=== PATIENT | male | born 1950 | race Caucasian/White ===

== ENCOUNTER 2017-01-27 11:15 | Inpatient (IN) | payer OTHER ==
[~2017-01-27] VITALS: Ht 172.7 cm; Wt 95.0 kg
[2017-01-27 11:05] VITALS: BP_SYST 64; BP_SYST 78; BP_SYST 92; BP_DIAS 46; BP_DIAS 58; O2SAT 94
[~2017-01-27 11:15] MED LIST: ASCO1CAP3 PO; ASPI81TA28 PO; CHOL1TAB4 PO; COEN1CAP7 PO; CYAN100048 PO; FLAX100019 PO; FLVHFA110; HYT/2 PO; INDO75CA2 PO; LISI-461 PO; MAGN250T8 PO; METO25TA56 PO; NRV/10 PO; NTRGSL/4 UT; NXM/40 PO; OMEG10007 PO; ROSU40TA PO; SERT-234 PO; TERA5CAP PO; Tumeric PO; VITACAP37 PO
[2017-01-27] MEDS ORDERED: SODIUM CHLORIDE 0.9% 1000ML 1,000 ML IV STA ×2 (11:42→12:17)
[2017-01-27] MEDS ORDERED: CYAN10005 PO (11:50)
[2017-01-27] MEDS ORDERED: ISOS30TA35 PO (11:50)
[2017-01-27] MEDS ORDERED: PLV75 PO (11:50)
[2017-01-27] MEDS ORDERED: CHOL1TAB42 PO (11:50)
[2017-01-27] MEDS ORDERED: INDO-24 PO (11:52)
--- NOTE | 2017-01-27 12:07 | DIAGNOSTIC IMAGING REPORT ---
CHEST ONE VIEW PORTABLE CLINICAL HISTORY: EVALUATE WEAKNESS dyspnea COMPARISON STUDY: 11/17/2014 FINDINGS: Prior median sternotomy. Diaphragms are smooth. Lungs are clear. Several old right-sided rib fractures. IMPRESSION: No acute process. Electronically signed by: Scott Beverly M.D. 01/27/2017 12:06 PM Dictated Date/Time: 01/27/2017 12:06 PM
[2017-01-27] MEDS ORDERED: SODIUM CHLORIDE 0.9% 250ML 250 ML IV STA (12:17)
[2017-01-27 12:29] LABS: BASO % 0.6 %; BASO ABS # 0.03 K/uL (0-0.2); COMPLETE YES; EOS % 1.6 %; HEMATOCRIT 39.1 % (42-52); IG% 0.2 %; LYMPH ABS # 0.59 K/uL (1.2-3.4); MEAN CELL VOLUME 90.9 fL (80-100); MEAN CORPUSCULAR HEMOGLOBIN 31.2 pg (25-34); MEAN CORPUSCULAR HGB CONC 34.3 g/dl (32-36); MEAN PLATELET VOLUME 9.8 fL (7.4-10.4); MONO % 6.5 %; NEUT % 79.1 %; PLATELET COUNT 102 K/uL (130-400)
[2017-01-27 12:40] LABS: URINE APPEARANCE CLEAR (CLEAR); URINE COLOR DK YELLOW; URINE EPITHELIAL CELL AUTO >30 /lpf (0-5); URINE NITRITE NEG (NEG); URINE SPECIFIC GRAVITY 1.022 (1.000-1.030); UROBILINOGEN NEG (NEG)
[2017-01-27 12:47] LABS: ALT/SGPT 34 U/L (12-78); AST/SGOT 24 U/L (15-37); BLOOD UREA NITROGEN 24 mg/dl (7-18); BUN/CREATININE RATIO 14.8 (10-20); CALCIUM 8.7 mg/dl (8.5-10.1); CARBON DIOXIDE 27 mmol/L (21-32); CHLORIDE 108 mmol/L (98-107); GLUCOSE 83 mg/dl (70-99); MAGNESIUM 2.7 mg/dl (1.8-2.4); POTASSIUM 4.9 mmol/L (3.5-5.1); SODIUM 142 mmol/L (136-145)
[2017-01-27 12:57] LABS: ALKALINE PHOSPHATASE 44 U/L (45-117); CKMB/CK RATIO 1.5 (0-3.0); THYROID STIMULATING HORMONE 0.997 uIu/ml (0.300-4.500)
[2017-01-27 12:58] LABS: URINE BILIRUBIN 1+ (NEG)
[2017-01-27 12:59] LABS: MANUAL MICROSCOPIC REQUIRED? NO; REVIEW REQ? YES
[2017-01-27 13:05] LABS: URINE PATH CASTS 1-5 GRANULAR CASTS /lpf (0)
[2017-01-27 13:15] LABS: INR 0.9 (0.9-1.1); PARTIAL THROMBOPLASTIN RATIO 0.9
[2017-01-27] MEDS ORDERED: SODIUM CHLORIDE 0.9% 1000ML 1,000 ML IV SCH (15:15)
[2017-01-27] MEDS ORDERED: ONDANSETRON INJ 2 MG/ML 2 ML VIAL IV PRN (15:15)
[2017-01-27] MEDS ORDERED: NITROGLYCERIN 0.4 MG SL PER TAB CHARGE SL PRN (15:15)
[2017-01-27] MEDS ORDERED: ACETAMINOPHEN 325 MG TAB PO PRN (15:15)
[2017-01-27 17:20] VITALS: BP 137/81; PULSE 57; TEMP 36.4; O2SAT 95; Ht 172.7 cm; Wt 95.0 kg
--- NOTE | 2017-01-27 17:32 | History and Physical ---
History & Physical Date & Time of Service: Jan 27, 2017 ~ 14:45 Chief Complaint: Almost Passed Out, Chest Pain Primary Care Physician: Miguel Suarez M.D. History of Present Illness 66 year old male who presents to the ER with a near syncopal event and chest pain that occurred at cardiac rehab. Patient has history of CAD with CABG x 5 in 1992, more recently patient underwent PRESTON to SVG 09/2016. He unfortunately has continued to have angina. He underwent a repeat cath 10/2016 and no lesions were amenable to intervention and medical management was advised. Patient has been attending cardiac rehab. He reports episodes of exertional chest pain daily and at cardiac rehab. He reports angina with minimal exertion. It usually improves with rest however he does report to using nitro on an almost daily basis. He reports the pain is located on the right side of his chest. Intensity is usually #5/10. He describes it as an ache. He denies any radiation of the pain. He denies any associated shortness of breath, nausea, or diaphposis. But he does note worsening exertional shortness of breath over the past several months. He denies orthopnea or lower extremity edema. Patient also has frequent near syncopal events after standing. Today while at cardiac rehab, patient does reports to getting angina while walking on the treadmill however once he rested the pain resolved. He then started using the stationary bike and when he stood up and reports he felt very lightheaded like he was going to pass out. BP was taken and was reported to be low. He was then referred to the ER for further evaluation. Aside from the aforementioned complaints, patient reports he otherwise has been feeling well. He denies fever and chills. No abdominal pain, vomiting, or diarrhea. No urinary symptoms. In the ER, patient's initial BP was 92/58 and 78/ 46 with standing. BPs improved with IVF. Patient is also noted to be bradycardic in the high 40s-50s. Creat is 1.6 (normal baseline). Initial troponin is negative, EKG does not show any acute ST changes. Past Medical/Surgical History Medical Problems: (1) Alcohol abuse Status: Chronic (2) BPH (benign prostatic hyperplasia) Status: Chronic (3) CAD (coronary artery disease) Permanent Comment: 1992 - CABG x 5 09/2016 - PRESTON to SVG of 10/2016 - repeat cath, no lesions amenable to intervention, medical management recommended Status: Chronic (4) Dyslipidemia Status: Chronic (5) GERD (gastroesophageal reflux disease) Status: Chronic (6) Gout Status: Chronic (7) HTN (hypertension) Status: Chronic (8) TIA (transient ischemic attack) Status: Chronic Surgical Problems: (1) H/O arthroscopic knee surgery Status: Chronic (2) H/O toe surgery Status: Chronic (3) History of carpal tunnel surgery Status: Chronic (4) History of partial colectomy Status: Chronic (5) History of tonsillectomy and adenoidectomy Status: Chronic Social History Smoking Status: Former Smoker Alcohol Use: 3-4 drinks/day Immunizations History of Influenza Vaccine: Yes Influenza Vaccine Date: Jun 19, 2015 History of Tetanus Vaccine?: Yes Tetanus Immunization Date: Aug 03, 2013 History of Pneumococcal: Yes Pneumococcal Date: Oct 29, 2015 Multi-Drug Resistant Organisms History of MDRO: No Allergies Coded Allergies: Iodinated Diagnostic Agents (Verified Allergy, Severe, ANAPHYLAXIS, ) noted from 09/25/13 Allopurinol (Unverified Adverse Reaction, Severe, SORE JOINTS, 01/27/17) Home Medications Scheduled Amlodipine Besylate (Amlodipine Besylate), 5 MG PO DAILY Ascorbic Acid (Vitamin C), 500 MG PO DAILY Aspirin (Aspirin Ec), 81 MG PO DAILY Cholecalciferol (Vitamin D), 5,000 UNITS PO DAILY Clopidogrel Bisulfate (Clopidogrel), 75 MG PO DAILY Coenzyme Q10 (Ubidecarenone) (Coq10), 1 TABLET PO DAILY Cyanocobalamin (Vitamin B-12), 1,000 MCG PO DAILY Esomeprazole Magnesium (Nexium), 40 MG PO Q2D Fish Oil ([place]-3), 1 CAP PO DAILY Flaxseed (Linseed) (Flaxseed Oil 1000 mg), 1 TAB PO DAILY Indomethacin (Indocin), 50 MG PO DAILY Isosorbide Mononitrate Ext Rel (Imdur Ext Rel), 30 MG PO DAILY Lisinopril (Zestril), 5 MG PO DAILY Magnesium Oxide (Mg Supplement (Magnesium), 250 MG PO DAILY Metoprolol Tartrate (Lopressor) (Lopressor), 25 MG PO BID Nitroglycerin (Nitrostat), 0.4 MG UT PRN Rosuvastatin Calcium (Crestor), 40 MG PO Sertraline (Zoloft), 150 MG PO DAILY Terazosin Hcl (Hytrin), 5 MG PO DAILY Vitamin E (E-400), 1 TAB PO DAILY [Tumeric], 500 MG PO DAILY Review of Systems Constitutional- no fever; no weight loss Eyes- no acute visual changes ENT- no sinus drainage; no pharyngitis Pulmonary- no cough, no wheezing, no shortness of breath Cardiac- (+) as noted above GI- no nausea, no vomiting, no diarrhea, no melena, no hematochezia - no dysuria, no hematuria Musculoskeletal- no arthralgias, no myalgias Derm- no rashes, no new skin lesions, no changing skin lesions Hematologic- no unusual bruising, no unusual bleeding Lymphatics- no adenopathy Endocrine- no polyuria or polydipsia; no heat or cold intolerance Neuro- no headaches, no focal neurologic symptoms Psych- no anxiety, no depression Physical Exam Vital Signs Date Time Temp Pulse Resp B/P (MAP) Pulse Ox O2 Delivery O2 Flow Rate FiO2 01/27/17 15:53 36.6 50 17 147/91 90 01/27/17 15:31 147/91 01/27/17 15:30 17 90 01/27/17 15:22 50 18 144/91 95 Room Air 01/27/17 15:21 144/91 01/27/17 15:00 51 16 98 01/27/17 14:55 47 14 95 01/27/17 14:50 50 17 95 01/27/17 14:45 51 14 95 01/27/17 14:40 49 12 96 01/27/17 14:35 48 16 95 01/27/17 14:30 51 19 123/85 95 01/27/17 14:25 52 19 94 01/27/17 14:20 49 20 95 01/27/17 14:15 49 24 92 01/27/17 14:10 49 20 97 01/27/17 14:05 48 16 96 01/27/17 14:00 51 16 95 01/27/17 13:55 53 17 96 01/27/17 13:50 48 13 92 01/27/17 13:45 49 14 93 01/27/17 13:40 49 16 95 01/27/17 13:35 50 13 91 01/27/17 13:30 50 18 95 01/27/17 13:25 50 13 96 01/27/17 13:20 52 15 94 01/27/17 13:15 51 17 123/85 94 01/27/17 13:10 52 15 95 01/27/17 13:05 53 16 96 01/27/17 13:00 52 15 92 01/27/17 12:55 53 13 95 01/27/17 12:50 56 21 94 01/27/17 12:45 53 15 94 01/27/17 12:42 112/81 01/27/17 12:41 56 116/78 54 123/80 59 112/81 01/27/17 12:41 16 01/27/17 12:41 123/80 01/27/17 12:40 55 17 95 01/27/17 12:40 94 Room Air 01/27/17 12:39 116/78 01/27/17 12:35 53 12 01/27/17 12:30 54 16 01/27/17 12:25 55 16 01/27/17 12:20 55 17 01/27/17 12:15 57 13 01/27/17 12:10 56 14 01/27/17 12:08 57 01/27/17 11:45 56 95 01/27/17 11:40 57 91 01/27/17 11:35 57 93 01/27/17 11:30 60 93 01/27/17 11:25 60 93 01/27/17 11:21 36.6 64 16 109/75 94 Room Air 01/27/17 11:18 109/75 01/27/17 11:05 64/ (21) 94 78/46 (57) 92/58 (69) General Appearance: no apparent distress Head: normocephalic Eyes: normal inspection ENT: hearing grossly normal Neck: supple, no JVD Respiratory/Chest: lungs clear, normal breath sounds, no respiratory distress Cardiovascular: regular rate, rhythm, no edema, normal peripheral pulses Abdomen/GI: normal bowel sounds, non tender, soft Extremities/Musculoskelatal: normal inspection, no calf tenderness Neurologic/Psych: no motor/sensory deficits, alert, normal mood/affect, oriented x 3 Skin: normal color, warm/dry Diagnostics Laboratory Results Results Past 24 Hours Test 01/27/17 00:00 01/27/17 12:05 01/27/17 12:55 Range/Units Urine Color DK YELLOW Urine Appearance CLEAR CLEAR Urine pH 5.0 4.5-7.5 Urine Specific [place] 1.022 1.000-1.030 Urine Protein TRACE NEG Urine Glucose (UA) NEG NEG Urine Ketones TRACE NEG Urine Occult Blood NEG NEG Urine Nitrite NEG NEG Urine Bilirubin 1+ NEG Urine Urobilinogen NEG NEG Urine Leukocyte Esterase SMALL NEG Urine WBC (Auto) 1-5 0-5 /hpf Urine RBC (Auto) 0-4 0-4 /hpf Urine Hyaline Casts (Auto) >30 0-5 /lpf Urine Epithelial Cells (Auto) >30 0-5 /lpf Urine Bacteria (Auto) NEG NEG Urine Crystals CALCIUM OXALATE NONE PRSENT Urine Pathogenic Casts 1-5 GRANULAR CASTS 0 /lpf White Blood Count 4.90 4.8-10.8 K/uL Red Blood Count 4.30 4.7-6.1 M/uL Hemoglobin 13.4 14.0-18.0 g/dL Hematocrit 39.1 42-52 % Mean Corpuscular Volume 90.9 80-100 fL Mean Corpuscular Hemoglobin 31.2 25-34 pg Mean Corpuscular Hemoglobin Concent 34.3 32-36 g/dl Platelet Count 102 130-400 K/uL Mean Platelet Volume 9.8 7.4-10.4 fL Neutrophils (%) (Auto) 79.1 % Lymphocytes (%) (Auto) 12.0 % Monocytes (%) (Auto) 6.5 % Eosinophils (%) (Auto) 1.6 % Basophils (%) (Auto) 0.6 % Neutrophils # (Auto) 3.87 1.4-6.5 K/uL Lymphocytes # (Auto) 0.59 1.2-3.4 K/uL Monocytes # (Auto) 0.32 0.11-0.59 K/uL Eosinophils # (Auto) 0.08 0-0.5 K/uL Basophils # (Auto) 0.03 0-0.2 K/uL RDW Standard Deviation 43.5 36.4-46.3 fL RDW Coefficient of Variation 13.2 11.5-14.5 % Immature Granulocyte % (Auto) 0.2 % Immature Granulocyte # (Auto) 0.01 0.00-0.02 K/uL Sodium Level 142 136-145 mmol/L Potassium Level 4.9 3.5-5.1 mmol/L Chloride Level 108 98-107 mmol/L Carbon Dioxide Level 27 21-32 mmol/L Anion Gap 7.0 3-11 mmol/L Blood Urea Nitrogen 24 7-18 mg/dl Creatinine 1.60 0.60-1.40 mg/dl Est Creatinine Clear Calc Drug Dose 51.0 ml/min Estimated GFR () 51.3 Estimated GFR (Non- 44.2 BUN/Creatinine Ratio 14.8 10-20 Random Glucose 83 70-99 mg/dl Calcium Level 8.7 8.5-10.1 mg/dl Magnesium Level 2.7 1.8-2.4 mg/dl Total Bilirubin 0.6 0.2-1 mg/dl Direct Bilirubin 0.1 0-0.2 mg/dl Aspartate Amino Transf (AST/SGOT) 24 15-37 U/L Alanine Aminotransferase (ALT/SGPT) 34 12-78 U/L Alkaline Phosphatase 44 45-117 U/L Total Creatine Kinase 106 39-308 U/L Creatine Kinase MB 1.6 0.5-3.6 ng/ml Creatine Kinase MB Ratio 1.5 0-3.0 Troponin I < 0.015 0-0.045 ng/ml Total Protein 6.7 6.4-8.2 gm/dl Albumin 3.9 3.4-5.0 gm/dl Thyroid Stimulating Hormone (TSH) 0.997 0.300-4.500 uIu/ml Prothrombin Time 10.0 9.0-12.0 SECONDS Prothromb Time International Ratio 0.9 0.9-1.1 Activated Partial Thromboplast Time 24.6 21.0-31.0 SECONDS Partial Thromboplastin Ratio 0.9 Diagnostic Radiology CXR IMPRESSION: No acute process. Impression Assessment and Plan NEAR SYNCOPE, CHEST PAIN, HYPOTENSION, ROD, HX CAD - admit to tele - patient presenting with a near syncopal event after completing cardiac rehab today; patient has a long standing history of angina, near syncope, and orthostasis; follows closely with Dr. Kaiser who has been hesitant to reduce cardiac meds as it may make his angina worse - hx CAD, CABG x 5 1992, PRESTON to SVG of 09/2016, repeat cath for continued chest pain 10/2016 - no lesions amendable to intervention, medical management recommended - in the ER, hypotension and positive orthostatic BPs - initial troponin negative, EKG without acute ST changes; continue to cycle cardiac enzymes - check resting echo - symptoms likely due to volume depletion with ROD (creat 1.6, normal baseline) in combination with use of multiple antihypertensives (amlodipine, metoprolol, isosorbide, lisinopril, and Terazosin), bradycardia possibly contributing as well - s/p 250ml bolus in ED, IVF currently running at 125ml/hr, will continue to complete liter - initial troponin negative, EKG does not show any acute ST changes - case discussed with Dr. Lopez - will hold all antihypertensives for now and defer re-dosing to cardio - continue ASA, Plavix, and statin HYPERMAGNESEMIA - IVF, hold Mg+ supplement HX TIA - continue ASA and Plavix GERD - continue PPI BPH - continue Terazosin ALCOHOL ABUSE - patient counseled regarding tobacco cessation - denies history of withdrawal in the past DVT PROPHYLAXIS - SQ Heparin DISPO - In my clinical judgment this beneficiary meets acute admission criteria, established by [facility], that includes being hospitalized through two midnights. ATTENDING ADDENDUM care coordinated with TIMBO Hill please refer to her notes for full details, I agree with her notes patient seen and examined, records reviewed by myself as well on exam, patient seen sitting up in bed, pleasant, alert states he is starting to feel better no active chest pain, dyspnea, dizziness no other symptoms VS noted and reviewed oriented x 3 , not in distress, speaks in sentences with no effort nor accessory muscle use normal rate, regular rhythm, no murmurs clear breath sounds bilaterally non distended, soft, nontender no bipedal edema, erythema, warmth no neuro deficits Hg 13.4 Crea 1.6 ekg: sinus bradycardia, 1st degree av block ASSESSMENT/PLAN> HYPOTENSION, AND BRADYCARDIA, NEAR SYNCOPE -- component of dehydration with elevated crea IV fluids -- hold BP meds except Metoprolol -- Cardiology also consulted HISTORY OF CAD -- continue ASA, Plavix other diagnoses and plan of care as per TIMBO Myers MD VTE Prophylaxis VTE Risk Assessment Done? Y/N: Yes Risk Level: Moderate
--- NOTE | 2017-01-27 18:14 | EMERGENCY ROOM VISIT NOTE ---
History Report prepared by Jose: Amarilys Wright Under the Supervision of: Dr. Chris Titus M.D. First contact with patient: 11:42 Chief Complaint: SYNCOPE (NEAR SYNCOPE) Stated Complaint: SYNCOPE Nursing Triage Summary: Pt. was at Cardiac rehab at [facility] today and experience syncope with a BP systolic of 64. Cardiac rehab staff brought him to the ED. History of Present Illness The patient is a 66 year old male who presents to the Emergency Room with complaints of a sudden near syncopal episode that occurred prior to arrival. The patient states that he has gone to Cardiac Rehabilitation since September. He reports that he had a stent placed in September and states that since then he has experienced angina with exertion. The patient states that he follows with [facility] team. He states that he was at Cardiac Rehabilitation this morning doing his normal routine. The patient states that he did the hand pedals and felt fine. He states while on the bike he developed some slight chest pain. The patient additionally notes that he developed chest pain placed while on the treadmill and became lightheaded. He reports that when he woke up this morning he felt slightly dizzy. The patient states that after being on the treadmill he had a near syncopal episode. According to nursing notes, the patient became hypotensive there. The patient additionally notes diarrhea today. The patient reports a surgical history of bypass in 1992. Pt denies LOC, headache, fevers, chills, diaphoresis, visual changes, neck pain, breathing difficulties, nausea, vomiting, abdominal pain, back pain, melena, hematochezia, urinary symptoms, numbness, weakness, lymphadenopathy, rash, or other complaints. Source of History: patient, nursing staff (notes) Onset: prior to arrival Position: other (global) Quality: other (near syncopal episode) Timing: other (sudden) Associated Symptoms: + chest pain Note: Associated Symptoms: lightheaded, dizzy Review of Systems See HPI for pertinent positives and negatives. A total of ten systems were reviewed and were otherwise negative. Past Medical & Surgical Medical Problems: (1) Alcohol abuse (2) BPH (benign prostatic hyperplasia) (3) CAD (coronary artery disease) (4) Calculus Of Ureter (5) Coronary Atherosclerosis Of [place] Coronary Vessel (6) Depressive Disorder Nec (7) Dyslipidemia (8) Esophageal Reflux (9) GERD (gastroesophageal reflux disease) (10) Gout (11) Gout Nos (12) History Of Tobacco Use (13) HTN (hypertension) (14) Hyperlipidemia Nec/Nos (15) Hypertension Nos (16) Malignant [place] Colon Nos (17) TIA (transient ischemic attack) Surgical Problems: (1) Aortocoronary Bypass (2) H/O arthroscopic knee surgery (3) H/O toe surgery (4) History of carpal tunnel surgery (5) History of partial colectomy (6) History of tonsillectomy and adenoidectomy Family History Cancer Stroke Social History Smoking Status: Former Smoker Alcohol Use: none Marital Status: Housing Status: lives with family Occupation Status: retired Current/Historical Medications Scheduled Amlodipine Besylate (Amlodipine Besylate), 5 MG PO DAILY Ascorbic Acid (Vitamin C), 500 MG PO DAILY Aspirin (Aspirin Ec), 81 MG PO DAILY Cholecalciferol (Vitamin D), 5,000 UNITS PO DAILY Clopidogrel Bisulfate (Clopidogrel), 75 MG PO DAILY Coenzyme Q10 (Ubidecarenone) (Coq10), 1 TABLET PO DAILY Cyanocobalamin (Vitamin B-12), 1,000 MCG PO DAILY Esomeprazole Magnesium (Nexium), 40 MG PO Q2D Fish Oil ([place]-3), 1 CAP PO DAILY Flaxseed (Linseed) (Flaxseed Oil 1000 mg), 1 TAB PO DAILY Indomethacin (Indocin), 50 MG PO DAILY Isosorbide Mononitrate Ext Rel (Imdur Ext Rel), 30 MG PO DAILY Lisinopril (Zestril), 5 MG PO DAILY Magnesium Oxide (Mg Supplement (Magnesium), 250 MG PO DAILY Metoprolol Tartrate (Lopressor) (Lopressor), 25 MG PO BID Nitroglycerin (Nitrostat), 0.4 MG UT PRN Rosuvastatin Calcium (Crestor), 40 MG PO Sertraline (Zoloft), 150 MG PO DAILY Terazosin Hcl (Hytrin), 5 MG PO DAILY Vitamin E (E-400), 1 TAB PO DAILY [Tumeric], 500 MG PO DAILY Allergies Coded Allergies: Iodinated Diagnostic Agents (Verified Allergy, Severe, ANAPHYLAXIS, ) noted from 09/25/13 Allopurinol (Unverified Adverse Reaction, Severe, SORE JOINTS, 01/27/17) Physical Exam Vital Signs Date Time Temp Pulse Resp B/P (MAP) Pulse Ox O2 Delivery O2 Flow Rate FiO2 01/27/17 15:00 51 16 98 01/27/17 14:55 47 14 95 01/27/17 14:50 50 17 95 01/27/17 14:45 51 14 95 01/27/17 14:40 49 12 96 01/27/17 14:35 48 16 95 01/27/17 14:30 51 19 123/85 95 01/27/17 14:25 52 19 94 01/27/17 14:20 49 20 95 01/27/17 14:15 49 24 92 01/27/17 14:10 49 20 97 01/27/17 14:05 48 16 96 01/27/17 14:00 51 16 95 01/27/17 13:55 53 17 96 01/27/17 13:50 48 13 92 01/27/17 13:45 49 14 93 01/27/17 13:40 49 16 95 01/27/17 13:35 50 13 91 01/27/17 13:30 50 18 95 01/27/17 13:25 50 13 96 01/27/17 13:20 52 15 94 01/27/17 13:15 51 17 123/85 94 01/27/17 13:10 52 15 95 01/27/17 13:05 53 16 96 01/27/17 13:00 52 15 92 01/27/17 12:55 53 13 95 01/27/17 12:50 56 21 94 01/27/17 12:45 53 15 94 01/27/17 12:42 112/81 01/27/17 12:41 56 116/78 54 123/80 59 112/81 01/27/17 12:41 16 01/27/17 12:41 123/80 01/27/17 12:40 55 17 95 01/27/17 12:40 94 Room Air 01/27/17 12:39 116/78 01/27/17 12:35 53 12 01/27/17 12:30 54 16 01/27/17 12:25 55 16 01/27/17 12:20 55 17 01/27/17 12:15 57 13 01/27/17 12:10 56 14 01/27/17 12:08 57 01/27/17 11:45 56 95 01/27/17 11:40 57 91 01/27/17 11:35 57 93 01/27/17 11:30 60 93 01/27/17 11:25 60 93 01/27/17 11:21 36.6 64 16 109/75 94 Room Air 01/27/17 11:18 109/75 01/27/17 11:05 64/ (21) 94 78/46 (57) 92/58 (69) Physical Exam GENERAL: Awake, alert, well-appearing, in no distress HENT: Normocephalic, atraumatic. Oropharynx unremarkable. EYES: Normal conjunctiva. Sclera non-icteric. NECK: Supple. No nuchal rigidity. FROM. No JVD. RESPIRATORY: Clear to auscultation. CARDIAC: Regular rate, normal rhythm. Extremities warm and well perfused. Pulses equal. ABDOMEN: Soft, non-distended. No tenderness to palpation. No rebound or guarding. No masses. RECTAL: Deferred. MUSCULOSKELETAL: Chest examination reveals no tenderness. The back is symmetrical on inspection without obvious abnormality. There is no CVA tenderness to palpation. No joint edema. LOWER EXTREMITIES: Calves are equal size bilaterally and non-tender. No edema. No discoloration. NEURO: Normal sensorium. No sensory or motor deficits noted. SKIN: No rash or jaundice noted. Medical Decision & Procedures ER Provider Diagnostic Interpretation: X-ray: Per my interpretation, radiologist review. CHEST ONE VIEW PORTABLE CLINICAL HISTORY: EVALUATE WEAKNESS dyspnea COMPARISON STUDY: 11/17/2014 FINDINGS: Prior median sternotomy. Diaphragms are smooth. Lungs are clear. Several old right-sided rib fractures. IMPRESSION: No acute process. Electronically signed by: Scott Beverly M.D. 01/27/2017 12:06 PM Dictated Date/Time: 01/27/2017 12:06 PM Laboratory Results 01/27/17 12:05 Red Blood Count 4.30, Mean Corpuscular Volume 90.9, Mean Corpuscular Hemoglobin 31.2, Mean Corpuscular Hemoglobin Concent 34.3, Mean Platelet Volume 9.8, Neutrophils (%) (Auto) 79.1, Lymphocytes (%) (Auto) 12.0, Monocytes (%) (Auto) 6.5, Eosinophils (%) (Auto) 1.6, Basophils (%) (Auto) 0.6, Neutrophils # (Auto) 3.87, Lymphocytes # (Auto) 0.59, Monocytes # (Auto) 0.32, Eosinophils # (Auto) 0.08, Basophils # (Auto) 0.03 01/27/17 12:05 Test 01/27/17 00:00 01/27/17 12:05 01/27/17 12:55 Urine Color DK YELLOW Urine Appearance CLEAR (CLEAR) Urine pH 5.0 (4.5-7.5) Urine Specific Shannon 1.022 (1.000-1.030) Urine Protein TRACE (NEG) Urine Glucose (UA) NEG (NEG) Urine Ketones TRACE (NEG) Urine Occult Blood NEG (NEG) Urine Nitrite NEG (NEG) Urine Bilirubin 1+ (NEG) Urine Urobilinogen NEG (NEG) Urine Leukocyte Esterase SMALL (NEG) Urine WBC (Auto) 1-5 /hpf (0-5) Urine RBC (Auto) 0-4 /hpf (0-4) Urine Hyaline Casts (Auto) >30 /lpf (0-5) Urine Epithelial Cells (Auto) >30 /lpf (0-5) Urine Bacteria (Auto) NEG (NEG) Urine Crystals CALCIUM OXALATE (NONE Urine Pathogenic Casts 1-5 GRANULAR CASTS /lpf (0) White Blood Count 4.90 K/uL (4.8-10.8) Red Blood Count 4.30 M/uL (4.7-6.1) Hemoglobin 13.4 g/dL (14.0-18.0) Hematocrit 39.1 % (42-52) Mean Corpuscular Volume 90.9 fL (80-100) Mean Corpuscular Hemoglobin 31.2 pg (25-34) Mean Corpuscular Hemoglobin Concent 34.3 g/dl (32-36) Platelet Count 102 K/uL (130-400) Mean Platelet Volume 9.8 fL (7.4-10.4) Neutrophils (%) (Auto) 79.1 % Lymphocytes (%) (Auto) 12.0 % Monocytes (%) (Auto) 6.5 % Eosinophils (%) (Auto) 1.6 % Basophils (%) (Auto) 0.6 % Neutrophils # (Auto) 3.87 K/uL (1.4-6.5) Lymphocytes # (Auto) 0.59 K/uL (1.2-3.4) Monocytes # (Auto) 0.32 K/uL (0.11-0.59) Eosinophils # (Auto) 0.08 K/uL (0-0.5) Basophils # (Auto) 0.03 K/uL (0-0.2) RDW Standard Deviation 43.5 fL (36.4-46.3) RDW Coefficient of Variation 13.2 % (11.5-14.5) Immature Granulocyte % (Auto) 0.2 % Immature Granulocyte # (Auto) 0.01 K/uL (0.00-0.02) Anion Gap 7.0 mmol/L (3-11) Est Creatinine Clear Calc Drug Dose 51.0 ml/min Estimated GFR () 51.3 Estimated GFR (Non- 44.2 BUN/Creatinine Ratio 14.8 (10-20) Calcium Level 8.7 mg/dl (8.5-10.1) Magnesium Level 2.7 mg/dl (1.8-2.4) Total Bilirubin 0.6 mg/dl (0.2-1) Direct Bilirubin 0.1 mg/dl (0-0.2) Aspartate Amino Transf (AST/SGOT) 24 U/L (15-37) Alanine Aminotransferase (ALT/SGPT) 34 U/L (12-78) Alkaline Phosphatase 44 U/L (45-117) Total Creatine Kinase 106 U/L (39-308) Total Protein 6.7 gm/dl (6.4-8.2) Albumin 3.9 gm/dl (3.4-5.0) Thyroid Stimulating Hormone (TSH) 0.997 uIu/ml (0.300-4.500) Prothrombin Time 10.0 SECONDS (9.0-12.0) Prothromb Time International Ratio 0.9 (0.9-1.1) Activated Partial Thromboplast Time 24.6 SECONDS (21.0-31.0) Partial Thromboplastin Ratio 0.9 Laboratory results reviewed by me Medications Administered Medications (Trade) Dose Ordered Sig/Donnie Route Start Time Stop Time Status Last Admin Dose Admin Sodium Chloride 1,000 ml @ 125 mls/hr Q8H STAT IV 01/27/17 11:42 01/27/17 16:35 DC 01/27/17 13:14 125 MLS/HR Sodium Chloride 250 ml @ 999 mls/hr Q16M STAT IV 01/27/17 12:17 01/27/17 12:32 DC 01/27/17 12:39 999 MLS/HR Sodium Chloride 1,000 ml @ 125 mls/hr Q8H STAT IV 01/27/17 12:17 01/27/17 16:35 DC 01/27/17 12:17 125 MLS/HR ECG Indication: chest pain, syncope Rate (beats per minute): 55 Rhythm: normal sinus Findings: 1st degree AV block, nonspecific-ST abn, no acute ischemic change, no ectopy Comparison ECG Date: 11/20/14 Change: When compared to EKG done on 11/20/14, T wave inversions have resolved. ED Course 1142: Ordered Sodium Chloride 1000 ml @ 125 mls/hr IV. 1213: The patient was evaluated in room A4B. A complete history and physical exam was performed. 1217: Ordered Sodium Chloride 1000 ml @ 125 mls/hr IV, Sodium Chloride 250 ml @ 999 mls/hr IV. 1339: I was notified that Dr. Lopez is in a cath procedure and will call back later. 1343: I reevaluated the patient and he is doing well. I updated him at this time. 1413: I discussed the patients case with Dr. Lopez, [facility]. He recommends that the patient is evaluated for further treatment. 1422: I discussed the patients case with Marquis Blanchard. She is going to evaluate the patient for further treatment. 1425: I reevaluated the patient and he was doing well. I discussed the exam findings with him and I discussed the treatment plan. He verbalized complete understanding and agreement. He is going to be evaluated for further treatment. Medical Decision Medication Reconciliation: I attest that I have personally reviewed the patient' s current medication list Blood pressure screening: Patient was found to have a low blood pressure. Prior records/ancillary studies reviewed. Triage Nursing notes reviewed and agree them. The patient's history was concerning for near syncope. Differential diagnosis: Etiologies such as vasovagal event, infection, hypoglycemia, electrolyte abnormalities, cardiac sources, intracerebral event, toxicologic, neurologic, as well as others were entertained. Physical examination: As above. Orthostatic positive. ER treatment provided: IV hydration with normal saline On reassessment the patient felt better. Diagnostics interpretation by me: ECG: Sinus bradycardia. The labs revealed an unremarkable CBC and chemistry panel. Normal cardiac markers. Imaging studies: Chest x-ray as above Consultation: A consultation was placed with the [facility] recordings librarian, Dr. Lopez. The case was discussed and diagnostics were reviewed. He recommended admission given the situation. Consultation was made with the [facility] hospitalist and the patient was evaluated for further management. Patient was reassessed. He was comfortable with the plan. Consults Time Called: [phone] Consulting Physician: Dr. Lopez, [facility] Returned Call: [phone] I discussed the patients case with Dr. Lopez, [facility]. He recommends that the patient is evaluated for further treatment. Additional Consults: Time Called: [phone] Consulted Physician: Marquis Blanchard Returned Call: [phone] Additional Comments: I discussed the patients case with Marquis Blanchard. She is going to evaluate the patient for further treatment. Impression Primary Impression: Near syncope Additional Impression: Orthostatic hypotension Scribe Attestation The scribe's documentation has been prepared under my direction and personally reviewed by me in its entirety. I confirm that the note above accurately reflects all work, treatment, procedures, and medical decision making performed by me. Departure Information Dispostion Being Evaluated By Hospitalist Referrals Miguel Suarez M.D. (PCP) Problem Qualifiers
[2017-01-27 19:02] VITALS: BP 143/83; PULSE 52; TEMP 36.5; O2SAT 96
--- NOTE | 2017-01-27 20:09 | CARDIOLOGY CONSULTATION ---
DATE OF CONSULTATION: 01/27/2017 The patient seen and examined. Chart, medications, telemetry reviewed. REFERRING: Sheree Hill. PRIMARY CARE PHYSICIAN: Dr. Glez. PRIMARY PEAR PICKER: Dr. Kaiser. INDICATIONS: Near syncope. HISTORY OF PRESENT ILLNESS: The patient is a 66-year-old male with complex cardiac history which includes atherosclerotic coronary disease with prior coronary artery bypass grafting x5 in 1992 with chronic angina pectoris. He has undergone prior cardiac catheterizations with patient receiving a drug-eluting stent to the obtuse marginal. Repeat cardiac catheterization demonstrated no progression of disease or high grade obstruction to account for symptoms in October with diffuse disease present. He has been managed medically as well as through cardiac rehabilitation, presents today noting typical symptoms of chest pain usually brought on by exercise and while on treadmill he persisted with symptoms while at rehab today and then on attempting to be discharged was found to be hypotensive and lightheaded. He was transferred to the Emergency Room, his symptoms have resolved with IV fluids. He denies chest pains currently. Notes blood pressures have been trending low after exertion. Notes no distinct description of his heart rates. He has had similar episodes of orthostatic hypotension after exercise at rehabilitation in December. He denies fevers, chills or sweats. Notes no cough, hoarseness, wheeze or hemoptysis. Weight has been stable and trending upward. Notes no headache or visual changes. Notes no bleeding difficulties. Has been taking medications rather faithfully but did admit missing Plavix 3 days last week. ALLERGIES: IODINATED CONTRAST AND ALLOPURINOL. MEDICATIONS: Clopidogrel 75 mg p.o. daily, esomeprazole 40 mg p.o. day, Rosuvastatin 40 mg p.o. daily, lisinopril 5 mg p.o. daily, amlodipine 5 mg per day, isosorbide mononitrate 30 mg p.o. daily, aspirin 81 mg per day, metoprolol 25 mg twice per day, terazosin 5 mg at bedtime, vitamin B, vitamin E, Coenzyme Q10, magnesium, flaxseed oil, omega-3 fish oils, turmeric and sertraline 100 mg 1/2 tablet daily. PAST SURGICAL HISTORY: As described notable for coronary artery bypass grafting x5 in 1992, carpal tunnel surgery, partial colectomy in 2013, remote tonsillectomy and as described cardiac catheterizations in September and October 2016. FAMILY HISTORY: Positive for heart disease. 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 He is a nonsmoker, uses occasional alcoholic beverages with moderate alcohol intake. PHYSICAL EXAMINATION: VITAL SIGNS: Heart rate is 50, blood pressure is 147/91, after initial ER presentation blood pressures in the low teens. HEENT: Normocephalic, atraumatic. Nares without discharge. Throat was clear. NECK: Supple without thyromegaly, lymphadenopathy, JVD or bruit. LUNGS: Clear to auscultation. CARDIOVASCULAR: Regular with normal S1, S2. There is no murmur, gallop or rub. ABDOMEN: Obese, soft, nontender. There is no palpable hepatosplenomegaly. There is no hepatojugular reflux. EXTREMITIES: Without cyanosis or clubbing. There is no peripheral edema. There are intact distal pulses. DATA: Echocardiogram done 07/29/2016 demonstrates normal left ventricular size and function, mild aortic sclerosis without stenosis. Cardiac catheterizations report of 11/04/2016 demonstrated patent VICTORIA graft to the LAD with mid and distal narrowing of the left anterior descending up to 50%, patent TERRY graft to the right coronary artery, saphenous vein graft to an OM1, with patent stent to the OM1, saphenous vein graft to the obtuse marginal 2 with serial 50% stenosis x2 with FFR, both lesions not hemodynamically significant. LABORATORY STUDIES: Today, white cell count is 4.9, hemoglobin is 13.4, hematocrit is 39.1. Sodium is 142, potassium is 4.9, chloride is 108, bicarbonate is 27, BUN is 24, creatinine is 1.6, magnesium is 2.7, troponin is negative. TSH is 0.997. Chest x-ray reveals no infiltrate or edema. IMPRESSION: The patient is a 66-year-old male with known coronary disease with chronic chest pain, angina class 2-3 with recent difficulties with orthostatic hypotension post-exercise, participating in cardiac rehab and experienced similar episode today. He notes symptoms are usually precipitated by low level activity, chest pressure and pain. Symptoms have been slightly more pronounced this past 1-2 weeks. Notes no fevers, chills or productive cough to account for complaints. PLAN: Will be to observe on telemetry overnight. Continue aspirin and clopidogrel. I will hold terazosin this evening and hold lisinopril in a.m. and may also need to reduce beta-jeffery, though will assess heart rate response overnight. Echocardiogram will be repeated this admission.
[2017-01-27] MEDS: METOPROLOL TARTRATE 25 MG TAB PO SCH (20:44)
[2017-01-27] MEDS: HEPARIN SOD 5000 UNIT/0.5 ML CARP SQ SCH (20:45)
[2017-01-27] MEDS ORDERED: ROSUVASTATIN CALCIUM 20 MG TAB PO SCH (21:00)
[2017-01-27] MEDS ORDERED: ENOXAPARIN 40 MG/0.4 ML SYR SC SCH (21:00)
[2017-01-27] MEDS ORDERED: NURSING VERBAL MED ORDER ONE (21:30)
[2017-01-27] MEDS ORDERED: GUAIFENESIN 200 MG TAB PO PRN (22:00)
[2017-01-27 23:52] VITALS: BP 175/105; PULSE 54; TEMP 36.7; O2SAT 96
[2017-01-28] VITALS (8 sets, daily range): BP systolic 126–161; BP diastolic 76–97; PULSE 52–64; TEMP 36.5–36.8; O2SAT 94–96
[2017-01-28 07:35] LABS: HEMATOCRIT 39.3 % (42-52); MEAN CORPUSCULAR HEMOGLOBIN 30.8 pg (25-34); MEAN CORPUSCULAR HGB CONC 33.8 g/dl (32-36); MEAN PLATELET VOLUME 10.2 fL (7.4-10.4); PLATELET COUNT 100 K/uL (130-400); RED BLOOD COUNT 4.32 M/uL (4.7-6.1)
[2017-01-28] MEDS: HEPARIN SOD 5000 UNIT/0.5 ML CARP SQ SCH (07:55)
[2017-01-28 08:07] LABS: BUN/CREATININE RATIO 14.8 (10-20); CREATININE 1.3 mg/dl (0.60-1.40); MAGNESIUM 2.6 mg/dl (1.8-2.4); POTASSIUM 4.6 mmol/L (3.5-5.1)
[2017-01-28 08:30] LABS: CALCIUM 8.2 mg/dl (8.5-10.1)
[2017-01-28] MEDS: METOPROLOL TARTRATE 25 MG TAB PO SCH (08:48)
[2017-01-28] MEDS ORDERED: TOCOPHERYL, DL-ALPHA 400 INTER.UNIT CAP PO SCH (09:00)
[2017-01-28] MEDS ORDERED: SERTRALINE HCL 50 MG TAB PO SCH (09:00)
[2017-01-28] MEDS ORDERED: PANTOprazole SOD 40 MG TAB PO SCH (09:00)
[2017-01-28] MEDS ORDERED: CYANOCOBALAMIN 500 MCG TAB (VIT B-12) PO SCH (09:00)
[2017-01-28] MEDS ORDERED: CHOLECALCIFEROL 1000 INTER.UNIT TAB PO SCH (09:00)
[2017-01-28] MEDS ORDERED: OMEGA-3 (PURIFIED FISH OIL) 1 GM CAP PO SCH (09:00)
[2017-01-28] MEDS ORDERED: ASPIRIN 81 MG ECTAB PO SCH (09:00)
[2017-01-28] MEDS ORDERED: FLAXSEED PO SCH (09:00)
[2017-01-28] MEDS ORDERED: CLOPIDOGREL BISULFATE 75 MG TAB PO SCH (09:00)
[2017-01-28] MEDS ORDERED: ASCORBIC ACID 500 MG TAB PO SCH (09:00)
--- NOTE | 2017-01-28 12:46 | ECHOCARDIOGRAM REPORT ---
*NOTICE TO RECEIVING [employer] This information is strictly Confidential and protected under [place] law. [place] law prohibits you from making any further disclosure of this information unless further disclosure is expressly permitted by the written consent of the person to whom it pertains or is authorized by law. A general authorization for the release of medical or other information is not sufficient for this purpose. Hospital accepts no responsibility if the information is made available to any other person, INCLUDING THE PATIENT. Interpretation Summary * Name: DOROTA WINTER Study Date: 01/28/2017 06:51 AM BP: 138/77 mmHg * Patient Location: [facility] HR: 58 * : 1950 (M/d/yyyy) Gender: Male Height: 68 in * Age: 66 yrs Ethnicity: [place] Weight: 211 lb * Ordering Physician: Sheree Hill * Performed By: Gisselle Cavanaugh RDCS * * Reason For Study: Syncope * BSA: 2.1 m2 * -- Conclusions -- * The left ventricle is normal in size. * There is mild concentric left ventricular hypertrophy. * The left ventricular wall motion is normal. * Ejection Fraction = 55-60%. * Aortic valve sclerosis mild, without significant aortic valvular stenosis. * There is no pericardial effusion. * The aortic root is normal size. Procedure Details * A complete two-dimensional transthoracic echocardiogram was performed (2D, M-mode, Doppler and color flow Doppler). Left Ventricle * The left ventricle is normal in size. * There is mild concentric left ventricular hypertrophy. * Ejection Fraction = 55-60%. * Left ventricular systolic function is normal. * The left ventricular wall motion is normal. Right Ventricle * The right ventricle is normal in size and function. Atria * The left atrial size is normal. * Right atrial size is normal. * No ASD detected; PFO is not assessed. Mitral Valve * The mitral valve is normal. * There is no mitral valve stenosis. * There is trace mitral regurgitation. Tricuspid Valve * The tricuspid valve is normal. * There is no tricuspid stenosis. * There is trace tricuspid regurgitation. Aortic Valve * The aortic valve is trileaflet. * Aortic valve sclerosis mild, without significant aortic valvular stenosis. * No hemodynamically significant valvular aortic stenosis. * No aortic regurgitation is present. Pulmonic Valve * The pulmonic valve is not well visualized. Great Vessels * The aortic root is normal size. Pericardium/Pleural * There is no pericardial effusion. Great Vessels * Normal inferior vena cava diameter and respiratory variation suggests normal central venous pressure. MMode 2D Measurements and Calculations IVSd 1.2 cm LVIDd 5.2 cm LVIDs 3.6 cm LVPWd 1.2 cm IVS/LVPW 1.0 FS 30.7 % EDV(Teich) 129.7 ml ESV(Teich) 54.7 ml EF(Teich) 57.9 % EDV(cubed) 140.9 ml ESV(cubed) 46.9 ml EF(cubed) 66.7 % LV mass(C)d 237.6 grams LV mass(C)dI 113.7 grams/m\S\2 SV(Teich) 75.1 ml SI(Teich) 35.9 ml/m\S\2 SV(cubed) 94.0 ml SI(cubed) 45.0 ml/m\S\2 Ao root diam 3.5 cm Ao root area 9.6 cm\S\2 ACS 2.2 cm LA dimension 4.3 cm asc Aorta Diam 3.2 cm LA/Ao 1.2 LVOT diam 2.0 cm LVOT area 3.3 cm\S\2 LVAd ap4 28.1 cm\S\2 LVLd ap4 8.4 cm EDV(MOD-sp4) 78.5 ml EDV(sp4-el) 80.3 ml LVAs ap4 16.6 cm\S\2 LVLs ap4 7.2 cm ESV(MOD-sp4) 33.2 ml ESV(sp4-el) 32.6 ml EF(MOD-sp4) 57.7 % EF(sp4-el) 59.4 % LVAd ap2 26.6 cm\S\2 LVLd ap2 7.6 cm EDV(MOD-sp2) 77.4 ml EDV(sp2-el) 79.6 ml LVAs ap2 16.3 cm\S\2 LVLs ap2 6.6 cm ESV(MOD-sp2) 32.4 ml ESV(sp2-el) 34.1 ml EF(MOD-sp2) 58.1 % EF(sp2-el) 57.2 % LVLd %diff -10.32 % EDV(MOD-bp) 81.7 ml LVLs %diff -7.91 % ESV(MOD-bp) 33.3 ml EF(MOD-bp) 59.2 % SV(MOD-sp4) 45.2 ml SI(MOD-sp4) 21.6 ml/m\S\2 SV(MOD-sp2) 45.0 ml SI(MOD-sp2) 21.5 ml/m\S\2 SV(MOD-bp) 48.4 ml SI(MOD-bp) 23.1 ml/m\S\2 SV(sp4-el) 47.7 ml SI(sp4-el) 22.8 ml/m\S\2 SV(sp2-el) 45.5 ml SI(sp2-el) 21.8 ml/m\S\2 Doppler Measurements and Calculations MV E max jared 84.9 cm/sec MV A max jared 65.0 cm/sec MV E/A 1.3 MV dec time 0.19 sec Ao V2 max 125.5 cm/sec Ao max PG 6.3 mmHg Ao max PG (full) 2.6 mmHg MUNIR(V,A) 2.5 cm\S\2 MUNIR(V,D) 2.5 cm\S\2 LV V1 max PG 3.7 mmHg LV V1 max 96.0 cm/sec PA V2 max 143.9 cm/sec PA max PG 8.3 mmHg PA acc slope 493.6 cm/sec\S\2 PA acc time 0.13 sec PI max jared 164.2 cm/sec PI max PG 10.8 mmHg PI dec slope 119.6 cm/sec\S\2 PI P1/2t 402.4 msec PA pr(Accel) 22.0 mmHg
--- NOTE | 2017-01-28 15:10 | CARDIOLOGY PROGRESS NOTE ---
DATE: 01/28/2017 DATE: 01/28/2017. The patient seen and examined. Chart, medications, telemetry reviewed. SUBJECTIVE: No arrhythmias overnight. Notes no complaints. Chest pain is not specifically present. He has been ambulatory in room and outside the hallway without complaints. Blood pressures have been somewhat labile. No associated orthostatic changes or syncope. OBJECTIVE: VITAL SIGNS: Heart rate is 55. Telemetry reveals heart rates between 45 and 55 at night, blood pressure this morning was 138/77. Current exam 126/85, O2 saturations 94% on room air. NECK: Thick. There is no jugular venous distention. LUNGS: Clear. CARDIOVASCULAR EXAMINATION: Regular, bradycardic. There is no S3 gallop. ABDOMEN: Soft, nontender. EXTREMITIES: Without cyanosis or clubbing. There is no peripheral edema. LABORATORY STUDIES: Sodium is 144, potassium is 4.6, chloride is 110, bicarbonate 28, BUN 19, creatinine is 1.3, calcium is 8.2. Troponins are negative x2. EKG reveals no acute changes. Echocardiogram demonstrates preserved LV systolic function with mild left ventricular hypertrophy. IMPRESSION: A 66-year-old male with exercise-induced orthostasis 2 episodes, 1 in December and yesterday, mildly symptomatic postexercise. He has had chronic chest pain which is being managed medically. RECOMMENDATIONS: We will make adjustments in medical therapy to aid in symptoms. Hold cardiac rehab and still see him back by cardiology. Specific medications change being made, metoprolol tartrate will be discontinued and changed to metoprolol succinate at 25 mg once per day given bradycardiac at night. Will reduce amlodipine at 2.5 mg per day with this medication as well as terazosin to be taken at the evening hours. Lisinopril will be continued in early a.m. with a.m. meds. Nocturnal changes to be initiated on date after discharge having received medications this morning. No strenuous activities until patient seen in return. Follow up with cardiology 2-3 weeks' time.
--- NOTE | 2017-01-28 16:40 | Progress Note ---
Medicine Progress Note Date & Time of Visit: Jan 28, 2017 at 16:40. Subjective patient seen walking around in his room in good spirits states he feels better overall no dizziness, near syncope, chest pain, dyspnea, palpitations no problems ambulating today states he is ready and would like to be discharged today Objective Last 8 Hrs Date Time Temp Pulse Resp B/P (MAP) Pulse Ox O2 Delivery O2 Flow Rate FiO2 01/28/17 16:00 Room Air 01/28/17 14:42 36.5 57 18 139/81 (100) 96 Room Air 01/28/17 12:00 Room Air 01/28/17 11:14 36.5 55 20 126/85 (99) 94 Room Air 01/28/17 08:50 64 Physical Exam: General- oriented x 3, not in distress, speaks in sentences with no effort Eyes- EOMI, anicteric ENT- oropharynx clear Neck- supple, no JVD, no adenopathy Lungs- clear breath sounds bilaterally Heart- regular rhythm; no murmur, normal rate Abdomen- normal bowel sounds, soft, nontender Extremities- no pretibial edema, no calf tenderness Neuro- alert, oriented x 3;no gross focal deficits Skin- warm & dry Laboratory Results: Last 24 Hours Test 01/27/17 18:00 01/27/17 18:15 01/28/17 00:00 01/28/17 00:30 Creatine Kinase MB Ratio Creatine Kinase MB 1.7 ng/ml 2.1 ng/ml Troponin I < 0.015 ng/ml < 0.015 ng/ml Test 01/28/17 06:48 White Blood Count 3.60 K/uL Red Blood Count 4.32 M/uL Hemoglobin 13.3 g/dL Hematocrit 39.3 % Mean Corpuscular Volume 91.0 fL Mean Corpuscular Hemoglobin 30.8 pg Mean Corpuscular Hemoglobin Concent 33.8 g/dl RDW Standard Deviation 42.9 fL RDW Coefficient of Variation 12.9 % Platelet Count 100 K/uL Mean Platelet Volume 10.2 fL Sodium Level 144 mmol/L Potassium Level 4.6 mmol/L Chloride Level 110 mmol/L Carbon Dioxide Level 28 mmol/L Anion Gap 6.0 mmol/L Blood Urea Nitrogen 19 mg/dl Creatinine 1.30 mg/dl Est Creatinine Clear Calc Drug Dose 62.5 ml/min Estimated GFR () 65.9 Estimated GFR (Non- 56.9 BUN/Creatinine Ratio 14.8 Random Glucose 92 mg/dl Calcium Level 8.2 mg/dl Magnesium Level 2.6 mg/dl Assessment & Plan NEAR SYNCOPE, CHEST PAIN, HYPOTENSION, ROD, HX CAD - patient presenting with a near syncopal event after completing cardiac rehab; patient has a long standing history of angina, near syncope, and orthostasis; - in the ER, hypotension and positive orthostatic BPs - cardiac markers :negative ekg: no signs of acute ischemia or infarct echo: -- Conclusions -- * The left ventricle is normal in size. * There is mild concentric left ventricular hypertrophy. * The left ventricular wall motion is normal. * Ejection Fraction = 55-60%. * Aortic valve sclerosis mild, without significant aortic valvular stenosis. * There is no pericardial effusion. * The aortic root is normal size. - symptoms likely due to volume depletion with ROD (creat 1.6, normal baseline) in combination with use of multiple antihypertensives (amlodipine, metoprolol, isosorbide, lisinopril, and Terazosin), bradycardia possibly contributing as well - BP meds held, given IV fluids Honing Job Setter Dr. Lopez consulted discharge plan: change Metoprolol tartrate 25mg bid to Metoprolol succinate 25mg in AM decrease Amlodipine to 2.5mg po in AM take Terazosin at HS take Lisinopril in AM continue Imdur - patient significantly improved cleared for discharge ff up with Honing Job Setter in 2-3 weeks HYPERMAGNESEMIA - hold Mg supplement - repeat Mg as outpatient HX TIA - continue ASA and Plavix GERD - continue PPI BPH - continue Terazosin but take at HS ALCOHOL ABUSE - patient counseled regarding tobacco cessation - denies history of withdrawal in the past DVT PROPHYLAXIS - SQ Heparin given DISPO d/c home ff up with PCP next week ff up with Honing Job Setter in 2-3 weeks Current Inpatient Medications: Current Inpatient Medications Medications (Trade) Dose Ordered Sig/Donnie Route Start Time Stop Time Status Last Admin Dose Admin Acetaminophen (Tylenol Tab) 650 mg Q4H PRN PO 01/27/17 15:15 02/26/17 15:14 Ondansetron HCl (Zofran Inj) 4 mg Q6H PRN IV 01/27/17 15:15 02/26/17 15:14 Nitroglycerin (Nitrostat Tab) 0.4 mg UD PRN SL 01/27/17 15:15 02/26/17 15:14 Aspirin (Ecotrin Tab) 81 mg DAILY PO 01/28/17 09:00 02/27/17 08:59 01/28/17 07:54 81 MG Clopidogrel Bisulfate (plAVix TAB) 75 mg DAILY PO 01/28/17 09:00 02/27/17 08:59 01/28/17 07:52 75 MG Cyanocobalamin (Vitamin B-12 Tab) 1,000 mcg DAILY PO 01/28/17 09:00 02/27/17 08:59 01/28/17 07:53 1,000 MCG Fish Oil ([place]-3 (Purified Fish Oil) Cap) 1 gm DAILY PO 01/28/17 09:00 02/27/17 08:59 01/28/17 07:52 1 GM Rosuvastatin Calcium (Crestor Tab) 40 mg MoWeFr@2100 PO 01/27/17 21:00 02/26/17 20:59 01/27/17 20:44 40 MG Sertraline HCl (Zoloft Tab) 150 mg DAILY PO 01/28/17 09:00 02/27/17 08:59 01/28/17 07:53 150 MG [id number] Acetate (Vitamin E Cap) 400 interunit DAILY PO 01/28/17 09:00 02/27/17 08:59 01/28/17 07:53 400 INTERUNIT Ascorbic Acid (Vitamin C Tab) 500 mg DAILY PO 01/28/17 09:00 02/27/17 08:59 01/28/17 08:48 500 MG Cholecalciferol (Vitamin D Tab) 5,000 inter.unit DAILY PO 01/28/17 09:00 02/27/17 08:59 01/28/17 07:52 5,000 INTER.UNIT Pantoprazole Sodium (Protonix Tab) 40 mg Q2D@0900 PO 01/28/17 09:00 02/27/17 08:59 01/28/17 07:53 40 MG Heparin Sodium (Porcine) (Heparin Sq 5000 Unit/0.5ml) 5,000 unit Q12 SQ 01/27/17 21:00 02/26/17 20:59 01/28/17 07:55 5,000 UNIT Guaifenesin (Organidin Nr Tab) 200 mg Q8H PRN PO 01/27/17 22:00 02/26/17 21:59 01/27/17 23:21 200 MG Terazosin HCl (Hytrin Cap) 5 mg HS PO 01/29/17 21:00 02/27/17 08:59 Metoprolol Succinate (Toprol Xl Tab) 25 mg QAM PO 01/29/17 09:00 02/28/17 08:59 Amlodipine Besylate (Norvasc Tab) 2.5 mg PM PO 01/28/17 21:00 02/27/17 20:59
[2017-01-28] MEDS ORDERED: LISI-461 PO (16:57)
[2017-01-28] MEDS ORDERED: NRV5 PO (16:57)
[2017-01-28] MEDS ORDERED: TERA5CAP PO (16:57)
[2017-01-28] MEDS ORDERED: TPRSR25 PO (16:57)
--- NOTE | 2017-01-28 17:01 | Discharge Instructions ---
Discharge Instructions Date of Service Jan 28, 2017. Admission Reason for Admission: Near Syncope Discharge Discharge Diagnosis / Problem: LOW BLOOD PRESSURE, NEAR SYNCOPE Discharge Goals Goal(s): Diagnostic testing, Therapeutic intervention Activity Recommendations Activity Limitations: as noted below (NO HEAVY EXERTION OR EXERCISE UNTIL RE- EVALUATED BY PRIMARY CARE PHYSICIAN) Lifting Limitations: until after follow-up appointment Exercise/Sports Limitations: until after follow-up appointment Driving or Machine Use: NO DRIVING UNTIL RE-EVALUATED BY PRIMARY CARE PHYSICIAN . Instructions / Follow-Up Instructions / Follow-Up PLEASE REVIEW YOUR NEW MEDICATION LIST AND FOLLOW INSTRUCTIONS CAREFULLY. ENSURE ADEQUATE DAILY FLUID INTAKE. CALL PRIMARY CARE PHYSICIAN OR RETURN TO ER IMMEDIATELY IF WITH DIZZINESS, WEAKNESS, NAUSEA/VOMITING, DIARRHEA. IF YOU HAVE SEVERE DIZZINESS OR LIGHTHEADEDNESS, WEAKNESS, CALL 911. FOLLOW UP WITH DR. ZAVALA [address] OF [address] MAKI) ON WEDNESDAY FEBRUARY 01, 2017 AT 12:45 PM. FOLLOW UP WITH BRAIN WAVE TECHNICIAN IN 2-3 WEEKS. Current Hospital Diet Patient's current hospital diet: AHA Diet (Heart Healthy) Discharge Diet Recommended Diet: AHA Diet (Heart Healthy) Procedures Procedures Performed: Echocardiogram Pending Studies Studies pending at discharge: no Medical Emergencies . Who to Call and When: Medical Emergencies: If at any time you feel your situation is an emergency, please call 911 immediately. . Non-Emergent Contact Non-Emergency issues call your: Primary Care Provider, Aquaculturist Call Non-Emergent contact if: you have a fever, you have any medication questions . Past History Medical & Surgical History: (1) Orthostatic hypotension (2) Near syncope (3) CAD (coronary artery disease) (4) TIA (transient ischemic attack) (5) HTN (hypertension) (6) GERD (gastroesophageal reflux disease) (7) Dyslipidemia (8) Gout (9) BPH (benign prostatic hyperplasia) (10) Alcohol abuse (11) History of carpal tunnel surgery (12) H/O arthroscopic knee surgery (13) H/O toe surgery (14) History of partial colectomy (15) History of tonsillectomy and adenoidectomy . "Provider Documentation" section prepared by Abdoul Myers. . VTE Core Measure Inpt VTE Proph given/why not?: Unfractionated heparin SQ
--- NOTE | 2017-01-28 17:15 | Discharge Summary ---
Discharge Summary Date of Service Jan 28, 2017. Discharge Summary Admission Date: Jan 27, 2017 at 15:07 Discharge Date: Jan 28, 2017 Discharge Disposition: Home Principal Diagnosis: NEAR SYNCOPE, HYPOTENSION Secondary Diagnoses/Problems: Please refer to hospital course below. Procedures: Echocardiogram Consultations: Environmental Maintenance Worker Dr. Lopez Pending Studies/Follow-Up: Please refer to hospital course below. Medication Reconciliation New Medications: Amlodipine Besylate (Amlodipine Besylate) 5 Mg Tab 2.5 MG PO PM for 30 Days, #15 TAB 2 Refills Metoprolol Succinate (Metoprolol Succinate ER) 25 Mg Tabcr 25 MG PO QAM for 30 Days, #30 TAB 2 Refills Changed Medications: Lisinopril (Zestril) 10 Mg Tab 5 MG PO DAILY for 30 Days, #15 TAB (Changed from: UES 10MG TABS FOR 5MG DOSE) take in the morning Terazosin Hcl (Hytrin) 5 Mg Cap 5 MG PO DAILY for 30 Days (Medication details modified) take at bedtime Continued Medications: Ascorbic Acid (Vitamin C) 500 Mg Cap 500 MG PO DAILY Aspirin (Aspirin Ec) 81 Mg Tab 81 MG PO DAILY Cholecalciferol (Vitamin D) 5,000 Unit Tab 5000 UNITS PO DAILY Clopidogrel Bisulfate (Clopidogrel) 75 Mg Tab 75 MG PO DAILY Coenzyme Q10 (Ubidecarenone) (Coq10) 200 Mg Cap 1 TABLET PO DAILY Cyanocobalamin (Vitamin B-12) 1,000 Mcg Tab 1000 MCG PO DAILY Esomeprazole Magnesium (Nexium) 40 Mg Capcr 40 MG PO Q2D, 0 Refills Fish Oil ([place]-3) 1 Ea Cap 1 CAP PO DAILY, CAP Flaxseed (Linseed) (Flaxseed Oil 1000 mg) 1 Cap Cap 1 TAB PO DAILY Indomethacin (Indocin) 50 Mg Cap 50 MG PO DAILY NEEDED FOR GOUT SYMPTOMS Isosorbide Mononitrate Ext Rel (Imdur Ext Rel) 30 Mg Tabcr 30 MG PO DAILY Nitroglycerin (Nitrostat) 0.4 Mg Tab 0.4 MG UT PRN, BTL Rosuvastatin Calcium (Crestor) 40 Mg Tab 40 MG PO - - for 30 Days, #30 TAB 5 Refills Sertraline (Zoloft) 100 Mg Tab 150 MG PO DAILY, 0 Refills Vitamin E (E-400) 400 Unit Cap 1 TAB PO DAILY [Tumeric] () 500 MG PO DAILY Discontinued Medications: Amlodipine Besylate (Amlodipine Besylate) 10 Mg Tab 5 MG PO DAILY USES 10MG TABS FOR 5MG DOSE Magnesium Oxide (Mg Supplement (Magnesium) 250 Mg Tab 250 MG PO DAILY Metoprolol Tartrate (Lopressor) (Lopressor) 25 Mg Tab 25 MG PO BID, TAB Admission Information HPI (per Admitting provider): 66 year old male who presents to the ER with a near syncopal event and chest pain that occurred at cardiac rehab. Patient has history of CAD with CABG x 5 in 1992, more recently patient underwent PRESTON to SVG OM 09/2016. He unfortunately has continued to have angina. He underwent a repeat cath 10/2016 and no lesions were amenable to intervention and medical management was advised. Patient has been attending cardiac rehab. He reports episodes of exertional chest pain daily and at cardiac rehab. He reports angina with minimal exertion. It usually improves with rest however he does report to using nitro on an almost daily basis. He reports the pain is located on the right side of his chest. Intensity is usually #5/10. He describes it as an ache. He denies any radiation of the pain. He denies any associated shortness of breath, nausea, or diaphposis. But he does note worsening exertional shortness of breath over the past several months. He denies orthopnea or lower extremity edema. Patient also has frequent near syncopal events after standing. Today while at cardiac rehab, patient does reports to getting angina while walking on the treadmill however once he rested the pain resolved. He then started using the stationary bike and when he stood up and reports he felt very lightheaded like he was going to pass out. BP was taken and was reported to be low. He was then referred to the ER for further evaluation. Aside from the aforementioned complaints, patient reports he otherwise has been feeling well. He denies fever and chills. No abdominal pain, vomiting, or diarrhea. No urinary symptoms. In the ER, patient's initial BP was 92/58 and 78/ 46 with standing. BPs improved with IVF. Patient is also noted to be bradycardic in the high 40s-50s. Creat is 1.6 (normal baseline). Initial troponin is negative, EKG does not show any acute ST changes. Physical Exam (per Admitting): General Appearance: no apparent distress Head: normocephalic Eyes: normal inspection ENT: hearing grossly normal Neck: supple, no JVD Respiratory/Chest: lungs clear, normal breath sounds, no respiratory distress Cardiovascular: regular rate, rhythm, no edema, normal peripheral pulses Abdomen/GI: normal bowel sounds, non tender, soft Extremities/Musculoskelatal: normal inspection, no calf tenderness Neurologic/Psych: no motor/sensory deficits, alert, normal mood/affect, oriented x 3 Skin: normal color, warm/dry Hospital Course NEAR SYNCOPE, HYPOTENSION - patient presenting with a near syncopal event after completing cardiac rehab; patient has a long standing history of angina, near syncope, and orthostasis follows closely with Dr. Kaiser who has been hesitant to reduce cardiac meds as it may make his angina worse - hx CAD, CABG x 5 1992, PRESTON to SVG of OM 09/2016, repeat cath for continued chest pain 10/2016 - no lesions amendable to intervention, medical management recommended - in the ER, hypotension and positive orthostatic BPs - cardiac markers :negative ekg: no signs of acute ischemia or infarct echo: -- Conclusions -- * The left ventricle is normal in size. * There is mild concentric left ventricular hypertrophy. * The left ventricular wall motion is normal. * Ejection Fraction = 55-60%. * Aortic valve sclerosis mild, without significant aortic valvular stenosis. * There is no pericardial effusion. * The aortic root is normal size. - symptoms likely due to volume depletion with ROD (creat 1.6, normal baseline) in combination with use of multiple antihypertensives (amlodipine, metoprolol, isosorbide, lisinopril, and Terazosin), bradycardia possibly contributing as well - BP meds held, given IV fluids Environmental Maintenance Worker Dr. Lopez consulted discharge plan: change Metoprolol tartrate 25mg bid to Metoprolol succinate 25mg in AM decrease Amlodipine to 2.5mg po in AM take Terazosin at HS take Lisinopril in AM continue Imdur - patient significantly improved cleared for discharge ff up with Environmental Maintenance Worker in 2-3 weeks ACUTE RENAL FAILURE crea 1.6 on admission given IV fluids crea improved to 1.3 HYPERMAGNESEMIA - hold Mg supplement - repeat Mg as outpatient HISTORY OF TIA - continue ASA and Plavix GERD - continue PPI BPH - continue Terazosin but take at HS ALCOHOL ABUSE - patient counseled regarding cessation DISPO d/c home ff up with PCP next week ff up with Environmental Maintenance Worker in 2-3 weeks Total time spent on discharge = 40 MINUTES This includes examination of the patient, discharge planning, medication reconciliation, and communication with other providers. Discharge Instructions Discharge Instructions Date of Service Jan 28, 2017. Admission Reason for Admission: Near Syncope Discharge Discharge Diagnosis / Problem: LOW BLOOD PRESSURE, NEAR SYNCOPE Discharge Goals Goal(s): Diagnostic testing, Therapeutic intervention Activity Recommendations Activity Limitations: as noted below (NO HEAVY EXERTION OR EXERCISE UNTIL RE- EVALUATED BY PRIMARY CARE PHYSICIAN) Lifting Limitations: until after follow-up appointment Exercise/Sports Limitations: until after follow-up appointment Driving or Machine Use: NO DRIVING UNTIL RE-EVALUATED BY PRIMARY CARE PHYSICIAN . Instructions / Follow-Up Instructions / Follow-Up PLEASE REVIEW YOUR NEW MEDICATION LIST AND FOLLOW INSTRUCTIONS CAREFULLY. ENSURE ADEQUATE DAILY FLUID INTAKE. CALL PRIMARY CARE PHYSICIAN OR RETURN TO ER IMMEDIATELY IF WITH DIZZINESS, WEAKNESS, NAUSEA/VOMITING, DIARRHEA. IF YOU HAVE SEVERE DIZZINESS OR LIGHTHEADEDNESS, WEAKNESS, CALL 911. FOLLOW UP WITH DR. ZAVALA [address] OF [address] MAKI) ON WEDNESDAY FEBRUARY 01, 2017 AT 12:45 PM. FOLLOW UP WITH PAINT DIPPER IN 2-3 WEEKS. Current Hospital Diet Patient's current hospital diet: AHA Diet (Heart Healthy) Discharge Diet Recommended Diet: AHA Diet (Heart Healthy) Procedures Procedures Performed: Echocardiogram Pending Studies Studies pending at discharge: no Medical Emergencies . Who to Call and When: Medical Emergencies: If at any time you feel your situation is an emergency, please call 911 immediately. . Non-Emergent Contact Non-Emergency issues call your: Primary Care Provider, Environmental Maintenance Worker Call Non-Emergent contact if: you have a fever, you have any medication questions . Past History Medical & Surgical History: (1) Orthostatic hypotension (2) Near syncope (3) CAD (coronary artery disease) (4) TIA (transient ischemic attack) (5) HTN (hypertension) (6) GERD (gastroesophageal reflux disease) (7) Dyslipidemia (8) Gout (9) BPH (benign prostatic hyperplasia) (10) Alcohol abuse (11) History of carpal tunnel surgery (12) H/O arthroscopic knee surgery (13) H/O toe surgery (14) History of partial colectomy (15) History of tonsillectomy and adenoidectomy . "Provider Documentation" section prepared by Abdoul Myers. . VTE Core Measure Inpt VTE Proph given/why not?: Unfractionated heparin SQ
[2017-01-28] MEDS ORDERED: AMLODIPINE BESYLATE 5 MG TAB PO SCH (21:00)
[2017-01-29] MEDS ORDERED: METOPROLOL SUCC 25MG EXT REL TAB PO SCH (09:00)
== END 2017-01-28 17:52 | disposition home or self-care (01) | DRG 312 ==
LOC: EDBD 11:15 → C.EDA 11:16 → C.MED 15:07 → ENRESERV 15:33
PROVIDERS: ADMIT Internal Medicine; ATTEND Internal Medicine
DX: I95.1 Orthostatic hypotension (principal); N17.9 Acute kidney failure, unspecified; I25.10 Atherosclerotic heart disease of native coronary artery without angina pectoris; R07.9 Chest pain, unspecified; E66.9 Obesity, unspecified; K21.9 Gastro-esophageal reflux disease without esophagitis; N40.0 Benign prostatic hyperplasia without lower urinary tract symptoms; F10.10 Alcohol abuse, uncomplicated; E78.5 Hyperlipidemia, unspecified; E86.9 Volume depletion, unspecified; E83.41 Hypermagnesemia; Z86.73 Personal history of transient ischemic attack (TIA), and cerebral infarction without residual deficits; Z79.82 Long term (current) use of aspirin; Z87.891 Personal history of nicotine dependence; Z68.31 Body mass index [BMI] 31.0-31.9, adult; Z95.1 Presence of aortocoronary bypass graft; Z95.5 Presence of coronary angioplasty implant and graft; Z79.02 Long term (current) use of antithrombotics/antiplatelets; Z79.899 Other long term (current) drug therapy

== ENCOUNTER → 2017-04-20 | Outpatient (CLI) | payer OTHER ==
[~2017-04-20] MED LIST changes: -CHOL1TAB4 PO; +CHOL1TAB42 PO; -CYAN100048 PO; +CYAN10005 PO; -FLVHFA110; -HYT/2 PO; +INDO-24 PO; -INDO75CA2 PO; +ISOS30TA35 PO; -MAGN250T8 PO; -METO25TA56 PO; -NRV/10 PO; +NRV5 PO; +PLV75 PO; +TPRSR25 PO
--- NOTE | 2017-04-21 05:43 | PAP/PSG TECHNICIAN REPORT ---
[facility] Financial Advisor Polysomnogram Report Study name: None Report date: 04/21/2017 Study date: 04/20/2017 Referring Physician: Storm ELIZABETH M.D. Name: DOROTA WINTER Interpreting Physician: Grace Elizabeth M.D. Date of : 1950 Financial Advisor: Yoli Landry RPSGT. Sex: Male Age: 66 StudyType: PSG Weight: 210 lbs Height: 66 years, Height 5' 8" Neck Circum: 16 inches BMI: 31.93 Medications: Sertraline 100 mg, Indomethacin 50 mg, Metoprolol 25 mg, Terazosin 2 mg, Nexium 40 mg, Atorvastatin Calicum 40 mg, Amlodipine Besylate 10 mg, Vitamin C 500 mg, Vitamin E 400 unit, Vitamin B 12 1000 MCG, CoQ 10 200 mg, Flaxseed 1000 mg, Magnesium 250 mg, Aspirin 325 mg Patient History 66 yr. old male here for a possible split night sleep study in room 5. Patient complains of loud snoring, EDS and naps daily. Patient had a study 2012 and had an AHI of 3.2. Patients Williams sleepiness Scale score is 17/24. Parameters Monitored NPSG: E1-M2, E2-M1, Fp1-M2, Fp2-M1, F3-M2, F4-M2, F4-M1, C3-M2, C4-M2, C4-M1, O1-M2, O2-M2, O2-M1, T3-M2, T4-M1, P3-M2, P4-M1, CHIN1, CHIN2, HR, EKG, Legs, PFLOW, SNOR, FLOW, CFLOW, Tidal Volume, THOR, ABDO, SpO2, PLTH, CPRESS, ETCO2 Wave, ETCO2, pH Sleep Architecture Sleep Stages Time at Lights Off 9:37:42 PM STAGES Time (min.) TST (%) Time at Lights On 5:22:12 AM Wake 39.5 -- Total Recording Time (TRT) 465.00 min. N1 42.5 10 Total Sleep Period (TSP) 455.0 min. N2 242.0 57 Total Sleep Time (TST) 425.0min. N3 28.5 7 Awake Time 39.5 min. REM 112.0 26 Wake after Sleep Onset 30.0 min. Sleep Efficiency (SE) 91 % Sleep Onset Latency (ROBBIN) 9.5 min. Number of Stage 1 Shifts None Awakenings 27 Stage Changes 125 Number of REM periods 15 REM 112.0 26 REM Latency 62.0 min. NREM 313.0 74 Body Position Analysis Supine Right Left Side Prone Vertical Total Sleep Time (min.) 6.4 126.0 299.0 425.00 0.0 1.5 Total Sleep Time (%) 0% 30% 70% 100 0% N/A% Total Sleep Time REM (min.) 0.0 42.5 69.5 None 0.0 0.0 Total Sleep Time NREM (min.) 0.0 83.5 229.5 None 0.0 0.0 Intermittent Wake (min.) 6.4 13.6 18.0 None 0.0 1.5 Total Sleep Period (%) 0% None None None None None Arousals Myoclonus (PLM) * Events Count Index Events Count Index Spontaneous 18 3 Events Awake (PLMW) 25 38.0 Respiratory 0 0.0 Events Asleep w/ Arousal (PLMA) 14 2.0 PLM 14 2 Events Asleep w/o Arousal (PLMS) 95 13.4 Snoring 19 3 Total Asleep 109 15.4 Total 50 7 Total 134 17 Respiratory Analysis * CA OA MA CH H RERA Total Count 0 1 0 0 5 0 6 Index 0.0 0.1 0.0 0 0.7 0 0.8 Mean Duration 0.0 18.8 0.0 0.00 24.6 0.0 23.6 Longest Duration 0.0 18.8 0.0 0.00 0.0 0.0 48.4 Respiratory Event Summary Total Supine ~Supine Right Left Prone REM NREM Apneas Count 1 N/A 1 0 1 N/A 0 1 Index 0.1 N/A 0 0.0 0.2 N/A 0 0 Hypopneas (4% Desat) Count 5 N/A 5 0 5 N/A 2 3 Index 0.7 N/A 1 0.0 1.0 N/A 1.1 0.6 Apneas & All Hypopneas Count 6 N/A 6 0 6 N/A 2 4 Index 0.8 N/A 1 0 1 N/A 1.1 0.8 Respiratory Events (Welding Operator+All Hyp+RERA) Count 6 N/A 6 0 6 N/A 2 4 Index 0.8 N/A 1 0.0 1.2 N/A 1.1 0.8 Respiratory Related Arousal Count 0 N/A 0 0 0 N/A 0 0 Index 0.0 N/A 0 0 0 N/A 0 0 Snoring Analysis Supine Right Left Prone REM NREM Total Snore duration 11.9 min Snores count N/A 567 69 N/A 100 536 636 Snore mean duration 1.1 Sec Snores index N/A 270 14 N/A 53.6 102.7 89.8 TST with snoring (%) 2.8% Desaturation Event Summary: Minimum %SpO2 Event Count Mean/Min/Max Duration(sec.) Desaturation Index % Time In Bed > 90 10 21.0 / 11.3 / 34.0 1.8 71.7 86 - 90 7 16.9 / 0.3 / 34.0 3.4 27.5 81 - 85 1 32.0 / 32.0 / 32.0 15.7 0.8 76 - 80 0 N/A 0.0 0.0 71 - 75 0 N/A 0.0 0.0 66 - 70 0 N/A 0.0 0.0 61 - 65 0 N/A 0.0 0.0 56 - 60 0 N/A 0.0 0.0 51 - 55 0 N/A 0.0 0.0 < 50 0 N/A 0.0 0.0 Total REM NREM Awake <50% 0.0 min. 0.0 min. 0.0 min. 0.0 min. 51 - 60% 0.0 min. 0.0 min. 0.0 min. 0.0 min. 61 - 70% 0.0 min. 0.0 min. 0.0 min. 0.0 min. 71 - 80% 0.0 min. 0.0 min. 0.0 min. 0.0 min. 81 - 90% 128.3 min. 37.7 min. 80.4 min. 10.2 min. 91 - 100% 324.7 min. 72.3 min. 226.7 min. 25.7 min. Average 92 92 92 91 Minimum SpO2 83 84 86 83 Desaturation Event Index 1.8 2.1 1.3 6.1 # Desat. Events below 89% 7 3 2 2 Time(%) with Saturation below 89% 2.9 1.9 0.2 0.7 Time(min.) with Saturation below 89% 13.1 8.7 1.1 3.3 Time (mins) REM (mins) NREM (mins) % of TST SpO2 Below 90% 9 4 N5 10.1 SpO2 Below 88% 2 0 0 1 Heart Rate Analysis Min (bpm) Max (bpm) Average (bpm) Awake 45 225 54 NREM 46 127 52 REM 48 127 54 Overall 46 127 52 Supplemental O2 Values Minimum O2 level: None Value Start Time End Time Financial Advisor Comments Mr. Winter slept in the right and left positions. Cardiac arrhythmia noted. No PLMs noted. No bruxism noted. Snoring was noted and scored as a 2 on a scale of 0 through 5. (0=no snoring, 5=snoring loud enough to be heard through a closed door or down the rahman way) Mr. Winter did not wake to use the restroom during the night. At 3:06 am, 1 lpm 02 was added. His AHI was 1.2, he was under 89% for 8.4 minutes. Mr. Winter stated,I had a good nights sleep, I was exhauseted . The final report will be interpreted and signed by a sleep physician. The completed physician report will then be placed in the patient medical record. Therapy (cm H2O) 0 TIB (min.) 464.5 TST (min.) 425.0 Sleep Onset (min.) 9.5 REM Onset From Sleep (min.) 62.0 Sleep Efficiency % 91 Wakefulness (%) 9 Wakefulness (min.) 39.5 NREM 1 (%) 10 NREM 1 (min.) 42.5 NREM 2 (%) 57 NREM 2 (min.) 242.0 NREM 3 (%) 7 NREM 3 (min.) 28.5 REM (%) 26 REM (min.) 112.0 # Arousals 50 Arousal Index 7 # Snore 636 Snore Index 89.8 AHI 0.8 AHI Supine N/A AHI Non-Supine 1 NREM AHI 0.8 REM AHI 1.1 RDI 0.8 # Obstructive Apnea 1 # Central Apnea 0 # Mixed Apnea 0 # Hypopneas 5 RERAs 0 Total Respiratory Events 8 Time Below SpO2 89% (min.) 9.8 Mean NREM SpO2 (%) 92 Mean REM SpO2 (%) 92 Mean Sleep SpO2 (%) 92 Min NREM SpO2 (%) 86 Min REM SpO2 (%) 84 Position Supine (min.) 6.4 Position Non-supine (min.) 425.0 LM Index Sleep 15.4 LM Index NREM 12.8 LM Index REM 22.5 Mean Heart Rate (bpm) 52 Min Heart Rate (bpm) 46
--- NOTE | 2017-04-26 11:32 | POLYSOMNOGRAPH REPORT ---
REFERRING PERSON: Dr. Kye Elizabeth. ADVANCED MANUFACTURING CONSULTANT: Yoli Landry. Mr. Jamil is a 66-year-old male sent for a possible split night sleep study. He had a sleep study in 2012, which was unremarkable. He does snore loudly, takes daily naps, and has excessive daytime sleepiness. His Geneva sleepiness scale score on the evening of this study is 17. BMI is 31.93. Following the technical and digital specifications of the [place] [employer] (AASM) a standard diagnostic polysomnogram was performed monitoring EEG, EOG, EMG (chin and leg deviations), oxygen saturation, body position, digital video, respiratory effort and airflow. The sleep Stage and event scoring was based on the AASM Manual for the Scoring of Sleep and Associated Events 2007 edition. Apneas are defined as a drop in the peak thermal sensor excursion by >90% of baseline for at least 10 seconds. Hypopneas were scored using the 4% oxygen desaturation rule (4A-Medicare) and a decrease in the nasal pressure excursions by >30% of baseline for at least 10 seconds. Respiratory effort-related arousal (RERA's) is defined as a sequence of breaths lasting at least 10 seconds characterized by increasing respiratory effort or flattening of the nasal pressure waveform leading to an arousal from sleep when the sequence of breaths does not meet criteria for an apnea or hypopnea. Apnea Hypopnea index (AHI) is defined as the number of apneas and hypopneas occurring in an hour of sleep. Respiratory disturbance index (RDI) is defined as the number of apneas, hypopneas, and RERA's occurring in an hour of sleep. Mr. Jamil's total sleep period time was 455 minutes. Total sleep time was 425 minutes. Sleep efficiency was 91%. Latency to sleep onset was 9.5 minutes with wake after sleep onset was 30 minutes. Total non-REM sleep time was 313 minutes. He spent 10% of that time in N1 sleep, 57% in N2 sleep and 7% in N3 sleep. REM latency was 62 minutes. Total REM sleep time was 112 minutes or 26% of total sleep time. There were 50 cortical arousals from sleep. Eighteen of these arousals were spontaneous, 14 were due to periodic limb movements of sleep and 19 were due to snoring. There were 109 periodic limb movements noted on this test. Limb movement index was 15.4. Limb movement with arousal index was 2. There were no central, 1 obstructive and no mixed apnea on this test. There were 5 hypopneas and no RERA. Apnea-hypopnea index was again normal at 0.8. 636 snoring events were recorded. Total sleep time with snoring was only 2.8%. Mean saturation during sleep was 92%, but there were desaturations on this study to 83%. These desaturations were limited to a period of REM sleep on this study. Saturations were less than 89 for 13.1 minutes of recording time. This is significant nocturnal hypoxemia. There were premature atrial complexes noted on EKG monitoring. Heart rates ranged from a low of 46 beats per minute to a high of 127 beats per minute during sleep. Per the technologist's note, at 03:06 a.m., this patient's AHI was 1.2 and his saturations had been less than 89% for 8.4 minutes and he was started on 1 liter of oxygen. IMPRESSION AND PLAN: A 66-year-old male without evidence of sleep apnea on this test, but evidence of mild nocturnal hypoxemia, which appears to resolve with 1 liter of supplemental oxygen. 1. This patient may benefit from oxygen therapy at bedtime. He should be started on 1 liter of oxygen and then a nocturnal oximetry performed on 1 liter to ensure his hypoxemia resolves with this treatment. This should be continued should it make a difference in his excessive daytime sleepiness, napping and overall energy.
== END | disposition home or self-care (01) ==
LOC: C.NEUR 21:00
PROVIDERS: ATTEND Family Medicine
DX: G47.33 Obstructive sleep apnea (adult) (pediatric) (principal); G47.10 Hypersomnia, unspecified; G47.34 Idiopathic sleep related nonobstructive alveolar hypoventilation

== ENCOUNTER 2018-03-14 22:11 | Inpatient (IN) | payer OTHER ==
[~2018-03-14] VITALS: Ht 167.6 cm; Wt 93.3 kg
--- NOTE | 2018-03-14 22:50 | DIAGNOSTIC IMAGING REPORT ---
CHEST ONE VIEW PORTABLE CLINICAL HISTORY: 67 years-old Male presenting with Chest Pain. TECHNIQUE: Portable upright AP view of the chest was obtained. COMPARISON: 01/27/2017. FINDINGS: Median sternotomy wires and mediastinal surgical clips noted. Cardiac silhouette top normal in size. No focal opacity. No large effusion or pneumothorax. Multiple old right rib fractures again noted. IMPRESSION: 1. No acute cardiopulmonary disease. Electronically signed by: Miguel Grigsby M.D. 03/14/2018 10:48 PM Dictated Date/Time: 03/14/2018 10:47 PM
[2018-03-14 23:10] LABS: BASO % 0.6 %; BASO ABS # 0.03 K/uL (0-0.2); HEMATOCRIT 39.9 % (42-52); HEMOGLOBIN 13.8 g/dL (14.0-18.0); IG# 0.01 K/uL (0.00-0.02); LYMPH % 15.8 %; LYMPH ABS # 0.79 K/uL (1.2-3.4); MEAN CELL VOLUME 91.3 fL (80-100); MEAN CORPUSCULAR HEMOGLOBIN 31.6 pg (25-34); MEAN CORPUSCULAR HGB CONC 34.6 g/dl (32-36); MONO ABS # 0.45 K/uL (0.11-0.59); NEUT % 72.4 %; NEUT ABS # 3.62 K/uL (1.4-6.5); PLATELET COUNT 103 K/uL (130-400); RED CELL DISTRIBUTION WIDTH CV 13.7 % (11.5-14.5); RED CELL DISTRIBUTION WIDTH SD 44.8 fL (36.4-46.3)
[2018-03-14] MEDS ORDERED: AMLOPOW3 PO (23:26)
[2018-03-14] MEDS ORDERED: LISI-729 PO (23:30)
[2018-03-14] MEDS ORDERED: METO25TA3 PO (23:31)
[2018-03-14] MEDS ORDERED: TERA5CAP PO (23:33)
[2018-03-14 23:34] LABS: BLOOD UREA NITROGEN 29 mg/dl (7-18); CALCIUM 8.2 mg/dl (8.5-10.1); CARBON DIOXIDE 22 mmol/L (21-32); CKMB 2.6 ng/ml (0.5-3.6); CREATININE 2.37 mg/dl (0.60-1.40); GLUCOSE 118 mg/dl (70-99); POTASSIUM 3.8 mmol/L (3.5-5.1); SODIUM 142 mmol/L (136-145)
[2018-03-14] MEDS ORDERED: SODIUM CHLORIDE 0.9% 1000ML 1,000 ML IV STA (23:38)
[2018-03-15] MEDS ORDERED: ACETAMINOPHEN 500 MG TAB PO STA (00:07)
[2018-03-15 00:16] LABS: PTT PATIENT 25.7 SECONDS (21.0-31.0)
[2018-03-15 00:24] LABS: ALBUMIN 3.8 gm/dl (3.4-5.0); ALKALINE PHOSPHATASE 55 U/L (45-117); ALT/SGPT 33 U/L (12-78); AST/SGOT 23 U/L (15-37); TOTAL PROTEIN 7.2 gm/dl (6.4-8.2)
[2018-03-15] MEDS ORDERED: CALCIUM GLUCONATE 10% 1,000 MG in SODIUM CHLORIDE 0.9% 50ML 50 ML IV STA (01:04)
[2018-03-15] MEDS ORDERED: PROCHLORPERAZINE INJ 5 MG in SYRINGE 4 ML IV PRN ×2 (01:15→02:00)
[2018-03-15] MEDS ORDERED: HYDROmorphone INJ 0.5 MG/0.5 ML SYR IV PRN (01:15)
[2018-03-15] MEDS ORDERED: DOXYCYCLINE IV 100 MG in DEXTROSE 5% 100ML 100 ML IV STA (01:16)
[2018-03-15] MEDS ORDERED: OXYCODONE/ACETAMINOPHEN 5-325 TAB PO STA (01:16)
--- NOTE | 2018-03-15 01:21 | EMERGENCY ROOM VISIT NOTE ---
History Report prepared by Jose: Tasha Yates Under the Supervision of: Dr. Balaji Steen D.O. First contact with patient: 22:21 Chief Complaint: CHEST PAIN Stated Complaint: CRAMP IN L SHOULDER AND CHEST, PASSED OUT History of Present Illness The patient is a 67 year old male who presents to the Emergency Room with complaints of an episode of syncope beginning 1-1.5 hours ago. He reports he was sitting and talking when he passed out. The patient states he does not recall what happened, and he was told he was unconscious for 30-40 seconds. He notes he was told he did not seize during the episode. The patient reports some L shoulder pain that began today after he woke up from the fall, that he describes as a constant spasm. He notes this pain is not similar to any of his prior heart issues. His friends noted that they caught him on his following. He did not hit his head. He states he has been coughing up phlegm and wheezing the past few days. The patient denies SOB, arm pain, or jaw pain. He notes he monitors his BP daily, and states it has been low recently. The patient states he takes aspirin daily. Source of History: patient Onset: 1-1.5 hours ago Position: head Quality: other (syncope) Timing: other (episode) Associated Symptoms: + cough (coughing up phlegm), No SOB Note: Associated symptom: L shoulder pain, wheezing. Denies: arm pain, jaw pain. Review of Systems See HPI for pertinent positives & negatives. A total of 10 systems reviewed and were otherwise negative. Past Medical & Surgical Medical Problems: (1) Alcohol abuse (2) BPH (benign prostatic hyperplasia) (3) CAD (coronary artery disease) (4) Calculus Of Ureter (5) Coronary Atherosclerosis Of [place] Coronary Vessel (6) Depressive Disorder Nec (7) Dyslipidemia (8) Esophageal Reflux (9) GERD (gastroesophageal reflux disease) (10) Gout (11) Gout Nos (12) History Of Tobacco Use (13) HTN (hypertension) (14) Hyperlipidemia Nec/Nos (15) Hypertension Nos (16) Malignant [place] Colon Nos (17) Syncope (18) TIA (transient ischemic attack) Surgical Problems: (1) Aortocoronary Bypass (2) H/O arthroscopic knee surgery (3) H/O toe surgery (4) History of carpal tunnel surgery (5) History of partial colectomy (6) History of tonsillectomy and adenoidectomy Family History FH: esophageal cancer FATHER Social History Smoking Status: Never Smoker Alcohol Use: none Marital Status: Housing Status: lives with family Occupation Status: retired Current/Historical Medications Scheduled Amlodipine Besylate (Bulk) (Amlodipine Besylate), 2.5 MG PO DAILY Ascorbic Acid (Vitamin C), 500 MG PO DAILY Aspirin (Aspirin Ec), 81 MG PO DAILY Cholecalciferol (Vitamin D), 5,000 UNITS PO DAILY Clopidogrel Bisulfate (Clopidogrel), 75 MG PO DAILY Coenzyme Q10 (Ubidecarenone) (Coq10), 1 TABLET PO DAILY Cyanocobalamin (Vitamin B-12), 1,000 MCG PO DAILY Esomeprazole Magnesium (Nexium), 40 MG PO Q2D Fish Oil ([place]-3), 1 CAP PO DAILY Flaxseed (Linseed) (Flaxseed Oil 1000 mg), 1 TAB PO DAILY Indomethacin (Indocin), 50 MG PO DAILY Isosorbide Mononitrate Ext Rel (Imdur Ext Rel), 30 MG PO DAILY Lisinopril (Zestril), 5 MG PO DAILY Metoprolol Succ (Toprol Xl) (Toprol-Xl), 25 MG PO DAILY Nitroglycerin (Nitrostat), 0.4 MG UT PRN Rosuvastatin Calcium (Crestor), 40 MG PO - - Sertraline (Zoloft), 150 MG PO DAILY Terazosin (Hytrin), 5 MG PO DAILY Vitamin E (E-400), 1 TAB PO DAILY Allergies Coded Allergies: Iodinated Diagnostic Agents (Verified Allergy, Severe, ANAPHYLAXIS, 03/14/18 ) noted from 09/25/13 Allopurinol (Unverified Adverse Reaction, Severe, SORE JOINTS, 03/14/18) Physical Exam Vital Signs Date Time Temp Pulse Resp B/P (MAP) Pulse Ox O2 Delivery O2 Flow Rate FiO2 03/15/18 00:02 59 132/81 77 134/86 65 114/75 03/14/18 23:46 64 13 110/70 95 Room Air 03/14/18 22:54 66 18 115/69 95 Room Air 03/14/18 22:37 65 03/14/18 22:17 36.6 70 18 112/55 94 Room Air Physical Exam GENERAL: Sitting up in bed, alert, well appearing for stated age, well nourished , no distress, non-toxic EYE EXAM: normal conjunctiva. PERRL and EOM's intact. OROPHARYNX: no exudate, no erythema, lips, buccal mucosa, and tongue normal and mucous membranes are moist NECK: supple, no nuchal rigidity, no adenopathy, non-tender LUNGS: Clear to auscultation. Normal chest wall mechanics HEART: no murmurs, S1 normal and S2 normal CHEST: Old midline incision. ABDOMEN: abdomen soft, non-tender, normo-active bowel sounds, no masses, no rebound or guarding. BACK: Back is symmetrical on inspection and there is no deformity, no midline tenderness, no CVA tenderness. SKIN: no rashes and no bruising UPPER EXTREMITIES: upper extremities are grossly normal. LOWER EXTREMITIES: No pitting edema. NEURO EXAM: Normal sensorium, cranial nerves II-XII intact, normal speech, no weakness of arms, no weakness of legs. No drift. Finger to nose intact. Gross sensation intact. Medical Decision & Procedures ER Provider Diagnostic Interpretation: Radiology results as stated below per my review and the radiologist's interpretation: 3 VIEWS L SHOULDER: No acute fracture Laboratory Results 03/14/18 22:54 Red Blood Count 4.37, Mean Corpuscular Volume 91.3, Mean Corpuscular Hemoglobin 31.6, Mean Corpuscular Hemoglobin Concent 34.6, Mean Platelet Volume 10.0, Neutrophils (%) (Auto) 72.4, Lymphocytes (%) (Auto) 15.8, Monocytes (%) (Auto) 9.0, Eosinophils (%) (Auto) 2.0, Basophils (%) (Auto) 0.6, Neutrophils # (Auto) 3.62, Lymphocytes # (Auto) 0.79, Monocytes # (Auto) 0.45, Eosinophils # (Auto) 0.10, Basophils # (Auto) 0.03 03/14/18 22:54 Test 03/14/18 22:54 White Blood Count 5.00 K/uL (4.8-10.8) Red Blood Count 4.37 M/uL (4.7-6.1) Hemoglobin 13.8 g/dL (14.0-18.0) Hematocrit 39.9 % (42-52) Mean Corpuscular Volume 91.3 fL (80-100) Mean Corpuscular Hemoglobin 31.6 pg (25-34) Mean Corpuscular Hemoglobin Concent 34.6 g/dl (32-36) Platelet Count 103 K/uL (130-400) Mean Platelet Volume 10.0 fL (7.4-10.4) Neutrophils (%) (Auto) 72.4 % Lymphocytes (%) (Auto) 15.8 % Monocytes (%) (Auto) 9.0 % Eosinophils (%) (Auto) 2.0 % Basophils (%) (Auto) 0.6 % Neutrophils # (Auto) 3.62 K/uL (1.4-6.5) Lymphocytes # (Auto) 0.79 K/uL (1.2-3.4) Monocytes # (Auto) 0.45 K/uL (0.11-0.59) Eosinophils # (Auto) 0.10 K/uL (0-0.5) Basophils # (Auto) 0.03 K/uL (0-0.2) RDW Standard Deviation 44.8 fL (36.4-46.3) RDW Coefficient of Variation 13.7 % (11.5-14.5) Immature Granulocyte % (Auto) 0.2 % Immature Granulocyte # (Auto) 0.01 K/uL (0.00-0.02) Activated Partial Thromboplast Time 25.7 SECONDS (21.0-31.0) Partial Thromboplastin Ratio 1.0 Anion Gap 14.0 mmol/L (3-11) Est Creatinine Clear Calc Drug Dose 32.3 ml/min Estimated GFR () 31.7 Estimated GFR (Non- 27.3 BUN/Creatinine Ratio 12.1 (10-20) Calcium Level 8.2 mg/dl (8.5-10.1) Magnesium Level 2.4 mg/dl (1.8-2.4) Total Bilirubin 0.4 mg/dl (0.2-1) Direct Bilirubin 0.1 mg/dl (0-0.2) Aspartate Amino Transf (AST/SGOT) 23 U/L (15-37) Alanine Aminotransferase (ALT/SGPT) 33 U/L (12-78) Alkaline Phosphatase 55 U/L (45-117) Total Creatine Kinase 197 U/L (39-308) Creatine Kinase MB 2.6 ng/ml (0.5-3.6) Creatine Kinase MB Ratio 1.3 (0-3.0) Troponin I < 0.015 ng/ml (0-0.045) Total Protein 7.2 gm/dl (6.4-8.2) Albumin 3.8 gm/dl (3.4-5.0) Thyroid Stimulating Hormone (TSH) 2.380 uIu/ml (0.300-4.500) Laboratory results per my review. Medications Administered Medications (Trade) Dose Ordered Sig/Donnie Route Start Time Stop Time Status Last Admin Dose Admin Sodium Chloride 1,000 ml @ 999 mls/hr Q1H1M STAT IV 03/14/18 23:38 03/15/18 00:38 DC 03/14/18 23:45 999 MLS/HR Acetaminophen (Tylenol Tab) 1,000 mg NOW STAT PO 03/15/18 00:07 03/15/18 00:08 DC 03/15/18 00:15 1,000 MG ECG Per My Interpretation Indication: syncope Rate (beats per minute): 67 Rhythm: normal sinus Findings: Q waves (Inferior), other (T wave flattening in high lateral leads) Comparison ECG Date: 01/28/17 Change: When compared to 01/28/17: Q waves are not new. T wave flattening in high lateral lead has improved. ED Course ED COURSE: Vital signs were reviewed and showed no abnormalities. The patients medical record was reviewed The above diagnostic studies were performed and reviewed. ED treatments and interventions as stated above. 2222: The patient was evaluated in room A3. A complete history and physical examination was performed. 2331: I reevaluated and updated the patient. 2338: Ordered Sodium Chloride 1000 ml @ 999 mls/hr IV. 2351: I reviewed the patient's case with Dr. Silva, [facility] hospitalist. He will evaluate the patient for further management. 0001: Upon reevaluation, the patient is resting. I discussed my findings with the patient and he understands and agrees with the treatment plan. 0007: Ordered Tylenol Tab 1000 mg PO. Based on the patients age, coexisting illnesses, exam and lab findings the decision to treat as an inpatient was made. The patient remained stable while under my care. The patient will be evaluated for further management. Medical Decision Differential diagnosis includes etiologies such as vasovagal event, infection, hypoglycemia, electrolyte abnormalities, cardiac sources, intracerebral event, toxicologic, neurologic, as well as others were entertained. Patient is a 67-year-old male with extensive cardiac history the presents the ER after syncope. He has no chest pain or shortness breath. He does have left upper shoulder discomfort. EKG is unchanged from his previous. Troponin was negative. He was given Tylenol. CBC was unremarkable. BMP with a creatinine of 2.4 up from a baseline of 1.3. LFTs, bilirubin and TSH was normal. He is completely neurologically intact. Patient was given IV fluids and discussed with internal medicine for observation due to the syncope although I favor this is vasovagal in combination with the ROD/doubling of his creatinine. Chest x- ray showed no obvious fractures or pneumothorax. X-ray of the left shoulder shows no obvious fractures. Patient was updated bedside and discussed with the hospitalist for observation as stated above. Medication Reconcilliation Current Medication List: was personally reviewed by me Blood Pressure Screening Patient's blood pressure: Normal blood pressure Blood pressure disposition: Did not require urgent referral Consults Time Called: [phone] Consulting Physician: Marquis Díaz hospitalist Returned Call: [phone] I reviewed the patient's case with Marquis Díaz hospitalist. He will evaluate the patient for further management. Impression Primary Impression: Acute kidney injury Additional Impressions: Syncope Left shoulder pain Bronchitis Scribe Attestation The scribe's documentation has been prepared under my direction and personally reviewed by me in its entirety. I confirm that the note above accurately reflects all work, treatment, procedures, and medical decision making performed by me. Departure Information Dispostion Being Evaluated By Hospitalist Referrals Miguel Suarez M.D. (PCP) Patient Instructions [facility] Problem Qualifiers Additional Impressions: Syncope Syncope type: unspecified Qualified Codes: R55 - Syncope and collapse Left shoulder pain Chronicity: acute Qualified Codes: M25.512 - Pain in left shoulder
[2018-03-15] MEDS ORDERED: SODIUM CHLOR 0.45% + 20MEQ KCL 1,000 ML IV ONE (01:45)
[2018-03-15] MEDS ORDERED: THIAMINE HCL 100 MG/ML 2 ML VIAL IV STA (01:50)
[2018-03-15] MEDS ORDERED: LORAZEPAM 2 MG/ML 1 ML VIAL IV PRN (02:00)
[2018-03-15] MEDS ORDERED: ACETAMINOPHEN 325 MG TAB PO PRN (02:00)
[2018-03-15] MEDS ORDERED: NITROGLYCERIN 0.4 MG SL PER TAB CHARGE SL PRN (02:00)
[2018-03-15] MEDS ORDERED: GUAIFENESIN 600 MG TABCR PO ONE (02:16)
[2018-03-15] MEDS ORDERED: THIAMINE HCL INJ 100 MG in SYRINGE 9 ML IV STA (02:20)
[2018-03-15] MEDS ORDERED: ALBUT/IPRATROP 3MG/0.5MG NEB 3 ML VIAL INH PRN (02:30)
[2018-03-15 02:40] VITALS: BP 145/84; PULSE 57; TEMP 36.6; O2SAT 94; Ht 167.6 cm; Wt 93.3 kg
[2018-03-15] MEDS ORDERED: IV FLUIDS COMPLETED PRN (02:45)
--- NOTE | 2018-03-15 03:32 | HISTORY & PHYSICAL EXAMINATION ---
DATE OF ADMISSION: 03/15/2018 PRIMARY CARE DOCTOR: Dr. Suarez. CHIEF COMPLAINT: Syncope. HISTORY OF PRESENT ILLNESS: History obtained from patient and records. Medical history significant for CAD status post CABG, hx CVA as per records, hypertension, past tobacco abuse, alcohol abuse per records, colon cancer post- surgery, chemotherapy, history of TIA, chronic thrombocytopenia, mood disorder. Chronic anemia (baseline hemoglobin 13) Recent confinement last 2016 for near syncope, hypotension. As per recent outpatient [facility] Cardiology notes from 01/2018 patient complaining of myalgias, transient chest discomfort symptoms. The last 2 days patient's blood pressure noted to be in low systolic 80s-90s - unusual as per patient. Appetite is not too good. Cough productive of junky greenish yellow sputum. No chest pain, no SOB. Denies aspiration. No known sick contacts. No fever, no chills. Patient was talking to some friends today when he subsequently blacked out for about 40 seconds. No witnessed seizures, incontinence. Transient headache behind the eye about a few days ago. He fell on the left side today and woke up with achy left-sided chest/shoulder pain worse with motion and laughing. MEDICAL HISTORY: As above. SURGERIES: He has had bowel surgery, carpal tunnel surgery, tonsillectomy, adenectomy, CABG, knee surgery, sinus surgery. HOME MEDICATIONS: Include lisinopril, metoprolol, Nitrostat, Crestor, Zoloft, Hytrin, vitamin E, vitamin B12, Nexium, fish oil, flaxseed indomethacin p.r.n., Imdur ER, amlodipine, vitamin C, aspirin, vitamin D, Coenzyme Q, clopidogrel. ALLERGIES: DYE, ALLOPURINOL. FAMILY HISTORY: Esophageal cancer, heart disease, glaucoma. PERSONAL AND SOCIAL HISTORY: Past tobacco abuse, alcohol abuse records, (alcoholic drinks like 5 times a week, denies history of ETOH withdrawal), retired [employer] employee. REVIEW OF SYSTEMS: As per HPI, all 10 systems reviewed. All other ROS negative. PHYSICAL EXAMINATION: VITAL SIGNS: Blood pressure was noted to be 115/69, pulse rate 66, RR 18, temperature 36.6, sats 94 on room air. Orthostatic vitals SBP supine 132/81, standing 114/75; pulse rate supine 59, standing 65. GENERAL: Pleasant, slightly uncomfortable, no distress, obese. SKIN: loera, warm. HEENT: bespectacled, pink palpebral conjuctivae. No ptosis. Dry mucosa. NECK: Short neck, supple. CHEST: Decreased effort. no exp wheezes. L sided chest wall tenderness HEART: Regular rate and rhythm, no murmur. ABDOMEN: Distended, nontender. EXTREMITIES: No LE edema noticed. No gross deformities. tender Left shoulder w/ some limitation in motion. NEUROLOGIC: Coherent. No gross focality. LABORATORY DATA: Hemoglobin was noted to be 13.8, platelets will be 103. Sodium noted to be 140, potassium 3.8, chloride 106 anion gap is 14, serum Crea 2.7, glucose was noted to be 118. Troponin negative CT head initial read, no acute pathology. CT chest initial read, no pneumothorax. Lungs are clear. No pleural effusion, postsurgical changes. CT left upper extremity initial read, no traumatic injury of the left shoulder. EKG as per my interpretation. Rate 65, NSR, incomplete RBBB, T-wave flattening in the lateral leads. ASSESSMENT AND PLAN: 1. Syncope likely secondary to orthostasis Cough symptoms from complicated bronchitis may be contributory (no sepsis) 2. Acute renal failure, clinical dehydration 3. left-sided chest/shoulder pain likely musculoskeletal. 4. Hypertension Blood pressure on the lower side in the last 2 days secondary to respiratory tract infection. 5. CAD sp CABG 6. hx CVA as per records Status post coronary artery bypass grafting.Past tobacco abuse 7. Colon cancer status post surgery. 8. alcohol abuse per records. 9. Past tobacco abuse 10. Chronic anemia. Hemoglobin stable 11. Chronic thrombocytopenia PLAN: Observation PCU monitor creatinine response to IVF Decrease home beta jeffery dose given episodic bradycardia and continue nitro. Hold home ACEI, Norvasc, alpha agent for now until BP improved TTE RE low BP, syncope, Cardiology consult. RE BP med regimen review, given hypotension Doxycycline, mucolytic for complicated bronchitis PT and OT eval. DT precautions. DVT prophylaxis, SCDs RE thrombocytopenia. Full code. MTDD
[2018-03-15 04:23] LABS: HEMOGLOBIN 12.5 g/dL (14.0-18.0); MEAN CELL VOLUME 90.9 fL (80-100); MEAN CORPUSCULAR HEMOGLOBIN 30.7 pg (25-34); MEAN CORPUSCULAR HGB CONC 33.8 g/dl (32-36); RED CELL DISTRIBUTION WIDTH CV 13.8 % (11.5-14.5); RED CELL DISTRIBUTION WIDTH SD 45.5 fL (36.4-46.3); WHITE BLOOD COUNT 4.42 K/uL (4.8-10.8)
[2018-03-15 04:51] LABS: BASO % 0.2 %; BASO ABS # 0.01 K/uL (0-0.2); EOS % 2.7 %; EOS ABS # 0.12 K/uL (0-0.5); IG# 0.01 K/uL (0.00-0.02); LYMPH % 15.8 %; MEAN PLATELET VOLUME 9.9 fL (7.4-10.4); MONO % 7.7 %; MONO ABS # 0.34 K/uL (0.11-0.59); NEUT % 73.4 %; NEUT ABS # 3.24 K/uL (1.4-6.5); PLATELET COUNT 85 K/uL (130-400)
[2018-03-15 04:52] LABS: BLOOD UREA NITROGEN 27 mg/dl (7-18); CALCIUM 8.1 mg/dl (8.5-10.1); CARBON DIOXIDE 24 mmol/L (21-32); CREATININE 1.67 mg/dl (0.60-1.40); GLUCOSE 113 mg/dl (70-99); LIPASE 191 U/L (73-393); POTASSIUM 3.7 mmol/L (3.5-5.1); SODIUM 140 mmol/L (136-145)
--- NOTE | 2018-03-15 07:02 | DIAGNOSTIC IMAGING REPORT ---
CT OF THE HEAD WITHOUT CONTRAST CLINICAL HISTORY: Transient headache. Syncope. COMPARISON STUDY: No previous studies for comparison. TECHNIQUE: Helical axial images of the head were obtained without IV contrast. Automated exposure control was utilized for the study. A dose lowering technique was utilized adhering to the principles of ALARA. FINDINGS: No acute intracranial hemorrhage, midline shift or mass effect is present. Ventricular system is normal. Basilar cisterns are patent. There are no extra-axial collections. White matter hypodensities favor small vessel disease or old lacunar infarct. There are no findings to suggest acute dural sinus thrombosis or acute territorial infarct. There are no significant calvarial abnormalities. Visualized portions of the sinuses and mastoid air cells are clear. IMPRESSION: No acute intracranial findings. Electronically signed by: Marcel Chacon M.D. 03/15/2018 7:01 AM Dictated Date/Time: 03/15/2018 6:59 AM
--- NOTE | 2018-03-15 07:11 | DIAGNOSTIC IMAGING REPORT ---
ADDENDUM Incidental note is made of cortical fractures of the left fifth and sixth ribs. Electronically signed by: Scott Beverly M.D. 03/15/2018 7:17 AM Dictated Date/Time: 03/15/2018 7:17 AM ORIGINAL REPORT L UPPER EXTREMITY WITHOUT CT DOSE: 2127.79 mGy.cm HISTORY: Pain L shoulder pain TECHNIQUE: Multiaxial CT images of the left shoulder were performed and reformatted in the sagittal and coronal plane without the use of contrast. A dose lowering technique was utilized adhering to the principles of ALARA. COMPARISON: None. FINDINGS: No fracture or dislocation. Soft tissues are unremarkable. IMPRESSION: No fractures. Negative study. The above report was generated using voice recognition software. It may contain grammatical, syntax or spelling errors. Electronically signed by: Scott Beverly M.D. 03/15/2018 7:09 AM Dictated Date/Time: 03/15/2018 7:06 AM
--- NOTE | 2018-03-15 07:13 | DIAGNOSTIC IMAGING REPORT ---
LEFT SHOULDER 3 VIEWS CLINICAL HISTORY: Left shoulder pain. Syncope. FINDINGS: 3 views of the left shoulder are obtained. No prior studies are available for comparison at the time of dictation. The skeletal structures are osteopenic. There is no radiographic evidence of fracture or dislocation. Mild productive degenerative change is seen at the acromioclavicular joint. The glenohumeral articulation appears preserved. Mild degenerative change and sclerosis is seen in the greater tuberosity of the humeral head. The overlying soft tissues are normal as imaged. The visualized left upper lobe lung parenchyma appears clear. Midline sternotomy wires are noted. IMPRESSION: There is no radiographic evidence of left shoulder fracture or dislocation. Electronically signed by: Tyler Conteh M.D. 03/15/2018 7:12 AM Dictated Date/Time: 03/15/2018 7:09 AM
[2018-03-15 07:16] VITALS: BP 130/84; PULSE 53; TEMP 36.8; O2SAT 95
--- NOTE | 2018-03-15 08:28 | DIAGNOSTIC IMAGING REPORT ---
CT SCAN OF THE CHEST WITHOUT IV CONTRAST CLINICAL HISTORY: Left chest wall pain. COMPARISON STUDY: Chest x-ray dated 03/14/2018. TECHNIQUE: CT scan of the thorax was performed from the thoracic inlet to the upper abdomen. Images are reviewed in the axial, sagittal, and coronal planes. IV contrast was not administered for this examination as per the referring clinician. A dose lowering technique was utilized adhering to the principles of ALARA. The examination is degraded by streak artifact from the arms which could not be elevated above the chest. FINDINGS: Thyroid: Imaged portions of the thyroid gland are normal in size and attenuation. Thoracic aorta: There is mild atherosclerotic calcification of the thoracic aorta, which is normal in caliber and demonstrates standard 3-vessel arch anatomy. Heart: The patient is status post midline sternotomy. The heart is enlarged and without pericardial effusion. The coronary arteries are densely calcified. Lungs and pleural spaces: Evaluation of lung parenchyma is modestly degraded by motion artifact. There is no airspace consolidation typical for pneumonia, pleural effusion, or pneumothorax. Dependent atelectasis is observed. There is a 6 mm pleural-based nodule in the left lower lobe seen on image #196. A 4 mm pleural-based nodule is seen on the left lower lobe in image #189. Additional foci of pleural-based nodularity measuring up to 4 mm are seen along the minor fissure on image #142. The trachea and central airways are clear. Mediastinum: There is no mediastinal lymphadenopathy. Candy: Not well assessed without IV contrast. Axillae: There is no axillary lymphadenopathy. Upper abdomen: Spleen is enlarged, measuring 15 cm in length. There is evidence of hepatic steatosis. A small hiatal hernia is identified. Skeletal structures: The skeletal structures are osteopenic. No lytic or blastic bony lesions are seen. There are acute nondistracted left anterolateral 4th through 6th rib fractures. There are healed right-sided rib fractures. Arthritic change is noted in the shoulders. IMPRESSION: 1. There are acute nondistracted left anterolateral 4th through 6th rib fractures. 2. There is no airspace consolidation, pleural effusion, or pneumothorax. 3. Cardiomegaly. 4. There are scattered pleural-based nodules measure up to 6 mm. These should be followed as per the Fleischner criteria. See below. 5. Splenomegaly and hepatic steatosis. 6. Additional findings as above. Please refer to below summary of Fleischner criteria recommendations for follow-up of incidental CT nodules (Heather Headley, Guidelines for management of small pulmonary nodules detected on CT scans: A statement from the Fleischner Society, Radiology 237: [phone].) SOLID NODULES Solitary nodule size: <6 mm * low risk patients: no follow-up needed * high risk patients: optional CT at 12 months Solitary nodule size: 6-8 mm * low risk patients: follow-up at 6-12 months, then consider further follow-up at 18-24 months * high risk patients: initial follow-up CT at 6-12 months and then at 18-24 months if no change Solitary nodule size: >8 mm * either low or high risk patients - consider follow-up CT at 3 months, and/or CT-PET, and/or biopsy Multiple nodules size: <6 mm * low risk patients: no routine follow-up * high risk patients: optional CT at 12 months Multiple nodules size: 6-8 mm * low risk patients: follow-up at 3-6 months, then consider further follow-up at 18-24 months * high risk patients: follow-up at 3-6 months, then at 18-24 months if no change Multiple nodules size: >8 mm * low risk patients: follow-up at 3-6 months, then consider further follow-up at 18-24 months * high risk patients: follow-up at 3-6 months, then at 18-24 months if no change Note: newly detected indeterminate nodule in persons 35 years of age or older. * low risk patients: minimal or absent history of smoking and/or other known risk factors * high risk patients: history of smoking or of other known risk factors (e.g. first degree relative with lung cancer, or exposure to asbestos, radon, uranium) * if a nodule up to 8 mm is partly solid or is ground glass further follow-up is required after 24 months to exclude possible slow growing adenocarcinoma (ZAID) SUBSOLID NODULES Solitary pure ground-glass nodule * nodule size <6 mm - no CT follow-up required * nodule size >=6 mm - follow-up CT at 6-12 months, then every 2 years until 5 years Solitary part-solid nodule * nodule size <6 mm - no CT follow-up required * nodule size >=6 mm - follow-up CT at 3-6 months. If unchanged, and solid component remains <6 mm, then annual follow-up for 5 years Multiple subsolid nodules * nodule size <6 mm - follow-up CT at 3-6 months, consider further follow-up at 2 and 4 years if stable * nodule size >=6 mm - follow-up CT at 3-6 months, subsequent management based on the most suspicious nodule(s) Electronically signed by: Tyler Conteh M.D. 03/15/2018 8:26 AM Dictated Date/Time: 03/15/2018 7:23 AM [facility]
[2018-03-15] MEDS: PANTOprazole SOD 40 MG TAB PO SCH (08:30)
[2018-03-15] MEDS: ASPIRIN 81 MG ECTAB PO SCH (08:30)
[2018-03-15] MEDS: FLINTSTONES COMPLETE CHEWABLE TAB PO SCH (08:30)
[2018-03-15] MEDS: CLOPIDOGREL BISULFATE 75 MG TAB PO SCH (08:30)
[2018-03-15] MEDS: METOPROLOL SUCC 25MG EXT REL TAB PO SCH (08:30)
[2018-03-15] MEDS: SERTRALINE HCL 50 MG TAB PO SCH (08:31)
[2018-03-15] MEDS: ISOSORBIDE MONONITRATE 30 MG TABCR PO SCH (08:31)
[2018-03-15] MEDS: OXYCODONE/ACETAMINOPHEN 5-325 TAB PO PRN ×2 (08:39→18:01)
[2018-03-15] MEDS: NSS + 20MEQ KCL 1000ML 1,000 ML IV SCH (08:39)
--- NOTE | 2018-03-15 09:04 | ECHOCARDIOGRAM REPORT ---
*NOTICE TO RECEIVING LIBERTARIAN AGENCY This information is strictly Confidential and protected under [place] law. [place] law prohibits you from making any further disclosure of this information unless further disclosure is expressly permitted by the written consent of the person to whom it pertains or is authorized by law. A general authorization for the release of medical or other information is not sufficient for this purpose. Hospital accepts no responsibility if the information is made available to any other person, INCLUDING THE PATIENT. Interpretation Summary * Name: DOROTA WINTER Study Date: 03/15/2018 06:23 AM BP: 130/84 mmHg * Patient Location: [facility] HR: 55 * : 1950 (M/d/yy) Gender: Male Height: 66 in * Age: 67 yrs Ethnicity: [place] Weight: 205 lb * Ordering Physician: Michael Silva * Referring Physician: Self, Referred * Performed By: Amarilys Gant RDCS * * Reason For Study: SYNCOPE * BSA: 2.0 m2 * The study was technically adequate. * Compared to prior study, there is no significant change. * -- Conclusions -- * Ejection Fraction = 55-60%. * There is mild concentric left ventricular hypertrophy. * Diastolic dysfunction, Grade II (pseudonormalization pattern). * There is mild tricuspid regurgitation. * The estimated systolic pulmonary arterial pressure is 33 mmHg. Procedure Details * A complete two-dimensional transthoracic echocardiogram was performed (2D, M-mode, Doppler and color flow Doppler). Left Ventricle * The left ventricle is normal in size. * There is mild concentric left ventricular hypertrophy. * Left ventricular systolic function is normal. * Ejection Fraction = 55-60%. * Septal motion is consistent with post-operative state. * Otherwise normal wall motion. Right Ventricle * The right ventricle is borderline dilated. * The right ventricular systolic function is normal as assessed by tricuspid annular plane systolic excursion (TAPSE) (normal >1.5 cm). Atria * The left atrium is mildly dilated. * Right atrial size is normal. * There is no evidence of atrial septal defect, but resolution does not allow assessment for a patent foramen ovale. Mitral Valve * The mitral valve is normal. * There is no mitral valve stenosis. * Significant mitral regurgitation is absent. Tricuspid Valve * The tricuspid valve is normal. * There is no tricuspid stenosis. * There is mild tricuspid regurgitation. * The estimated systolic pulmonary arterial pressure is 33 mmHg. Aortic Valve * The aortic valve is trileaflet. * Aortic stenosis is absent. * Trace aortic regurgitation. Pulmonic Valve * The pulmonary valve is inadequately visualized, but the Doppler data is adequate for interpretation. * There is no pulmonic valvular stenosis. * Trace pulmonic valvular regurgitation. Great Vessels * The aortic root is normal size. Pericardium/Pleural * There is no pericardial effusion. Great Vessels * Normal inferior vena cava diameter and respiratory variation suggests normal central venous pressure. Left Ventricular Diastolic Function * Diastolic dysfunction, Grade II (pseudonormalization pattern). MMode 2D Measurements and Calculations IVSd 1.2 cm IVSs 1.6 cm LVIDd 5.2 cm LVIDs 3.7 cm LVPWd 1.4 cm LVPWs 1.6 cm IVS/LVPW 0.85 FS 27.7 % EDV(Teich) 127.5 ml ESV(Teich) 59.5 ml EF(Teich) 53.4 % EDV(cubed) 137.8 ml ESV(cubed) 52.1 ml EF(cubed) 62.2 % % IVS thick 34.0 % % LVPW thick 13.4 % LV mass(C)d 278.0 grams LV mass(C)dI 137.5 grams/m\S\2 LV mass(C)s 236.5 grams LV mass(C)sI 117.0 grams/m\S\2 SV(Teich) 68.0 ml SI(Teich) 33.7 ml/m\S\2 SV(cubed) 85.7 ml SI(cubed) 42.4 ml/m\S\2 LA dimension 4.3 cm LVAd ap4 33.5 cm\S\2 LVLd ap4 9.0 cm EDV(MOD-sp4) 105.0 ml EDV(sp4-el) 105.6 ml LVAs ap4 20.1 cm\S\2 LVLs ap4 7.9 cm ESV(MOD-sp4) 49.4 ml ESV(sp4-el) 43.7 ml EF(MOD-sp4) 52.9 % EF(sp4-el) 58.6 % LVAd ap2 27.9 cm\S\2 LVLd ap2 8.6 cm EDV(MOD-sp2) 75.2 ml EDV(sp2-el) 76.8 ml LVAs ap2 18.4 cm\S\2 LVLs ap2 8.2 cm ESV(MOD-sp2) 36.0 ml ESV(sp2-el) 35.1 ml EF(MOD-sp2) 52.1 % EF(sp2-el) 54.3 % LVLd %diff -4.47 % EDV(MOD-bp) 90.4 ml LVLs %diff 4.1 % ESV(MOD-bp) 40.7 ml EF(MOD-bp) 54.9 % SV(MOD-sp4) 55.6 ml SI(MOD-sp4) 27.5 ml/m\S\2 SV(MOD-sp2) 39.1 ml SI(MOD-sp2) 19.4 ml/m\S\2 SV(MOD-bp) 49.6 ml SI(MOD-bp) 24.6 ml/m\S\2 SV(sp4-el) 61.9 ml SI(sp4-el) 30.6 ml/m\S\2 SV(sp2-el) 41.7 ml SI(sp2-el) 20.6 ml/m\S\2 Doppler Measurements and Calculations MV E max jared 94.1 cm/sec MV A max jared 49.5 cm/sec MV E/A 1.9 MV dec time 0.22 sec Ao V2 max 142.5 cm/sec Ao max PG 8.1 mmHg Ao max PG (full) 3.1 mmHg LV V1 max PG 5.0 mmHg LV V1 max 111.6 cm/sec TR max jared 266.2 cm/sec
--- NOTE | 2018-03-15 10:48 | DIAGNOSTIC IMAGING REPORT ---
BRAIN WITHOUT CONTRAST HISTORY: Mental status change r/o cva TECHNIQUE: Multiplanar multisequence MRI of the brain was performed without the use of contrast. COMPARISON STUDY: None. FINDINGS: There are no areas of restricted diffusion to suggest acute infarction. The midline structures are intact. The paranasal sinuses are clear. The mastoid air cells are clear. The ventricles and sulci are within normal limits for age. There is no mass, hematoma, midline shift. The major vascular flow-voids at the skull base are well maintained. Age-related chronic small vessel change and atrophy IMPRESSION: No acute intracranial abnormality. Age-related chronic small vessel change and atrophy. The above report was generated using voice recognition software. It may contain grammatical, syntax or spelling errors. Electronically signed by: Scott Beverly M.D. 03/15/2018 10:46 AM Dictated Date/Time: 03/15/2018 10:43 AM
--- NOTE | 2018-03-15 11:20 | Cardiology Consultation ---
Cardiology Consultation Date of Consultation: Mar 15, 2018 Requesting Physician: Shira Attending Personnel Director: Dennis (Scott Perdomo PA-C) History of Present Illness Mr. Jamil is a complex 67-year-old male followed by Dr. Kaiser and Maria Del Carmen Sam PA-C He is being seen at the request of Dr. Silva following an episode of syncope. Reason for consultation is low blood pressure, blood pressure medication review. The patient describes working harder than his norm over the last few days, feeling stone bins. He observed, via a blood pressure monitor supplied by the [employer], low blood pressure over the last few days. He reports blood pressure readings as low as 85/53 with associated lightheadedness/ dizziness. He notes at that time resting and drinking more fluids with transient improvement. He also notes having a sore throat over last couple days as well as considerable mucus production without fevers or chills. On the day of admission he notes doing stuff outside throughout the day then going to [place] [employer] later in the evening around 6 PM. He notes talking to a marcia about [place] and laughing out loud which then lead to a significant cough spell. The next thing he remembers is waking up on the ground. He was apparently out for around 30 seconds. He did not experience any bowel or bladder incontinence. The episode was witnessed by multiple bystanders with no seizure activity noted. No tongue biting. Laboratory work on presentation revealed acute on chronic renal dysfunction. Chest x-ray showed no acute cardiopulmonary disease. Chest CT showed acute non- distracted left anterior lateral fourth through sixth rib fractures. EKG in the emergency room revealed normal his rhythm at 67 bpm with a first-degree AV block , incomplete right bundle branch block, nonspecific T-wave abnormality. Repeat EKG this morning reveals sinus rhythm at 60 bpm with a first-degree AV block, incomplete right bundle branch block pattern. The patient was admitted by Dr. Silva and given IV fluids. His renal dysfunction has improved. He is feeling better overall. (Scott Perdomo PA-C) Past Medical/Surgical History Problem List: ASCVD Status post CABG 5 in 1992 Status post PCI of the SVG to the first obtuse marginal in September 2016 Last cardiac catheterization transpired at [facility] on 11/04/2016. At that time the VICTORIA to LAD graft was patent. The mid and distal LAD was noted to have diffuse mild disease with stenosis up to 50%. This appeared to be slightly better compared to the prior cardiac catheterization. The TERRY to RCA graft was patent. The SVG to om 1 graft had diffuse moderate disease. The previously placed stent in this graft was patent. The SVG to OM to was noted to have diffuse disease into serial 50% stenoses. Fractional flow reserve evaluation revealed that these lesions were not hemodynamically significant and ongoing medication management was recommended. Long-standing labile hypertension with history of hypotension limiting antianginal medicines Chronic dizziness Dyslipidemia. Statin intolerance. History of transient ischemic attack Gout GERD Chart history of alcohol abuse History of colon cancer status post partial sigmoid colectomy Carpal tunnel syndrome status post surgical intervention Kidney stones BPH Major depressive disorder Osteoarthritis Arthroscopic knee surgery Tonsillectomy as a child Status post toe surgery (Scott Perdomo PA-C) Family History FH: esophageal cancer FATHER Positive for CAD in both parents. Father with esophageal cancer. Sister with glaucoma. (Scott Perdomo PA-C) FH: esophageal cancer FATHER (Herbie Collins DO) Social History Former smoker, quit 25+ years ago. Alcohol: Patient notes drinking whiskey, typically 3 drinks 4 days per week. No illegal drug use. . 2 children. Retired. [place] , [employer]. Smoking Status: Former Smoker Marital Status: Occupation: retired (Scott Perdomo PA-C) Review Of Systems General: No fevers, chills, or night sweats. HEENT: Glasses. No headaches. No head trauma. Cardiovascular: Stable angina. No new or worsening chest pain/exertional dyspnea. Pulmonary: See above. Gastrointestinal: No nausea, vomiting, diarrhea. : BPH, on Hytrin for many many years. Skin: No rash. Musculoskeletal: Left shoulder pain. Left rib pain. Knee pain. Neurological: History of TIA. No history of seizure disorder. Complete review of system is otherwise as stated above, negative, or noncontributory. (Scott Perdomo PA-C) Allergies Coded Allergies: Iodinated Diagnostic Agents (Verified Allergy, Severe, ANAPHYLAXIS, 03/14/18 ) noted from 09/25/13 Allopurinol (Unverified Adverse Reaction, Severe, SORE JOINTS, 03/14/18) Medications Reported Home Medications Medications Dose Route/Sig Max Daily Dose Days Date Category Dose Instructions Hytrin (Terazosin HCl) 5 Mg Cap 5 Mg PO DAILY 03/14/18 Reported Toprol-Xl (Metoprolol Succinate) 25 Mg Tabcr 25 Mg PO DAILY 03/14/18 Reported Zestril (Lisinopril) 5 Mg Tab 5 Mg PO DAILY 03/14/18 Reported Amlodipine Besylate (Amlodipine Besylate (Bulk)) 1 Pow Pow 2.5 Mg PO DAILY 03/14/18 Reported Indocin (Indomethacin) 50 Mg Cap 50 Mg PO DAILY 01/27/17 Reported NEEDED FOR GOUT SYMPTOMS Clopidogrel (Clopidogrel Bisulfate) 75 Mg Tab 75 Mg PO DAILY 01/27/17 Reported Imdur Ext Rel (Isosorbide Mononitrate) 30 Mg Tabcr 30 Mg PO DAILY 01/27/17 Reported Vitamin B-12 (Cyanocobalamin) 1,000 Mcg Tab 1,000 Mcg PO DAILY 01/27/17 Reported Vitamin D (Cholecalciferol) 5,000 Unit Tab 5,000 Units PO DAILY 01/27/17 Reported [place]-3 (Fish Oil) 1 Ea Cap 1 Cap PO DAILY 10/05/16 Reported Nitrostat (Nitroglycerin) 0.4 Mg Tab 0.4 Mg UT PRN 10/05/16 Reported Aspirin Ec (Aspirin) 81 Mg Tab 81 Mg PO DAILY 10/05/16 Reported Crestor (Rosuvastatin Calcium) 40 Mg Tab 40 Mg PO - 30 04/19/15 Reported Flaxseed Oil 1000 mg (Flaxseed (Linseed)) 1 Cap Cap 1 Tab PO DAILY 09/25/13 Reported Coq10 (Coenzyme Q10 (Ubidecarenone)) 200 Mg Cap 1 Tablet PO DAILY 09/25/13 Reported E-400 (Vitamin E) 400 Unit Cap 1 Tab PO DAILY 09/25/13 Reported Vitamin C (Ascorbic Acid) 500 Mg Cap 500 Mg PO DAILY 09/25/13 Reported Zoloft (Sertraline HCl) 100 Mg Tab 150 Mg PO DAILY 08/13/10 Reported Nexium (Esomeprazole Magnesium) 40 Mg Capcr 40 Mg PO Q2D 08/13/10 Reported (Scott Perdomo PA-C) Physical Exam Vital Signs (Last 8hrs): Last 8 Hrs Date Time Temp Pulse Resp B/P (MAP) Pulse Ox O2 Delivery O2 Flow Rate FiO2 03/15/18 07:16 36.8 53 17 130/84 (99) 95 Room Air General: Alert and Oriented x3. NAD. HEENT: Normocephalic Atraumatic. PER, EOMI, conjunctiva and sclera clear Neck: Neck veins are flat. Right carotid bruit. No hepatojugular reflux. Respiratory: Diminished. Decreased. No abnormal breath sounds auscultated. Cardiovascular: Regular rate and rhythm, 60 bpm. No murmurs. No rub. No gallop. PMI is nondisplaced. Abdomen: + BS. Abdomen is soft, nontender, without overt organomegaly. Extremities: No clubbing, cyanosis, or edema. Distal pulses are 2/4 bilaterally. Neuro: No focal deficits. Psychiatric: Normal affect. (Scott Perdomo, TERRY) Data Last 24 Hours Test 03/14/18 22:54 03/15/18 04:11 White Blood Count 5.00 K/uL 4.42 K/uL Red Blood Count 4.37 M/uL 4.07 M/uL Hemoglobin 13.8 g/dL 12.5 g/dL Hematocrit 39.9 % 37.0 % Mean Corpuscular Volume 91.3 fL 90.9 fL Mean Corpuscular Hemoglobin 31.6 pg 30.7 pg Mean Corpuscular Hemoglobin Concent 34.6 g/dl 33.8 g/dl Platelet Count 103 K/uL 85 K/uL Mean Platelet Volume 10.0 fL 9.9 fL Neutrophils (%) (Auto) 72.4 % 73.4 % Lymphocytes (%) (Auto) 15.8 % 15.8 % Monocytes (%) (Auto) 9.0 % 7.7 % Eosinophils (%) (Auto) 2.0 % 2.7 % Basophils (%) (Auto) 0.6 % 0.2 % Neutrophils # (Auto) 3.62 K/uL 3.24 K/uL Lymphocytes # (Auto) 0.79 K/uL 0.70 K/uL Monocytes # (Auto) 0.45 K/uL 0.34 K/uL Eosinophils # (Auto) 0.10 K/uL 0.12 K/uL Basophils # (Auto) 0.03 K/uL 0.01 K/uL RDW Standard Deviation 44.8 fL 45.5 fL RDW Coefficient of Variation 13.7 % 13.8 % Immature Granulocyte % (Auto) 0.2 % 0.2 % Immature Granulocyte # (Auto) 0.01 K/uL 0.01 K/uL Activated Partial Thromboplast Time 25.7 SECONDS Partial Thromboplastin Ratio 1.0 Sodium Level 142 mmol/L 140 mmol/L Potassium Level 3.8 mmol/L 3.7 mmol/L Chloride Level 106 mmol/L 107 mmol/L Carbon Dioxide Level 22 mmol/L 24 mmol/L Anion Gap 14.0 mmol/L 9.0 mmol/L Blood Urea Nitrogen 29 mg/dl 27 mg/dl Creatinine 2.37 mg/dl 1.67 mg/dl Est Creatinine Clear Calc Drug Dose 32.3 ml/min 45.9 ml/min Estimated GFR () 31.7 48.3 Estimated GFR (Non- 27.3 41.7 BUN/Creatinine Ratio 12.1 16.2 Random Glucose 118 mg/dl 113 mg/dl Calcium Level 8.2 mg/dl 8.1 mg/dl Magnesium Level 2.4 mg/dl Total Bilirubin 0.4 mg/dl Direct Bilirubin 0.1 mg/dl Aspartate Amino Transf (AST/SGOT) 23 U/L Alanine Aminotransferase (ALT/SGPT) 33 U/L Alkaline Phosphatase 55 U/L Total Creatine Kinase 197 U/L Creatine Kinase MB 2.6 ng/ml Creatine Kinase MB Ratio 1.3 Troponin I < 0.015 ng/ml < 0.015 ng/ml Total Protein 7.2 gm/dl Albumin 3.8 gm/dl Thyroid Stimulating Hormone (TSH) 2.380 uIu/ml Platelet Estimate DECREASED Lipase 191 U/L Ethyl Alcohol mg/dL < 3.0 mg/dl Admission chest x-ray, shoulder x-ray, upper extremity CT, head CT, chest CT, and brain MRI reviewed. Continuous telemetry monitoring reveals sinus. There are brief runs of bradycardia to the mid 40s during anticipated hours of sleep. Current heart rate is 60 bpm. No arrhythmias observed. March 15, 2018 Resting Echo Interpretation Summary ([facility], Dr. Collins): The study was technically adequate. Compared to prior study, there is no significant change. Ejection Fraction = 55-60%. There is mild concentric left ventricular hypertrophy. Diastolic dysfunction, Grade II (pseudonormalization pattern). There is mild tricuspid regurgitation. The estimated systolic pulmonary arterial pressure is 33 mmHg. (Scott Perdomo, TERRY) Assessment & Plan Reflex syncope (Situation syncope, cough syncope) Intravascular volume depletion Symptomatic hypotension History of long-standing labile blood pressure issues; hypotension limiting anti -angina medicines No evidence of significant bradycardia via telemetry thus far. Stable complex coronary artery disease with preserved LV systolic function Dyslipidemia with statin intolerance, tolerating Repatha (Evolocumab) Recommendations: Fluid resuscitation Hold amlodipine (5 mg/day), Terazosin ((5 mg/day), and lisinopril (10 mg/day). He will likely require resumption of these medications at lower dosing down the road. Continue metoprolol, Imdur, and aspirin as prescribed. Note: Toprol XL decreased from 25 mg/day to 12.5 mg/day on admission. Outpatient Zio monitor 14 days Reduce alcohol intake. Further recommendations pending the above, evaluation by Dr. Collins, and his ongoing hospitalization. (Scott Perdomo PA-C) Cardiology Attending Physician: Patient seen and examined at the bedside. Reports syncopal episode after consuming alcoholic beverages at the [employer]. Notes working extended hours in the high heat prior to episode. Noted to be dehydrated with acute renal insufficiency on admission. No dysrhythmias on telemetry. Denies chest discomfort. ECG stable. No new regional wall motion on normalities on echocardiogram. PE: VSS. Gen: NAD, AAO x3. Heart: Regular, normal S1, S2, 1/6 systolic ejection murmur heard best at the right second intercostal space. Lungs are clear without rales, rhonchi, wheeze. The tremor is warm and dry without clubbing, cyanosis, or edema. A/P: Agree with PA-C history, physical exam, assessment and plan. Patient admitted with dehydration and cough syncope. Recommend reducing daily alcohol intake. Encourage oral hydration. Continue IV hydration with normal saline. Antihypertensive medications on hold as noted above. Plan to reinitiate therapy as tolerated likely at reduced dose. Outpatient 14 days ZIO monitor. Continue telemetry monitoring during hospitalization. Trent Collins DO, [facility] (Herbie Collins DO)
[2018-03-15 12:14] VITALS: BP 134/72; PULSE 63; TEMP 36.7; O2SAT 96
[2018-03-15 15:16] VITALS: BP 144/80; PULSE 61; TEMP 36.5; O2SAT 96
[2018-03-15] MEDS ORDERED: MoRPHine SULFATE 4 MG/ML 1 ML CARP\\VIAL IV PRN (17:00)
[2018-03-15] MEDS ORDERED: THIAMINE HCL 100 MG TAB PO STA (17:05)
[2018-03-15] MEDS ORDERED: GABAPENTIN 600 MG TAB PO SCH (17:15)
[2018-03-15] MEDS ORDERED: LORAZEPAM 1 MG TAB PO PRN (17:15)
[2018-03-15] MEDS ORDERED: LORAZEPAM 0.5 MG TAB PO PRN (17:15)
[2018-03-15] MEDS: GABAPENTIN 1200MG LOADING DOSE PO SCH (17:56)
[2018-03-15 19:09] VITALS: BP 129/73; PULSE 59; TEMP 36.6; O2SAT 94
--- NOTE | 2018-03-15 20:46 | Progress Note ---
Progress Note Date of Service Mar 15, 2018. Progress Note Patient seen and examined at the bedside Having dinner, allow me to evaluate him States he feels improved compared to admission Denies dizziness, presyncope, shortness of breath, chest pain, palpitations Reports left shoulder pain worse with movement Also has left sided rib pain No tremors, hallucinations, headache, abdominal pain, nausea Denies other symptoms Vital signs noted and reviewed clear breasts bilaterally no rales wheezes Positive tenderness on the right shoulder Normal rate regular rhythm no murmurs Syncope likely secondary to orthostasis and vasovagal reflex Continue IV fluids Beta-jeffery reduced Other antihypertensives on hold Appreciate cardiology recommendations Status post fall secondary to syncope Left shoulder pain without fracture Left lateral ribs fractures fourth to sixth Check MRI of the shoulder Continue analgesics Encourage incentive spirometry Acute renal failure Likely prerenal etiology Creatinine improving Continue IV and assess Acute bronchitis Chest x-ray no signs of pneumonia Continue doxycycline Alcoholism No signs of overt withdrawal We will start alcohol withdrawal protocol including gabapentin taper Other diagnoses and plan of care per Dr. Centeno's notes Ana Myers MD
[2018-03-15] MEDS: GUAIFENESIN 600 MG TABCR PO SCH (21:29)
[2018-03-15] MEDS: DOXYCYCLINE HYCLATE 100 MG CAP PO SCH (21:29)
[2018-03-15 23:46] VITALS: BP 132/81; PULSE 71; TEMP 37; O2SAT 97
[2018-03-15] MEDS: GABAPENTIN 600MG Q6H DOSE PO SCH (23:52)
[2018-03-16] VITALS (8 sets, daily range): BP systolic 123–156; BP diastolic 64–89; PULSE 51–73; TEMP 36.4–36.8; O2SAT 93–98
[2018-03-16] MEDS: NSS + 20MEQ KCL 1000ML 1,000 ML IV SCH ×2 (01:36→16:53)
[2018-03-16 04:33] LABS: CALCIUM 8.1 mg/dl (8.5-10.1); CREATININE 1.24 mg/dl (0.60-1.40); POTASSIUM 4.6 mmol/L (3.5-5.1)
[2018-03-16] MEDS: GABAPENTIN 600MG Q6H DOSE PO SCH (06:15)
[2018-03-16] MEDS: ASPIRIN 81 MG ECTAB PO SCH (07:42)
[2018-03-16] MEDS: GUAIFENESIN 600 MG TABCR PO SCH ×2 (07:42→21:07)
[2018-03-16] MEDS: FLINTSTONES COMPLETE CHEWABLE TAB PO SCH (07:42)
[2018-03-16] MEDS: CLOPIDOGREL BISULFATE 75 MG TAB PO SCH (07:42)
[2018-03-16] MEDS: METOPROLOL SUCC 25MG EXT REL TAB PO SCH (07:43)
[2018-03-16] MEDS: ISOSORBIDE MONONITRATE 30 MG TABCR PO SCH (07:43)
[2018-03-16] MEDS: SERTRALINE HCL 50 MG TAB PO SCH (07:43)
[2018-03-16] MEDS: PANTOprazole SOD 40 MG TAB PO SCH (07:43)
[2018-03-16] MEDS: THIAMINE HCL 100 MG TAB PO SCH (07:44)
[2018-03-16] MEDS: DOXYCYCLINE HYCLATE 100 MG CAP PO SCH ×2 (07:44→21:06)
[2018-03-16 08:19] LABS: HEMATOCRIT 38.7 % (42-52); HEMOGLOBIN 13.1 g/dL (14.0-18.0); MEAN CELL VOLUME 92.6 fL (80-100); MEAN CORPUSCULAR HEMOGLOBIN 31.3 pg (25-34); MEAN CORPUSCULAR HGB CONC 33.9 g/dl (32-36); RED CELL DISTRIBUTION WIDTH SD 47.3 fL (36.4-46.3); WHITE BLOOD COUNT 3.95 K/uL (4.8-10.8)
[2018-03-16 08:21] LABS: MEAN PLATELET VOLUME 10.9 fL (7.4-10.4); PLATELET COUNT 94 K/uL (130-400)
[2018-03-16 08:58] LABS: BASO % 0.3 %; BASO ABS # 0.01 K/uL (0-0.2); EOS % 3.3 %; EOS ABS # 0.13 K/uL (0-0.5); LYMPH % 22.8 %; MONO % 11.9 %; MONO ABS # 0.47 K/uL (0.11-0.59); NEUT % 61.7 %; NEUT ABS # 2.44 K/uL (1.4-6.5)
[2018-03-16] MEDS ORDERED: ROSUVASTATIN CALCIUM 20 MG TAB PO SCH (09:00)
--- NOTE | 2018-03-16 09:25 | Progress Note ---
Medicine Progress Note Date & Time of Visit: Mar 16, 2018 at 09:22. Subjective Seen resting in bed, comfortable States he feels improved today compared to yesterday Denies weakness, dizziness when ambulating in the room Left shoulder pain and left rib pain improving No other pain in his body Does report poor urinary flow and some straining Denies other symptoms Objective Last 8 Hrs Date Time Temp Pulse Resp B/P (MAP) Pulse Ox O2 Delivery O2 Flow Rate FiO2 03/16/18 08:15 36.6 64 18 124/64 (84) 93 Room Air 03/16/18 08:00 69 20 03/16/18 08:00 95 Room Air 03/16/18 03:31 36.8 51 17 123/80 (94) 95 Room Air Physical Exam: General-oriented 3, not in distress, speaking in sentences Head- atraumatic Eyes- anicteric ENT- oropharynx clear Neck- supple, no JVD, no adenopathy, no thyromegaly Lungs- clear to auscultation bilaterally, no rales wheezes No tenderness on the left lateral ribs Heart-normal rate, regular rhythm; no murmur Abdomen- normal bowel sounds, soft, nontender Extremities- Left shoulder with mild edema and warmth, limited range of motion due to pain, good muscle strength no pretibial edema, no calf tenderness; peripheral pulses intact Neuro- alert, oriented x 3; no gross focal motor or sensory deficits Skin- warm & dry Laboratory Results: Last 24 Hours Test 03/16/18 03:57 03/16/18 04:02 Sodium Level 141 mmol/L Potassium Level 4.6 mmol/L Chloride Level 109 mmol/L Carbon Dioxide Level 28 mmol/L Anion Gap 4.0 mmol/L Blood Urea Nitrogen 21 mg/dl Creatinine 1.24 mg/dl Est Creatinine Clear Calc Drug Dose 61.8 ml/min Estimated GFR () 69.3 Estimated GFR (Non- 59.8 BUN/Creatinine Ratio 16.8 Random Glucose 91 mg/dl Calcium Level 8.1 mg/dl Vitamin B12 Level 1335 pg/mL Folate 22.88 ng/mL White Blood Count 3.95 K/uL Red Blood Count 4.18 M/uL Hemoglobin 13.1 g/dL Hematocrit 38.7 % Mean Corpuscular Volume 92.6 fL Mean Corpuscular Hemoglobin 31.3 pg Mean Corpuscular Hemoglobin Concent 33.9 g/dl Platelet Count 94 K/uL Mean Platelet Volume 10.9 fL Neutrophils (%) (Auto) 61.7 % Lymphocytes (%) (Auto) 22.8 % Monocytes (%) (Auto) 11.9 % Eosinophils (%) (Auto) 3.3 % Basophils (%) (Auto) 0.3 % Neutrophils # (Auto) 2.44 K/uL Lymphocytes # (Auto) 0.90 K/uL Monocytes # (Auto) 0.47 K/uL Eosinophils # (Auto) 0.13 K/uL Basophils # (Auto) 0.01 K/uL RDW Standard Deviation 47.3 fL RDW Coefficient of Variation 14.0 % Immature Granulocyte % (Auto) 0.0 % Immature Granulocyte # (Auto) 0.00 K/uL Assessment & Plan Syncope likely secondary to orthostasis and vasovagal reflex Metoprolol has been reduced from 50-25 mg daily Imdur 30 mg daily continued Amlodipine and lisinopril discontinued Resume terazosin but reduce to 2 mg daily today as patient having poor urinary flow, straining Monitor orthostasis Appreciate cardiology recommendations Status post fall secondary to syncope Left lateral ribs fractures fourth to sixth Rule out left shoulder fracture, muscle tear MRI of the shoulder pending Pain improving Continue analgesics Encourage incentive spirometry Continue PT OT Acute renal failure Likely prerenal etiology Creatinine back to normal Continue normal saline Acute bronchitis Chest x-ray no signs of pneumonia Continue doxycycline Alcoholism No signs of overt withdrawal Continue alcohol withdrawal protocol including gabapentin taper CAD sp CABG Troponins negative EKG no signs of ischemia History of CVA as per records Status post coronary artery bypass grafting Continue aspirin, Plavix, metoprolol, statin Colon cancer status post surgery. Chronic anemia and thrombocytopenia Levels at baseline DVT prophylaxis SCDs CODE STATUS Full code Disposition Anticipate discharge to home with home of service is medically stable Current Inpatient Medications: Current Inpatient Medications Medications (Trade) Dose Ordered Sig/Donnie Route Start Time Stop Time Status Last Admin Dose Admin Oxycodone/ Acetaminophen (Percocet 5-325mg Tab) 1 tab Q4H PRN PO 03/15/18 01:15 03/29/18 01:14 03/15/18 18:01 1 TAB Prochlorperazine Edisylate 5 mg/ Syringe 5 ml @ 5 mls/min Q6H PRN IV 03/15/18 01:15 04/14/18 01:14 Acetaminophen (Tylenol Tab) 325 mg Q6H PRN PO 03/15/18 02:00 04/14/18 01:59 Nitroglycerin (Nitrostat Tab) 0.4 mg UD PRN SL 03/15/18 02:00 04/14/18 01:59 Aspirin (Ecotrin Tab) 81 mg DAILY PO 03/15/18 09:00 04/14/18 08:59 03/16/18 07:42 81 MG Clopidogrel Bisulfate (plAVix TAB) 75 mg DAILY PO 03/15/18 09:00 04/14/18 08:59 03/16/18 07:42 75 MG Isosorbide Mononitrate (Imdur Ext Rel Tab) 30 mg DAILY PO 03/15/18 09:00 04/14/18 08:59 03/16/18 07:43 30 MG Metoprolol Succinate (Toprol Xl Tab) 12.5 mg DAILY PO 03/15/18 09:00 04/14/18 08:59 03/16/18 07:43 12.5 MG Rosuvastatin Calcium (Crestor Tab) 40 mg MoWeFr@0900 PO 03/16/18 09:00 04/15/18 08:59 03/16/18 07:42 40 MG Sertraline HCl (Zoloft Tab) 150 mg DAILY PO 03/15/18 09:00 04/14/18 08:59 03/16/18 07:43 150 MG Pantoprazole Sodium (Protonix Tab) 40 mg QAM PO 03/15/18 09:00 04/14/18 08:59 03/16/18 07:43 40 MG Doxycycline Hyclate (Vibramycin Cap) 100 mg BID PO 03/15/18 21:00 03/22/18 20:59 03/16/18 07:44 100 MG Lorazepam (Ativan Inj) 0.5 mg Q4H PRN IV 03/15/18 02:00 04/14/18 01:59 Thiamine HCl (Vitamin B-1 Tab) 100 mg QAM PO 03/16/18 09:00 04/15/18 08:59 03/16/18 07:44 100 MG Multivitamins (Flintstones Complete Tab) 1 tab QAM PO 03/15/18 09:00 04/14/18 08:59 03/16/18 07:42 1 TAB Folic Acid (Folvite Tab) 1 mg QAM PO 03/15/18 09:00 04/14/18 08:59 03/16/18 07:44 1 MG Guaifenesin (Mucinex Contr Rel Tab) 600 mg Q12 PO 03/15/18 21:00 04/14/18 20:59 03/16/18 07:42 600 MG Albuterol/ Ipratropium (Duoneb) 3 ml Q2H PRN INH 03/15/18 02:30 04/14/18 02:29 Miscellaneous (Iv Fluids Completed) 1 ea PRN PRN N/A 03/15/18 02:45 03/15/19 02:44 Potassium Chloride/Sodium Chloride 1,000 ml @ 60 mls/hr [id number] IV 03/15/18 08:45 04/14/18 08:44 03/16/18 01:36 60 MLS/HR Morphine Sulfate (MoRPHine SULFATE INJ) 4 mg Q6H PRN IV 03/15/18 17:00 03/29/18 16:59 03/15/18 21:30 4 MG Lorazepam (Ativan Tab) 1 mg ONE PRN PO 03/15/18 17:15 Lorazepam (Ativan Tab) 0.5 mg Q6H PRN PO 03/15/18 17:15 04/14/18 17:14 Gabapentin (Neurontin Tab) 1,200 mg TODAY@1800 PO 03/15/18 18:00 04/14/18 17:59 03/15/18 17:56 1,200 MG Gabapentin (Neurontin Tab) 600 mg Q8H PO 03/16/18 14:00 03/17/18 06:01 Gabapentin (Neurontin Tab) 600 mg Q12H PO 03/17/18 18:00 03/18/18 06:01 Gabapentin (Neurontin Tab) 600 mg Q24H PO 03/19/18 06:00 03/19/18 06:01
--- NOTE | 2018-03-16 10:26 | Cardiology Follow-Up ---
Subjective General Date of Service: Mar 16, 2018. Chief Complaint: Syncope Pt evaluation today including: conversation w/ patient, physical exam, chart review, lab review, review of studies, review of inpatient medication list History of Present Illness Patient seen and examined. He notes feeling quite a bit better though still with mild dizziness with positional changes. He also notes left shoulder discomfort and left rib discomfort when coughing or laughing. He absolutely denies angina. No difficulty taking a deep breath in. No orthopnea or PND. No peripheral edema. No palpitations. Continuous telemetry monitoring reveals sinus with first-degree AV block. Heart rates are typically in the 50-60 bpm range. No significant bradycardia or pauses. No atrial fibrillation/flutter. No significant ventricular arrhythmias. Allergies Coded Allergies: Iodinated Diagnostic Agents (Verified Allergy, Severe, ANAPHYLAXIS, 03/14/18 ) noted from 09/25/13 Allopurinol (Unverified Adverse Reaction, Severe, SORE JOINTS, 03/14/18) Social History Smoking Status: Former Smoker Hx Tobacco Use In Past Year?: No (Quit 30 yrs ago) Hx Alcohol Use - Type And Amou: Yes (2 whiskey drinks per day ) Hx Substance Use - Type And Am: No Problem List Medical Problems: (1) Acute kidney injury Status: Acute (2) Bronchitis Status: Acute (3) Left shoulder pain Status: Acute (4) Orthostatic hypotension Status: Acute Review of Systems Respiratory: No cough, No sputum, No wheezing, No shortness of breath, No dyspnea on exertion, No hemoptysis Cardiac: No chest pain, No orthopnea, No PND, No edema, No claudication Physical Exam Vital Signs Last Vital Signs Documentation Date Time Temp Pulse Resp B/P (MAP) Pulse Ox O2 Delivery O2 Flow Rate FiO2 03/16/18 08:15 36.6 64 18 124/64 (84) 93 Room Air Physical Exam Constitutional: Level of Distress: NAD Ambulation: ambulating normally Psychiatric: Mental Status: active & alert Orientation: to time, to place, to person Memory: recent memory normal, remote memory normal Head: normocephalic, atraumatic Eyes: Pupils: PERRLA Neck: pertinent finding (Normal JVP) Lungs: Respiratory effort: no dyspnea Auscultation: breath sounds normal, no wheezing, no rales/crackles, no rhonchi Cardiovascular: Heart Auscultation: RRR, normal S1, normal S2, no murmurs, no rubs Peripheral Pulses: Radial Pulse: normal on the left, normal on the right Dorsalis Pedis Pulse: decreased on the left, decreased on the right Abdomen: Bowel Sounds: normal Inspection & Palpation: soft, non-distended, no masses Extremities: no cyanosis, no edema, no clubbing Neurologic: Cranial Nerves: grossly intact Assessment and Plan Assessment and Plan Reflex syncope (Situation syncope, cough syncope) Improving evidence of intravascular volume depletion/ Symptomatic hypotension, resolved. History of long-standing labile blood pressure issues; hypotension limiting anti -angina medicines No evidence of significant arrhythmias on telemetry Stable complex coronary artery disease Preserved LV systolic function Dyslipidemia with statin intolerance, tolerating Repatha (Evolocumab) Recommendations: Continue metoprolol, Imdur, and aspirin as prescribed. Note: Toprol XL decreased from 25 mg/day to 12.5 mg/day this admission. Terazosin resumed at 2 mg due to BPH issues. Continue to hold amlodipine (5 mg/day) and lisinopril (10 mg/day) for now. He may require resumption of these medications at lower dosing down the road. Reduce alcohol intake advised. Outpatient Zio monitor 14 days (office aware, will call patient) Outpatient cardiology follow-up in 1-2 weeks (office aware, will call patient) Please call if any questions or concerns Cardiology Attending Physician: Patient seen and examined at the bedside. Reports a few episodes of lightheadedness earlier today. Denies chest pain or palpitations. No sustained dysrhythmias on telemetry. PE: VSS. Gen: NAD, AAO x3. Heart: Regular, normal S1, S2, 1/6 systolic ejection murmur heard best at the right second intercostal space. Lungs are clear without rales, rhonchi, wheeze. The tremor is warm and dry without clubbing, cyanosis, or edema. A/P: Agree with PA-C history, physical exam, assessment and plan. Continue to restart anti-hypertensive therapies gradually as noted above. 14 days ZIO monitor as outpatient. Repeat basic metabolic panel in the a.m. [facility] Results Last 24 Hours Test 03/16/18 03:57 03/16/18 04:02 Sodium Level 141 mmol/L Potassium Level 4.6 mmol/L Chloride Level 109 mmol/L Carbon Dioxide Level 28 mmol/L Anion Gap 4.0 mmol/L Blood Urea Nitrogen 21 mg/dl Creatinine 1.24 mg/dl Est Creatinine Clear Calc Drug Dose 61.8 ml/min Estimated GFR () 69.3 Estimated GFR (Non- 59.8 BUN/Creatinine Ratio 16.8 Random Glucose 91 mg/dl Calcium Level 8.1 mg/dl Vitamin B12 Level 1335 pg/mL Folate 22.88 ng/mL White Blood Count 3.95 K/uL Red Blood Count 4.18 M/uL Hemoglobin 13.1 g/dL Hematocrit 38.7 % Mean Corpuscular Volume 92.6 fL Mean Corpuscular Hemoglobin 31.3 pg Mean Corpuscular Hemoglobin Concent 33.9 g/dl Platelet Count 94 K/uL Mean Platelet Volume 10.9 fL Neutrophils (%) (Auto) 61.7 % Lymphocytes (%) (Auto) 22.8 % Monocytes (%) (Auto) 11.9 % Eosinophils (%) (Auto) 3.3 % Basophils (%) (Auto) 0.3 % Neutrophils # (Auto) 2.44 K/uL Lymphocytes # (Auto) 0.90 K/uL Monocytes # (Auto) 0.47 K/uL Eosinophils # (Auto) 0.13 K/uL Basophils # (Auto) 0.01 K/uL RDW Standard Deviation 47.3 fL RDW Coefficient of Variation 14.0 % Immature Granulocyte % (Auto) 0.0 % Immature Granulocyte # (Auto) 0.00 K/uL
[2018-03-16] MEDS: OXYCODONE/ACETAMINOPHEN 5-325 TAB PO PRN (12:25)
--- NOTE | 2018-03-16 14:09 | DIAGNOSTIC IMAGING REPORT ---
LEFT SHOULDER MRI HISTORY: Fall. Left shoulder pain. r/o fracture, muscle tear TECHNIQUE: Multiplanar multisequence MRI of the left shoulder was performed without contrast. COMPARISON STUDY: Left shoulder CT and radiograph 03/15/2018. FINDINGS: AC joint: There is edema both within and surrounding the AC joint. However, the acromioclavicular joint remains aligned. This likely represents coracoclavicular ligament disruption consistent with a grade I acromioclavicular separation. Rotator cuff: Moderate edema within the supraspinatus tendon consistent with tendinopathy. There is also small focal partial tear within the distal supraspinatus tendon. No evidence for full-thickness tear. The subscapularis, infraspinatus, and teres minor tendons are intact. Fluid within the subacromial/subdeltoid bursa. However, this is likely due to the adjacent muscular injury. Labrum: Diffuse abnormal labrum consistent with circumferential degeneration/tear. Biceps tendon: Intact Bones: No fracture or dislocation. Cartilage: Mild cartilage thinning at the glenohumeral joint consistent with degenerative change. Miscellaneous: There is edema at the both within and surrounding the distal trapezius muscle and proximal attachment of the deltoid muscle. This consistent with a muscular strains. IMPRESSION: 1. Grade I acromioclavicular separation. 2. Muscular strains of the distal trapezius muscle and proximal attachment of the deltoid muscle. 3. Supraspinatus tendinopathy with an associated small distal partial tear. No evidence for full-thickness rotator cuff tear. 4. Diffusely abnormal labrum consistent with circumferential degeneration/tear. 5. No fracture or dislocation within the shoulder. Electronically signed by: Tunde Montalvo M.D. 03/16/2018 2:08 PM Dictated Date/Time: 03/15/2018 11:35 PM
[2018-03-16] MEDS: GABAPENTIN 600MG Q8H DOSE PO SCH ×2 (14:33→21:06)
[2018-03-16] MEDS: GABAPENTIN 1200MG LOADING DOSE PO SCH (16:53)
--- NOTE | 2018-03-16 17:49 | Orthopedic Consultation ---
Orthopedic Consultation Date of Consultation: Mar 16, 2018. Attending Physician: Abdoul Myers MD Reason for Consultation: Left shoulder pain History of Present Illness Patient had acute injury in a fall due to syncopal episode has some pain in his left shoulder Past Medical/Surgical History Medical Problems: (1) Acute kidney injury Status: Acute (2) Bronchitis Status: Acute (3) Left shoulder pain Status: Acute (4) Orthostatic hypotension Status: Acute Family History FH: esophageal cancer FATHER Social History Smoking Status: Former Smoker Marital Status: Housing Status: lives with family Occupation Status: retired Allergies Coded Allergies: Iodinated Diagnostic Agents (Verified Allergy, Severe, ANAPHYLAXIS, 03/14/18 ) noted from 09/25/13 Allopurinol (Unverified Adverse Reaction, Severe, SORE JOINTS, 03/14/18) Home Medications Scheduled Amlodipine Besylate (Bulk) (Amlodipine Besylate), 2.5 MG PO DAILY Ascorbic Acid (Vitamin C), 500 MG PO DAILY Aspirin (Aspirin Ec), 81 MG PO DAILY Cholecalciferol (Vitamin D), 5,000 UNITS PO DAILY Clopidogrel Bisulfate (Clopidogrel), 75 MG PO DAILY Coenzyme Q10 (Ubidecarenone) (Coq10), 1 TABLET PO DAILY Cyanocobalamin (Vitamin B-12), 1,000 MCG PO DAILY Esomeprazole Magnesium (Nexium), 40 MG PO Q2D Fish Oil (Selby-3), 1 CAP PO DAILY Flaxseed (Linseed) (Flaxseed Oil 1000 mg), 1 TAB PO DAILY Indomethacin (Indocin), 50 MG PO DAILY Isosorbide Mononitrate Ext Rel (Imdur Ext Rel), 30 MG PO DAILY Lisinopril (Zestril), 5 MG PO DAILY Metoprolol Succ (Toprol Xl) (Toprol-Xl), 25 MG PO DAILY Nitroglycerin (Nitrostat), 0.4 MG UT PRN Rosuvastatin Calcium (Crestor), 40 MG PO Sertraline (Zoloft), 150 MG PO DAILY Terazosin (Hytrin), 5 MG PO DAILY Vitamin E (E-400), 1 TAB PO DAILY Current Inpatient Medications Current Inpatient Medications Medications (Trade) Dose Ordered Sig/Donnie Route Start Time Stop Time Status Last Admin Dose Admin Oxycodone/ Acetaminophen (Percocet 5-325mg Tab) 1 tab Q4H PRN PO 03/15/18 01:15 03/29/18 01:14 03/16/18 12:25 1 TAB Prochlorperazine Edisylate 5 mg/ Syringe 5 ml @ 5 mls/min Q6H PRN IV 03/15/18 01:15 04/14/18 01:14 Acetaminophen (Tylenol Tab) 325 mg Q6H PRN PO 03/15/18 02:00 04/14/18 01:59 Nitroglycerin (Nitrostat Tab) 0.4 mg UD PRN SL 03/15/18 02:00 04/14/18 01:59 Aspirin (Ecotrin Tab) 81 mg DAILY PO 03/15/18 09:00 04/14/18 08:59 03/16/18 07:42 81 MG Clopidogrel Bisulfate (plAVix TAB) 75 mg DAILY PO 03/15/18 09:00 04/14/18 08:59 03/16/18 07:42 75 MG Isosorbide Mononitrate (Imdur Ext Rel Tab) 30 mg DAILY PO 03/15/18 09:00 04/14/18 08:59 03/16/18 07:43 30 MG Metoprolol Succinate (Toprol Xl Tab) 12.5 mg DAILY PO 03/15/18 09:00 04/14/18 08:59 03/16/18 07:43 12.5 MG Rosuvastatin Calcium (Crestor Tab) 40 mg MoWeFr@0900 PO 03/16/18 09:00 04/15/18 08:59 03/16/18 07:42 40 MG Sertraline HCl (Zoloft Tab) 150 mg DAILY PO 03/15/18 09:00 04/14/18 08:59 03/16/18 07:43 150 MG Pantoprazole Sodium (Protonix Tab) 40 mg QAM PO 03/15/18 09:00 04/14/18 08:59 03/16/18 07:43 40 MG Doxycycline Hyclate (Vibramycin Cap) 100 mg BID PO 03/15/18 21:00 03/22/18 20:59 03/16/18 07:44 100 MG Lorazepam (Ativan Inj) 0.5 mg Q4H PRN IV 03/15/18 02:00 04/14/18 01:59 Thiamine HCl (Vitamin B-1 Tab) 100 mg QAM PO 03/16/18 09:00 04/15/18 08:59 03/16/18 07:44 100 MG Multivitamins (Flintstones Complete Tab) 1 tab QAM PO 03/15/18 09:00 04/14/18 08:59 03/16/18 07:42 1 TAB Folic Acid (Folvite Tab) 1 mg QAM PO 03/15/18 09:00 04/14/18 08:59 03/16/18 07:44 1 MG Guaifenesin (Mucinex Contr Rel Tab) 600 mg Q12 PO 03/15/18 21:00 04/14/18 20:59 03/16/18 07:42 600 MG Albuterol/ Ipratropium (Duoneb) 3 ml Q2H PRN INH 03/15/18 02:30 04/14/18 02:29 Miscellaneous (Iv Fluids Completed) 1 ea PRN PRN N/A 03/15/18 02:45 03/15/19 02:44 Potassium Chloride/Sodium Chloride 1,000 ml @ 60 mls/hr [id number] IV 03/15/18 08:45 04/14/18 08:44 03/16/18 16:53 60 MLS/HR Morphine Sulfate (MoRPHine SULFATE INJ) 4 mg Q6H PRN IV 03/15/18 17:00 03/29/18 16:59 03/15/18 21:30 4 MG Lorazepam (Ativan Tab) 1 mg ONE PRN PO 03/15/18 17:15 Lorazepam (Ativan Tab) 0.5 mg Q6H PRN PO 03/15/18 17:15 04/14/18 17:14 Gabapentin (Neurontin Tab) 1,200 mg TODAY@1800 PO 03/15/18 18:00 04/14/18 17:59 03/16/18 16:53 1,200 MG Gabapentin (Neurontin Tab) 600 mg Q8H PO 03/16/18 14:00 03/17/18 06:01 03/16/18 14:33 600 MG Gabapentin (Neurontin Tab) 600 mg Q12H PO 03/17/18 18:00 03/18/18 06:01 Gabapentin (Neurontin Tab) 600 mg Q24H PO 03/19/18 06:00 03/19/18 06:01 Terazosin HCl (Hytrin Cap) 2 mg HS PO 03/17/18 21:00 04/16/18 20:59 Physical Exam Date Time Temp Pulse Resp B/P (MAP) Pulse Ox O2 Delivery O2 Flow Rate FiO2 03/16/18 17:12 36.5 73 20 156/84 (108) 94 Room Air 03/16/18 16:00 66 03/16/18 11:56 36.8 70 18 143/89 (107) 97 Room Air 03/16/18 08:15 36.6 64 18 124/64 (84) 93 Room Air 03/16/18 08:00 69 20 03/16/18 08:00 95 Room Air 03/16/18 03:31 36.8 51 17 123/80 (94) 95 Room Air 03/15/18 23:46 37.0 71 17 132/81 (98) 97 Room Air 03/15/18 21:35 Room Air 03/15/18 19:09 36.6 59 20 129/73 (91) 94 Room Air Extremities/Musculoskelatal: + pertinent finding (Left shoulder tender over AC joint and trapezius muscle neurological exam intact right shoulder exam normal normal strength sensation. Left shoulder mild pain with resisted strength testing with no substantial weakness. Patient can raise his arm fully overhead. ) Laboratory Results Last 24 Hours Test 03/16/18 03:57 03/16/18 04:02 Sodium Level 141 mmol/L Potassium Level 4.6 mmol/L Chloride Level 109 mmol/L Carbon Dioxide Level 28 mmol/L Anion Gap 4.0 mmol/L Blood Urea Nitrogen 21 mg/dl Creatinine 1.24 mg/dl Est Creatinine Clear Calc Drug Dose 61.8 ml/min Estimated GFR () 69.3 Estimated GFR (Non- 59.8 BUN/Creatinine Ratio 16.8 Random Glucose 91 mg/dl Calcium Level 8.1 mg/dl Vitamin B12 Level 1335 pg/mL Folate 22.88 ng/mL White Blood Count 3.95 K/uL Red Blood Count 4.18 M/uL Hemoglobin 13.1 g/dL Hematocrit 38.7 % Mean Corpuscular Volume 92.6 fL Mean Corpuscular Hemoglobin 31.3 pg Mean Corpuscular Hemoglobin Concent 33.9 g/dl Platelet Count 94 K/uL Mean Platelet Volume 10.9 fL Neutrophils (%) (Auto) 61.7 % Lymphocytes (%) (Auto) 22.8 % Monocytes (%) (Auto) 11.9 % Eosinophils (%) (Auto) 3.3 % Basophils (%) (Auto) 0.3 % Neutrophils # (Auto) 2.44 K/uL Lymphocytes # (Auto) 0.90 K/uL Monocytes # (Auto) 0.47 K/uL Eosinophils # (Auto) 0.13 K/uL Basophils # (Auto) 0.01 K/uL RDW Standard Deviation 47.3 fL RDW Coefficient of Variation 14.0 % Immature Granulocyte % (Auto) 0.0 % Immature Granulocyte # (Auto) 0.00 K/uL Assessment & Plan Studies fully reviewed. Patient had a shoulder contusion has mild bursitis had likely pre-existing small nonsurgical partial tear rotator cuff now with acute grade 2 AC separation. Treatment is nonsurgical. I symptomatic care avoid lifting avoid repetitive overhead activity avoid crossarm adduction type maneuvers that would aggravate pain. Most likely will need therapy. The patient has outpatient if he continues to be symptomatic.
[2018-03-17 03:52] VITALS: BP 139/71; PULSE 76; TEMP 36.7; O2SAT 95
[2018-03-17 05:07] LABS: CALCIUM 8.4 mg/dl (8.5-10.1); CREATININE 1.29 mg/dl (0.60-1.40); POTASSIUM 4.9 mmol/L (3.5-5.1)
[2018-03-17] MEDS: GABAPENTIN 600MG Q8H DOSE PO SCH (05:49)
[2018-03-17] MEDS: GUAIFENESIN 600 MG TABCR PO SCH (07:34)
[2018-03-17] MEDS: ISOSORBIDE MONONITRATE 30 MG TABCR PO SCH (07:34)
[2018-03-17] MEDS: METOPROLOL SUCC 25MG EXT REL TAB PO SCH (07:35)
[2018-03-17] MEDS: CLOPIDOGREL BISULFATE 75 MG TAB PO SCH (07:35)
[2018-03-17] MEDS: THIAMINE HCL 100 MG TAB PO SCH (07:35)
[2018-03-17] MEDS: SERTRALINE HCL 50 MG TAB PO SCH (07:35)
[2018-03-17] MEDS: PANTOprazole SOD 40 MG TAB PO SCH (07:35)
[2018-03-17] MEDS: ASPIRIN 81 MG ECTAB PO SCH (07:36)
[2018-03-17] MEDS: DOXYCYCLINE HYCLATE 100 MG CAP PO SCH (07:36)
[2018-03-17] MEDS: FLINTSTONES COMPLETE CHEWABLE TAB PO SCH (07:36)
[2018-03-17 07:52] VITALS: BP 157/87; PULSE 71; TEMP 36.3; O2SAT 96
[2018-03-17 08:00] VITALS: O2SAT 95
--- NOTE | 2018-03-17 09:49 | Cardiology Follow-Up ---
Subjective General Date of Service: Mar 17, 2018. Chief Complaint: Syncope Pt evaluation today including: conversation w/ patient, physical exam, chart review, lab review, review of studies, review of inpatient medication list History of Present Illness Patient seen and examined. Mild dizziness with positional changes. Left shoulder discomfort. Left rib discomfort. No angina. No palpitations. No orthopnea or PND. No peripheral edema. Telemetry: sinus/sinus bradycardia primarily in the upper 50's to low 60's. First-degree AV block. No significant bradycardia or pauses. Allergies Coded Allergies: Iodinated Diagnostic Agents (Verified Allergy, Severe, ANAPHYLAXIS, 03/14/18 ) noted from 09/25/13 Allopurinol (Unverified Adverse Reaction, Severe, SORE JOINTS, 03/14/18) Social History Smoking Status: Former Smoker Hx Tobacco Use In Past Year?: No (Quit 30 yrs ago) Hx Alcohol Use - Type And Amou: Yes (2 whiskey drinks per day ) Hx Substance Use - Type And Am: No Problem List Medical Problems: (1) Acute kidney injury Status: Acute (2) Bronchitis Status: Acute (3) Left shoulder pain Status: Acute (4) Orthostatic hypotension Status: Acute Review of Systems Respiratory: No cough, No sputum, No wheezing, No shortness of breath, No dyspnea at rest, No hemoptysis Cardiac: No chest pain, No orthopnea, No PND, No edema, No palpitations Physical Exam Vital Signs Last Vital Signs Documentation Date Time Temp Pulse Resp B/P (MAP) Pulse Ox O2 Delivery O2 Flow Rate FiO2 03/17/18 08:00 95 Room Air 03/17/18 07:52 36.3 71 17 157/87 (110) Physical Exam Constitutional: Level of Distress: NAD Ambulation: ambulating normally Psychiatric: Mental Status: active & alert Orientation: to time, to place, to person Memory: recent memory normal, remote memory normal Head: normocephalic, atraumatic Eyes: Pupils: PERRLA Neck: pertinent finding (Normal JVP) Lungs: Respiratory effort: no dyspnea Auscultation: breath sounds normal, no wheezing, no rales/crackles, no rhonchi Cardiovascular: Heart Auscultation: RRR, normal S1, normal S2, no murmurs, no rubs Peripheral Pulses: Radial Pulse: normal on the left, normal on the right Dorsalis Pedis Pulse: decreased on the left, decreased on the right Abdomen: Bowel Sounds: normal Inspection & Palpation: soft, non-distended, no masses Extremities: no cyanosis, no edema, no clubbing Neurologic: Cranial Nerves: grossly intact Assessment and Plan Assessment and Plan Admission with reflex syncope (situation syncope, cough syncope), intravascular volume depletion, symptomatic hypotension History of long-standing labile blood pressure issues; hypotension limiting anti -angina medicines No evidence of significant arrhythmias on telemetry Stable complex coronary artery disease Preserved LV systolic function Dyslipidemia with statin intolerance, tolerating Repatha (Evolocumab) Recommendations: Resume amlodipine at 2.5 mg/day for additional blood pressure control. Continue metoprolol, Imdur, and aspirin as presently prescribed. Note: Toprol XL decreased from 25 mg/day to 12.5 mg/day this admission. Terazosin decreased to 2 mg this admission. Continue to hold lisinopril (previously 10 mg/day) Reduce alcohol intake advised. Outpatient Zio monitor 14 days arranged Outpatient cardiology follow-up in 1-2 weeks (office aware, will call patient) Please call if any questions or concerns Cardiology Attending Physician: Patient seen and examined at the bedside. Episodes of lightheadedness have become less frequent and less severe. Denies near syncope. Denies chest pain or palpitations. Sinus rhythm on telemetry. No sustained dysrhythmias on telemetry. PE: VSS. Gen: NAD, AAO x3. Heart: Regular, normal S1, S2, 1/6 systolic ejection murmur heard best at the right second intercostal space. Lungs are clear without rales, rhonchi, wheeze. The tremor is warm and dry without clubbing, cyanosis, or edema. A/P: Agree with PA-C history, physical exam, assessment and plan. Gradually resume antihypertensive therapies as noted above. 14 days ZIO monitor as outpatient. Encouraged oral hydration and abstinence from alcohol. Trent Collins DO, [facility] Laboratory Results Last 24 Hours Test 03/17/18 04:34 Sodium Level 140 mmol/L Potassium Level 4.9 mmol/L Chloride Level 108 mmol/L Carbon Dioxide Level 30 mmol/L Anion Gap 2.0 mmol/L Blood Urea Nitrogen 20 mg/dl Creatinine 1.29 mg/dl Est Creatinine Clear Calc Drug Dose 59.4 ml/min Estimated GFR () 66.1 Estimated GFR (Non- 57.0 BUN/Creatinine Ratio 15.6 Random Glucose 99 mg/dl Calcium Level 8.4 mg/dl
[2018-03-17] MEDS ORDERED: AMLODIPINE BESYLATE 5 MG TAB PO SCH (10:00)
[2018-03-17] MEDS: NSS + 20MEQ KCL 1000ML 1,000 ML IV SCH (10:32)
[2018-03-17 11:06] VITALS: BP 147/99; PULSE 64; TEMP 36.4; O2SAT 96
--- NOTE | 2018-03-17 15:20 | Progress Note ---
Medicine Progress Note Date & Time of Visit: Mar 17, 2018 at 15:03. Subjective seen resting in bedside chair, comfortable states he feels much better overall Ambulating fine, no dizziness/weakness No chest pain, shortness of breath, palpitations Left shoulder pain improving, left rib pain also improving No other symptoms States he is ready and would like to be discharged today Objective Last 8 Hrs Date Time Temp Pulse Resp B/P (MAP) Pulse Ox O2 Delivery O2 Flow Rate FiO2 03/17/18 11:06 36.4 64 18 147/99 (115) 96 Room Air 03/17/18 08:00 95 Room Air 03/17/18 07:52 36.3 71 17 157/87 (110) 96 Room Air Physical Exam: General-oriented 3, not in distress, speaking in sentences Head- atraumatic Eyes- anicteric ENT- oropharynx clear Neck- supple, no JVD Lungs- clear breath sounds bilaterally No tenderness on the left lateral ribs Heart-normal rate, regular rhythm; no murmur Abdomen- normal bowel sounds, soft, nontender Extremities- Left shoulder with no edema and warmth,mildly limited range of motion due to pain, good muscle strength no pretibial edema, no calf tenderness; peripheral pulses intact Neuro- alert, oriented x 3; no gross focal motor or sensory deficits Skin- warm & dry Laboratory Results: Last 24 Hours Test 03/17/18 04:34 Sodium Level 140 mmol/L Potassium Level 4.9 mmol/L Chloride Level 108 mmol/L Carbon Dioxide Level 30 mmol/L Anion Gap 2.0 mmol/L Blood Urea Nitrogen 20 mg/dl Creatinine 1.29 mg/dl Est Creatinine Clear Calc Drug Dose 59.4 ml/min Estimated GFR () 66.1 Estimated GFR (Non- 57.0 BUN/Creatinine Ratio 15.6 Random Glucose 99 mg/dl Calcium Level 8.4 mg/dl Assessment & Plan Syncope likely secondary to orthostasis and vasovagal reflex likely reflex syncope (situation syncope, cough syncope), intravascular volume depletion, 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 Status post fall secondary to syncope Left lateral ribs fractures fourth to sixth Rule out left shoulder fracture, muscle tear MRI of the shoulder: 1. Grade I acromioclavicular separation. 2. Muscular strains of the distal trapezius muscle and proximal attachment of the deltoid muscle. 3. Supraspinatus tendinopathy with an associated small distal partial tear. No evidence for full-thickness rotator cuff tear. 4. Diffusely abnormal labrum consistent with circumferential degeneration/ tear. 5. No fracture or dislocation within the shoulder. Ortho consulted- non surgical, avoid lifting, overhead arm movement Pain improving Continue analgesics- Tramadol 50mg q6h PRN for pain Encouraged to use incentive spirometry Acute renal failure Likely prerenal etiology Creatinine back to normal after IV fluids given Acute bronchitis Chest x-ray no signs of pneumonia cough improving Continue doxycycline Alcoholism No signs of overt withdrawal Placed on alcohol withdrawal protocol including gabapentin taper advised to reduce alcohol intake CAD sp CABG Troponins negative EKG no signs of ischemia History of CVA as per records Status post coronary artery bypass grafting Continue aspirin, Plavix, metoprolol, statin Colon cancer status post surgery. Chronic anemia and thrombocytopenia Levels at baseline Disposition d/c to home ff up with PCP in 3-5 days, date/time at d/c instructions Current Inpatient Medications: Current Inpatient Medications Medications (Trade) Dose Ordered Sig/Donnie Route Start Time Stop Time Status Last Admin Dose Admin Oxycodone/ Acetaminophen (Percocet 5-325mg Tab) 1 tab Q4H PRN PO 03/15/18 01:15 03/29/18 01:14 03/16/18 12:25 1 TAB Prochlorperazine Edisylate 5 mg/ Syringe 5 ml @ 5 mls/min Q6H PRN IV 03/15/18 01:15 04/14/18 01:14 Acetaminophen (Tylenol Tab) 325 mg Q6H PRN PO 03/15/18 02:00 04/14/18 01:59 Nitroglycerin (Nitrostat Tab) 0.4 mg UD PRN SL 03/15/18 02:00 04/14/18 01:59 Aspirin (Ecotrin Tab) 81 mg DAILY PO 03/15/18 09:00 04/14/18 08:59 03/17/18 07:36 81 MG Clopidogrel Bisulfate (plAVix TAB) 75 mg DAILY PO 03/15/18 09:00 04/14/18 08:59 03/17/18 07:35 75 MG Isosorbide Mononitrate (Imdur Ext Rel Tab) 30 mg DAILY PO 03/15/18 09:00 04/14/18 08:59 03/17/18 07:34 30 MG Metoprolol Succinate (Toprol Xl Tab) 12.5 mg DAILY PO 03/15/18 09:00 04/14/18 08:59 03/17/18 07:35 12.5 MG Rosuvastatin Calcium (Crestor Tab) 40 mg MoWeFr@0900 PO 03/16/18 09:00 04/15/18 08:59 03/16/18 07:42 40 MG Sertraline HCl (Zoloft Tab) 150 mg DAILY PO 03/15/18 09:00 04/14/18 08:59 03/17/18 07:35 150 MG Pantoprazole Sodium (Protonix Tab) 40 mg QAM PO 03/15/18 09:00 04/14/18 08:59 03/17/18 07:35 40 MG Doxycycline Hyclate (Vibramycin Cap) 100 mg BID PO 03/15/18 21:00 03/22/18 20:59 03/17/18 07:36 100 MG Lorazepam (Ativan Inj) 0.5 mg Q4H PRN IV 03/15/18 02:00 04/14/18 01:59 Thiamine HCl (Vitamin B-1 Tab) 100 mg QAM PO 03/16/18 09:00 04/15/18 08:59 03/17/18 07:35 100 MG Multivitamins (Flintstones Complete Tab) 1 tab QAM PO 03/15/18 09:00 04/14/18 08:59 03/17/18 07:36 1 TAB Folic Acid (Folvite Tab) 1 mg QAM PO 03/15/18 09:00 04/14/18 08:59 03/17/18 10:31 1 MG Guaifenesin (Mucinex Contr Rel Tab) 600 mg Q12 PO 03/15/18 21:00 04/14/18 20:59 03/17/18 07:34 600 MG Albuterol/ Ipratropium (Duoneb) 3 ml Q2H PRN INH 03/15/18 02:30 04/14/18 02:29 Miscellaneous (Iv Fluids Completed) 1 ea PRN PRN N/A 03/15/18 02:45 03/15/19 02:44 Potassium Chloride/Sodium Chloride 1,000 ml @ 60 mls/hr [id number] IV 03/15/18 08:45 04/14/18 08:44 03/17/18 10:32 60 MLS/HR Morphine Sulfate (MoRPHine SULFATE INJ) 4 mg Q6H PRN IV 03/15/18 17:00 03/29/18 16:59 03/15/18 21:30 4 MG Lorazepam (Ativan Tab) 1 mg ONE PRN PO 03/15/18 17:15 Lorazepam (Ativan Tab) 0.5 mg Q6H PRN PO 03/15/18 17:15 04/14/18 17:14 Gabapentin (Neurontin Tab) 1,200 mg TODAY@1800 PO 03/15/18 18:00 04/14/18 17:59 03/16/18 16:53 1,200 MG Gabapentin (Neurontin Tab) 600 mg Q12H PO 03/17/18 18:00 03/18/18 06:01 Gabapentin (Neurontin Tab) 600 mg Q24H PO 03/19/18 06:00 03/19/18 06:01 Terazosin HCl (Hytrin Cap) 2 mg HS PO 03/17/18 21:00 04/16/18 20:59 Amlodipine Besylate (Norvasc Tab) 2.5 mg QAM PO 03/17/18 10:00 04/16/18 09:59 03/17/18 10:31 2.5 MG
[2018-03-17] MEDS ORDERED: THIA100T10 PO (15:25)
[2018-03-17] MEDS ORDERED: TPRSR25 PO (15:25)
[2018-03-17] MEDS ORDERED: DXY100 PO (15:25)
[2018-03-17] MEDS ORDERED: HYT/2 PO (15:25)
[2018-03-17] MEDS ORDERED: NRN600 PO (15:25)
[2018-03-17] MEDS ORDERED: TRAM-10 PO (15:36)
--- NOTE | 2018-03-17 15:37 | Discharge Summary ---
Discharge Summary Date of Service Mar 17, 2018. Discharge Summary Admission Date: Mar 16, 2018 at 17:05 Discharge Date: Mar 17, 2018 Principal Diagnosis: Syncope likely secondary to orthostasis and vasovagal reflex Secondary Diagnoses/Problems: Please refer to hospital course below. Procedures: CT SCAN OF THE CHEST WITHOUT IV CONTRAST CLINICAL HISTORY: Left chest wall pain. COMPARISON STUDY: Chest x-ray dated 03/14/2018. TECHNIQUE: CT scan of the thorax was performed from the thoracic inlet to the upper abdomen. Images are reviewed in the axial, sagittal, and coronal planes. IV contrast was not administered for this examination as per the referring clinician. A dose lowering technique was utilized adhering to the principles of ALARA. The examination is degraded by streak artifact from the arms which could not be elevated above the chest. FINDINGS: Thyroid: Imaged portions of the thyroid gland are normal in size and attenuation. Thoracic aorta: There is mild atherosclerotic calcification of the thoracic aorta, which is normal in caliber and demonstrates standard 3-vessel arch anatomy. Heart: The patient is status post midline sternotomy. The heart is enlarged and without pericardial effusion. The coronary arteries are densely calcified. Lungs and pleural spaces: Evaluation of lung parenchyma is modestly degraded by motion artifact. There is no airspace consolidation typical for pneumonia, pleural effusion, or pneumothorax. Dependent atelectasis is observed. There is a 6 cm pleural-based nodule in the left lower lobe seen on image #196. A 4 mm pleural-based nodule is seen on the left lower lobe in image #189. Additional foci of pleural-based nodularity measuring up to 4 mm are seen along the minor fissure on image #142. The trachea and central airways are clear. Mediastinum: There is no mediastinal lymphadenopathy. Candy: Not well assessed without IV contrast. Axillae: There is no axillary lymphadenopathy. Upper abdomen: Spleen is enlarged, measuring 15 cm in length. There is evidence of hepatic steatosis. A small hiatal hernia is identified. Skeletal structures: The skeletal structures are osteopenic. No lytic or blastic bony lesions are seen. There are acute nondistracted left anterolateral 4th through 6th rib fractures. There are healed right-sided rib fractures. Arthritic change is noted in the shoulders. IMPRESSION: 1. There are acute nondistracted left anterolateral 4th through 6th rib fractures. 2. There is no airspace consolidation, pleural effusion, or pneumothorax. 3. Cardiomegaly. 4. There are scattered pleural-based nodules measure up to 6 mm. These should be followed as per the Fleischner criteria. See below. 5. Splenomegaly and hepatic steatosis. 6. Additional findings as above. Please refer to below summary of Fleischner criteria recommendations for follow-up of incidental CT nodules (Heather Headley, Guidelines for management of small pulmonary nodules detected on CT scans: A statement from the Fleischner Society, Radiology 237: [phone].) SOLID NODULES Solitary nodule size: <6 mm * low risk patients: no follow-up needed * high risk patients: optional CT at 12 months Solitary nodule size: 6-8 mm * low risk patients: follow-up at 6-12 months, then consider further follow-up at 18-24 months * high risk patients: initial follow-up CT at 6-12 months and then at 18-24 months if no change Solitary nodule size: >8 mm * either low or high risk patients - consider follow-up CT at 3 months, and/or CT-PET, and/or biopsy Multiple nodules size: <6 mm * low risk patients: no routine follow-up * high risk patients: optional CT at 12 months Multiple nodules size: 6-8 mm * low risk patients: follow-up at 3-6 months, then consider further follow-up at 18-24 months * high risk patients: follow-up at 3-6 months, then at 18-24 months if no change Multiple nodules size: >8 mm * low risk patients: follow-up at 3-6 months, then consider further follow-up at 18-24 months * high risk patients: follow-up at 3-6 months, then at 18-24 months if no change Note: newly detected indeterminate nodule in persons 35 years of age or older. * low risk patients: minimal or absent history of smoking and/or other known risk factors * high risk patients: history of smoking or of other known risk factors (e.g. first degree relative with lung cancer, or exposure to asbestos, radon, uranium) * if a nodule up to 8 mm is partly solid or is ground glass further follow-up is required after 24 months to exclude possible slow growing adenocarcinoma (ZAID) SUBSOLID NODULES Solitary pure ground-glass nodule * nodule size <6 mm - no CT follow-up required * nodule size >=6 mm - follow-up CT at 6-12 months, then every 2 years until 5 years Solitary part-solid nodule * nodule size <6 mm - no CT follow-up required * nodule size >=6 mm - follow-up CT at 3-6 months. If unchanged, and solid component remains <6 mm, then annual follow-up for 5 years Multiple subsolid nodules * nodule size <6 mm - follow-up CT at 3-6 months, consider further follow-up at 2 and 4 years if stable * nodule size >=6 mm - follow-up CT at 3-6 months, subsequent management based on the most suspicious nodule(s) Electronically signed by: Tyler Conteh M.D. 03/15/2018 8:26 AM BRAIN WITHOUT CONTRAST No acute intracranial abnormality. Age-related chronic small vessel change and atrophy. LEFT SHOULDER MRI 1. Grade I acromioclavicular separation. 2. Muscular strains of the distal trapezius muscle and proximal attachment of the deltoid muscle. 3. Supraspinatus tendinopathy with an associated small distal partial tear. No evidence for full-thickness rotator cuff tear. 4. Diffusely abnormal labrum consistent with circumferential degeneration/tear. 5. No fracture or dislocation within the shoulder. Consultations: Cardiology Dr. Collins Pending Studies/Follow-Up: Please refer to hospital course below. Medication Reconciliation New Medications: Terazosin Hcl (Hytrin) 2 Mg Cap 2 MG PO HS for 30 Days, #30 CAP 2 Refills Tramadol (Ultram) 50 Mg Tab 50 MG PO Q6H PRN for Pain, #10 TAB 0 Refills Doxycycline Hyclate (Doxycycline Hyclate) 100 Mg Cap 100 MG PO BID for 4 Days, #8 CAP 0 Refills Gabapentin (Gabapentin) 600 Mg Tab 600 MG PO Q24H for 1 Day, #1 TAB 0 Refills take on March 18, 2018 Metoprolol Succinate (Metoprolol Succinate ER) 25 Mg Tabcr 12.5 MG PO DAILY for 30 Days, #15 TABS 2 Refills Thiamine Hcl (Vitamin B-1) 100 Mg Tab 100 MG PO QAM for 7 Days, #7 TAB 0 Refills Continued Medications: Amlodipine Besylate (Bulk) (Amlodipine Besylate) 1 Pow Pow 2.5 MG PO DAILY Ascorbic Acid (Vitamin C) 500 Mg Cap 500 MG PO DAILY Aspirin (Aspirin Ec) 81 Mg Tab 81 MG PO DAILY Cholecalciferol (Vitamin D) 5,000 Unit Tab 5000 UNITS PO DAILY Clopidogrel Bisulfate (Clopidogrel) 75 Mg Tab 75 MG PO DAILY Coenzyme Q10 (Ubidecarenone) (Coq10) 200 Mg Cap 1 TABLET PO DAILY Cyanocobalamin (Vitamin B-12) 1,000 Mcg Tab 1000 MCG PO DAILY Esomeprazole Magnesium (Nexium) 40 Mg Capcr 40 MG PO Q2D, 0 Refills Fish Oil ([place]-3) 1 Ea Cap 1 CAP PO DAILY, CAP Flaxseed (Linseed) (Flaxseed Oil 1000 mg) 1 Cap Cap 1 TAB PO DAILY Indomethacin (Indocin) 50 Mg Cap 50 MG PO DAILY NEEDED FOR GOUT SYMPTOMS Isosorbide Mononitrate Ext Rel (Imdur Ext Rel) 30 Mg Tabcr 30 MG PO DAILY Nitroglycerin (Nitrostat) 0.4 Mg Tab 0.4 MG UT PRN, BTL Rosuvastatin Calcium (Crestor) 40 Mg Tab 40 MG PO for 30 Days, #30 TAB 5 Refills Sertraline (Zoloft) 100 Mg Tab 150 MG PO DAILY, 0 Refills Vitamin E (E-400) 400 Unit Cap 1 TAB PO DAILY Discontinued Medications: Lisinopril (Zestril) 5 Mg Tab 5 MG PO DAILY, TAB Metoprolol Succ (Toprol Xl) (Toprol-Xl) 25 Mg Tabcr 25 MG PO DAILY, #30 TAB Terazosin (Hytrin) 5 Mg Cap 5 MG PO DAILY, CAP Admission Information HPI (per Admitting provider): DATE OF ADMISSION: 03/15/2018 PRIMARY CARE DOCTOR: Dr. Maki. CHIEF COMPLAINT: Syncope. HISTORY OF PRESENT ILLNESS: History obtained from patient and records. Medical history significant for CAD status post CABG, hx CVA as per records, hypertension, past tobacco abuse, alcohol abuse per records, colon cancer post- surgery, chemotherapy, history of TIA, chronic thrombocytopenia, mood disorder. Chronic anemia (baseline hemoglobin 13) Recent confinement last 2016 for near syncope, hypotension. As per recent outpatient [facility] [place] Cardiology notes from 01/2018 patient complaining of myalgias, transient chest discomfort symptoms. The last 2 days patient's blood pressure noted to be in low systolic 80s-90s - unusual as per patient. Appetite is not too good. Cough productive of junky greenish yellow sputum. No chest pain, no SOB. Denies aspiration. No known sick contacts. No fever, no chills. Patient was talking to some friends today when he subsequently blacked out for about 40 seconds. No witnessed seizures, incontinence. Transient headache behind the eye about a few days ago. He fell on the left side today and woke up with achy left-sided chest/shoulder pain worse with motion and laughing. Physical Exam (per Admitting): VITAL SIGNS: Blood pressure was noted to be 115/69, pulse rate 66, RR 18, temperature 36.6, sats 94 on room air. Orthostatic vitals SBP supine 132/81, standing 114/75; pulse rate supine 59, standing 65. GENERAL: Pleasant, slightly uncomfortable, no distress, obese. SKIN: loera, warm. HEENT: bespectacled, pink palpebral conjuctivae. No ptosis. Dry mucosa. NECK: Short neck, supple. CHEST: Decreased effort. no exp wheezes. L sided chest wall tenderness HEART: Regular rate and rhythm, no murmur. ABDOMEN: Distended, nontender. EXTREMITIES: No LE edema noticed. No gross deformities. tender Left shoulder w/ some limitation in motion. NEUROLOGIC: Coherent. No gross focality. 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 Status post fall secondary to syncope Left lateral ribs fractures fourth to sixth Rule out left shoulder fracture, muscle tear MRI of the shoulder: 1. Grade I acromioclavicular separation. 2. Muscular strains of the distal trapezius muscle and proximal attachment of the deltoid muscle. 3. Supraspinatus tendinopathy with an associated small distal partial tear. No evidence for full-thickness rotator cuff tear. 4. Diffusely abnormal labrum consistent with circumferential degeneration/ tear. 5. No fracture or dislocation within the shoulder. Ortho consulted- non surgical, avoid lifting, overhead arm movement Pain improving Continue analgesics- Tramadol 50mg q6h PRN for pain Encouraged to use incentive spirometry Acute renal failure Likely prerenal etiology Creatinine back to normal after IV fluids given Acute bronchitis Chest x-ray no signs of pneumonia cough improving Continue doxycycline Lung Nodules seen on CT Chest "There is a 6 cm pleural-based nodule in the left lower lobe seen on image # 196. A 4 mm pleural-based nodule is seen on the left lower lobe in image #189. Additional foci of pleural-based nodularity measuring up to 4 mm are seen along the minor fissure on image #142. The trachea and central airways are clear." 4. There are scattered pleural-based nodules measure up to 6 mm. These should be followed as per the Fleischner criteria. -- full report in the procedure section above -- needs to be followed up based oon criteria Alcoholism No signs of overt withdrawal Placed on alcohol withdrawal protocol including gabapentin taper advised to reduce alcohol intake CAD sp CABG Troponins negative EKG no signs of ischemia History of CVA as per records Status post coronary artery bypass grafting Continue aspirin, Plavix, metoprolol, statin Colon cancer status post surgery. Chronic anemia and thrombocytopenia Levels at baseline Disposition d/c to home ff up with PCP in 3-5 days, date/time at d/c instructions Total time spent on discharge = 40 minutes This includes examination of the patient, discharge planning, medication reconciliation, and communication with other providers. Discharge Instructions Discharge Instructions Date of Service Mar 17, 2018. Admission Reason for Admission: Syncope Discharge Discharge Diagnosis / Problem: Syncope, Low Blood Pressure, Dehydration Discharge Goals Goal(s): Diagnostic testing, Therapeutic intervention Activity Recommendations Activity Limitations: as noted below (NO HEAVY EXERTION UNTIL RE-EVALUATED BY PRIMARY CARE PHYSICIAN) Lifting Limitations: until after follow-up appointment Exercise/Sports Limitations: until after follow-up appointment Driving or Machine Use: NO DRIVING UNTIL RE-EVALUATED BY PRIMARY CARE PHYSICIAN . Instructions / Follow-Up Instructions / Follow-Up PLEASE REVIEW YOUR NEW MEDICATION LIST AND FOLLOW INSTRUCTIONS CAREFULLY. CALL PRIMARY CARE PHYSICIAN OR RETURN TO ER IMMEDIATELY IF WITH WORSENING OF SYMPTOMS. KEEP ON USING THE INCENTIVE SPIROMETER MUCH YOU CAN. ALWAYS ENSURE ADEQUATE DAILY FLUID INTAKE. REDUCE ALCOHOL CONSUMPTION. REST YOUR LEFT ARM- NO LIFTING, OVERHEAD EXTENSION. FOLLOW UP WITH YOUR PRIMARY CARE PHYSICIAN DR. MAKI WEDNESDAY MARCH 21, 2018 AT 8:45 AM. FOLLOW UP WITH CARDIOLOGY CLINIC IN 1 WEEK FOR FOLLOW UP AND ZIO PATCH PLACEMENT. THEIR CLINIC WILL BE CALLING YOU FOR THE APPOINTMENT. TEL. [phone] Current Hospital Diet Patient's current hospital diet: AHA Diet (Heart Healthy) Discharge Diet Recommended Diet: AHA Diet (Heart Healthy) Procedures Procedures Performed: BRAIN AND SHOULDER MRI, CHEST CT SCAN Pending Studies Studies pending at discharge: no Medical Emergencies . Who to Call and When: Medical Emergencies: If at any time you feel your situation is an emergency, please call 911 immediately. . Non-Emergent Contact Non-Emergency issues call your: Primary Care Provider, Bindery Assistant Call Non-Emergent contact if: you have a fever, your pain is not controlled, your pain is worsening, your pain is unusual for you, your pain is concerning you, wound has increased drainage, wound has increased redness, wound has increased pain, you have any medication questions . . "Provider Documentation" section prepared by Abdoul Myers. .
[2018-03-17 16:24] VITALS: BP 144/82; PULSE 68; TEMP 36.8; O2SAT 97
[2018-03-17] MEDS ORDERED: GABAPENTIN 600MG Q12H DOSE PO SCH (18:00)
[2018-03-19] MEDS ORDERED: GABAPENTIN 600MG X1 DOSE PO SCH (06:00)
== END 2018-03-17 16:46 | disposition home or self-care (01) | DRG 312 ==
LOC: C.EDB 22:13 → C.2E 03-15 01:33 → ENRESERV 03-15 01:55 → OBSVTOIN 03-16 17:05
PROVIDERS: ADMIT Internal Medicine; ATTEND Internal Medicine
DX: I95.1 Orthostatic hypotension (principal); N17.9 Acute kidney failure, unspecified; S22.42XA Multiple fractures of ribs, left side, initial encounter for closed fracture; E86.0 Dehydration; S46.012A Strain of muscle(s) and tendon(s) of the rotator cuff of left shoulder, initial encounter; S40.012A Contusion of left shoulder, initial encounter; W19.XXXA Unspecified fall, initial encounter; J20.9 Acute bronchitis, unspecified; I45.10 Unspecified right bundle-branch block; I44.0 Atrioventricular block, first degree; R91.8 Other nonspecific abnormal finding of lung field; I10 Essential (primary) hypertension; I25.10 Atherosclerotic heart disease of native coronary artery without angina pectoris; F10.20 Alcohol dependence, uncomplicated; D64.9 Anemia, unspecified; D69.6 Thrombocytopenia, unspecified; F32.9 Major depressive disorder, single episode, unspecified; E78.5 Hyperlipidemia, unspecified; K21.9 Gastro-esophageal reflux disease without esophagitis; N40.0 Benign prostatic hyperplasia without lower urinary tract symptoms; Z95.1 Presence of aortocoronary bypass graft; Z86.73 Personal history of transient ischemic attack (TIA), and cerebral infarction without residual deficits; Z85.038 Personal history of other malignant neoplasm of large intestine; Z92.21 Personal history of antineoplastic chemotherapy; Z98.890 Other specified postprocedural states; Z87.891 Personal history of nicotine dependence; Z79.02 Long term (current) use of antithrombotics/antiplatelets; Z79.82 Long term (current) use of aspirin; Z79.899 Other long term (current) drug therapy; Z91.041 Radiographic dye allergy status; Z88.8 Allergy status to other drugs, medicaments and biological substances; Z82.49 Family history of ischemic heart disease and other diseases of the circulatory system

== ENCOUNTER 2022-12-16 08:26 | Inpatient (IN) ==
[2022-12-16] MEDS ORDERED: ALBUT/IPRATROP 3MG/0.5MG NEB 3 ML VIAL NEB STA (08:56)
[2022-12-16] MEDS ORDERED: FUROSEMIDE 40 MG/4 ML VIAL IV ONE (09:04)
--- NOTE | 2022-12-16 09:14 | Emergency Department Note ---
Impression & Plan SOB (shortness of breath), Elevated troponin, CHF (congestive heart failure), Recent myocardial infarction ED Provider Note NAME: DOROTA WINTER AGE: 72 SEX: M : 1950 ARRIVES VIA: Walk-In INFORMANT: [Patient][family] ED PROVIDER(S): [Tyler Daniels MD] CHIEF COMPLAINT: Short of breath HISTORY OF PRESENT ILLNESS: The patient is a 72-year-old male who has felt shortness of breath for the last 3 to 4 days. Things have worsened every day. He feels at nighttime that he has a hard time sleeping and has to wake up to catch his breath. He does notice his shortness of breath with exertion during the day. There has been no cough, no fever, no real chest pain although he feels a fullness in the lungs. He has been nauseated without vomiting. The patient states that he did have a cardiac stent placed just under a month ago. This was done at [place]. He states a lot of medication changes have been made since the stent placement and he wonders if this is why he is feeling short of breath. Of note, he has been using his family's albuterol the last few days to help with his breathing. He does not have any history of COPD and states he does not have albuterol prescribed personally. PMHx/PSHx: See Below SOCIAL HISTORY: See Below. PHYSICAL EXAM: GENERAL: Patient is in no acute distress. HEENT: No acute trauma, normocephalic atraumatic, mucous membranes moist, no nasal congestion. NECK: No stridor, no adenopathy, no meningismus, trachea is midline. LUNGS: Diminished breath sounds bilaterally with some scattered wheezes, no crackles heard. No respiratory distress. HEART: Subtle systolic murmur, regular rate and rhythm, heart tones are distant. ABDOMEN: Soft, nontender, bowel sounds positive, no peritonitis. EXTREMITIES: No cyanosis or edema, full range of motion of all the joints without pain or difficulty, no signs for acute trauma. NEUROLOGIC: Oriented x 3, no acute motor or sensory deficits, no focal weakness. SKIN: No rash, no jaundice, no diaphoresis. DIFFERENTIAL DIAGNOSIS: CHF, pneumonia, bronchitis, anemia, electrolyte imbalance, renal or liver failure, MT, among others. EMERGENCY DEPARTMENT COURSE/PROCEDURES: Prior/Outside records reviewed: Recent cardiology note. ECG per my interpretation: Indication was shortness of breath. The ECG shows a sinus rhythm with a first-degree AV block. The rate is 66. There is a left bundle branch block. There are no PVCs. No concerning ST elevation. The QTc is 469. Compared to an ECG from 20 November 2022, the T wave changes have improved. A left bundle branch block is now present. Continuous Cardiac Monitoring per my interpretation: An order was placed for continuous cardiac monitoring. The monitor shows a rate of 72 with normal sinus rhythm. MEDICAL DECISION MAKING: There is no leukocytosis. The patient does have a mild anemia, a mild anemia has been documented recently. Platelet count was slightly low at 120. No coagulopathy. No renal failure or significant electrolyte abnormality. No concerning liver enzyme elevation. ECG shows a sinus rhythm with a first-degree AV block, no obvious acute ST elevation. Cardiac enzyme testing x1 was slightly elevated. This elevation could be secondary to his recent MT versus, potential new cardiac injury. Chest x-ray shows CHF per my review, no pneumonia. BNP was elevated consistent with fluid overload. Urinalysis did not show infection. COVID test returned negative. The patient was given a DuoNeb. This was given because of his wheezing. He was given IV Lasix, 40 mg. The Lasix was given to help with his fluid overload. Given his dyspnea, given the recent MT, given the CHF and troponin elevation, I do think a hospital stay is warranted. I spoke with the patient and case management, the on-call hospitalist was consulted. DISPOSITION: Patient's presentation and findings warrant a hospital stay. Past Med/Surg History Medical History Anxiety BPH (benign prostatic hyperplasia) BPH with obstruction/lower urinary tract symptoms CAD (coronary artery disease) "1992 - CABG x 5 09/2016 - [facility] to [facility] of [facility] 10/2016 - repeat cath, no lesions amenable to intervention, medical management recommended" Follows with Dr. Kaiser Chronic idiopathic thrombocytopenia F/U PCP Depression Dyslipidemia On injectable medications - cannot tolerate statins GERD (gastroesophageal reflux disease) Well controlled and stable with med Gout No current issues Hearing deficit BL [place] Has hearing aids - not wearing hearing aids History of colon cancer dx 2016; treated surgically + oral chemo History of COVID-19 08/2020; asymptomatic -TESTED BY [facility] AT [facility] History of intestinal obstruction No recent issues History of TIA (transient ischemic attack) -"SHOWS 7 ON SCANS" PER PT-F/U DR History of TMJ disorder Occ jaw clicking - no jaw locking HTN (hypertension) On home oxygen therapy 2 LPM qHS- does not always use secondary to nasal dryness Prediabetes Diet controlled Temporomandibular joint disorder CLICKS NO LOCKING Surgical History H/O arthroscopic knee surgery mult BL H/O heart artery stent x 1 H/O toe surgery History of cardiac catheterization 2016 [facility] - 1 stent History of carpal tunnel surgery History of colonoscopy History of partial colectomy History of tonsillectomy and adenoidectomy S/P CABG x 5 1992 [facility] Family History Father Diabetes Esophagus cancer Stomach cancer Heart disease Other No family history of adverse response to anesthesia Social History Smoking Status: Former smoker Tobacco Type: Cigarettes Second Hand Exposure: Yes (FAMILY SMOKED); Do You Dip or Chew Tobacco: No (QUIT 30 YRS AGO); Hx Alcohol Use: Yes Alcohol type: hard liquor Hx Substance Use: Yes Substance Use Type Other:: MEDICAL MARIJUANA DROPS 1 X A WEEK Preferred Language: Citizen Of [place] Communication Ability: Effective Smasher Required: No Beliefs That Will Affect Care: None marital status: Current Living Situation: Alone current occupational status: retired Feels Safe at Home: Yes Assistive Devices: Brace/Splint/Immobilizer, Glasses and Oxygen - at Night Allergies Allergies Allergy/AdvReac Type Severity Reaction Status Date / Time Iodinated Contrast Media Allergy Severe Anaphylaxis Verified 01/17/21 05:54 Vmhkjpu-SJF-NbJ Reductase Allergy Unknown MUSCLE Verified 01/17/21 05:54 Inhibitor ACHES [Fziiodn-Bdi-Gkr Reductase Inhibitor] Home Meds Home Medications Medication Instructions Recorded Confirmed cholecalciferol (vitamin D3) 125 5,000 unit PO QAM 05/22/18 12/16/22 mcg (5,000 unit) tablet (Vitamin D3) clopidogrel 75 mg tablet (Plavix) 75 mg PO QAM 05/22/18 12/16/22 nitroglycerin 0.4 mg sublingual 0.4 mg sublingual UD PRN Chest Pain 05/22/18 12/16/22 tablet (Nitrostat) terazosin 2 mg capsule 2 mg PO HS 05/22/18 12/16/22 vitamin E 268 mg (400 unit) capsule 400 unit PO QAM 05/22/18 12/16/22 pyridoxine (vitamin B6) 100 mg 100 mg PO QAM 12/06/20 12/16/22 tablet (Vitamin B-6) fluocinonide 0.05 % topical cream 1 applic topical BID PRN Rash 12/31/20 12/16/22 hydrocortisone valerate 0.2 % 1 applic topical BID PRN Rash 12/31/20 12/16/22 topical ointment sertraline 100 mg tablet 150 mg PO DAILY 01/07/21 12/16/22 aspirin 81 mg tablet,delayed 81 mg PO AMPM 01/10/21 12/16/22 release fluticasone propionate 50 2 spray intranasal DAILY PRN Nasal 01/10/21 12/16/22 mcg/actuation nasal Congestion spray,suspension Formulas Testosterone Cap 1 tab PO DAILY 12/16/22 12/16/22 acetaminophen 300 mg-codeine 30 mg 1 - 2 tab PO Q4H PRN Pain 12/16/22 12/16/22 tablet alirocumab 150 mg/mL subcutaneous 150 mg subcut .[id number] 12/16/22 12/16/22 pen injector (Praluent Pen) allopurinol 300 mg tablet 150 mg PO QAM 12/16/22 12/16/22 allopurinol 300 mg tablet 300 mg PO QPM 12/16/22 12/16/22 amlodipine 10 mg tablet 10 mg PO QAM 12/16/22 12/16/22 cyanocobalamin (vitamin B-12) 1,000 mcg PO DAILY 12/16/22 12/16/22 1,000 mcg tablet (Vitamin B-12) famotidine 20 mg tablet 20 mg PO BID PRN Acid Reflux 12/16/22 12/16/22 metoprolol succinate 50 mg 50 mg PO QAM 12/16/22 12/16/22 tablet,extended release 24 hr nitroglycerin 0.6 mg/hr 1 patch topical DAILY 12/16/22 12/16/22 transdermal 24 hour patch pantoprazole 40 mg tablet,delayed 40 mg PO BID 12/16/22 12/16/22 release ranolazine 500 mg tablet,extended 500 mg PO BID 12/16/22 12/16/22 release,12 hr Results & Data (ED) Vital Signs Vital Signs - 24 hr 12/16/22 08:38 12/16/22 09:19 12/16/22 10:07 Temperature 36.5 C Temperature Source Temporal Artery Scan Pulse Rate 72 72 Pulse Rate from SpO2 Sensor Pulse Rhythm Regular Respiratory Rate 22 22 Respiratory Effort / Characteristics Non-Labored Spontaneous Non-Labored Spontaneous Respiratory Depth Normal Normal Blood Pressure 115/81 Blood Pressure Mean 92 Pulse Oximetry 94 94 Oxygen Delivery Method Room Air Room Air Room Air Oxygen Flow Rate Sepsis New/Unexplained Change in Mental Status N/A Sepsis Action Taken by Nursing No Action Required Oxygen Flow Rate - Titration Pulse Oximetry Post Tiitration 12/16/22 10:07 12/16/22 10:21 12/16/22 10:08 Temperature Temperature Source Pulse Rate 65 Pulse Rate from SpO2 Sensor 66 Pulse Rhythm Respiratory Rate 21 Respiratory Effort / Characteristics Respiratory Depth Blood Pressure 117/76 Blood Pressure Mean 89 Pulse Oximetry 94 88 L 92 Oxygen Delivery Method Room Air Nasal Cannula Nasal Cannula Oxygen Flow Rate 0 2 Sepsis New/Unexplained Change in Mental Status Sepsis Action Taken by Nursing Oxygen Flow Rate - Titration 2 Pulse Oximetry Post Tiitration 95 12/16/22 10:15 12/16/22 10:30 12/16/22 10:30 Temperature Temperature Source Pulse Rate 68 64 Pulse Rate from SpO2 Sensor 68 65 Pulse Rhythm Respiratory Rate 18 19 Respiratory Effort / Characteristics Respiratory Depth Blood Pressure 117/71 Blood Pressure Mean 86 Pulse Oximetry 93 95 Oxygen Delivery Method Oxygen Flow Rate Sepsis New/Unexplained Change in Mental Status Sepsis Action Taken by Nursing Oxygen Flow Rate - Titration Pulse Oximetry Post Tiitration 12/16/22 10:45 12/16/22 11:00 12/16/22 11:00 Temperature Temperature Source Pulse Rate 69 66 Pulse Rate from SpO2 Sensor 70 66 Pulse Rhythm Respiratory Rate 14 18 Respiratory Effort / Characteristics Respiratory Depth Blood Pressure 130/90 Blood Pressure Mean 103 Pulse Oximetry 91 91 Oxygen Delivery Method Oxygen Flow Rate Sepsis New/Unexplained Change in Mental Status Sepsis Action Taken by Nursing Oxygen Flow Rate - Titration Pulse Oximetry Post Tiitration 12/16/22 11:15 12/16/22 11:30 12/16/22 11:30 Temperature Temperature Source Pulse Rate 66 74 Pulse Rate from SpO2 Sensor 70 Pulse Rhythm Respiratory Rate 14 17 Respiratory Effort / Characteristics Respiratory Depth Blood Pressure 117/76 Blood Pressure Mean 89 Pulse Oximetry 96 Oxygen Delivery Method Oxygen Flow Rate Sepsis New/Unexplained Change in Mental Status Sepsis Action Taken by Nursing Oxygen Flow Rate - Titration Pulse Oximetry Post Tiitration 12/16/22 11:45 12/16/22 11:57 12/16/22 12:00 Temperature Temperature Source Pulse Rate 68 63 Pulse Rate from SpO2 Sensor 68 Pulse Rhythm Respiratory Rate 17 Respiratory Effort / Characteristics Respiratory Depth Blood Pressure 132/79 Blood Pressure Mean 96 Pulse Oximetry 91 Oxygen Delivery Method Oxygen Flow Rate Sepsis New/Unexplained Change in Mental Status Sepsis Action Taken by Nursing Oxygen Flow Rate - Titration Pulse Oximetry Post Tiitration 12/16/22 12:00 12/16/22 12:15 12/16/22 12:30 Temperature Temperature Source Pulse Rate 64 64 Pulse Rate from SpO2 Sensor 64 65 Pulse Rhythm Respiratory Rate 22 14 Respiratory Effort / Characteristics Respiratory Depth Blood Pressure 119/82 Blood Pressure Mean 94 Pulse Oximetry 91 96 Oxygen Delivery Method Oxygen Flow Rate Sepsis New/Unexplained Change in Mental Status Sepsis Action Taken by Nursing Oxygen Flow Rate - Titration Pulse Oximetry Post Tiitration 12/16/22 12:30 12/16/22 12:45 Temperature Temperature Source Pulse Rate 65 67 Pulse Rate from SpO2 Sensor 66 67 Pulse Rhythm Respiratory Rate 19 18 Respiratory Effort / Characteristics Respiratory Depth Blood Pressure Blood Pressure Mean Pulse Oximetry 92 92 Oxygen Delivery Method Oxygen Flow Rate Sepsis New/Unexplained Change in Mental Status Sepsis Action Taken by Nursing Oxygen Flow Rate - Titration Pulse Oximetry Post Tiitration Home Medications Current Medication List: was personally reviewed by me Laboratory Data Attestation: I reviewed the patient's lab results. 12/16/22 09:48 12/16/22 09:48 Lab Results 12/16/22 12/16/22 12/16/22 Range/Units 09:48 09:48 09:48 WBC 6.18 (4.8-10.8) K/ul RBC 3.83 L (4.70-6.10) M/uL Hgb 12.0 L (14.0-18.0) g/dl Hct 35.6 L (42.0-52.0) % MCV 93.0 (80.0-100.0) fL MCH 31.3 (25.0-34.0) pg MCHC 33.7 (32.0-36.0) g/dL RDW Std Deviation 50.3 H (36.4-46.3) fL RDW Coeff of Long 14.6 H (11.5-14.5) % Plt Count 120 L (130-400) K/uL MPV 10.8 (9.4-12.4) fL Immature Gran % (Auto) 0.3 % Neut % (Auto) 82.4 % Lymph % (Auto) 6.8 % [place] % (Auto) 7.6 % Eos % (Auto) 2.4 % Baso % (Auto) 0.5 % Neut # (Auto) 5.09 (1.40-6.50) K/uL Lymph # (Auto) 0.42 L (1.2-3.4) K/uL [place] # (Auto) 0.47 (0.11-0.59) K/uL Eos # (Auto) 0.15 (0-0.50) K/uL Baso # (Auto) 0.03 (0-0.2) K/uL Immature Gran # (Auto) 0.02 (0.01-0.20) K/uL PT 10.9 (9.0-12.0) Seconds INR 1.0 (0.9-1.1) APTT 28.5 (21.0-31.0) Seconds PTT Ratio 1.0 Sodium 139 (136-145) mmol/L Potassium 4.6 (3.5-5.1) mmol/L Chloride 105 (98-107) mmol/L Carbon Dioxide 27 (21-32) mmol/L Anion Gap 7 (3-11) BUN 18 (6-23) mg/dl Creatinine 1.12 (0.6-1.4) mg/dl Est Cr Clr Drug Dosing 65.8 ml/min Est GFR ( Amer) 75.7 ml/min Est GFR (Non-Af Amer) 65.3 ml/min BUN/Creatinine Ratio 16.1 (10-20) Glucose 142 H (70-99(Fasting)) mg/dl Calcium 8.5 L (8.6-10.3) mg/dl Magnesium 2.3 (1.7-2.4) mg/dl Total Bilirubin 1.0 (0.2-1.0) mg/dl AST 20 (13-39) U/L ALT 30 (7-52) U/L Alkaline Phosphatase 44 (34-104) U/L Troponin I High Sens 48.2 H (0-20) pg/ml B-Natriuretic Peptide (0-100) pg/ml Total Protein 6.4 (6.0-8.3) gm/dl Albumin 3.9 (3.4-5.0) gm/dl Globulin 2.5 (2.5-4.0) gm/dl Albumin/Globulin Ratio 1.6 (0.9-2) Urine Color Urine Appearance (Clear) Urine pH (4.5-7.5) Ur Specific [place] (1.000-1.030) Urine Protein (Negative) Urine Glucose (UA) (Negative) Urine Ketones (Negative) Urine Blood (Negative) Urine Nitrite (Negative) Urine Bilirubin (Negative) Urine Urobilinogen (Negative) Ur Leukocyte Esterase (Negative) SARS-CoV-2, RNA, NAAT (NEGATIVE) 12/16/22 12/16/22 12/16/22 Range/Units 09:48 09:48 10:50 WBC (4.8-10.8) K/ul RBC (4.70-6.10) M/uL Hgb (14.0-18.0) g/dl Hct (42.0-52.0) % MCV (80.0-100.0) fL MCH (25.0-34.0) pg MCHC (32.0-36.0) g/dL RDW Std Deviation (36.4-46.3) fL RDW Coeff of Long (11.5-14.5) % Plt Count (130-400) K/uL MPV (9.4-12.4) fL Immature Gran % (Auto) % Neut % (Auto) % Lymph % (Auto) % [place] % (Auto) % Eos % (Auto) % Baso % (Auto) % Neut # (Auto) (1.40-6.50) K/uL Lymph # (Auto) (1.2-3.4) K/uL [place] # (Auto) (0.11-0.59) K/uL Eos # (Auto) (0-0.50) K/uL Baso # (Auto) (0-0.2) K/uL Immature Gran # (Auto) (0.01-0.20) K/uL PT (9.0-12.0) Seconds INR (0.9-1.1) APTT (21.0-31.0) Seconds PTT Ratio Sodium (136-145) mmol/L Potassium (3.5-5.1) mmol/L Chloride (98-107) mmol/L Carbon Dioxide (21-32) mmol/L Anion Gap (3-11) BUN (6-23) mg/dl Creatinine (0.6-1.4) mg/dl Est Cr Clr Drug Dosing ml/min Est GFR ( Amer) ml/min Est GFR (Non-Af Amer) ml/min BUN/Creatinine Ratio (10-20) Glucose (70-99(Fasting)) mg/dl Calcium (8.6-10.3) mg/dl Magnesium (1.7-2.4) mg/dl Total Bilirubin (0.2-1.0) mg/dl AST (13-39) U/L ALT (7-52) U/L Alkaline Phosphatase (34-104) U/L Troponin I High Sens (0-20) pg/ml B-Natriuretic Peptide 1054 H (0-100) pg/ml Total Protein (6.0-8.3) gm/dl Albumin (3.4-5.0) gm/dl Globulin (2.5-4.0) gm/dl Albumin/Globulin Ratio (0.9-2) Urine Color Yellow Urine Appearance Clear (Clear) Urine pH 6.5 (4.5-7.5) Ur Specific [place] 1.008 (1.000-1.030) Urine Protein Negative (Negative) Urine Glucose (UA) Negative (Negative) Urine Ketones Negative (Negative) Urine Blood Negative (Negative) Urine Nitrite Negative (Negative) Urine Bilirubin Negative (Negative) Urine Urobilinogen Negative (Negative) Ur Leukocyte Esterase Negative (Negative) SARS-CoV-2, RNA, NAAT NEGATIVE (NEGATIVE) Administered Medications Discontinued Medications Albuterol (Albut/Ipratrop 3mg/0.5mg Neb 3 Ml Vial) 3 ml NEB NOW STA; Protocol Stop: 12/16/22 08:57 Last Admin: 12/16/22 09:52 Dose: 3 ml Documented By: AMBREEN Furosemide (Furosemide 40 Mg/4 Ml Vial) 40 mg IV ONE ONE Stop: 12/16/22 09:05 Last Admin: 12/16/22 09:52 Dose: 40 mg Documented By: AMBREEN Imaging Data Radiologist's Impression: Chest X-Ray 12/16/22 08:45 XR chest 1V portable CLINICAL HISTORY: Dyspnea TECHNIQUE: Single frontal radiograph of the chest was obtained. Comparison: Comparison is made to chest radiograph 11/20/2022 FINDINGS: Median sternotomy wires are unchanged. Cardiomegaly is noted. There is prominence and cephalization of the vasculature with Merry B lines seen. Multifocal airspace opacities are seen most prominent in the right lower lung. No evidence of pleural effusion or pneumothorax. IMPRESSION: Cardiomegaly and moderate pulmonary edema. Multifocal airspace opacities may represent alveolar edema or superimposed aspiration/atelectasis/pneumonia. ACT 112: Negative or not required by law. Electronically signed by: Terry Shine M.D. 12/16/2022 9:11 AM Discharge Plan Visit Data Chief Complaint: Shortness of Breath/Dyspnea Stated Complaint: SOB, ED Provider: Tyler Daniels Discharge Problem: SOB (shortness of breath), Elevated troponin, CHF (congestive heart failure), Recent myocardial infarction Patient Disposition: Admitted As Inpatient Condition: Fair Discharge Instructions Interventions: ED Discharge Assessment Last Done: 12/16/22 13:43
[2022-12-16 10:10] LABS: Basophils # (auto) 0.03 K/uL (0-0.2); Basophils % (auto) 0.5 %; Eosinophils # (auto) 0.15 K/uL (0-0.50); Eosinophils % (auto) 2.4 %; Hematocrit (blood only) 35.6 % (42.0-52.0); Immature Granulocytes # (auto) 0.02 K/uL (0.01-0.20); Immature Granulocytes % (auto) 0.3 %; Lymphocytes # (auto) 0.42 K/uL (1.2-3.4); Lymphocytes % (auto) 6.8 %; Mean Corpuscular Hemoglobin 31.3 pg (25.0-34.0); Mean Corpuscular Hgb Conc 33.7 g/dL (32.0-36.0); Mean Platelet Volume 10.8 fL (9.4-12.4); Monocytes # (auto) 0.47 K/uL (0.11-0.59); Monocytes % (auto) 7.6 %; Neutrophils # (auto) 5.09 K/uL (1.40-6.50); Neutrophils % (auto) 82.4 %; Platelet Count 120 K/uL (130-400); RDW Coefficient of Variation 14.6 % (11.5-14.5); RDW Standard Deviation 50.3 fL (36.4-46.3); Red Blood Count 3.83 M/uL (4.70-6.10); White Blood Count 6.18 K/ul (4.8-10.8)
[2022-12-16 10:30] LABS: Partial Thromboplastin Time 28.5 Seconds (21.0-31.0); Prothrombin Time 10.9 Seconds (9.0-12.0)
[2022-12-16 10:32] LABS: Albumin Level 3.9 gm/dl (3.4-5.0); Calcium 8.5 mg/dl (8.6-10.3); Magnesium 2.3 mg/dl (1.7-2.4); Potassium 4.6 mmol/L (3.5-5.1)
[2022-12-16 10:38] LABS: Albumin Globulin Ratio 1.6 (0.9-2); BUN Creatinine Ratio 16.1 (10-20); Creatinine Clr Calc Pharmacy 65.8 ml/min; Est GFR (African American) 75.7 ml/min; Est GFR (Non-African American) 65.3 ml/min; Globulin 2.5 gm/dl (2.5-4.0); Total Protein 6.4 gm/dl (6.0-8.3)
[2022-12-16 10:39] LABS: Troponin I High Sensitivity 48.2 pg/ml (0-20)
[2022-12-16 11:24] LABS: Appearance Urine Clear (Clear); Bilirubin Urine Negative (Negative); Blood Urine Negative (Negative); Color Urine Yellow; Glucose Urine UA Negative (Negative); Ketones Urine Negative (Negative); Leukocyte Esterase Urine Negative (Negative); Nitrite Urine Negative (Negative); Protein Urine Negative (Negative); Specific Gravity Urine 1.008 (1.000-1.030); Urobilinogen Urine Negative (Negative); pH Urine 6.5 (4.5-7.5)
--- NOTE | 2022-12-16 12:16 | History & Physical Report ---
Date of Service December 16, 2022 History of Present Illness Chief Complaint: SOB Primary Care Provider: Miguel Suarez MD Allergies Allergy/AdvReac Type Severity Reaction Status Date / Time Iodinated Contrast Media Allergy Severe Anaphylaxis Verified 01/17/21 05:54 Zhplaam-HHX-XdA Reductase Allergy Unknown MUSCLE Verified 01/17/21 05:54 Inhibitor ACHES [Wjkoyjn-Lcb-Rxe Reductase Inhibitor] Home Medications Medication Instructions Recorded Confirmed Type cholecalciferol (vitamin D3) 125 5,000 unit PO QAM 05/22/18 12/16/22 History mcg (5,000 unit) tablet (Vitamin D3) clopidogrel 75 mg tablet (Plavix) 75 mg PO QAM 05/22/18 12/16/22 History nitroglycerin 0.4 mg sublingual 0.4 mg sublingual UD PRN Chest Pain 05/22/18 12/16/22 History tablet (Nitrostat) terazosin 2 mg capsule 2 mg PO HS 05/22/18 12/16/22 History vitamin E 268 mg (400 unit) capsule 400 unit PO QAM 05/22/18 12/16/22 History pyridoxine (vitamin B6) 100 mg 100 mg PO QAM 12/06/20 12/16/22 History tablet (Vitamin B-6) fluocinonide 0.05 % topical cream 1 applic topical BID PRN Rash 12/31/20 12/16/22 History hydrocortisone valerate 0.2 % 1 applic topical BID PRN Rash 12/31/20 12/16/22 History topical ointment sertraline 100 mg tablet 150 mg PO DAILY 01/07/21 12/16/22 History aspirin 81 mg tablet,delayed 81 mg PO AMPM 01/10/21 12/16/22 History release fluticasone propionate 50 2 spray intranasal DAILY PRN Nasal 01/10/21 12/16/22 History mcg/actuation nasal Congestion spray,suspension Formulas Testosterone Cap 1 tab PO DAILY 12/16/22 12/16/22 History acetaminophen 300 mg-codeine 30 mg 1 - 2 tab PO Q4H PRN Pain 12/16/22 12/16/22 History tablet albuterol sulfate 2.5 mg/3 mL 2.5 mg inhalation Q4H PRN 12/16/22 12/16/22 History (0.083 %) solution for nebulization Shortness Of Breath Or Wheezing alirocumab 150 mg/mL subcutaneous 150 mg subcut .[id number] 12/16/22 12/16/22 History pen injector (Praluent Pen) allopurinol 300 mg tablet 150 mg PO QAM 12/16/22 12/16/22 History allopurinol 300 mg tablet 300 mg PO QPM 12/16/22 12/16/22 History amlodipine 10 mg tablet 10 mg PO QAM 12/16/22 12/16/22 History cyanocobalamin (vitamin B-12) 1,000 mcg PO DAILY 12/16/22 12/16/22 History 1,000 mcg tablet (Vitamin B-12) famotidine 20 mg tablet 20 mg PO BID PRN Acid Reflux 12/16/22 12/16/22 History metoprolol succinate 50 mg 50 mg PO QAM 12/16/22 12/16/22 History tablet,extended release 24 hr nitroglycerin 0.6 mg/hr 1 patch topical DAILY 12/16/22 12/16/22 History transdermal 24 hour patch pantoprazole 40 mg tablet,delayed 40 mg PO BID 12/16/22 12/16/22 History release ranolazine 500 mg tablet,extended 500 mg PO BID 12/16/22 12/16/22 History release,12 hr Past Med/Surg History Medical History Anxiety BPH (benign prostatic hyperplasia) BPH with obstruction/lower urinary tract symptoms CAD (coronary artery disease) "1992 - CABG x 5 09/2016 - [facility] to [facility] 10/2016 - repeat cath, no lesions amenable to intervention, medical management recommended" Follows with Dr. Kaiser Chronic idiopathic thrombocytopenia F/U PCP Depression Dyslipidemia On injectable medications - cannot tolerate statins GERD (gastroesophageal reflux disease) Well controlled and stable with med Gout No current issues Hearing deficit BL DICK[place] Has hearing aids - not wearing hearing aids History of colon cancer dx 2017; treated surgically + oral chemo History of COVID-19 08/2020; asymptomatic -TESTED BY [facility] AT [facility] History of intestinal obstruction No recent issues History of TIA (transient ischemic attack) -"SHOWS 7 ON SCANS" PER PT-F/U DR History of TMJ disorder Occ jaw clicking - no jaw locking HTN (hypertension) On home oxygen therapy 2 LPM qHS- does not always use secondary to nasal dryness Prediabetes Diet controlled Temporomandibular joint disorder CLICKS NO LOCKING Surgical History H/O arthroscopic knee surgery mult BL H/O heart artery stent x 1 H/O toe surgery History of cardiac catheterization 2017 [facility] - 1 stent History of carpal tunnel surgery History of colonoscopy History of partial colectomy History of tonsillectomy and adenoidectomy S/P CABG x 5 1992 [facility] [place] Family History Father Diabetes Esophagus cancer Stomach cancer Heart disease Other No family history of adverse response to anesthesia Social History Smoking Status: Former smoker Tobacco Type: Cigarettes Second Hand Exposure: Yes (FAMILY SMOKED); Do You Dip or Chew Tobacco: No (QUIT 30 YRS AGO); Hx Alcohol Use: Yes Alcohol type: hard liquor Hx Substance Use: Yes Substance Use Type Other:: MEDICAL MARIJUANA DROPS 1 X A WEEK Preferred Language: Citizen Of [place] Communication Ability: Effective Pump Stitcher Required: No Beliefs That Will Affect Care: None marital status: Current Living Situation: Alone current occupational status: retired Feels Safe at Home: Yes Assistive Devices: Brace/Splint/Immobilizer, Glasses and Oxygen - at Night Results & Data Results & Data Vital Signs (Past 12 Hours) Vital Signs Temp Pulse Resp BP Pulse Ox O2 Del Method O2 Flow Rate 12/16/22 12:00 64 22 91 12/16/22 12:00 132/79 12/16/22 11:57 63 12/16/22 11:45 68 17 91 12/16/22 11:30 74 17 96 12/16/22 11:30 117/76 12/16/22 11:15 66 14 12/16/22 11:00 66 18 91 12/16/22 11:00 130/90 12/16/22 10:45 69 14 91 12/16/22 10:30 64 19 95 12/16/22 10:30 117/71 12/16/22 10:15 68 18 93 12/16/22 10:08 65 21 117/76 92 Nasal Cannula 2 12/16/22 10:21 88 L Nasal Cannula 0 12/16/22 10:07 94 Room Air 12/16/22 10:07 Room Air 12/16/22 09:19 72 22 94 Room Air 12/16/22 08:38 36.5 C 72 22 115/81 94 Room Air
[2022-12-16] MEDS ORDERED: POLYETHYLENE (MIRALAX) 17 GM PACK PO PRN (12:30)
--- NOTE | 2022-12-16 12:30 | History & Physical Report ---
Date of Service December 16, 2022 Assessment & Plan (1) CHF exacerbation: Plan: acute CHF-no h/o systolic dysfunction. Progressive symptoms of volume overload over last few days including +PND, +orthopnea, exercise intolerance, and chest discomfort. Objective data include pulmonary edema on CXR and an elevated BNP. Trop madly elevated and EKG reveals no acute ischemic changes. Physical exam supports this diagnosis wtih crackles in lungs on auscultation and abdominal distension. Trend trop to ensure no developing ACS given profound h/o CAD and recent PCI to LAD a few months ago. Trend EKG daily. Monitor on telemetry. Update echo. Consult cardiology. Cont with Lasix 40mg IV daily and monitor I/Os. PT/OT consultation. (2) CAD (coronary artery disease): Plan: s/p CABG in 1992 and most recently he came to [facility] and underwent cardiac catheterization where there was concern for two venous grafts from his bypass that had become occluded as well as an LAD stenosis where the graft was implanted. He was transferred to [facility] for further management and underwent left heart cath with a drug-eluting stent to LAD on 11/24/2022. This was a left femoral artery access. He did have mild ROD with creatinine up to 1.6 which has resolved and was felt to be associated with contrast-induced nephropathy. Creatinine is back to baseline today. F/u repeat echo, trend trop, monitor on telemetry and cont current medical therapy including nitro, Toprol, ASA, Plavix, Ranexa and noted allergy to statins. (3) Alcohol abuse: Plan: Heavily drinks bourbon approximately 4 drinks TIW. Monitor closely for any withdrawal symptoms. This may be contributing to his severe heartburn issues, and will need to application counselor him to cut down on his drinking or stop altogether. (4) GERD (gastroesophageal reflux disease): Plan: chronic, stable. Cont PPI BID with Pepcid for breakthrough. (5) Gout: Plan: chronic, stable. Cont allopurinol. (6) Depression: Plan: chronic, stable. Cont sertraline per home regimen. Lovenox Full Dispo-to PCU DO [facility] Hospitalist History of Present Illness Primary Care Provider: Miguel Suarez MD 72 yo M with h/o CAD presents with 3 days of shortness of breath. Some dry coughing present. Some chest discomfort present, unsure if triggered by anything but possibly from exertion. Better with rest. +orthopnea, +PND, +exertional dyspnea. 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 Currently he cannot walk more than a couple of steps and he becomes winded. Not on diuretics at home and was given Lasix 40mg IV in the ER. ROS reveals weight loss since recent hospital stay and some constipation. Recent medication changes include daily nitro patch (0.6mg/24hr) in place of isosorbide mononitrate, increase in amlodipine to 10mg daily, NEW Ranexa 500mg BID, NEW toprol XL 50mg PO daily. Allergies Allergy/AdvReac Type Severity Reaction Status Date / Time Iodinated Contrast Media Allergy Severe Anaphylaxis Verified 01/17/21 05:54 Uzdnnhi-MTX-OkS Reductase Allergy Unknown MUSCLE Verified 01/17/21 05:54 Inhibitor ACHES [Wjjvots-Zpu-Mrl Reductase Inhibitor] Home Medications Medication Instructions Recorded Confirmed Type cholecalciferol (vitamin D3) 125 5,000 unit PO QAM 05/22/18 12/16/22 History mcg (5,000 unit) tablet (Vitamin D3) clopidogrel 75 mg tablet (Plavix) 75 mg PO QAM 05/22/18 12/16/22 History nitroglycerin 0.4 mg sublingual 0.4 mg sublingual UD PRN Chest Pain 05/22/18 12/16/22 History tablet (Nitrostat) terazosin 2 mg capsule 2 mg PO HS 05/22/18 12/16/22 History vitamin E 268 mg (400 unit) capsule 400 unit PO QAM 05/22/18 12/16/22 History pyridoxine (vitamin B6) 100 mg 100 mg PO QAM 12/06/20 12/16/22 History tablet (Vitamin B-6) fluocinonide 0.05 % topical cream 1 applic topical BID PRN Rash 12/31/20 12/16/22 History hydrocortisone valerate 0.2 % 1 applic topical BID PRN Rash 12/31/20 12/16/22 History topical ointment sertraline 100 mg tablet 150 mg PO DAILY 01/07/21 12/16/22 History aspirin 81 mg tablet,delayed 81 mg PO AMPM 01/10/21 12/16/22 History release fluticasone propionate 50 2 spray intranasal DAILY PRN Nasal 01/10/21 12/16/22 History mcg/actuation nasal Congestion spray,suspension Formulas Testosterone Cap 1 tab PO DAILY 12/16/22 12/16/22 History acetaminophen 300 mg-codeine 30 mg 1 - 2 tab PO Q4H PRN Pain 12/16/22 12/16/22 History tablet alirocumab 150 mg/mL subcutaneous 150 mg subcut .[id number] 12/16/22 12/16/22 History pen injector (Praluent Pen) allopurinol 300 mg tablet 150 mg PO QAM 12/16/22 12/16/22 History allopurinol 300 mg tablet 300 mg PO QPM 12/16/22 12/16/22 History amlodipine 10 mg tablet 10 mg PO QAM 12/16/22 12/16/22 History cyanocobalamin (vitamin B-12) 1,000 mcg PO DAILY 12/16/22 12/16/22 History 1,000 mcg tablet (Vitamin B-12) famotidine 20 mg tablet 20 mg PO BID PRN Acid Reflux 12/16/22 12/16/22 History metoprolol succinate 50 mg 50 mg PO QAM 12/16/22 12/16/22 History tablet,extended release 24 hr nitroglycerin 0.6 mg/hr 1 patch topical DAILY 12/16/22 12/16/22 History transdermal 24 hour patch pantoprazole 40 mg tablet,delayed 40 mg PO BID 12/16/22 12/16/22 History release ranolazine 500 mg tablet,extended 500 mg PO BID 12/16/22 12/16/22 History release,12 hr Past Med/Surg History Medical History (Updated 12/16/22 @ 13:15 by Jo Anderson, DO) Anxiety BPH (benign prostatic hyperplasia) BPH with obstruction/lower urinary tract symptoms CAD (coronary artery disease) "1992 - CABG x 5 09/2016 - [facility] to SVG of OM 10/2016 - repeat cath, no lesions amenable to intervention, medical management recommended" Follows with Dr. Kaiser Chronic idiopathic thrombocytopenia F/U PCP Depression Dyslipidemia On injectable medications - cannot tolerate statins GERD (gastroesophageal reflux disease) Well controlled and stable with med Gout No current issues Hearing deficit BL DICKSON Has hearing aids - not wearing hearing aids History of colon cancer dx 2016; treated surgically + oral chemo History of COVID-19 08/2020; asymptomatic -TESTED BY [facility] AT [facility] History of intestinal obstruction No recent issues History of TIA (transient ischemic attack) -"SHOWS 7 ON SCANS" PER PT-F/U DR History of TMJ disorder Occ jaw clicking - no jaw locking HTN (hypertension) On home oxygen therapy 2 LPM qHS- does not always use secondary to nasal dryness Prediabetes Diet controlled Temporomandibular joint disorder CLICKS NO LOCKING Surgical History H/O arthroscopic knee surgery mult BL H/O heart artery stent x 1 H/O toe surgery History of cardiac catheterization [address] [facility] - 1 stent History of carpal tunnel surgery History of colonoscopy History of partial colectomy History of tonsillectomy and adenoidectomy S/P CABG x 5 1992 [facility] Ne[facility] Family History Father Diabetes Esophagus cancer Stomach cancer Heart disease Other No family history of adverse response to anesthesia Social History Smoking Status: Former smoker Tobacco Type: Cigarettes Second Hand Exposure: Yes (FAMILY SMOKED); Do You Dip or Chew Tobacco: No (QUIT 30 YRS AGO); Hx Alcohol Use: Yes Alcohol type: hard liquor Hx Substance Use: Yes Substance Use Type Other:: MEDICAL MARIJUANA DROPS 1 X A WEEK Preferred Language: Armenian Communication Ability: Effective Citrus Peeler Required: No Beliefs That Will Affect Care: None marital status: Current Living Situation: Alone current occupational status: retired Feels Safe at Home: Yes Assistive Devices: Brace/Splint/Immobilizer, Glasses and Oxygen - at Night Review of Systems Review of Systems: All systems were reviewed and negative except as indicated in HPi above. Physical Exam Physical Exam: CONSTITUTIONAL: WNWD, vitals as above, generally well-appearing, NAD EYES: normal conjunctivae, no scleral icterus ENT: external ear and nose normal, MMM, 2LPM nasal canula in place. NECK: trachea midline, no JVD RESPIRATORY: scant crackles heard throughout all lung munoz, some diminished airflow at the bases bilaterally, no rales or wheezes, normal respiratory effort CARDIOVASCULAR: regular rate and rhythm, S1 and 2 heard without murmurs, gallops or rubs, no JVD, no peripheral edema CHEST: inspection of chest was normal GASTROINTESTINAL: soft, nontender, ND, no guarding MUSCULOSKELETAL: strength 5/5 throughout, head is normocephalic and atraumatic SKIN: warm and dry NEUROLOGIC: CN 2-12 grossly intact, no sensory deficit, normal cognition, normal speech, no tremor PSYCHIATRIC: alert cooperative and oriented to person, place and time. Euthymic mood, makes good eye contact, language grossly intact, recent and remote memory grossly intact. Results & Data Results & Data Vital Signs (Past 12 Hours) Vital Signs Temp Pulse Resp BP Pulse Ox O2 Del Method O2 Flow Rate 12/16/22 12:00 64 22 91 12/16/22 12:00 132/79 12/16/22 11:57 63 12/16/22 11:45 68 17 91 12/16/22 11:30 74 17 96 12/16/22 11:30 117/76 12/16/22 11:15 66 14 12/16/22 11:00 66 18 91 12/16/22 11:00 130/90 12/16/22 10:45 69 14 91 12/16/22 10:30 64 19 95 12/16/22 10:30 117/71 12/16/22 10:15 68 18 93 12/16/22 10:08 65 21 117/76 92 Nasal Cannula 2 12/16/22 10:21 88 L Nasal Cannula 0 12/16/22 10:07 94 Room Air 12/16/22 10:07 Room Air 12/16/22 09:19 72 22 94 Room Air 12/16/22 08:38 36.5 C 72 22 115/81 94 Room Air Laboratory Results Short CBC 12/16/22 Range/Units 09:48 WBC 6.18 (4.8-10.8) K/ul Hgb 12.0 L (14.0-18.0) g/dl Hct 35.6 L (42.0-52.0) % Plt Count 120 L (130-400) K/uL BMP 12/16/22 09:48 Sodium 139 Potassium 4.6 Chloride 105 Carbon Dioxide 27 BUN 18 Creatinine 1.12 Glucose 142 H Calcium 8.5 L Liver Function 12/16/22 Range/Units 09:48 Total Bilirubin 1.0 (0.2-1.0) mg/dl AST 20 (13-39) U/L ALT 30 (7-52) U/L Alkaline Phosphatase 44 (34-104) U/L Albumin 3.9 (3.4-5.0) gm/dl Urine 12/16/22 Range/Units 10:50 Urine Color Yellow Urine Appearance Clear (Clear) Urine pH 6.5 (4.5-7.5) Ur Specific Cecil 1.008 (1.000-1.030) Urine Protein Negative (Negative) Urine Glucose (UA) Negative (Negative) Diagnostic Findings Chest X-Ray 12/16/22 08:45 XR chest 1V portable CLINICAL HISTORY: Dyspnea TECHNIQUE: Single frontal radiograph of the chest was obtained. Comparison: Comparison is made to chest radiograph 11/20/2022 FINDINGS: Median sternotomy wires are unchanged. Cardiomegaly is noted. There is prominence and cephalization of the vasculature with Merry B lines seen. Multifocal airspace opacities are seen most prominent in the right lower lung. No evidence of pleural effusion or pneumothorax. IMPRESSION: Cardiomegaly and moderate pulmonary edema. Multifocal airspace opacities may represent alveolar edema or superimposed aspiration/atelectasis/pneumonia. ACT 112: Negative or not required by law. Electronically signed by: Terry Shine M.D. 12/16/2022 9:11 AM
[2022-12-16] MEDS ORDERED: ACETAMINOPHEN 325 MG TAB PO PRN (15:00)
[2022-12-16] MEDS ORDERED: FAMOTIDINE 20 MG TAB PO PRN (15:00)
[2022-12-16] MEDS ORDERED: NITROGLYCERIN 0.6 MG/HR PATCH TD SCH (15:30)
--- NOTE | 2022-12-16 15:48 | Cardiology Consultation ---
Date of Consultation December 16, 2022 Assessment & Plan (1) Acute heart failure with reduced ejection fraction and diastolic dysfunction: (2) CAD (coronary artery disease), kotlik coronary artery: (3) LBBB (left bundle branch block): Plan 72-year-old patient presents with acute decompensated heart failure. Echocardiogram revealing mild LV systolic dysfunction with moderate mitral regurgitation and mild pulmonary hypertension. Patient received 1 dose of IV furosemide in the ER with moderate diuresis. Scheduled to receive additional dose of Lasix in a.m. Follow daily weight, GFR, fluid balance, and electrolytes. Reduce amlodipine to 5 mg daily. Will add Entresto and or sp ironolactone during hospitalization pending review of follow-up lab studies and clinical course. Optimize evidence-based heart failure therapy as tolerated. Continue dual antiplatelet therapy uninterrupted in light of recent percutaneous intervention as described above. All questions answered to satisfaction of both patient and his daughter. Thank you for allow me to participate in the care of your patient. History of Present Illness Reason for Consultation: CHF Requesting Physician: Dr. Anderson Attending Physician: Jo Anderson, History of Present Illness 72-year-old patient presented to the emergency department with 3 days of shortness of breath, dry cough, and chest discomfort. Reports orthopnea, paroxysmal nocturnal dyspnea, and weight gain. Weight is up more than 10 pounds over the past 2 weeks. Amlodipine recently titrated to 10 mg daily. Hospitalized in mid November due to unstable angina. Diagnostic cardiac catheterization was performed on 11/20/[address] Tello demonstrating severe kotlik vessel coronary artery disease with 100% LAD, circumflex, and RCA occlusion. VICTORIA Y graft to LAD and diagonal branch vessel noted. The diagonal limb widely patent, however, there was a 90% stenosis at the anastomosis of the LAD. Patent TERRY to PDA, occluded SVG to OM1, and occluded SVG to OM 2 noted. Patient transferred to [facility] in [place] where a drug-eluting stent was implanted to the LAD-VICTORIA anastomosis with a 2.5x20mm Synergy drug- eluting stent. Currently, patient resting comfortably. Received 1 dose of IV Lasix in the ER. No significant diuresis. No chest discomfort or heaviness. Denies palpitations, lightheadedness, dizziness, syncope, or near syncope. No recent excessive sodium or fluid intake. Has not used any sublingual nitroglycerin. Notes occasional episodes of chest discomfort at rest described as an "pinching sensation". Allergies Allergy/AdvReac Type Severity Reaction Status Date / Time Iodinated Contrast Media Allergy Severe Anaphylaxis Verified 01/17/21 05:54 Croerla-CZQ-TcF Reductase Allergy Unknown MUSCLE Verified 01/17/21 05:54 Inhibitor ACHES [Lamkinj-Tts-Gwv Reductase Inhibitor] Home Medications Medication Instructions Recorded Confirmed Type cholecalciferol (vitamin D3) 125 5,000 unit PO QAM 05/22/18 12/16/22 History mcg (5,000 unit) tablet (Vitamin D3) clopidogrel 75 mg tablet (Plavix) 75 mg PO QAM 05/22/18 12/16/22 History nitroglycerin 0.4 mg sublingual 0.4 mg sublingual UD PRN Chest Pain 05/22/18 12/16/22 History tablet (Nitrostat) terazosin 2 mg capsule 2 mg PO HS 05/22/18 12/16/22 History vitamin E 268 mg (400 unit) capsule 400 unit PO QAM 05/22/18 12/16/22 History pyridoxine (vitamin B6) 100 mg 100 mg PO QAM 12/06/20 12/16/22 History tablet (Vitamin B-6) fluocinonide 0.05 % topical cream 1 applic topical BID PRN Rash 12/31/20 12/16/22 History hydrocortisone valerate 0.2 % 1 applic topical BID PRN Rash 12/31/20 12/16/22 History topical ointment sertraline 100 mg tablet 150 mg PO DAILY 01/07/21 12/16/22 History aspirin 81 mg tablet,delayed 81 mg PO AMPM 01/10/21 12/16/22 History release fluticasone propionate 50 2 spray intranasal DAILY PRN Nasal 01/10/21 12/16/22 History mcg/actuation nasal Congestion spray,suspension Formulas Testosterone Cap 1 tab PO DAILY 12/16/22 12/16/22 History acetaminophen 300 mg-codeine 30 mg 1 - 2 tab PO Q4H PRN Pain 12/16/22 12/16/22 History tablet alirocumab 150 mg/mL subcutaneous 150 mg subcut .[id number] 12/16/22 12/16/22 History pen injector (Praluent Pen) allopurinol 300 mg tablet 150 mg PO QAM 12/16/22 12/16/22 History allopurinol 300 mg tablet 300 mg PO QPM 12/16/22 12/16/22 History amlodipine 10 mg tablet 10 mg PO QAM 12/16/22 12/16/22 History cyanocobalamin (vitamin B-12) 1,000 mcg PO DAILY 12/16/22 12/16/22 History 1,000 mcg tablet (Vitamin B-12) famotidine 20 mg tablet 20 mg PO BID PRN Acid Reflux 12/16/22 12/16/22 History metoprolol succinate 50 mg 50 mg PO QAM 12/16/22 12/16/22 History tablet,extended release 24 hr nitroglycerin 0.6 mg/hr 1 patch topical DAILY 12/16/22 12/16/22 History transdermal 24 hour patch pantoprazole 40 mg tablet,delayed 40 mg PO BID 12/16/22 12/16/22 History release ranolazine 500 mg tablet,extended 500 mg PO BID 12/16/22 12/16/22 History release,12 hr Patient History Medical History Anxiety BPH (benign prostatic hyperplasia) BPH with obstruction/lower urinary tract symptoms CAD (coronary artery disease) "1992 - CABG x 5 09/2016 - [facility] to SVG of OM 10/2016 - repeat cath, no lesions amenable to intervention, medical management recommended" Follows with Dr. Kaiser Chronic idiopathic thrombocytopenia F/U PCP Depression Dyslipidemia On injectable medications - cannot tolerate statins GERD (gastroesophageal reflux disease) Well controlled and stable with med Gout No current issues Hearing deficit BL DICKSON Has hearing aids - not wearing hearing aids History of colon cancer dx 2016; treated surgically + oral chemo History of COVID-19 08/2020; asymptomatic -TESTED BY [facility] AT [facility] History of intestinal obstruction No recent issues History of TIA (transient ischemic attack) -"SHOWS 7 ON SCANS" PER PT-F/U History of TMJ disorder Occ jaw clicking - no jaw locking HTN (hypertension) On home oxygen therapy 2 LPM qHS- does not always use secondary to nasal dryness Prediabetes Diet controlled Temporomandibular joint disorder CLICKS NO LOCKING Surgical History H/O arthroscopic knee surgery mult BL H/O heart artery stent x 1 H/O toe surgery History of cardiac catheterization 2016 [facility] Neisha - 1 stent History of carpal tunnel surgery History of colonoscopy History of partial colectomy History of tonsillectomy and adenoidectomy 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 Family History Father Diabetes Esophagus cancer Stomach cancer Heart disease Other No family history of adverse response to anesthesia Social History Smoking Status: Former smoker Tobacco Type: Cigarettes Second Hand Exposure: Yes (FAMILY SMOKED); Do You Dip or Chew Tobacco: No (QUIT 30 YRS AGO); Hx Alcohol Use: Yes Alcohol type: hard liquor Hx Substance Use: No Preferred Language: French Communication Ability: Effective Food Product Inspector Required: No Beliefs That Will Affect Care: None marital status: Current Living Situation: Family current occupational status: retired Feels Safe at Home: Yes Assistive Devices: Glasses Review of Systems Review of Systems: All systems reviewed & are unremarkable except as noted in Subjective Physical Exam Constitutional: well nourished; no acute distress Respiratory: normal respiratory effort; no respiratory distress, no labored breathing and no retractions Auscultation: + rales (Bases bilateral); no rhonchi and no wheezes Cardiovascular: Rate/Rhythm: regular rate and regular rhythm Heart Sounds: normal S1 and normal S2; no murmur and no cardiac rub Vessels: + JVD and radial pulses present; no carotid bruit Extremities: no edema Gastrointestinal (Abdomen): Inspection/Auscultation: abdomen normal to inspection, + abdomen distended and normal bowel sounds Percussion/Palpation: abdomen soft; abdomen nontender, no guarding and abdomen not rigid Neurologic: CN's II-XI intact bilaterally and moves all extremities; no focal motor deficits Psychiatric: A+Ox3, euthymic affect Results & Data Vital Signs (Past 12 Hours) Vital Signs Temp Pulse Pulse Resp BP BP Pulse Ox 12/16/22 15:15 12/16/22 15:15 36.6 C 66 108/71 94 12/16/22 14:15 62 15 92 12/16/22 14:00 62 14 93 12/16/22 14:00 106/77 12/16/22 13:45 63 14 94 12/16/22 13:30 63 15 91 12/16/22 13:30 124/76 12/16/22 13:15 64 21 90 12/16/22 13:00 61 17 92 12/16/22 13:00 124/78 12/16/22 12:45 67 18 92 12/16/22 12:30 65 19 92 12/16/22 12:30 119/82 12/16/22 12:15 64 14 96 12/16/22 12:00 64 22 91 12/16/22 12:00 132/79 12/16/22 11:57 63 12/16/22 11:45 68 17 91 12/16/22 11:30 74 17 96 12/16/22 11:30 117/76 12/16/22 11:15 66 14 12/16/22 11:00 66 18 91 12/16/22 11:00 130/90 12/16/22 10:45 69 14 91 12/16/22 10:30 64 19 95 12/16/22 10:30 117/71 12/16/22 10:15 68 18 93 12/16/22 10:08 65 21 117/76 92 12/16/22 10:21 88 L 12/16/22 10:07 94 12/16/22 10:07 12/16/22 09:19 72 22 94 12/16/22 08:38 36.5 C 72 22 115/81 94 O2 Del Method O2 Flow Rate 12/16/22 15:15 Nasal Cannula 2 12/16/22 15:15 Nasal Cannula 2 12/16/22 14:15 12/16/22 14:00 12/16/22 14:00 12/16/22 13:45 12/16/22 13:30 12/16/22 13:30 12/16/22 13:15 12/16/22 13:00 12/16/22 13:00 12/16/22 12:45 12/16/22 12:30 12/16/22 12:30 12/16/22 12:15 12/16/22 12:00 12/16/22 12:00 12/16/22 11:57 12/16/22 11:45 12/16/22 11:30 12/16/22 11:30 12/16/22 11:15 12/16/22 11:00 12/16/22 11:00 12/16/22 10:45 12/16/22 10:30 12/16/22 10:30 12/16/22 10:15 12/16/22 10:08 Nasal Cannula 2 12/16/22 10:21 Nasal Cannula 0 12/16/22 10:07 Room Air 12/16/22 10:07 Room Air 12/16/22 09:19 Room Air 12/16/22 08:38 Room Air Laboratory Results Cardiac Enzymes 12/16/22 12/16/22 Range/Units 09:48 09:48 AST 20 (13-39) U/L Troponin I High Sens 48.2 H (0-20) pg/ml B-Natriuretic Peptide 1054 H (0-100) pg/ml Coagulation 12/16/22 12/16/22 Range/Units 09:48 09:48 PT 10.9 (9.0-12.0) Seconds APTT 28.5 (21.0-31.0) Seconds B-Natriuretic Peptide 1054 H (0-100) pg/ml CBC 12/16/22 Range/Units 09:48 WBC 6.18 (4.8-10.8) K/ul RBC 3.83 L (4.70-6.10) M/uL Hgb 12.0 L (14.0-18.0) g/dl Hct 35.6 L (42.0-52.0) % Plt Count 120 L (130-400) K/uL Neut # (Auto) 5.09 (1.40-6.50) K/uL Lymph # (Auto) 0.42 L (1.2-3.4) K/uL [place] # (Auto) 0.47 (0.11-0.59) K/uL Eos # (Auto) 0.15 (0-0.50) K/uL Baso # (Auto) 0.03 (0-0.2) K/uL Comprehensive Metabolic Panel 12/16/22 Range/Units 09:48 Sodium 139 (136-145) mmol/L Potassium 4.6 (3.5-5.1) mmol/L Chloride 105 (98-107) mmol/L Carbon Dioxide 27 (21-32) mmol/L BUN 18 (6-23) mg/dl Creatinine 1.12 (0.6-1.4) mg/dl Glucose 142 H (70-99(Fasting)) mg/dl Calcium 8.5 L (8.6-10.3) mg/dl AST 20 (13-39) U/L ALT 30 (7-52) U/L Alkaline Phosphatase 44 (34-104) U/L Total Protein 6.4 (6.0-8.3) gm/dl Albumin 3.9 (3.4-5.0) gm/dl Intake and Output 12/16/22 12/16/22 12/16/22 06:59 14:59 22:59 Output Total 375 / 375 Balance -375 / -375 Output: Urine 375 / 375 Other: Weight 92.5 kg 92.5 kg Weight Measurement Method Chair Scale Standing Scale Patient Weight 12/17/22 06:59 Weight 92.5 kg
[2022-12-16] MEDS: allopurinoL 300 MG TAB PO SCH (22:08)
[2022-12-16] MEDS: TERAZOSIN HCL 1 MG CAP PO SCH (22:08)
[2022-12-16] MEDS: ASPIRIN 81 MG ECTAB PO SCH (22:09)
[2022-12-16] MEDS: RANOLAZINE 500 MG ER TAB PO SCH (22:09)
[2022-12-16] MEDS: DOCUSATE SODIUM 100 MG CAP PO SCH (22:09)
[2022-12-16] MEDS: PANTOprazole 40 MG TAB PO SCH (22:10)
--- NOTE | 2022-12-17 05:36 | Electrocardiogram Report ---
Test Reason : Blood Pressure : / mmHG Vent. Rate : 066 BPM Atrial Rate : 066 BPM P-R Int : 214 ms QRS Dur : 178 ms QT Int : 448 ms P-R-T Axes : 062 097 -78 degrees QTc Int : 469 ms Sinus rhythm with 1st degree A-V block Rightward axis Left bundle branch block Abnormal ECG When compared with ECG of 20-NOV-2022 16:18, Left bundle branch block is now Present Confirmed by Oswaldo Badillo ([id number]) on 12/17/2022 5:36:26 AM Referred By: Confirmed By:Oswaldo Badillo
[2022-12-17 07:45] LABS: Hematocrit (blood only) 34.4 % (42.0-52.0); Hemoglobin 11.4 g/dl (14.0-18.0); Mean Corpuscular Hemoglobin 30.9 pg (25.0-34.0); Mean Corpuscular Hgb Conc 33.1 g/dL (32.0-36.0); Mean Corpuscular Volume 93.2 fL (80.0-100.0); Mean Platelet Volume 11.2 fL (9.4-12.4); Platelet Count 123 K/uL (130-400); RDW Coefficient of Variation 14.4 % (11.5-14.5); RDW Standard Deviation 49.1 fL (36.4-46.3); Red Blood Count 3.69 M/uL (4.70-6.10); White Blood Count 4.38 K/ul (4.8-10.8)
[2022-12-17 08:13] LABS: Calcium 8.3 mg/dl (8.6-10.3); Magnesium 2.3 mg/dl (1.7-2.4); Potassium 4.2 mmol/L (3.5-5.1)
[2022-12-17 08:19] LABS: BUN Creatinine Ratio 13.5 (10-20); Creatinine Clr Calc Pharmacy 51.3 ml/min; Est GFR (African American) 65.6 ml/min; Est GFR (Non-African American) 56.6 ml/min; Phosphorus 3.5 mg/dl (2.5-4.9)
[2022-12-17] MEDS: ASPIRIN 81 MG ECTAB PO SCH ×2 (08:47→22:11)
[2022-12-17] MEDS: RANOLAZINE 500 MG ER TAB PO SCH ×2 (08:48→22:13)
[2022-12-17] MEDS: SERTRALINE HCL 50 MG TABLET PO SCH (08:48)
[2022-12-17] MEDS: METOPROLOL SUCC 50MG EXT REL TAB PO SCH (08:48)
[2022-12-17] MEDS: PANTOprazole 40 MG TAB PO SCH ×2 (08:48→22:13)
[2022-12-17] MEDS: allopurinoL 300 MG TAB PO SCH ×2 (08:49→22:12)
[2022-12-17] MEDS: PYRIDOXINE HCL 50 MG TAB PO SCH (08:49)
[2022-12-17] MEDS: CYANOCOBALAMIN (B-12) 500 MCG TABLET PO SCH (08:50)
[2022-12-17] MEDS: amLODIPine BESYLATE 5 MG TAB PO SCH (08:50)
[2022-12-17] MEDS: CLOPIDOGREL BISULFATE 75 MG TAB PO SCH (08:51)
[2022-12-17] MEDS: CHOLECALCIFEROL 5,000 UNITS 125 MCG TAB PO SCH (08:51)
[2022-12-17] MEDS: NITROGLYCERIN 0.6 MG/HR PATCH TD SCH (08:51)
[2022-12-17] MEDS: DOCUSATE SODIUM 100 MG CAP PO SCH ×2 (08:52→22:11)
--- NOTE | 2022-12-17 08:53 | Hospitalist Progress Note ---
Date of Service December 17, 2022 Assessment & Plan (1) CHF exacerbation: Plan: Acute CHF Acute heart failure with reduced ejection fraction and diastolic dysfunction Progressive symptoms of volume overload over last few days including +PND, + orthopnea, exercise intolerance, and chest discomfort. + Pulmonary edema on CXR and an elevated BNP. Trop mildly elevated and EKG reveals no acute ischemic changes. Physical exam w/ +crackles on auscultation and abdominal distension. Trend trop to ensure no developing ACS given profound h/o CAD and recent PCI to LAD a month ago. Trend EKG daily. Monitor on telemetry. Echo obtained. LV systolic function is mildly reduced. EF 45 to 50%. Septal motion is consistent with conduction abnormality. There is a moderate sized septal, inferior, and posterior wall motion abnormality with hypokinesis to akinesis of the segments. Left atrium is moderately dilated. Aortic valve sclerosis mild, without significant aortic valvular stenosis. Mild aortic regurg. There is moderate mitral regurg. There is mild tricuspid regurg. The estimated systolic pulmonary pressure is 46 mmHg. Cardiology consulted - Cont with Lasix 40mg IV daily , give another dose of IV lasix this PM. Repeat CXR tmrw AM monitor I/Os Replete electrolytes PT/OT consultation. (2) CAD (coronary artery disease): Plan: s/p CABG in 1992 and most recently pt came to [facility] and underwent cardiac catheterization where there was concern for two venous grafts from his bypass that had become occluded as well as an LAD stenosis where the graft was implanted. He was transferred to [facility] [place] further management and underwent left heart cath with a drug-eluting stent to LAD on 11/24/2022. This was a left femoral artery access. He did have mild ROD with creatinine up to 1.6 which has resolved and was felt to be associated with contrast-induced nephropathy. Creatinine is back to baseline. Repeated echo (as above), trended trop, monitor on telemetry and cont current medical therapy including nitro, Toprol, ASA, Plavix, Ranexa and noted allergy to statins. Cardiology consulted and following. (3) Alcohol abuse: Plan: Drinks bourbon approximately 4 drinks TIW. Monitor closely for any withdrawal symptoms. This may be contributing to his heartburn issues, and will need to executive assistant to general counsel him to cut down on his drinking or stop altogether. (4) GERD (gastroesophageal reflux disease): Plan: chronic, stable. Cont PPI BID with Pepcid for breakthrough. (5) Gout: Plan: chronic, stable. Cont allopurinol. (6) Depression: Plan: chronic, stable. Cont sertraline per home regimen. Carlx Full Dispo- PCU Admission and Anticipated Discharge Date Admission Date: December 16, 2022 Subjective Pt seen in follow up of acute CHF, hx of CAD, s/p cabg Currently sitting up in bed, in NAD, on suppl. O2, 2L Pt's son present at the bedside. Patient reports feeling much better since admission, breathing easier However he also reports having an episode of left upper chest discomfort earlier today Currently no chest pain. No fevers chills, no abdominal pain, no nausea vomiting. Review of Systems Review of Systems: All systems reviewed & are unremarkable except as noted in Subjective Physical Exam Physical Exam: CONSTITUTIONAL: WNWD, in NAD, on suppl. O2, 2L via NC EYES: normal conjunctivae, no scleral icterus ENT: external ear and nose normal, MMM NECK: trachea midline RESPIRATORY: scant crackles heard throughout all lung munoz, some diminished airflow at the bases bilaterally, no rales or wheezes, normal respiratory effort CARDIOVASCULAR: regular rate and rhythm, S1 and 2 heard without murmurs, gallops or rubs, no JVD, no peripheral edema CHEST: normal inspection of chest GASTROINTESTINAL: soft, obese, nontender, no guarding MUSCULOSKELETAL: head is normocephalic and atraumatic, moves extremities SKIN: warm and dry NEUROLOGIC: awake, alert, answers appropriately, normal speech, no tremor, moves extremities Results & Data Results & Data Vital Signs (Past 12 Hours) Vital Signs Temp Pulse Pulse Resp BP BP Pulse Ox 12/17/22 07: 36.9 C 60 20 108/72 96 12/17/22 07:13 64 12/17/22 03:53 36.7 C 61 18 122/80 95 12/16/22 22:00 12/16/22 22:00 65 12/16/22 22:50 37.2 C 63 18 131/80 93 O2 Del Method O2 Flow Rate 12/17/22 07:23 Nasal Cannula 2 12/17/22 07:13 12/17/22 03:53 Nasal Cannula 2 12/16/22 22:00 Nasal Cannula 2 12/16/22 22:00 12/16/22 22:50 Nasal Cannula 2 Laboratory Results 12/17/22 12/17/22 12/17/22 Range/Units 06:54 06:54 06:54 WBC 4.38 L (4.8-10.8) K/ul RBC 3.69 L (4.70-6.10) M/uL Hgb 11.4 L (14.0-18.0) g/dl Hct 34.4 L (42.0-52.0) % MCV 93.2 (80.0-100.0) fL MCH 30.9 (25.0-34.0) pg MCHC 33.1 (32.0-36.0) g/dL RDW Std Deviation 49.1 H (36.4-46.3) fL RDW Coeff of Long 14.4 (11.5-14.5) % Plt Count 123 L (130-400) K/uL MPV 11.2 (9.4-12.4) fL Immature Gran % (Auto) % Neut % (Auto) % Lymph % (Auto) % Elbert % (Auto) % Eos % (Auto) % Baso % (Auto) % Neut # (Auto) (1.40-6.50) K/uL Lymph # (Auto) (1.2-3.4) K/uL Elbert # (Auto) (0.11-0.59) K/uL Eos # (Auto) (0-0.50) K/uL Baso # (Auto) (0-0.2) K/uL Immature Gran # (Auto) (0.01-0.20) K/uL PT (9.0-12.0) Seconds INR (0.9-1.1) APTT (21.0-31.0) Seconds PTT Ratio Sodium 140 (136-145) mmol/L Potassium 4.2 (3.5-5.1) mmol/L Chloride 103 (98-107) mmol/L Carbon Dioxide 32 (21-32) mmol/L Anion Gap 5 (3-11) BUN 17 (6-23) mg/dl Creatinine 1.26 (0.6-1.4) mg/dl Est Cr Clr Drug Dosing 51.3 ml/min Est GFR ( Amer) 65.6 ml/min Est GFR (Non-Af Amer) 56.6 ml/min BUN/Creatinine Ratio 13.5 (10-20) Glucose 121 H (70-99(Fasting)) mg/dl Calcium 8.3 L (8.6-10.3) mg/dl Phosphorus 3.5 (2.5-4.9) mg/dl Magnesium 2.3 (1.7-2.4) mg/dl Total Bilirubin (0.2-1.0) mg/dl AST (13-39) U/L ALT (7-52) U/L Alkaline Phosphatase (34-104) U/L Troponin I High Sens (0-20) pg/ml B-Natriuretic Peptide (0-100) pg/ml Total Protein (6.0-8.3) gm/dl Albumin (3.4-5.0) gm/dl Globulin (2.5-4.0) gm/dl Albumin/Globulin Ratio (0.9-2) Urine Color Urine Appearance (Clear) Urine pH (4.5-7.5) Ur Specific [place] (1.000-1.030) Urine Protein (Negative) Urine Glucose (UA) (Negative) Urine Ketones (Negative) Urine Blood (Negative) Urine Nitrite (Negative) Urine Bilirubin (Negative) Urine Urobilinogen (Negative) Ur Leukocyte Esterase (Negative) Hepatitis C Ab (EIA) Pending Hep C Ab Signal/Cutoff Pending SARS-CoV-2, RNA, NAAT (NEGATIVE) 12/16/22 12/16/22 12/16/22 Range/Units 22:49 16:20 10:50 WBC (4.8-10.8) K/ul RBC (4.70-6.10) M/uL Hgb (14.0-18.0) g/dl Hct (42.0-52.0) % MCV (80.0-100.0) fL MCH (25.0-34.0) pg MCHC (32.0-36.0) g/dL RDW Std Deviation (36.4-46.3) fL RDW Coeff of Long (11.5-14.5) % Plt Count (130-400) K/uL MPV (9.4-12.4) fL Immature Gran % (Auto) % Neut % (Auto) % Lymph % (Auto) % Elbert % (Auto) % Eos % (Auto) % Baso % (Auto) % Neut # (Auto) (1.40-6.50) K/uL Lymph # (Auto) (1.2-3.4) K/uL Elbert # (Auto) (0.11-0.59) K/uL Eos # (Auto) (0-0.50) K/uL Baso # (Auto) (0-0.2) K/uL Immature Gran # (Auto) (0.01-0.20) K/uL PT (9.0-12.0) Seconds INR (0.9-1.1) APTT (21.0-31.0) Seconds PTT Ratio Sodium (136-145) mmol/L Potassium (3.5-5.1) mmol/L Chloride (98-107) mmol/L Carbon Dioxide (21-32) mmol/L Anion Gap (3-11) BUN (6-23) mg/dl Creatinine (0.6-1.4) mg/dl Est Cr Clr Drug Dosing ml/min Est GFR ( Amer) ml/min Est GFR (Non-Af Amer) ml/min BUN/Creatinine Ratio (10-20) Glucose (70-99(Fasting)) mg/dl Calcium (8.6-10.3) mg/dl Phosphorus (2.5-4.9) mg/dl Magnesium (1.7-2.4) mg/dl Total Bilirubin (0.2-1.0) mg/dl AST (13-39) U/L ALT (7-52) U/L Alkaline Phosphatase (34-104) U/L Troponin I High Sens 45.3 H 52.8 H* (0-20) pg/ml B-Natriuretic Peptide (0-100) pg/ml Total Protein (6.0-8.3) gm/dl Albumin (3.4-5.0) gm/dl Globulin (2.5-4.0) gm/dl Albumin/Globulin Ratio (0.9-2) Urine Color Yellow Urine Appearance Clear (Clear) Urine pH 6.5 (4.5-7.5) Ur Specific [place] 1.008 (1.000-1.030) Urine Protein Negative (Negative) Urine Glucose (UA) Negative (Negative) Urine Ketones Negative (Negative) Urine Blood Negative (Negative) Urine Nitrite Negative (Negative) Urine Bilirubin Negative (Negative) Urine Urobilinogen Negative (Negative) Ur Leukocyte Esterase Negative (Negative) Hepatitis C Ab (EIA) Hep C Ab Signal/Cutoff SARS-CoV-2, RNA, NAAT (NEGATIVE) 12/16/22 12/16/22 12/16/22 Range/Units 09:48 09:48 09:48 WBC (4.8-10.8) K/ul RBC (4.70-6.10) M/uL Hgb (14.0-18.0) g/dl Hct (42.0-52.0) % MCV (80.0-100.0) fL MCH (25.0-34.0) pg MCHC (32.0-36.0) g/dL RDW Std Deviation (36.4-46.3) fL RDW Coeff of Long (11.5-14.5) % Plt Count (130-400) K/uL MPV (9.4-12.4) fL Immature Gran % (Auto) % Neut % (Auto) % Lymph % (Auto) % Elbert % (Auto) % Eos % (Auto) % Baso % (Auto) % Neut # (Auto) (1.40-6.50) K/uL Lymph # (Auto) (1.2-3.4) K/uL Elbert # (Auto) (0.11-0.59) K/uL Eos # (Auto) (0-0.50) K/uL Baso # (Auto) (0-0.2) K/uL Immature Gran # (Auto) (0.01-0.20) K/uL PT (9.0-12.0) Seconds INR (0.9-1.1) APTT (21.0-31.0) Seconds PTT Ratio Sodium 139 (136-145) mmol/L Potassium 4.6 (3.5-5.1) mmol/L Chloride 105 (98-107) mmol/L Carbon Dioxide 27 (21-32) mmol/L Anion Gap 7 (3-11) BUN 18 (6-23) mg/dl Creatinine 1.12 (0.6-1.4) mg/dl Est Cr Clr Drug Dosing 65.8 ml/min Est GFR ( Amer) 75.7 ml/min Est GFR (Non-Af Amer) 65.3 ml/min BUN/Creatinine Ratio 16.1 (10-20) Glucose 142 H (70-99(Fasting)) mg/dl Calcium 8.5 L (8.6-10.3) mg/dl Phosphorus (2.5-4.9) mg/dl Magnesium 2.3 (1.7-2.4) mg/dl Total Bilirubin 1.0 (0.2-1.0) mg/dl AST 20 (13-39) U/L ALT 30 (7-52) U/L Alkaline Phosphatase 44 (34-104) U/L Troponin I High Sens 48.2 H (0-20) pg/ml B-Natriuretic Peptide 1054 H (0-100) pg/ml Total Protein 6.4 (6.0-8.3) gm/dl Albumin 3.9 (3.4-5.0) gm/dl Globulin 2.5 (2.5-4.0) gm/dl Albumin/Globulin Ratio 1.6 (0.9-2) Urine Color Urine Appearance (Clear) Urine pH (4.5-7.5) Ur Specific [place] (1.000-1.030) Urine Protein (Negative) Urine Glucose (UA) (Negative) Urine Ketones (Negative) Urine Blood (Negative) Urine Nitrite (Negative) Urine Bilirubin (Negative) Urine Urobilinogen (Negative) Ur Leukocyte Esterase (Negative) Hepatitis C Ab (EIA) Hep C Ab Signal/Cutoff SARS-CoV-2, RNA, NAAT NEGATIVE (NEGATIVE) 12/16/22 12/16/22 Range/Units 09:48 09:48 WBC 6.18 (4.8-10.8) K/ul RBC 3.83 L (4.70-6.10) M/uL Hgb 12.0 L (14.0-18.0) g/dl Hct 35.6 L (42.0-52.0) % MCV 93.0 (80.0-100.0) fL MCH 31.3 (25.0-34.0) pg MCHC 33.7 (32.0-36.0) g/dL RDW Std Deviation 50.3 H (36.4-46.3) fL RDW Coeff of Long 14.6 H (11.5-14.5) % Plt Count 120 L (130-400) K/uL MPV 10.8 (9.4-12.4) fL Immature Gran % (Auto) 0.3 % Neut % (Auto) 82.4 % Lymph % (Auto) 6.8 % Elbert % (Auto) 7.6 % Eos % (Auto) 2.4 % Baso % (Auto) 0.5 % Neut # (Auto) 5.09 (1.40-6.50) K/uL Lymph # (Auto) 0.42 L (1.2-3.4) K/uL Elbert # (Auto) 0.47 (0.11-0.59) K/uL Eos # (Auto) 0.15 (0-0.50) K/uL Baso # (Auto) 0.03 (0-0.2) K/uL Immature Gran # (Auto) 0.02 (0.01-0.20) K/uL PT 10.9 (9.0-12.0) Seconds INR 1.0 (0.9-1.1) APTT 28.5 (21.0-31.0) Seconds PTT Ratio 1.0 Sodium (136-145) mmol/L Potassium (3.5-5.1) mmol/L Chloride (98-107) mmol/L Carbon Dioxide (21-32) mmol/L Anion Gap (3-11) BUN (6-23) mg/dl Creatinine (0.6-1.4) mg/dl Est Cr Clr Drug Dosing ml/min Est GFR ( Amer) ml/min Est GFR (Non-Af Amer) ml/min BUN/Creatinine Ratio (10-20) Glucose (70-99(Fasting)) mg/dl Calcium (8.6-10.3) mg/dl Phosphorus (2.5-4.9) mg/dl Magnesium (1.7-2.4) mg/dl Total Bilirubin (0.2-1.0) mg/dl AST (13-39) U/L ALT (7-52) U/L Alkaline Phosphatase (34-104) U/L Troponin I High Sens (0-20) pg/ml B-Natriuretic Peptide (0-100) pg/ml Total Protein (6.0-8.3) gm/dl Albumin (3.4-5.0) gm/dl Globulin (2.5-4.0) gm/dl Albumin/Globulin Ratio (0.9-2) Urine Color Urine Appearance (Clear) Urine pH (4.5-7.5) Ur Specific [place] (1.000-1.030) Urine Protein (Negative) Urine Glucose (UA) (Negative) Urine Ketones (Negative) Urine Blood (Negative) Urine Nitrite (Negative) Urine Bilirubin (Negative) Urine Urobilinogen (Negative) Ur Leukocyte Esterase (Negative) Hepatitis C Ab (EIA) Hep C Ab Signal/Cutoff SARS-CoV-2, RNA, NAAT (NEGATIVE) Medications Administered Current Inpatient Medications Acetaminophen (Acetaminophen 325 Mg Tab) 650 mg PO Q4H PRN PRN Reason: Pain or Fever Stop: 01/15/23 14:59 Allopurinol (Allopurinol 300 Mg Tab) 150 mg PO QAM [facility] Stop: 01/16/23 08:59 Allopurinol (Allopurinol 300 Mg Tab) 300 mg PO QPM [facility] Stop: 01/15/23 20:59 Last Admin: 12/16/22 22:08 Dose: 300 mg Amlodipine Besylate ([facility] 5 Mg Tab) [facility]: 01/16/23 08:59 Aspirin (Aspirin 81 Mg Ectab) 81 mg PO BID [facility] Stop: 01/15/23 20:59 Last Admin: 12/16/22 22:09 Dose: 81 mg Clopidogrel Bisulfate (Clopidogrel Bisulfate 75 Mg Tab) [facility]: 01/16/23 08:59 Cyanocobalamin (Cyanocobalamin (B-12) 500 Mcg Tablet) 1,000 mcg PO DAILY [facility] Stop: 01/16/23 08:59 Docusate Sodium (Docusate Sodium 100 Mg Cap) 100 mg PO BID [facility] Stop: 01/15/23 20:59 Last Admin: 12/16/22 22:09 Dose: 100 mg Famotidine (Famotidine 20 Mg Tab) 20 mg PO BID PRN PRN Reason: Acid Reflux Stop: 01/15/23 14:59 Furosemide (Furosemide 40 Mg/4 Ml Vial) 40 mg IV DAILY [facility] Stop: 01/16/23 08:59 Metoprolol Succinate (Metoprolol Succ 50mg Ext Rel Tab) 50 mg PO QAM [facility] Stop: 01/16/23 08:59 Miscellaneous (Alirocumab~Order Awaiting Action) 1 each N/A QS [facility] Stop: 01/15/23 15:59 Last Admin: 12/17/22 08:46 Dose: Not Given Miscellaneous (Remove Nitro-Dur Patch) 1 each N/A DAILY@2100 [facility] Stop: 01/15/23 20:59 Last Admin: 12/16/22 22:13 Dose: 1 each Nitroglycerin (Nitroglycerin 0.6 Mg/Hr Patch) 1 patch TD DAILY [facility] Stop: 01/16/23 08:59 Pantoprazole Sodium (Pantoprazole 40 Mg Tab) 40 mg PO BID [facility] Stop: 01/15/23 20:59 Last Admin: 12/16/22 22:10 Dose: 40 mg Polyethylene Glycol (Polyethylene (Miralax) 17 Gm Pack) 17 gm PO DAILY PRN PRN Reason: Constipation Stop: 01/15/23 12:29 Pyridoxine HCl (Pyridoxine Hcl 50 Mg Tab) 100 mg PO QAM [facility] Stop: 01/16/23 08:59 Ranolazine (Ranolazine 500 Mg Er Tab) 500 mg PO BID [facility] Stop: 01/15/23 20:59 Last Admin: 12/16/22 22:09 Dose: 500 mg Sertraline HCl (Sertraline Hcl 50 Mg Tablet) 150 mg PO DAILY [facility] Stop: 01/16/23 08:59 Terazosin HCl (Terazosin Hcl 1 Mg Cap) 2 mg PO HS [facility] Stop: 01/15/23 20:59 Last Admin: 12/16/22 22:08 Dose: 2 mg Vitamin D (Cholecalciferol 5,000 Units 125 Mcg Tab) 5,000 units PO QAM [facility] Stop: 01/16/23 08:59
[2022-12-17] MEDS: FUROSEMIDE 40 MG/4 ML VIAL IV SCH (08:57)
[2022-12-17] MEDS ORDERED: amLODIPine BESYLATE 5 MG TAB PO SCH (09:00)
--- NOTE | 2022-12-17 12:15 | Cardiology Progress Note ---
Date of Service December 17, 2022 Assessment & Plan (1) Acute heart failure with reduced ejection fraction and diastolic dysfu nction: (2) CAD (coronary artery disease), [place] coronary artery: (3) LBBB (left bundle branch block): Plan 72-year-old patient presents with acute decompensated heart failure. Improving with 2 doses of intravenous furosemide. Recommend additional dose of IV Lasix this afternoon. Follow daily weight, GFR, fluid balance, and electrolytes. Repeat chest x-ray in a.m. Hold amlodipine. Add Entresto in a.m. pending review of lab studies. Optimize evidence-based heart failure therapy as tolerated. Continue dual antiplatelet therapy uninterrupted in light of recent percutaneous intervention as described above. Admission and Anticipated Discharge Date Admission Date: December 16, 2022 Subjective Patient seen and examined at the bedside. Fluid balance negative 1.1 Liters overnight. Respiratory status improved. Less abdominal bloating. Slept well last night. Notes mild, intermittent chest discomfort described as a pinching sensation. Telemetry reveals sinus rhythm with a left bundle branch block. Heart rate 60-70 bpm. Patient offers no other concerns/complaints. Review of Systems Review of Systems: All systems reviewed & are unremarkable except as noted in Subjective Physical Exam Constitutional: well nourished; no acute distress Respiratory: normal respiratory effort; no respiratory distress, no labored breathing and no retractions Auscultation: no rales, no rhonchi and no wheezes Cardiovascular: Rate/Rhythm: regular rate and regular rhythm Heart Sounds: normal S1 and normal S2; no murmur and no cardiac rub Vessels: radial pulses present; no JVD and no carotid bruit Extremities: no edema Gastrointestinal (Abdomen): Inspection/Auscultation: abdomen normal to inspection, + abdomen distended and normal bowel sounds Percussion/Palpation: abdomen soft; abdomen nontender, no guarding and abdomen not rigid Neurologic: CN's II-XI intact bilaterally and moves all extremities; no focal motor deficits Psychiatric: A+Ox3, euthymic affect Results & Data Vital Signs (Past 12 Hours) Vital Signs Temp Pulse Pulse Resp BP BP Pulse Ox 12/17/22 11:13 37.0 C 66 18 111/69 94 12/17/22 10:05 12/17/22 07:23 36.9 C 60 20 108/72 96 05/11/23 07:13 64 12/17/22 03:53 36.7 C 61 18 122/80 95 O2 Del Method O2 Flow Rate 12/17/22 11:13 Nasal Cannula 2 12/17/22 10:05 Nasal Cannula 2 12/17/22 07:23 Nasal Cannula 2 12/17/22 07:13 12/17/22 03:53 Nasal Cannula 2
[2022-12-17] MEDS ORDERED: ALIROCUMAB 150 MG SQ SCH (15:00)
[2022-12-17] MEDS ORDERED: FUROSEMIDE 40 MG/4 ML VIAL IV ONE (17:00)
[2022-12-17] MEDS: TERAZOSIN HCL 1 MG CAP PO SCH (22:14)
--- NOTE | 2022-12-18 05:38 | Electrocardiogram Report ---
Test Reason : Blood Pressure : / mmHG Vent. Rate : 063 BPM Atrial Rate : 063 BPM P-R Int : 218 ms QRS Dur : 182 ms QT Int : 474 ms P-R-T Axes : 067 093 -80 degrees QTc Int : 485 ms Sinus rhythm with 1st degree A-V block Rightward axis Left bundle branch block Abnormal ECG When compared with ECG of 16-DEC-2022 09:19, No significant change was found Confirmed by Oswaldo Badillo ([id number]) on 12/18/2022 5:37:36 AM Referred By: REFERRED SELF Confirmed By:Oswaldo Badillo
[2022-12-18 06:21] LABS: Hematocrit (blood only) 35.2 % (42.0-52.0); Hemoglobin 11.9 g/dl (14.0-18.0); Mean Corpuscular Hemoglobin 30.4 pg (25.0-34.0); Mean Corpuscular Hgb Conc 33.8 g/dL (32.0-36.0); Mean Platelet Volume 10.4 fL (9.4-12.4); Platelet Count 125 K/uL (130-400); RDW Coefficient of Variation 14.1 % (11.5-14.5); RDW Standard Deviation 46.8 fL (36.4-46.3); Red Blood Count 3.91 M/uL (4.70-6.10); White Blood Count 4.56 K/ul (4.8-10.8)
[2022-12-18 06:35] LABS: BUN Creatinine Ratio 17.4 (10-20); Calcium 8.6 mg/dl (8.6-10.3); Creatinine Clr Calc Pharmacy 44.9 ml/min; Est GFR (African American) 55.8 ml/min; Est GFR (Non-African American) 48.2 ml/min; Magnesium 2.3 mg/dl (1.7-2.4); Phosphorus 3.9 mg/dl (2.5-4.9); Potassium 4.3 mmol/L (3.5-5.1)
--- NOTE | 2022-12-18 07:19 | XRay Report ---
XR chest 1V portable HISTORY: 72 years-old Male CHF acute shortness of breath with congestive heart failure COMPARISON: 12/16/2022 TECHNIQUE: AP view of the chest FINDINGS: Cardiac silhouette is enlarged. Pulmonary vascular congestion with slightly improved interstitial coa rsening. No pneumothorax. Small pleural effusions with bibasilar opacities, more conspicuous on the r ight compared to prior. Healed chronic right-sided rib fractures. Degenerative changes of the shoulde rs and spine. IMPRESSION: 1. Cardiomegaly with stable to slightly improved pulmonary edema. 2. Small pleural effusions again noted. 3. Asymmetric right lung base opacities may represent atelectasis versus developing pneumonia. ACT 112: Negative or not required by law. The above report was generated using voice recognition software. It may contain grammatical, syntax o r spelling errors. Electronically signed by: Venkatesh Mera M.D. 12/18/2022 7:17 AM
[2022-12-18] MEDS: amLODIPine BESYLATE 5 MG TAB PO SCH (09:18)
[2022-12-18] MEDS: PANTOprazole 40 MG TAB PO SCH ×2 (09:19→20:21)
[2022-12-18] MEDS: allopurinoL 300 MG TAB PO SCH ×2 (09:19→20:23)
[2022-12-18] MEDS: ASPIRIN 81 MG ECTAB PO SCH ×2 (09:19→20:23)
[2022-12-18] MEDS: RANOLAZINE 500 MG ER TAB PO SCH ×2 (09:19→20:24)
[2022-12-18] MEDS: CLOPIDOGREL BISULFATE 75 MG TAB PO SCH (09:20)
[2022-12-18] MEDS: CYANOCOBALAMIN (B-12) 500 MCG TABLET PO SCH (09:20)
[2022-12-18] MEDS: CHOLECALCIFEROL 5,000 UNITS 125 MCG TAB PO SCH (09:20)
[2022-12-18] MEDS: METOPROLOL SUCC 50MG EXT REL TAB PO SCH (09:20)
[2022-12-18] MEDS: SERTRALINE HCL 50 MG TABLET PO SCH (09:21)
[2022-12-18] MEDS: NITROGLYCERIN 0.6 MG/HR PATCH TD SCH (09:21)
[2022-12-18] MEDS: PYRIDOXINE HCL 50 MG TAB PO SCH (09:21)
[2022-12-18] MEDS: FUROSEMIDE 40 MG/4 ML VIAL IV SCH (09:23)
[2022-12-18] MEDS: DOCUSATE SODIUM 100 MG CAP PO SCH ×2 (09:26→20:25)
--- NOTE | 2022-12-18 09:39 | Hospitalist Progress Note ---
Date of Service December 18, 2022 Assessment & Plan (1) CHF exacerbation: Plan: Acute CHF Acute heart failure with reduced ejection fraction and diastolic dysfunction Progressive symptoms of volume overload over last few days including +PND, + orthopnea, exercise intolerance, and chest discomfort. + Pulmonary edema on CXR and an elevated BNP. Trop mildly elevated and EKG reveals no acute ischemic changes. Physical exam on admission - w/ +crackles on auscultation and abdominal distension. Monitor on telemetry. Echo obtained. LV systolic function is mildly reduced. EF 45 to 50%. Septal motion is consistent with conduction abnormality. There is a moderate sized septal, inferior, and posterior wall motion abnormality with hypokinesis to akinesis of the segments. Left atrium is moderately dilated. Aortic valve sclerosis mild, without significant aortic valvular stenosis. Mild aortic regurg. There is moderate mitral regurg. There is mild tricuspid regurg. The estimated systolic pulmonary pressure is 46 mmHg. Cardiology consulted - Continued w/ diuresis with IV Lasix. Repeated CXR today - pulm. edema improved, R lung base infiltrate. Procal negative. Augmentin started. Pt still on 2 L of suppl. O2, cont. to closely monitor. monitor I/Os Replete electrolytes PT/OT consultation. (2) CAD (coronary artery disease): Plan: s/p CABG in 1992 and most recently pt came to [facility] and underwent cardiac catheterization where there was concern for two venous grafts from his bypass that had become occluded as well as an LAD stenosis where the graft was implanted. [place] [facility] [place] and underwent left heart cath with a drug-eluting stent to LAD on 11/24/2022. This was a left femoral artery access. He did have mild ROD with creatinine up to 1.6 which has resolved and was felt to be associated with contrast-induced nephropathy. Creatinine is back to baseline. Repeated echo (as above), trended trop, monitor on telemetry and cont current medical therapy including nitro, Toprol, ASA, Plavix, Ranexa and noted allergy to statins. Cardiology consulted and following. (3) Alcohol abuse: Plan: Drinks bourbon approximately 4 drinks TIW. Monitor closely for any withdrawal symptoms. This may be contributing to his heartburn issues, and will need to extension course counselor him to cut down on his drinking or stop altogether. (4) GERD (gastroesophageal reflux disease): Plan: chronic, stable. Cont PPI BID with Pepcid for breakthrough. (5) Gout: Plan: chronic, stable. Cont allopurinol. (6) Depression: Plan: chronic, stable. Cont sertraline per home regimen. Lovenox Full Dispo- PCU Admission and Anticipated Discharge Date Admission Date: December 16, 2022 Subjective Pt seen in follow up of acute CHF, hx of CAD, s/p cabg Currently sitting up in chair in NAD, on suppl. O2, 2L Patient reports feeling much better since admission, breathing easier Currently no chest pain. No fevers chills, no abdominal pain, no nausea vomiting. Says he has some cough, dry. Review of Systems Review of Systems: All systems reviewed & are unremarkable except as noted in Subjective Physical Exam Physical Exam: CONSTITUTIONAL: WNWD, in NAD, on suppl. O2, 2L via NC EYES: normal conjunctivae, no scleral icterus ENT: external ear and nose normal, MMM NECK: trachea midline RESPIRATORY: + mild basilar crackles, no wheezes, normal respiratory effort CARDIOVASCULAR: regular rate and rhythm, S1 and 2 heard without murmurs, gallops or rubs, no JVD, no peripheral edema CHEST: normal inspection of chest GASTROINTESTINAL: soft, obese, nontender, no guarding MUSCULOSKELETAL: head is normocephalic and atraumatic, moves extremities SKIN: warm and dry NEUROLOGIC: awake, alert, answers appropriately, normal speech, no tremor, moves extremities Results & Data Results & Data Vital Signs (Past 12 Hours) Vital Signs Temp Pulse Pulse Resp BP BP Pulse Ox 12/18/22 09:17 94/61 L 94 12/18/22 07:57 36.3 C L 58 L 18 120/77 94 12/18/22 03:28 36.6 C 59 L 18 117/70 91 12/17/22 23:08 61 12/18/22 01:04 12/17/22 23:00 36.8 C 59 L 18 121/74 95 O2 Del Method O2 Flow Rate 12/18/22 09:17 Room Air 12/18/22 07:57 Nasal Cannula 2 12/18/22 03:28 Nasal Cannula 2 12/17/22 23:08 12/18/22 01:04 Nasal Cannula 2 12/17/22 23:00 Nasal Cannula 2 Laboratory Results 12/18/22 12/18/22 Range/Units 05:27 05:27 WBC 4.56 L (4.8-10.8) K/ul RBC 3.91 L (4.70-6.10) M/uL Hgb 11.9 L (14.0-18.0) g/dl Hct 35.2 L (42.0-52.0) % MCV 90.0 (80.0-100.0) fL MCH 30.4 (25.0-34.0) pg MCHC 33.8 (32.0-36.0) g/dL RDW Std Deviation 46.8 H (36.4-46.3) fL RDW Coeff of Long 14.1 (11.5-14.5) % Plt Count 125 L (130-400) K/uL MPV 10.4 (9.4-12.4) fL Sodium 141 (136-145) mmol/L Potassium 4.3 (3.5-5.1) mmol/L Chloride 103 (98-107) mmol/L Carbon Dioxide 32 (21-32) mmol/L Anion Gap 6 (3-11) BUN 25 H (6-23) mg/dl Creatinine 1.44 H (0.6-1.4) mg/dl Est Cr Clr Drug Dosing 44.9 ml/min Est GFR ( Amer) 55.8 ml/min Est GFR (Non-Af Amer) 48.2 ml/min BUN/Creatinine Ratio 17.4 (10-20) Glucose 126 H (70-99(Fasting)) mg/dl Calcium 8.6 (8.6-10.3) mg/dl Phosphorus 3.9 (2.5-4.9) mg/dl Magnesium 2.3 (1.7-2.4) mg/dl Medications Administered Current Inpatient Medications Acetaminophen (Acetaminophen 325 Mg Tab) 650 mg PO Q4H PRN PRN Reason: Pain or Fever Stop: 01/15/23 14:59 Allopurinol (Allopurinol 300 Mg Tab) 150 mg PO QAM [facility] Stop: 01/16/23 08:59 Last Admin: 12/18/22 09:19 Dose: 150 mg Allopurinol (Allopurinol 300 Mg Tab) 300 mg PO QPM [facility] Stop: 01/15/23 20:59 Last Admin: 12/17/22 22:12 Dose: 300 mg Amlodipine Besylate (Amlodipine Besylate 5 Mg Tab) 5 mg PO QAM [facility] Stop: 01/16/23 08:59 Last Admin: 12/18/22 09:18 Dose: 5 mg Aspirin (Aspirin 81 Mg Ectab) 81 mg PO BID [facility] Stop: 01/15/23 20:59 Last Admin: 12/18/22 09:19 Dose: 81 mg Clopidogrel Bisulfate (Clopidogrel Bisulfate 75 Mg Tab) 75 mg PO QAM [facility] Stop: 01/16/23 08:59 Last Admin: 12/18/22 09:20 Dose: 75 mg Cyanocobalamin (Cyanocobalamin (B-12) 500 Mcg Tablet) 1,000 mcg PO DAILY [facility] Stop: 01/16/23 08:59 Last Admin: 12/18/22 09:20 Dose: 1,000 mcg Docusate Sodium (Docusate Sodium 100 Mg Cap) 100 mg PO BID [facility] Stop: 01/15/23 20:59 Last Admin: 12/18/22 09:26 Dose: Not Given Famotidine (Famotidine 20 Mg Tab) 20 mg PO BID PRN PRN Reason: Acid Reflux Stop: 01/15/23 14:59 Furosemide (Furosemide 40 Mg/4 Ml Vial) 40 mg IV DAILY [facility] Stop: 01/16/23 08:59 Last Admin: 12/18/22 09:23 Dose: 40 mg Metoprolol Succinate (Metoprolol Succ 50mg Ext Rel Tab) [facility] [place]: 01/16/23 08:59 Last Admin: 12/18/22 09:20 Dose: 50 mg Miscellaneous (Remove Nitro-Dur Patch) 1 each N/A DAILY@2100 [facility] Stop: 01/15/23 20:59 Last Admin: 12/17/22 22:16 Dose: 1 each Nitroglycerin (Nitroglycerin 0.6 Mg/Hr Patch) 1 patch TD DAILY [facility] Stop: 01/16/23 08:59 Last Admin: 12/18/22 09:21 Dose: 1 patch Alirocumab (Praluent ) 150 Mg~Non- Formulary Patient's Own Med 1 each SQ Q14D [facility] Stop: 01/16/23 14:59 Last Admin: 12/17/22 15:48 Dose: 150 mg Pantoprazole Sodium (Pantoprazole 40 Mg Tab) 40 mg PO BID [facility] Stop: 01/15/23 20:59 Last Admin: 12/18/22 09:19 Dose: 40 mg Polyethylene Glycol (Polyethylene (Miralax) 17 Gm Pack) 17 gm PO DAILY PRN PRN Reason: Constipation Stop: 01/15/23 12:29 Pyridoxine HCl (Pyridoxine Hcl 50 Mg Tab) 100 mg PO QAM [facility] Stop: 01/16/23 08:59 Last Admin: 12/18/22 09:21 Dose: 100 mg Ranolazine (Ranolazine 500 Mg Er Tab) 500 mg PO BID [facility] Stop: 01/15/23 20:59 Last Admin: 12/18/22 09:19 Dose: 500 mg Sertraline HCl (Sertraline Hcl 50 Mg Tablet) 150 mg PO DAILY [facility] Stop: 01/16/23 08:59 Last Admin: 12/18/22 09:21 Dose: 150 mg Terazosin HCl (Terazosin Hcl 1 Mg Cap) 2 mg PO HS [facility] Stop: 01/15/23 20:59 Last Admin: 12/17/22 22:14 Dose: 2 mg Vitamin D (Cholecalciferol 5,000 Units 125 Mcg Tab) 5,000 units PO QAM [facility] Stop: 01/16/23 08:59 Last Admin: 12/18/22 09:20 Dose: 5,000 units
--- NOTE | 2022-12-18 11:33 | Cardiology Progress Note ---
Date of Service December 18, 2022 Assessment & Plan (1) Acute heart failure with reduced ejection fraction and diastolic dysfu nction: (2) CAD (coronary artery disease), [place] coronary artery: (3) LBBB (left bundle branch block): (4) Acute on chronic renal insufficiency: Plan 72-year-old patient presents with acute decompensated heart failure. Volume status improved with IV furosemide. Lab studies this a.m. demonstrating mild azotemia. Recommend hold further IV diuretic therapy today. Monitor daily weight, GFR, fluid balance, and electrolytes. Repeat chest x-ray in a.m. X-ray demonstrating right lower lobe infiltrate. Antibiotic therapy initiated. Continue to hold amlodipine at this time. Consider addition of Entresto during pending review of lab studies. Optimize evidence-based heart failure therapy as tolerated. Continue dual antiplatelet therapy uninterrupted in light of recent percutaneous [place] [facility] Admission and Anticipated Discharge Date Admission Date: December 16, 2022 Subjective Patient seen and examined at the bedside. Respiratory status improved. Repeat x-ray demonstrating right lower lobe infiltrate concerning for infectious or inflammatory process. Patient denies cough, fever, or chills. No orthopnea or PND. No longer wearing supplemental oxygen. Creatinine trending upward this morning. Received dose of a.m. furosemide. Review of Systems Review of Systems: All systems reviewed & are unremarkable except as noted in Subjective Physical Exam Constitutional: well nourished; no acute distress Respiratory: normal respiratory effort; no respiratory distress, no labored breathing and no retractions Auscultation: no rales, no rhonchi and no wheezes Cardiovascular: Rate/Rhythm: regular rate and regular rhythm Heart Sounds: normal S1 and normal S2; no murmur and no cardiac rub Vessels: radial pulses present; no JVD and no carotid bruit Extremities: no edema Gastrointestinal (Abdomen): Inspection/Auscultation: abdomen normal to inspection and normal bowel sounds; abdomen not distended Percussion/Palpation: abdomen soft; abdomen nontender, no guarding and abdomen not rigid Neurologic: CN's II-XI intact bilaterally and moves all extremities; no focal motor deficits Psychiatric: A+Ox3, euthymic affect Results & Data Vital Signs (Past 12 Hours) Vital Signs Temp Pulse Pulse Resp BP BP Pulse Ox 12/18/22 06:02 61 12/18/22 11:05 12/18/22 09:17 94/61 L 94 12/18/22 07:57 36.3 C L 58 L 18 120/77 94 12/18/22 03:28 36.6 C 59 L 18 117/70 91 12/18/22 01:04 O2 Del Method O2 Flow Rate 12/18/22 06:02 12/18/22 11:05 Room Air 12/18/22 09:17 Room Air 12/18/22 07:57 Nasal Cannula 2 12/18/22 03:28 Nasal Cannula 2 12/18/22 01:04 Nasal Cannula 2 Laboratory Results CBC 12/18/22 Range/Units 05:27 WBC 4.56 L (4.8-10.8) K/ul RBC 3.91 L (4.70-6.10) M/uL Hgb 11.9 L (14.0-18.0) g/dl Hct 35.2 L (42.0-52.0) % Plt Count 125 L (130-400) K/uL Comprehensive Metabolic Panel 12/18/22 Range/Units 05:27 Sodium 141 (136-145) mmol/L Potassium 4.3 (3.5-5.1) mmol/L Chloride 103 (98-107) mmol/L Carbon Dioxide 32 (21-32) mmol/L BUN 25 H (6-23) mg/dl Creatinine 1.44 H (0.6-1.4) mg/dl Glucose 126 H (70-99(Fasting)) mg/dl Calcium 8.6 (8.6-10.3) mg/dl Intake and Output 12/17/22 12/18/22 12/18/22 22:59 06:59 14:59 Intake Total 640 / 1360 Output Total 1300 / 1301 Balance -660 / 59 Intake: Oral 640 / 1360 Output: Urine 1300 / 1300
[2022-12-18] MEDS: ADVANCED PROBIOTIC 1250 MG CAPSULE PO SCH (11:57)
[2022-12-18] MEDS: AMOXICILLIN/CLAVULANATE 875 MG TAB PO SCH (16:56)
[2022-12-18] MEDS: guaiFENesin 600 MG TABCR PO SCH (20:22)
[2022-12-18] MEDS: TERAZOSIN HCL 1 MG CAP PO SCH (20:24)
--- NOTE | 2022-12-19 06:35 | Electrocardiogram Report ---
Test Reason : Blood Pressure : / mmHG Vent. Rate : 062 BPM Atrial Rate : 062 BPM P-R Int : 222 ms QRS Dur : 184 ms QT Int : 486 ms P-R-T Axes : 066 084 -81 degrees QTc Int : 493 ms Sinus rhythm with 1st degree A-V block Left bundle branch block Abnormal ECG When compared with ECG of 17-DEC-2022 06:16, No significant change was found Confirmed by Oswaldo Badillo ([id number]) on 12/19/2022 6:35:37 AM Referred By: REFERRED SELF Confirmed By:Oswaldo Badillo
[2022-12-19] MEDS: SERTRALINE HCL 50 MG TABLET PO SCH (07:24)
[2022-12-19] MEDS: ASPIRIN 81 MG ECTAB PO SCH ×2 (07:24→21:42)
[2022-12-19] MEDS: allopurinoL 300 MG TAB PO SCH ×2 (07:25→21:41)
[2022-12-19] MEDS: amLODIPine BESYLATE 5 MG TAB PO SCH (07:26)
[2022-12-19] MEDS: PANTOprazole 40 MG TAB PO SCH ×2 (07:26→21:39)
[2022-12-19] MEDS: CLOPIDOGREL BISULFATE 75 MG TAB PO SCH (07:27)
[2022-12-19] MEDS: PYRIDOXINE HCL 50 MG TAB PO SCH (07:27)
[2022-12-19] MEDS: AMOXICILLIN/CLAVULANATE 875 MG TAB PO SCH ×2 (07:27→17:14)
[2022-12-19] MEDS: NITROGLYCERIN 0.6 MG/HR PATCH TD SCH (07:27)
[2022-12-19] MEDS: CYANOCOBALAMIN (B-12) 500 MCG TABLET PO SCH (07:28)
[2022-12-19] MEDS: ADVANCED PROBIOTIC 1250 MG CAPSULE PO SCH (07:28)
[2022-12-19] MEDS: CHOLECALCIFEROL 5,000 UNITS 125 MCG TAB PO SCH (07:28)
[2022-12-19] MEDS: METOPROLOL SUCC 50MG EXT REL TAB PO SCH (07:28)
[2022-12-19] MEDS: guaiFENesin 600 MG TABCR PO SCH ×2 (07:29→21:40)
[2022-12-19] MEDS: RANOLAZINE 500 MG ER TAB PO SCH ×2 (07:29→21:40)
[2022-12-19] MEDS: DOCUSATE SODIUM 100 MG CAP PO SCH ×2 (07:30→22:00)
[2022-12-19 08:02] LABS: BUN Creatinine Ratio 19.1 (10-20); Calcium 9.2 mg/dl (8.6-10.3); Creatinine Clr Calc Pharmacy 45.8 ml/min; Est GFR (African American) 57.3 ml/min; Est GFR (Non-African American) 49.4 ml/min; Magnesium 2.4 mg/dl (1.7-2.4); Phosphorus 3.9 mg/dl (2.5-4.9); Potassium 4.3 mmol/L (3.5-5.1)
--- NOTE | 2022-12-19 12:42 | Cardiology Progress Note ---
Date of Service December 19, 2022 Assessment & Plan (1) Acute heart failure with reduced ejection fraction and diastolic dysfu nction: (2) CAD (coronary artery disease), [place] coronary artery: (3) LBBB (left bundle branch block): (4) Acute on chronic renal insufficiency: Plan Continue to hold diuretics. We will add Entresto today and recheck labs in the morning. Admission and Anticipated Discharge Date Admission Date: December 16, 2022 Subjective The patient had an uneventful evening and his sister is visiting today. Review of Systems Review of Systems: Review of Systems: See HPI for pertinent positives. All other 10 point review of systems are negative. Physical Exam Physical Exam: General: no acute distress and stated age Head: normocephalic, no masses, lesions, tenderness or abnormalities Eyes: conjunctiva are pink and non-injected, sclera clear Neck: supple, no adenopathy, no bruits, normal jugular venous pulse, no hepatojugular reflux Chest: normal shape and normal respiratory effort Lungs: clear to auscultation and percussion Cardiac Exam: - regular rate & rhythm, no murmurs gallops or rubs - normal S1, normal S2 Pulses: 2(+) throughout Abdomen: abdomen soft, non-tender, no abnormal masses and no hepatosplenomegaly Musculoskeletal: no gait disturbance, no joint inflammation, no deforming arthritis Extremities: no edema and no cyanosis Neuro: grossly normal exam Results & Data Vital Signs (Past 12 Hours) Vital Signs Temp Pulse Resp BP Pulse Ox O2 Del Method 12/19/22 11:37 36.3 C L 64 20 144/67 H 94 Room Air 12/19/22 10:00 Room Air 12/19/22 07:58 36.4 C L 60 19 116/65 93 Room Air 12/19/22 03:41 36.8 C 70 18 121/72 95 Room Air Laboratory Results Laboratory Results - last 24 hr 12/19/22 07:08 Sodium 141 Potassium 4.3 Chloride 103 Carbon Dioxide 33 H Anion Gap 5 BUN 27 H Creatinine 1.41 H Est Cr Clr Drug Dosing 45.8 Est GFR ( Amer) 57.3 Est GFR (Non-Af Amer) 49.4 BUN/Creatinine Ratio 19.1 Glucose 119 H Calcium 9.2 Phosphorus 3.9 Magnesium 2.4 Medications Administered Current Inpatient Medications Acetaminophen (Acetaminophen 325 Mg Tab) 650 mg PO Q4H PRN PRN Reason: Pain or Fever Stop: 01/15/23 14:59 Allopurinol (Allopurinol 300 Mg Tab) 150 mg PO QAM [facility] Stop: 01/16/23 08:59 Last Admin: 12/19/22 07:25 Dose: 150 mg Allopurinol (Allopurinol 300 Mg Tab) 300 mg PO QPM [facility] Stop: 01/15/23 20:59 Last Admin: 12/18/22 20:23 Dose: 300 mg Amlodipine Besylate (Amlodipine Besylate 5 Mg Tab) 5 mg PO QAM [facility] Stop: 01/16/23 08:59 Last Admin: 12/19/22 07:26 Dose: 5 mg Amoxicillin/Clavulanate Potassium (Amoxicillin/Clavulanate 875 Mg Tab) 1 tab PO BIDM [facility] Stop: 12/25/22 16:59 Last Admin: 12/19/22 07:27 Dose: 1 tab Aspirin (Aspirin 81 Mg Ectab) 81 mg PO BID [facility] Stop: 01/15/23 20:59 Last Admin: 12/19/22 07:24 Dose: 81 mg Clopidogrel Bisulfate (Clopidogrel Bisulfate 75 Mg Tab) 75 mg PO QAM [facility] Stop: 01/16/23 08:59 Last Admin: 12/19/22 07:27 Dose: 75 mg Cyanocobalamin (Cyanocobalamin (B-12) 500 Mcg Tablet) 1,000 mcg PO DAILY [facility] Stop: 01/16/23 08:59 Last Admin: 12/19/22 07:28 Dose: 1,000 mcg Docusate Sodium (Docusate Sodium 100 Mg Cap) 100 mg PO BID [facility] Stop: 01/15/23 20:59 Last Admin: 12/19/22 07:30 Dose: 100 mg Famotidine (Famotidine 20 Mg Tab) 20 mg PO BID PRN PRN Reason: Acid Reflux Stop: 01/15/23 14:59 Furosemide (Furosemide 40 Mg/4 Ml Vial) 40 mg IV DAILY [facility] Stop: 01/16/23 08:59 Last Admin: 12/18/22 09:23 Dose: 40 mg Guaifenesin (Guaifenesin 600 Mg Tabcr) 600 mg PO Q12 [facility] Stop: 01/17/23 20:59 Last Admin: 12/19/22 07:29 Dose: 600 mg Lactobacillus Acidophilus (Advanced Probiotic 1250 Mg Capsule) 2 cap PO DAILY [facility] Stop: 01/17/23 10:14 Last Admin: 12/19/22 07:28 Dose: 2 cap Metoprolol Succinate (Metoprolol Succ 50mg Ext Rel Tab) 50 mg PO QAM [facility] Stop: 01/16/23 08:59 Last Admin: 12/19/22 07:28 Dose: 50 mg Miscellaneous (Remove Nitro-Dur Patch) 1 each N/A DAILY@2100 [facility] Stop: 01/15/23 20:59 Last Admin: 12/18/22 20:25 Dose: 1 each Nitroglycerin (Nitroglycerin 0.6 Mg/Hr Patch) 1 patch TD DAILY [facility] Stop: 01/16/23 08:59 Last Admin: 12/19/22 07:27 Dose: 1 patch Alirocumab (Praluent ) 150 Mg~Non- Formulary Patient's Own Med 1 each SQ Q14D [facility] Stop: 01/16/23 14:59 Last Admin: 12/17/22 15:48 Dose: 150 mg Pantoprazole Sodium (Pantoprazole 40 Mg Tab) 40 mg PO BID [facility] Stop: 01/15/23 20:59 Last Admin: 12/19/22 07:26 Dose: 40 mg Polyethylene Glycol (Polyethylene (Miralax) 17 Gm Pack) 17 gm PO DAILY PRN PRN Reason: Constipation Stop: 01/15/23 12:29 Pyridoxine HCl (Pyridoxine Hcl 50 Mg Tab) 100 mg PO QAM [facility] Stop: 01/16/23 08:59 Last Admin: 12/19/22 07:27 Dose: 100 mg Ranolazine (Ranolazine 500 Mg Er Tab) 500 mg PO BID [facility] Stop: 01/15/23 20:59 Last Admin: 12/19/22 07:29 Dose: 500 mg Sertraline HCl (Sertraline Hcl 50 Mg Tablet) 150 mg PO DAILY [facility] Stop: 01/16/23 08:59 Last Admin: 12/19/22 07:24 Dose: 150 mg Terazosin HCl (Terazosin Hcl 1 Mg Cap) 2 mg PO HS [facility] Stop: 01/15/23 20:59 Last Admin: 12/18/22 20:24 Dose: 2 mg Vitamin D (Cholecalciferol 5,000 Units 125 Mcg Tab) 5,000 units PO QAM [facility] Stop: 01/16/23 08:59 Last Admin: 12/19/22 07:28 Dose: 5,000 units
--- NOTE | 2022-12-19 12:48 | Hospitalist Progress Note ---
Date of Service December 19, 2022 Assessment & Plan (1) CHF exacerbation: Plan: Acute CHF Acute heart failure with reduced ejection fraction and diastolic dysfunction Progressive symptoms of volume overload over last few days including +PND, + orthopnea, exercise intolerance, and chest discomfort. + Pulmonary edema on CXR and an elevated BNP. Trop mildly elevated and EKG reveals no acute ischemic changes. Physical exam on admission - w/ +crackles on auscultation and abdominal distension. Monitor on telemetry. Echo obtained. LV systolic function is mildly reduced. EF 45 to 50%. Septal motion is consistent with conduction abnormality. There is a moderate sized septal, inferior, and posterior wall motion abnormality with hypokinesis to akinesis of the segments. Left atrium is moderately dilated. Aortic valve sclerosis mild, without significant aortic valvular stenosis. Mild aortic regurg. There is moderate mitral regurg. There is mild tricuspid regurg. The estimated systolic pulmonary pressure is 46 mmHg. Cardiology consulted - Continued w/ diuresis with IV Lasix. Repeated CXR - pulm. edema improved, R lung base infiltrate. Procal negative. Augmentin started. Pt still on 2 L of suppl. O2 at that time, cont. to closely monitor. 12/19 - Pt is on RA, feeling well overall. Some cough. Seen by cardiology, plan to start for Entresto. Cr 1.4 monitor I/Os Replete electrolytes PT/OT consultation. (2) CAD (coronary artery disease): Plan: s/p CABG in 1992 and most recently pt came to [facility] and underwent cardiac catheterization where there was concern for two venous grafts from his bypass that had become occluded as well as an LAD stenosis where the graft was implanted. He was transferred to [facility] for further management and underwent left heart cath with a drug-eluting stent to LAD on 11/24/2022. This was a left femoral artery access. He did have mild ROD with creatinine up to 1.6 which has resolved and was felt to be associated with contrast-induced nephropathy. Creatinine is back to baseline. Repeated echo (as above), trended trop, monitor on telemetry and cont current medical therapy including nitro, Toprol, ASA, Plavix, Ranexa and noted allergy to statins. Cardiology consulted and following. (3) Alcohol abuse: Plan: Drinks bourbon approximately 4 drinks TIW. Monitor closely for any withdrawal symptoms. This may be contributing to his heartburn issues, and will need to clinical mental health counselor him to cut down on his drinking or stop altogether. (4) GERD (gastroesophageal reflux disease): Plan: chronic, stable. Cont PPI BID with Pepcid for breakthrough. (5) Gout: Plan: chronic, stable. Cont allopurinol. (6) Depression: Plan: chronic, stable. Cont sertraline per home regimen. Lovenox Full Dispo- plan to return home likely tmrw Admission and Anticipated Discharge Date Admission Date: December 16, 2022 Subjective Pt seen in follow up of acute CHF, hx of CAD, s/p cabg Currently sitting up in chair in NAD, on RA Patient reports feeling much better since admission, breathing easier Currently no chest pain. No fevers chills, no abdominal pain, no nausea vomiting. Says he has some cough, mostly dry. Pt seen ambulating in the hallway. Review of Systems Review of Systems: All systems reviewed & are unremarkable except as noted in Subjective Physical Exam Physical Exam: CONSTITUTIONAL: WNWD, in NAD, on RA EYES: normal conjunctivae, no scleral icterus ENT: external ear and nose normal, MMM NECK:supple RESPIRATORY: + mild basilar crackles, no wheezes, normal respiratory effort CARDIOVASCULAR: regular rate and rhythm, S1 and 2 heard without murmurs,no peripheral edema CHEST: normal inspection of chest GASTROINTESTINAL: soft, obese, nontender, no guarding MUSCULOSKELETAL: head is normocephalic and atraumatic, moves extremities SKIN: warm and dry NEUROLOGIC: awake, alert, answers appropriately, normal speech, no tremor, moves extremities Results & Data Results & Data Vital Signs (Past 12 Hours) Vital Signs Temp Pulse Resp BP Pulse Ox O2 Del Method 12/19/22 11:37 36.3 C L 64 20 144/67 H 94 Room Air 12/19/22 10:00 Room Air 12/19/22 07:58 36.4 C L 60 19 116/65 93 Room Air 12/19/22 03:41 36.8 C 70 18 121/72 95 Room Air Laboratory Results 12/19/22 Range/Units 07:08 Sodium 141 (136-145) mmol/L Potassium 4.3 (3.5-5.1) mmol/L Chloride 103 (98-107) mmol/L Carbon Dioxide 33 H (21-32) mmol/L Anion Gap 5 (3-11) BUN 27 H (6-23) mg/dl Creatinine 1.41 H (0.6-1.4) mg/dl Est Cr Clr Drug Dosing 45.8 ml/min Est GFR ( Amer) 57.3 ml/min Est GFR (Non-Af Amer) 49.4 ml/min BUN/Creatinine Ratio 19.1 (10-20) Glucose 119 H (70-99(Fasting)) mg/dl Calcium 9.2 (8.6-10.3) mg/dl Phosphorus 3.9 (2.5-4.9) mg/dl Magnesium 2.4 (1.7-2.4) mg/dl Medications Administered Current Inpatient Medications Acetaminophen (Acetaminophen 325 Mg Tab) 650 mg PO Q4H PRN PRN Reason: Pain or Fever Stop: 01/15/23 14:59 Allopurinol (Allopurinol 300 Mg Tab) 150 mg PO QAM [facility] Stop: 01/16/23 08:59 Last Admin: 12/19/22 07:25 Dose: 150 mg Allopurinol (Allopurinol 300 Mg Tab) 300 mg PO QPM [facility] Stop: 01/15/23 20:59 Last Admin: 12/18/22 20:23 Dose: 300 mg Amlodipine Besylate (Amlodipine Besylate 5 Mg Tab) 5 mg PO QAM [facility] Stop: 01/16/23 08:59 Last Admin: 12/19/22 07:26 Dose: 5 mg Amoxicillin/Clavulanate Potassium (Amoxicillin/Clavulanate 875 Mg Tab) 1 tab PO BIDM [facility] Stop: 12/25/22 16:59 Last Admin: 12/19/22 07:27 Dose: 1 tab Aspirin (Aspirin 81 Mg Ectab) 81 mg PO BID [facility] Stop: 01/15/23 20:59 Last Admin: 12/19/22 07:24 Dose: 81 mg Clopidogrel Bisulfate (Clopidogrel Bisulfate 75 Mg Tab) 75 mg PO QAM [facility] Stop: 01/16/23 08:59 Last Admin: 12/19/22 07:27 Dose: 75 mg Cyanocobalamin (Cyanocobalamin (B-12) 500 Mcg Tablet) 1,000 mcg PO DAILY [facility] Stop: 01/16/23 08:59 Last Admin: 12/19/22 07:28 Dose: 1,000 mcg Docusate Sodium (Docusate Sodium 100 Mg Cap) 100 mg PO BID [facility] Stop: 01/15/23 20:59 Last Admin: 12/19/22 07:30 Dose: 100 mg Famotidine (Famotidine 20 Mg Tab) 20 mg PO BID PRN PRN Reason: Acid Reflux Stop: 01/15/23 14:59 Furosemide (Furosemide 40 Mg/4 Ml Vial) 40 mg IV DAILY [facility] Stop: 01/16/23 08:59 Last Admin: 12/18/22 09:23 Dose: 40 mg Guaifenesin (Guaifenesin 600 Mg Tabcr) 600 mg PO Q12 [facility] Stop: 01/17/23 20:59 Last Admin: 12/19/22 07:29 Dose: 600 mg Lactobacillus Acidophilus (Advanced Probiotic 1250 Mg Capsule) 2 cap PO DAILY [facility] Stop: 01/17/23 10:14 Last Admin: 12/19/22 07:28 Dose: 2 cap Metoprolol Succinate (Metoprolol Succ 50mg Ext Rel Tab) 50 mg PO QAM [facility] Stop: 01/16/23 08:59 Last Admin: 12/19/22 07:28 Dose: 50 mg Miscellaneous (Remove Nitro-Dur Patch) 1 each N/A DAILY@2100 [facility] Stop: 01/15/23 20:59 Last Admin: 12/18/22 20:25 Dose: 1 each Nitroglycerin (Nitroglycerin 0.6 Mg/Hr Patch) 1 patch TD DAILY [facility] Stop: 01/16/23 08:59 Last Admin: 12/19/22 07:27 Dose: 1 patch Alirocumab (Praluent ) 150 Mg~Non- Formulary Patient's Own Med 1 each SQ Q14D [facility] Stop: 01/16/23 14:59 Last Admin: 12/17/22 15:48 Dose: 150 mg Pantoprazole Sodium (Pantoprazole 40 Mg Tab) 40 mg PO BID [facility] Stop: 01/15/23 20:59 Last Admin: 12/19/22 07:26 Dose: 40 mg Polyethylene Glycol (Polyethylene (Miralax) 17 Gm Pack) 17 gm PO DAILY PRN PRN Reason: Constipation Stop: 01/15/23 12:29 Pyridoxine HCl (Pyridoxine Hcl 50 Mg Tab) 100 mg PO QAM [facility] Stop: 01/16/23 08:59 Last Admin: 12/19/22 07:27 Dose: 100 mg Ranolazine (Ranolazine 500 Mg Er Tab) 500 mg PO BID [facility] Stop: 01/15/23 20:59 Last Admin: 12/19/22 07:29 Dose: 500 mg Sacubitril/Valsartan (Valsartan/Sacubitril 26/24mg Tab) 1 tab PO BID [facility] Stop: 01/18/23 20:59 Sertraline HCl (Sertraline Hcl 50 Mg Tablet) 150 mg PO DAILY [facility] Stop: 01/16/23 08:59 Last Admin: 12/19/22 07:24 Dose: 150 mg Terazosin HCl (Terazosin Hcl 1 Mg Cap) 2 mg PO HS [facility] Stop: 01/15/23 20:59 Last Admin: 12/18/22 20:24 Dose: 2 mg Vitamin D (Cholecalciferol 5,000 Units 125 Mcg Tab) 5,000 units PO QAM [facility] Stop: 01/16/23 08:59 Last Admin: 12/19/22 07:28 Dose: 5,000 units
[2022-12-19] MEDS: TERAZOSIN HCL 1 MG CAP PO SCH (21:41)
[2022-12-19] MEDS: VALSARTAN/SACUBITRIL 26/24MG TAB PO SCH (21:44)
[2022-12-20] MEDS: guaiFENesin 600 MG TABCR PO SCH ×2 (08:06→20:03)
[2022-12-20] MEDS: RANOLAZINE 500 MG ER TAB PO SCH ×2 (08:06→20:03)
[2022-12-20] MEDS: AMOXICILLIN/CLAVULANATE 875 MG TAB PO SCH ×2 (08:06→16:55)
[2022-12-20] MEDS: ASPIRIN 81 MG ECTAB PO SCH ×2 (08:06→20:02)
[2022-12-20] MEDS: CYANOCOBALAMIN (B-12) 500 MCG TABLET PO SCH (08:06)
[2022-12-20] MEDS: CLOPIDOGREL BISULFATE 75 MG TAB PO SCH (08:06)
[2022-12-20] MEDS: ADVANCED PROBIOTIC 1250 MG CAPSULE PO SCH (08:06)
[2022-12-20] MEDS: NITROGLYCERIN 0.6 MG/HR PATCH TD SCH (08:07)
[2022-12-20] MEDS: PYRIDOXINE HCL 50 MG TAB PO SCH (08:07)
[2022-12-20] MEDS: CHOLECALCIFEROL 5,000 UNITS 125 MCG TAB PO SCH (08:07)
[2022-12-20] MEDS: METOPROLOL SUCC 50MG EXT REL TAB PO SCH (08:07)
[2022-12-20] MEDS: amLODIPine BESYLATE 5 MG TAB PO SCH (08:08)
[2022-12-20] MEDS: PANTOprazole 40 MG TAB PO SCH ×2 (08:08→20:03)
[2022-12-20] MEDS: VALSARTAN/SACUBITRIL 26/24MG TAB PO SCH ×2 (08:08→20:04)
[2022-12-20] MEDS: allopurinoL 300 MG TAB PO SCH ×2 (08:08→20:02)
[2022-12-20] MEDS: SERTRALINE HCL 50 MG TABLET PO SCH (08:08)
[2022-12-20] MEDS: DOCUSATE SODIUM 100 MG CAP PO SCH ×2 (08:09→20:09)
--- NOTE | 2022-12-20 08:11 | Hospitalist Progress Note ---
Date of Service December 20, 2022 Assessment & Plan (1) CHF exacerbation: Plan: Acute CHF Acute heart failure with reduced ejection fraction and diastolic dysfunction Progressive symptoms of volume overload over last few days including +PND, + orthopnea, exercise intolerance, and chest discomfort. + Pulmonary edema on CXR and an elevated BNP. Trop mildly elevated and EKG reveals no acute ischemic changes. Physical exam on admission - w/ +crackles on auscultation and abdominal distension. Monitor on telemetry. Echo obtained. LV systolic function is mildly reduced. EF 45 to 50%. Septal motion is consistent with conduction abnormality. There is a moderate sized septal, inferior, and posterior wall motion abnormality with hypokinesis to akinesis of the segments. Left atrium is moderately dilated. Aortic valve sclerosis mild, without significant aortic valvular stenosis. Mild aortic regurg. There is moderate mitral regurg. There is mild tricuspid regurg. The estimated systolic pulmonary pressure is 46 mmHg. Cardiology consulted - Continued w/ diuresis with IV Lasix. Repeated CXR - pulm. edema improved, R lung base infiltrate. Procal negative. Augmentin started. Pt still on 2 L of suppl. O2 at that time, cont. to closely monitor. 12/19 - Pt is on RA, feeling well overall. Some cough. Seen by cardiology, plan to start for Entresto. Cr 1.4 12/20 Pt is on RA. Started Entresto. Cr 1.3- reports some episodes of dizziness when standing up, seems to resolve quickly though monitor I/Os Replete electrolytes PT/OT consultation. (2) CAD (coronary artery disease): Plan: s/p CABG in 1992 and most recently pt came to [facility] and underwent cardiac catheterization where there was concern for two venous grafts from his bypass that had become occluded as well as an LAD stenosis where the graft was implanted. He was transferred to [facility] for further management and underwent left heart cath with a drug-eluting stent to LAD on 11/24/2022. This was a left femoral artery access. He did have mild ROD with creatinine up to 1.6 which has resolved and was felt to be associated with contrast-induced nephropathy. Creatinine is back to baseline. Repeated echo (as above), trended trop, monitor on telemetry and cont current medical therapy including nitro, Toprol, ASA, Plavix, Ranexa and noted allergy to statins. Cardiology consulted and following. (3) Alcohol abuse: Plan: Drinks bourbon approximately 4 drinks TIW. Monitor closely for any withdrawal symptoms. This may be contributing to his heartburn issues, and will need to assistant [employer] counsel him to cut down on his drinking or stop altogether. (4) GERD (gastroesophageal reflux disease): Plan: chronic, stable. Cont PPI BID with Pepcid for breakthrough. (5) Gout: Plan: chronic, stable. Cont allopurinol. (6) Depression: Plan: chronic, stable. Cont sertraline per home regimen. Lovenox Full Dispo- plan to return home likely tmrw Admission and Anticipated Discharge Date Admission Date: December 16, 2022 Subjective Pt seen in follow up of acute CHF, hx of CAD, s/p cabg Currently sitting up in chair in NAD, on RA Pt was started on Entresto yesterday. Says he feels little dizzy and lightheaded every time he stands up. Seems to resolve fairly quickly though. Overall reports feeling much better since admission, breathing easier Currently no chest pain. No fevers chills, no abdominal pain, no nausea vomiting. Review of Systems Review of Systems: All systems reviewed & are unremarkable except as noted in Subjective Physical Exam Physical Exam: CONSTITUTIONAL: WNWD, in NAD, on RA EYES: normal conjunctivae, no scleral icterus ENT: external ear and nose normal, MMM NECK:supple RESPIRATORY: + mild basilar crackles, no wheezes, normal respiratory effort CARDIOVASCULAR: regular rate and rhythm, S1 and 2 heard without murmurs,no peripheral edema CHEST: normal inspection of chest GASTROINTESTINAL: soft, obese, nontender, no guarding MUSCULOSKELETAL: head is normocephalic and atraumatic, moves extremities SKIN: warm and dry NEUROLOGIC: awake, alert, answers appropriately, normal speech, no tremor, moves extremities Results & Data Results & Data Vital Signs (Past 12 Hours) Vital Signs Temp Pulse Pulse Resp BP Pulse Ox O2 Del Method 12/19/22 22:09 64 12/20/22 04:45 36.5 C 61 18 124/87 97 Room Air 12/19/22 23:00 Room Air 12/19/22 22:01 36.4 C L 64 18 136/79 95 Room Air Laboratory Results 12/20/22 Range/Units 07:27 Sodium 141 (136-145) mmol/L Potassium 4.4 (3.5-5.1) mmol/L Chloride 106 (98-107) mmol/L Carbon Dioxide 30 (21-32) mmol/L Anion Gap 5 (3-11) BUN 25 H (6-23) mg/dl Creatinine 1.30 (0.6-1.4) mg/dl Est Cr Clr Drug Dosing 55.0 ml/min Est GFR ( Amer) 63.2 ml/min Est GFR (Non-Af Amer) 54.5 ml/min BUN/Creatinine Ratio 19.2 (10-20) Glucose 131 H (70-99(Fasting)) mg/dl Calcium 9.2 (8.6-10.3) mg/dl Phosphorus 3.7 (2.5-4.9) mg/dl Magnesium 2.4 (1.7-2.4) mg/dl Medications Administered Current Inpatient Medications Acetaminophen (Acetaminophen 325 Mg Tab) 650 mg PO Q4H PRN PRN Reason: Pain or Fever Stop: 01/15/23 14:59 Allopurinol ([facility]op[facility]ol 300 Mg Tab) [facility] [place] [facility] Stop: 01/16/23 08:59 Last Admin: 12/20/22 08:08 Dose: 150 mg Allopurinol (Allopurinol 300 Mg Tab) 300 mg PO QPM [facility] Stop: 01/15/23 20:59 Last Admin: 12/19/22 21:41 Dose: 300 mg Amlodipine Besylate (Amlodipine Besylate 5 Mg Tab) 5 mg PO QAM [facility] Stop: 01/16/23 08:59 Last Admin: 12/20/22 08:08 Dose: 5 mg Amoxicillin/Clavulanate Potassium (Amoxicillin/Clavulanate 875 Mg Tab) 1 tab PO BIDM [facility] Stop: 12/25/22 16:59 Last Admin: 12/20/22 08:06 Dose: 1 tab Aspirin (Aspirin 81 Mg Ectab) 81 mg PO BID [facility] Stop: 01/15/23 20:59 Last Admin: 12/20/22 08:06 Dose: 81 mg Clopidogrel Bisulfate (Clopidogrel Bisulfate 75 Mg Tab) 75 mg PO QAM [facility] Stop: 01/16/23 08:59 Last Admin: 12/20/22 08:06 Dose: 75 mg Cyanocobalamin (Cyanocobalamin (B-12) 500 Mcg Tablet) 1,000 mcg PO DAILY [facility] Stop: 01/16/23 08:59 Last Admin: 12/20/22 08:06 Dose: 1,000 mcg Docusate Sodium (Docusate Sodium 100 Mg Cap) 100 mg PO BID [facility] Stop: 01/15/23 20:59 Last Admin: 12/20/22 08:09 Dose: 100 mg Famotidine (Famotidine 20 Mg Tab) 20 mg PO BID PRN PRN Reason: Acid Reflux Stop: 01/15/23 14:59 Furosemide (Furosemide 40 Mg/4 Ml Vial) 40 mg IV DAILY [facility] Stop: 01/16/23 08:59 Last Admin: 12/18/22 09:23 Dose: 40 mg Guaifenesin (Guaifenesin 600 Mg Tabcr) 600 mg PO Q12 [facility] Stop: 01/17/23 20:59 Last Admin: 12/20/22 08:06 Dose: 600 mg Lactobacillus Acidophilus (Advanced Probiotic 1250 Mg Capsule) 2 cap PO DAILY [facility] Stop: 01/17/23 10:14 Last Admin: 12/20/22 08:06 Dose: 2 cap Metoprolol Succinate (Metoprolol Succ 50mg Ext Rel Tab) 50 mg PO QAM [facility] Stop: 01/16/23 08:59 Last Admin: 12/20/22 08:07 Dose: 50 mg Miscellaneous (Remove Nitro-Dur Patch) 1 each N/A DAILY@2100 [facility] Stop: 01/15/23 20:59 Last Admin: 12/19/22 21:42 Dose: 1 each Nitroglycerin (Nitroglycerin 0.6 Mg/Hr Patch) 1 patch TD DAILY [facility] Stop: 01/16/23 08:59 Last Admin: 12/20/22 08:07 Dose: 1 patch Alirocumab (Praluent ) 150 Mg~Non- Formulary Patient's Own Med 1 each SQ Q14D [facility] Stop: 01/16/23 14:59 Last Admin: 12/17/22 15:48 Dose: 150 mg Pantoprazole Sodium (Pantoprazole 40 Mg Tab) 40 mg PO BID [facility] Stop: 01/15/23 20:59 Last Admin: 12/20/22 08:08 Dose: 40 mg Polyethylene Glycol (Polyethylene (Miralax) 17 Gm Pack) 17 gm PO DAILY PRN PRN Reason: Constipation Stop: 01/15/23 12:29 Pyridoxine HCl (Pyridoxine Hcl 50 Mg Tab) 100 mg PO QAM [facility] Stop: 01/16/23 08:59 Last Admin: 12/20/22 08:07 Dose: 100 mg Ranolazine (Ranolazine 500 Mg Er Tab) 500 mg PO BID [facility] Stop: 01/15/23 20:59 Last Admin: 12/20/22 08:06 Dose: 500 mg Sacubitril/Valsartan (Valsartan/Sacubitril 26/24mg Tab) 1 tab PO BID [facility] Stop: 01/18/23 20:59 Last Admin: 12/20/22 08:08 Dose: 1 tab Sertraline HCl (Sertraline Hcl 50 Mg Tablet) 150 mg PO DAILY [facility] Stop: 01/16/23 08:59 Last Admin: 12/20/22 08:08 Dose: 150 mg Terazosin HCl (Terazosin Hcl 1 Mg Cap) 2 mg PO HS [facility] Stop: 01/15/23 20:59 Last Admin: 12/19/22 21:41 Dose: 2 mg Vitamin D (Cholecalciferol 5,000 Units 125 Mcg Tab) 5,000 units PO QAM [facility] Stop: 01/16/23 08:59 Last Admin: 12/20/22 08:07 Dose: 5,000 units
[2022-12-20 08:34] LABS: BUN Creatinine Ratio 19.2 (10-20); Calcium 9.2 mg/dl (8.6-10.3); Est GFR (African American) 63.2 ml/min; Est GFR (Non-African American) 54.5 ml/min; Magnesium 2.4 mg/dl (1.7-2.4); Phosphorus 3.7 mg/dl (2.5-4.9); Potassium 4.4 mmol/L (3.5-5.1)
--- NOTE | 2022-12-20 12:21 | Cardiology Progress Note ---
Date of Service December 20, 2022 Assessment & Plan (1) Acute heart failure with reduced ejection fraction and diastolic dysfu nction: (2) CAD (coronary artery disease), [place] coronary artery: (3) LBBB (left bundle branch block): (4) Acute on chronic renal insufficiency: Plan The patient is currently not in heart failure. I started Entresto yesterday. I am uncertain as to whether that has contributed to the patient's dizziness but is mention his blood pressure is adequate. I think we should keep him on telemetry for another day and reassess tomorrow. Admission and Anticipated Discharge Date Admission Date: December 16, 2022 Subjective The patient states that he is little dizzy today. No syncope or presyncope. Blood pressure is adequate. He states he is usually a little dizzy when he first stands but today may be a little worse. Review of Systems Review of Systems: Review of Systems: See HPI for pertinent positives. All other 10 point review of systems are negative. Physical Exam Physical Exam: General: no acute distress and stated age Head: normocephalic, no masses, lesions, tenderness or abnormalities Eyes: conjunctiva are pink and non-injected, sclera clear Neck: supple, no adenopathy, no bruits, normal jugular venous pulse, no hepatojugular reflux Chest: normal shape and normal respiratory effort Lungs: clear to auscultation and percussion Cardiac Exam: - regular rate & rhythm, no murmurs gallops or rubs - normal S1, normal S2 Pulses: 2(+) throughout Abdomen: abdomen soft, non-tender, no abnormal masses and no hepatosplenomegaly Musculoskeletal: no gait disturbance, no joint inflammation, no deforming arthritis Extremities: no edema and no cyanosis Neuro: grossly normal exam Results & Data Vital Signs (Past 12 Hours) Vital Signs Temp Pulse Pulse Resp BP Pulse Ox O2 Del Method 12/20/22 08:00 61 12/20/22 07:50 36.6 C 61 18 126/79 95 Room Air 12/20/22 04:45 36.5 C 61 18 124/87 97 Room Air Laboratory Results Laboratory Results - last 24 hr 12/20/22 07:27 Sodium 141 Potassium 4.4 Chloride 106 Carbon Dioxide 30 Anion Gap 5 BUN 25 H Creatinine 1.30 Est Cr Clr Drug Dosing 55.0 Est GFR ( Amer) 63.2 Est GFR (Non-Af Amer) 54.5 BUN/Creatinine Ratio 19.2 Glucose 131 H Calcium 9.2 Phosphorus 3.7 Magnesium 2.4 Medications Administered Current Inpatient Medications Acetaminophen (Acetaminophen 325 Mg Tab) 650 mg PO Q4H PRN PRN Reason: Pain or Fever Stop: 01/15/23 14:59 Allopurinol (Allopurinol 300 Mg Tab) 150 mg PO QAM [facility] Stop: 01/16/23 08:59 Last Admin: 12/20/22 08:08 Dose: 150 mg Allopurinol (Allopurinol 300 Mg Tab) 300 mg PO QPM [facility] Stop: 01/15/23 20:59 Last Admin: 12/19/22 21:41 Dose: 300 mg Amlodipine Besylate (Amlodipine Besylate 5 Mg Tab) 5 mg PO QAM [facility] Stop: 01/16/23 08:59 Last Admin: 12/20/22 08:08 Dose: 5 mg Amoxicillin/Clavulanate Potassium (Amoxicillin/Clavulanate 875 Mg Tab) 1 tab PO BIDM [facility] Stop: 12/25/22 16:59 Last Admin: 12/20/22 08:06 Dose: 1 tab Aspirin (Aspirin 81 Mg Ectab) 81 mg PO BID [facility] Stop: 01/15/23 20:59 Last Admin: 12/20/22 08:06 Dose: 81 mg Clopidogrel Bisulfate (Clopidogrel Bisulfate 75 Mg Tab) 75 mg PO QAM [facility] Stop: 01/16/23 08:59 Last Admin: 12/20/22 08:06 Dose: 75 mg Cyanocobalamin (Cyanocobalamin (B-12) 500 Mcg Tablet) 1,000 mcg PO DAILY [facility] Stop: 01/16/23 08:59 Last Admin: 12/20/22 08:06 Dose: 1,000 mcg Docusate Sodium (Docusate Sodium 100 Mg Cap) 100 mg PO BID [facility] Stop: 01/15/23 20:59 Last Admin: 12/20/22 08:09 Dose: 100 mg Famotidine (Famotidine 20 Mg Tab) 20 mg PO BID PRN PRN Reason: Acid Reflux Stop: 01/15/23 14:59 Guaifenesin (Guaifenesin 600 Mg Tabcr) 600 mg PO Q12 [facility] Stop: 01/17/23 20:59 Last Admin: 12/20/22 08:06 Dose: 600 mg Lactobacillus Acidophilus (Advanced Probiotic 1250 Mg Capsule) 2 cap PO DAILY [facility] Stop: 01/17/23 10:14 Last Admin: 12/20/22 08:06 Dose: 2 cap Metoprolol Succinate (Metoprolol Succ 50mg Ext Rel Tab) 50 mg PO QAM [facility] Stop: 01/16/23 08:59 Last Admin: 12/20/22 08:07 Dose: 50 mg Miscellaneous (Remove Nitro-Dur Patch) 1 each N/A DAILY@2100 [facility] Stop: 01/15/23 20:59 Last Admin: 12/19/22 21:42 Dose: 1 each Nitroglycerin (Nitroglycerin 0.6 Mg/Hr Patch) 1 patch TD DAILY [facility] Stop: 01/16/23 08:59 Last Admin: 12/20/22 08:07 Dose: 1 patch Alirocumab (Praluent ) 150 Mg~Non- Formulary Patient's Own Med 1 each SQ Q14D [facility] Stop: 01/16/23 14:59 Last Admin: 12/17/22 15:48 Dose: 150 mg Pantoprazole Sodium (Pantoprazole 40 Mg Tab) 40 mg PO BID [facility] Stop: 01/15/23 20:59 Last Admin: 12/20/22 08:08 Dose: 40 mg Polyethylene Glycol (Polyethylene (Miralax) 17 Gm Pack) 17 gm PO DAILY PRN PRN Reason: Constipation Stop: 01/15/23 12:29 Pyridoxine HCl (Pyridoxine Hcl 50 Mg Tab) 100 mg PO QAM [facility] Stop: 01/16/23 08:59 Last Admin: 12/20/22 08:07 Dose: 100 mg Ranolazine (Ranolazine 500 Mg Er Tab) 500 mg PO BID [facility] Stop: 01/15/23 20:59 Last Admin: 12/20/22 08:06 Dose: 500 mg Sacubitril/Valsartan (Valsartan/Sacubitril 26/24mg Tab) 1 tab PO BID [facility] Stop: 01/18/23 20:59 Last Admin: 12/20/22 08:08 Dose: 1 tab Sertraline HCl (Sertraline Hcl 50 Mg Tablet) 150 mg PO DAILY [facility] Stop: 01/16/23 08:59 Last Admin: 12/20/22 08:08 Dose: 150 mg Terazosin HCl (Terazosin Hcl 1 Mg Cap) 2 mg PO HS [facility] Stop: 01/15/23 20:59 Last Admin: 12/19/22 21:41 Dose: 2 mg Vitamin D (Cholecalciferol 5,000 Units 125 Mcg Tab) 5,000 units PO [facility] Stop: 01/16/23 08:59 Last Admin: 12/20/22 08:07 Dose: 5,000 units
[2022-12-20] MEDS: TERAZOSIN HCL 1 MG CAP PO SCH (20:04)
[2022-12-21] MEDS ORDERED: LR 15ML/HR IV SCH (06:00)
[2022-12-21] MEDS: PANTOprazole 40 MG TAB PO SCH (07:46)
[2022-12-21] MEDS: RANOLAZINE 500 MG ER TAB PO SCH (07:46)
[2022-12-21] MEDS: ASPIRIN 81 MG ECTAB PO SCH (07:46)
[2022-12-21] MEDS: guaiFENesin 600 MG TABCR PO SCH (07:46)
[2022-12-21] MEDS: SERTRALINE HCL 50 MG TABLET PO SCH (07:47)
[2022-12-21] MEDS: CLOPIDOGREL BISULFATE 75 MG TAB PO SCH (07:47)
[2022-12-21] MEDS: VALSARTAN/SACUBITRIL 26/24MG TAB PO SCH (07:47)
[2022-12-21] MEDS: ADVANCED PROBIOTIC 1250 MG CAPSULE PO SCH (07:47)
[2022-12-21] MEDS: allopurinoL 300 MG TAB PO SCH (07:48)
[2022-12-21] MEDS: PYRIDOXINE HCL 50 MG TAB PO SCH (07:49)
[2022-12-21] MEDS: CYANOCOBALAMIN (B-12) 500 MCG TABLET PO SCH (07:49)
[2022-12-21] MEDS: AMOXICILLIN/CLAVULANATE 875 MG TAB PO SCH (07:49)
[2022-12-21] MEDS: CHOLECALCIFEROL 5,000 UNITS 125 MCG TAB PO SCH (07:50)
[2022-12-21] MEDS: amLODIPine BESYLATE 5 MG TAB PO SCH (07:50)
[2022-12-21] MEDS: METOPROLOL SUCC 50MG EXT REL TAB PO SCH (07:50)
[2022-12-21] MEDS: NITROGLYCERIN 0.6 MG/HR PATCH TD SCH (07:51)
[2022-12-21] MEDS: DOCUSATE SODIUM 100 MG CAP PO SCH (07:52)
[2022-12-21 08:02] LABS: BUN Creatinine Ratio 17.4 (10-20); Calcium 9.4 mg/dl (8.6-10.3); Creatinine Clr Calc Pharmacy 49.8 ml/min; Est GFR (African American) 55.8 ml/min; Est GFR (Non-African American) 48.2 ml/min; Magnesium 2.5 mg/dl (1.7-2.4); Potassium 4.3 mmol/L (3.5-5.1)
--- NOTE | 2022-12-21 08:37 | Hospitalist Progress Note ---
Date of Service December 21, 2022 Assessment & Plan (1) CHF exacerbation: Plan: Acute CHF Acute heart failure with reduced ejection fraction and diastolic dysfunction Progressive symptoms of volume overload over last few days including +PND, + orthopnea, exercise intolerance, and chest discomfort. + Pulmonary edema on CXR and an elevated BNP. Trop mildly elevated and EKG reveals no acute ischemic changes. Physical exam on admission - w/ +crackles on auscultation and abdominal distension. Monitor on telemetry. Echo obtained. LV systolic function is mildly reduced. EF 45 to 50%. Septal motion is consistent with conduction abnormality. There is a moderate sized septal, inferior, and posterior wall motion abnormality with hypokinesis to akinesis of the segments. Left atrium is moderately dilated. Aortic valve sclerosis mild, without significant aortic valvular stenosis. Mild aortic regurg. There is moderate mitral regurg. There is mild tricuspid regurg. The estimated systolic pulmonary pressure is 46 mmHg. Cardiology consulted - Continued w/ diuresis with IV Lasix. Repeated CXR - pulm. edema improved, R lung base infiltrate. Procal negative. Augmentin started. Pt still on 2 L of suppl. O2 at that time, cont. to closely monitor. 12/19 - Pt is on RA, feeling well overall. Some cough. Seen by cardiology, plan to start for Entresto. Cr 1.4 12/20 Pt is on RA. Started Entresto. Cr 1.3- reports some episodes of dizziness when standing up, seems to resolve quickly though 11/21 Seen by cardiology, plan to DC on Entresto. Overall pt is doing well, con. to have some mild dizziness when standing up. Consider to stop terazosin. monitor I/Os Replete electrolytes PT/OT consultation. (2) CAD (coronary artery disease): Plan: s/p CABG in 1992 and most recently pt came to [facility] and underwent cardiac catheterization where there was concern for two venous grafts from his bypass that had become occluded as well as an LAD stenosis where the graft was implanted. He was transferred to [facility] [place] for further management and underwent left heart cath with a drug-eluting stent to LAD on 11/24/2022. This was a left femoral artery access. He did have mild ROD with creatinine up to 1.6 which has resolved and was felt to be associated with contrast-induced nephropathy. Creatinine is back to baseline. Repeated echo (as above), trended trop, monitor on telemetry and cont current medical therapy including nitro, Toprol, ASA, Plavix, Ranexa and noted allergy to statins. Cardiology consulted and following. (3) Alcohol abuse: Plan: Drinks bourbon approximately 4 drinks TIW. Monitor closely for any withdrawal symptoms. This may be contributing to his heartburn issues, and will need to pet counselor him to cut down on his drinking or stop altogether. (4) GERD (gastroesophageal reflux disease): Plan: chronic, stable. Cont PPI BID with Pepcid for breakthrough. (5) Gout: Plan: chronic, stable. Cont allopurinol. (6) Depression: Plan: chronic, stable. Cont sertraline per home regimen. Lovenox Full Dispo- plan to return home Admission and Anticipated Discharge Date Admission Date: December 16, 2022 Subjective Pt seen in follow up of acute CHF, hx of CAD, s/p cabg Currently sitting up in chair in NAD, on RA Pt was started on Entresto. Overall reports feeling much better since admission . Reports little dizzy when stands up but resolves fairly quickly though. Currently no chest pain. No fevers chills, no abdominal pain, no nausea vomiting. Review of Systems Review of Systems: All systems reviewed & are unremarkable except as noted in Subjective Physical Exam Physical Exam: CONSTITUTIONAL: WNWD, in NAD, on RA EYES: normal conjunctivae, no scleral icterus ENT: external ear and nose normal, MMM NECK:supple RESPIRATORY:CTAB, no wheezes, normal respiratory effort CARDIOVASCULAR: regular rate and rhythm, S1 and 2 heard without murmurs,no peripheral edema CHEST: normal inspection of chest GASTROINTESTINAL: soft, obese, nontender, no guarding MUSCULOSKELETAL: head is normocephalic and atraumatic, moves extremities SKIN: warm and dry NEUROLOGIC: awake, alert, answers appropriately, normal speech, no tremor, moves extremities Results & Data Results & Data Vital Signs (Past 12 Hours) Vital Signs Temp Pulse Pulse Resp BP Pulse Ox O2 Del Method 12/21/22 07:02 61 12/21/22 06:45 36.7 C 59 L 18 123/79 93 Room Air 12/21/22 02:48 36.6 C 56 L 18 104/75 93 Room Air 12/21/22 00:30 57 L 12/20/22 22:00 36.4 C L 56 L 18 119/72 93 Room Air Laboratory Results 12/21/22 Range/Units 07:29 Sodium 140 (136-145) mmol/L Potassium 4.3 (3.5-5.1) mmol/L Chloride 105 (98-107) mmol/L Carbon Dioxide 30 (21-32) mmol/L Anion Gap 5 (3-11) BUN 25 H (6-23) mg/dl Creatinine 1.44 H (0.6-1.4) mg/dl Est Cr Clr Drug Dosing 49.8 ml/min Est GFR ( Amer) 55.8 ml/min Est GFR (Non-Af Amer) 48.2 ml/min BUN/Creatinine Ratio 17.4 (10-20) Glucose 117 H (70-99(Fasting)) mg/dl Calcium 9.4 (8.6-10.3) mg/dl Magnesium 2.5 H (1.7-2.4) mg/dl Medications Administered Current Inpatient Medications Acetaminophen (Acetaminophen 325 Mg Tab) 650 mg PO Q4H PRN PRN Reason: Pain or Fever Stop: 01/15/23 14:59 Allopurinol (Allopurinol 300 Mg Tab) [facility] [place] Stop: 01/16/23 08:59 Last Admin: 12/21/22 07:48 Dose: 150 mg Allopurinol (Allopurinol 300 Mg Tab) 300 mg PO QPM [facility] Stop: 01/15/23 20:59 Last Admin: 12/20/22 20:02 Dose: 300 mg Amlodipine Besylate (Amlodipine Besylate 5 Mg Tab) [facility] [place] Stop: 01/16/23 08:59 Last Admin: 12/21/22 07:50 Dose: 5 mg Amoxicillin/Clavulanate Potassium (Amoxicillin/Clavulanate 875 Mg Tab) 1 tab PO BIDM [facility] Stop: 12/25/22 16:59 Last Admin: 12/21/22 07:49 Dose: 1 tab Aspirin (Aspirin 81 Mg Ectab) 81 mg PO BID [facility] Stop: 01/15/23 20:59 Last Admin: 12/21/22 07:46 Dose: 81 mg Clopidogrel Bisulfate (Clopidogrel Bisulfate 75 Mg Tab) 75 [facility] [place] Stop: 01/16/23 08:59 Last Admin: 12/21/22 07:47 Dose: 75 mg Cyanocobalamin (Cyanocobalamin (B-12) 500 Mcg Tablet) 1,000 mcg PO DAILY [facility] Stop: 01/16/23 08:59 Last Admin: 12/21/22 07:49 Dose: 1,000 mcg Docusate Sodium (Docusate Sodium 100 Mg Cap) 100 mg PO BID [facility] Stop: 01/15/23 20:59 Last Admin: 12/21/22 07:52 Dose: 100 mg Famotidine (Famotidine 20 Mg Tab) 20 mg PO BID PRN PRN Reason: Acid Reflux Stop: 01/15/23 14:59 Guaifenesin (Guaifenesin 600 Mg Tabcr) 600 mg PO Q12 [facility] Stop: 01/17/23 20:59 Last Admin: 12/21/22 07:46 Dose: 600 mg Lactobacillus Acidophilus (Advanced Probiotic 1250 Mg Capsule) 2 cap PO DAILY [facility] Stop: 01/17/23 10:14 Last Admin: 12/21/22 07:47 Dose: 2 cap Metoprolol Succinate (Metoprolol Succ 50mg Ext Rel Tab) 50 mg PO QAM [facility] Stop: 01/16/23 08:59 Last Admin: 12/21/22 07:50 Dose: 50 mg Miscellaneous (Remove Nitro-Dur Patch) 1 each N/A DAILY@2100 [facility] Stop: 01/15/23 20:59 Last Admin: 12/20/22 20:03 Dose: 1 each Nitroglycerin (Nitroglycerin 0.6 Mg/Hr Patch) 1 patch TD DAILY [facility] Stop: 01/16/23 08:59 Last Admin: 12/21/22 07:51 Dose: 1 patch Alirocumab (Praluent ) 150 Mg~Non- Formulary Patient's Own Med 1 each SQ Q14D [facility] Stop: 01/16/23 14:59 Last Admin: 12/17/22 15:48 Dose: 150 mg Pantoprazole Sodium (Pantoprazole 40 Mg Tab) 40 mg PO BID [facility] Stop: 01/15/23 20:59 Last Admin: 12/21/22 07:46 Dose: 40 mg Polyethylene Glycol (Polyethylene (Miralax) 17 Gm Pack) 17 gm PO DAILY PRN PRN Reason: Constipation Stop: 01/15/23 12:29 Pyridoxine HCl (Pyridoxine Hcl 50 Mg Tab) 100 mg PO QAM [facility] Stop: 01/16/23 08:59 Last Admin: 12/21/22 07:49 Dose: 100 mg Ranolazine (Ranolazine 500 Mg Er Tab) 500 mg PO BID [facility] Stop: 01/15/23 20:59 Last Admin: 12/21/22 07:46 Dose: 500 mg Sacubitril/Valsartan (Valsartan/Sacubitril 26/24mg Tab) 1 tab PO BID [facility] Stop: 01/18/23 20:59 Last Admin: 12/21/22 07:47 Dose: 1 tab Sertraline HCl (Sertraline Hcl 50 Mg Tablet) 150 mg PO DAILY [facility] Stop: 01/16/23 08:59 Last Admin: 12/21/22 07:47 Dose: 150 mg Terazosin HCl (Terazosin Hcl 1 Mg Cap) 2 mg PO HS [facility] Stop: 01/15/23 20:59 Last Admin: 12/20/22 20:04 Dose: 2 mg Vitamin D (Cholecalciferol 5,000 Units 125 Mcg Tab) 5,000 units PO QAM [facility] Stop: 01/16/23 08:59 Last Admin: 12/21/22 07:50 Dose: 5,000 units
--- NOTE | 2022-12-21 11:06 | Cardiology Progress Note ---
Date of Service December 21, 2022 Assessment & Plan (1) Acute heart failure with reduced ejection fraction and diastolic dysfu nction: (2) CAD (coronary artery disease), [place] coronary artery: (3) LBBB (left bundle branch block): (4) Acute on chronic renal insufficiency: Plan Patient demonstrating persistent improvement congestive heart failure improved symptomatically. Denies any complaints other than mild orthostasis. Suspect combination of Entresto and terazosin. May consider discontinuing terazosin but being used for BPH Patient adapting to the medications orthostasis precautions discussed in detail. Renal function stable. Patient to be discharged today has outpatient follow-up with cardiology tomorrow Admission and Anticipated Discharge Date Admission Date: December 16, 2022 Subjective Patient seen and examined, chart, medications, telemetry reviewed. Patient feels substantially better than prehospital state. Occasional dizziness on s udden standing. No arrhythmias on telemetry no syncope. Blood pressure generally controlled. No fevers chills unexplained infections. Review of Systems Review of Systems: All systems reviewed & are unremarkable except as noted in Subjective Physical Exam Constitutional: well nourished; no acute distress ENMT: external ear and nose normal, oropharynx normal Respiratory: normal respiratory effort; no respiratory distress, no labored breathing and no retractions Auscultation: no rales, no rhonchi and no wheezes Cardiovascular: Rate/Rhythm: regular rate and regular rhythm Heart Sounds: normal S1 and normal S2; no murmur and no cardiac rub Vessels: radial pulses present; no JVD and no carotid bruit Extremities: no edema Gastrointestinal (Abdomen): Inspection/Auscultation: abdomen normal to inspection and normal bowel sounds; abdomen not distended Percussion/Palpation: abdomen soft; abdomen nontender, no guarding and abdomen not rigid Neurologic: CN's II-XI intact bilaterally and moves all extremities; no focal motor deficits Psychiatric: A+Ox3, euthymic affect Results & Data Vital Signs (Past 12 Hours) Vital Signs Temp Pulse Pulse Resp BP Pulse Ox O2 Del Method 12/21/22 07:02 61 12/21/22 06:45 36.7 C 59 L 18 123/79 93 Room Air 12/21/22 02:48 36.6 C 56 L 18 104/75 93 Room Air 12/21/22 00:30 57 L Laboratory Results Laboratory Results - last 24 hr 12/21/22 07:29 Sodium 140 Potassium 4.3 Chloride 105 Carbon Dioxide 30 Anion Gap 5 BUN 25 H Creatinine 1.44 H Est Cr Clr Drug Dosing 49.8 Est GFR ( Amer) 55.8 Est GFR (Non-Af Amer) 48.2 BUN/Creatinine Ratio 17.4 Glucose 117 H Calcium 9.4 Magnesium 2.5 H
--- NOTE | 2022-12-21 12:53 | Discharge Summary ---
Date of Service December 21, 2022 Admission HPI Per Admitting Provider 72 yo M with h/o CAD presents with 3 days of shortness of breath. Some dry coughing present. Some chest discomfort present, unsure if triggered by anything but possibly from exertion. Better with rest. +orthopnea, +PND, +exertional dyspnea. 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 Currently he cannot walk more than a couple of steps and he becomes winded. Not on diuretics at home and was given Lasix 40mg IV in the ER. ROS reveals weight loss since recent hospital stay and some constipation. Recent medication changes include daily nitro patch (0.6mg/24hr) in place of isosorbide mononitrate, increase in amlodipine to 10mg daily, NEW Ranexa 500mg BID, NEW toprol XL 50mg PO daily. Admission Exam Per Admitting Provider CONSTITUTIONAL: WNWD, vitals as above, generally well-appearing, NAD EYES: normal conjunctivae, no scleral icterus ENT: external ear and nose normal, MMM, 2LPM nasal canula in place. NECK: trachea midline, no JVD RESPIRATORY: scant crackles heard throughout all lung munoz, some diminished airflow at the bases bilaterally, no rales or wheezes, normal respiratory effort CARDIOVASCULAR: regular rate and rhythm, S1 and 2 heard without murmurs, gallops or rubs, no JVD, no peripheral edema CHEST: inspection of chest was normal GASTROINTESTINAL: soft, nontender, ND, no guarding MUSCULOSKELETAL: strength 5/5 throughout, head is normocephalic and atraumatic SKIN: warm and dry NEUROLOGIC: CN 2-12 grossly intact, no sensory deficit, normal cognition, normal speech, no tremor PSYCHIATRIC: alert cooperative and oriented to person, place and time. Euthymic mood, makes good eye contact, language grossly intact, recent and remote memory grossly intact. Principal Diagnosis Acute CHF Discharge Exam CONSTITUTIONAL: WNWD, in NAD, on RA EYES: normal conjunctivae, no scleral icterus ENT: external ear and nose normal, MMM NECK:supple RESPIRATORY:CTAB, no wheezes, normal respiratory effort CARDIOVASCULAR: regular rate and rhythm, S1 and 2 heard without murmurs,no peripheral edema CHEST: normal inspection of chest GASTROINTESTINAL: soft, obese, nontender, no guarding MUSCULOSKELETAL: head is normocephalic and atraumatic, moves extremities SKIN: warm and dry NEUROLOGIC: awake, alert, answers appropriately, normal speech, no tremor, moves extremities Discharge Data Allergies Allergy/AdvReac Type Severity Reaction Status Date / Time Iodinated Contrast Media Allergy Severe Anaphylaxis Verified 01/17/21 05:54 Noxnnud-HWY-QaY Reductase Allergy Unknown MUSCLE Verified 01/17/21 05:54 Inhibitor ACHES [Cstwcag-Vhg-Riv Reductase Inhibitor] Consultations 12/16/22 11:36 ED Decision to Admit Stat 12/16/22 15:00 Consult Cardiology Routine Hospital Course (1) CHF exacerbation: Acute CHF Acute heart failure with reduced ejection fraction and diastolic dysfunction Progressive symptoms of volume overload over last few days including +PND, +orthopnea, exercise intolerance, and chest discomfort. + Pulmonary edema on CXR and an elevated BNP. Trop mildly elevated and EKG reveals no acute ischemic changes. Physical exam on admission - w/ +crackles on auscultation and abdominal distension. Monitor on telemetry. Echo obtained. LV systolic function is mildly reduced. EF 45 to 50%. Septal motion is consistent with conduction abnormality. There is a moderate sized septal, inferior, and posterior wall motion abnormality with hypokinesis to akinesis of the segments. Left atrium is moderately dilated. Aortic valve sclerosis mild, without significant aortic valvular stenosis. Mild aortic regurg. There is moderate mitral regurg. There is mild tricuspid regurg. The estimated systolic pulmonary pressure is 46 mmHg. Cardiology consulted - Continued w/ diuresis with IV Lasix. Repeated CXR - pulm. edema improved, R lung base infiltrate. Procal negative. Augmentin started. Pt still on 2 L of suppl. O2 at that time, cont. to closely monitor. 12/19 - Pt is on RA, feeling well overall. Some cough. Seen by cardiology, plan to start Entresto. Cr 1.4 12/20 Pt is on RA. Started Entresto. Cr 1.3- reports some episodes of dizziness when standing up, seems to resolve quickly though 11/21 Seen by cardiology, plan to DC on Entresto. Overall pt is doing well, con. to have some mild dizziness when standing up. Consider to stop terazosin. (2) CAD (coronary artery disease): s/p CABG in 1992 and most recently pt came to [facility] and underwent cardiac catheterization where there was concern for two venous grafts from his bypass that had become occluded as well as an LAD stenosis where the graft was im planted. He was transferred to [facility] for further management and underwent left heart cath with a drug-eluting stent to LAD on 11/24/2022. This was a left femoral artery access. He did have mild ROD with creatinine up to 1.6 which has resolved and was felt to be associated with contrast-induced nephropathy. Creatinine is back to baseline. Repeated echo (as above), trended trop, monitor on telemetry and cont current medical therapy including nitro, Toprol, ASA, Plavix, Ranexa and noted allergy to statins. Cardiology consulted and following. (3) Alcohol abuse: Drinks bourbon approximately 4 drinks TIW. No withdrawal symptoms. (4) GERD (gastroesophageal reflux disease): chronic, stable. Cont PPI BID with Pepcid for breakthrough. (5) Gout: chronic, stable. Cont allopurinol. (6) Depression: chronic, stable. Cont sertraline per home regimen. Total Time Total Time Spent Total Time Spent (In Minutes): 40 Discharge Plan Discharge Items Patient Disposition: Home - Self-Care Reason For Visit: ACUTE CHF Discharge Diagnosis: Acute CHF Condition on Discharge: Fair Activity: Per Instructions section Non-emergency contact: Primary Care Provider and Newspaper Reporter Call non-emergency contact if: you have any medication questions and your symptoms worsen Follow-up/Referrals: Miguel Suarez MD [Primary Care Provider] - (Date & Time 12/28/2022 10:00 AM Provider Miguel Suarez MD Department Family Practice [facility] ) Maria Del Carmen Sam PA-C [Physician Lead Project Engineer] - (Date & Time 12/22/2022 11:30 AM Provider Maria Del Carmen Sam PA-C Department Cardiology, [facility] ) Diet: Heart Healthy and Low Sodium (2gm) Addtl Attending Provider Instructions: Follow-up with primary care doctor, and manager call. The appointment with primary care doctor was scheduled for you for 12/28/2022. You have an appointment with your manager call scheduled for tomorrow, December 22. You were started on a new medication, called Entresto, by your manager call. Finish antibiotic treatment, as prescribed. Addtl Forest Law And Policy Professor Provider Instructions: Call your Primary Care doctor if any of the following symptoms or problems start or get worse: * Shortness of breath or difficulty breathing * Wake up at night short of breath * Chest pain * Cough * Swelling of your hands, feet, or legs * More fatigued or tired with your normal activity * Palpitations - sudden fast heart beats WEIGHT * Weigh yourself every morning after using the bathroom. * Use the same scale. * Wear the same amount of clothing. * Write your weight down on a chart. * Call your Primary Care doctor if you gain more than 2-3 pounds in 1-2 days. MEDICATIONS * Use this discharge instruction sheet for medication instructions. * Take your medications at the time your doctor ordered. * Do not skip a dose of your medicines. * If you miss a dose of medicine, take it as soon as possible, but DO NOT DOUBLE A DOSE. * Read your medicine information when you get home. * Know all of the side effects of your medicine. If in doubt, ask your pharmacist * Call your Primary Care doctor's office if you have any side effects. * Be sure all of your doctors know what medicine and herbs you take (including cold, flu, and herbal medicine). Take the following with you to your follow-up doctor appointments: * Weight Chart * Medication List * List of questions Do not drink excessive alcohol, beer or wine. Pending Studies at Discharge: No Stand-Alone Forms: My [facility] [employer], Smoking Cessation Medications and DC Order Prescriptions: New amoxicillin-pot clavulanate 875-125 mg Tablet 1 tab PO BIDM Qty: 2 0RF Entresto 24-26 mg Tablet 1 tab PO BID Qty: 60 0RF guaifenesin [Mucinex] 600 mg Tablet Extended Release 12hr 600 mg PO Q12 Qty: 7 0RF Continued fluocinonide 0.05 % cream 1 applic topical BID PRN (Reason: Rash) hydrocortisone valerate 0.2 % ointment 1 applic topical BID PRN (Reason: Rash) sertraline 100 mg tablet 150 mg PO DAILY Patient Comments: took 50 mg this morning terazosin 2 mg Capsule 2 mg PO HS cholecalciferol (vitamin D3) [Vitamin D3] 5,000 unit Tablet 5,000 unit PO QAM clopidogrel [Plavix] 75 mg Tablet 75 mg PO QAM nitroglycerin [Nitrostat] 0.4 mg Tablet, Sublingual 0.4 mg Sublingual UD PRN (Reason: Chest Pain) Rx Instructions: ONE TABLET UNDER THE TONGUE EVERY 5 MINUTES UP TO 3 DOSES FOR CHEST PAIN. vitamin E 400 unit Capsule 400 unit PO QAM fluticasone propionate 50 mcg/actuation [place],Suspension 2 spray INTRANASAL DAILY PRN (Reason: Nasal Congestion) aspirin 81 mg Tablet,Delayed Release (Dr/Ec) 81 mg PO AMPM pyridoxine (vitamin B6) [Vitamin B-6] 100 mg Tablet 100 mg PO QAM nitroglycerin 0.6 mg/hr patch 24 hour 1 patch topical DAILY metoprolol succinate 50 mg tablet extended release 24 hr 50 mg PO QAM cyanocobalamin (vitamin B-12) [Vitamin B-12] 1,000 mcg Tablet 1,000 mcg PO DAILY famotidine 20 mg tablet 20 mg PO BID PRN (Reason: Acid Reflux) pantoprazole 40 mg tablet,delayed release (DR/EC) 40 mg PO BID Praluent Pen 150 mg/mL Pen Injector 150 mg SUBCUT .[id number] Patient Comments: Due 12/17 acetaminophen-codeine [Tylenol-Codeine #3] 300-30 mg Tablet 1 - 2 tab PO Q4H PRN (Reason: Pain) amlodipine 10 mg tablet 10 mg PO QAM allopurinol 300 mg tablet 150 mg PO QAM allopurinol 300 mg tablet 300 mg PO QPM ranolazine 500 mg tablet extended release 12 hr 500 mg PO BID [employer] Testosterone Cap 1 tab PO DAILY Discharge Orders: Discharge Order- CHF (Routine); Ordered 12/21/22 Ordered By: Payam Caputo Admission Data Admit Date/Time: 12/16/22 12:49 Attending Provider: Payam Caputo Admit Provider: Jo Anderson Primary Care Provider: Miguel Suarez Other Providers: Jo Anderson ; Herbie Collins ; [facility]
== END 2022-12-21 13:53 | disposition home or self-care (01) | DRG 291 ==
LOC: ED 08:26 → SUATTDRO 12:49 → 2N 12:49

== ENCOUNTER 2023-01-16 07:37 | Observation (INO) ==
[2023-01-16] MEDS ORDERED: ONDANSETRON INJ 2 MG/ML 2 ML VIAL IV STA (07:52)
[2023-01-16] MEDS ORDERED: MoRPHine SULFATE 4 MG/ML 1 ML CARP\\VIAL IV PRN ×2 (07:52→11:46)
[2023-01-16] MEDS ORDERED: SODIUM CHLORIDE 0.9% 1000ML 1,000 ML IV STA (07:52)
--- NOTE | 2023-01-16 07:56 | Emergency Department Note ---
Impression & Plan SBO (small bowel obstruction), Infarction of spleen ED Provider Note INFORMANT: Patient ED PROVIDER(S): Raad Campos DO CHIEF COMPLAINT: Abdominal pain PLAN: Disposition: Admission Outpatient prescription management: [none] Discussion with: I spoke with the hospitalist, who will see the patient for admission/observation and further evaluation and consultation. I spoke with the general surgery service, they will see the patient in consultation. MEDICAL DECISION MAKING: This is a 72-year-old male who presents to the ED with a chief complaint of abdominal pain. The patient has history of colon cancer and partial colectomy in the past. He states that that was in 2013. He has had small bowel obstruction since. The patient reports abdominal pain that started slowly yesterday and progressively worsened to this morning. He has had some associated nausea and vomiting with his last episode of vomiting just prior to arrival. The patient states that the pain waxes and wanes and comes in waves. He states that he has had very little flatus today. His abdominal exam reveals fairly normal bowel sounds. He does appear to have intermittent discomfort during my exam. Vital signs reveal hypertension. The rest of exam was unremarkable. No breathing issues. Heart is regular rate and rhythm. Abdomen is generally soft mildly tender diffusely. CT scan of the abdomen and pelvis shows a small bowel obstruction. There are also findings of a acute to subacute splenic infarct. Clinically the symptoms are consistent with his bowel obstruction. The patient's CBC did not show leukocytosis or anemia. Chemistry panel did not show any concerning electrolyte abnormality or kidney dysfunction. The BUN is 25 suggesting some dehydration which correlates to a urinalysis with 1+ ketones. His EKG shows a sinus rhythm at a rate of 64. The patient was told the results of the test. He was treated with IV fluids, IV Zofran for nausea, IV morphine for pain as well as an NG tube for his bowel obstruction. Over the hospitalist, who will see the patient for further evaluation and care. I also spoke with the surgical service about the patient. The previous episodes of this have resolved without surgery and they will follow during the hospitalization Triage Nursing notes reviewed. Vital Signs: reviewed Prior /Outside records reviewed: [none] Differential diagnosis: Small bowel obstruction, bowel perforation, diverticulitis, pancreatitis, cholecystitis, bowel cancer, other. Diagnostics, as interpreted by me: 12 lead ECG: Sinus rhythm rate of 64. First-degree AV block. No ST elevation. No PVCs. Normal QTc Cardiac Monitoring ordered: Sinus rhythm in the 60s Medical decision rules: [none] Imaging studies: CT scan of the abdomen pelvis: Small bowel obstruction, splenic infarct Procedures: none. Critical care: none. HPI: See MDM above. PAST MEDICAL HISTORY: See Below PAST SURGICAL HISTORY: See Below SOCIAL HISTORY: See Below HOME MEDICATIONS:See Below ALLERGIES: See Below VITALS: See Below PHYSICAL EXAMINATION: See MDM for positive findings otherwise unremarkable. CONSTITUTIONAL/VITAL SIGNS: Reviewed GENERAL:done as appropriate INTEGUMENTARY: done as appropriate HEAD: done as appropriate EYES: done as appropriate RESPIRATORY: done as appropriate CARDIOVASCULAR:done as appropriate GI/ABDOMEN:done as appropriate EXTREMITIES: done as appropriate NEUROLOGICAL: done as appropriate PSYCHIATRIC:done as appropriate MUSCULOSKELETAL:done as appropriate TRIAGE NURSING DOCUMENTATION REVIEWED. Past Med/Surg History Medical History Anxiety BPH (benign prostatic hyperplasia) BPH with obstruction/lower urinary tract symptoms CAD (coronary artery disease) "1992 - CABG x 5 09/2016 - [facility] to SVG of OM 10/2016 - repeat cath, no lesions amenable to intervention, medical management recommended" Follows with Dr. Kaiser Chronic idiopathic thrombocytopenia F/U PCP Depression Dyslipidemia On injectable medications - cannot tolerate statins GERD (gastroesophageal reflux disease) Well controlled and stable with med Gout No current issues Hearing deficit BL [place] Has hearing aids - not wearing hearing aids History of colon cancer dx 2016; treated surgically + oral chemo History of COVID-19 08/2020; asymptomatic -TESTED BY [facility] History of intestinal obstruction No recent issues History of TIA (transient ischemic attack) -"SHOWS 7 ON SCANS" PER PT-F/U History of TMJ disorder Occ jaw clicking - no jaw locking HTN (hypertension) On home oxygen therapy 2 LPM qHS- does not always use secondary to nasal dryness Prediabetes Diet controlled Temporomandibular joint disorder CLICKS NO LOCKING Surgical History H/O arthroscopic knee surgery mult BL H/O heart artery stent x 1 H/O toe surgery History of cardiac catheterization 2016 [facility] - 1 stent History of carpal tunnel surgery History of colonoscopy History of partial colectomy History of tonsillectomy and adenoidectomy S/P CABG x 5 1992 [facility] Ne[place] Family History Father Diabetes Esophagus cancer Stomach cancer Heart disease Other No family history of adverse response to anesthesia Social History Smoking Status: Never smoker Tobacco Type: Cigarettes Second Hand Exposure: Yes (FAMILY SMOKED); Do You Dip or Chew Tobacco: No (QUIT 30 YRS AGO); Hx Alcohol Use: Yes Alcohol type: hard liquor Hx Substance Use: No Preferred Language: Spanish Communication Ability: Effective District Recruiter Required: No Beliefs That Will Affect Care: None marital status: Current Living Situation: Family current occupational status: retired Feels Safe at Home: Yes Assistive Devices: Cane and Oxygen - at Night Allergies Allergies Allergy/AdvReac Type Severity Reaction Status Date / Time Iodinated Contrast Media Allergy Severe Anaphylaxis Verified 01/17/21 05:54 [id number] Reductase Allergy Unknown MUSCLE Verified 01/17/21 05:54 Inhibitor ACHES [Scblllz-Lao-Csj Reductase Inhibitor] Home Meds Home Medications Medication Instructions Recorded Confirmed cholecalciferol (vitamin D3) 125 5,000 unit PO QAM 05/22/18 12/16/22 mcg (5,000 unit) tablet (Vitamin D3) clopidogrel 75 mg tablet (Plavix) 75 mg PO QAM 05/22/18 12/16/22 nitroglycerin 0.4 mg sublingual 0.4 mg sublingual UD PRN Chest Pain 05/22/18 12/16/22 tablet (Nitrostat) terazosin 2 mg capsule 2 mg PO HS 05/22/18 12/16/22 vitamin E 268 mg (400 unit) capsule 400 unit PO QAM 05/22/18 12/16/22 pyridoxine (vitamin B6) 100 mg 100 mg PO QAM 12/06/20 12/16/22 tablet (Vitamin B-6) fluocinonide 0.05 % topical cream 1 applic topical BID PRN Rash 12/31/20 12/16/22 hydrocortisone valerate 0.2 % 1 applic topical BID PRN Rash 12/31/20 12/16/22 topical ointment sertraline 100 mg tablet 150 mg PO DAILY 01/07/21 12/16/22 aspirin 81 mg tablet,delayed 81 mg PO AMPM 01/10/21 12/16/22 release fluticasone propionate 50 2 spray intranasal DAILY PRN Nasal 01/10/21 12/16/22 mcg/actuation nasal Congestion spray,suspension Formulas Testosterone Cap 1 tab PO DAILY 12/16/22 12/16/22 acetaminophen 300 mg-codeine 30 mg 1 - 2 tab PO Q4H PRN Pain 12/16/22 12/16/22 tablet alirocumab 150 mg/mL subcutaneous 150 mg subcut .[id number] 12/16/22 12/16/22 pen injector (Praluent Pen) allopurinol 300 mg tablet 150 mg PO QAM 12/16/22 12/16/22 allopurinol 300 mg tablet 300 mg PO QPM 12/16/22 12/16/22 amlodipine 10 mg tablet 10 mg PO QAM 12/16/22 12/16/22 cyanocobalamin (vitamin B-12) 1,000 mcg PO DAILY 12/16/22 12/16/22 1,000 mcg tablet (Vitamin B-12) famotidine 20 mg tablet 20 mg PO BID PRN Acid Reflux 12/16/22 12/16/22 metoprolol succinate 50 mg 50 mg PO QAM 12/16/22 12/16/22 tablet,extended release 24 hr nitroglycerin 0.6 mg/hr 1 patch topical DAILY 12/16/22 12/16/22 transdermal 24 hour patch pantoprazole 40 mg tablet,delayed 40 mg PO BID 12/16/22 12/16/22 release ranolazine 500 mg tablet,extended 500 mg PO BID 12/16/22 12/16/22 release,12 hr Previous Rx's Medication Instructions Recorded amoxicillin 875 mg-potassium 1 tab PO BIDM #2 tabs 12/21/22 clavulanate 125 mg tablet guaifenesin 600 mg tablet, 600 mg PO Q12 #7 tabs 12/21/22 extended release 12 hr (Mucinex) sacubitril 24 mg-valsartan 26 mg 1 tab PO BID #60 tabs 12/21/22 tablet (Entresto) Results & Data (ED) Vital Signs Vital Signs - 24 hr 01/16/23 07:41 01/16/23 08:16 01/16/23 08:19 Temperature 36.4 C L Temperature Source Temporal Artery Scan Pulse Rate 81 63 Pulse Rate [Apical] 63 Respiratory Rate 16 18 Respiratory Effort / Characteristics Non-Labored Non-Labored Spontaneous Respiratory Depth Normal Normal Respiratory Pattern Regular Blood Pressure 164/102 H Blood Pressure [Right Arm] 147/94 H Blood Pressure Mean 122 Blood Pressure Mean [Right Arm] 111 Blood Pressure Position [Right Arm] Sitting Pulse Oximetry 93 96 Oxygen Delivery Method Room Air Room Air Sepsis Recent Fever Within 48 Hours No Sepsis New/Unexplained Change in Mental Status No Sepsis Action Taken by Nursing No Action Required 01/16/23 08:19 Temperature Temperature Source Pulse Rate 63 Pulse Rate [Apical] Respiratory Rate 18 Respiratory Effort / Characteristics Respiratory Depth Respiratory Pattern Blood Pressure Blood Pressure [Right Arm] Blood Pressure Mean Blood Pressure Mean [Right Arm] Blood Pressure Position [Right Arm] Pulse Oximetry 96 Oxygen Delivery Method Room Air Sepsis Recent Fever Within 48 Hours Sepsis New/Unexplained Change in Mental Status Sepsis Action Taken by Nursing Laboratory Data 01/16/23 08:14 01/16/23 08:14 Lab Results 01/16/23 01/16/23 01/16/23 Range/Units 08:14 08:14 08:14 WBC 6.09 (4.8-10.8) K/ul RBC 4.71 (4.70-6.10) M/uL Hgb 14.6 (14.0-18.0) g/dl Hct 43.4 (42.0-52.0) % MCV 92.1 (80.0-100.0) fL MCH 31.0 (25.0-34.0) pg MCHC 33.6 (32.0-36.0) g/dL RDW Std Deviation 53.9 H (36.4-46.3) fL RDW Coeff of Long 15.9 H (11.5-14.5) % Plt Count 130 (130-400) K/uL MPV 10.6 (9.4-12.4) fL Immature Gran % (Auto) 0.2 % Neut % (Auto) 82.1 % Lymph % (Auto) 9.7 % [place] % (Auto) 5.7 % Eos % (Auto) 1.6 % Baso % (Auto) 0.7 % Neut # (Auto) 5.00 (1.40-6.50) K/uL Lymph # (Auto) 0.59 L (1.2-3.4) K/uL [place] # (Auto) 0.35 (0.11-0.59) K/uL Eos # (Auto) 0.10 (0-0.50) K/uL Baso # (Auto) 0.04 (0-0.2) K/uL Immature Gran # (Auto) 0.01 (0.01-0.20) K/uL Sodium 141 (136-145) mmol/L Potassium 4.2 (3.5-5.1) mmol/L Chloride 104 (98-107) mmol/L Carbon Dioxide 30 (21-32) mmol/L Anion Gap 7 (3-11) BUN 25 H (6-23) mg/dl Creatinine 1.07 (0.6-1.4) mg/dl Est Cr Clr Drug Dosing Not Reportable Est GFR ( Amer) 80.0 ml/min Est GFR (Non-Af Amer) 69.0 ml/min BUN/Creatinine Ratio 23.4 H (10-20) Glucose 140 H (70-99(Fasting)) mg/dl Calcium 9.8 (8.6-10.3) mg/dl Total Bilirubin 0.7 (0.2-1.0) mg/dl AST 25 (13-39) U/L ALT 21 (7-52) U/L Alkaline Phosphatase 43 (34-104) U/L Total Protein 7.2 (6.0-8.3) gm/dl Albumin 4.8 (3.4-5.0) gm/dl Globulin 2.4 L (2.5-4.0) gm/dl Albumin/Globulin Ratio 2.0 (0.9-2) Lipase 28 (11-82) U/L Urine Color Dark Yellow Urine Appearance Clear (Clear) Urine pH 6.0 (4.5-7.5) Ur Specific [place] 1.020 (1.000-1.030) Urine Protein Trace H (Negative) Urine Glucose (UA) Negative (Negative) Urine Ketones 1+ H (Negative) Urine Blood Negative (Negative) Urine Nitrite Negative (Negative) Urine Bilirubin Negative (Negative) Urine Urobilinogen Negative (Negative) Ur Leukocyte Esterase Negative (Negative) Urine WBC (Auto) 1-5 (0-5) /hpf Urine RBC (Auto) 0-4 (0-4) /hpf U Hyaline Cast (Auto) 0 (0-5) /lpf U Epithel Cells (Auto) 0-5 (0-5) /lpf Urine Bacteria (Auto) Negative (Negative) SARS-CoV-2, RNA, NAAT (NEGATIVE) 01/16/23 Range/Units 08:14 WBC (4.8-10.8) K/ul RBC (4.70-6.10) M/uL Hgb (14.0-18.0) g/dl Hct (42.0-52.0) % MCV (80.0-100.0) fL MCH (25.0-34.0) pg MCHC (32.0-36.0) g/dL RDW Std Deviation (36.4-46.3) fL RDW Coeff of Long (11.5-14.5) % Plt Count (130-400) K/uL MPV (9.4-12.4) fL Immature Gran % (Auto) % Neut % (Auto) % Lymph % (Auto) % [place] % (Auto) % Eos % (Auto) % Baso % (Auto) % Neut # (Auto) (1.40-6.50) K/uL Lymph # (Auto) (1.2-3.4) K/uL [place] # (Auto) (0.11-0.59) K/uL Eos # (Auto) (0-0.50) K/uL Baso # (Auto) (0-0.2) K/uL Immature Gran # (Auto) (0.01-0.20) K/uL Sodium (136-145) mmol/L Potassium (3.5-5.1) mmol/L Chloride (98-107) mmol/L Carbon Dioxide (21-32) mmol/L Anion Gap (3-11) BUN (6-23) mg/dl Creatinine (0.6-1.4) mg/dl Est Cr Clr Drug Dosing Est GFR ( Amer) ml/min Est GFR (Non-Af Amer) ml/min BUN/Creatinine Ratio (10-20) Glucose (70-99(Fasting)) mg/dl Calcium (8.6-10.3) mg/dl Total Bilirubin (0.2-1.0) mg/dl AST (13-39) U/L ALT (7-52) U/L Alkaline Phosphatase (34-104) U/L Total Protein (6.0-8.3) gm/dl Albumin (3.4-5.0) gm/dl Globulin (2.5-4.0) gm/dl Albumin/Globulin Ratio (0.9-2) Lipase (11-82) U/L Urine Color Urine Appearance (Clear) Urine pH (4.5-7.5) Ur Specific [place] (1.000-1.030) Urine Protein (Negative) Urine Glucose (UA) (Negative) Urine Ketones (Negative) Urine Blood (Negative) Urine Nitrite (Negative) Urine Bilirubin (Negative) Urine Urobilinogen (Negative) Ur Leukocyte Esterase (Negative) Urine WBC (Auto) (0-5) /hpf Urine RBC (Auto) (0-4) /hpf U Hyaline Cast (Auto) (0-5) /lpf U Epithel Cells (Auto) (0-5) /lpf Urine Bacteria (Auto) (Negative) SARS-CoV-2, RNA, NAAT NEGATIVE (NEGATIVE) Administered Medications Morphine Sulfate (Morphine Sulfate 4 Mg/Ml 1 Ml Carp\\Vial) 4 mg IV Q15M PRN PRN Reason: Pain Stop: 01/30/23 07:51 Last Admin: 01/16/23 08:02 Dose: 4 mg Documented By: KELECHI Discontinued Medications Sodium Chloride (Nss 1000ml) 1,000 mls @ 999 mls/hr IV .Q1H1M STA Stop: 01/16/23 08:52 Last Infusion: 01/16/23 09:18 Dose: 0 mls/hr Documented By: Admin: 01/16/23 08:02 Dose: 999 mls/hr Documented By: KELECHI Ondansetron HCl (Ondansetron Inj 2 Mg/Ml 2 Ml Vial) 4 mg IV NOW STA Stop: 01/16/23 07:53 Last Admin: 01/16/23 08:02 Dose: 4 mg Documented By: KELECHI Imaging Data Radiologist's Impression: Abdomen/Pelvis CT 01/16/23 07:52 CT OF THE ABDOMEN AND PELVIS WITHOUT CONTRAST CLINICAL HISTORY: abd pain hx sbo colectomy in past,?sbo COMPARISON STUDY: CT of the abdomen and pelvis December 04, 2020. KUB March 03, 2022. TECHNIQUE: Axial images of the abdomen and pelvis were obtained without IV contrast. Images were reviewed in the axial, sagittal, and coronal planes. Automated exposure control was utilized for the study. A dose lowering technique was utilized adhering to the principles of ALARA. FINDINGS: Lung bases are unremarkable. No pneumatosis, free air or portal venous gas is present. Multiple small bilateral renal calculi measure up to 3 mm. There are no ureteral calculi. There is no hydronephrosis. Evaluation of the remainder of the abdomen and pelvis is suboptimal on this unenhanced exam. There is hepatic steatosis. Mild splenomegaly is unchanged since CT of December 04, 2020. 5.2 x 4 cm wedge-shaped hypodensity within the spleen is new since prior exam. There is associated minimal perisplenic stranding and fluid. A small amount of fluid extends into the left paracolic gutter. Unenhanced images of the adrenal glands and pancreas are unremarkable. 3.1 cm infrarenal abdominal aortic aneurysm is noted. Caliber has minimally increased since prior CT. No evidence for rupture. Sigmoid resection is noted. There is colonic diverticulosis without evidence for acute diverticulitis. The appendix is normal. The proximal to mid small bowel is moderately dilated and fluid-filled. Transition point within the mid ileum within the anterior abdomen on axial image 201 of 341 is noted. Small bowel feces sign is noted. Distal small bowel is decompressed. Minimal associated mesenteric stranding is present. No lymphadenopathy is present. There is no fluid collection. No acute fractures. IMPRESSION: 1. Findings consistent with a small bowel obstruction, as described above. 2. 5.2 x 4 cm wedge-shaped hypodensity within the spleen with a small amount of associated perisplenic fluid and stranding. Although nonspecific, this hypodensity likely reflects an acute to subacute splenic infarct. 3. Stable splenomegaly. 4. Bilateral nephrolithiasis. No ureteral calculi or hydronephrosis. 5. 3.1 cm infrarenal abdominal aortic aneurysm. ACT 112: Negative or not required by law. Electronically signed by: Marcel Chacon M.D. 01/16/2023 9:21 AM Discharge Plan Visit Data Chief Complaint: Abdominal Pain Stated Complaint: ABDOMINAL PAIN, NAUSEA - POSS BOWEL OBSTRUCTION ED Provider: Raad Campos Discharge Problem: SBO (small bowel obstruction), Infarction of spleen Patient Disposition: Home - Self-Care Forms Stand Alone Forms: [facility], [facility] Emergency Department, Important Visit Information Prescriptions Prescriptions: No Action fluocinonide 0.05 % cream 1 applic topical BID PRN (Reason: Rash) hydrocortisone valerate 0.2 % ointment 1 applic topical BID PRN (Reason: Rash) sertraline 100 mg tablet 150 mg PO DAILY Patient Comments: took 50 mg this morning terazosin 2 mg Capsule 2 mg PO HS cholecalciferol (vitamin D3) [Vitamin D3] 5,000 unit Tablet 5,000 unit PO QAM clopidogrel [Plavix] 75 mg Tablet 75 mg PO QAM nitroglycerin [Nitrostat] 0.4 mg Tablet, Sublingual 0.4 mg Sublingual UD PRN (Reason: Chest Pain) Rx Instructions: ONE TABLET UNDER THE TONGUE EVERY 5 MINUTES UP TO 3 DOSES FOR CHEST PAIN. vitamin E 400 unit Capsule 400 unit PO QAM fluticasone propionate 50 mcg/actuation [place],Suspension 2 spray INTRANASAL DAILY PRN (Reason: Nasal Congestion) aspirin 81 mg Tablet,Delayed Release (Dr/Ec) 81 mg PO AMPM pyridoxine (vitamin B6) [Vitamin B-6] 100 mg Tablet 100 mg PO QAM nitroglycerin 0.6 mg/hr patch 24 hour 1 patch topical DAILY metoprolol succinate 50 mg tablet extended release 24 hr 50 mg PO QAM cyanocobalamin (vitamin B-12) [Vitamin B-12] 1,000 mcg Tablet 1,000 mcg PO DAILY famotidine 20 mg tablet 20 mg PO BID PRN (Reason: Acid Reflux) pantoprazole 40 mg tablet,delayed release (DR/EC) 40 mg PO BID Praluent Pen 150 mg/mL Pen Injector 150 mg SUBCUT .[id number] Patient Comments: Due 12/17 acetaminophen-codeine 300-30 mg Tablet 1 - 2 tab PO Q4H PRN (Reason: Pain) amlodipine 10 mg tablet 10 mg PO QAM allopurinol 300 mg tablet 150 mg PO QAM allopurinol 300 mg tablet 300 mg PO QPM ranolazine 500 mg tablet extended release 12 hr 500 mg PO BID Formulas Testosterone Cap 1 tab PO DAILY amoxicillin-pot clavulanate 875-125 mg Tablet 1 tab PO BIDM Qty: 2 0RF Entresto 24-26 mg Tablet 1 tab PO BID Qty: 60 0RF guaifenesin [Mucinex] 600 mg Tablet Extended Release 12hr 600 mg PO Q12 Qty: 7 0RF Referrals Referrals: Miguel Suarez MD [Primary Care Provider] -
[2023-01-16 08:35] LABS: Basophils # (auto) 0.04 K/uL (0-0.2); Basophils % (auto) 0.7 %; Eosinophils % (auto) 1.6 %; Hematocrit (blood only) 43.4 % (42.0-52.0); Hemoglobin 14.6 g/dl (14.0-18.0); Immature Granulocytes # (auto) 0.01 K/uL (0.01-0.20); Immature Granulocytes % (auto) 0.2 %; Lymphocytes # (auto) 0.59 K/uL (1.2-3.4); Lymphocytes % (auto) 9.7 %; Mean Corpuscular Hgb Conc 33.6 g/dL (32.0-36.0); Mean Corpuscular Volume 92.1 fL (80.0-100.0); Mean Platelet Volume 10.6 fL (9.4-12.4); Monocytes # (auto) 0.35 K/uL (0.11-0.59); Monocytes % (auto) 5.7 %; Neutrophils % (auto) 82.1 %; Platelet Count 130 K/uL (130-400); RDW Coefficient of Variation 15.9 % (11.5-14.5); RDW Standard Deviation 53.9 fL (36.4-46.3); Red Blood Count 4.71 M/uL (4.70-6.10); White Blood Count 6.09 K/ul (4.8-10.8)
[2023-01-16 08:48] LABS: Alanine Aminotransferase 21 U/L (7-52); Albumin Level 4.8 gm/dl (3.4-5.0); Alkaline Phosphatase 43 U/L (34-104); Anion Gap 7 (3-11); Aspartate Aminotransferase 25 U/L (13-39); BUN Creatinine Ratio 23.4 (10-20); Bilirubin,Total 0.7 mg/dl (0.2-1.0); Blood Urea Nitrogen 25 mg/dl (6-23); Calcium 9.8 mg/dl (8.6-10.3); Carbon Dioxide 30 mmol/L (21-32); Chloride 104 mmol/L (98-107); Globulin 2.4 gm/dl (2.5-4.0); Glucose 140 mg/dl (70-99(Fasting)); Lipase 28 U/L (11-82); Potassium 4.2 mmol/L (3.5-5.1); Sodium 141 mmol/L (136-145); Total Protein 7.2 gm/dl (6.0-8.3)
[2023-01-16 09:20] LABS: Appearance Urine Clear (Clear); Bacteria Urine Automated Negative (Negative); Bilirubin Urine Negative (Negative); Blood Urine Negative (Negative); Cast Urine Automated 0 /lpf (0-5); Color Urine Dark Yellow; Epithelial Cell Urine Auto 0-5 /lpf (0-5); Glucose Urine UA Negative (Negative); Ketones Urine 1+ (Negative); Leukocyte Esterase Urine Negative (Negative); Nitrite Urine Negative (Negative); Protein Urine Trace (Negative); RBC Urine Automated 0-4 /hpf (0-4); Urobilinogen Urine Negative (Negative)
--- NOTE | 2023-01-16 09:24 | CT Scan Report ---
CT OF THE ABDOMEN AND PELVIS WITHOUT CONTRAST CLINICAL HISTORY: abd pain hx sbo colectomy in past,?sbo COMPARISON STUDY: CT of the abdomen and pelvis December 04, 2020. KUB March 03, 2022. TECHNIQUE: Axial images of the abdomen and pelvis were obtained without IV contrast. Images were revi ewed in the axial, sagittal, and coronal planes. Automated exposure control was utilized for the donte dy. A dose lowering technique was utilized adhering to the principles of ALARA. FINDINGS: Lung bases are unremarkable. No pneumatosis, free air or portal venous gas is present. Mult iple small bilateral renal calculi measure up to 3 mm. There are no ureteral calculi. There is no hyd ronephrosis. Evaluation of the remainder of the abdomen and pelvis is suboptimal on this unenhanced e xam. There is hepatic steatosis. Mild splenomegaly is unchanged since CT of December 04, 2020. 5.2 x 4 c m wedge-shaped hypodensity within the spleen is new since prior exam. There is associated minimal per isplenic stranding and fluid. A small amount of fluid extends into the left paracolic gutter. Unenhan connie images of the adrenal glands and pancreas are unremarkable. 3.1 cm infrarenal abdominal aortic an eurysm is noted. Caliber has minimally increased since prior CT. No evidence for rupture. Sigmoid res ection is noted. There is colonic diverticulosis without evidence for acute diverticulitis. The appen royal is normal. The proximal to mid small bowel is moderately dilated and fluid-filled. Transition poi nt within the mid ileum within the anterior abdomen on axial image 201 of 341 is noted. Small bowel f eces sign is noted. Distal small bowel is decompressed. Minimal associated mesenteric stranding is pr esent. No lymphadenopathy is present. There is no fluid collection. No acute fractures. IMPRESSION: 1. Findings consistent with a small bowel obstruction, as described above. 2. 5.2 x 4 cm wedge-shaped hypodensity within the spleen with a small amount of associated perispleni c fluid and stranding. Although nonspecific, this hypodensity likely reflects an acute to subacute sp lenic infarct. 3. Stable splenomegaly. 4. Bilateral nephrolithiasis. No ureteral calculi or hydronephrosis. 5. 3.1 cm infrarenal abdominal aortic aneurysm. ACT 112: Negative or not required by law. Electronically signed by: Marcel Chacno M.D. 01/16/2023 9:21 AM
--- NOTE | 2023-01-16 10:02 | History & Physical Report ---
Date of Service January 16, 2023 Assessment & Plan (1) SBO (small bowel obstruction): Plan: Patient is 72-year-old male with PMH HTN, CAD s/p stents, CABG, systolic diastolic CHF, history of colon cancer s/p sigmoidectomy in 2013, alcohol use, LBBB, GERD, BPH, depression, gout, history of splenomegaly, history of recurrent SBO's presented to ER with complaint of abdominal pain x [address] abdomen pelvis: Findings consistent with a small bowel obstruction In ER given 1 L NSS, morphine 4 mg 1 episode of vomiting initially in ER with no recurrent vomiting Plan to place NG tube if recurrent vomiting N.p.o. IVF, closely monitor I's and O's secondary to recent CHF exacerbation General surgery consult. Conservative management currently KUB in a.m. CBC, CMP in a.m. (2) Infarction of spleen: Plan: Chronic splenomegaly thought secondary to liver disease from alcohol use CT abdomen pelvis: 5.2 x 4 cm wedge-shaped hypodensity within the spleen with a small amount of associated perisplenic fluid and stranding. Although nonspecific, this hypodensity likely reflects an acute to subacute splenic infarct. Stable splenomegaly. 3.1 cm infrarenal abdominal aortic aneurysm. Patient denies recent/recurrent abdominal pain other than abdominal pain x1 day as above. No fever no chills. No leukocytosis, normal lipase. Monitor Conservative management currently with patient's recent cardiac history (3) Abnormal EKG: Plan: EK, sinus rhythm first AV block, Q waves inferior leads, ST depression lateral leads. Comparison with EKG 12/18/[address]-T changes of lateral leads. EKG 11/20/[address]-T wave changes of lateral leads with T wave inversion Patient without chest pain, shortness of breath High-sensitivity troponin: 9.8, 9.2 EKG in a.m. (4) CAD (coronary artery disease), [place] coronary artery: Plan: S/p stents, CABG Most recent stent placement November 2022 with stent to LAD Continue aspirin, Plavix, metoprolol succinate, Ranexa, Nitropatch Is on Praluent secondary to intolerance to statins Cardiology consult to assist in recommendations of dual platelet therapy if patient would require abdominal surgery for SBO (5) CHF (congestive heart failure): Plan: History of combined heart failure. Recent exacerbation 2 weeks ago 12/16/2022 echo: EF: 45-50%, moderate size septal, inferior, posterior wall motion abnormality with hypokinesis to akinesis of the segments. Currently appears slightly dry In ER given 1 L NSS Gentle IVF while NPO. Monitor I's and O's closely Hold Lasix (6) Alcohol use: Plan: Reports for drinks whiskey daily. Denies alcohol withdrawal in past Monitor for alcohol withdrawal Ativan as needed (7) History of colon cancer: Plan: S/p sigmoidectomy (8) HTN (hypertension): Plan: Continue amlodipine, metoprolol succinate (9) GERD (gastroesophageal reflux disease): Plan: Hold oral PPI and changed IV for now while n.p.o. Hold oral as needed Pepcid. If develop symptoms consider adding IV Pepcid (10) Gout: Plan: Continue allopurinol (11) BPH (benign prostatic hyperplasia): Plan: Continue terazosin (12) Nocturnal hypoxia: Plan: Continue 2 L O2 at bedtime DVT Prophylaxis SCDs for now Full Code as per discussion with pt Follows with Dr Suarez for routine care Pt was seen and care coordinated with Dr Villarreal. See addendum I spent a total of 80 minutes reviewing notes, outpatient records, labs, medication, coordinating, documenting and providing care for this patient excluding time spent in the performance of separately billed services. History of Present Illness Chief Complaint: Abdominal pain Primary Care Provider: Miguel Suarez MD Patient is 72-year-old male with PMH HTN, CAD s/p stents, CABG, systolic diastolic CHF, history of colon cancer s/p sigmoidectomy in 2013, alcohol use, LBBB, GERD, BPH, depression, gout, history of splenomegaly, history of recurrent SBO's presented to ER with complaint of abdominal pain x 1 day. Patient with history recent hospitalization 12/16/2022-12/21/2022 for CHF was diuresed with Lasix and discharged on Entresto. Patient states since being home has not noticed any increased edema and has not had any shortness of breath. Also recent history on 11/20/2022 had STEMI and was [place] [facility] placement to [facility]. Patient states ate lunch hamburger and [place] sprouts at 10:30 AM yesterday. Later in the day developed mid abdominal pain that worsened. Patient describes pain as sharp and nonradiating. Rates pain 8 out of 10 on pain scale. Was having some nausea. Patient states this morning try to drink a cup of coffee and had episode of vomiting. Had an additional episode of vomiting once in ER. Patient reports passed small amount of flatus this morning and was able to have scant BM yesterday. He reports this feels similar to prior SBO's however is not as severe. Drinks 4 shots of whiskey daily. Patient denies any history of alcohol withdrawal, seizure or DTs. Patient states since starting Entresto he has had intermittent orthostatic dizziness however is not as severe or often since being discharged home. Denies fever/chills, diaphoresis, hematemesis, melena, hematochezia, DICKSON, syncope, vision changes, neck pain, CP, SOB, orthopnea, palpitations, cough, sore throat, choking, otalgia, rhinorrhea, extremity weakness, extremity edema, rashes, dysuria, hematuria, urinary frequency. Today in ER CT scan abdomen pelvis consistent with SBO. Allergies Allergy/AdvReac Type Severity Reaction Status Date / Time Iodinated Contrast Media Allergy Severe Anaphylaxis Verified 01/17/21 05:54 Yfmdbop-UAB-IiZ Reductase Allergy Unknown MUSCLE Verified 01/17/21 05:54 Inhibitor ACHES [Iofford-Niw-Rai Reductase Inhibitor] Home Medications Medication Instructions Recorded Confirmed Type cholecalciferol (vitamin D3) 125 5,000 unit PO QAM 05/22/18 01/16/23 History mcg (5,000 unit) tablet (Vitamin D3) clopidogrel 75 mg tablet (Plavix) 75 mg PO QAM 05/22/18 01/16/23 History nitroglycerin 0.4 mg sublingual 0.4 mg sublingual UD PRN Chest Pain 05/22/18 01/16/23 History tablet (Nitrostat) terazosin 2 mg capsule 2 mg PO HS 05/22/18 01/16/23 History vitamin E 268 mg (400 unit) capsule 400 unit PO QAM 05/22/18 01/16/23 History pyridoxine (vitamin B6) 100 mg 100 mg PO QAM 12/06/20 01/16/23 History tablet (Vitamin B-6) fluocinonide 0.05 % topical cream 1 applic topical BID PRN Rash 12/31/20 01/16/23 History sertraline 100 mg tablet 150 mg PO DAILY 01/07/21 01/16/23 History aspirin 81 mg tablet,delayed 81 mg PO AMPM 01/10/21 01/16/23 History release fluticasone propionate 50 2 spray intranasal DAILY PRN Nasal 01/10/21 01/16/23 History mcg/actuation nasal Congestion spray,suspension Formulas Testosterone Cap 1 tab PO DAILY 12/16/22 01/16/23 History alirocumab 150 mg/mL subcutaneous 150 mg subcut .[id number] 12/16/22 01/16/23 History pen injector (Praluent Pen) allopurinol 300 mg tablet 150 mg PO QAM 12/16/22 01/16/23 History allopurinol 300 mg tablet 300 mg PO QPM 12/16/22 01/16/23 History amlodipine 10 mg tablet 10 mg PO QAM 12/16/22 01/16/23 History cyanocobalamin (vitamin B-12) 1,000 mcg PO DAILY 12/16/22 01/16/23 History 1,000 mcg tablet (Vitamin B-12) famotidine 20 mg tablet 20 mg PO BID PRN Acid Reflux 12/16/22 01/16/23 History metoprolol succinate 50 mg 50 mg PO QAM 12/16/22 01/16/23 History tablet,extended release 24 hr nitroglycerin 0.6 mg/hr 1 patch topical DAILY 12/16/22 01/16/23 History transdermal 24 hour patch pantoprazole 40 mg tablet,delayed 40 mg PO BID 12/16/22 01/16/23 History release ranolazine 500 mg tablet,extended 500 mg PO BID 12/16/22 01/16/23 History release,12 hr sacubitril 24 mg-valsartan 26 mg 1 tab PO BID #60 tabs 12/21/22 01/16/23 Rx tablet (Entresto) furosemide 20 mg tablet 20 mg PO DAILY PRN Edema 01/16/23 01/16/23 History Past Med/Surg History Medical History (Updated 01/16/23 @ 13:25 by Trudi Mancera PA-C) Anxiety BPH (benign prostatic hyperplasia) BPH with obstruction/lower urinary tract symptoms CAD (coronary artery disease) "1992 - CABG x 5 09/2016 - PRESTON to SVG of 1st OM 10/2016 - repeat cath, no lesions amenable to intervention, medical management recommended" Follows with Dr. Kaiser Chronic idiopathic thrombocytopenia F/U PCP Depression Dyslipidemia On injectable medications - cannot tolerate statins GERD (gastroesophageal reflux disease) Well controlled and stable with med Gout No current issues Hearing deficit BL DICKSON Has hearing aids - not wearing hearing aids History of colon cancer dx 2017; treated surgically + oral chemo History of COVID-19 08/2020; asymptomatic -TESTED BY [facility] AT [facility] History of intestinal obstruction No recent issues History of TIA (transient ischemic attack) -"SHOWS 7 ON SCANS" PER PT-F/U History of TMJ disorder Occ jaw clicking - no jaw locking HTN (hypertension) Nocturnal hypoxia On home oxygen therapy 2 LPM qHS- does not always use secondary to nasal dryness Prediabetes Diet controlled Temporomandibular joint disorder CLICKS NO LOCKING Surgical History H/O arthroscopic knee surgery mult H/O heart artery stent x 1 H/O toe surgery History of cardiac catheterization 2016 [facility] [place] Neisha - 1 stent History of carpal tunnel surgery History of colonoscopy History of partial colectomy History of tonsillectomy and adenoidectomy S/P CABG x 5 1992 [employer] Family History Father Diabetes Esophagus cancer Stomach cancer Heart disease Other No family history of adverse response to anesthesia Social History Smoking Status: Former smoker Tobacco Type: Cigarettes Second Hand Exposure: Yes (FAMILY SMOKED); Do You Dip or Chew Tobacco: No (QUIT 30 YRS AGO); Hx Alcohol Use: Yes Alcohol type: hard liquor Hx Substance Use: No Preferred Language: Central African Communication Ability: Effective Medical Officer Required: No Beliefs That Will Affect Care: None marital status: Current Living Situation: Alone Current Living Situation Comment: family has apartment underneath patients home current occupational status: retired Other Information That Helps Us Care for You: No Feels Safe at Home: Yes Safety Concerns: Feels Safe At This Time Assistive Devices: Glasses and Hearing Aid - Bilateral Assistive Devices Comment: Nasal Cannula 2L at night Review of Systems Review of Systems: All systems reviewed & are unremarkable except as noted in HPI & below Physical Exam Physical Exam: General: no distress, overweight Head: normocephalic, atraumatic Eyes: conjunctiva non-injected, anicteric ENT: normal inspection external ears, nose, mucous membranes dry Neck: supple, trachea midline Lungs: clear, no respiratory distress, no wheezing/rhonchi/rales CV: RRR, no murmur, no pretibial edema Abd: +distended, hypoactive BS, soft,mild tenderness RUQ, epigastric without rebound or guarding Ext: no cyanosis, no calf tenderness Neuro: A&O x 3, no focal deficits noted, normal affect Skin: warm, dry Results & Data Results & Data Vital Signs (Past 12 Hours) Vital Signs Temp Pulse Pulse Resp BP BP Pulse Ox 01/16/23 08:19 63 18 96 01/16/23 08:19 63 18 147/94 H 96 01/16/23 08:16 63 01/16/23 07:41 36.4 C L 81 16 164/102 H 93 O2 Del Method 01/16/23 08:19 Room Air 01/16/23 08:19 Room Air 01/16/23 08:16 01/16/23 07:41 Room Air Laboratory Results Short CBC 01/16/23 Range/Units 08:14 WBC 6.09 (4.8-10.8) K/ul Hgb 14.6 (14.0-18.0) g/dl Hct 43.4 (42.0-52.0) % Plt Count 130 (130-400) K/uL BMP 01/16/23 08:14 Sodium 141 Potassium 4.2 Chloride 104 Carbon Dioxide 30 BUN 25 H Creatinine 1.07 Glucose 140 H Calcium 9.8 Liver Function 01/16/23 Range/Units 08:14 Total Bilirubin 0.7 (0.2-1.0) mg/dl AST 25 (13-39) U/L ALT 21 (7-52) U/L Alkaline Phosphatase 43 (34-104) U/L Albumin 4.8 (3.4-5.0) gm/dl Urine 01/16/23 Range/Units 08:14 Urine Color Dark Yellow Urine Appearance Clear (Clear) Urine pH 6.0 (4.5-7.5) Ur Specific [place] 1.020 (1.000-1.030) Urine Protein Trace H (Negative) Urine Glucose (UA) Negative (Negative) Diagnostic Findings Abdomen/Pelvis CT 01/16/23 07:52 CT OF THE ABDOMEN AND PELVIS WITHOUT CONTRAST CLINICAL HISTORY: abd pain hx sbo colectomy in past,?sbo COMPARISON STUDY: CT of the abdomen and pelvis December 04, 2020. KUB March 03, 2022. TECHNIQUE: Axial images of the abdomen and pelvis were obtained without IV contrast. Images were reviewed in the axial, sagittal, and coronal planes. Automated exposure control was utilized for the study. A dose lowering technique was utilized adhering to the principles of ALARA. FINDINGS: Lung bases are unremarkable. No pneumatosis, free air or portal venous gas is present. Multiple small bilateral renal calculi measure up to 3 mm. There are no ureteral calculi. There is no hydronephrosis. Evaluation of the remainder of the abdomen and pelvis is suboptimal on this unenhanced exam. There is hepatic steatosis. Mild splenomegaly is unchanged since CT of December 04, 2020. 5.2 x 4 cm wedge-shaped hypodensity within the spleen is new since prior exam. There is associated minimal perisplenic stranding and fluid. A small amount of fluid extends into the left paracolic gutter. Unenhanced images of the adrenal glands and pancreas are unremarkable. 3.1 cm infrarenal abdominal aortic aneurysm is noted. Caliber has minimally increased since prior CT. No evidence for rupture. Sigmoid resection is noted. There is colonic diverticulosis without evidence for acute diverticulitis. The appendix is normal. The proximal to mid small bowel is moderately dilated and fluid-filled. Transition point within the mid ileum within the anterior abdomen on axial image 201 of 341 is noted. Small bowel feces sign is noted. Distal small bowel is decompressed. Minimal associated mesenteric stranding is present. No lymphadenopathy is present. There is no fluid collection. No acute fractures. IMPRESSION: 1. Findings consistent with a small bowel obstruction, as described above. 2. 5.2 x 4 cm wedge-shaped hypodensity within the spleen with a small amount of associated perisplenic fluid and stranding. Although nonspecific, this hypodensity likely reflects an acute to subacute splenic infarct. 3. Stable splenomegaly. 4. Bilateral nephrolithiasis. No ureteral calculi or hydronephrosis. 5. 3.1 cm infrarenal abdominal aortic aneurysm. ACT 112: Negative or not required by law. Electronically signed by: Marcel Chacon M.D. 01/16/2023 9:21 AM Supervising Physician Co-Signing Physician Notes Patient was seen and examined independently at bedside in presence of his sis ter. Chart reviewed including vitals, labs and imaging. Case discussed with Trudi STEWART and agree with the documentation above. In summary, this is a 72 year old male with h/o colon cancer s/p open sigmoid colectomy 2013 and h/o multiple SBOs all managed conservatively, h/o CAD s/p CABG and recent ACS in November 2021 requiring transfer to [facility] for PCI with PRESTON, presented to the ED with abd pain for 1 day along with vomiting and found to have SBO. Seen by surgery. Recommended conservative management for now and stated he would be a poor surgical candidate in the event he needed surgery given his recent cardiac event. During my encounter, patient was feeling better. Still had some abdominal discomfort. He passed very little gas. Hasn't taken any of his morning pills yet. He states that he had 4 SBOs so far and only one of them required NG tube and none of them required surgery. On exam, vitals stable. AAO, chest clear, heart sounds normal, abd distended, mild tenderness, hypoactive bowel sounds, no LE edema, non focal neuro exam. Continue npo, bowel rest, gentle ivf. NGT if does not improve. Avoid aggressive ivf given HFrEF (EF 45-50%) and recent admission for same. Given his cardiac history with recent ACS and being on DAPT, consult cardio regarding management of DAPT in case he needs surgery. If he does not improve and needs surgery, will need to be transferred to tertiary center if unable to do here. Conservative management of his splenic infarction incidentally seen in CT- no symptoms attributable to this at present. Also continue AWSS with ativan prn considering his alcohol intake. Rest as per the note above. (5) CHF (congestive heart failure) Heart failure chronicity: acute Heart failure type: unspecified Qualified Code(s): I50.9 - Heart failure, unspecified
--- NOTE | 2023-01-16 10:22 | Surgery Consultation ---
Date of Consultation January 16, 2023 Assessment & Plan (1) SBO (small bowel obstruction): CT images and results were personally viewed by myself He does have since dilated small bowel and decompressed ileum consistent with an obstruction This most likely due to his previous surgery and he has had these in the past that have resolved without surgery With his recent cardiac event, he would be a poor surgical candidate in the event he needed surgery He is being admitted to the medical team, keep n.p.o. and give IV fluids No NG tube is needed at this time We will continue to follow History of Present Illness Reason for Consultation: Small bowel obstruction History of Present Illness Is a 72-year-old male who presented to the ER with complaints of generalized abdominal pain that started yesterday afternoon. This was accompanied with some nausea and emesis. He states he had a small bowel movement yesterday and is passing a little bit of flatus now. The pain is sharp in nature, worse with palpation and relieved by nothing. He has a prior abdominal surgical history of an open sigmoid colectomy [place] [address] Steiner for colon cancer. He has had multiple bowel obstructions in the past that were all treated conservatively. In November of this year he had an GA requiring stent placement and is on aspirin and Plavix. He currently denies any chest pain or dyspnea. He states his pain in his abdomen is slightly better than when he arrived. Denies any fevers or chills. Allergies Allergy/AdvReac Type Severity Reaction Status Date / Time Iodinated Contrast Media Allergy Severe Anaphylaxis Verified 01/17/21 05:54 Ugvybii-OTH-FsW Reductase Allergy Unknown MUSCLE Verified 01/17/21 05:54 Inhibitor ACHES [Pdzcdmd-Rku-Opx Reductase Inhibitor] Home Medications Medication Instructions Recorded Confirmed Type cholecalciferol (vitamin D3) 125 5,000 unit PO QAM 05/22/18 12/16/22 History mcg (5,000 unit) tablet (Vitamin D3) clopidogrel 75 mg tablet (Plavix) 75 mg PO QAM 05/22/18 12/16/22 History nitroglycerin 0.4 mg sublingual 0.4 mg sublingual UD PRN Chest Pain 05/22/18 12/16/22 History tablet (Nitrostat) terazosin 2 mg capsule 2 mg PO HS 05/22/18 12/16/22 History vitamin E 268 mg (400 unit) capsule 400 unit PO QAM 05/22/18 12/16/22 History pyridoxine (vitamin B6) 100 mg 100 mg PO QAM 12/06/20 12/16/22 History tablet (Vitamin B-6) fluocinonide 0.05 % topical cream 1 applic topical BID PRN Rash 12/31/20 12/16/22 History hydrocortisone valerate 0.2 % 1 applic topical BID PRN Rash 12/31/20 12/16/22 History topical ointment sertraline 100 mg tablet 150 mg PO DAILY 01/07/21 12/16/22 History aspirin 81 mg tablet,delayed 81 mg PO AMPM 01/10/21 12/16/22 History release fluticasone propionate 50 2 spray intranasal DAILY PRN Nasal 01/10/21 12/16/22 History mcg/actuation nasal Congestion spray,suspension Formulas Testosterone Cap 1 tab PO DAILY 12/16/22 12/16/22 History acetaminophen 300 mg-codeine 30 mg 1 - 2 tab PO Q4H PRN Pain 12/16/22 12/16/22 History tablet alirocumab 150 mg/mL subcutaneous 150 mg subcut .[id number] 12/16/22 12/16/22 History pen injector (Praluent Pen) allopurinol 300 mg tablet 150 mg PO QAM 12/16/22 12/16/22 History allopurinol 300 mg tablet 300 mg PO QPM 12/16/22 12/16/22 History amlodipine 10 mg tablet 10 mg PO QAM 12/16/22 12/16/22 History cyanocobalamin (vitamin B-12) 1,000 mcg PO DAILY 12/16/22 12/16/22 History 1,000 mcg tablet (Vitamin B-12) famotidine 20 mg tablet 20 mg PO BID PRN Acid Reflux 12/16/22 12/16/22 History metoprolol succinate 50 mg 50 mg PO QAM 12/16/22 12/16/22 History tablet,extended release 24 hr nitroglycerin 0.6 mg/hr 1 patch topical DAILY 12/16/22 12/16/22 History transdermal 24 hour patch pantoprazole 40 mg tablet,delayed 40 mg PO BID 12/16/22 12/16/22 History release ranolazine 500 mg tablet,extended 500 mg PO BID 12/16/22 12/16/22 History release,12 hr amoxicillin 875 mg-potassium 1 tab PO BIDM #2 tabs 12/21/22 Rx clavulanate 125 mg tablet guaifenesin 600 mg tablet, 600 mg PO Q12 #7 tabs 12/21/22 Rx extended release 12 hr (Mucinex) sacubitril 24 mg-valsartan 26 mg 1 tab PO BID #60 tabs 12/21/22 Rx tablet (Entresto) Patient History Medical History Anxiety BPH (benign prostatic hyperplasia) BPH with obstruction/lower urinary tract symptoms CAD (coronary artery disease) "1992 - CABG x 5 09/2016 - PRESTON to SVG of OM 10/2016 - repeat cath, no lesions amenable to intervention, medical management recommended" Follows with Dr. Kaiser Chronic idiopathic thrombocytopenia F/U PCP Depression Dyslipidemia On injectable medications - cannot tolerate statins GERD (gastroesophageal reflux disease) Well controlled and stable with med Gout No current issues Hearing deficit BL DICKSON Has hearing aids - not wearing hearing aids History of colon cancer dx 2016; treated surgically + oral chemo History of COVID-19 08/2020; asymptomatic -TESTED BY [facility] AT [facility] History of intestinal obstruction No recent issues History of TIA (transient ischemic attack) -"SHOWS 7 ON SCANS" PER PT-F/U History of TMJ disorder Occ jaw clicking - no jaw locking HTN (hypertension) On home oxygen therapy 2 LPM qHS- does not always use secondary to nasal dryness Prediabetes Diet controlled Temporomandibular joint disorder CLICKS NO LOCKING Surgical History H/O arthroscopic knee surgery mult BL H/O heart artery stent x 1 H/O toe surgery History of cardiac catheterization 2016 [facility] - 1 stent History of carpal tunnel surgery History of colonoscopy History of partial colectomy History of tonsillectomy and adenoidectomy S/P CABG x 5 1992 [facility] Neisha Family History Father Diabetes Esophagus cancer Stomach cancer Heart disease Other No family history of adverse response to anesthesia Social History Smoking Status: Never smoker Tobacco Type: Cigarettes Second Hand Exposure: Yes (FAMILY SMOKED); Do You Dip or Chew Tobacco: No (QUIT 30 YRS AGO); Hx Alcohol Use: Yes Alcohol type: hard liquor Hx Substance Use: No Preferred Language: Nepali Communication Ability: Effective Computer Operations Supervisor Required: No Beliefs That Will Affect Care: None marital status: Current Living Situation: Family current occupational status: retired Feels Safe at Home: Yes Assistive Devices: Cane and Oxygen - at Night Review of Systems Constitutional: no fever and no chills Eyes: no discharge and no worsening vision Ear, Nose, Mouth, Throat: no ear pain and no hearing loss Respiratory: no cough and no dyspnea Cardiovascular: no chest pain and no dyspnea on exertion Gastrointestinal: + abdominal pain, + nausea and + vomiting; no constipation, no diarrhea/loose stools, no blood in stools and no melena Genitourinary: no dysuria Musculoskeletal: no back pain and no neck pain Integumentary: no acne, no skin ulcer and no erythema Neurologic: no headache(s) Psychiatric: no behavioral changes and no depression Hematologic / Lymphatic: no easy bleeding and no easy bruising Physical Exam Constitutional: WD/WN, vitals as above Eyes: PERRL, conjunctivae normal, anicteric sclerae ENMT: external ear and nose normal, oropharynx normal Neck: trachea midline, no thyromegaly Respiratory: normal respiratory effort, lungs clear to auscultation Cardiovascular: RRR, no murmur, no edema Gastrointestinal (Abdomen): Inspection/Auscultation: abdomen normal to inspection and + abdomen distended Percussion/Palpation: + abdomen tender (Mild generalized) and abdomen soft; no guarding, abdomen not rigid and no hernia Musculoskeletal: no cyanosis or clubbing, extremities motor strength 5/5 Skin: no rashes, warm and dry Neurologic: PERRL, EOMI, accommodation nl, no face palsy, no dysarthria Psychiatric: A+Ox3, euthymic affect Results & Data Vital Signs (Past 12 Hours) Vital Signs Temp Pulse Pulse Resp BP BP Pulse Ox 01/16/23 08:19 63 18 96 01/16/23 08:19 63 18 147/94 H 96 01/16/23 08:16 63 01/16/23 07:41 36.4 C L 81 16 164/102 H 93 O2 Del Method 06/10/23 08:19 Room Air 01/16/23 08:19 Room Air 01/16/23 08:16 01/16/23 07:41 Room Air PG Care Time/CCT Total # of Minutes Spent Total Time Spent with Patient: Total time spent is greater than 50% in coordination of care (as documented) at patient's floor/unit and/or counseling patient: Coding Level of Care Code 78500 OFFICE CONSULT LVL Diagnoses SBO (small bowel obstruction) K56.609
[2023-01-16] MEDS ORDERED: ACETAMINOPHEN 1,000 MG/100 ML VIAL IV PRN (11:46)
[2023-01-16] MEDS ORDERED: ONDANSETRON INJ 2 MG/ML 2 ML VIAL IV PRN (11:46)
[2023-01-16] MEDS ORDERED: LORazepam 2 MG/1 ML VIAL IV PRN (12:02)
[2023-01-16] MEDS: ASPIRIN 81 MG ECTAB PO SCH ×2 (12:35→21:41)
[2023-01-16] MEDS: PANTOprazole 40 MG in SYRINGE 0 ML IV SCH (12:35)
[2023-01-16] MEDS: METOPROLOL SUCC 50MG EXT REL TAB PO SCH (12:36)
[2023-01-16] MEDS: NITROGLYCERIN 0.6 MG/HR PATCH TD SCH (12:36)
[2023-01-16] MEDS: SODIUM CHLORIDE 0.9% 1000ML 1,000 ML IV SCH (12:49)
[2023-01-16] MEDS: RANOLAZINE 500 MG ER TAB PO SCH ×2 (13:38→21:42)
[2023-01-16] MEDS: VALSARTAN/SACUBITRIL 26/24MG TAB PO SCH ×2 (13:38→21:42)
[2023-01-16] MEDS: CLOPIDOGREL BISULFATE 75 MG TAB PO SCH (13:38)
--- NOTE | 2023-01-16 14:08 | Cardiology Consultation ---
Date of Consultation January 16, 2023 Assessment & Plan (1) SBO (small bowel obstruction): (2) CAD (coronary artery disease), wiyot coronary artery: Plan Patient is a 72-year-old male admitted with recurrent small bowel obstruction. Underlying history of severe coronary disease with remote coronary bypass grafting, angina pectoris and compensated systolic and diastolic heart failure. Patient hospitalized in November 2022 with increasing anginal symptoms and underwent complex coronary intervention [facility] within the distal left internal mammary artery graft at its anastomosis point to the LAD with drug-eluting stent Recommendations: Continue prehospital medications if able to take p.o. Continue aspirin, administer per rectum if unable to take p.o. Goal continue clopidogrel but will hold in a.m. as surgical assessment continues. Patient in the past has responded to conservative therapy for small bowel obstruction. Surgery and discontinuation of antiplatelet therapy both at significant risk Currently hemodynamically stable Cardiology will follow History of Present Illness Reason for Consultation: Recurrent small bowel obstruction, ischemic heart disease Requesting Physician: Dr. Corbin Attending Physician: Gary Villarreal MD History of Present Illness Patient is a 72-year-old male with complex cardiac history with cardiac problem list as per outpatient record 12/22/2022 1. CAD (S/PCABG x5 VICTORIA-D1-LAD, TERRY-distal RCA, SVG-OM1, SVG-OMII [place] 06/1993) 1. History ofcomplex coronary anatomy, PCI and stenting of an SVG to OM1 graft in September 2016, at time of repeat cardiac catheterization performed October,, stent was patent with diffuse nonobstructive disease elsewhere for which ongoing medical management was recommended 2. Dyslipidemia with statin intolerance to agents including simvastatin, atorvastatin, and rosuvastatin, now on Praluent.Compliance encouraged. LDL improving 3. Hypertension - controlled 4. Acute STEMI 11/20/22 with cath revealing 90% stenosis of the VICTORIA to LAD anastomosis flown to [facility] for further intervention. Other severe wiyot vessel disease and 2 occluded vein grafts. On 11/24/22 patient received PRESTON to the VICTORIA- LAD anastomosis into the mid LAD with excellent results. 5. HFrEF with recent acute CHF exacerbation requiring hospitalization at [facility] December 2022. LVEF 45% 6. Intermittent LBBB Patient presents this admission with evidence of recurrent small bowel obstruction. Notes symptoms of abdominal bloating and distention nausea beginning yesterday consistent with past events. No cardiac complaints and overall cardiac status has been stable since stent implantation November, treatment of congestive heart failure December 2022. Anginal symptoms well controlled. No signs or symptoms of decompensated heart failure.Rare orthostasis. No fevers chills no bleeding difficulty Allergies Allergy/AdvReac Type Severity Reaction Status Date / Time Iodinated Contrast Media Allergy Severe Anaphylaxis Verified 01/17/21 05:54 Wjzsgcd-CAA-XuJ Reductase Allergy Unknown MUSCLE Verified 01/17/21 05:54 Inhibitor ACHES [Lhzarhv-Urz-Psf Reductase Inhibitor] Home Medications Medication Instructions Recorded Confirmed Type cholecalciferol (vitamin D3) 125 5,000 unit PO QAM 05/22/18 01/16/23 History mcg (5,000 unit) tablet (Vitamin D3) clopidogrel 75 mg tablet (Plavix) 75 mg PO QAM 05/22/18 01/16/23 History nitroglycerin 0.4 mg sublingual 0.4 mg sublingual UD PRN Chest Pain 05/22/18 01/16/23 History tablet (Nitrostat) terazosin 2 mg capsule 2 mg PO HS 05/22/18 01/16/23 History vitamin E 268 mg (400 unit) capsule 400 unit PO QAM 05/22/18 01/16/23 History pyridoxine (vitamin B6) 100 mg 100 mg PO QAM 12/06/20 01/16/23 History tablet (Vitamin B-6) fluocinonide 0.05 % topical cream 1 applic topical BID PRN Rash 12/31/20 01/16/23 History sertraline 100 mg tablet 150 mg PO DAILY 01/07/21 01/16/23 History aspirin 81 mg tablet,delayed 81 mg PO AMPM 01/10/21 01/16/23 History release fluticasone propionate 50 2 spray intranasal DAILY PRN Nasal 01/10/21 01/16/23 History mcg/actuation nasal Congestion spray,suspension Formulas Testosterone Cap 1 tab PO DAILY 12/16/22 01/16/23 History alirocumab 150 mg/mL subcutaneous 150 mg subcut .[id number] 12/16/22 01/16/23 History pen injector (Praluent Pen) allopurinol 300 mg tablet 150 mg PO QAM 12/16/22 01/16/23 History allopurinol 300 mg tablet 300 mg PO QPM 12/16/22 01/16/23 History amlodipine 10 mg tablet 10 mg PO QAM 12/16/22 01/16/23 History cyanocobalamin (vitamin B-12) 1,000 mcg PO DAILY 12/16/22 01/16/23 History 1,000 mcg tablet (Vitamin B-12) famotidine 20 mg tablet 20 mg PO BID PRN Acid Reflux 12/16/22 01/16/23 History metoprolol succinate 50 mg 50 mg PO QAM 12/16/22 01/16/23 History tablet,extended release 24 hr nitroglycerin 0.6 mg/hr 1 patch topical DAILY 12/16/22 01/16/23 History transdermal 24 hour patch pantoprazole 40 mg tablet,delayed 40 mg PO BID 12/16/22 01/16/23 History release ranolazine 500 mg tablet,extended 500 mg PO BID 12/16/22 01/16/23 History release,12 hr sacubitril 24 mg-valsartan 26 mg 1 tab PO BID #60 tabs 12/21/22 01/16/23 Rx tablet (Entresto) furosemide 20 mg tablet 20 mg PO DAILY PRN Edema 01/16/23 01/16/23 History Patient History Medical History Anxiety BPH (benign prostatic hyperplasia) BPH with obstruction/lower urinary tract symptoms CAD (coronary artery disease) "1992 - CABG x 5 09/2016 - PRESTON to SVG of 10/2016 - repeat cath, no lesions amenable to intervention, medical management recommended" Follows with Dr. Kaiser Chronic idiopathic thrombocytopenia F/U PCP Depression Dyslipidemia On injectable medications - cannot tolerate statins GERD (gastroesophageal reflux disease) Well controlled and stable with med Gout No current issues Hearing deficit BL DICKSON Has hearing aids - not wearing hearing aids History of colon cancer dx 2016; treated surgically + oral chemo History of COVID-19 08/2020; asymptomatic -TESTED BY [facility] AT [facility] History of intestinal obstruction No recent issues History of TIA (transient ischemic attack) -"SHOWS 7 ON SCANS" PER PT-F/U History of TMJ disorder Occ jaw clicking - no jaw locking HTN (hypertension) Nocturnal hypoxia On home oxygen therapy 2 LPM qHS- does not always use secondary to nasal dryness Prediabetes Diet controlled Temporomandibular joint disorder CLICKS NO LOCKING Surgical History H/O arthroscopic knee surgery mult BL H/O heart artery stent x 1 H/O toe surgery History of cardiac catheterization 2017 [facility] Neisha - 1 stent History of carpal tunnel surgery History of colonoscopy History of partial colectomy History of tonsillectomy and adenoidectomy S/P CABG x 5 1992 [facility] Neisha Family History Father Diabetes Esophagus cancer Stomach cancer Heart disease Other No family history of adverse response to anesthesia Social History Smoking Status: Former smoker Tobacco Type: Cigarettes Second Hand Exposure: Yes (FAMILY SMOKED); Do You Dip or Chew Tobacco: No (QUIT 30 YRS AGO); Hx Alcohol Use: Yes Alcohol type: hard liquor Hx Substance Use: No Preferred Language: Irish Communication Ability: Effective Athletic Coach Required: No Beliefs That Will Affect Care: None marital status: Current Living Situation: Alone Current Living Situation Comment: family has apartment underneath patients home current occupational status: retired Other Information That Helps Us Care for You: No Feels Safe at Home: Yes Safety Concerns: Feels Safe At This Time Assistive Devices: Glasses and Hearing Aid - Bilateral Assistive Devices Comment: Nasal Cannula 2L at night Physical Exam Constitutional: no acute distress Eyes: PERRL, conjunctivae normal, anicteric sclerae ENMT: external ear and nose normal, oropharynx normal Neck: trachea midline, no thyromegaly Respiratory: normal respiratory effort, lungs clear to auscultation Cardiovascular: Rate/Rhythm: regular rate and regular rhythm Vessels: ulnar pulses present; no JVD Extremities: no edema Gastrointestinal (Abdomen): Abdomen soft but mildly distended mild tenderness to palpation Results & Data Vital Signs (Past 12 Hours) Vital Signs Temp Pulse Pulse Resp BP BP Pulse Ox 01/16/23 11:27 36.5 C 61 16 148/81 H 96 01/16/23 10:00 57 L 18 131/81 90 01/16/23 09:30 60 12 130/82 93 01/16/23 09:00 66 20 136/85 98 01/16/23 08:30 63 15 146/87 H 97 01/16/23 08:19 63 18 96 06/10/23 08:19 63 18 147/94 H 96 01/16/23 08:16 63 01/16/23 07:41 36.4 C L 81 16 164/102 H 93 O2 Del Method 01/16/23 11:27 Room Air 01/16/23 10:00 Room Air 01/16/23 09:30 Room Air 01/16/23 09:00 Room Air 01/16/23 08:30 Room Air 01/16/23 08:19 Room Air 01/16/23 08:19 Room Air 01/16/23 08:16 01/16/23 07:41 Room Air Laboratory Results Laboratory Results - last 24 hr 01/16/23 01/16/23 01/16/23 08:14 08:14 08:14 WBC 6.09 RBC 4.71 Hgb 14.6 Hct 43.4 MCV 92.1 MCH 31.0 MCHC 33.6 RDW Std Deviation 53.9 H RDW Coeff of Long 15.9 H Plt Count 130 MPV 10.6 Immature Gran % (Auto) 0.2 Neut % (Auto) 82.1 Lymph % (Auto) 9.7 Gregg % (Auto) 5.7 Eos % (Auto) 1.6 Baso % (Auto) 0.7 Neut # (Auto) 5.00 Lymph # (Auto) 0.59 L Gregg # (Auto) 0.35 Eos # (Auto) 0.10 Baso # (Auto) 0.04 Immature Gran # (Auto) 0.01 Sodium 141 Potassium 4.2 Chloride 104 Carbon Dioxide 30 Anion Gap 7 BUN 25 H Creatinine 1.07 Est Cr Clr Drug Dosing Not Reportable Est GFR ( Amer) 80.0 Est GFR (Non-Af Amer) 69.0 BUN/Creatinine Ratio 23.4 H Glucose 140 H Calcium 9.8 Total Bilirubin 0.7 AST 25 ALT 21 Alkaline Phosphatase 43 Troponin I High Sens Total Protein 7.2 Albumin 4.8 Globulin 2.4 L Albumin/Globulin Ratio 2.0 Lipase 28 Urine Color Dark Yellow Urine Appearance Clear Urine pH 6.0 Ur Specific [place] 1.020 Urine Protein Trace H Urine Glucose (UA) Negative Urine Ketones 1+ H Urine Blood Negative Urine Nitrite Negative Urine Bilirubin Negative Urine Urobilinogen Negative Ur Leukocyte Esterase Negative Urine WBC (Auto) 1-5 Urine RBC (Auto) 0-4 U Hyaline Cast (Auto) 0 U Epithel Cells (Auto) 0-5 Urine Bacteria (Auto) Negative Hepatitis C Ab (EIA) Hep C Ab Signal/Cutoff SARS-CoV-2, RNA, NAAT 01/16/23 01/16/23 01/16/23 08:14 08:14 08:14 WBC RBC Hgb Hct MCV MCH MCHC RDW Std Deviation RDW Coeff of Long Plt Count MPV Immature Gran % (Auto) Neut % (Auto) Lymph % (Auto) Gregg % (Auto) Eos % (Auto) Baso % (Auto) Neut # (Auto) Lymph # (Auto) Gregg # (Auto) Eos # (Auto) Baso # (Auto) Immature Gran # (Auto) Sodium Potassium Chloride Carbon Dioxide Anion Gap BUN Creatinine Est Cr Clr Drug Dosing Est GFR ( Amer) Est GFR (Non-Af Amer) BUN/Creatinine Ratio Glucose Calcium Total Bilirubin AST ALT Alkaline Phosphatase Troponin I High Sens 9.8 Total Protein Albumin Globulin Albumin/Globulin Ratio Lipase Urine Color Urine Appearance Urine pH Ur Specific [place] Urine Protein Urine Glucose (UA) Urine Ketones Urine Blood Urine Nitrite Urine Bilirubin Urine Urobilinogen Ur Leukocyte Esterase Urine WBC (Auto) Urine RBC (Auto) U Hyaline Cast (Auto) U Epithel Cells (Auto) Urine Bacteria (Auto) Hepatitis C Ab (EIA) Pending Hep C Ab Signal/Cutoff Pending SARS-CoV-2, RNA, NAAT NEGATIVE 01/16/23 12:13 WBC RBC Hgb Hct MCV MCH MCHC RDW Std Deviation RDW Coeff of Long Plt Count MPV Immature Gran % (Auto) Neut % (Auto) Lymph % (Auto) Gregg % (Auto) Eos % (Auto) Baso % (Auto) Neut # (Auto) Lymph # (Auto) Gregg # (Auto) Eos # (Auto) Baso # (Auto) Immature Gran # (Auto) Sodium Potassium Chloride Carbon Dioxide Anion Gap BUN Creatinine Est Cr Clr Drug Dosing Est GFR ( Amer) Est GFR (Non-Af Amer) BUN/Creatinine Ratio Glucose Calcium Total Bilirubin AST ALT Alkaline Phosphatase Troponin I High Sens 9.2 Total Protein Albumin Globulin Albumin/Globulin Ratio Lipase Urine Color Urine Appearance Urine pH Ur Specific [place] Urine Protein Urine Glucose (UA) Urine Ketones Urine Blood Urine Nitrite Urine Bilirubin Urine Urobilinogen Ur Leukocyte Esterase Urine WBC (Auto) Urine RBC (Auto) U Hyaline Cast (Auto) U Epithel Cells (Auto) Urine Bacteria (Auto) Hepatitis C Ab (EIA) Hep C Ab Signal/Cutoff SARS-CoV-2, RNA, NAAT
[2023-01-16] MEDS ORDERED: VALSARTAN/SACUBITRIL 26/24MG TAB PO SCH (21:00)
[2023-01-16] MEDS ORDERED: RANOLAZINE 500 MG ER TAB PO SCH (21:00)
[2023-01-16] MEDS: TERAZOSIN HCL 1 MG CAP PO SCH (21:42)
[2023-01-16] MEDS: allopurinoL 300 MG TAB PO SCH (21:42)
[2023-01-17] MEDS: SODIUM CHLORIDE 0.9% 1000ML 1,000 ML IV SCH (02:26)
[2023-01-17 05:20] LABS: Hematocrit (blood only) 36.5 % (42.0-52.0); Mean Corpuscular Hemoglobin 31.2 pg (25.0-34.0); Mean Corpuscular Hgb Conc 32.9 g/dL (32.0-36.0); Mean Corpuscular Volume 94.8 fL (80.0-100.0); Mean Platelet Volume 10.5 fL (9.4-12.4); Platelet Count 103 K/uL (130-400); RDW Coefficient of Variation 16.5 % (11.5-14.5); RDW Standard Deviation 57.7 fL (36.4-46.3); Red Blood Count 3.85 M/uL (4.70-6.10); White Blood Count 4.16 K/ul (4.8-10.8)
[2023-01-17 05:42] LABS: Albumin Globulin Ratio 2.1 (0.9-2); Albumin Level 3.7 gm/dl (3.4-5.0); BUN Creatinine Ratio 18.3 (10-20); Bilirubin,Total 0.7 mg/dl (0.2-1.0); Calcium 8.3 mg/dl (8.6-10.3); Creatinine Clr Calc Pharmacy 67.1 ml/min; Est GFR (African American) 78.2 ml/min; Est GFR (Non-African American) 67.5 ml/min; Globulin 1.8 gm/dl (2.5-4.0); Potassium 4.1 mmol/L (3.5-5.1); Total Protein 5.5 gm/dl (6.0-8.3)
--- NOTE | 2023-01-17 07:29 | Electrocardiogram Report ---
Test Reason : Blood Pressure : / mmHG Vent. Rate : 064 BPM Atrial Rate : 064 BPM P-R Int : 232 ms QRS Dur : 112 ms QT Int : 440 ms P-R-T Axes : 067 026 147 degrees QTc Int : 453 ms Sinus rhythm with 1st degree A-V block Inferior infarct , age undetermined Abnormal ECG When compared with ECG of 18-DEC-2022 06:37, Left bundle branch block is no longer Present Inferior infarct is now Present Confirmed by Abdiaziz Cifuentes ([id number]) on 01/17/2023 7:29:00 AM Referred By: REFERRED SELF Confirmed By:Reinaldo Cifuentes
--- NOTE | 2023-01-17 07:40 | Electrocardiogram Report ---
Test Reason : Blood Pressure : / mmHG Vent. Rate : 057 BPM Atrial Rate : 057 BPM P-R Int : 226 ms QRS Dur : 110 ms QT Int : 454 ms P-R-T Axes : 065 016 262 degrees QTc Int : 441 ms Sinus bradycardia with 1st degree A-V block Inferior infarct (cited on or before 16-JAN-2023) Abnormal ECG When compared with ECG of 16-JAN-2023 08:11, No significant change was found Confirmed by Abdiaziz Cifuentes ([id number]) on 01/17/2023 7:40:11 AM Referred By: REFERRED SELF Confirmed By:Reinaldo Cifuentes
[2023-01-17] MEDS ORDERED: CLOPIDOGREL BISULFATE 75 MG TAB PO SCH (09:00)
[2023-01-17] MEDS ORDERED: amLODIPine BESYLATE 5 MG TAB PO SCH (09:00)
--- NOTE | 2023-01-17 09:28 | Surgery Progress Note ---
Date of Service January 17, 2023 Assessment & Plan (1) SBO (small bowel obstruction): Plan: Small bowel obstruction- doing better this AM. He denies abdominal pain, denies nausea or vomiting. He continues to pass flatus and is moving his bowels. Cardiology consult yesterday states that patient is a very poor surgical candidate due to cardiac history. Will continue conservative measures as he does appear to be improving. Will advance diet to clear liquids. General Surgery will continue to follow. Patient seen and examined with Dr. David. Admission and Anticipated Discharge Date Admission Date: January 16, 2023 Supervising Physician Co-Signing Physician Notes I personally saw and evaluated the patient with Samuel Wharton PA-C and agree with the assessment and plan. 72-year-old male status post open sigmoid colectomy in 2013 for colon cancer, here with small bowel obstruction He did have 4 bowel movements yesterday and has resolution of his abdominal pain He denies any nausea, will trial clear liquids today Cardiology did see him and stated he was a very high risk for any surgical intervention due to his recent ND and stent placement We will continue to follow Subjective Patient resting in bed, denies abdominal pain. Reports that he had 4 bowel movements yesterday. He is passing gas. He feels somewhat hungry. He denies nausea or vomiting. Review of Systems Constitutional: no fever and no chills Gastrointestinal: no abdominal pain, no nausea and no vomiting Physical Exam Constitutional: WD/WN, vitals as above Eyes: PERRL, conjunctivae normal, anicteric sclerae ENMT: external ear and nose normal, oropharynx normal Neck: trachea midline, no thyromegaly Respiratory: normal respiratory effort, lungs clear to auscultation Cardiovascular: RRR, no murmur, no edema Gastrointestinal (Abdomen): Inspection/Auscultation: abdomen normal to inspection and + abdomen distended Percussion/Palpation: + abdomen tender (Mild generalized) and abdomen soft; no guarding, abdomen not rigid and no hernia Musculoskeletal: no cyanosis or clubbing, extremities motor strength 5/5 Skin: no rashes, warm and dry Neurologic: PERRL, EOMI, accommodation nl, no face palsy, no dysarthria Psychiatric: A+Ox3, euthymic affect Results & Data Vital Signs (Past 12 Hours) Vital Signs Temp Pulse Pulse Resp BP Pulse Ox O2 Del Method 01/17/23 08:18 36.5 C 56 L 19 129/80 95 Room Air 01/17/23 07:25 50 L 01/17/23 03:00 36.8 C 60 17 97/61 L 93 Room Air 01/17/23 00:00 60 01/16/23 23:00 36.5 C 57 L 19 100/64 93 Room Air PG Care Time/CCT Total # of Minutes Spent Total Time Spent with Patient: Total time spent is greater than 50% in coordination of care (as documented) at patient's floor/unit and/or counseling patient: Coding Level of Care Code 44047 SUB INP/OBS CARE 09/02MIN Diagnoses SBO (small bowel obstruction) K56.609
[2023-01-17] MEDS: ASPIRIN 81 MG ECTAB PO SCH ×2 (09:35→21:22)
[2023-01-17] MEDS: SERTRALINE HCL 50 MG TABLET PO SCH (09:35)
[2023-01-17] MEDS: RANOLAZINE 500 MG ER TAB PO SCH ×2 (09:35→21:22)
[2023-01-17] MEDS: allopurinoL 300 MG TAB PO SCH ×2 (09:36→21:22)
[2023-01-17] MEDS: CLOPIDOGREL BISULFATE 75 MG TAB PO SCH (09:36)
[2023-01-17] MEDS: VALSARTAN/SACUBITRIL 26/24MG TAB PO SCH ×2 (09:36→21:22)
[2023-01-17] MEDS: METOPROLOL SUCC 50MG EXT REL TAB PO SCH (09:40)
[2023-01-17] MEDS: NITROGLYCERIN 0.6 MG/HR PATCH TD SCH (09:42)
[2023-01-17] MEDS: PANTOprazole 40 MG in SYRINGE 0 ML IV SCH (11:33)
--- NOTE | 2023-01-17 12:54 | Hospitalist Progress Note ---
Date of Service January 17, 2023 Assessment & Plan (1) SBO (small bowel obstruction): Plan: Patient is 72-year-old male with PMH HTN, CAD s/p stents, CABG, systolic diastolic CHF, history of colon cancer s/p sigmoidectomy in 2013, alcohol use, LBBB, GERD, BPH, depression, gout, history of splenomegaly, history of recurrent SBO's presented to ER with complaint of abdominal pain x [address] 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 Although nonspecific, this hypodensity likely reflects an acute to subacute splenic infarct. Stable splenomegaly. 3.1 cm infrarenal abdominal aortic aneurysm. Patient denies recent/recurrent abdominal pain other than abdominal pain x1 day as above. No fever no chills. No leukocytosis, normal lipase. Monitor Conservative management currently with patient's recent cardiac history Monitor for any cardiac arrhythmias (3) Abnormal EKG: Plan: EK, sinus rhythm first AV block, Q waves inferior leads, ST depression lateral leads. Comparison with EKG 12/18/[address]-T changes of lateral leads. EKG 11/20/[address]-T wave changes of lateral leads with T wave inversion Patient without chest pain, shortness of breath High-sensitivity troponin: 9.8, 9.2 Discussed with cardiology; continue current meds. (4) CAD (coronary artery disease), redding coronary artery: Plan: S/p stents, CABG Most recent stent placement November 2022 with stent to LAD Continue aspirin, Plavix, metoprolol succinate, Ranexa, Nitropatch Is on Praluent secondary to intolerance to statins (5) CHF (congestive heart failure): Plan: History of combined heart failure. Recent exacerbation 2 weeks ago 12/16/2022 echo: EF: 45-50%, moderate size septal, inferior, posterior wall motion abnormality with hypokinesis to akinesis of the segments. lasix currently on hold (6) Alcohol use: Plan: Reports for drinks whiskey daily. Denies alcohol withdrawal in past Monitor for alcohol withdrawal Ativan as needed (7) History of colon cancer: Plan: S/p sigmoidectomy (8) HTN (hypertension): Plan: Continue amlodipine, metoprolol succinate (9) GERD (gastroesophageal reflux disease): Plan: Currently on IV Protonix (10) Gout: Plan: Continue allopurinol (11) BPH (benign prostatic hyperplasia): Plan: Continue terazosin (12) Nocturnal hypoxia: Plan: Continue 2 L O2 at bedtime DVT Prophylaxis SCDs for now Full Code as per discussion with pt Follows with Dr Suarez for routine care Time spent evaluating patient, direct bedside care, chart review, placing orders, interpretation of diagnostic studies, discussion with consultants, patient, and family members, as well as other required patient management activities is 60 minutes Please note the above document was generated using voice recognition software. It may contain grammatical, syntax or spelling errors. Any formal questions or concerns about the content, text or information contained within the body of this dictation should be directly addressed to the provider for clarification Admission and Anticipated Discharge Date Admission Date: January 16, 2023 Subjective Patient seen and examined at bedside. He is comfortably sitting up on the bed; not in distress. Reports multiple bowel movement yesterday. Review of Systems Review of Systems: All systems reviewed & are unremarkable except as noted in Subjective Physical Exam Physical Exam: General: no distress, overweight Head: normocephalic, atraumatic Eyes: conjunctiva non-injected, anicteric ENT: normal inspection external ears, nose, mucous membranes dry Neck: supple, trachea midline Lungs: clear, no respiratory distress, no wheezing/rhonchi/rales CV: RRR, no murmur, no pretibial edema Abd: Soft, nontender Ext: no cyanosis, no calf tenderness Neuro: A&O x 3, no focal deficits noted, normal affect Skin: warm, dry Results & Data Results & Data Vital Signs (Past 12 Hours) Vital Signs Temp Pulse Pulse Resp BP Pulse Ox O2 Del Method 01/17/23 11:47 36.7 C 59 L 20 129/79 93 Room Air 01/17/23 08:18 36.5 C 56 L 19 129/80 95 Room Air 01/17/23 07:25 50 L 01/17/23 03:00 36.8 C 60 17 97/61 L 93 Room Air Laboratory Results Laboratory Results WBC 4.16 K/ul (4.8-10.8) L 01/17/23 04:56 RBC 3.85 M/uL (4.70-6.10) L 01/17/23 04:56 Hgb 12.0 g/dl (14.0-18.0) L 01/17/23 04:56 Hct 36.5 % (42.0-52.0) L 01/17/23 04:56 MCV 94.8 fL (80.0-100.0) 01/17/23 04:56 MCH 31.2 pg (25.0-34.0) 01/17/23 04:56 MCHC 32.9 g/dL (32.0-36.0) 01/17/23 04:56 RDW Std Deviation 57.7 fL (36.4-46.3) H 01/17/23 04:56 RDW Coeff of Long 16.5 % (11.5-14.5) H 01/17/23 04:56 Plt Count 103 K/uL (130-400) L 01/17/23 04:56 MPV 10.5 fL (9.4-12.4) 01/17/23 04:56 Immature Gran % (Auto) 0.2 % 01/16/23 08:14 Neut % (Auto) 82.1 % 01/16/23 08:14 Lymph % (Auto) 9.7 % 01/16/23 08:14 [place] % (Auto) 5.7 % 01/16/23 08:14 Eos % (Auto) 1.6 % 01/16/23 08:14 Baso % (Auto) 0.7 % 01/16/23 08:14 Neut # (Auto) 5.00 K/uL (1.40-6.50) 01/16/23 08:14 Lymph # (Auto) 0.59 K/uL (1.2-3.4) L 01/16/23 08:14 [place] # (Auto) 0.35 K/uL (0.11-0.59) 01/16/23 08:14 Eos # (Auto) 0.10 K/uL (0-0.50) 01/16/23 08:14 Baso # (Auto) 0.04 K/uL (0-0.2) 01/16/23 08:14 Immature Gran # (Auto) 0.01 K/uL (0.01-0.20) 01/16/23 08:14 Sodium 142 mmol/L (136-145) 01/17/23 04:56 Potassium 4.1 mmol/L (3.5-5.1) 01/17/23 04:56 Chloride 110 mmol/L (98-107) H 01/17/23 04:56 Carbon Dioxide 26 mmol/L (21-32) 01/17/23 04:56 Anion Gap 6 (3-11) 01/17/23 04:56 BUN 20 mg/dl (6-23) 01/17/23 04:56 Creatinine 1.09 mg/dl (0.6-1.4) 01/17/23 04:56 Est Cr Clr Drug Dosing 67.1 ml/min 01/17/23 04:56 Est GFR ( Amer) 78.2 ml/min 01/17/23 04:56 Est GFR (Non-Af Amer) 67.5 ml/min 01/17/23 04:56 BUN/Creatinine Ratio 18.3 (10-20) 01/17/23 04:56 Glucose 91 mg/dl (70-99(Fasting)) 01/17/23 04:56 Calcium 8.3 mg/dl (8.6-10.3) L 01/17/23 04:56 Total Bilirubin 0.7 mg/dl (0.2-1.0) 01/17/23 04:56 AST 17 U/L (13-39) 01/17/23 04:56 ALT 15 U/L (7-52) 01/17/23 04:56 Alkaline Phosphatase 35 U/L (34-104) 01/17/23 04:56 Troponin I High Sens 9.2 pg/ml (0-20) 01/16/23 12:13 Total Protein 5.5 gm/dl (6.0-8.3) L D 01/17/23 04:56 Albumin 3.7 gm/dl (3.4-5.0) 01/17/23 04:56 Globulin 1.8 gm/dl (2.5-4.0) L 01/17/23 04:56 Albumin/Globulin Ratio 2.1 (0.9-2) H 01/17/23 04:56 Lipase 28 U/L (11-82) 01/16/23 08:14 Urine Color Dark Yellow 01/16/23 08:14 Urine Appearance Clear (Clear) 01/16/23 08:14 Urine pH 6.0 (4.5-7.5) 01/16/23 08:14 Ur Specific [place] 1.020 (1.000-1.030) 01/16/23 08:14 Urine Protein Trace (Negative) H 01/16/23 08:14 Urine Glucose (UA) Negative (Negative) 01/16/23 08:14 Urine Ketones 1+ (Negative) H 01/16/23 08:14 Urine Blood Negative (Negative) 01/16/23 08:14 Urine Nitrite Negative (Negative) 01/16/23 08:14 Urine Bilirubin Negative (Negative) 01/16/23 08:14 Urine Urobilinogen Negative (Negative) 01/16/23 08:14 Ur Leukocyte Esterase Negative (Negative) 01/16/23 08:14 Urine WBC (Auto) 1-5 /hpf (0-5) 01/16/23 08:14 Urine RBC (Auto) 0-4 /hpf (0-4) 01/16/23 08:14 U Hyaline Cast (Auto) 0 /lpf (0-5) 01/16/23 08:14 U Epithel Cells (Auto) 0-5 /lpf (0-5) 01/16/23 08:14 Urine Bacteria (Auto) Negative (Negative) 01/16/23 08:14 SARS-CoV-2, RNA, NAAT NEGATIVE (NEGATIVE) 01/16/23 08:14 Impressions Abdomen/Pelvis CT 01/16/23 07:52 CT OF THE ABDOMEN AND PELVIS WITHOUT CONTRAST CLINICAL HISTORY: abd pain hx sbo colectomy in past,?sbo COMPARISON STUDY: CT of the abdomen and pelvis December 04, 2020. KUB March 03, 2022. TECHNIQUE: Axial images of the abdomen and pelvis were obtained without IV contrast. Images were reviewed in the axial, sagittal, and coronal planes. Automated exposure control was utilized for the study. A dose lowering technique was utilized adhering to the principles of ALARA. FINDINGS: Lung bases are unremarkable. No pneumatosis, free air or portal venous gas is present. Multiple small bilateral renal calculi measure up to 3 mm. There are no ureteral calculi. There is no hydronephrosis. Evaluation of the remainder of the abdomen and pelvis is suboptimal on this unenhanced exam. There is hepatic steatosis. Mild splenomegaly is unchanged since CT of December 04, 2020. 5.2 x 4 cm wedge-shaped hypodensity within the spleen is new since prior exam. There is associated minimal perisplenic stranding and fluid. A small amount of fluid extends into the left paracolic gutter. Unenhanced images of the adrenal glands and pancreas are unremarkable. 3.1 cm infrarenal abdominal aortic aneurysm is noted. Caliber has minimally increased since prior CT. No evidence for rupture. Sigmoid resection is noted. There is colonic diverticulosis without evidence for acute diverticulitis. The appendix is normal. The proximal to mid small bowel is moderately dilated and fluid-filled. Transition point within the mid ileum within the anterior abdomen on axial image 201 of 341 is noted. Small bowel feces sign is noted. Distal small bowel is decompressed. Minimal associated mesenteric stranding is present. No lymphadenopathy is present. There is no fluid collection. No acute fractures. IMPRESSION: 1. Findings consistent with a small bowel obstruction, as described above. 2. 5.2 x 4 cm wedge-shaped hypodensity within the spleen with a small amount of associated perisplenic fluid and stranding. Although nonspecific, this hypodensity likely reflects an acute to subacute splenic infarct. 3. Stable splenomegaly. 4. Bilateral nephrolithiasis. No ureteral calculi or hydronephrosis. 5. 3.1 cm infrarenal abdominal aortic aneurysm. ACT 112: Negative or not required by law. Electronically signed by: Marcel Chacon M.D. 01/16/2023 9:21 AM (5) CHF (congestive heart failure) Heart failure chronicity: acute Heart failure type: unspecified Qualified Code(s): I50.9 - Heart failure, unspecified
--- NOTE | 2023-01-17 13:02 | XRay Report ---
XR KUB/Abdomen 1 view CLINICAL HISTORY: SBO TECHNIQUE: 1 view of the abdomen was obtained. Comparison: None available at the time of this dictation. FINDINGS: Calcific densities compatible with nephrolithiasis are unchanged from prior exam. No ureteral or pelv ic stones are seen. Degenerative changes are seen in the visualized skeleton. The bowel gas pattern i s nonobstructive. A moderate amount of stool is noted within the large bowel. IMPRESSION: Stable nephrolithiasis as above. ACT 112: Negative or not required by law. Electronically signed by: Terry Shine M.D. 01/17/2023 1:01 PM
--- NOTE | 2023-01-17 14:52 | Cardiology Progress Note ---
Date of Service January 17, 2023 Assessment & Plan (1) SBO (small bowel obstruction): (2) CAD (coronary artery disease), robinson coronary artery: Plan Patient is a 72-year-old male admitted with recurrent small bowel obstruction. Underlying history of severe coronary disease with remote coronary bypass grafting, angina pectoris and compensated systolic and diastolic heart failure. Patient hospitalized in November 2022 with increasing anginal symptoms and underwent complex coronary intervention [facility] within the distal left internal mammary artery graft at its anastomosis point to the LAD with drug-eluting stent Recommendations: Continue prehospital medications . Currently hemodynamically stable Cardiology will follow Admission and Anticipated Discharge Date Admission Date: January 16, 2023 Subjective Patient seen and examined. Feels improved this morning. Bowel movement yesterday no longer abdominal distention or pain. No chest pains or shortness of breath. No dizziness or lightheadedness. Review of Systems Review of Systems: All systems reviewed & are unremarkable except as noted in Subjective Physical Exam Constitutional: no acute distress Eyes: PERRL, conjunctivae normal, anicteric sclerae ENMT: external ear and nose normal, oropharynx normal Neck: trachea midline, no thyromegaly Respiratory: normal respiratory effort, lungs clear to auscultation Cardiovascular: Rate/Rhythm: regular rate, regular rhythm and + irregularly irregular Vessels: ulnar pulses present; no JVD Extremities: no edema Gastrointestinal (Abdomen): Percussion/Palpation: abdomen soft; abdomen nontender Results & Data Vital Signs (Past 12 Hours) Vital Signs Temp Pulse Pulse Resp BP Pulse Ox O2 Del Method 01/17/23 11:47 36.7 C 59 L 20 129/79 93 Room Air 01/17/23 08:18 36.5 C 56 L 19 129/80 95 Room Air 01/17/23 07:25 50 L 01/17/23 03:00 36.8 C 60 17 97/61 L 93 Room Air Laboratory Results Laboratory Results - last 24 hr 01/17/23 01/17/23 04:56 04:56 WBC 4.16 L RBC 3.85 L Hgb 12.0 L Hct 36.5 L MCV 94.8 MCH 31.2 MCHC 32.9 RDW Std Deviation 57.7 H RDW Coeff of Long 16.5 H Plt Count 103 L MPV 10.5 Sodium 142 Potassium 4.1 Chloride 110 H Carbon Dioxide 26 Anion Gap 6 BUN 20 Creatinine 1.09 Est Cr Clr Drug Dosing 67.1 Est GFR ( Amer) 78.2 Est GFR (Non-Af Amer) 67.5 BUN/Creatinine Ratio 18.3 Glucose 91 Calcium 8.3 L Total Bilirubin 0.7 AST 17 ALT 15 Alkaline Phosphatase 35 Total Protein 5.5 L D Albumin 3.7 Globulin 1.8 L Albumin/Globulin Ratio 2.1 H
[2023-01-17] MEDS ORDERED: diphenhydrAMINE Capsule 25 MG CAP PO ONE (21:00)
[2023-01-17] MEDS: TERAZOSIN HCL 1 MG CAP PO SCH (21:22)
[2023-01-18 06:12] LABS: Basophils # (auto) 0.02 K/uL (0-0.2); Basophils % (auto) 0.6 %; Eosinophils # (auto) 0.13 K/uL (0-0.50); Hematocrit (blood only) 38.3 % (42.0-52.0); Hemoglobin 12.7 g/dl (14.0-18.0); Immature Granulocytes # (auto) 0.01 K/uL (0.01-0.20); Immature Granulocytes % (auto) 0.3 %; Lymphocytes # (auto) 0.66 K/uL (1.2-3.4); Lymphocytes % (auto) 20.6 %; Mean Corpuscular Hemoglobin 30.8 pg (25.0-34.0); Mean Corpuscular Hgb Conc 33.2 g/dL (32.0-36.0); Mean Platelet Volume 10.6 fL (9.4-12.4); Monocytes # (auto) 0.26 K/uL (0.11-0.59); Monocytes % (auto) 8.1 %; Neutrophils # (auto) 2.13 K/uL (1.40-6.50); Neutrophils % (auto) 66.4 %; Platelet Count 107 K/uL (130-400); RDW Coefficient of Variation 16.2 % (11.5-14.5); RDW Standard Deviation 55.3 fL (36.4-46.3); Red Blood Count 4.12 M/uL (4.70-6.10); White Blood Count 3.21 K/ul (4.8-10.8)
[2023-01-18 06:31] LABS: BUN Creatinine Ratio 10.5 (10-20); Calcium 8.8 mg/dl (8.6-10.3); Creatinine Clr Calc Pharmacy 63.7 ml/min; Est GFR (African American) 74.1 ml/min; Est GFR (Non-African American) 63.9 ml/min
[2023-01-18] MEDS: NITROGLYCERIN 0.6 MG/HR PATCH TD SCH (08:34)
[2023-01-18] MEDS: CLOPIDOGREL BISULFATE 75 MG TAB PO SCH (08:34)
[2023-01-18] MEDS: ASPIRIN 81 MG ECTAB PO SCH (08:34)
[2023-01-18] MEDS: RANOLAZINE 500 MG ER TAB PO SCH (08:34)
[2023-01-18] MEDS: VALSARTAN/SACUBITRIL 26/24MG TAB PO SCH (08:34)
[2023-01-18] MEDS: allopurinoL 300 MG TAB PO SCH (08:35)
[2023-01-18] MEDS: SERTRALINE HCL 50 MG TABLET PO SCH (08:35)
[2023-01-18] MEDS: METOPROLOL SUCC 50MG EXT REL TAB PO SCH (08:35)
[2023-01-18] MEDS ORDERED: MAGNESIUM HYDROXIDE SUSP 30 ML UDC PO ONE (09:39)
[2023-01-18] MEDS ORDERED: bisacodyL 10 MG SUPP PR ONE (10:19)
--- NOTE | 2023-01-18 10:21 | Surgery Progress Note ---
Date of Service January 18, 2023 Assessment & Plan (1) SBO (small bowel obstruction): Plan: His KUB images and results were personally viewed by myself He has no dilated small bowel and some stool throughout his colon He tolerated his clear liquids, can advance as tolerated We will give a one-time dose of Dulcolax suppository to see if this stimulates his bowels from below If he tolerates his diet he could likely be discharged from a surgical standpoint We will follow Admission and Anticipated Discharge Date Admission Date: January 16, 2023 Subjective Patient seen and examined. Still passing flatus but no bowel movement recently. He denies any nausea or vomiting. Review of Systems 2 Constitutional: no fever and no chills Physical Exam Constitutional: WD/WN, vitals as above Gastrointestinal (Abdomen): Inspection/Auscultation: abdomen normal to inspection; abdomen not distended Percussion/Palpation: abdomen soft; abdomen nontender and no guarding Results & Data Vital Signs (Past 12 Hours) Vital Signs Temp Pulse Pulse Resp BP Pulse Ox O2 Del Method 01/18/23 08:22 36.6 C 58 L 19 153/87 H 94 Room Air 01/18/23 03:02 36.7 C 57 L 18 130/72 93 Room Air 01/17/23 23:20 36.7 C 55 L 18 148/78 H 94 Room Air 01/17/23 23:12 57 L PG Care Time/CCT Total # of Minutes Spent Total Time Spent with Patient: Total time spent is greater than 50% in coordination of care (as documented) at patient's floor/unit and/or counseling patient: Coding Level of Care Code 62978 SUB INP/OBS CARE 09/02MIN Diagnoses SBO (small bowel obstruction) K56.609
[2023-01-18] MEDS: PANTOprazole 40 MG in SYRINGE 0 ML IV SCH (10:49)
--- NOTE | 2023-01-18 12:45 | Cardiology Progress Note ---
Date of Service January 18, 2023 Assessment & Plan (1) SBO (small bowel obstruction): (2) CAD (coronary artery disease), [place] coronary artery: Plan Patient is a 72-year-old male admitted with recurrent small bowel obstruction. Underlying history of severe coronary disease with remote coronary bypass grafting, angina pectoris and compensated systolic and diastolic heart failure. Patient hospitalized in November 2022 with increasing anginal symptoms and underwent complex coronary intervention [facility] within the distal left internal mammary artery graft at its anastomosis point to the LAD with drug-eluting stent Recommendations: Continue prehospital medications . Currently hemodynamically stable Cardiology will follow SBO resolving without surgical intervention. Advance diet as tolera deja per surgery. Case discussed with Dr. Kaiser I spent a total of 25 minutes on the date of service in preparation, delivery, and documentation of the care provided to this patient, excluding any time spent in the performance of separately billed services. Maria Del Carmen Sam PA-C Department of Cardiology, [facility] This chart was completed in part utilizing Speech Voice Recognition Software. Grammatical errors, random word insertions, pronoun errors, and incomplete sentences are an occasional consequence of this system due to software limitations, ambient noise, and hardware issues. Any formal questions or concerns about the content, text, or information contained within the body of this dictation should be directly addressed to the provider for clarification. Admission and Anticipated Discharge Date Admission Date: January 16, 2023 Supervising Physician Co-Signing Physician Notes Supervising Physician Attestation: I have personally performed a history and physical examination on the patient. I agree with the physician housing assistant's findings and plan as documented with the following additions. Subjective: Patient without complaint at present. Abdominal pain improved and is tolerating a liquid diet. Telemetry reveals sinus rhythm and bradycardia in the 50s to 60s. Exam: Cardiovascular regular rhythm, no murmurs, no edema Data: EKG performed 01/17/2023 and interpreted independently: Sinus bradycardia 57 bpm with first-degree AV block, chronic lateral repolarization changes. Assessment and Plan: Small bowel obstruction Chronic coronary heart disease with recent complex coronary intervention via the left internal mammary artery Chronic heart failure with mildly reduced ejection fraction -Plan status well compensated. No angina. Continue chronic aspirin and clopidogrel. DVT prophylaxis: Recommend SCDs, ambulate as tolerated Genaro Kaiser, Subjective Patient resting in bed this morning. Notes mild lower abdominal pressure this morning. No BM yet today. Per Surgery, advancing diet today. He denies cardiac complaints. no chest pain or dyspnea. no palpitations. Review of Systems Review of Systems: All systems reviewed & are unremarkable except as noted in HPI & below Physical Exam Constitutional: no acute distress Eyes: PERRL, conjunctivae normal, anicteric sclerae ENMT: external ear and nose normal, oropharynx normal Neck: trachea midline, no thyromegaly Respiratory: normal respiratory effort, lungs clear to auscultation Cardiovascular: Rate/Rhythm: regular rate, regular rhythm and + irregularly irregular Vessels: ulnar pulses present; no JVD Extremities: no edema Gastrointestinal (Abdomen): Percussion/Palpation: abdomen soft; abdomen nontender Results & Data Vital Signs (Past 12 Hours) Vital Signs Temp Pulse Pulse Resp BP Pulse Ox O2 Del Method 01/18/23 12:26 36.7 C 56 L 19 131/82 94 Room Air 01/18/23 11:13 58 L 01/18/23 08:22 36.6 C 58 L 19 153/87 H 94 Room Air 01/18/23 03:02 36.7 C 57 L 18 130/72 93 Room Air Laboratory Results CBC 01/18/23 Range/Units 05:45 WBC 3.21 L (4.8-10.8) K/ul RBC 4.12 L (4.70-6.10) M/uL Hgb 12.7 L (14.0-18.0) g/dl Hct 38.3 L (42.0-52.0) % Plt Count 107 L (130-400) K/uL Neut # (Auto) 2.13 (1.40-6.50) K/uL Lymph # (Auto) 0.66 L (1.2-3.4) K/uL [place] # (Auto) 0.26 (0.11-0.59) K/uL Eos # (Auto) 0.13 (0-0.50) K/uL Baso # (Auto) 0.02 (0-0.2) K/uL Comprehensive Metabolic Panel 01/18/23 Range/Units 05:45 Sodium 142 (136-145) mmol/L Potassium 4.0 (3.5-5.1) mmol/L Chloride 107 (98-107) mmol/L Carbon Dioxide 31 (21-32) mmol/L BUN 12 (6-23) mg/dl Creatinine 1.14 (0.6-1.4) mg/dl Glucose 96 (70-99(Fasting)) mg/dl Calcium 8.8 (8.6-10.3) mg/dl Intake and Output 01/17/23 01/18/23 01/18/23 22:59 06:59 14:59 Intake Total 200 / 960 100 / 960 Balance 200 / 960 100 / 960 Intake: Oral 200 / 300 100 / 300 Other: Weight 89.6 kg Diagnostic Findings Telemetry reviewed: NSR in the 60's. No concerning arrhythmias Medications Administered Current Inpatient Medications Allopurinol (Allopurinol 300 Mg Tab) 150 mg PO [facility] Stop: 02/16/23 08:59 Last Admin: 01/18/23 08:35 Dose: 150 mg Allopurinol (Allopurinol 300 Mg Tab) 300 mg PO QPM [facility] Stop: 02/15/23 20:59 Last Admin: 01/17/23 21:22 Dose: 300 mg Amlodipine Besylate (Amlodipine Besylate 5 Mg Tab) 10 mg PO [facility] Stop: 02/16/23 08:59 Aspirin (Aspirin 81 Mg Ectab) 81 mg PO BID [facility] Stop: 02/15/23 11:45 Last Admin: 01/18/23 08:34 Dose: 81 mg Clopidogrel Bisulfate (Clopidogrel Bisulfate 75 Mg Tab) 75 mg PO [facility] Stop: 02/15/23 12:49 Last Admin: 01/18/23 08:34 Dose: 75 mg Acetaminophen (Ofirmev) 1,000 mg in 100 mls @ 400 mls/hr IV Q8H PRN PRN Reason: Mild-Mod Pain (Scale 1-6) Stop: 01/19/23 11:45 Pantoprazole Sodium 40 mg/ (Syringe) 10 mls @ 5 mls/min IV DAILY@1100 [facility] Stop: 02/15/23 11:45 Last Admin: 01/18/23 10:49 Dose: 5 mls/min Lorazepam (Lorazepam 2 Mg/1 Ml Vial) 1 mg IV ONE PRN; Protocol PRN Reason: EtoH Withdrawal AWSS 6,7,8,9,10 Metoprolol Succinate (Metoprolol Succ 50mg Ext Rel Tab) 50 mg PO [facility] Stop: 02/15/23 11:45 Last Admin: 01/18/23 08:35 Dose: 50 mg Miscellaneous (Remove Nitro-Dur Patch) 1 each N/A DAILY@2100 [facility] Stop: 02/15/23 12:05 Last Admin: 01/17/23 21:22 Dose: 1 each Morphine Sulfate (Morphine Sulfate 4 Mg/Ml 1 Ml Carp\Vial) 3 mg IV Q4H PRN PRN Reason: Severe Pain (Scale 7, 8, 9,10) Stop: 01/30/23 11:45 Nitroglycerin (Nitroglycerin 0.6 Mg/Hr Patch) 1 patch TD DAILY [facility] Stop: 02/15/23 11:45 Last Admin: 01/18/23 08:34 Dose: 1 patch Ondansetron HCl (Ondansetron Inj 2 Mg/Ml 2 Ml Vial) 4 mg IV Q6H PRN PRN Reason: Nausea Stop: 02/15/23 11:45 Ranolazine (Ranolazine 500 Mg Er Tab) 500 mg PO BID [facility] Stop: 02/15/23 12:49 Last Admin: 01/18/23 08:34 Dose: 500 mg Sacubitril/Valsartan (Valsartan/Sacubitril 26/24mg Tab) 1 tab PO BID [facility] Stop: 02/15/23 12:49 Last Admin: 01/18/23 08:34 Dose: 1 tab Sertraline HCl (Sertraline Hcl 50 Mg Tablet) 150 mg PO DAILY [facility] Stop: 02/16/23 08:59 Last Admin: 01/18/23 08:35 Dose: 150 mg Terazosin HCl (Terazosin Hcl 1 Mg Cap) 2 mg PO HS [facility] Stop: 02/15/23 20:59 Last Admin: 01/17/23 21:22 Dose: 2 mg
--- NOTE | 2023-01-18 14:01 | Discharge Summary ---
Date of Service January 18, 2023 Admission HPI Per Admitting Provider Patient is 72-year-old male with PMH HTN, CAD s/p stents, CABG, systolic diastolic CHF, history of colon cancer s/p sigmoidectomy in 2013, alcohol use, LBBB, GERD, BPH, depression, gout, history of splenomegaly, history of recurrent SBO's presented to ER with complaint of abdominal pain x 1 day. Patient with history recent hospitalization 12/16/2022-12/21/2022 for CHF was diuresed with Lasix and discharged on Entresto. Patient states since being home has not noticed any increased edema and has not had any shortness of breath. Also recent history on 11/20/2022 had STEMI and [place] [facility] [place] placement [facility]. Patient states ate lunch hamburger and [place] sprouts at 10:30 AM yesterday. Later in the day developed mid abdominal pain that worsened. Patient describes pain as sharp and nonradiating. Rates pain 8 out of 10 on pain scale. Was having some nausea. Patient states this morning try to drink a cup of coffee and had episode of vomiting. Had an additional episode of vomiting once in ER. Patient reports passed small amount of flatus this morning and was able to have scant BM yesterday. He reports this feels similar to prior SBO's however is not as severe. Drinks 4 shots of whiskey daily. Patient denies any history of alcohol withdrawal, seizure or DTs. Patient states since starting Entresto he has had intermittent orthostatic dizziness however is not as severe or often since being discharged home. Denies fever/chills, diaphoresis, hematemesis, melena, hematochezia, [place], syncope, vision changes, neck pain, CP, SOB, orthopnea, palpitations, cough, sore throat, choking, otalgia, rhinorrhea, extremity weakness, extremity edema, rashes, dysuria, hematuria, urinary frequency. Today in ER CT scan abdomen pelvis consistent with SBO. Admission Exam Per Admitting Provider General: no distress, overweight Head: normocephalic, atraumatic Eyes: conjunctiva non-injected, anicteric ENT: normal inspection external ears, nose, mucous membranes dry Neck: supple, trachea midline Lungs: clear, no respiratory distress, no wheezing/rhonchi/rales CV: RRR, no murmur, no pretibial edema Abd: +distended, hypoactive BS, soft,mild tenderness RUQ, epigastric without rebound or guarding Ext: no cyanosis, no calf tenderness Neuro: A&O x 3, no focal deficits noted, normal affect Skin: warm, dry Principal Diagnosis Small bowel obstruction Discharge Exam General: no distress, overweight Head: normocephalic, atraumatic Eyes: conjunctiva non-injected, anicteric ENT: normal inspection external ears, nose, mucous membranes dry Neck: supple, trachea midline Lungs: clear, no respiratory distress, no wheezing/rhonchi/rales CV: RRR, no murmur, no pretibial edema Abd: Soft, nontender Ext: no cyanosis, no calf tenderness Neuro: A&O x 3, no focal deficits noted, normal affect Skin: warm, dry Discharge Data Allergies Allergy/AdvReac Type Severity Reaction Status Date / Time Iodinated Contrast Media Allergy Severe Anaphylaxis Verified 01/17/21 05:54 [id number] Reductase Allergy Unknown MUSCLE Verified 01/17/21 05:54 Inhibitor ACHES [Ppkgvql-Omo-Tvd Reductase Inhibitor] Consultations 01/16/23 09:49 ED Decision to Admit Stat 01/16/23 11:46 Consult General Surgery Routine 01/16/23 11:58 Consult Cardiology Routine Ordered Studies 01/16/23 07:52 CT abd pelvis wo con Stat Hospital Course (1) SBO (small bowel obstruction): (2) Abnormal EKG: (3) CAD (coronary artery disease), [place] coronary artery: (4) CHF (congestive heart failure): (5) Alcohol use: (6) History of colon cancer: (7) HTN (hypertension): (8) GERD (gastroesophageal reflux disease): (9) Gout: (10) BPH (benign prostatic hyperplasia): (11) Nocturnal hypoxia: Patient is 72-year-old male with PMH HTN, CAD s/p stents, CABG, systolic diastolic CHF, history of colon cancer s/p sigmoidectomy in 2013, alcohol use, LBBB, GERD, BPH, depression, gout, history of splenomegaly, history of recurrent SBO's presented to ER with complaint of abdominal pain x [address] abdomen pelvis personally reviewed: Findings consistent with a small bowel obstruction Overnight, patient had bowel movement with improvement in abdominal pain KUB was done which showed improvement in small bowel obstruction Patient had regular bowel movement and was able to tolerate diet. He was discharged home with instruction to follow-up with PCP. Please note the above document was generated using voice recognition software. It may contain grammatical, syntax or spelling errors. Any formal questions or concerns about the content, text or information contained within the body of this dictation should be directly addressed to the provider for clarification Total Time Total Time Spent Total Time Spent (In Minutes): 45 Total Time Includes: Examination of the Patient, Discharge Planning, Medication Reconciliation, Communication With Other Providers and Other Discharge Plan Discharge Items Patient Disposition: Home - Self-Care Reason For Visit: SBO Discharge Diagnosis: Small bowel obstruction Activity: Resume your previous activity Non-emergency contact: Primary Care Provider Call non-emergency contact if: you have any medication questions and your symptoms worsen Follow-up/Referrals: Miguel Suarez MD [Primary Care Provider] - (Date & Time 01/21/2023 1:00 PM Provider Tyler Shea DO [facility] ) Diet: Low Fiber Addtl Attending Provider Instructions: You were admitted to the hospital with small bowel obstruction. Please follow low fiber diet. Please refer to the pamphlet provided to you. Please follow-up with your primary care doctor. An appointment will set up for you. Pending Studies at Discharge: No Stand-Alone Forms: My [facility] Behalf, Smoking Cessation Medications and DC Order Prescriptions: Continued fluocinonide 0.05 % cream 1 applic topical BID PRN (Reason: Rash) sertraline 100 mg tablet 150 mg PO DAILY Patient Comments: took 50 mg this morning terazosin 2 mg Capsule 2 mg PO HS cholecalciferol (vitamin D3) [Vitamin D3] 5,000 unit Tablet 5,000 unit PO QAM clopidogrel [Plavix] 75 mg Tablet 75 mg PO QAM nitroglycerin [Nitrostat] 0.4 mg Tablet, Sublingual 0.4 mg Sublingual UD PRN (Reason: Chest Pain) Rx Instructions: ONE TABLET UNDER THE TONGUE EVERY 5 MINUTES UP TO 3 DOSES FOR CHEST PAIN. vitamin E 400 unit Capsule 400 unit PO QAM fluticasone propionate 50 mcg/actuation [place],Suspension 2 spray INTRANASAL DAILY PRN (Reason: Nasal Congestion) aspirin 81 mg Tablet,Delayed Release (Dr/Ec) 81 mg PO AMPM pyridoxine (vitamin B6) [Vitamin B-6] 100 mg Tablet 100 mg PO QAM nitroglycerin 0.6 mg/hr patch 24 hour 1 patch topical DAILY metoprolol succinate 50 mg tablet extended release 24 hr 50 mg PO QAM cyanocobalamin (vitamin B-12) [Vitamin B-12] 1,000 mcg Tablet 1,000 mcg PO DAILY famotidine 20 mg tablet 20 mg PO BID PRN (Reason: Acid Reflux) pantoprazole 40 mg tablet,delayed release (DR/EC) 40 mg PO BID Praluent Pen 150 mg/mL Pen Injector 150 mg SUBCUT .[id number] Patient Comments: Due 12/17 amlodipine 10 mg tablet 10 mg PO QAM allopurinol 300 mg tablet 150 mg PO QAM allopurinol 300 mg tablet 300 mg PO QPM ranolazine 500 mg tablet extended release 12 hr 500 mg PO BID Formulas Testosterone Cap 1 tab PO DAILY Entresto 24-26 mg Tablet 1 tab PO BID Qty: 60 0RF furosemide 20 mg tablet 20 mg PO DAILY PRN (Reason: Edema) Discharge Orders: Discharge Order (Routine); Ordered 01/18/23 Ordered By: Nikolas Fan Admission Data Admit Date/Time: 01/16/23 10:19 Attending Provider: Nikolas Fan Admit Provider: Gary Villarreal Primary Care Provider: Miguel Suarez Other Providers: Gary Villarreal ; Wes David ; Tha Lopez Other Interventions: Discharge Summary Assessment (RN) Last Done: 01/18/23 12:45
== END 2023-01-18 18:13 | disposition home or self-care (01) | DRG 389 ==
LOC: ED 07:37 → SUATTDRO 10:19 → INTOOBSV 10:19 → 4W 10:19

== ENCOUNTER 2023-04-02 09:45 | Observation (INO) ==
[2023-04-02] MEDS ORDERED: ASPIRIN CHEW 324 MG PO STA (09:47)
--- NOTE | 2023-04-02 09:54 | Emergency Department Note ---
History of Present Illness General Chief Complaint: Heart Alert Time Seen by Provider: 04/02/23 09:47 History of Present Illness Provider Complaint: shortness of breath Onset (ago): day(s) (1) Severity: mild Consistency/Duration: + improved Relieved By: + rest Exacerbated By: + exertion Associated symptoms: no chest pain, no cough, no sputum production, no syncope or no abdominal pain HPI Narrative: Patient was at cardiac rehab and then began having shortness of breath. EKG was conducted which was concerning for STEMI. Home Medications Medication Instructions Recorded Confirmed Type cholecalciferol (vitamin D3) 125 5,000 unit PO QAM 05/22/18 04/02/23 History mcg (5,000 unit) tablet (Vitamin D3) clopidogrel 75 mg tablet (Plavix) 75 mg PO QAM 05/22/18 04/02/23 History nitroglycerin 0.4 mg sublingual 0.4 mg sublingual UD PRN Chest Pain 05/22/18 04/02/23 History tablet (Nitrostat) terazosin 2 mg capsule 2 mg PO HS 05/22/18 04/02/23 History vitamin E 268 mg (400 unit) capsule 400 unit PO QAM 05/22/18 04/02/23 History pyridoxine (vitamin B6) 100 mg 100 mg PO QAM 12/06/20 04/02/23 History tablet (Vitamin B-6) fluocinonide 0.05 % topical cream 1 applic topical BID PRN Rash 12/31/20 04/02/23 History sertraline 100 mg tablet 150 mg PO DAILY 01/07/21 04/02/23 History aspirin 81 mg tablet,delayed 81 mg PO AMPM 01/10/21 04/02/23 History release fluticasone propionate 50 2 spray intranasal DAILY PRN Nasal 01/10/21 04/02/23 History mcg/actuation nasal Congestion spray,suspension Formulas Testosterone Cap 1 tab PO DAILY 12/16/22 04/02/23 History alirocumab 150 mg/mL subcutaneous 150 mg subcut .[id number] 12/16/22 04/02/23 History pen injector (Praluent Pen) allopurinol 300 mg tablet 150 mg PO QAM 12/16/22 04/02/23 History allopurinol 300 mg tablet 300 mg PO QPM 12/16/22 04/02/23 History amlodipine 10 mg tablet 10 mg PO QAM 12/16/22 04/02/23 History cyanocobalamin (vitamin B-12) 1,000 mcg PO DAILY 12/16/22 04/02/23 History 1,000 mcg tablet (Vitamin B-12) famotidine 20 mg tablet 20 mg PO BID 12/16/22 04/02/23 History metoprolol succinate 50 mg 50 mg PO QAM 12/16/22 04/02/23 History tablet,extended release 24 hr nitroglycerin 0.6 mg/hr 1 patch topical DAILY 12/16/22 04/02/23 History transdermal 24 hour patch pantoprazole 40 mg tablet,delayed 40 mg PO BID 12/16/22 04/02/23 History release ranolazine 500 mg tablet,extended 500 mg PO BID 12/16/22 04/02/23 History release,12 hr sacubitril 24 mg-valsartan 26 mg 1 tab PO BID #60 tabs 12/21/22 04/02/23 Rx tablet (Entresto) furosemide 20 mg tablet 20 mg PO DAILY PRN Edema 01/16/23 04/02/23 History sacubitril 24 mg-valsartan 26 mg 1 tab PO BID 04/02/23 04/02/23 History tablet (Entresto) Allergies Allergy/AdvReac Type Severity Reaction Status Date / Time Iodinated Contrast Media Allergy Severe Anaphylaxis Verified 03/18/23 11:43 Ornnzdu-PEX-CpP Reductase Allergy Unknown MUSCLE Verified 03/18/23 11:43 Inhibitor ACHES [Vaboquh-Qgo-Weo Reductase Inhibitor] Past Med/Surg History Medical History Anxiety BPH (benign prostatic hyperplasia) BPH with obstruction/lower urinary tract symptoms CAD (coronary artery disease) "1992 - CABG x 5 09/2016 - [facility] to SVG of OM 10/2016 - repeat cath, no lesions amenable to intervention, medical management recommended" Follows with Dr. Kaiser Chronic idiopathic thrombocytopenia F/U PCP Depression Dyslipidemia On injectable medications - cannot tolerate statins GERD (gastroesophageal reflux disease) Well controlled and stable with med Gout No current issues Hearing deficit BL [place] Has hearing aids - not wearing hearing aids History of colon cancer dx 2016; treated surgically + oral chemo History of COVID-19 08/2020; asymptomatic -TESTED BY [facility] AT [facility] [place] History of intestinal obstruction No recent issues History of TIA (transient ischemic attack) -"SHOWS 7 ON SCANS" PER PT-F/U History of TMJ disorder Occ jaw clicking - no jaw locking HTN (hypertension) Myocardial Infarction 11/20/2022 Nocturnal hypoxia On home oxygen therapy 2 LPM qHS- does not always use secondary to nasal dryness Prediabetes Diet controlled Temporomandibular joint disorder CLICKS NO LOCKING Surgical History H/O arthroscopic knee surgery mult BL H/O heart artery stent x 1 H/O toe surgery History of cardiac catheterization 2016 [facility] - 1 stent History of carpal tunnel surgery History of colonoscopy History of partial colectomy History of tonsillectomy and adenoidectomy S/P CABG x 5 1992 [employer] Family History Father Diabetes Esophagus cancer Stomach cancer Heart disease Other No family history of adverse response to anesthesia Social History Smoking Status: Former smoker Tobacco Type: Cigarettes Second Hand Exposure: No; Do You Dip or Chew Tobacco: No (QUIT 30 YRS AGO); Hx Alcohol Use: Yes Alcohol type: hard liquor Hx Substance Use: No Preferred Language: [place] Communication Ability: Effective Computer Forensics Examiner Required: No Beliefs That Will Affect Care: None marital status: Current Living Situation: Alone Current Living Situation Comment: family has apartment underneath patients home current occupational status: retired current occupation: Retired Feels Safe at Home: Yes Assistive Devices: Oxygen - at Night Physical Exam Vital Signs: Vital Signs - 24 hr 04/02/23 09:54 04/02/23 09:54 04/02/23 09:54 Temperature 36.7 C Temperature Source Oral Pulse Rate 72 Respiratory Rate 18 Blood Pressure 96/60 L Blood Pressure Briana n 72 Pulse Oximetry 97 Oxygen Delivery Me thod Room Air Room Air Room Air Sepsis Recent Feve r Within 48 Hours No Sepsis New/Unexpla ined Change in Men randolph Status No Sepsis Action Take n by Nursing No Action Required 04/02/23 09:50 04/02/23 10:00 04/02/23 10:00 Temperature Temperature Source Pulse Rate 74 77 Respiratory Rate 21 Blood Pressure 97/66 L Blood Pressure Briana n 76 Pulse Oximetry 96 Oxygen Delivery Me thod Room Air Sepsis Recent Feve r Within 48 Hours Sepsis New/Unexpla ined Change in Men randolph Status Sepsis Action Take n by Nursing Physical Exam: Physical Exam GENERAL: oriented to person, place, and time. appears well-developed and well- nourished. HENT: Exam performed. - Head: Normocephalic and atraumatic. EYES: Conjunctivae and EOM are normal. Right eye exhibits no discharge. Left eye exhibits no discharge. No scleral icterus. NECK: Normal range of motion. Neck supple. No JVD present. CV: Normal rate, regular rhythm, normal heart sounds and intact distal pulses. There is no peripheral edema. Palpable radial pulses bue. PULM/CHEST: Effort normal and breath sounds normal. No respiratory distress. No stridor. no wheezes. no rales. ABD: The abdomen is soft. There is no tenderness. NEURO: Motor and sensation grossly intact. SKIN: Skin is warm and dry. He is not diaphoretic. PSYCH: normal mood and affect. Behavior is normal. Judgment and thought content normal. Course Course 943: The patient was evaluated in room B1. A complete history and physical exam was performed Cardiac monitoring: An order was placed for continuous cardiac monitoring. The monitor shows a rate of 50 with sinus rhythm interpreted by me Heart alert called. Administered Medications Discontinued Medications Aspirin (Aspirin Chew 324 Mg) 324 mg PO NOW STA Stop: 04/02/23 09:48 Last Admin: 04/02/23 09:50 Dose: 324 mg Documented By: VICTOR MANUEL Fentanyl Citrate (Fentanyl Citrate Pf 100 Mcg/2 Ml Vial) Confirm Administered Dose 100 mcg .ROUTE .STK-MED ONE Stop: 04/02/23 11:01 Last Increment: 04/02/23 11:02 Dose: 50 mcg Documented By: WILDA Medical Decision Making Laboratory Data 04/02/23 09:55 04/02/23 Unknown Lab Results 04/02/23 04/02/23 04/02/23 Range/Units 09:55 09:55 09:55 WBC 3.53 L (4.8-10.8) K/ul RBC 4.44 L (4.70-6.10) M/uL Hgb 14.2 (14.0-18.0) g/dl POC Hgb (14.0-18.0) g/dl Hct 42.0 (42.0-52.0) % POC Hct (42-52) % MCV 94.6 (80.0-100.0) fL MCH 32.0 (25.0-34.0) pg MCHC 33.8 (32.0-36.0) g/dL RDW Std Deviation 50.1 H (36.4-46.3) fL RDW Coeff of Long 14.4 (11.5-14.5) % Plt Count 110 L (130-400) K/uL MPV 10.7 (9.4-12.4) fL Immature Gran % (Auto) 0.3 % Neut % (Auto) 63.3 % Lymph % (Auto) 24.9 % [place] % (Auto) 7.6 % Eos % (Auto) 3.1 % Baso % (Auto) 0.8 % Neut # (Auto) 2.23 (1.40-6.50) K/uL Lymph # (Auto) 0.88 L (1.20-3.40) K/uL [place] # (Auto) 0.27 (0.11-0.59) K/uL Eos # (Auto) 0.11 (0.00-0.50) K/uL Baso # (Auto) 0.03 (0.00-0.20) K/uL Immature Gran # (Auto) 0.01 (0.01-0.20) K/uL PT 9.8 (9.0-12.0) Seconds INR 0.9 (0.9-1.1) APTT 26.1 (21.0-31.0) Seconds PTT Ratio 0.9 Activ Coag Time Kaolin (94-140) SECONDS POC Sodium (135-144) mmol/L POC Potassium (3.3-5.0) mmol/L POC Chloride (101-112) mmol/L POC Total CO2 (24-31) mmol/L POC Anion Gap (16-25) mmol/L POC BUN (7-18) mg/dl POC Creatinine (0.6-1.3) mg/dl POC Glucose (other) (70-99) mg/dl POC Ioniz Calcium Nicola (1.12-1.32) mmol/l B-Natriuretic Peptide 385 H (0-100) pg/ml TSH (0.300-4.500) uIu/ml 04/02/23 04/02/23 04/02/23 Range/Units 09:55 09:59 10:38 WBC (4.8-10.8) K/ul RBC (4.70-6.10) M/uL Hgb (14.0-18.0) g/dl POC Hgb 14.3 (14.0-18.0) g/dl Hct (42.0-52.0) % POC Hct 42 (42-52) % MCV (80.0-100.0) fL MCH (25.0-34.0) pg MCHC (32.0-36.0) g/dL RDW Std Deviation (36.4-46.3) fL RDW Coeff of Long (11.5-14.5) % Plt Count (130-400) K/uL MPV (9.4-12.4) fL Immature Gran % (Auto) % Neut % (Auto) % Lymph % (Auto) % [place] % (Auto) % Eos % (Auto) % Baso % (Auto) % Neut # (Auto) (1.40-6.50) K/uL Lymph # (Auto) (1.20-3.40) K/uL [place] # (Auto) (0.11-0.59) K/uL Eos # (Auto) (0.00-0.50) K/uL Baso # (Auto) (0.00-0.20) K/uL Immature Gran # (Auto) (0.01-0.20) K/uL PT (9.0-12.0) Seconds INR (0.9-1.1) APTT (21.0-31.0) Seconds PTT Ratio Activ Coag Time Kaolin 161 H (94-140) SECONDS POC Sodium 142 (135-144) mmol/L POC Potassium 4.3 (3.3-5.0) mmol/L POC Chloride 103 (101-112) mmol/L POC Total CO2 25 (24-31) mmol/L POC Anion Gap 20.0 (16-25) mmol/L POC BUN 23 H (7-18) mg/dl POC Creatinine 2.1 H (0.6-1.3) mg/dl POC Glucose (other) 112 H (70-99) mg/dl POC Ioniz Calcium Nicola 1.10 L (1.12-1.32) mmol/l B-Natriuretic Peptide (0-100) pg/ml TSH 4.320 (0.300-4.500) uIu/ml 04/02/23 Range/Units 10:46 WBC (4.8-10.8) K/ul RBC (4.70-6.10) M/uL Hgb (14.0-18.0) g/dl POC Hgb (14.0-18.0) g/dl Hct (42.0-52.0) % POC Hct (42-52) % MCV (80.0-100.0) fL MCH (25.0-34.0) pg MCHC (32.0-36.0) g/dL RDW Std Deviation (36.4-46.3) fL RDW Coeff of Long (11.5-14.5) % Plt Count (130-400) K/uL MPV (9.4-12.4) fL Immature Gran % (Auto) % Neut % (Auto) % Lymph % (Auto) % [place] % (Auto) % Eos % (Auto) % Baso % (Auto) % Neut # (Auto) (1.40-6.50) K/uL Lymph # (Auto) (1.20-3.40) K/uL [place] # (Auto) (0.11-0.59) K/uL Eos # (Auto) (0.00-0.50) K/uL Baso # (Auto) (0.00-0.20) K/uL Immature Gran # (Auto) (0.01-0.20) K/uL PT (9.0-12.0) Seconds INR (0.9-1.1) APTT (21.0-31.0) Seconds PTT Ratio Activ Coag Time Kaolin 209 H (94-140) SECONDS POC Sodium (135-144) mmol/L POC Potassium (3.3-5.0) mmol/L POC Chloride (101-112) mmol/L POC Total CO2 (24-31) mmol/L POC Anion Gap (16-25) mmol/L POC BUN (7-18) mg/dl POC Creatinine (0.6-1.3) mg/dl POC Glucose (other) (70-99) mg/dl POC Ioniz Calcium Nicola (1.12-1.32) mmol/l B-Natriuretic Peptide (0-100) pg/ml TSH (0.300-4.500) uIu/ml Imaging Data Attestation: I personally reviewed and interpreted this imaging study as foll ows: My Impression: Chest x-ray negative. Airway clear. No pneumothorax. No consolidation. No cardiomegaly or cephalization.. No free air under the diaphragm. No fractures of the skeletal structures. Radiologist's Impression: Chest X-Ray 04/02/23 09:47 XR chest 1V portable CLINICAL HISTORY: Chest pain, nonspecific TECHNIQUE: Single frontal radiograph of the chest was obtained. Comparison: Comparison is made to chest radiograph 12/19/2019 FINDINGS: Median sternotomy wires are unchanged. The cardiomediastinal silhouette is normal. The lungs are clear. No evidence of pleural effusion or pneumothorax. IMPRESSION: No acute chest disease. ACT 112: Negative or not required by law. Electronically signed by: Terry Shine M.D. 04/02/2023 10:32 AM ECG Data Attestation: I personally reviewed and interpreted this ECG as follows: Interpretation: EKG from cardiac rehab conducted at 0934: Sinus rhythm with rate 78 GA 226 QRS and Qtc wnl. ST elevation leads III and aVF with ST depressions leads I, avL, V2-V6. MDM Narrative The patient was evaluated in room B1. A complete history and physical exam was performed Cardiac monitoring: An order was placed for continuous cardiac monitoring. The monitor shows a rate of 50 with sinus rhythm interpreted by me Heart alert called. Impression & Plan ST elevation (STEMI) myocardial infarction Discharge Plan Visit Data Chief Complaint: Heart Alert ED Provider: Immanuel Trotter Discharge Problem: ST elevation (STEMI) myocardial infarction Patient Disposition: Still a Patient Discharge Instructions Interventions: ED Discharge Assessment Last Done: 04/02/23 10:06
[2023-04-02] MEDS ORDERED: HEPARIN SOD (PORCINE) 1000 UNIT/ML ONE (09:55)
[2023-04-02 10:09] LABS: Basophils # (auto) 0.03 K/uL (0.00-0.20); Basophils % (auto) 0.8 %; Eosinophils # (auto) 0.11 K/uL (0.00-0.50); Eosinophils % (auto) 3.1 %; Hemoglobin 14.2 g/dl (14.0-18.0); Immature Granulocytes # (auto) 0.01 K/uL (0.01-0.20); Immature Granulocytes % (auto) 0.3 %; Lymphocytes # (auto) 0.88 K/uL (1.20-3.40); Lymphocytes % (auto) 24.9 %; Mean Corpuscular Hgb Conc 33.8 g/dL (32.0-36.0); Mean Corpuscular Volume 94.6 fL (80.0-100.0); Mean Platelet Volume 10.7 fL (9.4-12.4); Monocytes # (auto) 0.27 K/uL (0.11-0.59); Monocytes % (auto) 7.6 %; Neutrophils # (auto) 2.23 K/uL (1.40-6.50); Neutrophils % (auto) 63.3 %; Platelet Count 110 K/uL (130-400); RDW Coefficient of Variation 14.4 % (11.5-14.5); RDW Standard Deviation 50.1 fL (36.4-46.3); Red Blood Count 4.44 M/uL (4.70-6.10); White Blood Count 3.53 K/ul (4.8-10.8)
[2023-04-02 10:12] LABS: iSTAT Creatinine 2.1 mg/dl (0.6-1.3); iSTAT Hemoglobin 14.3 g/dl (14.0-18.0); iSTAT Ionized Calcium 1.1 mmol/l (1.12-1.32); iSTAT Potassium 4.3 mmol/L (3.3-5.0)
[2023-04-02 10:16] LABS: INR 0.9 (0.9-1.1); Partial Thromboplastin Ratio 0.9; Partial Thromboplastin Time 26.1 Seconds (21.0-31.0); Prothrombin Time 9.8 Seconds (9.0-12.0)
--- NOTE | 2023-04-02 10:34 | XRay Report ---
XR chest 1V portable CLINICAL HISTORY: Chest pain, nonspecific TECHNIQUE: Single frontal radiograph of the chest was obtained. Comparison: Comparison is made to chest radiograph 12/19/2019 FINDINGS: Median sternotomy wires are unchanged. The cardiomediastinal silhouette is normal. The lungs are tal r. No evidence of pleural effusion or pneumothorax. IMPRESSION: No acute chest disease. ACT 112: Negative or not required by law. Electronically signed by: Terry Shine M.D. 04/02/2023 10:32 AM
[2023-04-02 10:40] LABS: Albumin Globulin Ratio 2.1 (0.9-2); Albumin Level 4.4 gm/dl (3.4-5.0); BUN Creatinine Ratio 12.6 (10-20); Bilirubin,Total 0.5 mg/dl (0.2-1.0); Calcium 9.4 mg/dl (8.6-10.3); Creatinine Clr Calc Pharmacy 39.1 ml/min; Est GFR (African American) 39.9 ml/min; Est GFR (Non-African American) 34.5 ml/min; Globulin 2.1 gm/dl (2.5-4.0); Potassium 4.4 mmol/L (3.5-5.1); Total Protein 6.5 gm/dl (6.0-8.3)
[2023-04-02 10:46] LABS: Troponin I High Sensitivity 11.8 pg/ml (0-20)
[2023-04-02] MEDS ORDERED: fentaNYL citrate PF 100 MCG/2 ML VIAL ONE (11:00)
[2023-04-02] MEDS ORDERED: MIDAZOLAM HCL 1 MG/ML 2ML VIAL ONE (11:00)
--- NOTE | 2023-04-02 11:15 | Pre Anesthesia Assessment ---
Date of Service April 02, 2023 Pre Sedation Assessment Vital Signs Temp Pulse Resp BP Pulse Ox O2 Del Method 04/02/23 10:00 77 21 96 Room Air 04/02/23 10:00 97/66 L 04/02/23 09:50 74 04/02/23 09:54 Room Air 04/02/23 09:54 Room Air 04/02/23 09:54 36.7 C 72 18 96/60 L 97 Room Air Cardiovascular RRR, no murmur, no edema Respiratory normal respiratory effort, lungs clear to auscultation (mild tachypnea) Pre-Sedation Airway Assessment Smoking Status: Former smoker Mallampati III ASA IV Notes The planned sedation has been discussed with the patient. Informed Consent was obtained. I have identified the patient, determined the appropriateness of sedation and have assessed the patient immediately prior to the procedure. All medicine(s) and interventions are by my order.
--- NOTE | 2023-04-02 11:17 | Post Anesthesia Assessment ---
Date of Service April 02, 2023 Post Sedation Assessment Vital Signs Temp Pulse Resp BP Pulse Ox O2 Del Method 04/02/23 10:00 77 21 96 Room Air 04/02/23 10:00 97/66 L 04/02/23 09:50 74 04/02/23 09:54 Room Air 04/02/23 09:54 Room Air 04/02/23 09:54 36.7 C 72 18 96/60 L 97 Room Air Recovery Score Activity: Moves 4 extremities Respiration: Deep Breath/Cough Circulation: +/-20% PreAnes Value Consciousness: Fully Awake Oxygen Saturation: > 92% On Room Air Discharge Sedation Level of Care: Fast Track Phase II Post Sedation Plan On clinical assessment, the patient appears to have tolerated the sedation without complications. Patient is recovering as anticipated. Patient will continue to be monitored by nursing and may be discharged when sedation discharge criteria are met per below protocol. Upon Completions of procedure up to 15 minutes continue every 5 minute vital signs and the P.A.R. score; then discharge to a Phase I or Fast Track to Phase II per the following guidelines: * Discharge Patient to appropriate Phase II area if PAR is 8 or greater or return to pre- procedure baseline. The post - procedure orders will be as directed. * If PAR score is less than 8 or not return to pre-procedure baseline then patient will follow Phase I monitoring till PAR is reached for Phase II. The Phase I may be done in procedure room or may call to secure a Phase I area. * If naloxone or flumazenil are used for reversal, hold in Phase I for continued monitoring from when last reversal dose was given for a minimum of 60 minutes or longer pending the nurse and/or physician discretion of patient condition before discharge to Phase II. Please call the Sedation Physician to re-evaluate and complete post-note for discharge to Phase II area. Do NOT discharge from procedure sedation or Phase 1 until post- sedation evaluation note is complete by procedure /sedation MD Sedation Discharge Instructions to be given to the patient at discharge to home. [facility] [place] Procedure Codes (Charges) Indication for Procedure Indication for procedure: SOB, EKG changes Sedation/Anesthesia Procedure 1: Sedation/Anesthesia: 51449 Mod Sedation by the same physician;Init15 Min Child Age 5 & Up (initial 15 min, start 1017) Procedure 2: Sedation/Anesthesia: 70981 Mod Sedation by the same physician; Ea [id number] Minutes (additional 42 min, end 1114)
--- NOTE | 2023-04-02 11:54 | History & Physical Report ---
Date of Service April 02, 2023 Assessment & Plan (1) CAD (coronary artery disease), [place] coronary artery: (2) LBBB (left bundle branch block): (3) CHF (congestive heart failure): (4) Dyslipidemia: (5) Recent myocardial infarction: (6) HTN (hypertension): Plan: 72-year-old male with PMH HTN, CAD s/p stents, CABG, chronic systolic diastolic CHF, history of colon cancer s/p sigmoidectomy in 2013, alcohol use, LBBB, GERD, BPH, depression, gout, history of splenomegaly, history of recurrent SBO's . Patient with history recent hospitalization 12/16/2022-12/21/2022 for CHF exacerbation was diuresed with Lasix and discharged on Entresto. Also recent history on 11/20/2022 had STEMI and was transferred to [facility] and had stent placement to LAD.He has known artery occlusion of 100% in the LAD, circumflex, RVA and 2 SVGs. 04/02/23 patient underwent cardiac cath after increased shortness of breath x1 day where cardiac cath was focused on to known patent bypass grafts. TERRY to PDA angiography showed mild disease without acute lesion, posterior lateral branch may have mild thrombus as it transitions from distal RCA. The VICTORIA to LAD angiography were completed, showing large caliber and widely patent, distal anastomosis in the distal LAD without stenosis. Previously placed stent distal to this anastomosis is widely patent, distal and apical LAD after the stent have diffuse mild disease. Retrograde flow up to the LAD to a diagonal branch, that diagonal branch is relatively large and has ostial to proximal disease of 95 to 99% which is similar to prior catheterization, not amendable to PCI. Status post cardiac cath Chronic systolic and diastolic CHF without acute exacerbation Essential hypertension, chronic Dyslipidemia, chronic, stable History of STEMI, known LAD, left circumflex, RCA, left ramus known to have occlusions on previous cardiac cath -Admit to ICU overnight for observation s/p CC -Discussed with Dr. Lundy, cardiac cath interventionalist - 04/02/23 patient underwent cardiac cath after increased shortness of breath x1 day where cardiac cath was focused on to known patent bypass grafts. ----TERRY to PDA angiography showed mild disease without acute lesion, posterior lateral branch may have mild thrombus as it transitions from distal RCA. ----VICTORIA to LAD angiography were completed, showing large caliber and widely patent, distal anastomosis in the distal LAD without stenosis. Previously placed stent distal to this anastomosis is widely patent, distal and apical LAD after the stent have diffuse mild disease. Retrograde flow up to the LAD to a diagonal branch, that diagonal branch is relatively large and has ostial to proximal disease of 95 to 99% which is similar to prior catheterization, not amendable to PCI. - Lovenox 1mg/kg subq BID recommended for DVT ppx -if this represents a clot which recanalized with heparin or spasm -per Dr. Lundy - Consult cardiology - Dr. Dorman -Continue medical management with home medications as per med rec - Strict I/Os, VSS, allow heart healthy diet Essential hypertension - chronic, stable, cont antihypertensives as above, BP well controlled Dyslipidemia - chronic, stable, cont statin therapy Hx gout - chronic, stable, continue allopurinol FEN/: HH diet IV/Lines: 2 peripheral IVs CODE: FULL code Dispo: From home, lives with daughter, likely to remain in hospital overnight and discharge home tomorrow History of Present Illness Primary Care Provider: Miguel Suarez MD This is a 72-year-old male with PMH HTN, CAD s/p stents, CABG, chronic systolic diastolic CHF, history of colon cancer s/p sigmoidectomy in 2013, alcohol use, LBBB, GERD, BPH, depression, gout, history of splenomegaly, history of recurrent SBO's presented to ER with complaint of abdominal pain x 1 day. Patient with history recent hospitalization 12/16/2022-12/21/2022 for CHF was diuresed with Lasix and discharged on Entresto. Also recent history on 11/20/2022 had STEMI and was transferred to [facility] and had stent placement to LAD. Pt presents to the hospital today after referral from cardiac rehab outpatient office this morning and pt went for emergent laboratory mechanical technician evaluation. Patient participates with cardiac rehab on , and on Wednesday did fine. Patient admits that yesterday he had some increased shortness of breath which was present even with rest yesterday morning, worse with minimal ADLs. He took a Lasix tablet in the morning and in the evening as he thought maybe there was some fluid accumulation and this would help him feel better. Denies any obvious fluid retention in his legs. He did not use any additional nitro although has b een wearing his nitro patch as routinely prescribed. Prior to being transitioned onto Entresto about 2 weeks ago and being seen in cardiac rehab, he had been wearing oxygen 2 L at bedtime, but since then has not been using it. He did have an outpatient EKG done which showed some changes earlier this week, and then with the office learning about his symptoms this morning had his case discussed with Dr. Kaiser who referred him here. After having cardiac cath patient feels well, just fatigued and a bit drowsy, no chest pain, no shortness of breath. Allergies Allergy/AdvReac Type Severity Reaction Status Date / Time Iodinated Contrast Media Allergy Severe Anaphylaxis Verified 03/18/23 11:43 Ssgfxib-IVW-PxV Reductase Allergy Unknown MUSCLE Verified 03/18/23 11:43 Inhibitor ACHES [Nerokly-Etp-Nxs Reductase Inhibitor] Home Medications Medication Instructions Recorded Confirmed Type cholecalciferol (vitamin D3) 125 5,000 unit PO QAM 05/22/18 04/02/23 History mcg (5,000 unit) tablet (Vitamin D3) clopidogrel 75 mg tablet (Plavix) 75 mg PO QAM 05/22/18 04/02/23 History nitroglycerin 0.4 mg sublingual 0.4 mg sublingual UD PRN Chest Pain 05/22/18 04/02/23 History tablet (Nitrostat) terazosin 2 mg capsule 2 mg PO HS 05/22/18 04/02/23 History vitamin E 268 mg (400 unit) capsule 400 unit PO QAM 05/22/18 04/02/23 History pyridoxine (vitamin B6) 100 mg 100 mg PO QAM 12/06/20 04/02/23 History tablet (Vitamin B-6) fluocinonide 0.05 % topical cream 1 applic topical BID PRN Rash 12/31/20 04/02/23 History sertraline 100 mg tablet 150 mg PO DAILY 01/07/21 04/02/23 History aspirin 81 mg tablet,delayed 81 mg PO AMPM 01/10/21 04/02/23 History release fluticasone propionate 50 2 spray intranasal DAILY PRN Nasal 01/10/21 04/02/23 History mcg/actuation nasal Congestion spray,suspension Formulas Testosterone Cap 1 tab PO DAILY 12/16/22 04/02/23 History alirocumab 150 mg/mL subcutaneous 150 mg subcut .[id number] 12/16/22 04/02/23 History pen injector (Praluent Pen) allopurinol 300 mg tablet 150 mg PO QAM 12/16/22 04/02/23 History allopurinol 300 mg tablet 300 mg PO QPM 12/16/22 04/02/23 History amlodipine 10 mg tablet 10 mg PO QAM 12/16/22 04/02/23 History cyanocobalamin (vitamin B-12) 1,000 mcg PO DAILY 12/16/22 04/02/23 History 1,000 mcg tablet (Vitamin B-12) famotidine 20 mg tablet 20 mg PO BID 12/16/22 04/02/23 History metoprolol succinate 50 mg 50 mg PO QAM 12/16/22 04/02/23 History tablet,extended release 24 hr nitroglycerin 0.6 mg/hr 1 patch topical DAILY 12/16/22 04/02/23 History transdermal 24 hour patch pantoprazole 40 mg tablet,delayed 40 mg PO BID 12/16/22 04/02/23 History release ranolazine 500 mg tablet,extended 500 mg PO BID 12/16/22 04/02/23 History release,12 hr sacubitril 24 mg-valsartan 26 mg 1 tab PO BID #60 tabs 12/21/22 04/02/23 Rx tablet (Entresto) furosemide 20 mg tablet 20 mg PO DAILY PRN Edema 01/16/23 04/02/23 History sacubitril 24 mg-valsartan 26 mg 1 tab PO BID 04/02/23 04/02/23 History tablet (Entresto) Past Med/Surg History Medical History Anxiety BPH (benign prostatic hyperplasia) BPH with obstruction/lower urinary tract symptoms CAD (coronary artery disease) "1992 - CABG x 5 09/2016 - [place] to SVG of OM 10/2016 - repeat cath, no lesions amenable to intervention, medical management recommended" Follows with Dr. Kaiser Chronic idiopathic thrombocytopenia F/U PCP Depression Dyslipidemia On injectable medications - cannot tolerate statins GERD (gastroesophageal reflux disease) Well controlled and stable with med Gout No current issues Hearing deficit [place] Has hearing aids - not wearing hearing aids History of colon cancer dx 2016; treated surgically + oral chemo History of COVID-19 08/2020; asymptomatic -TESTED BY [facility] AT [facility] History of intestinal obstruction No recent issues History of TIA (transient ischemic attack) 1980s-"SHOWS 7 ON SCANS" PER PT-F/U DR History of TMJ disorder Occ jaw clicking - no jaw locking HTN (hypertension) Myocardial Infarction 11/20/2022 Nocturnal hypoxia On home oxygen therapy 2 LPM qHS- does not always use secondary to nasal dryness Prediabetes Diet controlled Temporomandibular joint disorder CLICKS NO LOCKING Surgical History H/O arthroscopic knee surgery mult BL H/O heart artery stent x 1 H/O toe surgery History of cardiac catheterization 2016 [facility] [place] - 1 stent History of carpal tunnel surgery History of colonoscopy History of partial colectomy History of tonsillectomy and adenoidectomy 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 Family History Father Diabetes Esophagus cancer Stomach cancer Heart disease Other No family history of adverse response to anesthesia Social History Smoking Status: Former smoker Tobacco Type: Cigarettes Second Hand Exposure: No; Do You Dip or Chew Tobacco: No (QUIT 30 YRS AGO); Hx Alcohol Use: Yes Alcohol type: hard liquor Hx Substance Use: No Preferred Language: Upper Sorbian Communication Ability: Effective Padded Box Sewer Required: No Beliefs That Will Affect Care: None marital status: Current Living Situation: Alone Current Living Situation Comment: family has apartment underneath patients home current occupational status: retired current occupation: Retired Feels Safe at Home: Yes Assistive Devices: Oxygen - at Night Review of Systems Review of Systems: Constitutional: No fever, sweats or chills Eyes: No diplopia, no worsening or blurred vision ENT: normal hearing, no trouble swallowing Respiratory: No cough, sputum, dyspnea at rest or on exertion Cardiovascular: No chest pain, tightness or palpitations Abdomen: No pain, nausea, vomiting, diarrhea or constipation Musculoskeletal: No joint pain, calf pain, swelling Neurologic: No weakness, numbness/tingling, or balance problems Psychiatric: No anxiety or depression Skin: No rash or itch Physical Exam Physical Exam: General: awake, alert, no apparent distress, obese white male BMI 31.6 Head: Normocephalic, atraumatic ENT: PERRL, EOMI, no pharyngeal exudate, mucous membranes moist Chest: Clear to auscultation, on 2 LPM NC, no adventitious breath sounds Cardiac: Regular rate and rhythm, heart rate in the 50s, no murmur, no JVD, normal peripheral pulses, good capillary refill Abdominal: NABS x 4 quadrants, soft, nondistended, nontender to palpation, no rebound or guarding Extremities: Normal inspection, no peripheral edema or erythema, calfs nontender to palpation Psych: Normal mood and affect Neuro: AAO x 3, strength intact bilaterally and rated 5/5, no motor deficits, speech is clear, no peripheral sensory deficits Results & Data Results & Data Vital Signs (Past 12 Hours) Vital Signs Temp Pulse Pulse Resp BP BP Pulse Ox 04/02/23 11:45 55 L 16 122/75 96 04/02/23 11:30 55 L 16 97/58 L 96 04/02/23 10:00 77 21 96 04/02/23 10:00 97/66 L 04/02/23 09:50 74 04/02/23 09:54 04/02/23 09:54 04/02/23 09:54 36.7 C 72 18 96/60 L 97 O2 Del Method 04/02/23 11:45 Room Air 04/02/23 11:30 Room Air 04/02/23 10:00 Room Air 04/02/23 10:00 04/02/23 09:50 04/02/23 09:54 Room Air 04/02/23 09:54 Room Air 04/02/23 09:54 Room Air Laboratory Results 04/02/23 04/02/23 04/02/23 Unknown 10:46 10:38 WBC RBC Hgb POC Hgb Hct POC Hct MCV MCH MCHC RDW Std Deviation RDW Coeff of Long Plt Count MPV Immature Gran % (Auto) Neut % (Auto) Lymph % (Auto) [place] % (Auto) Eos % (Auto) Baso % (Auto) Neut # (Auto) Lymph # (Auto) [place] # (Auto) Eos # (Auto) Baso # (Auto) Immature Gran # (Auto) PT INR APTT PTT Ratio Activ Coag Time Kaolin 209 H 161 H POC Sodium Sodium 143 POC Potassium Potassium 4.4 POC Chloride Chloride 106 Carbon Dioxide 29 POC Total CO2 Anion Gap 8 POC Anion Gap POC BUN BUN 24 H Creatinine 1.90 H POC Creatinine Est Cr Clr Drug Dosing 39.1 Est GFR ( Amer) 39.9 Est GFR (Non-Af Amer) 34.5 BUN/Creatinine Ratio 12.6 Glucose 117 H POC Glucose (other) Calcium 9.4 POC Ioniz Calcium Nicola Magnesium 2.0 Total Bilirubin 0.5 AST 28 ALT 26 Alkaline Phosphatase 36 Total Creatine Kinase 133 Troponin I High Sens 11.8 B-Natriuretic Peptide Total Protein 6.5 Albumin 4.4 Globulin 2.1 L Albumin/Globulin Ratio 2.1 H Lipase 31 TSH 04/02/23 04/02/23 04/02/23 09:59 09:55 09:55 WBC RBC Hgb POC Hgb 14.3 Hct POC Hct 42 MCV MCH MCHC RDW Std Deviation RDW Coeff of Long Plt Count MPV Immature Gran % (Auto) Neut % (Auto) Lymph % (Auto) [place] % (Auto) Eos % (Auto) Baso % (Auto) Neut # (Auto) Lymph # (Auto) [place] # (Auto) Eos # (Auto) Baso # (Auto) Immature Gran # (Auto) PT INR APTT PTT Ratio Activ Coag Time Kaolin POC Sodium 142 Sodium POC Potassium 4.3 Potassium POC Chloride 103 Chloride Carbon Dioxide POC Total CO2 25 Anion Gap POC Anion Gap 20.0 POC BUN 23 H BUN Creatinine POC Creatinine 2.1 H Est Cr Clr Drug Dosing Est GFR ( Amer) Est GFR (Non-Af Amer) BUN/Creatinine Ratio Glucose POC Glucose (other) 112 H Calcium POC Ioniz Calcium Nicola 1.10 L Magnesium Total Bilirubin AST ALT Alkaline Phosphatase Total Creatine Kinase Troponin I High Sens B-Natriuretic Peptide 385 H Total Protein Albumin Globulin Albumin/Globulin Ratio Lipase TSH 4.320 04/02/23 04/02/23 09:55 09:55 WBC 3.53 L RBC 4.44 L Hgb 14.2 POC Hgb Hct 42.0 POC Hct MCV 94.6 MCH 32.0 MCHC 33.8 RDW Std Deviation 50.1 H RDW Coeff of Long 14.4 Plt Count 110 L MPV 10.7 Immature Gran % (Auto) 0.3 Neut % (Auto) 63.3 Lymph % (Auto) 24.9 [place] % (Auto) 7.6 Eos % (Auto) 3.1 Baso % (Auto) 0.8 Neut # (Auto) 2.23 Lymph # (Auto) 0.88 L [place] # (Auto) 0.27 Eos # (Auto) 0.11 Baso # (Auto) 0.03 Immature Gran # (Auto) 0.01 PT 9.8 INR 0.9 APTT 26.1 PTT Ratio 0.9 Activ Coag Time Kaolin POC Sodium Sodium POC Potassium Potassium POC Chloride Chloride Carbon Dioxide POC Total CO2 Anion Gap POC Anion Gap POC BUN BUN Creatinine POC Creatinine Est Cr Clr Drug Dosing Est GFR ( Amer) Est GFR (Non-Af Amer) BUN/Creatinine Ratio Glucose POC Glucose (other) Calcium POC Ioniz Calcium Nicola Magnesium Total Bilirubin AST ALT Alkaline Phosphatase Total Creatine Kinase Troponin I High Sens B-Natriuretic Peptide Total Protein Albumin Globulin Albumin/Globulin Ratio Lipase TSH Diagnostic Findings Chest X-Ray 04/02/23 09:47 XR chest 1V portable CLINICAL HISTORY: Chest pain, nonspecific TECHNIQUE: Single frontal radiograph of the chest was obtained. Comparison: Comparison is made to chest radiograph 12/19/2019 FINDINGS: Median sternotomy wires are unchanged. The cardiomediastinal silhouette is normal. The lungs are clear. No evidence of pleural effusion or pneumothorax. IMPRESSION: No acute chest disease. ACT 112: Negative or not required by law. Electronically signed by: Terry Shine M.D. 04/02/2023 10:32 AM ECG Additional Comments: 02-APR-2023 11:31:27 [facility] ROUTINE RETRIEVAL Sinus bradycardia with 1st degree A-V block Inferior infarct (cited on or before 16-JAN-2023) ST & T wave abnormality, consider lateral ischemia Abnormal ECG When compared with ECG of 02-APR-2023 09:34, (unconfirmed) Vent. rate has decreased BY [address] no longer elevated in Inferior leads ST less depressed in Anterolateral leads T wave inversion less evident in Anterolateral leads 25mm/s10mm/[id number] 243CID: 1Referred by: REFERRED SELF Unconfirmed Vent. rate 52 BPM IL interval 248 ms QRS duration 110 ms QT/QTc 442/411 ms Code Status & VTE Plan VTE Prophylaxis Plan VTE Prophylaxis will be ordered: Yes (3) CHF (congestive heart failure) Heart failure chronicity: acute Heart failure type: unspecified Qualified Code(s): I50.9 - Heart failure, unspecified
[2023-04-02] MEDS ORDERED: ONDANSETRON INJ 2 MG/ML 2 ML VIAL IV PRN (12:04)
[2023-04-02] MEDS ORDERED: ACETAMINOPHEN 325 MG TAB PO PRN (12:04)
--- NOTE | 2023-04-02 13:01 | Cardiac Catheterization ---
[facility] Data: Cyber Legal Advisor Cardiac Status Clinical evaluation leading to the procedure CAD Presenation: STEMI Anginal Classification: CCS III (Dyspnea on exertion) Heart Failure: No Cardiogenic Shock within 24 Hours: No Cardiac Arrest within 24 Hours: No Imaging Studies Past 6 Months: Yes Stress Studies Past 6 Months: No STEMI OR Non-STEMI Symptom Onset Date: 04/02/23 Symptom Onset Time: 09:30 Thrombolytics: No Coronary Anatomy Dominant: Right Left Main (% Stenosis): Normal (Diffuse mild disease) LAD (% Stenosis): Ostial (Known to be 100% occluded) Circumflex (% Stenosis): Ostial (Known to be 100% occluded) RCA (% Stenosis): Ostial (Known to be 100% occluded) Ramus (% Stenosis): Normal (Small) Grafts - LAD (%): Normal ([place] vessel diffuse mild disease, stent patent. Retrograde flow to diagonal which has 95% ostial stenosis unchanged) Grafts - Circumflex (%): Ostial (Known to be occluded) and Normal Grafts - RCA (%): Normal (Widely patent. Mild [place] PDA and PLB disease. Retrograde flow up to the distal and mid RCA) Grafts - Ramus (%): Normal ([place] or diagonal. Known to be occluded) Diagnostic Physicians Name: Genaro Phillips MD, PhD Closure Device Percutaneous Entry Location: Both radial and femoral Closure Device: None-Manual Hold and Radial Band Recommendations: Medical Therapy and/or Counseling Cardiac Cath Procedure Full Procedure Date April 02, 2023 Pre-Procedure Diagnosis Pre-Procedure Diagnosis: STEMI AUC Score AUC Score: 9 Post-Procedure Diagnosis Post-Procedure Diagnosis: Severe CAD Procedure(s) Performed Procedure(s) Performed: Coronary Angiography, Ultrasound Guided Vascular Access and Bypass Graft Angiography Oil And Gas Lease Pumper Genaro Phillips MD, PhD Estimated Blood Loss Estimated Blood Loss: 5 mL Medication(s) Medication(s): Fentanyl, Heparin, Lidocaine 1%, Nicardipine, Nitroglycerin and Versed Summary of Findings Brief description: Patient was brought to the cardiac catheterization suite where he was shaved and prepped in a sterile fashion. Sedated using IV Versed and fentanyl. Soft tissues of the right groin were anesthetized using 2 mL of 1% Xylocaine. The right radial artery is accessed with a modified Seldinger technique and a 6 [place] radial artery glide sheath was placed. Patient was provided antispasmodics including nicardipine and nitroglycerin. We next obtained right femoral artery access. Soft tissues of the right groin were anesthetized using 10 mL of 1% Xylocaine. Using the ultrasound for guidance (image saved), the right femoral artery was accessed and a 6 [place] femoral artery sheath was placed. All catheters were advanced and exchanged over a 0.035 J-tip wire. Note: Patient's prior cardiac catheterization images were reviewed. Also, patient received IV heparin bolus in the emergency department and had already taken his aspirin and Plavix for the day. The LAD, circumflex, RCA, and 2 SVGs were previously known to be occluded. Therefore, we did not repeat angiography in these areas. Instead, we focused on the 2 known patent bypass grafts. TERRY to PDA angiography was performed using initially a 6 [place] JR4 guide catheter with repeat selective angiography using a 5 [place] IVAN diagnostic catheter. VICTORIA to LAD angiography was performed using a 6 [place] JR4 guide catheter. All catheters were removed. Limited right femoral artery angiography was performed to evaluate for closure. However, patient has a high bifurcation and we were not in the common femoral artery. Therefore, the sheath was removed and hemostasis was obtained using manual compression when the ACT was less than 160 seconds. The radial artery sheath was removed and hemostasis was obtained using the TR band. Patient remained hemodynamically stable and asymptomatic. He was returned to the recovery area. This ended the case. Coronary and bypass graft angiography findings: Left main trifurcates into LAD, circumflex, and ramus. The ostial LAD and circumflex are previously known to be occluded. The ramus was small at that time. Left main angiography was not repeated today. LAD: Known to be occluded Left: circumflex: Known to be occluded Ramus: Known to be small and not amenable to PCI RCA: Known to be occluded SVG #1: Known to be occluded SVG#2: known to be occluded TERRY to PDA: This is widely patent. It provides antegrade flow down the PDA and retrograde flow to the RCA (at least to the mid segment) and then provides posterolateral branch flow. Difficult to fully visualize but the PDA appears to have diffuse mild disease without acute lesion. The posterolateral branch may have mild thrombus as it transitions from the distal RCA but this is not well visualized. There is BRIAN-3 flow in both branches. VICTORIA to LAD: Large caliber and widely patent. Distal anastomosis on the distal LAD without stenosis. There is a previously placed stent distal to this anastomosis and that is widely patent. The distal and apical LAD after the stent have diffuse mild disease. There is also retrograde flow up the LAD to a diagonal branch. That diagonal branch is relatively large and has ostial to proximal disease of 95 to 99%. This is similar to prior catheterization. Not amenable to PCI. Summary: 1. Patient initially with shortness of breath and EKG concerning for inferior myocardial infarction. Patient without symptoms at the time of catheterization and coronary angiography without definitive acute lesion in the TERRY graft or the [place] PDA, posterolateral branch, or RCA. Also without lesion in the VICTORIA graft or distal [place] LAD/wraparound to explain EKG changes. Therefore, no target for PCI at this time. 2. Recommend patient be on heparin or Lovenox overnight and be placed under observation status in case there was either coronary vasospasm or thrombosis which resolved with heparin in the ER. Additional adjustments to his medical regimen may be considered by primary limousine and hearse upholsterer. Hemodynamics Rest Ao:: 103/65 mmHg Final Ao: 91/60 mmHg LV: Not performed Recommendations Recommendations: Medical Therapy and/or Counseling Radiation Exposure (mGy) 683 mGy, fluoroscopy time 5.2 minutes Contrast (mls) 133 mL Anesthesia 2 mg IV Versed, 50 mcg IV fentanyl. Start time 1017, end time 1114 Procedural Complication(s) None Disposition Recovery Room\PACU I attest to the content of the Intraoperative Record and any orders documented therein. Any exceptions are noted below. [facility] Card Cath Procedure Codes Cardiac Catheterization Procedure 1: Cardiovascular Cath Procedures: 26552 Coronaries and Grafts/IM (venous & atrial) (Grafts only) Therapeutic Services & Ancillary Procedure 2: Cardiovascular Tx and Anc Procedures: 68662 Ultrasonic Guidance Vascular Access Moderate Sedation Procedure 1: Sedation/Anesthesia: 72092 Mod Sedation by the same physician;Init15 Min Child Age 5 & Up (Initial 15 minutes, start 1017) Procedure 2: Sedation/Anesthesia: 02007 Mod Sedation by the same physician; Ea [id number] Minutes (Additional 42 min end time 1114) PG Care Time/CCT Total # of Minutes Spent Total Time Spent with Patient: Total time spent is greater than 50% in coordination of care (as documented) at patient's floor/unit and/or counseling patient:
[2023-04-02] MEDS: ENOXAPARIN 100 MG/1ML SYR SQ SCH (15:56)
[2023-04-02] MEDS: ASPIRIN 81 MG ECTAB PO SCH ×2 (15:57→20:34)
--- NOTE | 2023-04-02 16:43 | Electrocardiogram Report ---
Test Reason : Blood Pressure : / mmHG Vent. Rate : 052 BPM Atrial Rate : 052 BPM P-R Int : 248 ms QRS Dur : 110 ms QT Int : 442 ms P-R-T Axes : 076 045 109 degrees QTc Int : 411 ms Sinus bradycardia with 1st degree A-V block Serial changes of evolving Inferior infarct (cited on or before 16-JAN-2023) Abnormal ECG When compared with ECG of 02-APR-2023 09:34, (unconfirmed) Vent. rate has decreased BY [address] no longer elevated in Inferior leads ST less depressed in Anterolateral leads T wave inversion less evident in Anterolateral leads Confirmed by Manuel Armenta ([id number]) on 04/02/2023 4:42:46 PM Referred By: REFERRED SELF Confirmed By:Manuel Armenta
--- NOTE | 2023-04-02 16:54 | Cardiology Consultation ---
Date of Consultation April 02, 2023 Assessment & Plan (1) ST elevation (STEMI) myocardial infarction: (2) Ischemic cardiomyopathy: Plan Cardiac catheterization images reviewed. TERRY and VICTORIA grafts are patent. No targets for intervention identified. Severe [place] vessel disease documented with occluded vein graft to obtuse marginal branch vessels. Continue conservative medical management with clopidogrel, aspirin, Entresto, Ranexa, metoprolol succinate, transdermal nitro, and PCSK9 inhibitor. Observe patient overnight. Possible discharge in a.m. Postprocedural activity restrictions listed below. ACTIVITY RECOMMENDATIONS: It is common to feel weak and fatigue for a few days. * Do not drive or operate any motorized equipment for the next three days. * Limit stair usage (2 or 3 trips a day only) for the next three days. * Do not lift anything heavier than 10 pounds for the next three days. * Do not engage in vigorous exercise or any sports for the next five days. * You may shower the day after your procedure, but do not immerse the area for three days. Cleanse the site gently with soap and water. SPECIAL CARE INSTRUCTIONS: * You may replace the pressure dressing or band-aid the morning after the procedure. * After your procedure, it is normal to have a small bruise or small lump at the site. Examine your site daily for any change in the bruise or lump, redness, swelling, drainage or numbness. Notify your doctor if any change. BLEEDING: * If there is a small amount of bleeding at the site, lie down and apply firm pressure with a clean cloth for ten minutes. When the bleeding stops, lie quietly keeping the procedure limb straight for six hours. Notify your doctor as soon as possible. * If the bleeding does not stop after ten minutes or if there is a large amount of bleeding or spurting, call 911 immediately. Continue to lie down and hold firm pressure until help arrives. SKIN IRRITATION: * You may experience some redness and/or swelling in the area where radiation was administered. If any skin irritation occurs, please contact your family physician. History of Present Illness Reason for Consultation: STEMI Requesting Physician: Hetal Balderas PA-C Attending Physician: Genaro Phillips MD, PhD History of Present Illness 72-year-old male referred from cardiac rehab to the ER today due to shortness of breath and ECG evidence of inferior ST elevation with reciprocal changes. Patient was taken emergently to the cardiac catheterization lab. Coronary and bypass angiography reviewed. Patent VICTORIA to the LAD, and patent TERRY to RCA noted. No targets for intervention. Conservative medical management recommended. Repeat ECG performed at 11:31 AM demonstrates resolution of inferior ST elevation. Mild lateral ST depressions persist. High-sensitivity troponin minimally elevated. Patient seen examined the bedside. Resting comfortably. Denies any recent chest discomfort. Notes dyspnea on exertion which has been somewhat chronic over the past few weeks. No orthopnea, PND, or lower extremity edema. Cardiac history copied from the [facility] medical record: 1. CAD (S/P CABG x5 VICTORIA-D1-LAD, TERRY-distal RCA, SVG-OM1, SVG-OMII Gurjit 06/1993) 2. History of complex coronary anatomy, PCI and stenting of an SVG to OM1 graft in September 2016, at time of repeat cardiac catheterization performed October,, stent was patent with diffuse nonobstructive disease elsewhere for which ongoing medical management was recommended 3. Dyslipidemia with statin intolerance to agents including simvastatin, atorvastatin, and rosuvastatin, now on Praluent. Compliance encouraged. LDL improving 4. Hypertension - controlled 5. Acute STEMI 11/20/22 with cath revealing 90% stenosis of the VICTORIA to LAD anastomosis flown to [facility] for further intervention. Other severe [place] vessel disease and 2 occluded vein grafts. On 11/24/22 patient received PRESTON to the VITCORIA- LAD anastomosis into the mid LAD with excellent results. 6. HFrEF with recent acute CHF exacerbation requiring hospitalization at [facility] December 2022. LVEF 45% 7. Intermittent LBBB Allergies Allergy/AdvReac Type Severity Reaction Status Date / Time Iodinated Contrast Media Allergy Severe Anaphylaxis Verified 03/18/23 11:43 Ejpckjp-SEN-UeL Reductase Allergy Unknown MUSCLE Verified 03/18/23 11:43 Inhibitor ACHES [Vsvdixm-Yhq-Zmu Reductase Inhibitor] Home Medications Medication Instructions Recorded Confirmed Type cholecalciferol (vitamin D3) 125 5,000 unit PO QAM 05/22/18 04/02/23 History mcg (5,000 unit) tablet (Vitamin D3) clopidogrel 75 mg tablet (Plavix) 75 mg PO QAM 05/22/18 04/02/23 History nitroglycerin 0.4 mg sublingual 0.4 mg sublingual UD PRN Chest Pain 05/22/18 04/02/23 History tablet (Nitrostat) terazosin 2 mg capsule 2 mg PO HS 05/22/18 04/02/23 History vitamin E 268 mg (400 unit) capsule 400 unit PO QAM 05/22/18 04/02/23 History pyridoxine (vitamin B6) 100 mg 100 mg PO QAM 12/06/20 04/02/23 History tablet (Vitamin B-6) fluocinonide 0.05 % topical cream 1 applic topical BID PRN Rash 12/31/2004/02 History sertraline 100 mg tablet 150 mg PO DAILY 01/07/21 04/02/23 History aspirin 81 mg tablet,delayed 81 mg PO AMPM 01/10/21 04/02/23 History release fluticasone propionate 50 2 spray intranasal DAILY PRN Nasal 01/10/21 04/02/23 History mcg/actuation nasal Congestion spray,suspension Formulas Testosterone Cap 1 tab PO DAILY 12/16/22 04/02/23 History alirocumab 150 mg/mL subcutaneous 150 mg subcut .[id number] 12/16/22 04/02/23 History pen injector (Praluent Pen) allopurinol 300 mg tablet 150 mg PO QAM 12/16/22 04/02/23 History allopurinol 300 mg tablet 300 mg PO QPM 12/16/22 04/02/23 History amlodipine 10 mg tablet 10 mg PO QAM 12/16/22 04/02/23 History cyanocobalamin (vitamin B-12) 1,000 mcg PO DAILY 12/16/22 04/02/23 History 1,000 mcg tablet (Vitamin B-12) famotidine 20 mg tablet 20 mg PO BID 12/16/22 04/02/23 History metoprolol succinate 50 mg 50 mg PO QAM 12/16/22 04/02/23 History tablet,extended release 24 hr nitroglycerin 0.6 mg/hr 1 patch topical DAILY 12/16/22 04/02/23 History transdermal 24 hour patch pantoprazole 40 mg tablet,delayed 40 mg PO BID 12/16/22 04/02/23 History release ranolazine 500 mg tablet,extended 500 mg PO BID 12/16/22 04/02/23 History release,12 hr furosemide 20 mg tablet 20 mg PO DAILY PRN Edema 01/16/23 04/02/23 History sacubitril 24 mg-valsartan 26 mg 1 tab PO BID 04/02/23 04/02/23 History tablet (Entresto) Patient History Medical History Anxiety BPH (benign prostatic hyperplasia) BPH with obstruction/lower urinary tract symptoms CAD (coronary artery disease) "1992 - CABG x 5 09/2016 - PRESTON to SVG of 1st OM 10/2016 - repeat cath, no lesions amenable to intervention, medical management recommended" Follows with Dr. aKiser Chronic idiopathic thrombocytopenia F/U PCP Depression Dyslipidemia On injectable medications - cannot tolerate statins GERD (gastroesophageal reflux disease) Well controlled and stable with med Gout No current issues Hearing deficit BL [place] Has hearing aids - not wearing hearing aids History of colon cancer dx 2016; treated surgically + oral chemo History of COVID-19 08/2020; asymptomatic -TESTED BY [facility] AT [facility] History of intestinal obstruction No recent issues History of TIA (transient ischemic attack) -"SHOWS 7 ON SCANS" PER PT-F/U History of TMJ disorder Occ jaw clicking - no jaw locking HTN (hypertension) Myocardial Infarction 11/20/2022 Nocturnal hypoxia On home oxygen therapy 2 LPM qHS- does not always use secondary to nasal dryness Prediabetes Diet controlled Temporomandibular joint disorder CLICKS NO LOCKING Surgical History H/O arthroscopic knee surgery mult BL H/O heart artery stent x 1 H/O toe surgery History of cardiac catheterization 2016 [facility] [place] - 1 stent History of carpal tunnel surgery History of colonoscopy History of partial colectomy History of tonsillectomy and adenoidectomy S/P CABG x 5 1992 [employer] Family History Father Diabetes Esophagus cancer Stomach cancer Heart disease Other No family history of adverse response to anesthesia Social History Smoking Status: Former smoker Tobacco Type: Cigarettes Second Hand Exposure: No; Do You Dip or Chew Tobacco: No; Tobacco Cessation Education Requested by Patient: No Hx Alcohol Use: No Hx Substance Use: No Preferred Language: Turkmen Communication Ability: Effective Polisher Numeral Required: No Beliefs That Will Affect Care: None marital status: Current Living Situation: Family Current Living Situation Comment: family has apartment underneath patients home current occupational status: retired current occupation: Retired Other Information That Helps Us Care for You: No Feels Safe at Home: Yes Safety Concerns: Feels Safe At This Time Assistive Devices: Cane, Glasses, Hearing Aid - Bilateral, Nebulizer and Other Assistive Devices Comment: 02 At [facility] Review of Systems Review of Systems: All systems reviewed & are unremarkable except as noted in Subjective Physical Exam Constitutional: well developed and well nourished; no acute distress Respiratory: normal respiratory effort; no respiratory distress, no labored breathing and no retractions Cardiovascular: Rate/Rhythm: regular rate and regular rhythm Heart Sounds: normal S1 and normal S2; no murmur Vessels: femoral pulses present and radial pulses present; no JVD and no carotid bruit Gastrointestinal (Abdomen): Inspection/Auscultation: abdomen normal to inspection and normal bowel sounds; abdomen not distended Percussion/Palpation: abdomen soft; abdomen nontender, no guarding and abdomen not rigid Neurologic: CN's II-XI intact bilaterally and moves all extremities; no focal motor deficits Results & Data Vital Signs (Past 12 Hours) Vital Signs Temp Pulse Pulse Resp BP BP Pulse Ox 04/02/23 12:44 36.7 C 54 L 18 121/74 93 04/02/23 13:15 54 L 16 127/72 96 04/02/23 13:00 53 L 16 119/75 96 04/02/23 12:30 49 L 16 134/78 96 04/02/23 12:15 53 L 16 127/74 96 04/02/23 12:45 50 L 16 135/78 96 04/02/23 12:00 53 L 16 120/70 96 04/02/23 11:45 55 L 16 122/75 96 04/02/23 11:30 55 L 16 97/58 L 96 04/02/23 10:00 77 21 96 04/02/23 10:00 97/66 L 04/02/23 09:50 74 04/02/23 09:54 04/02/23 09:54 04/02/23 09:54 36.7 C 72 18 96/60 L 97 O2 Del Method 04/02/23 12:44 Room Air 04/02/23 13:15 Room Air 04/02/23 13:00 Room Air 04/02/23 12:30 Room Air 04/02/23 12:15 Room Air 04/02/23 12:45 Room Air 04/02/23 12:00 Room Air 04/02/23 11:45 Room Air 04/02/23 11:30 Room Air 04/02/23 10:00 Room Air 04/02/23 10:00 04/02/23 09:50 04/02/23 09:54 Room Air 04/02/23 09:54 Room Air 04/02/23 09:54 Room Air Laboratory Results Cardiac Enzymes 04/02/23 04/02/23 04/02/23 Range/Units 09:55 14:30 Unknown AST 28 (13-39) U/L Troponin I High Sens 20.7 H 11.8 (0-20) pg/ml B-Natriuretic Peptide 385 H (0-100) pg/ml Coagulation 04/02/23 04/02/23 Range/Units 09:55 09:55 PT 9.8 (9.0-12.0) Seconds APTT 26.1 (21.0-31.0) Seconds B-Natriuretic Peptide 385 H (0-100) pg/ml CBC 04/02/23 Range/Units 09:55 WBC 3.53 L (4.8-10.8) K/ul RBC 4.44 L (4.70-6.10) M/uL Hgb 14.2 (14.0-18.0) g/dl Hct 42.0 (42.0-52.0) % Plt Count 110 L (130-400) K/uL Neut # (Auto) 2.23 (1.40-6.50) K/uL Lymph # (Auto) 0.88 L (1.20-3.40) K/uL [place] # (Auto) 0.27 (0.11-0.59) K/uL Eos # (Auto) 0.11 (0.00-0.50) K/uL Baso # (Auto) 0.03 (0.00-0.20) K/uL Comprehensive Metabolic Panel 04/02/23 Range/Units Unknown Sodium 143 (136-145) mmol/L Potassium 4.4 (3.5-5.1) mmol/L Chloride 106 (98-107) mmol/L Carbon Dioxide 29 (21-32) mmol/L BUN 24 H (6-23) mg/dl Creatinine 1.90 H (0.6-1.4) mg/dl Glucose 117 H (70-99(Fasting)) mg/dl Calcium 9.4 (8.6-10.3) mg/dl AST 28 (13-39) U/L ALT 26 (7-52) U/L Alkaline Phosphatase 36 (34-104) U/L Total Protein 6.5 (6.0-8.3) gm/dl Albumin 4.4 (3.4-5.0) gm/dl Intake and Output 04/02/23 04/02/23 04/02/23 06:59 14:59 22:59 Other: Weight 93 kg Weight Measurement Method Chair Scale Patient Weight 04/03/23 06:59 Weight 93 kg (1) ST elevation (STEMI) myocardial infarction Involved coronary artery: unspecified coronary artery Qualified Code(s): I21.3 - ST elevation (STEMI) myocardial infarction of unspecified site
[2023-04-02] MEDS: RANOLAZINE 500 MG ER TAB PO SCH (20:34)
[2023-04-02] MEDS: PANTOprazole 40 MG TAB PO SCH (20:35)
[2023-04-02] MEDS: FAMOTIDINE 20 MG TAB PO SCH (20:35)
[2023-04-02] MEDS ORDERED: TERAZOSIN HCL 1 MG CAP PO SCH (21:00)
[2023-04-02] MEDS ORDERED: allopurinoL 300 MG TAB PO SCH (21:00)
[2023-04-02] MEDS ORDERED: VALSARTAN/SACUBITRIL 26/24MG TAB PO SCH ×2 (21:00)
[2023-04-03] MEDS: ENOXAPARIN 100 MG/1ML SYR SQ SCH (06:14)
[2023-04-03 07:14] LABS: Hematocrit (blood only) 39.9 % (42.0-52.0); Hemoglobin 14.1 g/dl (14.0-18.0); Mean Corpuscular Hemoglobin 32.6 pg (25.0-34.0); Mean Corpuscular Hgb Conc 35.3 g/dL (32.0-36.0); Mean Corpuscular Volume 92.1 fL (80.0-100.0); Mean Platelet Volume 9.8 fL (9.4-12.4); Platelet Count 113 K/uL (130-400); RDW Coefficient of Variation 13.6 % (11.5-14.5); RDW Standard Deviation 46.6 fL (36.4-46.3); Red Blood Count 4.33 M/uL (4.70-6.10); White Blood Count 5.55 K/ul (4.8-10.8)
[2023-04-03 07:59] LABS: Calcium 8.9 mg/dl (8.6-10.3); Creatinine Clr Calc Pharmacy 57.7 ml/min; Est GFR (African American) 64.4 ml/min; Est GFR (Non-African American) 55.5 ml/min; Potassium 4.1 mmol/L (3.5-5.1)
[2023-04-03] MEDS: PANTOprazole 40 MG TAB PO SCH (08:40)
[2023-04-03] MEDS: ASPIRIN 81 MG ECTAB PO SCH (08:41)
[2023-04-03] MEDS: FAMOTIDINE 20 MG TAB PO SCH (08:41)
[2023-04-03] MEDS: RANOLAZINE 500 MG ER TAB PO SCH (08:42)
[2023-04-03] MEDS ORDERED: allopurinoL 300 MG TAB PO SCH (09:00)
[2023-04-03] MEDS ORDERED: METOPROLOL SUCC 50MG EXT REL TAB PO SCH (09:00)
[2023-04-03] MEDS ORDERED: CHOLECALCIFEROL 5,000 UNITS 125 MCG TAB PO SCH (09:00)
[2023-04-03] MEDS ORDERED: amLODIPine BESYLATE 5 MG TAB PO SCH (09:00)
[2023-04-03] MEDS ORDERED: NITROGLYCERIN 0.6 MG/HR PATCH TD SCH (09:00)
[2023-04-03] MEDS ORDERED: CLOPIDOGREL BISULFATE 75 MG TAB PO SCH (09:00)
[2023-04-03] MEDS ORDERED: SERTRALINE HCL 50 MG TABLET PO SCH (09:00)
[2023-04-03] MEDS ORDERED: VALSARTAN/SACUBITRIL 26/24MG TAB PO SCH (09:35)
--- NOTE | 2023-04-03 12:38 | Cardiology Progress Note ---
Date of Service April 03, 2023 Assessment & Plan (1) ST elevation (STEMI) myocardial infarction: (2) Ischemic cardiomyopathy: Plan Cardiac catheterization images reviewed. TERRY and VICTORIA grafts are patent. No targets for intervention identified. Severe [place] vessel disease documented with occluded vein graft to obtuse marginal branch vessels. Continue conservative medical management with clopidogrel, aspirin, Entresto, Ranexa, metoprolol succinate, transdermal nitro, and PCSK9 inhibitor. Observe patient overnight. Possible discharge in a.m. Postprocedural activity restrictions listed below. ACTIVITY RECOMMENDATIONS: It is common to feel weak and fatigue for a few days. * Do not drive or operate any motorized equipment for the next three days. * Limit stair usage (2 or 3 trips a day only) for the next three days. * Do not lift anything heavier than 10 pounds for the next three days. * Do not engage in vigorous exercise or any sports for the next five days. * You may shower the day after your procedure, but do not immerse the area for three days. Cleanse the site gently with soap and water. SPECIAL CARE INSTRUCTIONS: * You may replace the pressure dressing or band-aid the morning after the procedure. * After your procedure, it is normal to have a small bruise or small lump at the site. Examine your site daily for any change in the bruise or lump, redness, swelling, drainage or numbness. Notify your doctor if any change. BLEEDING: * If there is a small amount of bleeding at the site, lie down and apply firm pressure with a clean cloth for ten minutes. When the bleeding stops, lie quietly keeping the procedure limb straight for six hours. Notify your doctor as soon as possible. * If the bleeding does not stop after ten minutes or if there is a large amount of bleeding or spurting, call 911 immediately. Continue to lie down and hold firm pressure until help arrives. SKIN IRRITATION: * You may experience some redness and/or swelling in the area where radiation was administered. If any skin irritation occurs, please contact your family physician. 04/03/2023 Patient clinically stable with improvement in baseline EKG abnormalities that resulted in repeat cardiac catheterization. Question dynamic flow issues. Would continue current medical therapies including dual antiplatelet therapy, topical nitrates and amlodipine No strenuous activity for 3 days Resume cardiac rehab at that point Admission and Anticipated Discharge Date Admission Date: April 02, 2023 Subjective Patient seen and examined, chart, medications, telemetry reviewed. Patient feels well this morning no chest pain or discomfort no dizziness or lightheadedness. Access sites right groin and right wrist healing well. No bleeding issues. EKG has normalized with resolve of ST elevation inferiorly. No acute troponin elevation. Review of Systems Review of Systems: All systems reviewed & are unremarkable except as noted in Subjective Physical Exam Constitutional: well developed and well nourished; no acute distress Neck: trachea midline, no thyromegaly Respiratory: normal respiratory effort; no respiratory distress, no labored breathing and no retractions Cardiovascular: Rate/Rhythm: regular rate and regular rhythm Heart Sounds: normal S1 and normal S2; no murmur Vessels: femoral pulses present and radial pulses present; no JVD and no carotid bruit Gastrointestinal (Abdomen): Inspection/Auscultation: abdomen normal to inspection and normal bowel sounds; abdomen not distended Percussion/Palpatio n: abdomen soft; abdomen nontender, no guarding and abdomen not rigid Neurologic: CN's II-XI intact bilaterally and moves all extremities; no focal motor deficits Results & Data Vital Signs (Past 12 Hours) Vital Signs Temp Pulse Pulse Resp BP Pulse Ox O2 Del Method 04/03/23 12:11 36.5 C 63 19 143/73 H 92 Room Air 04/03/23 07:58 36.3 C L 50 L 19 144/87 H 94 Room Air 04/03/23 07:42 58 L 04/03/23 03:00 57 L 04/03/23 02:45 36.6 C 55 L 18 130/76 93 Room Air Laboratory Results Laboratory Results - last 24 hr 04/02/23 04/02/23 04/03/23 14:30 17:56 06:38 WBC 5.55 RBC 4.33 L Hgb 14.1 Hct 39.9 L MCV 92.1 MCH 32.6 MCHC 35.3 RDW Std Deviation 46.6 H RDW Coeff of Long 13.6 Plt Count 113 L MPV 9.8 Sodium Potassium Chloride Carbon Dioxide Anion Gap BUN Creatinine Est Cr Clr Drug Dosing Est GFR ( Amer) Est GFR (Non-Af Amer) BUN/Creatinine Ratio Glucose Calcium Troponin I High Sens 20.7 H 18.2 04/03/23 06:38 WBC RBC Hgb Hct MCV MCH MCHC RDW Std Deviation RDW Coeff of Long Plt Count MPV Sodium 139 Potassium 4.1 Chloride 106 Carbon Dioxide 25 Anion Gap 8 BUN 23 Creatinine 1.28 D Est Cr Clr Drug Dosing 57.7 Est GFR ( Amer) 64.4 Est GFR (Non-Af Amer) 55.5 BUN/Creatinine Ratio 18.0 Glucose 142 H Calcium 8.9 Troponin I High Sens (1) ST elevation (STEMI) myocardial infarction Involved coronary artery: unspecified coronary artery Qualified Code(s): I21.3 - ST elevation (STEMI) myocardial infarction of unspecified site
--- NOTE | 2023-04-03 13:16 | Hospitalist Progress Note ---
Date of Service April 03, 2023 Assessment & Plan (1) CAD (coronary artery disease), kashia coronary artery: (2) LBBB (left bundle branch block): (3) CHF (congestive heart failure): (4) Dyslipidemia: (5) Recent myocardial infarction: (6) HTN (hypertension): Plan: Patient is a 72 yr male with H/O HTN, CAD s/p stents, CABG, chronic systolic diastolic CHF, history of colon cancer s/p sigmoidectomy in 2013, alcohol use, LBBB, GERD, BPH, depression, gout, history of splenomegaly, history of recurrent SBO's . Patient with history recent hospitalization 12/16/2022-12/21/2022 for CHF exacerbation was diuresed with Lasix and discharged on Entresto. Also recent history on 11/20/2022 had STEMI and was transferred to [facility] and had stent placement to LAD.He has known artery occlusion of 100% in the LAD, circumflex, RVA and 2 SVGs. 04/02/23 patient underwent cardiac cath after increased shortness of breath x1 day where cardiac cath was focused on to known patent bypass grafts. TERRY to PDA angiography showed mild disease without acute lesion, posterior lateral branch may have mild thrombus as it transitions from distal RCA. The VICTORIA to LAD angiography were completed, showing large caliber and widely patent, distal anastomosis in the distal LAD without stenosis. Previously placed stent distal to this anastomosis is widely patent, distal and apical LAD after the stent have diffuse mild disease. Retrograde flow up to the LAD to a diagonal branch, that diagonal branch is relatively large and has ostial to proximal disease of 95 to 99% which is similar to prior catheterization, not amendable to PCI. Severe multivessel CAD Ischemic cardiomyopathy S/P post cardiac cath:TERRY and VICTORIA grafts are patent. No targets for intervention identified. Severe multivessel disease with occluded vein graft to obtuse marginal branch results. Chronic systolic and diastolic CHF without acute exacerbation Essential hypertension, chronic Dyslipidemia, chronic, stable H/O STEMI, known LAD, left circumflex, RCA, left ramus known to have occlusions on previous cardiac cath S/P Cardiac Cath: 04/02/23 patient underwent cardiac cath after increased shortness of breath x1 day where cardiac cath was focused on to known patent bypass grafts. ----TERRY to PDA angiography showed mild disease without acute lesion, posterior lateral branch may have mild thrombus as it transitions from distal RCA. ----VICTORIA to LAD angiography were completed, showing large caliber and widely patent, distal anastomosis in the distal LAD without stenosis. Previously placed stent distal to this anastomosis is widely patent, distal and apical LAD after the stent have diffuse mild disease. Retrograde flow up to the LAD to a diagonal branch, that diagonal branch is relatively large and has ostial to proximal disease of 95 to 99% which is similar to prior catheterization, not amendable to PCI. --Negative Troponin -- Appreciate cardiology input Continue conservative management with aspirin, Plavix, Entresto, Ranexa, metoprolol succinate, transdermal nitro,PCSK9 inhibitor. Plan to discharge home Advised to follow-up with cardiology as outpatient Hypertension Chronic, stable Continue current medications Dyslipidemia continue statin H/O Gout -continue allopurinol DVT Px: Lovenox SQ CODE STATUS: FULL code Disposition Home Admission and Anticipated Discharge Date Admission Date: April 02, 2023 Subjective Patient is seen and examined at bedside States feeling well today Denies any chest pain, dyspnea, dizziness, nausea, vomiting, abdominal pain Discussed with cardiology Plan to discharge home today Review of Systems Review of Systems: All systems reviewed & are unremarkable except as noted in Subjective Physical Exam Physical Exam: Physical Exam: Vitals signs as noted above General Appearance:Moderately built and nourished, no apparent distress Head: normocephalic, Atraumatic Eyes: normal inspection, EOMI Neck: supple, Trachea midline Respiratory/Chest: Normal breath sounds, CTA, No accessory muscle use Cardiovascular: S1, S2, No murmur Abdomen/GI:Soft, Non tender, Bowel sounds present Extremities/Musculoskeletal:normal inspection, no edema Neurologic/Psych:AAOX3, grossly no focal neurological deficits Skin: normal color, warm Results & Data Results & Data Vital Signs (Past 12 Hours) Vital Signs Temp Pulse Pulse Resp BP Pulse Ox O2 Del Method 04/03/23 12:11 36.5 C 63 19 143/73 H 92 Room Air 04/03/23 07:58 36.3 C L 50 L 19 144/87 H 94 Room Air 04/03/23 07:42 58 L 04/03/23 03:00 57 L 04/03/23 02:45 36.6 C 55 L 18 130/76 93 Room Air Laboratory Results Short CBC 04/03/23 Range/Units 06:38 WBC 5.55 (4.8-10.8) K/ul Hgb 14.1 (14.0-18.0) g/dl Hct 39.9 L (42.0-52.0) % Plt Count 113 L (130-400) K/uL BMP 04/03/23 06:38 Sodium 139 Potassium 4.1 Chloride 106 Carbon Dioxide 25 BUN 23 Creatinine 1.28 D Glucose 142 H Calcium 8.9 (3) CHF (congestive heart failure) Heart failure chronicity: acute Heart failure type: unspecified Qualified Code(s): I50.9 - Heart failure, unspecified
--- NOTE | 2023-04-03 13:25 | Discharge Summary ---
Date of Service April 03, 2023 Admission HPI Per Admitting Provider This is a 72-year-old male with PMH HTN, CAD s/p stents, CABG, chronic systolic diastolic CHF, history of colon cancer s/p sigmoidectomy in 2013, alcohol use, LBBB, GERD, BPH, depression, gout, history of splenomegaly, history of recurrent SBO's presented to ER with complaint of abdominal pain x 1 day. Patient with history recent hospitalization 12/16/2022-12/21/2022 for CHF was diuresed with Lasix and discharged on Entresto. Also recent history on 11/20/2022 had STEMI and was transferred to [facility] and had stent placement to LAD. 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 Patient participates with cardiac rehab on , and on Wednesday did fine. Patient admits that yesterday he had some increased shortness of breath which was present even with rest yesterday morning, worse with minimal ADLs. He took a Lasix tablet in the morning and in the evening as he thought maybe there was some fluid accumulation and this would help him feel better. Denies any obvious fluid retention in his legs. He did not use any additional nitro although has been wearing his nitro patch as routinely prescribed. Prior to being transitioned onto Entresto about 2 weeks ago and being seen in cardiac rehab, he had been wearing oxygen 2 L at bedtime, but since then has not been using it. He did have an outpatient EKG done which showed some changes earlier this week, and then with the office learning about his symptoms this morning had his case discussed with Dr. Kaiser who referred him here. After having cardiac cath patient feels well, just fatigued and a bit drowsy, no chest pain, no shortness of breath. Admission Exam Per Admitting Provider General: awake, alert, no apparent distress, obese white male BMI 31.6 Head: Normocephalic, atraumatic ENT: PERRL, EOMI, no pharyngeal exudate, mucous membranes moist Chest: Clear to auscultation, on 2 LPM NC, no adventitious breath sounds Cardiac: Regular rate and rhythm, heart rate in the 50s, no murmur, no JVD, normal peripheral pulses, good capillary refill Abdominal: NABS x 4 quadrants, soft, nondistended, nontender to palpation, no rebound or guarding Extremities: Normal inspection, no peripheral edema or erythema, calfs nontender to palpation Psych: Normal mood and affect Neuro: AAO x 3, strength intact bilaterally and rated 5/5, no motor deficits, speech is clear, no peripheral sensory deficits Principal Diagnosis Severe multivessel coronary artery disease Ischemic cardiomyopathy Acute Kidney Injury Discharge Data Allergies Allergy/AdvReac Type Severity Reaction Status Date / Time Iodinated Contrast Media Allergy Severe Anaphylaxis Verified 03/18/23 11:43 Oqdyiqv-KDF-ZoD Reductase Allergy Unknown MUSCLE Verified 03/18/23 11:43 Inhibitor ACHES [Xyyykcz-Xxg-Riy Reductase Inhibitor] Consultations 04/02/23 12:04 Consult Cardiology Routine Procedures Performed Operation Date: 04/02/23 10:15 Actual Procedures p Cineradiography w/Routine Exam - Genaro Phillips MD, PhD p Aspiration/PCI w/PRESTON for Stemi - Genaro Phillips MD, PhD Laboratory Results WBC 5.55 K/ul (4.8-10.8) 04/03/23 06:38 RBC 4.33 M/uL (4.70-6.10) L 04/03/23 06:38 Hgb 14.1 g/dl (14.0-18.0) 04/03/23 06:38 POC Hgb 14.3 g/dl (14.0-18.0) 04/02/23 09:59 Hct 39.9 % (42.0-52.0) L 04/03/23 06:38 POC Hct 42 % (42-52) 04/02/23 09:59 MCV 92.1 fL (80.0-100.0) 04/03/23 06:38 MCH 32.6 pg (25.0-34.0) 04/03/23 06:38 MCHC 35.3 g/dL (32.0-36.0) 04/03/23 06:38 RDW Std Deviation 46.6 fL (36.4-46.3) H 04/03/23 06:38 RDW Coeff of Long 13.6 % (11.5-14.5) 04/03/23 06:38 Plt Count 113 K/uL (130-400) L 04/03/23 06:38 MPV 9.8 fL (9.4-12.4) 04/03/23 06:38 Immature Gran % (Auto) 0.3 % 04/02/23 09:55 Neut % (Auto) 63.3 % 04/02/23 09:55 Lymph % (Auto) 24.9 % 04/02/23 09:55 [place] % (Auto) 7.6 % 04/02/23 09:55 Eos % (Auto) 3.1 % 04/02/23 09:55 Baso % (Auto) 0.8 % 04/02/23 09:55 Neut # (Auto) 2.23 K/uL (1.40-6.50) 04/02/23 09:55 Lymph # (Auto) 0.88 K/uL (1.20-3.40) L 04/02/23 09:55 [place] # (Auto) 0.27 K/uL (0.11-0.59) 04/02/23 09:55 Eos # (Auto) 0.11 K/uL (0.00-0.50) 04/02/23 09:55 Baso # (Auto) 0.03 K/uL (0.00-0.20) 04/02/23 09:55 Immature Gran # (Auto) 0.01 K/uL (0.01-0.20) 04/02/23 09:55 PT 9.8 Seconds (9.0-12.0) 04/02/23 09:55 INR 0.9 (0.9-1.1) 04/02/23 09:55 APTT 26.1 Seconds (21.0-31.0) 04/02/23 09:55 PTT Ratio 0.9 04/02/23 09:55 Activ Coag Time Kaolin 209 SECONDS (94-140) H 04/02/23 10:46 POC Sodium 142 mmol/L (135-144) 04/02/23 09:59 Sodium 139 mmol/L (136-145) 04/03/23 06:38 POC Potassium 4.3 mmol/L (3.3-5.0) 04/02/23 09:59 Potassium 4.1 mmol/L (3.5-5.1) 04/03/23 06:38 POC Chloride 103 mmol/L (101-112) 04/02/23 09:59 Chloride 106 mmol/L (98-107) 04/03/23 06:38 Carbon Dioxide 25 mmol/L (21-32) 04/03/23 06:38 POC Total CO2 25 mmol/L (24-31) 04/02/23 09:59 Anion Gap 8 (3-11) 04/03/23 06:38 POC Anion Gap 20.0 mmol/L (16-25) 04/02/23 09:59 POC BUN 23 mg/dl (7-18) H 04/02/23 09:59 BUN 23 mg/dl (6-23) 04/03/23 06:38 Creatinine 1.28 mg/dl (0.6-1.4) D 04/03/23 06:38 POC Creatinine 2.1 mg/dl (0.6-1.3) H 04/02/23 09:59 Est Cr Clr Drug Dosing 57.7 ml/min 04/03/23 06:38 Est GFR ( Amer) 64.4 ml/min 04/03/23 06:38 Est GFR (Non-Af Amer) 55.5 ml/min 04/03/23 06:38 BUN/Creatinine Ratio 18.0 (10-20) 04/03/23 06:38 Glucose 142 mg/dl (70-99(Fasting)) H 04/03/23 06:38 POC Glucose (other) 112 mg/dl (70-99) H 04/02/23 09:59 Calcium 8.9 mg/dl (8.6-10.3) 04/03/23 06:38 POC Ioniz Calcium Nicola 1.10 mmol/l (1.12-1.32) L 04/02/23 09:59 Magnesium 2.0 mg/dl (1.7-2.4) 04/02/23 Unknown Total Bilirubin 0.5 mg/dl (0.2-1.0) 04/02/23 Unknown AST 28 U/L (13-39) 04/02/23 Unknown ALT 26 U/L (7-52) 04/02/23 Unknown Alkaline Phosphatase 36 U/L (34-104) 04/02/23 Unknown Total Creatine Kinase 133 U/L (30-223) 04/02/23 Unknown Troponin I High Sens 11.8 pg/ml (0-20) 04/02/23 Unknown B-Natriuretic Peptide 385 pg/ml (0-100) H 04/02/23 09:55 Total Protein 6.5 gm/dl (6.0-8.3) 04/02/23 Unknown Albumin 4.4 gm/dl (3.4-5.0) 04/02/23 Unknown Globulin 2.1 gm/dl (2.5-4.0) L 04/02/23 Unknown Albumin/Globulin Ratio 2.1 (0.9-2) H 04/02/23 Unknown Lipase 31 U/L (11-82) 04/02/23 Unknown TSH 4.320 uIu/ml (0.300-4.500) 04/02/23 09:55 Impressions Chest X-Ray 04/02/23 09:47 XR chest 1V portable CLINICAL HISTORY: Chest pain, nonspecific TECHNIQUE: Single frontal radiograph of the chest was obtained. Comparison: Comparison is made to chest radiograph 12/19/2019 FINDINGS: Median sternotomy wires are unchanged. The cardiomediastinal silhouette is normal. The lungs are clear. No evidence of pleural effusion or pneumothorax. IMPRESSION: No acute chest disease. ACT 112: Negative or not required by law. Electronically signed by: Terry Shine M.D. 04/02/2023 10:32 AM Ordered Studies 04/02/23 10:00 CL Cath Imgs for PACS use only Stat Hospital Course (1) CAD (coronary artery disease), [place] coronary artery: (2) LBBB (left bundle branch block): (3) CHF (congestive heart failure): (4) Dyslipidemia: (5) Recent myocardial infarction: (6) HTN (hypertension): Patient is a 72 yr male with H/O HTN, CAD s/p stents, CABG, chronic systolic diastolic CHF, history of colon cancer s/p sigmoidectomy in 2013, alcohol use, LBBB, GERD, BPH, depression, gout, history of splenomegaly, history of recurrent SBO's . Patient with history recent hospitalization 12/16/2022-12/21/2022 for CHF exacerbation was diuresed with Lasix and discharged on Entresto. Also recent history on 11/20/2022 had STEMI and was transferred to [facility] and had stent placement to LAD.He has known artery occlusion of 100% in the LAD, circumflex, RVA and 2 SVGs. 04/02/23 patient underwent cardiac cath after increased shortness of breath x1 day where cardiac cath was focused on to known patent bypass grafts. TERRY to PDA angiography showed mild disease without acute lesion, posterior lateral branch may have mild thrombus as it transitions from distal RCA. The VICTORIA to LAD angiography were completed, showing large caliber and widely patent, distal anastomosis in the distal LAD without stenosis. Previously placed stent distal to this anastomosis is widely patent, distal and apical LAD after the stent have diffuse mild disease. Retrograde flow up to the LAD to a diagonal branch, that diagonal branch is relatively large and has ostial to proximal disease of 95 to 99% which is similar to prior catheterization, not amendable to PCI. Severe multivessel CAD Ischemic cardiomyopathy S/P post cardiac cath:TERRY and VICTORIA grafts are patent. No targets for intervention identified. Severe multivessel disease with occluded vein graft to obtuse marginal branch results. Chronic systolic and diastolic CHF without acute exacerbation Essential hypertension, chronic Dyslipidemia, chronic, stable H/O STEMI, known LAD, left circumflex, RCA, left ramus known to have occlusions on previous cardiac cath S/P Cardiac Cath: 04/02/23 patient underwent cardiac cath after increased shortness of breath x1 day where cardiac cath was focused on to known patent bypass grafts. ----TERRY to PDA angiography showed mild disease without acute lesion, posterior lateral branch may have mild thrombus as it transitions from distal RCA. ----VICTORIA to LAD angiography were completed, showing large caliber and widely patent, distal anastomosis in the distal LAD without stenosis. Previously placed stent distal to this anastomosis is widely patent, distal and apical LAD after the stent have diffuse mild disease. Retrograde flow up to the LAD to a diagonal branch, that diagonal branch is relatively large and has ostial to proximal disease of 95 to 99% which is similar to prior catheterization, not amendable to PCI. --Negative Troponin -- Appreciate cardiology input Continue conservative management with aspirin, Plavix, Entresto, Ranexa, metoprolol succinate, transdermal nitro,PCSK9 inhibitor. Plan to discharge home Advised to follow-up with cardiology as outpatient -- Acute kidney injury-POA Admits to poor oral intake intermittently (unintentional--forgets while involved in work as per patient) Resumed Entresto Advised to get repeat blood test in 1 week and follow-up with PCP Hypertension Chronic, stable Continue current medications Dyslipidemia continue statin H/O Gout -continue allopurinol DVT Px: Lovenox SQ CODE STATUS: FULL code Disposition Home Total Time Total Time Spent Total Time Spent (In Minutes): 65 minutes Discharge Plan Discharge Items Patient Disposition: Home - Self-Care Reason For Visit: STEMI Discharge Diagnosis: Severe multivessel coronary artery disease Ischemic cardiomyopathy Acute Kidney Injury Activity: Per Instructions section Exercise/Sports: Gradually increase as tolerated Non-emergency contact: Primary Care Provider and Communications Representative Call non-emergency contact if: you have any medication questions, your symptoms worsen, your pain is concerning for you and you have a fever Follow-up/Referrals: Miguel Suarez MD [Primary Care Provider] - Diet: Heart Healthy Add Attending Provider Instructions: Follow-up with your primary care physician Dr. 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 Kaiser in 3-4 weeks -- Obtain blood test (basic metabolic panel) in 1 week and follow-up with your primary physician for monitoring of renal function. Seek immediate medical attention if your symptoms reoccur or worsen Please take all medications as instructed on discharge list below. Please call if you have any questions or problems. 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 * Do not drive or operate any motorized equipment for the next three days. * Limit stair usage (2 or 3 trips a day only) for the next three days. * Do not lift anything heavier than 10 pounds for the next three days. * Do not engage in vigorous exercise or any sports for the next five days. * You may shower the day after your procedure, butdo not immerse the area for three days. Cleanse the site gently with soap and water. SPECIAL CARE INSTRUCTIONS: * You may replace the pressure dressing or band-aid the morning after the procedure. * After your procedure, it is normal to have a small bruise or small lump at the site.Examine your site dailyfor any change in the bruise or lump, redness, swelling, drainage or numbness. Notify your doctor if any change. BLEEDING: * If there is a small amount of bleeding at the site, lie down and apply firm pressure with a clean cloth for ten minutes. When the bleeding stops, lie quietly keeping the procedure limb straight for six hours. Notify your doctor as soon as possible. *If the bleeding does not stop after ten minutes or if there is a large amount of bleeding or spurting, call 911 immediately.Continue to lie down and hold firm pressure until help arrives. SKIN IRRITATION: * You may experience some redness and/or swelling in the area where radiation was administered. If any skin irritation occurs, please contact your family physician. Pending Studies at Discharge: No Stand-Alone Forms: My [facility], Smoking Cessation Medications and DC Order Prescriptions: Continued fluocinonide 0.05 % cream 1 applic topical BID PRN (Reason: Rash) sertraline 100 mg tablet 150 mg PO DAILY Patient Comments: took 50 mg this morning terazosin 2 mg Capsule 2 mg PO HS cholecalciferol (vitamin D3) [Vitamin D3] 5,000 unit Tablet 5,000 unit PO QAM clopidogrel [Plavix] 75 mg Tablet 75 mg PO QAM nitroglycerin [Nitrostat] 0.4 mg Tablet, Sublingual 0.4 mg Sublingual UD PRN (Reason: Chest Pain) Rx Instructions: ONE TABLET UNDER THE TONGUE EVERY 5 MINUTES UP TO 3 DOSES FOR CHEST PAIN. vitamin E 400 unit Capsule 400 unit PO QAM fluticasone propionate 50 mcg/actuation [place],Suspension 2 spray INTRANASAL DAILY PRN (Reason: Nasal Congestion) aspirin 81 mg Tablet,Delayed Release (Dr/Ec) 81 mg PO AMPM Entresto 24-26 mg Tablet 1 tab PO BID pyridoxine (vitamin B6) [Vitamin B-6] 100 mg Tablet 100 mg PO QAM nitroglycerin 0.6 mg/hr patch 24 hour 1 patch topical DAILY metoprolol succinate 50 mg tablet extended release 24 hr 50 mg PO QAM cyanocobalamin (vitamin B-12) [Vitamin B-12] 1,000 mcg Tablet 1,000 mcg PO DAILY famotidine 20 mg tablet 20 mg PO BID pantoprazole 40 mg tablet,delayed release (DR/EC) 40 mg PO BID Praluent Pen 150 mg/mL Pen Injector 150 mg SUBCUT .[id number] Patient Comments: Due 12/17 amlodipine 10 mg tablet 10 mg PO QAM allopurinol 300 mg tablet 150 mg PO QAM allopurinol 300 mg tablet 300 mg PO QPM ranolazine 500 mg tablet extended release 12 hr 500 mg PO BID Formulas Testosterone Cap 1 tab PO DAILY furosemide 20 mg tablet 20 mg PO DAILY PRN (Reason: Edema) Discharge Orders: Discharge Order (Routine); Ordered 04/03/23 Ordered By: Coleman Veliz Admission Data Admit Date/Time: 04/02/23 11:07 Attending Provider: Coleman Veliz Admit Provider: Genaro Phillips Primary Care Provider: Miguel Suarez Other Providers: Herbie Collins
== END 2023-04-03 13:56 | disposition home or self-care (01) ==
LOC: ED 09:45 → 2S 10:07 → CC 10:07 → SUATTDRO 11:07

== ENCOUNTER 2023-08-09 07:43 | Inpatient (IN) ==
--- OUTSIDE RECORDS SUMMARY | 2023-08-09 07:48 | External Medical Summary | Summary of Care ---
Author Name Unknown Organization [facility] Address [address] [facility] [place] [address] Phone [phone] Care Team Providers Care Switcher Name Role Phone Miguel Suarez MD Primary Care Provider + Reason for Visit * Reason Onset Date Comments Adult Annual Wellness Visit, Initial Visit 07/20 Encounter Details Date Type Department Care Team (Late st Contact Info) Description 07/20/2023 10:00 AM EST Nurse Only Ancillary [facility] [address] [place] [facility] [place] [address] Formerly [facility] [address] [place] [address] Adult Annual Wellness Visit, Initial Visit Allergies Active Allergy Reactions Criticality Noted Date Comments Atorvastatin 03/04/2018 Myalgia Fluticasone Furoate-Vilanterol 12/24/2021 Tightness in chest Rosuvastatin Calcium 03/04/2018 myalgia Iodinated Contrast Media Anaphylaxis,Itching High 04/26/2008 Contrast dye Other Allergy (See Comments) 04/24/2022 Product Containing 8-rctwhlm-5-methylgl utaryl-coenzyme A Reductase Inhibitor (product) Simvastatin 03/04/2018 myalgia documented as of this encounter (statuses as of 07/20/2023) Medications Medication Sig Dispensed Refills Start Date End Date Status Cholecalciferol 5000 UNITS TABS Take 5,000 Units by mouth in the morning. 0 Active pyridOXINE (VITAMIN B-6) 100 MG Tablet Take 1 Tablet by mouth in the morning. 0 Active oxygen GAS 2 LPM bled through NC during hours of sleep 1 Each 0 08/30/2019 Active NF Formulas Testosterone Oral Capsule Take 1 Capsule by mouth every morning. 0 Active Allopurinol 300 MG Oral Tablet (Zyloprim)Indicatio ns:Chronic gout without tophus, unspecified cause, unspecified site TAKE ONE-HALF TABLET BY MOUTH EVERY MORNING AND 1 TABLET IN THE EVENING 135 Tablet 3 09/15/2022 Active Nitroglycerin 0.4 MG Sublingual Tablet Sublingual (Nitrostat)Indicati ons:Atherosclerosis of [place] post[place] coronary artery of [place] post[place] heart with other form of angina pectoris (HCC),Exertional angina,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 (HCC) PLACE 1 TAB UNDER THE TONGUE EVERY 5 MINUTES NEEDED FOR PAIN, CHEST. UP TO 3 DOSES IN 15 MINUTES 25 Tablet 1 09/30/2022 Active Sertraline HCl 100 MG Oral Tablet (Zoloft) TAKE 1 & 1/2 TABLETS BY MOUTH DAILY 135 Tablet 3 10/19/2022 Active Terazosin HCl 2 MG Oral Capsule TAKE 1 CAPSULE BY MOUTH EVERYDAY AT BEDTIME 90 Capsule 3 10/19/2022 Active Aspirin 81 MG Oral Tablet Chewable Chew & swallow 1 Tablet by mouth in the morning. 34 Tablet 11 11/26/2022 Active Nitroglycerin 0.6 MG/HR Transdermal Patch 24 Hour (Nitro-Dur) Place 1 Patch over 12 hours topically on the skin in the morning. 90 Patch 3 12/22/2022 Active amLODIPine Besylate 10 MG Oral Tablet (Norvasc) Take 1 Tablet by mouth in the morning. 90 Tablet 3 12/22/2022 Active Metoprolol Succinate ER 50 MG Oral Tablet Extended Release 24 Hour (toPROL XL) Take 1 Tablet by mouth in the morning. 90 Tablet 3 12/22/2022 Active Ranolazine ER 500 MG Oral Tablet Extended Release 12 Hour (Ranexa) Take 1 Tablet by mouth in the morning and 1 Tablet before bedtime. 180 Tablet 3 12/22/2022 Active Sacubitril-Valsarta n 24-26 MG Oral Tablet (Entresto) Take 1 Tablet by mouth in the morning and 1 Tablet in the evening. PATIENT REQUESTING 90 DAY SUPPLY - THIS REPLACES PREVIOUS PRESCRIPTION ON FILE. 180 Tablet 30 12/22/2022 Active Furosemide 20 MG Oral Tablet (Lasix) Take 1 Tablet by mouth as needed (swelling, weight gain and shortness of breath). 90 Tablet 3 01/18/2023 Active Vitamin E 400 UNIT Oral Capsule (Aquasol E) Take 1 Capsule by mouth in the morning. 0 Active Vitamin B-12 1000 MCG Oral Tablet (Cyanocobalamin) Take 1 Tablet by mouth in the morning. 0 Active Fluticasone Propionate 50 MCG/ACT Nasal Suspension (Flonase) Administer 1 [place] into nostril daily as needed. 0 Active Famotidine 20 MG Oral Tablet (Pepcid)Indications :Chronic nausea TAKE 1 TABLET BY MOUTH EVERY DAY IN THE MORNING AND BEFORE BEDTIME 180 Tablet 3 06/01/2023 Active Pantoprazole Sodium 40 MG Oral Tablet Delayed Release (Protonix) TAKE 1 TABLET BY MOUTH EVERY DAY IN THE MORNING AND BEFORE BEDTIME 180 Tablet 0 06/04/2023 Active Alirocumab 150 MG/ML Subcutaneous Solution Auto-injector Inject 150 mg under the skin every 14 days. 6 mL 3 06/18/2023 Active Clopidogrel Bisulfate 75 MG Oral Tablet (pLAVix)Indications :Atherosclerosis of coronary artery of [place] post[place] heart with stable angina pectoris, unspecified vessel or lesion type (HCC),Cerebrovascul ar disease, arteriosclerotic, post-stroke TAKE 1 TABLET BY MOUTH EVERY DAY 90 Tablet 3 06/22/2023 Active documented as of this encounter (statuses as of 07/20/2023) Active Problems Problem Noted Date Diagnosed Date Chronic combined systolic an d diastolic congestive heart failure 01/21/2023 Alcohol use 01/21/2023 HFrEF (heart failure with reduced ejection fract ion) 12/22/[address] elevation myocardial infarction (S CHARLES) 12/22/2022 Systolic congestive heart failure 12/03/2022 ROD (acute kidney injury) 11/26/2022 Primary osteoarthritis of both first carpometaca rpal joints 06/30/2022 Swelling of right hand 04/14/2022 Puncture wound 04/14/2022 Dysphagia 03/03/2022 Chronic nausea 03/03/2022 Primary osteoarthritis of fi rst carpometacarpal joint of right hand 12/27/2020 Well adult exam 04/12/2019 Overview: Daughter-Sherly. 03/31 inferior VT? Cath- no new lesions of CABG. 12/29 TTE [facility] similar. 11/28 new stent. TTE 45-49%. Mod wall motion abn. Mild AR. Mild dilated A root/ascend 10/28 6MWT ok. 10/27 UE EMG ok. 2017 colon 2mm polyp. Mak 5y 2014 colon CA Chronic major depressive disorder, recurrent epi sode 04/12/2019 Atherosclerosis of [place] post[place] co ronary artery of [place] post[place] heart with stable angina pectoris 07/06/2018 Lung nodules 05/28/2018 Splenomegaly 04/09/2018 History of colon cancer 04/08/2018 Statin intolerance 01/29/2018 Stable angina 02/01/2017 Coronary artery disease invo lving coronary bypass graft of [place] post[place] heart with angina pectoris 09/14/2016 S/P angioplasty with stent 09/11/2016 Allergy to radiographic contrast media 7 Hx of CABG 09/01/2016 Stasis dermatitis 11/13/2014 Other seborrheic keratosis 11/13/2014 BPH (benign prostatic hyperplasia) 10/20/2013 Osteoarthritis, knee 07/03/2013 Prediabetes 12/22/2012 Alcohol consumption binge drinking 12/22/2012 Gout 11/21/2012 Cerebrovascular disease, arteriosclerotic, post- stroke 01/19/2011 Dyslipidemia, goal LDL below 70 07/24/2009 Overview: Per Lipid Taxonomy. ADVANCE DIRECTIVE INFORMATION 07/09/2005 Overview: booklet given to pt today. Carpal tunnel syndrome, bilateral 07/08/2005 Esophageal reflux 01/30/2005 History of colonic polyps 09/04/2004 Overview: ICD-10 update of inactive term Actinic keratosis 11/17/2002 HTN, goal below 140/90 10/27/2002 Major depressive disorder 08/18/2001 Overview: ICD-10 update of inactive term SBO (small bowel obstruction) Overview: 04/23 admit. 11/21 [facility] improved w/NPO. Cont ETOH abuse documented as of this encounter (statuses as of 07/20/2023) Resolved Problems Problem Noted Date Diagnosed Date Resolved Date Acute ST elevation myocardia l infarction (STEMI) 11/21/2022 11/26/2022 COPD, group A, by GOLD 2017 classification 11/20/2019 11/14/2021 Overview: Per COPD GOLD Classification COPD, mild 07/09/2018 11/23/2019 Overview: 2018 PFTs mild obstruction. Breo started--feels breathing is better. Thrombocytopenia 07/06/2018 10/25/2019 Exertional angina 10/22/2016 01/01/2017 Coronary atherosclerosis of [place] posta coronary artery 12/26/2013 03/22/2019 Colon cancer 10/06/2013 08/18/2017 Cancer Staging:Clinical:Stage IIIA(T1, N1, M0) - Signed by Aiden Beauchamp MD on 11/24/2013 Pathologic: Unsigned Overview: 09/29/13 S/p partial sigmoid colectomy-Dr Steiner. Pathologic stage pT1N1a. (metastatic adenocarcinoma 08/25 nodes, invading submucosa) Pre-op testing 09/13/2013 02/25/2017 Routine general medical exam ination at a health care facility 01/25/2013 05/30/2018 Overview: 03/26 CT chest [facility] 6mm nodule. Mak 6mo ordered. 11/24 stopped crestor-myalgias. 08/25 CONSIDER EGD? 10/24 colon-2mm polyp PATH tubular adenoma. Mak 5y Preconetmplative to cut back ETOH. Stable low plat/wbc. 05/24 periph smear done ok. Colonoscopy 09/[address] Sebastian-for Synvisc Needs HARRIET fall 08/22 25mm colon polyp--Path---cancer--resected. 01/19 prostate discussed-declined 11/29/12 RUQ US @ [facility]--possible fatty infiltrate 11/11/12 DEXA @[facility]-- T -1.0 hip 07/20 Rib Xray-Right 7-9th rib frx 04/01/10CT neck @[facility]-mild osteophytes 2008 colonoscopy-WNL. 08/14/03. Colonoscopy-The polyp at 45 cm showed moderate atypia. long term care pharmacist current use of ant icoagulant therapy 12/24/2003 11/21/2012 Overview: ICD-10 update of inactive term BENIGN NEOPLASM LG BOWEL 08/31/2003 Calculus of kidney 08/18/2001 8 Coronary atherosclerosis Overview: S/p CABG x5 06/24/1993 VICTORIA-D1-LAD TERRY-RCA SVG-OM1 SVG-OM2 PURE HYPERCHOLESTEROLEM 07/09 Overview: Per Lipid Taxonomy. TIA (transient ischemic attack) 02/25/2017 documented as of this encounter (statuses as of 07/20/2023) Immunizations Name Administration Dates Next Due COVID-19 mRNA, LNP-s, No Pre serve, 2-Dose Series (Moderna) 10/16/2020,09/18/2020 COVID-19 mRNA, LNP-s, No Pre serve, 2-Dose Series (Pfizer) 07/21/2021,10/16/2020,09/18/2020 COVID-19, mRNA, LNP-s, PF, B ooster, 100mcg/0.5mg (Moderna) 07/21/2021 Pneumococcal Conjugate Vacc, 13 Valent (Prevnar) 10/29/2015 Pneumococcal Polysaccharide PPV23 (Pneumovax) 02/25/2017,08/07/2014 Pneumococcal Vaccine, Unspec ified Formulation 08/07/2014 Seasonal Influenza Virus Vac cine, Unspecified Formulation 06/09/2021,05/11/2020,06/15/2019,04/09,04/09/2018,05/09/2015,05/16/2009 Seasonal Influenza, PF, 6 M & above, IM , (FluLaval or Fluzone) 05/11/2020,07/07/2017,06/22/2014,04/19,04/20/2012,04/20/2011 Seasonal Influenza, Quadriva lent Hd (Fluzone Hd) 05/28/2023,06/29/2022,05/16/2021 Seasonal Influenza, Quadriva lent, No Preserve, IM 06/19/2015 Seasonal Influenza, Split, I IV3, With Preserve, Inj 06/02/2016,04/09/2013,04/23/2012,04/20,05/16/2009,05/01/2009(Deferred: Patient Refused - insurance),06/23/2007,11/30/2006(Defer red: Patient Refused) Seasonal Influenza, Trivalen t, Adjuvanted, 65+ yrs 06/15/2019 TDAP (age 10 and older)(Boostrix) 2021,08/03/2013,08/09/2010,03/12 Varicella Zoster Vaccine (Adult) 02/15/2015 Zoster Vaccine Recombinant (Shingrix) ,06/15/2019,04/12/2019,04/12 documented as of this encounter Social History Tobacco Use Types Packs/Day Years Used Date Smoking Tobacco: Former Cigarettes 1 10 Q uit: 05/29/1989 Smokeless Tobacco: Former Alcohol Use Standard Drinks/Week Comments Yes 16 (1 standard drink = 0.6 oz pure alcohol) whiskey:up to 3-4 drinks, 3-4 days/week PHQ-2 Answer Date Recorded PHQ Adult Total Score 0 04/08/2023 Hunger Vital Sign Answer Date Recorded Within the past 12 months, y ou worried that your food would run out before you got the money to buy more. Never true 04/08/20 23 Within the past 12 months, t he food you bought just didn't last and you didn't have money to get more. Never true 04/08/2023 Sex and Gender Information Value Date Recorded Sex Assigned at Male 04/08/2023 10:30 AM EDT Gender Identity Male 04/08/2023 10:28 AM EDT Sexual Orientation Straight 04/08/2023 10 :28 AM EDT Job Start Date Occupation Industry Not on file Not on file Not on file documented as of this encounter Last Filed Vital Signs Vital Sign Reading Time Taken Comments Blood Pressure 124/80 07/20/2023 9:57 AM EST Pulse 60 07/20/2023 9:57 AM EST Temperature 36.7 C (98 F) 07/20/2023 9:57 AM EST Respiratory Rate - - Oxygen Saturation - - Inhaled Oxygen Concentration - - Weight 95.7 kg (211 lb) 07/20/2023 9:57 AM EST Height 172.1 cm (5' 7.75") 07/20/2023 9:57 AM ES T Body Mass Index 32.32 07/20/2023 9:57 AM EST documented in this encounter Functional Status Functional Status Response Date of Assess ment Are you deaf or do you have serious difficulty h earing? No 11/20/2022 Are you blind or do you have serious difficulty seeing, even when wearing glasses? Yes-L eye 11/20/2022 Do you have serious difficul ty walking or climbing stairs? (5 years old or older) No 11/20/2022 Do you have difficulty dress ing or bathing? (5 years old or older) No 11/20/2022 Because of a physical, menta l, or emotional condition, do you have difficulty doing errands alone such as visiting a doctor s office or shopping? (15 years old or older) No 11/21/19 Cognitive Status Response Date of Assessm ent Because of a physical, menta l, or emotional condition, do you have serious difficulty concentrating, remembering, or making decisions? (5 years old or older) Yes-"short term memory is bad" 11/20/2022 documented as of this encounter Patient Instructions * Patient Instructions* Rhoda Zambrano RN - 07/20/2023 9:54 AM EST Hi Mr. Jamil, As your primary care physician, I know that regular visits with my patients who have several chronic conditions can go a long way in helping you stay healthy. Many times, the clinic team and I are in touch with you and/or other care team members between office visits to adjust medications, discuss any changes in your health, and review our care plan to make sure it is still meeting your needs. I am dedicated to helping you take a more active role in your overall care. It is important that there are resources available to you, so I created a personalized plan of care with a Health Calendar for you, which is included on the next page of this letter. Below is a list that summarizes your electronic health record: Health Maintenance Due: Health Maintenance Due Topic Date Due COLONOSCOPY-EVERY 5 YRS AGES 18-100 10/20/2022 COVID-19 Vaccine (2022-24 season) 2023 Current Medication List: (as of Visit date not found (in office), Visit date not found (telemedicine) ) Current Outpatient Medications Medication Sig Dispense Refill Cholecalciferol 5000 UNITS TABS Take 5,000 Units by mouth in the morning. pyridOXINE (VITAMIN B-6) 100 MG Tablet Take 1 Tablet by mouth in the morning. oxygen GAS 2 LPM bled through NC during hours of sleep 1 Each 0 NF Formulas Testosterone Oral Capsule Take 1 Capsule by mouth every morning. Allopurinol 300 MG Oral Tablet (Zyloprim) TAKE ONE-HALF TABLET BY MOUTH EVERY MORNING AND 1 TABLET IN THE EVENING 135 Tablet 3 Nitroglycerin 0.4 MG Sublingual Tablet Sublingual (Nitrostat) PLACE 1 TAB UNDER THE TONGUE EVERY 5 MINUTES NEEDED FOR PAIN, CHEST. UP TO 3 DOSES IN 15 MINUTES 25 Tablet 1 Sertraline HCl 100 MG Oral Tablet (Zoloft) TAKE 1 & 1/2 TABLETS BY MOUTH DAILY 135 Tablet 3 Terazosin HCl 2 MG Oral Capsule TAKE 1 CAPSULE BY MOUTH EVERYDAY AT BEDTIME 90 Capsule 3 Aspirin 81 MG Oral Tablet Chewable Chew & swallow 1 Tablet by mouth in the morning. 34 Tablet 11 Nitroglycerin 0.6 MG/HR Transdermal Patch 24 Hour (Nitro-Dur) Place 1 Patch over 12 hours topically on the skin in the morning. 90 Patch 3 amLODIPine Besylate 10 MG Oral Tablet (Norvasc) Take 1 Tablet by mouth in the morning. 90 Tablet 3 Metoprolol Succinate ER 50 MG Oral Tablet Extended Release 24 Hour (toPROL XL) Take 1 Tablet bymouth in the morning. 90 Tablet 3 Ranolazine ER 500 MG Oral Tablet Extended Release 12 Hour (Ranexa) Take 1 Tablet by mouth in the morning and 1 Tablet before bedtime. 180 Tablet 3 Sacubitril-Valsartan 24-26 MG Oral Tablet (Entresto) Take 1 Tablet by mouth in the morning and 1 Tablet in the evening. PATIENT REQUESTING 90 DAY SUPPLY - THIS REPLACES PREVIOUS PRESCRIPTION ON FILE. 180 Tablet 30 Furosemide 20 MG Oral Tablet (Lasix) Take 1 Tablet by mouth as needed (swelling, weight gain and shortness of breath). 90 Tablet 3 Vitamin E 400 UNIT Oral Capsule (Aquasol E) Take 1 Capsule by mouth in the morning. Vitamin B-12 1000 MCG Oral Tablet (Cyanocobalamin) Take 1 Tablet by mouth in the morning. Fluticasone Propionate 50 MCG/ACT Nasal Suspension (Flonase) Administer 1 [place] into nostril daily as needed. Famotidine 20 MG Oral Tablet (Pepcid) TAKE 1 TABLET BY MOUTH EVERY DAY IN THE MORNING AND BEFORE BEDTIME 180 Tablet 3 Pantoprazole Sodium 40 MG Oral Tablet Delayed Release (Protonix) TAKE 1 TABLET BY MOUTH EVERY DAY IN THE MORNING AND BEFORE BEDTIME 180 Tablet 0 Alirocumab 150 MG/ML Subcutaneous Solution Auto-injector Inject 150 mg under the skin every 14 days. 6 mL 3 Clopidogrel Bisulfate 75 MG Oral Tablet (pLAVix) TAKE 1 TABLET BY MOUTH EVERY DAY 90 Tablet 3 No current facility-administered medications for this visit. Current List of Allergies: (as of Visit date not found (in office), Visit date not found (telemedicine) ) Review of patient's allergies indicates: Allergen Reactions Iodinated Contrast Media Anaphylaxis and Itching Contrast dye Atorvastatin Myalgia Breo Ellipta [Fluticasone Furoate-Vilanterol] Tightness in chest Crestor [Rosuvastatin Calcium] myalgia Other Allergy (See Comments) Product Containing 4-snejrqp-4-methylglutaryl-coenzyme A Reductase Inhibitor (product) Simvastatin myalgia Most Recent Lab Results: Results for orders placed or performed in visit on 05/28/23 BASIC METABOLIC PANEL Result Value Ref Range BUN 29 (H) 6 - 20 mg/dL Creatinine 1.4 (H) 0.6 - 1.2 mg/dL Estimated Glomerular Filtration Rate 55 (L) >=60 mL/min Sodium 143 135 - 146 mmol/L Potassium 4.7 3.5 - 5.1 mmol/L Chloride 104 98 - 107 mmol/L CO2 28 22 - 32 mmol/L Anion Gap 11 7 - 15 mmol/L Glucose 101 70 - 120 mg/dL Calcium 9.4 8.4 - 10.2 mg/dL IRON SCREEN, INCLUDING TIBC Result Value Ref Range Iron 130 45 - 176 ug/dL Iron Binding Capacity 331 250 - 425 ug/dL Transferrin Saturation Percent 39 15 - 55 % FERRITIN Result Value Ref Range Ferritin 184 30 - 400 ng/mL TSH WITH FREE T4 IF INDICATED Result Value Ref Range TSH 1.74 0.27 - 4.20 uIU/mL CBC Result Value Ref Range WBC 3.80 (L) 4.00 - 10.80 K/uL RBC 4.11 4.50 - 5.25 M/uL HGB 13.6 (L) 14.0 - 16.8 g/dL HCT 40.3 40.0 - 48.4 % MCV 98.1 82.0 - 99.5 fL MCH 33.1 27.0 - 34.0 pg MCHC 33.7 32.0 - 36.0 g/dL RDW 13.6 11.5 - 15.5 % PLT 113 (L) 140 - 400 K/uL MPV 9.8 6.6 - 11.1 fL DIFFERENTIAL, AUTOMATED Result Value Ref Range WBC 3.80 (L) 4.00 - 10.80 K/uL Neutrophils % 69.2 40.0 - 75.0 % Lymphocytes % 18.7 18.0 - 42.0 % Monocytes % 7.6 1.0 - 11.0 % Eosinophils % 3.7 0.0 - 6.0 % Basophils % 0.8 0.0 - 2.0 % Absolute Neutrophils 2.63 1.80 - 7.70 K/uL Absolute Lymphocytes 0.71 (L) 1.00 - 4.80 K/ul Absolute Monocytes 0.29 0.00 - 1.10 K/uL Absolute Eosinophils 0.14 0.00 - 0.70 K/uL Absolute Basophils 0.03 0.00 - 0.20 K/uL *Note: Due to a large number of results and/or encounters for the requested time period, some results have not been displayed. A complete set of results can be found in Results Review. Sincerely, Miguel Suarez MD 07/20/2023 [facility] Calendar (as of Visit date not found (in office), Visit date not found (telemedicine) ) Care needs Care needs Last completed Due next Colonoscopy - every 5 years 10/20/2017 10/20/2022 COVID-19 Vaccine ( season) 2021 04/09/2023 A1C blood sugar test 11/21/2022 11/22/2023 Kidney Function Test 05/28/2023 05/28/2024 Urine albumin/creatinine test 01/21/2023 01/21/2026 Diphtheria, tetanus & pertussis vaccines (5 - Td or Tdap) 04/14/2022 04/14/2032 As you look over the recommended services, be sure to check with your insurance company to determine what's covered. [employer] is a great tool that helps you review your medical record online, including test results, doctor notes and your health summary. You can also schedule appointments with me and other members of your care team, request prescription refills and ask for advice related to your medical conditions at [email or web address] documented in this encounter Progress Notes * Rhoda Zambrano RN - 07/20/2023 9:54 AM EST Adult Annual Wellness Visit: Curtis Jamil is a 72 year old male who presents for an Adult Annual Wellness Visit. Depression Screening: Did the patient complete the screening questionnaire for Depression? Yes Is the patient's total score for Depression 15 or greater? No, no further intervention needed, unless requested by patient. Did the patient answer positively to the suicide question? No, no further intervention needed, unless requested by patient. In general, compared to other people your age, what would you say that your health is? Good Ht Readings from Last 1 Encounters: 07/20/23 1.721 m (5' 7.75") Wt Readings from Last 1 Encounters: 07/20/23 95.7 kg (211 lb) Body Mass Index: BMI Greater than 30 Body mass index is 32.32 kg/m. BP Readings from Last 1 Encounters: 07/20/23 124/80 Medical/Surgical/Family History Reviewed: Yes Past Medical History: Diagnosis Date Alcohol consumption binge drinking 12/22/2012 BENIGN NEOPLASM LG BOWEL 08/31/2003 BPH (benign prostatic hyperplasia) 10/20/2013 Calculus of kidney 08/18/2001 Carpal tunnel syndrome Colon cancer (HCC) 10/06/2013 09/29/13 S/p partial sigmoid colectomy-Dr Steiner. Pathologic stage pT1N1a. (metastatic adenocarcinoma 08/25 nodes, invading submucosa) Coronary atherosclerosis CAD Dyslipidemia, goal LDL below 160 Hypercholesterolemia Esophageal reflux 01/30/2005 Fracture, rib s/p fall from scaffolding Gout 11/21/2012 HTN, goal below 140/90 Hypertension Benign Lung nodule < 6cm on CT 05/28/2018 Prediabetes 12/22/2012 S/P angioplasty with stent 09/11/2016 SBO (small bowel obstruction) (HCC) 11/21 [facility] improved w/NPO SBO (small bowel obstruction) (HCC) 04/23 admit. 11/21 [facility] improved w/NPO. Cont ETOH abuse TIA (transient ischemic attack) 1979 [id number] on coumadin x30y Past Surgical History: Procedure Laterality Date CABG, ARTERY-VEIN, F[place] [facility] [place] CARDIAC ANGIOPLASTY, PERCUTANEOUS, 1 ARTERY Bilateral 11/24/2022 PTCA, CARDIAC ANGIOPLASTY, PERCUTANEOUS, 1 ARTERY performed by Johnny Schofield MD at [place] [facility] [place] CATH SCANNED RESULT 09/11/2016 cardiac stent-PRESTON the the SVG to 1st OM due to 95% stenosis. CARDIAC CATH-CARDIOLOGY ONLY 04/02/2023 Dr Paredes @[facility]. focus on CABG sites-no lesions. stent open. diagonal disease. CARPAL TUNNEL SURGERY 2004 right CARPAL TUNNEL SURGERY Left 01/03/2021 NEUROPLASTY MEDIAN NERVE AT CARPAL TUNNEL performed by Higinio Lindsay MD at OR [facility] COLONOSCOPY, DIAGNOSTIC (RECTUM) 09/05/2013 COLONOSCOPY FLEXIBLE PROXIMAL DIAGNOSTIC performed by Milvia Arnold MD at ENDOSCOPY [facility] COLONOSCOPY, DIAGNOSTIC (RECTUM) 10/01/2014 diverticulosis, repeat 3 yrs/COLONOSCOPY FLEXIBLE PROXIMAL DIAGNOSTIC performed by Milvia Arnold MD at ENDOSCOPY [facility] COLONOSCOPY, DIAGNOSTIC (RECTUM) 10/20/2017 adenomatous polyp, repeat 5 yrs/COLONOSCOPY FLEXIBLE PROXIMAL DIAGNOSTIC performed by Milvia Arnold MD at ENDOSCOPY [facility] CORONARY ANGIOGRAPHY W/LEFT HEART CATH 11/04/2016 CORONARY ANGIOGRAPHY W/LEFT HEART CATH performed by Liz Zhang MD at [place] [facility] EGD, FLEXIBLE, DIAGNOSTIC 04/28/2022 normal bx / ESOPHAGOGASTRODUODENOSCOPY (EGD), FLEXIBLE, TRANSORAL, DIAGNOSTIC performed by Syed Ferrara MD at ENDOSCOPY [facility] KNEE ARTHROSCOPY, DIAGNOSTIC Knee Arthroscopy, several MISCELLANEOUS ORDER ([facility] ONLY) sinus trubinate reduction MISCELLANEOUS ORDER ([facility] ONLY) left great toe surgery PARTIAL REMOVAL OF COLON 09/29/2013 Sigmoid colon resection with stapled end-to-end anastomosis, [facility], Dr. Steiner REMOVE TONSILS & ADENOIDS, UNDER 12 T & A, age<12 SYNVISC 1MG INJ, INTRA-ARTICULAR 04/2011 right knee done Family History Problem Relation Age of Onset Cancer Father esophageal Heart disease Father Heart Disorder Mother CHF, 92 . Other (diverticulitis) Mother Other (denies fh skin disorder) Mother no family hx Prostate Glaucoma Sister local. No Known Problems Daughter No Known Problems Son Has patient ever had cancer? History of cancer, type: adenocarcinoma and location: sigmoid colon Social History Tobacco Use Smoking status: Former Packs/day: 1.00 Years: 10.00 Additional pack years: 0.00 Total pack years: 10.00 Types: Cigarettes Quit date: 05/29/1989 Years since quittin.1 Smokeless tobacco: Former Substance Use Topics Alcohol use: Yes Alcohol/week: 16.0 standard drinks of alcohol Types: 16 1.5 oz of liquor per week Comment: whiskey:up to 3-4 drinks, 3-4 days/week Vaping/E-Cigarette Use Vaping/E-Cigarette Use Never User Vaping/E-Cigarette Substances Vaping/E-Cigarette Devices Tobacco/Alcohol screening completed today? Yes Hospital Care: Admissions (within the last year): [place] [facility] [place] [facility] Date of Admission: , , and ER within 30 days: No Does the patient have an Advance Directives/Living Will? No. Does the patient want information? No.Patient declined information Last Physical Exam: Last physical exam: 05/2023 Does patient see primary provider regularly? Yes Does patient see other providers? Yes, Specialist Patient Care Team updated? Yes Review of patient's allergies indicates: Allergen Reactions Iodinated Contrast Media Anaphylaxis and Itching Contrast dye Atorvastatin Myalgia Breo Ellipta [Fluticasone Furoate-Vilanterol] Tightness in chest Crestor [Rosuvastatin Calcium] myalgia Other Allergy (See Comments) Product Containing 0-gcpydaa-5-methylglutaryl-coenzyme A Reductase Inhibitor (product) Simvastatin myalgia Immunization History Administered Date(s) Administered COVID-19 mRNA, LNP-s, No Preserve, 2-Dose Series (Moderna) 09/18/2020, 10/16/2020 COVID-19 mRNA, LNP-s, No Preserve, 2-Dose Series (Pfizer) 09/18/2020, 10/16/2020, 07/21/2021 COVID-19, mRNA, LNP-s, PF, Booster, 100mcg/0.5mg (Moderna) 07/21/2021 Pneumococcal Conjugate Vacc, 13 Valent (Prevnar) 10/29/2015 Pneumococcal Polysaccharide PPV23 (Pneumovax) 06/27/1999, 08/07/2014, 02/25/2017 Pneumococcal Vaccine, Unspecified Formulation 08/07/2014 Seasonal Influenza Virus Vaccine, Unspecified Formulation 05/16/2009, 05/09/2015, 04/09/2018, 04/09/2019, 06/15/2019, 05/11/2020, 06/09/2021 Seasonal Influenza, PF, 6 M & above, IM , (FluLaval or Fluzone) 04/20/2011, 04/20/2012, 04/19/2013, 06/22/2014, 07/07/2017, 05/11/2020 Seasonal Influenza, Quadrivalent Hd (Fluzone Hd) 05/16/2021, 06/29/2022, 05/28/2023 Seasonal Influenza, Quadrivalent, No Preserve, IM 06/19/2015 Seasonal Influenza, Split, IIV3, With Preserve, Inj 06/23/2007, 05/16/2009, 04/20/2011, 04/23/2012,04/09/2013, 06/02/2016 Seasonal Influenza, Trivalent, Adjuvanted, 65+ yrs 06/15/2019 TD - Tetanus/Diptheria (ADULT) 03/12/2004 TDAP (age 10 and older)(Boostrix) 03/12/2004, 08/09/2010, 08/03/2013, 04/14/2022 Varicella Zoster Vaccine (Adult) 02/15/2015 Zoster Vaccine Recombinant (Shingrix) 04/12/2019, 04/12/2019, 06/15/2019, 06/15/2019 Current Outpatient Medications Medication Sig Dispense Refill Cholecalciferol 5000 UNITS TABS Take 5,000 Units by mouth in the morning. pyridOXINE (VITAMIN B-6) 100 MG Tablet Take 1 Tablet by mouth in the morning. NF Formulas Testosterone Oral Capsule Take 1 Capsule by mouth every morning. Allopurinol 300 MG Oral Tablet (Zyloprim) TAKE ONE-HALF TABLET BY MOUTH EVERY MORNING AND 1 TABLET IN THE EVENING 135 Tablet 3 Nitroglycerin 0.4 MG Sublingual Tablet Sublingual (Nitrostat) PLACE 1 TAB UNDER THE TONGUE EVERY 5 MINUTES NEEDED FOR PAIN, CHEST. UP TO 3 DOSES IN 15 MINUTES 25 Tablet 1 Sertraline HCl 100 MG Oral Tablet (Zoloft) TAKE 1 & 1/2 TABLETS BY MOUTH DAILY 135 Tablet 3 Terazosin HCl 2 MG Oral Capsule TAKE 1 CAPSULE BY MOUTH EVERYDAY AT BEDTIME 90 Capsule 3 Aspirin 81 MG Oral Tablet Chewable Chew & swallow 1 Tablet by mouth in the morning. 34 Tablet 11 Nitroglycerin 0.6 MG/HR Transdermal Patch 24 Hour (Nitro-Dur) Place 1 Patch over 12 hours topicallyon the skin in the morning. 90 Patch 3 amLODIPine Besylate 10 MG Oral Tablet (Norvasc) Take 1 Tablet by mouth in the morning. 90 Tablet 3 Metoprolol Succinate ER 50 MG Oral Tablet Extended Release 24 Hour (toPROL XL) Take 1 Tablet by mouth in the morning. 90 Tablet 3 Ranolazine ER 500 MG Oral Tablet Extended Release 12 Hour (Ranexa) Take 1 Tablet by mouth in the morning and 1 Tablet before bedtime. 180 Tablet 3 Sacubitril-Valsartan 24-26 MG Oral Tablet (Entresto) Take 1 Tablet by mouth in the morning and 1 Tablet in the evening. PATIENT REQUESTING 90 DAY SUPPLY - THIS REPLACES PREVIOUS PRESCRIPTION ON FILE.180 Tablet 30 Furosemide 20 MG Oral Tablet (Lasix) Take 1 Tablet by mouth as needed (swelling, weight gain and shortness of breath). 90 Tablet 3 Vitamin E 400 UNIT Oral Capsule (Aquasol E) Take 1 Capsule by mouth in the morning. Vitamin B-12 1000 MCG Oral Tablet (Cyanocobalamin) Take 1 Tablet by mouth in the morning. Fluticasone Propionate 50 MCG/ACT Nasal Suspension (Flonase) Administer 1 [place] into nostril daily as needed. Famotidine 20 MG Oral Tablet (Pepcid) TAKE 1 TABLET BY MOUTH EVERY DAY IN THE MORNING AND BEFORE BEDTIME 180 Tablet 3 Pantoprazole Sodium 40 MG Oral Tablet Delayed Release (Protonix) TAKE 1 TABLET BY MOUTH EVERY DAY IN THE MORNING AND BEFORE BEDTIME 180 Tablet 0 Alirocumab 150 MG/ML Subcutaneous Solution Auto-injector Inject 150 mg under the skin every 14 days. 6 mL 3 Clopidogrel Bisulfate 75 MG Oral Tablet (pLAVix) TAKE 1 TABLET BY MOUTH EVERY DAY 90 Tablet 3 oxygen GAS 2 LPM bled through NC during hours of sleep 1 Each 0 No current facility-administered medications for this visit. Patient Active Problem List Diagnosis Code Major depressive disorder F32.9 HTN, goal below 140/90 I10 Actinic keratosis L57.0 History of colonic polyps Z86.010 Esophageal reflux K21.9 Carpal tunnel syndrome, bilateral G56.03 ADVANCE DIRECTIVE INFORMATION Dyslipidemia, goal LDL below 70 E78.5 Cerebrovascular disease, arteriosclerotic, post-stroke I67.2, Z86.73 Gout M10.9 Prediabetes R73.03 Alcohol consumption binge drinking F10.10 Osteoarthritis, knee M17.9 BPH (benign prostatic hyperplasia) N40.0 Stasis dermatitis I87.2 Other seborrheic keratosis L82.1 SBO (small bowel obstruction) ([facility]) K56.609 Hx of CABG Z95.1 Allergy to radiographic contrast media Z91.041 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 ([facility]) I25.709 S/P angioplasty with stent Z95.820 Stable angina I20.89 Statin intolerance Z78.9 History of colon cancer Z85.038 Splenomegaly R16.1 Lung nodules R91.8 Atherosclerosis of [place] coronary artery of [place] heart with stable angina pectoris ([facility]) I25.118 Well adult exam Z00.00 Chronic major depressive disorder, recurrent episode ([facility]) F33.9 Primary osteoarthritis of first carpometacarpal joint of right hand M18.11 Dysphagia R13.10 Chronic nausea R11.0 Swelling of right hand M79.89 Puncture wound T14.8XXA Primary osteoarthritis of both first carpometacarpal joints M18.0 ROD (acute kidney injury) ([facility]) N17.9 Systolic congestive heart failure ([facility]) I50.20 HFrEF (heart failure with reduced ejection fraction) ([facility]) I50.[address] elevation myocardial infarction (STEMI) I25.2 Chronic combined systolic and diastolic congestive heart failure ([facility]) I50.42 Alcohol use Z78.9 Medication Compliance: Patient is able to obtain all of his medications? Yes Patient takes medications as prescribed? Yes Patient manages own medications: Yes Patient uses a pill box? Yes, refill(s) completed by self Dental Exam: Yes: Every 6 Months Eye Screening: Yes: Every year Are you having trouble with hearing? Yes Do you use an assistive device to help your hearing? Yes Exercise Screening: exercises 3-4 times per week Nutrition Assessment: Eats a balanced diet Pain Screening: Are you having any pain? No Sleep Screening Tool 'STOP': Do you snore? No Do you feel fatigued during the day? No Do you wake up feeling like you haven't slept? No Have you been told you stop breathing at night? No Do you gasp for air or choke while sleeping? No Have you been told you have Sleep Apnea? No Do you have high blood pressure or are on medication(s) to control high blood pressure? Yes SCORE: If you check YES to two or more questions, make a referral for Obstructive Sleep Apnea Patient and Caregiver Support System: Patient lives alone and but daughter and her fiance live in his basement apartment. They have theirown entrance. Means of Transportation: Drives. Not a concern. Patient lives in [address]. There is a basement but it is only accessible from the outside Community Resources: Not Applicable Functional Status and ADL Skills: Has patient ever had an amputation? No Functional Assessment: 100- Normal, no complaints, no evidence of disease Ambulation: Patient ambulates without assistive device. Independent Dressing: Gets clothes and dresses without any assistance: Independent Able to move freely in chair or bed including turning over: Independent Repositioning (bed or chair): Not applicable Transfers: Independent Toileting: Goes to bathroom, uses toilet, arranges clothes and returns without any assistance: Independent Toileting: continent of bladder and continent of bowel Feeding: Self Bathing: Self; tub/shower Requires none assistance with ADLs. Instrumental ADL's: Shopping: Independent Housekeeping: Independent Handling Finances: Independent DME Vendor Name: Not Applicable Fall Risk Assessment: Can the patient demonstrate that he can stand from a sitting position? Yes Has the patient had a fall within the last 6 months? No Does the patient have a problem with his gait or balance? No Does the patient take 4 or more prescription medicines? Yes Does the patient use sedatives or narcotics? No Fall Risk Factors Present: Older than age 70 Bpf-Mg-gkv-Go Test: Time began at 1000. Patient stood from sitting position and walked approximately 10 feet, returned and sat down. Total time for ibi-lz-fni-go test was 10 seconds. Lwo-Cp-vpr-Go Test completed? Yes Gender Specific Preventative Plan: Health Maintenance Topic Date Due COLONOSCOPY-EVERY 5 YRS AGES 18-100 10/20/2022 COVID-19 Vaccine (7 - 2022-24 season) 2023 HbA1c 11/22/2023 GFR 05/28/2024 Depression Screening 07/20/2024 Albumin/Creatinine Ratio 01/21/2026 DTaP,Tdap,and Td Vaccines (5 - Td or Tdap) 04/14/2032 Influenza Vaccine (FLU shot) Completed AAA Screening Completed Zoster Vaccines Completed Pneumococcal Vaccine: 65+ Years Completed Hepatitis B Aged Out MENINGOCOCCAL (MENACTRA/MENVEO) Aged Out GARDASIL-HPV IMMUNIZATION SERIES Aged Out Follow Up/ Referrals/Handouts: No further action needed Routine general medical examination at a health care facility (Primary) AWV completed today Systolic congestive heart failure (HCC) - Med reconciliation completed and compliance discussed. - pt to continue present medications. Stable angina - Med reconciliation completed and compliance discussed. - pt to continue present medications. Prediabetes -continue following with pcp Hemoglobin AIC Results: Lab Results Component Value Date/Time HEMOGLOBIN A1C - [facility] 5.9 (H) 11/21/2022 04:37 AM HEMOGLOBIN A1C - [facility] 5.7 (H) 05/20/2021 09:47 AM HEMOGLOBIN A1C - [facility] 6.0 (H) 10/31/2020 09:23 AM HEMOGLOBIN A1C - [facility] 6.0 (H) 06/21/2019 11:22 AM HEMOGLOBIN A1C - [facility] 5.8 (H) 07/06/2018 10:37 AM HEMOGLOBIN A1C - [facility] 5.1 11/04/2016 10:15 AM Episode of recurrent major depressive disorder, unspecified depression episode severity (HCC) - Med reconciliation completed and compliance discussed. - pt to continue present medications. HTN, goal below 140/90 - Med reconciliation completed and compliance discussed. - pt to continue present medications. BP Readings from Last 3 Encounters: 07/20/23 124/80 05/28/23 108/66 05/25/23 104/[address] elevation myocardial infarction (STEMI) - Med reconciliation completed and compliance discussed. - pt to continue present medications. Hx of CABG - Med reconciliation completed and compliance discussed. - pt to continue present medications. HFrEF (heart failure with reduced ejection fraction) (HCC) - Med reconciliation completed and compliance discussed. - pt to continue present medications. Gout - Med reconciliation completed and compliance discussed. - pt to continue present medications. Dyslipidemia, goal LDL below 70 - Med reconciliation completed and compliance discussed. - pt to continue present medications. Lipid Panel Results: Results for orders placed or performed during the hospital encounter of 11/20/22 LIPID PANEL WITHOUT DIRECT LDL Result Value Ref Range Triglycerides 64 <=174 mg/dL Cholesterol 109 <200 mg/dL HDL Cholesterol 49 >39 mg/dL Non-HDL Cholesterol 60 <=159 mg/dL LDL Cholesterol 47 <=129 mg/dL Results for orders placed or performed in visit on 08/31/22 LIPID PANEL WITH DIRECT LDL IF TG IS HIGH Result Value Ref Range Triglycerides 159 <=174 mg/dL Cholesterol 168 <200 mg/dL HDL Cholesterol 56 >39 mg/dL Non-HDL Cholesterol 112 <=159 mg/dL LDL Cholesterol 80 <=129 mg/dL 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 (HCC) - Med reconciliation completed and compliance discussed. - pt to continue present medications. Chronic combined systolic and diastolic congestive heart failure (HCC) - Med reconciliation completed and compliance discussed. - pt to continue present medications. Alcohol use -pt reports [place] to [place] a [place]. He drinks approx 4 beers while there Follow Up: Return in 1 year (on 07/20/2024) for 12 month Subsequent Adult Wellness Visit. | For: 12month Subsequent Adult Wellness Visit | Check-out note: 12 month Subsequent Adult Wellness Visit Would patient like to schedule next AWV visit? Yes Rhoda Zambrano RN AD8 Dementia Screening Interview Person answering questions: patient Remember, "Yes, a change" indicates that there has been a change in the last several years caused by cognitive (thinking and memory) problems 1. Problems with judgement (eg: problems making decisions, bad financial decisions, problems with thinking). No (0) 2. Less interest in hobbies/activities. No (0) 3. Repeats the same things over and over (questions, stories, or statements). No (0) 4. Trouble learning how to use a tool, appliance, or gadget (eg: VCR, computer, microwave, remote control). No (0) 5. Forgets correct month or year. No (0) 6. Trouble handling complicated financial affairs (eg: balancing checkbook, income taxes, paying bills). No (0) 7. Trouble remembering appointments. No (0) 8. Daily problems with thinking and/or memory. No (0) TOTAL AD8: 0 - AD8 Dementia Screening Score The final score is a sum of the number items marked "Yes, A Change". 0 - 1: Normal cognition; 2 or greater: Cognitive impairments is likely to be present - further testing required documented in this encounter Miscellaneous Notes * Pt Handout (on AVS) - Rhoda Zambrano RN - 07/20/2023 10:31 AM EST 40084 Preventing Falls: How to Prepare and What to Do Falling is not something you want to think about. But it can make a big difference to plan ahead. If you're prepared, you'll know how to get help. And you'll be less likely to panic if you fall. Thismeans you'll be able to do what's needed to get help right away. How to prepare Have someone check on you daily, either in person or by phone. Keep a list of emergency numbers near the phone. Always have a way to call for help. Keep a cell phone with you at all times. Or talk with your healthcare provider about how to set up a home monitoring service. This involves wearing a small device around your neck or wrist. If you fall, you can press the button on the device. This alerts emergency responders. Talk with your healthcare provider about an exercise program that's right for you. Regular exercise may reduce the risk of falling and the risk for injury related to a fall. Have good lighting in your home. Don't use throw rugs, because they can raise your risk of tripping and falling. Add grab bars in the bathroom to help reduce the risk of falling. Small changes canmake your home safer. Talk with your healthcare provider about making your home safer. What to do if you fall Above all, try to stay calm: If you start to fall, try to relax your body. This will reduce the impact of the fall. After you fall, press your monitor button, or use your phone to call for help. Don't monge to get up. First, make sure you're not hurt. Roll onto your side, then crawl to a chair. Pull yourself up onto the chair slowly. Get checked if you struck your head, lost consciousness, were confused afterward, or have any other concerns for injury. Tell your healthcare provider that you fell. They can check you for injuries as needed, try to determine what made you fall, and help prevent you from falling again. A note to family and friends If you're with a loved one when they start to fall, don't try to stop the fall. Ease the person to the floor carefully, so neither of you gets hurt. Don't leave the person alone. And don't try to move them, especially if they may have hurt their head or neck. Check for injuries. If help is needed right away, call 911. Last Reviewed Date: 07/09/202219998928-5397 [employer]. All rights reserved. This information is not intended as a substitute for professional medical care. Always follow your healthcare professional's instructions. * Pt Handout (on AVS) - Rhoda Zambrano RN - 07/20/2023 10:30 AM EST Images from the original note were not included. 70418 Eating Heart-Healthy Food: Using the DASH Plan Eating for your heart doesn?t have to be hard or boring. You just need to know how to make healthier choices. The DASH eating plan was created to help you do just that. DASH stands for Dietary Approaches to Stop Hypertension. This plan is proven to be healthier for your heart and to lower your riskfor high blood pressure. It can also help lower your risk for cancer, stroke, heart disease, osteoporosis, and diabetes. Choosing from each food group Choose foods from each of the food groups below each day. Try to get the recommended number of servings for each food group. The serving numbers are based on a diet of 2,000 calories a day. Talk withyour healthcare provider if you?re not sure about your calorie needs. Along with getting the correct servings, the DASH plan also advises less than 2,300 mg of salt (sodium) per day. Lowering sodium intake to 1,500 mg per day lowers blood pressure even more. (There's about 2,300 mg of sodium in 1 teaspoon of salt.) Grains Servings: 6 to 8 a day A serving is: 1 slice bread 1 ounce dry cereal Half a cup cooked rice, pasta, or cereal Best choices: Whole grains and any high-fiber grains Vegetables Servings: 4 to 5 a day A serving is: 1 cup raw leafy vegetable Half a cup cut-up raw or cooked vegetable Half a cup vegetable juice Best choices: Fresh or frozen vegetables prepared without added salt or fat Fruits Servings: 4 to 5 a day A serving is: 1 medium fruit One-quarter cup dried fruit Half a cup fresh, frozen, or canned fruit Half a cup of 100% fruit juices Best choices: A variety of fresh fruits of different colors. Whole fruits are a better choice than fruit juices. Low-fat or fat-free dairy Servings: 2 to 3 a day A serving is: 1 cup milk 1 cup yogurt One and a half ounces cheese Best choices: Skim or 1% milk, low-fat or fat-free yogurt or buttermilk, and low-fat cheeses Lean meats, poultry, fish Servings: 6 or fewer a day A serving is: 1 ounce cooked meats, poultry, or fish 1 egg Best choices: Lean poultry and fish. Trim away visible fat. Broil, grill, roast, or boil instead offrying. Remove skin from poultry before eating. Limit how much red meat you eat. Nuts, seeds, beans Servings: 4 to 5 a week A serving is: One-third cup nuts (1.5 ounces) 2 tablespoons nut butter or seeds Half a cup cooked dry beans or legumes Best choices: Dry roasted nuts with no salt added, lentils, kidney beans, garbanzo beans, and wholepinto beans Fats and oils Servings: 2 to 3 a day A serving is: 1 teaspoon vegetable oil 1 teaspoon soft margarine 1 tablespoon mayonnaise 2 tablespoons salad dressing Best choices: Nut and vegetable oils (nontropical vegetable oils), such as olive and canola oil Sweets Servings: 5 a week or fewer A serving is: 1 tablespoon sugar, maple syrup, or honey 1 tablespoon jam or jelly 1 half-ounce jelly beans (about 15) 1 cup lemonade Best choices: Dried fruit can be a satisfying sweet. Choose low-fat sweets. And watch your serving sizes! For more on the DASH eating plan, visit: National Heart, [employer], [employer] [place] at www.nhlbi.nih.gov/health-topics/afpa-scegsn-luxy Last Reviewed Date: 05/09/202119994937-1558 [employer]. All rights reserved. This information is not intended as a substitute for professional medical care. Always follow your healthcare professional's instructions. * Pt Handout (on AVS) - Rhoda Zambrano RN - 07/20/2023 10:30 AM EST Images from the original note were not included. 15243 Exercises to Prevent Falls Certain types of exercises may help make you less likely to fall. Try the ones below or do other exercises that your healthcare provider suggests. Depending on your health, you may need to start slowly. Don't let that stop you. Even small amountsof exercise can help you. Talk with your healthcare provider before starting any exercise program. Improve balance Many types of exercise can help improve balance. Lashell chi and yoga are good examples. Here's anotherone to try. You can do it anytime and almost anywhere. Stand next to a counter or solid support. Push yourself up onto your tiptoes. Hold for 5 seconds. If you start to lose your balance, hold on to the counter. Rest and repeat 5 times. Work up to holding for 20 to 30 seconds, if you can. Increase flexibility Being more flexible makes it easier for you to move around safely. Try exercises like the seatedhamstring stretch. o Sit in a chair and put one foot on a stool. o Straighten your leg and reach with both hands down either side of your leg. Reach as far down your leg as you can. o Hold for about 20 seconds. o Go back to the starting position. Then repeat 5 times. Switch legs. o o Build strength o Resistance exercises help build strength. You can do them without equipment. Or you can use weights, elastic bands, or special machines. One such exercise is called the biceps curl. You can hold a 1-pound weight or even a can of soup. Do this exercise at least 3 times a week. Strive for every day. Sit up straight in a chair. Keep your elbow close to your body and your wrist straight. Bend your arm, moving your hand up to your shoulder. Then slowly lower your arm. Repeat 5 times. Switch to the other arm. Build your staying power Aerobic exercises make your heart and lungs stronger so you can keep moving longer. Walking and swimming are 2 of the best types of exercises you can do. Using a stationary bike is great, too. Find an aerobic exercise that you enjoy. Start slowly and build up. Even 5 minutes is helpful. Aim for a goal of 30 minutes, at least 3 times a week. You don't have to do 30 minutes in 1 session. Break it up and walk a little throughout the day. Starting out safely and slowly Start easy. Slowly work up to doing more. Talk with your healthcare provider about the best exercises for you. Call senior centers or health clubs about exercise programs. If needed, have a family member watch you walk every so often to check your stability. Exercise with a friend. Choose an activity you both enjoy. Be sure to gently warm up and cool down. Drink fluids, such as water, to stay hydrated. If your provider recommended that you limit fluids, ask them how much is OK to drink while exercising. Consider lashell chi or yoga to strengthen your balance. Try exercises that you can do anytime, anywhere. Here are 2 examples. Have someone with you whenyou first try these: o Practice walking by placing one foot right in front of the other. o Stand up and sit down 10 times. Repeat this throughout the day. Last Reviewed Date: 06/09/202219994230-4658 [employer]. All rights reserved. This information is not intended as a substitute for professional medical care. Always follow your healthcare professional's instructions. documented in this encounter Plan of Treatment Upcoming Encounters Date Type Department Care Team (Latest Contact Info) Description 07/27/2023 10:30 AM EST Office Visit Sleep Disorders Ctr [facility] [address] [phone] Mica Hernandez CRNP [address] [place] [address] 09/13/2023 9:00 AM EST Hospital Encounter ENDO [facility], Endoscopy Room [facility] [address] [place] [phone] Milvia Arnold MD [address] [place] [address] 09/13/2023 9:00 AM EST - 09/13/2023 9:30 AM EST Surgery ENDO [facility], Endoscopy Room [facility] [address] [phone] Milvia Arnold MD [address] [place] [address] COLONOSCOPY FLEXIBLE PROXIMAL DIAGNOSTIC 11/10/2023 11:00 AM EDT Office Visit Cardiology, [facility] [address] [address] Vivienne Sunshine CRNP [address] [place] [address] 01/12/2024 12:00 PM EDT Office Visit Family Practice [facility] [address] [address] Miguel Suarez MD [address] [place] [address] 07/21/2024 10:00 AM EST Nurse Only Ancillary [facility] [address] [place] [address] [facility], Nurse Annual Wellness [facility] [address] [place] [address] Scheduled Procedures Name Priority Associated Diagnoses Date/Ti me COLONOSCOPY FLEXIBLE PROXIMAL DIAGNOSTIC Recall History of colon polyps History of colon cancer 09/13/2023 9:00 AM EST Health Maintenance Due Date Last Done Comments COLONOSCOPY-EVERY 5 YRS AGES 18-100 10/20/2022 10/20/2017, 10/20/2017, 10/01/2014, Additional history exists COVID-19 Vaccine ( season) 2023 07/21/2021, 07/21/2021, 10/16/2020, Additional history exists HbA1c 11/22/2023 11/21/2022, 10/07, 05/20/2021, Additional history exists GFR 05/28/2024 05/28/2023, 03/11, 12/28/2022, Additional history exists Depression Screening 07/20/2024 07/20/2023, 03/23/2018 (Declined) Albumin/Creatinine Ratio 01/21/2026 023, 10/20/2013, 04/13/2012, Additional history exists DTaP,Tdap,and Td Vaccines (5 - Td or Tdap) 04/14/2032 04/14/2022, 08/03/2013, 08/09/2010, Additional history exists Pneumococcal Vaccine: 65+ Years Completed 02/25/2017, 10/29/2015, 08/07/2014, Additional history exists Zoster Vaccines Completed 06/15/2019, 02/2019, 04/12/2019, Additional history exists Influenza Vaccine (FLU shot) Completed , 06/29/2022, 06/09/2021, Additional history exists AAA Screening Completed 06/07/2023 GARDASIL-HPV IMMUNIZATION SERIES Aged Out No longer eligible based on patient's age to complete this topic Hepatitis B Aged Out No longer eligi ble based on patient's age to complete this topic MENINGOCOCCAL (MENACTRA/MENVEO) Aged Out No longer eligible based on patient's age to complete this topic documented as of this encounter Medical Devices Implanted Type Area Service Car Operator Device Identifier Shelf Expiration Date Model / Serial / Lot Stent Bushra Xd Mr [id number] - [id number] Implanted:Qty: 1 on 11/24/2022 by Johnny Schofield [place] [facility] [employer] [id number] 07/24/2023 [id number] 220 / / [id number] documented as of this encounter Visit Diagnoses Diagnosis Routine general medical examination at a health care facility- Primary Systolic congestive heart failure (HCC) Unspecified systolic heart failure Stable angina Other and unspecified angina pectoris Prediabetes Other abnormal glucose Episode of recurrent major depressive disorder, unspecified depression episode severity (HCC) HTN, goal below 140/90 Unspecified essential hypertension History of ST elevation myocardial infarction (STEMI) Old myocardial infarction Hx of CABG Postsurgical aortocoronary bypass status HFrEF (heart failure with reduced ejection fraction) (HCC) Gout Gout, unspecified Dyslipidemia, goal LDL below 70 Other and unspecified hyperlipidemia 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 (HCC) Chronic combined systolic and diastolic congestive heart failure (HCC) Chronic combined systolic and diastolic heart failure ROD (acute kidney injury) (HCC) Acute kidney failure, unspecified Alcohol use History of colon polyps Personal history of colonic polyps History of colon cancer Personal history of malignant neoplasm of large intestine documented in this encounter Advance Directives Latest Code Status on File Code Status Date Activated Date Inactivated Comments Full Code 11/20/2022 8:50 PM 11/26/2022 4:57 PM This order reflects the patients wishes and were consensually agreed upon. Question Answer Comments Discussion of Advance Directives occurred with: Patient Code Status History Code Status Date Activated Date Inactivated Comments Full Code 09/11/2016 3:06 PM 09/12/2016 1:58 PM This or pete reflects the patients wishes and were consensually agreed upon. Question Answer Comments Discussion of Advance Directives occurred with: Not Discussed Does the patient have a Living Will? No Does the patient have Health Care Power of Ice Cream Freezer Assistant? No Care Teams Switcher Relationship Specialty Start Date End Date Miguel Suarez MD [address] [place] [address] PCP - General Family Medicine 07/25/14 documented as of this encounter
--- OUTSIDE RECORDS SUMMARY | 2023-08-09 07:48 | External Medical Summary | Summary of Care ---
Author Name Unknown Organization [facility] Address [address] [place] [address] Phone [phone] Care Team Providers Care Broth Mixer Name Role Phone Miguel Suarez MD Primary Care Provider + Reason for Visit * Reason Comments Follow Up Asthma Lung Nodule Encounter Details Date Type Department Care Team (Late st Contact Info) Description 07/27/2023 10:30 AM EST Office Visit Sleep Disorders Ctr [facility] [address] [place] [phone] Mica Hernandez CRNP [address] [address] Nocturnal hypoxemia*; Coronary artery disease involving coronary bypass graft of hoopa heart with angina pectoris ([facility]); HFrEF (heart failure with reduced ejection fraction) ([facility]) Allergies Active Allergy Reactions Criticality Noted Date Comments Atorvastatin 03/04/2018 Myalgia Fluticasone Furoate-Vilanterol 12/24/2021 Tightness in chest Rosuvastatin Calcium 03/04/2018 myalgia Iodinated Contrast Media Anaphylaxis,Itching High 04/26/2008 Contrast dye Other Allergy (See Comments) 04/24/2022 Product Containing 5-pofqthn-1-methylgl utaryl-coenzyme A Reductase Inhibitor (product) Simvastatin 03/04/2018 myalgia documented as of this encounter (statuses as of 07/27/2023) Medications Medication Sig Dispensed Refills Start Date End Date Status Cholecalciferol 5000 UNITS TABS Take 5,000 Units by mouth in the morning. 0 Active pyridOXINE (VITAMIN B-6) 100 MG Tablet Take 1 Tablet by mouth in the morning. 0 Active oxygen GAS 2 LPM bled through NC during hours of sleep 1 Each 0 08/30/2019 Active Additional Information Patient not taking.Reported on 07/27/2023 NF Formulas Testosterone Oral Capsule Take 1 Capsule by mouth every morning. 0 Active Allopurinol 300 MG Oral Tablet (Zyloprim)Indicatio ns:Chronic gout without tophus, unspecified cause, unspecified site TAKE ONE-HALF TABLET BY MOUTH EVERY MORNING AND 1 TABLET IN THE EVENING 135 Tablet 3 09/15/2022 Active Nitroglycerin 0.4 MG Sublingual Tablet Sublingual (Nitrostat)Indicati ons:Atherosclerosis of hoopa coronary artery of hoopa heart with other form of angina pectoris (HCC),Exertional angina,Coronary artery disease involving coronary bypass graft of hoopa heart with angina pectoris (HCC) PLACE 1 [...] 50 MCG/ACT Nasal Suspension (Flonase) Administer 1 [place] into nostril daily as needed. 0 Active [...] Tablet (pLAVix)Indications :Atherosclerosis of coronary artery of hoopa heart with stable angina pectoris, unspecified vessel or lesion type (HCC),Cerebrovascul ar disease, arteriosclerotic, post-stroke TAKE 1 TABLET BY MOUTH EVERY DAY 90 Tablet 3 06/22/2023 Active documented as of this encounter (statuses as of 07/27/2023) Active Problems Problem Noted Date Diagnosed Date [...] adult exam 04/12/2019 Overview: Daughter-Sherly. 03/31 inferior TN? Cath- no new lesions of CABG. 12/29 TTE [facility] similar. 11/28 new stent. TTE 45-49%. Mod wall motion abn. Mild AR. Mild dilated A root/ascend 10/28 6MWT ok. 10/27 UE EMG ok. 2017 colon 2mm polyp. Mak 5y 2014 colon CA Chronic major depressive disorder, recurrent epi sode 04/12/2019 Atherosclerosis of hoopa co ronary artery of hoopa heart with stable angina pectoris 07/06/2018 Lung nodules 05/28/2018 Splenomegaly 04/09/2018 History of colon cancer 04/08/2018 Statin intolerance 01/29/2018 Stable angina 02/01/2017 Coronary artery disease invo lving coronary bypass graft of hoopa heart with angina pectoris 09/14/2016 S/P angioplasty [...] (small bowel obstruction) Overview: 04/23 admit. 11/21 [facility] improved w/NPO. Cont ETOH abuse documented as of this encounter (statuses as of 07/27/2023) Resolved Problems Problem Noted Date Diagnosed Date Resolved Date Acute ST elevation myocardia l infarction (STEMI) 11/21/2022 11/26/2022 COPD, group A, by GOLD 2017 classification 11/20/2019 11/14/2021 Overview: Per COPD GOLD Classification COPD, mild 07/09/2018 11/23/2019 Overview: 2018 PFTs mild obstruction. Breo started--feels breathing is better. Thrombocytopenia 07/06/2018 10/25/2019 Exertional angina 10/22/2016 01/01/2017 Coronary atherosclerosis of hoopa coronary artery 12/26/2013 03/22/2019 Colon cancer 10/06/2013 08/18/2017 Cancer Staging:Clinical:Stage IIIA(T1, N1, M0) - Signed by Aiden Beauchamp MD on 11/24/2013 Pathologic: Unsigned Overview: 09/29/13 S/p partial sigmoid colectomy-Dr Steiner. Pathologic stage pT1N1a. (metastatic adenocarcinoma 08/25 nodes, invading submucosa) Pre-op testing 09/13/2013 02/25/2017 Routine general medical exam ination at a health care facility 01/25/2013 05/30/2018 Overview: 03/26 CT chest [facility] 6mm nodule. Mak 6mo ordered. 11/24 stopped crestor-myalgias. 08/25 CONSIDER EGD? 10/24 colon-2mm polyp PATH tubular adenoma. Mak 5y Preconetmplative to cut back ETOH. Stable low plat/wbc. 05/24 periph smear done ok. Colonoscopy 09/[address] Sebastian-for Synvisc Needs HARRIET fall 08/22 25mm colon polyp--Path---cancer--resected. 01/19 prostate discussed-declined 11/29/12 RUQ US @ [facility]--possible fatty infiltrate 11/11/12 DEXA @[facility]-- T -1.0 hip 07/20 Rib Xray-Right 7-9th rib frx 04/01/10CT neck @[facility]-mild osteophytes 2007 colonoscopy-WNL. 08/14/03. Colonoscopy-The polyp at 45 cm showed moderate atypia. intermediate current use of ant icoagulant therapy 12/24/2003 11/21/2012 Overview: ICD-10 update of inactive term BENIGN NEOPLASM LG BOWEL 08/31/2003 Calculus of kidney 08/18/2001 8 Coronary atherosclerosis Overview: S/p CABG x5 06/24/1993 VICTORIA-D1-LAD TERRY-RCA SVG-OM1 SVG-OM2 PURE HYPERCHOLESTEROLEM 07/09 Overview: Per Lipid Taxonomy. TIA (transient ischemic attack) 02/25/2017 documented as of this encounter (statuses as of 07/27/2023) Immunizations Name Administration Dates Next Due COVID-19 [...] Sign Reading Time Taken Comments Blood Pressure 120/72 07/27/2023 10:15 AM EST Pulse 56 07/27/2023 10:15 AM EST Temperature 35.6 C (96 F) 07/27/2023 10:15 AM EST Respiratory Rate 16 07/27/2023 10:15 AM EST Oxygen Saturation 96% 07/27/2023 10:15 AM EST Inhaled Oxygen Concentration - - Weight 95.7 kg (211 lb) 07/27/2023 10:15 AM EST Height 172.1 cm (5' 7.75") 07/27/2023 10:[address] Body Mass Index 32.32 07/27/2023 10:15 AM EST documented in this encounter Functional [...] bad" 11/20/2022 documented as of this encounter Progress Notes * Mica Hernandez CRNP - 07/27/2023 10:25 AM EST [facility] Curtis Jamil is a 72 year old male with PMH significant for CAD, HFrEF, CVD, hypertension, BPH, asthma, and nocturnal hypoxemia who presents to Pulmonary Medicine Clinic today for follow-up. Last clinic visit . Pulmonary History: History of childhood asthma Nocturnal hypoxemia without sleep disordered breathing Normal ABGs Former smoker, 10 pk yr history Occupational exposures Interim History: Multiple hospitalizations with [place], CHF. Had another stent placed. Medication management ongoing. Was told while in patient that oxygen during sleep has been adequate and supplementation no longer indicated (he recalls spot checks being completed, no continuous pulse oximetry). Continues with periods of angina on nitro patch, using nitro pill about twice a month. Minimal periods of shortness of breath noted intermittently. Denies cough. No fluid in abd or lower extremities. Pulmonary Medications: None Social History Tobacco Use Smoking Status Former Packs/day: 1.00 Years: 10.00 Additional pack years: 0.00 Total pack years: 10.00 Types: Cigarettes Quit date: 05/29/1989 Years since quittin.1 Smokeless Tobacco Former Patient Active Problem List Diagnosis Code Major [...] seborrheic keratosis L82.1 SBO (small bowel obstruction) ([facility]) K56.609 Hx of CABG Z95.1 Allergy to radiographic contrast media Z91.041 Coronary artery disease involving coronary bypass graft of hoopa heart with angina pectoris ([facility]) I25.709 S/P angioplasty with stent Z95.820 Stable angina I20.89 Statin intolerance Z78.9 History of colon cancer Z85.038 Splenomegaly R16.1 Lung nodules R91.8 Atherosclerosis of hoopa coronary artery of hoopa heart with stable angina pectoris ([facility]) I25.118 Well adult exam Z00.00 Chronic major depressive disorder, recurrent episode ([facility]) F33.9 Primary osteoarthritis of first carpometacarpal joint of right hand M18.11 Dysphagia R13.10 Chronic nausea R11.0 Swelling of right hand M79.89 Puncture wound T14.8XXA Primary osteoarthritis of both first carpometacarpal joints M18.0 ROD (acute kidney injury) ([facility]) N17.9 Systolic congestive heart failure (HCC) I50.20 HFrEF (heart failure with reduced ejection fraction) ([facility]) I50.[address] elevation myocardial infarction (STEMI) I25.2 Chronic combined systolic and diastolic congestive heart failure ([facility]) I50.42 Alcohol use Z78.9 Outpatient Medications Marked as Taking for the 07/27/23 encounter (Office Visit) with Mica Hernandez CRNP Medication Sig Clopidogrel Bisulfate 75 MG Oral Tablet (pLAVix) TAKE 1 TABLET BY MOUTH EVERY DAY Alirocumab 150 MG/ML Subcutaneous Solution Auto-injector Inject 150 mg under the skin every 14 days. Pantoprazole Sodium 40 MG Oral Tablet Delayed Release (Protonix) TAKE 1 TABLET BY MOUTH EVERY DAY IN THE MORNING AND BEFORE BEDTIME Famotidine 20 MG Oral Tablet (Pepcid) TAKE 1 TABLET BY MOUTH EVERY DAY IN THE MORNING AND BEFORE BEDTIME Fluticasone Propionate 50 MCG/ACT Nasal Suspension (Flonase) Administer 1 [place] into nostril daily as needed. Vitamin B-12 1000 MCG Oral Tablet (Cyanocobalamin) Take 1 Tablet by mouth in the morning. Vitamin E 400 UNIT Oral Capsule (Aquasol E) Take 1 Capsule by mouth in the morning. Furosemide 20 MG Oral Tablet (Lasix) Take 1 Tablet by mouth as needed (swelling, weight gain and shortness of breath). amLODIPine Besylate 10 MG Oral Tablet (Norvasc) Take 1 Tablet by mouth in the morning. Metoprolol Succinate ER 50 MG Oral Tablet Extended Release 24 Hour (toPROL XL) Take 1 Tablet by mouth in the morning. Nitroglycerin 0.6 MG/HR Transdermal Patch 24 Hour (Nitro-Dur) Place 1 Patch over 12 hours topicallyon the skin in the morning. Ranolazine ER 500 MG Oral Tablet Extended Release 12 Hour (Ranexa) Take 1 Tablet by mouth in the morning and 1 Tablet before bedtime. Sacubitril-Valsartan 24-26 MG Oral Tablet (Entresto) Take 1 Tablet by mouth in the morning and 1 Tablet in the evening. PATIENT REQUESTING 90 DAY SUPPLY - THIS REPLACES PREVIOUS PRESCRIPTION ON FILE. Aspirin 81 MG Oral Tablet Chewable Chew & swallow 1 Tablet by mouth in the morning. Sertraline HCl 100 MG Oral Tablet (Zoloft) TAKE 1 & 1/2 TABLETS BY MOUTH DAILY Terazosin HCl 2 MG Oral Capsule TAKE 1 CAPSULE BY MOUTH EVERYDAY AT BEDTIME Nitroglycerin 0.4 MG Sublingual Tablet Sublingual (Nitrostat) PLACE 1 TAB UNDER THE TONGUE EVERY 5 MINUTES NEEDED FOR PAIN, CHEST. UP TO 3 DOSES IN 15 MINUTES Allopurinol 300 MG Oral Tablet (Zyloprim) TAKE ONE-HALF TABLET BY MOUTH EVERY MORNING AND 1 TABLET IN THE EVENING NF Formulas Testosterone Oral Capsule Take 1 Capsule by mouth every morning. pyridOXINE (VITAMIN B-6) 100 MG Tablet Take 1 Tablet by mouth in the morning. Cholecalciferol 5000 UNITS TABS Take 5,000 Units by mouth in the morning. Social/occupational/living/family history: Has wood stove, home built late 70's/early 80's, 1 cat, dry basement, mold has been removed Daughter now living with him Smoked about 10 years on/off, up to 1 ppd, quit . 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 Exercise: rehab Alcohol: 5 days a week, 4 drinks Illicit Drugs: denies Diagnostics: - Sleep testing completed at [facility] prior to 2012, not available for review - PSG 11/22/2012 (BMI 31): AHI 3, SpO2 <89% for 7 minutes, SE 83%, REM 100 mins, PLMI 15 - PSG 04/2017 (wt 212): AHI 0.8, SpO2 <89% for 13 mins - Chest CT 09/23/2018: no emphysema, stable <6mm nodules - Noct ox RA 06/18/19 (wt 206): SpO2 <89% for 79 minutes, DAVIS 57 - Noct ox 2LPM 07/17/19: SpO2 patrick 88%, DAVIS 3 - ABG 09/23/21, RA: 7.42 / 42 / 82 / 27 - PFT 10/15/21: FVC 86%, FEV1 74% 2.27L (post BD 2.61L or 14%), FEV/FVC 65% (LLN 62%), TLC 107%, RV 165%, DlCO 96% - 6 MWT 05/25/2023: ambulated 466 meters on RA, no rest periods, SpO2 patrick 92% Asthma Control Test Question 07/27/2023 10:20 AM EST - Filed by Chayo Santizo LPN Please select the best response to the five questions below, by clicking the appropriate option button. In the past 4 weeks, how much of the time did your asthma keep you from getting as much done at work, school or at home? (4) A little of the time During the past 4 weeks, how often have you had shortness of breath? (3) 3 to 6 times a week During the past 4 weeks, how often did your asthma symptoms (wheezing, coughing, shortness of breath, chest tightness or pain) wake you up at night or earlier than usual in the morning? (4) Once or twice During the past 4 weeks, how often have you used your rescue inhaler or nebulizer medication (such as albuterol)? (5) Not at all How would you rate your asthma control during the past 4 weeks? (4) Well controlled Total ACT Adult Score (range: 5 - 25) 20 (Well Controlled) Total ACT Child Score (range: 0 - 27) Incomplete BP 120/72 | Pulse 56 | Temp 35.6 C (96 F) (Tympanic) | Resp 16 | Ht 1.721 m (5' 7.75") | Wt 95.7 kg (211 lb) | SpO2 96% | BMI 32.32 kg/m | BSA 2.14 m Physical Exam Vitals and nursing note reviewed. Motion And Time Study Teacher present: none. Constitutional: General: He is not in acute distress. Appearance: He is not ill-appearing or diaphoretic. Cardiovascular: Rate and Rhythm: Normal rate and regular rhythm. Heart sounds: No murmur heard. Pulmonary: Effort: Pulmonary effort is normal. No respiratory distress. Breath sounds: Normal breath sounds. Musculoskeletal: Right lower leg: No edema. Left lower leg: No edema. Skin: General: Skin is warm and dry. Neurological: Mental Status: He is alert and oriented to person, place, and time. Psychiatric: Mood and Affect: Mood normal. Thought Content: Thought content normal. Assessment and Plan: Nocturnal hypoxemia (Primary) Coronary artery disease involving coronary bypass graft of hoopa heart with angina pectoris (HCC) HFrEF (heart failure with reduced ejection fraction) ([facility]) Check overnight oximetry on RA. Discontinue if not indicated. Follow Up: Return if symptoms worsen or fail to improve. [facility] I spent a total of 30-39 minutes (exact time 30 mins) on the date of service in preparation, delivery, and documentation of the care provided to Curtis Jamil excluding any time spent in the performance of separately billed services. documented in this encounter Nursing Notes * Chayo Santizo LPN - 07/27/2023 10:20 AM EST Chief Complaint Patient presents with Follow Up Asthma Lung Nodule Interm History/Respiratory Symptoms Cough: dry Hemoptysis: no Sinus Symptoms: no Hospitalizations: November ED Trips: November Triggers: pollen Nocturnal: no CPAP/BiPAP/O2: no Flu Vaccine: 05/28/23 Pneumovax: 02/25/17 Prevnar: 10/29/15 COVID 19: 09/18/20,10/16/20, 07/21/21 Asthma Control Test Question 07/27/2023 10:20 AM EST - Filed by Chayo Santizo LPN Please select the best response to the five questions below, by clicking the appropriate option button. In the past 4 weeks, how much of the time did your asthma keep you from getting as much done at work, school or at home? (4) A little of the time During the past 4 weeks, how often have you had shortness of breath? (3) 3 to 6 times a week During the past 4 weeks, how often did your asthma symptoms (wheezing, coughing, shortness of breath, chest tightness or pain) wake you up at night or earlier than usual in the morning? (4) Once or twice During the past 4 weeks, how often have you used your rescue inhaler or nebulizer medication (such as albuterol)? (5) Not at all How would you rate your asthma control during the past 4 weeks? (4) Well controlled Total ACT Adult Score (range: 5 - 25) 20 (Well Controlled) Total ACT Child Score (range: 0 - 27) Incomplete MMRC Dyspnea Scale = 0 (I only get breathless with strenuous exercise) documented in this encounter Plan of Treatment Upcoming Encounters Date Type Department Care Team (Latest Contact Info) Description 09/13/2023 9:00 AM EST Hospital Encounter ENDO [facility], Endoscopy Room [facility] [address] [phone] Milvia Arnold MD [address] [place] [address] 09/13/2023 9:00 AM EST - 09/13/2023 9:30 AM EST Surgery ENDO [facility], Endoscopy Room [facility] [address] [place] [phone] Milvia Arnold MD [address] [place] [address] COLONOSCOPY FLEXIBLE PROXIMAL DIAGNOSTIC 11/10/2023 11:00 AM EDT Office Visit Cardiology, [facility] [address] [place] [address] Vivienne Sunshine CRNP [address] [place] [address] 01/12/2024 12:00 PM EDT Office Visit Family Practice [facility] [address] [place] [address] Miguel Suarez MD [address] [place] [place] [address] 07/21/2024 10:00 AM EST Nurse Only Ancillary [facility] [address] [place] [address] [facility], Nurse Annual Wellness [facility] [address] [place] [address] Scheduled Orders Name Type Priority Associated Diagnoses Orde r Schedule NOCTURNAL HOME OXIMETRY (OP) Procedures Routine Nocturnal hypoxemia Coronary artery disease involving coronary bypass graft of hoopa heart with angina pectoris (HCC) Ordered: 07/27/2023 Scheduled Procedures Name Priority Associated Diagnoses Date/Ti [...] this encounter Medical Devices Implanted Type Area Laboratory Helper Device Identifier Shelf Expiration Date Model / Serial / Lot Stent Synergy Xd Mr [id number] - [id number] Implanted:Qty: 1 on 11/24/2022 [place]of[place] [facility] [place] [employer] [id number] 07/24/2023 [id number] / / [id number] documented as of this encounter Visit Diagnoses Diagnosis Nocturnal hypoxemia- Primary Hypoxemia Coronary artery disease involving coronary bypass graft of hoopa heart with angina pectoris (HCC) HFrEF (heart failure with reduced ejection fraction) (HCC) History of colon polyps Personal history of [...] the patient have Health Care Power of Role Player? No Care Teams Broth Mixer Relationship Specialty Start Date End Date Miguel Suarez MD [address] [address] PCP - General Family Medicine 07/25/14 documented as of this encounter
--- OUTSIDE RECORDS SUMMARY | 2023-08-09 07:48 | External Medical Summary | Summary of Care ---
Author Name Unknown Organization [facility] Address [address] [address] Phone [phone] Care Team Providers Care Case Packer Name Role Phone Miguel Suarez MD Primary Care Provider + Reason for Visit * Reason Comments eRx-Medication Refill Encounter Details Date Type Department Care Team (Late st Contact Info) Description 06/03/2023 Refill Gastroenterology, [facility] [address] [place] [address] Staci Phillips MD [address] [place] [address] Allergies Active Allergy Reactions Criticality Noted Date Comments Atorvastatin 03/04/2018 Myalgia Fluticasone Furoate-Vilanterol 12/24/2021 Tightness in chest Rosuvastatin Calcium 03/04/2018 myalgia Iodinated Contrast Media Anaphylaxis,Itching High 04/26/2008 Contrast dye Other Allergy (See Comments) 04/24/2022 Product Containing 6-ettcaul-9-methylgl utaryl-coenzyme A Reductase Inhibitor (product) Simvastatin 03/04/2018 myalgia documented as of this encounter (statuses as of 07/28/2023) Medications Medication Sig Dispensed Refills Start Date End Date Status Cholecalciferol 5000 UNITS TABS Take 5,000 Units by mouth in the morning. 0 Active pyridOXINE (VITAMIN B-6) 100 MG Tablet Take 1 Tablet by mouth in the morning. 0 Active oxygen GAS 2 LPM bled through NC during hours of sleep 1 Each 0 0 Active Additional Information Patient not taking.Reported on 07/27/2023 NF Formulas Testosterone Oral Capsule Take 1 Capsule by mouth every morning. 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 UP TO 3 DOSES IN 15 MINUTES 25 Tablet 1 3 Active Sertraline HCl 100 MG Oral Tablet (Zoloft) TAKE 1 & 1/2 TABLETS BY MOUTH DAILY 135 Tablet 3 3 Active Terazosin HCl 2 MG Oral Capsule TAKE 1 CAPSULE BY MOUTH EVERYDAY AT BEDTIME 90 Capsule 3 3 Active Aspirin 81 MG Oral Tablet Chewable Chew & swallow 1 Tablet by mouth in the morning. 34 Tablet 11 3 Active Nitroglycerin 0.6 MG/HR Transdermal Patch 24 Hour (Nitro-Dur) Place 1 Patch over 12 hours topically on the skin in the morning. 90 Patch 3 3 Active amLODIPine Besylate 10 MG Oral Tablet (Norvasc) Take 1 Tablet by mouth in the morning. 90 Tablet 3 3 Active Metoprolol Succinate ER 50 MG Oral Tablet Extended Release 24 Hour (toPROL XL) Take 1 Tablet by mouth in the morning. 90 Tablet 3 3 Active Ranolazine ER 500 MG Oral Tablet Extended Release 12 Hour (Ranexa) Take 1 Tablet by mouth in the morning and 1 Tablet before bedtime. 180 Tablet 3 3 Active Sacubitril-Valsa rtan 24-26 MG Oral Tablet (Entresto) Take 1 Tablet by mouth in the morning and 1 Tablet in the evening. PATIENT REQUESTING 90 DAY SUPPLY - THIS REPLACES PREVIOUS PRESCRIPTION ON FILE. 180 Tablet 30 3 Active Furosemide 20 MG Oral Tablet (Lasix) Take 1 Tablet by mouth as needed (swelling, weight gain and shortness of breath). 90 Tablet 3 3 Active Vitamin E 400 UNIT Oral Capsule (Aquasol E) Take 1 Capsule by mouth in the morning. 0 Active Vitamin B-12 1000 MCG Oral Tablet (Cyanocobalamin) Take 1 Tablet by mouth in the morning. 0 Active Fluticasone Propionate 50 MCG/ACT Nasal Suspension (Flonase) Administer 1 [place] into nostril daily as needed. 0 Active Famotidine 20 MG Oral Tablet (Pepcid)Indicati ons:Chronic nausea TAKE 1 TABLET BY MOUTH EVERY DAY IN THE MORNING AND BEFORE BEDTIME 180 Tablet 3 3 Active Pantoprazole Sodium 40 MG Oral Tablet Delayed Release (Protonix) TAKE 1 TABLET BY MOUTH EVERY DAY IN THE MORNING AND BEFORE BEDTIME 180 Tablet 0 3 Active Pantoprazole Sodium 40 MG Oral Tablet Delayed Release (Protonix) Take by mouth 1 Tablet in the morning AND 1 Tablet before bedtime. 180 Tablet 3 2 06/04/20 23 Discontinued Clopidogrel Bisulfate 75 MG Oral Tablet (pLAVix)Indicati ons:Atherosclero sis of coronary artery of jackson heart with stable angina pectoris, unspecified vessel or lesion type (HCC),Cerebrovas cular disease, arteriosclerotic , post-stroke TAKE 1 TABLET BY MOUTH EVERY DAY 90 Tablet 3 2 06/22/20 23 Discontinued Alirocumab 150 MG/ML Subcutaneous Solution Auto-injector INJECT 150 MG (1 PEN) UNDER THE SKIN EVERY 14 DAYS 6 mL 3 2 06/18/20 23 Discontinued(Re fill) documented as of this encounter (statuses as of 07/28/2023) Active Problems Problem Noted Date Diagnosed Date [...] adult exam 04/12/2019 Overview: Daughter-Sherly. 03/31 inferior [place]? Cath- no new lesions of CABG. 12/29 TTE [facility] similar. 11/28 new stent. TTE 45-49%. Mod wall motion abn. Mild AR. Mild dilated A root/ascend 10/28 6MWT ok. 10/27 UE EMG ok. 2017 colon 2mm polyp. Mak 5y 2013 colon CA Chronic major depressive disorder, recurrent epi sode 04/12/2019 Atherosclerosis of jackson co ronary artery of jackson heart with stable angina pectoris 07/06/2018 Lung nodules 05/28/2018 Splenomegaly 04/09/2018 History of colon cancer 04/08/2018 Statin intolerance 01/29/2018 Stable angina 02/01/2017 Coronary artery disease invo lving coronary bypass graft of jackson heart with angina pectoris 09/14/2016 S/P angioplasty [...] bowel obstruction) Overview: 04/23 admit. 11/21 [facility] improved w/NPO. Cont ETOH abuse documented as of this encounter (statuses as of 07/28/2023) Resolved Problems Problem Noted Date Diagnosed Date Resolved Date Acute ST elevation myocardia l infarction (STEMI) 11/21/2022 11/26/2022 COPD, group A, by GOLD 2017 classification 11/20/2019 11/14/2021 Overview: Per COPD GOLD Classification COPD, mild 07/09/2018 11/23/2019 Overview: 2018 PFTs mild obstruction. Breo started--feels breathing is better. Thrombocytopenia 07/06/2018 10/25/2019 Exertional angina 10/22/2016 01/01/2017 Coronary atherosclerosis of jackson coronary artery 12/26/2013 03/22/2019 Colon cancer 10/06/2013 08/18/2017 Cancer Staging:Clinical:Stage IIIA(T1, N1, M0) - Signed by Aiden Beauhcamp MD on 11/24/2013 Pathologic: Unsigned Overview: 09/29/13 S/p partial sigmoid colectomy-Dr Steiner. Pathologic stage pT1N1a. (metastatic adenocarcinoma 08/25 nodes, invading submucosa) Pre-op testing 09/13/2013 02/25/2017 Routine general medical exam ination at a health care facility 01/25/2013 05/30/2018 Overview: 03/26 CT chest [facility] 6mm nodule. Mak 6mo ordered. 11/24 stopped crestor-myalgias. 08/25 CONSIDER EGD? 10/24 colon-2mm polyp PATH tubular adenoma. Mak 5y Preconetmplative to cut back ETOH. Stable low plat/wbc. 05/24 periph smear done ok. Colonoscopy 09/[address] Sebastian-for Synvisc Needs HARRIET fall 08/22 25mm colon polyp--Path---cancer--resected. 01/19 prostate discussed-declined 11/29/12 RUQ US @ [facility]--possible fatty infiltrate 11/11/12 DEXA @[facility]-- T -1.0 hip 07/20 Rib Xray-Right 7-9th rib frx 04/[facility]-mild [place]ophytes 2007 colonoscopy-WNL. 08/14/03. Colonoscopy-The polyp at 45 cm showed moderate atypia. custodial current use of ant icoagulant therapy 12/24/2003 11/21/2012 Overview: ICD-10 update of inactive term BENIGN NEOPLASM LG BOWEL 08/31/2003 Calculus of kidney 08/18/2001 8 Coronary atherosclerosis Overview: S/p CABG x5 06/24/1993 VICTORIA-D1-LAD TERRY-RCA SVG-OM1 SVG-OM2 PURE HYPERCHOLESTEROLEM 07/09 Overview: Per Lipid Taxonomy. TIA (transient ischemic attack) 02/25/2017 documented as of this encounter (statuses as of 07/28/2023) Immunizations Name Administration Dates Next Due COVID-19 [...] on file documented as of this encounter Functional Status Functional Status Response [...] bad" 11/20/2022 documented as of this encounter Miscellaneous Notes * Telephone Encounter - Gabriel Calderon - 07/28/2023 12:46 AM EST Received message from [facility] regarding patient needing appointment. Patient was notified. Successfully contacted patient and provided [facility] message. * Telephone Encounter - Dianne Villeda RP - 06/04/2023 9:39 AM EDTSigned Prescriptions: Disp Refills Pantoprazole Sodium 40 MG Oral Tablet Ana*180 Ta*0 Sig: TAKE 1 TABLET BY MOUTH EVERY DAY IN THE MORNING AND BEFORE BEDTIME Authorizing Provider: CARLOS JASON Ordering User: DIANNE VILLEDA * Telephone Encounter - Dianne Villeda RPh - 06/04/2023 9:38 AM EDT Please contact patient so that an appointment can be scheduled with his GASTROENTEROLOGY provider. Refill authorized to hold patient over in the mean time. Last Visit: 04/24/2022 (in office), Visit date not found (telemedicine) Next Visit: Visit date not found Dianne Oliver [facility] Clinical Pharmacist [facility] ([facility]) (Formerly Telepharmacy) [phone] documented in this encounter Plan of Treatment Upcoming Encounters Date Type Department Care Team (Latest Contact Info) Description 09/13/2023 9:00 AM [facility] Hospital Encounter [facility], Endoscopy Room [facility] [address] [place] [phone] Milvia Arnold MD [address] [place] [address] 09/13/2023 9:00 AM EST - 09/13/2023 9:30 AM EST Surgery ENDO [facility], Endoscopy Room [facility] [address] [place] [phone] Milvia Arnold MD [address] [place] [address] COLONOSCOPY FLEXIBLE PROXIMAL DIAGNOSTIC 11/10/2023 11:00 AM EDT Office Visit Cardiology, [facility] [address] [place] [address] Vivienne Sunshine CRNP [address] [place] [address] 01/12/2024 12:00 PM EDT Office Visit Family Practice [facility] [address] [place] [address] Miguel Suarez MD [address] [place] [address] 07/21/2024 10:00 AM EST Nurse Only Ancillary [facility] [address] [place] [address] [facility], Nurse Annual Wellness [facility] [address] [place] [address] Scheduled Procedures Name Priority Associated Diagnoses Date/Ti [...] Screening 07/20/2024 07/20/2023, 03/23/2018 (Declined) Albumin/Creatinine Ratio 01/21/20262 023, 10/20/2013, 04/13/2012, Additional history exists DTaP,Tdap,and [...] this encounter Medical Devices Implanted Type Area Camera Tuning Engineer Device Identifier Shelf Expiration Date Model / Serial / Lot Stent Synergy Xd Mr [id number] - [id number] Implanted:Qty: 1 on 11/24/2022 by Johnny Schofield MD at [facility] [employer] [id number] 07/24/2023 [id number] / / [id number] documented as of this encounter Advance Directives Latest Code Status [...] the patient have Health Care Power of [place] Gold Attendant? No Care Teams Case Packer Relationship Specialty Start Date End Date Miguel Suarez MD [address] [place] [phone] PCP - General Family Medicine 07/25/14 documented as of this encounter
--- OUTSIDE RECORDS SUMMARY | 2023-08-09 07:49 | External Medical Summary | Summary of Care ---
Author Name Unknown Organization [facility] Address [address] [facility] [place] [address] Phone [phone] Care Team Providers Care Brush Filler Hand Name Role Phone Miguel Suarez MD Primary Care Provider + Reason for Visit * Reason Comments Medication Refill Encounter Details Date Type Department Care Team (Late st Contact Info) Description 07/14/2023 Refill Cardiology, [facility] [address] [place] [address] Genaro Kaiser, DO [address] [place] [address] Allergies Active Allergy Reactions Criticality Noted Date Comments Atorvastatin 03/04/2018 Myalgia Fluticasone Furoate-Vilanterol 12/24/2021 Tightness in chest Rosuvastatin Calcium 03/04/2018 myalgia Iodinated Contrast Media Anaphylaxis,Itching High 04/26/2008 Contrast dye Other Allergy (See Comments) 04/24/2022 Product Containing 7-ybkrlry-1-methylgl utaryl-coenzyme A Reductase Inhibitor (product) Simvastatin 03/04/2018 myalgia documented as of this encounter (statuses as of 07/14/2023) Medications Medication Sig Dispensed Refills Start Date [...] MG Sublingual Tablet Sublingual (Nitrostat)Indicati ons:Atherosclerosis of ute coronary artery of ute heart with other form of angina pectoris (HCC),Exertional angina,Coronary artery disease involving coronary bypass graft of ute heart with angina pectoris (HCC) PLACE 1 [...] 50 MCG/ACT Nasal Suspension (Flonase) Administer 1 [place] into nostril daily as needed. 0 Active [...] Tablet (pLAVix)Indications :Atherosclerosis of coronary artery of ute heart with stable angina pectoris, unspecified vessel or lesion type (HCC),Cerebrovascul ar disease, arteriosclerotic, post-stroke TAKE 1 TABLET BY MOUTH EVERY DAY 90 Tablet 3 06/22/2023 Active documented as of this encounter (statuses as of 07/14/2023) Active Problems Problem Noted Date Diagnosed Date [...] hand 12/27/2020 Well adult exam 04/12/2019 Overview: Jad. 03/31 inferior [place]? Cath- no new lesions of CABG. 12/29 TTE [place] similar. 11/28 new stent. TTE 45-49%. Mod wall motion abn. Mild AR. Mild dilated A root/ascend 10/28 6MWT ok. 10/27 UE EMG ok. 2017 colon 2mm polyp. Mak 5y 2013 colon CA Chronic major depressive disorder, recurrent epi sode 04/12/2019 Atherosclerosis of ute co ronary artery of ute heart with stable angina pectoris 07/06/2018 Lung nodules 05/28/2018 Splenomegaly 04/09/2018 History of colon cancer 04/08/2018 Statin intolerance 01/29/2018 Stable angina 02/01/2017 Coronary artery disease invo lving coronary bypass graft of ute heart with angina pectoris 09/14/2016 S/P angioplasty [...] (small bowel obstruction) Overview: 04/23 admit. 11/21 [facility] improved w/NPO. Cont ETOH abuse documented as of this encounter (statuses as of 07/14/2023) Resolved Problems Problem Noted Date Diagnosed Date Resolved Date Acute ST elevation myocardia l infarction (STEMI) 11/21/2022 11/26/2022 COPD, group A, by GOLD 2017 classification 11/20/2019 11/14/2021 Overview: Per COPD GOLD Classification COPD, mild 07/09/2018 11/23/2019 Overview: 2018 PFTs mild obstruction. Breo started--feels breathing is better. Thrombocytopenia 07/06/2018 10/25/2019 Exertional angina 10/22/2016 01/01/2017 Coronary atherosclerosis of ute coronary artery 12/26/2013 03/22/2019 Colon cancer 10/06/2013 08/18/2017 Cancer Staging:Clinical:Stage IIIA(T1, N1, M0) - Signed by Aiden Beauchamp MD on 11/24/2013 Pathologic: Unsigned Overview: 09/29/13 S/p partial sigmoid colectomy-Dr Steiner. Pathologic stage pT1N1a. (metastatic adenocarcinoma 08/25 nodes, invading submucosa) Pre-op testing 09/13/2013 02/25/2017 Routine general medical exam ination at a health care facility 01/25/2013 05/30/2018 Overview: 03/[address] [facility] 6mm nodule. Mak 6mo ordered. 11/24 stopped crestor-myalgias. 08/25 CONSIDER EGD? 10/24 colon-2mm polyp PATH tubular adenoma. Mka 5y Preconetmplative to cut back ETOH. Stable low plat/wbc. 05/24 periph smear done ok. Colonoscopy 09/[address]NL[address] Mak [address]. Dr Sebastian-for Synvisc Needs HARRIET fall 08/22 25mm colon polyp--Path---cancer--resected. 01/19 prostate discussed-declined 11/29/12 RUQ US @ [facility]--possible fatty infiltrate 11/11/12 DEXA @[facility]-- T -1.0 hip 07/20 Rib Xray-Right 7-9th rib frx 04/01/10CT [facility]-mild osteophytes 2007 colonoscopy-WNL. 08/14/03. Colonoscopy-The polyp at 45 cm showed moderate atypia. prison current use of ant icoagulant therapy 12/24/2003 11/21/2012 Overview: ICD-10 update of inactive term BENIGN NEOPLASM LG BOWEL 08/31/2003 Calculus of kidney 08/18/2001 8 Coronary atherosclerosis Overview: S/p CABG x5 06/24/1993 VICTORIA-D1-LAD TERRY-RCA SVG-OM1 SVG-OM2 PURE HYPERCHOLESTEROLEM 07/09 Overview: Per Lipid Taxonomy. TIA (transient ischemic attack) 02/25/2017 documented as of this encounter (statuses as of 07/14/2023) Immunizations Name Administration Dates Next Due COVID-19 mRNA, LNP-s, No Pre serve, 2-Dose Series (Moderna) 10/16/2020,09/18/2020 COVID-19 mRNA, LNP-s, No Pre serve, 2-Dose Series (Pfizer) 07/21/2021,10/16/2020,09/18/2020 COVID-19, mRNA, LNP-s, PF, B ooster, 100mcg/0.5mg (Moderna) 07/21/2021 Pneumococcal Conjugate Vacc, 13 Valent (Prevnar) 10/29/2015 Pneumococcal Polysaccharide PPV23 (Pneumovax) 02/25/2017,08/07/2014 Pneumococcal Vaccine, Unspec ified Formulation 08/07/2014 SEASONAL INFLUENZA, PF, 6 M & Above, IM , (FLULAVAL or FLUZONE) 05/11/2020,07/07/2017,06/22/2014,04/19,04/20/2012,04/20/2011 Seasonal Influenza Virus Vac cine, Unspecified Formulation 06/09/2021,05/11/2020,06/15/2019,04/09,04/09/2018,05/09/2015,05/16/2009 Seasonal Influenza, Quadriva lent Hd (Fluzone Hd) [...] (15 years old or older) No 11/21/19 23 Cognitive Status Response Date of Assessm ent Because of a physical, menta l, or emotional condition, do you have serious difficulty concentrating, remembering, or making decisions? (5 years old or older) Yes-"short term memory is bad" 11/20/2022 documented as of this encounter Miscellaneous Notes * Telephone Encounter - Shaun Emmanuel RN - 07/14/2023 11:52 AM ESTRefused Prescriptions: Disp Refills Praluent 150 MG/ML Subcutaneous Solution A*6 mL 3 Sig: INJECT 150 MG (1 PEN) UNDER THE SKIN EVERY 14 DAYSRefused By: SHAUN EMMANUEL for Refusal: Duplicate Request documented in this encounter Plan of Treatment Upcoming Encounters Date Type Department Care Team (Latest Contact Info) Description 07/27/2023 10:30 AM EST Office Visit Sleep Disorders Ctr [facility] [address] [phone] Mica Hernandez CRNP [address] [address] 09/13/2023 9:00 AM EST Hospital Encounter [facility], Endoscopy Room [facility] [address] [phone] Milvia Arnold MD [address] [address] 09/13/2023 9:00 AM EST - 09/13/2023 9:30 AM EST Surgery [facility], Endoscopy Room [facility] [address] [place] [phone] Milvia Arnold MD [address] [place] [address] COLONOSCOPY FLEXIBLE PROXIMAL DIAGNOSTIC 11/10/2023 11:00 AM EDT Office Visit Cardiology, [facility] [address] [place] [address] Vivienne Sunshine CRNP [address] [place] [address] 01/12/2024 12:00 PM EDT Office Visit Family Practice [facility] [address] [place] [address] Miguel Suarez MD [address] [place] [place] [address] Scheduled Procedures Name Priority Associated Diagnoses Date/Ti me COLONOSCOPY FLEXIBLE PROXIMAL DIAGNOSTIC Recall History of colon polyps History of colon cancer 09/13/2023 9:00 AM EST Health Maintenance Due Date Last Done Comments COLONOSCOPY-EVERY 5 YRS AGES 18-100 10/20/2022 10/20/2017, 10/20/2017, 10/01/2014, Additional history exists COVID-19 Vaccine ( season) 2023 07/21/2021, 07/21/2021, 10/16/2020, Additional history exists HbA1c 11/22/2023 11/21/2022, 10/07, 05/20/2021, Additional history exists Depression Screening 04/08/2024 04/08/2023, 03/23/2018 (Declined) GFR 05/28/2024 05/28/2023, 0808/2022, 12/28/2022, Additional history exists Albumin/Creatinine Ratio 01/21/2026 023, 10/20/2013, 04/13/2012, Additional [...] this encounter Medical Devices Implanted Type Area Tube Balancer Device Identifier Shelf Expiration Date Model / Serial / Lot Stent Synergy Xd Mr [id number] - [id number] Implanted:Qty: 1 on 11/24/2022 by Johnny Schofield MD at [facility] [employer] [id number] 07/24/2023 [id number] / / [id number] documented as of this encounter Advance Directives [...] the patient have Health Care Power of Executive Assistant To General Counsel? No Care Teams Brush Filler Hand Relationship Specialty Start Date End Date Miguel Suarez MD [address] [facility] [place] [address] PCP - General Family Medicine 07/25/14 documented as of this encounter
--- OUTSIDE RECORDS SUMMARY | 2023-08-09 07:49 | External Medical Summary ---
Author Name Unknown Address Unknown Organization [id number] [address] [place] [address] Laboratory Report Ordering Provider Test Date Status CEFERINO QUINTANA 05/28/2023 11:48:25 Final Observation Date Value Abnormality Reference (Units ) Status BUN 05/28/2023 11:48:25 29 Above high normal 6-20 (mg/dL) Final Creatinine 05/28/2023 11:48:25 1.4 Above high normal 0.6-1.2 (mg/dL) Final Glomerular filtration rate/1.73 sq M.predicted [Volume Rate/Area] in Serum, Plasma or Blood by Creatinine-based formula (CKD-EPI) 05/28/2023 11:48:25 55 Below low normal >=60 (mL/min) Final eGFR is calculated based on the CKD-EPI 2020 equation SODIUM 05/28/2023 11:48:25 143 135-146 (m mol/L) Final Potassium 05/28/2023 11:48:25 4.7 3.5-5.1 (m mol/L) Final Cl 05/28/2023 11:48:25 104 98-107 (mm ol/L) Final CO2 05/28/2023 11:48:25 28 22-32 (mmo l/L) Final Anion gap 05/28/2023 11:48:25 11 7-15 (mmol /L) Final Glucose 05/28/2023 11:48:25 101 70-120 (mg /dL) Final Calcium 05/28/2023 11:48:25 9.4 8.4-10.2 ( mg/dL) Final Performing Location [facility] [place] [address]
--- OUTSIDE RECORDS SUMMARY | 2023-08-09 07:49 | External Medical Summary ---
Author Name Unknown Address Unknown Organization [id number] [place] [address] Laboratory Report Ordering Provider Test Date Status GLYNN KINNEY 05/28/2023 11:48:25 Final Observation Date Value Abnormality Reference (Units ) Status WBC, Total 05/28/2023 11:48:25 3.80 Below low normal 4. 00-10.80 (K/uL) Final RBC 05/28/2023 11:48:25 4.11 4.50-5.25 (M/uL) Final Hemoglobin 05/28/2023 11:48:25 13.6 Below low normal 14 .0-16.8 (g/dL) Final HCT 05/28/2023 11:48:25 40.3 40.0-48.4 (%) Final MCV 05/28/2023 11:48:25 98.1 82.0-99.5 (fL) Final MCH 05/28/2023 11:48:25 33.1 27.0-34.0 (pg) Final MCHC 05/28/2023 11:48:25 33.7 32.0-36.0 (g/dL) Final RDW 05/28/2023 11:48:25 13.6 11.5-15.5 (%) Final Platelets 05/28/2023 11:48:25 113 Below low normal 140 -400 (K/uL) Final MPV 05/28/2023 11:48:25 9.8 6.6-11.1 ( fL) Final Performing Location [facility] [address] [place] [address]
--- OUTSIDE RECORDS SUMMARY | 2023-08-09 07:49 | External Medical Summary | Summary of Care ---
Author Name Unknown Organization [facility] Address [address] [address] Phone [phone] Care Team Providers Care Butcher Head Name Role Phone Miguel Suarez MD Primary Care Provider + Reason for Referral * Evaluate & Treat - Unlimited Visits (Within 30 days (routine)) - Pending Review Specialty Diagnoses / Procedures Referred By Contsofía t Referred To Contact CARDIAC REHAB / Cardiology Diagnoses HFrEF (heart failure with reduced ejection fraction) ([facility]) History of ST elevation myocardial infarction (STEMI) Genaro Kaiser DO [address] [place] [address] Referral ID Status Reason Start Date Expiration Date Visits Requested Visits Authorized [id number] Pending Review Specialty Services Required 04/14/[phone] Question Answer Referral Priority Within 30 days (routine) Cardiac Rehabilitation Modality Center Based Cardiac Rehab Only Cardiac Rehab Location: Identify Cardiac Risk High Risk High Risk Other - complex CAD Reason for Visit * Reason Onset Date Comments Cardiac Rehab 04/09/2023 Encounter Details Date Type Department Care Team (Late st Contact Info) Description 04/09/2023 Telephone Cardiology, [facility] [address] [address] Genaro Kaiser DO [address] [id number] Cardiac Rehab Allergies Active Allergy Reactions Criticality Noted Date Comments Atorvastatin 03/04/2018 Myalgia Fluticasone Furoate-Vilanterol 12/24/2021 Tightness in chest Rosuvastatin Calcium 03/04/2018 myalgia Iodinated Contrast Media Anaphylaxis,Itching High 04/26/2008 Contrast dye Other Allergy (See Comments) 04/24/2022 Product Containing 0-mpoinfq-8-methylgl utaryl-coenzyme A Reductase Inhibitor (product) Simvastatin 03/04/2018 myalgia documented as of this encounter (statuses as of 07/05/2023) Medications Medication Sig Dispensed Refills Start Date End Date Status Cholecalciferol 5000 UNITS TABS Take 5,000 Units by mouth in the morning. 0 Active pyridOXINE (VITAMIN B-6) 100 MG Tablet Take 1 Tablet by mouth in the morning. 0 Active oxygen GAS 2 LPM bled through NC during hours of sleep 1 Each 0 0 Active NF Formulas Testosterone Oral Capsule Take 1 Capsule by mouth every morning. 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 0 Active Famotidine 20 MG Oral Tablet (Pepcid)Indicati ons:Chronic nausea Take by mouth 1 Tablet in the morning AND 1 Tablet before bedtime. 180 Tablet 3 2 06/01/20 23 Discontinued Pantoprazole Sodium 40 MG Oral Tablet Delayed Release (Protonix) Take by mouth 1 Tablet in the morning AND 1 Tablet before bedtime. 180 Tablet 3 2 06/04/20 23 Discontinued Clopidogrel Bisulfate 75 MG Oral Tablet (pLAVix)Indicati ons:Atherosclero sis of coronary artery of [place] heart with stable angina pectoris, unspecified vessel or lesion type (HCC),Cerebrovas cular disease, arteriosclerotic , post-stroke TAKE 1 TABLET BY MOUTH EVERY DAY 90 Tablet 3 2 06/22/20 23 Discontinued Alirocumab 150 MG/ML Subcutaneous Solution Auto-injector INJECT 150 MG (1 PEN) UNDER THE SKIN EVERY 14 DAYS 6 mL 3 2 06/18/20 23 Discontinued(Re fill) documented as of this encounter (statuses as of 07/05/2023) Active Problems Problem Noted Date Diagnosed Date [...] adult exam 04/12/2019 Overview: Daughter-Sherly. 03/31 inferior CA? Cath- no new lesions of CABG. 12/29 TTE [facility] similar. 11/28 new stent. TTE 45-49%. Mod wall motion abn. Mild AR. Mild dilated A root/ascend 10/28 6MWT ok. 10/27 UE EMG ok. 2017 colon 2mm polyp. Mak 5y 2013 colon CA Chronic major depressive disorder, recurrent epi sode 04/12/2019 Atherosclerosis of [place] co ronary artery of [place] heart with stable angina pectoris 07/06/2018 Lung nodules 05/28/2018 Splenomegaly 04/09/2018 History of colon cancer 04/08/2018 Statin intolerance 01/29/2018 Stable angina 02/01/2017 Coronary artery disease invo lving coronary bypass graft of [place] heart with angina pectoris 09/14/2016 S/P angioplasty [...] (small bowel obstruction) Overview: 04/23 admit. 11/21 [facility] improved w/NPO. Cont ETOH abuse documented as of this encounter (statuses as of 07/05/2023) Resolved Problems Problem Noted Date Diagnosed Date Resolved Date Acute ST elevation myocardia l infarction (STEMI) 11/21/2022 11/26/2022 COPD, group A, by GOLD 2017 classification 11/20/2019 11/14/2021 Overview: Per COPD GOLD Classification COPD, mild 07/09/2018 11/23/2019 Overview: 2018 PFTs mild obstruction. Breo started--feels breathing is better. Thrombocytopenia 07/06/2018 10/25/2019 Exertional angina 10/22/2016 01/01/2017 Coronary atherosclerosis of [place] coronary artery 12/26/2013 03/22/2019 Colon cancer 10/06/2013 08/18/2017 Cancer Staging:Clinical:Stage IIIA(T1, N1, M0) - Signed by Aiden Beauchamp MD on 11/24/2013 Pathologic: Unsigned Overview: 09/29/13 S/p partial sigmoid colectomy-Dr Steiner. Pathologic stage pT1N1a. (metastatic adenocarcinoma 1/17 nodes, invading submucosa) Pre-op testing 09/13/2013 02/25/2017 Routine general medical exam ination at a health care facility 01/25/2013 05/30/2018 Overview: 03/26 CT chest [facility] 6mm nodule. Mak 6mo ordered. 11/24 stopped crestor-myalgias. 08/25 CONSIDER EGD? 10/24 colon-2mm polyp PATH tubular adenoma. Mak 5y Preconetmplative to cut back ETOH. Stable low plat/wbc. 05/24 periph smear done ok. Colonoscopy 09/[address] Sebastian-for Synvisc Needs [facility] fall 08/22 25mm colon polyp--Path---cancer--resected. 01/19 prostate discussed-declined 11/29/12 RUQ US @ [facility]--possible fatty infiltrate 11/11/12 DEXA @[facility]-- T -1.0 hip 07/20 Rib Xray-Right 7-9th rib frx 04/01/10CT neck @[facility]-mild osteophytes 2007 colonoscopy-WNL. 08/14/03. Colonoscopy-The polyp at 45 cm showed moderate atypia. 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 TIA (transient ischemic attack) 02/25/2017 documented as of this encounter (statuses as of 07/05/2023) Immunizations Name Administration Dates Next Due COVID-19 [...] Seasonal Influenza, Quadriva lent Hd (Fluzone Hd) 06/29/2022,05/16/2021 Seasonal Influenza, Quadriva lent, No Preserve, IM [...] money to buy more. Never true 04/08/20 Within the past 12 months, t he [...] encounter Miscellaneous Notes * Telephone Encounter - Clari Isaacs CMA - 04/19/2023 11:15 AM EDT LOMN and records faxed to [facility] Cardiac Rehab. * Telephone Encounter - Genaro Kaiser DO - 04/14/2023 8:00 PM EDT OK to return to rehab. Activity should be limited by symptoms and common sense, to make sure pt does not over exert himself at rehab or otherwise. New referral placed. Genaro Kaiser DO * Telephone Encounter - Shaun Meredith RN - 04/09/2023 12:45 PM EDT Received a call from [facility] cardiac rehab requesting an order for the patient to return to rehab at the patient's request. Please see OV notes visit with the patient PCP yesterday with Dr. Suarez for recent events with the patient. documented in this encounter Plan of Treatment Upcoming Encounters Date Type Department Care Team (Latest Contact Info) Description 07/27/2023 10:30 AM EST Office Visit Sleep Disorders Ctr [facility] [address] [place] [phone] Mica Hernandez CRNP [address] [place] [address] 09/13/2023 9:00 AM EST Hospital Encounter ENDO [facility], Endoscopy Room [facility] [address] [place] [phone] Milvia Arnold MD [address] [place] [address] 09/13/2023 9:00 AM EST - 09/13/2023 9:30 AM EST Surgery ENDO [facility], Endoscopy Room [facility] [address] [place] [phone] Milvia Arnold MD [address] [address] COLONOSCOPY FLEXIBLE PROXIMAL DIAGNOSTIC 11/10/2023 11:00 AM EDT Office Visit Cardiology, [facility] [address] [place] [address] Vivienne Sunshine CRNP [address] [place] [address] 01/12/2024 12:00 PM EDT Office Visit Family Practice [facility] [address] [place] [address] Miguel Suarez MD [address] [place] [address] Scheduled Procedures Name Priority Associated Diagnoses Date/Ti me COLONOSCOPY FLEXIBLE PROXIMAL DIAGNOSTIC Recall History of colon polyps History of colon cancer 09/13/2023 9:00 AM EST Scheduled Referrals Name Type Priority Associated Diagnoses Orde r Schedule CARDIAC REHAB REFERRAL OP Referral Within 30 days (routine) HFrEF (heart failure with reduced ejection fraction) (HCC) History of ST elevation myocardial infarction (STEMI) Ordered: 04/14/2023 Health Maintenance Due Date Last Done Comments COLONOSCOPY-EVERY 5 YRS AGES 18-100 10/20/2022 10/20/2017, 10/20/2017, 10/01/2014, Additional history exists COVID-19 Vaccine (2022- season) 2023 07/21/2021, 07/21/2021, 10/16/2020, Additional history exists HbA1c 11/22/2023 11/21/2022, 10/07, 05/20/2021, Additional history exists Depression Screening 04/08/2024 04/08/2023, 03/23/2018 (Declined) GFR 05/28/2024 05/28/2023, 03/11, 12/28/2022, Additional history exists Albumin/Creatinine Ratio 01/21/2026 [...] this encounter Medical Devices Implanted Type Area Wellness Instructor Device Identifier Shelf Expiration Date Model / Serial / Lot Stent Synergy Xd Mr [id number] - [id number] Implanted:Qty: 1 on 11/24/2022 by Johnny Schofield MD at [facility] [employer] [id number] 07/24/2023 [id number] / / [id number] documented as of this encounter Visit Diagnoses Diagnosis History of ST elevation myocardial infarction (STEMI)- Primary Old myocardial infarction HFrEF (heart failure with reduced ejection fraction) [...] the patient have Health Care Power of Sales Trader? No Care Teams Butcher Head Relationship Specialty Start Date End Date Miguel Suarez MD [address] [phone] PCP - General Family Medicine 07/25/14 documented as of this encounter
--- OUTSIDE RECORDS SUMMARY | 2023-08-09 07:49 | External Medical Summary | Summary of Care ---
Author Name Unknown Organization [facility] Address [address] [place] [address] Phone [phone] Care Team Providers Care Education Research Analyst Name Role Phone Miguel Suarez MD Primary Care Provider + Reason for Visit * Reason Comments Dosage Adjustment Via Phone (anticoag Cl inic) Hyperlipidemia Encounter Details Date Type Department Care Team (Late st Contact Info) Description 06/18/2023 11:50 AM EST Telemedicine Cardiology [facility] [place] [address] [place] [address] [place] [address], Pharmacist Cardiology [facility] [address] [place] [address] Dyslipidemia, goal LDL below 70* Allergies Active Allergy Reactions Criticality Noted Date Comments Atorvastatin 03/04/2018 Myalgia Fluticasone Furoate-Vilanterol 12/24/2021 Tightness in chest Rosuvastatin Calcium 03/04/2018 myalgia Iodinated Contrast Media Anaphylaxis,Itching High 04/26/2008 Contrast dye Other Allergy (See Comments) 04/24/2022 Product Containing 6-rbnjqyb-5-methylgl utaryl-coenzyme A Reductase Inhibitor (product) Simvastatin 03/04/2018 myalgia documented as of this encounter (statuses as of 06/18/2023) Medications Medication Sig Dispensed Refills Start Date End Date Status Cholecalciferol 5000 UNITS TABS Take 5,000 Units by mouth in the morning. 0 Active pyridOXINE (VITAMIN B-6) 100 MG Tablet Take 1 Tablet by mouth in the morning. 0 Active oxygen GAS 2 LPM bled through NC during hours of sleep 1 Each 0 08/30/2019 Active Clopidogrel Bisulfate 75 MG Oral Tablet (pLAVix)Indicatio ns:Atherosclerosi s of coronary artery of [place] heart with stable angina pectoris, unspecified vessel or lesion type (HCC),Cerebrovasc ular disease, arteriosclerotic, post-stroke TAKE 1 TABLET BY MOUTH EVERY DAY 90 Tablet 3 06/26/2022 Active NF Formulas Testosterone Oral Capsule Take 1 Capsule by mouth every morning. 0 Active Allopurinol 300 MG Oral Tablet (Zyloprim)Indicat ions:Chronic gout without tophus, unspecified cause, unspecified site TAKE ONE-HALF TABLET BY MOUTH EVERY MORNING AND 1 TABLET IN THE EVENING 135 Tablet 3 09/15/2022 Active Nitroglycerin 0.4 MG Sublingual Tablet Sublingual (Nitrostat)Indica tions:Atheroscler osis of [place] coronary artery of [place] heart with other form of angina pectoris (HCC),Exertional angina,Coronary artery disease involving coronary bypass graft of [place] heart with angina pectoris (HCC) PLACE 1 [...] before bedtime. 180 Tablet 3 12/22/2022 Active Sacubitril-Valsar loera 24-26 MG Oral Tablet (Entresto) Take 1 [...] 50 MCG/ACT Nasal Suspension (Flonase) Administer 1 [place] into nostril daily as needed. 0 Active Famotidine 20 MG Oral Tablet (Pepcid)Indicatio ns:Chronic nausea TAKE 1 TABLET BY MOUTH EVERY [...] 14 days. 6 mL 3 06/18/2023 Active Alirocumab 150 MG/ML Subcutaneous Solution Auto-injector INJECT 150 MG (1 PEN) UNDER THE SKIN EVERY 14 DAYS 6 mL 3 06/16/2022 Discontinue d(Refill) documented as of this encounter (statuses as of 06/18/2023) Active Problems Problem Noted Date Diagnosed Date [...] disorder, recurrent epi sode 04/12/2019 Atherosclerosis of [place] co ronary artery of [place] heart with stable angina pectoris 07/06/2018 Lung nodules 05/28/2018 Splenomegaly 04/09/2018 History of colon cancer 04/08/2018 Statin intolerance 01/29/2018 Stable angina 02/01/2017 Coronary artery disease invo lving coronary bypass graft of [place] heart with angina pectoris 09/14/2016 S/P angioplasty [...] (small bowel obstruction) Overview: 04/23 admit. 11/21 [facility] improved w/NPO. Cont ETOH abuse documented as of this encounter (statuses as of 06/18/2023) Resolved Problems Problem Noted Date Diagnosed Date Resolved Date Acute ST elevation myocardia l infarction (STEMI) 11/21/2022 11/26/2022 COPD, group A, by GOLD 2017 classification 11/20/2019 11/14/2021 Overview: Per COPD GOLD Classification COPD, mild 07/09/2018 11/23/2019 Overview: 2018 PFTs mild obstruction. Breo started--feels breathing is better. Thrombocytopenia 07/06/2018 10/25/2019 Exertional angina 10/22/2016 01/01/2017 Coronary atherosclerosis of [place] coronary artery 12/26/2013 03/22/2019 Colon cancer 10/06/2013 08/18/2017 Cancer Staging:Clinical:Stage IIIA(T1, N1, M0) - Signed by Aiden Beauchamp MD on 11/24/2013 Pathologic: Unsigned Overview: 09/29/13 S/p partial sigmoid colectomy-Dr Steiner. Pathologic stage pT1N1a. (metastatic adenocarcinoma 08/25 nodes, invading submucosa) Pre-op testing 09/13/2013 02/25/2017 Routine general medical exam ination at a health care facility 01/25/2013 05/30/2018 Overview: 03/26 CT chest [facility] 6mm nodule. Mak 6mo ordered. 11/24 stopped crestor-myalgias. 08/25 CONSIDER EGD? 10/24 colon-2mm polyp PATH tubular adenoma. Mak 5y Preconetmplative to cut back ETOH. Stable low plat/wbc. 05/24 periph smear done ok. Colonoscopy 09/[address] WNL[address] Mak [address]. Dr Sebastian-for Synvisc Needs HARRI[facility] fall 08/22 25mm colon polyp--Path---cancer--resected. 01/19 prostate discussed-declined 11/29/12 RUQ US @ [facility]--possible fatty infiltrate 11/11/12 DEXA @[facility]-- T -1.0 hip 07/20 Rib Xray-Right 7-9th rib frx 04/01/10CT neck @[facility]-mild osteophytes 2008 colonoscopy-WNL. 08/14/03. Colonoscopy-The polyp at 45 cm showed moderate atypia. intermediate frame tender current use of ant icoagulant therapy 12/24/2003 11/21/2012 Overview: ICD-10 update of inactive term BENIGN NEOPLASM LG BOWEL 08/31/2003 Calculus of kidney 08/18/2001 8 Coronary atherosclerosis Overview: S/p CABG x5 06/24/1993 VICTORIA-D1-LAD TERRY-RCA SVG-OM1 SVG-OM2 PURE HYPERCHOLESTEROLEM 07/09 Overview: Per Lipid Taxonomy. TIA (transient ischemic attack) 02/25/2017 documented as of this encounter (statuses as of 06/18/2023) Immunizations Name Administration Dates Next Due COVID-19 [...] or making decisions? (5 years old or older Yes-"short term memory is bad" 11/20/2022 documented as of this encounter Progress Notes * Alka Avilez, [facility] - 06/18/2023 4:02 PM EST PCSK-9 Inhibitor Follow Up After connecting to the patient via telephone, the patient was identified by name and date of . Patient was then informed that this was a telephone call only visit. The patient agreed to participate Visit Disposition: Status check/routine follow up Duration: 5 minutes Primary Sack Cleaner/Ordering Provider: Dr. Kaiser HPI: Curtis Jamil is a 72 year old year old male. History: Patient reports tolerating Praluent at current dose with no noted side effects. Reports heoccasionally misses a dose and is unsure of how to adjust his dosing schedule. Discussed proper missed dose management and reminder tools with the patient. Target LDL: < 70 mg/dL Clinical ASCVD/Risk Score: The ASCVD Risk score (Mary Carmen DK, et al., 2019) failed to calculate for the following reasons: The patient has a prior [place] or stroke diagnosis Patient Active Problem List Diagnosis Code Major [...] bowel obstruction) ([facility]) K56.609 Hx of CABG Z95.1 Allergy to radiographic contrast media Z91.041 Coronary artery disease involving coronary bypass graft of [place] heart with angina pectoris ([facility]) I25.709 S/P angioplasty with stent Z95.820 Stable angina I20.89 Statin intolerance Z78.9 History of colon cancer Z85.038 Splenomegaly R16.1 Lung nodules R91.8 Atherosclerosis of [place] coronary artery of [place] heart with stable angina pectoris ([facility]) I25.118 Well adult exam Z00.00 Chronic major depressive disorder, recurrent episode ([facility]) F33.9 Primary osteoarthritis of first carpometacarpal joint of right hand M18.11 Dysphagia R13.10 Chronic nausea R11.0 Swelling of right hand M79.89 Puncture wound T14.8XXA Primary osteoarthritis of both first carpometacarpal joints M18.0 ROD (acute kidney injury) ([facility]) N17.9 Systolic congestive heart failure ([facility]) I50.20 HFrEF (heart failure with reduced ejection fraction) ([facility]) I50.[address] elevation myocardial infarction (STEMI) I25.2 Chronic combined systolic and diastolic congestive heart failure ([facility]) I50.42 Alcohol use Z78.9 Review of patient's allergies indicates: Allergen Reactions Iodinated Contrast Media Anaphylaxis and Itching Contrast dye Atorvastatin Myalgia Breo Ellipta [Fluticasone Furoate-Vilanterol] Tightness in chest Crestor [Rosuvastatin Calcium] myalgia Other Allergy (See Comments) Product Containing 7-cpiydsw-6-methylglutaryl-coenzyme A Reductase Inhibitor (product) Simvastatin myalgia LABS: Lab Results Component Value Date/Time LDL (CALCULATED) 152. (H) 11/24/1996 08:00 AM LDL (CALCULATED) 179. (HH) 10/17/1996 08:00 AM LDL (CALCULATED) 185. (HH) 05/25/1996 08:45 AM LDL (CALCULATED)-OUTSIDE LAB 93 10/24/2021 12:00 AM LDL (CALCULATED)-OUTSIDE LAB 201 (A) 11/25/2017 12:00 AM LDL CHOLESTEROL (CALCULATED) - [facility] 47 11/21/2022 04:37 AM LDL CHOLESTEROL (CALCULATED) - [facility] 80 08/31/2022 08:53 AM LDL CHOLESTEROL (CALCULATED) - [facility] 88 05/20/2021 09:45 AM LDL CHOLESTEROL (CALCULATED) - [facility] 98 12/29/2019 10:07 AM LDL CHOLESTEROL (CALCULATED) - [facility] 119 09/11/2019 08:50 AM LDL CHOLESTEROL (CALCULATED) - [facility] 92 09/02/2018 11:05 AM LDL CHOLESTEROL (DIRECT MEASURE) - [facility] NOT APPLICABLE 12/29/2019 10:07 AM LDL CHOLESTEROL (DIRECT MEASURE) - [facility] NOT APPLICABLE 09/11/2019 08:50 AM LDL CHOLESTEROL (DIRECT MEASURE) - [facility] NOT APPLICABLE 09/02/2018 11:05 AM LDL CHOLESTEROL-OUTSIDE LAB 125 (A) 04/13/2012 12:00 AM LDL CHOLESTEROL-OUTSIDE LAB 105 (A) 04/14/2011 12:00 AM ASSESSMENT There are no diagnoses linked to this encounter. Patient is on the following medication(s): Praluent 150 mg every 14 days PLAN OF ACTION Medication Regimen: CONTINUE Labs Needed: no Follow-Up Appointment(s): Pharmacist: Alka Avilez Physician: Dr. Job Avliez, [facility] Clinical Pharmacist Cardiology Department 06/18/2023,4:03 PM documented in this encounter Plan of Treatment Upcoming Encounters Date Type Department Care Team (Latest Contact Info) Description 07/27/2023 10:30 AM EST Office Visit Sleep Disorders Ctr [facility] [address] [phone] Mica Hernandez CRNP [address] [address] 09/13/2023 9:00 AM EST Hospital Encounter ENDO [facility], Endoscopy Room [facility] [address] [phone] Milvia Arnold MD [address] [place] [address] 09/13/2023 9:00 AM EST - 09/13/2023 9:30 AM EST Surgery ENDO [facility], Endoscopy Room [facility] [address] [place] [phone] Milvia Arnold MD [address] [place] [address] COLONOSCOPY FLEXIBLE PROXIMAL DIAGNOSTIC 11/10/2023 11:00 AM EDT Office Visit Cardiology, [facility] [address] [address] Vivienne Sunshine CRNP [address] [place] [address] 01/12/2024 12:00 PM EDT Office Visit Family Practice [facility] [address] [place] [address] Miguel Suarez MD [address] [place] [address] Scheduled Procedures Name Priority Associated Diagnoses Date/Ti [...] this encounter Medical Devices Implanted Type Area Manager Of Learning Device Identifier Shelf Expiration Date Model / Serial / Lot Stent Synergy Xd Mr [id number] - [id number] Implanted:Qty: 1 on 11/24/2022 by Johnny Schofield MD at [facility] [id number] 07/24/2023 [id number] / / [id number] documented as of this encounter Visit Diagnoses Diagnosis Dyslipidemia, goal LDL below 70- Primary Other and unspecified hyperlipidemia History of colon polyps Personal history of [...] the patient have Health Care Power of Tankerman? No Care Teams Education Research Analyst Relationship Specialty Start Date End Date Miguel Suarez MD [address] [place] [address] PCP - General Family Medicine 07/25/14 documented as of this encounter
--- OUTSIDE RECORDS SUMMARY | 2023-08-09 07:49 | External Medical Summary ---
Author Name Unknown Address Unknown Organization [id number]:[facility] [address] [place] [address] Laboratory Report Ordering Provider Test Date Status GLYNN KINNEY 05/28/2023 11:48:25 Final Observation Date Value Abnormality Reference (Units ) Status SYNC LEUKOCYTES IN BLOOD BY AUTOMATED COUNT 05/28/2023 11:48:25 3.80 Below low normal 4.00-10.80 (K/uL) Final Segs 05/28/2023 11:48:25 69.2 40.0-75.0 (%) Final Lymphs % 05/28/2023 11:48:25 18.7 18.0-42.0 (%) Final Monos 05/28/2023 11:48:25 7.6 1.0-11.0 (%) Final Eosinophils 05/28/2023 11:48:25 3.7 0.0-6.0 (%) Final Basos 05/28/2023 11:48:25 0.8 0.0-2.0 (%) Final Absolute Segs 05/28/2023 11:48:25 2.63 1.80-7.70 (K/uL) Final Lymphs, absolute 05/28/2023 11:48:25 0.71 Below low normal 1.00-4.80 (K/ul) Final Monos, Abs 05/28/2023 11:48:25 0.29 0.00-1.10 (K/uL) Final Eos, Abs 05/28/2023 11:48:25 0.14 0.00-0.70 (K/uL) Final Basos, Abs 05/28/2023 11:48:25 0.03 0.00-0.20 (K/uL) Final Performing Location [facility] [place] [address]
--- OUTSIDE RECORDS SUMMARY | 2023-08-09 07:49 | External Medical Summary | Summary of Care ---
Author Name Unknown Organization [facility] Address [address] [facility] [place] [address] Phone [phone] Care Team Providers Care Life Coach Name Role Phone Miguel Suarez MD Primary Care Provider + Encounter Details Date Type Department Care Team (Late st Contact Info) Description 06/04/2023 Telephone Cardiology, [facility] [address] [place] [address] Maria Del Carmen Sam PA-C [address] [place] [address] Allergies Active Allergy Reactions Criticality Noted Date Comments Atorvastatin 03/04/2018 Myalgia Fluticasone Furoate-Vilanterol 12/24/2021 Tightness in chest Rosuvastatin Calcium 03/04/2018 myalgia Iodinated Contrast Media Anaphylaxis,Itching High 04/26/2008 Contrast dye Other Allergy (See Comments) 04/24/2022 Product Containing 3-tehrmpb-3-methylgl utaryl-coenzyme A Reductase Inhibitor (product) Simvastatin 03/04/2018 myalgia documented as of this encounter (statuses as of 06/04/2023) Medications Medication Sig Dispensed Refills Start Date End Date Status Cholecalciferol 5000 UNITS TABS Take 5,000 Units by mouth in the morning. 0 Active pyridOXINE (VITAMIN B-6) 100 MG Tablet Take 1 Tablet by mouth in the morning. 0 Active oxygen GAS 2 LPM bled through NC during hours of sleep 1 Each 0 08/30/2019 Active Pantoprazole Sodium 40 MG Oral Tablet Delayed Release (Protonix) Take by mouth 1 Tablet in the morning AND 1 Tablet before bedtime. 180 Tablet 3 06/09/2022 Active Clopidogrel Bisulfate 75 MG Oral Tablet (pLAVix)Indication s:Atherosclerosis of coronary artery of [place] heart with stable angina pectoris, unspecified vessel or lesion type (HCC),Cerebrovascu lar disease, arteriosclerotic, post-stroke TAKE 1 TABLET BY MOUTH EVERY DAY 90 Tablet 3 06/26/2022 Active NF Formulas Testosterone Oral Capsule Take 1 Capsule by mouth every morning. 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 UP TO 3 DOSES IN 15 MINUTES 25 Tablet 1 09/30/2022 Active Alirocumab 150 MG/ML Subcutaneous Solution Auto-injector INJECT 150 MG (1 PEN) UNDER THE SKIN EVERY 14 DAYS 6 mL 3 06/16/2022 08/23/2023 Active Sertraline HCl 100 MG Oral Tablet [...] before bedtime. 180 Tablet 3 12/22/2022 Active Sacubitril-Valsart an 24-26 MG Oral Tablet (Entresto) Take 1 [...] 50 MCG/ACT Nasal Suspension (Flonase) Administer 1 [place] into nostril daily as needed. 0 Active Famotidine 20 MG Oral Tablet (Pepcid)Indication s:Chronic nausea TAKE 1 TABLET BY MOUTH EVERY DAY IN THE MORNING AND BEFORE BEDTIME 180 Tablet 3 06/01/2023 Active documented as of this encounter (statuses as of 06/04/2023) Active Problems Problem Noted Date Diagnosed Date [...] adult exam 04/12/2019 Overview: Daughter-Sherly. 03/31 inferior [place]? Cath- no new lesions of CABG. 12/29 TTE [place] similar. 11/28 new stent. TTE 45-49%. Mod wall motion abn. Mild AR. Mild dilated A root/ascend 10/28 6MWT ok. 10/27 UE EMG ok. 2017 colon 2mm polyp. Mak 5y 2013 colon CA Chronic major depressive disorder, recurrent epi sode 04/12/2019 Atherosclerosis of [place] co ronary artery of [place] heart with stable angina pectoris 07/06/2018 Lung nodules 05/28/2018 Splenomegaly 04/09/2018 History of colon cancer 04/08/2018 Statin intolerance 01/29/2018 Stable angina 02/01/2017 Coronary artery disease invo lving coronary bypass graft of [place] heart with angina pectoris 09/14/2016 S/P angioplasty [...] as of this encounter (statuses as of 06/04/2023) Resolved Problems Problem Noted Date Diagnosed Date Resolved Date Acute ST elevation myocardia l infarction (STEMI) 11/21/2022 11/26/2022 COPD, group A, by GOLD 2017 classification 11/20/2019 11/14/2021 Overview: Per COPD GOLD Classification COPD, mild 07/09/2018 11/23/2019 Overview: 2018 PFTs mild obstruction. Breo started--feels breathing is better. Thrombocytopenia 07/06/2018 10/25/2019 Exertional angina 10/22/2016 01/01/2017 Coronary atherosclerosis of [place] coronary artery 12/26/2013 03/22/2019 Colon cancer 10/06/2013 08/18/2017 Cancer Staging:Clinical:Stage IIIA(T1, N1, M0) - Signed by Aiden Beauchamp MD on 11/24/2013 Pathologic: Unsigned Overview: 09/29/13 S/p partial sigmoid colectomy-Dr Steiner. Pathologic stage pT1N1a. (metastatic adenocarcinoma 08/25 nodes, invading submucosa) Pre-op testing 09/13/2013 02/25/2017 Routine general medical exam ination at a health care facility 01/25/2013 05/30/2018 Overview: 03/26 CT chest [facility] 6mm nodule. Mak 6mo ordered. 11/24 stopped crestor-myalgias. 08/25 CONSIDER EGD? 10/24 colon-2mm polyp PATH tubular adenoma. Mak 5y Preconetmplative to cut back ETOH. Stable low plat/wbc. 05/24 periph smear done ok. Colonoscopy 09/[address] Sebastian-for Synvisc Needs HARRIET fall 08/22 25mm colon polyp--Path---cancer--resected. 01/19 prostate discussed-declined 11/29/12 RUQ US @ [place]--possible fatty infiltrate 11/11/12 DEXA @[facility]-- T -1.0 hip 07/20 Rib Xray-Right 7-9th rib frx 04/01/10CT neck @[facility]-mild osteophytes 2007 colonoscopy-WNL. 1/6/04. Colonoscopy-The polyp at 45 cm showed moderate atypia. [facility] current use of ant icoagulant therapy 12/24/2003 11/21/2012 Overview: ICD-10 update of inactive term BENIGN NEOPLASM LG BOWEL 08/31/2003 Calculus of kidney 08/18/2001 8 Coronary atherosclerosis Overview: S/p CABG x5 06/24/1993 VICTORIA-D1-LAD TERRY-RCA SVG-OM1 SVG-OM2 PURE HYPERCHOLESTEROLEM 07/09 Overview: Per Lipid Taxonomy. TIA (transient ischemic attack) 02/25/2017 documented as of this encounter (statuses as of 06/04/2023) Immunizations Name Administration Dates Next Due COVID-19 [...] encounter Miscellaneous Notes * Telephone Encounter - Velvet Roach LPN - 06/04/2023 9:22 AM EDT Mychart sent, orders placed * Telephone Encounter - Velvet Roach LPN - 06/04/2023 9:21 AM EDT ----- Message from Maria Del Carmen Sam PA-C sent at 05/31/2023 4:26 PM EDT ----- Mild renal insufficiency. Would continue current meds for now. Increase water intake. Repeat BMP in 1-2 weeks FYI to PCP documented in this encounter Plan of Treatment Upcoming Encounters Date Type Department Care Team (Latest Contact Info) Description 06/07/2023 9:00 AM EDT Imaging Vascular Lab, [facility] 2nd Floor, [place] [address] [facility] [place] [address] 07/27/2023 10:30 AM EST Office Visit Sleep Disorders Ctr [facility] [address] [place] [phone] Mica Hernandez CRNP [address] [facility] [place] [address] 09/13/2023 9:00 AM EST Hospital Encounter ENDO [facility], Endoscopy Room [facility] [address] [place] [phone] Milvia Arnold MD [address] [place] [address] 09/13/2023 9:00 AM EST - 09/13/2023 9:30 AM EST Surgery ENDO [facility], Endoscopy Room [facility] [address] [place] [phone] Milvia Arnold MD [address] [place] [address] COLONOSCOPY FLEXIBLE PROXIMAL DIAGNOSTIC 11/10/2023 11:00 AM EDT Office Visit Cardiology, [facility] [address] [place] [address] Vivienne Sunshine CRNP [address] [place] [address] 01/12/2024 12:00 PM EDT Office Visit Family Practice [facility] [address] [place] [address] Miguel Suarez MD [address] [place] [address] Scheduled Orders Name Type Priority Associated Diagnoses Orde r Schedule BASIC METABOLIC PANEL Lab Routine ROD (acute kidney injury) (HCC) Expected: 06/11/2023 (Approximate), Expires: 06/04/2024 Scheduled Procedures Name Priority Associated Diagnoses Date/Ti me COLONOSCOPY FLEXIBLE PROXIMAL DIAGNOSTIC Recall History of colon polyps History of colon cancer 09/13/2023 9:00 AM EST Health Maintenance Due Date Last Done Comments AAA Screening 2015 COLONOSCOPY-EVERY 5 YRS AGES 18-100 10/20/2022 10/20/2017, [...] Completed , 06/29/2022, 06/09/2021, Additional history exists GARDASIL-HPV IMMUNIZATION SERIES Aged Out No longer eligible based on patient's age to complete this topic Hepatitis B Aged Out No longer eligi ble based on patient's age to complete this topic MENINGOCOCCAL (MENACTRA/MENVEO) Aged Out No longer eligible based on patient's age to complete this topic documented as of this encounter Medical Devices Implanted Type Area Receiving Specialist Device Identifier Shelf Expiration Date Model / Serial / Lot Stent Synergy Xd Mr [id number] - [id number] Implanted:Qty: 1 on 11/24/2022 by Johnny Schofield MD at [facility] Abloomy [id number] 07/24/2023 [id number] / / [id number] documented as of this encounter Visit Diagnoses Diagnosis ROD (acute kidney injury) (HCC)- Primary Acute kidney failure, unspecified History of colon polyps Personal history of [...] the patient have Health Care Power of Life Cycle Assessment Analyst? No Care Teams Life Coach Relationship Specialty Start Date End Date Miguel Suarez MD [address] [place] [address] PCP - General Family Medicine 07/25/14 documented as of this encounter
--- OUTSIDE RECORDS SUMMARY | 2023-08-09 07:49 | External Medical Summary ---
Author Name Unknown Address Unknown Organization [id number]:[facility] [place] - [address] [place] [address] Laboratory Report Ordering Provider Test Date Status GLYNN KINNEY 05/28/2023 11:48:25 Final Observation Date Value Abnormality Reference (Units ) Status Ferritin 05/28/2023 11:48:25 184 30-400 (ng /mL) Final Performing Location LABORATORY [facility] - [address] [place] [address]
--- OUTSIDE RECORDS SUMMARY | 2023-08-09 07:49 | External Medical Summary | Summary of Care ---
Author Name Unknown Organization [facility] Address [address] [address] Phone [phone] Care Team Providers Care Stabber Name Role Phone Miguel Suarez MD Primary Care Provider + Reason for Visit * Reason Onset Date Comments Return Visit 6 month return Medication Administration 05/28/2023 Flu an d/or Pneumo Inj Encounter Details Date Type Department Care Team Description 05/28/2023 Office Visit Family Practice [facility] [address] [place] [address] Miguel Suarez MD [address] [place] [address] Malaise and fatigue*; History of cigarette smoking; HFrEF (heart failure with reduced ejection fraction) ([facility]); HTN, goal below 140/90; Dyslipidemia, goal LDL below 70; Need for prophylactic vaccination and inoculation against influenza Allergies Active Allergy Reactions Severity Noted Date Comments Atorvastatin 03/04/2018 Myalgia Fluticasone Furoate-Vilanterol 12/24/2021 Tightness in chest Rosuvastatin Calcium 03/04/2018 myalgia Iodinated Contrast Media Anaphylaxis,Itching High Contrast dye Other Allergy (See Comments) 04/24/2022 Product Containing 6-rjtnqqs-8-methylglu taryl-coenzyme A Reductase Inhibitor (product) Simvastatin 03/04/2018 myalgia documented as of this encounter (statuses as of 05/28/2023) Medications Medication Sig Dispensed Refills Start Date End Date Status Cholecalciferol 5000 UNITS TABS Take 5,000 Units by mouth in the morning. 0 Active pyridOXINE (VITAMIN B-6) 100 MG Tablet Take 1 Tablet by mouth in the morning. 0 Active oxygen GAS 2 LPM bled through NC during hours of sleep 1 Each 0 08/30/2019 Active Famotidine 20 MG Oral Tablet (Pepcid)Indication s:Chronic nausea Take by mouth 1 Tablet in the morning AND 1 Tablet before bedtime. 180 Tablet 3 05/10/2022 Active Pantoprazole Sodium 40 MG Oral Tablet Delayed Release (Protonix) Take by mouth 1 Tablet in the morning AND 1 Tablet before bedtime. 180 Tablet 3 06/09/2022 Active Clopidogrel Bisulfate 75 MG Oral Tablet (pLAVix)Indication s:Atherosclerosis of coronary artery of [place] heart with stable angina pectoris, unspecified vessel [...] Sublingual Tablet Sublingual (Nitrostat)Indicat ions:Atheroscleros is of [place] coronary artery of [place] heart with other form of angina pectoris (HCC),Exertional angina,Coronary artery disease involving coronary bypass graft of [place] heart with angina pectoris (HCC) PLACE 1 TAB UNDER THE TONGUE EVERY 5 MINUTES NEEDED FOR PAIN, CHEST. UP TO 3 DOSES IN 15 MINUTES 25 Tablet 1 09/30/2022 Active Alirocumab 150 MG/ML Subcutaneous Solution Auto-injector INJECT 150 MG (1 PEN) UNDER THE SKIN EVERY 14 DAYS 6 mL 3 06/16/2022 08/18/2023 Active Sertraline HCl 100 MG Oral Tablet [...] 50 MCG/ACT Nasal Suspension (Flonase) Administer 1 [place] into nostril daily as needed. 0 Active documented as of this encounter (statuses as of 05/28/2023) Active Problems Problem Noted Date Chronic combined systolic and diastolic congestive heart failure 01/21/2023 Alcohol use 01/21/2023 HFrEF (heart failure with reduced ejecti on fraction) 12/22/[address] elevation myocardial infar ction (STEMI) 12/22/2022 Systolic congestive heart failure 2022 ROD (acute kidney injury) 11/26/2022 Primary osteoarthritis of both first car pometacarpal joints 06/30/2022 Swelling of right hand 04/14/2022 Puncture wound 04/14/2022 Dysphagia 03/03/2022 Chronic nausea 03/03/2022 Primary osteoarthritis of first carpomet acarpal joint of right hand 12/27/2020 Well adult exam 04/12/2019 Overview: Daughter-Sherly. 03/31 inferior MO? Cath- no new lesions of CABG. 12/29 TTE [facility] similar. 11/28 new stent. TTE 45-49%. Mod wall motion abn. Mild AR. Mild dilated A root/ascend 10/28 6MWT ok. 10/27 UE EMG ok. 2017 colon 2mm polyp. Mak 5y 2014 colon CA Chronic major depressive disorder, recur rent episode 04/12/2019 Atherosclerosis of [place] ronary artery of [place] heart with stable angina pectoris 07/06/2018 Lung nodules 05/28/2018 Splenomegaly 04/09/2018 History of colon cancer 04/08/2018 Statin intolerance 01/29/2018 Stable angina 02/01/2017 Coronary artery disease invo lving coronary bypass graft of [place] heart with angina pectoris 09/14/2016 S/P angioplasty with stent 09/11/2016 Allergy to radiographic contrast media 0 09/07/2016 Hx of CABG 09/01/2016 Stasis dermatitis 11/13/2014 Other seborrheic keratosis 11/13/2014 BPH (benign prostatic hyperplasia) 10/20 Osteoarthritis, knee 07/03/2013 Prediabetes 12/22/2012 Alcohol consumption binge drinking 12/22 Gout 11/21/2012 Cerebrovascular disease, arterioscleroti c, post-stroke 01/19/2011 Dyslipidemia, goal LDL below 70 07/24/20 09 Overview: Per Lipid Taxonomy. ADVANCE DIRECTIVE INFORMATION 07/09/2005 Overview: booklet given to pt today. Carpal tunnel syndrome, bilateral 2004 Esophageal reflux 01/30/2005 History of colonic polyps 09/04/2004 Overview: ICD-10 update of inactive term Actinic keratosis 11/17/2002 HTN, goal below 140/90 10/27/2002 Major depressive disorder 08/18/2001 Overview: ICD-10 update of inactive term SBO (small bowel obstruction) Overview: 04/23 admit. 11/21 [facility] improved w/NPO. Cont ETOH abuse documented as of this encounter (statuses as of 05/28/2023) Resolved Problems Problem Noted Date Resolved Date Acute ST elevation myocardial infarction (STEMI) 11/21/2022 11/26/2022 COPD, group A, by GOLD 2017 classification 11/1911/14/2021 Overview: Per COPD GOLD Classification COPD, mild 07/09/2018 11/23/2019 Overview: 2018 PFTs mild obstruction. Breo started--feels breathing is better. Thrombocytopenia 07/06/2018 10/25/2019 Exertional angina 10/22/2016 01/01/2017 Coronary atherosclerosis of [place] coronary moody ry 12/26/2013 03/22/2019 Colon cancer 10/06/2013 08/18/2017 Cancer Staging:Clinical:Stage IIIA(T1, N1, M0) - Signed by Aiden Beauchamp MD on 11/24/2013 Pathologic: Unsigned Overview: 09/29/13 S/p partial sigmoid colectomy-Dr Steiner. Pathologic stage pT1N1a. (metastatic adenocarcinoma 08/25 nodes, invading submucosa) Pre-op testing 09/13/2013 02/25/2017 Routine general medical exam ination at a health care facility 01/25/2013 05/30/2018 Overview: 03/26 CT chest [facility] 6mm nodule. Mak 6mo ordered. 11/24 stopped [...] 7-9th rib frx 04/01/10CT neck @[facility]-mild osteophytes 2008 colonoscopy-WNL. 08/14/03. Colonoscopy-The polyp at 45 cm showed moderate atypia. 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 TIA (transient ischemic attack) 02/25/2017 documented as of this encounter (statuses as of 05/28/2023) Immunizations Name Administration Dates Next Due COVID-19 [...] alcohol) whiskey:up to 3-4 drinks, 3-4 days/week Food Insecurity Answer Date Recorded Within the past 12 months, y ou worried that your food would run out before you got money to buy more. Never true 04/08/2023 Within the past 12 months, t he food you bought just didn't last and you didn't have money to get more. Never true 04/08/2023 Sex Assigned at Date Recorded Male 04/08/2023 10:30 AM EDT Job Start Date Occupation Industry Not on file Not on file Not on file documented as of this encounter Last Filed Vital Signs Vital Sign Reading Time Taken Comments Blood Pressure 108/66 05/28/2023 10:46 AM EDT Pulse 59 05/28/2023 10:46 AM EDT Temperature - - Respiratory Rate 18 05/28/2023 10:46 AM EDT Oxygen Saturation 95% 05/28/2023 10:46 AM EDT Inhaled Oxygen Concentration - - Weight - - Height - - Body Mass Index - - documented in this encounter Functional Status Functional [...] as of this encounter Progress Notes * Elvira Winkler LPN - 05/28/2023 11:27 AM EDT PRE - ADMINISTRATION DOCUMENTATION Are you experiencing any cold symptoms or fever? No Have you had Guillain-[place] Syndrome (an illness that causes paralysis) within the last 6 weeks? No Have you had the flu shot in the past? YES Have you ever had a reaction to the flu shot? No Elvira Winkler LPN, 05/28/2023 11:27 AM Immunization Administration Documentation Time Out Procedure Performed: Yes Patient Identified (Ask Name/Date of ): Yes Does the patient have a fever greater than 101 degrees today? No Patient allergic to latex? No VFC Stock: No Immunization(s) verified: Yes, Immunization Name: Flu, VIS Sheet(s) given: Yes Verified Side and Site: Yes Verified Shot(s) with Parent(s)/Patient: Yes * Miguel Suarez MD - 05/28/2023 11:26 AM EDT SUBJECTIVE: Curtis Jamil is a 72 year old male here for Return Visit (6 month return) . Here for f/u Feeling pretty tired over the last year. Takes naps. He is doing cardiac rehab Wednesday. He does feel good about doing this. Had his colonoscopy rescheduled for September. Is interested in getting a flu shot today but not the COVID he does not want that any further. ROS: Negative except above. Past Medical History: Diagnosis Date Alcohol consumption [...] with stent 09/11/2016 SBO (small bowel obstruction) ([facility]) 11/21 [facility] improved w/NPO SBO (small bowel obstruction) ([facility]) 04/23 admit. 11/21 [facility] improved w/NPO. Cont ETOH abuse TIA (transient ischemic attack) 1979 TSV-bvznxum-dyh on coumadin x30y Past Surgical History: Procedure Laterality Date CABG, ARTERY-VEIN, FIVE 1992 [facility] CARDIAC ANGIOPLASTY, PERCUTANEOUS, 1 ARTERY Bilateral 11/24/2022 PTCA, CARDIAC ANGIOPLASTY, PERCUTANEOUS, 1 ARTERY performed by Johnny Schofield MD at [facility] CARDIAC CATH SCANNED RESULT 09/11/2016 cardiac stent-PRESTON the the SVG to 1st OM due to 95% stenosis. CARDIAC CATH-CARDIOLOGY ONLY 04/02/2023 Dr Paredes @[facility]. focus on CABG sites-no lesions. stent open. diagonal disease. CARPAL TUNNEL SURGERY 2004 right CARPAL TUNNEL SURGERY Left 01/03/2021 NEUROPLASTY MEDIAN NERVE AT CARPAL TUNNEL performed by Higinio Lindsay MD at [facility] COLONOSCOPY, DIAGNOSTIC (RECTUM) 09/05/2013 COLONOSCOPY FLEXIBLE PROXIMAL DIAGNOSTIC performed by Milvia Arnold MD at ENDOSCOPY [facility] COLONOSCOPY, DIAGNOSTIC (RECTUM) 10/01/2014 diverticulosis, repeat 3 yrs/COLONOSCOPY FLEXIBLE PROXIMAL DIAGNOSTIC performed by Milvia Arnold MD at ENDOSCOPY [facility] COLONOSCOPY, DIAGNOSTIC (RECTUM) 10/20/2017 adenomatous polyp, repeat 5 yrs/COLONOSCOPY FLEXIBLE PROXIMAL DIAGNOSTIC performed by Milvia Arnold MD at ENDOSCOPY [facility] CORONARY ANGIOGRAPHY W/LEFT HEART CATH 11/04/2016 CORONARY ANGIOGRAPHY W/LEFT HEART CATH performed by Liz Zhang MD at [facility] EGD, FLEXIBLE, DIAGNOSTIC 04/28/2022 normal bx / ESOPHAGOGASTRODUODENOSCOPY (EGD), FLEXIBLE, TRANSORAL, DIAGNOSTIC performed by Syed Ferrara MD at ENDOSCOPY [facility] KNEE ARTHROSCOPY, DIAGNOSTIC Knee Arthroscopy, several MISCELLANEOUS ORDER ([facility] ONLY) sinus trubinate reduction MISCELLANEOUS ORDER ([facility] ONLY) left great toe surgery PARTIAL REMOVAL OF COLON 09/29/2013 Sigmoid colon resection with stapled end-to-end anastomosis, [facility], Dr. 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 2grandkid daughter -Sharon, son-Jamey sharif 2 grandsons . has friend. 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 Other (diverticulitis) Mother Other (denies fh skin disorder) Mother no family hx Prostate Glaucoma Sister local. No Known Problems Daughter No Known Problems Son Current Outpatient Medications Medication Sig Dispense Refill Cholecalciferol 5000 UNITS TABS Take 5,000 Units by mouth in the morning. pyridOXINE (VITAMIN B-6) 100 MG Tablet Take 1 Tablet by mouth in the morning. oxygen GAS 2 LPM bled through NC during hours of sleep 1 Each 0 Famotidine 20 MG Oral Tablet (Pepcid) Take by mouth 1 Tablet in the morning AND 1 Tablet before bedtime. 180 Tablet 3 Pantoprazole Sodium 40 MG Oral Tablet Delayed Release (Protonix) Take by mouth 1 Tablet in the morning AND 1 Tablet before bedtime. 180 Tablet 3 Clopidogrel Bisulfate 75 MG Oral Tablet (pLAVix) TAKE 1 TABLET BY MOUTH EVERY DAY 90 Tablet 3 NF Formulas Testosterone Oral Capsule Take 1 [...] DOSES IN 15 MINUTES 25 Tablet 1 Alirocumab 150 MG/ML Subcutaneous Solution Auto-injector INJECT 150 MG (1 PEN) UNDER THE SKIN EVERY14 DAYS 6 mL 3 Sertraline HCl 100 MG Oral Tablet (Zoloft) [...] 50 MCG/ACT Nasal Suspension (Flonase) Administer 1 [place] into nostril daily as needed. No current facility-administered medications for this visit. Physical: BP 108/66 | Pulse 59 | Resp 18 | SpO2 95% General-No apparent Distress Head, Eyes, Ears, Nose, Throat--Normocephalic, atraumatic Neck-Supple Lymph-no lymphadenopathy Lungs-Clear to Auscultation bilaterally Cardiovascular--Regular rate & Rhythm, +s1, s2, no murmur Abdomen-soft, nontender, nondistended + bowel sounds Extremities--no edema Neuro-alert & oriented x3 (R53.81, R53.83) Malaise and fatigue (primary encounter diagnosis) Plan: CBC WITH WBC DIFFERENTIAL, IRON SCREEN, INCLUDING TIBC, FERRITIN, TSH WITH FREE T4 IF INDICATED Suspect cardiac related but will f/u anemia Has colonoscopy Meds may contribute (Z87.891) History of cigarette smoking Plan: VASC AORTIC DUPLEX EVAL-COMPLETE (I50.20) HFrEF (heart failure with reduced ejection fraction) (HCC) Plan: cont mgmt cards BP, lipids at goal (I10) HTN, goal below 140/90 Plan: contmgmt (E78.5) Dyslipidemia, goal LDL below 70 Plan: contmgt (This note was completed using the dictation program Fluency Direct. As such, there may be misspellings, word substitutions, or other variations that should not change the essence of the clinical content of this encounter note.If there is need for further clarification, please direct questions to the provider listed above.) Miguel Suarez MD documented in this encounter Nursing Notes * Elvira Winkler LPN - 05/28/2023 10:46 AM EDT The patient has been properly identified by confirmation of name and date of . Chief Complaint Patient presents with Return Visit 6 month return documented in this encounter Plan of Treatment Upcoming Encounters Date Type Specialty Care Team Description 05/28/2023 Laboratory Laboratory [facility] [address] [place] [address] Arrived 06/07/2023 Imaging Radiology 07/27/2023 Office Visit Sleep Disorders Mica Hernandez CRNP [address] [place] [place] [address] 09/13/2023 Hospital Encounter Endoscopy Milvia Arnold MD [address] [place] [place] [address] 09/13/2023 Surgery Endoscopy Milvia Arnold MD [address] [place] [place] [address] COLONOSCOPY FLEXIBLE PROXIMAL DIAGNOSTIC 11/10/2023 Office Visit Cardiology Vivienne Sunshine CRNP [address] [place] [address] 01/12/2024 Office Visit Family Medicine Miguel Suarez MD [address] [place] [address] Scheduled Orders Name Type Priority Associated Diagnoses Orde r Schedule CBC WITH WBC DIFFERENTIAL Lab Routine Malaise and fatigue Expected: 05/28/2023 (Approximate), Expires: 05/28/2024 IRON SCREEN, INCLUDING TIBC Lab Routine Malaise and fatigue Expected: 05/28/2023 (Approximate), Expires: 05/27/2024 FERRITIN Lab Routine Malaise and fatigue Expected: 05/28/2023 (Approximate), Expires: 05/27/2024 TSH WITH FREE T4 IF INDICATED Lab Routine Malaise and fatigue Expected: 05/28/2023 (Approximate), Expires: 05/27/2024 VASC AORTIC DUPLEX EVAL-COMPLETE Medical Imaging Routine History of cigarette smoking Ordered: 05/28/2023 Scheduled Procedures Name Priority Associated Diagnoses Date/Ti [...] Depression Screening 04/08/2024 04/08/2023, 03/23/2018 (Declined) GFR 04/08/2024 04/08/2023, 12/08, 12/03/2022, Additional history exists Albumin/Creatinine Ratio 01/21/2026 023, [...] this encounter Medical Devices Implanted Type Area Booth Cashier Device Identifier Shelf Expiration Date Model / Serial / Lot Stent Synergy Xd Mr [id number] - [id number] Implanted:Qty: 1 on 11/24/2022 by Johnny Schofield MD at [facility] [email or web address] [id number] 07/24/2023 [id number] / / [id number] documented as of this encounter Visit Diagnoses Diagnosis Malaise and fatigue- Primary Other malaise and fatigue History of cigarette smoking HFrEF (heart failure with reduced ejection fraction) (HCC) HTN, goal below 140/90 Unspecified essential hypertension Dyslipidemia, goal LDL below 70 Other and unspecified hyperlipidemia Need for prophylactic vaccination and inoculation against influenza History of colon polyps Personal history of [...] the patient have Health Care Power of Attendant Campground? No Care Teams Stabber Relationship Specialty Start Date End Date Miguel Suarez MD [address] [place] [address] PCP - General Family Medicine 07/25/14 documented as of this encounter
--- OUTSIDE RECORDS SUMMARY | 2023-08-09 07:49 | External Medical Summary | Summary of Care ---
Author Name Unknown Organization [facility] Address [address] [facility] [facility] [place] [address] Phone [phone] Care Team Providers Care In Flight Crew Member Name Role Phone Miguel Maki MD Primary Care Provider + Reason for Visit * Reason Comments eRx-Medication Refill Encounter Details Date Type Department Care Team (Late st Contact Info) Description 06/21/[address] [facility] [address] [place] [id number] Miguel Maki MD [address] [place] [address] Atherosclerosis of coronary artery of [place] heart with stable angina pectoris, unspecified vessel or lesion type (HCC); Cerebrovascular disease, arteriosclerotic, post-stroke Allergies Active Allergy Reactions Criticality Noted Date Comments Atorvastatin 03/04/2018 Myalgia Fluticasone Furoate-Vilanterol 12/24/2021 Tightness in chest Rosuvastatin Calcium 03/04/2018 myalgia Iodinated Contrast Media Anaphylaxis,Itching High 04/26/2008 Contrast dye Other Allergy (See Comments) 04/24/2022 Product Containing 6-nqflitv-5-methylgl utaryl-coenzyme A Reductase Inhibitor (product) Simvastatin 03/04/2018 myalgia documented as of this encounter (statuses as of 06/22/2023) Medications Medication Sig Dispensed Refills Start Date [...] Sublingual Tablet Sublingual (Nitrostat)Indica tions:Atheroscler osis of [place] coronary artery of [place] heart with other form of angina pectoris (HCC),Exertional angina,Coronary artery disease involving coronary bypass graft of [place] heart with angina pectoris (HCC) PLACE 1 [...] before bedtime. 180 Tablet 3 3 Active Sacubitril-Valsar loera 24-26 MG Oral Tablet [...] 50 MCG/ACT Nasal Suspension (Flonase) Administer 1 Barnum into nostril daily as needed. 0 Active Famotidine 20 MG Oral Tablet (Pepcid)Indicatio ns:Chronic nausea TAKE 1 TABLET BY MOUTH EVERY DAY IN THE MORNING AND BEFORE BEDTIME 180 Tablet 3 3 Active Pantoprazole Sodium 40 MG Oral Tablet Delayed Release (Protonix) TAKE 1 TABLET BY MOUTH EVERY DAY IN THE MORNING AND BEFORE BEDTIME 180 Tablet 0 3 Active Alirocumab 150 MG/ML Subcutaneous Solution Auto-injector Inject 150 mg under the skin every 14 days. 6 mL 3 3 Active Clopidogrel Bisulfate 75 MG Oral Tablet (pLAVix)Indicatio ns:Atherosclerosi s of coronary artery of [place] heart with stable angina pectoris, unspecified vessel or lesion type (HCC),Cerebrovasc ular disease, arteriosclerotic, post-stroke TAKE 1 TABLET BY MOUTH EVERY DAY 90 Tablet 3 3 Active Clopidogrel Bisulfate 75 MG Oral Tablet (pLAVix)Indicatio ns:Atherosclerosi s of coronary artery of [place] heart with stable angina pectoris, unspecified vessel or lesion type (HCC),Cerebrovasc ular disease, arteriosclerotic, post-stroke TAKE 1 TABLET BY MOUTH EVERY DAY 90 Tablet 3 2 06/22/20 23 Discontinued documented as of this encounter (statuses as of 06/22/2023) Active Problems Problem Noted Date Diagnosed Date [...] adult exam 04/12/2019 Overview: Daughter-Sherly. 03/31 inferior [place]? Cath- no new lesions of CABG. 12/29 TTE [facility] similar. 11/28 new stent. TTE 45-49%. Mod wall motion abn. Mild AR. Mild dilated A root/ascend 10/28 6MWT ok. 10/27 UE EMG ok. 2017 colon 2mm polyp. Mak 5y 2013 colon CA Chronic major depressive disorder, recurrent epi sode 04/12/2019 Atherosclerosis of [place] co ronary artery of [place] heart with stable angina pectoris 07/06/2018 Lung nodules 05/28/2018 Splenomegaly 04/09/2018 History of colon cancer 04/08/2018 Statin intolerance 01/29/2018 Stable angina 02/01/2017 Coronary artery disease invo lving coronary bypass graft of [place] heart with angina pectoris 09/14/2016 S/P angioplasty [...] (small bowel obstruction) Overview: 04/23 admit. 11/21 [facility] improved w/NPO. Cont ETOH abuse documented as of this encounter (statuses as of 06/22/2023) Resolved Problems Problem Noted Date Diagnosed Date Resolved Date Acute ST elevation myocardia l infarction (STEMI) 11/21/2022 11/26/2022 COPD, group A, by GOLD 2017 classification 11/20/2019 11/14/2021 Overview: Per COPD GOLD Classification COPD, mild 07/09/2018 11/23/2019 Overview: 2018 PFTs mild obstruction. Breo started--feels breathing is better. Thrombocytopenia 07/06/2018 10/25/2019 Exertional angina 10/22/2016 01/01/2017 Coronary atherosclerosis of [place] coronary artery 12/26/2013 03/22/2019 Colon cancer 10/06/2013 08/18/2017 Cancer Staging:Clinical:Stage IIIA(T1, N1, M0) - Signed by Aiden Beauchapm MD on 11/24/2013 Pathologic: Unsigned Overview: 09/29/13 S/p partial sigmoid colectomy-Dr Steiner. Pathologic stage pT1N1a. (metastatic adenocarcinoma 1/17 nodes, invading submucosa) Pre-op testing 09/13/2013 02/25/2017 Routine general medical exam ination at a health care facility 01/25/2013 05/30/2018 Overview: 03/26 CT chest [facility] 6mm nodule. Mak 6mo ordered. 11/24 stopped crestor-myalgias. 08/25 CONSIDER EGD? 10/24 colon-2mm polyp PATH tubular adenoma. Mak 5y Preconetmplative to cut back ETOH. Stable low plat/wbc. 05/24 periph smear done ok. Colonoscopy 09/[address] Sebastian-for Synvisc Needs HARRIET fall 08/22 25mm colon polyp--Path---cancer--resected. 01/19 prostate discussed-declined 11/29/12 RUQ US @ [place]--possible fatty infiltrate 11/11/12 [place]-- T -1.0 hip 07/20 Rib Xray-Right 7-9th rib frx 04/01/10CT neck @[place]-mild osteophytes 2007 colonoscopy-WNL. 08/14/03. Colonoscopy-The polyp at 45 cm showed moderate atypia. long term current use of ant icoagulant therapy 12/24/2003 11/21/2012 Overview: ICD-10 update of inactive term BENIGN NEOPLASM LG BOWEL 08/31/2003 Calculus of kidney 08/18/2001 8 Coronary atherosclerosis Overview: S/p CABG x5 06/24/1993 VICTORIA-D1-LAD TERRY-RCA SVG-OM1 SVG-OM2 PURE HYPERCHOLESTEROLEM 07/09 Overview: Per Lipid Taxonomy. TIA (transient ischemic attack) 02/25/2017 documented as of this encounter (statuses as of 06/22/2023) Immunizations Name Administration Dates Next Due COVID-19 [...] encounter Miscellaneous Notes * Telephone Encounter - Miguel Maki MD - 06/22/2023 5:45 PM ESTSigned Prescriptions: Disp Refills Clopidogrel Bisulfate 75 MG Oral Tablet (p*90 Tab*3 Sig: TAKE 1 TABLET BY MOUTH EVERY DAY Authorizing Provider: MIGUEL MAKI * Telephone Encounter - Nidhi Shook [facility] - 06/22/2023 5:57 AM ESTPending Prescriptions: Disp Refills Clopidogrel Bisulfate 75 MG Oral Tablet [P*90 Tab*3 Sig: TAKE 1 TABLET BY MOUTH EVERY DAY Electronically signed by Nidhi Shook [facility] at 06/22/2023 5:57 AM EST * Telephone Encounter - Nidhi Shook [facility] - 06/22/2023 5:56 AM EST Unable to authorize medication refills for pended medication(s) at this time. Part of the protocol criteria used for refill authorization was not satisfied. Patient had low platelets on last labs. Please approve if appropriate. PLT Date Value Ref Range Status 05/28/2023 113 (L) 140 - 400 K/uL Final 11/26/2022 174 140 - 400 K/uL Final Thank You, Nidhi Shook [facility] Clinical Pharmacist [facility] ([facility]) (formerly Telepharmacy) [phone] 06/22/2023, 5:56 AM Electronically signed by Nidhi Shook [facility] at 06/22/2023 5:57 AM EST documented in this encounter Plan of Treatment Upcoming Encounters Date Type Department Care Team (Latest Contact Info) Description 07/27/2023 10:30 AM EST Office Visit Sleep Disorders [facility]tr [facility] [address] [place] [phone] Mica Hernandez CRNP [address] [place] [address] 09/13/2023 9:00 AM EST Hospital Encounter [facility], Endoscopy Room [facility] [address] [place] [phone] Milvia Arnold MD [address] [place] [address] 09/13/2023 9:00 AM EST - 09/13/2023 9:30 AM EST Surgery ENDO [facility], Endoscopy Room [facility] [address] [place] [phone] Milvia Arnold MD [address] [place] [address] COLONOSCOPY FLEXIBLE PROXIMAL DIAGNOSTIC 11/10/2023 11:00 AM EDT Office Visit Cardiology, [facility] [address] [place] [address] Vivienne Sunshine CRNP [address] [place] [address] 01/12/2024 12:00 PM EDT Office Visit Family Practice [facility] [address] [place] [phone] Miguel Maki MD [address] [place] [address] Scheduled Procedures Name Priority Associated Diagnoses Date/Ti [...] this encounter Medical Devices Implanted Type Area Painter Decorator Device Identifier Shelf Expiration Date Model / Serial / Lot Stent Synergy Xd Mr [id number] - [id number] Implanted:Qty: 1 on 11/24/2022 by Johnny Schofield MD at [facility] [place] [employer] [id number] 07/24/2023 [id number] / / [id number] documented as of this encounter Visit Diagnoses Diagnosis Atherosclerosis of coronary artery of [place] heart with stable angina pectoris, unspecified vessel or lesion type (HCC) Cerebrovascular disease, arteriosclerotic, post-stroke Cerebral atherosclerosis History of colon polyps Personal history of [...] the patient have Health Care Power of Food Tester? No Care Teams In Flight Crew Member Relationship Specialty Start Date End Date Miguel Maki MD [address] [place] [phone] PCP - General Family Medicine 07/25/14 documented as of this encounter
--- OUTSIDE RECORDS SUMMARY | 2023-08-09 07:49 | External Medical Summary | Summary of Care ---
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 (HCC); HTN, goal below 140/90; Dyslipidemia, goal LDL below 70; HFrEF (heart failure with reduced ejection fraction) ([facility]) Allergies Active Allergy Reactions Severity Noted Date Comments Atorvastatin 03/04/2018 Myalgia Fluticasone Furoate-Vilanterol 12/24/2021 Tightness in chest Rosuvastatin Calcium 03/04/2018 myalgia Iodinated Contrast Media Anaphylaxis,Itching High Contrast dye Other Allergy (See Comments) 04/24/2022 Product Containing 9-ulenuyl-3-methylglu taryl-coenzyme A Reductase Inhibitor (product) Simvastatin 03/04/2018 myalgia documented as of this encounter (statuses as of 05/06/2023) Medications Medication Sig Dispensed Refills Start Date [...] Tablet (pLAVix)Indication s:Atherosclerosis of coronary artery of knik heart with stable angina pectoris, unspecified vessel [...] Sublingual Tablet Sublingual (Nitrostat)Indicat ions:Atheroscleros is of knik coronary artery of knik heart with other form of angina pectoris (HCC),Exertional angina,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 UP TO 3 DOSES IN 15 MINUTES 25 Tablet 1 09/30/2022 Active Additional Information Patient not taking.Reported on 05/06/2023 Alirocumab 150 MG/ML Subcutaneous Solution Auto-injector INJECT 150 MG (1 PEN) UNDER THE SKIN EVERY 14 DAYS 6 mL 3 06/16/2022 06/16/2023 Active Sertraline HCl 100 MG Oral Tablet [...] 50 MCG/ACT Nasal Suspension (Flonase) Administer 1 [place] into nostril daily as needed. 0 Active documented as of this encounter (statuses as of 05/06/2023) Active Problems Problem Noted Date Chronic combined [...] adult exam 04/12/2019 Overview: Daughter-Sherly. 03/31 inferior OH? Cath- no new lesions of CABG. 12/29 TTE [facility] similar. 11/28 new stent. TTE 45-49%. Mod wall motion abn. Mild AR. Mild dilated A root/ascend 10/28 6MWT ok. 10/27 UE EMG ok. 2017 colon 2mm polyp. Mak 5y 2014 colon CA Chronic major depressive disorder, recur rent episode 04/12/2019 Atherosclerosis of knik co ronary artery of knik heart with stable angina pectoris 07/06/2018 Lung nodules 05/28/2018 Splenomegaly 04/09/2018 History of colon cancer 04/08/2018 Statin intolerance 01/29/2018 Stable angina 02/01/2017 Coronary artery disease invo lving coronary bypass graft of knik heart with angina pectoris 09/14/2016 S/P angioplasty [...] (small bowel obstruction) Overview: 04/23 admit. 11/21 [facility] improved w/NPO. Cont ETOH abuse documented as of this encounter (statuses as of 05/06/2023) Resolved Problems Problem Noted Date Resolved Date Acute ST elevation myocardial infarction (STEMI) 11/21/2022 11/26/2022 COPD, group A, by GOLD 2017 classification 11/1911/14/2021 Overview: Per COPD GOLD Classification COPD, mild 07/09/2018 11/23/2019 Overview: 2018 PFTs mild obstruction. Breo started--feels breathing is better. Thrombocytopenia 07/06/2018 10/25/2019 Exertional angina 10/22/2016 01/01/2017 Coronary atherosclerosis of knik coronary moody ry 12/26/2013 03/22/2019 Colon cancer 10/06/2013 08/18/2017 Cancer Staging:Clinical:Stage IIIA(T1, N1, M0) - Signed by Aiden Beauchamp MD on 11/24/2013 Pathologic: Unsigned Overview: 09/29/13 S/p partial sigmoid colectomy-Dr Steiner. Pathologic stage pT1N1a. (metastatic adenocarcinoma 08/25 nodes, invading submucosa) Pre-op testing 09/13/2013 02/25/2017 Routine general medical exam ination at a health care facility 01/25/2013 05/30/2018 Overview: 03/26 CT chest [facility] 6mm nodule. Mak 6mo ordered. 11/24 stopped crestor-myalgias. 08/25 CONSIDER EGD? 10/24 colon-2mm polyp PATH tubular adenoma. Mak 5y Preconetmplative to cut back ETOH. Stable low plat/wbc. 05/24 periph smear done ok. Colonoscopy 09/[address] Sebastian-for Synvisc Needs HARRIET fall 08/22 25mm colon polyp--Path---cancer--resected. 01/19 prostate discussed-declined 11/29/12 RUQ US @ [facility]--possible fatty infiltrate 11/11/12 DEXA @[facility]-- T -1.0 hip 07/20 Rib Xray-Right 7-9th rib frx 04/01/10CT neck @[facility]-mild osteophytes 2008 colonoscopy-WNL. 08/14/03. Colonoscopy-The polyp at 45 cm showed moderate atypia. manager terminal current use of anticoagulant therapy 0 12/24/2003 11/21/2012 Overview: ICD-10 update of inactive term BENIGN NEOPLASM LG BOWEL 08/31/2003 019 Calculus of kidney 08/18/2001 05/30/2018 Coronary atherosclerosis 019 Overview: S/p CABG x5 06/24/1993 VICTORIA-D1-LAD TERRY-RCA SVG-OM1 SVG-OM2 PURE HYPERCHOLESTEROLEM 07/24/20 09 Overview: Per Lipid Taxonomy. TIA (transient ischemic attack) 02/25/2017 documented as of this encounter (statuses as of 05/06/2023) Immunizations Name Administration Dates Next Due COVID-19 [...] Unspecified Formulation 06/09/2021,05/11/2020,06/15/2019,04/09,04/09/2018,05/09/2015,05/16/2009 Seasonal Influenza, PF, 6 mo ns & Above, IM , (Flulaval) 05/11/2020,07/07/2017,06/22/2014,04/19,04/20/2012,04/20/2011 Seasonal Influenza, Quadriva lent Hd (Fluzone [...] Sign Reading Time Taken Comments Blood Pressure 100/60 05/06/2023 8:37 AM EDT Pulse 64 05/06/2023 8:37 AM EDT Temperature - - Respiratory Rate 18 05/06/2023 8:37 AM EDT Oxygen Saturation - - Inhaled Oxygen Concentration - - Weight 94.8 kg (209 lb) 05/06/2023 8:37 AM EDT Height - - Body Mass Index 31.78 01/27/2023 11:02 AM EDT documented in this encounter Functional Status Functional [...] as of this encounter Progress Notes * TIMBO Jo - 05/06/2023 8:30 AM EDT Images from the original note were not included. 05/05/2023 Cardiology Follow Up Primary Pipe Smoker Machine Operator: Dr. Kaiser Cardiac Problems: CAD (S/P CABG x5 VICTORIA-D1-LAD, TERRY-distal RCA, SVG-OM1, SVG-OMII Gurjit 06/1993) History of complex coronary anatomy, PCI and stenting of an SVG to OM1 graft in September 2016, at time of repeat cardiac catheterization performed October,, stent was patent with diffuse nonobstructive disease elsewhere for which ongoing medical management was recommended Dyslipidemia with statin intolerance to agents including simvastatin, atorvastatin, and rosuvastatin, now on Praluent. Compliance encouraged. LDL improving Hypertension - controlled 4. Acute STEMI 11/20/22 with cath revealing 90% stenosis of the [facility]. Other severe knik vessel disease and 2 occluded vein grafts. On 11/24/22patient received PRESTON to the VICTORIA- LAD anastomosis into the mid LAD with excellent results. 5. HFrEF with recent acute CHF exacerbation requiring hospitalization at [facility] December 2022. LVEF 45% 6. Intermittent LBBB HPI: Curtis Jamil is a 72 year old male presents for routine cardiology follow up. Last seen in our office by Maria Del Carmen Sam PA-C 12/22/3022 doing significantly better after a recent STEMI, CHF exacerbation. Patient presents today feeling well. He is still participating in cardiac rehab. He noted that he gets some occasional twinges of pain, left sided and stretches across his chest, denies any aggrevating or alleviating factors. Typically last a few minutes. He states they can happen at rest and at exertion, but are never consistent, meaning he can do the same exercise 3 days in a row and only experi ence it one of the 3 days. He has also experienced them at cardiac rehab which he resulted in EKG and concern for a STEMI on 04/02/23. He was taken to the ER at [facility] and rushed to the Catheterization lab by Dr.James Phillips who preformed and Left heart cath for shortness of breath and EKG concerns for an inferior wall OH. Patient was asymptomatic by the time of catheterization and coronary angiography without definitive acute lesion in the TERRY graft or knik PDA, posteriorlateral branch or RCA. No lesion found in the VICTORIA graft or distal knik LAD/wrap around. No target for PCI. He was kepton a heparin gtt overnight with question of thrombus which had resolved with heparin vs coronary vasospasm. Patient has returned to cardiac rehab since and is doing well. BP low normal. He does endorse some orthostatic hypotension symptoms. He is very happy with his medication therapies and does not want to change them. Denies any new or worsening shortness of breath and feels that his legs are "normal" today, denies any swelling. Reports medication compliance. REVIEW OF SYSTEMS: See HPI for pertinent positives. All others negative other than those noted in the HPI. CONSTITUTIONAL: No change in weight, No weakness, No fatigue and No fevers, No sweats or chills. PULMONARY: No cough, sputum, or hemoptysis, No wheezing, No shortness or breath and No recent change in breathing. CARDIOVASCULAR: No chest pain, No dyspnea on exertion, No edema, No palpitations and No syncope. GASTROINTESTINAL: No abdominal pain, No change in bowel habits, No significant heartburn, No nausea, No vomiting, No diarrhea, No constipation, No blood in stools or black tarry stools. No dysphagia. HEMATOLOGIC: No abnormal bleeding and No bruising. NEUROLOGICAL: Normal balance, No headaches and No weakness. Review of patient's allergies indicates: Allergen Reactions Iodinated Contrast Media Anaphylaxis and Itching Contrast dye Atorvastatin Myalgia Breo Ellipta [Fluticasone Furoate-Vilanterol] Tightness in chest Crestor [Rosuvastatin Calcium] myalgia Other Allergy (See Comments) Product Containing 0-fymbzcf-5-methylglutaryl-coenzyme A Reductase Inhibitor (product) Simvastatin myalgia Current Outpatient Medications Medication Sig Dispense Refill [...] TABLET IN THE EVENING 135 Tablet 3 Alirocumab 150 MG/ML Subcutaneous Solution Auto-injector INJECT [...] 50 MCG/ACT Nasal Suspension (Flonase) Administer 1 [place] into nostril daily as needed. Nitroglycerin 0.4 MG Sublingual Tablet Sublingual (Nitrostat) PLACE 1 TAB UNDER THE TONGUE EVERY 5 MINUTES NEEDED FOR PAIN, CHEST. UP TO 3 DOSES IN 15 MINUTES (Patient not taking: Reported on 05/06/2023) 25 Tablet 1 No current facility-administered medications for this visit. Past Medical History: Diagnosis Date Alcohol consumption [...] 09/11/2016 SBO (small bowel obstruction) (HCC) 11/21 [facility] improved w/NPO SBO (small bowel obstruction) (HCC) 04/23 admit. 11/21 [facility] improved w/NPO. Cont ETOH abuse TIA (transient ischemic attack) 1979 IFP-ueheecy-pdl on coumadin x30y Family History Problem Relation Age of Onset Cancer Father esophageal Heart disease Father Heart Disorder Mother CHF, 92 . Other (diverticulitis) Mother Other (denies fh skin disorder) Mother no family hx Prostate Glaucoma Sister local. 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 2grandkid daughter -Sharon, son-Jamey sharif 2 grandsons . has friend. 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 A+Ox3. HEENT: Normocephalic. Atraumatic. PERRL. EOMI. Conjunctiva and sclera clear. NECK: No carotid bruits. No JVD. Carotid upstrokes are brisk. Heart: RRR. S1 and S2 noted. No murmur. No rubs or gallops. PMI non displaced. Lungs: Clear to auscultation. No wheezes.No rhonchi. No rales. Abdomen: Normal bowel sounds. Soft. Nontender. No masses or organomegaly. No abdominal bruits. Extremities: No edema. No clubbing or cyanosis. Pulses: radial=2/4, posterior tibial=2/4, dorsalis pedis = 2/4. NEURO: No focal deficits. PSYCH: Appropriate affect and insight. DATA Labs & Imaging Reviewed Below: EKG at [facility] dated December 18, 2022: NSR with 1st degree AV block LBBB Echocardiogram report reviewed dated December 16, 2022 at [facility]: Cardiac catheterization report reviewed dated November 24, 2022: * Distal VICTORIA-LAD anastomosis has 90% stenosis into the mid LAD S/P successful PCI with 2.5 x 20 mmSynergy PRESTON which was post dilated with 2.75 NC balloon. Final angiogram showed excellent result with 0% residual stenosis, a good step- up and step-down, BRIAN III flow and no evidence of dissection or perforation Echocardiogram report reviewed dated November 21, 2022: Interpretation Summary This is a limited study performed by the on-call fellow overnight. The examination is limited quality but adequate for evaluation of the referral indication. The left ventricular systolic function is qualitatively normal. There is a moderate sized apical, inferior, and posterior wall motion abnormality with akinesis of the segments. The right ventricular size is qualitatively normal. Image resolution does not allow for accurate measurement. The right ventricular systolic function is qualitatively normal. Echo report reviewed dated November 2022: Interpretation Summary The examination is adequate to evaluate the referral indication. The qualitative LV ejection fraction is 45-49% (mildly reduced). The LV wall thickness is mildly increased (concentric). There is a moderate sized apical, inferior, and posterior wall motion abnormality with akinesis of the segments. The right ventricular cavity size is normal (basal dimension < 4.2 cm RV apical 4 chamber view). The right ventricular systolic function is qualitatively normal. Mild aortic valve regurgitation is present. The aortic root and proximal ascending aorta are mildly enlarged. Cath report reviewed from [facility] dated November 20, 2022: Summary: 1. Severe chronic knik coronary artery disease -100% ostial LAD occlusion - 100% ostial circumflex occlusion - 100% proximal RCA occlusion 2. Occluded SVG to OM1, SVG to OM 2 (SVG to OM 2 likely subacute). 3. VICTORIA Y graft to LAD, diagonal widely patent. 90% stenosis at anastomosis of LAD, 95% at anastomosis of diagonal. 4. TERRY to PDA widely patent 5. Elevated intracardiac filling pressure. Recommendations: Recommend transfer to [facility] for consideration of complex PCI of VICTORIA to LAD/diagonal anastomotic lesions. EKG performed NSR with 1st degree AV block. Possible ST elevation in III, AVF T wave inversions in I/AVL and V3-V6. ASSESSMENT/PLAN: 72 year old year old male 1. Hospital discharge follow-up -Doing well from a cardiovascular standpoint. Remains compliant on all medication therapies and hasreturned to cardiac rehab without recurrence of events. 2. 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 -continue GDMT with toprol xl 50mg Qd, ASA 81mg QD, Plavix 75mg QD, entresto 24/46mg BID. Also continue amlodipine 10mg QD and Ranexa 500mg BID for vasospasm/angina. 3. HTN, goal below 140/90 -Well controled. Patient does endorse some signs of orthostatic hypotension. Discussed his current medication regimen and purpose for each med. Discussed consideration for relaxing his Terazosin if his orthostatic symptoms are too much. This has been mentioned before, and patient is resistant to want to change or decrease medications. -Discussed hydration status and use of compression stockings. -Continue Toprol xl, Amlodipine, entresto, furosemide and Terazosin. 4. Dyslipidemia, goal LDL below 70 -Most recent labs stable. Continue with heart healthy diet, dicussed how to accommodate a heart healthy diet as well as a low residue diet recommended by GI due to diverticulitis. -Patient is not currently on statin therapy due to intolerance. 5. HFrEF (heart failure with reduced ejection fraction) ([facility]) -Euvolemic today. Most recent echo is stable. Repeat next year -Continue Furosemide -Also continue Toprol xl, and Entresto as part of HF regimen. DISPOSITION: Follow up 6 months or if symptoms worsen/fail to improve. All questions were answered to the patients satisfaction. Patient advised to report to ED with any and all emergencies. The patient agrees to the above plan and will call with additional questions or concerns. TIMBO Sarmiento Cardiology, [facility] [address] [facility] [place] [id number] I spent a total of 50 minutes on the date of service in preparation, delivery, and documentation ofthe care provided to Curtis Jamil excluding any time spent in the performance of separately billed services. This chart was completed in part utilizing [employer] Speech Voice Recognition Software. Grammatical errors, random word insertions, pronoun errors, and incomplete sentences are an occasional consequence of this system due to software limitations, ambient noise, and hardware issues. Any formal questions or concerns about the content, text, or information contained within the body of this dictation should be directly addressed to the provider for clarification. documented in this encounter Nursing Notes * Velvet Roach LPN - 05/06/2023 8:30 AM EDT Examination Room: 1 Name: Curtis aJmil Date of : (1950) Reason for Visit: Follow up Interim Hospitalization(s): [facility] Problems/Concerns: Lightheadedness occasionally Chest Pain/SOB: Denies My [facility] is a way you can talk to your provider online through e-mail. Would you like to sign up? I can activate it for you? ALREADY ACTIVE Patient was instructed to not get up on the exam table until directed and assisted by their provider; patient is to remain seated in the chair/ wheelchair/ exam table for fall prevention and safety reasons. Patient is aware to have assistance to step down off exam table with personnel. Patient voiced full comprehension of instructions. documented in this encounter Plan of Treatment Upcoming Encounters Date Type Specialty Care Team Description 05/25/2023 PulmDiagnostic Pulmonary Function [place], [facility] [address] [address] 05/28/2023 Office Visit Family Medicine Miguel Suarez MD [address] [address] 07/27/2023 Office Visit Sleep Disorders Mica Hernandez CRNP [address] [address] 09/13/2023 Hospital Encounter Endoscopy Milvia Arnold MD [address] [place] [address] 09/13/2023 Surgery Endoscopy Milvia Arnold MD [address] [place] [address] COLONOSCOPY FLEXIBLE PROXIMAL DIAGNOSTIC 11/10/2023 Office Visit Cardiology Vivienne Sunshine CRNP [address] [place] [address] Scheduled Procedures Name Priority Associated Diagnoses Date/Ti me COLONOSCOPY FLEXIBLE PROXIMAL DIAGNOSTIC Recall History of colon polyps History of colon cancer 09/13/2023 9:00 AM EST Health Maintenance Due Date Last Done Comments AAA Screening 2015 COVID-19 Vaccine (6 - Moderna series) 09/15/2021 07/21/2021, 07/21/2021, 10/16/2020, Additional history exists COLONOSCOPY-EVERY 5 YRS AGES 18-100 10/20/2022 10/20/2017, 10/20/2017, 10/01/2014, Additional history exists Influenza Vaccine (FLU shot) (#1) 2023 06/29/2022, 06/09/2021, 05/16/2021, Additional history exists HbA1c 11/22/2023 11/21/2022, 10/07, [...] Completed 06/15/2019, 02/2019, 04/12/2019, Additional history exists GARDASIL-HPV IMMUNIZATION SERIES Aged Out No longer eligible based on patient's age to complete this topic Hepatitis B Aged Out No longer eligi ble based on patient's age to complete this topic MENINGOCOCCAL (MENACTRA/MENVEO) Aged Out No longer eligible based on patient's age to complete this topic documented as of this encounter Medical Devices Implanted Type Area Poultry Picker Device Identifier Shelf Expiration Date Model / Serial / Lot Stent Synergy Xd Mr [id number] - [id number] Implanted:Qty: 1 on 11/24/2022 by Johnny Schofield MD at [facility] Sprig [id number] 07/24/2023 [id number] / / [id number] documented as of this encounter Visit Diagnoses Diagnosis Hospital discharge follow-up- Primary Other follow-up examination 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 No Care Teams Pcb Design Engineer Relationship Specialty Start Date End Date Miguel Suarez MD [address] [place] [address] PCP - General Family Medicine 07/25/14 documented as of this encounter
--- OUTSIDE RECORDS SUMMARY | 2023-08-09 07:49 | External Medical Summary | Summary of Care ---
Author Name Unknown Organization [facility] Address [address] [address] Phone [phone] Care Team Providers Care Channel Layer Name Role Phone Miguel Suarez MD Primary Care Provider + Reason for Visit * Reason Comments Oxygen Assessment 6 minute walk Encounter Details Date Type Department Care Team Description 05/25/2023 PulmDiagnostic Pulmonary Function Lab, [facility] [address] [facility] [place] [address] [address], [address] [facility] [place] [address] Nocturnal hypoxemia*; Asthma with severity to be determined Allergies Active Allergy Reactions Severity Noted Date Comments Atorvastatin 03/04/2018 Myalgia Fluticasone Furoate-Vilanterol 12/24/2021 Tightness in chest Rosuvastatin Calcium 03/04/2018 myalgia Iodinated Contrast Media Anaphylaxis,Itching High Contrast dye Other Allergy (See Comments) 04/24/2022 Product Containing 8-dqobfqp-4-methylglu taryl-coenzyme A Reductase Inhibitor (product) Simvastatin 03/04/2018 myalgia documented as of this encounter (statuses as of 05/25/2023) Medications Medication Sig Dispensed Refills Start Date [...] Tablet (pLAVix)Indication s:Atherosclerosis of coronary artery of [place] heart with stable angina pectoris, unspecified vessel [...] Sublingual Tablet Sublingual (Nitrostat)Indicat ions:Atheroscleros is of [place] coronary artery of [place] heart with other form of angina pectoris (HCC),Exertional angina,Coronary artery disease involving coronary bypass graft of [place] heart with angina pectoris (HCC) PLACE 1 [...] 50 MCG/ACT Nasal Suspension (Flonase) Administer 1 [place] into nostril daily as needed. 0 Active documented as of this encounter (statuses as of 05/25/2023) Active Problems Problem Noted Date Chronic combined [...] adult exam 04/12/2019 Overview: Daughter-Sherly. 03/31 inferior [place]? Cath- no new lesions of CABG. 12/29 TTE [facility] similar. 11/28 new stent. TTE 45-49%. Mod wall motion abn. Mild AR. Mild dilated A root/ascend 10/28 6MWT ok. 10/27 UE EMG ok. 2017 colon 2mm polyp. Mak 5y 2014 colon CA Chronic major depressive disorder, recur rent episode 04/12/2019 Atherosclerosis of [place] co ronary artery of [place] heart with stable angina pectoris 07/06/2018 Lung nodules 05/28/2018 Splenomegaly 04/09/2018 History of colon cancer 04/08/2018 Statin intolerance 01/29/2018 Stable angina 02/01/2017 Coronary artery disease invo lving coronary bypass graft of [place] heart with angina pectoris 09/14/2016 S/P angioplasty [...] (small bowel obstruction) Overview: 04/23 admit. 11/21 [facility] improved w/NPO. Cont ETOH abuse documented as of this encounter (statuses as of 05/25/2023) Resolved Problems Problem Noted Date Resolved Date Acute ST elevation myocardial infarction (STEMI) 11/21/2022 11/26/2022 COPD, group A, by GOLD 2017 classification 11/1911/14/2021 Overview: Per COPD GOLD Classification COPD, mild 07/09/2018 11/23/2019 Overview: 2018 PFTs mild obstruction. Breo started--feels breathing is better. Thrombocytopenia 07/06/2018 10/25/2019 Exertional angina 10/22/2016 01/01/2017 Coronary atherosclerosis of [place] coronary moody ry 12/26/2013 03/22/2019 Colon cancer 10/06/2013 08/18/2017 Cancer Staging:Clinical:Stage IIIA(T1, N1, M0) - Signed by Aiden Beauchamp MD on 11/24/2013 Pathologic: Unsigned Overview: 09/29/13 S/p partial sigmoid colectomy-Dr Steiner. Pathologic stage pT1N1a. (metastatic adenocarcinoma 08/25 nodes, invading submucosa) Pre-op testing 09/13/2013 02/25/2017 Routine general medical exam ination at a health care facility 01/25/2013 05/30/2018 Overview: 03/26 CT chest [facility] 6mm nodule. Mak 6mo ordered. 11/24 [...] hip 07/20 Rib Xray-Right 7-9th rib frx 8/24/[facility]-mild osteophytes 2008 colonoscopy-WNL. 08/14/03. Colonoscopy-The polyp at 45 cm showed moderate atypia. 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 TIA (transient ischemic attack) 02/25/2017 documented as of this encounter (statuses as of 05/25/2023) Immunizations Name Administration Dates Next Due COVID-19 [...] 10 Q uit: 05/29/1989 Smokeless Tobacco: Former Tobacco Cessation:Counseling Given: Not Answered Alcohol Use Standard Drinks/Week Comments Yes 16 [...] Sign Reading Time Taken Comments Blood Pressure 104/62 05/25/2023 10:47 AM EDT Pulse 60 05/25/2023 10:47 AM EDT Temperature 35.6 C (96.1 F) 05/25/2023 1 0:47 AM EDT Respiratory Rate 16 05/25/2023 10:4 7 AM EDT Oxygen Saturation 95% 05/25/2023 10: 47 AM EDT Inhaled Oxygen Concentration - - Weight 94.8 kg (208 lb 15.9 oz) 023 10:47 AM EDT Height 172 cm (5' 7.72") 05/25/2023 10: 47 AM EDT Body Mass Index 32.04 05/25/2023 10:47 AM EDT documented in this encounter Functional [...] bad" 11/20/2022 documented as of this encounter Nursing Notes * Argentina Zabala RRT - 05/25/2023 10:49 AM EDT Curtis Jamil was identified by name, Date of : (1950), and . Vitals were obtained for testing. Body mass index is 32.04 kg/m. Exercise oximetry performed on room air x 6 minutes. Pt ambulated 1530 feet/ 466 meters. No rest periods were required. Lowest SPO2 on room air was 92%. documented in this encounter Plan of Treatment Upcoming Encounters Date Type Specialty Care Team Description 05/28/2023 Office Visit Family Medicine Miguel Suarez MD [address] [place] [address] 07/27/2023 Office Visit Sleep Disorders Mica Hernandez CRNP [address] [place] [address] 09/13/2023 Hospital Encounter Endoscopy Milvia Arnold MD [address] [place] [address] 09/13/2023 Surgery Endoscopy Milvia Arnold MD [address] [place] [address] COLONOSCOPY FLEXIBLE PROXIMAL DIAGNOSTIC 11/10/2023 Office Visit Cardiology Vivienne Sunshine CRNP [address] [place] [address] Scheduled Procedures Name Priority Associated Diagnoses Date/Ti me COLONOSCOPY FLEXIBLE PROXIMAL DIAGNOSTIC Recall History of colon polyps History of colon cancer 09/13/2023 9:00 AM EST Health Maintenance Due Date Last Done Comments AAA Screening 2015 COLONOSCOPY-EVERY 5 YRS AGES 18-100 10/20/2022 10/20/2017, 10/20/2017, 10/01/2014, Additional history exists COVID-19 Vaccine (2022- season) 2023 07/21/2021, 07/21/2021, 10/16/2020, Additional history exists Influenza Vaccine (FLU shot) [...] this encounter Medical Devices Implanted Type Area Haul Cane Brakeman Device Identifier Shelf Expiration Date Model / Serial / Lot Stent Synergy Xd Mr [id number] - [id number] Implanted:Qty: 1 on 11/24/2022 by Johnny Schofield MD at [facility] [employer] [id number] 07/24/2023 [id number] / / [id number] documented as of this encounter Visit Diagnoses Diagnosis Nocturnal hypoxemia- Primary Hypoxemia Asthma with severity to be determined History of colon polyps Personal history of [...] the patient have Health Care Power of Coke Loader? No Care Teams Channel Layer Relationship Specialty Start Date End Date Miguel Suarez MD [address] [place] [address] PCP - General Family Medicine 07/25/14 documented as of this encounter
--- OUTSIDE RECORDS SUMMARY | 2023-08-09 07:49 | External Medical Summary | Summary of Care ---
Author Name Unknown Organization [facility] Address [address] [address] Phone [phone] Care Team Providers Care Mimeographer Name Role Phone Miguel Suarez MD Primary Care Provider + Reason for Visit * Reason Comments Outpatient Testing Encounter Details Date Type Department Care Team Description 05/28/2023 Laboratory Laboratory, [facility] [address] [place] [id number] [facility] [address] [place] [address] Renal insufficiency; Malaise and fatigue Allergies Active Allergy Reactions Severity Noted Date Comments Atorvastatin 03/04/2018 Myalgia Fluticasone Furoate-Vilanterol 12/24/2021 Tightness in chest Rosuvastatin Calcium 03/04/2018 myalgia Iodinated Contrast Media Anaphylaxis,Itching High Contrast dye Other Allergy (See Comments) 04/24/2022 Product Containing 4-kjhelet-9-methylglu taryl-coenzyme A Reductase Inhibitor (product) Simvastatin 03/04/2018 [...] Tablet (pLAVix)Indication s:Atherosclerosis of coronary artery of [place] heart with stable angina pectoris, unspecified vessel [...] Sublingual Tablet Sublingual (Nitrostat)Indicat ions:Atheroscleros is of [place] coronary artery of [place] heart with other form of angina pectoris (HCC),Exertional angina,Coronary artery disease involving coronary bypass graft of [place] heart with angina pectoris (HCC) PLACE 1 [...] MCG/ACT Nasal Suspension (Flonase) Administer 1 [place] into nostril daily as needed. 0 Active [...] adult exam 04/12/2019 Overview: Daughter-Sherly. 03/31 inferior [place]? Cath- no new lesions of CABG. 12/29 TTE [facility] similar. 11/28 new stent. TTE 45-49%. Mod wall motion abn. Mild AR. Mild dilated A root/ascend 10/28 6MWT ok. 10/27 UE EMG ok. 2017 colon 2mm polyp. Mak 5y 2014 colon CA Chronic major depressive disorder, recur rent episode 04/12/2019 Atherosclerosis of [place] co ronary artery of [place] heart with stable angina pectoris 07/06/2018 Lung nodules 05/28/2018 Splenomegaly 04/09/2018 History of colon cancer 04/08/2018 Statin intolerance 01/29/2018 Stable angina 02/01/2017 Coronary artery disease invo lving coronary bypass graft of [place] heart with angina pectoris 09/14/2016 S/P angioplasty [...] (small bowel obstruction) Overview: 04/23 admit. 11/21 [facility] improved w/NPO. Cont ETOH abuse documented as [...] Exertional angina 10/22/2016 01/01/2017 Coronary atherosclerosis of [place] coronary moody ry 12/26/2013 03/22/2019 Colon cancer 10/06/2013 08/18/2017 Cancer Staging:Clinical:Stage IIIA(T1, N1, M0) - Signed by Aiden Beauchamp MD on 11/24/2013 Pathologic: Unsigned Overview: 09/29/13 S/p partial sigmoid colectomy-Dr Steiner. Pathologic stage pT1N1a. (metastatic adenocarcinoma 08/25 nodes, invading submucosa) Pre-op testing 09/13/2013 02/25/2017 Routine general medical exam ination at a health care facility 01/25/2013 05/30/2018 Overview: 03/26 CT chest [facility] 6mm nodule. Mak 6mo ordered. 11/24 stopped crestor-myalgias. 08/25 CONSIDER EGD? 10/24 colon-2mm polyp PATH tubular adenoma. Mak 5y Preconetmplative to cut back ETOH. Stable low plat/wbc. 05/24 periph smear done ok. Colonoscopy 09/[address] Sebastian-for Synvisc Needs HARRIET fall 08/22 25mm colon polyp--Path---cancer--resected. 01/19 prostate discussed-declined 11/29/12 RUQ US @ [facility]--possible fatty infiltrate 11/11/12 DEXA @[facility]-- T -1.0 hip 07/20 Rib Xray-Right 7-9th rib frx 04/01/10CT neck @[facility]-mild osteophytes 2007 colonoscopy-WNL. 08/14/03. Colonoscopy-The polyp at 45 cm showed moderate atypia. [facility] current use of anticoagulant therapy 0 12/24/2003 [...] bad" 11/20/2022 documented as of this encounter Plan of Treatment Upcoming Encounters Date Type Specialty Care Team Description 06/07/2023 Imaging Radiology 07/27/2023 Office Visit Sleep Disorders Mica Hernandez CRNP [address] [place] [address] 09/13/2023 Hospital Encounter Endoscopy Milvia Arnold MD [address] [place] [address] 09/13/2023 Surgery Endoscopy Milvia Arnold MD [address] [place] [address] COLONOSCOPY FLEXIBLE PROXIMAL DIAGNOSTIC 11/10/2023 Office Visit Cardiology Vivienne Sunshine CRNP [address] [place] [address] 01/12/2024 Office Visit Family Medicine Miguel Suarez MD [address] [place] [address] Pending Results Name Type Priority Associated Diagnoses Date /Time BASIC METABOLIC PANEL Lab Routine Renal insufficiency 05/28/2023 11:48 AM EDT IRON SCREEN, INCLUDING TIBC Lab Routine Malaise and fatigue 05/28/2023 11:48 AM EDT FERRITIN Lab Routine Malaise and fatigue 05/28/2023 11:48 AM EDT TSH WITH FREE T4 IF INDICATED Lab Routine Malaise and fatigue 05/28/2023 11:48 AM EDT Scheduled Procedures Name Priority Associated Diagnoses Date/Ti [...] this encounter Medical Devices Implanted Type Area Furniture Assembler And Installer Device Identifier Shelf Expiration Date Model / Serial / Lot Stent Synergy Xd Mr [id number] - [id number] Implanted:Qty: 1 on 11/24/2022 by Johnny Schofield MD at [facility] [employer] [id number] 07/24/2023 [id number] / / [id number] documented as of this encounter Procedures Procedure Name Priority Date/Time Associated Diagnosis Comments DIFFERENTIAL, AUTOMATED Routine 05/28/2023 11:48 AM EDT Malaise and fatigue CBC Routine 05/28/2023 11:48 AM EDT Malaise and fatigue CBC Routine 05/28/2023 11:48 AM EDT Malaise and fatigue documented in this encounter Results * (ABNORMAL) DIFFERENTIAL, AUTOMATED (05/28/2023 11:48 AM EDT) WBC 3.80(L) 4.00 - 10.80 K/uL 05/28/2023 12:03 PM EDT [facility] [place] 57-10 Neutrophils % 69.2 40.0 - 75.0 % 05/28/2023 12:03 PM EDT [facility] [place] 57-10 Lymphocytes % 18.7 18.0 - 42.0 % 05/28/2023 12:03 PM EDT [facility] [place] 57-10 Monocytes % 7.6 1.0 - 11.0 % 05/28/2023 12:03 PM EDT [facility] [place] 57-10 Eosinophils % 3.7 0.0 - 6.0 % 05/28/2023 12:03 PM EDT [facility] [place] 57-10 Basophils % 0.8 0.0 - 2.0 % 05/28/2023 12:03 PM EDT [facility] [place] 57-10 Absolute Neutrophils 2.63 1.80 - 7.70 K/uL 05/28/2023 12:03 PM EDT [facility] [place] 57-10 Absolute Lymphocytes 0.71(L) 1.00 - 4.80 K/ul 05/28/2023 12:03 PM EDT [facility] [place] 57-10 Absolute Monocytes 0.29 0.00 - 1.10 K/uL 05/28/2023 12:03 PM EDT [facility] [place] 57-10 Absolute Eosinophils 0.14 0.00 - 0.70 K/uL 05/28/2023 12:03 PM EDT [facility] [place] 57-10 Absolute Basophils 0.03 0.00 - 0.20 K/uL 05/28/2023 12:03 PM EDT [facility] [place] 57-10 Blood Venous blood specimen / Unknown Venipuncture / Unknown 05/28/2023 11:48 AM EDT 05/28/2023 11:48 AM EDT Miguel Suarez MD LAB BLOOD ORDERA BLES [facility] [place] [address] [facility] [place] [address] * (ABNORMAL) CBC (05/28/2023 11:48 AM EDT) WBC 3.80(L) 4.00 - 10.80 K/uL 05/28/2023 12:03 PM EDT [facility] [place] 57-10 RBC 4.11 4.50 - 5.25 M/uL 05/28/2023 12:03 PM EDT [facility] [place] 5710 HGB 13.6(L) 14.0 - 16.8 g/dL 05/28/2023 12:03 PM EDT [facility] HCT 40.3 40.0 - 48.4 % 05/28/2023 12:03 PM EDT [facility] [place] 57-10 MCV 98.1 82.0 - 99.5 fL 05/28/2023 12:03 PM EDT [facility] MCH 33.1 27.0 - 34.0 pg 05/28/2023 12:03 PM EDT [facility] MCHC 33.7 32.0 - 36.0 g/dL 05/28/2023 12:03 PM EDT [facility] RDW 13.6 11.5 - 15.5 % 05/28/2023 12:03 PM EDT [facility] [place] 57-10 PLT 113(L) 140 - 400 K/uL 05/28/2023 12:03 PM EDT [facility] MPV 9.8 6.6 - 11.1 fL 05/28/2023 12:03 PM EDT [facility]10 Blood Venous blood specimen / Unknown Venipuncture / Unknown 05/28/2023 11:48 AM EDT 05/28/2023 11:48 AM EDT Miguel Suarez MD LAB BLOOD ORDERA BLES [facility] [place] 57-10 [address] [place] [address] documented in this encounter Visit Diagnoses Diagnosis Renal insufficiency Unspecified disorder of kidney and ureter Malaise and fatigue Other malaise and fatigue History of colon polyps Personal history of [...] the patient have Health Care Power of Dispatcher Maintenance? No Care Teams Mimeographer Relationship Specialty Start Date End Date Miguel Suarez MD [address] [place] [address] PCP - General Family Medicine 07/25/14 documented as of this encounter
--- OUTSIDE RECORDS SUMMARY | 2023-08-09 07:49 | External Medical Summary | Summary of Care ---
Author Name Unknown Organization [facility] Address [address] [address] Phone [phone] Care Team Providers Care Corporate Concierge Name Role Phone Miguel Maki MD Primary Care Provider + Reason for Visit * Reason Comments eRx-Medication Refill Encounter Details Date Type Department Care Team (Late st Contact Info) Description 06/01/2023 Refill Family Practice [facility] [address] [place] [address] Miguel Maki MD [address] [place] [address] Chronic nausea Allergies Active Allergy Reactions Criticality Noted Date Comments Atorvastatin 03/04/2018 Myalgia Fluticasone Furoate-Vilanterol 12/24/2021 Tightness in chest Rosuvastatin Calcium 03/04/2018 myalgia Iodinated Contrast Media Anaphylaxis,Itching High 04/26/2008 Contrast dye Other Allergy (See Comments) 04/24/2022 Product Containing 4-kjhysab-9-methylgl utaryl-coenzyme A Reductase Inhibitor (product) Simvastatin 03/04/2018 myalgia documented as of this encounter (statuses as of 06/01/2023) Medications Medication Sig Dispensed Refills Start Date End Date Status Cholecalciferol 5000 UNITS TABS Take 5,000 Units by mouth in the morning. 0 Active pyridOXINE (VITAMIN B-6) 100 MG Tablet Take 1 Tablet by mouth in the morning. 0 Active oxygen GAS 2 LPM bled through NC during hours of sleep 1 Each 0 0 Active Pantoprazole Sodium 40 MG Oral Tablet Delayed Release (Protonix) Take by mouth 1 Tablet in the morning AND 1 Tablet before bedtime. 180 Tablet 3 2 Active Clopidogrel Bisulfate 75 MG Oral Tablet (pLAVix)Indicatio ns:Atherosclerosi s of coronary artery of [place] heart with stable angina pectoris, unspecified vessel or lesion type (HCC),Cerebrovasc ular disease, arteriosclerotic, post-stroke TAKE 1 TABLET BY MOUTH EVERY DAY 90 Tablet 3 2 Active NF Formulas Testosterone Oral Capsule Take 1 Capsule by mouth every morning. 0 Active Allopurinol 300 MG Oral Tablet (Zyloprim)Indicat ions:Chronic gout without tophus, unspecified cause, unspecified site TAKE ONE-HALF TABLET BY MOUTH EVERY MORNING AND 1 TABLET IN THE EVENING 135 Tablet 3 3 Active Nitroglycerin 0.4 MG Sublingual Tablet Sublingual (Nitrostat)Indica tions:Atheroscler osis of [place] coronary artery of [place] heart with other form of angina pectoris (HCC),Exertional angina,Coronary artery disease involving coronary bypass graft of [place] heart with angina pectoris (HCC) PLACE 1 TAB UNDER THE TONGUE EVERY 5 MINUTES NEEDED FOR PAIN, CHEST. UP TO 3 DOSES IN 15 MINUTES 25 Tablet 1 3 Active Alirocumab 150 MG/ML Subcutaneous Solution Auto-injector INJECT 150 MG (1 PEN) UNDER THE SKIN EVERY 14 DAYS 6 mL 3 2 08/23/19 24 Active Sertraline HCl 100 MG Oral Tablet [...] 50 MCG/ACT Nasal Suspension (Flonase) Administer 1 [place] into nostril daily as needed. 0 Active Famotidine 20 MG Oral Tablet (Pepcid)Indicatio ns:Chronic nausea TAKE 1 TABLET BY MOUTH EVERY DAY IN THE MORNING AND BEFORE BEDTIME 180 Tablet 3 3 Active Famotidine 20 MG Oral Tablet (Pepcid)Indicatio ns:Chronic nausea Take by mouth 1 Tablet in the morning AND 1 Tablet before bedtime. 180 Tablet 3 2 06/01/20 23 Discontinued documented as of this encounter (statuses as of 06/01/2023) Active Problems Problem Noted Date Diagnosed Date [...] adult exam 04/12/2019 Overview: Daughter-Sherly. 03/31 inferior AL? Cath- no new lesions of CABG. 12/29 TTE [facility] similar. 11/28 new stent. TTE 45-49%. Mod wall motion abn. Mild AR. Mild dilated A root/ascend 10/28 6MWT ok. 10/27 UE EMG ok. 2017 colon 2mm polyp. Mak 5y 2013 colon CA Chronic major depressive disorder, recurrent epi sode 04/12/2019 Atherosclerosis of [place] co ronary artery of [place] heart with stable angina pectoris 07/06/2018 Lung nodules 05/28/2018 Splenomegaly 04/09/2018 History of colon cancer 04/08/2018 Statin intolerance 01/29/2018 Stable angina 02/01/2017 Coronary artery disease invo lving coronary bypass graft of [place] heart with angina pectoris 09/14/2016 S/P angioplasty [...] (small bowel obstruction) Overview: 04/23 admit. 11/21 [facility] improved w/NPO. Cont ETOH abuse documented as of this encounter (statuses as of 06/01/2023) Resolved Problems Problem Noted Date Diagnosed Date Resolved Date Acute ST elevation myocardia l infarction (STEMI) 11/21/2022 11/26/2022 COPD, group A, by GOLD 2017 classification 11/20/2019 11/14/2021 Overview: Per COPD GOLD Classification COPD, mild 07/09/2018 11/23/2019 Overview: 2018 PFTs mild obstruction. Breo started--feels breathing is better. Thrombocytopenia 07/06/2018 10/25/2019 Exertional angina 10/22/2016 01/01/2017 Coronary atherosclerosis of [place] coronary artery 12/26/2013 03/22/2019 Colon cancer 10/06/2013 08/18/2017 Cancer Staging:Clinical:Stage IIIA(T1, N1, M0) - Signed by Aiden Beauchamp MD on 11/24/2013 Pathologic: Unsigned Overview: 09/29/13 S/p partial sigmoid colectomy-Dr Steiner. Pathologic stage pT1N1a. (metastatic adenocarcinoma 17 nodes, invading submucosa) Pre-op testing 09/13/2013 02/25/2017 Routine general medical exam ination at a health care facility 01/25/2013 05/30/2018 Overview: 03/26 CT chest [facility] 6mm nodule. Mak 6mo ordered. 11/24 stopped crestor-myalgias. 08/25 CONSIDER EGD? 10/24 colon-2mm polyp PATH tubular adenoma. Mak 5y Preconetmplative to cut back ETOH. Stable low plat/wbc. 05/24 periph smear done ok. Colonoscopy 09/[address] Sebastian-for Synvisc Needs HARRIET fall 08/22 25mm colon polyp--Path---cancer--resected. 01/19 prostate discussed-declined 4/23/13 RUQ US @ [facility]--possible fatty infiltrate 11/11/12 DEXA @[facility]-- T -1.0 hip 07/20 Rib Xray-Right 7-9th rib frx 04/01/10CT neck @[facility]-mild osteophytes 2008 colonoscopy-WNL. 08/14/03. Colonoscopy-The polyp at 45 cm showed moderate atypia. [facility] current use of ant icoagulant therapy 12/24/2003 11/21/2012 Overview: ICD-10 update of inactive term BENIGN NEOPLASM LG BOWEL 08/31/2003 Calculus of kidney 08/18/2001 8 Coronary atherosclerosis Overview: S/p CABG x5 06/24/1993 VICTORIA-D1-LAD TERRY-RCA SVG-OM1 SVG-OM2 PURE HYPERCHOLESTEROLEM 07/09 Overview: Per Lipid Taxonomy. TIA (transient ischemic attack) 02/25/2017 documented as of this encounter (statuses as of 06/01/2023) Immunizations Name Administration Dates Next Due COVID-19 [...] encounter Miscellaneous Notes * Telephone Encounter - Moises Mccabe RPh - 06/01/2023 1:38 PM EDTSigned Prescriptions: Disp Refills Famotidine 20 MG Oral Tablet (Pepcid) 180 Ta*3 Sig: TAKE 1 TABLET BY MOUTH EVERY DAY IN THE MORNING AND BEFORE BEDTIMEAuthorizing Provider: MIGUEL MAKI User: MOISES MCCABE documented in this encounter Plan of Treatment Upcoming Encounters Date Type Department Care Team (Latest Contact Info) Description 06/07/2023 9:00 AM EDT Imaging Vascular Lab, [facility] 2nd Floor, [address] [place] [address] 07/27/2023 10:30 AM EST Office Visit [facility] [address] [place] [phone] Mica Hernandez CRNP [address] [place] [address] 09/13/2023 9:00 AM EST Hospital Encounter ENDO [facility], Endoscopy Room [facility] [address] [place] [phone] Milvia Arnold MD [address] [place] [address] 09/13/2023 9:00 AM EST - 09/13/2023 9:30 AM EST Surgery ENDO [facility], Endoscopy Room [facility] [address] [place] [phone] Milvia Arnold MD [address] [place] [address] COLONOSCOPY FLEXIBLE PROXIMAL DIAGNOSTIC 11/10/2023 11:00 AM EDT Office Visit Cardiology, [facility] [address] [place] [address] Vivienne Sunshine CRNP [address] [place] [address] 01/12/2024 12:00 PM EDT Office Visit Family Practice [facility] [address] [place] [address] Miguel Maki MD [address] [place] [address] Scheduled Procedures Name Priority Associated Diagnoses Date/Ti [...] this encounter Medical Devices Implanted Type Area Paper Sorter Device Identifier Shelf Expiration Date Model / Serial / Lot Stent Synergy Xd Mr [id number] - [id number] Implanted:Qty: 1 on 11/24/2022 by Johnny Schofield MD at [facility] [employer] [id number] 07/24/2023 [id number] 220 / / [id number] documented as of this encounter Visit Diagnoses Diagnosis Chronic nausea Nausea alone History of colon polyps Personal history of [...] the patient have Health Care Power of Casino Cashier? No Care Teams Corporate Concierge Relationship Specialty Start Date End Date Miguel Maki MD [address] [facility] [place] [address] PCP - General Family Medicine 07/25/14 documented as of this encounter
--- OUTSIDE RECORDS SUMMARY | 2023-08-09 07:49 | External Medical Summary ---
Author Name Unknown Address Unknown Organization K01:[facility] [place] [address] [facility] [address] Laboratory Report Ordering Provider Test Date Status GLYNN KINNEY 05/28/2023 11:48:25 Final Observation Date Value Abnormality Reference (Units ) Status TSH 05/28/2023 11:48:25 1.74 0.27-4.20 (uIU/mL) Final Performing Location [facility] [place] [address] [facility] [address]
[2023-08-09] MEDS ORDERED: ONDANSETRON INJ 2 MG/ML 2 ML VIAL ONE (07:50)
--- OUTSIDE RECORDS SUMMARY | 2023-08-09 07:50 | External Medical Summary | Summary of Care ---
Author Name Unknown Organization [facility] Address [address] [place] [address] Phone [phone] Care Team Providers Care Planer Mill Grader Name Role Phone Miguel Suarez MD Primary Care Provider + Reason for Referral * Evaluate & Treat - Unlimited Visits (Within 10 days (routine)) - Authorized Specialty Diagnoses / Procedures Referred By Kristin t Referred To Contact Cardiovascular Medicine / Cardiology Diagnoses Heart failure, unspecified (HCC) Ghazala Alfonso PA-C [address] [place] [address] Referral ID Status Reason Start Date Expiration Date Visits Requested Visits Authorized [id number] Authorized Specialty Services Required 04/27/2023 10/24/[phone] Question Answer Referral Priority Within 10 days (routine) To which of the following clinics are you referring your patient? General Cardiology Clinic Comments Heart Failure Encounter Details Date Type Department Care Team Description 04/27/2023 Orders Only Access Center, [address] *DO NOT REMOVE THIS DEPARTMENT* [place] [address] Requisition, External Cardiology [address] [place] [address] Heart failure, unspecified (HCC)* Allergies Active Allergy Reactions Severity Noted Date Comments Atorvastatin 03/04/2018 Myalgia Fluticasone Furoate-Vilanterol 12/24/2021 Tightness in chest Rosuvastatin Calcium 03/04/2018 myalgia Iodinated Contrast Media Anaphylaxis,Itching High Contrast dye Other Allergy (See Comments) 04/24/2022 Product Containing 3-pkrulnm-1-methylglu taryl-coenzyme A Reductase Inhibitor (product) Simvastatin 03/04/2018 myalgia documented as of this encounter (statuses as of 04/27/2023) Medications Medication Sig Dispensed Refills Start Date [...] Tablet (pLAVix)Indication s:Atherosclerosis of coronary artery of [place] heart with stable angina pectoris, unspecified vessel [...] Sublingual Tablet Sublingual (Nitrostat)Indicat ions:Atheroscleros is of [place] coronary artery of [place] heart with other form of angina pectoris (HCC),Exertional angina (HCC),Coronary artery disease involving coronary bypass graft of [place] heart with angina pectoris (HCC) PLACE 1 [...] 50 MCG/ACT Nasal Suspension (Flonase) Administer 1 [place] into nostril daily as needed. 0 Active documented as of this encounter (statuses as of 04/27/2023) Active Problems Problem Noted Date Chronic combined [...] 10/28 6MWT ok. 10/27 UE EMG ok. 2018 colon 2mm polyp. 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 11/21 [facility] improved w/NPO. Cont ETOH abuse documented as of this encounter (statuses as of 04/27/2023) Resolved Problems Problem Noted Date Resolved Date Acute ST elevation myocardial infarction (STEMI) 11/21/2022 11/26/2022 COPD, group A, by GOLD 2017 classification 11/1911/14/2021 Overview: Per COPD GOLD Classification COPD, mild 07/09/2018 11/23/2019 Overview: 2018 PFTs mild obstruction. Breo started--feels breathing is better. Thrombocytopenia 07/06/2018 10/25/2019 Exertional angina 10/22/2016 01/01/2017 Coronary atherosclerosis of [place] coronary moody ry 12/26/2013 03/22/2019 Colon cancer 10/06/2013 08/18/2017 Cancer Staging:Clinical:Stage IIIA(T1, N1, M0) - Signed by Aiden Beauchamp MD on 11/24/2013 Pathologic: Unsigned Overview: 09/29/13 S/p partial sigmoid colectomy-Dr Steiner. Pathologic stage pT1N1a. (metastatic adenocarcinoma 117 nodes, invading submucosa) Pre-op testing 09/13/2013 02/25/2017 Routine general medical exam ination at a health care facility 01/25/2013 05/30/2018 Overview: 03/26 CT chest [facility] 6mm nodule. Mak 6mo ordered. 11/24 stopped crestor-myalgias. 08/25 CONSIDER EGD? 10/24 colon-2mm polyp PATH tubular adenoma. Mak 5y Preconetmplative to cut back ETOH. Stable low plat/wbc. 05/24 periph smear done ok. Colonoscopy 09/[address]NL[address] Mak [address] Dr Sebastian-for Synvisc Needs HARRIET fall 08/22 25mm colon polyp--Path---cancer--resected. 01/19 prostate discussed-declined 11/29/12 RUQ US @ [facility]--possible fatty infiltrate 11/11/12 DEXA @[facility]-- T -1.0 hip 07/20 Rib Xray-Right 7-9th rib frx 04/01/10CT neck @[facility]-mild osteophytes 2007 colonoscopy-WNL. 08/14/03. Colonoscopy-The polyp at 45 cm showed moderate atypia. [facility] current use of anticoagulant therapy 0 12/24/2003 11/21/2012 Overview: ICD-10 update of inactive term BENIGN NEOPLASM LG BOWEL 08/31/2003 019 Calculus of kidney 08/18/2001 05/30/2018 Coronary atherosclerosis 019 Overview: S/p CABG x5 06/24/1993 VICTORIA-D1-LAD TERRY-RCA SVG-OM1 SVG-OM2 PURE HYPERCHOLESTEROLEM 07/24/20 09 Overview: Per Lipid Taxonomy. TIA (transient ischemic attack) 02/25/2017 documented as of this encounter (statuses as of 04/27/2023) Immunizations Name Administration Dates Next Due COVID-19 [...] Encounters Date Type Specialty Care Team Description 05/06/2023 Office Visit Cardiology Vivienne Sunshine CRNP [address] [place] [phone] 05/25/2023 PulmDiagnostic Pulmonary Function [place] [address] [place] [address] 05/28/2023 Office Visit Family Medicine Miguel Suarez MD [address] [place] [address] 07/27/2023 Office Visit Sleep Disorders Mica Hernandez CRNP [address] [place] [address] 09/13/2023 Hospital Encounter Endoscopy Mivlia Arnold MD [address] [place] [address] 09/13/2023 Surgery Endoscopy Milvia Arnold MD [address] [place] [address] COLONOSCOPY FLEXIBLE PROXIMAL DIAGNOSTIC Scheduled Procedures Name Priority Associated Diagnoses Date/Ti me COLONOSCOPY FLEXIBLE PROXIMAL DIAGNOSTIC Recall History of colon polyps History of colon cancer 09/13/2023 9:00 AM EST Scheduled Referrals Name Type Priority Associated Diagnoses Orde r Schedule CARDIOLOGY REFERRAL OP Referral Within 10 days (routine) Heart failure, unspecified (HCC) Ordered: 04/27/2023 Health Maintenance Due Date Last Done Comments [...] this encounter Medical Devices Implanted Type Area Dairy Nutrition Specialist Device Identifier Shelf Expiration Date Model / Serial / Lot Stent Synergy Xd Mr [id number] - [id number] Implanted:Qty: 1 on 11/24/2022 by Johnny Schofield MD at [facility] Super [id number] 07/24/2023 [id number] 220 / / [id number] documented as of this encounter Visit Diagnoses Diagnosis Heart failure, unspecified (HCC)- Primary Heart failure, unspecified History of colon polyps Personal [...] the patient have Health Care Power of Air Conditioning Mechanic? No Care Teams Planer Mill Grader Relationship Specialty Start Date End Date Miguel Suarez MD [address] [place] [address] PCP - General Family Medicine 07/25/14 documented as of this encounter
--- OUTSIDE RECORDS SUMMARY | 2023-08-09 07:50 | External Medical Summary | Summary of Care ---
Author Name Unknown Organization [facility] Address [address] [place] [address] Phone [phone] Care Team Providers Care Cuprous Chloride Operator Name Role Phone Miguel Suarez MD Primary Care Provider + Encounter Details Date Type Department Care Team Description 03/30/2023 Orders Only Outcomes Research Department [address], [place] [id number] Jadyn Lott CHRA MyCode Research Other*[id number] Allergies Active Allergy Reactions Severity Noted Date Comments Atorvastatin 03/04/2018 Myalgia Fluticasone Furoate-Vilanterol 12/24/2021 Tightness in chest Rosuvastatin Calcium 03/04/2018 myalgia Iodinated Contrast Media Anaphylaxis,Itching High Contrast dye Other Allergy (See Comments) 04/24/2022 Product Containing 3-zfckevy-5-methylglu taryl-coenzyme A Reductase Inhibitor (product) Simvastatin 03/04/2018 myalgia documented as of this encounter (statuses as of 03/30/2023) Medications Medication Sig Dispensed Refills Start Date [...] Tablet (pLAVix)Indication s:Atherosclerosis of coronary artery of [place] heart with stable angina pectoris, unspecified vessel [...] Sublingual Tablet Sublingual (Nitrostat)Indicat ions:Atheroscleros is of [place] coronary artery of [place] heart with other form of angina pectoris (HCC),Exertional angina (HCC),Coronary artery disease involving coronary bypass graft of [place] heart with angina pectoris (HCC) PLACE 1 [...] 50 MCG/ACT Nasal Suspension (Flonase) Administer 1 [place] into nostril daily as needed. 0 Active Hospital, Clinic, or Other Facility Administered Medication Ordered Dose Route Frequency Start Date End Date Status Albuterol Sulfate (Proventil) (2.5 MG/3ML) 0.083% inhalation solution 2.5 mgIndications:Chronic hypoxemic respiratory failure (HCC) 2.5 mg NEBULIZER Q4H PRN 06/18/2021 Active documented as of this encounter (statuses as of 03/30/2023) Active Problems Problem Noted Date Chronic combined [...] 12/27/2020 Well adult exam 04/12/2019 Overview: Daughter-Sherly. 12/29 TTE [facility] similar. 11/28 new stent. TTE 45-49%. Mod wall motion abn. Mild AR. Mild dilated A root/ascend 10/28 6MWT ok. 10/27 UE EMG ok. 2017 colon 2mm polyp. Mak 5y 2014 colon CA Chronic major depressive disorder, recur rent episode 04/12/2019 Atherosclerosis of [place] co ronary artery of [place] heart with stable angina pectoris 07/06/2018 Lung nodules 05/28/2018 Splenomegaly 04/09/2018 History of colon cancer 04/08/2018 Statin intolerance 01/29/2018 Stable angina 02/01/2017 Coronary artery disease invo lving coronary bypass graft of [place] heart with angina pectoris 09/14/2016 S/P angioplasty [...] (small bowel obstruction) Overview: 04/23 admit. 11/21 [facility] improved w/NPO. Cont ETOH abuse documented as of this encounter (statuses as of 03/30/2023) Resolved Problems Problem Noted Date Resolved Date Acute ST elevation myocardial infarction (STEMI) 11/21/2022 11/26/2022 COPD, group A, by GOLD 2017 classification 11/1911/14/2021 Overview: Per COPD GOLD Classification COPD, mild 07/09/2018 11/23/2019 Overview: 2018 PFTs mild obstruction. Breo started--feels breathing is better. Thrombocytopenia 07/06/2018 10/25/2019 Exertional angina 10/22/2016 01/01/2017 Coronary atherosclerosis of [place] coronary moody ry 12/26/2013 03/22/2019 Colon cancer 10/06/2013 08/18/2017 Cancer Staging:Clinical:Stage IIIA(T1, N1, M0) - Signed by Aiden Beauchamp MD on 11/24/2013 Pathologic: Unsigned Overview: 09/29/13 S/p partial sigmoid colectomy-Dr Steiner. Pathologic stage pT1N1a. (metastatic adenocarcinoma 08/25 nodes, invading submucosa) Pre-op testing 09/13/2013 02/25/2017 Routine general medical exam ination at a health care facility 01/25/2013 05/30/2018 Overview: 03/26 CT chest [facility] 6mm nodule. Mak 6mo ordered. 11/24 stopped crestor-myalgias. 08/25 CONSIDER EGD? 10/24 colon-2mm polyp PATH tubular adenoma. Mak 5y Preconetmplative to cut back ETOH. Stable low plat/wbc. 05/24 periph smear done ok. Colonoscopy 09/[address] Sebastian-for Synvisc Needs HARRIET fall 08/22 25mm colon polyp--Path---cancer--resected. 01/19 prostate discussed-declined 11/29/12 RUQ US @ [place]--possible fatty infiltrate 11/11/12 [place] [place]-- T -1.0 hip 07/20 Rib Xray-Right 7-9th rib frx 04/01/10CT [place] [facility]-mild osteophytes 2008 colonoscopy-WNL. 08/14/03. Colonoscopy-The polyp at 45 cm showed moderate atypia. intermediate accountant current use of anticoagulant therapy 0 12/24/2003 11/21/2012 Overview: ICD-10 update of inactive term BENIGN NEOPLASM LG BOWEL 08/31/2003 019 Calculus of kidney 08/18/2001 05/30/2018 Coronary atherosclerosis 019 Overview: S/p CABG x5 06/24/1993 VICTORIA-D1-LAD TERRY-RCA SVG-OM1 SVG-OM2 PURE HYPERCHOLESTEROLEM 07/24/20 09 Overview: Per Lipid Taxonomy. TIA (transient ischemic attack) 02/25/2017 documented as of this encounter (statuses as of 03/30/2023) Immunizations Name Administration Dates Next Due COVID-19 mRNA, LNP-s, No Pre serve, 2-Dose Series (Moderna) 10/16/2020,09/18/2020 COVID-19 mRNA, LNP-s, No Pre serve, 2-Dose Series (Pfizer) 07/21/2021,10/16/2020,09/18/2020 Covid-19 Mrna, Lnp-s, No Pre serve, Booster (Moderna) 07/21/2021 Pneumococcal Conjugate Vacc, 13 Valent [...] got money to buy more. Never true 10/25/2019 Within the past 12 months, t he food you bought just didn't last and you didn't have money to get more. Never true 10/25/2019 Sex Assigned at Date Recorded Not on file Job Start Date Occupation Industry Not on [...] Encounters Date Type Specialty Care Team Description 04/23/2023 Office Visit Family Medicine Tyler Shea DO [address] [place] [address] 04/27/2023 Hospital Encounter Endoscopy Milvia Arnold MD [address] [place] [address] 04/27/2023 Surgery Endoscopy Milvia Arnold MD [address] [place] [address] COLONOSCOPY FLEXIBLE PROXIMAL DIAGNOSTIC 05/19/2023 Office Visit Cardiology Vivienne Sunshine CRNP [address] [place] [address] 05/25/2023 PulmDiagnostic Pulmonary Function [facility], Pft [address] [place] [address] 05/28/2023 Office Visit Family Medicine Miguel Suarez MD [address] [place] [address] 07/27/2023 Office Visit Sleep Disorders Mica Hernandez CRNP [address] [place] [address] Scheduled Orders Name Type Priority Associated Diagnoses Orde r Schedule MYCODE SUBSEQUENT ADULT Lab Routine MyCode Research Other*[id number] Every 6 Months for 2 Occurrences starting 03/30/2023 until 04/18/2024 Scheduled Procedures Name Priority Associated Diagnoses Date/Ti me COLONOSCOPY FLEXIBLE PROXIMAL DIAGNOSTIC Recall History of colon polyps History of colon cancer 04/27/2023 10:15 AM EDT Health Maintenance Due Date Last Done Comments AAA Screening 2015 Depression Screening, Annual for Pts 12 and Over 10/24/2020 10/25/2019, 03/23/2018 (Declined) COVID-19 Vaccine (6 - Moderna series) 09/15/2021 07/21/2021, 07/21/2021, 10/16/2020, Additional history exists COLONOSCOPY-EVERY 5 YRS AGES 18-100 10/20/2022 10/20/2017, 10/20/2017, 10/01/2014, Additional history exists Influenza Vaccine (FLU shot) (#1) 2023 06/29/2022, 06/09/2021, 05/16/2021, Additional history exists HbA1c 11/22/2023 11/21/2022, 10/07, 05/20/2021, Additional history exists GFR 12/29/2023 12/28/2022, 11/08, 11/26/2022, Additional history exists Albumin/Creatinine Ratio 01/21/2026 023, [...] this encounter Medical Devices Implanted Type Area Lighting Engineering Technician Device Identifier Shelf Expiration Date Model / Serial / Lot Stent Synergy Xd Mr [id number] - [id number] Implanted:Qty: 1 on 11/24/2022 by Johnny Schofield MD at [facility] [place] [employer] [id number] 07/24/2023 [id number] 220 / / [id number] documented as of this encounter Visit Diagnoses Diagnosis MyCode Research Other*[id number] History of colon polyps Personal history of [...] the patient have Health Care Power of Shampoo Assistant? No Care Teams Cuprous Chloride Operator Relationship Specialty Start Date End Date Miguel Suarez MD [address] [place] [address] PCP - General Family Medicine 07/25/14 documented as of this encounter
--- OUTSIDE RECORDS SUMMARY | 2023-08-09 07:50 | External Medical Summary | Summary of Care ---
Author Name Unknown Organization [facility] Address [address] [facility] [place] [address] Phone [phone] Care Team Providers Care Reserve Operator Name Role Phone Miguel Suarez MD Primary Care Provider + Encounter Details Date Type Department Care Team Description 04/02/2023 Result Scan Unspecified Department <No scans attached> Allergies Active Allergy Reactions Severity Noted Date Comments Atorvastatin 03/04/2018 Myalgia Fluticasone Furoate-Vilanterol 12/24/2021 Tightness in chest Rosuvastatin Calcium 03/04/2018 myalgia Iodinated Contrast Media Anaphylaxis,Itching High Contrast dye Other Allergy (See Comments) 04/24/2022 Product Containing 2-bqcusjo-8-methylglu taryl-coenzyme A Reductase Inhibitor (product) Simvastatin 03/04/2018 myalgia documented as of this encounter (statuses as of 04/05/2023) Medications Medication Sig Dispensed Refills Start Date [...] Tablet (pLAVix)Indication s:Atherosclerosis of coronary artery of [place] heart with stable angina pectoris, unspecified vessel [...] Sublingual Tablet Sublingual (Nitrostat)Indicat ions:Atheroscleros is of [place] coronary artery of [place] heart with other form of angina pectoris (HCC),Exertional angina (HCC),Coronary artery disease involving coronary bypass graft of [place] heart with angina pectoris (HCC) PLACE 1 [...] 50 MCG/ACT Nasal Suspension (Flonase) Administer 1 [place] into nostril daily as needed. 0 Active Hospital, Clinic, or Other Facility Administered Medication Ordered Dose Route Frequency Start Date End Date Status Albuterol Sulfate (Proventil) (2.5 MG/3ML) 0.083% inhalation solution 2.5 mgIndications:Chronic hypoxemic respiratory failure (HCC) 2.5 mg NEBULIZER Q4H PRN 06/18/2021 Active documented as of this encounter (statuses as of 04/05/2023) Active Problems Problem Noted Date Chronic combined [...] adult exam 04/12/2019 Overview: Daughter-Sherly. 12/29 TTE [facility] similar. 11/28 new stent. TTE 45-49%. Mod wall motion abn. Mild AR. Mild dilated A root/ascend 10/28 6MWT ok. 10/27 UE EMG ok. 2017 colon 2mm polyp. Mak 5y 2013 colon CA Chronic major depressive disorder, recur rent episode 04/12/2019 Atherosclerosis of [place] co ronary artery of [place] heart with stable angina pectoris 07/06/2018 Lung nodules 05/28/2018 Splenomegaly 04/09/2018 History of colon cancer 04/08/2018 Statin intolerance 01/29/2018 Stable angina 02/01/2017 Coronary artery disease invo lving coronary bypass graft of [place] heart with angina pectoris 09/14/2016 S/P angioplasty [...] (small bowel obstruction) Overview: 04/23 admit. 11/21 [facility] improved w/NPO. Cont ETOH abuse documented as of this encounter (statuses as of 04/05/2023) Resolved Problems Problem Noted Date Resolved Date Acute ST elevation myocardial infarction (STEMI) 11/21/2022 11/26/2022 COPD, group A, by GOLD 2017 classification 11/1911/14/2021 Overview: Per COPD GOLD Classification COPD, mild 07/09/2018 11/23/2019 Overview: 2018 PFTs mild obstruction. Breo started--feels breathing is better. Thrombocytopenia 07/06/2018 10/25/2019 Exertional angina 10/22/2016 01/01/2017 Coronary atherosclerosis of [place] coronary moody ry 12/26/2013 03/22/2019 Colon cancer 10/06/2013 08/18/2017 Cancer Staging:Clinical:Stage IIIA(T1, N1, M0) - Signed by Aiden Beauchamp MD on 11/24/2013 Pathologic: Unsigned Overview: 09/29/13 S/p partial sigmoid colectomy-Dr Steiner. Pathologic stage pT1N1a. (metastatic adenocarcinoma 08/25 nodes, invading submucosa) Pre-op testing 09/13/2013 02/25/2017 Routine general medical exam ination at a health care facility 01/25/2013 05/30/2018 Overview: 03/26 CT chest [facility] 6mm nodule. Mak 6mo ordered. 11/24 stopped crestor-myalgias. 08/25 CONSIDER EGD? 10/24 colon-2mm polyp PATH tubular adenoma. Mak 5y Preconetmplative to cut back ETOH. Stable low plat/wbc. 05/24 periph smear done ok. Colonoscopy 09/[address]NL[address] Mak [address] Dr Sebastian-for Synvisc Needs HARRIET fall 08/22 25mm colon polyp--Path---cancer--resected. 01/19 prostate discussed-declined 11/29/12 RUQ US @ [place]--possible fatty infiltrate 11/11/12 [facility]-- T -1.0 hip 07/20 Rib Xray-Right 7-9th rib frx 04/01/10CT [facility] @[facility]-mild osteophytes 2007 colonoscopy-WNL. 08/14/03. Colonoscopy-The polyp at 45 cm showed moderate atypia. termination clerk current use of anticoagulant therapy 0 12/24/2003 11/21/2012 Overview: ICD-10 update of inactive term BENIGN NEOPLASM LG BOWEL 08/31/2003 019 Calculus of kidney 08/18/2001 05/30/2018 Coronary atherosclerosis 019 Overview: S/p CABG x5 06/24/1993 VICTORIA-D1-LAD TERRY-RCA SVG-OM1 SVG-OM2 PURE HYPERCHOLESTEROLEM 07/24/20 09 Overview: Per Lipid Taxonomy. TIA (transient ischemic attack) 02/25/2017 documented as of this encounter (statuses as of 04/05/2023) Immunizations Name Administration Dates Next Due COVID-19 [...] DO [address] [place] [address] 04/27/2023 Hospital Encounter Endoscopy Milvia Arnold MD [address] [place] [address] 04/27/2023 Surgery Endoscopy Milvia Arnold MD [address] [place] [address] COLONOSCOPY FLEXIBLE PROXIMAL DIAGNOSTIC 05/19/2023 Office Visit Cardiology Vivienne Sunshine CRNP [address] [place] [address] 05/25/2023 PulmDiagnostic Pulmonary Function [facility], Pft [address] [place] [address] 05/28/2023 Office Visit Family Medicine Miguel Suarez MD [address] [place] [address] 07/27/2023 Office Visit Sleep Disorders Mica Hernandez CRNP [address] [place] [address] Scheduled Procedures Name Priority Associated Diagnoses Date/Ti [...] this encounter Medical Devices Implanted Type Area Watch Mechanic Device Identifier Shelf Expiration Date Model / Serial / Lot Stent Synergy Xd Mr [id number] - [id number] Implanted:Qty: 1 on 11/24/2022 by Johnny Schofield MD [place] [facility] [employer] [id number] 07/24/2023 [id number] 220 / / [id number] documented as of this encounter Procedures Procedure Name Priority Date/Time Associated Diagnosis Comments CARDIAC CATH SCANNED RESULT 04/02/2023 documented in this encounter Results * CARDIAC CATH SCANNED RESULT (04/02/2023) 04/02/2023 No Physician Data Unknown CARD CATH documented in this encounter Advance Directives Latest [...] the patient have Health Care Power of Construction Carpenters Helper? No Care Teams Reserve Operator Relationship Specialty Start Date End Date Miguel Suarez MD [address] [place] [address] PCP - General Family Medicine 07/25/14 documented as of this encounter
--- OUTSIDE RECORDS SUMMARY | 2023-08-09 07:50 | External Medical Summary | Summary of Care ---
Author Name Unknown Organization [facility] Address [address] [place] [address] Phone [phone] Care Team Providers Care Spectrographic Analyst Name Role Phone Miguel Suarez MD Primary Care Provider + Encounter Details Date Type Department Care Team Description 02/19/2023 Specialty Pharmacy [facility], [address] [address] Medication, Mtm Specialty, [address] [address] Allergies Active Allergy Reactions Severity Noted Date Comments Atorvastatin 03/04/2018 Myalgia Fluticasone Furoate-Vilanterol 12/24/2021 Tightness in chest Rosuvastatin Calcium 03/04/2018 myalgia Iodinated Contrast Media Anaphylaxis,Itching High Contrast dye Other Allergy (See Comments) 04/24/2022 Product Containing 2-brergug-6-methylglu taryl-coenzyme A Reductase Inhibitor (product) Simvastatin 03/04/2018 myalgia documented as of this encounter (statuses as of 02/19/2023) Medications Medication Sig Dispensed Refills Start Date [...] Tablet (pLAVix)Indication s:Atherosclerosis of coronary artery of [place] heart with stable angina pectoris, unspecified vessel [...] Sublingual Tablet Sublingual (Nitrostat)Indicat ions:Atheroscleros is of [place] coronary artery of [place] heart with other form of angina pectoris (HCC),Exertional angina (HCC),Coronary artery disease involving 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 0 Active Hospital, Clinic, or Other Facility Administered Medication Ordered Dose Route Frequency Start Date End Date Status Albuterol Sulfate (Proventil) (2.5 MG/3ML) 0.083% inhalation solution 2.5 mgIndications:Chronic hypoxemic respiratory failure (HCC) 2.5 mg NEBULIZER Q4H PRN 06/18/2021 Active documented as of this encounter (statuses as of 02/19/2023) Active Problems Problem Noted Date Chronic combined [...] adult exam 04/12/2019 Overview: Daughter-Sherly. 12/29 TTE [facility] similar. 11/28 new stent. TTE 45-49%. Mod wall motion abn. Mild AR. Mild dilated A root/ascend 10/28 6MWT ok. 10/27 UE EMG ok. 2017 colon 2mm polyp. Mak 5y 2014 colon CA Chronic major depressive disorder, recur rent episode 04/12/2019 Atherosclerosis of [place] co ronary artery of [place] heart with stable angina pectoris 07/06/2018 Lung nodules 05/28/2018 Splenomegaly 04/09/2018 History of colon cancer 04/08/2018 Statin intolerance 01/29/2018 Stable angina 02/01/2017 Coronary artery disease invo lving coronary bypass graft of [place] heart with angina pectoris 09/14/2016 S/P angioplasty [...] (small bowel obstruction) Overview: 04/23 admit. 11/21 [facility] improved w/NPO. Cont ETOH abuse documented as of this encounter (statuses as of 02/19/2023) Resolved Problems Problem Noted Date Resolved Date Acute ST elevation myocardial infarction (STEMI) 11/21/2022 11/26/2022 COPD, group A, by GOLD 2017 classification 11/1911/14/2021 Overview: Per COPD GOLD Classification COPD, mild 07/09/2018 11/23/2019 Overview: 2018 PFTs mild obstruction. Breo started--feels breathing is better. Thrombocytopenia 07/06/2018 10/25/2019 Exertional angina 10/22/2016 01/01/2017 Coronary atherosclerosis of [place] coronary moody ry 12/26/2013 03/22/2019 Colon cancer 10/06/2013 08/18/2017 Cancer Staging:Clinical:Stage IIIA(T1, N1, M0) - Signed by Aiden Beauchamp MD on 11/24/2013 Pathologic: Unsigned Overview: 09/29/13 S/p partial sigmoid colectomy-Dr Steiner. Pathologic stage pT1N1a. (metastatic adenocarcinoma 08/25 nodes, invading submucosa) Pre-op testing 09/13/2013 02/25/2017 Routine general medical exam ination at a health care facility 01/25/2013 05/30/2018 Overview: 03/26 CT chest [facility] 6mm nodule. Mak 6mo ordered. 11/24 stopped crestor-myalgias. 08/25 CONSIDER EGD? 10/24 colon-2mm polyp PATH tubular adenoma. Mak 5y Preconetmplative to cut back ETOH. Stable low plat/wbc. 05/24 periph smear done ok. Colonoscopy 09/[address]NL[address] Mak [address] Dr Sebastian-for Synvisc Needs HARRIET fall 08/22 25mm colon polyp--Path---cancer--resected. 01/19 prostate discussed-declined 11/29/12 RUQ US @ [place]--possible fatty infiltrate 11/11/12 [place]-- T -1.0 hip 07/20 Rib Xray-Right 7-9th rib frx 04/[facility]/10[facility] [place] [facility]-m[facility] [place]oph[facility] 2007 colonoscopy-WNL. 08/14/03. Colonoscopy-The polyp at 45 cm showed moderate atypia. 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 TIA (transient ischemic attack) 02/25/2017 documented as of this encounter (statuses as of 02/19/2023) Immunizations Name Administration Dates Next Due COVID-19 [...] 06/29/2022,05/16/2021 Seasonal Influenza, Quadriva lent, No Preserve, 6 Mons & Above, IM 05/11/2020,07/07/2017,06/22/2014,04/19,04/20/2012,04/20/2011 Seasonal Influenza, Quadriva lent, No Preserve, IM [...] as of this encounter Progress Notes * MARIUM Braun - 02/19/2023 4:51 PM EDT Prescribed medication: Medication: praluent Shipment date: 02/23 Delivery method: Specialty Mail Location Medication Delivered too? Prescription Address: [address] [place] [address] Dr [place] [address] MARIUM Braun [facility] 02/19/2023,4:51 PM documented in this encounter Plan of Treatment Upcoming Encounters Date Type Specialty Care Team Description 03/16/2023 Pharmacy Cardiology [place] [address] [facility] [place] [address] 03/22/2023 Office Visit Cardiology Genaro Kaiser DO [address] [place] [address] 04/23/2023 Office Visit Family Medicine Tyler Shea DO [address] [place] [address] 04/27/2023 Hospital Encounter Endoscopy Milvia Arnold MD [address] [place] [address] 04/27/2023 Surgery Endoscopy Milvia Arnold MD [address] [place] [address] COLONOSCOPY FLEXIBLE PROXIMAL DIAGNOSTIC 05/25/2023 PulmDiagnostic Pulmonary Function [facility], Pft [address] [place] [address] 05/28/2023 Office Visit Family Medicine Miguel Suarez MD [address] [place] [address] 07/27/2023 Office Visit Sleep Disorders Mica Hernandez CRNP [address] [place] [address] Scheduled Procedures Name Priority Associated Diagnoses Date/Ti me COLONOSCOPY FLEXIBLE PROXIMAL DIAGNOSTIC Recall History of colon polyps History of colon cancer 04/27/2023 10:15 AM EDT Health Maintenance Due Date Last Done Comments Depression Screening, Annual for Pts 12 and [...] this encounter Medical Devices Implanted Type Area Environmental Science Professor Device Identifier Shelf Expiration Date Model / Serial / Lot Stent Synergy Xd Mr [id number] - [id number] Implanted:Qty: 1 on 11/24/2022 by [place] Schofield [place] [facility] [place] [employer] [id number] 07/24/2023 [id number] / / [id number] documented as of this encounter Advance Directives [...] the patient have Health Care Power of Asian Art Curator? No Care Teams Spectrographic Analyst Relationship Specialty Start Date End Date Miguel Suarez MD [address] [place] [address] PCP - General Family Medicine 07/25/14 documented as of this encounter
--- OUTSIDE RECORDS SUMMARY | 2023-08-09 07:50 | External Medical Summary | Summary of Care ---
Author Name Unknown Organization [facility] Address [address] [address] Phone [phone] Care Team Providers Care Structural Layout Worker Name Role Phone Miguel Suarez MD Primary Care Provider + Reason for Visit * Reason Comments Dosage Adjustment Via Phone (anticoag Cl inic) Hyperlipidemia Encounter Details Date Type Department Care Team Description 03/16/2023 [facility] [address] [facility] [place] [id number] [facility] [address] [facility] [place] [id number] Dyslipidemia, goal LDL below 70* Allergies Active Allergy Reactions Severity Noted Date Comments Atorvastatin 03/04/2018 Myalgia Fluticasone Furoate-Vilanterol 12/24/2021 Tightness in chest Rosuvastatin Calcium 03/04/2018 myalgia Iodinated Contrast Media Anaphylaxis,Itching High Contrast dye Other Allergy (See Comments) 04/24/2022 Product Containing 1-vzwyxks-5-methylglu taryl-coenzyme A Reductase Inhibitor (product) Simvastatin 03/04/2018 myalgia documented as of this encounter (statuses as of 03/16/2023) Medications Medication Sig Dispensed Refills Start Date [...] Tablet (pLAVix)Indication s:Atherosclerosis of coronary artery of [place] heart with stable angina pectoris, unspecified vessel [...] Sublingual Tablet Sublingual (Nitrostat)Indicat ions:Atheroscleros is of [place] coronary artery of [place] heart with other form of angina pectoris (HCC),Exertional angina (HCC),Coronary 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 0 Active Hospital, Clinic, or Other Facility Administered Medication Ordered Dose Route Frequency Start Date End Date Status Albuterol Sulfate (Proventil) (2.5 MG/3ML) 0.083% inhalation solution 2.5 mgIndications:Chronic hypoxemic respiratory failure (HCC) 2.5 mg NEBULIZER Q4H PRN 06/18/2021 Active documented as of this encounter (statuses as of 03/16/2023) Active Problems Problem Noted Date Chronic combined [...] adult exam 04/12/2019 Overview: Daughter-Sherly. 12/29 TTE [facility] similar. 11/28 new stent. TTE 45-49%. Mod wall motion abn. Mild AR. Mild dilated A root/ascend 10/28 6MWT ok. 10/27 UE EMG ok. 2017 colon 2mm polyp. Mak 5y 2014 colon CA Chronic major depressive disorder, recur rent episode 04/12/2019 Atherosclerosis of [place] co ronary artery of [place] heart with stable angina pectoris 07/06/2018 Lung nodules 05/28/2018 Splenomegaly 04/09/2018 History of colon cancer 04/08/2018 Statin intolerance 01/29/2018 Stable angina 02/01/2017 Coronary artery disease invo lving coronary bypass graft of [place] heart with angina pectoris 09/14/2016 S/P angioplasty [...] (small bowel obstruction) Overview: 04/23 admit. 11/21 [facility] improved w/NPO. Cont ETOH abuse documented as of this encounter (statuses as of 03/16/2023) Resolved Problems Problem Noted Date Resolved Date Acute ST elevation myocardial infarction (STEMI) 11/21/2022 11/26/2022 COPD, group A, by GOLD 2017 classification 11/1911/14/2021 Overview: Per COPD GOLD Classification COPD, mild 07/09/2018 11/23/2019 Overview: 2018 PFTs mild obstruction. Breo started--feels breathing is better. Thrombocytopenia 07/06/2018 10/25/2019 Exertional angina 10/22/2016 01/01/2017 Coronary atherosclerosis of [place] coronary moody ry 12/26/2013 03/22/2019 Colon cancer 10/06/2013 08/18/2017 Cancer Staging:Clinical:Stage IIIA(T1, N1, M0) - Signed by Aiden Beauchamp MD on 11/24/2013 Pathologic: Unsigned Overview: 09/29/13 S/p partial sigmoid colectomy-Dr Steiner. Pathologic stage pT1N1a. (metastatic adenocarcinoma 08/25 nodes, invading submucosa) Pre-op testing 09/13/2013 02/25/2017 Routine general medical exam ination at a health care facility 01/25/2013 05/30/2018 Overview: 03/26 CT chest [facility] 6mm nodule. Mak 6mo ordered. 11/24 stopped crestor-myalgias. 08/25 CONSIDER EGD? 10/24 colon-2mm polyp PATH tubular adenoma. Mak 5y Preconetmplative to cut back ETOH. Stable low plat/wbc. 05/24 periph smear done ok. Colonoscopy 09/[address] Sebastian-for Synvisc Needs HARRIET fall 08/22 25mm colon polyp--Path---cancer--resected. 01/19 prostate discussed-declined 11/29/12 RUQ US @ [facility]--possible fatty infiltrate 11/11/12 DEXA @[facility]-- T -1.0 hip 07/20 Rib Xray-Right 7-9th rib frx 04/01/10CT neck @[facility]-mild osteophytes 2007 colonoscopy-WNL. 08/14/03. Colonoscopy-The polyp at 45 cm showed moderate atypia. halfway current use of anticoagulant therapy 0 12/24/2003 11/21/2012 Overview: ICD-10 update of inactive term BENIGN NEOPLASM LG BOWEL 08/31/2003 019 Calculus of kidney 08/18/2001 05/30/2018 Coronary atherosclerosis 019 Overview: S/p CABG x5 06/24/1993 VICTORIA-D1-LAD TERRY-RCA SVG-OM1 SVG-OM2 PURE HYPERCHOLESTEROLEM 07/24/20 09 Overview: Per Lipid Taxonomy. TIA (transient ischemic attack) 02/25/2017 documented as of this encounter (statuses as of 03/16/2023) Immunizations Name Administration Dates Next Due COVID-19 [...] of this encounter Progress Notes * Alka Avilez RPh - 03/16/2023 2:15 PM EDT MTM HLD update Latest Reference Range & Units 11/21/22 04:37 Triglycerides <=174 mg/dL 64 Cholesterol <200 mg/dL 109 Non-HDL Cholesterol <=159 mg/dL 60 HDL Cholesterol >39 mg/dL 49 LDL Cholesterol <=129 mg/dL 47 Patient LDL improved from 93 to 47 and is at goal. Will continue current medications. Labs: Lipid panel 11/22/23--remind me sent Follow up: none; MTM will sign off as LDL at goal Alka Avilez Pharm D Clinical Pharmacist Cardiology 03/16/2023,2:17 PM documented in this encounter Plan of Treatment Upcoming Encounters Date Type Specialty Care Team Description 04/23/2023 Office Visit Family Medicine Tyler Shea DO [address] [place] [address] 04/27/2023 Hospital Encounter Endoscopy Milvia Arnold MD [address] [place] [address] 04/27/2023 Surgery Endoscopy Milvia Arnold MD [address] [place] [address] COLONOSCOPY FLEXIBLE PROXIMAL DIAGNOSTIC 05/19/2023 Office Visit Cardiology Vivienne Sunshine CRNP [address] [place] [address] 05/25/2023 PulmDiagnostic Pulmonary Function [place], Pft [address] [place] [address] 05/28/2023 Office Visit Family Medicine Miguel Suarez MD [address] [place] [address] 07/27/2023 Office Visit Sleep Disorders Mica Hernandez CRNP [address] [place] [address] Scheduled Procedures Name Priority Associated Diagnoses Date/Ti [...] this encounter Medical Devices Implanted Type Area Fruit Thinner Device Identifier Shelf Expiration Date Model / Serial / Lot Stent Synergy Xd Mr [id number] - [id number] Implanted:Qty: 1 on 11/24/2022 by Johnny Schofield MD at [facility] [employer] [id number] 07/24/2023 [id number] 220 / / [id number] documented as of this encounter Visit Diagnoses [...] the patient have Health Care Power of School Bus Operator? No Care Teams Structural Layout Worker Relationship Specialty Start Date End Date Miguel Suarez MD [address] [place] [address] PCP - General Family Medicine 07/25/14 documented as of this encounter
--- OUTSIDE RECORDS SUMMARY | 2023-08-09 07:50 | External Medical Summary | Summary of Care ---
Author Name Unknown Organization [facility] Address [address] [facility] [facility] [address] Phone [phone] Care Team Providers Care Lithoplate Maker Name Role Phone Miguel Suarez MD Primary Care Provider + Reason for Visit * Reason Comments Outpatient Testing Encounter Details Date Type Department Care Team Description 04/08/2023 Laboratory Laboratory, [facility] [address] [place] [address] [facility] [address] [place] [address] ROD (acute kidney injury) ([facility]) Allergies Active Allergy Reactions Severity Noted Date Comments Atorvastatin 03/04/2018 Myalgia Fluticasone Furoate-Vilanterol 12/24/2021 Tightness in chest Rosuvastatin Calcium 03/04/2018 myalgia Iodinated Contrast Media Anaphylaxis,Itching High Contrast dye Other Allergy (See Comments) 04/24/2022 Product Containing 3-axjiptd-0-methylglu taryl-coenzyme A Reductase Inhibitor (product) Simvastatin 03/04/2018 myalgia documented as of this encounter (statuses as of 04/08/2023) Medications Medication Sig Dispensed Refills Start Date [...] Tablet (pLAVix)Indication s:Atherosclerosis of coronary artery of [place] heart with stable angina pectoris, unspecified vessel [...] Sublingual Tablet Sublingual (Nitrostat)Indicat ions:Atheroscleros is of [place] coronary artery of [place] heart with other form of angina pectoris (HCC),Exertional angina (HCC),Coronary 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 0 Active documented as of this encounter (statuses as of 04/08/2023) Active Problems Problem Noted Date Chronic combined [...] adult exam 04/12/2019 Overview: Daughter-Sherly. 03/31 inferior [place]? Cath- no new lesions of CABG. 12/29 TTE [facility] similar. 11/28 new stent. TTE 45-49%. Mod wall motion abn. Mild AR. Mild dilated A root/ascend 10/28 6MWT ok. 10/27 UE EMG ok. 2017 colon 2mm polyp. Mak 5y 2014 colon CA Chronic major depressive disorder, recur rent episode 04/12/2019 Atherosclerosis of [place] co ronary artery of [place] heart with stable angina pectoris 07/06/2018 Lung nodules 05/28/2018 Splenomegaly 04/09/2018 History of colon cancer 04/08/2018 Statin intolerance 01/29/2018 Stable angina 02/01/2017 Coronary artery disease invo lving coronary bypass graft of [place] heart with angina pectoris 09/14/2016 S/P angioplasty [...] (small bowel obstruction) Overview: 04/23 admit. 11/21 [facility] improved w/NPO. Cont ETOH abuse documented as of this encounter (statuses as of 04/08/2023) Resolved Problems Problem Noted Date Resolved Date Acute ST elevation myocardial infarction (STEMI) 11/21/2022 11/26/2022 COPD, group A, by GOLD 2017 classification 11/1911/14/2021 Overview: Per COPD GOLD Classification COPD, mild 07/09/2018 11/23/2019 Overview: 2018 PFTs mild obstruction. Breo started--feels breathing is better. Thrombocytopenia 07/06/2018 10/25/2019 Exertional angina 10/22/2016 01/01/2017 Coronary atherosclerosis of [place] coronary moody ry 12/26/2013 03/22/2019 Colon cancer 10/06/2013 08/18/2017 Cancer Staging:Clinical:Stage IIIA(T1, N1, M0) - Signed by Aiden Beauchamp MD on 11/24/2013 Pathologic: Unsigned Overview: 09/29/13 S/p partial sigmoid colectomy-Dr Steiner. Pathologic stage pT1N1a. (metastatic adenocarcinoma 08/25 nodes, invading submucosa) Pre-op testing 09/13/2013 02/25/2017 Routine general medical exam ination at a health care facility 01/25/2013 05/30/2018 Overview: 03/26 CT chest [facility] 6mm nodule. Mak 6mo ordered. [...] at 45 cm showed moderate atypia. intermediate manager current use of anticoagulant therapy 0 12/24/2003 11/21/2012 Overview: ICD-10 update of inactive term BENIGN NEOPLASM LG BOWEL 08/31/2003 019 Calculus of kidney 08/18/2001 05/30/2018 Coronary atherosclerosis 019 Overview: S/p CABG x5 06/24/1993 VICTORIA-D1-LAD TERRY-RCA SVG-OM1 SVG-OM2 PURE HYPERCHOLESTEROLEM 07/24/20 09 Overview: Per Lipid Taxonomy. TIA (transient ischemic attack) 02/25/2017 documented as of this encounter (statuses as of 04/08/2023) Immunizations Name Administration Dates Next Due COVID-19 [...] DO [address] [place] [address] 04/27/2023 Hospital Encounter Endoscopy Milvia Arnold MD [address] [place] [address] 04/27/2023 Surgery Endoscopy Milvia Arnold MD [address] [place] [address] COLONOSCOPY FLEXIBLE PROXIMAL DIAGNOSTIC 05/06/2023 Office Visit Cardiology Vivienne Sunshine CRNP [address] [place] [address] 05/25/2023 PulmDiagnostic Pulmonary Function [place], Pft [address] [place] [address] 05/28/2023 Office Visit Family Medicine Miguel Suarez MD [address] [place] [address] 07/27/2023 Office Visit Sleep Disorders Mica Hernandez CRNP [address] [place] [address] Pending Results Name Type Priority Associated Diagnoses Date /Time BASIC METABOLIC PANEL Lab Routine ROD (acute kidney injury) (HCC) 04/08/2023 10:59 AM EDT Scheduled Procedures Name Priority Associated Diagnoses Date/Ti me COLONOSCOPY FLEXIBLE PROXIMAL DIAGNOSTIC Recall History of colon polyps History of colon cancer 04/27/2023 10:15 AM EDT Health Maintenance Due Date Last Done Comments AAA Screening 2015 DXA Scan 2015 COVID-19 Vaccine (6 - Moderna series) 09/15/2021 07/21/2021, 07/21/2021, 10/16/2020, Additional history exists COLONOSCOPY-EVERY 5 YRS AGES 18-100 10/20/2022 10/20/2017, 10/20/2017, 10/01/2014, Additional history exists Influenza Vaccine (FLU shot) (#1) 2023 06/29/2022, 06/09/2021, 05/16/2021, Additional history exists HbA1c 11/22/2023 11/21/2022, 10/07, 05/20/2021, Additional history exists GFR 12/29/2023 12/28/2022, 11/08, 11/26/2022, Additional history exists Depression Screening, Annual for Pts 12 and Over 04/08/2024 04/08/2023, 03/23/2018 (Declined) Albumin/Creatinine Ratio 01/21/2026 023, 10/20/2013, [...] on patient's age to complete this topic Mammogram Discontinued documented as of this encounter Medical Devices Implanted Type Area Patient Admitting Clerk Device Identifier Shelf Expiration Date Model / Serial / Lot Stent Synergy Xd Mr [id number] - [id number] Implanted:Qty: 1 on 11/24/2022 by Johnny Schofield MD at [facility] [employer] [id number] 07/24/2023 [id number] 220 / / [id number] documented as of this encounter Visit Diagnoses Diagnosis ROD (acute kidney injury) (HCC) Acute kidney failure, unspecified History of colon [...] the patient have Health Care Power of Tax Auditor? No Care Teams Lithoplate Maker Relationship Specialty Start Date End Date Miguel Suarez MD [address] [place] [address] PCP - General Family Medicine 07/25/14 documented as of this encounter
--- OUTSIDE RECORDS SUMMARY | 2023-08-09 07:50 | External Medical Summary ---
Author Name Unknown Address Unknown Organization [id number] [address] [place] [address] Laboratory Report Ordering Provider Test Date Status GLYNN KINNEY 04/08/2023 10:59:13 Final Observation Date Value Abnormality Reference (Units ) Status BUN 04/08/2023 10:59:13 21 Above high normal 6-20 (mg/dL) Final Creatinine 04/08/2023 10:59:13 1.2 0.6-1.2 (mg/dL) Final Glomerular filtration rate/1.73 sq M.predicted [Volume Rate/Area] in Serum, Plasma or Blood by Creatinine-based formula (CKD-EPI) 04/08/2023 10:59:13 62 >=60 (mL/min) Final eGFR is calculated based on the CKD-EPI 2020 equation SODIUM 04/08/2023 10:59:13 140 135-146 (m mol/L) Final Potassium 04/08/2023 10:59:13 4.4 3.5-5.1 (m mol/L) Final Cl 04/08/2023 10:59:13 102 98-107 (mm ol/L) Final CO2 04/08/2023 10:59:13 27 22-32 (mmo l/L) Final Anion gap 04/08/2023 10:59:13 11 7-15 (mmol /L) Final Glucose 04/08/2023 10:59:13 79 70-120 (mg /dL) Final Calcium 04/08/2023 10:59:13 9.0 8.4-10.2 ( mg/dL) Final [facility] [address] [place] [address]
--- OUTSIDE RECORDS SUMMARY | 2023-08-09 07:50 | External Medical Summary | Summary of Care ---
Author Name Unknown Organization [facility] Address [address] [facility] [place] [address] Phone [phone] Care Team Providers Care Location Manager Name Role Phone Miguel Suarez MD Primary Care Provider + Reason for Visit * Reason Onset Date Comments Hospital Follow-Up 04/05/2023 [facility] 04/03 Encounter Details Date Type Department Care Team Description 04/05/2023 Telephone Ancillary [facility] [address] [facility] [place] [address] Rhoda Zambrano RN Hospital Follow-Up ([facility] 04/03) Allergies Active Allergy Reactions Severity Noted Date Comments Atorvastatin 03/04/2018 Myalgia Fluticasone Furoate-Vilanterol 12/24/2021 Tightness in chest Rosuvastatin Calcium 03/04/2018 myalgia Iodinated Contrast Media Anaphylaxis,Itching High Contrast dye Other Allergy (See Comments) 04/24/2022 Product Containing 8-toukxmk-9-methylglu taryl-coenzyme A Reductase Inhibitor (product) Simvastatin 03/04/2018 [...] Tablet (pLAVix)Indication s:Atherosclerosis of coronary artery of [place] heart with stable angina pectoris, unspecified vessel [...] Sublingual Tablet Sublingual (Nitrostat)Indicat ions:Atheroscleros is of [place] coronary artery of [place] heart with other form of angina pectoris (HCC),Exertional angina (HCC),Coronary artery disease involving coronary bypass graft of [place] heart with angina pectoris (HCC) PLACE 1 [...] 50 MCG/ACT Nasal Suspension (Flonase) Administer 1 [place] into nostril daily as needed. 0 Active [...] disorder, recur rent episode 04/12/2019 Atherosclerosis of [place] co ronary artery of [place] heart with stable angina pectoris 07/06/2018 Lung nodules 05/28/2018 Splenomegaly 04/09/2018 History of colon cancer 04/08/2018 Statin intolerance 01/29/2018 Stable angina 02/01/2017 Coronary artery disease invo lving coronary bypass graft of [place] heart with angina pectoris 09/14/2016 S/P angioplasty [...] (small bowel obstruction) Overview: 04/23 admit. 11/21 [facility] improved w/NPO. Cont ETOH abuse documented [...] Exertional angina 10/22/2016 01/01/2017 Coronary atherosclerosis of [place] coronary moody ry 12/26/2013 03/22/2019 Colon cancer 10/06/2013 08/18/2017 Cancer Staging:Clinical:Stage IIIA(T1, N1, M0) - Signed by Aiden Beauchamp MD on 11/24/2013 Pathologic: Unsigned Overview: 09/29/13 S/p partial sigmoid colectomy-Dr Steiner. Pathologic stage pT1N1a. (metastatic adenocarcinoma 08/25 nodes, invading submucosa) Pre-op testing 09/13/2013 02/25/2017 Routine general medical exam ination at a health care facility 01/25/2013 05/30/2018 Overview: 03/26 CT chest [facility] 6mm nodule. Mak 6mo ordered. 11/24 stopped crestor-myalgias. 08/25 CONSIDER EGD? 10/24 colon-2mm polyp PATH tubular adenoma. Mak 5y Preconetmplative to cut back ETOH. Stable low plat/wbc. 05/24 periph smear done ok. Colonoscopy 09/[address] WNL[address] Mak [address] Dr Sebastian-for Synvisc Needs HARRIET fall 08/22 25mm colon polyp--Path---cancer--resected. 01/19 prostate discussed-declined 11/29/12 RUQ US @ [facility]--possible fatty infiltrate 11/11/12 DEXA @[facility]-- T -1.0 hip 07/20 Rib Xray-Right 7-9th rib frx 04/01/10CT neck @[facility]-mild osteophytes 2008 colonoscopy-WNL. 08/14/03. Colonoscopy-The polyp at [...] encounter Miscellaneous Notes * Telephone Encounter - Rhoda Zmabrano RN - 04/05/2023 12:47 PM EDT Transitions of Care Note Reason for Referral:Recent Admission Phone visit for follow up: NICOLA Admitted to: [facility], Date: 04/02 Discharged to: home, Date: 04/03 Diagnosis driving hospitalization: Severe multivessel coronary artery disease Ischemic cardiomyopathy Source/Contact: Patient SUBJECTIVE Consent: Verbal consent for review of hospital discharge: Yes REVIEW OF SYSTEMS Patient/Other Reports: Current patient/caregiver problems or concerns: none at this time CV: Denies problems Pulmonary: Denies problems Chills/Sweats/Fever:Denies chills/sweats Denies fever Appetite:Denies problems such as nausea, vomiting, burning, decreased appetite Current diet: heart healthy Bowel: denies problems Bladder: denies problems Wound (If applicable): N/A Pain:Denies Sleep:Denies problems FUNCTIONAL STATUS: ADL'S: Needs Assistance With:N/A as pt is independent IADL'S: Needs Assistance With:N/A as pt is independent Cognitive and Mental Health: denies problems, alert and oriented x 3, and able to communicate, understand instructions, process information. MEDICATION RECONCILIATION Medications: No new medications or medication changes OBJECTIVE ASSESSMENT Medication Risk Assessment: No risks identified Did patient fail outpatient treatment? No Discharge instructions available for review? Yes PLAN Symptom Monitoring Interventions:Member/caregiver education - signs and symptoms to contact PrimaryCare (DO NOT DELETE-Three mcgill symptoms patient is to report to PCP) 1. Worsening SOB 2. Edema in [place] 3. 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 Educated patient/caregiver on patient right to have input on NICOLA plan of care. Verification of Home Health/DME if indicated: NO Identified Care Gaps: Yes Care Gaps closed this call: Appointment made or confirmed, Post discharge appointment, and Transition of Care follow-up communication Re-evaluation of Plan of Care and progress towards goals achievement: Patient education this visit: Verbal, as abve Plan to follow-up as previously scheduled, instructed to call Primary Care Provider with change in symptoms or as needed before next follow-up, discharge needs met, verbalizes understanding and agrees with plan. Rhoda Zambrano, RN documented in this encounter Plan of Treatment Upcoming Encounters Date Type Specialty Care Team Description 04/08/2023 Office Visit Family Medicine Miguel Suarez MD [address] [place] [address] 04/23/2023 Office Visit Family Medicine Tyler Shea DO [address] [place] [address] 04/27/2023 Hospital Encounter Endoscopy Milvia Arnold MD [address] [place] [address] 04/27/2023 Surgery Endoscopy Milvia Arnold MD [address] [place] [address] COLONOSCOPY FLEXIBLE PROXIMAL DIAGNOSTIC 05/06/2023 Office Visit Cardiology Vivienne Sunshine CRNP [address] [place] [address] 05/25/2023 PulmDiagnostic Pulmonary Function [place], Pft [address] [place] [address] 05/28/2023 Office Visit Family Medicine Miguel Suarez MD [address] [place] [address] 07/27/2023 Office Visit Sleep Disorders Mica Hernandez CRNP [address] [place] [address] Scheduled Procedures Name Priority Associated Diagnoses Date/Ti [...] Additional history exists Zoster Vaccines Completed 06/15/2019, 110 02/2019, 04/12/2019, Additional history exists GARDASIL-HPV IMMUNIZATION SERIES Aged Out No longer eligible based on patient's age to complete this topic Hepatitis B Aged Out No longer eligi ble based on patient's age to complete this topic MENINGOCOCCAL (MENACTRA/MENVEO) Aged Out No longer eligible based on patient's age to complete this topic documented as of this encounter Medical Devices Implanted Type Area Orchid Superintendent Device Identifier Shelf Expiration Date Model / Serial / Lot Stent Synergy Xd Mr [id number] - [id number] Implanted:Qty: 1 on 11/24/2022 by Johnny Schofield MD at [facility] [place] [id number] 07/24/2023 [id number] 220 / / [id number] documented as of this encounter Advance Directives [...] the patient have Health Care Power of Director Hardware? No Care Teams Location Manager Relationship Specialty Start Date End Date Miguel Suarez MD [address] [place] [address] PCP - General Family Medicine 07/25/14 documented as of this encounter
--- OUTSIDE RECORDS SUMMARY | 2023-08-09 07:50 | External Medical Summary | Summary of Care ---
Author Name Unknown Organization [facility] Address [address] [address] Phone [phone] Care Team Providers Care Biochemical Development Engineer Name Role Phone Miguel Suarez MD Primary Care Provider + Reason for Visit * Reason Comments Hospital Follow-Up [facility] 04/02/23-04/03/23 : Emergency cath Encounter Details Date Type Department Care Team Description 04/08/2023 Office Visit Family Practice [facility] [address] [place] [address] Miguel Suarez MD [address] [place] [address] Coronary artery disease involving coronary bypass graft of [place] heart with angina pectoris ([facility])*; ROD (acute kidney injury) ([facility]); HFrEF (heart failure with reduced ejection fraction) ([facility]) Allergies Active Allergy Reactions Severity Noted Date Comments Atorvastatin 03/04/2018 Myalgia Fluticasone Furoate-Vilanterol 12/24/2021 Tightness in chest Rosuvastatin Calcium 03/04/2018 myalgia Iodinated Contrast Media Anaphylaxis,Itching High Contrast dye Other Allergy (See Comments) 04/24/2022 Product Containing 9-wdfjmda-9-methylglu taryl-coenzyme A Reductase Inhibitor (product) Simvastatin 03/04/2018 [...] Tablet (pLAVix)Indication s:Atherosclerosis of coronary artery of [place] heart with stable angina pectoris, unspecified vessel [...] Sublingual Tablet Sublingual (Nitrostat)Indicat ions:Atheroscleros is of [place] coronary artery of [place] heart with other form of angina pectoris (HCC),Exertional angina (HCC),Coronary artery disease involving coronary bypass graft of [place] heart with angina pectoris (HCC) PLACE 1 [...] 50 MCG/ACT Nasal Suspension (Flonase) Administer 1 [place] into nostril daily as needed. 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 03/31 inferior SC? Cath- no new lesions of CABG. 12/29 TTE [facility] similar. 11/28 new stent. TTE 45-49%. Mod wall motion abn. Mild AR. Mild dilated A root/ascend 10/28 6MWT ok. 10/27 UE EMG ok. 2017 colon 2mm polyp. Mak 5y 2014 colon CA Chronic major depressive disorder, recur rent episode 04/12/2019 Atherosclerosis of [place] co ronary artery of [place] heart with stable angina pectoris 07/06/2018 Lung nodules 05/28/2018 Splenomegaly 04/09/2018 History of colon cancer 04/08/2018 Statin intolerance 01/29/2018 Stable angina 02/01/2017 Coronary artery disease invo lving coronary bypass graft of [place] heart with angina pectoris 09/14/2016 S/P angioplasty [...] (small bowel obstruction) Overview: 04/23 admit. 11/21 [facility] improved w/NPO. Cont ETOH [...] Exertional angina 10/22/2016 01/01/2017 Coronary atherosclerosis of [place] coronary moody ry 12/26/2013 03/22/2019 Colon cancer 10/06/2013 08/18/2017 Cancer Staging:Clinical:Stage IIIA(T1, N1, M0) - Signed by Aiden Beauchamp MD on 11/24/2013 Pathologic: Unsigned Overview: 09/29/13 S/p partial sigmoid colectomy-Dr Steiner. Pathologic stage pT1N1a. (metastatic adenocarcinoma 08/25 nodes, invading submucosa) Pre-op testing 09/13/2013 02/25/2017 Routine general medical exam ination at a health care facility 01/25/2013 05/30/2018 Overview: 03/26 CT chest [facility] 6mm nodule. Mak 6mo ordered. 11/24 stopped crestor-myalgias. 08/25 CONSIDER EGD? 10/24 colon-2mm polyp PATH tubular adenoma. Mak 5y Preconetmplative to cut back ETOH. Stable low plat/wbc. 05/24 periph smear done ok. Colonoscopy 09/[address] Sebastian-for Synvisc Needs HARRIET fall 08/22 25mm colon polyp--Path---cancer--resected. 01/19 prostate discussed-declined 11/29/12 RUQ US @ [facility]--possible fatty infiltrate 11/11/12 DEXA @[facility]-- T -1.0 hip 07/20 Rib Xray-Right 7-9th rib frx 04/01/10CT neck @[facility]-mild osteophytes 2007 colonoscopy-WNL. 08/14/03. Colonoscopy-The polyp at 45 cm showed moderate atypia. 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 0 12/24/2003 [...] Sign Reading Time Taken Comments Blood Pressure 102/58 04/08/2023 10:25 AM EDT Pulse 83 04/08/2023 10:25 AM EDT Temperature - - Respiratory Rate 20 04/08/2023 10:25 AM EDT Oxygen Saturation 97% 04/08/2023 10:25 AM EDT Inhaled Oxygen Concentration - - Weight 93 kg (205 lb 1 oz) 04/08/2023 10:25 AM E DT Height - - Body Mass Index 31.18 01/27/2023 11:02 AM EDT documented in this [...] as of this encounter Progress Notes * Miguel Suarez MD - 04/08/2023 10:57 AM EDT SUBJECTIVE: Curtis Jamil is a 72 year old male here for Hospital Follow-Up ([facility] 04/02/23- 04/03/23: Emergency cath) . Here for hosp f/u [facility] 04/02/23-04/03/23. Patient had some increased shortness a breath the day before admission patient had some increased shortness of breath day before admission. Also had some shortness of breath while at cardiac rehab. EKG was done which was concerning for STEMI. He was referred directly to the ER. Patient with complicated cardiac history. CABG in past. Recent hospitalization May for CHF isabelle started on Entresto. In November had STEMI and had stent placed in LAD. He has been doing cardiac rehab a Wednesday. Typically feels fine sometimes feels like he needs an extra breath which lasts for a couple seconds. Typically walking around the house and walking 100 yd without difficulty. No increased swelling in his legs. Has been wearing his nitro patch. He had a cardiac catheterization done 04/02/[address] Paredes--previously placed stent is widely patent, diffuse mild disease. He may have had mild thrombus in the posterior lateral branch has a transitioned from distal RCA. LAD anastomosis is without stenosis. Diagonal branch has ostial to proximaldisease of 95-90% similar to prior catheterization not amenable PCI. Negative troponin. He is continued on his regular medication management and discharged home. Since he is discharged home no acute shortness of breath walking without any difficulty. No chest pain. He was noted to have higher creatinine than normal at 1.9 on admission. His baseline is 1.3-1.6. ROS: Negative except above. Past Medical History: [...] with stent 09/11/2016 SBO (small bowel obstruction) ([facility]) 11/21 [facility] improved w/NPO SBO (small bowel obstruction) ([facility]) 04/23 admit. 11/21 [facility] improved w/NPO. Cont ETOH abuse TIA (transient ischemic attack) 1979 KQB-temguby-zun on coumadin x30y Past Surgical History: Procedure Laterality Date CABG, ARTERY-VEIN, FIVE 1992 [facility]-Dr Cagle CARDIAC ANGIOPLASTY, PERCUTANEOUS, 1 ARTERY Bilateral 11/24/2022 PTCA, CARDIAC ANGIOPLASTY, PERCUTANEOUS, 1 ARTERY performed by Johnny Schofield MD at CARDIAC LABS [facility] CARDIAC CATH SCANNED RESULT 09/11/2016 cardiac stent-PRESTON the the SVG to 1st OM due to 95% stenosis. CARDIAC CATH-CARDIOLOGY ONLY 04/02/2023 Dr Paredes @[facility]. focus on CABG sites-no lesions. CARPAL TUNNEL SURGERY 2004 right CARPAL TUNNEL SURGERY Left 01/03/2021 NEUROPLASTY MEDIAN NERVE AT CARPAL TUNNEL performed by Higinio Lindsay MD at OR [facility] COLONOSCOPY, DIAGNOSTIC (RECTUM) 09/05/2013 COLONOSCOPY FLEXIBLE PROXIMAL DIAGNOSTIC performed by Milvia Arnold MD at ENDOSCOPY [facility] COLONOSCOPY, DIAGNOSTIC (RECTUM) 10/01/2014 diverticulosis, repeat 3 yrs/COLONOSCOPY FLEXIBLE PROXIMAL DIAGNOSTIC performed by Milvia Arnold MD at ENDOSCOPY [facility] COLONOSCOPY, DIAGNOSTIC (RECTUM) 10/20/2017 adenomatous polyp, repeat 5 yrs/COLONOSCOPY FLEXIBLE PROXIMAL DIAGNOSTIC performed by Milvia Arnold MD at ENDOSCOPY [facility] CORONARY ANGIOGRAPHY W/LEFT HEART CATH 11/04/2016 CORONARY ANGIOGRAPHY W/LEFT HEART CATH performed by Liz Zhang MD at CARDIAC LABS [facility] EGD, FLEXIBLE, DIAGNOSTIC 04/28/2022 normal bx / ESOPHAGOGASTRODUODENOSCOPY (EGD), FLEXIBLE, TRANSORAL, DIAGNOSTIC performed by Syed Ferrara MD at ENDOSCOPY [facility] KNEE ARTHROSCOPY, DIAGNOSTIC Knee Arthroscopy, several MISCELLANEOUS ORDER ([facility] ONLY) sinus trubinate reduction MISCELLANEOUS ORDER ([facility] ONLY) left great toe surgery PARTIAL REMOVAL OF COLON 09/29/2013 Sigmoid colon resection with stapled end-to-end anastomosis, [facility], Dr. 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 2grandkid daughter -Sharon, son-Jamey sharif 2 grandsons . has friend. 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 No current facility-administered medications for this visit. Physical: BP 102/58 | Pulse 83 | Resp 20 | Wt 93 kg (205 lb 1 oz) | SpO2 97% | BMI 31.18 kg/m | BSA 2.11 m General-No apparent Distress Head, Eyes, Ears, Nose, Throat--Normocephalic, atraumatic Neck-Supple Lymph-no lymphadenopathy Lungs-Clear to Auscultation bilaterally Cardiovascular--Regular rate & Rhythm, +s1, s2, no murmur Abdomen-soft, nontender, nondistended + bowel sounds Extremities--no edema Neuro-alert & oriented x3 (I25.709) Coronary artery disease involving coronary bypass graft of [place] heart with angina pectoris (HCC) (primary encounter diagnosis) Plan: cont med mgmt. F/u cards as sched Daily wts Follow up with cardiac rehab-has appt tomorrow. (N17.9) ROD (acute kidney injury) ([facility]) Plan: BASIC METABOLIC PANEL Mak today (I50.20) HFrEF (heart failure with reduced ejection fraction) ([facility]) Plan: as above Cont mgmt Cc: Dr Kaiser (This note was completed using the dictation program Fluency Direct. As such, there may be misspellings, word substitutions, or other variations that should not change the essence of the clinical content of this encounter note.If there is need for further clarification, please direct questions to the provider listed above.) Miguel Suarez MD documented in this encounter Nursing Notes * Elvira Winkler LPN - 04/08/2023 10:24 AM EDT The patient has been properly identified by confirmation of name and date of .. Chief Complaint Patient presents with Hospital Follow-Up [facility] 04/02/23-04/03/23: Emergency cath documented in this encounter Plan of Treatment Upcoming Encounters Date Type Specialty Care Team Description 04/08/2023 Laboratory Laboratory Gilson Morin [address] [place] [address] ROD (acute kidney injury) ([facility]) 04/23/2023 Office Visit Family Medicine Tyler Shea DO [address] [place] [address] 04/27/2023 Hospital Encounter Endoscopy Milvia Arnold MD [address] [place] [address] 04/27/2023 Surgery Endoscopy Milvia Arnold MD [address] [place] [address] COLONOSCOPY FLEXIBLE PROXIMAL DIAGNOSTIC 05/06/2023 Office Visit Cardiology Vivienne Sunshine CRNP [address] [place] [address] 05/25/2023 PulmDiagnostic Pulmonary Function [facility], [facility] [address] [place] [address] 05/28/2023 Office Visit Family Medicine Miguel Suarez MD [address] [place] [place] [address] 07/27/2023 Office Visit Sleep Disorders Mica Hernandez CRNP [address] [place] [address] Pending Results Name Type Priority Associated Diagnoses Date /Time BASIC METABOLIC PANEL Lab Routine ROD (acute kidney injury) (HCC) 04/08/2023 10:59 AM EDT Scheduled Orders Name Type Priority Associated Diagnoses Orde r Schedule BASIC METABOLIC PANEL Lab Routine ROD (acute kidney injury) (HCC) Expected: 04/08/2023 (Approximate), Expires: 04/07/2024 Scheduled Procedures Name Priority Associated Diagnoses Date/Ti [...] this encounter Medical Devices Implanted Type Area Poly Packer And Heat Sealer Device Identifier Shelf Expiration Date Model / Serial / Lot Stent Synergy Xd Mr [id number] - [id number] Implanted:Qty: 1 on 11/24/2022 by Johnny Schofield MD at CARDIAC LABS [facility] [employer] [id number] 07/24/2023 [id number] / / [id number] documented as of this encounter Visit Diagnoses Diagnosis Coronary artery disease involving coronary bypass graft of [place] heart with angina pectoris (HCC)- Primary ROD (acute kidney injury) (HCC) Acute kidney failure, unspecified HFrEF (heart failure with reduced ejection fraction) (HCC) ROD (acute kidney injury) (HCC) Acute kidney [...] the patient have Health Care Power of Foot Cutter? No Care Teams Biochemical Development Engineer Relationship Specialty Start Date End Date Miguel Suarez MD [address] [place] [address] PCP - General Family Medicine 07/25/14 documented as of this encounter
--- OUTSIDE RECORDS SUMMARY | 2023-08-09 07:50 | External Medical Summary | Summary of Care ---
Author Name Unknown Organization [facility] Address [address] [facility] [place] [address] Phone [phone] Care Team Providers Care Senior Business Consultant Name Role Phone Miguel Suarez MD Primary Care Provider + Reason for Visit * Reason Onset Date Comments Cardiac Rehab 03/29/2023 Encounter Details Date Type Department Care Team Description 03/29/2023 Telephone Cardiology, [facility] [address] [place] [address] Genaro Kaiser, DO [address] [place] [address] Cardiac Rehab Allergies Active Allergy Reactions Severity Noted Date Comments Atorvastatin 03/04/2018 Myalgia Fluticasone Furoate-Vilanterol 12/24/2021 Tightness in chest Rosuvastatin Calcium 03/04/2018 myalgia Iodinated Contrast Media Anaphylaxis,Itching High Contrast dye Other Allergy (See Comments) 04/24/2022 Product Containing 1-fxftosx-8-methylglu taryl-coenzyme A Reductase Inhibitor (product) Simvastatin 03/04/2018 myalgia documented as of this encounter (statuses as of 04/01/2023) Medications Medication Sig Dispensed Refills Start Date [...] Tablet (pLAVix)Indication s:Atherosclerosis of coronary artery of [place] heart with stable angina pectoris, unspecified vessel [...] Sublingual Tablet Sublingual (Nitrostat)Indicat ions:Atheroscleros is of [place] coronary artery of [place] heart with other form of angina pectoris (HCC),Exertional angina (HCC),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, recur rent episode 04/12/2019 Atherosclerosis of [place] co ronary artery of [place] heart with stable angina pectoris 07/06/2018 Lung nodules 05/28/2018 Splenomegaly 04/09/2018 History of colon cancer 04/08/2018 Statin intolerance 01/29/2018 Stable angina 02/01/2017 Coronary artery disease invo lving coronary bypass graft of [place] heart with angina pectoris 09/14/2016 S/P angioplasty [...] as of this encounter (statuses as of 04/01/2023) Resolved Problems Problem Noted Date Resolved Date Acute ST elevation myocardial infarction (STEMI) 11/21/2022 11/26/2022 COPD, group A, by GOLD 2017 classification 11/1911/14/2021 Overview: Per COPD GOLD Classification COPD, mild 07/09/2018 11/23/2019 Overview: 2018 PFTs mild obstruction. Breo started--feels breathing is better. Thrombocytopenia 07/06/2018 10/25/2019 Exertional angina 10/22/2016 01/01/2017 Coronary atherosclerosis of [place] coronary moody ry 12/26/2013 03/22/2019 Colon cancer [...] Rib Xray-Right 7-9th rib frx 04/01/10CT neck @[facility]-mild osteophytes 2008 colonoscopy-WNL. 08/14/03. Colonoscopy-The polyp at 45 cm showed moderate atypia. assisted current use of anticoagulant therapy 0 12/24/2003 11/21/2012 Overview: ICD-10 update of inactive term BENIGN NEOPLASM LG BOWEL 08/31/2003 019 Calculus of kidney 08/18/2001 05/30/2018 Coronary atherosclerosis 019 Overview: S/p CABG x5 06/24/1993 VICTORIA-D1-LAD TERRY-RCA SVG-OM1 SVG-OM2 PURE HYPERCHOLESTEROLEM 07/24/20 09 Overview: Per Lipid Taxonomy. TIA (transient ischemic attack) 02/25/2017 documented as of this encounter (statuses as of 04/01/2023) Immunizations Name Administration Dates Next Due COVID-19 [...] encounter Miscellaneous Notes * Telephone Encounter - CHANDAN Paredes - 03/30/2023 8:28 AM EDT It appears pt has already been rescheduled with Vivienne for 05/19/23 for 6 mo f/u. Ok to keep as scheduled? * Telephone Encounter - Genaro Kaiser DO - 03/29/2023 5:47 PM EDT Rhythm strips reviewed, and appear consistent with patient's known history of left bundle branch block with first-degree AV block, which is been present on tracings dating back to November,. Patient most recently seen in clinic follow-up by Maria Del Carmen EASON, he was due for follow-up with me this month, but was canceled due to scheduling issues. Please look for follow-up visit with me Joyce. No need for acute intervention with regards to the telemetry tracings noted at cardiac rehab. Continue cardiac rehab. Genaro Kaiser DO * Telephone Encounter - Shaun Meredith RN - 03/29/2023 11:20 AM EDT Received a call from Cardiac rehab at [facility]. The patient had developed some EKG changes the observed. They wanted to let Dr. Kaiser know. Copy of EKG strips placed on Dr. Kaiser's desk for review. documented in this encounter Plan of Treatment Upcoming Encounters Date Type Specialty Care Team Description 04/23/2023 Office Visit Family Medicine Tyler Shea DO [address] [place] [address] 04/27/2023 Hospital Encounter Endoscopy Milvia Arnold MD [address] [place] [address] 04/27/2023 Surgery Endoscopy Milvia Arnold MD [address] [place] [address] COLONOSCOPY FLEXIBLE PROXIMAL DIAGNOSTIC 05/19/2023 Office Visit Cardiology Vivienne Sunshine CRNP [address] [place] [address] 05/25/2023 PulmDiagnostic Pulmonary Function [facility] [address] [place] [address] 05/28/2023 Office Visit Family Medicine Miguel Suarez MD [address] [place] [address] 07/27/2023 Office Visit Sleep Disorders Mica Hernandez CRNP [address] [place] [address] Scheduled Procedures Name Priority Associated Diagnoses Date/Ti [...] this encounter Medical Devices Implanted Type Area Breaker Tender Device Identifier Shelf Expiration Date Model / Serial / Lot Stent Synergy Xd Mr [id number] - [id number] Implanted:Qty: 1 on 11/24/2022 by Johnny Schofield MD at [facility] [employer] [id number] 07/24/2023 [id number] / / [id number] documented as of this encounter Advance Directives [...] the patient have Health Care Power of Senior Clinical Data Coordinator? No Care Teams Senior Business Consultant Relationship Specialty Start Date End Date Miguel Suarez MD [address] [place] [address] PCP - General Family Medicine 07/25/14 documented as of this encounter
[2023-08-09] MEDS ORDERED: MoRPHine SULFATE 2 MG/ML CARP IV STA (07:54)
[2023-08-09] MEDS ORDERED: KETOROLAC TROMETHAMINE 15 MG/ML VIAL IV ONE (07:54)
[2023-08-09] MEDS ORDERED: ALBUTEROL HFA 8 GM INHALER INH ONE (07:54)
--- NOTE | 2023-08-09 08:02 | Emergency Department Note ---
Impression & Plan SOB (shortness of breath), Headache, Cough, Nausea ED Provider Note NAME: DOROTA WINTER AGE: 73 SEX: M : 1950 ARRIVES VIA: Ambulance INFORMANT: [Patient][EMS, nursing] ED PROVIDER(S): [Tyler Daniels MD] CHIEF COMPLAINT: Chest pain, cough, headache HISTORY OF PRESENT ILLNESS: The patient is a 73-year-old male whose had 6 days of a cough, headache and nausea. His cough is nonproductive. He does occasionally feel short of breath. He has heard himself wheeze. He has oxygen at home that he uses as needed, he has used the oxygen at times and it does make his breathing easier. There has been no documented fever, no sick contacts. The patient does have some tightness across his chest, he thinks it is from his lung issue. He feels he may have an infection. Of note, he does have a long and complicated history of heart disease, he has had MIs in the past. He is a daily alcohol user. Patient received Zofran IV prior to arrival. He has been using Tylenol for his headache, he took some this morning in fact. It does not help that much, coughing makes the headache quite a bit worse. The patient states that his headache is not positional. He states that even touching his scalp seems to increase his headache. He oftentimes feels worse lying flat because his head is touching a pillow. PMHx/PSHx/Social Hx: See Below PHYSICAL EXAM: GENERAL: Patient is in no acute distress. HEENT: No acute trauma, normocephalic atraumatic, mucous membranes dry, no nasal congestion. NECK: No stridor, no adenopathy, no meningismus, trachea is midline. Flexes chin to chest without pain or difficulty. LUNGS: Scattered wheezes on the right, no respiratory distress. HEART: Without murmurs gallops or rubs, regular rate and rhythm. ABDOMEN: Soft, nontender, no peritonitis. EXTREMITIES: No cyanosis, full range of motion of all the joints without pain or difficulty. NEUROLOGIC: Oriented x 3, no acute motor or sensory deficits, no focal weakness. SKIN: No jaundice, no diaphoresis. DIFFERENTIAL DIAGNOSIS: Bronchitis or pneumonia, COVID-19, RSV or rhinovirus, CHF, intracranial bleeding, dehydration, cardiac ischemia, among others. EMERGENCY DEPARTMENT PROCEDURES: MEDICAL DECISION MAKING: There was no leukocytosis or concerning anemia. Platelet count slightly low at 127. Patient has a history of a lower platelet count. There was no coagulopathy. No renal failure or significant electrolyte abnormality. Lactic acid level was not elevated making severe sepsis less likely. No concerning liver enzyme elevation. ECG shows a sinus rhythm, no obvious acute ischemia. Cardiac enzyme testing x 1 is not consistent with acute cardiac injury. Respiratory bio fire was completely negative. Chest x-ray does not show pneumonia or CHF. Brain CT shows no acute bleed or mass effect however, some potential edema versus artifact was noted not seen on previous CT imaging. MRI and MRV of the brain was recommended. There was no sinus thrombosis seen on MRI, no mass by MRI, potential decreased amount of CSF was considered. Tick testing was performed, anaplasmosis and Babesia smears were negative. The send out reference testing is pending. Lyme disease testing was negative. On exam, the patient complained of a headache especially with coughing. He did not have meningismus. He was not toxic or febrile. The patient received IV Toradol, IV Zofran, IV morphine. A second dose of IV morphine was given. He was given albuterol via MDI. He received IV ceftriaxone as empiric antibiotic therapy. He received IV Decadron. I did speak with neurology, Dr. Gorman. He felt the MRI was normal and there was no need for further neurologic workup. Symptomatic care was advised. At this point, the cause for his complaints is unclear. He does have a cough and certainly, viral illness with generalized inflammation from the viral illness is a possibility for his complaints. He does not have meningismus, there is no fever, no white count. He has had the same symptoms for almost a week. Lumbar puncture emergently does not appear indicated. I did speak with the patient and his daughter. Given his ongoing complaints, given the lack of a good explanation for his symptoms, admission/further care was felt warranted. I spoke with case management, the on-call hospitalist was consulted. Prior/Outside records/notes reviewed: Discharge summary from 04/03/23 discussing his multivessel coronary artery disease and his presentation for chest pain. ECG per my interpretation: Indication was chest pain and shortness of breath. The ECG shows a sinus rhythm with a first-degree AV block. The rate is 71. There is an old inferior infarct. There are some ST depressions with some subtle T wave inversions noted laterally. No PVCs. The QTc is 415. Compared to an ECG from 02 April 2023, the rate has increased. Continuous Cardiac Monitoring per my interpretation: An order was placed for continuous cardiac monitoring. The monitor shows a rate of 67 with sinus rhythm with a first-degree block. Imaging/x-ray results per my interpretation: Chest x-ray does not show mediastinal widening, pneumonia or pneumothorax. Chronic Medical/Social conditions affecting care: Coronary artery disease. Advanced age. Care/Management discussed with: Radiology-Dr. Chacon. Neurology-Dr. Gorman. Case management and the on-call hospitalist. 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 CLICKS NO LOCKING Prediabetes Diet controlled History of intestinal obstruction No recent issues History of colon cancer dx 2017; treated surgically + oral chemo History of TMJ disorder Occ jaw clicking - no jaw locking Hearing deficit BL [place] Has hearing aids - not wearing hearing aids Depression Anxiety History of TIA (transient ischemic attack) -"SHOWS 7 ON SCANS" PER PT-F/U DR On home oxygen therapy 2 LPM qHS- does not always use secondary to nasal dryness History of COVID-19 08/2020; asymptomatic -TESTED BY [facility] AT [facility] Chronic idiopathic thrombocytopenia F/U PCP BPH (benign prostatic hyperplasia) Gout No current issues Dyslipidemia On injectable medications - cannot tolerate statins GERD (gastroesophageal reflux disease) Well controlled and stable with med HTN (hypertension) CAD (coronary artery disease) "1992 - CABG x 5 09/2016 - [facility] to SVG of 10/2016 - repeat cath, no lesions amenable to intervention, medical management recommended" Follows with Dr. Kaiser Surgical History H/O arthroscopic knee surgery mult BL H/O heart artery stent x 1 H/O toe surgery History of cardiac catheterization 2016 [facility] - 1 stent History of carpal tunnel surgery History of colonoscopy History of partial colectomy History of tonsillectomy and adenoidectomy S/P CABG x 5 1992 [facility] Family History Father Diabetes Esophagus cancer Stomach cancer Heart disease Other No family history of adverse response to anesthesia Social History Smoking Status: Never smoker Tobacco Type: Cigarettes Second Hand Exposure: No; Do You Dip or Chew Tobacco: No; Hx Alcohol Use: No Hx Substance Use: No Preferred Language: Bhutanese Communication Ability: Effective Germ Drier Required: No Beliefs That Will Affect Care: None marital status: Current Living Situation: Family Current Living Situation Comment: family has apartment underneath patients home current occupational status: retired current occupation: Retired Feels Safe at Home: Yes Assistive Devices: Cane, Glasses, Hearing Aid - Bilateral, Nebulizer and Other Allergies Allergies Allergy/AdvReac Type Severity Reaction Status Date / Time Iodinated Contrast Media Allergy Severe Anaphylaxis Verified 08/09/23 10:12 Zetdykx-YCC-XdP Reductase Allergy Unknown MUSCLE Verified 08/09/23 10:12 Inhibitor ACHES [Hgdudnq-Ede-Spa Reductase Inhibitor] Home Meds Home Medications Medication Instructions Recorded Confirmed cholecalciferol (vitamin D3) 125 5,000 unit PO QAM 05/22/18 08/09/23 mcg (5,000 unit) tablet (Vitamin D3) clopidogrel 75 mg tablet (Plavix) 75 mg PO QAM 05/22/18 08/09/23 nitroglycerin 0.4 mg sublingual 0.4 mg sublingual UD PRN Chest Pain 05/22/18 08/09/23 tablet (Nitrostat) terazosin 2 mg capsule 2 mg PO HS 05/22/18 08/09/23 vitamin E 268 mg (400 unit) capsule 400 unit PO QAM 05/22/18 08/09/23 pyridoxine (vitamin B6) 100 mg 100 mg PO QAM 12/06/20 08/09/23 tablet (Vitamin B-6) fluocinonide 0.05 % topical cream 1 applic topical BID PRN Rash 12/31/20 08/09/23 sertraline 100 mg tablet 0 mg PO BID 01/07/21 08/09/23 aspirin 81 mg tablet,delayed 81 mg PO AMPM 01/10/21 08/09/23 release fluticasone propionate 50 2 spray intranasal DAILY PRN Nasal 01/10/21 08/09/23 mcg/actuation nasal Congestion spray,suspension Formulas Testosterone Cap 1 tab PO DAILY 12/16/22 08/09/23 alirocumab 150 mg/mL subcutaneous 150 mg subcut .[id number] 12/16/22 08/09/23 pen injector (Praluent Pen) allopurinol 300 mg tablet 150 mg PO QAM 12/16/22 08/09/23 amlodipine 10 mg tablet 10 mg PO QAM 12/16/22 08/09/23 cyanocobalamin (vitamin B-12) 1,000 mcg PO DAILY 12/16/22 08/09/23 1,000 mcg tablet (Vitamin B-12) famotidine 20 mg tablet 20 mg PO BID 12/16/22 08/09/23 metoprolol succinate 50 mg 50 mg PO QAM 12/16/22 08/09/23 tablet,extended release 24 hr nitroglycerin 0.6 mg/hr 0 patch topical DAILY 12/16/22 08/09/23 transdermal 24 hour patch pantoprazole 40 mg tablet,delayed 40 mg PO BID 12/16/22 08/09/23 release ranolazine 500 mg tablet,extended 500 mg PO BID 12/16/22 08/09/23 release,12 hr furosemide 20 mg tablet 20 mg PO DAILY PRN Edema 01/16/23 08/09/23 sacubitril 24 mg-valsartan 26 mg 1 tab PO BID 04/02/23 08/09/23 tablet (Entresto) Results & Data (ED) Vital Signs Vital Signs - 24 hr 08/09/23 07:54 08/09/23 08:00 08/09/23 08:01 Temperature 36.8 C Temperature Source Oral Pulse Rate 67 Pulse Rate [Apical] Pulse Rhythm Regular Pulse Strength Normal Respiratory Rate 15 Respiratory Effort / Characteristics Non-Labored Respiratory Depth Normal Respiratory Pattern Regular Blood Pressure 155/113 H Blood Pressure [Left Arm] Blood Pressure Mean 127 Blood Pressure Mean [Left Arm] Blood Pressure Position [Left Arm] Pulse Oximetry 93 94 94 Oxygen Delivery Method Room Air Room Air Room Air Sepsis Recent Fever Within 48 Hours No Sepsis New/Unexplained Change in Mental Status N/A Sepsis Action Taken by Nursing No Action Required Oxygen Flow Rate - Titration Pulse Oximetry Post Tiitration 08/09/23 08:05 08/09/23 08:17 08/09/23 10:00 Temperature Temperature Source Pulse Rate 60 Pulse Rate [Apical] Pulse Rhythm Pulse Strength Respiratory Rate Respiratory Effort / Characteristics Respiratory Depth Respiratory Pattern Blood Pressure Blood Pressure [Left Arm] 116/70 Blood Pressure Mean Blood Pressure Mean [Left Arm] 85 Blood Pressure Position [Left Arm] Pulse Oximetry 94 Oxygen Delivery Method Room Air Sepsis Recent Fever Within 48 Hours Sepsis New/Unexplained Change in Mental Status Sepsis Action Taken by Nursing Oxygen Flow Rate - Titration Pulse Oximetry Post Tiitration 08/09/23 11:30 08/09/23 12:19 08/09/23 13:00 Temperature Temperature Source Pulse Rate 62 Pulse Rate [Apical] 63 57 L Pulse Rhythm Pulse Strength Respiratory Rate 18 18 Respiratory Effort / Characteristics Respiratory Depth Normal Respiratory Pattern Blood Pressure Blood Pressure [Left Arm] 118/75 122/66 Blood Pressure Mean Blood Pressure Mean [Left Arm] 89 84 Blood Pressure Position [Left Arm] Lying Pulse Oximetry 93 92 Oxygen Delivery Method Room Air Room Air Sepsis Recent Fever Within 48 Hours Sepsis New/Unexplained Change in Mental Status Sepsis Action Taken by Nursing Oxygen Flow Rate - Titration Pulse Oximetry Post Tiitration 08/09/23 15:39 08/09/23 15:53 Temperature Temperature Source Pulse Rate Pulse Rate [Apical] 75 Pulse Rhythm Pulse Strength Respiratory Rate 18 Respiratory Effort / Characteristics Respiratory Depth Respiratory Pattern Blood Pressure Blood Pressure [Left Arm] 136/91 Blood Pressure Mean Blood Pressure Mean [Left Arm] 106 Blood Pressure Position [Left Arm] Pulse Oximetry 92 86 L Oxygen Delivery Method Room Air Room Air Sepsis Recent Fever Within 48 Hours Sepsis New/Unexplained Change in Mental Status Sepsis Action Taken by Nursing Oxygen Flow Rate - Titration 2 Pulse Oximetry Post Tiitration 95 Home Medications Current Medication List: was personally reviewed by me Laboratory Data Attestation: I reviewed the patient's lab results. 08/09/23 07:50 08/09/23 07:50 Lab Results 08/09/23 08/09/23 08/09/23 Range/Units 07:50 08:06 10:04 WBC 6.85 (4.8-10.8) K/ul RBC 4.68 L (4.70-6.10) M/uL Hgb 15.2 (14.0-18.0) g/dl Hct 43.7 (42.0-52.0) % MCV 93.4 (80.0-100.0) fL MCH 32.5 (25.0-34.0) pg MCHC 34.8 (32.0-36.0) g/dL RDW Std Deviation 42.8 (36.4-46.3) fL RDW Coeff of Long 12.4 (11.5-14.5) % Plt Count 127 L (130-400) K/uL MPV 10.7 (9.4-12.4) fL Immature Gran % (Auto) 0.1 % Neut % (Auto) 83.1 % Lymph % (Auto) 8.8 % Scott % (Auto) 7.3 % Eos % (Auto) 0.1 % Baso % (Auto) 0.6 % Neut # (Auto) 5.69 (1.40-6.50) K/uL Lymph # (Auto) 0.60 L (1.20-3.40) K/uL Scott # (Auto) 0.50 (0.11-0.59) K/uL Eos # (Auto) 0.01 (0.00-0.50) K/uL Baso # (Auto) 0.04 (0.00-0.20) K/uL Immature Gran # (Auto) 0.01 (0.01-0.20) K/uL PT 10.5 (9.0-12.0) Seconds INR 1.0 (0.9-1.1) APTT 28 (21-31) Seconds PTT Ratio 1.0 Sodium 135 L (136-145) mmol/L Potassium 4.5 (3.5-5.1) mmol/L Chloride 100 (98-107) mmol/L Carbon Dioxide 27 (21-32) mmol/L Anion Gap 8 (3-11) BUN 19 (6-23) mg/dl Creatinine 1.20 (0.6-1.4) mg/dl Est Cr Clr Drug Dosing 60.5 ml/min Est GFR ( Amer) 69.1 ml/min Est GFR (Non-Af Amer) 59.6 ml/min BUN/Creatinine Ratio 15.8 (10-20) Glucose 150 H (70-99(Fasting)) mg/dl Lactate 1.1 (0.4-2.0) mmol/L Calcium 9.1 (8.6-10.3) mg/dl Magnesium 2.3 (1.7-2.4) mg/dl Total Bilirubin 0.8 (0.2-1.0) mg/dl AST 14 (13-39) U/L ALT 11 (7-52) U/L Alkaline Phosphatase 42 (34-104) U/L Troponin I High Sens 10.0 (0-20) pg/ml Total Protein 7.2 (6.0-8.3) gm/dl Albumin 4.4 (3.4-5.0) gm/dl Globulin 2.8 (2.5-4.0) gm/dl Albumin/Globulin Ratio 1.6 (0.9-2) Adenovirus (PCR) Not Detected (NotDetected) Anaplasma Smear See Comment Babesia Smear See Comment B. pertussis DNA (PCR) Not Detected (NotDetected) B.parapertussis DNA PCR Not Detected (NotDetected) Lyme Disease IgG Ab Negative (Negative) Lyme Disease IgM Ab Negative (Negative) C. pneumoniae DNA (PCR) Not Detected (NotDetected) Coronavirus OC43 (PCR) Not Detected (NotDetected) Coronavirus HKU1 (PCR) Not Detected (NotDetected) Coronavirus 229E (PCR) Not Detected (NotDetected) SARS-CoV-2 (PCR) Not Detected (NotDetected) Coronavirus NL63 (PCR) Not Detected (NotDetected) Human Metapneumovir PCR Not Detected (NotDetected) Influenza Type A (PCR) Not Detected (NotDetected) Influenza Type B (PCR) Not Detected (NotDetected) M. pneumoniae (PCR) Not Detected (NotDetected) Parainfluenza 1 (PCR) Not Detected (NotDetected) Parainfluenza 2 (PCR) Not Detected (NotDetected) Parainfluenza 3 (PCR) Not Detected (NotDetected) Parainfluenza 4 (PCR) Not Detected (NotDetected) RSV (PCR) Not Detected (NotDetected) Entero/Rhino (PCR) Not Detected (NotDetected) Administered Medications Discontinued Medications Albuterol (Albuterol Hfa 8 Gm Inhaler) 2 puffs INH NOW ONE Stop: 08/09/23 07:55 Last Admin: 08/09/23 08:11 Dose: 2 puffs Documented By: ALISHA Dexamethasone Sodium Phosphate (DexamethasonePf 10 Mg/Ml Vial) 10 mg IV NOW ONE Stop: 08/09/23 15:15 Last Admin: 08/09/23 15:27 Dose: 10 mg Documented By: GETACHEW Gadobutrol (Gadobutrol 30ml Vial) 9 ml IV ONCE ONE Stop: 08/09/23 14:51 Last Admin: 08/09/23 14:48 Dose: 9 ml Documented By: KERI Ceftriaxone Sodium (Rocephin) 2,000 mg in 50 mls @ 100 mls/hr IV NOW STA Stop: 08/09/23 09:45 Last Infusion: 08/09/23 11:00 Dose: Infused Documented By: Admin: 08/09/23 10:08 Dose: 100 mls/hr Documented By: ALISHA Ketorolac Tromethamine (Ketorolac Tromethamine 15 Mg/Ml Vial) 10 mg IV NOW ONE Stop: 08/09/23 07:55 Last Admin: 08/09/23 08:11 Dose: 10 mg Documented By: ALISHA Morphine Sulfate (Morphine Sulfate 2 Mg/Ml Carp) 2 mg IV NOW STA Stop: 08/09/23 07:55 Last Admin: 08/09/23 08:11 Dose: 2 mg Documented By: ALISHA Morphine Sulfate (Morphine Sulfate 4 Mg/Ml 1 Ml Carp\\Vial) 4 mg IV NOW STA Stop: 08/09/23 14:10 Last Admin: 08/09/23 15:13 Dose: 4 mg Documented By: CAROLYNN Ondansetron HCl (Ondansetron Inj 2 Mg/Ml 2 Ml Vial) Confirm Administered Dose 4 mg .ROUTE .STK-MED ONE Stop: 08/09/23 07:51 Last Admin: 08/09/23 08:10 Dose: Not Given Documented By: ALISHA Imaging Data Radiologist's Impression: Chest X-Ray 08/09/23 07:54 XR chest 1V portable CLINICAL HISTORY: Dyspnea. COMPARISON STUDY: Chest radiograph April 02, 2023. FINDINGS: There are median sternotomy wires and mediastinal surgical clips. No pneumothorax or pleural effusion is present. There is no consolidation or evidence for pulmonary edema. Opacity along the left heart border favors atelectasis or epicardial fat pad. There are old right rib fractures. No pneumothorax or pleural effusion. IMPRESSION: No acute cardiopulmonary findings. ACT 112: Negative or not required by law. Electronically signed by: Marcel Chacon M.D. 08/09/2023 9:[address] 08/09/23 07:54 CT OF THE HEAD WITHOUT CONTRAST CLINICAL HISTORY: headache, on thinners COMPARISON STUDY: Head CT and MRI of the brain March 15, 2018. CT DOSE: 547.75 mGy.cm TECHNIQUE: Helical axial images of the head were obtained without IV contrast. Automated exposure control was utilized for the study. A dose lowering technique was utilized adhering to the principles of ALARA. FINDINGS: No acute intracranial hemorrhage is identified. The ventricular system is stable. Basal cisterns are patent. There are no extra-axial collections. Hypodensities within the left basal ganglia/anterior limb of the left internal capsule are chronic. Suspected chronic prevascular space within the left temporal lobe is unchanged. There are no findings to suggest acute territorial infarct. Apparent sulcal effacement within the bilateral superior parietal and frontal lobes is noted. The superior sagittal sinus is prominent but likely patent. IMPRESSION: 1. No acute intracranial hemorrhage. 2. Apparent sulcal effacement within the bilateral superior parietal and frontal lobes when compared to head CT of March 15, 2018. This is of questionable significance and may be artifactual. However, edema cannot be excluded. An MRI of the brain with and without contrast is recommended for further evaluation. 3. Prominence of the superior sagittal sinus. This is similar to prior CT and is likely within normal limits. However, thrombosis cannot be completely excluded. MRV at time of MRI is recommended. ACT 112: Negative or not required by law. Electronically signed by: Marcel Chacon M.D. 08/09/2023 9:02 AM Brain MRI 08/09/23 09:02 MRI OF THE BRAIN WITHOUT AND WITH IV CONTRAST CLINICAL HISTORY: Headaches. Dizziness. Abnormal CT. COMPARISON STUDY: MRI brain March 15, 2018. Head CT performed earlier today. TECHNIQUE: Utilizing a 1.5 Haritha magnet and dedicated coil, multiplanar, multiecho imaging of the brain was performed pre and postcontrast administration. IV administration of 9 mL of Gadavist contrast was uneventful. FINDINGS: There are no foci of restricted diffusion to suggest acute infarct. No acute intracranial hemorrhage, midline shift or mass effect is present. Ventricular system is unremarkable. Basal cisterns are patent. Flow-voids for the major intracranial vessels are present. There is no intracranial mass. No definite extra-axial collections. Scattered white matter T2 hyperintense foci favor small vessel disease. T2 hyperintense foci within left basal ganglia are unchanged and favor prominent perivascular spaces. Note is made of apparent reduced CSF volume overlying the convexities. The sulci are less prominent than on MRI of March 15, 2018. This finding is of uncertain significance. There is apparent mild pachymeningeal dural enhancement on the thin cut postcontrast sequence. IMPRESSION: 1. No evidence for acute infarct. No acute intracranial hemorrhage. 2. Apparent reduced CSF volume overlying the convexities with decreased size of the sulci since MRI of March 15, 2018. Possible mild pachymeningeal enhancement. These findings are nonspecific although could be seen in the setting of intracranial hypotension. Although less likely, an infectious process cannot be completely excluded. ACT 112: Negative or not required by law. Electronically signed by: Marcel Chacon M.D. 08/09/2023 3:15 PM Head/Brain Mag Res Venography 08/09/23 09:02 MR venography head wo con CLINICAL HISTORY: Possible thrombosis. Headache. COMPARISON STUDY: Head CT August 09, 2023. MRI of the brain March 15, 2018. TECHNIQUE: Utilizing a 1.5 Haritha magnet and [id number] technique, MRV of the head was obtained. FINDINGS: Please note that the MRI of the brain will be reported separately. The superior sagittal sinus is patent. The anterior aspect of the superior sagittal sinus is diminutive however this is unchanged since MRI of March 15, 2018. The left transverse sinus is also a diminutive, unchanged since prior MRI. The right transverse sinus and right sigmoid sinus are patent. There is no evidence for dural sinus thrombosis. IMPRESSION: No evidence for dural sinus thrombosis. ACT 112: Negative or not required by law. Electronically signed by: Marcel Chacon M.D. 08/09/2023 2:58 PM Discharge Plan Visit Data Chief Complaint: Chest Pain Stated Complaint: HEADACHE, NAUSEA, COUGH ED Provider: Tyler Daniels Discharge Problem: SOB (shortness of breath), Headache, Cough, Nausea Patient Disposition: Admitted As Inpatient Condition: Fair Forms Stand Alone Forms: [facility] [employer] Prescriptions Prescriptions: No Action fluocinonide 0.05 % cream 1 applic topical BID PRN (Reason: Rash) sertraline 100 mg tablet 0 mg PO BID Patient Comments: took 50 mg this morning Rx Instructions: 100mg by mouth in the morning and 50mg by mouth at bedtime terazosin 2 mg Capsule 2 mg PO HS cholecalciferol (vitamin D3) [Vitamin D3] 5,000 unit Tablet 5,000 unit PO QAM clopidogrel [Plavix] 75 mg Tablet 75 mg PO QAM nitroglycerin [Nitrostat] 0.4 mg Tablet, Sublingual 0.4 mg Sublingual UD PRN (Reason: Chest Pain) Rx Instructions: ONE TABLET UNDER THE TONGUE EVERY 5 MINUTES UP TO 3 DOSES FOR CHEST PAIN. vitamin E 400 unit Capsule 400 unit PO QAM fluticasone propionate 50 mcg/actuation [place],Suspension 2 spray INTRANASAL DAILY PRN (Reason: Nasal Congestion) aspirin 81 mg Tablet,Delayed Release (Dr/Ec) 81 mg PO AMPM Entresto 24-26 mg Tablet 1 tab PO BID pyridoxine (vitamin B6) [Vitamin B-6] 100 mg Tablet 100 mg PO QAM nitroglycerin 0.6 mg/hr patch 24 hour 0 patch topical DAILY Rx Instructions: Patient wears patch for 12 hours on 12 hours off. Original directions: 1 patch topically daily metoprolol succinate 50 mg tablet extended release 24 hr 50 mg PO QAM cyanocobalamin (vitamin B-12) [Vitamin B-12] 1,000 mcg Tablet 1,000 mcg PO DAILY famotidine 20 mg tablet 20 mg PO BID pantoprazole 40 mg tablet,delayed release (DR/EC) 40 mg PO BID Praluent Pen 150 mg/mL Pen Injector 150 mg SUBCUT .[id number] Patient Comments: Due 12/17 amlodipine 10 mg tablet 10 mg PO QAM allopurinol 300 mg tablet 150 mg PO QAM Rx Instructions: Take 150mg by mouth in the morning and 300mg by mouth in the evening ranolazine 500 mg tablet extended release 12 hr 500 mg PO BID Formulas Testosterone Cap 1 tab PO DAILY furosemide 20 mg tablet 20 mg PO DAILY PRN (Reason: Edema) Referrals Referrals: Miguel Suarez MD [Primary Care Provider] - Discharge Problem: Headache Qualifiers: Headache type: unspecified Headache chronicity pattern: acute headache I ntractability: intractable Qualified Code(s): R51.9 - Headache, unspecified Cough Qualifiers: Cough type: acute Qualified Code(s): R05.1 - Acute cough
[2023-08-09 08:14] LABS: Basophils # (auto) 0.04 K/uL (0.00-0.20); Basophils % (auto) 0.6 %; Eosinophils # (auto) 0.01 K/uL (0.00-0.50); Eosinophils % (auto) 0.1 %; Hematocrit (blood only) 43.7 % (42.0-52.0); Hemoglobin 15.2 g/dl (14.0-18.0); Immature Granulocytes # (auto) 0.01 K/uL (0.01-0.20); Immature Granulocytes % (auto) 0.1 %; Lymphocytes % (auto) 8.8 %; Mean Corpuscular Hemoglobin 32.5 pg (25.0-34.0); Mean Corpuscular Hgb Conc 34.8 g/dL (32.0-36.0); Mean Corpuscular Volume 93.4 fL (80.0-100.0); Mean Platelet Volume 10.7 fL (9.4-12.4); Monocytes % (auto) 7.3 %; Neutrophils # (auto) 5.69 K/uL (1.40-6.50); Neutrophils % (auto) 83.1 %; Platelet Count 127 K/uL (130-400); RDW Coefficient of Variation 12.4 % (11.5-14.5); RDW Standard Deviation 42.8 fL (36.4-46.3); Red Blood Count 4.68 M/uL (4.70-6.10); White Blood Count 6.85 K/ul (4.8-10.8)
[2023-08-09 08:27] LABS: Albumin Globulin Ratio 1.6 (0.9-2); Albumin Level 4.4 gm/dl (3.4-5.0); BUN Creatinine Ratio 15.8 (10-20); Bilirubin,Total 0.8 mg/dl (0.2-1.0); Calcium 9.1 mg/dl (8.6-10.3); Creatinine Clr Calc Pharmacy 60.5 ml/min; Est GFR (African American) 69.1 ml/min; Est GFR (Non-African American) 59.6 ml/min; Globulin 2.8 gm/dl (2.5-4.0); Magnesium 2.3 mg/dl (1.7-2.4); Potassium 4.5 mmol/L (3.5-5.1); Total Protein 7.2 gm/dl (6.0-8.3)
[2023-08-09 08:39] LABS: Partial Thromboplastin Time 28 Seconds (21-31); Prothrombin Time 10.5 Seconds (9.0-12.0)
[2023-08-09 09:02] LABS: Adenovirus PCR Not Detected (NotDetected); Bordetella parapertussis PCR Not Detected (NotDetected); Bordetella pertussis PCR Not Detected (NotDetected); Chlamydia pneumoniae PCR Not Detected (NotDetected); Coronavirus 229E PCR Not Detected (NotDetected); Coronavirus CoV-2 (COVID19)PCR Not Detected (NotDetected); Coronavirus HKU1 PCR Not Detected (NotDetected); Coronavirus NL63 PCR Not Detected (NotDetected); Coronavirus OC43PCR Not Detected (NotDetected); Human Metapneumovirus PCR Not Detected (NotDetected); Influenza A PCR Not Detected (NotDetected); Influenza B PCR Not Detected (NotDetected); Mycoplasma pneumoniae PCR Not Detected (NotDetected); Parainfluenza Virus 1 PCR Not Detected (NotDetected); Parainfluenza Virus 2 PCR Not Detected (NotDetected); Parainfluenza Virus 3 PCR Not Detected (NotDetected); Parainfluenza Virus 4 PCR Not Detected (NotDetected); Respiratory Syncytial VirusPCR Not Detected (NotDetected); Rhinovirus/Enterovirus PCR Not Detected (NotDetected)
--- NOTE | 2023-08-09 09:04 | CT Scan Report ---
CT OF THE HEAD WITHOUT CONTRAST CLINICAL HISTORY: headache, on thinners COMPARISON STUDY: Head CT and MRI of the brain March 15, 2018. CT DOSE: 547.75 mGy.cm TECHNIQUE: Helical axial images of the head were obtained without IV contrast. Automated exposure con trol was utilized for the study. A dose lowering technique was utilized adhering to the principles o f ALARA. FINDINGS: No acute intracranial hemorrhage is identified. The ventricular system is stable. Basal cis terns are patent. There are no extra-axial collections. Hypodensities within the left basal ganglia/a nterior limb of the left internal capsule are chronic. Suspected chronic prevascular space within the left temporal lobe is unchanged. There are no findings to suggest acute territorial infarct. Apparen t sulcal effacement within the bilateral superior parietal and frontal lobes is noted. The superior s agittal sinus is prominent but likely patent. IMPRESSION: 1. No acute intracranial hemorrhage. 2. Apparent sulcal effacement within the bilateral superior parietal and frontal lobes when compared to head CT of March 15, 2018. This is of questionable significance and may be artifactual. However, e zoltan cannot be excluded. An MRI of the brain with and without contrast is recommended for further sue luation. 3. Prominence of the superior sagittal sinus. This is similar to prior CT and is likely within normal limits. However, thrombosis cannot be completely excluded. MRV at time of MRI is recommended. ACT 112: Negative or not required by law. Electronically signed by: Marcel Chacon M.D. 08/09/2023 9:02 AM
--- NOTE | 2023-08-09 09:14 | XRay Report ---
XR chest 1V portable CLINICAL HISTORY: Dyspnea. COMPARISON STUDY: Chest radiograph April 02, 2023. FINDINGS: There are median sternotomy wires and mediastinal surgical clips. No pneumothorax or pleura l effusion is present. There is no consolidation or evidence for pulmonary edema. Opacity along the l eft heart border favors atelectasis or epicardial fat pad. There are old right rib fractures. No pneu mothorax or pleural effusion. IMPRESSION: No acute cardiopulmonary findings. ACT 112: Negative or not required by law. Electronically signed by: Marcel Chacon M.D. 08/09/2023 9:13 AM
[2023-08-09] MEDS ORDERED: cefTRIAXone SODIUM 2,000 MG/50 ML BAG IV STA (09:16)
[2023-08-09] MEDS ORDERED: MoRPHine SULFATE 4 MG/ML 1 ML CARP\\VIAL IV STA (14:09)
--- NOTE | 2023-08-09 14:43 | Electrocardiogram Report ---
Test Reason : Blood Pressure : / mmHG Vent. Rate : 071 BPM Atrial Rate : 071 BPM P-R Int : 218 ms QRS Dur : 104 ms QT Int : 382 ms P-R-T Axes : 069 008 103 degrees QTc Int : 415 ms Sinus rhythm with 1st degree A-V block Old Inferior infarct (cited on or before 16-JAN-2023) ST depression in Lateral leads Abnormal ECG When compared with ECG of 02-APR-2023 11:31, No significant change was found Confirmed by Yoel Leonarod ([id number]) on 08/09/2023 2:42:26 PM Referred By: REFERRED SELF Confirmed By:Yoel Leonardo
[2023-08-09] MEDS ORDERED: GADOBUTROL 30ML VIAL IV ONE (14:50)
--- NOTE | 2023-08-09 15:00 | Magnetic Resonance Report ---
MR venography head wo con CLINICAL HISTORY: Possible thrombosis. Headache. COMPARISON STUDY: Head CT August 09, 2023. MRI of the brain March 15, 2018. TECHNIQUE: Utilizing a 1.5 Haritha magnet and [id number]-[id number]-[id number] technique, MRV of the head was obtained. FINDINGS: Please note that the MRI of the brain will be reported separately. The superior sagittal si nus is patent. The anterior aspect of the superior sagittal sinus is diminutive however this is uncha nged since MRI of March 15, 2018. The left transverse sinus is also a diminutive, unchanged since emely or MRI. The right transverse sinus and right sigmoid sinus are patent. There is no evidence for dural sinus thrombosis. IMPRESSION: No evidence for dural sinus thrombosis. ACT 112: Negative or not required by law. Electronically signed by: Marcel Chacon M.D. 08/09/2023 2:58 PM
[2023-08-09] MEDS ORDERED: dexAMETHasone**PF** 10 MG/ML VIAL IV ONE (15:14)
--- NOTE | 2023-08-09 15:16 | Magnetic Resonance Report ---
MRI OF THE BRAIN WITHOUT AND WITH IV CONTRAST CLINICAL HISTORY: Headaches. Dizziness. Abnormal CT. COMPARISON STUDY: MRI brain March 15, 2018. Head CT performed earlier today. TECHNIQUE: Utilizing a 1.5 Haritha magnet and dedicated coil, multiplanar, multiecho imaging of the br ain was performed pre and postcontrast administration. IV administration of 9 mL of Gadavist contras t was uneventful. FINDINGS: There are no foci of restricted diffusion to suggest acute infarct. No acute intracranial h emorrhage, midline shift or mass effect is present. Ventricular system is unremarkable. Basal cistern s are patent. Flow-voids for the major intracranial vessels are present. There is no intracranial mas s. No definite extra-axial collections. Scattered white matter T2 hyperintense foci favor small vesse l disease. T2 hyperintense foci within left basal ganglia are unchanged and favor prominent perivascu lar spaces. Note is made of apparent reduced CSF volume overlying the convexities. The sulci are less prominent than on MRI of March 15, 2018. This finding is of uncertain significance. There is apparen t mild pachymeningeal dural enhancement on the thin cut postcontrast sequence. IMPRESSION: 1. No evidence for acute infarct. No acute intracranial hemorrhage. 2. Apparent reduced CSF volume overlying the convexities with decreased size of the sulci since MRI o f March 15, 2018. Possible mild pachymeningeal enhancement. These findings are nonspecific although c ould be seen in the setting of intracranial hypotension. Although less likely, an infectious process cannot be completely excluded. ACT 112: Negative or not required by law. Electronically signed by: Marcel Chacon M.D. 08/09/2023 3:15 PM
[2023-08-09 15:39] LABS: Lyme Ab IgG w/WB Rflx Negative (Negative); Lyme Ab IgM w/WB Rflx Negative (Negative)
[2023-08-09] MEDS ORDERED: FUROSEMIDE 20 MG TAB PO PRN (17:28)
[2023-08-09 18:07] LABS: Basophils # (auto) 0.03 K/uL (0.00-0.20); Basophils % (auto) 0.5 %; Eosinophils # (auto) 0.01 K/uL (0.00-0.50); Eosinophils % (auto) 0.2 %; Hemoglobin 14.7 g/dl (14.0-18.0); Immature Granulocytes # (auto) 0.02 K/uL (0.01-0.20); Immature Granulocytes % (auto) 0.3 %; Lymphocytes # (auto) 0.45 K/uL (1.20-3.40); Lymphocytes % (auto) 7.3 %; Mean Corpuscular Hemoglobin 32.4 pg (25.0-34.0); Mean Corpuscular Hgb Conc 34.2 g/dL (32.0-36.0); Mean Corpuscular Volume 94.7 fL (80.0-100.0); Mean Platelet Volume 10.2 fL (9.4-12.4); Monocytes # (auto) 0.17 K/uL (0.11-0.59); Monocytes % (auto) 2.7 %; Neutrophils # (auto) 5.52 K/uL (1.40-6.50); Platelet Count 124 K/uL (130-400); RDW Coefficient of Variation 12.3 % (11.5-14.5); RDW Standard Deviation 42.5 fL (36.4-46.3); Red Blood Count 4.54 M/uL (4.70-6.10)
[2023-08-09 18:19] LABS: BUN Creatinine Ratio 19.2 (10-20); Calcium 9.2 mg/dl (8.6-10.3); Creatinine Clr Calc Pharmacy 55.9 ml/min; Est GFR (African American) 62.7 ml/min; Est GFR (Non-African American) 54.1 ml/min; Potassium 4.6 mmol/L (3.5-5.1)
[2023-08-09] MEDS ORDERED: LEVALBUTEROL 1.25MG/0.5ML NEB NEB SCH ×2 (19:00)
[2023-08-09] MEDS ORDERED: LEVALBUTEROL 1.25 MG/3 ML NEB ONE (19:20)
--- NOTE | 2023-08-09 19:43 | History & Physical Report ---
Date of Service August 09, 2023 Assessment & Plan (1) Acute bronchitis: Plan: 73-year-old male with history of CAD, status post stent placement, CABG, CHF systolic type, colon cancer status post surgery Alcoholism, recurrent small bowel obstructions, presenting with cough and headaches x 1 week. Acute bronchitis Chest x-ray FINDINGS: There are median sternotomy wires and mediastinal surgical clips. No pneumothorax or pleural effusion is present. There is no consolidation or evidence for pulmonary edema. Opacity along the left heart border favors atelectasis or epicardial fat pad. There are old right rib fractures. No pneumothorax or pleural effusion. IMPRESSION: No acute cardiopulmonary findings. Ceftriaxone plus doxycycline Nebs every 6 hours Mucinex Flonase 0 spirometry, flutter valve Monitor closely Frontal headaches Brain MRI: Within normal limits per neurologist Likely secondary to upper respiratory tract infection Management per above As needed Tylenol, tramadol History of CAD, status post stent, CABG Troponins negative No active chest pain Continue usual regimen of aspirin, Plavix, ranolazine, metoprolol History of chronic systolic CHF Euvolemic Continue Entresto, Colon cancer status post surgery Alcoholism Recurrent small bowel obstruction No GI symptoms Continue usual other medications include sertraline, etc. Admission and Anticipated Discharge Date Admission Date: August 09, 2023 History of Present Illness Primary Care Provider: Miguel Suarez MD 73-year-old male with history of CAD, status post stent placement, CABG, CHF systolic type, colon cancer status post surgery Alcoholism, recurrent small bowel obstructions, presenting with cough and headaches x 1 week. Patient reports that since a week ago, he has been having progressive frontal headaches associated with cough, nasal drainage. No fevers or chills, nausea or vomiting but has noticed that appetite has been decreasing due to above symptoms. Initial CT head showing possibly reduced CSF volume, MRI performed. [facility] neurologist Dr. Gorman reviewed brain MRI, felt to be within normal limits. Patient noted to be wheezing on admission, given nebulizer treatments as well as IV antibiotics. On exam, patient is seen on room air, comfortable. States he somewhat feels improved compared to admission after the initial treatments provided. No active shortness of breath, still having some intermittent frontal headaches with cough. No other new symptom. Allergies Allergy/AdvReac Type Severity Reaction Status Date / Time Iodinated Contrast Media Allergy Severe Anaphylaxis Verified 08/09/23 10:12 Miwhibp-JHR-IuW Reductase Allergy Unknown MUSCLE Verified 08/09/23 10:12 Inhibitor ACHES [Nyqxoeg-Qmt-Dls Reductase Inhibitor] Home Medications Medication Instructions Recorded Confirmed Type cholecalciferol (vitamin D3) 125 5,000 unit PO QAM 05/22/18 08/09/23 History mcg (5,000 unit) tablet (Vitamin D3) clopidogrel 75 mg tablet (Plavix) 75 mg PO QAM 05/22/18 08/09/23 History nitroglycerin 0.4 mg sublingual 0.4 mg sublingual UD PRN Chest Pain 05/22/18 08/09/23 History tablet (Nitrostat) terazosin 2 mg capsule 2 mg PO HS 05/22/18 08/09/23 History vitamin E 268 mg (400 unit) capsule 400 unit PO QAM 05/22/18 08/09/23 History pyridoxine (vitamin B6) 100 mg 100 mg PO QAM 12/06/20 08/09/23 History tablet (Vitamin B-6) fluocinonide 0.05 % topical cream 1 applic topical BID PRN Rash 12/31/20 08/09/23 History sertraline 100 mg tablet 0 mg PO BID 01/07/21 08/09/23 History aspirin 81 mg tablet,delayed 81 mg PO AMPM 01/10/21 08/09/23 History release fluticasone propionate 50 2 spray intranasal DAILY PRN Nasal 01/10/21 08/09/23 History mcg/actuation nasal Congestion spray,suspension Formulas Testosterone Cap 1 tab PO DAILY 12/16/22 08/09/23 History alirocumab 150 mg/mL subcutaneous 150 mg subcut .[id number] 12/16/22 08/09/23 History pen injector (Praluent Pen) allopurinol 300 mg tablet 150 mg PO QAM 12/16/22 08/09/23 History amlodipine 10 mg tablet 10 mg PO QAM 12/16/22 08/09/23 History cyanocobalamin (vitamin B-12) 1,000 mcg PO DAILY 12/16/22 08/09/23 History 1,000 mcg tablet (Vitamin B-12) famotidine 20 mg tablet 20 mg PO BID 12/16/22 08/09/23 History metoprolol succinate 50 mg 50 mg PO QAM 12/16/22 08/09/23 History tablet,extended release 24 hr nitroglycerin 0.6 mg/hr 0 patch topical DAILY 12/16/22 08/09/23 History transdermal 24 hour patch pantoprazole 40 mg tablet,delayed 40 mg PO BID 12/16/22 08/09/23 History release ranolazine 500 mg tablet,extended 500 mg PO BID 12/16/22 08/09/23 History release,12 hr furosemide 20 mg tablet 20 mg PO DAILY PRN Edema 01/16/23 08/09/23 History sacubitril 24 mg-valsartan 26 mg 1 tab PO BID 04/02/23 08/09/23 History tablet (Entresto) Past Med/Surg History Medical History Myocardial Infarction 11/20/2022 Nocturnal hypoxia BPH with obstruction/lower urinary tract symptoms Temporomandibular joint disorder CLICKS NO LOCKING Prediabetes Diet controlled History of intestinal obstruction No recent issues History of colon cancer dx 2016; treated surgically + oral chemo History of TMJ disorder Occ jaw clicking - no jaw locking Hearing deficit [place] Has hearing aids - not wearing hearing aids Depression Anxiety History of TIA (transient ischemic attack) -"SHOWS 7 ON SCANS" PER PT-F/U DR On home oxygen therapy 2 LPM qHS- does not always use secondary to nasal dryness History of COVID-19 08/2020; asymptomatic -TESTED BY [facility] Chronic idiopathic thrombocytopenia F/U PCP BPH (benign prostatic hyperplasia) Gout No current issues Dyslipidemia On injectable medications - cannot tolerate statins GERD (gastroesophageal reflux disease) Well controlled and stable with med HTN (hypertension) CAD (coronary artery disease) "1992 - CABG x 5 09/2016 - [facility] to SVG of 10/2016 - repeat cath, no lesions amenable to intervention, medical management recommended" Follows with Dr. Kaiser Surgical History H/O arthroscopic knee surgery mult BL H/O heart artery stent x 1 H/O toe surgery History of cardiac catheterization 2016 [facility] - 1 stent History of carpal tunnel surgery History of colonoscopy History of partial colectomy History of tonsillectomy and adenoidectomy S/P CABG x 5 1992 [facility] [place] Family History Father Diabetes Esophagus cancer Stomach cancer Heart disease Other No family history of adverse response to anesthesia Social History Smoking Status: Former smoker Tobacco Type: Cigarettes Second Hand Exposure: No; Do You Dip or Chew Tobacco: No; Hx Alcohol Use: Yes Alcohol type: hard liquor Hx Substance Use: No Preferred Language: Croatian Communication Ability: Effective [employer] Required: No Beliefs That Will Affect Care: None marital status: Current Living Situation: Family Current Living Situation Comment: family has apartment underneath patients home current occupational status: retired current occupation: Retired Other Information That Helps Us Care for You: No Feels Safe at Home: Yes Safety Concerns: Feels Safe At This Time Assistive Devices: Oxygen - at Night Review of Systems Review of Systems: all noted and negative except for above Physical Exam Physical Exam: General- oriented x 3, not in distress, speaks in sentences with no effort or accessory muscle use Eyes- anicteric Neck- no JVD Lungs-very faint, very intermittent wheeze scattered bilaterally Heart- normal rate, regular rhythm; no murmurs Abdomen- normal bowel sounds, nondistended, soft, nontender Extremities- no pretibial edema, no calf tenderness Neuro- alert, oriented x 3; no gross focal neurologic deficits Skin- warm & dry Results & Data Results & Data Vital Signs (Past 12 Hours) Vital Signs Temp Pulse Pulse Resp BP BP Pulse Ox 08/09/23 18:53 15 08/09/23 18:50 73 20 93 08/09/23 18:40 69 17 93 08/09/23 18:37 70 15 129/75 94 08/09/23 18:37 08/09/23 18:30 76 13 93 08/09/23 18:28 36.8 C 76 14 129/75 93 08/09/23 18:20 71 17 08/09/23 18:15 72 21 94 08/09/23 18:15 129/75 08/09/23 18:10 71 12 90 08/09/23 18:00 73 90 08/09/23 18:00 76 22 126/79 93 08/09/23 17:50 74 90 08/09/23 17:46 79 13 92 08/09/23 17:30 109/69 08/09/23 17:30 73 17 92 08/09/23 17:20 77 16 95 08/09/23 17:10 72 17 93 08/09/23 17:05 77 08/09/23 17:01 117/66 08/09/23 17:01 75 17 94 08/09/23 17:00 76 93 08/09/23 16:50 73 20 93 08/09/23 16:40 73 20 93 08/09/23 16:30 74 18 93 08/09/23 16:30 112/84 08/09/23 16:20 73 17 94 08/09/23 16:10 77 16 94 08/09/23 16:00 74 21 95 08/09/23 16:00 129/78 08/09/23 15:53 86 L 08/09/23 15:50 77 21 08/09/23 15:40 72 12 08/09/23 15:39 75 18 136/91 92 08/09/23 15:31 87 21 08/09/23 15:31 136/91 08/09/23 15:30 75 15 92 08/09/23 15:20 78 14 08/09/23 15:10 90 24 08/09/23 15:09 72 17 08/09/23 15:09 163/97 H 08/09/23 15:08 71 08/09/23 13:50 61 21 08/09/23 13:40 56 L 16 08/09/23 13:30 56 L 18 08/09/23 13:30 132/66 08/09/23 13:20 56 L 18 08/09/23 13:10 58 L 20 08/09/23 13:00 124/70 08/09/23 13:00 56 L 14 08/09/23 13:00 57 L 18 122/66 92 08/09/23 12:50 54 L 19 08/09/23 12:40 56 L 19 08/09/23 12:30 64 16 08/09/23 12:30 121/79 08/09/23 12:20 65 12 08/09/23 12:19 62 08/09/23 12:10 69 18 08/09/23 12:00 125/83 08/09/23 11:30 63 18 118/75 93 08/09/23 10:00 116/70 08/09/23 08:17 60 08/09/23 08:05 94 08/09/23 08:01 94 08/09/23 08:00 94 08/09/23 07:54 36.8 C 67 15 155/113 H 93 Pulse Ox O2 Del Method O2 Del Method O2 Flow Rate O2 Flow Rate 08/09/23 18:53 08/09/23 18:50 08/09/23 18:40 08/09/23 18:37 Nasal Cannula 2 08/09/23 18:37 94 Nasal Cannula 2 08/09/23 18:30 08/09/23 18:28 Nasal Cannula 2 08/09/23 18:20 08/09/23 18:15 08/09/23 18:15 08/09/23 18:10 08/09/23 18:00 08/09/23 18:00 Room Air 08/09/23 17:50 08/09/23 17:46 08/09/23 17:30 08/09/23 17:30 08/09/23 17:20 08/09/23 17:10 08/09/23 17:05 08/09/23 17:01 08/09/23 17:01 08/09/23 17:00 08/09/23 16:50 08/09/23 16:40 08/09/23 16:30 08/09/23 16:30 08/09/23 16:20 08/09/23 16:10 08/09/23 16:00 08/09/23 16:00 08/09/23 15:53 Room Air 08/09/23 15:50 08/09/23 15:40 08/09/23 15:39 Room Air 08/09/23 15:31 08/09/23 15:31 08/09/23 15:30 08/09/23 15:20 08/09/23 15:10 08/09/23 15:09 08/09/23 15:09 08/09/23 15:08 08/09/23 13:50 08/09/23 13:40 08/09/23 13:30 08/09/23 13:30 08/09/23 13:20 08/09/23 13:10 08/09/23 13:00 08/09/23 13:00 08/09/23 13:00 Room Air 08/09/23 12:50 08/09/23 12:40 08/09/23 12:30 08/09/23 12:30 08/09/23 12:20 08/09/23 12:19 08/09/23 12:10 08/09/23 12:00 08/09/23 11:30 Room Air 08/09/23 10:00 08/09/23 08:17 08/09/23 08:05 Room Air 08/09/23 08:01 Room Air 08/09/23 08:00 Room Air 08/09/23 07:54 Room Air
[2023-08-09] MEDS: LEVALBUTEROL 1.25 MG/3 ML NEB NEB SCH (19:59)
[2023-08-09] MEDS: TERAZOSIN HCL 1 MG CAP PO SCH (20:37)
[2023-08-09] MEDS: guaiFENesin 600 MG TABCR PO SCH (20:38)
[2023-08-09] MEDS: RANOLAZINE 500 MG ER TAB PO SCH (20:38)
[2023-08-09] MEDS: FAMOTIDINE 20 MG TAB PO SCH (20:38)
[2023-08-09] MEDS: DOXYCYCLINE HYCLATE 100 MG CAP PO SCH (20:38)
[2023-08-09] MEDS: ASPIRIN 81 MG ECTAB PO SCH (20:38)
[2023-08-09] MEDS: PANTOprazole 40 MG TAB PO SCH (20:38)
[2023-08-09] MEDS: SERTRALINE HCL 50 MG TABLET PO SCH (20:38)
[2023-08-09] MEDS: VALSARTAN/SACUBITRIL 26/24MG TAB PO SCH (20:38)
[2023-08-10] MEDS: ACETAMINOPHEN 500 MG TAB PO PRN ×3 (00:33→20:45)
[2023-08-10] MEDS: LEVALBUTEROL 1.25 MG/3 ML NEB NEB SCH ×4 (00:41→19:26)
[2023-08-10 06:39] LABS: Basophils # (auto) 0.01 K/uL (0.00-0.20); Basophils % (auto) 0.2 %; Hematocrit (blood only) 40.4 % (42.0-52.0); Immature Granulocytes # (auto) 0.01 K/uL (0.01-0.20); Immature Granulocytes % (auto) 0.2 %; Lymphocytes # (auto) 0.46 K/uL (1.20-3.40); Lymphocytes % (auto) 9.6 %; Mean Corpuscular Hemoglobin 32.3 pg (25.0-34.0); Mean Corpuscular Hgb Conc 34.7 g/dL (32.0-36.0); Mean Corpuscular Volume 93.3 fL (80.0-100.0); Mean Platelet Volume 10.6 fL (9.4-12.4); Monocytes # (auto) 0.42 K/uL (0.11-0.59); Monocytes % (auto) 8.7 %; Neutrophils # (auto) 3.91 K/uL (1.40-6.50); Neutrophils % (auto) 81.3 %; Platelet Count 120 K/uL (130-400); RDW Coefficient of Variation 12.2 % (11.5-14.5); Red Blood Count 4.33 M/uL (4.70-6.10); White Blood Count 4.81 K/ul (4.8-10.8)
[2023-08-10 06:54] LABS: A calco-baum cmplx NotReported Not Detected (NotDetected); Bact fragilis Not Reported Not Detected (NotDetected); Blood Culture Id Panel See PCR Comment (NotDetected); C auris Not Reported Not Detected (NotDetected); Calbicans Not Reported Not Detected (NotDetected); Candida glabrata Not Reported Not Detected (NotDetected); Candida krusei Not Reported Not Detected (NotDetected); Cneoformans/gatti Not Reported Not Detected (NotDetected); Cparapsilosis Not Reported Not Detected (NotDetected); E cloacae compx Not Reported Not Detected (NotDetected); Efaecalis Not Reported Not Detected (NotDetected); Efaecium Not Reported Not Detected (NotDetected); Enterobacterales Not Reported Not Detected (NotDetected); Escherichia coli Not Reported Not Detected (NotDetected); H influenzae Not Reported Not Detected (NotDetected); K aerogenes Not Reported Not Detected (NotDetected); Koxytoca Not Reported Not Detected (NotDetected); Kpneumoniae grp Not Reported Not Detected (NotDetected); Lmonocyt Not Reported Not Detected (NotDetected); N meningitidis Not Reported Not Detected (NotDetected); P aeruginosa Not Reported Not Detected (NotDetected); Proteus spp Not Reported Not Detected (NotDetected); Salmonella spp Not Reported Not Detected (NotDetected); Smarcescens Not Reported Not Detected (NotDetected); Staph lugdunensis Not Reported Not Detected (NotDetected); Staph spp. Not Reported DETECTED (NotDetected); Staphaureus Not Reported Not Detected (NotDetected); Staphepi Not Reported DETECTED (NotDetected); Staphylococcus spp. DETECTED (NotDetected); Stenmaltophilia Not Reported Not Detected (NotDetected); Strep agal(GrpB) Not Reported Not Detected (NotDetected); Strep pneum Not Reported Not Detected (NotDetected); Strep pyog (GrpA) Not Reported Not Detected (NotDetected); Strep spp Not Reported Not Detected (NotDetected); mecAC Resistant Gene Not Detected (NotDetected)
[2023-08-10 06:57] LABS: BUN Creatinine Ratio 20.3 (10-20); Calcium 9.1 mg/dl (8.6-10.3); Creatinine Clr Calc Pharmacy 48.7 ml/min; Est GFR (African American) 53.6 ml/min; Est GFR (Non-African American) 46.3 ml/min; Potassium 4.5 mmol/L (3.5-5.1)
[2023-08-10 07:17] LABS: Staphylococcus epidermidis DETECTED (NotDetected)
[2023-08-10] MEDS: cefTRIAXone SODIUM 2,000 MG in DEXTROSE 5 % MINI-B 50 ML IV SCH (09:21)
[2023-08-10] MEDS: FAMOTIDINE 20 MG TAB PO SCH ×2 (09:24→20:46)
[2023-08-10] MEDS: ASPIRIN 81 MG ECTAB PO SCH ×2 (09:24→20:47)
[2023-08-10] MEDS: RANOLAZINE 500 MG ER TAB PO SCH ×2 (09:24→20:47)
[2023-08-10] MEDS: METOPROLOL SUCC 50MG EXT REL TAB PO SCH (09:24)
[2023-08-10] MEDS: PANTOprazole 40 MG TAB PO SCH ×2 (09:25→20:47)
[2023-08-10] MEDS: CLOPIDOGREL BISULFATE 75 MG TAB PO SCH (09:25)
[2023-08-10] MEDS: VALSARTAN/SACUBITRIL 26/24MG TAB PO SCH ×2 (09:25→20:47)
[2023-08-10] MEDS: amLODIPine BESYLATE 5 MG TAB PO SCH (09:25)
[2023-08-10] MEDS: guaiFENesin 600 MG TABCR PO SCH ×2 (09:25→20:46)
[2023-08-10] MEDS: DOXYCYCLINE HYCLATE 100 MG CAP PO SCH ×2 (09:25→20:46)
[2023-08-10] MEDS: FLUTICASONE PROPIONATE NA SPR 16 GM BTL SCH ×2 (09:49→20:45)
[2023-08-10] MEDS: SERTRALINE HCL 100 MG TABLET PO SCH (09:49)
--- NOTE | 2023-08-10 14:19 | Neurology Consultation ---
Date of Consultation August 10, 2023 Assessment & Plan (1) Headache: Bifrontal headache in the setting of presumed viral illness. No abnormality noted on MRI/MRV including contrast is reassuring that there is no central process. Headache characteristics are benign. Suggest it is multifactorial including vision related, dehydration and post-viral. Continue supportive care, avoid long-term OTC pain medications to avoid rebound headaches. Patient can follow-up with PCP. Telehealth Consultation Telehealth Information Telehealth Information: I performed this visit using a real-time telehealth connection between my location and the patients location ([facility]). After connecting through interactive tele-video, patient was identified by name and date of and/or wristband check.Patient (or authorized healthcare passenger relations representative) was informed that this was a telemedicine visit and it was being conducted confidentially over secure lines. My office door was closed and no one else was present in the room with me.Patient (or authorized healthcare passenger relations representative) provided consent to proceed with the visit, expressed an understanding of privacy and security of the telemedicine visit, and gave permission to have a hospital passenger relations representative in the room in order to assist with the visit and to conduct portions of the visit, as needed. I informed the patient (or authorized healthcare passenger relations representative) that I reviewed their record and presented the opportunity for them to ask any questions regarding the visit today. The patient agreed to participate. History of Present Illness Reason for Consultation: Headache Requesting Physician: Dr. Myers Attending Physician: Abdoul Myers MD History of Present Illness Curtis Jamil is a 73 yo M presenting with cough and intermittent headache over the past week. The patient describes a frontal headache including behind both eyes with only 1-2 hours of headache freedom per day. He describes associated scalp tenderness that was worse last week and no improvement from tylenol. There is no specific position change that makes the headache worse though he notes that laying his head on the pillow is uncomfortable. He also feels that his vision has changed recently and commented that it is sometimes easier to see without his glasses. He does not otherwise have a history of headaches and reports that the cause of his cough has not yet been determined. He admits to not drinking enough fluids and taking lasix last week which he uses PRN when he feels congested. He reports no significant improvement from the medications he has received since admission. Allergies Allergy/AdvReac Type Severity Reaction Status Date / Time Iodinated Contrast Media Allergy Severe Anaphylaxis Verified 08/09/23 10:12 Egvhpzt-YTU-HiA Reductase Allergy Unknown MUSCLE Verified 08/09/23 10:12 Inhibitor ACHES [Yfhgyzm-Url-Oak Reductase Inhibitor] Home Medications Medication Instructions Recorded Confirmed Type cholecalciferol (vitamin D3) 125 5,000 unit PO QAM 05/22/18 08/09/23 History mcg (5,000 unit) tablet (Vitamin D3) clopidogrel 75 mg tablet (Plavix) 75 mg PO QAM 05/22/18 08/09/23 History nitroglycerin 0.4 mg sublingual 0.4 mg sublingual UD PRN Chest Pain 05/22/18 08/09/23 History tablet (Nitrostat) terazosin 2 mg capsule 2 mg PO HS 05/22/18 08/09/23 History vitamin E 268 mg (400 unit) capsule 400 unit PO QAM 05/22/18 08/09/23 History pyridoxine (vitamin B6) 100 mg 100 mg PO QAM 12/06/20 08/09/23 History tablet (Vitamin B-6) fluocinonide 0.05 % topical cream 1 applic topical BID PRN Rash 12/31/20 08/09/23 History sertraline 100 mg tablet 0 mg PO BID 01/07/21 08/09/23 History aspirin 81 mg tablet,delayed 81 mg PO AMPM 01/10/21 08/09/23 History release fluticasone propionate 50 2 spray intranasal DAILY PRN Nasal 01/10/21 08/09/23 History mcg/actuation nasal Congestion spray,suspension Formulas Testosterone Cap 1 tab PO DAILY 12/16/22 08/09/23 History alirocumab 150 mg/mL subcutaneous 150 mg subcut .[id number] 12/16/22 08/09/23 History pen injector (Praluent Pen) allopurinol 300 mg tablet 150 mg PO QAM 12/16/22 08/09/23 History amlodipine 10 mg tablet 10 mg PO QAM 12/16/22 08/09/23 History cyanocobalamin (vitamin B-12) 1,000 mcg PO DAILY 12/16/22 08/09/23 History 1,000 mcg tablet (Vitamin B-12) famotidine 20 mg tablet 20 mg PO BID 12/16/22 08/09/23 History metoprolol succinate 50 mg 50 mg PO QAM 12/16/22 08/09/23 History tablet,extended release 24 hr nitroglycerin 0.6 mg/hr 0 patch topical DAILY 12/16/22 08/09/23 History transdermal 24 hour patch pantoprazole 40 mg tablet,delayed 40 mg PO BID 12/16/22 08/09/23 History release ranolazine 500 mg tablet,extended 500 mg PO BID 12/16/22 08/09/23 History release,12 hr furosemide 20 mg tablet 20 mg PO DAILY PRN Edema 01/16/23 08/09/23 History sacubitril 24 mg-valsartan 26 mg 1 tab PO BID 04/02/23 08/09/23 History tablet (Entresto) Patient History Medical History Myocardial Infarction 11/20/2022 Nocturnal hypoxia BPH with obstruction/lower urinary tract symptoms Temporomandibular joint disorder CLICKS NO LOCKING Prediabetes Diet controlled History of intestinal obstruction No recent issues History of colon cancer dx 2016; treated surgically + oral chemo History of TMJ disorder Occ jaw clicking - no jaw locking Hearing deficit [place] Has hearing aids - not wearing hearing aids Depression Anxiety History of TIA (transient ischemic attack) -"SHOWS 7 ON SCANS" PER PT-F/U DR On home oxygen therapy 2 LPM qHS- does not always use secondary to nasal dryness History of COVID-19 08/2020; asymptomatic -TESTED BY [facility] AT [facility] Chronic idiopathic thrombocytopenia F/U PCP BPH (benign prostatic hyperplasia) Gout No current issues Dyslipidemia On injectable medications - cannot tolerate statins GERD (gastroesophageal reflux disease) Well controlled and stable with med HTN (hypertension) CAD (coronary artery disease) "1992 - CABG x 5 09/2016 - [place] to SVG of 10/2016 - repeat cath, no lesions amenable to intervention, medical management recommended" Follows with Dr. Kaiser Surgical History H/O arthroscopic knee surgery mult BL H/O heart artery stent x 1 H/O toe surgery History of cardiac catheterization 2016 [facility] Saline - 1 stent History of carpal tunnel surgery History of colonoscopy History of partial colectomy History of tonsillectomy and adenoidectomy S/P CABG x 5 1992 [facility] Family History Father Diabetes Esophagus cancer Stomach cancer Heart disease Other No family history of adverse response to anesthesia Social History Smoking Status: Former smoker Tobacco Type: Cigarettes Second Hand Exposure: No; Do You Dip or Chew Tobacco: No; Hx Alcohol Use: Yes Alcohol type: hard liquor Hx Substance Use: No Preferred Language: Urdu Communication Ability: Effective Jig Hand Required: No Beliefs That Will Affect Care: None marital status: Current Living Situation: Family Current Living Situation Comment: family has apartment underneath patients home current occupational status: retired current occupation: Retired Other Information That Helps Us Care for You: No Feels Safe at Home: Yes Safety Concerns: Feels Safe At This Time Assistive Devices: None Review of Systems +frontal headache Physical Exam Awake and alert, speech clear, language normal, oriented x3. Face is symmetric, ocular versions were full, no nystagmus. Antigravity strength throughout. No dysmetria. Results & Data Vital Signs (Past 12 Hours) Vital Signs Temp Pulse Pulse Resp BP Pulse Ox O2 Del Method 08/10/23 13:04 81 16 93 Room Air 08/10/23 11:13 37.2 C 76 18 161/82 H 96 Room Air 08/10/23 07:33 64 16 93 Room Air 08/10/23 07:15 37.1 C 79 18 150/88 H 92 Room Air 08/10/23 07:00 71 08/10/23 02:50 37.1 C 90 18 97/58 L 93 Room Air Laboratory Results Abnormal lab results 08/09/23 08/09/23 08/10/23 Range/Units 09:31 17:52 05:26 RBC 4.54 L 4.33 L (4.70-6.10) M/uL Hct 40.4 L (42.0-52.0) % Plt Count 124 L 120 L (130-400) K/uL Lymph # (Auto) 0.45 L 0.46 L (1.20-3.40) K/uL Sodium 134 L 135 L (136-145) mmol/L BUN 25 H 30 H (6-23) mg/dl Creatinine 1.48 H (0.6-1.4) mg/dl BUN/Creatinine Ratio 20.3 H (10-20) Glucose 140 H 130 H (70-99(Fasting)) mg/dl Staphylococcus sp PCR DETECTED A (NotDetected) Staph epidermidis (PCR) DETECTED A (NotDetected) Diagnostic Findings MRI brain and MRV - Unremarkable (1) Headache Headache chronicity pattern: acute headache Headache type: unspecified Intractability: intractable Qualified Code(s): R51.9 - Headache, unspecified
--- NOTE | 2023-08-10 18:13 | Hospitalist Progress Note ---
Date of Service August 10, 2023 Assessment & Plan (1) Acute bronchitis: Plan: 73-year-old male with history of CAD, status post stent placement, CABG, CHF systolic type, colon cancer status post surgery Alcoholism, recurrent small bowel obstructions, presenting with cough and headaches x 1 week. Acute bronchitis Chest x-ray FINDINGS: There are median sternotomy wires and mediastinal surgical clips. No pneumothorax or pleural effusion is present. There is no consolidation or evidence for pulmonary edema. Opacity along the left heart border favors atelectasis or epicardial fat pad. There are old right rib fractures. No pneumothorax or pleural effusion. IMPRESSION: No acute cardiopulmonary findings. 1/2 Improving Continue ceftriaxone plus doxycycline day #2 Nebs every 6 hours Mucinex Flonase NSAID spirometry, flutter valve Monitor closely Frontal headaches Brain MRI: Within normal limits per neurologist Likely secondary to upper respiratory tract infection Headache persistent today Neurologist consulted-no other further recommendations at this point As needed Tylenol Cannot use NSAIDs in light of CKD, cannot use tramadol in light of psych meds Patient declining narcotics at this point May have to use low-dose oxycodone for severe headache Continue supportive care History of CAD, status post stent, CABG Troponins negative No active chest pain Continue usual regimen of aspirin, Plavix, ranolazine, metoprolol History of chronic systolic CHF On the dry side Will order gentle IV fluids x 1 L Continue Entresto Colon cancer status post surgery Alcoholism Recurrent small bowel obstruction No GI symptoms Continue other medications include sertraline, etc. Disposition Lives at home PT and OT evaluation Admission and Anticipated Discharge Date Admission Date: August 09, 2023 Subjective Follow-up for acute bronchitis, etc. Seen resting in bed, not in distress Having headaches today, mostly frontal, radiating to bilateral temporal region No nausea vomiting, visual changes, focal neurologic symptoms States breathing is improving Less cough No other new symptoms Review of Systems Review of Systems: all noted and negative except for above Physical Exam Physical Exam: General- oriented x 3, not in distress, speaks in sentences with no effort or accessory muscle use Eyes- anicteric Neck- no JVD Lungs- clear breath sounds bilaterally, no rales/wheezes Heart- normal rate, regular rhythm; no murmurs Abdomen- normal bowel sounds, nondistended, soft, nontender Extremities- no pretibial edema, no calf tenderness Neuro- alert, oriented x 3; no gross focal neurologic deficits Skin- warm & dry Results & Data Results & Data Vital Signs (Past 12 Hours) Vital Signs Temp Pulse Pulse Resp BP Pulse Ox O2 Del Method 08/10/23 15:12 36.8 C 68 18 119/77 94 Room Air 08/10/23 13:04 81 16 93 Room Air 08/10/23 11:13 37.2 C 76 18 161/82 H 96 Room Air 08/10/23 07:33 64 16 93 Room Air 08/10/23 07:15 37.1 C 79 18 150/88 H 92 Room Air 08/10/23 07:00 71 all noted and reviewed including below
[2023-08-10] MEDS ORDERED: SODIUM CHLORIDE 0.9% 1,000 ML IV SCH (18:15)
[2023-08-10] MEDS: SERTRALINE HCL 50 MG TABLET PO SCH (20:46)
[2023-08-10] MEDS: TERAZOSIN HCL 1 MG CAP PO SCH (20:46)
[2023-08-10] MEDS ORDERED: oxyCODONE HCL IR 5 MG TAB (IMMEDIATE RELEASE) PO STA (22:38)
[2023-08-11 00:35] LABS: Appearance Urine Clear (Clear); Bilirubin Urine Negative (Negative); Blood Urine Negative (Negative); Color Urine Yellow; Glucose Urine UA Negative (Negative); Ketones Urine Negative (Negative); Leukocyte Esterase Urine Negative (Negative); Nitrite Urine Negative (Negative); Protein Urine Negative (Negative); Urobilinogen Urine Negative (Negative); pH Urine 5.5 (4.5-7.5)
[2023-08-11] MEDS: LEVALBUTEROL 1.25 MG/3 ML NEB NEB SCH ×4 (00:50→18:09)
[2023-08-11] MEDS ORDERED: SUMAtriptan succinate 25 MG TAB PO ONE (04:01)
[2023-08-11] MEDS: ACETAMINOPHEN 500 MG TAB PO PRN ×2 (08:22→17:52)
[2023-08-11] MEDS: FLUTICASONE PROPIONATE NA SPR 16 GM BTL SCH ×2 (08:23→20:42)
[2023-08-11] MEDS: FAMOTIDINE 20 MG TAB PO SCH ×2 (08:24→20:42)
[2023-08-11] MEDS: RANOLAZINE 500 MG ER TAB PO SCH ×2 (08:24→20:41)
[2023-08-11] MEDS: DOXYCYCLINE HYCLATE 100 MG CAP PO SCH ×2 (08:24→20:43)
[2023-08-11] MEDS: VALSARTAN/SACUBITRIL 26/24MG TAB PO SCH ×2 (08:24→20:41)
[2023-08-11] MEDS: PANTOprazole 40 MG TAB PO SCH ×2 (08:24→20:45)
[2023-08-11] MEDS: ASPIRIN 81 MG ECTAB PO SCH ×2 (08:24→20:45)
[2023-08-11] MEDS: amLODIPine BESYLATE 5 MG TAB PO SCH (08:24)
[2023-08-11] MEDS: SERTRALINE HCL 100 MG TABLET PO SCH (08:24)
[2023-08-11] MEDS: CLOPIDOGREL BISULFATE 75 MG TAB PO SCH (08:24)
[2023-08-11] MEDS: guaiFENesin 600 MG TABCR PO SCH ×2 (08:24→20:45)
[2023-08-11] MEDS: METOPROLOL SUCC 50MG EXT REL TAB PO SCH (08:25)
[2023-08-11] MEDS: ADVANCED PROBIOTIC 1250 MG CAPSULE PO SCH (08:28)
[2023-08-11] MEDS: cefTRIAXone SODIUM 2,000 MG in DEXTROSE 5 % MINI-B 50 ML IV SCH (08:28)
[2023-08-11] MEDS ORDERED: LORazepam 0.5 MG in SYRINGE 0.25 ML IV STA (08:35)
[2023-08-11] MEDS: SODIUM CHLORIDE 0.9% 1,000 ML IV SCH (13:53)
--- NOTE | 2023-08-11 17:22 | Hospitalist Progress Note ---
Date of Service August 11, 2023 Assessment & Plan (1) Acute bronchitis: Plan: 73-year-old male with history of CAD, status post stent placement, CABG, CHF systolic type, colon cancer status post surgery Alcoholism, recurrent small bowel obstructions, presenting with cough and headaches x 1 week. Acute bronchitis Chest x-ray FINDINGS: There are median sternotomy wires and mediastinal surgical clips. No pneumothorax or pleural effusion is present. There is no consolidation or evidence for pulmonary edema. Opacity along the left heart border favors atelectasis or epicardial fat pad. There are old right rib fractures. No pneumothorax or pleural effusion. IMPRESSION: No acute cardiopulmonary findings. Continue ceftriaxone plus doxycycline day #3 and symptomatic treatment Clinically better without any respiratory symptoms We will finish the course of antibiotic Frontal headaches-severe headache without any acute distress Brain MRI: Within normal limits per neurologist Likely secondary to upper respiratory tract infection Headache persistent for the last few days Neurologist consulted-no other further recommendations at this point May have to use low-dose oxycodone for severe headache Question about withdrawal symptoms from alcohol He does not have any tremors with outstretched hands 0.5 of Ativan intravenously helped the headache Will give 0.5 mg oral Ativan 3 times daily as needed for headache/anxiety No evidence of Lyme disease and/or anaplasmosis Reassured about benign headache at this time History of CAD, status post stent, CABG Troponins negative No active chest pain Continue usual regimen of aspirin, Plavix, ranolazine, metoprolol No acute cardiac symptoms History of chronic systolic CHF On the dry side Will order gentle IV fluids x 1 L Continue Entresto Colon cancer status post surgery Alcoholism Recurrent small bowel obstruction No GI symptoms Continue other medications include sertraline, etc. Disposition Lives at home PT and OT evaluation Likely discharge tomorrow if headache is controlled Admission and Anticipated Discharge Date Admission Date: August 09, 2023 Subjective 08/11/2023 The patient was seen and examined in telemetry unit in presence of the family members He has headache seems to be better with 1 dose of intravenous Ativan No definitive causes for the headache has been established but was thought to be viral History of alcoholism and last drink about 72 hours ago without any signs and or symptoms of withdrawal He is reassured and was advised to drink more fluid to improve dehydrate Review of Systems Review of Systems: All systems reviewed and are unremarkable except as noted below Physical Exam Physical Exam: Lying in bed without any acute Constitutional: well developed and well nourished; not ill appearing Eyes: PERRL, conjunctivae normal, anicteric sclerae ENMT: external ear and nose normal, oropharynx normal Neck: trachea midline, no thyromegaly Respiratory: no respiratory distress Auscultation: lungs clear to auscultation bilaterally Cardiovascular: Rate/Rhythm: regular rate and regular rhythm; not tachycardic Heart Sounds: normal S1 and normal S2; no murmur Extremities: no edema Gastrointestinal (Abdomen): Inspection/Auscultation: normal bowel sounds; abdomen not distended Percussion/Palpation: abdomen soft; abdomen nontender Musculoskeletal: No acute arthritis involving any joint Neurologic: normal touch/pain/proprioception and moves all extremities; no focal motor deficits Lymphatic: no cervical or axillary lymphadenopathy Results & Data Results & Data Vital Signs (Past 12 Hours) Vital Signs Temp Pulse Pulse Resp BP Pulse Ox O2 Del Method 08/11/23 14:55 36.6 C 65 19 120/73 96 Room Air 08/11/23 13:09 64 18 93 Room Air 08/11/23 11:15 36.6 C 62 20 130/88 92 Room Air 08/11/23 09:00 Room Air 08/11/23 08:00 86 08/11/23 06:57 36.6 C 84 19 155/88 H 95 Room Air 08/11/23 05:29 66 18 95 Room Air Laboratory Results Urine 08/11/23 Range/Units 00:20 Urine Color Yellow Urine Appearance Clear (Clear) Urine pH 5.5 (4.5-7.5) Ur Specific [place] 1.020 (1.000-1.030) Urine Protein Negative (Negative) Urine Glucose (UA) Negative (Negative) Medications Administered Current Inpatient Medications Acetaminophen (Acetaminophen 500 Mg Tab) 1,000 mg PO Q8H PRN PRN Reason: Fever or headache Stop: 09/09/23 00:16 Last Admin: 08/11/23 08:22 Dose: 1,000 mg Amlodipine Besylate (Amlodipine Besylate 5 Mg Tab) 10 mg PO QAM [facility] Stop: 09/09/23 08:59 Last Admin: 08/11/23 08:24 Dose: 10 mg Aspirin (Aspirin 81 Mg Ectab) 81 mg PO BID [facility] Stop: 09/08/23 18:29 Last Admin: 08/11/23 08:24 Dose: 81 mg Clopidogrel Bisulfate (Clopidogrel Bisulfate 75 Mg Tab) 75 mg PO QAM [facility] Stop: 09/09/23 08:59 Last Admin: 08/11/23 08:24 Dose: 75 mg Doxycycline Hyclate (Doxycycline Hyclate 100 Mg Cap) 100 mg PO BID [facility] Stop: 08/16/23 20:59 Last Admin: 08/11/23 08:24 Dose: 100 mg Famotidine (Famotidine 20 Mg Tab) 20 mg PO BID [facility] Stop: 09/08/23 20:59 Last Admin: 08/11/23 08:24 Dose: 20 mg Fluticasone Propionate (Fluticasone Propionate Na Spr 16 Gm Btl) 1 sprays NA BID [facility] Stop: 09/09/23 08:59 Last Admin: 08/11/23 08:23 Dose: 1 sprays Furosemide (Furosemide 20 Mg Tab) 20 mg PO DAILY PRN PRN Reason: Edema Stop: 09/08/23 17:27 Guaifenesin (Guaifenesin 600 Mg Tabcr) 600 mg PO Q12 [facility] Stop: 09/08/23 20:59 Last Admin: 08/11/23 08:24 Dose: 600 mg Ceftriaxone Sodium 2,000 mg/ (Dextrose) 50 mls @ 100 mls/hr IV Q24H [facility]; Protocol Stop: 08/17/23 08:59 Last Infusion: 08/11/23 08:58 Dose: Infused Sodium Chloride (Nss) 1,000 mls @ 80 mls/hr IV .[id number] [facility] Stop: 08/12/23 13:44 Last Admin: 08/11/23 13:53 Dose: 80 mls/hr Lactobacillus Acidophilus (Advanced Probiotic 1250 Mg Capsule) 2 cap PO DAILY [facility] Stop: 09/10/23 08:59 Last Admin: 08/11/23 08:28 Dose: 2 cap Levalbuterol HCl (Levalbuterol 1.25 Mg/3 Ml Neb) 1.25 mg NEB Q6R [facility]; Protocol Stop: 09/08/23 19:44 Last Admin: 08/11/23 13:09 Dose: 1.25 mg Lorazepam (Lorazepam 0.5 Mg Tab) 0.5 mg PO Q4H PRN PRN Reason: Headache or Pain Stop: 09/10/23 12:32 Metoprolol Succinate (Metoprolol Succ 50mg Ext Rel Tab) [facility] Stop: 09/09/23 08:59 Last Admin: 08/11/23 08:25 Dose: 50 mg Pantoprazole Sodium (Pantoprazole 40 Mg Tab) 40 mg PO BID [facility] Stop: 09/08/23 20:59 Last Admin: 08/11/23 08:24 Dose: 40 mg Ranolazine (Ranolazine 500 Mg Er Tab) 500 mg PO BID [facility] Stop: 09/08/23 20:59 Last Admin: 08/11/23 08:24 Dose: 500 mg Sacubitril/Valsartan (Valsartan/Sacubitril 26/24mg Tab) 1 tab PO BID [facility] Stop: 09/08/23 20:59 Last Admin: 08/11/23 08:24 Dose: 1 tab Sertraline HCl (Sertraline Hcl 100 Mg Tablet) 100 mg PO [facility] Stop: 09/09/23 08:59 Last Admin: 08/11/23 08:24 Dose: 100 mg Sertraline HCl (Sertraline Hcl 50 Mg Tablet) [address] [facility] Stop: 09/08/23 20:59 Last Admin: 08/10/23 20:46 Dose: 50 mg Terazosin HCl (Terazosin Hcl 1 Mg Cap) [address] [facility] Stop: 09/08/23 20:59 Last Admin: 08/10/23 20:46 Dose: 2 mg
[2023-08-11] MEDS: SERTRALINE HCL 50 MG TABLET PO SCH (20:43)
[2023-08-11] MEDS: TERAZOSIN HCL 1 MG CAP PO SCH (20:44)
[2023-08-11] MEDS: LORazepam 0.5 MG TAB PO PRN (20:50)
[2023-08-12] MEDS: SODIUM CHLORIDE 0.9% 1,000 ML IV SCH (01:34)
[2023-08-12] MEDS: LEVALBUTEROL 1.25 MG/3 ML NEB NEB SCH ×4 (01:34→19:33)
[2023-08-12] MEDS: LORazepam 0.5 MG TAB PO PRN ×2 (01:51→13:25)
[2023-08-12] MEDS: ACETAMINOPHEN 500 MG TAB PO PRN ×2 (05:36→20:28)
[2023-08-12] MEDS ORDERED: oxyCODONE HCL IR 5 MG TAB (IMMEDIATE RELEASE) PO STA (06:50)
[2023-08-12] MEDS: guaiFENesin 600 MG TABCR PO SCH ×2 (08:24→20:23)
[2023-08-12] MEDS: DOXYCYCLINE HYCLATE 100 MG CAP PO SCH ×2 (08:24→20:22)
[2023-08-12] MEDS: CLOPIDOGREL BISULFATE 75 MG TAB PO SCH (08:24)
[2023-08-12] MEDS: VALSARTAN/SACUBITRIL 26/24MG TAB PO SCH ×2 (08:24→20:21)
[2023-08-12] MEDS: amLODIPine BESYLATE 5 MG TAB PO SCH (08:24)
[2023-08-12] MEDS: ASPIRIN 81 MG ECTAB PO SCH ×2 (08:25→20:22)
[2023-08-12] MEDS: FAMOTIDINE 20 MG TAB PO SCH ×2 (08:25→20:23)
[2023-08-12] MEDS: FLUTICASONE PROPIONATE NA SPR 16 GM BTL SCH ×2 (08:25→20:22)
[2023-08-12] MEDS: PANTOprazole 40 MG TAB PO SCH ×2 (08:25→20:22)
[2023-08-12] MEDS: METOPROLOL SUCC 50MG EXT REL TAB PO SCH (08:25)
[2023-08-12] MEDS: ADVANCED PROBIOTIC 1250 MG CAPSULE PO SCH (08:25)
[2023-08-12] MEDS: SERTRALINE HCL 100 MG TABLET PO SCH (08:25)
[2023-08-12] MEDS: RANOLAZINE 500 MG ER TAB PO SCH ×2 (08:25→20:21)
[2023-08-12] MEDS: cefTRIAXone SODIUM 2,000 MG in DEXTROSE 5 % MINI-B 50 ML IV SCH (08:26)
[2023-08-12 10:09] LABS: BUN Creatinine Ratio 16.7 (10-20); Creatinine Clr Calc Pharmacy 63.4 ml/min; Est GFR (African American) 73.5 ml/min; Est GFR (Non-African American) 63.4 ml/min; Magnesium 2.1 mg/dl (1.7-2.4); Potassium 4.3 mmol/L (3.5-5.1)
--- NOTE | 2023-08-12 15:34 | Hospitalist Progress Note ---
Date of Service August 12, 2023 Assessment & Plan (1) Acute bronchitis: Plan: 73-year-old male with history of CAD, status post stent placement, CABG, CHF systolic type, colon cancer status post surgery Alcoholism, recurrent small bowel obstructions, presenting with cough and headaches x 1 week. Acute bronchitis Chest x-ray FINDINGS: There are median sternotomy wires and mediastinal surgical clips. No pneumothorax or pleural effusion is present. There is no consolidation or evidence for pulmonary edema. Opacity along the left heart border favors atelectasis or epicardial fat pad. There are old right rib fractures. No pneumothorax or pleural effusion. IMPRESSION: No acute cardiopulmonary findings. Continue ceftriaxone plus doxycycline day #3 and symptomatic treatment Clinically better without any respiratory symptoms We will finish the course of antibiotic No respiratory symptoms Frontal headaches-severe headache without any acute distress Brain MRI: Within normal limits per neurologist Likely secondary to upper respiratory tract infection Headache persistent for the last few days Neurologist consulted-no other further recommendations at this point May have to use low-dose oxycodone for severe headache Question about withdrawal symptoms from alcohol He does not have any tremors with outstretched hands 0.5 of Ativan intravenously helped the headache Will give 0.5 mg oral Ativan 3 times daily as needed for headache/anxiety No evidence of Lyme disease and/or anaplasmosis Reassured about benign headache at this time Headache is persisting and is episodic in nature Will get ESR and if elevated will start high-dose prednisone History of CAD, status post stent, CABG Troponins negative No active chest pain Continue usual regimen of aspirin, Plavix, ranolazine, metoprolol No acute cardiac symptoms History of chronic systolic CHF On the dry side Will order gentle IV fluids x 1 L Continue Entresto Colon cancer status post surgery Alcoholism Recurrent small bowel obstruction No GI symptoms Continue other medications include sertraline, etc. Disposition Lives at home PT and OT evaluation Likely discharge tomorrow if headache is controlled Not yet ready to be discharged Admission and Anticipated Discharge Date Admission Date: August 09, 2023 Subjective 08/11/2023 The patient was seen and examined in telemetry unit in presence of the family members He has headache seems to be better with 1 dose of intravenous Ativan No definitive causes for the headache has been established but was thought to be viral History of alcoholism and last drink about 72 hours ago without any signs and or symptoms of withdrawal He is reassured and was advised to drink more fluid to improve dehydrate 08/12/2023 The patient was seen and examined in telemetry unit He has had severe attack of headache this morning and required oral narcotic pain medication His headache seems to be episodic, bifrontal and without any other associated symptoms Not yet ready to be discharged with ongoing symptoms Review of Systems Review of Systems: All systems reviewed and are unremarkable except as noted below Physical Exam Physical Exam: Lying in bed without any acute Constitutional: well developed and well nourished; not ill appearing Eyes: PERRL, conjunctivae normal, anicteric sclerae ENMT: external ear and nose normal, oropharynx normal Neck: trachea midline, no thyromegaly Respiratory: no respiratory distress Auscultation: lungs clear to auscultation bilaterally Cardiovascular: Rate/Rhythm: regular rate and regular rhythm; not tachycardic Heart Sounds: normal S1 and normal S2; no murmur Extremities: no edema Gastrointestinal (Abdomen): Inspection/Auscultation: normal bowel sounds; abdomen not distended Percussion/Palpation: abdomen soft; abdomen nontender Neurologic: normal touch/pain/proprioception and moves all extremities; no focal motor deficits Lymphatic: no cervical or axillary lymphadenopathy Results & Data Results & Data Vital Signs (Past 12 Hours) Vital Signs Temp Pulse Resp BP Pulse Ox O2 Del Method 08/12/23 15:06 37.0 C 85 16 125/75 94 Room Air 08/12/23 13:31 78 18 97 Room Air 08/12/23 11:05 37.2 C 72 18 109/62 95 Room Air 08/12/23 07:09 37.0 C 73 16 126/71 93 Room Air 08/12/23 06:30 36.6 C 85 18 127/73 97 Room Air 08/12/23 06:06 76 16 98 Room Air 08/12/23 04:00 36.5 C 66 18 169/97 H 96 Room Air Laboratory Results BMP 08/12/23 09:23 Sodium 135 L Potassium 4.3 Chloride 102 Carbon Dioxide 25 BUN 19 Creatinine 1.14 Glucose 170 H Calcium 9.0 Medications Administered Current Inpatient Medications Acetaminophen (Acetaminophen 500 Mg Tab) 1,000 mg PO Q8H PRN PRN Reason: Fever or headache Stop: 09/09/23 00:16 Last Admin: 08/12/23 05:36 Dose: 1,000 mg Amlodipine Besylate (Amlodipine Besylate 5 Mg Tab) 10 mg PO QAM [facility] Stop: 09/09/23 08:59 Last Admin: 08/12/23 08:24 Dose: 10 mg Aspirin (Aspirin 81 Mg Ectab) 81 mg PO BID [facility] Stop: 09/08/23 18:29 Last Admin: 08/12/23 08:25 Dose: 81 mg Clopidogrel Bisulfate (Clopidogrel Bisulfate 75 Mg Tab) 75 mg PO QAM [facility] Stop: 09/09/23 08:59 Last Admin: 08/12/23 08:24 Dose: 75 mg Doxycycline Hyclate (Doxycycline Hyclate 100 Mg Cap) 100 mg PO BID [facility] Stop: 08/16/23 20:59 Last Admin: 08/12/23 08:24 Dose: 100 mg Famotidine (Famotidine 20 Mg Tab) 20 mg PO BID [facility] Stop: 09/08/23 20:59 Last Admin: 08/12/23 08:25 Dose: 20 mg Fluticasone Propionate (Fluticasone Propionate Na Spr 16 Gm Btl) 1 sprays NA BID [facility] Stop: 09/09/23 08:59 Last Admin: 08/12/23 08:25 Dose: 1 sprays Furosemide (Furosemide 20 Mg Tab) 20 mg PO DAILY PRN PRN Reason: Edema Stop: 09/08/23 17:27 Guaifenesin (Guaifenesin 600 Mg Tabcr) 600 mg PO Q12 [facility] Stop: 09/08/23 20:59 Last Admin: 08/12/23 08:24 Dose: 600 mg Ceftriaxone Sodium 2,000 mg/ (Dextrose) 50 mls @ 100 mls/hr IV Q24H [facility]; Protocol Stop: 08/17/23 08:59 Last Infusion: 08/12/23 08:55 Dose: Infused Lactobacillus Acidophilus (Advanced Probiotic 1250 Mg Capsule) 2 cap PO DAILY [facility] Stop: 09/10/23 08:59 Last Admin: 08/12/23 08:25 Dose: 2 cap Levalbuterol HCl (Levalbuterol 1.25 Mg/3 Ml Neb) 1.25 mg NEB Q6R [facility]; Protocol Stop: 09/08/23 19:44 Last Admin: 08/12/23 13:31 Dose: 1.25 mg Lorazepam (Lorazepam 0.5 Mg Tab) 0.5 mg PO Q4H PRN PRN Reason: Headache or Pain Stop: 09/10/23 12:32 Last Admin: 08/12/23 13:25 Dose: 0.5 mg Metoprolol Succinate (Metoprolol Succ 50mg Ext Rel Tab) [facility] Stop: 09/09/23 08:59 Last Admin: 08/12/23 08:25 Dose: 50 mg Pantoprazole Sodium (Pantoprazole 40 Mg Tab) 40 mg PO BID [facility] Stop: 09/08/23 20:59 Last Admin: 08/12/23 08:25 Dose: 40 mg Ranolazine (Ranolazine 500 Mg Er Tab) 500 mg PO BID [facility] Stop: 09/08/23 20:59 Last Admin: 08/12/23 08:25 Dose: 500 mg Sacubitril/Valsartan (Valsartan/Sacubitril 26/24mg Tab) 1 tab PO BID [facility] Stop: 09/08/23 20:59 Last Admin: 08/12/23 08:24 Dose: 1 tab Sertraline HCl (Sertraline Hcl 100 Mg Tablet) 100 mg PO [facility] Stop: 09/09/23 08:59 Last Admin: 08/12/23 08:25 Dose: 100 mg Sertraline HCl (Sertraline Hcl 50 Mg Tablet) 50 mg PO [facility] Stop: 09/08/23 20:59 Last Admin: 08/11/23 20:43 Dose: 50 mg Terazosin HCl (Terazosin Hcl 1 Mg Cap) 2 mg PO [facility] Stop: 09/08/23 20:59 Last Admin: 08/11/23 20:44 Dose: 2 mg
[2023-08-12] MEDS: SERTRALINE HCL 50 MG TABLET PO SCH (20:20)
[2023-08-12] MEDS: TERAZOSIN HCL 1 MG CAP PO SCH (20:21)
[2023-08-12] MEDS ORDERED: LEVALBUTEROL 1.25 MG/3 ML NEB NEB PRN (20:26)
[2023-08-12 22:49] LABS: Appearance Urine Clear (Clear); Bilirubin Urine Negative (Negative); Blood Urine Negative (Negative); Color Urine Yellow; Glucose Urine UA Negative (Negative); Ketones Urine Negative (Negative); Leukocyte Esterase Urine Negative (Negative); Nitrite Urine Negative (Negative); Protein Urine Negative (Negative); Urobilinogen Urine Negative (Negative)
[2023-08-12] MEDS: CIPRO 0.2%/HYDROCORTISONE 1% OTIC SUSP 10 ML BTL OTL SCH (22:50)
[2023-08-13] MEDS: FLUTICASONE PROPIONATE NA SPR 16 GM BTL SCH ×2 (08:05→20:00)
[2023-08-13] MEDS: CIPRO 0.2%/HYDROCORTISONE 1% OTIC SUSP 10 ML BTL OTL SCH ×2 (08:05→19:58)
[2023-08-13] MEDS: cefTRIAXone SODIUM 2,000 MG in DEXTROSE 5 % MINI-B 50 ML IV SCH (08:05)
[2023-08-13] MEDS: guaiFENesin 600 MG TABCR PO SCH ×2 (08:06→20:02)
[2023-08-13] MEDS: RANOLAZINE 500 MG ER TAB PO SCH ×2 (08:06→20:03)
[2023-08-13] MEDS: VALSARTAN/SACUBITRIL 26/24MG TAB PO SCH ×2 (08:06→20:06)
[2023-08-13] MEDS: DOXYCYCLINE HYCLATE 100 MG CAP PO SCH ×2 (08:06→19:59)
[2023-08-13] MEDS: ASPIRIN 81 MG ECTAB PO SCH ×2 (08:06→19:57)
[2023-08-13] MEDS: ADVANCED PROBIOTIC 1250 MG CAPSULE PO SCH (08:06)
[2023-08-13] MEDS: CLOPIDOGREL BISULFATE 75 MG TAB PO SCH (08:06)
[2023-08-13] MEDS: PANTOprazole 40 MG TAB PO SCH ×2 (08:06→20:02)
[2023-08-13] MEDS: METOPROLOL SUCC 50MG EXT REL TAB PO SCH (08:07)
[2023-08-13] MEDS: amLODIPine BESYLATE 5 MG TAB PO SCH (08:07)
[2023-08-13] MEDS: FAMOTIDINE 20 MG TAB PO SCH ×2 (08:07→20:00)
[2023-08-13] MEDS: SERTRALINE HCL 100 MG TABLET PO SCH (08:07)
[2023-08-13] MEDS: ACETAMINOPHEN 500 MG TAB PO PRN ×2 (09:12→23:12)
[2023-08-13] MEDS ORDERED: methylPREDNISolone 40 MG in SYRINGE 0 ML IV STA (12:38)
--- NOTE | 2023-08-13 14:06 | Hospitalist Progress Note ---
Date of Service August 13, 2023 Assessment & Plan (1) Acute bronchitis: Plan: 73-year-old male with history of CAD, status post stent placement, CABG, CHF systolic type, colon cancer status post surgery Alcoholism, recurrent small bowel obstructions, presenting with cough and headaches x 1 week. Frontal headaches-severe headache without any acute distress Brain MRI: Within normal limits per neurologist Likely secondary to upper respiratory tract infection Headache persistent for the last few days Neurologist consulted-no other further recommendations at this point May have to use low-dose oxycodone for severe headache Question about withdrawal symptoms from alcohol He does not have any tremors with outstretched hands 0.5 of Ativan intravenously helped the headache Will give 0.5 mg oral Ativan 3 times daily as needed for headache/anxiety No evidence of Lyme disease and/or anaplasmosis Reassured about benign headache at this time Headache is persisting and is episodic in nature ESR is not elevated Headache remains episodic and very disabling Will try a dose of intravenous Solu-Medrol today and continue with the current pain management for the headache Likely discharge tomorrow if the headache is reasonably controlled Acute bronchitis Chest x-ray FINDINGS: There are median sternotomy wires and mediastinal surgical clips. No pneumothorax or pleural effusion is present. There is no consolidation or evidence for pulmonary edema. Opacity along the left heart border favors atelectasis or epicardial fat pad. There are old right rib fractures. No pneumothorax or pleural effusion. IMPRESSION: No acute cardiopulmonary findings. Continue ceftriaxone plus doxycycline day #3 and symptomatic treatment Clinically better without any respiratory symptoms We will finish the course of antibiotic No respiratory symptoms History of CAD, status post stent, CABG Troponins negative No active chest pain Continue usual regimen of aspirin, Plavix, ranolazine, metoprolol No acute cardiac symptoms History of chronic systolic CHF On the dry side Will order gentle IV fluids x 1 L Continue Entresto Colon cancer status post surgery Alcoholism Recurrent small bowel obstruction No GI symptoms Continue other medications include sertraline, etc. Disposition Lives at home PT and OT evaluation Likely discharge tomorrow if headache is controlled Not yet ready to be discharged Admission and Anticipated Discharge Date Admission Date: August 09, 2023 Subjective 08/11/2023 The patient was seen and examined in telemetry unit in presence of the family members He has headache seems to be better with 1 dose of intravenous Ativan No definitive causes for the headache has been established but was thought to be viral History of alcoholism and last drink about 72 hours ago without any signs and or symptoms of withdrawal He is reassured and was advised to drink more fluid to improve dehydrate 08/12/2023 The patient was seen and examined in telemetry unit He has had severe attack of headache this morning and required oral narcotic pain medication His headache seems to be episodic, bifrontal and without any other associated symptoms Not yet ready to be discharged with ongoing symptoms 08/13/2023 The patient was seen and examined in telemetry unit He continues to have episodic headache bitemporal and frontal with occasional dizziness Still does not have any other associated symptoms Complains of left earache and has been given ciprofloxacin eardrop He is not yet ready to be discharged Review of Systems Review of Systems: All systems reviewed and are unremarkable except as noted below Physical Exam Physical Exam: Lying in bed without any acute Constitutional: well developed and well nourished; not ill appearing Eyes: PERRL, conjunctivae normal, anicteric sclerae ENMT: external ear and nose normal, oropharynx normal Neck: trachea midline, no thyromegaly Respiratory: no respiratory distress Auscultation: lungs clear to auscultation bilaterally Cardiovascular: Rate/Rhythm: regular rate and regular rhythm; not tachycardic Heart Sounds: normal S1 and normal S2; no murmur Extremities: no edema Gastrointestinal (Abdomen): Inspection/Auscultation: normal bowel sounds; abdomen not distended Percussion/Palpation: abdomen soft; abdomen nontender Musculoskeletal: No acute arthritis involving any of the joint Neurologic: normal touch/pain/proprioception and moves all extremities; no focal motor deficits Lymphatic: no cervical or axillary lymphadenopathy Results & Data Results & Data Vital Signs (Past 12 Hours) Vital Signs Temp Pulse Resp BP Pulse Ox O2 Del Method 08/13/23 10:56 36.5 C 65 19 115/77 95 Room Air 08/13/23 07:06 37.0 C 68 19 130/84 97 Room Air 08/13/23 03:17 36.8 C 59 L 18 104/70 93 Room Air Laboratory Results Urine 08/12/23 Range/Units 22:30 Urine Color Yellow Urine Appearance Clear (Clear) Urine pH 6.0 (4.5-7.5) Ur Specific [place] 1.020 (1.000-1.030) Urine Protein Negative (Negative) Urine Glucose (UA) Negative (Negative) Medications Administered Current Inpatient Medications Acetaminophen (Acetaminophen 500 Mg Tab) 1,000 mg PO Q8H PRN PRN Reason: Fever or headache Stop: 09/09/23 00:16 Last Admin: 08/13/23 09:12 Dose: 1,000 mg Amlodipine Besylate (Amlodipine Besylate 5 Mg Tab) 10 mg PO QAM [facility] Stop: 09/09/23 08:59 Last Admin: 08/13/23 08:07 Dose: 10 mg Aspirin (Aspirin 81 Mg Ectab) 81 mg PO BID [facility] Stop: 09/08/23 18:29 Last Admin: 08/13/23 08:06 Dose: 81 mg Ciprofloxacin/Hydrocortisone (Cipro 0.2%/Hydrocortisone 1% Otic Susp 10 Ml Btl) 4 drops OTL BID [facility] Stop: 09/11/23 22:14 Last Admin: 08/13/23 08:05 Dose: 4 drops Clopidogrel Bisulfate (Clopidogrel Bisulfate 75 Mg Tab) 75 mg PO QAM [facility] Stop: 09/09/23 08:59 Last Admin: 08/13/23 08:06 Dose: 75 mg Doxycycline Hyclate (Doxycycline Hyclate 100 Mg Cap) 100 mg PO BID [facility] Stop: 08/16/23 20:59 Last Admin: 08/13/23 08:06 Dose: 100 mg Famotidine (Famotidine 20 Mg Tab) 20 mg PO BID [facility] Stop: 09/08/23 20:59 Last Admin: 08/13/23 08:07 Dose: 20 mg Fluticasone Propionate (Fluticasone Propionate Na Spr 16 Gm Btl) 1 sprays NA BID [facility] Stop: 09/09/23 08:59 Last Admin: 08/13/23 08:05 Dose: 1 sprays Furosemide (Furosemide 20 Mg Tab) 20 mg PO DAILY PRN PRN Reason: Edema Stop: 09/08/23 17:27 Guaifenesin (Guaifenesin 600 Mg Tabcr) 600 mg PO Q12 [facility] Stop: 09/08/23 20:59 Last Admin: 08/13/23 08:06 Dose: 600 mg Ceftriaxone Sodium 2,000 mg/ (Dextrose) 50 mls @ 100 mls/hr IV Q24H [facility]; Protocol Stop: 08/17/23 08:59 Last Infusion: 08/13/23 08:51 Dose: Infused Lactobacillus Acidophilus (Advanced Probiotic 1250 Mg Capsule) 2 cap PO DAILY [facility] Stop: 09/10/23 08:59 Last Admin: 08/13/23 08:06 Dose: 2 cap Levalbuterol HCl (Levalbuterol 1.25 Mg/3 Ml Neb) 1.25 mg NEB Q6R [facility]; Protocol PRN Reason: Wheezing Stop: 09/08/23 19:44 Lorazepam (Lorazepam 0.5 Mg Tab) 0.5 mg PO Q4H PRN PRN Reason: Headache or Pain Stop: 09/10/23 12:32 Last Admin: 08/12/23 13:25 Dose: 0.5 mg Metoprolol Succinate (Metoprolol Succ 50mg Ext Rel Tab) 50 mg PO QAM [facility] Stop: 09/09/23 08:59 Last Admin: 08/13/23 08:07 Dose: 50 mg Pantoprazole Sodium (Pantoprazole 40 Mg Tab) 40 mg PO BID [facility] Stop: 09/08/23 20:59 Last Admin: 08/13/23 08:06 Dose: 40 mg Ranolazine (Ranolazine 500 Mg Er Tab) 500 mg PO BID [facility] Stop: 09/08/23 20:59 Last Admin: 08/13/23 08:06 Dose: 500 mg Sacubitril/Valsartan (Valsartan/Sacubitril 26/24mg Tab) 1 tab PO BID [facility] Stop: 09/08/23 20:59 Last Admin: 08/13/23 08:06 Dose: 1 tab Sertraline HCl (Sertraline Hcl 100 Mg Tablet) 100 mg PO QAM [facility] Stop: 09/09/23 08:59 Last Admin: 08/13/23 08:07 Dose: 100 mg Sertraline HCl (Sertraline Hcl 50 Mg Tablet) 50 mg PO HS [facility] Stop: 09/08/23 20:59 Last Admin: 08/12/23 20:20 Dose: 50 mg Terazosin HCl (Terazosin Hcl 1 Mg Cap) 2 mg PO HS [facility] Stop: 09/08/23 20:59 Last Admin: 08/12/23 20:21 Dose: 2 mg
[2023-08-13] MEDS: SERTRALINE HCL 50 MG TABLET PO SCH (20:04)
[2023-08-13] MEDS: TERAZOSIN HCL 1 MG CAP PO SCH (20:05)
[2023-08-13] MEDS: LORazepam 0.5 MG TAB PO PRN (23:12)
[2023-08-14 07:18] LABS: Basophils # (auto) 0.03 K/uL (0.00-0.20); Basophils % (auto) 0.6 %; Eosinophils # (auto) 0.02 K/uL (0.00-0.50); Eosinophils % (auto) 0.4 %; Hematocrit (blood only) 40.3 % (42.0-52.0); Hemoglobin 14.2 g/dl (14.0-18.0); Immature Granulocytes # (auto) 0.01 K/uL (0.01-0.20); Immature Granulocytes % (auto) 0.2 %; Lymphocytes # (auto) 1.02 K/uL (1.20-3.40); Lymphocytes % (auto) 19.3 %; Mean Corpuscular Hemoglobin 32.1 pg (25.0-34.0); Mean Corpuscular Hgb Conc 35.2 g/dL (32.0-36.0); Mean Corpuscular Volume 91.2 fL (80.0-100.0); Mean Platelet Volume 10.2 fL (9.4-12.4); Monocytes # (auto) 0.39 K/uL (0.11-0.59); Monocytes % (auto) 7.4 %; Neutrophils # (auto) 3.82 K/uL (1.40-6.50); Neutrophils % (auto) 72.1 %; Platelet Count 160 K/uL (130-400); RDW Coefficient of Variation 11.8 % (11.5-14.5); RDW Standard Deviation 39.8 fL (36.4-46.3); Red Blood Count 4.42 M/uL (4.70-6.10); White Blood Count 5.29 K/ul (4.8-10.8)
[2023-08-14 07:34] LABS: Anion Gap 8 (3-11); BUN Creatinine Ratio 24.4 (10-20); Blood Urea Nitrogen 31 mg/dl (6-23); Calcium 9.1 mg/dl (8.6-10.3); Carbon Dioxide 24 mmol/L (21-32); Chloride 103 mmol/L (98-107); Creatinine Clr Calc Pharmacy 56.1 ml/min; Est GFR (African American) 64.5 ml/min; Est GFR (Non-African American) 55.7 ml/min; Glucose 108 mg/dl (70-99(Fasting)); Sodium 135 mmol/L (136-145)
[2023-08-14] MEDS: LORazepam 0.5 MG TAB PO PRN (08:09)
[2023-08-14] MEDS: ACETAMINOPHEN 500 MG TAB PO PRN (08:09)
[2023-08-14] MEDS: CLOPIDOGREL BISULFATE 75 MG TAB PO SCH (08:11)
[2023-08-14] MEDS: VALSARTAN/SACUBITRIL 26/24MG TAB PO SCH ×2 (08:11→19:55)
[2023-08-14] MEDS: FAMOTIDINE 20 MG TAB PO SCH ×2 (08:11→19:54)
[2023-08-14] MEDS: METOPROLOL SUCC 50MG EXT REL TAB PO SCH (08:11)
[2023-08-14] MEDS: ADVANCED PROBIOTIC 1250 MG CAPSULE PO SCH (08:11)
[2023-08-14] MEDS: amLODIPine BESYLATE 5 MG TAB PO SCH (08:11)
[2023-08-14] MEDS: DOXYCYCLINE HYCLATE 100 MG CAP PO SCH ×2 (08:12→19:55)
[2023-08-14] MEDS: PANTOprazole 40 MG TAB PO SCH ×2 (08:12→19:55)
[2023-08-14] MEDS: CIPRO 0.2%/HYDROCORTISONE 1% OTIC SUSP 10 ML BTL OTL SCH ×2 (08:12→19:53)
[2023-08-14] MEDS: guaiFENesin 600 MG TABCR PO SCH ×2 (08:12→19:54)
[2023-08-14] MEDS: RANOLAZINE 500 MG ER TAB PO SCH ×2 (08:12→19:54)
[2023-08-14] MEDS: ASPIRIN 81 MG ECTAB PO SCH ×2 (08:12→19:56)
[2023-08-14] MEDS: FLUTICASONE PROPIONATE NA SPR 16 GM BTL SCH ×2 (08:13→19:56)
[2023-08-14] MEDS: cefTRIAXone SODIUM 2,000 MG in DEXTROSE 5 % MINI-B 50 ML IV SCH (08:17)
[2023-08-14] MEDS: SERTRALINE HCL 100 MG TABLET PO SCH (09:45)
[2023-08-14] MEDS ORDERED: methylPREDNISolone 40 MG in SYRINGE 0 ML IV ONE (10:00)
--- NOTE | 2023-08-14 14:58 | Hospitalist Progress Note ---
Date of Service August 14, 2023 Assessment & Plan (1) Acute bronchitis: Plan: 73-year-old male with history of CAD, status post stent placement, CABG, CHF systolic type, colon cancer status post surgery Alcoholism, recurrent small bowel obstructions, presenting with cough and headaches x 1 week. Frontal headaches-severe headache without any acute distress Brain MRI: Within normal limits per neurologist Likely secondary to upper respiratory tract infection Headache persistent for the last few days Neurologist consulted-no other further recommendations at this point May have to use low-dose oxycodone for severe headache Question about withdrawal symptoms from alcohol He does not have any tremors with outstretched hands 0.5 of Ativan intravenously helped the headache Will give 0.5 mg oral Ativan 3 times daily as needed for headache/anxiety No evidence of Lyme disease and/or anaplasmosis Reassured about benign headache at this time Headache is persisting and is episodic in nature ESR is not elevated Headache remains episodic and very disabling Will try a dose of intravenous Solu-Medrol today and continue with the current pain management for the headache Steroid is helping a bit but not yet totally and the patient still has headache as of this morning Will repeat another dose of Solu-Medrol and if the headache is not any better will get MRI with and without contrast Acute bronchitis Chest x-ray FINDINGS: There are median sternotomy wires and mediastinal surgical clips. No pneumothorax or pleural effusion is present. There is no consolidation or evidence for pulmonary edema. Opacity along the left heart border favors atelectasis or epicardial fat pad. There are old right rib fractures. No pneumothorax or pleural effusion. IMPRESSION: No acute cardiopulmonary findings. Continue ceftriaxone plus doxycycline day #3 and symptomatic treatment Clinically better without any respiratory symptoms We will finish the course of antibiotic No respiratory symptoms Remains stable History of CAD, status post stent, CABG Troponins negative No active chest pain Continue usual regimen of aspirin, Plavix, ranolazine, metoprolol No acute cardiac symptoms History of chronic systolic CHF On the dry side Will order gentle IV fluids x 1 L Continue Entresto-no more cardiac symptoms Colon cancer status post surgery Alcoholism Recurrent small bowel obstruction No GI symptoms Continue other medications include sertraline, etc. Disposition Lives at home PT and OT evaluation Likely discharge tomorrow if headache is controlled Not yet ready to be discharged Admission and Anticipated Discharge Date Admission Date: August 09, 2023 Subjective 08/11/2023 The patient was seen and examined in telemetry unit in presence of the family members He has headache seems to be better with 1 dose of intravenous Ativan No definitive causes for the headache has been established but was thought to be viral History of alcoholism and last drink about 72 hours ago without any signs and or symptoms of withdrawal He is reassured and was advised to drink more fluid to improve dehydrate 08/12/2023 The patient was seen and examined in telemetry unit He has had severe attack of headache this morning and required oral narcotic pain medication His headache seems to be episodic, bifrontal and without any other associated symptoms Not yet ready to be discharged with ongoing symptoms 08/13/2023 The patient was seen and examined in telemetry unit He continues to have episodic headache bitemporal and frontal with occasional dizziness Still does not have any other associated symptoms Complains of left earache and has been given ciprofloxacin eardrop He is not yet ready to be discharged 08/14/2023 The patient was seen and examined in medical telemetry unit He continues to have headache bitemporal but more on the left No other associated symptoms with the headache Intravenous Solu-Medrol seems to be helping If the headache is not any better will get a repeat MRI with and without contrast Review of Systems Review of Systems: All systems reviewed and are unremarkable except as noted below Physical Exam Physical Exam: Lying in bed without any acute Constitutional: well developed and well nourished; not ill appearing Eyes: PERRL, conjunctivae normal, anicteric sclerae ENMT: external ear and nose normal, oropharynx normal Neck: trachea midline, no thyromegaly Respiratory: no respiratory distress Auscultation: lungs clear to auscultation bilaterally Cardiovascular: Rate/Rhythm: regular rate and regular rhythm; not tachycardic Heart Sounds: normal S1 and normal S2; no murmur Extremities: no edema Gastrointestinal (Abdomen): Inspection/Auscultation: normal bowel sounds; abdomen not distended Percussion/Palpation: abdomen soft; abdomen nontender Neurologic: normal touch/pain/proprioception and moves all extremities; no focal motor deficits Lymphatic: no cervical or axillary lymphadenopathy Results & Data Results & Data Vital Signs (Past 12 Hours) Vital Signs Temp Pulse Pulse Resp BP Pulse Ox O2 Del Method 08/14/23 12:01 36.7 C 61 16 109/68 93 Room Air 08/14/23 07:27 61 08/14/23 06:28 37.0 C 70 18 124/88 94 Room Air 08/14/23 03:40 37.0 C 67 16 110/68 95 Room Air Laboratory Results Short CBC 08/14/23 Range/Units 06:38 WBC 5.29 (4.8-10.8) K/ul Hgb 14.2 (14.0-18.0) g/dl Hct 40.3 L (42.0-52.0) % Plt Count 160 (130-400) K/uL BMP 08/14/23 08/14/23 06:38 07:47 Sodium 135 L Potassium TNP 3.9 Chloride 103 Carbon Dioxide 24 BUN 31 H Creatinine 1.27 Glucose 108 H Calcium 9.1 Medications Administered Current Inpatient Medications Acetaminophen (Acetaminophen 500 Mg Tab) 1,000 mg PO Q8H PRN PRN Reason: Fever or headache Stop: 09/09/23 00:16 Last Admin: 08/14/23 08:09 Dose: 1,000 mg Amlodipine Besylate (Amlodipine Besylate 5 Mg Tab) 10 mg PO QAM [facility] Stop: 09/09/23 08:59 Last Admin: 08/14/23 08:11 Dose: 10 mg Aspirin (Aspirin 81 Mg Ectab) 81 mg PO BID [facility] Stop: 09/08/23 18:29 Last Admin: 08/14/23 08:12 Dose: 81 mg Ciprofloxacin/Hydrocortisone (Cipro 0.2%/Hydrocortisone 1% Otic Susp 10 Ml Btl) 4 drops OTL BID [facility] Stop: 09/11/23 22:14 Last Admin: 08/14/23 08:12 Dose: 4 drops Clopidogrel Bisulfate (Clopidogrel Bisulfate 75 Mg Tab) 75 mg PO QAM [facility] Stop: 09/09/23 08:59 Last Admin: 08/14/23 08:11 Dose: 75 mg Doxycycline Hyclate (Doxycycline Hyclate 100 Mg Cap) 100 mg PO BID [facility] Stop: 08/16/23 20:59 Last Admin: 08/14/23 08:12 Dose: 100 mg Famotidine (Famotidine 20 Mg Tab) 20 mg PO BID [facility] Stop: 09/08/23 20:59 Last Admin: 08/14/23 08:11 Dose: 20 mg Fluticasone Propionate (Fluticasone Propionate Na Spr 16 Gm Btl) 1 sprays NA BID [facility] Stop: 09/09/23 08:59 Last Admin: 08/14/23 08:13 Dose: 1 sprays Furosemide (Furosemide 20 Mg Tab) 20 mg PO DAILY PRN PRN Reason: Edema Stop: 09/08/23 17:27 Guaifenesin (Guaifenesin 600 Mg Tabcr) 600 mg PO Q12 [facility] Stop: 09/08/23 20:59 Last Admin: 08/14/23 08:12 Dose: 600 mg Ceftriaxone Sodium 2,000 mg/ (Dextrose) 50 mls @ 100 mls/hr IV Q24H [facility]; Protocol Stop: 08/17/23 08:59 Last Infusion: 08/14/23 09:00 Dose: Infused Lactobacillus Acidophilus (Advanced Probiotic 1250 Mg Capsule) 2 cap PO DAILY [facility] Stop: 09/10/23 08:59 Last Admin: 08/14/23 08:11 Dose: 2 cap Levalbuterol HCl (Levalbuterol 1.25 Mg/3 Ml Neb) 1.25 mg NEB Q6R PRN; Protocol PRN Reason: Wheezing Stop: 09/08/23 19:44 Lorazepam (Lorazepam 0.5 Mg Tab) 0.5 mg PO Q4H PRN PRN Reason: Headache or Pain Stop: 09/10/23 12:32 Last Admin: 08/14/23 08:09 Dose: 0.5 mg Metoprolol Succinate (Metoprolol Succ 50mg Ext Rel Tab) 50 mg PO [facility] Stop: 09/09/23 08:59 Last Admin: 08/14/23 08:11 Dose: 50 mg Pantoprazole Sodium (Pantoprazole 40 Mg Tab) 40 mg PO BID [facility] Stop: 09/08/23 20:59 Last Admin: 08/14/23 08:12 Dose: 40 mg Ranolazine (Ranolazine 500 Mg Er Tab) 500 mg PO BID [facility] Stop: 09/08/23 20:59 Last Admin: 08/14/23 08:12 Dose: 500 mg Sacubitril/Valsartan (Valsartan/Sacubitril 26/24mg Tab) 1 tab PO BID [facility] Stop: 09/08/23 20:59 Last Admin: 08/14/23 08:11 Dose: 1 tab Sertraline HCl (Sertraline Hcl 100 Mg Tablet) 100 mg PO QAM [facility] Stop: 09/09/23 08:59 Last Admin: 08/14/23 09:45 Dose: 100 mg Sertraline HCl (Sertraline Hcl 50 Mg Tablet) 50 mg PO [facility] Stop: 09/08/23 20:59 Last Admin: 08/13/23 20:04 Dose: 50 mg Terazosin HCl (Terazosin Hcl 1 Mg Cap) 2 mg PO HS [facility] Stop: 09/08/23 20:59 Last Admin: 08/13/23 20:05 Dose: 2 mg
[2023-08-14 15:52] LABS: Babesia microti DNA Not Detected (Not Detected)
[2023-08-14] MEDS: TERAZOSIN HCL 1 MG CAP PO SCH (19:53)
[2023-08-14] MEDS: SERTRALINE HCL 50 MG TABLET PO SCH (19:55)
[2023-08-15] MEDS: ACETAMINOPHEN 500 MG TAB PO PRN ×2 (02:18→20:40)
[2023-08-15] MEDS: METOPROLOL SUCC 50MG EXT REL TAB PO SCH (07:50)
[2023-08-15] MEDS: amLODIPine BESYLATE 5 MG TAB PO SCH (07:52)
[2023-08-15] MEDS: SERTRALINE HCL 100 MG TABLET PO SCH (07:52)
[2023-08-15] MEDS: ADVANCED PROBIOTIC 1250 MG CAPSULE PO SCH (07:52)
[2023-08-15] MEDS: FAMOTIDINE 20 MG TAB PO SCH ×2 (07:53→20:26)
[2023-08-15] MEDS: CLOPIDOGREL BISULFATE 75 MG TAB PO SCH (07:53)
[2023-08-15] MEDS: DOXYCYCLINE HYCLATE 100 MG CAP PO SCH ×2 (07:55→20:26)
[2023-08-15] MEDS: PANTOprazole 40 MG TAB PO SCH ×2 (07:55→20:26)
[2023-08-15] MEDS: guaiFENesin 600 MG TABCR PO SCH ×2 (07:56→20:25)
[2023-08-15] MEDS: FLUTICASONE PROPIONATE NA SPR 16 GM BTL SCH ×2 (07:56→20:26)
[2023-08-15] MEDS: VALSARTAN/SACUBITRIL 26/24MG TAB PO SCH ×2 (07:56→20:25)
[2023-08-15] MEDS: ASPIRIN 81 MG ECTAB PO SCH ×2 (07:57→20:25)
[2023-08-15] MEDS: cefTRIAXone SODIUM 2,000 MG in DEXTROSE 5 % MINI-B 50 ML IV SCH (07:58)
[2023-08-15] MEDS: CIPRO 0.2%/HYDROCORTISONE 1% OTIC SUSP 10 ML BTL OTL SCH ×2 (07:58→20:24)
[2023-08-15] MEDS: RANOLAZINE 500 MG ER TAB PO SCH ×2 (08:02→20:26)
[2023-08-15] MEDS ORDERED: methylPREDNISolone 40 MG in SYRINGE 0 ML IV STA (09:44)
--- NOTE | 2023-08-15 13:02 | Hospitalist Progress Note ---
Date of Service August 15, 2023 Assessment & Plan (1) Acute bronchitis: Plan: 73-year-old male with history of CAD, status post stent placement, CABG, CHF systolic type, colon cancer status post surgery Alcoholism, recurrent small bowel obstructions, presenting with cough and headaches x 1 week. Frontal headaches-severe headache without any acute distress Brain MRI: Within normal limits per neurologist Likely secondary to upper respiratory tract infection Headache persistent for the last few days Neurologist consulted-no other further recommendations at this point May have to use low-dose oxycodone for severe headache Question about withdrawal symptoms from alcohol He does not have any tremors with outstretched hands 0.5 of Ativan intravenously helped the headache Will give 0.5 mg oral Ativan 3 times daily as needed for headache/anxiety No evidence of Lyme disease and/or anaplasmosis Reassured about benign headache at this time Headache is persisting and is episodic in nature ESR is not elevated Headache remains episodic and very disabling Will try a dose of intravenous Solu-Medrol today and continue with the current pain management for the headache Steroid is helping a bit but not yet totally and the patient still has headache as of this morning Will repeat another dose of Solu-Medrol and if the headache is not any better will get MRI with and without contrast A little better but not yet ready to be discharged Will get another dose of intravenous Solu-Medrol and possible prednisone On discharge tomorrow Acute bronchitis Chest x-ray FINDINGS: There are median sternotomy wires and mediastinal surgical clips. No pneumothorax or pleural effusion is present. There is no consolidation or evidence for pulmonary edema. Opacity along the left heart border favors atelectasis or epicardial fat pad. There are old right rib fractures. No pneumothorax or pleural effusion. IMPRESSION: No acute cardiopulmonary findings. Continue ceftriaxone plus doxycycline day #3 and symptomatic treatment Clinically better without any respiratory symptoms We will finish the course of antibiotic No respiratory symptoms Remains stable History of CAD, status post stent, CABG Troponins negative No active chest pain Continue usual regimen of aspirin, Plavix, ranolazine, metoprolol No acute cardiac symptoms History of chronic systolic CHF On the dry side Will order gentle IV fluids x 1 L Continue Entresto-no more cardiac symptoms Colon cancer status post surgery Alcoholism Recurrent small bowel obstruction No GI symptoms Continue other medications include sertraline, etc. Disposition Lives at home PT and OT evaluation Likely discharge tomorrow if headache is controlled Not yet ready to be discharged Admission and Anticipated Discharge Date Admission Date: August 09, 2023 Subjective 08/11/2023 The patient was seen and examined in telemetry unit in presence of the family members He has headache seems to be better with 1 dose of intravenous Ativan No definitive causes for the headache has been established but was thought to be viral History of alcoholism and last drink about 72 hours ago without any signs and or symptoms of withdrawal He is reassured and was advised to drink more fluid to improve dehydrate 08/12/2023 The patient was seen and examined in telemetry unit He has had severe attack of headache this morning and required oral narcotic pain medication His headache seems to be episodic, bifrontal and without any other associated symptoms Not yet ready to be discharged with ongoing symptoms 08/13/2023 The patient was seen and examined in telemetry unit He continues to have episodic headache bitemporal and frontal with occasional dizziness Still does not have any other associated symptoms Complains of left earache and has been given ciprofloxacin eardrop He is not yet ready to be discharged 08/14/2023 The patient was seen and examined in medical telemetry unit He continues to have headache bitemporal but more on the left No other associated symptoms with the headache Intravenous Solu-Medrol seems to be helping If the headache is not any better will get a repeat MRI with and without contrast 08/15/2023 The patient was seen and examined in medical telemetry unit He continues to have headache but seems to be reduced with the use of intravenous Solu-Medrol He will be given another dose of IV Solu-Medrol today and if feels a lot better will be sent home tomorrow If the condition gets worse will have an MRI with and without contrast Review of Systems Review of Systems: All systems reviewed and are unremarkable except as noted below Physical Exam Physical Exam: Lying in bed without any acute Constitutional: well developed and well nourished; not ill appearing Eyes: PERRL, conjunctivae normal, anicteric sclerae ENMT: external ear and nose normal, oropharynx normal Neck: trachea midline, no thyromegaly Respiratory: no respiratory distress Auscultation: lungs clear to auscultation bilaterally Cardiovascular: Rate/Rhythm: regular rate and regular rhythm; not tachycardic Heart Sounds: normal S1 and normal S2; no murmur Extremities: no edema Gastrointestinal (Abdomen): Inspection/Auscultation: normal bowel sounds; abdomen not distended Percussion/Palpation: abdomen soft; abdomen nontender Neurologic: normal touch/pain/proprioception and moves all extremities; no focal motor deficits Lymphatic: no cervical or axillary lymphadenopathy Results & Data Results & Data Vital Signs (Past 12 Hours) Vital Signs Temp Pulse Pulse Resp BP Pulse Ox O2 Del Method 08/15/23 11:20 36.7 C 70 18 131/82 96 Room Air 08/15/23 08:24 61 08/15/23 08:00 Room Air 08/15/23 07:33 36.7 C 69 18 114/72 95 Room Air 08/15/23 02:16 36.6 C 81 18 131/78 97 Room Air Medications Administered Current Inpatient Medications Acetaminophen (Acetaminophen 500 Mg Tab) 1,000 mg PO Q8H PRN PRN Reason: Fever or headache Stop: 09/09/23 00:16 Last Admin: 08/15/23 02:18 Dose: 1,000 mg Amlodipine Besylate (Amlodipine Besylate 5 Mg Tab) 10 mg PO QAM [facility] Stop: 09/09/23 08:59 Last Admin: 08/15/23 07:52 Dose: 10 mg Aspirin (Aspirin 81 Mg Ectab) 81 mg PO BID [facility] Stop: 09/08/23 18:29 Last Admin: 08/15/23 07:57 Dose: 81 mg Ciprofloxacin/Hydrocortisone (Cipro 0.2%/Hydrocortisone 1% Otic Susp 10 Ml Btl) 4 drops OTL BID [facility] Stop: 09/11/23 22:14 Last Admin: 08/15/23 07:58 Dose: 4 drops Clopidogrel Bisulfate (Clopidogrel Bisulfate 75 Mg Tab) 75 mg PO QAM [facility] Stop: 09/09/23 08:59 Last Admin: 08/15/23 07:53 Dose: 75 mg Doxycycline Hyclate (Doxycycline Hyclate 100 Mg Cap) 100 mg PO BID [facility] Stop: 08/16/23 20:59 Last Admin: 08/15/23 07:55 Dose: 100 mg Famotidine (Famotidine 20 Mg Tab) 20 mg PO BID [facility] Stop: 09/08/23 20:59 Last Admin: 08/15/23 07:53 Dose: 20 mg Fluticasone Propionate (Fluticasone Propionate Na Spr 16 Gm Btl) 1 sprays NA BID [facility] Stop: 09/09/23 08:59 Last Admin: 08/15/23 07:56 Dose: 1 sprays Furosemide (Furosemide 20 Mg Tab) 20 mg PO DAILY PRN PRN Reason: Edema Stop: 09/08/23 17:27 Guaifenesin (Guaifenesin 600 Mg Tabcr) 600 mg PO Q12 [facility] Stop: 09/08/23 20:59 Last Admin: 08/15/23 07:56 Dose: 600 mg Ceftriaxone Sodium 2,000 mg/ (Dextrose) 50 mls @ 100 mls/hr IV Q24H [facility]; Protocol Stop: 08/17/23 08:59 Last Infusion: 08/15/23 11:07 Dose: Infused Lactobacillus Acidophilus (Advanced Probiotic 1250 Mg Capsule) 2 cap PO DAILY [facility] Stop: 09/10/23 08:59 Last Admin: 08/15/23 07:52 Dose: 2 cap Levalbuterol HCl (Levalbuterol 1.25 Mg/3 Ml Neb) 1.25 mg NEB Q6R PRN; Protocol PRN Reason: Wheezing Stop: 09/08/23 19:44 Lorazepam (Lorazepam 0.5 Mg Tab) 0.5 mg PO Q4H PRN PRN Reason: Headache or Pain Stop: 09/10/23 12:32 Last Admin: 08/14/23 08:09 Dose: 0.5 mg Metoprolol Succinate (Metoprolol Succ 50mg Ext Rel Tab) [facility] Stop: 09/09/23 08:59 Last Admin: 08/15/23 07:50 Dose: 50 mg Pantoprazole Sodium (Pantoprazole 40 Mg Tab) 40 mg PO BID [facility] Stop: 09/08/23 20:59 Last Admin: 08/15/23 07:55 Dose: 40 mg Ranolazine (Ranolazine 500 Mg Er Tab) 500 mg PO BID [facility] Stop: 09/08/23 20:59 Last Admin: 08/15/23 08:02 Dose: 500 mg Sacubitril/Valsartan (Valsartan/Sacubitril 26/24mg Tab) 1 tab PO BID [facility] Stop: 09/08/23 20:59 Last Admin: 08/15/23 07:56 Dose: 1 tab Sertraline HCl (Sertraline Hcl 100 Mg Tablet) 100 mg PO QAM [facility] Stop: 09/09/23 08:59 Last Admin: 08/15/23 07:52 Dose: 100 mg Sertraline HCl (Sertraline Hcl 50 Mg Tablet) 50 mg PO [facility] Stop: 09/08/23 20:59 Last Admin: 08/14/23 19:55 Dose: 50 mg Terazosin HCl (Terazosin Hcl 1 Mg Cap) 2 mg PO [facility] Stop: 09/08/23 20:59 Last Admin: 08/14/23 19:53 Dose: 2 mg
[2023-08-15] MEDS: TERAZOSIN HCL 1 MG CAP PO SCH (20:25)
[2023-08-15] MEDS: SERTRALINE HCL 50 MG TABLET PO SCH (20:26)
[2023-08-16] MEDS: guaiFENesin 600 MG TABCR PO SCH (08:45)
[2023-08-16] MEDS: VALSARTAN/SACUBITRIL 26/24MG TAB PO SCH (08:45)
[2023-08-16] MEDS: SERTRALINE HCL 100 MG TABLET PO SCH (08:45)
[2023-08-16] MEDS: METOPROLOL SUCC 50MG EXT REL TAB PO SCH (08:45)
[2023-08-16] MEDS: amLODIPine BESYLATE 5 MG TAB PO SCH (08:45)
[2023-08-16] MEDS: ADVANCED PROBIOTIC 1250 MG CAPSULE PO SCH (08:46)
[2023-08-16] MEDS: PANTOprazole 40 MG TAB PO SCH (08:46)
[2023-08-16] MEDS: CLOPIDOGREL BISULFATE 75 MG TAB PO SCH (08:46)
[2023-08-16] MEDS: ASPIRIN 81 MG ECTAB PO SCH (08:46)
[2023-08-16] MEDS: FAMOTIDINE 20 MG TAB PO SCH (08:46)
[2023-08-16] MEDS: RANOLAZINE 500 MG ER TAB PO SCH (08:46)
[2023-08-16] MEDS: DOXYCYCLINE HYCLATE 100 MG CAP PO SCH (08:47)
[2023-08-16] MEDS: FLUTICASONE PROPIONATE NA SPR 16 GM BTL SCH (08:49)
[2023-08-16] MEDS: CIPRO 0.2%/HYDROCORTISONE 1% OTIC SUSP 10 ML BTL OTL SCH (08:49)
[2023-08-16] MEDS: cefTRIAXone SODIUM 2,000 MG in DEXTROSE 5 % MINI-B 50 ML IV SCH (08:53)
[2023-08-16] MEDS ORDERED: SODIUM CHLORIDE 0.9% 1,000 ML IV SCH (09:00)
[2023-08-16] MEDS ORDERED: GADOBUTROL 65ML VIAL IV ONE (13:23)
--- NOTE | 2023-08-16 14:11 | Hospitalist Progress Note ---
Date of Service August 16, 2023 Assessment & Plan (1) Acute bronchitis: Plan: 73-year-old male with history of CAD, status post stent placement, CABG, CHF systolic type, colon cancer status post surgery Alcoholism, recurrent small bowel obstructions, presenting with cough and headaches x 1 week. Frontal headaches-severe headache without any acute distress Brain MRI: Within normal limits per neurologist Likely secondary to upper respiratory tract infection Headache persistent for the last few days Neurologist consulted-no other further recommendations at this point May have to use low-dose oxycodone for severe headache Question about withdrawal symptoms from alcohol He does not have any tremors with outstretched hands 0.5 of Ativan intravenously helped the headache Will give 0.5 mg oral Ativan 3 times daily as needed for headache/anxiety No evidence of Lyme disease and/or anaplasmosis Reassured about benign headache at this time Headache is persisting and is episodic in nature ESR is not elevated Headache remains episodic and very disabling Will try a dose of intravenous Solu-Medrol today and continue with the current pain management for the headache Steroid is helping a bit but not yet totally and the patient still has headache as of this morning Will repeat another dose of Solu-Medrol and if the headache is not any better will get MRI with and without contrast A little better but not yet ready to be discharged Will get another dose of intravenous Solu-Medrol and possible prednisone On discharge tomorrow Headache is much better but is still complains some headache Will get MRI of the head with and without contrast to rule out any significant cause for the headache and also to rule out CSF leak Likely to be discharged this afternoon on prednisone taper Acute bronchitis Chest x-ray FINDINGS: There are median sternotomy wires and mediastinal surgical clips. No pneumothorax or pleural effusion is present. There is no consolidation or evidence for pulmonary edema. Opacity along the left heart border favors atelectasis or epicardial fat pad. There are old right rib fractures. No pneumothorax or pleural effusion. IMPRESSION: No acute cardiopulmonary findings. Continue ceftriaxone plus doxycycline day #3 and symptomatic treatment Clinically better without any respiratory symptoms We will finish the course of antibiotic No respiratory symptoms Remains stable-we will finish the course of antibiotic if it is not done yet History of CAD, status post stent, CABG Troponins negative No active chest pain Continue usual regimen of aspirin, Plavix, ranolazine, metoprolol No acute cardiac symptoms History of chronic systolic CHF On the dry side Will order gentle IV fluids x 1 L Continue Entresto-no more cardiac symptoms Colon cancer status post surgery Alcoholism Recurrent small bowel obstruction No GI symptoms Continue other medications include sertraline, etc. Disposition Lives at home PT and OT evaluation Likely discharge tomorrow if headache is controlled Not yet ready to be discharged Admission and Anticipated Discharge Date Admission Date: August 09, 2023 Subjective 08/11/2023 The patient was seen and examined in telemetry unit in presence of the family members He has headache seems to be better with 1 dose of intravenous Ativan No definitive causes for the headache has been established but was thought to be viral History of alcoholism and last drink about 72 hours ago without any signs and or symptoms of withdrawal He is reassured and was advised to drink more fluid to improve dehydrate 08/12/2023 The patient was seen and examined in telemetry unit He has had severe attack of headache this morning and required oral narcotic pain medication His headache seems to be episodic, bifrontal and without any other associated symptoms Not yet ready to be discharged with ongoing symptoms 08/13/2023 The patient was seen and examined in telemetry unit He continues to have episodic headache bitemporal and frontal with occasional dizziness Still does not have any other associated symptoms Complains of left earache and has been given ciprofloxacin eardrop He is not yet ready to be discharged 08/14/2023 The patient was seen and examined in medical telemetry unit He continues to have headache bitemporal but more on the left No other associated symptoms with the headache Intravenous Solu-Medrol seems to be helping If the headache is not any better will get a repeat MRI with and without contrast 08/15/2023 The patient was seen and examined in medical telemetry unit He continues to have headache but seems to be reduced with the use of intravenous Solu-Medrol He will be given another dose of IV Solu-Medrol today and if feels a lot better will be sent home tomorrow If the condition gets worse will have an MRI with and without contrast 08/16/2023 The patient was seen and examined in medical telemetry unit His headache is much better but is still there Denies any dizziness associated with it and does not have any other associated neurosymptoms Has been ambulating without much difficulties He wants to go home Review of Systems Review of Systems: All systems reviewed and are unremarkable except as noted below Physical Exam Physical Exam: Lying in bed without any acute Constitutional: well developed and well nourished; not ill appearing Eyes: PERRL, conjunctivae normal, anicteric sclerae ENMT: external ear and nose normal, oropharynx normal Neck: trachea midline, no thyromegaly Respiratory: no respiratory distress Auscultation: lungs clear to aus cultation bilaterally Cardiovascular: Rate/Rhythm: regular rate and regular rhythm; not tachycardic Heart Sounds: normal S1 and normal S2; no murmur Extremities: no edema Gastrointestinal (Abdomen): Inspection/Auscultation: normal bowel sounds; abdomen not distended Percussion/Palpation: abdomen soft; abdomen nontender Musculoskeletal: No acute arthritis involving any of the joint Neurologic: normal touch/pain/proprioception and moves all extremities; no focal motor deficits Lymphatic: no cervical or axillary lymphadenopathy Results & Data Results & Data Vital Signs (Past 12 Hours) Vital Signs Temp Pulse Pulse Resp BP Pulse Ox O2 Del Method 08/16/23 11:19 37.0 C 74 16 112/69 94 Room Air 08/16/23 07:35 36.9 C 76 16 145/93 H 94 Room Air 08/16/23 05:56 76 08/16/23 03:00 36.6 C 73 18 129/79 93 Room Air Medications Administered Current Inpatient Medications Acetaminophen (Acetaminophen 500 Mg Tab) 1,000 mg PO Q8H PRN PRN Reason: Fever or headache Stop: 09/09/23 00:16 Last Admin: 08/15/23 20:40 Dose: 1,000 mg Amlodipine Besylate (Amlodipine Besylate 5 Mg Tab) [facility] Stop: 09/09/23 08:59 Last Admin: 08/16/23 08:45 Dose: 10 mg Aspirin (Aspirin 81 Mg Ectab) 81 mg PO BID [facility] Stop: 09/08/23 18:29 Last Admin: 08/16/23 08:46 Dose: 81 mg Ciprofloxacin/Hydrocortisone (Cipro 0.2%/Hydrocortisone 1% Otic Susp 10 Ml Btl) 4 drops OTL BID [facility] Stop: 09/11/23 22:14 Last Admin: 08/16/23 08:49 Dose: 4 drops Clopidogrel Bisulfate (Clopidogrel Bisulfate 75 Mg Tab) 75 mg PO QAM [facility] Stop: 09/09/23 08:59 Last Admin: 08/16/23 08:46 Dose: 75 mg Doxycycline Hyclate (Doxycycline Hyclate 100 Mg Cap) 100 mg PO BID [facility] Stop: 08/16/23 20:59 Last Admin: 08/16/23 08:47 Dose: 100 mg Famotidine (Famotidine 20 Mg Tab) 20 mg PO BID [facility] Stop: 09/08/23 20:59 Last Admin: 08/16/23 08:46 Dose: 20 mg Fluticasone Propionate (Fluticasone Propionate Na Spr 16 Gm Btl) 1 sprays NA BID [facility] Stop: 09/09/23 08:59 Last Admin: 08/16/23 08:49 Dose: 1 sprays Furosemide (Furosemide 20 Mg Tab) 20 mg PO DAILY PRN PRN Reason: Edema Stop: 09/08/23 17:27 Guaifenesin (Guaifenesin 600 Mg Tabcr) 600 mg PO Q12 [facility] Stop: 09/08/23 20:59 Last Admin: 08/16/23 08:45 Dose: 600 mg Ceftriaxone Sodium 2,000 mg/ (Dextrose) 50 mls @ 100 mls/hr IV Q24H [facility]; Protocol Stop: 08/17/23 08:59 Last Infusion: 08/16/23 09:27 Dose: Infused Sodium Chloride (Nss) 1,000 mls @ 125 mls/hr IV .Q8H [facility] Stop: 09/15/23 08:59 Last Admin: 08/16/23 09:27 Dose: 125 mls/hr Lactobacillus Acidophilus (Advanced Probiotic 1250 Mg Capsule) 2 cap PO DAILY [facility] Stop: 09/10/23 08:59 Last Admin: 08/16/23 08:46 Dose: 2 cap Levalbuterol HCl (Levalbuterol 1.25 Mg/3 Ml Neb) 1.25 mg NEB Q6R PRN; Protocol PRN Reason: Wheezing Stop: 09/08/23 19:44 Lorazepam (Lorazepam 0.5 Mg Tab) 0.5 mg PO Q4H PRN PRN Reason: Headache or Pain Stop: 09/10/23 12:32 Last Admin: 08/14/23 08:09 Dose: 0.5 mg Metoprolol Succinate (Metoprolol Succ 50mg Ext Rel Tab) 50 mg PO QAM [facility] Stop: 09/09/23 08:59 Last Admin: 08/16/23 08:45 Dose: 50 mg Pantoprazole Sodium (Pantoprazole 40 Mg Tab) 40 mg PO BID [facility] Stop: 09/08/23 20:59 Last Admin: 08/16/23 08:46 Dose: 40 mg Ranolazine (Ranolazine 500 Mg Er Tab) 500 mg PO BID [facility] Stop: 09/08/23 20:59 Last Admin: 08/16/23 08:46 Dose: 500 mg Sacubitril/Valsartan (Valsartan/Sacubitril 26/24mg Tab) 1 tab PO BID [facility] Stop: 09/08/23 20:59 Last Admin: 08/16/23 08:45 Dose: 1 tab Sertraline HCl (Sertraline Hcl 100 Mg Tablet) 100 mg PO [facility] Stop: 09/09/23 08:59 Last Admin: 08/16/23 08:45 Dose: 100 mg Sertraline HCl (Sertraline Hcl 50 Mg Tablet) 50 mg PO [facility] Stop: 09/08/23 20:59 Last Admin: 08/15/23 20:26 Dose: 50 mg Terazosin HCl (Terazosin Hcl 1 Mg Cap) 2 mg PO [facility] Stop: 09/08/23 20:59 Last Admin: 08/15/23 20:25 Dose: 2 mg
--- NOTE | 2023-08-16 14:17 | Magnetic Resonance Report ---
Brain MRI WITH AND WITHOUT CONTRAST HISTORY: Headache TECHNIQUE: Multiplanar multisequence MRI of the brain was performed both before and after the intrave nous administration of contrast. COMPARISON STUDY: Brain MRI 08/09/2023. FINDINGS: There is no mass, hematoma, midline shift, or acute infarct. The mastoid air cells are tal r. The ventricles and sulci demonstrate mild age-related involutional changes. Scattered foci of T2 h yperintensity seen within the periventricular and subcortical white matter are nonspecific but sugges tive of mild microvascular ischemic changes. The major vascular flow voids at the skull base are well -maintained. Moderate mucosal thickening within the floor the left maxillary sinus, unchanged. The or bits are unremarkable. IMPRESSION: 1. No acute infarct or intracranial hemorrhage. 2. Atrophy and microvascular ischemic changes again noted. 3. The questionable pachymeningeal enhancement seen on the prior study is no longer identified. ACT 112: Negative or not required by law. Electronically signed by: Tunde Montalvo M.D. 08/16/2023 2:15 PM
[2023-08-16] MEDS ORDERED: methylPREDNISolone 40 MG in SYRINGE 0 ML IV STA (14:27)
--- NOTE | 2023-08-17 10:06 | Discharge Summary ---
Date of Service August 16, 2023 Admission HPI Per Admitting Provider 73-year-old male with history of CAD, status post stent placement, CABG, CHF systolic type, colon cancer status post surgery Alcoholism, recurrent small bowel obstructions, presenting with cough and headaches x 1 week. Patient reports that since a week ago, he has been having progressive frontal headaches associated with cough, nasal drainage. No fevers or chills, nausea or vomiting but has noticed that appetite has been decreasing due to above symptoms. Initial CT head showing possibly reduced CSF volume, MRI performed. [facility] neurologist Dr. Gorman reviewed brain MRI, felt to be within normal limits. Patient noted to be wheezing on admission, given nebulizer treatments as well as IV antibiotics. On exam, patient is seen on room air, comfortable. States he somewhat feels improved compared to admission after the initial treatments provided. No active shortness of breath, still having some intermittent frontal headaches with cough. No other new symptom. Admission Exam Per Admitting Provider Physical Exam: General- oriented x 3, not in distress, speaks in sentences with no effort or accessory muscle use Eyes- anicteric Neck- no JVD Lungs-very faint, very intermittent wheeze scattered bilaterally Heart- normal rate, regular rhythm; no murmurs Abdomen- normal bowel sounds, nondistended, soft, nontender Extremities- no pretibial edema, no calf tenderness Neuro- alert, oriented x 3; no gross focal neurologic deficits Skin- warm & dry Principal Diagnosis Acute bronchitis, headache without any apparent cause-improving, CAD status post CABG Discharge Exam Lying in bed without any acute Constitutional well developed and well nourished; not ill appearing Eyes PERRL, conjunctivae normal, anicteric sclerae ENMT external ear and nose normal, oropharynx normal Neck trachea midline, no thyromegaly Respiratory no respiratory distress Auscultation: lungs clear to auscultation bilaterally Cardiovascular Rate/Rhythm: regular rate and regular rhythm; not tachycardic Heart Sounds: normal S1 and normal S2; no murmur Extremities: no edema Gastrointestinal (Abdomen) Inspection/Auscultation: normal bowel sounds; abdomen not distended Percussion/Palpation: abdomen soft; abdomen nontender Neurologic normal touch/pain/proprioception and moves all extremities; no focal motor deficits Lymphatic no cervical or axillary lymphadenopathy Discharge Data Allergies Allergy/AdvReac Type Severity Reaction Status Date / Time Iodinated Contrast Media Allergy Severe Anaphylaxis Verified 08/09/23 10:12 Voiulti-CGO-EzQ Reductase Allergy Unknown MUSCLE Verified 08/09/23 10:12 Inhibitor ACHES [Dducfyd-Ibr-Prs Reductase Inhibitor] Consultations 08/09/23 15:22 ED Decision to Admit Stat 08/10/23 13:18 Consult Neurology Routine Ordered Studies 08/09/23 07:54 CT head/brain wo con Stat 08/09/23 09:02 MR brain wo/w con Stat MR venography head wo con Stat 08/16/23 08:46 MRI Brain [MR brain wo/w con] Urgent Hospital Course (1) Acute bronchitis: 73-year-old male with history of CAD, status post stent placement, CABG, CHF systolic type, colon cancer status post surgery Alcoholism, recurrent small bowel obstructions, presenting with cough and headaches x 1 week. Frontal headaches-severe headache without any acute distress Brain MRI: Within normal limits per neurologist Likely secondary to upper respiratory tract infection Headache persistent for the last few days Neurologist consulted-no other further recommendations at this point May have to use low-dose oxycodone for severe headache Question about withdrawal symptoms from alcohol He does not have any tremors with outstretched hands 0.5 of Ativan intravenously helped the headache Will give 0.5 mg oral Ativan 3 times daily as needed for headache/anxiety No evidence of Lyme disease and/or anaplasmosis Reassured about benign headache at this time Headache is persisting and is episodic in nature ESR is not elevated Headache remains episodic and very disabling Will try a dose of intravenous Solu-Medrol today and continue with the current pain management for the headache Steroid is helping a bit but not yet totally and the patient still has headache as of this morning Will repeat another dose of Solu-Medrol and if the headache is not any better will get MRI with and without contrast A little better but not yet ready to be discharged Will get another dose of intravenous Solu-Medrol and possible prednisone On discharge tomorrow Headache is much better but is still complains some headache Will get MRI of the head with and without contrast to rule out any significant cause for the headache and also to rule out CSF leak Likely to be discharged this afternoon on prednisone taper Acute bronchitis Chest x-ray FINDINGS: There are median sternotomy wires and mediastinal surgical clips. No pneumothorax or pleural effusion is present. There is no consolidation or evidence for pulmonary edema. Opacity along the left heart border favors atelectasis or epicardial fat pad. There are old right rib fractures. No pneumothorax or pleural effusion. IMPRESSION: No acute cardiopulmonary findings. Continue ceftriaxone plus doxycycline day #3 and symptomatic treatment Clinically better without any respiratory symptoms We will finish the course of antibiotic No respiratory symptoms Remains stable-we will finish the course of antibiotic if it is not done yet History of CAD, status post stent, CABG Troponins negative No active chest pain Continue usual regimen of aspirin, Plavix, ranolazine, metoprolol No acute cardiac symptoms History of chronic systolic CHF On the dry side Will order gentle IV fluids x 1 L Continue Entresto-no more cardiac symptoms Colon cancer status post surgery Alcoholism Recurrent small bowel obstruction No GI symptoms Continue other medications include sertraline, etc. Disposition Lives at home PT and OT evaluation Likely discharge tomorrow if headache is controlled Not yet ready to be discharged Total Time Total Time Spent Total Time Spent (In Minutes): 35 minutes Discharge Plan Discharge Items Patient Disposition: Home - Self-Care Reason For Visit: ACUTE BRONCHITIS, HEADACHE Discharge Diagnosis: Acute bronchitis, headache without any apparent cause-improving, CAD status post CABG Condition on Discharge: Good Activity: Resume your previous activity Non-emergency contact: Primary Care Provider Call non-emergency contact if: you have any medication questions and your symptoms worsen Follow-up/Referrals: Miguel Suarez MD [Primary Care Provider] - (Date & Time 08/20/2023 10:40 AM Provider Miguel Suarez MD Department Family [facility] ) Diet: Heart Healthy Addtl Attending Provider Instructions: Please take precautions to avoid falls Take your medications as advised Please keep appointments with your healthcare provider If the headache persists you need to make an appointment with neurologist as an outpatient through your PCP Pending Studies at Discharge: No Stand-Alone Forms: My [employer], Smoking Cessation Medications and DC Order Prescriptions: New Cipro HC 0.2-1 % Drops,Suspension 4 drp OTL BID 7 Days Qty: 10 0RF prednisone 10 mg tablet 10 mg PO UD Qty: 20 0RF Rx Instructions: 4 p.o. daily for 2 days, 3 p.o. daily for 2 days, 2 p.o. daily for 2 days, 1 p.o. daily for 2 days Continued fluocinonide 0.05 % cream 1 applic topical BID PRN (Reason: Rash) sertraline 100 mg tablet 0 mg PO BID Patient Comments: took 50 mg this morning Rx Instructions: 100mg by mouth in the morning and 50mg by mouth at bedtime terazosin 2 mg Capsule 2 mg PO HS cholecalciferol (vitamin D3) [Vitamin D3] 5,000 unit Tablet 5,000 unit PO QAM clopidogrel [Plavix] 75 mg Tablet 75 mg PO QAM nitroglycerin [Nitrostat] 0.4 mg Tablet, Sublingual 0.4 mg Sublingual UD PRN (Reason: Chest Pain) Rx Instructions: ONE TABLET UNDER THE TONGUE EVERY 5 MINUTES UP TO 3 DOSES FOR CHEST PAIN. vitamin E 400 unit Capsule 400 unit PO QAM fluticasone propionate 50 mcg/actuation Geraldine,Suspension 2 spray INTRANASAL DAILY PRN (Reason: Nasal Congestion) aspirin 81 mg Tablet,Delayed Release (Dr/Ec) 81 mg PO AMPM Entresto 24-26 mg Tablet 1 tab PO BID pyridoxine (vitamin B6) [Vitamin B-6] 100 mg Tablet 100 mg PO QAM nitroglycerin 0.6 mg/hr patch 24 hour 0 patch topical DAILY Rx Instructions: Patient wears patch for 12 hours on 12 hours off. Original directions: 1 patch topically daily metoprolol succinate 50 mg tablet extended release 24 hr 50 mg PO QAM cyanocobalamin (vitamin B-12) [Vitamin B-12] 1,000 mcg Tablet 1,000 mcg PO DAILY famotidine 20 mg tablet 20 mg PO BID pantoprazole 40 mg tablet,delayed release (DR/EC) 40 mg PO BID Praluent Pen 150 mg/mL Pen Injector 150 mg SUBCUT .[id number] Patient Comments: Due 12/17 amlodipine 10 mg tablet 10 mg PO QAM allopurinol 300 mg tablet 150 mg PO QAM Rx Instructions: Take 150mg by mouth in the morning and 300mg by mouth in the evening ranolazine 500 mg tablet extended release 12 hr 500 mg PO BID [facility] Testosterone Cap 1 tab PO DAILY furosemide 20 mg tablet 20 mg PO DAILY PRN (Reason: Edema) Discharge Orders: Discharge Order (Routine); Ordered 08/16/23 Ordered By: Cielo Molina Admission Data Admit Date/Time: 08/09/23 15:33 Attending Provider: Cielo Molina Admit Provider: Abdoul Myers Primary Care Provider: Miguel Suarez Other Providers: Abdoul Myers; Andressa Hedrick; Chris Todd; Andressa Gary; Aiden Villavicencio; John Thakkar; Rogelio Starks; Yoel Gorman; Alissa Laguna; Frederick Gordon; Jonathon Brandt; Sheryl Taveras; Ferny Ortiz; Keerthi Smith; Michelle Valero; Yoel Cervantes Other Interventions: Discharge Summary Assessment (RN) Last Done: 08/16/23 15:10
== END 2023-08-16 15:59 | disposition home or self-care (01) | DRG 202 ==
LOC: ED 07:43 → EDINP 15:33 → SUATTDRO 15:33 → 4W 17:28 → 2N 08-13 22:00

== ENCOUNTER 2024-01-24 08:13 | Inpatient (IN) ==
[2024-01-24] MEDS ORDERED: 0.2 MICRON FILTER SET 1 EACH IV STA (08:23)
--- NOTE | 2024-01-24 08:23 | Emergency Department Note ---
Impression & Plan ST elevation (STEMI) myocardial infarction, Chest pain, V tach ED Provider Note NAME: DOROTA WINTER AGE: 73 SEX: M : 1950 ARRIVES VIA: Walk-In INFORMANT: Patient ED PROVIDER(S): Balaji Steen DO CHIEF COMPLAINT: Chest pain HPI: Patient is a 73-year-old male who presents to the ER for chest pressure associated with shortness of breath while at cardiac rehab. History of a CABG x 5 as well and his last stent placed in 2022. He notes he gets this pain intermittently. Denies any belly pain, nausea, vomiting, or diarrhea. No dysuria, urgency, or frequency. No other exacerbating or remitting factors. Additional report taken from cardiac rehab who showed that he went into a wide- complex tachycardia had ST segment elevations and consequently he was transferred to the ER emergently. ADDITIONAL HISTORY OBTAINED: Per HPI Chronic Medical/Social Conditions Affecting Care: Per HPI PAST MEDICAL HISTORY:See Below PAST SURGICAL HISTORY:See Below FAMILY HISTORY:See Below SOCIAL HISTORY:See Below HOME MEDICATIONS:See Below ALLERGIES:See Below VITALS:See Below PHYSICAL EXAMINATION: GENERAL: Sitting up in bed, alert, well appearing, well nourished, no distress, non-toxic EYE EXAM: normal conjunctiva. PERRL and EOM's grossly intact. OROPHARYNX: mucous membranes are moist NECK: supple, no nuchal rigidity, no adenopathy, non-tender LUNGS: Clear to auscultation. Normal chest wall mechanics HEART: no murmurs, S1 normal and S2 normal ABDOMEN: abdomen soft, non-tender, normo-active bowel sounds, no masses, no rebound or guarding. UPPER EXTREMITIES: upper extremities are grossly normal. LOWER EXTREMITIES: No pitting edema. NEURO EXAM: Normal sensorium, cranial nerves II-XII grossly intact, normal speech, no gross weakness of arms, no gross weakness of legs. MEDICAL DECISION MAKING: Patient is a 73-year-old male with a past medical history of a CABG, TIA, STEMI who presents the ER from cardiac rehab for chest pain. He was found to be in a wide-complex tachycardia with ST segment elevations following the resolution of the wide-complex tachycardia. This occurred after exertion. EKG was consistent with a STEMI and consequently a STEMI alert was not called. Labs were obtained and showed a mild leukopenia 3.9. No significant anemia. Mild thrombocytopenia at 125. BMP with a creatinine 1.5. LFTs bilirubin was unremarkable. Troponin was elevated at 22. Patient was pain-free upon arrival to the ER. He was loaded with heparin. Patient denies any head bleeds, coughing up blood, vomiting blood, urinating blood, black or dark tarry stools, or recent surgeries. He does take Plavix. He was also loaded with an amnio bolus and placed/ordered an amnio drip. Case was discussed with Dr. Tello who agreed with current treatment. He was taken emergently to [facility] Consults/Care Managements Discussions: Per [facility] Triage Nursing notes reviewed. Limited review of prior medical records performed Vital Signs: reviewed and remarkable for no significant abnormalities Differential diagnosis: Cardiac ischemia, aortic dissection, pulmonary embolism, pneumothorax, pneumonia, pericarditis, myocarditis, esophageal rupture, GERD, cholecystitis, pancreatitis, musculoskeletal, as well as other pathologies. ER treatment provided: See below Diagnostics interpreted by me include EKG and cardiac monitoring as listed below: -Cardiac Monitoring: An order was placed for continuous cardiac monitoring. The monitor shows a rate of 80 with sinus rhythm. -ECG: Sinus rhythm rate of [address] segment elevation in the inferior leads Depressions in the high lateral leads as well as the lateral leads QTc 413 EKG #2 Sinus rhythm rate 86 Left axis Inferior Q waves Nonspecific ST wave changes in the inferior leads ST depressions in V3 through V6 In comparison to previous ST segment elevations have improved -Laboratory studies:Interpreted by me as stated above in MDM and shown below. Imaging studies: Xrays: As interpreted by me: Portable AP upright 1 view of the chest shows no focal CTs show: none Procedures:none Critical Care: I have personally spent 35 minutes of critical care time in the direct management of this patient. This includes bedside care, interpretation of diagnostic studies, and testing, discussion with consultants, patient, and family members, and other required patient management activities. This 35 minutes is in excess of all separately billable procedures. Past Med/Surg History Problem List V tach (Acute) Chest pain (Acute) History of TIA (transient ischemic attack) 1980s-"SHOWS 7 ON SCANS" PER PT-F/U Wide-complex tachycardia Acute bronchitis Nausea (Acute) Cough (Acute) Headache (Acute) SOB (shortness of breath) (Acute) Ischemic cardiomyopathy ST elevation (STEMI) myocardial infarction (Acute) TIA (transient ischemic attack) (Chronic) Alcohol abuse (Chronic) Acute kidney injury (Acute) Bronchitis (Acute) Left shoulder pain (Acute) Near syncope (Acute) Syncope Small bowel obstruction (Acute) Abdominal pain (Acute) ETOH abuse Thrombocytopenia Encounter for pre-operative examination Arthritis of knee, left Ureteral calculus, left Bilateral nephrolithiasis Hydronephrosis, left Angina pectoris, unstable (Acute) H/O crescendo angina Elevated troponin (Acute) CHF exacerbation SOB (shortness of breath) (Acute) Elevated troponin (Acute) CHF (congestive heart failure) (Acute) Recent myocardial infarction (Acute) Acute heart failure with reduced ejection fraction and diastolic dysfunction CAD (coronary artery disease), [place] coronary artery LBBB (left bundle branch block) Acute on chronic renal insufficiency SBO (small bowel obstruction) (Acute) Infarction of spleen (Acute) Abnormal EKG Alcohol use Nocturnal hypoxia History of colon cancer dx 2017; treated surgically + oral chemo Depression BPH with obstruction/lower urinary tract symptoms CAD (coronary artery disease) (Chronic) "1992 - CABG x 5 09/2016 - [place] to SVG of OM 10/2016 - repeat cath, no lesions amenable to intervention, medical management recommended" Follows with Dr. Kaiser HTN (hypertension) (Chronic) GERD (gastroesophageal reflux disease) (Chronic) Well controlled and stable with med Dyslipidemia (Chronic) On injectable medications - cannot tolerate statins Gout (Chronic) No current issues BPH (benign prostatic hyperplasia) (Chronic) History of carpal tunnel surgery (Chronic) H/O arthroscopic knee surgery (Chronic) mult BL H/O toe surgery (Chronic) History of partial colectomy (Chronic) History of tonsillectomy and adenoidectomy (Chronic) Medical History Myocardial Infarction 11/20/2022 Temporomandibular joint disorder CLICKS NO LOCKING Prediabetes Diet controlled History of intestinal obstruction No recent issues History of TMJ disorder Occ jaw clicking - no jaw locking Hearing deficit [place] Has hearing aids - not wearing hearing aids Anxiety History of TIA (transient ischemic attack) -"SHOWS 7 ON SCANS" PER PT-F/U DR On home oxygen therapy 2 LPM qHS- does not always use secondary to nasal dryness History of COVID-19 08/2020; asymptomatic -TESTED BY [facility] Chronic idiopathic thrombocytopenia F/U PCP Surgical History History of colonoscopy H/O heart artery stent x 1 S/P CABG x 5 1992 [facility] [place] History of cardiac catheterization 2017 [facility] - 1 stent Family History Father Diabetes Esophagus cancer Stomach cancer Heart disease Other No family history of adverse response to anesthesia Social History Smoking Status: Former smoker Tobacco Type: Cigarettes Second Hand Exposure: No; Do You Dip or Chew Tobacco: No; Hx Alcohol Use: Yes Alcohol type: beer Hx Substance Use: No Preferred Language: Maltese Communication Ability: Effective Family Life Counselor Required: No Beliefs That Will Affect Care: None marital status: Current Living Situation: Family Current Living Situation Comment: family has apartment underneath patients home current occupational status: 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 Feels Safe at Home: Yes Assistive Devices: Oxygen - at Night Allergies Allergies Allergy/AdvReac Type Severity Reaction Status Date / Time Iodinated Contrast Media Allergy Severe Anaphylaxis Verified 08/09/23 10:12 [id number] Reductase Allergy Unknown MUSCLE Verified 08/09/23 10:12 Inhibitor ACHES [Eiggndk-Yuj-Trv Reductase Inhibitor] Home Meds Home Medications Medication Instructions Recorded Confirmed cholecalciferol (vitamin D3) 125 5,000 unit PO QAM 05/22/18 09/01/23 mcg (5,000 unit) tablet (Vitamin D3) clopidogrel 75 mg tablet (Plavix) 75 mg PO QAM 05/22/18 09/01/23 nitroglycerin 0.4 mg sublingual 0.4 mg sublingual UD PRN Chest Pain 05/22/18 09/01/23 tablet (Nitrostat) terazosin 2 mg capsule 5 mg PO HS 05/22/18 09/01/23 vitamin E 268 mg (400 unit) capsule 400 unit PO QAM 05/22/18 09/01/23 pyridoxine (vitamin B6) 100 mg 100 mg PO QAM 12/06/20 09/01/23 tablet (Vitamin B-6) fluocinonide 0.05 % topical cream 1 applic topical BID PRN Rash 12/31/20 09/01/23 sertraline 100 mg tablet 100 mg PO QAM 01/07/21 09/01/23 aspirin 81 mg tablet,delayed 81 mg PO AMPM 01/10/21 09/01/23 release fluticasone propionate 50 2 spray intranasal DAILY PRN Nasal 01/10/21 09/01/23 mcg/actuation nasal Congestion spray,suspension Formulas Testosterone Cap 1 tab PO DAILY 12/16/22 09/01/23 alirocumab 150 mg/mL subcutaneous 150 mg subcut .[id number] 12/16/22 09/01/23 pen injector (Praluent Pen) allopurinol 300 mg tablet 150 mg PO QAM 12/16/22 09/01/23 amlodipine 10 mg tablet 10 mg PO QAM 12/16/22 09/01/23 cyanocobalamin (vitamin B-12) 1,000 mcg PO DAILY 12/16/22 09/01/23 1,000 mcg tablet (Vitamin B-12) famotidine 20 mg tablet 20 mg PO BID 12/16/22 09/01/23 metoprolol succinate 50 mg 50 mg PO QAM 12/16/22 09/01/23 tablet,extended release 24 hr nitroglycerin 0.6 mg/hr 0 patch topical DAILY 12/16/22 09/01/23 transdermal 24 hour patch pantoprazole 40 mg tablet,delayed 40 mg PO BID 12/16/22 09/01/23 release ranolazine 500 mg tablet,extended 500 mg PO BID 12/16/22 09/01/23 release,12 hr furosemide 20 mg tablet 20 mg PO DAILY PRN Edema 01/16/23 09/01/23 sacubitril 24 mg-valsartan 26 mg 1 tab PO BID 04/02/23 09/01/23 tablet (Entresto) allopurinol 300 mg tablet 300 mg PO QPM 09/01/23 09/01/23 sertraline 50 mg tablet (Zoloft) 50 mg PO QPM 09/01/23 09/01/23 Results & Data (ED) Vital Signs Vital Signs - 24 hr 01/24/24 08:15 01/24/24 08:25 01/24/24 08:31 Temperature 36.5 C Temperature Source Temporal Artery Scan Pulse Rate 81 76 Pulse Rate [Apical] 74 Respiratory Rate 20 16 Respiratory Effort / Characteristics Non-Labored Spontaneous Respiratory Depth Normal Blood Pressure 117/90 Blood Pressure [Left Arm] 129/87 Blood Pressure Mean 99 Blood Pressure Mean [Left Arm] 101 Pulse Oximetry 97 97 Oxygen Delivery Method Room Air Room Air Sepsis Recent Fever Within 48 Hours No Sepsis New/Unexplained Change in Mental Status No Sepsis Action Taken by Nursing No Action Required 01/24/24 08:31 Temperature Temperature Source Pulse Rate 74 Pulse Rate [Apical] Respiratory Rate 16 Respiratory Effort / Characteristics Respiratory Depth Blood Pressure Blood Pressure [Left Arm] Blood Pressure Mean Blood Pressure Mean [Left Arm] Pulse Oximetry 97 Oxygen Delivery Method Room Air Sepsis Recent Fever Within 48 Hours Sepsis New/Unexplained Change in Mental Status Sepsis Action Taken by Nursing Laboratory Data 01/24/24 08:17 01/24/24 08:17 Lab Results 01/24/24 01/24/24 Range/Units 08:17 08:20 WBC 3.92 L (4.8-10.8) K/ul RBC 4.62 L (4.70-6.10) M/uL Hgb 14.8 (14.0-18.0) g/dl POC Hgb 15.0 (14.0-18.0) g/dl Hct 43.2 (42.0-52.0) % POC Hct 44 (42-52) % MCV 93.5 (80.0-100.0) fL MCH 32.0 (25.0-34.0) pg MCHC 34.3 (32.0-36.0) g/dL RDW Std Deviation 49.0 H (36.4-46.3) fL RDW Coeff of Long 14.4 (11.5-14.5) % Plt Count 125 L (130-400) K/uL MPV 10.3 (9.4-12.4) fL Immature Gran % (Auto) 0.3 % Neut % (Auto) 67.1 % Lymph % (Auto) 20.4 % [place] % (Auto) 7.9 % Eos % (Auto) 3.3 % Baso % (Auto) 1.0 % Neut # (Auto) 2.63 (1.40-6.50) K/uL Lymph # (Auto) 0.80 L (1.20-3.40) K/uL [place] # (Auto) 0.31 (0.11-0.59) K/uL Eos # (Auto) 0.13 (0.00-0.50) K/uL Baso # (Auto) 0.04 (0.00-0.20) K/uL Immature Gran # (Auto) 0.01 (0.01-0.20) K/uL POC Sodium 143 (135-144) mmol/L Sodium 142 (136-145) mmol/L POC Potassium 4.0 (3.3-5.0) mmol/L Potassium 4.0 (3.5-5.1) mmol/L POC Chloride 105 (101-112) mmol/L Chloride 106 (98-107) mmol/L Carbon Dioxide 26 (21-32) mmol/L POC Total CO2 25 (24-31) mmol/L Anion Gap 10 (3-11) POC Anion Gap 17.0 (16-25) mmol/L POC BUN 25 H (7-18) mg/dl BUN 28 H (6-23) mg/dl Creatinine 1.53 H (0.6-1.4) mg/dl POC Creatinine 1.5 H (0.6-1.3) mg/dl Est Cr Clr Drug Dosing 48.4 ml/min Est GFR ( Amer) 51.5 ml/min Est GFR (Non-Af Amer) 44.5 ml/min BUN/Creatinine Ratio 18.3 (10-20) Glucose 131 H (70-99(Fasting)) mg/dl POC Glucose (other) 123 H (70-99) mg/dl Calcium 9.7 (8.6-10.3) mg/dl POC Ioniz Calcium Nicola 1.18 (1.12-1.32) mmol/l Total Bilirubin 0.5 (0.2-1.0) mg/dl AST 17 (13-39) U/L ALT 16 (7-52) U/L Alkaline Phosphatase 41 (34-104) U/L Troponin I High Sens 22.3 H (0-20) pg/ml Total Protein 6.8 (6.0-8.3) gm/dl Albumin 4.3 (3.4-5.0) gm/dl Globulin 2.5 (2.5-4.0) gm/dl Albumin/Globulin Ratio 1.7 (0.9-2) Lipase 28 (11-82) U/L Administered Medications Heparin Sodium/Dextrose (Heparin Sodium/Dextrose) 25,000 units in 500 mls @ 19 mls/hr IV .Q24H [place]; Protocol Stop: 02/23/24 08:44 Last Admin: 01/24/24 12:40 Dose: 950 units/hr, 19 mls/hr Documented By: CASSIUS Co-signed By: SOHAN Sodium Chloride (Nss) 1,000 mls @ 100 mls/hr IV .Q10H [place] Stop: 01/24/24 15:29 Last Admin: 01/24/24 12:40 Dose: 100 mls/hr Documented By: CASSIUS Discontinued Medications Amiodarone HCl (Amiodarone Iv Bolus & Drip) 1 each IV NOW STA; Protocol Stop: 01/24/24 08:24 Last Admin: 01/24/24 13:07 Dose: Not Given Documented By: CASSIUS Aspirin (Aspirin Chew 324 Mg) 324 mg PO NOW STA Stop: 01/24/24 08:21 Last Admin: 01/24/24 08:24 Dose: 324 mg Documented By: JEAN MARIE Diphenhydramine HCl (Diphenhydramine 50 Mg/Ml Vial) Confirm Administered Dose 50 mg .ROUTE .STK-MED ONE Stop: 01/24/24 08:24 Last Admin: 01/24/24 09:13 Dose: 25 mg Documented By: EDWARDO Fentanyl Citrate (Fentanyl Citrate Pf 100 Mcg/2 Ml Vial) Confirm Administered Dose 100 mcg .ROUTE .STK-MED ONE Stop: 01/24/24 08:22 Last Increment: 01/24/24 09:53 Dose: 50 mcg Documented By: EDWARDO Gabapentin (Gabapentin 600 Mg Tab) 1,200 mg PO NOW ONE Stop: 01/24/24 12:35 Last Admin: 01/24/24 13:01 Dose: 1,200 mg Documented By: CASSIUS Heparin Sodium (Porcine) (Heparin (Porcine) 1000 Unit/Ml 10 Ml (Practical Nursing Teacher Use Only)) Confirm Administered Dose 10,000 units .ROUTE .STK-MED ONE Stop: 01/24/24 08:22 Last Admin: 01/24/24 09:49 Dose: Not Given Documented By: EDWARDO Heparin Sodium (Porcine) (Heparin Sod (Porcine) 1000 Unit/Ml) 1 units IV NOW ONE Stop: 01/24/24 08:38 Last Admin: 01/24/24 12:58 Dose: Not Given Documented By: CASSIUS Heparin Sodium/Dextrose (Heparin Iv Adult Wt-Based Low-Dose W/ Initial Bolus Protocol) 1 each IV NOW STA; Protocol Stop: 01/24/24 08:22 Last Admin: 01/24/24 12:57 Dose: Not Given Documented By: CASSIUS Heparin Sodium/Sodium Chloride (Heparin In Nss Infusion 1000 Unit/500 Ml (2 U/Ml) Bag) Confirm Administered Dose 3,000 units IV .STK-MED ONE Stop: 01/24/24 08:23 Last Admin: 01/24/24 09:13 Dose: 3,000 units Documented By: SHARON Amiodarone HCl/Dextrose (Nexterone / D5w) 150 mg in 100 mls @ 600 mls/hr IV NOW STA Stop: 01/24/24 08:32 Last Infusion: 01/24/24 13:07 Dose: Infused Documented By: CASSIUS Co-signed By: CARO Admin: 01/24/24 08:27 Dose: 600 mls/hr Documented By: JEAN MARIE Co-signed By: SU Amiodarone HCl/Dextrose (Nexterone / D5w) 360 mg in 200 mls @ 33.333 mls/hr IV ONE ONE Stop: 01/24/24 14:33 Last Admin: 01/24/24 13:07 Dose: Not Given Documented By: CASSIUS Famotidine (Pepcid 20mg Iv Push) 20 mg in 5 mls @ 2.5 mls/min IV ONE ONE Stop: 01/24/24 09:01 Last Admin: 01/24/24 09:14 Dose: 2.5 mls/min Documented By: EDWARDO Iodixanol (Iodixanol (Visipaque) 320 Mg/Ml 100ml) Confirm Administered Dose 1 ml IV .STK-MED ONE Stop: 01/24/24 08:23 Last Admin: 01/24/24 09:53 Dose: 110 ml Documented By: SHARON Ioversol (Optiray 350) Confirm Administered Dose 1 ml .ROUTE .STK-MED ONE Stop: 01/24/24 08:23 Last Admin: 01/24/24 09:50 Dose: Not Given Documented By: SHARON Methylprednisolone (Methylprednisolone 125 Mg/2 Ml Vial) Confirm Administered Dose 125 mg .ROUTE .STK-MED ONE Stop: 01/24/24 08:24 Last Admin: 01/24/24 09:13 Dose: 125 mg Documented By: EDWARDO Midazolam HCl (Midazolam Hcl 1 Mg/Ml 2ml Vial) Confirm Administered Dose 2 mg .ROUTE .STK-MED ONE Stop: 01/24/24 08:22 Last Admin: 01/24/24 09:49 Dose: 2 mg Documented By: EDWARDO Miscellaneous (Stat Iv Infusion Titration Per Protocol) 1 each N/A NOW STA Stop: 01/24/24 08:24 Last Admin: 01/24/24 12:57 Dose: Not Given Documented By: CASSIUS Miscellaneous (Rapid Sequence Induction Bag) Confirm Administered Dose 1 each N/A .STK-MED ONE Stop: 01/24/24 09:26 Last Admin: 01/24/24 12:58 Dose: Not Given Documented By: CASSIUS Nicardipine HCl (Nicardipine Hcl Inj 2.5 Mg/Ml 10 Ml Amp) Confirm Administered Dose 25 mg .ROUTE .STK-MED ONE Stop: 01/24/24 08:22 Last Admin: 01/24/24 09:49 Dose: Not Given Documented By: EWDARDO Nitroglycerin/Dextrose (Nitroglycerin/D5w 100mcg/Ml 20ml Syr) Confirm Administered Dose 2,000 mcg .ROUTE .STK-MED ONE Stop: 01/24/24 08:23 Last Admin: 01/24/24 09:50 Dose: Not Given Documented By: EDWARDO Imaging Data Radiologist's Impression: Chest X-Ray 01/24/24 08:20 XR chest 1V portable CLINICAL HISTORY: Chest pain, nonspecific TECHNIQUE: Single frontal radiograph of the chest was obtained. Comparison: Comparison is made to chest radiograph 09/01/2023 FINDINGS: Median sternotomy wires are unchanged. Old healed left rib fractures are seen. Calcified aortic knob is seen. The lungs are clear. No evidence of pleural effusion or pneumothorax. IMPRESSION: No acute chest disease. ACT 112: Negative or not required by law. Electronically signed by: Terry Shine M.D. 01/24/2024 8:33 AM Discharge Plan Visit Data Chief Complaint: Chest Pain ED Provider: Balaji Steen Discharge Problem: ST elevation (STEMI) myocardial infarction, Chest pain, V tach Patient Disposition: Admitted As Inpatient Discharge Instructions Interventions: ED Discharge Assessment Last Done: 01/24/24 08:33 Discharge Problem: ST elevation (STEMI) myocardial infarction Qualifiers: Involved coronary artery: unspecified coronary artery Qualified Code(s): I21.3 - ST elevation (STEMI) myocardial infarction of unspecified site Chest pain Qualifiers: Chest pain type: unspecified Qualified Code(s): R07.9 - Chest pain, unspecified
[2024-01-24] MEDS: ASPIRIN CHEW 324 MG PO STA (08:24)
[2024-01-24] MEDS: AMIODARONE / D5W 150 MG/100 ML BAG IV STA (08:27)
[2024-01-24 08:32] LABS: iSTAT Creatinine 1.5 mg/dl (0.6-1.3); iSTAT Ionized Calcium 1.18 mmol/l (1.12-1.32)
--- NOTE | 2024-01-24 08:35 | XRay Report ---
XR chest 1V portable CLINICAL HISTORY: Chest pain, nonspecific TECHNIQUE: Single frontal radiograph of the chest was obtained. Comparison: Comparison is made to chest radiograph 09/01/2023 FINDINGS: Median sternotomy wires are unchanged. Old healed left rib fractures are seen. Calcified aortic knob is seen. The lungs are clear. No evidence of pleural effusion or pneumothorax. IMPRESSION: No acute chest disease. ACT 112: Negative or not required by law. Electronically signed by: Terry Shine M.D. 01/24/2024 8:33 AM
[2024-01-24 08:36] LABS: Basophils # (auto) 0.04 K/uL (0.00-0.20); Eosinophils # (auto) 0.13 K/uL (0.00-0.50); Eosinophils % (auto) 3.3 %; Hematocrit (blood only) 43.2 % (42.0-52.0); Hemoglobin 14.8 g/dl (14.0-18.0); Immature Granulocytes # (auto) 0.01 K/uL (0.01-0.20); Immature Granulocytes % (auto) 0.3 %; Lymphocytes % (auto) 20.4 %; Mean Corpuscular Hgb Conc 34.3 g/dL (32.0-36.0); Mean Corpuscular Volume 93.5 fL (80.0-100.0); Mean Platelet Volume 10.3 fL (9.4-12.4); Monocytes # (auto) 0.31 K/uL (0.11-0.59); Monocytes % (auto) 7.9 %; Neutrophils # (auto) 2.63 K/uL (1.40-6.50); Neutrophils % (auto) 67.1 %; Platelet Count 125 K/uL (130-400); RDW Coefficient of Variation 14.4 % (11.5-14.5); Red Blood Count 4.62 M/uL (4.70-6.10); White Blood Count 3.92 K/ul (4.8-10.8)
--- NOTE | 2024-01-24 08:46 | Pre Anesthesia Assessment ---
Date of Service January 24, 2024 Pre Sedation Assessment Vital Signs Temp Pulse Pulse Resp BP BP Pulse Ox 01/24/24 08:31 74 16 97 01/24/24 08:31 74 16 129/87 97 01/24/24 08:25 76 01/24/24 08:15 97.7 F 81 20 117/90 97 O2 Del Method 01/24/24 08:31 Room Air 01/24/24 08:31 Room Air 01/24/24 08:25 01/24/24 08:15 Room Air Cardiovascular + regular rate Respiratory + respiratory effort normal Pre-Sedation Airway Assessment Smoking Status: Former smoker Hx Sleep Apnea: No Hx Difficult Intubation: No Short, Thick Neck: No Thyromental Distance: < 3.5 Finger Breadths Oral Cavity: + Dental Abnormalities Mallampati Class: III ASA: ASA4 Procedure Planning Contraindications for Sedation: none Current Medications Reviewed: Yes Notes The planned sedation has been discussed with the patient. Informed Consent was o btained. I have identified the patient, determined the appropriateness of sedation and have assessed the patient immediately prior to the procedure. All medicine(s) and interventions are by my order.
[2024-01-24 08:49] LABS: Albumin Globulin Ratio 1.7 (0.9-2); Albumin Level 4.3 gm/dl (3.4-5.0); BUN Creatinine Ratio 18.3 (10-20); Bilirubin,Total 0.5 mg/dl (0.2-1.0); Calcium 9.7 mg/dl (8.6-10.3); Creatinine Clr Calc Pharmacy 48.4 ml/min; Est GFR (African American) 51.5 ml/min; Est GFR (Non-African American) 44.5 ml/min; Globulin 2.5 gm/dl (2.5-4.0); Total Protein 6.8 gm/dl (6.0-8.3)
[2024-01-24 08:55] LABS: Troponin I High Sensitivity 22.3 pg/ml (0-20)
--- OUTSIDE RECORDS SUMMARY | 2024-01-24 09:01 | External Medical Summary | Summary of Care ---
Author Name Unknown Organization [facility] Address [address] [place] [address] Phone [phone] Care Team Providers Care Bromination Equipment Operator Name Role Phone Miguel Suarez MD Primary Care Provider + Reason for Visit * Auth/Cert Specialty Diagnoses / Procedures Referred By Kristin glover Referred To Contact Diagnoses History of colon polyps History of colon cancer History of colon polyps [Z86.010] History of colon cancer [Z85.038] Procedures COLONOSCOPY, DIAGNOSTIC (RECTUM) COLONOSCOPY FLEXIBLE PROXIMAL DIAGNOSTIC Referral ID Status Reason Start Date Expiration Date Visits Re quested Visits Authorized [id number] Encounter Details Date Type Department Care Team (Latest Contact Info) Description 01/14/2024 12:52 PM EDT - 01/14/2024 4:22 PM EDT Hospital Encounter [facility]O [facility], Endoscopy Room [facility] [address] [place] [phone] Milvia Arnold MD [address] [place] [id number] Colonoscopy Discharge Disposition: Home - Self Care Allergies Active Allergy Reactions Criticality Noted Date Comments Atorvastatin 03/04/2018 Myalgia Fluticasone Furoate-Vilanterol 12/24/2021 Tightness in chest Rosuvastatin Calcium 03/04/2018 myalgia Iodinated Contrast Media Anaphylaxis,Itching High 04/26/2008 Contrast dye Other Allergy (See Comments) 04/24/2022 Product Containing 6-lbhkcev-7-methylgl utaryl-coenzyme A Reductase Inhibitor (product) Simvastatin 03/04/2018 myalgia documented as of this encounter (statuses as of 01/15/2024) Medications Medication Sig Dispensed Refills Start Date End Date Status Cholecalciferol 5000 UNITS TABS Take 5,000 Units by mouth in the morning. Active pyridOXINE (VITAMIN B-6) 100 MG Tablet Take 1 Tablet by mouth in the morning. Active oxygen GAS 2 LPM bled through NC during hours of sleep 1 Each 0 Active Additional Information Patient not taking.Reported on 01/10/2024 NF Formulas Testosterone Oral Capsule Take 1 Capsule by mouth every morning. Active Allopurinol 300 MG Oral Tablet (Zyloprim)Indica tions:Chronic gout without tophus, unspecified cause, unspecified site TAKE ONE-HALF TABLET BY MOUTH EVERY MORNING AND 1 TABLET IN THE EVENING 135 Tablet 3 3 Active Additional Information Patient taking differently: Take 2 tabs every evening, Reported on 01/10/2024 Nitroglycerin 0.4 MG Sublingual Tablet Sublingual (Nitrostat)Indic ations:Atheroscl erosis of [place] coronary artery of [place] heart with other form of angina pectoris (HCC),Exertional angina (HCC),Coronary artery disease involving coronary bypass graft of [place] heart with angina pectoris (HCC) PLACE 1 TAB UNDER THE TONGUE EVERY 5 MINUTES NEEDED FOR PAIN, CHEST. UP TO 3 DOSES IN 15 MINUTES 25 Tablet 1 3 Active Additional Information Patient not taking.Reported on 01/14/2024 Aspirin 81 MG Oral Tablet Chewable Chew & swallow 1 Tablet by mouth in the morning. 34 Tablet 11 3 Active Vitamin E 400 UNIT Oral Capsule (Aquasol E) Take 1 Capsule by mouth in the morning. Active Vitamin B-12 1000 MCG Oral Tablet (Cyanocobalamin) Take 1 Tablet by mouth in the morning. Active Famotidine 20 MG Oral Tablet (Pepcid)Indicati ons:Chronic nausea TAKE 1 TABLET BY MOUTH EVERY DAY IN THE MORNING AND BEFORE BEDTIME 180 Tablet 3 3 Active Clopidogrel Bisulfate 75 MG Oral Tablet (pLAVix)Indicati ons:Atherosclero sis of coronary artery of [place] heart with stable angina pectoris, unspecified vessel or lesion type (HCC),Cerebrovas cular disease, arteriosclerotic , post-stroke TAKE 1 TABLET BY MOUTH EVERY DAY 90 Tablet 3 3 Active Metoprolol Succinate ER 25 MG Oral Tablet Extended Release 24 Hour (toPROL XL) Take 1 Tablet by mouth in the morning. 90 Tablet 3 4 Active Terazosin HCl 2 MG Oral Capsule TAKE 1 CAPSULE BY MOUTH EVERYDAY AT BEDTIME 90 Capsule 3 4 Active Ranolazine ER 500 MG Oral Tablet Extended Release 12 Hour (Ranexa) TAKE 1 TABLET BY MOUTH IN THE MORNING AND BEFORE BEDTIME 180 Tablet 3 4 Active Repatha SureClick 140 MG/ML Subcutaneous Solution Auto-injector (evolocumab) Inject 140 mg (1 pen) under the skin every 14 days. 6 mL 3 4 Active Pantoprazole Sodium 40 MG Oral Tablet Delayed Release (Protonix) TAKE 1 TABLET BY MOUTH EVERY DAY IN THE MORNING AND AT BEDTIME 180 Tablet 4 Active Nitroglycerin 0.6 MG/HR Transdermal Patch 24 Hour (Nitro-Dur) PLACE 1 PATCH TOPICALLY ON THE SKIN IN THE MORNING REMOVE AFTER 12 HOURS 90 Patch 3 4 Active Furosemide 20 MG Oral Tablet (Lasix)Indicatio ns:HTN, goal below 140/80,Chronic combined systolic and diastolic congestive heart failure (HCC) TAKE 1 TABLET BY MOUTH NEEDED (SWELLING, WEIGHT GAIN AND SHORTNESS OF BREATH). 90 Tablet 3 4 Active Magnesium 500 MG Oral Capsule Take 1 Capsule by mouth in the morning. Active Co Q-10 100 MG Oral Capsule Take by mouth every morning. Take 2 tabs daily Active Vitamin C Plus 1000 MG Oral Tablet Take by mouth every evening. Active Sacubitril-Valsa rtan 24-26 MG Oral Tablet (Entresto) Take 1 Tablet by mouth in the morning and 1 Tablet in the evening. 90 Tablet 3 4 Active Sertraline HCl 100 MG Oral Tablet (Zoloft)Indicati ons:Episode of recurrent major depressive disorder, unspecified depression episode severity (HCC),ARMOND (generalized anxiety disorder),Memory changes Take 2 Tablets by mouth daily with dinner. 4 Active Sacubitril-Valsa rtan 24-26 MG Oral Tablet (Entresto) Take 1 Tablet by mouth in the morning and 1 Tablet in the evening. PATIENT REQUESTING 90 DAY SUPPLY - THIS REPLACES PREVIOUS PRESCRIPTION ON FILE. 180 Tablet 30 3 01/12/20 24 Discontinued(Re fill) Furosemide 20 MG Oral Tablet (Lasix) Take 1 Tablet by mouth as needed (swelling, weight gain and shortness of breath). 90 Tablet 3 3 01/10/20 24 Discontinued documented as of this encounter (statuses as of 01/15/2024) Active Problems Problem Noted Date Diagnosed Date Memory changes 12/10/2023 ARMOND (generalized anxiety disorder) 12/10/2023 Chronic kidney disease, stage 3a 09/20/2023 Overview: Per CKD protocol Dizziness 09/09/2023 Chronic combined systolic an d diastolic congestive heart failure 01/21/2023 Alcohol use 01/21/2023 HFrEF (heart failure with reduced ejection fract ion) 12/22/[address] elevation myocardial infarction (S CHARLES) 12/22/2022 Primary osteoarthritis of both first carpometaca rpal joints 06/30/2022 Dysphagia 03/03/2022 Chronic nausea 03/03/2022 Primary osteoarthritis of fi rst carpometacarpal joint of right hand 12/27/2020 Chronic major depressive disorder, recurrent epi sode 04/12/2019 Atherosclerosis of [place] co ronary artery of [place] heart with stable angina pectoris 07/06/2018 Lung nodules 05/28/2018 Splenomegaly 04/09/2018 History of colon cancer 04/08/2018 Statin intolerance 01/29/2018 Stable angina 02/01/2017 Coronary artery disease invo lving coronary bypass graft of [place] heart with angina pectoris 09/14/2016 S/P angioplasty [...] 08/18/2001 Overview: ICD-10 update of inactive term documented as of this encounter (statuses as of 01/15/2024) Resolved Problems Problem Noted Date Diagnosed Date Resolved Date SBO (small bowel obstruction) 09/09/2023 09/09/2023 Overview: 04/23 admit. 11/21 [facility] improved w/NPO. Cont ETOH abuse Systolic congestive heart failure 12/03/2022 12/10/2023 ROD (acute kidney injury) 11/26/[address] elevation myocardia l infarction (STEMI) 11/21/2022 11/26/2022 Swelling of right hand 04/14/202201/11 Puncture wound 04/14/2022 01/12/2024 COPD, group A, by GOLD 2017 classification 11/20/2019 11/14/2021 Overview: Per COPD GOLD Classification Well adult exam 04/12/2019 12/10/2023 Overview: Daughter-Sherly. 03/31 inferior AK? Cath- no new lesions of CABG. 12/29 TTE [facility] similar. 11/28 new stent. TTE 45-49%. Mod wall motion abn. Mild AR. Mild dilated A root/ascend 10/28 6MWT ok. 10/27 UE EMG ok. 2017 colon 2mm polyp. Mak 5y 2014 colon CA COPD, mild 07/09/2018 11/23/2019 Overview: 2018 PFTs mild obstruction. Breo started--feels breathing is better. Thrombocytopenia 07/06/2018 10/25/2019 Exertional angina 10/22/2016 01/01/2017 Coronary atherosclerosis of [place] coronary artery 12/26/2013 03/22/2019 Colon cancer 10/06/2013 08/18/2017 Cancer Staging:Clinical:Stage IIIA(T1, N1, M0) - Signed by Aiden Beauchamp MD on 11/24/2013 Pathologic: Unsigned Overview: 09/29/13 S/p partial sigmoid colectomy-Dr Steiner. Pathologic stage pT1N1a. (metastatic adenocarcinoma 08/25 nodes, invading submucosa) Pre-op testing 09/13/2013 02/25/2017 Routine general medical exam ination at a health care facility 01/25/2013 05/30/2018 Overview: 03/26 CT chest [facility] 6mm nodule. Mak 6mo ordered. 11/24 stopped crestor-myalgias. 08/25 CONSIDER EGD? 10/24 colon-2mm polyp PATH tubular adenoma. Mak 5y Preconetmplative to cut back ETOH. Stable low plat/wbc. 05/24 periph smear done ok. Colonoscopy 09/[address] Sebastian-for Synvisc Needs HARRIET fall 08/22 25mm colon polyp--Path---cancer--resected. 01/19 prostate discussed-declined 11/29/12 RUQ US @ [facility]--possible fatty infiltrate 11/11/12 DEXA @[facility]-- T -1.0 hip 07/20 Rib Xray-Right 7-9th rib frx 04/01/10CT [facility] @[facility]-mild osteophytes 2007 colonoscopy-WNL. 08/14/03. Colonoscopy-The polyp at 45 cm showed moderate atypia. [employer] current use of ant icoagulant therapy 12/24/2003 11/21/2012 Overview: ICD-10 update of inactive term BENIGN NEOPLASM LG BOWEL 08/31/2003 Calculus of kidney 08/18/2001 8 Coronary atherosclerosis Overview: S/p CABG x5 06/24/1993 VICTORIA-D1-LAD TERRY-RCA SVG-OM1 SVG-OM2 PURE HYPERCHOLESTEROLEM 07/09 Overview: Per Lipid Taxonomy. TIA (transient ischemic attack) 02/25/2017 documented as of this encounter (statuses as of 01/15/2024) Immunizations Name Administration Dates Next Due COVID-19 [...] Date Smoking Tobacco: Former Cigarettes 1 10 1 - 05/29/1989 Smokeless Tobacco: Former Alcohol Use Standard Drinks/Week Comments Yes 0 (1 standard drink = 0.6 oz pure alcohol) a couple drinks 2-3 days a week PHQ-2 Answer Date Recorded PHQ Adult Total Score 2 07/20/2023 Hunger Vital Sign Answer Date Recorded Within [...] Sign Reading Time Taken Comments Blood Pressure 144/83 01/14/2024 4:07 PM EDT Pulse 61 01/14/2024 4:07 PM EDT Temperature 36.2 C (97.2 F) 01/14/2024 4:07 PM ED T Respiratory Rate 18 01/14/2024 4:07 PM EDT Oxygen Saturation 96% 01/14/2024 4:07 PM EDT Inhaled Oxygen Concentration - - Weight 90.7 kg (200 lb) 01/14/2024 2:32 PM EDT Height 172.1 cm (5' 7.76") 01/14/2024 2:32 PM ED T Body Mass Index 30.63 01/14/2024 2:32 PM EDT documented in this encounter Functional Status [...] bad" 11/20/2022 documented as of this encounter H&P Notes * Milvia Arnold MD - 01/14/2024 3:23 PM EDT Endoscopy Pre-Procedure Assessment Name: Curtis Jamil Date: 01/14/2024 Time: 3:23 PM Procedure(s): Colonoscopy; with Indication(s) of post cancer surveillance Endoscopy Pre-Procedure Assessment: Prior to the procedure, the patient is identified. The patient's history, medications and allergieshave been reviewed. The patient is competent. The risks and benefits of the proposed procedure and the planned sedation have been discussed with the patient. All questions have been answered and informed consent for the procedure has been obtained. Prior to Admission medications Medication Sig Last Dose Discont. Sacubitril-Valsartan 24-26 MG Oral Tablet (Entresto) Take 1 Tablet by mouth in the morning and 1 Tablet in the evening. Past Week Sertraline HCl 100 MG Oral Tablet (Zoloft) Take 2 Tablets by mouth daily with dinner. Past Week Co Q-10 100 MG Oral Capsule Take by mouth every morning. Take 2 tabs daily Past Week Furosemide 20 MG Oral Tablet (Lasix) TAKE 1 TABLET BY MOUTH NEEDED (SWELLING, WEIGHT GAIN AND SHORTNESS OF BREATH). Past Month Magnesium 500 MG Oral Capsule Take 1 Capsule by mouth in the morning. Past Week Vitamin C Plus 1000 MG Oral Tablet Take by mouth every evening. Past Week Nitroglycerin 0.6 MG/HR Transdermal Patch 24 Hour (Nitro-Dur) PLACE 1 PATCH TOPICALLY ON THE SKIN IN THE MORNING REMOVE AFTER 12 HOURS Past Week Pantoprazole Sodium 40 MG Oral Tablet Delayed Release (Protonix) TAKE 1 TABLET BY MOUTH EVERY DAY IN THE MORNING AND AT BEDTIME 01/13/2024 Repatha SureClick 140 MG/ML Subcutaneous Solution Auto-injector (evolocumab) Inject 140 mg (1 pen) under the skin every 14 days. Past Week Ranolazine ER 500 MG Oral Tablet Extended Release 12 Hour (Ranexa) TAKE 1 TABLET BY MOUTH IN THE MORNING AND BEFORE BEDTIME Past Week Terazosin HCl 2 MG Oral Capsule TAKE 1 CAPSULE BY MOUTH EVERYDAY AT BEDTIME Past Week Metoprolol Succinate ER 25 MG Oral Tablet Extended Release 24 Hour (toPROL XL) Take 1 Tablet by mouth in the morning. 01/13/2024 Clopidogrel Bisulfate 75 MG Oral Tablet (pLAVix) TAKE 1 TABLET BY MOUTH EVERY DAY Past Week Famotidine 20 MG Oral Tablet (Pepcid) TAKE 1 TABLET BY MOUTH EVERY DAY IN THE MORNING AND BEFORE BEDTIME 01/13/2024 Vitamin B-12 1000 MCG Oral Tablet (Cyanocobalamin) Take 1 Tablet by mouth in the morning. Past Week Vitamin E 400 UNIT Oral Capsule (Aquasol E) Take 1 Capsule by mouth in the morning. Past Week Aspirin 81 MG Oral Tablet Chewable Chew & swallow 1 Tablet by mouth in the morning. Past Week Allopurinol 300 MG Oral Tablet (Zyloprim) TAKE ONE-HALF TABLET BY MOUTH EVERY MORNING AND 1 TABLET IN THE EVENING Patient taking differently: Take 2 tabs every evening Past Week NF Formulas Testosterone Oral Capsule Take 1 Capsule by mouth every morning. Past Week pyridOXINE (VITAMIN B-6) 100 MG Tablet Take 1 Tablet by mouth in the morning. Past Week Cholecalciferol 5000 UNITS TABS Take 5,000 Units by mouth in the morning. Past Month Fluticasone Propionate 50 MCG/ACT Nasal Suspension (Flonase) Administer 1 [place] into nostril daily as needed. Over 30 Days Nitroglycerin 0.6 MG/HR Transdermal Patch 24 Hour (Nitro-Dur) Place 1 Patch over 12 hours topicallyon the skin in the morning. Yes Nitroglycerin 0.4 MG Sublingual Tablet Sublingual (Nitrostat) PLACE 1 TAB UNDER THE TONGUE EVERY 5 MINUTES NEEDED FOR PAIN, CHEST. UP TO 3 DOSES IN 15 MINUTES Patient not taking: Reported on 01/14/2024 Over 30 Days oxygen GAS 2 LPM bled through NC during hours of sleep Patient not taking: Reported on 01/10/2024 Not Taking Review of patient's allergies indicates: Allergen Reactions Iodinated Contrast Media Anaphylaxis and Itching Contrast dye Atorvastatin Myalgia Breo Ellipta [Fluticasone Furoate-Vilanterol] Tightness in chest Crestor [Rosuvastatin Calcium] myalgia Other Allergy (See Comments) Product Containing 0-thdbmqs-4-methylglutaryl-coenzyme A Reductase Inhibitor (product) Simvastatin myalgia BP 135/87 | Pulse 60 | Temp 36.2 C (97.2 F) (Tympanic) | Resp 17 | Ht 1.721 m (5' 7.76") | Wt 90.7 kg (200 lb) | SpO2 99% | BMI 30.63 kg/m | BSA 2.08 m Physical Exam: Mental Status Examination: alert and oriented. Airway Examination: normal oropharyngeal airway and neck mobility. Respiratory Examination: clear to auscultation. CV Examination: normal. ASA Grade: II - A patient with mild systemic disease. Abdomen: negative This patient has undergone a preprocedural evaluation. A determination has been made to proceed with the planned procedure under [facility] procedural guidelines and the [facility] Non-Emergent, Elective Medical Services and Treatment Recommendations (published on 11-14-19). The community and hospital prevalence of COVID-19 has been discussed as well as this patient's specific risks associated with SARS-CoV-19 infection. Based upon the clinical acuity and patient-specific care considerations, this procedure is deemed a Tier II - Intermediate acuity treatment or service with either progression or the threat of progressive disease related to the delay in treatment. Not providing the service has the potential for increasing morbidity or mortality. After reviewing the risks and benefits, the patient is deemed in satisfactory condition to undergo the procedure. The anesthesia plan is to use general anesthesia. Milvia Arnold MD 01/14/2024 documented in this encounter Procedure Notes * Miguel Suarez MD - 01/14/2024 3:36 PM EDTAssociated Order(s): COLONOSCOPY [facility] Patient Name: Curtis Jamil Procedure Date: 01/14/2024 3:36 PM Date of : 1950 Admit Type: Outpatient Note Status: Finalized Date of : 1950 Admit Type: Outpatient Age: 73 Room: Endo 2 Gender: Male Note Status: Finalized Procedure: Colonoscopy Indications: High risk colon cancer surveillance: Personal history of colon cancer Providers: Milvia Arnold MD (Doctor) Referring MD: Miguel Suarez MD (Referring MD) Medicines: See the Anesthesia note for documentation of the administered medications Complications: No immediate complications. Procedure: Pre-Anesthesia Assessment: - ASA Grade Assessment: II - A patient with mild systemic disease. - Prior to the procedure, a History and Physical was performed, and patient medication allergies have been reviewed. The patient's tolerance of previous anesthesia has been reviewed. - Respiratory Examination: clear to auscultation. - CV Examination: normal. - The risks and benefits of the procedure and the sedation options and risks were discussed with the patient. All questions were answered and informed consent was obtained. - Patient identification and proposed procedure were verified prior to the procedure by the physician, the nurse and the stereotype caster. The procedure was verified in the pre-procedure area in the procedure room. - The medication list for this patient has been reviewed prior to the procedure and has been determined that the patient may proceed with the planned study. Any medication changes made as a result of the findings of this procedure have been discussed with the patient and/or reimbursement representative at the time of discharge from the facility. After I obtained informed consent, the scope was passed under direct vision. All instruments were visually inspected immediately before and after removal from the patient to ensure they are fully intact. Throughout the procedure, the patient's blood pressure, pulse, and oxygen saturations were monitored continuously. The [id number] Colonoscope ([id number]) was introduced through the anus and advanced to the terminal ileum. The colonoscopy was performed without difficulty. The patient tolerated the procedure well. The quality of the bowel preparation was good. Findings & Specimens: The perianal and digital rectal examinations were normal. Multiple small and large-mouthed diverticula were found in the sigmoid colon. There was evidence of a prior end-to-side colo-colonic anastomosis at 20 cm proximal to the anus. This was characterized by healthy appearing mucosa. Two sessile polyps were found in the transverse colon and ascending colon. The polyps were 3 to 6 mm in size. These polyps were removed with a cold snare. Resection and retrieval were complete. Internal hemorrhoids seen on retroflexion. The exam was otherwise without abnormality. Impression: - Diverticulosis in the sigmoid colon. - End-to-side colo-colonic anastomosis, characterized by healthy appearing mucosa. - Two 3 to 6 mm polyps in the transverse colon and in the ascending colon, removed with a cold snare. Resected and retrieved. - The examination was otherwise normal. Recommendation: - Discharge patient to home. Repeat examin 5 years. Milvia Arnold MD 01/14/2024 3:51:26 PM This report has been signed electronically. documented in this encounter Nursing Notes * Katie Post RN - 01/14/2024 4:18 PM EDT Patient is alert, pain free, passing flatus and tolerating po fluids prior to discharge. Patient has been visited by Dr. Arnold. Patient has received and demonstrates understanding of discharge instructions. Patient ambulated to private auto accompanied by endo staff. * Lucas Li RN - 01/14/2024 3:52 PM EDT Specimen(s) and location(s) verified with physician post procedure 3:52 PM Lucas Li RN Mid abdominal pressure given per Dr. Arnold to assist with scope advancement. Pt tolerated well See anesthesia record for medication administered during procedure. Lucas Li RN Pre cleaning of scope at the bedside started by ct technologist. * Katie Post RN - 01/14/2024 3:52 PM EDT Received to PACU II. Awake and alert. Denies any pain or nausea. Coffee taken and retained. * Sheree Moreno RN - 01/14/2024 2:44 PM EDT The following pt discharge instructions reviewed with pt prior to prodedure: No driving today. No alcohol today. No signing of legal documents. Rest as much as possible today and can return to normal activities tomorrow. No operating any heavy equipment today. Diet as tolerated. Pt verbalized understanding. documented in this encounter Plan of Treatment Upcoming Encounters Date Type Department Care Team (Late st Contact Info) Description 02/22/2024 10:30 AM EDT Telemedicine Cardiology, [place] [address] [facility] [place] [id number] [facility] [address] [facility] [place] [address] 04/11/2024 10:00 AM EDT Office Visit Family Practice [facility] [address] [facility] [place] [address] Adelia Pressley CRNP [address] [facility] [place] [address] 05/04/2024 9:30 AM EDT Office Visit Cardiology, [facility] [address] [facility] [place] [address] Vivienne Sunshine CRNP [address] [place] [address] 07/21/2024 10:00 AM EST Nurse Only Ancillary [facility] [address] [facility] [place] [address] [place], Nurse Annual Wellness [facility] [address] [place] [address] 01/19/2025 12:00 PM EDT Office Visit [facility] [address] [place] [address] Miguel Suarez MD [address] [place] [address] Pending Results Name Type Priority Associated Diagnoses Date /Time SURGICAL PATHOLOGY Pathology Routine History of colon polyps History of colon cancer 01/14/2024 3:51 PM EDT Scheduled Orders Name Type Priority Associated Diagnoses Orde r Schedule SURGICAL PATHOLOGY Pathology Routine History of colon polyps History of colon cancer Release Upon Ordering for 1 Occurrences starting 01/14/2024, 1 completed Health Maintenance Due Date Last Done Comments Cologuard 1995 Fecal Occult Blood Test 1995 Sigmoidoscopy 1995 COVID-19 Vaccine ( season) 2023 07/21/2021, 07/21/2021, 10/16/2020, Additional history exists Albumin/Creatinine Ratio 01/22/2024 023, 10/20/2013, 04/13/2012, Additional history exists CKD HGB USE SMARTSET 58958 05/28/202405/28, 05/28/2023, 11/26/2022, Additional history exists GFR 06/11/2024 12/10/2023, 08/10, 05/28/2023, Additional history exists CKD PHOS USE SMARTSET [id number] 11/28/2024 11/29/2023 HbA1c 11/28/2024 11/29/2023, 11/07, 10/24/2021, Additional history exists Colonoscopy 01/13/2029 01/14/2024, 10/07, 10/20/2017, Additional history exists Colorectal Cancer Screening 01/13/2029 DTaP,Tdap,and Td Vaccines (5 - Td or Tdap) 04/14/2032 04/14/2022, 08/03/2013, 08/09/2010, Additional history exists Pneumococcal Vaccine: 65+ Years Completed 02/25/2017, 10/29/2015, 08/07/2014, Additional history exists Zoster Vaccines Completed 06/15/2019, 02/2019, 04/12/2019, Additional history exists Influenza Vaccine (FLU shot) Completed 05/28/2023, 06/29/2022, 06/09/2021, Additional history exists AAA Screening Completed 06/07/2023 RETIRED - COLONOSCOPY-EVERY 5 YRS AGES 18-100 Discontinued 01/14/2024, 10/20/2017, 10/20/2017, Additional history exists GARDASIL-HPV IMMUNIZATION SERIES Aged Out No longer eligible based on patient's age to complete this topic Hepatitis B Aged Out No longer eligi ble based on patient's age to complete this topic MENINGOCOCCAL (MENACTRA/MENVEO) Aged Out No longer eligible based on patient's age to complete this topic documented as of this encounter Medical Devices Implanted Type Area Air Pollution Analyst Device Identifier Shelf Expiration Date Model / Serial / Lot Stent Synergy Xd Mr [id number] - [id number] Implanted:Qty: 1 on 11/24/2022 by Johnny Schofield MD at [facility] [employer] [id number] 10/13/2023 [id number] / / [id number] Stent Synergy Xd Mr [id number] - [id number] Implanted:Qty: 1 on 11/24/2022 by Johnny Schofield MD at [facility] The [employer]umator [id number] 07/24/2023 [id number] 220 / / [id number] documented as of this encounter Procedures Procedure Name Priority Date/Time Associated Diagnosis Comments COLONOSCOPY 01/14/2024 3:36 PM EDT documented in this encounter Results * COLONOSCOPY (01/14/2024 3:36 PM EDT) 01/14/2024 3:36 PM EDT Narrative Procedure Note Miguel Suarez MD - 01/14/2024 3:36 PM EDT [facility] Patient Name: Curtis Jamil Procedure Date: 01/14/2024 3:36 PM Date of : 1950 Admit Type: Outpatient Note Status:Finalized Date of : 1950 Admit Type: Outpatient Age: 73 Room: Endo 2 Gender: Male Note Status: Finalized Procedure: Colonoscopy Indications: High risk colon cancer surveillance: Personalhistory of colon cancer Providers: Milvia Arnold MD (Doctor) Referring MD: Miguel Suarez MD (Referring MD) Medicines: See the Anesthesia note for documentation of theadministered medications Complications: No immediate complications. Procedure: Pre-Anesthesia Assessment: - ASA Grade Assessment: II - A patient with mildsystemic disease. - Prior to the procedure, a History and Physicalwas performed, and patient medication allergies have been reviewed. Thepatient's tolerance of previous anesthesia has been reviewed. - Respiratory Examination: clear to auscultation. - CV Examination: normal. - The risks and benefits of the procedure and thesedation options and risks were discussed with the patient. All questions wereanswered and informed consent was obtained. - Patient identification and proposed procedurewere verified prior to the procedure by the physician, the nurse and the stereotype caster.The procedure was verified in the pre-procedure area in the procedure room. - The medication list for this patient has beenreviewed prior to the procedure and has been determined that the patient may proceedwith the planned study. Any medication changes made as a result of the findingsof this procedure have been discussed with the patient and/or reimbursement representative atthe time of discharge from the facility. After I obtained informed consent, the scope waspassed under direct vision. All instruments were visually inspected immediatelybefore and after removal from the patient to ensure they are fully intact. Throughout the procedure, the patient's bloodpressure, pulse, and oxygen saturations were monitored continuously. The [id number] ([id number]) was introduced through the anus and advanced to the terminalileum. The colonoscopy was performed without difficulty. The patient tolerated theprocedure well. The quality of the bowel preparation was good. Findings & Specimens: The perianal and digital rectal examinations were normal. Multiple small and large-mouthed diverticula were found in thesigmoid colon. There was evidence of a prior end-to-side colo-colonic anastomosis at20 cm proximal to the anus. This was characterized by healthy appearing mucosa. Two sessile polyps were found in the transverse colon and ascendingcolon. The polyps were 3 to 6 mm in size. These polyps were removed with a cold snare. Resection andretrieval were complete. Internal hemorrhoids seen on retroflexion. The exam was otherwise without abnormality. Impression: - Diverticulosis in the sigmoid colon. - End-to-side colo-colonic anastomosis,characterized by healthy appearing mucosa. - Two 3 to 6 mm polyps in the transverse colon andin the ascending colon, removed with a cold snare. Resected and retrieved. - The examination was otherwise normal. Recommendation: - Discharge patient to home. Repeat examin 5years. Milvia Arnold MD 01/14/2024 3:51:26 PM This report has been signed electronically. Miguel Suarez MD [facility] documented in this encounter Visit Diagnoses Diagnosis History of colon polyps Personal history of colonic polyps History of colon cancer Personal history of malignant neoplasm of large intestine documented in this encounter Administered Medications Inactive Administered Medications - up to 3 most recent administrations Medication Order MAR Action Action Date Dose Rate Site isolyte-S pH 7.4 infusion Intravenous, at 100 mL/hr, Plasma-LYTE 148, isolyte-S, and isolyte-S pH 7.4 are considered equivalent - including for MAR barcode scanning., CONTINUOUS, Starting on Wed01/14/24 at 1515, Until Wed01/14/24 at 2022, Pre-Op Continue from Pre-Op 01/14/2024 3:33 PM EDT 100 mL/hr New Bag 01/14/2024 3:15 PM EDT 100 mL/hr documented in this encounter Active and Recently Administered Medications Times are shown in EDT. Continuous Medication Order 01/12/2024 01/13/2024 01/14/2024 isolyte-S pH 7.4 infusion Intravenous, at 100 mL/hr, Plasma-LYTE 148, isolyte-S, and isolyte-S pH 7.4 are considered equivalent - including for MAR barcode scanning., CONTINUOUS, Starting on Wed01/14/24 at 1515, Until Wed01/14/24 at 2022, Pre-Op 1515 (New Bag - Prov ider: Sheree Moreno RN)1533 (Continue from Pre-Op - Provider: Bam Santamaria CRNA)1549 (Anes Intra-Op Fluid - Provider: Bam Santamaria CRNA) documented in this encounter Advance Directives * Full Code (Latest Code Status on File) Date Activated Date Inactivated Comments 11/20/2022 8:50 PM 11/26/2022 4:57 PM This order r eflects the patients wishes and were consensually agreed upon. Question Answer Comments Discussion of Advance Directives occurred with: Patient * Full Code Date Activated Date Inactivated Comments 09/11/2016 3:06 PM 09/12/2016 1:58 PM This order ref lects the patients wishes and were consensually agreed upon. Question Answer Comments Discussion of Advance Directives occurred with: Not Discussed Does the patient have a Living Will? No Does the patient have Health Care Power of Attor javier? No Care Teams Bromination Equipment Operator Relationship Specialty Start Date End Date Miguel Suarez MD [address] [facility] [place] [id number] PCP - General Family Medicine 07/25/14 documented as of this encounter
--- OUTSIDE RECORDS SUMMARY | 2024-01-24 09:01 | External Medical Summary | Summary of Care ---
Author Name Unknown Organization [facility] Address [address] [address] Phone [phone] Care Team Providers Care Informatica Name Role Phone Miguel Suarez MD Primary Care Provider + Reason for Visit * Reason Comments Physical-Exam Yearly physical Encounter Details Date Type Department Care Team (Late st Contact Info) Description 01/12/2024 12:00 PM EDT Office Visit Family Practice [facility] [address] [phone] Miguel Suarez MD [address] [phone] Well adult exam*; Chronic kidney disease, stage 3a ([facility]); Risk and functional assessment; Stable angina ([facility]); HFrEF (heart failure with reduced ejection fraction) ([facility]); HTN, goal below 140/90; Episode of recurrent major depressive disorder, unspecified depression episode severity ([facility]); ARMOND (generalized anxiety disorder); Memory changes Allergies Active Allergy Reactions Criticality Noted Date Comments Atorvastatin 03/04/2018 Myalgia Fluticasone Furoate-Vilanterol 12/24/2021 Tightness in chest Rosuvastatin Calcium 03/04/2018 myalgia Iodinated Contrast Media Anaphylaxis,Itching High 04/26/2008 Contrast dye Other Allergy (See Comments) 04/24/2022 Product Containing 1-bkqzdyd-6-methylgl utaryl-coenzyme A Reductase Inhibitor (product) Simvastatin 03/04/2018 myalgia documented as of this encounter (statuses as of 01/18/2024) Medications Medication Sig Dispensed Refills Start Date End Date Status Cholecalciferol 5000 UNITS TABS Take 5,000 Units by mouth in the morning. Active pyridOXINE (VITAMIN B-6) 100 MG Tablet Take 1 Tablet by mouth in the morning. Active oxygen GAS 2 LPM bled through NC during hours of sleep 1 Each 08/30/2019 Active Additional Information Patient not taking.Reported on 01/10/2024 NF Formulas Testosterone Oral Capsule Take 1 Capsule by mouth every morning. Active Allopurinol 300 MG Oral Tablet (Zyloprim)Indicat ions:Chronic gout without tophus, unspecified cause, unspecified site TAKE ONE-HALF TABLET BY MOUTH EVERY MORNING AND 1 TABLET IN THE EVENING 135 Tablet 3 09/15/2022 Active Additional Information Patient taking differently: Take 2 tabs every evening, Reported on 01/10/2024 Nitroglycerin 0.4 MG Sublingual Tablet Sublingual (Nitrostat)Indica tions:Atheroscler osis of [place] coronary artery of [place] heart with other form of angina pectoris (HCC),Exertional angina (HCC),Coronary artery disease involving coronary bypass graft of [place] heart with angina pectoris (HCC) PLACE 1 TAB UNDER THE TONGUE EVERY 5 MINUTES NEEDED FOR PAIN, CHEST. UP TO 3 DOSES IN 15 MINUTES 25 Tablet 1 09/30/2022 Active Additional Information Patient not taking.Reported on 01/14/2024 Aspirin 81 MG Oral Tablet Chewable Chew & swallow 1 Tablet by mouth in the morning. 34 Tablet 11 11/26/2022 Active Vitamin E 400 UNIT Oral Capsule (Aquasol E) Take 1 Capsule by mouth in the morning. Active Vitamin B-12 1000 MCG Oral Tablet (Cyanocobalamin) Take 1 Tablet by mouth in the morning. Active Fluticasone Propionate 50 MCG/ACT Nasal Suspension (Flonase) Administer 1 Darwin into nostril daily as needed. Active Famotidine 20 MG Oral Tablet (Pepcid)Indicatio ns:Chronic nausea TAKE 1 TABLET BY MOUTH EVERY DAY IN THE MORNING AND BEFORE BEDTIME 180 Tablet 3 06/01/2023 Active Clopidogrel Bisulfate 75 MG Oral Tablet (pLAVix)Indicatio ns:Atherosclerosi s of coronary artery of [place] heart with stable angina pectoris, unspecified vessel or lesion type (HCC),Cerebrovasc ular disease, arteriosclerotic, post-stroke TAKE 1 TABLET BY MOUTH EVERY DAY 90 Tablet 3 06/22/2023 Active Metoprolol Succinate ER 25 MG Oral Tablet Extended Release 24 Hour (toPROL XL) Take 1 Tablet by mouth in the morning. 90 Tablet 3 09/24/2023 Active Terazosin HCl 2 MG Oral Capsule TAKE 1 CAPSULE BY MOUTH EVERYDAY AT BEDTIME 90 Capsule 3 10/13/2023 Active Ranolazine ER 500 MG Oral Tablet Extended Release 12 Hour (Ranexa) TAKE 1 TABLET BY MOUTH IN THE MORNING AND BEFORE BEDTIME 180 Tablet 3 11/29/2023 Active Repatha SureClick 140 MG/ML Subcutaneous Solution Auto-injector (evolocumab) Inject 140 mg (1 pen) under the skin every 14 days. 6 mL 3 12/01/2023 Active Pantoprazole Sodium 40 MG Oral Tablet Delayed Release (Protonix) TAKE 1 TABLET BY MOUTH EVERY DAY IN THE MORNING AND AT BEDTIME 180 Tablet 12/02/2023 Active Nitroglycerin 0.6 MG/HR Transdermal Patch 24 Hour (Nitro-Dur) PLACE 1 PATCH TOPICALLY ON THE SKIN IN THE MORNING REMOVE AFTER 12 HOURS 90 Patch 3 12/29/2023 Active Furosemide 20 MG Oral Tablet (Lasix)Indication s:HTN, goal below 140/80,Chronic combined systolic and diastolic congestive heart failure (HCC) TAKE 1 TABLET BY MOUTH NEEDED (SWELLING, WEIGHT GAIN AND SHORTNESS OF BREATH). 90 Tablet 3 01/10/2024 Active Magnesium 500 MG Oral Capsule Take 1 Capsule by mouth in the morning. Active Co Q-10 100 MG Oral Capsule Take by mouth every morning. Take 2 tabs daily Active Vitamin C Plus 1000 MG Oral Tablet Take by mouth every evening. Active Sacubitril-Valsar loera 24-26 MG Oral Tablet (Entresto) Take 1 Tablet by mouth in the morning and 1 Tablet in the evening. 90 Tablet 3 01/12/2024 Active Sertraline HCl 100 MG Oral Tablet (Zoloft)Indicatio ns:Episode of recurrent major depressive disorder, unspecified depression episode severity (HCC),ARMOND (generalized anxiety disorder),Memory changes Take 2 Tablets by mouth daily with dinner. 01/12/2024 Active Sacubitril-Valsar loera 24-26 MG Oral Tablet (Entresto) Take 1 Tablet by mouth in the morning and 1 Tablet in the evening. PATIENT REQUESTING 90 DAY SUPPLY - THIS REPLACES PREVIOUS PRESCRIPTION ON FILE. 180 Tablet 30 12/22/2022 4 Discontinue d(Refill) Sertraline HCl 100 MG Oral Tablet (Zoloft)Indicatio ns:Episode of recurrent major depressive disorder, unspecified depression episode severity (HCC),ARMOND (generalized anxiety disorder),Memory changes Take 2 Tablets by mouth daily with dinner. 60 Tablet 3 12/10/2023 4 Discontinue d(Refill) documented as of this encounter (statuses as of 01/18/2024) Active Problems Problem Noted Date Diagnosed Date [...] 12/27/2020 Well adult exam 04/12/2019 Overview: Daughter-Sherly. 01/30 COlon +Tubular adenoma alphonso 5y 03/31 inferior [place]? Cath- no new lesions of CABG. 12/29 TTE [facility] similar. 11/28 new stent. TTE 45-49%. Mod wall motion abn. Mild AR. Mild dilated A root/ascend 10/28 6MWT ok. 10/27 UE EMG ok. 2017 colon 2mm polyp. Alphnoso 5y 2013 colon CA Chronic major depressive disorder, recurrent epi sode 04/12/2019 Atherosclerosis of [place] co ronary artery of [place] heart with stable angina pectoris 07/06/2018 Lung nodules 05/28/2018 Splenomegaly 04/09/2018 History of colon cancer 04/08/2018 Statin intolerance 01/29/2018 Stable angina 02/01/2017 Coronary artery disease invo lving coronary bypass graft of [place] heart with angina pectoris 09/14/2016 S/P angioplasty [...] as of this encounter (statuses as of 01/18/2024) Resolved Problems Problem Noted Date Diagnosed Date Resolved Date SBO (small bowel obstruction) 09/09/2023 09/09/2023 Overview: 04/23 admit. 11/21 [facility] improved w/NPO. Cont ETOH abuse Systolic congestive [...] Exertional angina 10/22/2016 01/01/2017 Coronary atherosclerosis of [place] coronary artery 12/26/2013 03/22/2019 Colon cancer 10/06/2013 08/18/2017 Cancer Staging:Clinical:Stage IIIA(T1, N1, M0) - Signed by Aiden Beauchamp MD on 11/24/2013 Pathologic: Unsigned Overview: 09/29/13 S/p partial sigmoid colectomy-Dr Steiner. Pathologic stage pT1N1a. (metastatic adenocarcinoma 08/25 nodes, invading submucosa) Pre-op testing 09/13/2013 02/25/2017 Routine general medical exam ination at a health care facility 01/25/2013 05/30/2018 Overview: 03/26 CT chest [facility] 6mm nodule. Alphonso 6mo ordered. 11/24 stopped crestor-myalgias. 08/25 CONSIDER EGD? 10/24 colon-2mm polyp PATH tubular adenoma. Alphonso 5y Preconetmplative to cut back ETOH. Stable low plat/wbc. 05/24 periph smear done ok. Colonoscopy 09/[address] [place] [address] Sebastian-for Synvisc Needs HARRIET fall 08/22 25mm colon polyp--Path---cancer--resected. 01/19 prostate discussed-declined 11/29/12 RUQ US @ [facility]--possible fatty infiltrate 11/11/12 DEXA @[facility]-- T -1.0 hip 07/20 Rib Xray-Right 7-9th rib frx 04/01/10CT [facility]-mild osteophytes 2007 colonoscopy-WNL. 08/14/03. Colonoscopy-The polyp at 45 cm showed moderate atypia. [facility] current use of ant icoagulant therapy 12/24/2003 11/21/2012 Overview: ICD-10 update of inactive term BENIGN NEOPLASM LG BOWEL 08/31/2003 Calculus of kidney 08/18/2001 8 Coronary atherosclerosis Overview: S/p CABG x5 06/24/1993 VICTORIA-D1-LAD TERRY-RCA SVG-OM1 SVG-OM2 PURE HYPERCHOLESTEROLEM 07/09 Overview: Per Lipid Taxonomy. TIA (transient ischemic attack) 02/25/2017 documented as of this encounter (statuses as of 01/18/2024) Immunizations Name Administration Dates Next Due COVID-19 [...] 10 1 - 05/29/1989 Smokeless Tobacco: Former Tobacco Cessation:Counseling Given: Not Answered Alcohol Use Standard Drinks/Week Comments Yes 0 [...] Sign Reading Time Taken Comments Blood Pressure 128/86 01/12/2024 12:12 PM EDT Pulse 65 01/12/2024 12:12 PM EDT Temperature 36.3 C (97.4 F) 01/12/2024 12:12 PM E DT Respiratory Rate 20 01/12/2024 12:12 PM EDT Oxygen Saturation 95% 01/12/2024 12:12 PM EDT Inhaled Oxygen Concentration - - Weight 94.8 kg (209 lb) 01/12/2024 12:12 PM EDT Height 172.1 cm (5' 7.75") 01/12/2024 12:12 PM E DT Body Mass Index 32.01 01/12/2024 12:12 PM EDT documented in this encounter Functional [...] this encounter Patient Instructions * Patient Instructions* Elvira Winkler LPN - 01/12/2024 12:08 PM EDT Patient Instructions - Fall Prevention (This education is for all patients over 65 regardless of symptoms) Remember to take your current medications as prescribed. In order to prevent falls, you are encouraged to: Exercise Utilize assistive/adaptive devices Avoid multifocal lenses when walking Avoid hazards in home Maintain a regular toileting schedule Any questions please contact our office. Preventing Falls in the Home (This education is for all patients over 65 regardless of symptoms) As you get older, falls are more likely. Thats because your reaction time slows. Your muscles and joints may also get stiffer, making them less flexible. Illness, medications, and vision changes can also affect your balance. A fall could leave you unable to live on your own. To make your home safer, follow these tips: Floors Put nonskid pads under area rugs Remove throw rugs Replace worn floor coverings Tack carpets firmly to each step on carpeted stairs. Put nonskid strips on the edges of uncarpeted stairs Keep floors and stairs free of clutter and cords Arrange furniture so there are clear pathways Clean up any spills right away Bathrooms Install grab bars in the tub or shower Apply nonskid strips or put a nonskid rubber mat in the tub or shower Sit on a bath chair to bathe Use bathmats with nonskid backing Lighting Keep a flashlight in each room Put a nightlight along the pathway between the bedroom and the bathroom Dann Patient Education Copyright 2008 - 2010 Dann except where otherwise noted Preventing Falls: Exercises to Improve Balance, Flexibility, Strength, and Staying Power (This education is for all patients over 65 regardless of symptoms) Certain types of exercises may help make you less likely to fall. Try the ones below. Or do other exercises that your healthcare provider suggests. Depending on your health, you may need to start slowly. Dont let that stop you. Even small amounts of exercise can help you. Be sure to talk to yourhealthcare provider before starting any exercise program. Improve Balance Many types of exercise can help improve balance. Leroy chi and yoga are good examples. Heres another one to try. You can do it anytime and almost anywhere. Stand next to a counter or solid support. Push yourself up onto your tiptoes. Hold for 5 seconds. If you start to lose your balance, hold on to the counter. Rest and repeat 5 times. Work up to holding for 20 to 30 seconds, if you can. Increase Flexibility Being more flexible makes it easier for you to move around safely. Try exercises like the seated hamstring stretch. Sit in a chair and put one foot on a stool. Straighten your leg and reach with both hands down either side of your leg. Reach as far down your leg as you can. Hold for about 20 seconds. Go back to the starting position. Then repeat 5 times. Switch legs. Build Strength Resistance exercises help build strength. You can do them without equipment. Or you can use weights, elastic bands, or special machines. One such exercise is called the biceps curl. You can hold a 1 pound weight or even a can of soup. Do this exercise at least 3 times a week. Strive for everyday. Sit up straight in a chair. Keep your elbow close to your body and your wrist straight. Bend your arm, moving your hand up to your shoulder. Then slowly lower your arm. Repeat 5 times. Switch to the other arm. Build Your Staying Power Aerobic exercises make your heart and lungs stronger so you can keep moving longer. Walking and swimming are two of the best types of exercises you can do. Using a stationary bike is great, too. Find an aerobic exercise that you enjoy. Start slowly and build up. Even 5 minutes is helpful. Aimfor a goal of 30 minutes, at least 3 times a week. You dont have to do 30 minutes in one session. Break it up and walk a little throughout the day. More Helpful Tips Start easy. Slowly work up to doing more. Talk with your healthcare provider about the best exercises for you. Call senior centers or health clubs about exercise programs. If needed, have a family member watch you walk every so often to check your stability. Exercise with a friend. Choose an activity you both enjoy. Try exercises that you can do anytime, anywhere. Here are two examples. Have someone with you when you first try these: Practice walking by placing one foot right in front of the other. Stand up and sit down 10 times. Repeat this throughout the day. Dann Patient Education Copyright 2009 - 2010 Dann except where otherwise noted. Preventing Falls: Moving Safely Using a Cane or Walker (This education is for all patients over 65 regardless of symptoms) Keep the cane away from your feet so you dont trip. A walking aid, such as a cane or walker, can help you stay more independent and avoid falls. Remember to keep your walking aid within easy reach when youre in a chair or in bed. And learn how to use it safely so you dont injure yourself. Using a Cane If you have a stronger side, hold the cane on that side. Get your balance. Move the cane and your weaker leg forward. Support your weight on both the cane and your weaker side. Step with your stronger leg. Start again from step 1. If youre using a folding walker, be sure you know how to lock it open. Check that its locked open before each use. Using a Walker Roll the walker (or lift it, if youre using one without wheels) forward about 12 inches. Step forward with your weaker leg first. Use the walker to help keep your balance. Bring your other foot forward to the center of the walker. Start again from step 1. Helpful Tips Check with your healthcare provider about the right walking aid to use. Ask about a walker with a seat attached. Check the tips of your cane or walker to make sure they have nonskid covers. Move slowly from room to room. Dont monge. Sit down to get dressed. Use a jeet pack or backpack to keep your hands free. Get help for jobs that mean climbing, even on a stepstool. [employer] Patient Education Copyright 2008 - 2010 [employer] except where otherwise noted. Treating Urinary Incontinence in Men (This education is for all patients over 65 regardless of symptoms) You can't always control the release of urine. You may leak urine. Or you may not be able to hold your urine until you can get to a bathroom. This is called urinary incontinence. The problem can be managed. Talk to your doctor about your treatment options. Taking Medications Prescription medications may help you. They may: Help the sphincter to work better. (This is the muscle that closes to keep urine from leaking out of the bladder.) Help stop the bladder from madi too often to push urine out. Help the bladder muscles contract with more force. Help relax the sphincter muscle and allow urine to flow more freely. Making Changes to Your Routine Certain changes in your daily routine may help. These include: Avoiding caffeine and alcohol. Using timed voiding. This is following a schedule for drinking fluids and urinating. Doing Kegel exercises daily. These exercises involve tightening the muscles in your sphincter and around your bladder to help strengthen them. Your doctor can explain how to do them. Using a Catheter A catheter is a narrow tube that is inserted through the urethra into the bladder. It drains urine.A condom catheter covers the penis. It channels urine into a collection bag. It is worn most of thetime. Intermittent catheterization means inserting a catheter to drain the bladder, then removing it. This is done on a regular schedule. Having Surgery If other options don't work, surgery may be recommended. If surgery is an option, your healthcare provider can discuss it with you and explain its risks and benefits. Healing After Prostate Surgery Surgery on the prostate gland can cause incontinence. Most often, the incontinence is only for a short time. It clears up when healing is complete. Very rarely, prostate surgery can result in permanent incontinence. documented in this encounter Progress Notes * Miguel Suarez MD - 01/18/2024 8:44 PM EDT SUBJECTIVE: Curtis Jamil is a 73 year old male here for Physical-Exam (Yearly physical) . Here for annual No fever, chills, chest pain, shortness of breath, headache, nausea, vomit, diarrhea, constipation or vision changes Started cardiac rehab--finding helpful with stamina. Wonders if Repatha is making him itchy occ.? ROS: Negative except above. Past Medical History: [...] obstruction) (HCC) 11/21 [facility] improved w/NPO SBO (small bowel obstruction) (HCC) 04/23 admit. 11/21 [facility] improved w/NPO. Cont ETOH abuse TIA (transient ischemic attack) 1979 [id number] on coumadin x30y Past Surgical History: Procedure Laterality Date CABG, ARTERY-VEIN, FIVE 1992 [facility]-Dr Cagle CARDIAC ANGIOPLASTY, PERCUTANEOUS, 1 ARTERY Bilateral 11/24/2022 PTCA, CARDIAC ANGIOPLASTY, PERCUTANEOUS, 1 ARTERY performed by Johnny Schofield MD at CARDIAC LABS [facility] CARDIAC CATH SCANNED RESULT 09/11/2016 cardiac stent-PRESTON the the SVG to 1st OM due to 95% stenosis. CARDIAC CATH-CARDIOLOGY ONLY 04/02/2023 Dr Paredes @[facility]. focus on CABG sites-no lesions. stent open. diagonal disease. CARPAL TUNNEL SURGERY 2004 right CARPAL TUNNEL SURGERY Left 01/03/2021 NEUROPLASTY MEDIAN NERVE AT CARPAL TUNNEL performed by Higinio Lindsay MD at OR [facility] COLONOSCOPY, DIAGNOSTIC (RECTUM) 09/05/2013 COLONOSCOPY FLEXIBLE PROXIMAL DIAGNOSTIC performed by Milvia Arnold MD at ENDOSCOPY [facility] COLONOSCOPY, DIAGNOSTIC (RECTUM) 10/01/2014 diverticulosis, repeat 3 yrs/COLONOSCOPY FLEXIBLE PROXIMAL DIAGNOSTIC performed by Milvia Arnold MD at ENDOSCOPY [facility] COLONOSCOPY, DIAGNOSTIC (RECTUM) 10/20/2017 adenomatous polyp, repeat 5 yrs/COLONOSCOPY FLEXIBLE PROXIMAL DIAGNOSTIC performed by Milvia Arnold MD at ENDOSCOPY [facility] COLONOSCOPY, DIAGNOSTIC (RECTUM) 01/14/2024 COLONOSCOPY FLEXIBLE PROXIMAL DIAGNOSTIC performed by Milvia Arnold MD at ENDOSCOPY [facility] CORONARY ANGIOGRAPHY W/LEFT HEART CATH 11/04/2016 CORONARY ANGIOGRAPHY W/LEFT HEART CATH performed by Liz Zhang MD at CARDIAC LABS [facility] EGD, FLEXIBLE, DIAGNOSTIC 04/28/2022 normal bx / ESOPHAGOGASTRODUODENOSCOPY (EGD), FLEXIBLE, TRANSORAL, DIAGNOSTIC performed by Syed Ferrara MD at ENDOSCOPY [facility] KNEE ARTHROSCOPY, DIAGNOSTIC Knee Arthroscopy, several MISCELLANEOUS ORDER ([facility] ONLY) sinus trubinate reduction MISCELLANEOUS ORDER ([facility] ONLY) left great toe surgery PARTIAL REMOVAL OF COLON 09/29/2013 Sigmoid colon resection with stapled end-to-end anastomosis, [facility], Dr. 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 2grandkid daughter -lives w/him, son-Jamey sharif 2 grandsons . has friend. 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 Projects around home. Social Determinants of Health Financial Resource Strain: Not on file Food Insecurity: No Food Insecurity (04/08/2023) Hunger Vital Sign Worried About Running Out of Food in the Last Year: Never true Ran Out of Food in the Last Year: Never true Transportation Needs: Not on file Physical Activity: Not on file Stress: Not on file Social Connections: Not on file Intimate Partner Violence: Not on file Housing Stability: Not on file Family History Problem Relation Name Age of Onset Cancer Father esophageal Heart disease Father Heart Disorder Mother CHF, 92 . Other (diverticulitis) Mother Other (denies fh skin disorder) Mother no family hx Prostate Glaucoma Sister local. No Known Problems Daughter No Known Problems Son Current Outpatient Medications Medication Sig Dispense Refill Sacubitril-Valsartan 24-26 MG Oral Tablet (Entresto) Take 1 Tablet by mouth in the morning and 1 Tablet in the evening. 90 Tablet 3 Sertraline HCl 100 MG Oral Tablet (Zoloft) Take 2 Tablets by mouth daily with dinner. Cholecalciferol 5000 UNITS TABS Take 5,000 Units by mouth in the morning. pyridOXINE (VITAMIN B-6) 100 MG Tablet Take 1 Tablet by mouth in the morning. oxygen GAS 2 LPM bled through NC during hours of sleep (Patient not taking: Reported on 01/10/2024) 1Each 0 NF Formulas Testosterone Oral Capsule Take 1 Capsule by mouth every morning. Allopurinol 300 MG Oral Tablet (Zyloprim) TAKE ONE-HALF TABLET BY MOUTH EVERY MORNING AND 1 TABLET IN THE EVENING (Patient taking differently: Take 2 tabs every evening) 135 Tablet 3 Nitroglycerin 0.4 MG Sublingual Tablet Sublingual (Nitrostat) PLACE 1 TAB UNDER THE TONGUE EVERY 5 MINUTES NEEDED FOR PAIN, CHEST. UP TO 3 DOSES IN 15 MINUTES (Patient not taking: Reported on 01/14/2024) 25 Tablet 1 Aspirin 81 MG Oral Tablet Chewable Chew & swallow 1 Tablet by mouth in the morning. 34 Tablet 11 Vitamin E 400 UNIT Oral Capsule (Aquasol E) Take 1 Capsule by mouth in the morning. Vitamin B-12 1000 MCG Oral Tablet (Cyanocobalamin) Take 1 Tablet by mouth in the morning. Fluticasone Propionate 50 MCG/ACT Nasal Suspension (Flonase) Administer 1 Darwin into nostril daily as needed. Famotidine 20 MG Oral Tablet (Pepcid) TAKE 1 TABLET BY MOUTH EVERY DAY IN THE MORNING AND BEFORE BEDTIME 180 Tablet 3 Clopidogrel Bisulfate 75 MG Oral Tablet (pLAVix) TAKE 1 TABLET BY MOUTH EVERY DAY 90 Tablet 3 Metoprolol Succinate ER 25 MG Oral Tablet Extended Release 24 Hour (toPROL XL) Take 1 Tablet by mouth in the morning. 90 Tablet 3 Terazosin HCl 2 MG Oral Capsule TAKE 1 CAPSULE BY MOUTH EVERYDAY AT BEDTIME 90 Capsule 3 Ranolazine ER 500 MG Oral Tablet Extended Release 12 Hour (Ranexa) TAKE 1 TABLET BY MOUTH IN THE MORNING AND BEFORE BEDTIME 180 Tablet 3 Repatha SureClick 140 MG/ML Subcutaneous Solution Auto-injector (evolocumab) Inject 140 mg (1 pen) under the skin every 14 days. 6 mL 3 Pantoprazole Sodium 40 MG Oral Tablet Delayed Release (Protonix) TAKE 1 TABLET BY MOUTH EVERY DAY IN THE MORNING AND AT BEDTIME 180 Tablet 0 Nitroglycerin 0.6 MG/HR Transdermal Patch 24 Hour (Nitro-Dur) PLACE 1 PATCH TOPICALLY ON THE SKIN IN THE MORNING REMOVE AFTER 12 HOURS 90 Patch 3 Furosemide 20 MG Oral Tablet (Lasix) TAKE 1 TABLET BY MOUTH NEEDED (SWELLING, WEIGHT GAIN AND SHORTNESS OF BREATH). 90 Tablet 3 Magnesium 500 MG Oral Capsule Take 1 Capsule by mouth in the morning. Co Q-10 100 MG Oral Capsule Take by mouth every morning. Take 2 tabs daily Vitamin C Plus 1000 MG Oral Tablet Take by mouth every evening. No current facility-administered medications for this visit. Physical: BP 128/86 | Pulse 65 | Temp 36.3 C (97.4 F) (Tympanic) | Resp 20 | Ht 1.721 m (5' 7.75") | Wt 94.8 kg (209 lb) | SpO2 95% | BMI 32.01 kg/m | BSA 2.13 m General-No apparent Distress Head, Eyes, Ears, Nose, Throat--Normocephalic, atraumatic Neck-Supple Lymph-no lymphadenopathy Lungs-Clear to Auscultation bilaterally Cardiovascular--Regular rate & Rhythm, +s1, s2, no murmur Abdomen-soft, nontender, nondistended + bowel sounds Extremities--no edema Neuro-alert & oriented x3 (Z00.00) Well adult exam (primary encounter diagnosis) Plan: counseled on diet/exercise Shots rec covid booster now, fall Labs reviewed/ordered (N18.31) Chronic kidney disease, stage 3a ([facility]) Plan: ALBUMIN / CREATININE RATIO, URINE Cont mgmt (Z13.9) Risk and functional assessment Plan: (I20.89) Stable angina ([facility]) Plan: cont med mgmt (I50.20) HFrEF (heart failure with reduced ejection fraction) ([facility]) Plan: consider SGLT2 (I10) HTN, goal below 140/90 Plan: cont mgmt (F33.9) Episode of recurrent major depressive disorder, unspecified depression episode severity ([facility]) Plan: Sertraline HCl 100 MG Oral Tablet (Zoloft) (F41.1) ARMOND (generalized anxiety disorder) Plan: Sertraline HCl 100 MG Oral Tablet (Zoloft) Cont mgmt (R41.3) Memory changes Plan: Sertraline HCl 100 MG Oral Tablet (Zoloft) Cont mgmt (This note was completed using the dictation program Fluency Direct. As such, there may be misspellings, word substitutions, or other variations that should not change the essence of the clinical content of this encounter note.If there is need for further clarification, please direct questions to the provider listed above.) Miguel Suarez MD * Elvira Winkler LPN - 01/12/2024 12:08 PM EDT Fall Risk Plan of Care Documentation: - Current medications reconciled Patient encouraged to: - Exercise - Provide education materials for Core strengthening - Utilize assistive/adaptive devices - Provide education materials - Avoid multifocal lenses when walking - Avoid hazards in home - Provide education materials - Maintain a regular toileting schedule Elvira Winkler LPN 01/12/2024 Urinary Incontinence Plan of Care Documentation: (This education is for all patients over 65 regardless of symptoms) Current medications reconciled. Patient encouraged to: Practice kegal exercises Provide education materials Use the restroom every 2 hours throughout the day Limit caffeine, alcohol, spicy foods and acidic foods Keep a bladder diary Limit fluid intake 3-4 hours before bed Lose weight Prevent constipation Take fluid pills at a time when you can get to the bathroom quickly Control sugar better if diabetic Limit fluid intake to 60 oz. per day Wear support stockings (TEDs)if you have edema Elvira Winkler LPN 01/12/2024 documented in this encounter Plan of Treatment Upcoming Encounters Date Type Department Care Team (Late st Contact Info) Description 02/22/2024 10:30 AM EDT Telemedicine Cardiology, [place] [address] [place] [address] Romario [facility] Card[facility] [address] [place] [address] 04/11/2024 10:00 AM EDT Office Visit [facility] [address] [facility] [place] [address] Adelia Pressley CRNP [address] [facility] [place] [address] 05/04/2024 9:30 AM EDT Office Visit Cardiology, [facility] [address] [place] [address] Vivienne Sunshine CRNP 132 [facility] [place] [address] 07/21/2024 10:00 AM EST Nurse Only Ancillary [facility] [address] [facility] [place] [address] Mikel, Nurse Annual Wellness [facility] [address] [place] [address] 01/19/2025 12:00 PM EDT Office Visit [facility] [address] [place] [address] Miguel Suarez MD [address] [place] [address] Scheduled Orders Name Type Priority Associated Diagnoses Orde r Schedule ALBUMIN / CREATININE RATIO, URINE Lab Routine Chronic kidney disease, stage 3a (HCC) Expected: 01/12/2024, Expires: 01/11/2025 Health Maintenance Due Date Last Done Comments Cologuard 1995 Fecal Occult Blood Test 1995 Sigmoidoscopy 1995 COVID-19 Vaccine ( season) 2023 07/21/2021, 07/21/2021, 10/16/2020, Additional history exists Albumin/Creatinine Ratio 01/22/2024 023, 10/20/2013, 04/13/2012, Additional history exists CKD HGB USE SMARTSET 51411 05/28/202405/28, 05/28/2023, 11/26/2022, Additional history exists GFR 06/11/2024 12/10/2023, 08/10, 05/28/2023, Additional history exists Depression Monitoring 07/20/2024 07/20/2023 CKD PHOS USE SMARTSET 75174 11/28/2024 11/29/2023 HbA1c 11/28/2024 11/29/2023, 0412/2022, 10/24/2021, Additional history exists Colonoscopy 01/13/2029 01/14/2024, 02/2024, 10/20/2017, Additional history exists Colorectal Cancer Screening [...] COLONOSCOPY-EVERY 5 YRS AGES 18-100 Discontinued 01/14/2024, 01/14/2024, 10/20/2017, Additional history exists GARDASIL-HPV IMMUNIZATION SERIES Aged Out No longer eligible based on patient's age to complete this topic Hepatitis B Aged Out No longer eligi ble based on patient's age to complete this topic MENINGOCOCCAL (MENACTRA/MENVEO) Aged Out No longer eligible based on patient's age to complete this topic documented as of this encounter Medical Devices Implanted Type Area Metal Tester Device Identifier Shelf Expiration Date Model / Serial / Lot Stent Synergy Xd Mr [id number] - [id number] Implanted:Qty: 1 on 11/24/2022 by Johnny Schofield MD at [facility] [employer] [id number] 10/13/2023 [id number] 250 / / [id number] Stent Synergy Xd Mr [id number] - [id number] Implanted:Qty: 1 on 11/24/2022 by Johnny Schofield MD at [facility] [employer] [id number] 07/24/2023 [id number] 220 / / [id number] documented as of this encounter Visit Diagnoses Diagnosis Well adult exam- Primary Routine general medical examination at a health care facility Chronic kidney disease, stage 3a (HCC) Risk and functional assessment Screening for unspecified condition Stable angina (HCC) Other and unspecified angina pectoris HFrEF (heart failure with reduced ejection fraction) ([facility]) HTN, goal below 140/90 Unspecified essential hypertension Episode of recurrent major depressive disorder, unspecified depression episode severity (HCC) ARMOND (generalized anxiety disorder) Generalized anxiety disorder Memory changes Memory loss documented in this encounter Advance Directives * [...] Power of Attor javier? No Care Teams [employer] Relationship Specialty Start Date End Date Miguel Suarez MD [address] [place] [address] PCP - General Family Medicine 07/25/14 documented as of this encounter
--- OUTSIDE RECORDS SUMMARY | 2024-01-24 09:02 | External Medical Summary | Summary of Care ---
Author Name Unknown Organization [facility] Address [address] [facility] [place] [address] Phone [phone] Care Team Providers Care Dehydrogenation Operator Head Name Role Phone Miguel Suarez MD Primary Care Provider + Reason for Visit * Reason Comments eRx-Medication Refill Encounter Details Date Type Department Care Team (Late st Contact Info) Description 01/08/2024 Refill Cardiology, [facility] [address] [place] [address] Maria Del Carmen Sam PA-C [address] [place] [phone] HTN, goal below 140/80*; Chronic combined systolic and diastolic congestive heart failure (HCC) Allergies Active Allergy Reactions Criticality Noted Date Comments Atorvastatin 03/04/2018 Myalgia Fluticasone Furoate-Vilanterol 12/24/2021 Tightness in chest Rosuvastatin Calcium 03/04/2018 myalgia Iodinated Contrast Media Anaphylaxis,Itching High 04/26/2008 Contrast dye Other Allergy (See Comments) 04/24/2022 Product Containing 9-cmbfghp-5-methylgl utaryl-coenzyme A Reductase Inhibitor (product) Simvastatin 03/04/2018 myalgia documented as of this encounter (statuses as of 01/10/2024) Medications Medication Sig Dispensed Refills Start Date [...] Sublingual Tablet Sublingual (Nitrostat)Indica tions:Atheroscler osis of [place] coronary artery of [place] heart with other form of angina pectoris (HCC),Exertional angina (HCC),Coronary artery disease involving coronary bypass graft of [place] heart with angina pectoris (HCC) PLACE 1 TAB UNDER THE TONGUE EVERY 5 MINUTES NEEDED FOR PAIN, CHEST. UP TO 3 DOSES IN 15 MINUTES 25 Tablet 1 3 Active Aspirin 81 MG Oral Tablet Chewable Chew & swallow 1 Tablet by mouth in the morning. 34 Tablet 11 3 Active Sacubitril-Valsar loera 24-26 MG Oral Tablet (Entresto) Take 1 Tablet by mouth in the morning and 1 Tablet in the evening. PATIENT REQUESTING 90 DAY SUPPLY - THIS REPLACES PREVIOUS PRESCRIPTION ON FILE. 180 Tablet 30 3 Active Vitamin E 400 UNIT Oral Capsule (Aquasol E) Take 1 Capsule by mouth in the morning. Active Vitamin B-12 1000 MCG Oral Tablet (Cyanocobalamin) Take 1 Tablet by mouth in the morning. Active Fluticasone Propionate 50 MCG/ACT Nasal Suspension (Flonase) Administer 1 Marblemount into nostril daily as needed. Active Famotidine 20 MG Oral Tablet (Pepcid)Indicatio ns:Chronic nausea TAKE 1 TABLET BY MOUTH EVERY DAY IN THE MORNING AND BEFORE BEDTIME 180 Tablet 3 3 Active Clopidogrel Bisulfate 75 MG Oral Tablet (pLAVix)Indicatio ns:Atherosclerosi s of coronary artery of [place] heart with stable angina pectoris, unspecified vessel or lesion type ([facility]),Cerebrovasc ular disease, arteriosclerotic, post-stroke TAKE 1 TABLET [...] 4 Active Furosemide 20 MG Oral Tablet (Lasix)Indication s:HTN, goal below 140/80,Chronic combined systolic and diastolic congestive heart failure (HCC) TAKE 1 TABLET BY MOUTH NEEDED (SWELLING, WEIGHT GAIN AND SHORTNESS OF BREATH). 90 Tablet 3 4 Active Furosemide 20 MG Oral Tablet (Lasix) Take 1 Tablet by mouth as needed (swelling, weight gain and shortness of breath). 90 Tablet 3 3 01/10/20 24 Discontinued documented as of this encounter (statuses as of 01/10/2024) Active Problems Problem Noted Date Diagnosed Date [...] disorder, recurrent epi sode 04/12/2019 Atherosclerosis of [place] co ronary artery of [place] heart with stable angina pectoris 07/06/2018 Lung nodules 05/28/2018 Splenomegaly 04/09/2018 History of colon cancer 04/08/2018 Statin intolerance 01/29/2018 Stable angina 02/01/2017 Coronary artery disease invo lving coronary bypass graft of [place] heart with angina pectoris 09/14/2016 S/P angioplasty [...] as of this encounter (statuses as of 01/10/2024) Resolved Problems Problem Noted Date Diagnosed Date Resolved Date SBO (small bowel obstruction) 09/09/2023 09/09/2023 Overview: 04/23 admit. 11/21 MN improved w/NPO. Cont ETOH abuse Systolic congestive heart failure 12/03/2022 12/10/2023 ROD (acute kidney injury) 11/26/[address] elevation myocardia l infarction (STEMI) 11/21/2022 11/26/2022 COPD, group A, by GOLD 2017 classification 11/20/2019 11/14/2021 Overview: Per COPD GOLD Classification Well adult exam 04/12/2019 12/10/2023 Overview: Daughter-Sherly. 03/31 inferior MO? Cath- no new lesions of CABG. 12/29 TTE MN similar. 11/28 new stent. TTE 45-49%. Mod wall motion abn. Mild AR. Mild dilated A root/ascend 10/28 6MWT ok. 10/27 UE EMG ok. 2017 colon 2mm polyp. Mak 5y 2013 colon CA COPD, mild 07/09/2018 11/23/2019 Overview: 2018 PFTs mild obstruction. Breo started--feels breathing is better. Thrombocytopenia 07/06/2018 10/25/2019 Exertional angina 10/22/2016 01/01/2017 Coronary atherosclerosis of [place] coronary artery 12/26/2013 03/22/2019 Colon cancer 10/06/2013 08/18/2017 Cancer Staging:Clinical:Stage IIIA(T1, N1, M0) - Signed by Aiden Beauchamp MD on 11/24/2013 Pathologic: Unsigned Overview: 09/29/13 S/p partial sigmoid colectomy-Dr Steiner. Pathologic stage pT1N1a. (metastatic adenocarcinoma 08/25 nodes, invading submucosa) Pre-op testing 09/13/2013 02/25/2017 Routine general medical exam ination at a health care facility 01/25/2013 05/30/2018 Overview: 03/26 CT chest [facility] 6mm nodule. Mak 6mo ordered. 11/24 stopped crestor-myalgias. 08/25 CONSIDER EGD? 3/18 colon-2mm polyp PATH tubular adenoma. Mak 5y Preconetmplative to cut back ETOH. Stable low plat/wbc. 05/24 periph smear done ok. Colonoscopy 09/[address] Sebastian-for Synvisc Needs HARRIET fall 08/22 25mm colon polyp--Path---cancer--resected. 01/19 prostate discussed-declined 11/29/12 RUQ US @ CT--possible fatty infiltrate 11/11/12 DEXA @CT-- T -1.0 hip 07/20 Rib Xray-Right 7-9th rib frx 04/01/10CT neck @CT-mild osteophytes 2007 colonoscopy-WNL. 08/14/03. Colonoscopy-The polyp at 45 cm showed moderate atypia. skilled nursing current use of ant icoagulant therapy 12/24/2003 11/21/2012 Overview: ICD-10 update of inactive term BENIGN NEOPLASM LG BOWEL 08/31/2003 Calculus of kidney 08/18/2001 8 Coronary atherosclerosis Overview: S/p CABG x5 06/24/1993 VICTORIA-D1-LAD TERRY-RCA SVG-OM1 SVG-OM2 PURE HYPERCHOLESTEROLEM 07/09 Overview: Per Lipid Taxonomy. TIA (transient ischemic attack) 02/25/2017 documented as of this encounter (statuses as of 01/10/2024) Immunizations Name Administration Dates Next Due COVID-19 [...] encounter Miscellaneous Notes * Telephone Encounter - Vivienne Avendano CRNP - 01/10/2024 3:54 PM EDT Signed Prescriptions: Disp Refills Furosemide 20 MG Oral Tablet (Lasix) 90 Tab*3 Sig: TAKE 1 TABLET BY MOUTH NEEDED (SWELLING, WEIGHT GAIN AND SHORTNESS OF BREATH). Authorizing Provider: VIVIENNE AVENDANO * Telephone Encounter - Kasie Santana CMA - 01/10/2024 10:39 AM EDTPending Prescriptions: Disp Refills Furosemide 20 MG Oral Tablet (Lasix) 90 Tab*3 Sig: TAKE 1 TABLET BY MOUTH NEEDED (SWELLING, WEIGHT GAIN AND SHORTNESS OF BREATH). * Telephone Encounter - Kasie Santana CMA - 01/10/2024 10:39 AM EDT Did you pend patient's preferred pharmacy and medication before forwarding?yes Pharmacy: [id number] [address] [facility] Pending Prescriptions: Disp Refills Furosemide 20 MG Oral Tablet (Lasix) [Pha*90 Tab*3 Sig: TAKE 1 TABLET BY MOUTH NEEDED (SWELLING, WEIGHT GAIN AND SHORTNESS OF BREATH). Last Visit: 11/10/2023 (in office), Visit date not found (telemedicine) Next Visit: 05/04/2024 If no future appointments scheduled, and last appointment is greater than a year ago, please schedule patient for a follow-up appointment Last date the medication was ordered: 01-18-2023 Is this request for a controlled substance?No Urine Drug Screen:No results found. However, due to the size of the patient record, not all encounters were searched. Please check Results Review for a complete set of results. Patient Phone Numbers Labs: Lab Results Component Value Date/Time CREAT 1.4 (H) 12/10/2023 10:18 AM CREAT 1.18 11/20/2022 12:00 AM CREAT 1.2 05/02/2020 10:43 AM POTASSIUM 4.9 12/10/2023 10:18 AM POTASSIUM 4.3 11/20/2022 12:00 AM POTASSIUM 4.3 05/02/2020 10:43 AM TSH 1.74 05/28/2023 11:48 AM TSH 1.54 10/24/2021 12:00 AM TSH 1.22 04/12/2019 03:58 PM LDLCALC 88 11/29/2023 09:39 AM LDLCALC 93 10/24/2021 12:00 AM LDLCALC 98 12/29/2019 10:07 AM LDLCALC 152. (H) 11/24/1996 08:00 AM LDLDIRECT NOT APPLICABLE 12/29/2019 10:07 AM LDLCHOL 125 (A) 04/13/2012 12:00 AM ALT 29 08/31/2022 08:53 AM ALT 24 12/29/2019 10:07 AM ALT 23 11/24/1996 08:00 AM HGBA1C 5.4 11/29/2023 09:39 AM HGBA1C 6.1 10/24/2021 12:00 AM HGBA1C 6.0 (H) 06/21/2019 11:22 AM documented in this encounter Plan of Treatment Upcoming Encounters Date Type Department Care Team (Latest Contact Info) Description 01/12/2024 12:00 PM EDT Office Visit Family [facility] [address] [place] [address] Miguel Suarez MD [address] [place] [address] 01/14/2024 2:30 PM EDT Hospital Encounter ENDO [facility], Endoscopy Room [facility] [address] [place] [phone] Milvia Arnold MD [address] [place] [address] 01/14/2024 2:30 PM EDT - 01/14/2024 3:00 PM EDT Surgery ENDO [facility], Endoscopy Room [facility] [address] [place] [phone] Milvia Arnold MD [address] [place] [address] COLONOSCOPY FLEXIBLE PROXIMAL DIAGNOSTIC 02/22/2024 10:30 AM EDT Telemedicine Cardiology, [place] [address] [place] [address] Romario [facility] Cardiology [address] [place] [address] 04/11/2024 10:00 AM EDT Office Visit Family Practice [facility] [address] [facility] [place] [address] Adelia Pressley CRNP [address] [place] [address] 05/04/2024 9:30 AM EDT Office Visit Cardiology, [facility] [address] [place] [address] Vivienne Avendano CRNP [address] [place] [address] 07/21/2024 10:00 AM EST Nurse Only Ancillary [facility] [address] [facility] [place] [address] [facility], Nurse Annual Wellness [facility] [address] [facility] [place] [address] Scheduled Procedures Name Priority Associated Diagnoses Date/Ti me COLONOSCOPY FLEXIBLE PROXIMAL DIAGNOSTIC History of colon polyps History of colon cancer 01/14/2024 2:30 PM EDT Health Maintenance Due Date Last Done Comments Cologuard 1995 Fecal Occult Blood Test 1995 Sigmoidoscopy 1995 Colonoscopy 10/20/2022 10/20/2017, 10/07, 10/01/2014, Additional history exists Colorectal Cancer Screening 10/20/2022 COVID-19 Vaccine ( season) 2023 07/21/2021, 07/21/2021, 10/16/2020, Additional history exists Albumin/Creatinine Ratio 01/22/2024 023, 10/20/2013, 04/13/2012, Additional history exists CKD HGB USE SMARTSET 15202 05/28/202405/28, 05/28/2023, 11/26/2022, Additional history exists GFR 06/11/2024 12/10/2023, 08/10, 05/28/2023, Additional history exists CKD PHOS USE SMARTSET 30206 11/28/2024 11/29/2023 HbA1c 11/28/2024 11/29/2023, 11/07, 10/24/2021, Additional history exists DTaP,Tdap,and Td Vaccines (5 - Td or Tdap) 04/14/2032 04/14/2022, 08/03/2013, 08/09/2010, Additional history exists Pneumococcal Vaccine: 65+ Years Completed 02/25/2017, 10/29/2015, 08/07/2014, Additional history exists RETIRED - COLONOSCOPY-EVERY 5 YRS AGES 18-100 Discontinued 10/20/2017, 10/20/2017, 10/01/2014, Additional history exists Zoster Vaccines Completed 06/15/2019, [...] this encounter Medical Devices Implanted Type Area Car Icer Device Identifier Shelf Expiration Date Model / Serial / Lot Stent Synergy Xd Mr [id number] - [id number] Implanted:Qty: 1 on 11/24/2022 by Johnny Schofield MD at [facility] [facility] [id number] 10/13/2023 [id number] 250 / / [id number] Stent Synergy Xd Mr [id number] - [id number] Implanted:Qty: 1 on 11/24/2022 by Johnny Schofield MD at [facility] [employer] [id number] 07/24/2023 [id number] 220 / / [id number] documented as of this encounter Visit Diagnoses Diagnosis HTN, goal below 140/80- Primary Unspecified essential hypertension Chronic combined systolic and diastolic congestive heart failure (HCC) Chronic combined systolic and diastolic heart failure History of colon polyps Personal history of colonic polyps History of colon cancer Personal history of malignant neoplasm of large intestine documented in this encounter Advance Directives * [...] Power of Attor javier? No Care Teams Dehydrogenation Operator Head Relationship Specialty Start Date End Date Miguel Suarez MD [address] [place] [id number] PCP - General Family Medicine 07/25/14 documented as of this encounter
--- OUTSIDE RECORDS SUMMARY | 2024-01-24 09:02 | External Medical Summary | Summary of Care ---
Author Name Unknown Organization [facility] Address [address] [address] Phone [phone] Care Team Providers Care Air Duct Mechanic Name Role Phone Miguel Suarez MD Primary Care Provider + Reason for Visit * Reason Onset Date Comments Health Maintenance 10/07/2023 Encounter Details Date Type Department Care Team (Late st Contact Info) Description 10/07/2023 Telephone Family Practice [facility] [address] [place] [address] Miguel Suarez MD [address] [place] [address] Health Maintenance Allergies Active Allergy Reactions Criticality Noted Date Comments Atorvastatin 03/04/2018 Myalgia Fluticasone Furoate-Vilanterol 12/24/2021 Tightness in chest Rosuvastatin Calcium 03/04/2018 myalgia Iodinated Contrast Media Anaphylaxis,Itching High 04/26/2008 Contrast dye Other Allergy (See Comments) 04/24/2022 Product Containing 8-jialgbi-4-methylgl utaryl-coenzyme A Reductase Inhibitor (product) Simvastatin 03/04/2018 myalgia documented as of this encounter (statuses as of 01/06/2024) Medications Medication Sig Dispensed Refills Start Date End Date Status Cholecalciferol 5000 UNITS TABS Take 5,000 Units by mouth in the morning. Active pyridOXINE (VITAMIN B-6) 100 MG Tablet Take 1 Tablet by mouth in the morning. Active oxygen GAS 2 LPM bled through NC during hours of sleep 1 Each 08/30/2019 Active NF Formulas Testosterone Oral Capsule Take 1 Capsule by mouth every morning. Active Allopurinol 300 MG Oral Tablet (Zyloprim)Indicatio ns:Chronic gout without tophus, unspecified cause, unspecified site TAKE ONE-HALF TABLET BY MOUTH EVERY MORNING AND 1 TABLET IN THE EVENING 135 Tablet 3 09/15/2022 Active Nitroglycerin 0.4 MG Sublingual Tablet Sublingual (Nitrostat)Indicati ons:Atherosclerosis of [place] coronary artery of [place] heart with other form of angina pectoris (HCC),Exertional angina (HCC),Coronary artery disease involving coronary bypass graft of [place] heart with angina pectoris (HCC) PLACE 1 TAB UNDER THE TONGUE EVERY 5 MINUTES NEEDED FOR PAIN, CHEST. UP TO 3 DOSES IN 15 MINUTES 25 Tablet 1 09/30/2022 Active Aspirin 81 MG Oral Tablet Chewable Chew & swallow 1 Tablet by mouth in the morning. 34 Tablet 11 11/26/2022 Active Sacubitril-Valsarta n 24-26 MG Oral Tablet [...] 50 MCG/ACT Nasal Suspension (Flonase) Administer 1 Velva into nostril daily as needed. Active Famotidine 20 MG Oral Tablet (Pepcid)Indications :Chronic nausea TAKE 1 TABLET BY MOUTH EVERY DAY IN THE MORNING AND BEFORE BEDTIME 180 Tablet 3 06/01/2023 Active Clopidogrel Bisulfate 75 MG Oral Tablet (pLAVix)Indications :Atherosclerosis of coronary artery of [place] heart with stable angina pectoris, unspecified vessel or lesion type (HCC),Cerebrovascul ar disease, arteriosclerotic, post-stroke TAKE 1 TABLET BY MOUTH EVERY DAY 90 Tablet 3 06/22/2023 Active Metoprolol Succinate ER 25 MG Oral Tablet Extended Release 24 Hour (toPROL XL) Take 1 Tablet by mouth in the morning. 90 Tablet 3 09/24/2023 Active documented as of this encounter (statuses as of 01/06/2024) Active Problems Problem Noted Date Diagnosed Date [...] disorder, recurrent epi sode 04/12/2019 Atherosclerosis of [place] co ronary artery of [place] heart with stable angina pectoris 07/06/2018 Lung nodules 05/28/2018 Splenomegaly 04/09/2018 History of colon cancer 04/08/2018 Statin intolerance 01/29/2018 Stable angina 02/01/2017 Coronary artery disease invo lving coronary bypass graft of [place] heart with angina pectoris 09/14/2016 S/P angioplasty [...] as of this encounter (statuses as of 01/06/2024) Resolved Problems Problem Noted Date Diagnosed Date Resolved Date SBO (small bowel obstruction) 09/09/2023 09/09/2023 Overview: 04/23 admit. 11/21 [facility] improved w/NPO. Cont ETOH abuse Systolic congestive heart failure 12/03/2022 12/10/2023 ROD (acute kidney injury) 11/26/[address] elevation myocardia l infarction (STEMI) 11/21/2022 11/26/2022 COPD, group A, by GOLD 2017 classification 11/20/2019 11/14/2021 Overview: Per COPD GOLD Classification Well adult exam 04/12/2019 12/10/2023 Overview: Daughter-Sherly. 03/31 inferior [place]? Cath- no [...] Exertional angina 10/22/2016 01/01/2017 Coronary atherosclerosis of [place] coronary artery 12/26/2013 03/22/2019 Colon cancer 10/06/2013 08/18/2017 Cancer Staging:Clinical:Stage IIIA(T1, N1, M0) - Signed by Aiden Beauchamp MD on 11/24/2013 Pathologic: Unsigned Overview: 09/29/13 S/p partial sigmoid colectomy-Dr Steiner. Pathologic stage pT1N1a. (metastatic adenocarcinoma 08/25 nodes, invading submucosa) Pre-op testing 09/13/2013 02/25/2017 Routine general medical exam ination at a health care facility 01/25/2013 05/30/2018 Overview: 03/26 CT chest [facility] 6mm nodule. Mak 6mo ordered. 11/24 [...] Rib Xray-Right 7-9th rib frx 04/01/10CT neck @[place]-mild osteophytes 2007 colonoscopy-WNL. 08/14/03. Colonoscopy-The polyp at 45 cm showed moderate atypia. 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 TIA (transient ischemic attack) 02/25/2017 documented as of this encounter (statuses as of 01/06/2024) Immunizations Name Administration Dates Next Due COVID-19 [...] Tobacco: Former Alcohol Use Standard Drinks/Week Comments Not Currently 16 (1 standard drink = 0.6 oz pure alcohol) stopped all EtOH intake on 08/04/23 (previous note: whiskey:up to 3-4 drinks, 3-4 days/week) PHQ-2 Answer Date Recorded PHQ Adult Total [...] Miscellaneous Notes * Telephone Encounter - Miguel Suarez MD - 10/07/2023 9:43 PM EST Labs signed * Telephone Encounter - Mary Casarez LPN - 10/07/2023 3:40 PM EST Care Gaps Comprehensive Care Outreach Last Office/Telemedicine Visit: 09/09/2023 (in office), Visit date not found (telemedicine) Next Office Visit: 12/10/2023 Hemoglobin AIC Results: Lab Results Component Value Date/Time HEMOGLOBIN A1C - [facility] 5.9 (H) 11/21/2022 04:37 AM HEMOGLOBIN A1C - [facility] 5.7 (H) 05/20/2021 09:47 AM HEMOGLOBIN A1C - [facility] 6.0 (H) 10/31/2020 09:23 AM HEMOGLOBIN A1C - [facility] 6.0 (H) 06/21/2019 11:22 AM HEMOGLOBIN A1C - [facility] 5.8 (H) 07/06/2018 10:37 AM HEMOGLOBIN A1C - [facility] 5.1 11/04/2016 10:15 AM BP Readings from Last 1 Encounters: 09/24/23 118/80 Reviewed Health Maintenance below: Health Maintenance Topic Date Due CKD PHOS USE SMARTSET 84503 Never done COLONOSCOPY-EVERY 5 YRS AGES 18-100 10/20/2022 COVID-19 Vaccine ( season) 2023 HbA1c 11/22/2023 Labs add lipid Colon already scheduled Care Gap Outreach Action Taken: Spoke to patient Labs ordered that are due for December appt. I pended his lipid panel. Last done 12/29. Please review and sign if appropriate. documented in this encounter Plan of Treatment Upcoming Encounters Date Type Department Care Team (Latest Contact Info) Description 01/12/2024 12:00 PM EDT Office Visit Family Practice [facility] [address] [address] Miguel Suarez MD [address] [place] [address] 01/14/2024 2:30 PM EDT Hospital Encounter ENDO [facility], Endoscopy Room [facility] [address] [place], [place] [phone] Milvia Arnold MD [address] [place] [address] 01/14/2024 2:30 PM EDT - 01/14/2024 3:00 PM EDT Surgery ENDO [facility], Endoscopy Room [facility] [address] [place] [phone] Milvia Arnold MD [address] [place] [address] COLONOSCOPY FLEXIBLE PROXIMAL DIAGNOSTIC 02/22/2024 10:30 AM EDT Telemedicine Cardiology, [place] [address] [facility] [place] [address] [facility] [address] [place] [address] 04/11/2024 10:00 AM EDT Office Visit Family Practice [facility] [address] [place] [address] Adelia Pressley CRNP [address] [place] [address] 05/04/2024 9:30 AM EDT Office Visit Cardiology, [facility] [address] [place] [address] Vivienne Sunshine CRNP [address] [place] [address] 07/21/2024 10:00 AM EST Nurse Only Ancillary [facility] [address] [place] [address] [place], Nurse Annual Wellness [facility] [address] [place] [address] Scheduled Procedures Name Priority Associated Diagnoses Date/Ti [...] Additional history exists CKD HGB USE SMARTSET 72857 05/28/202405/28, 05/28/2023, 11/26/2022, Additional history exists GFR 06/11/2024 12/10/2023, 08/10, 05/28/2023, Additional history exists CKD PHOS USE SMARTSET 69006 11/28/2024 11/29/2023 HbA1c 11/28/2024 11/29/2023, 11/07, 10/24/2021, [...] this encounter Medical Devices Implanted Type Area Director State Pharmacy Device Identifier Shelf Expiration Date Model / Serial / Lot Stent Synergy Xd Mr [id number] - [id number] Implanted:Qty: 1 on 11/24/2022 by Johnny Schofield MD at [facility] [email or web address] [id number] 10/13/2023 [id number] 250 / / [id number] Stent Synergy Xd Mr [id number] - [id number] Implanted:Qty: 1 on 11/24/2022 by Johnny Schofield MD at [facility] [email or web address] [id number] 07/24/2023 [id number] 220 / / [id number] documented as of this encounter Results * LIPID PANEL WITH DIRECT LDL IF TG IS HIGH (11/29/2023 9:39 AM EDT) Triglycerides 168 <=174 mg/dL 11/29/2023 2:51 PM EDT LABORATORY [facility] Comment: Triglyceride Reference Ranges (mg/dL): <150 Acceptable 150-174 Borderline high 175-499 High >=500 Very high Cholesterol 176 <200 mg/dL 11/29/2023 2:51 PM EDT LABORATORY [facility] Comment: Total Cholesterol Reference Ranges (mg/dL): <200 Desirable 200-239 Borderline high >=240 High HDL Cholesterol 54 >39 mg/dL 2:51 PM EDT LABORATORY [facility] Comment: HDL Cholesterol Reference Ranges (mg/dL): >=60 High (Desirable) <50 Low (Undesirable) For Females <40 Low (Undesirable) For Males Non-HDL Cholesterol 122 <=159 mg/dL 11/29/2023 2:51 PM EDT LABORATORY [facility] Comment: Non-HDL Cholesterol Reference Range (mg/dL): <100 Target level for high risk ASCVD patient <130 Optimal for general population 130-159 Near optimal for general population 160-189 Borderline High 190-219 High >=220 Very High LDL Cholesterol 88 <=129 mg/dL 11/29/2023 2:51 PM EDT LABORATORY [facility] Comment: LDL Cholesterol Reference Ranges (mg/dL): <70 Target level for high risk ASCVD patient <100 Optimal for general population 100-129 Near optimal for general population 130-159 Borderline high 160-189 High >=190 Very high Blood Venous blood specimen / Unknown Venipuncture / Unknown 11/29/2023 9:39 AM EDT 11/29/2023 9:39 AM EDT Miguel Suarez MD LAB BLOOD ORDERA BLES Performing Organization Address [facility] de Phone Number LABORATORY [place] [address] [place] [address] * HEMOGLOBIN A1C (11/29/2023 9:39 AM EDT) Hemoglobin A1C 5.4 4.0 - 5.6 % 11/29/2023 2:56 PM EDT LABORATORY [facility] Comment:The use of HbA1c to monitor glycemic status is based on normal hemoglobin and HbA composition. This test should not be used in patients with abnormal hemoglobin that affects the half life of the red blood cell or the in vivo glycation rates. Estimated Average Glucose 108 <126 mg/dL 11/29/2023 2:56 PM EDT LABORATORY [facility] Blood Venous blood specimen / Unknown Venipuncture / Unknown 11/29/2023 9:39 AM EDT 11/29/2023 9:39 AM EDT Miguel Suarez MD LAB BLOOD ORDERA BLES Performing Organization Address [facility] Co de Phone Number LABORATORY [facility] [address] [place] [address] * PHOSPHORUS (11/29/2023 9:39 AM EDT) Phosphorus 3.8 2.5 - 4.8 mg/dL 11/29/2023 2:51 PM EDT LABORATORY [facility] Blood Venous blood specimen / Unknown Venipuncture / Unknown 11/29/2023 9:39 AM EDT 11/29/2023 9:39 AM EDT Miguel Suarez MD LAB BLOOD ORDERA BLES LABORATORY [facility] [address] [facility] [place] [address] documented in this encounter Visit Diagnoses Diagnosis Prediabetes- Primary Other abnormal glucose Diabetes mellitus screening Screening for diabetes mellitus Chronic kidney disease, unspecified CKD stage Dyslipidemia, goal LDL below 70 Other and unspecified hyperlipidemia History of colon [...] Power of Attor javier? No Care Teams Air Duct Mechanic Relationship Specialty Start Date End Date Miguel Suarez MD [address] [facility] [place] [address] PCP - General Family Medicine 07/25/14 documented as of this encounter
--- OUTSIDE RECORDS SUMMARY | 2024-01-24 09:02 | External Medical Summary | Summary of Care ---
Author Name Unknown Organization [facility] Address [address] [facility] [place] [address] Phone [phone] Care Team Providers Care Mva Operator Name Role Phone Miguel Suarez MD Primary Care Provider + Reason for Visit * Reason Onset Date Comments Precert Approved 09/24/2023 Repatha 140mg/m L sureclick pen (reauth) Encounter Details Date Type Department Care Team (Late st Contact Info) Description 09/24/2023 Telephone Cardiology, [facility] [address] [place] [address] [place], [address] [place] [phone] Precert Approved (Repatha 140mg/mL surecli... Allergies Active Allergy Reactions Criticality Noted Date Comments Atorvastatin 03/04/2018 Myalgia Fluticasone Furoate-Vilanterol 12/24/2021 Tightness in chest Rosuvastatin Calcium 03/04/2018 myalgia Iodinated Contrast Media Anaphylaxis,Itching High 04/26/2008 Contrast dye Other Allergy (See Comments) 04/24/2022 Product Containing 4-udirmaa-9-methylgl utaryl-coenzyme A Reductase Inhibitor (product) Simvastatin 03/04/2018 myalgia documented as of this encounter (statuses as of 12/24/2023) Medications Medication Sig Dispensed Refills Start Date [...] Sublingual Tablet Sublingual (Nitrostat)Indic ations:Atheroscl erosis of [place] coronary artery of [place] heart with other form of angina pectoris (HCC),Exertional angina (HCC),Coronary artery disease involving coronary bypass graft of [place] heart with angina pectoris (HCC) PLACE 1 [...] the morning. 90 Patch 3 3 Active Sacubitril-Valsa rtan 24-26 MG [...] 50 MCG/ACT Nasal Suspension (Flonase) Administer 1 [place] into nostril daily as needed. 0 Active Famotidine 20 MG Oral Tablet (Pepcid)Indicati ons:Chronic nausea TAKE 1 TABLET BY MOUTH EVERY DAY IN THE MORNING AND BEFORE BEDTIME 180 Tablet 3 3 Active Clopidogrel Bisulfate 75 MG Oral Tablet (pLAVix)Indicati ons:Atherosclero sis of coronary artery of [place] heart with stable angina pectoris, unspecified vessel or lesion type (HCC),Cerebrovas cular disease, arteriosclerotic , post-stroke TAKE 1 TABLET BY MOUTH EVERY DAY 90 Tablet 3 3 Active Metoprolol Succinate ER 25 MG Oral Tablet Extended Release 24 Hour (toPROL XL) Take 1 Tablet by mouth in the morning. 90 Tablet 3 4 Active Sertraline HCl 100 MG Oral Tablet (Zoloft) TAKE 1 & 1/2 TABLETS BY MOUTH DAILY 135 Tablet 3 3 10/13/19 24 Discontinued Terazosin HCl 2 MG Oral Capsule TAKE 1 CAPSULE BY MOUTH EVERYDAY AT BEDTIME 90 Capsule 3 3 10/13/19 24 Discontinued Ranolazine ER 500 MG Oral Tablet Extended Release 12 Hour (Ranexa) Take 1 Tablet by mouth in the morning and 1 Tablet before bedtime. 180 Tablet 3 3 11/29/19 24 Discontinued Pantoprazole Sodium 40 MG Oral Tablet Delayed Release (Protonix) TAKE 1 TABLET BY MOUTH EVERY DAY IN THE MORNING AND AT BEDTIME 180 Tablet 0 4 12/02/19 24 Discontinued Repatha SureClick 140 MG/ML Subcutaneous Solution Auto-injector (evolocumab) Inject 140 mg (1 pen) under the skin every 14 days. Remove from refrigerator 30 minutes prior to injection. 2 mL 11 4 12/01/19 24 Discontinued(Re fill) documented as of this encounter (statuses as of 12/24/2023) Active Problems Problem Noted Date Diagnosed Date [...] disorder, recurrent epi sode 04/12/2019 Atherosclerosis of [place] co ronary artery of [place] heart with stable angina pectoris 07/06/2018 Lung nodules 05/28/2018 Splenomegaly 04/09/2018 History of colon cancer 04/08/2018 Statin intolerance 01/29/2018 Stable angina 02/01/2017 Coronary artery disease invo lving coronary bypass graft of [place] heart with angina pectoris 09/14/2016 S/P angioplasty [...] as of this encounter (statuses as of 12/24/2023) Resolved Problems Problem Noted Date Diagnosed Date [...] exam 04/12/2019 12/10/2023 Overview: Daughter-Sherly. 03/31 inferior [place]? Cath- no [...] Exertional angina 10/22/2016 01/01/2017 Coronary atherosclerosis of [place] coronary artery 12/26/2013 03/22/2019 Colon cancer 10/06/2013 08/18/2017 Cancer Staging:Clinical:Stage IIIA(T1, N1, M0) - Signed by Aiden Beauchamp MD on 11/24/2013 Pathologic: Unsigned Overview: 09/29/13 S/p partial sigmoid colectomy-Dr Steiner. Pathologic stage pT1N1a. (metastatic adenocarcinoma 08/25 nodes, invading submucosa) Pre-op testing 09/13/2013 02/25/2017 Routine general medical exam ination at a health care facility 01/25/2013 05/30/2018 Overview: 03/26 CT chest [facility] 6mm nodule. Mak 6mo ordered. [...] Rib Xray-Right 7-9th rib frx 04/01/10CT neck @[place]-mild osteophytes 2007 colonoscopy-WNL. 08/14/03. Colonoscopy-The polyp at 45 cm showed moderate atypia. 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 TIA (transient ischemic attack) 02/25/2017 documented as of this encounter (statuses as of 12/24/2023) Immunizations Name Administration Dates Next Due COVID-19 [...] encounter Miscellaneous Notes * Telephone Encounter - Harmony Diallo CPhT - 09/24/2023 2:46 PM EST New or re-auth: New Patient Curtis Jamil needs a prior authorization for a medication through their [employer] insurance. Medication: Repatha Formulation: 140mg/ml soaj Dosage: 2ml per 28 days ID: [id number] BIN:[id number] PCN:[id number] Phone: Target ship date is new start. Thank you very much, Harmony Diallo CPhT Developer Programmer Analyst [facility] 09/24/2023,2:47 PM documented in this encounter Plan of Treatment Upcoming Encounters Date Type Department Care Team (Latest Contact Info) Description 01/12/2024 12:00 PM EDT Office Visit [facility] [address] [place] [address] Miguel Suarez MD [address] [place] [address] 01/14/2024 2:30 PM EDT Hospital Encounter ENDO [facility], Endoscopy Room [facility] [address] [place] [phone] Milvia Arnold MD [address] [place] [address] 01/14/2024 2:30 PM EDT - 01/14/2024 3:00 PM EDT Surgery ENDO [facility], Endoscopy Room [facility] [address] [place] [phone] Milvia Arnold MD [address] [place] [address] COLONOSCOPY FLEXIBLE PROXIMAL DIAGNOSTIC 02/22/2024 10:30 AM EDT [facility] [address] [place] [address] [place], [facility] Cardiology [address] [facility] [place] [address] 04/11/2024 10:00 AM EDT Office Visit [facility] [address] [place] [address] Adelia Pressley CRNP [address] [place] [address] 05/04/2024 9:30 AM EDT Office Visit Cardiology, [facility] [address] [place] [address] Vivienne Sunshine CRNP [address] [place] [address] 07/21/2024 10:00 AM EST Nurse Only Ancillary [facility] [address] [place] [address] [facility], Nurse Annual Wellness [facility] [address] [place] [address] Scheduled Procedures Name Priority Associated Diagnoses Date/Ti [...] Additional history exists CKD HGB USE SMARTSET 05047 05/28/202405/28, 05/28/2023, 11/26/2022, Additional history exists GFR 06/11/2024 12/10/2023, 08/10, 05/28/2023, Additional history exists CKD PHOS USE SMARTSET 80225 11/28/2024 11/29/2023 HbA1c 11/28/2024 11/29/2023, 11/07, 10/24/2021, [...] this encounter Medical Devices Implanted Type Area Industrial Psychology Professor Device Identifier Shelf Expiration Date Model / Serial / Lot Stent Synergy Xd Mr [id number] - [id number] Implanted:Qty: 1 on 11/24/2022 by Johnny Schofield [place] [facility] [employer] [id number] 10/13/2023 [id number] 250 / / [id number] Stent Synergy Xd Mr [id number] - [id number] Implanted:Qty: 1 on 11/24/2022 by Johnny Schofield MD [place] [facility] [employer] [id number] 07/24/2023 [id number] 220 / / [id number] documented as of this encounter Advance Directives [...] the patient have Health Care Power of Grinder Set Up Operator Thread Tool? No Care Teams Mva Operator Relationship Specialty Start Date End Date Miguel Suarez MD [address] [place] [address] PCP - General Family Medicine 07/25/14 documented as of this encounter
--- OUTSIDE RECORDS SUMMARY | 2024-01-24 09:02 | External Medical Summary | Summary of Care ---
Author Name Unknown Organization [facility] Address [address] [facility] [place] [address] Phone [phone] Care Team Providers Care Aircraft Accessories Mechanic Name Role Phone Miguel Suarez MD Primary Care Provider + Reason for Visit * Reason Onset Date Comments Patient Instructions 01/10/2024 colonoscopy Encounter Details Date Type Department Care Team (Late st Contact Info) Description 01/10/2024 Telephone OR [facility], Operating Room [facility] [address] [facility] [place] [phone] Dena Jones, RN Patient Instructions (colonoscopy) Allergies Active Allergy Reactions Criticality Noted Date Comments Atorvastatin 03/04/2018 Myalgia Fluticasone Furoate-Vilanterol 12/24/2021 Tightness in chest Rosuvastatin Calcium 03/04/2018 myalgia Iodinated Contrast Media Anaphylaxis,Itching High 04/26/2008 Contrast dye Other Allergy (See Comments) 04/24/2022 Product Containing 1-btkdsmp-2-methylgl utaryl-coenzyme A Reductase Inhibitor (product) Simvastatin 03/04/2018 [...] 01/10/2024 Nitroglycerin 0.4 MG Sublingual Tablet Sublingual (Nitrostat)Indicati ons:Atherosclerosis of [place] coronary artery of [place] heart with other form of angina pectoris (HCC),Exertional angina (HCC),Coronary artery disease involving coronary bypass graft of [place] heart with angina pectoris (HCC) PLACE 1 [...] 50 MCG/ACT Nasal Suspension (Flonase) Administer 1 [place] into nostril daily as needed. Active Famotidine 20 MG Oral Tablet (Pepcid)Indications :Chronic nausea TAKE 1 TABLET BY MOUTH EVERY DAY IN THE MORNING AND BEFORE BEDTIME 180 Tablet 3 06/01/2023 Active Clopidogrel Bisulfate 75 MG Oral Tablet (pLAVix)Indications :Atherosclerosis of coronary artery of [place] heart with stable angina pectoris, unspecified vessel [...] 12 HOURS 90 Patch 3 12/29/2023 Active Magnesium 500 MG Oral Capsule Take 1 Capsule by mouth in the morning. Active Co Q-10 100 MG Oral Capsule Take by mouth every morning. Take 2 tabs daily Active Vitamin C Plus 1000 MG Oral Tablet Take by mouth every evening. Active documented as of this encounter (statuses [...] disorder, recurrent epi sode 04/12/2019 Atherosclerosis of [place] co ronary artery of [place] heart with stable angina pectoris 07/06/2018 Lung nodules 05/28/2018 Splenomegaly 04/09/2018 History of colon cancer 04/08/2018 Statin intolerance 01/29/2018 Stable angina 02/01/2017 Coronary artery disease invo lving coronary bypass graft of [place] heart with angina pectoris 09/14/2016 S/P angioplasty [...] obstruction) 09/09/2023 09/09/2023 Overview: 04/23 admit. 11/21 [facility] improved w/NPO. Cont ETOH abuse Systolic congestive heart failure 12/03/2022 12/10/2023 ROD (acute kidney injury) 11/26/[address] elevation myocardia l infarction (STEMI) 11/21/2022 11/26/2022 COPD, group A, by GOLD 2017 classification 11/20/2019 11/14/2021 Overview: Per COPD GOLD Classification Well adult exam 04/12/2019 12/10/2023 Overview: Daughter-Sherly. 03/31 inferior MD? Cath- no new lesions of CABG. 12/29 [...] Exertional angina 10/22/2016 01/01/2017 Coronary atherosclerosis of [place] coronary artery 12/26/2013 03/22/2019 Colon cancer 10/06/2013 08/18/2017 Cancer Staging:Clinical:Stage IIIA(T1, N1, M0) - Signed by Aiden Beauchamp MD on 11/24/2013 Pathologic: Unsigned Overview: 09/29/13 S/p partial sigmoid colectomy-Dr Steiner. Pathologic stage pT1N1a. (metastatic adenocarcinoma 08/25 nodes, invading submucosa) Pre-op testing 09/13/2013 02/25/2017 Routine general medical exam ination at a health care facility 01/25/2013 05/30/2018 Overview: 03/26 CT chest [place] 6mm nodule. Mak 6mo ordered. 11/24 stopped crestor-myalgias. 08/25 CONSIDER EGD? 10/24 colon-2mm polyp PATH tubular adenoma. Mak 5y Preconetmplative to cut back ETOH. Stable low plat/wbc. 05/24 periph smear done ok. Colonoscopy 09/[address] Sebastian-for Synvisc Needs HARRIET fall 08/22 25mm colon polyp--Path---cancer--resected. 01/19 prostate discussed-declined 11/29/12 RUQ US @ [place]--possible fatty infiltrate 11/11/12 DEXA @[place]-- T -1.0 hip 07/20 Rib Xray-Right 7-9th rib frx 04/01/10CT neck @[place]-mild osteophytes 2007 colonoscopy-WNL. 08/14/03. Colonoscopy-The polyp at [...] 12:00 PM EDT Office Visit Family Practice [facility] [address] [place] [phone] Miguel Suarez MD [address] [place] [address] 01/14/2024 2:30 PM EDT Hospital Encounter ENDO [facility], Endoscopy Room [facility] [address] [place] [phone] Milvia Arnold MD [address] [place] [address] 01/14/2024 2:30 PM EDT - 01/14/2024 3:00 PM EDT Surgery ENDO [facility], Endoscopy Room [facility] [address] [place] [phone] Milvia Arnold MD [address] [place] [address] COLONOSCOPY FLEXIBLE PROXIMAL DIAGNOSTIC 02/22/2024 10:30 AM EDT Telemedicine Cardiology, [place] [address] [place] [address] [facility] Cardiology [address] [place] [address] 04/11/2024 10:00 AM EDT Office Visit Family Practice [facility] [address] [facility] [place] [address] Adelia Pressley CRNP [address] [place] [address] 05/04/2024 9:30 AM EDT Office Visit Cardiology, [facility] [address] [facility] [place] [address] Vivienne Sunshine CRNP [address] [place] [address] 07/21/2024 10:00 AM EST Nurse Only Ancillary [facility] [address] [facility] [place] [address] [facility], Nurse Annual Wellness [facility] [address] [facility] [place] [address] Scheduled Procedures Name Priority Associated Diagnoses Date/Ti [...] Additional history exists CKD HGB USE SMARTSET 59402 05/28/202405/28, 05/28/2023, 11/26/2022, Additional history exists GFR 06/11/2024 12/10/2023, 08/10, 05/28/2023, Additional history exists CKD PHOS USE SMARTSET 31968 11/28/2024 11/29/2023 HbA1c 11/28/2024 11/29/2023, 11/07, 10/24/2021, [...] this encounter Medical Devices Implanted Type Area Fire Captain Marine Device Identifier Shelf Expiration Date Model / Serial / Lot Stent Synergy Xd Mr [id number] - [id number] Implanted:Qty: 1 on 11/24/2022 by Johnny Schofield MD at [facility] [employer] [id number] 10/13/2023 [id number] 250 / / [id number] Stent Synergy Xd Mr [id number] - [id number] Implanted:Qty: 1 on 11/24/2022 by Johnny Schofield MD at [facility] [employer] [id number] 07/24/2023 [id number] / / [id number] documented as of this encounter Advance Directives * Full Code [...] Power of Attor javier? No Care Teams Aircraft Accessories Mechanic Relationship Specialty Start Date End Date Miguel Suarez MD [address] [facility] [place] [address] PCP - General Family Medicine 07/25/14 documented as of this encounter
--- OUTSIDE RECORDS SUMMARY | 2024-01-24 09:02 | External Medical Summary | Summary of Care ---
Author Name Unknown Organization [facility] Address [address] [facility] [address] Phone [phone] Care Team Providers Care Environmental Compliance Engineer Name Role Phone Miguel Suarez MD Primary Care Provider + Reason for Visit * Reason Comments eRx-Medication Refill Encounter Details Date Type Department Care Team (Late st Contact Info) Description 12/29/2023 Refill Cardiology, [facility] [address] [place] [address] Maria Del Carmen Sam PA-C [address] [place] [phone] Allergies Active Allergy Reactions Criticality Noted Date Comments Atorvastatin 03/04/2018 Myalgia Fluticasone Furoate-Vilanterol 12/24/2021 Tightness in chest Rosuvastatin Calcium 03/04/2018 myalgia Iodinated Contrast Media Anaphylaxis,Itching High 04/26/2008 Contrast dye Other Allergy (See Comments) 04/24/2022 Product Containing 3-iewitdw-1-methylgl utaryl-coenzyme A Reductase Inhibitor (product) Simvastatin 03/04/2018 myalgia documented as of this encounter (statuses as of 12/29/2023) Medications Medication Sig Dispensed Refills Start Date End Date Status Cholecalciferol 5000 UNITS TABS Take 5,000 Units by mouth in the morning. Active pyridOXINE (VITAMIN B-6) 100 MG Tablet Take 1 Tablet by mouth in the morning. Active oxygen GAS 2 LPM bled through NC during hours of sleep 1 Each 0 Active NF Formulas Testosterone Oral Capsule Take 1 Capsule by mouth every morning. Active Allopurinol 300 MG Oral Tablet (Zyloprim)Indicat ions:Chronic gout without tophus, unspecified cause, unspecified site TAKE ONE-HALF TABLET BY MOUTH EVERY MORNING AND 1 TABLET IN THE EVENING 135 Tablet 3 3 Active Nitroglycerin 0.4 MG Sublingual Tablet Sublingual (Nitrostat)Indica tions:Atheroscler osis of [place] coronary artery of [place] heart with other form of angina pectoris (HCC),Exertional angina (HCC),Coronary artery disease involving coronary bypass graft of [place] heart with angina pectoris (HCC) PLACE [...] 50 MCG/ACT Nasal Suspension (Flonase) Administer 1 [place] into nostril daily as needed. Active Famotidine 20 MG Oral Tablet (Pepcid)Indicatio ns:Chronic nausea TAKE 1 TABLET BY MOUTH EVERY DAY IN THE MORNING AND BEFORE BEDTIME 180 Tablet 3 3 Active Clopidogrel Bisulfate 75 MG Oral Tablet (pLAVix)Indicatio ns:Atherosclerosi s of coronary artery of [place] heart with stable angina pectoris, unspecified [...] AND AT BEDTIME 180 Tablet 4 Active Sertraline HCl 100 MG Oral Tablet (Zoloft)Indicatio ns:Episode of recurrent major depressive disorder, unspecified depression episode severity (HCC),ARMOND (generalized anxiety disorder),Memory changes Take 2 Tablets by mouth daily with dinner. 60 Tablet 3 4 01/09/20 24 Active Nitroglycerin 0.6 MG/HR Transdermal Patch 24 Hour (Nitro-Dur) PLACE 1 PATCH TOPICALLY ON THE SKIN IN THE MORNING REMOVE AFTER 12 HOURS 90 Patch 3 4 Active Nitroglycerin 0.6 MG/HR Transdermal Patch 24 Hour (Nitro-Dur) Place 1 Patch over 12 hours topically on the skin in the morning. 90 Patch 3 3 12/29/19 24 Discontinued documented as of this encounter (statuses as of 12/29/2023) Active Problems Problem Noted Date Diagnosed Date [...] disorder, recurrent epi sode 04/12/2019 Atherosclerosis of [place] co ronary artery of [place] heart with stable angina pectoris 07/06/2018 Lung nodules 05/28/2018 Splenomegaly 04/09/2018 History of colon cancer 04/08/2018 Statin intolerance 01/29/2018 Stable angina 02/01/2017 Coronary artery disease invo lving coronary bypass graft of [place] heart with angina pectoris 09/14/2016 S/P [...] as of this encounter (statuses as of 12/29/2023) Resolved Problems Problem Noted Date Diagnosed Date Resolved Date SBO (small bowel obstruction) 09/09/2023 09/09/2023 Overview: 04/23 admit. 11/21 [facility] improved w/NPO. Cont ETOH abuse Systolic congestive heart failure 12/03/2022 12/10/2023 ROD (acute kidney injury) 11/26/[address] elevation myocardia l infarction (STEMI) 11/21/2022 11/26/2022 COPD, group A, by GOLD 2017 classification 11/20/2019 11/14/2021 Overview: Per COPD GOLD Classification Well adult exam 04/12/2019 12/10/2023 Overview: Daughter-Sherly. 03/31 inferior [place]? Cath- no new lesions of CABG. 12/29 TTE [facility] similar. 11/28 new stent. TTE 45-49%. Mod wall motion abn. Mild AR. Mild dilated A root/ascend 10/28 6MWT ok. 10/27 UE EMG ok. 2017 colon 2mm polyp. Mak 5y 2013 colon CA COPD, mild 07/09/2018 11/23/2019 Overview: 2018 PFTs mild obstruction. Breo started--feels breathing is better. Thrombocytopenia 07/06/2018 10/25/2019 Exertional angina 10/22/2016 01/01/2017 Coronary atherosclerosis of [place] coronary artery 12/26/2013 03/22/2019 Colon cancer 10/06/2013 08/18/2017 Cancer Staging:Clinical:Stage IIIA(T1, N1, M0) - Signed by Aiden Beauchamp MD on 11/24/2013 Pathologic: Unsigned Overview: 09/29/13 S/p partial sigmoid colectomy-Dr Steiner. Pathologic stage pT1N1a. (metastatic adenocarcinoma 08/25 nodes, invading submucosa) Pre-op testing 09/13/2013 02/25/2017 Routine general medical exam ination at a health care facility 01/25/2013 05/30/2018 Overview: 03/26 CT chest [facility] 6mm nodule. Mak 6mo ordered. 11/24 stopped crestor-myalgias. 08/25 CONSIDER EGD? 10/24 colon-2mm polyp PATH tubular adenoma. Mak 5y Preconetmplative to cut back ETOH. Stable low plat/wbc. 05/24 periph smear done ok. Colonoscopy 09/[address] WNL[address] Mak [address]. Dr Sebastian-for Synvisc Needs HARRIET fall 08/22 25mm colon polyp--Path---cancer--resected. 01/19 prostate discussed-declined 11/29/12 RUQ US @ [place]--possible fatty infiltrate 11/11/12 DEXA @[facility]-- T -1.0 hip 07/20 Rib Xray-Right 7-9th rib frx 04/01/10CT neck @[facility]-mild osteophytes 2007 colonoscopy-WNL. 08/14/03. Colonoscopy-The polyp at 45 cm showed moderate atypia. 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 TIA (transient ischemic attack) 02/25/2017 documented as of this encounter (statuses as of 12/29/2023) Immunizations Name Administration Dates Next Due COVID-19 [...] Telephone Encounter - Vivienne Avendano CRNP - 12/29/2023 4:29 PM EDT Signed Prescriptions: Disp Refills Nitroglycerin 0.6 MG/HR Transdermal Patch *90 Pat*3 Sig: PLACE 1 PATCH TOPICALLY ON THE SKIN IN THE MORNING REMOVE AFTER 12 HOURS Authorizing Provider: VIVIENNE AVENDANO * Telephone Encounter - Shaun Meredith RN - 12/29/2023 9:56 AM EDTPending Prescriptions: Disp Refills Nitroglycerin 0.6 MG/HR Transdermal Patch *90 Pat*3 Sig: PLACE 1 PATCH TOPICALLY ON THE SKIN IN THE MORNING REMOVE AFTER 12 HOURS * Telephone Encounter - Shaun Meredith RN - 12/29/2023 9:55 AM EDT Pending Prescriptions: Disp Refills Nitroglycerin 0.6 MG/HR Transdermal Patch*90 Pat*3 Sig: PLACE 1 PATCH TOPICALLY ON THE SKIN IN THE MORNING REMOVE AFTER 12 HOURS Last Visit: 11/10/2023 (in office), Visit date not found (telemedicine) Next Visit: 05/04/2024 Last medication order date: 12/22/2022 Have you choosen a preferred pharm?? yes Patient Active Problem List Diagnosis Major depressive disorder HTN, goal below 140/90 Actinic keratosis History of colonic polyps Esophageal reflux Carpal tunnel syndrome, bilateral ADVANCE DIRECTIVE INFORMATION Dyslipidemia, goal LDL below 70 Cerebrovascular disease, arteriosclerotic, post-stroke Gout Prediabetes Alcohol consumption binge drinking Osteoarthritis, knee BPH (benign prostatic hyperplasia) Stasis dermatitis Other seborrheic keratosis Hx of CABG Allergy to radiographic contrast media Coronary artery disease involving coronary bypass graft of [place] heart with angina pectoris (HCC) S/P angioplasty with stent Stable angina ([facility]) Statin intolerance History of colon cancer Splenomegaly Lung nodules Atherosclerosis of [place] coronary artery of [place] heart with stable angina pectoris (HCC) Chronic major depressive disorder, recurrent episode ([facility]) Primary osteoarthritis of first carpometacarpal joint of right hand Dysphagia Chronic nausea Swelling of right hand Puncture wound Primary osteoarthritis of both first carpometacarpal joints HFrEF (heart failure with reduced ejection fraction) ([facility]) History of ST elevation myocardial infarction (STEMI) Chronic combined systolic and diastolic congestive heart failure (HCC) Alcohol use Dizziness Chronic kidney disease, stage 3a ([facility]) Memory changes ARMOND (generalized anxiety disorder) Labs: Lab Results Component Value Date/Time CREATININE - [facility] 1.4 (H) 12/10/2023 10:18 AM CREATININE - [facility] 1.2 05/02/2020 10:43 AM CREATININE, RANDOM URINE - [facility] 196 01/21/2023 01:35 PM CREATININE, RANDOM URINE - [facility] 91 10/20/2013 11:41 AM CREATININE-OUTSIDE LAB 1.18 11/20/2022 12:00 AM Lab Results Component Value Date/Time POTASSIUM - [facility] 4.9 12/10/2023 10:18 AM POTASSIUM - [facility] 4.3 05/02/2020 10:43 AM POTASSIUM-OUTSIDE LAB 4.3 11/20/2022 12:00 AM Lab Results Component Value Date/Time TSH - [facility] 1.74 05/28/2023 11:48 AM TSH - [facility] 1.22 04/12/2019 03:58 PM TSH - OUTSIDE LAB 1.54 10/24/2021 12:00 AM Lab Results Component Value Date/Time LDL (CALCULATED) 152. (H) 11/24/1996 08:00 AM LDL (CALCULATED) 179. (HH) 10/17/1996 08:00 AM LDL (CALCULATED)-OUTSIDE LAB 93 10/24/2021 12:00 AM LDL (CALCULATED)-OUTSIDE LAB 201 (A) 11/25/2017 12:00 AM LDL CHOLESTEROL (CALCULATED) - [facility] 88 11/29/2023 09:39 AM LDL CHOLESTEROL (CALCULATED) - [facility] 47 11/21/2022 04:37 AM LDL CHOLESTEROL (CALCULATED) - [facility] 98 12/29/2019 10:07 AM LDL CHOLESTEROL (CALCULATED) - [facility] 119 09/11/2019 08:50 AM LDL CHOLESTEROL (DIRECT MEASURE) - [facility] NOT APPLICABLE 12/29/2019 10:07 AM LDL CHOLESTEROL (DIRECT MEASURE) - [facility] NOT APPLICABLE 09/11/2019 08:50 AM LDL CHOLESTEROL-OUTSIDE LAB 125 (A) 04/13/2012 12:00 AM LDL CHOLESTEROL-OUTSIDE LAB 105 (A) 04/14/2011 12:00 AM Lab Results Component Value Date/Time ALT 23 11/24/1996 08:00 AM ALT - [facility] 29 08/31/2022 08:53 AM ALT - [facility] 24 12/29/2019 10:07 AM ALTERNARIA IGE - [facility] <0.20 11/04/2021 10:06 AM Hemoglobin AIC Results: Lab Results Component Value Date/Time HEMOGLOBIN A1C - [facility] 5.4 11/29/2023 09:39 AM HEMOGLOBIN A1C - [facility] 5.9 (H) 11/21/2022 04:37 AM HEMOGLOBIN A1C - [facility] 5.7 (H) 05/20/2021 09:47 AM HEMOGLOBIN A1C - [facility] 6.0 (H) 06/21/2019 11:22 AM HEMOGLOBIN A1C - [facility] 5.8 (H) 07/06/2018 10:37 AM HEMOGLOBIN A1C - [facility] 5.1 11/04/2016 10:15 AM documented in this encounter Plan of Treatment Upcoming Encounters Date Type Department Care Team (Latest Contact Info) Description 01/12/2024 12:00 PM EDT Office Visit [facility] [address] [place] [phone] Miguel Suarez MD [address] [place] [address] 01/14/2024 2:30 PM EDT Hospital Encounter ENDO [facility], Endoscopy Room [facility] [address] [place] [phone] Milvia Arnold MD [address] [place] [address] 01/14/2024 2:30 PM EDT - 01/14/2024 3:00 PM EDT Surgery ENDO [facility], Endoscopy Room [facility] [address] [place] [phone] Milvia Arnold MD [address] [place] [address] COLONOSCOPY FLEXIBLE PROXIMAL DIAGNOSTIC 02/22/2024 10:30 AM EDT Telemedicine Cardiology, [place] [address] [place], [place] [phone] [address] [facility] Card[facility] [address] [place] [address] 04/11/2024 10:00 AM EDT Office Visit Family Practice [facility] [address] [place] [address] Adelia Pressley CRNP [address] [place] [address] 05/04/2024 9:30 AM EDT Office Visit Cardiology, [facility] [address] [place] [address] Vivienne Avendano CRNP [address] [place] [address] 07/21/2024 10:00 AM EST Nurse Only Ancillary [facility] [address] [facility] [place] [address] [facility], Nurse Annual Wellness [facility] [address] [facility] [place] [address] Scheduled Procedures Name Priority Associated Diagnoses Date/Ti [...] Additional history exists CKD HGB USE SMARTSET 12507 05/28/202405/28, 05/28/2023, 11/26/2022, Additional history exists GFR 06/11/2024 12/10/2023, 08/10, 05/28/2023, Additional history exists CKD PHOS USE SMARTSET 42093 11/28/2024 11/29/2023 HbA1c 11/28/2024 11/29/2023, 11/07, 10/24/2021, [...] this encounter Medical Devices Implanted Type Area Radio Repairman Device Identifier Shelf Expiration Date Model / Serial / Lot Stent Synergy Xd Mr [id number] - [id number] Implanted:Qty: 1 on 11/24/2022 by Johnny Schofield [place] [facility] [employer] [id number] 10/13/2023 [id number] 250 / / [id number] Stent Synergy Xd Mr [id number] - [id number] Implanted:Qty: 1 on 11/24/2022 by Johnny Schofield MD [place] [facility] [employer] [id number] 07/24/2023 [id number] / / [id number] documented as of this encounter Advance Directives [...] Power of Attor javier? No Care Teams Environmental Compliance Engineer Relationship Specialty Start Date End Date Miguel Suarez MD [address] [place] [address] PCP - General Family Medicine 07/25/14 documented as of this encounter
--- OUTSIDE RECORDS SUMMARY | 2024-01-24 09:03 | External Medical Summary | Summary of Care ---
Author Name Unknown Organization [facility] Address [address] [address] Phone [phone] Care Team Providers Care Bundle Wrapper Name Role Phone Miguel Suarez MD Primary Care Provider + Reason for Visit * Reason Comments eRx-Medication Refill Encounter Details Date Type Department Care Team (Late st Contact Info) Description 12/12/2023 Refill Cardiology, [facility] [address] [place] [address] Maria Del Carmen Sam PA-C [address] [place] [phone] Allergies Active Allergy Reactions Criticality Noted Date Comments Atorvastatin 03/04/2018 Myalgia Fluticasone Furoate-Vilanterol 12/24/2021 Tightness in chest Rosuvastatin Calcium 03/04/2018 myalgia Iodinated Contrast Media Anaphylaxis,Itching High 04/26/2008 Contrast dye Other Allergy (See Comments) 04/24/2022 Product Containing 5-lbxmqdm-7-methylgl utaryl-coenzyme A Reductase Inhibitor (product) Simvastatin 03/04/2018 myalgia documented as of this encounter (statuses as of 12/13/2023) Medications Medication Sig Dispensed Refills Start Date [...] Sublingual Tablet Sublingual (Nitrostat)Indicat ions:Atheroscleros is of [place]well coronary artery of [place] heart with other form of angina pectoris (HCC),Exertional angina (HCC),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 90 Patch 3 12/22/2022 Active Sacubitril-Valsart an 24-26 MG [...] 50 MCG/ACT Nasal Suspension (Flonase) Administer 1 [place] into nostril daily as needed. 0 Active Famotidine 20 MG Oral Tablet (Pepcid)Indication s:Chronic nausea TAKE 1 TABLET BY MOUTH EVERY DAY IN THE MORNING AND BEFORE BEDTIME 180 Tablet 3 06/01/2023 Active Clopidogrel Bisulfate 75 MG Oral Tablet (pLAVix)Indication s:Atherosclerosis of coronary artery of [place] heart with stable angina pectoris, unspecified vessel [...] MORNING AND AT BEDTIME 180 Tablet 0 12/02/2023 Active Sertraline HCl 100 MG Oral Tablet (Zoloft)Indication s:Episode of recurrent major depressive disorder, unspecified depression episode severity (HCC),ARMOND (generalized anxiety disorder),Memory changes Take 2 Tablets by mouth daily with dinner. 60 Tablet 3 12/10/2023 01/09/2024 Active documented as of this encounter (statuses as of 12/13/2023) Active Problems Problem Noted Date Diagnosed Date [...] disorder, recurrent epi sode 04/12/2019 Atherosclerosis of [place] co ronary artery of cantwell heart with stable angina pectoris 07/06/2018 Lung nodules 05/28/2018 Splenomegaly 04/09/2018 History of colon cancer 04/08/2018 Statin intolerance 01/29/2018 Stable angina 02/01/2017 Coronary artery disease invo lving coronary bypass graft of [place]well heart with angina pectoris 09/14/2016 S/P angioplasty [...] as of this encounter (statuses as of 12/13/2023) Resolved Problems Problem Noted Date Diagnosed Date Resolved Date SBO (small bowel obstruction) 09/09/2023 09/09/2023 Overview: 04/23 admit. 11/21 [facility] improved w/NPO. Cont ETOH abuse Systolic congestive heart failure 12/03/2022 12/10/2023 ROD (acute kidney injury) 11/26/[address] elevation myocardia l infarction (STEMI) 11/21/2022 11/26/2022 COPD, group A, by GOLD 2017 classification 11/20/2019 11/14/2021 Overview: Per COPD GOLD Classification Well adult exam 04/12/2019 12/10/2023 Overview: Daughter-Sherly. 03/31 inferior ND? Cath- no new lesions of CABG. 12/29 TTE [facility] similar. 11/28 new stent. TTE 45-49%. Mod wall motion abn. Mild AR. Mild dilated A root/ascend 10/28 6MWT ok. 10/27 UE EMG ok. 2017 colon 2mm polyp. Mak 5y 2013 colon CA COPD, mild 07/09/2018 11/23/2019 Overview: 2018 PFTs mild obstruction. Breo started--feels breathing is better. Thrombocytopenia 07/06/2018 10/25/2019 Exertional angina 10/22/2016 01/01/2017 Coronary atherosclerosis of cantwell coronary artery 12/26/2013 03/22/2019 Colon cancer 10/06/2013 08/18/2017 Cancer Staging:Clinical:Stage IIIA(T1, N1, M0) - Signed by Aiden Beauchamp MD on 11/24/2013 Pathologic: Unsigned Overview: 09/29/13 S/p partial sigmoid colectomy-Dr Steiner. Pathologic stage pT1N1a. (metastatic adenocarcinoma 08/25 nodes, invading submucosa) Pre-op testing 09/13/2013 02/25/2017 Routine general medical exam ination at a health care facility 01/25/2013 05/30/2018 Overview: 03/26 CT chest [facility] 6mm nodule. Mak 6mo ordered. 11/24 stopped crestor-myalgias. 08/25 CONSIDER EGD? 10/24 colon-2mm polyp PATH tubular adenoma. Mak 5y Preconetmplative to cut back ETOH. Stable low plat/wbc. 05/24 periph smear done ok. Colonoscopy 09/[address] Sebastian-for Synvisc Needs HARRIET fall 08/22 25mm colon polyp--Path---cancer--resected. 01/19 prostate discussed-declined 11/29/12 RUQ US @ [place]--possible fatty infiltrate 11/11/12 DEXA @[facility]-- T -1.0 hip 07/20 Rib Xray-Right 7-9th rib frx 04/01/10CT [facility] @[facility]-mild osteophytes 2007 colonoscopy-WNL. 08/14/03. Colonoscopy-The polyp at 45 cm showed moderate atypia. 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 TIA (transient ischemic attack) 02/25/2017 documented as of this encounter (statuses as of 12/13/2023) Immunizations Name Administration Dates Next Due COVID-19 [...] encounter Miscellaneous Notes * Telephone Encounter - Summer Redmond RN - 12/13/2023 12:28 PM EDTRefused Prescriptions: Disp Refills amLODIPine Besylate 10 MG Oral Tablet (Nor*90 Tab*3 Sig: TAKE 1TABLET BY MOUTH EVERY DAY IN THE MORNINGRefused By: SUMMER REDMOND LReason for Refusal: Course of treatment complete * Telephone Encounter - Summer Redmnod RN - 12/13/2023 12:28 PM EDT Called, spoke with patient. Verified amlodipine discontinued as documented in September 2023 and patient no longer taking. * Telephone Encounter - Summer Redmond NADIA Bradley - 12/13/2023 12:19 PM EDT Did you pend patient's preferred pharmacy and medication before forwarding?yes Pharmacy: [id number] [id number] [facility] Pending Prescriptions: Disp Refills amLODIPine Besylate 10 MG Oral Tablet (No*90 Tab*3 Sig: TAKE 1 TABLET BY MOUTH EVERY DAY IN THE MORNING Last Visit: 11/10/2023 (in office), Visit date not found (telemedicine) Next Visit: 05/04/2024 If no future appointments scheduled, and last appointment is greater than a year ago, please schedule patient for a follow-up appointment Last date the medication was ordered: Is this request for a controlled substance?No Urine Drug Screen:No results found. However, due to the size of the patient record, not all encounters were searched. Please check Results Review for a complete set of results. Patient Phone Numbers [employer] [phone] Labs: Lab Results Component Value Date/Time CREAT [...] Description 01/12/2024 12:00 PM EDT Office Visit [facility] [address] [place] [phone] Miguel Suarez MD [address] [place] [address] 01/14/2024 2:30 PM EDT Hospital Encounter ENDO OSS[facility], Endoscopy Room [facility] [address] [place] [phone] Milvia Arnold MD [address] [place] [address] 01/14/2024 2:30 PM EDT - 01/14/2024 3:00 PM EDT Surgery ENDO OSS, Endoscopy Room [facility] [address] [place] [phone] Milvia Arnold MD [address] [place] [address] COLONOSCOPY FLEXIBLE PROXIMAL DIAGNOSTIC 02/22/2024 10:30 AM EDT Telemedicine Cardiology, [address] [place] [address] [facility] Card[facility] [address] [place] [address] 04/11/2024 10:00 AM EDT Office Visit [facility] [address] [place] [address] Adelia Pressley CRNP [address] [place] [address] 05/04/2024 9:30 AM EDT Office Visit Cardiology, [facility] [address] [facility] [place] [address] Vivienne Sunshine CRNP [address] [place] [address] 07/21/2024 10:00 AM EST Nurse Only Ancillary [facility] [address] [place] [address] [facility], Nurse Annual Wellness [facility] [address] [facility] [place] [address] Scheduled Procedures Name Priority Associated Diagnoses Date/Ti [...] Additional history exists CKD HGB USE SMARTSET 75115 05/28/202405/28, 05/28/2023, 11/26/2022, Additional history exists GFR 06/11/2024 12/10/2023, 08/10, 05/28/2023, Additional history exists CKD PHOS USE SMARTSET [id number] 11/28/2024 11/29/2023 HbA1c 11/28/2024 11/29/2023, 11/07, 10/24/2021, [...] this encounter Medical Devices Implanted Type Area Product Info Specialist Device Identifier Shelf Expiration Date Model / Serial / Lot Stent Synergy Xd Mr [id number] - [id number] Implanted:Qty: 1 on 11/24/2022 by Johnny Schofield MD at [facility] [employer] [id number] 10/13/2023 [id number] 250 / / [id number] Stent Synergy Xd Mr [id number] - [id number] Implanted:Qty: 1 on 11/24/2022 by Johnny Schofield MD at [facility] [employer] [id number] 07/24/2023 [id number] / / [id number] documented as of this encounter Advance Directives [...] the patient have Health Care Power of Electrical Tech? No Care Teams Bundle Wrapper Relationship Specialty Start Date End Date Miguel Suarez MD [address] [place] [address] PCP - General Family Medicine 07/25/14 documented as of this encounter
--- OUTSIDE RECORDS SUMMARY | 2024-01-24 09:03 | External Medical Summary | Summary of Care ---
Author Name Unknown Organization [facility] Address [address] [facility] [place] [address] Phone [phone] Care Team Providers Care Small Appliance Assembly Supervisor Name Role Phone Miguel Suarez MD Primary Care Provider + Reason for Visit * Reason Comments Re-Check Starting cardiac andres ab, [facility]. 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); HTN, goal below 140/90; Chronic kidney disease, stage 3a ([facility]); Episode of recurrent major depressive disorder, unspecified depression episode severity ([facility]); ARMOND (generalized anxiety disorder); Memory changes Allergies Active Allergy Reactions Criticality Noted Date Comments Atorvastatin 03/04/2018 Myalgia Fluticasone Furoate-Vilanterol 12/24/2021 Tightness in chest Rosuvastatin Calcium 03/04/2018 myalgia Iodinated Contrast Media Anaphylaxis,Itching High 04/26/2008 Contrast dye Other Allergy (See Comments) 04/24/2022 Product Containing 8-mnqijbz-4-methylgl utaryl-coenzyme A Reductase Inhibitor (product) Simvastatin 03/04/2018 myalgia documented as of this encounter (statuses as of 12/10/2023) Medications Medication Sig Dispensed Refills Start Date [...] Sublingual Tablet Sublingual (Nitrostat)Indica tions:Atheroscler osis of duckwater coronary artery of duckwater heart with other form of angina pectoris (HCC),Exertional angina (HCC),Coronary artery disease involving coronary bypass graft of duckwater heart with angina pectoris (HCC) PLACE 1 [...] the morning. 90 Patch 3 12/22/2022 Active Sacubitril-Valsar loera 24-26 MG [...] 50 MCG/ACT Nasal Suspension (Flonase) Administer 1 Madison into nostril daily as needed. 0 Active Famotidine 20 MG Oral Tablet (Pepcid)Indicatio ns:Chronic nausea TAKE 1 TABLET BY MOUTH EVERY DAY IN THE MORNING AND BEFORE BEDTIME 180 Tablet 3 06/01/2023 Active Clopidogrel Bisulfate 75 MG Oral Tablet (pLAVix)Indicatio ns:Atherosclerosi s of coronary artery of duckwater heart with stable angina pectoris, unspecified vessel [...] with dinner. 60 Tablet 3 12/10/2023 4 Active Sertraline HCl 100 MG Oral Tablet (Zoloft) TAKE 1 AND 1/2 TABLETS BY MOUTH DAILY 135 Tablet 3 10/13/2023 4 Discontinue d(Refill) documented as of this encounter (statuses as of 12/10/2023) Active Problems Problem Noted Date Diagnosed Date [...] disorder, recurrent epi sode 04/12/2019 Atherosclerosis of duckwater co ronary artery of duckwater heart with stable angina pectoris 07/06/2018 Lung nodules 05/28/2018 Splenomegaly 04/09/2018 History of colon cancer 04/08/2018 Statin intolerance 01/29/2018 Stable angina 02/01/2017 Coronary artery disease invo lving coronary bypass graft of duckwater heart with angina pectoris 09/14/2016 S/P angioplasty [...] as of this encounter (statuses as of 12/10/2023) Resolved Problems Problem Noted Date Diagnosed Date [...] exam 04/12/2019 12/10/2023 Overview: Daughter-Sherly. 03/31 inferior [place]? Cath- no new lesions of CABG. 12/29 [...] Exertional angina 10/22/2016 01/01/2017 Coronary atherosclerosis of duckwater coronary artery 12/26/2013 03/22/2019 Colon cancer 10/06/2013 08/18/2017 Cancer Staging:Clinical:Stage IIIA(T1, N1, M0) - Signed by Aiden Beauchamp MD on 11/24/2013 Pathologic: Unsigned Overview: 09/29/13 S/p partial sigmoid colectomy-Dr Steiner. Pathologic stage pT1N1a. (metastatic adenocarcinoma 08/25 nodes, invading submucosa) Pre-op testing 09/13/2013 02/25/2017 Routine general medical exam ination at a health care facility 01/25/2013 05/30/2018 Overview: 03/26 CT chest [facility] 6mm nodule. Mak 6mo ordered. 11/24 stopped crestor-myalgias. 08/25 CONSIDER EGD? 10/24 colon-2mm polyp PATH tubular adenoma. Mak 5y Preconetmplative to cut back ETOH. Stable low plat/wbc. 05/24 periph smear done ok. Colonoscopy 09/[address] Sebastian-for Synvisc Needs HARRIET fall 08/22 25mm colon polyp--Path---cancer--resected. 01/19 prostate discussed-declined 11/29/12 RUQ US @ [place]--possible fatty infiltrate 11/11/12 DEXA @[place]-- T -1.0 hip 07/20 Rib Xray-Right 7-9th rib frx 04/01/10CT neck @[facility]-mild osteophytes 2007 colonoscopy-WNL. 08/14/03. Colonoscopy-The polyp at 45 cm showed moderate atypia. 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 TIA (transient ischemic attack) 02/25/2017 documented as of this encounter (statuses as of 12/10/2023) Immunizations Name Administration Dates Next Due COVID-19 [...] Sign Reading Time Taken Comments Blood Pressure 104/60 12/10/2023 9:19 AM EDT Pulse 60 12/10/2023 9:19 AM EDT Temperature - - Respiratory Rate - - Oxygen Saturation - - Inhaled Oxygen Concentration - - Weight 94.3 kg (208 lb) 12/10/2023 9:19 AM EDT Height - - Body Mass Index 31.86 09/09/2023 8:32 AM EST documented in this encounter Functional [...] as of this encounter Progress Notes * Adelia Pressley, TIMBO - 12/10/2023 9:29 AM EDT Follow up Family Medicine Visit CC: Chief Complaint Patient presents with Re-Check Starting cardiac rehab, [facility]. History of Present Illness: Curtis Jamil is a 73 year old male presenting for 3 month follow up. CHF- weight is stable. He is not having increased sob or swelling. Sometimes has sob. He takes lasix sparingly. He notes only when increased swelling and uses it about 1 time month. He is scheduled to start cardiac rehab. He is still having dizziness with position changes. He has stable angina. Not worse and he had nitro tabs. Complains of memory changes. Mostly short term. Feels nervous a lot. Gets agitated easily. 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 2grandkid daughter -Sharon, son-Jamey sharif 2 grandsons . has friend. 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 11/21 [facility] improved w/NPO. Cont ETOH abuse TIA (transient ischemic attack) 1979 RSZ-lbedlse-mwe on coumadin x30y Past Surgical History: Procedure Laterality Date CABG, ARTERY-VEIN, FIVE 1992 [facility]-Dr Cagle CARDIAC ANGIOPLASTY, PERCUTANEOUS, 1 ARTERY Bilateral 11/24/2022 PTCA, CARDIAC ANGIOPLASTY, PERCUTANEOUS, 1 ARTERY performed by Johnny Schofield MD at [facility] CARDIAC CATH SCANNED RESULT 09/11/2016 cardiac stent-PRESTON the the SVG to 1st OM due to 95% stenosis. CARDIAC CATH-CARDIOLOGY ONLY 04/02/2023 Dr Paredes @[facility]. focus on CABG sites-no lesions. stent open. diagonal disease. CARPAL TUNNEL SURGERY 2004 right CARPAL TUNNEL SURGERY Left 01/03/2021 NEUROPLASTY MEDIAN NERVE AT CARPAL TUNNEL performed by Higinio Lindsay MD at OR [facility] COLONOSCOPY, DIAGNOSTIC (RECTUM) 09/05/2013 COLONOSCOPY FLEXIBLE PROXIMAL DIAGNOSTIC performed by Milvia Arnold MD at ENDOSCOPY [facility] COLONOSCOPY, DIAGNOSTIC (RECTUM) 10/01/2014 diverticulosis, repeat 3 yrs/COLONOSCOPY FLEXIBLE PROXIMAL DIAGNOSTIC performed by Milvia Arnold MD at ENDOSCOPY [facility] COLONOSCOPY, DIAGNOSTIC (RECTUM) 10/20/2017 adenomatous polyp, repeat 5 yrs/COLONOSCOPY FLEXIBLE PROXIMAL DIAGNOSTIC performed by Milvia Arnold MD at ENDOSCOPY [facility] CORONARY ANGIOGRAPHY W/LEFT HEART CATH 11/04/2016 CORONARY ANGIOGRAPHY W/LEFT HEART CATH performed by Liz Zhang MD at [facility] EGD, FLEXIBLE, DIAGNOSTIC 04/28/2022 normal bx / ESOPHAGOGASTRODUODENOSCOPY (EGD), FLEXIBLE, TRANSORAL, DIAGNOSTIC performed by Syed Ferrara MD at ENDOSCOPY [facility] KNEE ARTHROSCOPY, DIAGNOSTIC Knee Arthroscopy, several MISCELLANEOUS ORDER ([facility] ONLY) sinus trubinate reduction MISCELLANEOUS ORDER ([facility] ONLY) left great toe surgery PARTIAL REMOVAL OF COLON 09/29/2013 Sigmoid colon resection with stapled end-to-end anastomosis, [facility], Dr. Steiner REMOVE TONSILS & ADENOIDS, UNDER 12 T & A, age<12 SYNVISC 1MG INJ, INTRA-ARTICULAR 04/2011 right knee done Outpatient Medications Marked as Taking for the 12/10/23 encounter (Office Visit) with Adelia Pressley CRNP Medication Sig Pantoprazole Sodium 40 MG Oral Tablet Delayed Release (Protonix) TAKE 1 TABLET BY MOUTH EVERY DAY IN THE MORNING AND AT BEDTIME Repatha SureClick 140 MG/ML Subcutaneous Solution Auto-injector (evolocumab) Inject 140 mg (1 pen) under the skin every 14 days. Ranolazine ER 500 MG Oral Tablet Extended Release 12 Hour (Ranexa) TAKE 1 TABLET BY MOUTH IN THE MORNING AND BEFORE BEDTIME Sertraline HCl 100 MG Oral Tablet (Zoloft) TAKE 1 AND 1/2 TABLETS BY MOUTH DAILY Terazosin HCl 2 MG Oral Capsule TAKE 1 CAPSULE BY MOUTH EVERYDAY AT BEDTIME Metoprolol Succinate ER 25 MG Oral Tablet Extended Release 24 Hour (toPROL XL) Take 1 Tablet by mouth in the morning. Clopidogrel Bisulfate 75 MG Oral Tablet (pLAVix) TAKE 1 TABLET BY MOUTH EVERY DAY Famotidine 20 MG Oral Tablet (Pepcid) TAKE 1 TABLET BY MOUTH EVERY DAY IN THE MORNING AND BEFORE BEDTIME Fluticasone Propionate 50 MCG/ACT Nasal Suspension (Flonase) Administer 1 Madison into nostril daily as needed. Vitamin B-12 1000 MCG Oral Tablet (Cyanocobalamin) Take 1 Tablet by mouth in the morning. Vitamin E 400 UNIT Oral Capsule (Aquasol E) Take 1 Capsule by mouth in the morning. Furosemide 20 MG Oral Tablet (Lasix) Take 1 Tablet by mouth as needed (swelling, weight gain and shortness of breath). Nitroglycerin 0.6 MG/HR Transdermal Patch 24 Hour (Nitro-Dur) Place 1 Patch over 12 hours topicallyon the skin in the morning. Sacubitril-Valsartan 24-26 MG Oral Tablet (Entresto) Take 1 Tablet by mouth in the morning and 1 Tablet in the evening. PATIENT REQUESTING 90 DAY SUPPLY - THIS REPLACES PREVIOUS PRESCRIPTION ON FILE. Aspirin 81 MG Oral Tablet Chewable Chew & swallow 1 Tablet by mouth in the morning. Nitroglycerin 0.4 MG Sublingual Tablet Sublingual (Nitrostat) PLACE 1 TAB UNDER THE TONGUE EVERY 5 MINUTES NEEDED FOR PAIN, CHEST. UP TO 3 DOSES IN 15 MINUTES Allopurinol 300 MG Oral Tablet (Zyloprim) TAKE ONE-HALF TABLET BY MOUTH EVERY MORNING AND 1 TABLET IN THE EVENING NF Formulas Testosterone Oral Capsule Take 1 Capsule by mouth every morning. oxygen GAS 2 LPM bled through NC during hours of sleep pyridOXINE (VITAMIN B-6) 100 MG Tablet Take 1 Tablet by mouth in the morning. Cholecalciferol 5000 UNITS TABS Take 5,000 Units by mouth in the morning. Review of patient's allergies indicates: Allergen Reactions Iodinated Contrast Media Anaphylaxis and Itching Contrast dye Atorvastatin Myalgia Breo Ellipta [Fluticasone Furoate-Vilanterol] Tightness in chest Crestor [Rosuvastatin Calcium] myalgia Other Allergy (See Comments) Product Containing 9-zvbkvjo-0-methylglutaryl-coenzyme A Reductase Inhibitor (product) Simvastatin myalgia Most Recent Immunizations Administered Date(s) Administered COVID-19 mRNA, LNP-s, No Preserve, 2-Dose Series (Moderna) 10/16/2020 COVID-19 mRNA, LNP-s, No Preserve, 2-Dose Series (Hitmeister) 07/21/2021 COVID-19, mRNA, LNP-s, PF, Booster, 100mcg/0.5mg (Moderna) 07/21/2021 Pneumococcal Conjugate Vacc, 13 Valent (Prevnar) 10/29/2015 Pneumococcal Polysaccharide PPV23 (Pneumovax) 02/25/2017 Pneumococcal Vaccine, Unspecified Formulation 08/07/2014 Seasonal Influenza Virus Vaccine, Unspecified Formulation 06/09/2021 Seasonal Influenza, PF, 6 M & above, IM , (FluLaval or Fluzone) 05/11/2020 Seasonal Influenza, Quadrivalent Hd (Fluzone Hd) 05/28/2023 Seasonal Influenza, Quadrivalent, No Preserve, IM 06/19/2015 Seasonal Influenza, Split, IIV3, With Preserve, Inj 06/02/2016 Seasonal Influenza, Trivalent, Adjuvanted, 65+ yrs 06/15/2019 TD - Tetanus/Diptheria (ADULT) 03/12/2004 TDAP (age 10 and older)(Boostrix) 04/14/2022 Varicella Zoster Vaccine (Adult) 02/15/2015 Zoster Vaccine Recombinant (Shingrix) 06/15/2019, 06/15/2019 Review of Systems: Review of Systems Constitutional: Negative for fatigue. Respiratory: Positive for shortness of breath. Cardiovascular: Positive for chest pain and leg swelling. Negative for palpitations. Gastrointestinal: Negative for abdominal pain. Neurological: Positive for dizziness. Negative for headaches. Psychiatric/Behavioral: Positive for decreased concentration. Negative for dysphoric mood and sleepdisturbance. The patient is nervous/anxious. Physical Exam: BP 104/60 | Pulse 60 | Wt 94.3 kg (208 lb) | BMI 31.86 kg/m | BSA 2.12 m Physical Exam HENT: Head: Normocephalic. Cardiovascular: Rate and Rhythm: Normal rate and regular rhythm. Pulmonary: Effort: Pulmonary effort is normal. Breath sounds: Normal breath sounds. Neurological: General: No focal deficit present. Mental Status: He is alert and oriented to person, place, and time. Psychiatric: Mood and Affect: Mood is anxious. Behavior: Behavior normal. Thought Content: Thought content normal. Judgment: Judgment normal. Assessment and Plan: 1. Dizziness Ongoing with position changes Off of amlodipine Still on toprol 12.5 mg Recommend fall precautions monitor 2. Chronic combined systolic and diastolic congestive heart failure (HCC) Stable No increased swelling or sob - MAGNESIUM; Future 3. 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 HTN, goal below 140/90 Borderline low 5. Chronic kidney disease, stage 3a (HCC) - BASIC METABOLIC PANEL; Future 5. Episode of recurrent major depressive disorder, unspecified depression episode severity (HCC) PHQ9-11 Denies si/hi 6. ARMOND (generalized anxiety disorder) GAD7-14 Denies si/hi 7. Memory changes SLUMS ? MOOD induced I have advised the patient to call our office incase of any worsening or new symptoms. I spent a total of 40-54 minutes (exact time 40 mins) on the date of service in preparation, delivery, and documentation of the care provided to Curtis Jamil excluding any time spent in the performance of separately billed services. Jann, JEAN, TIMBO [facility] Medicine documented in this encounter Plan of Treatment Upcoming Encounters Date Type Department Care Team (Latest Contact Info) Description 01/12/2024 12:00 PM EDT Office Visit Family [facility] [address] [place] [phone] Miguel Suarez MD [address] [place] [address] 01/14/2024 2:30 PM EDT Hospital Encounter ENDO [facility], Endoscopy Room [facility] [address] [place] [phone] Milvia Arnold MD [address] [place] [address] 01/14/2024 2:30 PM EDT - 01/14/2024 3:00 PM EDT Surgery ENDO [facility], Endoscopy Room [facility] [address] [place] [phone] Milvia Arnold MD [address] [place] [address] COLONOSCOPY FLEXIBLE PROXIMAL DIAGNOSTIC 02/22/2024 10:30 AM EDT Telemedicine Cardiology, [address] [place] [address] [facility] Cardiology [address] [place] [address] 04/11/2024 10:00 AM EDT Office Visit [facility] [address] [facility] [address] Adelia Pressley CRNP [address] [place] [address] 05/04/2024 9:30 AM EDT Office Visit Cardiology, [facility] [address] [place] [address] Vivienne Susnhine CRNP [address] [place] [address] 07/21/2024 10:00 AM EST Nurse Only Ancillary [facility] [address] [place] [address] [facility], Nurse Annual Wellness [address] [place] [address] Pending Results Name Type Priority Associated Diagnoses Date /Time MAGNESIUM Lab Routine Chronic combined systolic and diastolic congestive heart failure (HCC) 12/10/2023 10:18 AM EDT Scheduled Orders Name Type Priority Associated Diagnoses Orde r Schedule MAGNESIUM Lab Routine Chronic combined systolic and diastolic congestive heart failure (HCC) Expected: 12/10/2023 (Approximate), Expires: 12/09/2024 Scheduled Procedures Name Priority Associated Diagnoses Date/Ti [...] Additional history exists CKD HGB USE SMARTSET 18616 05/28/202405/28, 05/28/2023, 11/26/2022, Additional history exists GFR 06/11/2024 12/10/2023, 08/10, 05/28/2023, Additional history exists CKD PHOS USE SMARTSET 27418 11/28/2024 11/29/2023 HbA1c 11/28/2024 11/29/2023, 11/07, 10/24/2021, [...] this encounter Medical Devices Implanted Type Area Carpenter'S Assistant Device Identifier Shelf Expiration Date Model / Serial / Lot Stent Synergy Xd Mr [id number] - [id number] Implanted:Qty: 1 on 11/24/2022 by Johnny Schofield MD at [facility] [employer] [id number] 10/13/2023 [id number] 250 / / [id number] Stent Synergy Xd Mr [id number] - [id number] Implanted:Qty: 1 on 11/24/2022 by Johnny Schofield MD at [facility] [employer] [id number] 07/24/2023 [id number] 220 / / [id number] documented as of this encounter Results * (ABNORMAL) BASIC METABOLIC PANEL (12/10/2023 10:18 AM EDT) BUN 26(H) 6 - 20 mg/dL 12/10/2023 12:09 PM EDT [facility] Creatinine 1.4(H) 0.6 - 1.2 mg/dL 12/10/2023 12:09 PM EDT [facility] Estimated Glomerular Filtration Rate 55(L) >=60 mL/min 12/10/2023 12:09 PM EDT [facility] Comment:eGFR is calculated b ased on the CKD-EPI 2020 equation Sodium 141 135 - 146 mmol/L 12/10/2023 12:09 PM EDT [facility] Potassium 4.9 3.5 - 5.1 mmol/L 12/10/2023 12:09 PM EDT [facility] Chloride 108(H) 98 - 107 mmol/L 12/10/2023 12:09 PM EDT [facility] CO2 23 22 - 32 mmol/L 12/10/2023 12:09 PM EDT [facility] Anion Gap 10 7 - 15 mmol/L 12/10/2023 12:09 PM EDT [facility] Glucose 117 70 - 120 mg/dL 12/10/2023 12:09 PM EDT [facility] Calcium 9.2 8.4 - 10.2 mg/dL 12/10/2023 12:09 PM EDT [facility] Blood Venous blood specimen / Unknown Venipuncture / Unknown 12/10/2023 10:18 AM EDT 12/10/2023 10:19 AM EDT Adelia IZQUIERDO LAB BLOOD ORDWilbur [facility] [address] [place] [phone] documented in this encounter Visit Diagnoses Diagnosis Dizziness- Primary Dizziness and giddiness Chronic combined systolic and diastolic congestive heart failure (HCC) Chronic combined systolic and diastolic heart failure 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 No Care Teams Small Appliance Assembly Supervisor Relationship Specialty Start Date End Date Miguel Suarez MD [address] [place] [address] PCP - General Family Medicine 07/25/14 documented as of this encounter
--- OUTSIDE RECORDS SUMMARY | 2024-01-24 09:03 | External Medical Summary ---
Author Name Unknown Address Unknown Organization [id number]:[facility] [place] [address] [place] [address] Laboratory Report Ordering Provider Test Date Status BENITO MONTEJO 12/10/2023 10:18:59 Final Observation Date Value Abnormality Reference (Units ) Status MYCODE SPECIMEN-SST 12/10/2023 10:18:59 Freezing of extracted DNA, whole blood and/or serum. Final Performing Location [facility] [place] [address] [place] [address]
--- OUTSIDE RECORDS SUMMARY | 2024-01-24 09:03 | External Medical Summary ---
Author Name Unknown Address Unknown Organization [id number]:[facility] - [address] [place] [address] Laboratory Report Ordering Provider Test Date Status BYRON MESSER 12/10/2023 10:18:59 Final Observation Date Value Abnormality Reference (Units ) Status BUN 12/10/2023 10:18:59 26 Above high normal 6-20 (mg/dL) Final Creatinine 12/10/2023 10:18:59 1.4 Above high normal 0.6-1.2 (mg/dL) Final Glomerular filtration rate/1.73 sq M.predicted [Volume Rate/Area] in Serum, Plasma or Blood by Creatinine-based formula (CKD-EPI) 12/10/2023 10:18:59 55 Below low normal >=60 (mL/min) Final eGFR is calculated based on the CKD-EPI 2020 equation Sodium 12/10/2023 10:18:59 141 135-146 (m mol/L) Final Potassium 12/10/2023 10:18:59 4.9 3.5-5.1 (m mol/L) Final Cl 12/10/2023 10:18:59 108 Above high normal 98 -107 (mmol/L) Final CO2 12/10/2023 10:18:59 23 22-32 (mmo l/L) Final Anion gap 12/10/2023 10:18:59 10 7-15 (mmol /L) Final Glucose 12/10/2023 10:18:59 117 70-120 (mg /dL) Final Calcium 12/10/2023 10:18:59 9.2 8.4-10.2 ( mg/dL) Final Performing Location [facility] 0 - [address] [place] [address]
--- OUTSIDE RECORDS SUMMARY | 2024-01-24 09:03 | External Medical Summary ---
Author Name Unknown Address Unknown Organization [id number]:[facility] - [address] [place] [address] Laboratory Report Ordering Provider Test Date Status BYRON MESSER 12/10/2023 10:18:59 Final Observation Date Value Abnormality Reference (Units ) Status Magnesium 12/10/2023 10:18:59 2.6 1.5-2.6 (m g/dL) Final Performing Location [facility] - [address] [place] [address]
--- OUTSIDE RECORDS SUMMARY | 2024-01-24 09:03 | External Medical Summary ---
Author Name Unknown Address Unknown Organization [id number]:[facility] [place] - [address] [place] [address] Laboratory Report Ordering Provider Test Date Status BENITO MONTEJO 12/10/2023 10:18:59 Final Observation Date Value Abnormality Reference (Units ) Status MYCODE SPECIMEN-SST 12/10/2023 10:18:59 Freezing of extracted DNA, whole blood and/or serum. Final Performing Location [facility] [place] - [address] [place] [address]
--- OUTSIDE RECORDS SUMMARY | 2024-01-24 09:03 | External Medical Summary | Summary of Care ---
Author Name Unknown Organization [facility] Address [address] [facility] [place] [address] Phone [phone] Care Team Providers Care Diamond Powder Technician Name Role Phone Miguel Suarez MD Primary Care Provider + Reason for Visit * Reason Comments Outpatient Testing Encounter Details Date Type Department Care Team (Late st Contact Info) Description 12/10/2023 11:20 AM EDT Laboratory Laboratory, [facility] [address] [facility] [place] [phone] [facility] [address] [facility] [address] [employer] Other*[id number]; Chronic kidney disease, stage 3a (HCC); Chronic combined systolic and diastolic congestive heart failure (HCC) Allergies Active Allergy Reactions Criticality Noted Date Comments Atorvastatin 03/04/2018 Myalgia Fluticasone Furoate-Vilanterol 12/24/2021 Tightness in chest Rosuvastatin Calcium 03/04/2018 myalgia Iodinated Contrast Media Anaphylaxis,Itching High 04/26/2008 Contrast dye Other Allergy (See Comments) 04/24/2022 Product Containing 0-uvjzknu-7-methylgl utaryl-coenzyme A Reductase Inhibitor (product) Simvastatin 03/04/2018 [...] Sublingual Tablet Sublingual (Nitrostat)Indicat ions:Atheroscleros [place] of [place] coronary artery of [place] heart with other form of angina pectoris (HCC),Exertional angina (HCC),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 PATIENT REQUESTING DAY SUPPLY - THIS REPLACES PREVIOUS PRESCRIPTION [...] 50 MCG/ACT Nasal Suspension (Flonase) Administer 1 [place] into nostril daily as needed. 0 Active Famotidine 20 MG Oral Tablet (Pepcid)Indication s:Chronic nausea TAKE 1 TABLET BY MOUTH EVERY DAY IN THE MORNING AND BEFORE BEDTIME 180 Tablet 3 06/01/2023 Active Clopidogrel Bisulfate 75 MG Oral Tablet (pLAVix)Indication s:Atherosclerosis of coronary artery of [place] heart with stable angina pectoris, unspecified vessel [...] disorder, recurrent epi sode 04/12/2019 Atherosclerosis of [place] co ronary artery of [place] heart with stable angina pectoris 07/06/2018 Lung nodules 05/28/2018 Splenomegaly 04/09/2018 History of colon cancer 04/08/2018 Statin intolerance 01/29/2018 Stable angina 02/01/2017 Coronary artery disease invo lving coronary bypass graft of [place] heart with angina pectoris 09/14/2016 S/P angioplasty [...] obstruction) 09/09/2023 09/09/2023 Overview: 04/23 admit. 11/21 [facility] improved w/NPO. Cont ETOH abuse Systolic congestive heart failure 12/03/2022 12/10/2023 ROD (acute kidney injury) 11/26/[address] elevation myocardia l infarction (STEMI) 11/21/2022 11/26/2022 COPD, group A, by GOLD 2017 classification 11/20/2019 11/14/2021 Overview: Per COPD GOLD Classification Well adult exam 04/12/2019 12/10/2023 Overview: Daughter-Sherly. 03/31 inferior [place]? Cath- no new lesions of CABG. 12/29 [...] Exertional angina 10/22/2016 01/01/2017 Coronary atherosclerosis of [place] coronary artery 12/26/2013 03/22/2019 Colon cancer 10/06/2013 08/18/2017 Cancer Staging:Clinical:Stage IIIA(T1, N1, M0) - Signed by Aiden Beauchamp MD on 11/24/2013 Pathologic: Unsigned Overview: 09/29/13 S/p partial sigmoid colectomy-Dr Steiner. Pathologic stage pT1N1a. (metastatic adenocarcinoma 08/25 nodes, invading submucosa) Pre-op testing 09/13/2013 02/25/2017 Routine general medical exam ination at a health care facility 01/25/2013 05/30/2018 Overview: 03/26 CT chest [facility] 6mm nodule. Mak 6mo ordered. 11/24 stopped crestor-myalgias. 08/25 CONSIDER EGD? 10/24 colon-2mm polyp PATH tubular adenoma. Mak 5y Preconetmplative to cut back ETOH. Stable low plat/wbc. 05/24 periph smear done ok. Colonoscopy 09/[address] Sebastian-for Synvisc Needs [facility] fall 08/22 25mm colon polyp--Path---cancer--resected. 01/19 prostate discussed-declined 11/29/12 RUQ US @ [place]--possible fatty infiltrate 11/11/12 DEXA @[facility]-- T -1.0 hip 07/20 Rib Xray-Right 7-9th rib frx 04/01/10CT neck @[facility]-mild osteophytes 2007 colonoscopy-WNL. 08/14/03. Colonoscopy-The polyp at 45 cm showed moderate atypia. 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 care administrator current use of ant icoagulant therapy 12/24/2003 [...] 12:00 PM EDT Office Visit Family Practice [facility] [address] [place] [address] Miguel Suarez MD [address] [place] [address] 01/14/2024 2:30 PM EDT Hospital Encounter ENDO OSSC, Endoscopy Room [facility] [address] [place] [phone] Milvia Arnold MD [address] [place] [address] 01/14/2024 2:30 PM EDT - 01/14/2024 3:00 PM EDT Surgery ENDO OSSC, Endoscopy Room [facility] [address] [place] [address] Milvia Arnold MD [address] [place] [address] COLONOSCOPY FLEXIBLE PROXIMAL DIAGNOSTIC 02/22/2024 10:30 AM EDT Telemedicine Cardiology, [address] [place] [address] [facility] Cardiology [address] [facility] [place] [address] 04/11/2024 10:00 AM EDT Office Visit Family Practice [facility] [address] [facility] [place] [address] Adelia Pressley CRNP [address] [facility] [place] [address] 05/04/2024 9:30 AM EDT Office Visit Cardiology, [facility] [address] [facility] [place] [address] Vivienne Sunshine CRNP [address] [facility] [place] [address] 07/21/2024 10:00 AM EST Nurse Only Ancillary [facility] [address] [facility] [place] [address] [facility], Nurse Annual Wellness [facility] [address] [facility] [place] [address] Pending Results Name Type Priority Associated Diagnoses Date /Time MYCODE SUBSEQUENT ADULT Lab Routine [employer] Other*[id number] 12/10/2023 10:18 AM EDT BASIC METABOLIC PANEL Lab Routine Chronic kidney disease, stage 3a (HCC) 12/10/2023 10:18 AM EDT MAGNESIUM Lab Routine Chronic combined systolic and diastolic congestive heart failure (HCC) 12/10/2023 10:18 AM EDT MYCODE SST1 Lab Routine [employer] Other*[id number] 12/10/2023 10:18 AM EDT MYCODE SST2 Lab Routine [employer] Other*[id number] 12/10/2023 10:18 AM EDT Scheduled Procedures Name Priority Associated [...] 01/22/2024 023, 10/20/2013, 04/13/2012, Additional history exists GFR 03/06/2024 09/06/2023, 05/10, 04/08/2023, Additional history exists CKD HGB USE SMARTSET 42083 05/28/202405/28, 05/28/2023, 11/26/2022, Additional history exists CKD PHOS USE SMARTSET 86878 11/28/2024 11/29/2023 HbA1c 11/28/2024 11/29/2023, 11/07, 10/24/2021, [...] this encounter Medical Devices Implanted Type Area Lead Welder Device Identifier Shelf Expiration Date Model / Serial / Lot Stent Synergy Xd Mr [id number] - [id number] Implanted:Qty: 1 on 11/24/2022 by Johnny Schofield MD at [facility] [employer]. [id number] 10/13/2023 [id number] 250 / / [id number] Stent Synergy Xd Mr [id number] - [id number] Implanted:Qty: 1 on 11/24/2022 by Johnny Schofield MD at [facility] [employer]. [id number] 07/24/2023 [id number] 220 / / [id number] documented as of this encounter Visit Diagnoses Diagnosis [employer] Other*[id number] Chronic kidney disease, stage 3a (HCC) Chronic combined systolic and diastolic congestive [...] the patient have Health Care Power of Migratory Game Bird Biologist? No Care Teams Diamond Powder Technician Relationship Specialty Start Date End Date Miguel Suarez MD [address] [address] PCP - General Family Medicine 07/25/14 documented as of this encounter
--- OUTSIDE RECORDS SUMMARY | 2024-01-24 09:03 | External Medical Summary | Summary of Care ---
Author Name Unknown Organization [facility] Address [address] [place] [address] Phone [phone] Care Team Providers Care Compressor Station Engineer Name Role Phone Miguel Suarez MD Primary Care Provider + Encounter Details Date Type Department Care Team (Late st Contact Info) Description 12/06/2023 Orders Only Outcomes Research Department [address], [place] [id number] Jadyn Lott CHRA [employer] Other*[id number] Allergies Active Allergy Reactions Criticality Noted Date Comments Atorvastatin 03/04/2018 Myalgia Fluticasone Furoate-Vilanterol 12/24/2021 Tightness in chest Rosuvastatin Calcium 03/04/2018 myalgia Iodinated Contrast Media Anaphylaxis,Itching High 04/26/2008 Contrast dye Other Allergy (See Comments) 04/24/2022 Product Containing 2-bfdmnrr-9-methylgl utaryl-coenzyme A Reductase Inhibitor (product) Simvastatin 03/04/2018 myalgia documented as of this encounter (statuses as of 12/06/2023) Medications Medication Sig Dispensed Refills Start Date End Date Status Cholecalciferol 5000 UNITS TABS Take 5,000 Units by mouth in the morning. 0 Active pyridOXINE (VITAMIN B-6) 100 MG Tablet Take 1 Tablet by mouth in the morning. 0 Active oxygen GAS 2 LPM bled through NC during hours of sleep 1 Each 0 08/30/2019 Active Additional Information Patient not taking.Reported on 09/24/2023 NF Formulas Testosterone Oral Capsule Take 1 Capsule by mouth every morning. 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 90 Patch 3 12/22/2022 Active Sacubitril-Valsarta n 24-26 MG [...] Tablet (pLAVix)Indications :Atherosclerosis of coronary artery of [place] heart with stable angina pectoris, unspecified vessel or lesion type (HCC),Cerebrovascul ar disease, arteriosclerotic, post-stroke TAKE 1 TABLET BY MOUTH EVERY DAY 90 Tablet 3 06/22/2023 Active Metoprolol Succinate ER 25 MG Oral Tablet Extended Release 24 Hour (toPROL XL) Take 1 Tablet by mouth in the morning. 90 Tablet 3 09/24/2023 Active Sertraline HCl 100 MG Oral Tablet (Zoloft) TAKE 1 AND 1/2 TABLETS BY MOUTH DAILY 135 Tablet 3 10/13/2023 Active Terazosin HCl 2 MG Oral Capsule [...] AT BEDTIME 180 Tablet 0 12/02/2023 Active documented as of this encounter (statuses as of 12/06/2023) Active Problems Problem Noted Date Diagnosed Date Chronic kidney disease, stage 3a 09/20/2023 Overview: [...] disorder, recurrent epi sode 04/12/2019 Atherosclerosis of [place] co ronary artery of [place] heart with stable angina pectoris 07/06/2018 Lung nodules 05/28/2018 Splenomegaly 04/09/2018 History of colon cancer 04/08/2018 Statin intolerance 01/29/2018 Stable angina 02/01/2017 Coronary artery disease invo lving coronary bypass graft of [place] heart with angina pectoris 09/14/2016 S/P angioplasty [...] as of this encounter (statuses as of 12/06/2023) Resolved Problems Problem Noted Date Diagnosed Date Resolved Date SBO (small bowel obstruction) 09/09/2023 09/09/2023 Overview: 04/23 admit. 11/21 [facility] improved w/NPO. Cont ETOH abuse Acute ST elevation myocardia l infarction (STEMI) 11/21/2022 11/26/2022 COPD, group A, by GOLD 2017 classification 11/20/2019 11/14/2021 Overview: Per COPD GOLD Classification COPD, mild 07/09/2018 11/23/2019 Overview: 2018 PFTs mild obstruction. Breo started--feels breathing is better. Thrombocytopenia 07/06/2018 10/25/2019 Exertional angina 10/22/2016 01/01/2017 Coronary atherosclerosis of [place] coronary artery 12/26/2013 03/22/2019 Colon cancer 10/06/2013 08/18/2017 Cancer Staging:Clinical:Stage IIIA(T1, N1, M0) - Signed by Aiden Beauchamp MD on 11/24/2013 Pathologic: Unsigned Overview: 09/29/13 S/p partial sigmoid colectomy-Dr Steiner. Pathologic stage pT1N1a. (metastatic adenocarcinoma 08/25 nodes, invading submucosa) Pre-op testing 09/13/2013 02/25/2017 Routine general medical exam ination at a health care facility 01/25/2013 05/30/2018 Overview: 03/26 CT chest [facility] 6mm nodule. Mak 6mo ordered. 11/24 stopped crestor-myalgias. 08/25 CONSIDER EGD? 10/24 colon-2mm polyp PATH tubular adenoma. Mak 5y Preconetmplative to cut back ETOH. Stable low plat/wbc. 05/24 periph smear done ok. Colonoscopy 09/2014 WNL[address] Mak [address]y. Dr Sebastian-for Synvisc Needs [facility] fall 08/22 25mm colon polyp--Path---cancer--resected. 01/19 prostate discussed-declined 11/29/12 RUQ US @ [place]--possible fatty infiltrate 11/11/12 DEXA @[facility]-- T -1.0 hip 07/20 Rib Xray-Right 7-9th rib frx 04/01/10CT neck @[facility]-mild osteophytes 2007 colonoscopy-WNL. 08/14/03. Colonoscopy-The polyp at 45 cm showed moderate atypia. 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 TIA (transient ischemic attack) 02/25/2017 documented as of this encounter (statuses as of 12/06/2023) Immunizations Name Administration Dates Next Due COVID-19 [...] Department Care Team (Latest Contact Info) Description 12/10/2023 9:20 AM EDT Office Visit [facility] [address] [place] [address] Adelia Pressley CRNP [address] [place] [address] 01/12/2024 12:00 PM EDT Office Visit [facility] [address] [place] [address] Miguel Suarez MD [address] [place] [address] 01/14/2024 2:30 PM EDT Hospital Encounter ENDO OSSC, Endoscopy Room [facility] [address] [place] [address] Milvia Arnold MD [address] [place] [address] 01/14/2024 2:30 PM EDT - 01/14/2024 3:00 PM EDT Surgery ENDO OSSC, Endoscopy Room [facility] [address] [place] [address] Milvia Arnold MD [address] [place] [address] COLONOSCOPY FLEXIBLE PROXIMAL DIAGNOSTIC 02/22/2024 10:30 AM EDT Telemedicine Cardiology, [place] [address] [place] [address] [facility] Cardiology [address] [place] [address] 05/04/2024 9:30 AM EDT Office Visit [facility], [facility] [address] [facility] [address] Viv[facility] Sunshine [facility] [address] 07/21/2024 10:00 AM EST Nurse Only Ancillary [facility] [address] [facility] [address] [facility], Nurse Annual Wellness [facility] [address] [facility] [place] [address] Scheduled Orders Name Type Priority Associated Diagnoses Orde r Schedule MYCODE SUBSEQUENT ADULT Lab Routine My[employer] Research Other*[id number] Every 6 Months for 2 Occurrences starting 12/06/2023 until 12/25/2024 Scheduled Procedures Name Priority Associated Diagnoses Date/Ti [...] Additional history exists CKD HGB USE SMARTSET 40435 05/28/202405/28, 05/28/2023, 11/26/2022, Additional history exists CKD PHOS USE SMARTSET 34832 11/28/2024 11/29/2023 HbA1c 11/28/2024 11/29/2023, 11/07, 10/24/2021, [...] this encounter Medical Devices Implanted Type Area Tape Machine Tailer Device Identifier Shelf Expiration Date Model / Serial / Lot Stent Synergy Xd Mr [id number] - [id number] Implanted:Qty: 1 on 11/24/2022 by Johnny Schofield MD at [facility] [place] [id number] 10/13/2023 [id number] 250 / / [id number] Stent Synergy Xd Mr [id number] - [id number] Implanted:Qty: 1 on 11/24/2022 by Johnny Schofield MD at [facility] [place] [id number] 07/24/2023 [id number] 220 / / [id number] documented as of this encounter Visit Diagnoses Diagnosis [employer] Other*[id number] History of colon polyps Personal history of [...] the patient have Health Care Power of High School History Teacher? No Care Teams Compressor Station Engineer Relationship Specialty Start Date End Date Miguel Suarez MD [address] [place] [address] PCP - General Family Medicine 07/25/14 documented as of this encounter
--- OUTSIDE RECORDS SUMMARY | 2024-01-24 09:04 | External Medical Summary | Summary of Care ---
Author Name Unknown Organization [facility] Address [address] [place] [address] Phone [phone] Care Team Providers Care Hook Up Name Role Phone Miguel Suarez MD Primary Care Provider + Reason for Visit * Reason Onset Date Comments Advice 11/30/2023 Labs Encounter Details Date Type Department Care Team (Late st Contact Info) Description 11/30/2023 Telephone Cardiology, [place] [address] [facility] [place] [address] [facility] [address] [facility] [place] [address] Advice (Labs ) Allergies Active Allergy Reactions Criticality Noted Date Comments Atorvastatin 03/04/2018 Myalgia Fluticasone Furoate-Vilanterol 12/24/2021 Tightness in chest Rosuvastatin Calcium 03/04/2018 myalgia Iodinated Contrast Media Anaphylaxis,Itching High 04/26/2008 Contrast dye Other Allergy (See Comments) 04/24/2022 Product Containing 8-pmdigvy-1-methylgl utaryl-coenzyme A Reductase Inhibitor (product) Simvastatin 03/04/2018 myalgia documented as of this encounter (statuses as of 12/01/2023) Medications Medication Sig Dispensed Refills Start Date [...] Sublingual Tablet Sublingual (Nitrostat)Indica tions:Atheroscler osis of [place] coronary artery of [place] heart with other form of angina pectoris (HCC),Exertional angina (HCC),Coronary artery disease involving coronary bypass graft of [place] heart with angina pectoris (HCC) PLACE 1 [...] 50 MCG/ACT Nasal Suspension (Flonase) Administer 1 [place] into nostril daily as needed. 0 Active Famotidine 20 MG Oral Tablet (Pepcid)Indicatio ns:Chronic nausea TAKE 1 TABLET BY MOUTH EVERY DAY IN THE MORNING AND BEFORE BEDTIME 180 Tablet 3 06/01/2023 Active Clopidogrel Bisulfate 75 MG Oral Tablet (pLAVix)Indicatio ns:Atherosclerosi s of coronary artery of [place] heart with stable angina pectoris, unspecified vessel or lesion type (HCC),Cerebrovasc ular disease, arteriosclerotic, post-stroke TAKE 1 TABLET BY MOUTH EVERY DAY 90 Tablet 3 06/22/2023 Active Pantoprazole Sodium 40 MG Oral Tablet Delayed Release (Protonix) TAKE 1 TABLET BY MOUTH EVERY DAY IN THE MORNING AND AT BEDTIME 180 Tablet 0 09/02/2023 Active Metoprolol Succinate ER 25 MG Oral [...] minutes prior to injection. 2 mL 11 09/24/2023 Discontinue d(Refill) documented as of this encounter (statuses as of 12/01/2023) Active Problems Problem Noted Date Diagnosed Date [...] adult exam 04/12/2019 Overview: Daughter-Sherly. 03/31 inferior MD? Cath- no new lesions of CABG. 12/29 TTE [facility] similar. 11/28 new stent. TTE 45-49%. Mod wall motion abn. Mild AR. Mild dilated A root/ascend 10/28 6MWT ok. 10/27 UE EMG ok. 2017 colon 2mm polyp. Mak 5y 2013 colon CA Chronic major depressive disorder, recurrent epi sode 04/12/2019 Atherosclerosis of [place] co ronary artery of [place] heart with stable angina pectoris 07/06/2018 Lung nodules 05/28/2018 Splenomegaly 04/09/2018 History of colon cancer 04/08/2018 Statin intolerance 01/29/2018 Stable angina 02/01/2017 Coronary artery disease invo lving coronary bypass graft of [place]ski heart with angina pectoris 09/14/2016 S/P angioplasty [...] as of this encounter (statuses as of 12/01/2023) Resolved Problems Problem Noted Date Diagnosed Date Resolved Date SBO (small bowel obstruction) 09/09/2023 09/09/2023 Overview: 04/23 admit. 11/21 [facility] improved w/NPO. Cont ETOH abuse Acute ST elevation myocardia l infarction (STEMI) 11/21/2022 11/26/2022 COPD, group A, by GOLD 2017 classification 11/20/2019 11/14/2021 Overview: Per COPD GOLD Classification COPD, mild 07/09/2018 11/23/2019 Overview: 2018 PFTs mild obstruction. Breo started--feels breathing is better. Thrombocytopenia 07/06/2018 10/25/2019 Exertional angina 10/22/2016 01/01/2017 Coronary atherosclerosis of [place] coronary artery 12/26/2013 03/22/2019 Colon cancer 10/06/2013 08/18/2017 Cancer Staging:Clinical:Stage IIIA(T1, N1, M0) - Signed by Aiden Beauchamp MD on 11/24/2013 Pathologic: Unsigned Overview: 09/29/13 S/p partial sigmoid colectomy-Dr Steiner. Pathologic stage pT1N1a. (metastatic adenocarcinoma 08/25 nodes, invading submucosa) Pre-op testing 09/13/2013 02/25/2017 Routine general medical exam ination at a health care facility 01/25/2013 05/30/2018 Overview: 03/26 CT chest [facility] 6mm nodule. Mak 6mo ordered. 11/24 stopped crestor-myalgias. 08/25 CONSIDER EGD? 10/24 colon-2mm polyp PATH tubular adenoma. Mak 5y Preconetmplative to cut back ETOH. Stable low plat/wbc. 05/24 periph smear done ok. Colonoscopy 09/[address] Sebastian-for Synvisc Needs HARRIET fall 08/22 25mm colon polyp--Path---cancer--resected. 01/19 prostate discussed-declined 11/29/12 RUQ [facility] @ [facility]--possible fatty infiltrate 11/11/12 DEXA @[facility]-- T -1.0 hip 07/20 Rib Xray-Right 7-9th rib frx 04/01/10CT neck @[facility]-mild osteophytes 2008 colonoscopy-WNL. 08/14/03. Colonoscopy-The polyp at 45 cm showed moderate atypia. snf current use of ant icoagulant therapy 12/24/2003 11/21/2012 Overview: ICD-10 update of inactive term BENIGN NEOPLASM LG BOWEL 08/31/2003 Calculus of kidney 08/18/2001 8 Coronary atherosclerosis Overview: S/p CABG x5 06/24/1993 VICTORIA-D1-LAD TERRY-RCA SVG-OM1 SVG-OM2 PURE HYPERCHOLESTEROLEM 07/09 Overview: Per Lipid Taxonomy. TIA (transient ischemic attack) 02/25/2017 documented as of this encounter (statuses as of 12/01/2023) Immunizations Name Administration Dates Next Due COVID-19 mRNA, LNP-s, No Pre serve, 2-Dose Series (Moderna) 10/16/2020,09/18/2020 COVID-19 mRNA, LNP-s, No Pre serve, 2-Dose Series (Pfizer) 07/21/2021,10/16/2020,09/18/2020 COVID-19, mRNA, LNP-s, PF, B ooster, 100mcg/0.5mg (Moderna) 07/21/2021 Pneumococcal Conjugate Vacc, 13 Valent (Prevnar) 10/29/2015 Pneumococcal Polysaccharide PPV23 (Pneumovax) 02/25/2017,08/07/2014,06/27/1999 Pneumococcal Vaccine, Unspec ified Formulation 08/07/2014 Seasonal [...] Influenza, Trivalen t, Adjuvanted, 65+ yrs 06/15/2019 TD - Tetanus/Diptheria (ADULT) 03/12/2004 TDAP (age 10 and older)(Boostrix) 2021,08/03/2013,08/09/2010,03/12 Varicella [...] encounter Miscellaneous Notes * Telephone Encounter - Marilin Hernandes OSA - 12/01/2023 12:37 PM EDT Pt called he went for lipid panel labs on 11/29/23 when is he due for labs again there is no active future orders entered I advised pt I would let you know he went for labs early He was under the assumption he was supposed to go 12/06/23 and messed up Thank you CHANDAN Esparza * Telephone Encounter - Alka Avilez [facility] - 12/01/2023 10:50 AM EDT Contacts Type Contact Phone/Fax 11/30/2023 02:18 PM EDT Phone (Outgoing) Curtis Jamil (Self) [phone] (M) Left Message 11/30/2023 02:18 PM EDT Phone (Outgoing) Curtis Jamil (Self) [phone] (M) Spoke to Patient 12/01/2023 10:49 AM EDT Phone (Outgoing) Curtis Jamil (Self) [phone] (M) Left Message 12/01/2023 10:50 AM EDT Phone (Outgoing) Curtis Jamil (Self) [phone] (M) Spoke to Patient Spoke with patient. See progress note for details Alka Soria Clinical [facility] Pharmacist Cardiology 12/01/2023,10:53 AM * Telephone Encounter - Alka Avilez RPh - 11/30/2023 2:18 PM EDT Contacts Type Contact Phone/Fax 11/30/2023 02:18 PM EDT Phone (Outgoing) Curtis Jamil (Self) [phone] (M) Left Message 11/30/2023 02:18 PM EDT Phone (Outgoing) Curtis Jamil (Self) [phone] (M) Spoke to Patient Tried to reach pt to discuss lab results. LDL has increased and is above goal. Spoke with daughter, she will talk with patient and have him call me back. She will see if he has missed any doses or anything that could account for increase in LDL Alka Soria Clinical [facility] Pharmacist Cardiology 11/30/2023,2:19 PM documented in this encounter Plan of Treatment Upcoming Encounters Date Type Department Care Team (Latest Contact Info) Description 12/10/2023 9:20 AM EDT Office Visit [facility] [address] [address] Adelia Pressley CRNP [address] [address] 01/12/2024 12:00 PM EDT Office Visit [facility] [address] [place] [address] Miguel Suarez MD [address] [place] [address] 01/14/2024 2:30 PM EDT Hospital Encounter ENDO [facility], Endoscopy Room [facility] [address] [place] [phone] Milvia Arnold MD [address] [place] [address] 01/14/2024 2:30 PM EDT - 01/14/2024 3:00 PM EDT Surgery ENDO [facility], Endoscopy Room [facility] [address] [place] [phone] Milvia Arnold MD [address] [place] [address] COLONOSCOPY FLEXIBLE PROXIMAL DIAGNOSTIC 02/22/2024 10:30 AM EDT Telemedicine Cardiology, [place] [address] [facility] [place] [address] [place], [facility] Cardiology [address] [place] [address] 05/04/2024 9:30 AM EDT Office Visit Cardiology, [facility] [address] [place] [address] Vivienne Sunshine CRNP [address] [place] [address] 07/21/2024 10:00 AM EST Nurse Only Ancillary [facility] [address] [place] [address] [facility], Nurse Annual Wellness [facility] [address] [place] [address] Scheduled Procedures Name Priority Associated Diagnoses Date/Ti [...] Additional history exists CKD HGB USE SMARTSET 98584 05/28/202405/28, 05/28/2023, 11/26/2022, Additional history exists CKD PHOS USE SMARTSET 29348 11/28/2024 11/29/2023 HbA1c 11/28/2024 11/29/2023, 11/07, 10/24/2021, [...] this encounter Medical Devices Implanted Type Area Research Program Coordinator Device Identifier Shelf Expiration Date Model / Serial / Lot Stent Synergy Xd Mr [id number] - [id number] Implanted:Qty: 1 on 11/24/2022 by Johnny Schofield MD at [facility] [place] [email or web address] [id number] 10/13/2023 [id number] 250 / / [id number] Stent Synergy Xd Mr [id number] - [id number] Implanted:Qty: 1 on 11/24/2022 by Johnny Schofield MD at [facility] [email or web address] [id number] 07/24/2023 [id number] 220 / / [id number] documented as of this encounter Advance Directives [...] the patient have Health Care Power of Tub Tender? No Care Teams Hook Up Relationship Specialty Start Date End Date Miguel Suarez MD [address] [address] PCP - General Family Medicine 07/25/14 documented as of this encounter
--- OUTSIDE RECORDS SUMMARY | 2024-01-24 09:04 | External Medical Summary | Summary of Care ---
Author Name Unknown Organization [facility] Address [address] [place] [address] Phone [phone] Care Team Providers Care Line Server Name Role Phone Miguel Suarez MD Primary Care Provider + Encounter Details Date Type Department Care Team (Late st Contact Info) Description 11/30/2023 Telephone Cardiology, [place] [address] [facility] [place] [id number] [facility] [place] [address] Allergies Active Allergy Reactions Criticality Noted Date Comments Atorvastatin 03/04/2018 Myalgia Fluticasone Furoate-Vilanterol 12/24/2021 Tightness in chest Rosuvastatin Calcium 03/04/2018 myalgia Iodinated Contrast Media Anaphylaxis,Itching High 04/26/2008 Contrast dye Other Allergy (See Comments) 04/24/2022 Product Containing 2-wvimiqb-7-methylgl utaryl-coenzyme A Reductase Inhibitor (product) Simvastatin 03/04/2018 [...] Sublingual Tablet Sublingual (Nitrostat)Indica tions:Atheroscler osis of [place] coronary artery of [place] heart with other form of angina pectoris (HCC),Exertional angina (HCC),Coronary artery disease involving coronary bypass graft of [place] heart with angina pectoris (HCC) PLACE 1 [...] 50 MCG/ACT Nasal Suspension (Flonase) Administer 1 [place] into nostril daily as needed. 0 Active Famotidine 20 MG Oral Tablet (Pepcid)Indicatio ns:Chronic nausea TAKE 1 TABLET BY MOUTH EVERY DAY IN THE MORNING AND BEFORE BEDTIME 180 Tablet 3 06/01/2023 Active Clopidogrel Bisulfate 75 MG Oral Tablet (pLAVix)Indicatio ns:Atherosclerosi s of coronary artery of [place] heart with stable angina pectoris, unspecified vessel [...] adult exam 04/12/2019 Overview: Daughter-Sherly. 03/31 inferior NC? Cath- no new lesions of CABG. 12/29 TTE [facility] similar. 11/28 new stent. TTE 45-49%. Mod wall motion abn. Mild AR. Mild dilated A root/ascend 10/28 6MWT ok. 10/27 UE EMG ok. 2017 colon 2mm polyp. Mak 5y 2013 colon CA Chronic major depressive disorder, recurrent epi sode 04/12/2019 Atherosclerosis of [place] co ronary artery of [place] heart with stable angina pectoris 07/06/2018 Lung nodules 05/28/2018 Splenomegaly 04/09/2018 History of colon cancer 04/08/2018 Statin intolerance 01/29/2018 Stable angina 02/01/2017 Coronary artery disease invo lving coronary bypass graft of [place] heart with angina pectoris 09/14/2016 S/P angioplasty [...] obstruction) 09/09/2023 09/09/2023 Overview: 04/23 admit. 11/21 [facility] improved w/NPO. Cont ETOH abuse Acute ST elevation myocardia l infarction (STEMI) 11/21/2022 11/26/2022 COPD, group A, by GOLD 2017 classification 11/20/2019 11/14/2021 Overview: Per COPD GOLD Classification COPD, mild 07/09/2018 11/23/2019 Overview: 2018 PFTs mild obstruction. Breo started--feels breathing is better. Thrombocytopenia 07/06/2018 10/25/2019 Exertional angina 10/22/2016 01/01/2017 Coronary atherosclerosis of [place] coronary artery 12/26/2013 03/22/2019 Colon cancer 10/06/2013 08/18/2017 Cancer Staging:Clinical:Stage IIIA(T1, N1, M0) - Signed by Aiden Beauchamp MD on 11/24/2013 Pathologic: Unsigned Overview: 09/29/13 S/p partial sigmoid colectomy-Dr Steiner. Pathologic stage pT1N1a. (metastatic adenocarcinoma 08/25 nodes, invading submucosa) Pre-op testing 09/13/2013 02/25/2017 Routine general medical exam ination at a health care facility 01/25/2013 05/30/2018 Overview: 03/26 CT chest [facility] 6mm nodule. Mak 6mo ordered. 11/24 stopped crestor-myalgias. 08/25 CONSIDER EGD? 10/24 colon-2mm polyp PATH tubular adenoma. Mak 5y Preconetmplative to cut back ETOH. Stable low plat/wbc. 05/24 periph smear done ok. Colonoscopy 09/[address]NL[address] Mak [address] Dr Sebastian-for Synvisc Needs HARRIET fall 08/22 25mm colon polyp--Path---cancer--resected. 01/19 prostate discussed-declined 11/29/12 RUQ US @ [facility]--possible fatty infiltrate 11/11/12 [facility]EXA @[facility]-- T -1.0 hip 07/20 Rib Xray-Right 7-9th rib frx 04/01/10CT neck @[facility]-mild osteophytes 2007 colonoscopy-WNL. 08/14/03. Colonoscopy-The polyp at 45 cm showed moderate atypia. senior care current use of ant icoagulant therapy 12/24/2003 [...] encounter Miscellaneous Notes * Telephone Encounter - Alka Avilez RPh - 12/01/2023 10:50 AM EDT Contacts Type Contact Phone/Fax 11/30/2023 02:18 PM EDT Phone (Outgoing) Curtis Jamil (Self) [phone] (M) Left Message 11/30/2023 02:18 PM EDT Phone (Outgoing) Curtis Jamil (Self) [phone] (M) Spoke to Patient 12/01/2023 10:49 AM EDT Phone (Outgoing) Curtis Jamil (Self) [phone] (M) Left Message 12/01/2023 10:50 AM EDT Phone (Outgoing) Curtis Jamil (Self) [phone] (M) Spoke to Patient Spoke with patient. See progress note for details Alka Avilez Pharm D Clinical [facility] Pharmacist Cardiology 12/01/2023,10:53 AM * Telephone Encounter - Alka Avilez RPh - 11/30/2023 2:18 PM EDT Contacts Type Contact Phone/Fax 11/30/2023 02:18 PM EDT Phone (Outgoing) Curtis Jamil (Self) [phone] (M) Left Message 11/30/2023 02:18 PM EDT Phone (Outgoing) [facility] (Self) [phone] (M) Spoke to Patient Tried to reach pt to discuss lab results. LDL has increased and is above goal. Spoke with daughter, she will talk with patient and have him call me back. She will see if he has missed any doses or anything that could account for increase in LDL Alka Avilez Pharm D Clinical [facility] Pharmacist Cardiology 11/30/2023,2:19 PM documented in this encounter Plan of Treatment Upcoming Encounters Date Type Department Care Team (Latest Contact Info) Description 12/06/2023 9:30 AM EDT Laboratory Laboratory, [facility] [address] [phone] [facility] [address] [place] [address] 12/10/2023 9:20 AM EDT Office Visit [facility] [address] [address] Adelia Pressley CRNP [address] [place] [address] 01/12/2024 12:00 PM EDT Office Visit [facility] [address] [address] Miguel Suarez MD [address] [place] [address] 01/14/2024 2:30 PM EDT Hospital Encounter ENDO [facility], Endoscopy Room [facility] [address] [place] [phone] Milvia Arnold MD [address] [place] [address] 01/14/2024 2:30 PM EDT - 01/14/2024 3:00 PM EDT Surgery ENDO [facility], Endoscopy Room [facility] [address] [place] [phone] Milvia Arnold MD [address] [place] [address] COLONOSCOPY FLEXIBLE PROXIMAL DIAGNOSTIC 02/22/2024 10:30 AM EDT Telemedicine Cardiology, [place] [address] [facility] [address] [address] [address] [place] [facility] Cardiology [address] [facility] [place] [address] 05/04/2024 9:30 AM EDT Office Visit Cardiology, [facility] [address] [place] [address] Vivienne Sunshine CRNP [address] [place] [address] 07/21/2024 10:00 AM EST Nurse Only Ancillary [facility] [address] [place] [address] [facility], Nurse Annual Wellness [facility] [address] [place] [address] Scheduled Procedures Name Priority Associated Diagnoses Date/Ti [...] Additional history exists CKD HGB USE SMARTSET 39716 05/28/202405/28, 05/28/2023, 11/26/2022, Additional history exists CKD PHOS USE SMARTSET 88418 11/28/2024 11/29/2023 HbA1c 11/28/2024 11/29/2023, 11/07, 10/24/2021, [...] this encounter Medical Devices Implanted Type Area Emergency Medical Technician Basic Device Identifier Shelf Expiration Date Model / Serial / Lot Stent Synergy Xd Mr [id number] - [id number] Implanted:Qty: 1 on 11/24/2022 by Johnny Schofield MD at [facility] [place] [employer] [id number] 10/13/2023 [id number] 250 / / [id number] Stent Synergy Xd Mr [id number] - [id number] Implanted:Qty: 1 on 11/24/2022 by Johnny Schofield MD at [facility] [place] [employer] [id number] 07/24/2023 [id number] 220 / / [id number] documented as of this encounter Advance Directives [...] the patient have Health Care Power of Payroll Supervisor? No Care Teams Line Server Relationship Specialty Start Date End Date Miguel Suarez MD [address] [facility] [place] [address] PCP - General Family Medicine 07/25/14 documented as of this encounter
--- OUTSIDE RECORDS SUMMARY | 2024-01-24 09:04 | External Medical Summary | Summary of Care ---
Author Name Unknown Organization [facility] Address [address] [facility] [place] [address] Phone [phone] Care Team Providers Care Sky Diver Name Role Phone Miguel Suarez MD Primary Care Provider + Reason for Visit * Reason Onset Date Comments Advice 11/30/2023 Labs Encounter Details Date Type Department Care Team (Late st Contact Info) Description 11/30/2023 Telephone Cardiology, [place] [address] [place] [address] [facility] [place] [address] Advice (Labs ) Allergies Active Allergy Reactions Criticality Noted Date Comments Atorvastatin 03/04/2018 Myalgia Fluticasone Furoate-Vilanterol 12/24/2021 Tightness in chest Rosuvastatin Calcium 03/04/2018 myalgia Iodinated Contrast Media Anaphylaxis,Itching High 04/26/2008 Contrast dye Other Allergy (See Comments) 04/24/2022 Product Containing 1-sktymfh-2-methylgl utaryl-coenzyme A Reductase Inhibitor (product) Simvastatin 03/04/2018 [...] Sublingual Tablet Sublingual (Nitrostat)Indica tions:Atheroscler osis of [place] coronary artery of [...] 50 MCG/ACT Nasal Suspension (Flonase) Administer 1 [place] into nostril daily as needed. 0 Active Famotidine 20 MG Oral Tablet (Pepcid)Indicatio ns:Chronic nausea TAKE 1 TABLET BY MOUTH EVERY DAY IN THE MORNING AND BEFORE BEDTIME 180 Tablet 3 06/01/2023 Active Clopidogrel Bisulfate 75 MG Oral Tablet (pLAVix)Indicatio ns:Atherosclerosi s of coronary artery of [place] [...] adult exam 04/12/2019 Overview: Daughter-Sherly. 03/31 inferior [place]? Cath- no new lesions of CABG. 12/29 [...] obstruction) 09/09/2023 09/09/2023 Overview: 04/23 admit. 11/21 [facility] improved w/NPO. Cont ETOH abuse Acute [...] 05/30/2018 Overview: 03/26 CT chest [facility] 6mm nodule. Mak 6mo ordered. 11/24 stopped crestor-myalgias. 08/25 CONSIDER EGD? 10/24 colon-2mm polyp PATH tubular adenoma. Mak 5y Preconetmplative to cut back ETOH. Stable low plat/wbc. 05/24 periph smear done ok. Colonoscopy 09/[address] Sebastian-for Synvisc Needs HARRIET fall 08/22 25mm colon polyp--Path---cancer--resected. 01/19 prostate discussed-declined 11/29/12 RUQ US @ [place]--possible fatty infiltrate 11/11/12 DEXA @[place]-- T -1.0 hip 07/20 Rib Xray-Right 7-9th rib frx 04/01/10CT neck @[place]-mild osteophytes 2008 colonoscopy-WNL. 08/14/03. Colonoscopy-The polyp at 45 cm showed moderate atypia. shelter current use of ant icoagulant therapy 12/24/2003 [...] Esparza * Telephone Encounter - Alka Avilez [facility] - 12/01/2023 10:50 AM EDT Contacts Type Contact Phone/Fax 11/30/2023 02:18 PM EDT Phone (Outgoing) Curtis Jamil (Self) [phone] (M) Left Message 11/30/2023 02:18 PM EDT Phone (Outgoing) Curtis Jamil (Self) [phone] (M) Spoke to Patient 12/01/2023 10:49 AM EDT Phone (Outgoing) Curtis Jamil (Self) [phone] (M) Left Message 12/01/2023 10:50 AM EDT Phone (Outgoing) Curtis Jamil (Self) [phone] (M) Spoke to Patient Spoke with patient. See progress note for details Alka Soria Clinical [facility] Pharmacist Cardiology 12/01/2023,10:53 AM * Telephone Encounter - Alka Avilez RPh - 11/30/2023 2:18 PM EDT Contacts Type Contact Phone/Fax 11/30/2023 02:18 PM EDT Phone (Outgoing) Curtis Jamil (Self) [phone] (M) Left Message 11/30/2023 02:18 PM EDT Phone (Outgoing) Curtis Jamil (Self) [phone] (M) Spoke to Patient Tried to reach pt to discuss lab results. LDL has increased and is above goal. Spoke with daughter, she will talk with patient and have him call me back. She will see if he has missed any doses or anything that could account for increase in LDL Alka Soria Clinical [facility] Pharmacist Cardiology 11/30/2023,2:19 PM documented in this encounter Plan of Treatment Upcoming Encounters Date Type Department Care Team (Latest Contact Info) Description 12/10/2023 9:20 AM EDT Office Visit [facility] [address] [address] Adelia Pressley CRNP [address] [place] [address] 01/12/2024 12:00 PM EDT Office Visit [facility] [address] [place] [address] Miguel Suarez MD [address] [place] [address] 01/14/2024 2:30 PM EDT Hospital Encounter ENDO [facility], Endoscopy Room [facility] [address] [place] [phone] Milvia Arnold MD [address] [place] [address] 01/14/2024 2:30 PM EDT - 01/14/2024 3:00 PM EDT Surgery ENDO [facility], Endoscopy Room [facility] [address] [place] [phone] Milvia Arnold MD [address] [place] [address] COLONOSCOPY FLEXIBLE PROXIMAL DIAGNOSTIC 02/22/2024 10:30 AM EDT Telemedicine Cardiology, [place] [address] [facility] [place] [address] [place], [facility] Cardiology [address] [facility] [address] 05/04/2024 9:30 AM EDT Office Visit Cardiology, [facility] [address] [place] [address] Vivienne Sunshine CRNP [address] [place] [address] 07/21/2024 10:00 AM EST Nurse Only Ancillary [facility] [address] [place] [address] [facility], Nurse Annual Wellness [facility] [address] [place] [address] Scheduled Procedures Name Priority Associated Diagnoses Date/Ti [...] Additional history exists CKD HGB USE SMARTSET 13578 05/28/202405/28, 05/28/2023, 11/26/2022, Additional history exists CKD PHOS USE SMARTSET 65100 11/28/2024 11/29/2023 HbA1c 11/28/2024 11/29/2023, 11/07, 10/24/2021, [...] this encounter Medical Devices Implanted Type Area Payroll And Benefits Coordinator Device Identifier Shelf Expiration Date Model / Serial / Lot Stent Synergy Xd Mr [id number] - [id number] Implanted:Qty: 1 on 11/24/2022 [place] [facility] [place] [employer] [id number] 10/13/2023 [id number] 250 / / [id number] Stent Synergy Xd Mr [id number] - [id number] Implanted:Qty: 1 on 11/24/2022 by [place] Schofield [place] [facility] [place] [employer] [id number] 07/24/2023 [id number] 220 / / [id number] documented as of this encounter Advance Directives [...] the patient have Health Care Power of Diet Supervisor? No Care Teams Sky Diver Relationship Specialty Start Date End Date Miguel Suarez MD [address] [place] [address] PCP - General Family Medicine 07/25/14 documented as of this encounter
--- OUTSIDE RECORDS SUMMARY | 2024-01-24 09:04 | External Medical Summary | Summary of Care ---
Author Name Unknown Organization [facility] Address [address] [facility] [place] [address] Phone [phone] Care Team Providers Care Language Therapist Name Role Phone Miguel Suarez MD Primary Care Provider + Reason for Visit * Reason Onset Date Comments Advice 11/30/2023 Labs Encounter Details Date Type Department Care Team (Late st Contact Info) Description 11/30/2023 Telephone Cardiology, [place] [address] [facility] [place] [address] [facility] [place] [address] Advice (Labs ) Allergies Active Allergy Reactions Criticality Noted Date Comments Atorvastatin 03/04/2018 Myalgia Fluticasone Furoate-Vilanterol 12/24/2021 Tightness in chest Rosuvastatin Calcium 03/04/2018 myalgia Iodinated Contrast Media Anaphylaxis,Itching High 04/26/2008 Contrast dye Other Allergy (See Comments) 04/24/2022 Product Containing 1-uvtkjdy-3-methylgl utaryl-coenzyme A Reductase Inhibitor (product) Simvastatin 03/04/2018 [...] Sublingual Tablet Sublingual (Nitrostat)Indica tions:Atheroscler osis of [place] coronary artery of [place] heart with other form of angina pectoris (HCC),Exertional angina (HCC),Coronary artery disease involving coronary bypass graft of [place] heart with angina pectoris (HCC) PLACE [...] 50 MCG/ACT Nasal Suspension (Flonase) Administer 1 [place] into nostril daily as needed. 0 Active Famotidine 20 MG Oral Tablet (Pepcid)Indicatio ns:Chronic nausea TAKE 1 TABLET BY MOUTH EVERY DAY IN THE MORNING AND BEFORE BEDTIME 180 Tablet 3 06/01/2023 Active Clopidogrel Bisulfate 75 MG Oral Tablet (pLAVix)Indicatio ns:Atherosclerosi s of coronary artery of [place] heart with stable angina pectoris, unspecified [...] disorder, recurrent epi sode 04/12/2019 Atherosclerosis of [place] co ronary artery of [place] heart with stable angina pectoris 07/06/2018 Lung nodules 05/28/2018 Splenomegaly 04/09/2018 History of colon cancer 04/08/2018 Statin intolerance 01/29/2018 Stable angina 02/01/2017 Coronary artery disease invo lving coronary 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 11/21 [facility] improved w/NPO. Cont ETOH abuse Acute ST elevation myocardia l infarction (STEMI) 11/21/2022 11/26/2022 COPD, group A, by GOLD 2017 classification 11/20/2019 11/14/2021 Overview: Per COPD GOLD Classification COPD, mild 07/09/2018 11/23/2019 Overview: 2018 PFTs mild obstruction. Breo started--feels breathing is better. Thrombocytopenia 07/06/2018 10/25/2019 Exertional angina 10/22/2016 01/01/2017 Coronary atherosclerosis of [place] coronary artery 12/26/2013 03/22/2019 Colon cancer 10/06/2013 08/18/2017 Cancer Staging:Clinical:Stage IIIA(T1, N1, M0) - Signed by Aiden Beauchamp MD on 11/24/2013 Pathologic: Unsigned Overview: 09/29/13 S/p partial sigmoid colectomy-Dr Steiner. Pathologic stage pT1N1a. (metastatic adenocarcinoma 08/25 nodes, invading submucosa) Pre-op testing 09/13/2013 02/25/2017 Routine general medical exam ination at a health care facility 01/25/2013 05/30/2018 Overview: 03/26 CT chest [facility] 6mm nodule. Mak 6mo ordered. 11/24 stopped crestor-myalgias. 08/25 CONSIDER EGD? 10/24 colon-2mm polyp PATH tubular adenoma. Mak 5y Preconetmplative to cut back ETOH. Stable low plat/wbc. 05/24 periph smear done ok. Colonoscopy 09/[address]NL[address] Mak [address] Dr Sebastian-for Synvisc Needs HARRIET fall 08/22 25mm colon polyp--Path---cancer--resected. 01/19 prostate discussed-declined 11/29/12 RUQ US @ [place]--possible fatty infiltrate 11/11/12 [place]A @[place]-- T -1.0 hip 07/20 Rib Xray-Right 7-9th rib frx 04/01/10CT neck @[place]-mild osteophytes 2008 colonoscopy-WNL. 08/14/03. Colonoscopy-The polyp at [...] as of this encounter Miscellaneous Notes * Addendum Note - Alka Avilez RPh - 12/01/2023 1:56 PM EDT Addended by: ALKA AVILEZ on: 12/01/2023 01:56 PM Modules accepted: Orders * Telephone Encounter - Alka Avilez RPh - 12/01/2023 1:55 PM EDT Pt caught up with current labs, does not need anymore right now Lipid panel placed for 3 months from now Alka Avilez Pharm D Clinical [facility] Pharmacist Cardiology 12/01/2023,1:56 PM * Telephone Encounter - Marilin Hernandes OSA [...] Esparza * Telephone Encounter - Alka Avilez RPh - 12/01/2023 10:50 AM EDT Contacts Type Contact Phone/Fax 11/30/2023 02:18 PM EDT Phone (Outgoing) Curtis Jamil (Self) [phone] (M) Left Message 11/30/2023 02:18 PM EDT Phone (Outgoing) Curtis Jamil (Self) [phone] (M) Spoke to Patient 12/01/2023 10:49 AM EDT Phone (Outgoing) Curtis Jamil (Self) [phone] (M) Left Message 12/01/2023 10:50 AM EDT Phone (Outgoing) Curtis Jamil (Self) [phone] (M) Spoke to Patient Spoke with patient. See progress note for details Alka Avilez Pharm D Clinical [facility] Pharmacist Cardiology 12/01/2023,10:53 AM * Telephone Encounter - Alka Avilez RPh - 11/30/2023 2:18 PM EDT Contacts Type Contact Phone/Fax 11/30/2023 02:18 PM EDT Phone (Outgoing) Curtis Jamil (Self) [phone] (M) Left Message 11/30/2023 02:18 PM EDT Phone (Outgoing) Curtis Jamil (Self) [phone] (M) Spoke to Patient Tried to reach [...] Description 12/10/2023 9:20 AM EDT Office Visit [facility] [address] [place] [address] Adelia Pressley CRNP [address] [place] [address] 01/12/2024 12:00 PM EDT Office Visit [facility] [address] [place] [address] Miguel Suarez MD [address] [place] [address] 01/14/2024 2:30 PM EDT Hospital Encounter ENDO [facility], Endoscopy Room [facility] [address] [place] [address] Milvia Arnold MD [address] [place] [address] 01/14/2024 2:30 PM EDT - 01/14/2024 3:00 PM EDT Surgery ENDO [facility], Endoscopy Room [facility] [address] [place] [address] Milvia Arnold MD [address] [place] [address] COLONOSCOPY FLEXIBLE PROXIMAL DIAGNOSTIC 02/22/2024 10:30 AM EDT Telemedicine Cardiology, [place] [address] [place], [place] [address] [address] [facility] [place] [address] 05/04/2024 9:30 AM EDT Office Visit Cardiology, [facility] 132 [facility] [place] [address] Vivienne Sunshine CRNP [address] [place] [address] 07/21/2024 10:00 AM EST Nurse Only Ancillary [facility] 132 [facility] [place] [phone] [facility], Nurse Annual Wellness [facility] [address] [facility] [place] [address] Scheduled Orders Name Type Priority Associated Diagnoses Orde r Schedule LIPID PANEL WITH DIRECT LDL IF TG IS HIGH Lab Routine Dyslipidemia, goal LDL below 70 Expected: 03/01/2024, Expires: 11/30/2024 Scheduled Procedures Name Priority Associated Diagnoses Date/Ti [...] Additional history exists CKD HGB USE SMARTSET 33331 05/28/202405/28, 05/28/2023, 11/26/2022, Additional history exists CKD PHOS USE SMARTSET 63109 11/28/2024 11/29/2023 HbA1c 11/28/2024 11/29/2023, 11/07, 10/24/2021, [...] this encounter Medical Devices Implanted Type Area Senior Technical Business Analyst Device Identifier Shelf Expiration Date Model / Serial / Lot Stent Synergy Xd Mr 2.31x20cz - [id number] Implanted:Qty: 1 on 11/24/2022 by [place] Schofield [place] [facility] [place] [employer] [id number] 10/13/2023 [id number] 250 / / [id number] Stent Synergy Xd Mr 2.92c82oh - [id number] Implanted:Qty: 1 on 11/24/2022 by Johnny Schofield MD [place] [facility] [place] [employer] [id number] 07/24/2023 [id number] 220 / / [id number] documented as of this encounter Visit Diagnoses [...] the patient have Health Care Power of Network Administrator? No Care Teams Language Therapist Relationship Specialty Start Date End Date Miguel Suarez MD [address] [place] [address] PCP - General Family Medicine 07/25/14 documented as of this encounter
--- OUTSIDE RECORDS SUMMARY | 2024-01-24 09:04 | External Medical Summary | Summary of Care ---
Author Name Unknown Organization [facility] Address [address] [place] [address] Phone [phone] Care Team Providers Care House Supervisor Name Role Phone Miguel Suarez MD Primary Care Provider + Reason for Visit * Reason Onset Date Comments Advice 11/30/2023 Labs Encounter Details Date Type Department Care Team (Late st Contact Info) Description 11/30/2023 Telephone Cardiology, [place] [address] [place] [address] [facility] [place] [address] Advice (Labs ) Allergies Active Allergy Reactions Criticality Noted Date Comments Atorvastatin 03/04/2018 Myalgia Fluticasone Furoate-Vilanterol 12/24/2021 Tightness in chest Rosuvastatin Calcium 03/04/2018 myalgia Iodinated Contrast Media Anaphylaxis,Itching High 04/26/2008 Contrast dye Other Allergy (See Comments) 04/24/2022 Product Containing 3-algcuhm-7-methylgl utaryl-coenzyme A Reductase Inhibitor (product) Simvastatin 03/04/2018 [...] Sublingual Tablet Sublingual (Nitrostat)Indica tions:Atheroscler osis of [place] coronary artery of [place] heart with other form of angina pectoris (HCC),Exertional angina (HCC),Coronary artery disease involving coronary bypass graft of [place] heart with angina pectoris (HCC) PLACE 1 [...] 50 MCG/ACT Nasal Suspension (Flonase) Administer 1 [place] into nostril daily as needed. 0 Active Famotidine 20 MG Oral Tablet (Pepcid)Indicatio ns:Chronic nausea TAKE 1 TABLET BY MOUTH EVERY DAY IN THE MORNING AND BEFORE BEDTIME 180 Tablet 3 06/01/2023 Active Clopidogrel Bisulfate 75 MG Oral Tablet (pLAVix)Indicatio ns:Atherosclerosi s of coronary artery of [place] heart with stable angina pectoris, unspecified vessel [...] adult exam 04/12/2019 Overview: Daughter-Sherly. 03/31 inferior [place]? Cath- no new lesions of CABG. 12/29 TTE [facility] similar. 11/28 new stent. TTE 45-49%. Mod wall motion abn. Mild AR. Mild dilated A root/ascend 10/28 6MWT ok. 10/27 UE EMG ok. 2017 colon 2mm polyp. 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 11/21 [facility] improved w/NPO. Cont ETOH abuse Acute ST elevation myocardia l infarction (STEMI) 11/21/2022 11/26/2022 COPD, group A, by GOLD 2017 classification 11/20/2019 11/14/2021 Overview: Per COPD GOLD Classification COPD, mild 07/09/2018 11/23/2019 Overview: 2018 PFTs mild obstruction. Breo started--feels breathing is better. Thrombocytopenia 07/06/2018 10/25/2019 Exertional angina 10/22/2016 01/01/2017 Coronary atherosclerosis of [place] coronary artery 12/26/2013 03/22/2019 Colon cancer 10/06/2013 08/18/2017 Cancer Staging:Clinical:Stage IIIA(T1, N1, M0) - Signed by Aiden Beauchamp MD on 11/24/2013 Pathologic: Unsigned Overview: 09/29/13 S/p partial sigmoid colectomy-Dr Steiner. Pathologic stage pT1N1a. (metastatic adenocarcinoma 08/25 nodes, invading submucosa) Pre-op testing 09/13/2013 02/25/2017 Routine general medical exam ination at a health care facility 01/25/2013 05/30/2018 Overview: 03/26 CT chest [facility] 6mm nodule. Mak 6mo ordered. 11/24 stopped crestor-myalgias. 08/25 CONSIDER EGD? 10/24 colon-2mm polyp PATH tubular adenoma. Mak 5y Preconetmplative to cut back ETOH. Stable low plat/wbc. 05/24 periph smear done ok. Colonoscopy 09/[address] WNL[address] Mak [address] Dr Sebastian-for Synvisc Needs HARRIET fall 08/22 25mm colon polyp--Path---cancer--resected. 01/19 prostate discussed-declined 11/29/12 RUQ US @ [place]--possible fatty infiltrate 11/11/12 DEXA @[place]-- T -1.0 hip 07/20 Rib Xray-Right 7-9th rib frx 04/01/10CT neck @[place]-mild osteophytes 2008 colonoscopy-WNL. 08/14/03. Colonoscopy-The polyp at 45 cm showed moderate atypia. correction current use of ant icoagulant therapy 12/24/2003 [...] panel placed for 3 months from now lAka Avilez Pharm D Clinical MTDM Pharmacist Cardiology [...] PM EDT Phone (Outgoing) Curtis Jamil (Self) [phone] (M) Left Message 11/30/2023 02:18 PM EDT Phone (Outgoing) Curtis Jamil (Self) [phone] (M) Spoke to Patient 12/01/2023 10:49 AM EDT Phone (Outgoing) Curtis Jamil (Self) [phone] (M) Left Message 12/01/2023 10:50 AM EDT Phone (Outgoing) Curtis Jamil (Self) [phone] (M) Spoke to Patient Spoke with patient. See progress note for details Alka Avilez Pharm D Clinical MTDM Pharmacist Cardiology 12/01/2023,10:53 AM * Telephone Encounter - Alka Avilez RPh - 11/30/2023 2:18 PM EDT Contacts Type Contact Phone/Fax 11/30/2023 02:18 PM EDT Phone (Outgoing) Curtis Jamil (Self) [phone] (M) Left Message 11/30/2023 02:18 PM EDT Phone (Outgoing) Curtis Jamil (Self) [phone] (M) Spoke to Patient Tried to reach [...] Description 12/10/2023 9:20 AM EDT Office Visit [facility] [address] [place] [address] Adelia Pressley CRNP [address] [place] [address] 01/12/2024 12:00 PM EDT Office Visit [facility] [address] [place] [address] Miguel Suarez MD [address] [place] [address] 01/14/2024 2:30 PM EDT Hospital Encounter ENDO [facility], Endoscopy Room [facility] [address] [place] [address] Milvia Arnold MD [address] [place] [address] 01/14/2024 2:30 PM EDT - 01/14/2024 3:00 PM EDT Surgery ENDO [facility], Endoscopy Room [facility] [address] [place] [address] Milvia Arnold MD [address] [place] [address] COLONOSCOPY FLEXIBLE PROXIMAL DIAGNOSTIC 02/22/2024 10:30 AM EDT Telemedicine Cardiology, [place] [address] [place], [place] [address] [address] [facility] [address] [facility] [place] [address] 05/04/2024 9:30 AM EDT Office Visit Cardiology, [facility] 132 [facility] [place] [address] Vivienne Sunshine CRNP [address] [place] [address] 07/21/2024 10:00 AM EST Nurse Only Ancillary [facility] 132 [facility] [place] [address] [facility], Nurse Annual Wellness [facility] 132 [facility] [place] [address] Scheduled Orders Name Type Priority Associated Diagnoses [...] Additional history exists CKD HGB USE SMARTSET 79462 05/28/202405/28, 05/28/2023, 11/26/2022, Additional history exists CKD PHOS USE SMARTSET 42933 11/28/2024 11/29/2023 HbA1c 11/28/2024 11/29/2023, 11/07, 10/24/2021, [...] this encounter Medical Devices Implanted Type Area Gun Club Manager Device Identifier Shelf Expiration Date Model / Serial / Lot Stent Synergy Xd Mr 2.05a40to - [id number] Implanted:Qty: 1 on 11/24/2022 by Johnny Schofield MD [place] [facility] [place] [employer] [id number] 10/13/2023 [id number] 250 / / [id number] Stent Synergy Xd Mr 2.45f26je - [id number] Implanted:Qty: 1 on 11/24/2022 by Johnny Schofield MD at [facility] [place] [employer] [id number] 07/24/2023 [id number] 220 / / [id number] documented as of this encounter Visit Diagnoses [...] the patient have Health Care Power of Special Education Resource Room Teacher? No Care Teams House Supervisor Relationship Specialty Start Date End Date Miguel Suarez MD [address] [place] [address] PCP - General Family Medicine 07/25/14 documented as of this encounter
--- OUTSIDE RECORDS SUMMARY | 2024-01-24 09:04 | External Medical Summary | Summary of Care ---
Author Name Unknown Organization [facility] Address [address] [facility] [address] Phone [phone] Care Team Providers Care Traveling Crane Operator Name Role Phone Miguel Maki MD Primary Care Provider + Reason for Visit * Reason Comments eRx-Medication Refill Encounter Details Date Type Department Care Team (Late st Contact Info) Description 12/02/2023 Refill Family Practice [facility] [address] [place] [address] Miguel Maki MD [address] [place] [address] Allergies Active Allergy Reactions Criticality Noted Date Comments Atorvastatin 03/04/2018 Myalgia Fluticasone Furoate-Vilanterol 12/24/2021 Tightness in chest Rosuvastatin Calcium 03/04/2018 myalgia Iodinated Contrast Media Anaphylaxis,Itching High 04/26/2008 Contrast dye Other Allergy (See Comments) 04/24/2022 Product Containing 1-udsvwsc-1-methylgl utaryl-coenzyme A Reductase Inhibitor (product) Simvastatin 03/04/2018 myalgia documented as of this encounter (statuses as of 12/02/2023) Medications Medication Sig Dispensed Refills Start Date [...] Sublingual Tablet Sublingual (Nitrostat)Indica tions:Atheroscler osis of [place] coronary artery of [place] heart with other form of angina pectoris (HCC),Exertional angina (HCC),Coronary artery disease involving coronary bypass graft of [place] heart with angina pectoris (HCC) PLACE 1 [...] the morning. 90 Patch 3 3 Active Sacubitril-Valsar loera 24-26 MG [...] 50 MCG/ACT Nasal Suspension (Flonase) Administer 1 [place] into nostril daily as needed. 0 Active Famotidine 20 MG Oral Tablet (Pepcid)Indicatio ns:Chronic nausea TAKE 1 TABLET BY MOUTH EVERY DAY IN THE MORNING AND BEFORE BEDTIME 180 Tablet 3 3 Active Clopidogrel Bisulfate 75 MG Oral Tablet (pLAVix)Indicatio ns:Atherosclerosi s of coronary artery of [place] heart with stable angina pectoris, unspecified vessel [...] TABLETS BY MOUTH DAILY 135 Tablet 3 4 Active Terazosin HCl 2 MG Oral Capsule TAKE 1 CAPSULE BY MOUTH EVERYDAY AT BEDTIME 90 Capsule 3 4 Active Ranolazine ER 500 MG Oral Tablet Extended Release 12 Hour (Ranexa) TAKE 1 TABLET BY MOUTH IN THE MORNING AND BEFORE BEDTIME 180 Tablet 3 4 Active Repatha SureClick 140 MG/ML Subcutaneous Solution Auto-injector (evolocumab) Inject 140 mg under the skin every 14 days. 6 mL 3 4 Active Pantoprazole Sodium 40 MG Oral Tablet Delayed Release (Protonix) TAKE 1 TABLET BY MOUTH EVERY DAY IN THE MORNING AND AT BEDTIME 180 Tablet 0 4 Active Pantoprazole Sodium 40 MG Oral Tablet Delayed Release (Protonix) TAKE 1 TABLET BY MOUTH EVERY DAY IN THE MORNING AND AT BEDTIME 180 Tablet 0 4 12/02/19 24 Discontinued documented as of this encounter (statuses as of 12/02/2023) Active Problems Problem Noted Date Diagnosed Date [...] adult exam 04/12/2019 Overview: Daughter-Sherly. 03/31 inferior [place]? Cath- no new lesions of CABG. 12/29 TTE [place] similar. 11/28 new stent. TTE 45-49%. Mod wall motion abn. Mild AR. Mild dilated A root/ascend 10/28 6MWT ok. 10/27 UE EMG ok. 2017 colon 2mm polyp. Mak 5y 2013 colon CA Chronic major depressive disorder, recurrent epi sode 04/12/2019 Atherosclerosis of [place] co ronary artery of [place] heart with stable angina pectoris 07/06/2018 Lung nodules 05/28/2018 Splenomegaly 04/09/2018 History of colon cancer 04/08/2018 Statin intolerance 01/29/2018 Stable angina 02/01/2017 Coronary artery disease invo lving coronary bypass graft of [place] heart with angina pectoris 09/14/2016 S/P angioplasty [...] as of this encounter (statuses as of 12/02/2023) Resolved Problems Problem Noted Date Diagnosed Date Resolved Date SBO (small bowel obstruction) 09/09/2023 09/09/2023 Overview: 04/23 admit. 11/21 [facility] improved w/NPO. Cont ETOH abuse Acute ST elevation myocardia l infarction (STEMI) 11/21/2022 11/26/2022 COPD, group A, by GOLD 2017 classification 11/20/2019 11/14/2021 Overview: Per COPD GOLD Classification COPD, mild 07/09/2018 11/23/2019 Overview: 2018 PFTs mild obstruction. Breo started--feels breathing is better. Thrombocytopenia 07/06/2018 10/25/2019 Exertional angina 10/22/2016 01/01/2017 Coronary atherosclerosis of [place] coronary artery 12/26/2013 03/22/2019 Colon cancer 10/06/2013 08/18/2017 Cancer Staging:Clinical:Stage IIIA(T1, N1, M0) - Signed by Aiden Beauchamp MD on 11/24/2013 Pathologic: Unsigned Overview: 09/29/13 S/p partial sigmoid colectomy-Dr Steiner. Pathologic stage pT1N1a. (metastatic adenocarcinoma 08/25 nodes, invading submucosa) Pre-op testing 09/13/2013 02/25/2017 Routine general medical exam ination at a health care facility 01/25/2013 05/30/2018 Overview: 03/26 CT chest [facility] 6mm nodule. Mak 6mo ordered. 11/24 stopped crestor-myalgias. 08/25 CONSIDER EGD? 10/24 colon-2mm polyp PATH tubular adenoma. Mak 5y Preconetmplative to cut back ETOH. Stable low plat/wbc. 05/24 periph smear done ok. Colonoscopy 09/[address] Sebastian-for Synvisc Needs HARRIET fall 08/22 25mm colon polyp--Path---cancer--resected. 01/19 prostate discussed-declined 11/29/12 RUQ US @ [place]--possible fatty infiltrate 11/11/12 DEXA @[place]-- T -1.0 hip 07/20 Rib Xray-Right 7-9th rib frx 04/01/10CT neck @[facility]-mild osteophytes 2007 colonoscopy-WNL. 08/14/03. Colonoscopy-The polyp at 45 cm showed moderate atypia. [facility] current use of ant icoagulant therapy 12/24/2003 11/21/2012 Overview: ICD-10 update of inactive term BENIGN NEOPLASM LG BOWEL 08/31/2003 Calculus of kidney 08/18/2001 8 Coronary atherosclerosis Overview: S/p CABG x5 06/24/1993 VICTORIA-D1-LAD TERRY-RCA SVG-OM1 SVG-OM2 PURE HYPERCHOLESTEROLEM 07/09 Overview: Per Lipid Taxonomy. TIA (transient ischemic attack) 02/25/2017 documented as of this encounter (statuses as of 12/02/2023) Immunizations Name Administration Dates Next Due COVID-19 [...] encounter Miscellaneous Notes * Telephone Encounter - Carrie Gallego RPh - 12/02/2023 9:51 AM EDTSigned Prescriptions: Disp Refills Pantoprazole Sodium 40 MG Oral Tablet Ana*180 Ta*0 Sig: TAKE 1 TABLET BY MOUTH EVERY DAY IN THE MORNING AND AT BEDTIMEAuthorizing Provider: MIGUEL MAKI User: CARRIE GALLEGO * Telephone Encounter - Carrie Gallego RPh - 12/02/2023 9:50 AM EDT RX authorized. Zero refills given until upcoming appt. 12/10/2023 Thank you, Carrie Gallego RPh Clinical Pharmacist [facility] ([facility]) (formerly Telepharmacy) 12/02/23 9:50 AM [phone] documented in this encounter Plan of Treatment Upcoming Encounters Date Type Department Care Team (Latest Contact Info) Description 12/10/2023 9:20 AM EDT Office Visit [facility] [address] [place] [address] Adelia Pressley CRNP [address] [place] [address] 01/12/2024 12:00 PM EDT Office Visit [facility] [address] [place] [address] Miguel Maki MD [address] [place] [address] 01/14/2024 2:30 PM EDT Hospital Encounter ENDO OSSC, Endoscopy Room [facility] [address] [place] [phone] Milvia Arnold MD [address] [place] [address] 01/14/2024 2:30 PM EDT - 01/14/2024 3:00 PM EDT Surgery ENDO OSSC, Endoscopy Room [facility] [address] [place] [phone] Milvia Arnold MD [address] [place] [address] COLONOSCOPY FLEXIBLE PROXIMAL DIAGNOSTIC 02/22/2024 10:30 AM EDT Telemedicine Cardiology, [place] [address] [place] [address] Romario [facility] [address] [facility] [address] 05/04/2024 9:30 AM EDT Office Visit Cardiology, [facility] [address] [facility] [place] [address] Vivienne Sunshine CRNP [address] [place] [address] 07/21/2024 10:00 AM EST Nurse Only Ancillary [facility] [address] [place] [address] [facility], Nurse Annual Wellness [facility] [address] [place] [address] Scheduled Procedures Name Priority Associated Diagnoses Date/Ti [...] Additional history exists CKD HGB USE SMARTSET 57638 05/28/202405/28, 05/28/2023, 11/26/2022, Additional history exists CKD PHOS USE SMARTSET 36752 11/28/2024 11/29/2023 HbA1c 11/28/2024 11/29/2023, 11/07, 10/24/2021, [...] this encounter Medical Devices Implanted Type Area Correctional Nurse Device Identifier Shelf Expiration Date Model / Serial / Lot Stent Synergy Xd Mr [id number] - [id number] Implanted:Qty: 1 on 11/24/2022 by Johnny Schofield MD [place] [facility] [employer] [id number] 10/13/2023 [id number] 250 / / [id number] Stent Synergy Xd Mr [id number] - [id number] Implanted:Qty: 1 on 11/24/2022 by Johnny Schofield MD at [facility] [employer] [id number] 07/24/2023 [id number] 220 / / [id number] documented as of this encounter Advance Directives [...] the patient have Health Care Power of Road Service Locksmith? No Care Teams Traveling Crane Operator Relationship Specialty Start Date End Date Miguel Maki MD [address] [place] [address] PCP - General Family Medicine 07/25/14 documented as of this encounter
--- OUTSIDE RECORDS SUMMARY | 2024-01-24 09:04 | External Medical Summary | Summary of Care ---
Author Name Unknown Organization [facility] Address [address] [place] [address] Phone [phone] Care Team Providers Care Proration Clerk Name Role Phone Miguel Suarez MD Primary Care Provider + Reason for Visit * Reason Comments Dosage Adjustment Via Phone (anticoag Cl inic) Hyperlipidemia Encounter Details Date Type Department Care Team (Late st Contact Info) Description 12/01/2023 10:40 AM EDT Telemedicine Cardiology [facility] [place] [address] [place] [address] [place] [address], Pharmacist Cardiology [facility] [address] [place] [address] Dyslipidemia, goal LDL below 70* Allergies Active Allergy Reactions Criticality Noted Date Comments Atorvastatin 03/04/2018 Myalgia Fluticasone Furoate-Vilanterol 12/24/2021 Tightness in chest Rosuvastatin Calcium 03/04/2018 myalgia Iodinated Contrast Media Anaphylaxis,Itching High 04/26/2008 Contrast dye Other Allergy (See Comments) 04/24/2022 Product Containing 5-aulpzeu-6-methylgl utaryl-coenzyme A Reductase Inhibitor (product) Simvastatin 03/04/2018 [...] Sublingual Tablet Sublingual (Nitrostat)Indica tions:Atheroscler osis of [place] coronary artery of [place] heart with other form of angina pectoris (HCC),Exertional angina (HCC),Coronary artery disease involving coronary bypass graft of [place] heart with angina pectoris (HCC) PLACE 1 [...] 50 MCG/ACT Nasal Suspension (Flonase) Administer 1 [place] into nostril daily as needed. 0 Active Famotidine 20 MG Oral Tablet (Pepcid)Indicatio ns:Chronic nausea TAKE 1 TABLET BY MOUTH EVERY DAY IN THE MORNING AND BEFORE BEDTIME 180 Tablet 3 06/01/2023 Active Clopidogrel Bisulfate 75 MG Oral Tablet (pLAVix)Indicatio ns:Atherosclerosi s of coronary artery of [place] heart with stable angina pectoris, unspecified vessel [...] 14 days. 6 mL 3 12/01/2023 Active Repatha SureClick 140 MG/ML Subcutaneous Solution [...] adult exam 04/12/2019 Overview: Daughter-Sherly. 03/31 inferior [place]? Cath- no new lesions of CABG. 12/29 TTE [facility] similar. 11/28 new stent. TTE 45-49%. Mod wall motion abn. Mild AR. Mild dilated A root/ascend 10/28 6MWT ok. 10/27 UE EMG ok. 2017 colon 2mm polyp. Mak 5y 2013 colon CA Chronic major depressive disorder, recurrent epi sode 04/12/2019 Atherosclerosis of [place] co ronary artery of [place] heart with stable angina pectoris 07/06/2018 Lung nodules 05/28/2018 Splenomegaly 04/09/2018 History of colon cancer 04/08/2018 Statin intolerance 01/29/2018 Stable angina 02/01/2017 Coronary artery disease invo lving coronary bypass graft of [place] heart with angina pectoris 09/14/2016 S/P angioplasty [...] obstruction) 09/09/2023 09/09/2023 Overview: 04/23 admit. 11/21 [facility] improved w/NPO. Cont ETOH abuse Acute ST elevation myocardia l infarction (STEMI) 11/21/2022 11/26/2022 COPD, group A, by GOLD 2017 classification 11/20/2019 11/14/2021 Overview: Per COPD GOLD Classification COPD, mild 07/09/2018 11/23/2019 Overview: 2018 PFTs mild obstruction. Breo started--feels breathing is better. Thrombocytopenia 07/06/2018 10/25/2019 Exertional angina 10/22/2016 01/01/2017 Coronary atherosclerosis of [place] coronary artery 12/26/2013 03/22/2019 Colon cancer 10/06/2013 08/18/2017 Cancer Staging:Clinical:Stage IIIA(T1, N1, M0) - Signed by Aiden Beauchamp MD on 11/24/2013 Pathologic: Unsigned Overview: 09/29/13 S/p partial sigmoid colectomy-Dr Steiner. Pathologic stage pT1N1a. (metastatic adenocarcinoma 08/25 nodes, invading submucosa) Pre-op testing 09/13/2013 02/25/2017 Routine general medical exam ination at a health care facility 01/25/2013 05/30/2018 Overview: 03/26 CT chest [facility] 6mm nodule. Mak 6mo ordered. 11/24 stopped crestor-myalgias. 08/25 CONSIDER EGD? 10/24 colon-2mm polyp PATH tubular adenoma. Mak 5y Preconetmplative to cut back ETOH. Stable low plat/wbc. 05/24 periph smear done ok. Colonoscopy 09/[address] WNL[address] Mak [address]. Dr Sebastian-for Synvisc Needs HARRIET fall 08/22 25mm colon polyp--Path---cancer--resected. 01/19 prostate discussed-declined 11/29/12 RUQ US @ [place]--possible fatty infiltrate 11/11/12 DEXA @[facility]-- T -1.0 hip 07/20 Rib Xray-Right 7-9th rib frx 04/01/10CT neck @[facility]-mild osteophytes 2007 colonoscopy-WNL. 08/14/03. Colonoscopy-The polyp at 45 cm showed moderate atypia. 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 Patient was then informed that this was a telephone call only visit. The patient agreed to participate Visit Disposition: Status check/routine follow up Duration: 5 minutes Primary Mill House Supervisor/Ordering Provider: Job/Jil Perez HPI: Curtis Jamil is a 73 year old year old male. History: Pt continues on Repatha and is tolerating well. Had recently lipid panel that showed an increase in LDL and is above goal. Pt states he was without any PCSK9 for a while due to change in insurance and having to switch from Praluent to Repatha. He is now back on track with repatha injection. Target LDL: <70 Clinical ASCVD/Risk Score: The ASCVD Risk score (Mary Carmen BRITO, et al., 2019) failed to calculate for the following reasons: The patient has a prior DC or stroke diagnosis Patient Active Problem List [...] Stasis dermatitis I87.2 Other seborrheic keratosis L82.1 Hx of CABG Z95.1 Allergy to radiographic contrast media Z91.041 Coronary artery disease involving coronary bypass graft of [place] heart with angina pectoris ([facility]) I25.709 S/P angioplasty with stent Z95.820 Stable angina ([facility]) I20.89 Statin intolerance Z78.9 History of colon cancer Z85.038 Splenomegaly R16.1 Lung nodules R91.8 Atherosclerosis of [place] coronary artery of [place] heart with stable angina pectoris ([facility]) I25.118 Well adult exam Z00.00 Chronic major depressive disorder, recurrent episode ([facility]) F33.9 Primary osteoarthritis of first carpometacarpal joint of right hand M18.11 Dysphagia R13.10 Chronic nausea R11.0 Swelling of right hand M79.89 Puncture wound T14.8XXA Primary osteoarthritis of both first carpometacarpal joints M18.0 ROD (acute kidney injury) ([facility]) N17.9 Systolic congestive heart failure ([facility]) I50.20 HFrEF (heart failure with reduced ejection fraction) ([facility]) I50.[address] elevation myocardial infarction (STEMI) I25.2 Chronic combined systolic and diastolic congestive heart failure ([facility]) I50.42 Alcohol use Z78.9 Dizziness R42 Chronic kidney disease, stage 3a ([facility]) N18.31 Review of patient's allergies indicates: Allergen Reactions Iodinated Contrast Media Anaphylaxis and Itching Contrast dye Atorvastatin Myalgia Breo Ellipta [Fluticasone Furoate-Vilanterol] Tightness in chest Crestor [Rosuvastatin Calcium] myalgia Other Allergy (See Comments) Product Containing 1-pgkboeo-4-methylglutaryl-coenzyme A Reductase Inhibitor (product) Simvastatin myalgia LABS: [...] 08:53 AM LDL CHOLESTEROL (CALCULATED) - [facility] 98 [...] encounter. Patient is on the following medication(s): Repatha 140 mg every 2 weeks PLAN OF ACTION Medication Regimen: CONTINUE Labs Needed: yes; 3 months to recheck LDL for improvement Follow-Up Appointment(s): Pharmacist: 3 months Physician: Apr 2024 Vivienne Avilez RPh [facility] Clinical Pharmacist Cardiology Department 12/01/2023,10:52 AM documented in this encounter Plan of Treatment Upcoming Encounters Date Type Department Care Team (Latest Contact Info) Description 12/06/2023 9:30 AM EDT Laboratory Laboratory, [address] [place] [phone] [facility] [address] [place] [address] 12/10/2023 9:20 AM EDT Office Visit [facility] [address] [place] [address] Adelia Pressley CRNP [address] [place] [address] 01/12/2024 12:00 PM EDT Office Visit [facility] [address] [place] [address] Miguel Suarez MD [address] [place] [address] 01/14/2024 2:30 PM EDT Hospital Encounter ENDO OSSC, Endoscopy Room [facility] [address] [place] [phone] Milvia Arnold MD [address] [place] [address] 01/14/2024 2:30 PM EDT - 01/14/2024 3:00 PM EDT Surgery ENDO OSSC, Endoscopy Room [facility] [address] [place] [address] Milvia Arnold MD [address] [place] [address] COLONOSCOPY FLEXIBLE PROXIMAL DIAGNOSTIC 02/22/2024 10:30 AM EDT Telemedicine Cardiology, [address] [place] [address] Romario [facility] Cardiology [address] [place] [address] 05/04/2024 9:30 AM EDT Office Visit Cardiology, [facility] [address] [place] [address] Vivienne Sunshine CRNP [address] [place] [address] 07/21/2024 10:00 AM EST Nurse Only Ancillary [facility] [place] [address] [facility], Nurse Annual Wellness [facility] [address] [place] [address] Scheduled Procedures Name Priority Associated Diagnoses Date/Ti [...] Additional history exists CKD HGB USE SMARTSET 45032 05/28/202405/28, 05/28/2023, 11/26/2022, Additional history exists CKD PHOS USE SMARTSET 82479 11/28/2024 11/29/2023 HbA1c 11/28/2024 11/29/2023, 11/07, 10/24/2021, [...] this encounter Medical Devices Implanted Type Area Water Fabricator Operator Device Identifier Shelf Expiration Date Model / Serial / Lot Stent Synergy Xd Mr [id number] - [id number] Implanted:Qty: 1 on 11/24/2022 by [place]ield [place] [facility] [employer] [id number] 10/13/2023 [id number] 250 / / [id number] Stent Synergy Xd Mr [id number] - [id number] Implanted:Qty: 1 on 11/24/2022 by Johnny Schofield MD [place] [facility] [employer] [id number] 07/24/2023 [id number] 220 / / [id number] documented as of this encounter Visit Diagnoses [...] patient have Health Care Power of School Health Assistant? No Care Teams Proration Clerk Relationship Specialty Start Date End Date Miguel Suarez MD [address] [place] [address] PCP - General Family Medicine 07/25/14 documented as of this encounter
--- OUTSIDE RECORDS SUMMARY | 2024-01-24 09:05 | External Medical Summary ---
Author Name Unknown Address Unknown Organization K01:[facility] - [address] [place] [address] Laboratory Report Ordering Provider Test Date Status BENITO MONTEJO 11/29/2023 09:39:28 Final Observation Date Value Abnormality Reference (Units ) Status MYCODE SPECIMEN-SST 11/29/2023 09:39:28 Freezing of extracted DNA, whole blood and/or serum. Final Performing Location [facility] - [address] [place] [address]
--- OUTSIDE RECORDS SUMMARY | 2024-01-24 09:05 | External Medical Summary | Summary of Care ---
Author Name Unknown Organization [facility] Address [address] [facility] [place] [address] Phone [phone] Care Team Providers Care Storage Brine Worker Name Role Phone Miguel Suarez MD Primary Care Provider + Reason for Visit * Reason Comments Outpatient Testing Encounter Details Date Type Department Care Team (Late st Contact Info) Description 11/29/2023 10:10 AM EDT Laboratory Laboratory, [facility] [address] [phone] [facility] [address] [address] [address] [employer] Other*[id number]; Chronic kidney disease, unspecified CKD stage; Prediabetes; Dyslipidemia, goal LDL below 70 Allergies Active Allergy Reactions Criticality Noted Date Comments Atorvastatin 03/04/2018 Myalgia Fluticasone Furoate-Vilanterol 12/24/2021 Tightness in chest Rosuvastatin Calcium 03/04/2018 myalgia Iodinated Contrast Media Anaphylaxis,Itching High 04/26/2008 Contrast dye Other Allergy (See Comments) 04/24/2022 Product Containing 6-hpnxhnc-0-methylgl utaryl-coenzyme A Reductase Inhibitor (product) Simvastatin 03/04/2018 myalgia documented as of this encounter (statuses as of 11/29/2023) Medications Medication Sig Dispensed Refills Start Date [...] MG Sublingual Tablet Sublingual (Nitrostat)Indicati ons:Atherosclerosis of [place] coronary artery of [place] heart with other form of angina pectoris (HCC),Exertional angina (HCC),Coronary artery disease involving coronary bypass graft of q[place] heart with angina pectoris (HCC) PLACE 1 [...] the morning. 90 Patch 3 12/22/2022 Active Ranolazine ER 500 MG [...] 50 MCG/ACT Nasal Suspension (Flonase) Administer 1 [place] into nostril daily as needed. 0 Active Famotidine 20 MG Oral Tablet (Pepcid)Indications :Chronic nausea TAKE 1 TABLET BY MOUTH EVERY DAY IN THE MORNING AND BEFORE BEDTIME 180 Tablet 3 06/01/2023 Active Clopidogrel Bisulfate 75 MG Oral Tablet (pLAVix)Indications :Atherosclerosis of coronary artery of qagan [place] heart with stable angina pectoris, unspecified vessel [...] the morning. 90 Tablet 3 09/24/2023 Active Repatha SureClick 140 MG/ML Subcutaneous Solution Auto-injector (evolocumab) Inject 140 mg (1 pen) under the skin every 14 days. Remove from refrigerator 30 minutes prior to injection. 2 mL 11 09/24/2023 Active Sertraline HCl 100 MG Oral Tablet (Zoloft) TAKE 1 AND 1/2 TABLETS BY MOUTH DAILY 135 Tablet 3 10/13/2023 Active Terazosin HCl 2 MG Oral Capsule TAKE 1 CAPSULE BY MOUTH EVERYDAY AT BEDTIME 90 Capsule 3 10/13/2023 Active documented as of this encounter (statuses as of 11/29/2023) Active Problems Problem Noted Date Diagnosed Date [...] adult exam 04/12/2019 Overview: Daughter-Sherly. 03/31 inferior ID? Cath- no new lesions of CABG. 12/29 TTE [facility] similar. 11/28 new stent. TTE 45-49%. Mod wall motion abn. Mild AR. Mild dilated A root/ascend 10/28 6MWT ok. 10/27 UE EMG ok. 2017 colon 2mm polyp. Mak 5y 2013 colon CA Chronic major depressive disorder, recurrent epi sode 04/12/2019 Atherosclerosis of q[place] co ronary artery of qagan [place] heart with stable angina pectoris 07/06/2018 Lung nodules 05/28/2018 Splenomegaly 04/09/2018 History of colon cancer 04/08/2018 Statin intolerance 01/29/2018 Stable angina 02/01/2017 Coronary artery disease invo lving coronary bypass graft of q[place] heart with angina pectoris 09/14/2016 S/P angioplasty [...] as of this encounter (statuses as of 11/29/2023) Resolved Problems Problem Noted Date Diagnosed Date Resolved Date SBO (small bowel obstruction) 09/09/2023 09/09/2023 Overview: 04/23 admit. 11/21 [facility] improved w/NPO. Cont ETOH abuse Acute ST elevation myocardia l infarction (STEMI) 11/21/2022 11/26/2022 COPD, group A, by GOLD 2017 classification 11/20/2019 11/14/2021 Overview: Per COPD GOLD Classification COPD, mild 07/09/2018 11/23/2019 Overview: 2018 PFTs mild obstruction. Breo started--feels breathing is better. Thrombocytopenia 07/06/2018 10/25/2019 Exertional angina 10/22/2016 01/01/2017 Coronary atherosclerosis of qagan [place]agung[place] coronary artery 12/26/2013 03/22/2019 Colon cancer 10/06/2013 08/18/2017 Cancer Staging:Clinical:Stage IIIA(T1, N1, M0) - Signed by Aiden Beauchamp MD on 11/24/2013 Pathologic: Unsigned Overview: 09/29/13 S/p partial sigmoid colectomy-Dr Steiner. Pathologic stage pT1N1a. (metastatic adenocarcinoma 08/25 nodes, invading submucosa) Pre-op testing 09/13/2013 02/25/2017 Routine general medical exam ination at a health care facility 01/25/2013 05/30/2018 Overview: 03/26 CT chest [facility] 6mm nodule. Mak 6mo ordered. [...] 7-9th rib frx 04/01/10CT neck @[facility]-mild osteophytes 2007 colonoscopy-WNL. 08/14/03. Colonoscopy-The polyp at 45 cm showed moderate atypia. remote computer terminal operator current use of ant icoagulant therapy 12/24/2003 11/21/2012 Overview: ICD-10 update of inactive term BENIGN NEOPLASM LG BOWEL 08/31/2003 Calculus of kidney 08/18/2001 8 Coronary atherosclerosis Overview: S/p CABG x5 06/24/1993 VICTORIA-D1-LAD TERRY-RCA SVG-OM1 SVG-OM2 PURE HYPERCHOLESTEROLEM 07/09 Overview: Per Lipid Taxonomy. TIA (transient ischemic attack) 02/25/2017 documented as of this encounter (statuses as of 11/29/2023) Immunizations Name Administration Dates Next Due COVID-19 [...] Description 12/06/2023 9:30 AM EDT Laboratory Laboratory, [facility] [address] [phone] Gilson Morins [address] [place] [address] 12/10/2023 9:20 AM EDT Office Visit Family [facility] [address] [address] Adelia Pressley CRNP [address] [place] [address] 01/12/2024 12:00 PM EDT Office Visit [facility] [address] [place] [address] Miguel Suarez MD [address] [place] [address] 01/14/2024 2:30 PM EDT Hospital Encounter ENDO OSS[facility], Endoscopy Room [facility] [address] [place] [phone] Milvia Arnold MD [address] [place] [address] 01/14/2024 2:30 PM EDT - 01/14/2024 3:00 PM EDT Surgery ENDO O[facility], Endoscopy Room [facility] [address] [place] [phone] Milvia Arnold MD [address] [place] [address] COLONOSCOPY FLEXIBLE PROXIMAL DIAGNOSTIC 05/04/2024 9:30 AM EDT Office Visit Cardiology, [facility] [address] [place] [address] Vivienne Sunshine CRNP [address] [place] [address] 07/21/2024 10:00 AM EST Nurse Only Ancillary [facility] [address] [place] [address] [facility], Nurse Annual Wellness [facility] [address] [place] [address] Pending Results Name Type Priority Associated Diagnoses Date /Time MYCODE SUBSEQUENT ADULT Lab Routine MyCode Research Other*[id number] 11/29/2023 9:39 AM EDT PHOSPHORUS Lab Routine Chronic kidney disease, unspecified CKD stage 11/29/2023 9:39 AM EDT HEMOGLOBIN A1C Lab Routine Prediabetes 11/29/2023 9:39 AM EDT LIPID PANEL WITH DIRECT LDL IF TG IS HIGH Lab Routine Dyslipidemia, goal LDL below 70 11/29/2023 9:39 AM EDT MYCODE SST1 Lab Routine MyCode Research Other*[id number] 11/29/2023 9:39 AM EDT MYCODE SST2 Lab Routine [employer] Other*[id number] 11/29/2023 9:39 AM EDT Scheduled Procedures Name Priority Associated Diagnoses Date/Ti me COLONOSCOPY FLEXIBLE PROXIMAL DIAGNOSTIC History of colon polyps History of colon cancer 01/14/2024 2:30 PM EDT Health Maintenance Due Date Last Done Comments CKD PHOS USE SMARTSET 31426 1968 COLONOSCOPY-EVERY 5 YRS AGES 18-100 10/20/2022 10/20/2017, 10/20/2017, 10/01/2014, Additional history exists COVID-19 Vaccine ( season) 2023 07/21/2021, 07/21/2021, 10/16/2020, Additional history exists HbA1c 11/22/2023 11/21/2022, 10/07, 05/20/2021, Additional history exists Albumin/Creatinine Ratio 01/22/2024 023, 10/20/2013, 04/13/2012, Additional history exists GFR 03/06/2024 09/06/2023, 05/10, 04/08/2023, Additional history exists CKD HGB USE SMARTSET 44530 05/28/202405/28, 05/28/2023, 11/26/2022, Additional history exists DTaP,Tdap,and Td Vaccines (5 [...] this encounter Medical Devices Implanted Type Area Reprographics Associate Device Identifier Shelf Expiration Date Model / Serial / Lot Stent Bushra Xd Mr [id number] - [id number] Implanted:Qty: 1 on 11/24/2022 by Johnny Schofield MD at [facility] [employer] [place] [id number] 10/13/2023 [id number] 250 / / [id number] Stent Bushra Xd Mr [id number] - [id number] Implanted:Qty: 1 on 11/24/2022 by Johnny Schofield MD at [facility] [employer] [place] [id number] 07/24/2023 [id number] 220 / / [id number] documented as of this encounter Visit Diagnoses Diagnosis MyCode Research Other*[id number] Chronic kidney disease, unspecified CKD stage Prediabetes Other abnormal glucose Dyslipidemia, goal LDL below 70 Other and [...] the patient have Health Care Power of Swage Toolsetter? No Care Teams Storage Brine Worker Relationship Specialty Start Date End Date Miguel Suarez MD [address] [facility] [place] [address] PCP - General Family Medicine 07/25/14 documented as of this encounter
--- OUTSIDE RECORDS SUMMARY | 2024-01-24 09:05 | External Medical Summary | Summary of Care ---
Author Name Unknown Organization [facility] Address [address] [address] Phone [phone] Care Team Providers Care Metal Hanging Helper Name Role Phone Miguel Maki MD Primary Care Provider + Reason for Visit * Reason Comments eRx-Medication Refill Encounter Details Date Type Department Care Team (Late st Contact Info) Description 10/12/2023 Refill Family Practice [facility] [address] [place] [address] Miguel Maki MD [address] [place] [address] Allergies Active Allergy Reactions Criticality Noted Date Comments Atorvastatin 03/04/2018 Myalgia Fluticasone Furoate-Vilanterol 12/24/2021 Tightness in chest Rosuvastatin Calcium 03/04/2018 myalgia Iodinated Contrast Media Anaphylaxis,Itching High 04/26/2008 Contrast dye Other Allergy (See Comments) 04/24/2022 Product Containing 9-exbwckc-7-methylgl utaryl-coenzyme A Reductase Inhibitor (product) Simvastatin 03/04/2018 myalgia documented as of this encounter (statuses as of 10/13/2023) Medications Medication Sig Dispensed Refills Start Date [...] Sublingual Tablet Sublingual (Nitrostat)Indica tions:Atheroscler osis of [place] coronary artery of [place] heart with other form of angina pectoris (HCC),Exertional angina,Coronary artery disease involving coronary bypass graft of [place] heart with angina pectoris (HCC) PLACE 1 [...] the morning. 90 Patch 3 3 Active Ranolazine ER 500 MG [...] 50 MCG/ACT Nasal Suspension (Flonase) Administer 1 [place] into nostril daily as needed. 0 Active Famotidine 20 MG Oral Tablet (Pepcid)Indicatio ns:Chronic nausea TAKE 1 TABLET BY MOUTH EVERY DAY IN THE MORNING AND BEFORE BEDTIME 180 Tablet 3 3 Active Clopidogrel Bisulfate 75 MG Oral Tablet (pLAVix)Indicatio ns:Atherosclerosi s of coronary artery of big [place] heart with stable angina pectoris, unspecified vessel or lesion type (HCC),Cerebrovasc ular disease, arteriosclerotic, post-stroke TAKE 1 TABLET BY MOUTH EVERY DAY 90 Tablet 3 3 Active Pantoprazole Sodium 40 MG Oral Tablet Delayed Release (Protonix) TAKE 1 TABLET BY MOUTH EVERY DAY IN THE MORNING AND AT BEDTIME 180 Tablet 0 4 Active Metoprolol Succinate ER 25 MG Oral Tablet Extended Release 24 Hour (toPROL XL) Take 1 Tablet by mouth in the morning. 90 Tablet 3 4 Active Repatha SureClick 140 MG/ML Subcutaneous Solution Auto-injector (evolocumab) Inject 140 mg (1 pen) under the skin every 14 days. Remove from refrigerator 30 minutes prior to injection. 2 mL 11 4 Active Sertraline HCl 100 MG Oral Tablet (Zoloft) TAKE 1 AND 1/2 TABLETS BY MOUTH DAILY 135 Tablet 3 4 Active Terazosin HCl 2 MG Oral Capsule TAKE 1 CAPSULE BY MOUTH EVERYDAY AT BEDTIME 90 Capsule 3 4 Active Sertraline HCl 100 MG Oral Tablet (Zoloft) TAKE 1 & 1/2 TABLETS BY MOUTH DAILY 135 Tablet 3 3 10/13/19 24 Discontinued Terazosin HCl 2 MG Oral Capsule TAKE 1 CAPSULE BY MOUTH EVERYDAY AT BEDTIME 90 Capsule 3 3 10/13/19 24 Discontinued documented as of this encounter (statuses as of 10/13/2023) Active Problems Problem Noted Date Diagnosed Date [...] disorder, recurrent epi sode 04/12/2019 Atherosclerosis of [place] co ronary artery of big [place] heart with stable angina pectoris 07/06/2018 Lung nodules 05/28/2018 Splenomegaly 04/09/2018 History of colon cancer 04/08/2018 Statin intolerance 01/29/2018 Stable angina 02/01/2017 Coronary artery disease invo lving coronary bypass graft of [place] heart with angina pectoris 09/14/2016 S/P angioplasty [...] as of this encounter (statuses as of 10/13/2023) Resolved Problems Problem Noted Date Diagnosed Date Resolved Date SBO (small bowel obstruction) 09/09/2023 09/09/2023 Overview: 04/23 admit. 11/21 [facility] improved w/NPO. Cont ETOH abuse Acute ST elevation myocardia l infarction (STEMI) 11/21/2022 11/26/2022 COPD, group A, by GOLD 2017 classification 11/20/2019 11/14/2021 Overview: Per COPD GOLD Classification COPD, mild 07/09/2018 11/23/2019 Overview: 2018 PFTs mild obstruction. Breo started--feels breathing is better. Thrombocytopenia 07/06/2018 10/25/2019 Exertional angina 10/22/2016 01/01/2017 Coronary atherosclerosis of [place] coronary artery 12/26/2013 03/22/2019 Colon cancer 10/06/2013 08/18/2017 Cancer Staging:Clinical:Stage IIIA(T1, N1, M0) - Signed by Aiden Beauchamp MD on 11/24/2013 Pathologic: Unsigned Overview: 09/29/13 S/p partial sigmoid colectomy-Dr Steiner. Pathologic stage pT1N1a. (metastatic adenocarcinoma 08/25 nodes, invading submucosa) Pre-op testing 09/13/2013 02/25/2017 Routine general medical exam ination at a health care facility 01/25/2013 05/30/2018 Overview: 03/26 CT chest [facility] 6mm nodule. Mak 6mo ordered. [...] Rib Xray-Right 7-9th rib frx 04/01/10CT neck @[facility]-mild osteophytes 2007 colonoscopy-WNL. 08/14/03. Colonoscopy-The polyp at [...] as of this encounter (statuses as of 10/13/2023) Immunizations Name Administration Dates Next Due COVID-19 [...] encounter Miscellaneous Notes * Telephone Encounter - Mary Tripathi [facility] - 10/13/2023 10:56 AM ESTSigned Prescriptions: Disp Refills Sertraline HCl 100 MG Oral Tablet (Zoloft) 135 Ta*3 Sig: TAKE 1 AND 1/2 TABLETS BY MOUTH DAILYAuthorizing Provider: MIGUEL MAKI User: MARY HOPE Terazosin HCl 2 MG Oral Capsule 90 Cap*3 Sig: TAKE 1 CAPSULE BY MOUTH EVERYDAY AT BEDTIMEAuthorizing Provider: MIGUEL MAKI User: MARY HOPE documented in this encounter Plan of Treatment Upcoming Encounters Date Type Department Care Team (Latest Contact Info) Description 11/10/2023 11:00 AM EDT Office Visit Cardiology, [facility] [address] [place] [address] Vivienne Sunshine CRNP [address] [place] [address] 12/06/2023 9:30 AM EDT Laboratory Laboratory, [facility] [address] [place] [address] [facility] [address] [place] [address] 12/10/2023 9:20 AM EDT Office Visit Family [facility] [address] [place] [address] Adelia Pressley CRNP [address] [place] [address] 01/12/2024 12:00 PM EDT Office Visit [facility] [address] [place] [address] Miguel Maki MD [address] [place] [address] 01/14/2024 2:30 PM EDT Hospital Encounter ENDO [facility], Endoscopy Room [facility] [address] [place] [address] Milvia Arnold MD [address] [place] [address] 01/14/2024 2:30 PM EDT - 01/14/2024 3:00 PM EDT Surgery ENDO [facility], Endoscopy Room [facility] [address] [place] [phone] Milvia Arnold MD [address] [place] [address] COLONOSCOPY FLEXIBLE PROXIMAL DIAGNOSTIC 07/21/2024 10:00 AM EST Nurse Only Ancillary [facility] [address] [place] [address] [facility], Nurse Annual Wellness [facility] [address] [place] [address] Scheduled Procedures Name Priority Associated Diagnoses Date/Ti me COLONOSCOPY FLEXIBLE PROXIMAL DIAGNOSTIC History of colon polyps History of colon cancer 01/14/2024 2:30 PM EDT Health Maintenance Due Date Last Done Comments CKD PHOS USE SMARTSET 60329 1968 COLONOSCOPY-EVERY 5 YRS AGES 18-100 10/20/2022 10/20/2017, 10/20/2017, 10/01/2014, Additional history exists COVID-19 Vaccine ( season) 2023 07/21/2021, 07/21/2021, 10/16/2020, Additional history exists HbA1c 11/22/2023 11/21/2022, 10/07, 05/20/2021, Additional history exists Albumin/Creatinine Ratio 01/22/2024 023, 10/20/2013, 04/13/2012, Additional history exists GFR 03/06/2024 09/06/2023, 05/10, 04/08/2023, Additional history exists CKD HGB USE SMARTSET 27534 05/28/202405/28, 05/28/2023, 11/26/2022, Additional history exists Depression Screening 07/20/2024 07/20/2023, 03/23/2018 (Declined) DTaP,Tdap,and Td Vaccines (5 - Td or [...] this encounter Medical Devices Implanted Type Area Importer Exporter Device Identifier Shelf Expiration Date Model / Serial / Lot Stent Synergy Xd Mr [id number] - [id number] Implanted:Qty: 1 on 11/24/2022 by [place] Schofield [place] [facility] [employer] [id number] 10/13/2023 [id number] 250 / / [id number] Stent Synergy Xd Mr [id number] - [id number] Implanted:Qty: 1 on 11/24/2022 by Johnny Schofield MD at [facility] [employer] [id number] 07/24/2023 [id number] / / [id number] documented as of this encounter Advance Directives [...] the patient have Health Care Power of Cloth Mercerizer Back Tender? No Care Teams Metal Hanging Helper Relationship Specialty Start Date End Date Miguel Maki MD [address] [place] [address] PCP - General Family Medicine 07/25/14 documented as of this encounter
--- OUTSIDE RECORDS SUMMARY | 2024-01-24 09:05 | External Medical Summary | Summary of Care ---
Author Name Unknown Organization [facility] Address [address] [facility] [address] Phone [phone] Care Team Providers Care Project Finance Analyst Name Role Phone Miguel Suarez MD Primary Care Provider + Reason for Visit * Reason Comments eRx-Medication Refill Encounter Details Date Type Department Care Team (Late st Contact Info) Description 11/26/2023 Refill Cardiology, [facility] [address] [place] [address] Miguel Suarez MD [address] [place] [address] Allergies Active Allergy Reactions Criticality Noted Date Comments Atorvastatin 03/04/2018 Myalgia Fluticasone Furoate-Vilanterol 12/24/2021 Tightness in chest Rosuvastatin Calcium 03/04/2018 myalgia Iodinated Contrast Media Anaphylaxis,Itching High 04/26/2008 Contrast dye Other Allergy (See Comments) 04/24/2022 Product Containing 2-xwszbin-8-methylgl utaryl-coenzyme A Reductase Inhibitor (product) Simvastatin 03/04/2018 [...] Sublingual Tablet Sublingual (Nitrostat)Indica tions:Atheroscler osis of circle coronary artery of circle heart with other form of angina pectoris (HCC),Exertional angina (HCC),Coronary artery disease involving coronary bypass graft of circle heart with angina pectoris (HCC) PLACE 1 [...] 50 MCG/ACT Nasal Suspension (Flonase) Administer 1 [place] into nostril daily as needed. 0 Active Famotidine 20 MG Oral Tablet (Pepcid)Indicatio ns:Chronic nausea TAKE 1 TABLET BY MOUTH EVERY DAY IN THE MORNING AND BEFORE BEDTIME 180 Tablet 3 3 Active Clopidogrel Bisulfate 75 MG Oral Tablet (pLAVix)Indicatio ns:Atherosclerosi s of coronary artery of circle heart with stable angina pectoris, unspecified vessel [...] BEFORE BEDTIME 180 Tablet 3 4 Active Ranolazine ER 500 MG Oral Tablet Extended Release 12 Hour (Ranexa) Take 1 Tablet by mouth in the morning and 1 Tablet before bedtime. 180 Tablet 3 3 11/29/19 24 Discontinued documented as of this encounter [...] disorder, recurrent epi sode 04/12/2019 Atherosclerosis of circle co ronary artery of circle heart with stable angina pectoris 07/06/2018 Lung nodules 05/28/2018 Splenomegaly 04/09/2018 History of colon cancer 04/08/2018 Statin intolerance 01/29/2018 Stable angina 02/01/2017 Coronary artery disease invo lving coronary bypass graft of circle heart with angina pectoris 09/14/2016 S/P angioplasty [...] obstruction) 09/09/2023 09/09/2023 Overview: 04/23 admit. 11/21 [facility] improved w/NPO. Cont ETOH abuse Acute ST elevation myocardia l infarction (STEMI) 11/21/2022 11/26/2022 COPD, group A, by GOLD 2017 classification 11/20/2019 11/14/2021 Overview: Per COPD GOLD Classification COPD, mild 07/09/2018 11/23/2019 Overview: 2018 PFTs mild obstruction. Breo started--feels breathing is better. Thrombocytopenia 07/06/2018 10/25/2019 Exertional angina 10/22/2016 01/01/2017 Coronary atherosclerosis of circle coronary artery 12/26/2013 03/22/2019 Colon cancer 10/06/2013 [...] Rib Xray-Right 7-9th rib frx 04/01/10CT neck @[place]-mild osteophytes 2007 colonoscopy-WNL. 08/14/03. Colonoscopy-The polyp at 45 cm showed moderate atypia. alf current use of ant icoagulant therapy 12/24/2003 11/21/2012 Overview: ICD-10 update of inactive term BENIGN NEOPLASM LG BOWEL 08/31/2003 Calculus of kidney 08/18/2001 8 Coronary atherosclerosis Overview: S/p CABG x5 06/24/1993 VICTOIRA-D1-LAD TERRY-RCA SVG-OM1 SVG-OM2 PURE HYPERCHOLESTEROLEM 07/09 Overview: [...] Telephone Encounter - Vivienne Avendano CRNP - 11/29/2023 10:17 AM EDT Signed Prescriptions: Disp Refills Ranolazine ER 500 MG Oral Tablet Extended *180 Ta*3 Sig: TAKE 1 TABLET BY MOUTH IN THE MORNING AND BEFORE BEDTIME Authorizing Provider: VIVIENNE AVENDANO * Telephone Encounter - Kasie Santana CMA - 11/29/2023 8:36 AM EDTPending Prescriptions: Disp Refills Ranolazine ER 500 MG Oral Tablet Extended *180 Ta*3 Sig: TAKE 1 TABLET BY MOUTH IN THE MORNING AND BEFORE BEDTIME * Telephone Encounter - Kasie Santana CMA - 11/29/2023 8:35 AM EDT Did you pend patient's preferred pharmacy and medication before forwarding?yes Pharmacy: [id number] [address] [facility] Pending Prescriptions: Disp Refills Ranolazine ER 500 MG Oral Tablet Extended*180 Ta*3 Sig: TAKE 1 TABLET BY MOUTH IN THE MORNING AND BEFORE BEDTIME Last Visit: 11/10/2023 (in office), Visit date not found (telemedicine) Next Visit: 05/04/2024 If no future appointments scheduled, and last appointment is greater than a year ago, please schedule patient for a follow-up appointment Last date the medication was ordered: 12-22-2022 Is this request for a controlled substance?No Urine Drug Screen:No results found. However, due to the size of the patient record, not all encounters were searched. Please check Results Review for a complete set of results. Patient Phone Numbers Labs: Lab Results Component Value Date/Time CREAT 1.4 (H) 09/06/2023 10:41 AM CREAT 1.18 11/20/2022 12:00 AM CREAT 1.2 05/02/2020 10:43 AM POTASSIUM 4.7 09/06/2023 10:41 AM POTASSIUM 4.3 11/20/2022 12:00 AM POTASSIUM 4.3 05/02/2020 10:43 AM TSH 1.74 05/28/2023 11:48 AM TSH 1.54 10/24/2021 12:00 AM TSH 1.22 04/12/2019 03:58 PM LDLCALC 47 11/21/2022 04:37 AM LDLCALC 93 10/24/2021 12:00 AM LDLCALC 98 12/29/2019 10:07 AM LDLCALC 152. (H) 11/24/1996 08:00 AM LDLDIRECT NOT APPLICABLE 12/29/2019 10:07 AM LDLCHOL 125 (A) 04/13/2012 12:00 AM ALT 29 08/31/2022 08:53 AM ALT 24 12/29/2019 10:07 AM ALT 23 11/24/1996 08:00 AM HGBA1C 5.9 (H) 11/21/2022 04:37 AM HGBA1C 6.1 10/24/2021 12:00 AM HGBA1C 6.0 (H) 06/21/2019 11:22 AM documented in this encounter Plan of Treatment Upcoming Encounters Date Type Department Care Team (Latest Contact Info) Description 12/06/2023 9:30 AM EDT Laboratory Laboratory, [facility] [address] [place] [phone] [facility] [address] [place] [address] 12/10/2023 9:20 AM EDT Office Visit [facility] [address] [place] [address] Adelia Pressley CRNP [address] [place] [address] 01/12/2024 12:00 PM EDT Office Visit [facility] [address] [place] [address] Miguel Suarez MD [address] [place] [address] 01/14/2024 2:30 PM EDT Hospital Encounter [facility]O [facility], Endoscopy Room [facility] [address] [place] [phone] Milvia Arnold MD [address] [place] [address] 01/14/2024 2:30 PM EDT - 01/14/2024 3:00 PM EDT Surgery ENDO [facility], Endoscopy Room [facility] [address] [place] [phone] Milvia Arnold MD [address] [place] [address] COLONOSCOPY FLEXIBLE PROXIMAL DIAGNOSTIC 05/04/2024 9:30 AM EDT Office Visit Cardiology, [facility] [address] [place] [address] Vivienne Avendano CRNP [address] [place] [address] 07/21/2024 10:00 AM EST Nurse Only Ancillary [facility] [address] [place] [address] [facility], Nurse Annual Wellness [facility] [address] [place] [address] Scheduled Procedures Name Priority Associated Diagnoses Date/Ti me COLONOSCOPY FLEXIBLE PROXIMAL DIAGNOSTIC History of colon polyps History of colon cancer 01/14/2024 2:30 PM EDT Health Maintenance Due Date Last Done Comments CKD PHOS USE SMARTSET 30122 1968 COLONOSCOPY-EVERY 5 YRS AGES 18-100 10/20/2022 10/20/2017, 10/20/2017, 10/01/2014, Additional history exists COVID-19 Vaccine ( season) 2023 07/21/2021, 07/21/2021, 10/16/2020, Additional history exists HbA1c 11/22/2023 11/21/2022, 10/07, 05/20/2021, Additional history exists Albumin/Creatinine Ratio 01/22/2024 023, 10/20/2013, 04/13/2012, Additional history exists GFR 03/06/2024 09/06/2023, 05/10, 04/08/2023, Additional history exists CKD HGB USE SMARTSET 47299 05/28/202405/28, 05/28/2023, 11/26/2022, Additional history exists DTaP,Tdap,and [...] this encounter Medical Devices Implanted Type Area Data Network Architect Device Identifier Shelf Expiration Date Model / Serial / Lot Stent Synergy Xd Mr [id number] - [id number] Implanted:Qty: 1 on 11/24/2022 by Johnny Schofield MD at [facility] [employer] [id number] 10/13/2023 [id number] 250 / / [id number] Stent Synergy Xd Mr [id number] - [id number] Implanted:Qty: 1 on 11/24/2022 by Johnny Schofield MD at [facility] [employer] [id number] 07/24/2023 [id number] 220 / / [id number] documented as of this encounter Advance Directives [...] the patient have Health Care Power of Multiple Needle Stitcher? No Care Teams Project Finance Analyst Relationship Specialty Start Date End Date Miguel Suarez MD [address] [place] [address] PCP - General Family Medicine 07/25/14 documented as of this encounter
--- OUTSIDE RECORDS SUMMARY | 2024-01-24 09:05 | External Medical Summary ---
Author Name Unknown Address Unknown Organization K01:LABORATORY [facility] - [address] [facility] [place] [address] Laboratory Report Ordering Provider Test Date Status KESHIA KINNEYGUSTABO 11/29/2023 09:39:28 Final Observation Date Value Abnormality Reference (Units ) Status Triglyceride 11/29/2023 09:39:28 168 <=174 ( mg/dL) Final Triglyceride Reference Range s (mg/dL):
<150 Acceptable
150-174 Borderline high
175-499 High
>=500 Very high Cholesterol 11/29/2023 09:39:28 176 <200 (mg /dL) Final Total Cholesterol Reference Ranges (mg/dL):
<200 Desirable
200-239 Borderline high
>=240 High HDL 11/29/2023 09:39:28 54 >39 (mg/dL ) Final HDL Cholesterol Reference Ra nges (mg/dL):
>=60 High (Desirable)
<50 Low (Undesirable) For Females
<40 Low (Undesirable) For Males NON-HDL CHOLESTEROL 11/29/2023 09:39:28 122 <=159 (mg/dL) Final Non-HDL Cholesterol Referenc e Range (mg/dL):
<100 Target level for high risk ASCVD patient
<130 Optimal for general population
130-159 Near optimal for general population
160-189 Borderline High
190-219 High
>=220 Very High LDL, (calculated) 11/29/2023 09:39:28 88 <= 129 (mg/dL) Final LDL Cholesterol Reference Ra nges (mg/dL):
<70 Target level for high risk ASCVD patient
<100 Optimal for general population
100-129 Near optimal for general population
130-159 Borderline high
160-189 High
>=190 Very high Performing Location LABORATORY [facility] - [address] [place] [address]
--- OUTSIDE RECORDS SUMMARY | 2024-01-24 09:05 | External Medical Summary | Summary of Care ---
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 External - [facility] Cardiac Rehabilitation Modality No Preference, either is clinically appropriate Identify Cardiac Risk Low to Moderate Risk Comments [facility] Reason for Visit * Reason Onset Date Comments Information 11/22/2023 Encounter Details Date Type Department Care Team (Late st Contact Info) Description 11/22/2023 Telephone Cardiology, [facility] [address] [place] [address] Vivienne Sunshine CRNP [address] [place] [address] Information Allergies Active Allergy Reactions Criticality Noted Date Comments Atorvastatin 03/04/2018 Myalgia Fluticasone Furoate-Vilanterol 12/24/2021 Tightness in chest Rosuvastatin Calcium 03/04/2018 myalgia Iodinated Contrast Media Anaphylaxis,Itching High 04/26/2008 Contrast dye Other Allergy (See Comments) 04/24/2022 Product Containing 1-qjyoqdo-8-methylgl utaryl-coenzyme A Reductase Inhibitor (product) Simvastatin 03/04/2018 myalgia documented as of this encounter (statuses as of 11/25/2023) Medications Medication Sig Dispensed Refills Start Date [...] MG Sublingual Tablet Sublingual (Nitrostat)Indicati ons:Atherosclerosis of [place] coronary artery of [place] heart with other form of angina pectoris (HCC),Exertional angina (HCC),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 0 Active Famotidine 20 MG Oral Tablet (Pepcid)Indications :Chronic nausea TAKE 1 TABLET BY MOUTH EVERY DAY IN THE MORNING AND BEFORE BEDTIME 180 Tablet 3 06/01/2023 Active Clopidogrel Bisulfate 75 MG Oral Tablet (pLAVix)Indications :Atherosclerosis of coronary artery of [place] heart with stable angina pectoris, unspecified vessel [...] 30 minutes prior to injection. 2 mL 09/24/2023 Active Sertraline HCl 100 MG Oral Tablet (Zoloft) TAKE 1 AND 1/2 TABLETS BY MOUTH DAILY 135 Tablet 3 10/13/2023 Active Terazosin HCl 2 MG Oral Capsule TAKE 1 CAPSULE BY MOUTH EVERYDAY AT BEDTIME 90 Capsule 3 10/13/2023 Active documented as of this encounter (statuses as of 11/25/2023) Active Problems Problem Noted Date Diagnosed Date [...] adult exam 04/12/2019 Overview: Daughter-Sherly. 03/31 inferior TX? Cath- no new lesions of CABG. 12/29 TTE [facility] similar. 11/28 new stent. TTE 45-49%. Mod wall motion abn. Mild AR. Mild dilated A root/ascend 10/28 6MWT ok. 10/27 UE EMG ok. 2017 colon 2mm polyp. Mak 5y 2014 colon CA Chronic major depressive disorder, recurrent epi sode 04/12/2019 Atherosclerosis of [place] co ronary artery of [place] heart with stable angina pectoris 07/06/2018 Lung nodules 05/28/2018 Splenomegaly 04/09/2018 History of colon cancer 04/08/2018 Statin intolerance 01/29/2018 Stable angina 02/01/2017 Coronary artery disease invo lving coronary bypass graft of [place] heart with angina pectoris 09/14/2016 S/P angioplasty [...] as of this encounter (statuses as of 11/25/2023) Resolved Problems Problem Noted Date Diagnosed Date Resolved Date SBO (small bowel obstruction) 09/09/2023 09/09/2023 Overview: 04/23 admit. 11/21 [facility] improved w/NPO. Cont ETOH abuse Acute ST elevation myocardia l infarction (STEMI) 11/21/2022 11/26/2022 COPD, group A, by GOLD 2017 classification 11/20/2019 11/14/2021 Overview: Per COPD GOLD Classification COPD, mild 07/09/2018 11/23/2019 Overview: 2018 PFTs mild obstruction. Breo started--feels breathing is better. Thrombocytopenia 07/06/2018 10/25/2019 Exertional angina 10/22/2016 01/01/2017 Coronary atherosclerosis of [place] coronary artery 12/26/2013 03/22/2019 Colon cancer 10/06/2013 08/18/2017 Cancer Staging:Clinical:Stage IIIA(T1, N1, M0) - Signed by Aiden Beauchamp MD on 11/24/2013 Pathologic: Unsigned Overview: 2/21/14 S/p partial sigmoid colectomy-Dr Steiner. Pathologic stage pT1N1a. (metastatic adenocarcinoma 08/25 nodes, invading submucosa) Pre-op testing 09/13/2013 02/25/2017 Routine general medical exam ination at a health care facility 01/25/2013 05/30/2018 Overview: 03/26 CT chest [facility] 6mm nodule. Mak 6mo ordered. [...] 7-9th rib frx 04/01/10CT neck @[facility]-mild osteophytes 2007 colonoscopy-WNL. 08/14/03. Colonoscopy-The polyp at [...] as of this encounter (statuses as of 11/25/2023) Immunizations Name Administration Dates Next Due COVID-19 [...] Miscellaneous Notes * Telephone Encounter - Mary Kay Rivera LPN - 11/25/2023 12:08 PM EDT Sent to [facility] Cardiac rehab * Telephone Encounter - Vivienne Sunshine CRNP - 11/23/2023 1:08 PM EDT Order signed. Thank you! * Telephone Encounter - Mary Kay Rivera LPN - 11/22/2023 1:25 PM EDT [facility] cardiac rehab calling. Pt contacted them, interested in restarting cardiac rehab. Orders placed if appropriate, route back to nursing to send order, LMN and information. documented in this encounter Plan of Treatment Upcoming Encounters Date Type Department Care Team (Latest Contact Info) Description 12/06/2023 9:30 AM EDT Laboratory Laboratory, [facility] [address] [place] [phone] [facility] [address] [place] [address] 12/10/2023 9:20 AM EDT Office Visit [facility] [address] [place] [address] Adelia Pressley CRNP [address] [place] [address] 01/12/2024 12:00 PM EDT Office Visit [facility] [address] [place] [address] Miguel Suarez MD [address] [place] [address] 01/14/2024 2:30 PM EDT Hospital Encounter [facility]O [facility], Endoscopy Room [facility] [address] [place] [phone] Milvia Arnold MD [address] [place] [address] 01/14/2024 2:30 PM EDT - 01/14/2024 3:00 PM EDT Surgery ENDO [facility], Endoscopy Room [facility] [address] [place] [phone] Milvia Arnold MD [address] [place] [address] COLONOSCOPY FLEXIBLE PROXIMAL DIAGNOSTIC 05/04/2024 9:30 AM EDT Office Visit Cardiology, [facility] [address] [place] [address] Vivienne Sunshine CRNP [address] [place] [address] 07/21/2024 10:00 AM EST Nurse Only Ancillary [facility] [address] [facility] [place] [address] [facility], Nurse Annual Wellness [facility] [address] [place] [address] Scheduled Procedures Name Priority Associated Diagnoses Date/Ti me COLONOSCOPY FLEXIBLE PROXIMAL DIAGNOSTIC History of colon polyps History of colon cancer 01/14/2024 2:30 PM EDT Scheduled Referrals Name Type Priority Associated Diagnoses Orde r Schedule CARDIAC REHAB REFERRAL OP Referral Within 10 days (routine) 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) Hx of CABG HFrEF (heart failure with reduced ejection fraction) ([facility]) S/P angioplasty with stent Ordered: 11/23/2023 Health Maintenance Due Date Last Done Comments CKD PHOS USE SMARTSET 55113 1968 COLONOSCOPY-EVERY 5 YRS AGES 18-100 10/20/2022 10/20/2017, 10/20/2017, 10/01/2014, Additional history exists COVID-19 Vaccine ( season) 2023 07/21/2021, 07/21/2021, 10/16/2020, Additional history exists HbA1c 11/22/2023 11/21/2022, 10/07, 05/20/2021, Additional history exists Albumin/Creatinine Ratio 01/22/2024 023, 10/20/2013, 04/13/2012, Additional history exists GFR 03/06/2024 09/06/2023, 05/10, 04/08/2023, Additional history exists CKD HGB USE SMARTSET 29023 05/28/202405/28, 05/28/2023, 11/26/2022, Additional history exists DTaP,Tdap,and [...] this encounter Medical Devices Implanted Type Area Recreation Programmer Device Identifier Shelf Expiration Date Model / Serial / Lot Stent Synergy Xd Mr [id number] - [id number] Implanted:Qty: 1 on 11/24/2022 by Johnny Schofield MD at [facility] [employer] [id number] 10/13/2023 [id number] 250 / / [id number] Stent Synergy Xd Mr [id number] - [id number] Implanted:Qty: 1 on 11/24/2022 by Johnny Schofield MD at [facility] [employer] [id number] 07/24/2023 [id number] 220 / / [id number] documented as of this encounter Visit Diagnoses Diagnosis 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 No Care Teams Rod Cup Filler Relationship Specialty Start Date End Date Miguel Suarez MD [address] [place] [address] PCP - General Family Medicine 07/25/14 documented as of this encounter
--- OUTSIDE RECORDS SUMMARY | 2024-01-24 09:05 | External Medical Summary ---
Author Name Unknown Address Unknown Organization K01:LABORATORY [facility] - [address] [place] [address] Laboratory Report Ordering Provider Test Date Status GLYNN KINNEY 11/29/2023 09:39:28 Final Observation Date Value Abnormality Reference (Units ) Status Phosphate 11/29/2023 09:39:28 3.8 2.5-4.8 (m g/dL) Final Performing Location LABORATORY [facility] - [address] [place] [address]
--- OUTSIDE RECORDS SUMMARY | 2024-01-24 09:05 | External Medical Summary ---
Author Name Unknown Address Unknown Organization K01:[facility] [place] [address] [facility] [address] Laboratory Report Ordering Provider Test Date Status GLYNN KINNEY 11/29/2023 09:39:28 Final Observation Date Value Abnormality Reference (Units ) Status HbA1C 11/29/2023 09:39:28 5.4 4.0-5.6 (% ) Final The use of HbA1c to monitor glycemic status is based on normal hemoglobin and HbA composition. This test should not be used in patients with abnormal hemoglobin that affects the half life of the red blood cell or the in vivo glycation rates. Glucose, estimated average 11/29/2023 09:39:28 108 <126 (mg/dL) Final Performing Location [facility] [address] [facility] [address]
--- OUTSIDE RECORDS SUMMARY | 2024-01-24 09:05 | External Medical Summary | Summary of Care ---
Author Name Unknown Organization [facility] Address [address] [facility] [address] Phone [phone] Care Team Providers Care Loading Machine Operator Name Role Phone Miguel Suarez MD Primary Care Provider + Reason for Visit * Reason Comments Follow Up 7 week follow up due to medication changes. Dizziness ongoing when standing but has felt a little better overall. Angina intermittent and occasional its indigestion/acid reflux. Feeling age and out of condition. BP has been more stable. Also noticed vision has improved some. Encounter Details Date Type Department Care Team (Late st Contact Info) Description 11/10/2023 11:00 AM EDT Office Visit Cardiology, [facility] [address] [facility] [place] [address] Vivienne Sunshine CRNP [address] [facility] [address] Coronary artery disease involving coronary bypass graft of [place] heart with angina pectoris (HCC)*; Hx of CABG; Stable angina (HCC); Lightheadedness; Bradycardia; HTN, goal below 140/90; Dyslipidemia, goal LDL below 70; HFrEF (heart failure with reduced ejection fraction) ([facility]) Allergies Active Allergy Reactions Criticality Noted Date Comments Atorvastatin 03/04/2018 Myalgia Fluticasone Furoate-Vilanterol 12/24/2021 Tightness in chest Rosuvastatin Calcium 03/04/2018 myalgia Iodinated Contrast Media Anaphylaxis,Itching High 04/26/2008 Contrast dye Other Allergy (See Comments) 04/24/2022 Product Containing 7-drcuokq-6-methylgl utaryl-coenzyme A Reductase Inhibitor (product) Simvastatin 03/04/2018 myalgia documented as of this encounter (statuses as of 11/10/2023) Medications Medication Sig Dispensed Refills Start Date [...] MG Sublingual Tablet Sublingual (Nitrostat)Indicati ons:Atherosclerosis of p[place] coronary artery of [place] heart with other form of angina pectoris (HCC),Exertional angina (HCC),Coronary artery disease involving coronary bypass graft of [place] heart with angina pectoris (HCC) PLACE 1 [...] 50 MCG/ACT Nasal Suspension (Flonase) Administer 1 [place] into nostril daily as needed. 0 Active Famotidine 20 MG Oral Tablet (Pepcid)Indications :Chronic nausea TAKE 1 TABLET BY MOUTH EVERY DAY IN THE MORNING AND BEFORE BEDTIME 180 Tablet 3 06/01/2023 Active Clopidogrel Bisulfate 75 MG Oral Tablet (pLAVix)Indications :Atherosclerosis of coronary artery of [place] heart with stable angina pectoris, unspecified vessel [...] as of this encounter (statuses as of 11/10/2023) Active Problems Problem Noted Date Diagnosed Date [...] disorder, recurrent epi sode 04/12/2019 Atherosclerosis of [place] co ronary artery of [place] heart with stable angina pectoris 07/06/2018 Lung nodules 05/28/2018 Splenomegaly 04/09/2018 History of colon cancer 04/08/2018 Statin intolerance 01/29/2018 Stable angina 02/01/2017 Coronary artery disease invo lving coronary bypass graft of [place] heart with angina pectoris 09/14/2016 S/P angioplasty [...] as of this encounter (statuses as of 11/10/2023) Resolved Problems Problem Noted Date Diagnosed Date Resolved Date SBO (small bowel obstruction) 09/09/2023 09/09/2023 Overview: 04/23 admit. 11/21 [facility] improved w/NPO. Cont ETOH abuse Acute ST elevation myocardia l infarction (STEMI) 11/21/2022 11/26/2022 COPD, group A, by GOLD 2017 classification 11/20/2019 11/14/2021 Overview: Per COPD GOLD Classification COPD, mild 07/09/2018 11/23/2019 Overview: 2018 PFTs mild obstruction. Breo started--feels breathing is better. Thrombocytopenia 07/06/2018 10/25/2019 Exertional angina 10/22/2016 01/01/2017 Coronary atherosclerosis of [place] coronary artery 12/26/2013 03/22/2019 Colon cancer 10/06/2013 08/18/2017 Cancer Staging:Clinical:Stage IIIA(T1, N1, M0) - Signed by Aiden Beauchamp MD on 11/24/2013 Pathologic: Unsigned Overview: 09/29/13 S/p partial sigmoid colectomy-Dr Steiner. Pathologic stage pT1N1a. (metastatic adenocarcinoma 08/25 nodes, invading submucosa) Pre-op testing 09/13/2013 02/25/2017 Routine general medical exam ination at a health care facility 01/25/2013 05/30/2018 Overview: 03/26 CT chest [facility] 6mm nodule. Mak 6mo ordered. 11/24 stopped crestor-myalgias. 08/25 CONSIDER EGD? 10/24 colon-2mm polyp PATH tubular adenoma. Mak 5y Preconetmplative to cut back ETOH. Stable low plat/wbc. 05/24 periph smear done ok. Colonoscopy 09/[address] Sebastian-for Synvisc Needs HARRIET fall 08/22 25mm colon polyp--Path---cancer--resected. 01/19 prostate discussed-declined 11/29/12 RUQ US @ [facility]--possible fatty infiltrate 11/11/12 DEXA @[facility]-- T -1.0 hip 07/20 Rib Xray-Right 7-9th rib frx 04/01/10CT neck @[facility]-mild osteophytes 2007 colonoscopy-WNL. 08/14/03. Colonoscopy-The polyp at 45 cm showed moderate atypia. 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 TIA (transient ischemic attack) 02/25/2017 documented as of this encounter (statuses as of 11/10/2023) Immunizations Name Administration Dates Next Due COVID-19 [...] Sign Reading Time Taken Comments Blood Pressure 138/84 11/10/2023 10:55 AM EDT Pulse 60 11/10/2023 10:55 AM EDT Temperature - - Respiratory Rate 16 11/10/2023 10:55 AM EDT Oxygen Saturation - - Inhaled Oxygen Concentration - - Weight 94.2 kg (207 lb 12 oz) 11/10/2023 10:55 A M EDT Height - - Body Mass Index 31.82 09/09/2023 8:32 AM EST documented in this [...] as of this encounter Progress Notes * Vivienne Sunshine CRNP - 11/10/2023 11:00 AM EDT Images from the original note were not included. 11/10/2023 Cardiology Follow Up Primary Instructional Aide: Dr. Kaiser Cardiac Problems: CAD (S/P CABG x5 VICTORIA-D1-LAD, TERRY-distal RCA, SVG-OM1, SVG-OMII Gurjit 06/1993) History of complex coronary anatomy, PCI and stenting of an SVG to OM1 graft in September 2016, at time of repeat cardiac catheterization performed October,, stent was patent with diffuse nonobstructive disease elsewhere for which ongoing medical management was recommended Dyslipidemia with statin intolerance to simvastatin, atorvastatin, and rosuvastatin Hypertension Acute STEMI 11/20/22 with cath revealing 90% stenosis of the VICTORIA to LAD anastomosis flown to [facility] for further intervention. Other severe p[place]burg vessel disease and 2 occluded vein grafts. On 11/24/22 patient received PRESTON to the VICTORIA- LAD anastomosis into the mid LAD with excellent results. HFrEF with recent acute CHF exacerbation requiring hospitalization at [facility] December 2022. LVEF 45% Intermittent LBBB HPI: Curtis Jamil is a 73 year old male presents for close cardiology follow up. Last seen in our office by Jil Farris PA-C on 09/24/2023. At that time he reported recurrent lightheadedness and hypotension. Due to this, he stopped cardiac rehab. Also endorsed frequent chest pain with exertion, will take a SL NTG if it gets really bad which helps. His most recent cath demonstrates multivessel disease with 2 occluded bypass graphs, medication management only. His Amlodipine was discontinued due to hypotension and his Metoprolol was reduced due to bradycardia, patient presents today feeling better today. He states that since stopping the Amlodipine and reducing the metoprolol that his dizziness has improved, but not gone. He states that his vision has improved. Dizziness only occurs with sudden position changes. Home BP recordings have been 120-140 systolic. Reading today is at target. He states he has taking 1-2 SL NTG per a week, only with exertion. He is currently taking Ranolazine 500mg BID. Reports compliance on all medication therapies with no untoward effects. He also express interest in wanting to re-attempt cardiac rehab at [facility]. REVIEW OF SYSTEMS: See HPI for pertinent [...] myalgia Other Allergy (See Comments) Product Containing 6-jayffvn-5-methylglutaryl-coenzyme A Reductase Inhibitor (product) Simvastatin myalgia Current [...] DOSES IN 15 MINUTES 25 Tablet 1 Aspirin 81 MG Oral Tablet Chewable Chew & swallow 1 Tablet by mouth in the morning. 34 Tablet 11 Nitroglycerin 0.6 MG/HR Transdermal Patch 24 Hour (Nitro-Dur) Place 1 Patch over 12 hours topicallyon the skin in the morning. 90 Patch 3 Ranolazine ER 500 MG Oral Tablet [...] 50 MCG/ACT Nasal Suspension (Flonase) Administer 1 [place] into nostril daily as needed. Famotidine 20 MG Oral Tablet (Pepcid) TAKE 1 TABLET BY MOUTH EVERY DAY IN THE MORNING AND BEFORE BEDTIME 180 Tablet 3 Clopidogrel Bisulfate 75 MG Oral Tablet (pLAVix) TAKE 1 TABLET BY MOUTH EVERY DAY 90 Tablet 3 Pantoprazole Sodium 40 MG Oral Tablet Delayed Release (Protonix) TAKE 1 TABLET BY MOUTH EVERY DAY IN THE MORNING AND AT BEDTIME 180 Tablet 0 Metoprolol Succinate ER 25 MG Oral Tablet Extended Release 24 Hour (toPROL XL) Take 1 Tablet by mouth in the morning. 90 Tablet 3 Repatha SureClick 140 MG/ML Subcutaneous Solution Auto-injector (evolocumab) Inject 140 mg (1 pen) under the skin every 14 days. Remove from refrigerator 30 minutes prior to injection. 2 mL 11 Sertraline HCl 100 MG Oral Tablet (Zoloft) TAKE 1 AND 1/2 TABLETS BY MOUTH DAILY 135 Tablet 3 Terazosin HCl 2 MG Oral Capsule TAKE 1 CAPSULE BY MOUTH EVERYDAY AT BEDTIME 90 Capsule 3 oxygen GAS 2 LPM bled through NC during hours of sleep (Patient not taking: Reported on 09/24/2023) 1 Each 0 No current facility-administered medications [...] 09/11/2016 SBO (small bowel obstruction) (HCC) 11/21 [facility] improved w/NPO SBO (small bowel obstruction) (HCC) 04/23 admit. 11/21 [facility] improved w/NPO. Cont ETOH abuse TIA (transient ischemic attack) 1979 MIB-qtkdwec-eyh on coumadin x30y Family History Problem Relation Age of Onset Cancer Father esophageal Heart disease Father Heart Disorder Mother CHF, 92 . Other (diverticulitis) Mother Other (denies fh skin disorder) Mother no family hx Prostate Glaucoma Sister local. 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 2grandkid daughter -Sharon, son-Jamey sharif 2 grandsons . has friend. 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 [employer] Social Determinants of Health Food Insecurity: No Food Insecurity (04/08/2023) Hunger Vital Sign Worried About Running Out of Food in the Last Year: Never true Ran Out of Food in the Last Year: Never true OBJECTIVE/PHYSICAL EXAMINATION: BP 138/84 | Pulse 60 | Resp 16 | Wt 94.2 kg (207 lb 12 oz) | BMI 31.82 kg/m | BSA 2.12 m General: No acute distress. A+Ox3. HEENT: [...] DATA Labs & Imaging Reviewed Below: EKG 09/24/2023 Sinus bradycardia with 1st degree AV block, 50 bpm, T wave abnormalities Echocardiogram report reviewed dated December 16, 2022 at [facility]: Cardiac catheterization report reviewed dated November 24, 2022: * Distal VICTORIA-LAD anastomosis has 90% stenosis into the mid LAD S/P successful PCI with 2.5 x 20 mmSynergy PRESTON which was post dilated with 2.75 NC balloon. Final angiogram showed excellent result with 0% residual stenosis, a good step- up and step-down, BRIAN III flow and no evidence of dissection or perforation Echo report reviewed dated November 2022: Interpretation [...] are mildly enlarged. Cath report reviewed from [facility] dated November 20, 2022: Summary: 1. Severe chronic [place] coronary artery disease -100% ostial LAD occlusion - 100% ostial circumflex occlusion - 100% proximal RCA occlusion 2. Occluded SVG to OM1, SVG to OM 2 (SVG to OM 2 likely subacute). 3. VICTORIA Y graft to LAD, diagonal widely patent. 90% stenosis at anastomosis of LAD, 95% at anastomosis of diagonal. 4. TERRY to PDA widely patent 5. Elevated intracardiac filling pressure. ASSESSMENT/PLAN: 73 year old year old male 1. Coronary artery disease involving coronary bypass graft of [place] heart with angina pectoris (HCC) 2. Hx of CABG 3. Stable angina (HCC) - EKG COMPLETE (TRACING AND INTERP) -EKG obtained today demonstrates SB with 1st degree AV block. Prior inferior infarct and ST abnormality noted previously. -Patient to continue with current medications including Plavix, ASA 81mg, Toprol xl, Nitro-dur Patch, Ranexa, Repatha, Entresto -Patient is not to restart Amlodipine, did discuss his current SL NTG use and if he starts to use more than 3 x per a week or no resolution with only one tablet, he is to notify us and we can discussmaximizing his dose of Ranexa. -would like to resume cardiac rehab which I feel would benefit the patient. Will send new referral if needed. Patient is to contact [facility] to reschedule 4. Lightheadedness -No acute changes on EKG -Reports near resolution since reducing beta jeffery dosing and discontinuing Amlodipine - EKG COMPLETE (TRACING AND INTERP) 5. Bradycardia - EKG COMPLETE (TRACING AND INTERP) 6. HTN, goal below 140/90 -At target. -Continue Toprol xl, Nitro-Dur patch, Entresto, furosemide and Terazosin. 7. Dyslipidemia, goal LDL below 70 -Recently switched to Repatha due to insurance issues. Does endorse myalgias and questions if this could be related. Encouraged to continue for at least one more month and if no better will discuss potential switch. 8. HFrEF (heart failure with reduced ejection fraction) (HCC) -Euvolemic on exam. -Encouraged to continue with current furosemide regimen. DISPOSITION: Follow up 6 months or if symptoms worsen/fail to improve. All questions were answered to the patients satisfaction. Patient advised to report to ED with any and all emergencies. The patient agrees to the above plan and will call with additional questions or concerns. [facility], [address] [address] I spent a total of 40 minutes on the date of service in preparation, delivery, and documentation ofthe care provided to Curtis Jamil excluding any time spent in the performance of separately billed services. This chart was completed in part utilizing [employer] Speech Voice Recognition Software. Grammatical errors, random word insertions, pronoun errors, and incomplete sentences are an occasional consequence of this system due to software limitations, ambient noise, and hardware issues. Any formal questions or concerns about the content, text, or information contained within the body of this dictation should be directly addressed to the provider for clarification. documented in this encounter Procedure Notes * Tha Lopez MD - 11/10/2023 10:57 AM EDTAssociated Order(s): EKG COMPLETE (TRACING AND INTERP) REASON FOR STUDY: to reassess recent bradycardia, had medicat CONCLUSIONS: Sinus bradycardia with 1st degree AV block Inferior infarct (cited on or before 24-Sep-2023) ST & T wave abnormality, consider lateral ischemia Abnormal ECG When compared with ECG of 24-Sep-2023 10:34, No significant change was found Ventricular Rate: 56 Atrial Rate: 56 ND Interval: 248 QRS Duration: 114 QT/QTc: 420/405 ms P-R-T [place]: 47 : 23 : 158 degrees documented in this encounter Nursing Notes * Raad Paul LPN - 11/10/2023 10:55 AM EDT Patient identified by full name and date of Chief Complaint Patient presents with Follow Up 7 week follow up due to medication changes. Dizziness ongoing when standing but has felt a little better overall. Angina intermittent and occasional its indigestion/acid reflux. Feeling age and out of condition. BP has been more stable. Also noticed vision has improved some. Examination Room: 6 Name: Curtis Jamil Date of : (1950). Reason for Visit: 7 week follow up Interim Hospitalization(s): Denies Problems/Concerns: See chief complaint Chest Pain/SOB: See chief complaint [facility] Discussed: Not applicable [facility] a way you can [...] Description 12/06/2023 9:30 AM EDT Laboratory Laboratory, [facility] [address] [place] [address] [facility] [address] [place] [address] 12/10/2023 9:20 AM EDT Office Visit [facility] [address] [place] [address] Adelia Pressley CRNP [address] [place] [address] 01/12/2024 12:00 PM EDT Office Visit [facility] [address] [place] [address] Miguel Suarez MD [address] [place] [address] 01/14/2024 2:30 PM EDT Hospital Encounter ENDO [facility], Endoscopy Room [facility] [address] [place] [address] Milvia Arnold MD [address] [place] [address] 01/14/2024 2:30 PM EDT - 01/14/2024 3:00 PM EDT Surgery ENDO O[facility], Endoscopy Room [facility] [address] [place] [address] Milvia Arnold MD [address] [place] [address] COLONOSCOPY FLEXIBLE PROXIMAL DIAGNOSTIC 05/04/2024 9:30 AM EDT Office Visit Cardiology, [facility] [address] [facility] [place] [address] Vivienne Sunshine CRNP [address] [facility] [place] [address] 07/21/2024 10:00 AM EST Nurse Only Ancillary [facility] [address] [facility] [place] [address] [facility], Nurse Annual Wellness [facility] [address] [facility] [place] [address] Scheduled Procedures Name Priority Associated Diagnoses Date/Ti me COLONOSCOPY FLEXIBLE PROXIMAL DIAGNOSTIC History of colon polyps History of colon cancer 01/14/2024 2:30 PM EDT Health Maintenance Due Date Last Done Comments CKD PHOS USE SMARTSET 17652 1968 COLONOSCOPY-EVERY 5 YRS AGES 18-100 10/20/2022 10/20/2017, 10/20/2017, 10/01/2014, Additional history exists COVID-19 Vaccine ( season) 2023 07/21/2021, 07/21/2021, 10/16/2020, Additional history exists HbA1c 11/22/2023 11/21/2022, 10/07, 05/20/2021, Additional history exists Albumin/Creatinine Ratio 01/22/2024 023, 10/20/2013, 04/13/2012, Additional history exists GFR 03/06/2024 09/06/2023, 05/10, 04/08/2023, Additional history exists CKD HGB USE SMARTSET 41388 05/28/202405/28, 05/28/2023, 11/26/2022, Additional history exists Depression [...] this encounter Medical Devices Implanted Type Area Radiological Technician Device Identifier Shelf Expiration Date Model / Serial / Lot Stent Synergy Xd Mr [id number] - [id number] Implanted:Qty: 1 on 11/24/2022 by Johnny Schofield MD at [facility] [employer] [id number] 10/13/2023 [id number] 250 / / [id number] Stent Synergy Xd Mr [id number] - [id number] Implanted:Qty: 1 on 11/24/2022 by Johnny Schofield MD at [facility] [employer] [id number] 07/24/2023 [id number] 220 / / [id number] documented as of this encounter Procedures Procedure Name Priority Date/Time Associated Diagnosis Comments ND ECG ROUTINE ECG W/LEAST 12 LDS W/I&R Routine 11/10/2023 10:57 AM EDT Coronary artery disease involving coronary bypass graft of [place] heart with angina pectoris (HCC) Lightheadedness Bradycardia documented in this encounter Results * EKG COMPLETE (TRACING AND INTERP) (11/10/2023 10:57 AM EDT) 11/10/2023 10:5 7 AM EDT Narrative Procedure Note Tha Lopez MD - 11/10/2023 10:57 AM EDT REASON FOR STUDY: to reassess recent bradycardia, had medicat CONCLUSIONS: Sinus bradycardia with 1st degree AV block Inferior infarct (cited on or before 24-Sep-2023) ST & T wave abnormality, consider lateral ischemia Abnormal ECG When compared with ECG of 24-Sep-2023 10:34, No significant change was found Ventricular Rate: 56 Atrial Rate: 56 ND Interval: 248 QRS Duration: 114 QT/QTc: 420/405 ms P-R-T [place]: 47 : 23 : 158 degrees Vivienne IZQUIERDO EKG [facility] documented in this encounter Visit Diagnoses Diagnosis Coronary artery disease involving coronary bypass graft of [place] heart with angina pectoris (HCC)- Primary Hx of CABG Postsurgical aortocoronary bypass status Stable angina (HCC) Other and unspecified angina pectoris Lightheadedness Dizziness and giddiness Bradycardia Other specified cardiac dysrhythmias HTN, goal below 140/90 Unspecified essential hypertension [...] the patient have Health Care Power of Home Care Specialist? No Care Teams Loading Machine Operator Relationship Specialty Start Date End Date Miguel Suarez MD [address] [place] [address] PCP - General Family Medicine 07/25/14 documented as of this encounter
--- OUTSIDE RECORDS SUMMARY | 2024-01-24 09:05 | External Medical Summary ---
Author Name Unknown Address Unknown Organization [id number]:[facility] [place] [address] [place] [address] Laboratory Report Ordering Provider Test Date Status BENITO MONTEJO 11/29/2023 09:39:28 Final Observation Date Value Abnormality Reference (Units ) Status MYCODE SPECIMEN-SST 11/29/2023 09:39:28 Freezing of extracted DNA, whole blood and/or serum. Final Performing Location [facility] - [address] [place] [address]
--- OUTSIDE RECORDS SUMMARY | 2024-01-24 09:06 | External Medical Summary | Summary of Care ---
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)*; Hx of CABG; Lightheadedness; HFrEF (heart failure with reduced ejection fraction) (HCC); HTN, goal below 140/80; Dyslipidemia, goal LDL below 70 Allergies Active Allergy Reactions Criticality Noted Date Comments Atorvastatin 03/04/2018 Myalgia Fluticasone Furoate-Vilanterol 12/24/2021 Tightness in chest Rosuvastatin Calcium 03/04/2018 myalgia Iodinated Contrast Media Anaphylaxis,Itching High 04/26/2008 Contrast dye Other Allergy (See Comments) 04/24/2022 Product Containing 5-ryhkknj-1-methylgl utaryl-coenzyme A Reductase Inhibitor (product) Simvastatin 03/04/2018 myalgia documented as of this encounter (statuses as of 09/27/2023) Medications Medication Sig Dispensed Refills Start Date [...] Sublingual Tablet Sublingual (Nitrostat)Indic ations:Atheroscl erosis of samish coronary artery of samish heart with other form of angina pectoris (HCC),Exertional angina,Coronary artery disease involving coronary bypass graft of samish heart with angina pectoris (HCC) PLACE 1 [...] 50 MCG/ACT Nasal Suspension (Flonase) Administer 1 [place] into nostril daily as needed. 0 Active Famotidine 20 MG Oral Tablet (Pepcid)Indicati ons:Chronic nausea TAKE 1 TABLET BY MOUTH EVERY DAY IN THE MORNING AND BEFORE BEDTIME 180 Tablet 3 3 Active Clopidogrel Bisulfate 75 MG Oral Tablet (pLAVix)Indicati ons:Atherosclero sis of coronary artery of samish heart with stable angina pectoris, unspecified vessel [...] to injection. 2 mL 11 4 Active Metoprolol Succinate ER 50 MG Oral Tablet Extended Release 24 Hour (toPROL XL) Take 1 Tablet by mouth in the morning. 90 Tablet 3 3 09/24/19 24 Discontinued(Me dication/Dose Changed) Alirocumab 150 MG/ML Subcutaneous Solution Auto-injector Inject 150 mg under the skin every 14 days. 6 mL 3 3 09/24/19 24 Discontinued Terazosin HCl 5 MG Oral Capsule (Hytrin) Take 1 Capsule by mouth at bedtime for 14 days. 14 Capsule 0 4 09/24/19 24 Discontinued amLODIPine Besylate 2.5 MG Oral Tablet (Norvasc)Indicat ions:Coronary artery disease involving coronary bypass graft of samish heart with angina pectoris (HCC),Hx of CABG,Stable angina,HTN, goal below 140/90 Take 1 Tablet by mouth in the morning. 90 Tablet 3 4 09/24/19 24 Discontinued documented as of this encounter (statuses as of 09/27/2023) Active Problems Problem Noted Date Diagnosed Date [...] adult exam 04/12/2019 Overview: Daughter-Sherly. 03/31 [facility]? Cath- no new lesions of CABG. 12/29 TTE [facility] similar. 11/28 new stent. TTE 45-49%. Mod wall motion abn. Mild AR. Mild dilated A root/ascend 10/28 6MWT ok. 10/27 UE EMG ok. 2017 colon 2mm polyp. Mak 5y 2014 colon CA Chronic major depressive disorder, recurrent epi sode 04/12/2019 Atherosclerosis of samish co ronary artery of samish heart with stable angina pectoris 07/06/2018 Lung nodules 05/28/2018 Splenomegaly 04/09/2018 History of colon cancer 04/08/2018 Statin intolerance 01/29/2018 Stable angina 02/01/2017 Coronary artery disease invo lving coronary bypass graft of samish heart with angina pectoris 09/14/2016 S/P angioplasty [...] as of this encounter (statuses as of 09/27/2023) Resolved Problems Problem Noted Date Diagnosed Date Resolved Date SBO (small bowel obstruction) 09/09/2023 09/09/2023 Overview: 04/23 admit. 11/21 [facility] improved w/NPO. Cont ETOH abuse Acute ST elevation myocardia l infarction (STEMI) 11/21/2022 11/26/2022 COPD, group A, by GOLD 2017 classification 11/20/2019 11/14/2021 Overview: Per COPD GOLD Classification COPD, mild 07/09/2018 11/23/2019 Overview: 2018 PFTs mild obstruction. Breo started--feels breathing is better. Thrombocytopenia 07/06/2018 10/25/2019 Exertional angina 10/22/2016 01/01/2017 Coronary atherosclerosis of samish coronary artery 12/26/2013 03/22/2019 Colon cancer 10/06/2013 08/18/2017 Cancer Staging:Clinical:Stage IIIA(T1, N1, M0) - Signed by Aiden Beauchamp MD on 11/24/2013 Pathologic: Unsigned Overview: 09/29/13 S/p partial sigmoid colectomy-Dr Steiner. Pathologic stage pT1N1a. (metastatic adenocarcinoma 08/25 nodes, invading submucosa) Pre-op testing 09/13/2013 02/25/2017 Routine general medical exam ination at a health care facility 01/25/2013 05/30/2018 Overview: 03/26 CT chest [facility] 6mm nodule. Mak 6mo ordered. 11/24 stopped crestor-myalgias. 08/25 CONSIDER EGD? 10/24 colon-2mm polyp PATH tubular adenoma. Mak 5y Preconetmplative to cut back ETOH. Stable low plat/wbc. 05/24 periph smear done ok. Colonoscopy 09/[address] Sebastian-for Synvisc Needs HARRIET fall 08/22 25mm colon polyp--Path---cancer--resected. 01/19 prostate discussed-declined 11/29/12 RUQ US @ [facility]--possible fatty infiltrate 11/11/12 DEXA @[facility]-- T -1.0 hip 07/20 Rib Xray-Right 7-9th rib frx 04/01/10CT neck [facility]-mild osteophytes 2007 colonoscopy-WNL. 08/14/03. Colonoscopy-The polyp at 45 cm showed moderate atypia. USP current use of ant icoagulant therapy 12/24/2003 11/21/2012 Overview: ICD-10 update of inactive term BENIGN NEOPLASM LG BOWEL 08/31/2003 Calculus of kidney 08/18/2001 8 Coronary atherosclerosis Overview: S/p CABG x5 06/24/1993 VICTORIA-D1-LAD TERRY-RCA SVG-OM1 SVG-OM2 PURE HYPERCHOLESTEROLEM 07/09 Overview: Per Lipid Taxonomy. TIA (transient ischemic attack) 02/25/2017 documented as of this encounter (statuses as of 09/27/2023) Immunizations Name Administration Dates Next Due COVID-19 [...] Not Answered Alcohol Use Standard Drinks/Week Comments Not Currently [...] Sign Reading Time Taken Comments Blood Pressure 118/80 09/24/2023 10:27 AM EST Pulse 56 09/24/2023 10:27 AM EST Temperature - - Respiratory Rate - - Oxygen Saturation 96% 09/24/2023 10:27 AM EST Inhaled Oxygen Concentration - - Weight 91.2 kg (201 lb) 09/24/2023 10:27 AM EST Height - - Body Mass Index 30.79 09/09/2023 8:32 AM EST documented in this [...] this encounter Patient Instructions * Patient Instructions* Jil Farris PA-C - 09/24/2023 10:51 AM EST Stop amlodipine. Decrease metoprolol succinate to 25 mg daily. Make sure to remove nitro patch at night. documented in this encounter Progress Notes * Jil Farris PA-C - 09/24/2023 10:17 AM EST Images from the original note were not included. 09/24/2023 Cardiology Follow Up Primary Screwdown Operator: Dr. Kaiser Cardiac Problems: CAD (S/P [...] the VICTORIA to LAD anastomosis flown to [facility] for further intervention. Other severe samish vessel disease and 2 occluded vein grafts. On 11/24/22 patient received PRESTON to the VICTORIA- LAD anastomosis into the mid LAD with excellent results. HFrEF with recent acute CHF exacerbation requiring hospitalization at [facility] December 2022. LVEF 45% Intermittent LBBB HPI: Curtis Jamil is a 73 year old male who presents for cardiology follow up. In 03/2023 underwent cath which showed severe multivessel disease with 2 known occluded vein grafts,no targets for intervention. Recommended conservative management. Presents today stating he had to stop cardiac rehab due to continued lightheadedness and hypotension. Notes he has episodes of feeling off balance like he is going to pass out. Denies syncope. He wasat grocery store recently where he knew he didn't feel right. Left and drank gatorade in car which seemed to help with symptoms. Thinks he ate that day. Amlodipine dose has been reduced, but he doesn't feel that it is helping. He drinks about 48 oz water daily. Has frequent chest pain with exertion. If bad, will take a nitro which seems to helps with the pain. Wears nitro patch and will occasionally forget to take it off at night. Denies shortness of breath. REVIEW OF SYSTEMS: See HPI for pertinent positives. All others negative other than those noted in the HPI. CONSTITUTIONAL: No change in weight, No weakness, No fatigue and No fevers, No sweats or chills. PULMONARY: No cough, sputum, or hemoptysis, No wheezing, No shortness of breath and No recent change in breathing. CARDIOVASCULAR: + chest pain, No dyspnea on exertion, No edema, No palpitations and No syncope. GASTROINTESTINAL: No abdominal pain, No change in bowel habits, No significant heartburn, No nausea, No vomiting, No diarrhea, No constipation, No blood in stools or black tarry stools. No dysphagia. HEMATOLOGIC: No abnormal bleeding and No bruising. NEUROLOGICAL: No headaches and No weakness. Review of patient's allergies indicates: Allergen Reactions Iodinated Contrast Media Anaphylaxis and Itching Contrast dye Atorvastatin Myalgia Breo Ellipta [Fluticasone Furoate-Vilanterol] Tightness in chest Crestor [Rosuvastatin Calcium] myalgia Other Allergy (See Comments) Product Containing 0-abxeidp-3-methylglutaryl-coenzyme A Reductase Inhibitor (product) Simvastatin myalgia Current [...] TABLET IN THE EVENING 135 Tablet 3 Sertraline HCl 100 MG Oral [...] 50 MCG/ACT Nasal Suspension (Flonase) Administer 1 [place] into nostril daily as needed. Famotidine 20 [...] mouth in the morning. 90 Tablet 3 oxygen GAS 2 LPM bled through NC during hours of sleep (Patient not taking: Reported on 09/24/2023) 1 Each 0 Nitroglycerin 0.4 MG Sublingual Tablet Sublingual (Nitrostat) PLACE 1 TAB UNDER THE TONGUE EVERY 5 MINUTES NEEDED FOR PAIN, CHEST. UP TO 3 DOSES IN 15 MINUTES 25 Tablet 1 No current facility-administered medications [...] 09/11/2016 SBO (small bowel obstruction) (HCC) 11/21 [facility] improved w/NPO SBO (small bowel obstruction) (HCC) 04/23 admit. 11/21 [facility] improved w/NPO. Cont ETOH abuse TIA (transient ischemic attack) 1979 [id number] on coumadin x30y Family History Problem Relation Age of Onset Cancer Father esophageal Heart disease Father Heart Disorder Mother CHF, 92 . Other (diverticulitis) Mother Other (denies fh skin disorder) Mother no family hx Prostate Glaucoma Sister local. 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 2grandkid daughter -[place], son-Jamey sharif 2 grandsons . has friend. 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 A+Ox3. HEENT: Normocephalic. Atraumatic. PERRL. EOMI. Conjunctiva and sclera clear. NECK: No carotid bruits. No JVD. Carotid upstrokes are brisk. Heart: RRR. S1 and S2 noted. No murmur. No rubs or gallops. PMI non displaced. Lungs: Clear to auscultation. No wheezes. No rhonchi. No rales. Abdomen: Normal bowel sounds. [...] report reviewed dated December 16, 2022 at [facility]: Cardiac catheterization report reviewed dated November 24, [...] are mildly enlarged. Cath report reviewed from [facility] dated November 20, 2022: Summary: 1. Severe chronic samish coronary artery disease -100% ostial LAD occlusion [...] intracardiac filling pressure. ASSESSMENT/PLAN: 73 year old male 1. 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 Hx of CABG 3. Lightheadedness - severe multivessel disease with chronic 2 occluded bypass grafts per cath 03/2023, medical management recommended - continues to have anginal pain, stable - discussed it is important to remove nitro patch at night to avoid tolerance, reapply in morning - continue aspirin, plavix, ranolazine - due to mild bradycardia and lightheadedness, will reduce metoprolol succinate to 25 mg daily, monitor heart rate 4. HFrEF (heart failure with reduced ejection fraction) ([facility]) - EF 45-50% on echo 12/2022 - euvolemic on exam - continue entresto, metoprolol succinate, furosemide as needed 5. HTN, goal below 140/80 - blood pressure normal on exam today, has experienced hypotension at cardiac rehab - will stop amlodipine due to hypotension - encouraged to increase fluid intake, eat small meals throughout day 6. Dyslipidemia, goal LDL below 70 - LDL 47 - continue PCSK-9 inhibitor, new script sent for Repatha due to formulary change DISPOSITION: Follow up 1 month or sooner if symptoms worsen/fail to improve. All questions were answered to the patients satisfaction. Patient advised to report to ED with any and all emergencies. The patient agrees to the above plan and will call with additional questions or concerns. Jil Farris PA-C Cardiology, [address] [place] [address] I spent a total of 40 minutes on the date of service in preparation, delivery, and documentation ofthe care provided to Curtis Jamil excluding any time spent in the performance of separately billed services. This chart was completed in part utilizing [employer] Speech Voice Recognition Software. Grammatical errors, random [...] documented in this encounter Nursing Notes * Luci Ibrahim CMA - 09/24/2023 10:25 AM EST Examination Room: 2 Name: Curtis Jamil Date of : (1950) Reason for Visit: 6m Interim Hospitalization(s): ER-dizziness Problems/Concerns: still having dizziness. BP has been on lower side still. Chest Pain/SOB: having chest pain, taking nitro which helps. Denied SOB. My [facility] is a way you can [...] comprehension of instructions. documented in this encounter Miscellaneous Notes * Addendum Note - Summer Gallegos COT - 09/27/2023 8:03 AM ESTAddended by: SUMMER GALLEGOS on: 09/27/2023 08:03 AM Modules accepted: Orders documented in this encounter Plan of Treatment Upcoming Encounters Date Type Department Care Team (Latest Contact Info) Description 11/10/2023 11:00 AM EDT Office Visit Cardiology, [facility] [address] [place] [address] Vivienne Sunshine CRNP [address] [place] [address] 12/10/2023 9:20 AM EDT Office Visit Family Practice [facility] [address] [place] [address] Adelia Pressley CRNP [address] [place] [address] 01/12/2024 12:00 PM EDT Office Visit [facility] [address] [place] [address] Miguel Suarez MD [address] [place] [address] 01/14/2024 2:30 PM EDT Hospital Encounter [facility], Endoscopy Room [facility] [address] [place] [id number] Milvia Arnold MD [address] [place] [address] 01/14/2024 2:30 PM EDT - 01/14/2024 3:00 PM EDT Surgery ENDO [facility], Endoscopy Room [facility] [address] [place] [address] Milvia Arnold MD [address] [place] [address] COLONOSCOPY FLEXIBLE PROXIMAL DIAGNOSTIC 07/21/2024 10:00 AM EST Nurse Only Ancillary [facility] [address] [place] [address] Morin, Nurse Annual Well[facility] [address] [facility] [place] [address] Scheduled Orders Name Type Priority Associated Diagnoses Orde r Schedule EKG EKG Routine 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) Hx of CABG Ordered: 09/27/2023 Scheduled Procedures Name Priority Associated Diagnoses Date/Ti me COLONOSCOPY FLEXIBLE PROXIMAL DIAGNOSTIC History of colon polyps History of colon cancer 01/14/2024 2:30 PM EDT Health Maintenance Due Date Last Done Comments CKD PHOS USE SMARTSET 29226 1968 COLONOSCOPY-EVERY 5 YRS AGES 18-100 10/20/2022 10/20/2017, 10/20/2017, 10/01/2014, Additional history exists COVID-19 Vaccine (2022- season) 2023 07/21/2021, 07/21/2021, 10/16/2020, Additional history exists HbA1c 11/22/2023 11/21/2022, 10/07, 05/20/2021, Additional history exists Albumin/Creatinine Ratio 01/22/2024 023, 10/20/2013, 04/13/2012, Additional history exists GFR 03/06/2024 09/06/2023, 05/10, 04/08/2023, Additional history exists CKD HGB USE SMARTSET 26679 05/28/202405/28, 05/28/2023, 11/26/2022, Additional history exists Depression [...] this encounter Medical Devices Implanted Type Area In Process Inspector Device Identifier Shelf Expiration Date Model / Serial / Lot Stent Synergy Xd Mr [id number] - [id number] Implanted:Qty: 1 on 11/24/2022 by Johnny Schofield MD at [facility] [employer] [id number] 10/13/2023 [id number] 250 / / [id number] Stent Synergy Xd Mr [id number] - [id number] Implanted:Qty: 1 on 11/24/2022 by Johnny Schofield MD at [facility] [employer] [id number] 07/24/2023 [id number] 220 / / [id number] documented as of this encounter Visit Diagnoses Diagnosis 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 No Care Teams Medical Device Sales Representative Relationship Specialty Start Date End Date Miguel Suarez MD [address] [place] [address] PCP - General Family Medicine 07/25/14 documented as of this encounter
--- OUTSIDE RECORDS SUMMARY | 2024-01-24 09:06 | External Medical Summary | Summary of Care ---
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)*; Hx of CABG; Lightheadedness; HFrEF (heart failure with reduced ejection fraction) (HCC); HTN, goal below 140/80; Dyslipidemia, goal LDL below 70 Allergies Active Allergy Reactions Criticality Noted Date Comments Atorvastatin 03/04/2018 Myalgia Fluticasone Furoate-Vilanterol 12/24/2021 Tightness in chest Rosuvastatin Calcium 03/04/2018 myalgia Iodinated Contrast Media Anaphylaxis,Itching High 04/26/2008 Contrast dye Other Allergy (See Comments) 04/24/2022 Product Containing 5-gfkawsp-1-methylgl utaryl-coenzyme A Reductase Inhibitor (product) Simvastatin 03/04/2018 myalgia documented as of this encounter (statuses as of 09/24/2023) Medications Medication Sig Dispensed Refills Start Date [...] Sublingual Tablet Sublingual (Nitrostat)Indic ations:Atheroscl erosis of quinault coronary artery of quinault heart with other form of angina pectoris (HCC),Exertional angina,Coronary artery disease involving coronary bypass graft of quinault heart with angina pectoris (HCC) PLACE 1 [...] 50 MCG/ACT Nasal Suspension (Flonase) Administer 1 [place] into nostril daily as needed. 0 Active Famotidine 20 MG Oral Tablet (Pepcid)Indicati ons:Chronic nausea TAKE 1 TABLET BY MOUTH EVERY DAY IN THE MORNING AND BEFORE BEDTIME 180 Tablet 3 3 Active Clopidogrel Bisulfate 75 MG Oral Tablet (pLAVix)Indicati ons:Atherosclero sis of coronary artery of quinault heart with stable angina pectoris, unspecified vessel [...] mg under the skin every 14 days. Remove from refrigerator 30 minutes prior to injection. 2 Each 4 Active Metoprolol Succinate ER 50 MG [...] artery disease involving coronary bypass graft of quinault heart with angina pectoris (HCC),Hx of CABG,Stable angina,HTN, goal below 140/90 Take 1 Tablet by mouth in the morning. 90 Tablet 3 4 09/24/19 24 Discontinued documented as of this encounter (statuses as of 09/24/2023) Active Problems Problem Noted Date Diagnosed Date [...] disorder, recurrent epi sode 04/12/2019 Atherosclerosis of quinault co ronary artery of quinault heart with stable angina pectoris 07/06/2018 Lung nodules 05/28/2018 Splenomegaly 04/09/2018 History of colon cancer 04/08/2018 Statin intolerance 01/29/2018 Stable angina 02/01/2017 Coronary artery disease invo lving coronary bypass graft of quinault heart with angina pectoris 09/14/2016 S/P angioplasty [...] as of this encounter (statuses as of 09/24/2023) Resolved Problems Problem Noted Date Diagnosed Date Resolved Date SBO (small bowel obstruction) 09/09/2023 09/09/2023 Overview: 04/23 admit. 11/21 [facility] improved w/NPO. Cont ETOH abuse Acute ST elevation myocardia l infarction (STEMI) 11/21/2022 11/26/2022 COPD, group A, by GOLD 2017 classification 11/20/2019 11/14/2021 Overview: Per COPD GOLD Classification COPD, mild 07/09/2018 11/23/2019 Overview: 2018 PFTs mild obstruction. Breo started--feels breathing is better. Thrombocytopenia 07/06/2018 10/25/2019 Exertional angina 10/22/2016 01/01/2017 Coronary atherosclerosis of quinault coronary artery 12/26/2013 03/22/2019 Colon cancer 10/06/2013 08/18/2017 Cancer Staging:Clinical:Stage IIIA(T1, N1, M0) - Signed by Aiden Beauchamp MD on 11/24/2013 Pathologic: Unsigned Overview: 09/29/13 S/p partial sigmoid colectomy-Dr Steiner. Pathologic stage pT1N1a. (metastatic adenocarcinoma 08/25 nodes, invading submucosa) Pre-op testing 09/13/2013 02/25/2017 Routine general medical exam ination at a health care facility 01/25/2013 05/30/2018 Overview: 03/26 CT chest [facility] 6mm nodule. Mak 6mo ordered. 11/24 [...] as of this encounter (statuses as of 09/24/2023) Immunizations Name Administration Dates Next Due COVID-19 [...] not included. 09/24/2023 Cardiology Follow Up Primary Chuck Wagon Cook: Dr. Kaiser Cardiac Problems: CAD (S/P CABG [...] the VICTORIA to LAD anastomosis flown to [facility] for further intervention. Other severe quinault vessel disease and 2 occluded vein grafts. On 11/24/22 patient received PRESTON to the VICTORIA- LAD anastomosis into the mid LAD with excellent results. HFrEF with recent acute CHF exacerbation requiring hospitalization at [facility] December 2022. LVEF 45% Intermittent LBBB HPI: [...] myalgia Other Allergy (See Comments) Product Containing 1-srvwndk-1-methylglutaryl-coenzyme A Reductase Inhibitor (product) Simvastatin myalgia Current [...] 50 MCG/ACT Nasal Suspension (Flonase) Administer 1 [place] into nostril daily as needed. Famotidine 20 [...] 09/11/2016 SBO (small bowel obstruction) (HCC) 11/21 [facility] improved w/NPO SBO (small bowel obstruction) (HCC) 04/23 admit. 11/21 [facility] improved w/NPO. Cont ETOH abuse TIA (transient ischemic attack) 1979 FFX-waetzzf-dwj on coumadin x30y Family History Problem Relation Age of Onset Cancer Father esophageal Heart disease Father Heart Disorder Mother CHF, 92 . Other (diverticulitis) Mother Other (denies fh skin disorder) Mother no family hx Prostate Glaucoma Sister local. 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 has friend. 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 Cath report reviewed from [facility] dated November 20, 2022: Summary: 1. 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 [...] HFrEF (heart failure with reduced ejection fraction) ([facility]) - EF 45-50% on echo 12/2022 - [...] questions or concerns. Jil Farris PA-C Cardiology, [facility] [address] [facility] [place] [address] I spent a total of 40 minutes on the date of service in preparation, delivery, and documentation ofthe care provided to Curtis Jamil excluding any time spent in the performance of separately billed services. This chart was completed in part utilizing [employer] Speech Voice Recognition Software. Grammatical errors, random [...] 11/10/2023 11:00 AM EDT Office Visit Cardiology, [facility] [address] [place] [address] Vivienne Sunshine CRNP [address] [place] [address] 12/10/2023 9:20 AM EDT Office Visit Family Practice [facility] [address] [place] [address] Adelia Pressley CRNP [address] [place] [address] 01/12/2024 12:00 PM EDT Office Visit Family [facility] [address] [place] [address] Miguel Suarez MD [address] [place] [address] 01/14/2024 2:30 PM EDT Hospital Encounter [facility], Endoscopy Room [facility] [address] [place] [phone] Milvia Arnold MD [address] [place] [address] 01/14/2024 2:30 PM EDT - 01/14/2024 3:00 PM EDT Surgery ENDO [facility], Endoscopy Room [facility] [address] [place] [phone] Milvia Arnold MD [address] [place] [address] COLONOSCOPY FLEXIBLE PROXIMAL DIAGNOSTIC 07/21/2024 10:00 AM EST Nurse Only Ancillary [facility] [address] [place] [address] [facility], Nurse Annual Wellness [facility] [address] [place] [address] Scheduled Procedures Name Priority Associated Diagnoses Date/Ti me COLONOSCOPY FLEXIBLE PROXIMAL DIAGNOSTIC History of colon polyps History of colon cancer 01/14/2024 2:30 PM EDT Health Maintenance Due Date Last Done Comments CKD PHOS USE SMARTSET 37331 1968 COLONOSCOPY-EVERY 5 YRS AGES 18-100 10/20/2022 10/20/2017, 10/20/2017, 10/01/2014, Additional history exists COVID-19 Vaccine ( season) 2023 07/21/2021, 07/21/2021, 10/16/2020, Additional history exists HbA1c 11/22/2023 11/21/2022, 10/07, 05/20/2021, Additional history exists Albumin/Creatinine Ratio 01/22/2024 023, 10/20/2013, 04/13/2012, Additional history exists GFR 03/06/2024 09/06/2023, 05/10, 04/08/2023, Additional history exists CKD HGB USE SMARTSET 49864 05/28/202405/28, 05/28/2023, 11/26/2022, Additional history exists Depression [...] this encounter Medical Devices Implanted Type Area Stone Sawyer Device Identifier Shelf Expiration Date Model / Serial / Lot Stent Synergy Xd Mr [id number] - [id number] Implanted:Qty: 1 on 11/24/2022 by Johnny Schofield MD at [facility] [employer] [id number] 10/13/2023 [id number] 250 / / [id number] Stent Synergy Xd Mr [id number] - [id number] Implanted:Qty: 1 on 11/24/2022 by Johnny Schofield MD at [facility] [employer] [id number] 07/24/2023 [id number] 220 / / [id number] documented as of this encounter Visit Diagnoses Diagnosis 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 No Care Teams Rn Visiting Relationship Specialty Start Date End Date Miguel Suarez MD [address] [facility] [place] [address] PCP - General Family Medicine 07/25/14 documented as of this encounter
--- OUTSIDE RECORDS SUMMARY | 2024-01-24 09:06 | External Medical Summary | Summary of Care ---
Author Name Unknown Organization [facility] Address [address] [address] Phone [phone] Care Team Providers Care Gas Line Installer Supervisor Name Role Phone Miguel Suarez MD Primary Care Provider + Reason for Visit * Reason Comments Emergency Department Follow-Up PT HERE F OR AN ER F/U FOR LOW BLOOD PRESSURE Encounter Details Date Type Department Care Team (Late st Contact Info) Description 09/09/2023 8:40 AM EST Office Visit Family [facility] [address] [facility] [place] [address] Adelia Pressley CRNP [address] [place] [address] Hypotension due to hypovolemia*; HTN, goal below 140/90; HFrEF (heart failure with reduced ejection fraction) ([facility]); 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 ([facility]); Chronic kidney disease with symptom management only, stage 3 (moderate) ([facility]) Allergies Active Allergy Reactions Criticality Noted Date Comments Atorvastatin 03/04/2018 Myalgia Fluticasone Furoate-Vilanterol 12/24/2021 Tightness in chest Rosuvastatin Calcium 03/04/2018 myalgia Iodinated Contrast Media Anaphylaxis,Itching High 04/26/2008 Contrast dye Other Allergy (See Comments) 04/24/2022 Product Containing 2-ruoyrhm-9-methylgl utaryl-coenzyme A Reductase Inhibitor (product) Simvastatin 03/04/2018 myalgia documented as of this encounter (statuses as of 09/09/2023) Medications Medication Sig Dispensed Refills Start Date [...] Sublingual Tablet Sublingual (Nitrostat)Indica tions:Atheroscler osis of iroquois coronary artery of iroquois heart with other form of angina pectoris (HCC),Exertional angina,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 90 Patch 3 12/22/2022 Active Metoprolol Succinate ER 50 [...] 50 MCG/ACT Nasal Suspension (Flonase) Administer 1 [place] into nostril daily as needed. 0 Active Famotidine 20 MG Oral Tablet (Pepcid)Indicatio ns:Chronic nausea TAKE 1 TABLET BY MOUTH EVERY DAY IN THE MORNING AND BEFORE BEDTIME 180 Tablet 3 06/01/2023 Active Alirocumab 150 MG/ML Subcutaneous Solution Auto-injector Inject 150 mg under the skin every 14 days. 6 mL 3 06/18/2023 Active Clopidogrel Bisulfate 75 MG Oral Tablet (pLAVix)Indicatio ns:Atherosclerosi s of coronary artery of iroquois heart with stable angina pectoris, unspecified vessel or lesion type (HCC),Cerebrovasc ular disease, arteriosclerotic, post-stroke TAKE 1 TABLET BY MOUTH EVERY DAY 90 Tablet 3 06/22/2023 Active Pantoprazole Sodium 40 MG Oral Tablet Delayed Release (Protonix) TAKE 1 TABLET BY MOUTH EVERY DAY IN THE MORNING AND AT BEDTIME 180 Tablet 0 09/02/2023 Active amLODIPine Besylate 10 MG Oral Tablet (Norvasc) Take 0.5 Tablets by mouth in the morning. 0 09/07/2023 Active predniSONE 10 MG Oral Tablet (Deltasone) Take 1 Tablet by mouth in the morning. Follow taper instructions. 0 08/16/2023 Discontinue d(Medicatio n List Clean Up) documented as of this encounter (statuses as of 09/09/2023) Active Problems Problem Noted Date Diagnosed Date Dizziness 09/09/2023 Chronic combined systolic an d [...] adult exam 04/12/2019 Overview: Daughter-Sherly. 03/31 inferior NM? Cath- no new lesions of CABG. 12/29 TTE [facility] similar. 11/28 new stent. TTE 45-49%. Mod wall motion abn. Mild AR. Mild dilated A root/ascend 10/28 6MWT ok. 10/27 UE EMG ok. 2017 colon 2mm polyp. Mak 5y 2014 colon CA Chronic major depressive disorder, recurrent epi sode 04/12/2019 Atherosclerosis of iroquois co ronary artery of iroquois heart with stable angina pectoris 07/06/2018 Lung nodules 05/28/2018 Splenomegaly 04/09/2018 History of colon cancer 04/08/2018 Statin intolerance 01/29/2018 Stable angina 02/01/2017 Coronary artery disease invo lving coronary bypass graft of iroquois heart with angina pectoris 09/14/2016 S/P angioplasty [...] as of this encounter (statuses as of 09/09/2023) Resolved Problems Problem Noted Date Diagnosed Date Resolved Date SBO (small bowel obstruction) 09/09/2023 09/09/2023 Overview: 04/23 admit. 11/21 [facility] improved w/NPO. Cont ETOH abuse Acute ST elevation myocardia l infarction (STEMI) 11/21/2022 11/26/2022 COPD, group A, by GOLD 2017 classification 11/20/2019 11/14/2021 Overview: Per COPD GOLD Classification COPD, mild 07/09/2018 11/23/2019 Overview: 2018 PFTs mild obstruction. Breo started--feels breathing is better. Thrombocytopenia 07/06/2018 10/25/2019 Exertional angina 10/22/2016 01/01/2017 Coronary atherosclerosis of iroquois coronary artery 12/26/2013 03/22/2019 Colon cancer 10/06/2013 08/18/2017 Cancer Staging:Clinical:Stage IIIA(T1, N1, M0) - Signed by Aiden Beauchamp MD on 11/24/2013 Pathologic: Unsigned Overview: 09/29/13 S/p partial sigmoid colectomy-Dr Steiner. Pathologic stage pT1N1a. (metastatic adenocarcinoma 08/25 nodes, invading submucosa) Pre-op testing 09/13/2013 02/25/2017 Routine general medical exam ination at a health care facility 01/25/2013 05/30/2018 Overview: 03/26 CT chest [facility] 6mm nodule. Mak 6mo ordered. [...] Rib Xray-Right 7-9th rib frx 04/01/10CT neck @[facility]-mild osteophytes 2007 colonoscopy-WNL. 08/14/03. Colonoscopy-The polyp at 45 cm showed moderate atypia. supervisor intermediates current use of ant icoagulant therapy 12/24/2003 11/21/2012 Overview: ICD-10 update of inactive term BENIGN NEOPLASM LG BOWEL 08/31/2003 Calculus of kidney 08/18/2001 8 Coronary atherosclerosis Overview: S/p CABG x5 06/24/1993 VICTORIA-D1-LAD TERRY-RCA SVG-OM1 SVG-OM2 PURE HYPERCHOLESTEROLEM 07/09 Overview: Per Lipid Taxonomy. TIA (transient ischemic attack) 02/25/2017 documented as of this encounter (statuses as of 09/09/2023) Immunizations Name Administration Dates Next Due COVID-19 [...] Sign Reading Time Taken Comments Blood Pressure 120/70 09/09/2023 8:32 AM EST Pulse 52 09/09/2023 8:32 AM EST Temperature 35.8 C (96.5 F) 09/09/2023 8:32 AM ES T Respiratory Rate 16 09/09/2023 8:32 AM EST Oxygen Saturation 98% 09/09/2023 8:32 AM EST Inhaled Oxygen Concentration - - Weight 89.6 kg (197 lb 8 oz) 09/09/2023 8:32 AM EST Height 172.1 cm (5' 7.75") 09/09/2023 8:32 AM ES T Body Mass Index 30.25 09/09/2023 8:32 AM EST documented in this [...] of this encounter Progress Notes * Adelia Pressley CRNP - 09/09/2023 8:41 AM EST ER Follow up Family Medicine Visit CC: Chief Complaint Patient presents with Emergency Department Follow-Up PT HERE FOR AN ER F/U FOR LOW BLOOD PRESSURE History of Present Illness: Curtis Jamil is a 73 year old male presenting for ER follow up. He was seen at [facility] for headaches and admitted. Discharged on 08/16/2023. He was at cardiac rehab and ntoed to have low blood pressure. He felt dizzy and light headed. CBC showing baseline low platelets Chest x ray clear EKG showing old infarct Home bps 103-128/55/78. His amodipine was reduced to 5 mg. He is still feeling occasional dizziness. Uses cane occ. It is improved the last 2 days. Denies increased sob or chest pain. Denies swelling in legs. 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 11/21 [facility] improved w/NPO. Cont ETOH abuse TIA (transient ischemic attack) 1979 XYV-bhatdtk-inf on coumadin x30y Past Surgical History: Procedure Laterality Date CABG, ARTERY-VEIN, FIVE 1992 [facility]-[place] Cagle CARDIAC ANGIOPLASTY, PERCUTANEOUS, 1 ARTERY Bilateral 11/24/2022 PTCA, CARDIAC ANGIOPLASTY, PERCUTANEOUS, 1 ARTERY performed by Johnny Schofield MD at [facility] CARDIAC CATH SCANNED RESULT 09/11/2016 cardiac stent-PRESTON the the SVG to 1st OM due to 95% stenosis. CARDIAC CATH-CARDIOLOGY ONLY 04/02/2023 Dr Paredes @[facility]. focus on CABG sites-no lesions. stent open. diagonal disease. CARPAL TUNNEL SURGERY 2004 right CARPAL TUNNEL SURGERY Left 01/03/2021 NEUROPLASTY MEDIAN NERVE AT CARPAL TUNNEL performed by Higinio Lindsay MD at OR [facility] COLONOSCOPY, DIAGNOSTIC (RECTUM) 09/05/2013 COLONOSCOPY FLEXIBLE PROXIMAL DIAGNOSTIC performed by Milvia Arnold MD at ENDOSCOPY [facility] COLONOSCOPY, DIAGNOSTIC (RECTUM) 10/01/2014 diverticulosis, repeat 3 yrs/COLONOSCOPY FLEXIBLE PROXIMAL DIAGNOSTIC performed by Milvia Arnold MD at ENDOSCOPY [facility] COLONOSCOPY, DIAGNOSTIC (RECTUM) 10/20/2017 adenomatous polyp, repeat 5 yrs/COLONOSCOPY FLEXIBLE PROXIMAL DIAGNOSTIC performed by Milvia Arnold MD at ENDOSCOPY [facility] CORONARY ANGIOGRAPHY W/LEFT HEART CATH 11/04/2016 CORONARY ANGIOGRAPHY W/LEFT HEART CATH performed by Liz Zhang MD at [facility] EGD, FLEXIBLE, DIAGNOSTIC 04/28/2022 normal bx / ESOPHAGOGASTRODUODENOSCOPY (EGD), FLEXIBLE, TRANSORAL, DIAGNOSTIC performed by Syed Ferrara MD at ENDOSCOPY [facility] KNEE ARTHROSCOPY, DIAGNOSTIC Knee Arthroscopy, several MISCELLANEOUS ORDER ([facility] ONLY) sinus trubinate reduction MISCELLANEOUS ORDER ([facility] ONLY) left great toe surgery PARTIAL REMOVAL OF COLON 09/29/2013 Sigmoid colon resection with stapled end-to-end anastomosis, [facility], Dr. Steiner REMOVE TONSILS & ADENOIDS, UNDER 12 T & A, age<12 SYNVISC 1MG INJ, INTRA-ARTICULAR 04/2011 right knee done Outpatient Medications Marked as Taking for the 09/09/23 encounter (Office Visit) with Adelia Pressley CRNP Medication Sig amLODIPine Besylate 10 MG Oral Tablet (Norvasc) Take 0.5 Tablets by mouth in the morning. Pantoprazole Sodium 40 MG Oral Tablet Delayed Release (Protonix) TAKE 1 TABLET BY MOUTH EVERY DAY IN THE MORNING AND AT BEDTIME Clopidogrel Bisulfate 75 MG Oral Tablet (pLAVix) TAKE 1 TABLET BY MOUTH EVERY DAY Famotidine 20 MG Oral Tablet (Pepcid) TAKE 1 TABLET BY MOUTH EVERY DAY IN THE MORNING AND BEFORE BEDTIME Fluticasone Propionate 50 MCG/ACT Nasal Suspension (Flonase) Administer 1 [place] into nostril daily as needed. Vitamin B-12 1000 MCG Oral Tablet (Cyanocobalamin) Take 1 Tablet by mouth in the morning. Vitamin E 400 UNIT Oral Capsule (Aquasol E) Take 1 Capsule by mouth in the morning. Furosemide 20 MG Oral Tablet (Lasix) Take 1 Tablet by mouth as needed (swelling, weight gain and shortness of breath). Metoprolol Succinate ER 50 MG Oral Tablet [...] myalgia Other Allergy (See Comments) Product Containing 0-djrowst-0-methylglutaryl-coenzyme A Reductase Inhibitor (product) Simvastatin myalgia Most Recent Immunizations Administered Date(s) Administered COVID-19 mRNA, LNP-s, No Preserve, 2-Dose Series (Moderna) 10/16/2020 COVID-19 mRNA, LNP-s, No Preserve, 2-Dose Series (Pfizer) 07/21/2021 COVID-19, mRNA, LNP-s, PF, Booster, 100mcg/0.5mg [...] of Systems Constitutional: Negative for fatigue. Respiratory: Negative for shortness of breath. Cardiovascular: Negative for chest pain. Gastrointestinal: Negative for abdominal pain. Neurological: Positive for dizziness. Negative for syncope. Physical Exam: BP 120/70 (BP Site: Left Arm, BP Position: Sitting, BP Cuff Size: Regular) | Pulse 52 | Temp 35.8 C (96.5 F) (Tympanic) | Resp 16 | Ht 1.721 m (5' 7.75") | Wt 89.6 kg (197 lb 8 oz) | SpO2 98% | BMI 30.25 kg/m | BSA 2.07 m Physical Exam Vitals and nursing note reviewed. HENT: Head: Normocephalic. Eyes: Pupils: Pupils are equal, round, and reactive to light. Cardiovascular: Rate and Rhythm: Normal rate. Pulmonary: Effort: Pulmonary effort is normal. Breath sounds: Normal breath sounds. Abdominal: General: Bowel sounds are normal. Palpations: Abdomen is soft. There is no mass. Tenderness: There is no abdominal tenderness. Musculoskeletal: General: Normal range of motion. Cervical back: Normal range of motion. Skin: General: Skin is warm and dry. Neurological: General: No focal deficit present. Mental Status: He is alert and oriented to person, place, and time. Psychiatric: Mood and Affect: Mood normal. Behavior: Behavior normal. Thought Content: Thought content normal. Judgment: Judgment normal. Assessment and Plan: 1. Hypotension due to hypovolemia S/p ED visit Noted to be hypovolemic- given 500 ml bolus. Reduced amlodipine to 5 mg 2. HTN, goal below 140/90 Improved control Continue reduced dose of amlodpine 3. HFrEF (heart failure with reduced ejection fraction) ([facility]) Weight is up 6 lbs but he does have on heavy clothing today Denies increased SOB or swelling Has not taken lasix for the last week 4. 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 Chronic kidney disease with symptom management only, stage 3 (moderate) (HCC) stable I have advised the patient to call our office incase of any worsening or new symptoms. I spent a total of 40-54 minutes (exact time 40 mins) on the date of service in preparation, delivery, and documentation of the care provided to Curtis Jamil excluding any time spent in the performance of separately billed services. Jann, MSN, TIMBO [facility] Medicine documented in this encounter Plan of Treatment Upcoming Encounters Date Type Department Care Team (Latest Contact Info) Description 11/10/2023 11:00 AM EDT Office Visit [facility] [address] [address] Vivienne Sunshine CRNP [address] [place] [place] [address] 12/10/2023 9:20 AM EDT Office Visit Family [facility] [address] [address] Adelia Pressley CRNP [address] [place] [address] 01/12/2024 12:00 PM EDT Office Visit [facility] [address] [phone] Miguel Suarez MD [address] [place] [place] [address] 01/14/2024 2:30 PM EDT Hospital Encounter ENDO [facility], Endoscopy Room [facility] [address] [place] [phone] Milvia Arnold MD [address] [place] [address] 01/14/2024 2:30 PM EDT - 01/14/2024 3:00 PM EDT Surgery ENDO [facility], Endoscopy Room [facility] [address] [place] [phone] Milvia Arnold MD [address] [place] [address] COLONOSCOPY FLEXIBLE PROXIMAL DIAGNOSTIC 07/21/2024 10:00 AM EST Nurse Only [facility] [address] [place] [address] [facility], Nurse Annual Wellness [facility] [address] [place] [address] Scheduled Procedures Name Priority Associated Diagnoses Date/Ti [...] 10/07, 05/20/2021, Additional history exists Depression Screening 07/20/2024 07/20/2023, 03/23/2018 (Declined) GFR 09/06/2024 09/06/2023, 05/10, 04/08/2023, Additional history exists Albumin/Creatinine Ratio 01/21/2026 023, [...] this encounter Medical Devices Implanted Type Area Photovoltaic Power Systems Engineer Device Identifier Shelf Expiration Date Model / Serial / Lot Stent Synergy Xd Mr [id number] - [id number] Implanted:Qty: 1 on 11/24/2022 by Johnny Schofield MD at [facility] [place] [employer] [id number] 07/24/2023 [id number] / / [id number] documented as of this encounter Visit Diagnoses Diagnosis Hypotension due to hypovolemia- Primary HTN, goal below 140/90 Unspecified essential hypertension HFrEF (heart failure with reduced ejection fraction) (HCC) 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 No Care Teams Gas Line Installer Supervisor Relationship Specialty Start Date End Date Miguel Suarez MD [address] [place] [address] PCP - General Family Medicine 07/25/14 documented as of this encounter
--- OUTSIDE RECORDS SUMMARY | 2024-01-24 09:06 | External Medical Summary | Summary of Care ---
Author Name Unknown Organization [facility] Address [address] [facility] [place] [address] Phone [phone] Care Team Providers Care Envelope Maker Name Role Phone Miguel Suarez MD Primary Care Provider + Reason for Visit * Reason Onset Date Comments Test Results 09/07/2023 Encounter Details Date Type Department Care Team (Late st Contact Info) Description 09/07/2023 Telephone Cardiology, [facility] [address] [place] [address] Maria Del Carmen Sam PA-C [address] [place] [address] Test Results Allergies Active Allergy Reactions Criticality Noted Date Comments Atorvastatin 03/04/2018 Myalgia Fluticasone Furoate-Vilanterol 12/24/2021 Tightness in chest Rosuvastatin Calcium 03/04/2018 myalgia Iodinated Contrast Media Anaphylaxis,Itching High 04/26/2008 Contrast dye Other Allergy (See Comments) 04/24/2022 Product Containing 2-lsthhnm-1-methylgl utaryl-coenzyme A Reductase Inhibitor (product) Simvastatin 03/04/2018 [...] Sublingual Tablet Sublingual (Nitrostat)Indica tions:Atheroscler osis of lumbee coronary artery of lumbee heart with other form of angina pectoris (HCC),Exertional angina,Coronary artery disease involving coronary bypass graft of lumbee heart with angina pectoris (HCC) PLACE 1 [...] 50 MCG/ACT Nasal Suspension (Flonase) Administer [address] into nostril daily as needed. 0 Active [...] (pLAVix)Indicatio ns:Atherosclerosi s of coronary artery of lumbee heart with stable angina pectoris, unspecified vessel [...] disorder, recurrent epi sode 04/12/2019 Atherosclerosis of lumbee co ronary artery of lumbee heart with stable angina pectoris 07/06/2018 Lung nodules 05/28/2018 Splenomegaly 04/09/2018 History of colon cancer 04/08/2018 Statin intolerance 01/29/2018 Stable angina 02/01/2017 Coronary artery disease invo lving coronary bypass graft of lumbee heart with angina pectoris 09/14/2016 S/P angioplasty [...] obstruction) 09/09/2023 09/09/2023 Overview: 04/23 admit. 11/21 [facility] improved w/NPO. Cont ETOH abuse Acute ST elevation myocardia l infarction (STEMI) 11/21/2022 11/26/2022 COPD, group A, by GOLD 2017 classification 11/20/2019 11/14/2021 Overview: Per COPD GOLD Classification COPD, mild 07/09/2018 11/23/2019 Overview: 2018 PFTs mild obstruction. Breo started--feels breathing is better. Thrombocytopenia 07/06/2018 10/25/2019 Exertional angina 10/22/2016 01/01/2017 Coronary atherosclerosis of lumbee coronary artery 12/26/2013 03/22/2019 Colon cancer 10/06/2013 08/18/2017 Cancer Staging:Clinical:Stage IIIA(T1, N1, M0) - Signed by Aiden Beauchamp MD on 11/24/2013 Pathologic: Unsigned Overview: 09/29/13 S/p partial sigmoid colectomy-Dr Steiner. Pathologic stage pT1N1a. (metastatic adenocarcinoma 08/25 nodes, invading submucosa) Pre-op testing 09/13/2013 02/25/2017 Routine general medical exam ination at a health care facility 01/25/2013 05/30/2018 Overview: 03/26 CT chest [facility] 6mm nodule. Mak 6mo ordered. 11/24 stopped crestor-myalgias. 08/25 CONSIDER EGD? 10/24 colon-2mm polyp PATH tubular adenoma. Mak 5y Preconetmplative to cut back ETOH. Stable low plat/wbc. 05/24 periph smear done ok. Colonoscopy 09/[address] Sebastian-for Synvisc Needs HARRIET fall 08/22 25mm colon polyp--Path---cancer--resected. 01/19 prostate discussed-declined 11/29/12 RUQ US @ [facility]--possible fatty infiltrate 11/11/12 DEXA @[facility]-- T -1.0 hip 07/20 Rib Xray-Right 7-9th rib frx 04/01/10CT neck @[facility]-mild osteophytes 2007 colonoscopy-WNL. 08/14/03. Colonoscopy-The polyp at 45 cm showed moderate atypia. 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 * Telephone Encounter - Maria Del Carmen Sam PA-C - 09/09/2023 8:14 AM EST Agree with reducing amlodipine to 2.5 mg daily We can send new script for 2.5 mg daily if needed. Verify pharmacy * Telephone Encounter - Luci Ibrahim CMA - 09/07/2023 4:00 PM EST Spoke with pt. He is still having dizziness but not as consistent. BP still has been low. 90/60s. PCP office has also been giving instructions on this issue and told pt to reduce to 2.5mg which he hasn't started yet. Unsure if able to cut the 10mg into quarters. Can we send in 5mg tablet to cut in half? Or pcp? DAVIN fajardoe * Telephone Encounter - Luci Ibrahim CMA - 09/07/2023 3:59 PM EST ----- Message from Maria Del Carmen Sam PA-C sent at 09/07/2023 3:18 PM EST ----- Stable renal function. Improved from recent ER visit. Amlodipine was reduced from 10 to 5 mg due to hypotension and dizziness. See how he is feeling since ER and med reduction? documented in this encounter Plan of Treatment Upcoming Encounters Date Type Department Care Team (Latest Contact Info) Description 11/10/2023 11:00 AM EDT Office Visit Cardiology, [facility] [address] [address] Vivienne Sunshine CRNP [address] [place] [address] 12/10/2023 9:20 AM EDT Office Visit [facility] [address] [address] Adelia Pressley CRNP [address] [place] [address] 01/12/2024 12:00 PM EDT Office Visit [facility] [address] [phone] Miguel Suarez MD [address] [place] [address] 01/14/2024 2:30 PM EDT Hospital Encounter ENDO [facility], Endoscopy Room [facility] [address] [phone] Milvia Arnold MD [address] [place] [address] 01/14/2024 2:30 PM EDT - 01/14/2024 3:00 PM EDT Surgery ENDO [facility], Endoscopy Room [facility] [address] [place] [phone] Milvia Arnold MD [address] [place] [address] COLONOSCOPY FLEXIBLE PROXIMAL DIAGNOSTIC 07/21/2024 10:00 AM EST Nurse Only Ancillary [facility] [address] [place] [address] [facility], Nurse Annual Wellness [facility] [address] [place] [address] Scheduled Procedures Name Priority Associated Diagnoses Date/Ti [...] this encounter Medical Devices Implanted Type Area Mine Expert Device Identifier Shelf Expiration Date Model / Serial / Lot Stent Synergy Xd Mr [id number] - [id number] Implanted:Qty: 1 on 11/24/2022 by Johnny Schofield MD at [facility] [employer] [id number] 07/24/2023 [id number] / / [id number] documented as of this encounter Advance Directives [...] the patient have Health Care Power of Assembler Mechanical Ordnance? No Care Teams Envelope Maker Relationship Specialty Start Date End Date Miguel Suarez MD [address] [place] [address] PCP - General Family Medicine 07/25/14 documented as of this encounter
--- OUTSIDE RECORDS SUMMARY | 2024-01-24 09:06 | External Medical Summary | Summary of Care ---
Author Name Unknown Organization [facility] Address [address] [facility] [place] [address] Phone [phone] Care Team Providers Care Counter Stacker Name Role Phone Mgiuel Suarez MD Primary Care Provider + Encounter Details Date Type Department Care Team (Late st Contact Info) Description 10/11/2023 Orders Only PATIENT PORTAL DO NOT DELETE THIS DEPT USED BY [place] [phone] Allergies Active Allergy Reactions Criticality Noted Date Comments Atorvastatin 03/04/2018 Myalgia Fluticasone Furoate-Vilanterol 12/24/2021 Tightness in chest Rosuvastatin Calcium 03/04/2018 myalgia Iodinated Contrast Media Anaphylaxis,Itching High 04/26/2008 Contrast dye Other Allergy (See Comments) 04/24/2022 Product Containing 8-vsrhnet-5-methylgl utaryl-coenzyme A Reductase Inhibitor (product) Simvastatin 03/04/2018 myalgia documented as of this encounter (statuses as of 10/11/2023) Medications Medication Sig Dispensed Refills Start Date [...] MG Sublingual Tablet Sublingual (Nitrostat)Indicati ons:Atherosclerosis of [place] coronary artery of white [...] 50 MCG/ACT Nasal Suspension (Flonase) Administer 1 [place] into nostril daily as needed. 0 Active Famotidine 20 MG Oral Tablet (Pepcid)Indications :Chronic nausea TAKE 1 TABLET BY MOUTH EVERY DAY IN THE MORNING AND BEFORE BEDTIME 180 Tablet 3 06/01/2023 Active Clopidogrel Bisulfate 75 MG Oral Tablet (pLAVix)Indications :Atherosclerosis of coronary artery of [place] heart [...] to injection. 2 mL 11 09/24/2023 Active documented as of this encounter (statuses as of 10/11/2023) Active Problems Problem Noted Date Diagnosed Date [...] adult exam 04/12/2019 Overview: Daughter-Sherly. 03/31 inferior MA? Cath- no new lesions of CABG. 12/29 TTE [place] similar. 11/28 new stent. TTE 45-49%. Mod wall motion abn. Mild AR. Mild dilated A root/ascend 10/28 6MWT ok. 10/27 UE EMG ok. 2017 colon 2mm polyp. Mak 5y 2013 colon CA Chronic major depressive disorder, recurrent epi sode 04/12/2019 Atherosclerosis of [place] co ronary [...] as of this encounter (statuses as of 10/11/2023) Resolved Problems Problem Noted Date Diagnosed Date Resolved Date SBO (small bowel obstruction) 09/09/2023 09/09/2023 Overview: 04/23 admit. 11/21 [facility] improved w/NPO. Cont ETOH abuse Acute ST elevation myocardia l infarction (STEMI) 11/21/2022 11/26/2022 COPD, group A, by GOLD 2017 classification 11/20/2019 11/14/2021 Overview: Per COPD GOLD Classification COPD, mild 07/09/2018 11/23/2019 Overview: 2018 PFTs mild obstruction. Breo started--feels breathing is better. Thrombocytopenia 07/06/2018 10/25/2019 Exertional angina 10/22/2016 01/01/2017 Coronary atherosclerosis of [place] coronary artery 12/26/2013 03/22/2019 Colon cancer 10/06/2013 08/18/2017 Cancer Staging:Clinical:Stage IIIA(T1, N1, M0) - Signed by Aiden Beauchamp MD on 11/24/2013 Pathologic: Unsigned Overview: 09/29/13 S/p partial sigmoid colectomy-Dr Steiner. Pathologic stage pT1N1a. (metastatic adenocarcinoma 08/25 nodes, invading submucosa) Pre-op testing 09/13/2013 02/25/2017 Routine general medical exam ination at a health care facility 01/25/2013 05/30/2018 Overview: 03/26 CT chest [facility] 6mm nodule. Mak 6mo ordered. 11/24 stopped crestor-myalgias. 08/25 CONSIDER EGD? 10/24 colon-2mm polyp PATH tubular adenoma. Mak 5y Preconetmplative to cut back ETOH. Stable low plat/wbc. 05/24 periph smear done ok. Colonoscopy 09/[address] Sebastian-for Synvisc Needs HARRIET fall 08/22 25mm colon polyp--Path---cancer--resected. 01/19 prostate discussed-declined 11/29/12 RUQ US @ [place]--possible fatty infiltrate 11/11/12 DEXA @[facility]-- T -1.0 [...] as of this encounter (statuses as of 10/11/2023) Immunizations Name Administration Dates Next Due COVID-19 [...] 11/10/2023 11:00 AM EDT Office Visit Cardiology, [facility] [address] [place] [address] Vivienne Sunshine CRNP [address] [place] [address] 12/06/2023 9:30 AM EDT Laboratory Laboratory, [facility] [address] [place] [phone] [facility] [address] [place] [address] 12/10/2023 9:20 AM EDT Office Visit [facility] [address] [place] [address] Adelia Pressley CRNP [address] [place] [address] 01/12/2024 12:00 PM EDT Office Visit [facility] [address] [place] [address] Miguel Suarez MD [address] [place] [address] 01/14/2024 2:30 PM EDT Hospital Encounter [facility]O [facility], Endoscopy Room [facility] [address] [place] [phone] Milvia Arnold MD [address] [place] [address] 01/14/2024 2:30 PM EDT - 01/14/2024 3:00 PM EDT Surgery ENDO [facility], Endoscopy Room [facility] [address] [place] [phone] Milvia Arnold MD [address] [place] [address] COLONOSCOPY FLEXIBLE PROXIMAL DIAGNOSTIC 07/21/2024 10:00 AM EST Nurse Only Ancillary [facility] [address] [place] [address] [facility], Nurse Annual Wellness [facility] [address] [place] [address] Scheduled Procedures Name Priority Associated Diagnoses Date/Ti me COLONOSCOPY FLEXIBLE PROXIMAL DIAGNOSTIC History of colon polyps History of colon cancer 01/14/2024 2:30 PM EDT Health Maintenance Due Date Last Done Comments CKD PHOS USE SMARTSET 46534 1968 COLONOSCOPY-EVERY 5 YRS AGES 18-100 10/20/2022 10/20/2017, 10/20/2017, 10/01/2014, Additional history exists COVID-19 Vaccine ( season) 2023 07/21/2021, 07/21/2021, 10/16/2020, Additional history exists HbA1c 11/22/2023 11/21/2022, 10/07, 05/20/2021, Additional history exists Albumin/Creatinine Ratio 01/22/2024 023, 10/20/2013, 04/13/2012, Additional history exists GFR 03/06/2024 09/06/2023, 05/10, 04/08/2023, Additional history exists CKD HGB USE SMARTSET 80669 05/28/202405/28, 05/28/2023, 11/26/2022, Additional history exists Depression [...] this encounter Medical Devices Implanted Type Area Electrical Prospecting Observer Device Identifier Shelf Expiration Date Model / Serial / Lot Stent Synergy Xd Mr [id number] - [id number] Implanted:Qty: 1 on 11/24/2022 by Johnny Schofield MD at [facility] [employer] [id number] 10/13/2023 [id number] / / [id number] Stent Synergy Xd Mr [id number] - [id number] Implanted:Qty: 1 on 11/24/2022 by Johnny Schofield MD at [facility] [employer] [id number] 07/24/2023 [id number] / / [id number] documented as of this encounter Advance Directives [...] the patient have Health Care Power of Collector Of Aquarium Specimens? No Care Teams Counter Stacker Relationship Specialty Start Date End Date Miguel Suarez MD [address] [place] [address] PCP - General Family Medicine 07/25/14 documented as of this encounter
--- OUTSIDE RECORDS SUMMARY | 2024-01-24 09:06 | External Medical Summary | Summary of Care ---
Author Name Unknown Organization [facility] Address [address] [facility] [place] [address] Phone [phone] Care Team Providers Care Final Inspector And Tester Name Role Phone Miguel Suarez MD Primary Care Provider + Reason for Visit * Reason Onset Date Comments Information 09/15/2023 Encounter Details Date Type Department Care Team (Late st Contact Info) Description 09/15/2023 Telephone Cardiology, [facility] [address] [place] [address] Genaro Kaiser, [address] [place] [address] Information Allergies Active Allergy Reactions Criticality Noted Date Comments Atorvastatin 03/04/2018 Myalgia Fluticasone Furoate-Vilanterol 12/24/2021 Tightness in chest Rosuvastatin Calcium 03/04/2018 myalgia Iodinated Contrast Media Anaphylaxis,Itching High 04/26/2008 Contrast dye Other Allergy (See Comments) 04/24/2022 Product Containing 1-ccdshzh-7-methylgl utaryl-coenzyme A Reductase Inhibitor (product) Simvastatin 03/04/2018 myalgia documented as of this encounter (statuses as of 09/17/2023) Medications Medication Sig Dispensed Refills Start Date [...] MG Sublingual Tablet Sublingual (Nitrostat)Indicati ons:Atherosclerosis of [place] coronary artery of [place] heart with other form of angina pectoris (HCC),Exertional angina,Coronary artery disease involving coronary bypass graft of [place] heart with angina pectoris (HCC) PLACE 1 [...] 50 MCG/ACT Nasal Suspension (Flonase) Administer 1 [place] into nostril daily as needed. 0 Active [...] Tablet (pLAVix)Indications :Atherosclerosis of coronary artery of [place] heart with stable angina pectoris, unspecified vessel or lesion type (HCC),Cerebrovascul ar disease, arteriosclerotic, post-stroke TAKE 1 TABLET BY MOUTH EVERY DAY 90 Tablet 3 06/22/2023 Active Pantoprazole Sodium 40 MG Oral Tablet Delayed Release (Protonix) TAKE 1 TABLET BY MOUTH EVERY DAY IN THE MORNING AND AT BEDTIME 180 Tablet 0 09/02/2023 Active amLODIPine Besylate 2.5 MG Oral Tablet (Norvasc)Indication s:Coronary artery disease involving coronary bypass graft of [place] heart with angina pectoris (HCC),Hx of CABG,Stable angina,HTN, goal below 140/90 Take 1 Tablet by mouth in the morning. 90 Tablet 3 09/10/2023 Active documented as of this encounter (statuses as of 09/17/2023) Active Problems Problem Noted Date Diagnosed Date [...] disorder, recurrent epi sode 04/12/2019 Atherosclerosis of [place] co ronary artery of [place] heart with stable angina pectoris 07/06/2018 Lung nodules 05/28/2018 Splenomegaly 04/09/2018 History of colon cancer 04/08/2018 Statin intolerance 01/29/2018 Stable angina 02/01/2017 Coronary artery disease invo lving coronary bypass graft of [place] heart with angina pectoris 09/14/2016 S/P angioplasty [...] as of this encounter (statuses as of 09/17/2023) Resolved Problems Problem Noted Date Diagnosed Date Resolved Date SBO (small bowel obstruction) 09/09/2023 09/09/2023 Overview: 04/23 admit. 11/21 [facility] improved w/NPO. Cont ETOH abuse Acute ST elevation myocardia l infarction (STEMI) 11/21/2022 11/26/2022 COPD, group A, by GOLD 2017 classification 11/20/2019 11/14/2021 Overview: Per COPD GOLD Classification COPD, mild 07/09/2018 11/23/2019 Overview: 2018 PFTs mild obstruction. Breo started--feels breathing is better. Thrombocytopenia 07/06/2018 10/25/2019 Exertional angina 10/22/2016 01/01/2017 Coronary atherosclerosis of [place] coronary artery 12/26/2013 03/22/2019 Colon cancer 10/06/2013 08/18/2017 Cancer Staging:Clinical:Stage IIIA(T1, N1, M0) - Signed by Aiden Beauchamp MD on 11/24/2013 Pathologic: Unsigned Overview: 09/29/13 S/p partial sigmoid colectomy-Dr Steiner. Pathologic stage pT1N1a. (metastatic adenocarcinoma 08/25 nodes, invading submucosa) Pre-op testing 09/13/2013 02/25/2017 Routine general medical exam ination at a health care facility 01/25/2013 05/30/2018 Overview: 03/26 CT chest [facility] 6mm nodule. Mak 6mo ordered. 11/24 [...] cm showed moderate atypia. 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 TIA (transient ischemic attack) 02/25/2017 documented as of this encounter (statuses as of 09/17/2023) Immunizations Name Administration Dates Next Due COVID-19 [...] encounter Miscellaneous Notes * Telephone Encounter - Marion Ashley OSA - 09/17/2023 8:27 AM EST Spoke with Pt, appt scheduled for 09/24. * Telephone Encounter - Vivienne Sunshine CRNP - 09/16/2023 5:38 AM EST Patient should be seen in the office for better understanding of what's really happening. Does anyone have an appointment over the next week? * Telephone Encounter - Mary Kay Rivera LPN - 09/15/2023 10:59 AM EST Cardiac rehab calling to report continued low bp and dizziness. Pt cancelled Wednesday & today sessions d/t not feeing well and dizziness. Amlodipine reduced 2.5mg on 09/09/23. Called and spoke with pt today to assess symptoms. Didn't sleep well last night. Up most of the night last night. Laying down now. Missed cardiac rehab today d/t symptoms and having a sleepless night last night. Yesterday very dizzy feeling ' unstable.' Usually upon standing but yesterday at a store became dizzy when looking up/reaching on a top shelf. Had some "angina" yesterday too. Wearing nitro patch. Admits to eating popcorn yesterday and could be heartburn. Believes home BP are good, "nothing below 90 on the top number." Wants it documented that he hasn't had any alcohol since 08/04/23, updated history. He would like be able to continue with cardiac rehab, disappointed he's having these spells. Advised pt to contact office with worsening symptoms. documented in this encounter Plan of Treatment Upcoming Encounters Date Type Department Care Team (Latest Contact Info) Description 09/24/2023 10:30 AM EST Office Visit Cardiology, [facility] [address] [facility] [place] [address] Jil Farris PA-C [address] [place] [address] [place] [address] 11/10/2023 11:00 AM EDT Office Visit Cardiology, [facility] [address] [place] [address] Vivienne Sunshine CRNP [address] [place] [address] 12/10/2023 9:20 AM EDT Office Visit [facility] [address] [place] [address] Adelia Pressley CRNP [address] [place] [address] 01/12/2024 12:00 PM EDT Office Visit [facility] [address] [place] [address] Miguel Suarez MD [address] [place] [address] 01/14/2024 2:30 PM EDT Hospital Encounter ENDO [facility], Endoscopy Room [facility] [address] [place] [phone] Milvia Arnold MD [address] [place] [address] 01/14/2024 2:30 PM EDT - 01/14/2024 3:00 PM EDT Surgery ENDO [facility], Endoscopy Room [facility] [address] [place] [phone] Milvia Arnold MD [address] [place] [address] COLONOSCOPY FLEXIBLE PROXIMAL DIAGNOSTIC 07/21/2024 10:00 AM EST Nurse Only Ancillary [facility] [address] [place] [address] [facility], Nurse Annual Wellness [facility] [address] [place] [address] Scheduled Procedures Name Priority Associated Diagnoses Date/Ti [...] this encounter Medical Devices Implanted Type Area Urinalysis Technician Device Identifier Shelf Expiration Date Model / Serial / Lot Stent Synergy Xd Mr [id number] - [id number] Implanted:Qty: 1 on 11/24/2022 by Johnny Schofield MD at [facility] [employer] [id number] 07/24/2023 [id number] / / [id number] documented as of this encounter Advance Directives [...] the patient have Health Care Power of Bulk Plant Manager? No Care Teams Final Inspector And Tester Relationship Specialty Start Date End Date Miguel Suarez MD [address] [place] [address] PCP - General Family Medicine 07/25/14 documented as of this encounter
--- OUTSIDE RECORDS SUMMARY | 2024-01-24 09:07 | External Medical Summary | Summary of Care ---
Author Name Unknown Organization [facility] Address [address] [facility] [place] [address] Phone [phone] Care Team Providers Care Propulsion Generator Repairer Name Role Phone Miguel Suarez MD Primary Care Provider + Reason for Visit * Reason Onset Date Comments Advice 09/06/2023 Encounter Details Date Type Department Care Team (Late st Contact Info) Description 09/06/2023 Telephone Family Practice [facility] [address] [place] [address] Miguel Suarez MD [address] [place] [address] Advice Allergies Active Allergy Reactions Criticality Noted Date Comments Atorvastatin 03/04/2018 Myalgia Fluticasone Furoate-Vilanterol 12/24/2021 Tightness in chest Rosuvastatin Calcium 03/04/2018 myalgia Iodinated Contrast Media Anaphylaxis,Itching High 04/26/2008 Contrast dye Other Allergy (See Comments) 04/24/2022 Product Containing 2-irzrrhu-8-methylgl utaryl-coenzyme A Reductase Inhibitor (product) Simvastatin 03/04/2018 myalgia documented as of this encounter (statuses as of 09/07/2023) Medications Medication Sig Dispensed Refills Start Date [...] Sublingual Tablet Sublingual (Nitrostat)Indica tions:Atheroscler osis of [place] coronary artery of [place] heart with other form of angina pectoris (HCC),Exertional angina,Coronary artery disease involving coronary bypass graft of [place] heart with angina pectoris (HCC) PLACE 1 [...] 50 MCG/ACT Nasal Suspension (Flonase) Administer 1 [place] into nostril daily as needed. 0 Active [...] (pLAVix)Indicatio ns:Atherosclerosi s of coronary artery of [place] heart with stable angina pectoris, unspecified vessel or lesion type (HCC),Cerebrovasc ular disease, arteriosclerotic, post-stroke TAKE 1 TABLET BY MOUTH EVERY DAY 90 Tablet 3 06/22/2023 Active predniSONE 10 MG Oral Tablet (Deltasone) Take 1 Tablet by mouth in the morning. Follow taper instructions. 0 08/16/2023 Active Pantoprazole Sodium 40 MG Oral Tablet Delayed Release (Protonix) TAKE 1 TABLET BY MOUTH EVERY DAY IN THE MORNING AND AT BEDTIME 180 Tablet 0 09/02/2023 Active amLODIPine Besylate 10 MG Oral Tablet (Norvasc) Take 0.5 Tablets by mouth in the morning. 0 09/07/2023 Active amLODIPine Besylate 10 MG Oral Tablet (Norvasc) Take 1 Tablet by mouth in the morning. 90 Tablet 3 12/22/2022 Discontinue d(Refill) documented as of this encounter (statuses as of 09/07/2023) Active Problems Problem Noted Date Diagnosed Date [...] adult exam 04/12/2019 Overview: Daughter-Sherly. 03/31 inferior [place]? Cath- no new lesions of CABG. 12/29 TTE [facility] similar. 11/28 new stent. TTE 45-49%. Mod wall motion abn. Mild AR. Mild dilated A root/ascend 10/28 6MWT ok. 10/27 UE EMG ok. 2017 colon 2mm polyp. Mak 5y 2013 colon CA Chronic major depressive disorder, recurrent epi sode 04/12/2019 Atherosclerosis of [place] co ronary artery of [place] heart with stable angina pectoris 07/06/2018 Lung nodules 05/28/2018 Splenomegaly 04/09/2018 History of colon cancer 04/08/2018 Statin intolerance 01/29/2018 Stable angina 02/01/2017 Coronary artery disease invo lving coronary bypass graft of [place] heart with angina pectoris 09/14/2016 S/P angioplasty [...] bowel obstruction) Overview: 04/23 admit. 11/21 [facility] improved w/NPO. Cont ETOH abuse documented as of this encounter (statuses as of 09/07/2023) Resolved Problems Problem Noted Date Diagnosed Date Resolved Date Acute ST elevation myocardia l infarction (STEMI) 11/21/2022 11/26/2022 COPD, group A, by GOLD 2017 classification 11/20/2019 11/14/2021 Overview: Per COPD GOLD Classification COPD, mild 07/09/2018 11/23/2019 Overview: 2018 PFTs mild obstruction. Breo started--feels breathing is better. Thrombocytopenia 07/06/2018 10/25/2019 Exertional angina 10/22/2016 01/01/2017 Coronary atherosclerosis of [place] coronary artery 12/26/2013 03/22/2019 Colon cancer 10/06/2013 08/18/2017 Cancer Staging:Clinical:Stage IIIA(T1, N1, M0) - Signed by Aiden Beauchamp MD on 11/24/2013 Pathologic: Unsigned Overview: 09/29/13 S/p partial sigmoid colectomy-Dr Steiner. Pathologic stage pT1N1a. (metastatic adenocarcinoma 08/25 nodes, invading submucosa) Pre-op testing 09/13/2013 02/25/2017 Routine general medical exam ination at a health care facility 01/25/2013 05/30/2018 Overview: 03/26 CT chest [facility] 6mm nodule. Mak 6mo ordered. 11/24 stopped crestor-myalgias. 08/25 CONSIDER EGD? 10/24 colon-2mm polyp PATH tubular adenoma. Mak 5y Preconetmplative to cut back ETOH. Stable low plat/wbc. 05/24 periph smear done ok. Colonoscopy 09/[address] Sebastian-for Synvisc Needs HARRIET fall 08/22 25mm colon polyp--Path---cancer--resected. 01/19 prostate discussed-declined 11/29/12 RUQ US @ [place]--possible fatty infiltrate 11/11/12 [place]-- T -1.0 hip 07/20 Rib Xray-Right 7-9th rib frx 04/01/10CT [place]-mild osteophytes 2007 colonoscopy-[place]. 08/14/03. Colonoscopy-The polyp at 45 cm showed moderate atypia. 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 TIA (transient ischemic attack) 02/25/2017 documented as of this encounter (statuses as of 09/07/2023) Immunizations Name Administration Dates Next Due COVID-19 [...] encounter Miscellaneous Notes * Telephone Encounter - Vishal Em RN - 09/07/2023 3:32 PM EST Called, left message for patient to return call to the dedicated nurse call center. Please see Ned's previous message. * Telephone Encounter - Ned Wynne CRNP - 09/07/2023 1:01 PM EST There was another encounter sent by another nurse and I reviewed with Dr. Suarez. 106/69 p 64 sitting 175/59 pulse 80 standing No need to adjust bp med now. Continue 5mg for now, follow up with Adelia on 09/09. He can bring the BP cuff. * Addendum Note - Vishal Em RN - 09/07/2023 12:57 PM ESTAddended by: VISHAL EM on: 09/07/2023 12:57 PM Modules accepted: Orders * Telephone Encounter - Vishal Em RN - 09/07/2023 12:51 PM EST Called patient and informed him of Ned's previous message. He verbalized understanding. Reviewed patient's medication list with and confirmed he is taking all medications as listed on current med list except he is taking 5 mg amlodipine. Patient also said he has not taken the lasix for a long time. Medication list updated. Patient is agreeable to taking 2.5 mg amlodipine, requesting new prescription for that dose to be sent to the pharmacy. Pharmacy confirmed. Medication order pended for review and signature if agree. Patient said he had to reschedule the colonoscopy for January 2024. Patient also had cancelled his appointment with Ned and is now scheduled to see Adelia on 09/09/2023. * Telephone Encounter - Ned Wynne CRNP - 09/07/2023 10:34 AM EST Is he still terazosin? What blood pressure meds he is taking? Please update patient's current medication list. If his BP is 80-94/50-60 on 5 mg amlodipine, he can cut it down to 2.5mg. GI RN messaged me to preop evaluation, but I believe he needs to be cleared by cardiology. He is currently schedule for 20 minutes acute visit for hospital discharge follow up. * Telephone Encounter - Perla Merchant LPN - 09/06/2023 11:31 AM EST Pt calling back. No dizziness or lightheaded currently. Scheduled appt with Ned Wynne on 09/08 at 10 am. * Telephone Encounter - Sheree Tan OSA - 09/06/2023 11:27 AM EST Reason for patient's call: pt is returning phone call Caller was transferred to [place] at the nurse line. * Telephone Encounter - Marisol Madrigal LPN - 09/06/2023 11:14 AM EST Patient calling in stating that he is having low BP issues. Ranges: 80-94/50-60 He stated that he can feel when it drops. He stated that he drinks water Went to the ER last Friday 09/01 due to low BP concerns, he was having dizziness and weakness. Hestated that they cut his Amlodipine down to half and is not taking 5 mg. He stated that it has not made much of a difference. Advised that he should make a BP follow up appt. 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 Attempted to call him back to get more details on how he is feeling today butsounded like he answered but unable to understand anything. * Telephone Encounter - Briana Bryant LPN - 09/06/2023 11:04 AM EST Tried to call pt, had to leave message that we were calling him back and to call us. * Telephone Encounter - Jossy Cordero OSA - 09/06/2023 9:24 AM EST Patient called in wanting to speak to pcp regarding low blood pressure and would like some answers.Please follow up with the patient. documented in this encounter Plan of Treatment Upcoming Encounters Date Type Department Care Team (Latest Contact Info) Description 09/09/2023 8:40 AM EST Office Visit [facility] [address] [place] [address] Adelia Pressley CRNP [address] [place] [address] 11/10/2023 11:00 AM EDT Office Visit Cardiology, [facility] [address] [place] [address] Vivienne Sunshine CRNP [address] [place] [address] 01/12/2024 12:00 PM EDT Office Visit Family Practice [facility] [address] [place] [address] Miguel Suarez MD [address] [place] [address] 01/14/2024 2:30 PM EDT Hospital Encounter ENDO OSSC, Endoscopy Room [facility] [address] [place] [phone] Milvia Arnold MD [address] [place] [address] 01/14/2024 2:30 PM EDT - 01/14/2024 3:00 PM EDT Surgery ENDO OSSC, Endoscopy Room [facility] [address] [place] [address] Milvia Arnold MD [address] [place] [address] COLONOSCOPY FLEXIBLE PROXIMAL DIAGNOSTIC 07/21/2024 10:00 AM EST Nurse Only Ancillary [facility] [address] [place] [address] [facility], Nurse Annual Wellness [facility] [address] [place] [address] Scheduled Procedures Name Priority Associated Diagnoses Date/Ti [...] this encounter Medical Devices Implanted Type Area Reading Interventionist Device Identifier Shelf Expiration Date Model / Serial / Lot Stent Synergy Xd Mr [id number] - [id number] Implanted:Qty: 1 on 11/24/2022 by Johnny Schofield MD at [facility] [employer] [id number] 07/24/2023 [id number] 220 / / [id number] documented as of this encounter Advance Directives [...] the patient have Health Care Power of Brake Repairer Hydraulic? No Care Teams Propulsion Generator Repairer Relationship Specialty Start Date End Date Miguel Suarez MD [address] [facility] [place] [address] PCP - General Family Medicine 07/25/14 documented as of this encounter
--- OUTSIDE RECORDS SUMMARY | 2024-01-24 09:07 | External Medical Summary | Summary of Care ---
Author Name Unknown Organization [facility] Address [address] [facility] [place] [address] Phone [phone] Care Team Providers Care Novelty Maker Name Role Phone Miguel Suarez MD Primary Care Provider + Reason for Visit * Reason Onset Date Comments Advice 09/06/2023 Encounter Details Date Type Department Care Team (Late st Contact Info) Description 09/06/2023 Telephone Family Practice [facility] [address] [place] [address] Miguel Suarez MD [address] [place] [address] Advice Allergies Active Allergy Reactions Criticality Noted Date Comments Atorvastatin 03/04/2018 Myalgia Fluticasone Furoate-Vilanterol 12/24/2021 Tightness in chest Rosuvastatin Calcium 03/04/2018 myalgia Iodinated Contrast Media Anaphylaxis,Itching High 04/26/2008 Contrast dye Other Allergy (See Comments) 04/24/2022 Product Containing 3-ihuvjrq-6-methylgl utaryl-coenzyme A Reductase Inhibitor (product) Simvastatin 03/04/2018 [...] Sublingual Tablet Sublingual (Nitrostat)Indica tions:Atheroscler osis of [place] coronary artery of [place] heart with other form of angina pectoris (HCC),Exertional angina,Coronary artery disease involving 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 0 Active [...] (pLAVix)Indicatio ns:Atherosclerosi s of coronary artery of [place] heart with stable angina pectoris, unspecified vessel [...] adult exam 04/12/2019 Overview: Daughter-Sherly. 03/31 inferior [place]? Cath- no new lesions of CABG. 12/29 TTE [facility] similar. 11/28 new stent. TTE 45-49%. Mod wall motion abn. Mild AR. Mild dilated A root/ascend 10/28 6MWT ok. 10/27 UE EMG ok. 2017 colon 2mm polyp. Mak 5y 2013 colon CA Chronic major depressive disorder, recurrent epi sode 04/12/2019 Atherosclerosis of [place] co ronary artery of [place] heart with stable angina pectoris 07/06/2018 Lung nodules 05/28/2018 Splenomegaly 04/09/2018 History of colon cancer 04/08/2018 Statin intolerance 01/29/2018 Stable angina 02/01/2017 Coronary artery disease invo lving coronary bypass graft of [place] heart with angina pectoris 09/14/2016 S/P angioplasty [...] bowel obstruction) Overview: 04/23 admit. 11/21 [facility] improved w/NPO. Cont ETOH abuse documented [...] 10/22/2016 01/01/2017 Coronary atherosclerosis of [place] coronary artery 12/26/2013 03/22/2019 Colon cancer 10/06/2013 [...] 7-9th rib frx 04/01/10CT neck @[place]-mild osteophytes 2007 colonoscopy-[facility]. 08/14/03. Colonoscopy-The polyp at 45 cm showed moderate atypia. 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 Informed of message. Verbalized understanding. * Telephone Encounter - Vishal Em RN [...] returning phone call Caller was transferred to Perla at the nurse line. * Telephone Encounter [...] a BP follow up appt. 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 Attempted to call him back to get [...] Description 09/09/2023 8:40 AM EST Office Visit [facility] [address] [place] [address] Adelia Pressley CRNP [address] [place] [address] 11/10/2023 11:00 AM EDT Office Visit Cardiology, Health system [address] [place] [address] Vivienne Sunshine CRNP [address] [address] 01/12/2024 12:00 PM EDT Office Visit [facility] [address] [place] [address] Miguel Suarez MD [address] [place] [address] 01/14/2024 2:30 PM EDT Hospital Encounter ENDO OSSC, Endoscopy Room [facility] [address] [place] [address] Milvia Arnold MD [address] [place] [address] 01/14/2024 2:30 PM EDT - 01/14/2024 3:00 PM EDT Surgery ENDO OSSC, Endoscopy Room [facility] [address] [place] [address] Milvia Arnold MD [address] [place] [address] COLONOSCOPY FLEXIBLE PROXIMAL DIAGNOSTIC 07/21/2024 10:00 AM EST Nurse Only Ancillary [facility] [address] [place] [address] Mikel Nurse Annual Wellness [facility] [address] [place] [address] Scheduled Procedures Name Priority Associated Diagnoses Date/Ti [...] this encounter Medical Devices Implanted Type Area Geoint Analyst Device Identifier Shelf Expiration Date Model / Serial / Lot Stent Synergy Xd Mr [id number] - [id number] Implanted:Qty: 1 on 11/24/2022 by Johnny Schofield MD at [facility] [place] [employer] [id number] 07/24/2023 [id number] 220 / / [id number] documented as of this encounter Advance Directives [...] the patient have Health Care Power of Legal Internship? No Care Teams Novelty Maker Relationship Specialty Start Date End Date Miguel Suarez MD [address] [place] [address] PCP - General Family Medicine 07/25/14 documented as of this encounter
--- OUTSIDE RECORDS SUMMARY | 2024-01-24 09:07 | External Medical Summary | Summary of Care ---
Author Name Unknown Organization [facility] Address [address] [facility] [place] [address] Phone [phone] Care Team Providers Care Stock Order Lister Name Role Phone Miguel Suarez MD Primary Care Provider + Reason for Visit * Reason Onset Date Comments Advice 09/06/2023 Encounter Details Date Type Department Care Team (Late st Contact Info) Description 09/06/2023 Telephone Family Practice [facility] [address] [place] [address] Miguel Suarez MD [address] [place] [address] Advice Allergies Active Allergy Reactions Criticality Noted Date Comments Atorvastatin 03/04/2018 Myalgia Fluticasone Furoate-Vilanterol 12/24/2021 Tightness in chest Rosuvastatin Calcium 03/04/2018 myalgia Iodinated Contrast Media Anaphylaxis,Itching High 04/26/2008 Contrast dye Other Allergy (See Comments) 04/24/2022 Product Containing 3-zduazww-5-methylgl utaryl-coenzyme A Reductase Inhibitor (product) Simvastatin 03/04/2018 myalgia documented as of this encounter (statuses as of 09/06/2023) Medications Medication Sig Dispensed Refills Start Date [...] MG Sublingual Tablet Sublingual (Nitrostat)Indicati ons:Atherosclerosis of [place] coronary artery of [place] heart [...] and 1 Tablet before bedtime. 180 Tablet 12/22/2022 Active Sacubitril-Valsarta n 24-26 MG Oral [...] 50 MCG/ACT Nasal Suspension (Flonase) Administer 1 [place] into nostril daily as needed. 0 Active [...] Tablet (pLAVix)Indications :Atherosclerosis of coronary artery of [place] heart with [...] AT BEDTIME 180 Tablet 0 09/02/2023 Active documented as of this encounter (statuses as of 09/06/2023) Active Problems Problem Noted Date Diagnosed Date [...] (small bowel obstruction) Overview: 04/23 admit. 11/21 [facility] improved w/NPO. Cont ETOH abuse documented as of this encounter (statuses as of 09/06/2023) Resolved Problems Problem Noted Date Diagnosed Date [...] US @ [place]--possible fatty infiltrate 11/11/12 [place] @[place]-- T -1.0 hip 07/20 Rib Xray-Right 7-9th rib frx 04/01/10CT neck @[place]-mild osteophytes 2007 colonoscopy-[facility]. 08/14/03. Colonoscopy-The polyp at 45 cm showed moderate atypia. jail current use of ant icoagulant therapy 12/24/2003 11/21/2012 Overview: ICD-10 update of inactive term BENIGN NEOPLASM LG BOWEL 08/31/2003 Calculus of kidney 08/18/2001 8 Coronary atherosclerosis Overview: S/p CABG x5 06/24/1993 VICTORIA-D1-LAD TERRY-RCA SVG-OM1 SVG-OM2 PURE HYPERCHOLESTEROLEM 07/09 Overview: Per Lipid Taxonomy. TIA (transient ischemic attack) 02/25/2017 documented as of this encounter (statuses as of 09/06/2023) Immunizations Name Administration Dates Next Due COVID-19 [...] returning phone call Caller was transferred to [place] at the nurse line. * Telephone Encounter [...] a BP follow up appt. 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 Attempted to call him back to get [...] Department Care Team (Latest Contact Info) Description 09/08/2023 10:00 AM EST Office Visit Family [facility] [address] [place] [address] Ned Wynne CRNP [address] [place] [address] 09/13/2023 9:00 AM EST Hospital Encounter ENDO OSSC, Endoscopy Room [facility] [address] [place] [phone] Milvia Arnold MD [address] [place] [address] 09/13/2023 9:00 AM EST - 09/13/2023 9:30 AM EST Surgery ENDO OSSC, Endoscopy Room [facility] [address] [place] [phone] Milvia Arnold MD [address] [place] [address] COLONOSCOPY FLEXIBLE PROXIMAL DIAGNOSTIC 11/10/2023 11:00 AM EDT Office Visit Cardiology, [facility] [address] [place] [address] Vivienne Sunshine CRNP [address] [place] [address] 01/12/2024 12:00 PM EDT Office Visit Family Practice [facility] [address] [place] [address] Miguel Suarez MD [address] [place] [address] 07/21/2024 10:00 AM EST Nurse Only Ancillary [facility] [address] [place] [address] [facility], Nurse Annual Wellness [facility] [address] [place] [address] Scheduled Procedures Name Priority Associated Diagnoses Date/Ti [...] this encounter Medical Devices Implanted Type Area Battery Container Tester Aluminum Device Identifier Shelf Expiration Date Model / Serial / Lot Stent Synergy Xd Mr [id number] - [id number] Implanted:Qty: 1 on 11/24/2022 by Johnny Schofield MD at [facility] [place] [employer] [id number] 07/24/2023 [id number] 220 / / [id number] documented as of this encounter Advance Directives [...] the patient have Health Care Power of Brick Unloader Tender? No Care Teams Stock Order Lister Relationship Specialty Start Date End Date Miguel Suarez MD [address] [place] [address] PCP - General Family Medicine 07/25/14 documented as of this encounter
--- OUTSIDE RECORDS SUMMARY | 2024-01-24 09:07 | External Medical Summary | Summary of Care ---
Author Name Unknown Organization [facility] Address [address] [facility] [place] [address] Phone [phone] Care Team Providers Care Sales Agent Financial Report Service Name Role Phone Miguel Suarez MD Primary Care Provider + Encounter Details Date Type Department Care Team (Late st Contact Info) Description 09/06/2023 Telephone Family Practice [facility] [address] [place] [address] Ned Wynne CRNP [address] [place] [address] Allergies Active Allergy Reactions Criticality Noted Date Comments Atorvastatin 03/04/2018 Myalgia Fluticasone Furoate-Vilanterol 12/24/2021 Tightness in chest Rosuvastatin Calcium 03/04/2018 myalgia Iodinated Contrast Media Anaphylaxis,Itching High 04/26/2008 Contrast dye Other Allergy (See Comments) 04/24/2022 Product Containing 8-ruettgo-6-methylgl utaryl-coenzyme A Reductase Inhibitor (product) Simvastatin 03/04/2018 [...] Sublingual Tablet Sublingual (Nitrostat)Indica tions:Atheroscler osis of [place] coronary artery of [place] heart with other form of angina pectoris (HCC),Exertional angina,Coronary artery disease involving coronary bypass graft of [place] heart with angina pectoris (HCC) PLACE 1 [...] 50 MCG/ACT Nasal Suspension (Flonase) Administer 1 [place] into nostril daily as needed. 0 Active [...] (pLAVix)Indicatio ns:Atherosclerosi s of coronary artery of [place] heart with stable angina pectoris, unspecified vessel [...] adult exam 04/12/2019 Overview: Daughter-Sherly. 03/31 inferior [place]? Cath- no new lesions of CABG. 12/29 TTE [facility] similar. 11/28 new stent. TTE 45-49%. Mod wall motion abn. Mild AR. Mild dilated A root/ascend 10/28 6MWT ok. 10/27 UE EMG ok. 2017 colon 2mm polyp. 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 08/14/03. Colonoscopy-The polyp at 45 cm showed moderate atypia. 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 Pt not having any current GI issues. Does have hx CRC/polyps. Sched 01/2024. TY * Telephone Encounter - Perla Merchant LPN - 09/07/2023 10:37 AM EST Patient returned call. Informed of message. Verbalized understanding. Changed appt to 09/09 with Adelia Pressley at 8:40 am. Pt indicates BP is getting better, last night about 10 pm BP 106/69 p 64 sitting 175/59 pulse 80 standing * Telephone Encounter - Perla Merchant LPN - 09/07/2023 9:17 AM EST Called pt. No answer. Left message to return call. * Telephone Encounter - Ned Wynne CRNP - 09/06/2023 12:46 PM EST Images from the original note were not included. This patient is double booked on my schedule for some reasons Acute visit for discharge follow up Now he also needs preop visit based on GI message. Please schedule him 40 minute without double book Dena Jones RN Jung, Sanga, CRNP Hello,' Pt sched for PCP appt with you 09/08. He is sched for colonoscopy 09/13. Could you please see if he can be cleared to receive sedation for his scope? Thank you. Dena Jones RN PAT office [facility] documented in this encounter Plan of Treatment Upcoming Encounters Date Type Department Care Team (Latest Contact Info) Description 09/09/2023 8:40 AM EST Office Visit [facility] [address] [place] [address] Adelia Pressley CRNP [address] [place] [address] 11/10/2023 11:00 AM EDT Office Visit Cardiology, [facility] [address] [place] [address] Vivienne Sunshine CRNP [address] [place] [address] 01/12/2024 12:00 PM EDT Office Visit [facility] [address] [place] [address] Miguel Suarez MD [address] [place] [address] 01/14/2024 2:30 PM EDT Hospital Encounter ENDO [facility], Endoscopy Room [facility] [address] [place] [phone] Milvia Arnold MD [address] [address] 01/14/2024 2:30 PM EDT - 01/14/2024 3:00 PM EDT Surgery ENDO [facility], Endoscopy Room [facility] [address] [place] [phone] Milvia Arnold MD [address] [place] [address] COLONOSCOPY FLEXIBLE PROXIMAL DIAGNOSTIC 07/21/2024 10:00 AM EST Nurse Only Ancillary [facility] [address] [place] [address] [facility], Nurse Annual Wellness [place] [address] [place] [address] Scheduled Procedures Name Priority Associated Diagnoses Date/Ti [...] this encounter Medical Devices Implanted Type Area Steam Gigger Device Identifier Shelf Expiration Date Model / Serial / Lot Stent Synergy Xd Mr [id number] - [id number] Implanted:Qty: 1 on 11/24/2022 by Johnny Schofield MD at [facility] [id number] 07/24/2023 [id number] 220 / / [id number] documented as of this encounter Advance Directives [...] the patient have Health Care Power of Plycor Operator? No Care Teams Sales Agent Financial Report Service Relationship Specialty Start Date End Date Miguel Suarez MD [address] [place] [address] PCP - General Family Medicine 07/25/14 documented as of this encounter
--- OUTSIDE RECORDS SUMMARY | 2024-01-24 09:07 | External Medical Summary | Summary of Care ---
Author Name Unknown Organization [facility] Address [address] [facility] [place] [address] Phone [phone] Care Team Providers Care Administration Assistant Name Role Phone Miguel Suarez MD Primary Care Provider + Reason for Visit * Reason Onset Date Comments Advice 09/06/2023 Encounter Details Date Type Department Care Team (Late st Contact Info) Description 09/06/2023 Telephone Family Practice [facility] [address] [place] [address] Miguel Suarez MD [address] [place] [address] Advice Allergies Active Allergy Reactions Criticality Noted Date Comments Atorvastatin 03/04/2018 Myalgia Fluticasone Furoate-Vilanterol 12/24/2021 Tightness in chest Rosuvastatin Calcium 03/04/2018 myalgia Iodinated Contrast Media Anaphylaxis,Itching High 04/26/2008 Contrast dye Other Allergy (See Comments) 04/24/2022 Product Containing 2-nnynuvd-5-methylgl utaryl-coenzyme A Reductase Inhibitor (product) Simvastatin 03/04/2018 [...] MG Sublingual Tablet Sublingual (Nitrostat)Indicati ons:Atherosclerosis of [place] coronary artery of [place] heart with other form of angina pectoris (HCC),Exertional angina,Coronary artery disease involving coronary bypass graft of [place] heart with angina pectoris (HCC) PLACE 1 [...] 50 MCG/ACT Nasal Suspension (Flonase) Administer 1 [place] into nostril daily as needed. 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 11/21 [facility] improved w/NPO. Cont ETOH abuse [...] Exertional angina 10/22/2016 01/01/2017 Coronary atherosclerosis of [place] coronary artery 12/26/2013 03/22/2019 Colon cancer 10/06/2013 08/18/2017 Cancer Staging:Clinical:Stage IIIA(T1, N1, M0) - Signed by Aiden Beauchamp MD on 11/24/2013 Pathologic: Unsigned Overview: 09/29/13 S/p partial sigmoid colectomy-Dr Steiner. Pathologic stage pT1N1a. (metastatic adenocarcinoma 08/25 nodes, invading submucosa) Pre-op testing 09/13/2013 02/25/2017 Routine general medical exam ination at a health care facility 01/25/2013 05/30/2018 Overview: 03/26 CT chest [facility] 6mm nodule. Mak 6mo ordered. 11/24 stopped crestor-myalgias. 08/25 CONSIDER EGD? 10/24 colon-2mm polyp PATH tubular adenoma. Mak 5y Preconetmplative to cut back ETOH. Stable low plat/wbc. 05/24 periph smear done ok. Colonoscopy 09/[address] Sebastian-for Synvisc Needs HARRIET fall 08/22 25mm colon polyp--Path---cancer--resected. 01/19 prostate discussed-declined 11/29/12 RUQ US @ [facility]--possible fatty infiltrate 11/11/12 DEXA @[facility]-- T -1.0 hip 07/20 Rib Xray-Right 7-9th rib frx 04/01/10CT [facility]-mild osteophytes 2007 colonoscopy-WNL. 08/14/03. Colonoscopy-The polyp at 45 cm showed moderate atypia. [facility] current use of ant icoagulant therapy 12/24/2003 [...] encounter Miscellaneous Notes * Telephone Encounter - Ned Wynne CRNP [...] returning phone call Caller was transferred to [place] at the nurse line. * Telephone Encounter [...] a BP follow up appt. 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 back to get [...] 09/08/2023 10:00 AM EST Office Visit Family Practice [facility] [address] [place] [address] Ned Wynne CRNP [address] [place] [address] 09/13/2023 9:00 AM EST Hospital Encounter ENDO [facility], Endoscopy Room [facility] [address] [place] [phone] Milvia Arnold MD [address] [place] [address] 09/13/2023 9:00 AM EST - 09/13/2023 9:30 AM EST Surgery ENDO [facility], Endoscopy Room [facility] [address] [place] [phone] Milvia Arnold MD [address] [place] [address] COLONOSCOPY FLEXIBLE PROXIMAL DIAGNOSTIC 11/10/2023 11:00 AM EDT Office Visit Cardiology, [facility] [address] [place] [address] Vivienne Sunshine CRNP [address] [place] [address] 01/12/2024 12:00 PM EDT Office Visit Family Practice [facility] [address] [place] [address] Miguel Suarez MD [address] [place] [address] 07/21/2024 10:00 AM EST Nurse Only Ancillary [facility] [address] [place] [address] [facility], Nurse Annual Wellness [facility] [address] [place] [address] Scheduled Procedures Name Priority Associated Diagnoses Date/Ti [...] this encounter Medical Devices Implanted Type Area Profiler Device Identifier Shelf Expiration Date Model / Serial / Lot Stent Synergy Xd Mr [id number] - [id number] Implanted:Qty: 1 on 11/24/2022 by Johnny Schofield MD at [facility] [employer] [id number] 07/24/2023 [id number] 220 / / [id number] documented as of this encounter Advance Directives [...] the patient have Health Care Power of Casting Inspector? No Care Teams Administration Assistant Relationship Specialty Start Date End Date Miguel Suarez MD [address] [place] [address] PCP - General Family Medicine 07/25/14 documented as of this encounter
--- OUTSIDE RECORDS SUMMARY | 2024-01-24 09:07 | External Medical Summary | Summary of Care ---
Author Name Unknown Organization [facility] Address [address] [facility] [place] [address] Phone [phone] Care Team Providers Care Mortar Maker Name Role Phone Miguel Suarez MD Primary Care Provider + Reason for Visit * Reason Onset Date Comments Advice 09/06/2023 Encounter Details Date Type Department Care Team (Late st Contact Info) Description 09/06/2023 Telephone Family Practice [facility] [address] [place] [address] Miguel Suarez MD [address] [place] [address] Advice Allergies Active Allergy Reactions Criticality Noted Date Comments Atorvastatin 03/04/2018 Myalgia Fluticasone Furoate-Vilanterol 12/24/2021 Tightness in chest Rosuvastatin Calcium 03/04/2018 myalgia Iodinated Contrast Media Anaphylaxis,Itching High 04/26/2008 Contrast dye Other Allergy (See Comments) 04/24/2022 Product Containing 1-hbjanya-5-methylgl utaryl-coenzyme A Reductase Inhibitor (product) Simvastatin 03/04/2018 [...] Sublingual Tablet Sublingual (Nitrostat)Indica tions:Atheroscler osis of [place] coronary artery of [place] heart with other form of angina pectoris (HCC),Exertional angina,Coronary artery disease involving coronary bypass graft of [place] heart with angina pectoris (HCC) PLACE 1 [...] 50 MCG/ACT Nasal Suspension (Flonase) Administer 1 [place] into nostril daily as needed. 0 Active [...] (pLAVix)Indicatio ns:Atherosclerosi s of coronary artery of [place] heart with stable angina pectoris, unspecified vessel [...] adult exam 04/12/2019 Overview: Daughter-Sherly. 03/31 inferior [place]? Cath- no new lesions of CABG. 12/29 TTE [facility] similar. 11/28 new stent. TTE 45-49%. Mod wall motion abn. Mild AR. Mild dilated A root/ascend 10/28 6MWT ok. 10/27 UE EMG ok. 2017 colon 2mm polyp. 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 08/14/03. Colonoscopy-The polyp at 45 cm showed moderate atypia. 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 * Telephone Encounter [...] a BP follow up appt. 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 Attempted to call him back to get [...] 09/09/2023 8:40 AM EST Office Visit Family [facility] [address] [address] Adelia Pressley CRNP [address] [place] [address] 11/10/2023 11:00 AM EDT Office Visit Cardiology, [facility] [address] [place] [address] Vivienne Sunshine CRNP [address] [place] [address] 01/12/2024 12:00 PM EDT Office Visit Family [facility] [address] [address] Miguel Suaerz MD [address] [place] [address] 01/14/2024 2:30 PM EDT Hospital Encounter ENDO [facility], Endoscopy Room [facility] [address] [place] [phone] Milvia Arnold MD [address] [place] [address] 01/14/2024 2:30 PM EDT - 01/14/2024 3:00 PM EDT Surgery ENDO [facility], Endoscopy Room [facility] [address] [place] [phone] Milvia Arnold MD [address] [place] [address] COLONOSCOPY FLEXIBLE PROXIMAL DIAGNOSTIC 07/21/2024 10:00 AM EST Nurse Only Ancillary [facility] [address] [place] [address] [place], Nurse Annual Wellness [facility] [address] [place] [address] Scheduled Procedures Name Priority Associated Diagnoses Date/Ti [...] this encounter Medical Devices Implanted Type Area Magnetic Prospecting Operator Device Identifier Shelf Expiration Date Model / Serial / Lot Stent Synergy Xd Mr [id number] - [id number] Implanted:Qty: 1 on 11/24/2022 by Johnny Schofield MD at [facility] [place] [place] [employer] [id number] 07/24/2023 [id number] 220 / / [id number] documented as of this encounter Advance Directives [...] patient have Health Care Power of Senior Customer Service Representative? No Care Teams Mortar Maker Relationship Specialty Start Date End Date Miguel Suarez MD [address] [address] PCP - General Family Medicine 07/25/14 documented as of this encounter
--- OUTSIDE RECORDS SUMMARY | 2024-01-24 09:07 | External Medical Summary | Summary of Care ---
Author Name Unknown Organization [facility] Address [address] [facility] [place] [address] Phone [phone] Care Team Providers Care Doubler Helper Name Role Phone Miguel Suarez MD Primary Care Provider + Reason for Visit * Reason Onset Date Comments Advice 09/06/2023 Encounter Details Date Type Department Care Team (Late st Contact Info) Description 09/06/2023 Telephone Family Practice [facility] [address] [place] [address] Miguel Suarez MD [address] [place] [address] Advice Allergies Active Allergy Reactions Criticality Noted Date Comments Atorvastatin 03/04/2018 Myalgia Fluticasone Furoate-Vilanterol 12/24/2021 Tightness in chest Rosuvastatin Calcium 03/04/2018 myalgia Iodinated Contrast Media Anaphylaxis,Itching High 04/26/2008 Contrast dye Other Allergy (See Comments) 04/24/2022 Product Containing 8-qqujfhg-4-methylgl utaryl-coenzyme A Reductase Inhibitor (product) Simvastatin 03/04/2018 [...] Sublingual Tablet Sublingual (Nitrostat)Indica tions:Atheroscler osis of [place] coronary artery of [place] heart with other form of angina pectoris (HCC),Exertional angina,Coronary artery disease involving coronary bypass graft of [place] heart with angina pectoris (HCC) PLACE 1 [...] 50 MCG/ACT Nasal Suspension (Flonase) Administer 1 [place] into nostril daily as needed. 0 Active [...] (pLAVix)Indicatio ns:Atherosclerosi s of coronary artery of [place] heart with stable angina pectoris, unspecified vessel [...] adult exam 04/12/2019 Overview: Daughter-Sherly. 03/31 inferior [place]? Cath- no new lesions of CABG. 12/29 TTE [facility] similar. 11/28 new stent. TTE 45-49%. Mod wall motion abn. Mild AR. Mild dilated A root/ascend 10/28 6MWT ok. 10/27 UE EMG ok. 2017 colon 2mm polyp. 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 11/21 [facility] improved w/NPO. Cont ETOH abuse [...] Exertional angina 10/22/2016 01/01/2017 Coronary atherosclerosis of [place] coronary artery 12/26/2013 03/22/2019 Colon cancer 10/06/2013 08/18/2017 Cancer Staging:Clinical:Stage IIIA(T1, N1, M0) - Signed by Aiden Beauchamp MD on 11/24/2013 Pathologic: Unsigned Overview: 09/29/13 S/p partial sigmoid colectomy-Dr Steiner. Pathologic stage pT1N1a. (metastatic adenocarcinoma 08/25 nodes, invading submucosa) Pre-op testing 09/13/2013 02/25/2017 Routine general medical exam ination at a health care facility 01/25/2013 05/30/2018 Overview: 03/26 CT chest [facility] 6mm nodule. Mak 6mo ordered. [...] polyp at 45 cm showed moderate atypia. 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 * Telephone Encounter [...] a BP follow up appt. 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 to get [...] 09/09/2023 8:40 AM EST Office Visit Family Practice [facility] [address] [facility] [place] [address] Adelia Pressley CRNP [address] [facility] [place] [address] 11/10/2023 11:00 AM EDT Office Visit Cardiology, [facility] [address] [place] [address] Vivienne Sunshine CRNP [address] [place] [address] 01/12/2024 12:00 PM EDT Office Visit Family Practice [facility] [address] [place] [address] Miguel Suarez MD [address] [place] [address] 01/14/2024 2:30 PM EDT Hospital Encounter ENDO [facility], Endoscopy Room [facility] [address] [place] [phone] Milvia Arnold MD [address] [place] [address] 01/14/2024 2:30 PM EDT - 01/14/2024 3:00 PM EDT Surgery ENDO [facility], Endoscopy Room [facility] [address] [phone] Milvia Arnold MD [address] [place] [address] COLONOSCOPY FLEXIBLE PROXIMAL DIAGNOSTIC 07/21/2024 10:00 AM EST Nurse Only Ancillary [facility] [address] [place] [address] [facility], Nurse Annual Wellness [facility] [address] [place] [address] Scheduled Procedures Name Priority Associated Diagnoses Date/Ti me COLONOSCOPY FLEXIBLE PROXIMAL DIAGNOSTIC History of colon polyps History of colon cancer 01/14/2024 2:30 PM EDT Health Maintenance Due Date Last Done Comments COLONOSCOPY-EVERY 5 YRS AGES 18-100 10/20/2022 10/20/2017, 10/20/2017, 10/01/2014, Additional history exists COVID-19 Vaccine (7 - 2023-24 season) 2023 07/21/2021, 07/21/2021, 10/16/2020, Additional history [...] this encounter Medical Devices Implanted Type Area Freezer Worker Device Identifier Shelf Expiration Date Model / Serial / Lot Stent Synergy Xd Mr [id number] - [id number] Implanted:Qty: 1 on 11/24/2022 by Johnny Schofield MD at [facility] [employer] [id number] 07/24/2023 [id number] 220 / / [id number] documented as of this encounter Advance Directives [...] the patient have Health Care Power of Solder Cream Maker? No Care Teams Doubler Helper Relationship Specialty Start Date End Date Miguel Suarez MD [address] [place] [address] PCP - General Family Medicine 07/25/14 documented as of this encounter
--- OUTSIDE RECORDS SUMMARY | 2024-01-24 09:08 | External Medical Summary ---
Author Name Unknown Address Unknown Organization K01:LABORATORY [facility] - [address] [place] [address] Laboratory Report Ordering Provider Test Date Status RODNEY SWAIN 09/06/2023 10:41:24 Final Observation Date Value Abnormality Reference (Units ) Status Vitamin B12 09/06/2023 10:41:24 [phone] (pg/mL) Final Performing Location LABORATORY [facility] - [address] [place] [address]
--- OUTSIDE RECORDS SUMMARY | 2024-01-24 09:08 | External Medical Summary | Summary of Care ---
Author Name Unknown Organization [facility] Address [address] [facility] [place] [address] Phone [phone] Care Team Providers Care Beater Worker Helper Name Role Phone Miguel Suarez MD Primary Care Provider + Encounter Details Date Type Department Care Team (Late st Contact Info) Description 09/03/2023 Orders Only PATIENT PORTAL DO NOT DELETE THIS DEPT USED BY [place] [id number] Allergies Active Allergy Reactions Criticality Noted Date Comments Atorvastatin 03/04/2018 Myalgia Fluticasone Furoate-Vilanterol 12/24/2021 Tightness in chest Rosuvastatin Calcium 03/04/2018 myalgia Iodinated Contrast Media Anaphylaxis,Itching High 04/26/2008 Contrast dye Other Allergy (See Comments) 04/24/2022 Product Containing 4-eltclww-1-methylgl utaryl-coenzyme A Reductase Inhibitor (product) Simvastatin 03/04/2018 myalgia documented as of this encounter (statuses as of 09/03/2023) Medications Medication Sig Dispensed Refills Start Date [...] Sublingual Tablet Sublingual (Nitrostat)Indicat ions:Atheroscleros is of [place] coronary artery of [place] heart with other form of angina pectoris (HCC),Exertional angina,Coronary artery disease involving coronary bypass graft of [place] heart with angina pectoris (HCC) PLACE 1 [...] 50 MCG/ACT Nasal Suspension (Flonase) Administer 1 [place] into nostril daily as needed. 0 Active [...] Tablet (pLAVix)Indication s:Atherosclerosis of coronary artery of [place] heart with stable angina pectoris, unspecified vessel or lesion type (HCC),Cerebrovascu lar disease, arteriosclerotic, post-stroke TAKE 1 TABLET BY MOUTH EVERY DAY 90 Tablet 3 06/22/2023 Active predniSONE 10 MG Oral Tablet (Deltasone) Take 1 Tablet by mouth in the morning. Follow taper instructions. 0 08/16/2023 Active Terazosin HCl 5 MG Oral Capsule (Hytrin) Take 1 Capsule by mouth at bedtime for 14 days. 14 Capsule 0 08/20/2023 09/03/2023 Active Pantoprazole Sodium 40 MG Oral Tablet Delayed Release (Protonix) TAKE 1 TABLET BY MOUTH EVERY DAY IN THE MORNING AND AT BEDTIME 180 Tablet 0 09/02/2023 Active documented as of this encounter (statuses as of 09/03/2023) Active Problems Problem Noted Date Diagnosed Date [...] no new lesions of CABG. 12/29 TTE [facility] similar. 11/28 new stent. TTE 45-49%. Mod wall motion abn. Mild AR. Mild dilated A root/ascend 10/28 6MWT ok. 10/27 UE EMG ok. 2017 colon 2mm polyp. Mak 5y 2013 colon CA Chronic major depressive disorder, recurrent epi sode 04/12/2019 Atherosclerosis of [place] co ronary artery of [place] heart with stable angina pectoris 07/06/2018 Lung nodules 05/28/2018 Splenomegaly 04/09/2018 History of colon cancer 04/08/2018 Statin intolerance 01/29/2018 Stable angina 02/01/2017 Coronary artery disease invo lving coronary bypass graft of [place] heart with angina pectoris 09/14/2016 S/P angioplasty [...] (small bowel obstruction) Overview: 04/23 admit. 11/21 [facility] improved w/NPO. 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 Breo started--feels breathing is better. Thrombocytopenia 07/06/2018 10/25/2019 Exertional angina 10/22/2016 01/01/2017 Coronary atherosclerosis of [place] coronary artery 12/26/2013 03/22/2019 Colon cancer 10/06/2013 [...] 01/19 prostate discussed-declined 11/29/12 [facility] infiltr[facility] 11/11/12 [facility]-- T -1.0 [...] as of this encounter (statuses as of 09/03/2023) Immunizations Name Administration Dates Next Due COVID-19 [...] EST Hospital Encounter ENDO [facility], Endoscopy Room [facility] [address] [phone] Milvia Aronld MD [address] [place] [address] 09/13/2023 9:00 AM EST - 09/13/2023 9:30 AM EST Surgery ENDO [facility], Endoscopy Room [facility] [address] [place] [address] [phone] Milvia Arnold MD [address] [place] [address] COLONOSCOPY FLEXIBLE PROXIMAL DIAGNOSTIC 11/10/2023 11:00 AM EDT Office Visit Cardiology, [facility] [address] [address] [address] Vivienne Sunshine CRNP [address] [address] 01/12/2024 12:00 PM EDT Office Visit Family Practice [facility] [address] [address] Miguel Suarez MD [address] [place] [address] 07/21/2024 10:00 AM EST Nurse Only Ancillary [facility] [address] [place] [address] [facility], Nurse Annual Wellness [facility] [place] [address] [place] [address] Scheduled Procedures Name Priority Associated Diagnoses Date/Ti [...] this encounter Medical Devices Implanted Type Area Shuttle Car Operator Device Identifier Shelf Expiration Date Model / Serial / Lot Stent Synergy Xd Mr [id number] - [id number] Implanted:Qty: 1 on 11/24/2022 by Johnny Schofield MD at [facility] [place] [employer] [id number] 07/24/2023 [id number] / / [id number] documented as of this encounter Advance Directives [...] the patient have Health Care Power of Equipment Maintenance Superintendent? No Care Teams Beater Worker Helper Relationship Specialty Start Date End Date Miguel Suarez MD [address] [facility] [place] [address] PCP - General Family Medicine 07/25/14 documented as of this encounter
--- OUTSIDE RECORDS SUMMARY | 2024-01-24 09:08 | External Medical Summary | Summary of Care ---
Author Name Unknown Organization [facility] Address [address] [facility] [place] [address] Phone [phone] Care Team Providers Care Hydrochloric Manufacturing Supervisor Name Role Phone Miguel Maki MD Primary Care Provider + Reason for Visit * Reason Comments eRx-Medication Refill Encounter Details Date Type Department Care Team (Late st Contact Info) Description 08/31/2023 Refill Gastroenterology, [facility] [address] [facility] [place] [address] Cora Lee CRNP [address] [facility] [place] [address] Encounter for long-term (current) use of medications* Allergies Active Allergy Reactions Criticality Noted Date Comments Atorvastatin 03/04/2018 Myalgia Fluticasone Furoate-Vilanterol 12/24/2021 Tightness in chest Rosuvastatin Calcium 03/04/2018 myalgia Iodinated Contrast Media Anaphylaxis,Itching High 04/26/2008 Contrast dye Other Allergy (See Comments) 04/24/2022 Product Containing 4-ufrnzqr-9-methylgl utaryl-coenzyme A Reductase Inhibitor (product) Simvastatin 03/04/2018 [...] Sublingual Tablet Sublingual (Nitrostat)Indica tions:Atheroscler osis of [place] coronary artery of [place] heart with other form of angina pectoris (HCC),Exertional angina,Coronary artery disease involving coronary bypass graft of [place] heart with angina pectoris (HCC) PLACE 1 [...] 50 MCG/ACT Nasal Suspension (Flonase) Administer 1 [place] into nostril daily as needed. 0 Active Famotidine 20 MG Oral Tablet (Pepcid)Indicatio ns:Chronic nausea TAKE 1 TABLET BY MOUTH EVERY DAY IN THE MORNING AND BEFORE BEDTIME 180 Tablet 3 3 Active Alirocumab 150 MG/ML Subcutaneous Solution Auto-injector Inject 150 mg under the skin every 14 days. 6 mL 3 3 Active Clopidogrel Bisulfate 75 MG Oral Tablet (pLAVix)Indicatio ns:Atherosclerosi s of coronary artery of am[place] heart with stable angina pectoris, unspecified vessel or lesion type (HCC),Cerebrovasc ular disease, arteriosclerotic, post-stroke TAKE 1 TABLET BY MOUTH EVERY DAY 90 Tablet 3 3 Active predniSONE 10 MG Oral Tablet (Deltasone) Take 1 Tablet by mouth in the morning. Follow taper instructions. 0 4 Active Pantoprazole Sodium 40 MG Oral Tablet Delayed Release (Protonix) TAKE 1 TABLET BY MOUTH EVERY DAY IN THE MORNING AND AT BEDTIME 180 Tablet 0 4 Active Pantoprazole Sodium 40 MG Oral Tablet Delayed Release (Protonix) TAKE 1 TABLET BY MOUTH EVERY DAY IN THE MORNING AND BEFORE BEDTIME 180 Tablet 0 3 09/02/19 24 Discontinued Terazosin HCl 5 MG Oral Capsule (Hytrin) Take 1 Capsule by mouth at bedtime for 14 days. 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 11/21 [facility] improved w/NPO. Cont ETOH abuse documented [...] Exertional angina 10/22/2016 01/01/2017 Coronary atherosclerosis of ambler coronary artery 12/26/2013 03/22/2019 Colon cancer 10/06/2013 08/18/2017 Cancer Staging:Clinical:Stage IIIA(T1, N1, M0) - Signed by Aiden Beauchamp MD on 11/24/2013 Pathologic: Unsigned Overview: 09/29/13 S/p partial sigmoid colectomy-Dr Steiner. Pathologic stage pT1N1a. (metastatic adenocarcinoma 08/25 nodes, invading submucosa) Pre-op testing 09/13/2013 02/25/2017 Routine general medical exam ination at a health care facility 01/25/2013 05/30/2018 Overview: 03/26 CT chest [facility] 6mm nodule. Mak 6mo ordered. 11/24 stopped crestor-myalgias. 08/25 CONSIDER EGD? 10/24 colon-2mm polyp PATH tubular adenoma. Mak 5y Preconetmplative to cut back ETOH. Stable low plat/wbc. 05/24 periph smear done ok. Colonoscopy 09/[address] Sebastian-for Synvisc Needs HARRIET fall 08/22 25mm colon polyp--Path---cancer--resected. 01/19 prostate discussed-declined 11/29/12 RUQ US @ [place]--possible fatty infiltrate 11/11/12 [place]-- T -1.0 hip 07/20 Rib Xray-Right 7-9th rib frx 04/01/10CT [place]-mild osteophytes 2007 colonoscopy-WNL. 08/14/03. Colonoscopy-The polyp at 45 cm showed moderate atypia. lobsterman current use of ant icoagulant therapy 12/24/2003 [...] Telephone Encounter - Miguel Maki MD - 09/02/2023 3:26 PM ESTSigned Prescriptions: Disp Refills Pantoprazole Sodium 40 MG Oral Tablet Ana*180 Ta*0 Sig: TAKE 1 TABLET BY MOUTH EVERY DAY IN THE MORNING AND AT BEDTIME Authorizing Provider: MIGUEL MAKI * Telephone Encounter - Miguel Maki MD - 09/02/2023 3:26 PM EST Needs update B12 lab for his refill Please schedule this month. Refill sent * Telephone Encounter - Nery Holt OSA - 09/02/2023 1:14 PM EST Pt called back. Pt stated that he will just follow up with his PCP office refills.. * Telephone Encounter - Nery Holt OSA - 09/02/2023 12:05 PM EST LMOM * Telephone Encounter - Lindsey Zhang LPN - 09/02/2023 10:02 AM ESTPending Prescriptions: Disp Refills Pantoprazole Sodium 40 MG Oral Tablet Ana*180 Ta*1 Sig: TAKE 1 TABLET BY MOUTH EVERY DAY IN THE MORNING AND AT BEDTIME * Telephone Encounter - Lindsey Zhang LPN - 09/02/2023 10:01 AM EST Scheduling, Please advise this patient that they need to be seen in the office prior to any further refills or they can follow up with their pcp. Last office visit 04/24/2022 Last procedure Medication they are trying to fill protonix * Telephone Encounter - Opal Scott [facility] - 09/01/2023 11:35 AM ESTPending Prescriptions: Disp Refills Pantoprazole Sodium 40 MG Oral Tablet Ana*180 Ta*1 Sig: TAKE 1 TABLET BY MOUTH EVERY DAY IN THE MORNING AND AT BEDTIME * Telephone Encounter - Opal Scott [facility] - 09/01/2023 11:32 AM EST Unable to authorize medication refills for pended medication(s) at this time. Part of the protocol criteria used for refill authorization was not satisfied. Patient needs visit within 12 months. Please approve if appropriate. ThanksOpal, PharmD Clinical Pharmacist [facility] ([facility]) (formerly Telepharmacy) [phone] 09/01/2023, 11:34 AM documented in this encounter Plan of Treatment Upcoming Encounters Date Type Department Care Team (Latest Contact Info) Description 09/13/2023 9:00 AM EST Hospital Encounter ENDO [facility], Endoscopy Room [facility] [address] [phone] Milvia Arnold MD [address] [address] 09/13/2023 9:00 AM EST - 09/13/2023 9:30 AM EST Surgery ENDO [facility], Endoscopy Room [facility] [address] [phone] Milvia Arnold MD [address] [address] COLONOSCOPY FLEXIBLE PROXIMAL DIAGNOSTIC 11/10/2023 11:00 AM EDT Office Visit Cardiology, [facility] [address] [place] [address] Vivienne Sunshine CRNP [address] [place] [address] 01/12/2024 12:00 PM EDT Office Visit Family Practice [facility] [address] [facility] [place] [address] Miguel Maki MD [address] [place] [address] 07/21/2024 10:00 AM EST Nurse Only Ancillary [facility] [address] [facility] [place] [address] [facility], Nurse Annual Wellness [facility] [address] [facility] [place] [address] Scheduled Orders Name Type Priority Associated Diagnoses Orde r Schedule VITAMIN B12 Lab Routine Encounter for long-term (current) use of medications Expected: 09/08/2023 (Approximate), Expires: 09/01/2024 Scheduled Procedures Name Priority Associated Diagnoses Date/Ti [...] this encounter Medical Devices Implanted Type Area Rn Patient Services Device Identifier Shelf Expiration Date Model / Serial / Lot Stent Synergy Xd Mr [id number] - [id number] Implanted:Qty: 1 on 11/24/2022 by Johnny Schofield MD [place] [facility] [place] [employer] [id number] 07/24/2023 [id number] / / [id number] documented as of this encounter Visit Diagnoses Diagnosis Encounter for long-term (current) use of medications- Primary Encounter for long-term (current) use of other medications History of colon polyps Personal history of [...] the patient have Health Care Power of C Engineer? No Care Teams Hydrochloric Manufacturing Supervisor Relationship Specialty Start Date End Date Miguel Maki MD [address] [address] [address] PCP - General Family Medicine 07/25/14 documented as of this encounter
--- OUTSIDE RECORDS SUMMARY | 2024-01-24 09:08 | External Medical Summary | Summary of Care ---
Author Name Unknown Organization [facility] Address [address] [facility] [place] [address] Phone [phone] Care Team Providers Care Fence Erector Name Role Phone Miguel Suarez MD Primary Care Provider + Reason for Visit * Reason Onset Date Comments Advice 09/06/2023 Encounter Details Date Type Department Care Team (Late st Contact Info) Description 09/06/2023 Telephone Family Practice [facility] [address] [place] [address] Miguel Suarez MD [address] [place] [address] Advice Allergies Active Allergy Reactions Criticality Noted Date Comments Atorvastatin 03/04/2018 Myalgia Fluticasone Furoate-Vilanterol 12/24/2021 Tightness in chest Rosuvastatin Calcium 03/04/2018 myalgia Iodinated Contrast Media Anaphylaxis,Itching High 04/26/2008 Contrast dye Other Allergy (See Comments) 04/24/2022 Product Containing 1-uqqitgo-2-methylgl utaryl-coenzyme A Reductase Inhibitor (product) Simvastatin 03/04/2018 [...] 50 MCG/ACT Nasal Suspension (Flonase) Administer 1 [place] into nostril daily as needed. 0 [...] (small bowel obstruction) Overview: 04/23 admit. 11/21 [facility] improved w/NPO. Cont ETOH abuse [...] facility 01/25/2013 05/30/2018 Overview: 03/26 CT chest [facility] 6mm nodule. Mak 6mo ordered. 11/24 stopped crestor-myalgias. 08/25 CONSIDER EGD? 10/24 colon-2mm polyp PATH tubular adenoma. Mak 5y Preconetmplative to cut back ETOH. Stable low plat/wbc. 05/24 periph smear done ok. Colonoscopy 09/[address]NL[address] Mak [address] Dr Sebastian-for Synvisc Needs HARRIET fall 08/22 25mm colon polyp--Path---cancer--resected. 01/19 prostate discussed-declined 11/29/12 [place]Q US [place]--possible fatty infiltr[place] 11/11[place]12 [place]-- T -1.0 hip 07/20 Rib Xray-Right 7-9th rib frx 04/[place]-m[place]oph[place] 2007 colonoscopy-WNL. 08/14/03. Colonoscopy-The polyp at 45 cm showed moderate atypia. half-way current use of ant icoagulant therapy 12/24/2003 [...] or lightheaded currently. Scheduled appt with Ned yWnne on 09/08 at 10 am. * Telephone Encounter - Sheree Tan OSA - 09/06/2023 11:27 AM EST Reason for patient's call: pt is returning phone call Caller was transferred to [place] at the nurse line. * Telephone Encounter [...] a BP follow up appt. Lost patient business information manager. Attempted to call him back to [...] 09/08/2023 10:00 AM EST Office Visit Family [facility] [address] [place] [address] Ned Wynne CRNP [address] [place] [address] 09/13/2023 9:00 AM EST Hospital Encounter ENDO OSS[facility], Endoscopy Room [facility] [address] [place] [phone] Milvia Arnold MD [address] [place] [address] 09/13/2023 9:00 AM EST - 09/13/2023 9:30 AM EST Surgery ENDO O[facility], Endoscopy Room [facility] [address] [place] [phone] Milvia Arnold MD [address] [place] [address] COLONOSCOPY FLEXIBLE PROXIMAL DIAGNOSTIC 11/10/2023 11:00 AM EDT Office Visit Cardiology, [facility] [address] [place] [address] Vivienne Sunshine CRNP [address] [address] 01/12/2024 12:00 PM EDT Office Visit Family Practice [facility] [address] [address] Miguel Suarez MD [address] [address] 07/21/2024 10:00 AM EST Nurse Only Ancillary [facility] [address] [place] [address] [facility], Nurse Annual Wellness [facility] [address] [address] Scheduled Procedures Name Priority Associated Diagnoses Date/Ti [...] this encounter Medical Devices Implanted Type Area Band Presser Device Identifier Shelf Expiration Date Model / Serial / Lot Stent Synergy Xd Mr [id number] - [id number] Implanted:Qty: 1 on 11/24/2022 by Johnny Schofield MD at [facility] [place] [employer] [id number] 07/24/2023 [id number] 220 / / [id number] documented as of this encounter Advance Directives [...] the patient have Health Care Power of Project Facilitator? No Care Teams Fence Erector Relationship Specialty Start Date End Date Miguel Suarez MD [address] [address] PCP - General Family Medicine 07/25/14 documented as of this encounter
--- OUTSIDE RECORDS SUMMARY | 2024-01-24 09:08 | External Medical Summary ---
Author Name Unknown Address Unknown Organization [id number]:LABORATORY [facility] [place] - [address] [place] [address] Laboratory Report Ordering Provider Test Date Status BENITO MONTEJO 09/06/2023 10:41:24 Final Observation Date Value Abnormality Reference (Units ) Status MYCODE SPECIMEN-SST 09/06/2023 10:41:24 Freezing of extracted DNA, whole blood and/or serum. Final Performing Location LABORATORY [facility] [place] - [address] [place] [address]
--- OUTSIDE RECORDS SUMMARY | 2024-01-24 09:08 | External Medical Summary ---
Author Name Unknown Address Unknown Organization [id number]:[facility] [place] [address] [address] Laboratory Report Ordering Provider Test Date Status CEFERINO QUINTANA 09/06/2023 10:41:24 Final Observation Date Value Abnormality Reference (Units ) Status BUN 09/06/2023 10:41:24 22 Above high normal 6-20 (mg/dL) Final Creatinine 09/06/2023 10:41:24 1.4 Above high normal 0.6-1.2 (mg/dL) Final Glomerular filtration rate/1.73 sq M.predicted [Volume Rate/Area] in Serum, Plasma or Blood by Creatinine-based formula (CKD-EPI) 09/06/2023 10:41:24 53 Below low normal >=60 (mL/min) Final eGFR is calculated based on the CKD-EPI 2020 equation SODIUM 09/06/2023 10:41:24 144 135-146 (m mol/L) Final Potassium 09/06/2023 10:41:24 4.7 3.5-5.1 (m mol/L) Final Cl 09/06/2023 10:41:24 107 98-107 (mm ol/L) Final CO2 09/06/2023 10:41:24 27 22-32 (mmo l/L) Final Anion gap 09/06/2023 10:41:24 10 7-15 (mmol /L) Final Glucose 09/06/2023 10:41:24 123 Above high normal 70 -120 (mg/dL) Final Calcium 09/06/2023 10:41:24 9.3 8.4-10.2 ( mg/dL) Final Performing Location [facility] [place] [address] [place] [address]
--- OUTSIDE RECORDS SUMMARY | 2024-01-24 09:08 | External Medical Summary ---
Author Name Unknown Address Unknown Organization [id number]:LABORATORY [facility] [place] - [address] [place] [address] Laboratory Report Ordering Provider Test Date Status BENITO MONTEJO 09/06/2023 10:41:24 Final Observation Date Value Abnormality Reference (Units ) Status MYCODE SPECIMEN-SST 09/06/2023 10:41:24 Freezing of extracted DNA, whole blood and/or serum. Final Performing Location LABORATORY [facility] [place] - [address] [place] [address]
--- OUTSIDE RECORDS SUMMARY | 2024-01-24 09:08 | External Medical Summary | Summary of Care ---
Author Name Unknown Organization [facility] Address [address] [address] Phone [phone] Care Team Providers Care Lamp Assembler Name Role Phone Miguel Suarez MD Primary Care Provider + Reason for Visit * Reason Comments Outpatient Testing Encounter Details Date Type Department Care Team (Late st Contact Info) Description 09/06/2023 10:40 AM EST Laboratory Laboratory, [place] [address] [place] [address] [facility] [address] [place] [address] [employer] Research Other*[id number]; ROD (acute kidney injury) (HCC); Encounter for long-term (current) use of medications Allergies Active Allergy Reactions Criticality Noted Date Comments Atorvastatin 03/04/2018 Myalgia Fluticasone Furoate-Vilanterol 12/24/2021 Tightness in chest Rosuvastatin Calcium 03/04/2018 myalgia Iodinated Contrast Media Anaphylaxis,Itching High 04/26/2008 Contrast dye Other Allergy (See Comments) 04/24/2022 Product Containing 1-zuyzpxd-2-methylgl utaryl-coenzyme A Reductase Inhibitor (product) Simvastatin 03/04/2018 [...] MG Sublingual Tablet Sublingual (Nitrostat)Indicati ons:Atherosclerosis of sioux coronary artery of sioux heart with other form of angina pectoris (HCC),Exertional angina,Coronary artery disease involving coronary bypass graft of sioux heart with angina pectoris (HCC) PLACE 1 [...] 50 MCG/ACT Nasal Suspension (Flonase) Administer 1 [place] into nostril daily as needed. 0 Active [...] Tablet (pLAVix)Indications :Atherosclerosis of coronary artery of sioux heart with stable angina pectoris, unspecified vessel [...] disorder, recurrent epi sode 04/12/2019 Atherosclerosis of sioux co ronary artery of sioux heart with stable angina pectoris 07/06/2018 Lung nodules 05/28/2018 Splenomegaly 04/09/2018 History of colon cancer 04/08/2018 Statin intolerance 01/29/2018 Stable angina 02/01/2017 Coronary artery disease invo lving coronary bypass graft of sioux heart with angina pectoris 09/14/2016 S/P angioplasty [...] (small bowel obstruction) Overview: 04/23 admit. 11/21 [facility] improved w/NPO. Cont ETOH abuse documented as [...] Exertional angina 10/22/2016 01/01/2017 Coronary atherosclerosis of sioux coronary artery 12/26/2013 03/22/2019 Colon cancer 10/06/2013 [...] 7-9th rib frx 04/01/10CT neck @[facility]-mild osteophytes 2008 colonoscopy-WNL. 08/14/03. Colonoscopy-The polyp at [...] EST Hospital Encounter ENDO OSS[facility], Endoscopy Room [facility] [address] [phone] Milvia Arnold MD [address] [place] [address] 09/13/2023 9:00 AM EST - 09/13/2023 9:30 AM EST Surgery ENDO OSSC, Endoscopy Room [facility] [address] [phone] Milvia Arnold MD [address] [place] [address] COLONOSCOPY FLEXIBLE PROXIMAL DIAGNOSTIC 11/10/2023 11:00 AM EDT Office Visit Cardiology, [facility] [address] [place] [address] Vivienne Sunshine CRNP [address] [place] [address] 01/12/2024 12:00 PM EDT Office Visit Family Practice [facility] [address] [facility] [place] [address] Miguel Suarez MD [address] [facility] [place] [address] 07/21/2024 10:00 AM EST Nurse Only Ancillary [facility] [address] [facility] [place] [address] [facility], Nurse Annual Wellness [facility] [address] [facility] [place] [address] Pending Results Name Type Priority Associated Diagnoses Date /Time MYCODE SUBSEQUENT ADULT Lab Routine [employer] Other*[id number] 09/06/2023 10:41 AM EST BASIC METABOLIC PANEL Lab Routine ROD (acute kidney injury) (HCC) 09/06/2023 10:41 AM EST VITAMIN B12 Lab Routine Encounter for long-term (current) use of medications 09/06/2023 10:41 AM EST MYCODE SST1 Lab Routine [employer] Other*[id number] 09/06/2023 10:41 AM EST MYCODE SST2 Lab Routine [employer] Other*[id number] 09/06/2023 10:41 AM EST Scheduled Procedures Name Priority Associated Diagnoses Date/Ti [...] 05/20/2021, Additional history exists GFR 05/28/2024 05/28/2023, 08/08/2022, 12/28/2022, Additional history exists Depression Screening 07/20/2024 [...] this encounter Medical Devices Implanted Type Area Audio Production Manager Device Identifier Shelf Expiration Date Model / Serial / Lot Stent Synergy Xd Mr [id number] - [id number] Implanted:Qty: 1 on 11/24/2022 by Johnny Schofield MD at [facility] [employer] [id number] 07/24/2023 [id number] / / [id number] documented as of this encounter Visit Diagnoses Diagnosis [employer] Other*[id number] ROD (acute kidney injury) (HCC) Acute kidney failure, unspecified Encounter for long-term (current) use of medications Encounter for long-term (current) use of other [...] the patient have Health Care Power of Report Programmer? No Care Teams Lamp Assembler Relationship Specialty Start Date End Date Miguel Suarez MD [address] [facility] [place] [address] PCP - General Family Medicine 07/25/14 documented as of this encounter
[2024-01-24] MEDS: diphenhydrAMINE 50 MG/ML VIAL ONE (09:13)
[2024-01-24] MEDS: methylPREDNISolone 125 MG/2 ML VIAL ONE (09:13)
[2024-01-24] MEDS: FAMOTIDINE 20MG IV PUSH 20 MG/5 ML SYR IV ONE (09:14)
[2024-01-24] MEDS: HEPARIN (PORCINE) 1000 UNIT/ML 10 ML (CATH LAB USE ONLY) ONE (09:49)
[2024-01-24] MEDS: MIDAZOLAM HCL 1 MG/ML 2ML VIAL ONE (09:49)
[2024-01-24] MEDS: niCARdipine HCL INJ 2.5 MG/ML 10 ML AMP ONE (09:49)
[2024-01-24] MEDS: OPTIRAY 350 ONE (09:50)
[2024-01-24] MEDS: NITROGLYCERIN/D5W 100MCG/ML 20ML SYR ONE (09:50)
[2024-01-24] MEDS: IODIXANOL (VISIPAQUE) 320 MG/ML 100ML IV ONE (09:53)
[2024-01-24] MEDS: fentaNYL citrate PF 100 MCG/2 ML VIAL ONE (09:53)
--- NOTE | 2024-01-24 10:04 | Post Anesthesia Assessment ---
Date of Service January 24, 2024 Post Sedation Assessment Vital Signs Temp Pulse Pulse Resp BP BP Pulse Ox 01/24/24 08:31 74 16 97 01/24/24 08:31 74 16 129/87 97 01/24/24 08:25 76 01/24/24 08:15 97.7 F 81 20 117/90 97 O2 Del Method 01/24/24 08:31 Room Air 01/24/24 08:31 Room Air 01/24/24 08:25 01/24/24 08:15 Room Air Recovery Score Activity: Moves 4 extremities Respiration: Deep Breath/Cough Circulation: +/-20% PreAnes Value Consciousness: Fully Awake Oxygen Saturation: O2 needed for >90% Discharge Sedation Level of Care: Fast Track Phase II Post Sedation Plan On clinical assessment, the patient appears to have tolerated the sedation without complications. Patient is recovering as anticipated. Patient will continue to be monitored by nursing and may be discharged when sedation discharge criteria are met per below protocol. Upon Completions of procedure up to 15 minutes continue every 5 minute vital signs and the P.A.R. score; then discharge to a Phase I or Fast Track to Phase II per the following guidelines: * Discharge Patient to appropriate Phase II area if PAR is 8 or greater or return to pre- procedure baseline. The post - procedure orders will be as directed. * If PAR score is less than 8 or not return to pre-procedure baseline then patient will follow Phase I monitoring till PAR is reached for Phase II. The Phase I may be done in procedure room or may call to secure a Phase I area. * If naloxone or flumazenil are used for reversal, hold in Phase I for continued monitoring from when last reversal dose was given for a minimum of 60 minutes or longer pending the nurse and/or physician discretion of patient condition before discharge to Phase II. Please call the Sedation Physician to re-evaluate and complete post-note for discharge to Phase II area. Do NOT discharge from procedure sedation or Phase 1 until post- sedation evaluation note is complete by procedure /sedation MD Sedation Discharge Instructions to be given to the patient at discharge to home.
--- NOTE | 2024-01-24 10:06 | Cardiac Catheterization ---
[facility] Data: Waste Chopper Cardiac Status Clinical evaluation leading to the procedure CAD Presenation: Unstable angina Anginal Classification: CCS IV Diagnostic Physicians Name: Abdiaziz Tello MD Closure Device Recommendations: Medical Therapy and/or Counseling and PCI without planned CABG Cardiac Cath Procedure Full Procedure Date January 24, 2024 Pre-Procedure Diagnosis Pre-Procedure Diagnosis: Acute Coronary Syndrome AUC Score AUC Score: 8 Post-Procedure Diagnosis Post-Procedure Diagnosis: Severe CAD and Normal Intracardiac Pressures Procedure(s) Performed Procedure(s) Performed: Coronary Angiography, Left Heart Cath, Ultrasound Guided Vascular Access and Bypass Graft Angiography Manual Control Auger Press Operator Abdiaziz Tello MD Stripper And Opaquer Apprentice(s) Soyn Estimated Blood Loss Estimated Blood Loss: 15 Medication(s) Medication(s): Fentanyl, Heparin, Lidocaine 1% and Versed Summary of Findings Indication: Acute coronary syndrome. History of 5 vessel CABG (VICTORIA Y graft to LADdiagonal, TERRY to PDA, SVG to OM1, SVG to OM 2; post prior PRESTON to SVG to OM 2016, PCI to VICTORIA-LAD anastomosis 11/2022). Access: 6 Fr right common femoral artery under ultrasound guidance Catheters: JR4, MPA, pigtail Findings: RCA -dominant, 100% proximal occlusion VICTORIA Y graft LAD widely patent with patent stent at anastomosis. Medium LAD after anastomosis widely patent and extends to apex. Y graft limb to D1 with 95% stenosis at anastomosis. D1 small caliber vessel without significant disease. SVG to [id number] stent chronically occluded SVG to OM2 100% proximal occlusion TERRY to PDA Patent with apparent 70-80% distal stenosis at bend right before anastomosis with PDA. Retrofills into RCA and PLB. LVEDP - 15 Prior Cath findings from 04/02/2023: LM -calcified, severe diffuse disease LAD -100% ostial occlusion Circumflex -100% ostial occlusion Ramusvery small vessel without significant disease Arterial Closure: Angioseal Summary: 1. Severe chronic tribe coronary artery disease 100% proximal RCA occlusion - Known occluded ostial LAD, ostial circumflex. 2. Occluded SVG to OM1, SVG to OM 2 3. VICTORIA Y graft to LAD, diagonal patent. VICTORIA-LAD anastomosis stent widely patent. 95% at anastomosis of small diagonal. 4. TERRY to PDA patent with 80% stenosis just before distal anastomosis. 5. Normal intracardiac filling pressure. Recommendations: Maximize antianginal therapy, Antiarrhythmics per Dr. Lopez. Consider complex PCI to TERRY-PDA anastomosis at [facility] Hemodynamics Rest Ao:: 111/71/87 Final Ao: 118/72/92 LV: 123/15 Recommendations Recommendations: Medical Therapy and/or Counseling and PCI without planned CABG Specimens Specimens: None Radiation Exposure (mGy) 1960 Contrast (mls) 110 Anesthesia Moderate [id number] Procedural Complication(s) None I attest to the content of the Intraoperative Record and any orders documented therein. Any exceptions are noted below. [employer] Card Cath Procedure Codes Cardiac Catheterization Procedure 1: Cardiovascular Cath Procedures: 55937 Coronaries & LHC (+/-LV) & Grafts/IM (arterial & venous) Therapeutic Services & Ancillary Procedure 1: Cardiovascular Tx and Anc Procedures: 34641 Ultrasonic Guidance Vascular Access Moderate Sedation Procedure 1: Sedation/Anesthesia: 13568 Mod Sedation by the same physician;Init15 Min Child Age 5 & Up Procedure 2: Sedation/Anesthesia: 17141 Mod Sedation by the same physician; Ea [id number] Minutes PG Care Time/CCT Total # of Minutes Spent Total Time Spent with Patient: Total time spent is greater than 50% in coordination of care (as documented) at patient's floor/unit and/or counseling patient:
[2024-01-24] MEDS ORDERED: ONDANSETRON INJ 2 MG/ML 2 ML VIAL IV PRN ×2 (10:23→11:57)
--- NOTE | 2024-01-24 11:40 | Cardiology Consultation ---
Date of Consultation January 24, 2024 Assessment & Plan (1) ST elevation (STEMI) myocardial infarction: (2) Ischemic cardiomyopathy: (3) CAD (coronary artery disease): (4) HTN (hypertension): (5) Wide-complex tachycardia: EKGs with conduction abnormalities but no QT prolongation Plan 73-year-old male with severe diffuse coronary artery disease status post remote coronary bypass grafting 1992 with severe [place] vessel disease, intact VICTORIA graft and intact TERRY graft who developed symptoms consistent with atypical angina while exercising on treadmill at cardiac rehab today in the setting of wide-complex tachycardia. EKG demonstrated acute ST inferior elevation on resolve of arrhythmia Cardiac catheterization done emergently demonstrates intact arterial grafts, patent stent the left anterior descending but probable lesion at the juncture of the distal right internal mammary artery and right coronary artery. The right internal mammary artery is very tortuous and lesion not likely amenable to coronary intervention on review with local interventionalists as well as [facility] Clinical history notable for recent hold clopidogrel for colonoscopy. Impression: Acute ST elevation infarct, transient, secondary to acute exercise- induced ischemia/arrhythmia Plan: Admit and trend enzymes assess for injury. IV heparin with plans of 48 hours administration. Continue clopidogrel and aspirin Follow for further arrhythmias. Will initially hold antiarrhythmic effect as this was likely ischemic in origin and baseline significant conduction abnormalities on outpatient EKGs Echocardiogram to assess LV systolic function Hold ranolazine Previously did not tolerate amlodipine due to hypotension will cautiously add oral nitrates History of Present Illness Reason for Consultation: Dynamic ST elevation with angina Requesting Physician: [facility] Attending Physician: Abdiaziz Tello MD History of Present Illness Patient is a 73-year-old male with complex cardiac history which includes 1. CAD (S/P CABG x5 VICTORIA-D1-LAD, TERRY-distal RCA, SVG-OM1, SVG-OMII [place] 06/1993) 2. History of complex coronary anatomy, PCI and stenting of an SVG to OM1 graft in September 2016, at time of repeat cardiac catheterization performed October,, stent was patent with diffuse nonobstructive disease elsewhere for which ongoing medical management was recommended 3. Dyslipidemia with statin intolerance to simvastatin, atorvastatin, and rosuvastatin 4. Hypertension 5. Acute STEMI 11/20/22 with cath revealing 90% stenosis of the VICTORIA to LAD anastomosis flown to [facility] for further intervention. Other severe [place] vessel disease and 2 occluded vein grafts. On 11/24/22 patient received PRESTON to the VICTORIA- LAD anastomosis into the mid LAD with excellent results. 6. HFrEF with recent acute CHF exacerbation requiring hospitalization at [facility] December 2022. LVEF 45% 7. Intermittent LBBB IVCD with chronic first-degree AV block 8. Contrast allergy 9. Statin intolerance on PCSK9 inhibitor Patient presents today as an urgent referral from cardiac rehab. Patient exercising on treadmill this morning and noted transition to wide-complex tachycardia while exercising. Taken from treadmill and noted symptoms of indigestion abdominal chest pressure. EKG performed demonstrated ST elevation in inferior leads. Transported the emergency room with symptoms as described. EKG on ER presentation demonstrating now ST depression with resolve of ST elevation. Patient underwent emergent cardiac catheterization demonstrating intact VICTORIA graft and right internal mammary artery graft. Prior stent to the left anterior descending patent Concern regarding right coronary artery distal TERRY lesion remains present Patient with similar ST elevation event March 2023 with cardiac catheterization similar to today's presentation Symptoms post procedure had resolved. Notes occasional indigestion type symptoms with exertion prior to hospitalization. Clinical history notable for hold of clopidogrel for colonoscopy 1 week ago No dizziness lightheadedness syncope or near syncope no prior tachypalpitations. Allergies Allergy/AdvReac Type Severity Reaction Status Date / Time Iodinated Contrast Media Allergy Severe Anaphylaxis Verified 08/09/23 10:12 Wywuchx-KMO-WgS Reductase Allergy Unknown MUSCLE Verified 08/09/23 10:12 Inhibitor ACHES [Aobzvet-Uhj-Cpr Reductase Inhibitor] Home Medications Medication Instructions Recorded Confirmed Type cholecalciferol (vitamin D3) 125 5,000 unit PO QAM 05/22/18 09/01/23 History mcg (5,000 unit) tablet (Vitamin D3) clopidogrel 75 mg tablet (Plavix) 75 mg PO QAM 05/22/18 09/01/23 History nitroglycerin 0.4 mg sublingual 0.4 mg sublingual UD PRN Chest Pain 05/22/18 09/01/23 History tablet (Nitrostat) terazosin 2 mg capsule 5 mg PO HS 05/22/18 09/01/23 History vitamin E 268 mg (400 unit) capsule 400 unit PO QAM 05/22/18 09/01/23 History pyridoxine (vitamin B6) 100 mg 100 mg PO QAM 12/06/20 09/01/23 History tablet (Vitamin B-6) fluocinonide 0.05 % topical cream 1 applic topical BID PRN Rash 12/31/20 09/01/23 History sertraline 100 mg tablet 100 mg PO QAM 01/07/21 09/01/23 History aspirin 81 mg tablet,delayed 81 mg PO AMPM 01/10/21 09/01/23 History release fluticasone propionate 50 2 spray intranasal DAILY PRN Nasal 01/10/21 09/01/23 History mcg/actuation nasal Congestion spray,suspension Formulas Testosterone Cap 1 tab PO DAILY 12/16/22 09/01/23 History alirocumab 150 mg/mL subcutaneous 150 mg subcut .[id number] 12/16/22 09/01/23 History pen injector (Praluent Pen) allopurinol 300 mg tablet 150 mg PO QAM 12/16/22 09/01/23 History amlodipine 10 mg tablet 10 mg PO QAM 12/16/22 09/01/23 History cyanocobalamin (vitamin B-12) 1,000 mcg PO DAILY 12/16/22 09/01/23 History 1,000 mcg tablet (Vitamin B-12) famotidine 20 mg tablet 20 mg PO BID 12/16/22 09/01/23 History metoprolol succinate 50 mg 50 mg PO QAM 12/16/22 09/01/23 History tablet,extended release 24 hr nitroglycerin 0.6 mg/hr 0 patch topical DAILY 12/16/22 09/01/23 History transdermal 24 hour patch pantoprazole 40 mg tablet,delayed 40 mg PO BID 12/16/22 09/01/23 History release ranolazine 500 mg tablet,extended 500 mg PO BID 12/16/22 09/01/23 History release,12 hr furosemide 20 mg tablet 20 mg PO DAILY PRN Edema 01/16/23 09/01/23 History sacubitril 24 mg-valsartan 26 mg 1 tab PO BID 04/02/23 09/01/23 History tablet (Entresto) allopurinol 300 mg tablet 300 mg PO QPM 09/01/23 09/01/23 History sertraline 50 mg tablet (Zoloft) 50 mg PO QPM 09/01/23 09/01/23 History Patient History Medical History Myocardial Infarction 11/20/2022 Temporomandibular joint disorder CLICKS NO LOCKING Prediabetes Diet controlled History of intestinal obstruction No recent issues History of TMJ disorder Occ jaw clicking - no jaw locking Hearing deficit BL [place] Has hearing aids - not wearing hearing aids Anxiety History of TIA (transient ischemic attack) -"SHOWS 7 ON SCANS" PER PT-F/U DR On home oxygen therapy 2 LPM qHS- does not always use secondary to nasal dryness History of COVID-19 08/2020; asymptomatic -TESTED BY [facility] Chronic idiopathic thrombocytopenia F/U PCP Surgical History History of colonoscopy H/O heart artery stent x 1 S/P CABG x 5 1992 [facility] History of cardiac catheterization 2016 [facility] - 1 stent Family History Father Diabetes Esophagus cancer Stomach cancer Heart disease Other No family history of adverse response to anesthesia Social History Smoking Status: Former smoker Tobacco Type: Cigarettes Second Hand Exposure: No; Do You Dip or Chew Tobacco: No; Hx Alcohol Use: Yes Alcohol type: beer Hx Substance Use: No Preferred Language: Spanish Communication Ability: Effective Grip Wrapper Required: No Beliefs That Will Affect Care: None marital status: Current Living Situation: Family Current Living Situation Comment: family has apartment underneath patients home current occupational status: retired 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 Feels Safe at Home: Yes Assistive Devices: Oxygen - at Night Physical Exam Constitutional: well developed and well nourished; no acute distress Eyes: PERRL, conjunctivae normal, anicteric sclerae ENMT: external ear and nose normal, oropharynx normal Neck: trachea midline, no thyromegaly Cardiovascular: Rate/Rhythm: regular rate and regular rhythm Heart Sounds: normal S1 and normal S2; no murmur Vessels: femoral pulses present (Right femoral access site intact) Gastrointestinal (Abdomen): normal bowel sounds, soft, nontender, no hepatosplenomegaly Musculoskeletal: no cyanosis or clubbing, extremities motor strength 5/5 Skin: no rashes, warm and dry Results & Data Vital Signs (Past 12 Hours) Vital Signs Temp Pulse Pulse Resp BP BP Pulse Ox 01/24/24 11:15 60 18 138/93 96 01/24/24 11:02 64 18 133/100 96 01/24/24 10:45 63 18 138/97 96 01/24/24 10:30 58 L 18 120/85 96 01/24/24 10:15 60 18 131/92 96 01/24/24 10:00 60 18 122/89 96 01/24/24 08:31 74 16 97 01/24/24 08:31 74 16 129/87 97 01/24/24 08:25 76 01/24/24 08:15 36.5 C 81 20 117/90 97 O2 Del Method 01/24/24 11:15 Room Air 01/24/24 11:02 Room Air 01/24/24 10:45 Room Air 01/24/24 10:30 Room Air 01/24/24 10:15 Room Air 01/24/24 10:00 Room Air 01/24/24 08:31 Room Air 01/24/24 08:31 Room Air 01/24/24 08:25 01/24/24 08:15 Room Air Laboratory Results Laboratory Results - last 24 hr 01/24/24 01/24/24 08:17 08:20 WBC 3.92 L RBC 4.62 L Hgb 14.8 POC Hgb 15.0 Hct 43.2 POC Hct 44 MCV 93.5 MCH 32.0 MCHC 34.3 RDW Std Deviation 49.0 H RDW Coeff of Long 14.4 Plt Count 125 L MPV 10.3 Immature Gran % (Auto) 0.3 Neut % (Auto) 67.1 Lymph % (Auto) 20.4 [place] % (Auto) 7.9 Eos % (Auto) 3.3 Baso % (Auto) 1.0 Neut # (Auto) 2.63 Lymph # (Auto) 0.80 L [place] # (Auto) 0.31 Eos # (Auto) 0.13 Baso # (Auto) 0.04 Immature Gran # (Auto) 0.01 POC Sodium 143 Sodium 142 POC Potassium 4.0 Potassium 4.0 POC Chloride 105 Chloride 106 Carbon Dioxide 26 POC Total CO2 25 Anion Gap 10 POC Anion Gap 17.0 POC BUN 25 H BUN 28 H Creatinine 1.53 H POC Creatinine 1.5 H Est Cr Clr Drug Dosing 48.4 Est GFR ( Amer) 51.5 Est GFR (Non-Af Amer) 44.5 BUN/Creatinine Ratio 18.3 Glucose 131 H POC Glucose (other) 123 H Calcium 9.7 POC Ioniz Calcium Nicola 1.18 Total Bilirubin 0.5 AST 17 ALT 16 Alkaline Phosphatase 41 Troponin I High Sens 22.3 H Total Protein 6.8 Albumin 4.3 Globulin 2.5 Albumin/Globulin Ratio 1.7 Lipase 28 (1) ST elevation (STEMI) myocardial infarction Involved coronary artery: unspecified coronary artery Qualified Code(s): I21.3 - ST elevation (STEMI) myocardial infarction of unspecified site
[2024-01-24] MEDS ORDERED: ALUMINUM/MAGNESIUM SUSP 30 ML UDC PO PRN (11:57)
[2024-01-24] MEDS ORDERED: POLYETHYLENE (MIRALAX) 17 GM PACK PO PRN (11:57)
[2024-01-24] MEDS ORDERED: ACETAMINOPHEN 325 MG TAB PO PRN (11:57)
[2024-01-24] MEDS ORDERED: MAGNESIUM HYDROXIDE SUSP 30 ML UDC PO PRN (11:57)
--- NOTE | 2024-01-24 12:06 | History & Physical Report ---
Date of Service January 24, 2024 Assessment & Plan (1) ST elevation (STEMI) myocardial infarction: (2) Wide-complex tachycardia: (3) ETOH abuse: (4) History of TIA (transient ischemic attack): (5) History of colon cancer: (6) CAD (coronary artery disease): (7) HTN (hypertension): (8) Dyslipidemia: Plan Mr. Jamil is a 73-year-old male that presented to the ED today from cardiac rehab as he was experiencing chest pain. Patient has a complex cardiac history including CAD with history of CABG x 5 in 2013 with a last most recent stent placed 2022. ECG revealed wide-complex tachycardia and he was sent to [facility] for further evaluation. PMH: includes HFrEF, colon cancer status post partial sigmoid colectomy 2013, history of alcohol abuse, history of TIA, HTN, HLD, and GERD. He does indicate that he has been "stumbling" and a little dizzy intermittently. In the ED, ECG x [address] elevation noted in leads III and aVF; indicating inferior wall ME. No leukocytosistroponin 22.3, creatinine slightly elevated from baseline 1.53; baseline 1.2-1.4. Dr. Tello was contacted from the ED and patient was taken to [facility] for emergent catheterization and exploration. Per review and discussion with Dr. Tello IVAN VICTORIA grafts are patent. Patient has severe skull valley vessel disease with occluded vein graft to marginal branch vessels including 80% ramus stenosis just before anastomosis with PDA. Most recent outpatient cardiology appointment 04/02/2023 status post stent placement. As indicated patient has significant CAD status post CABG x 3 VICTORIA to LAD, TERRY to distal RCA, SVG to OM1, SVG to OM 2. He further had an acute STEMI 11/20/2022 and his cath at that time revealed 90% stenosis of the VICTORIA to LAD for which he was transferred [place] [facility] [place] intervention and evaluation. Additionally of note he has HFrEF with a recent acute exacerbation of CHF which required inpatient stay here at [facility] 12/2022. Most recent echocardiogram 12/29/2022 reduced EF 45 to 50% septal wall motion abnormalities noted with moderate hypokinesis. Mild AR, moderate MR, mild TR noted. Patient notes that he drinks 4 shots of liquor 5 out of 7 days. His last drink was yesterday. No tremors. Has never had any seizure or withdrawal symptoms. Full code in the event of cardiac respiratory arrest ST elevation ME: Wide-complex tachycardia: Acute Chest pain started today, more epigastric in nature. Not unusual for him. In ED ECG x 2 ST elevation noted in leads III and aVF; indicating inferior wall ME Troponin 22.3 Dr. Tello took to [facility] for emergent cath and expiration IVAN VICTORIA grafts are patent. Patient has severe skull valley vessel disease with occluded vein graft to marginal branch vessels including 80% ramus stenosis just before anastomosis with PDA. Appears that the right internal mammary artery is very tortuous; cardiology discussing with [facility] Neisha Was Rx Plavix and he had it on hold last week for colonoscopy prep Started on heparin gtt; Cards will monitor rhythm strips to determine if IV antiarrhythmic is necessary. ECHO ordered Hold Ranolazine per cards Of note did not tolerate amlodipine due to hypotension Started on Entresto, continue Plavix/ASA dual anti-plt CAD: HTN: Chronic s/p CABG x 3 VICTORIA to LAD, TERRY to distal RCA, SVG to OM1, SVG to OM 2. He further had an acute STEMI 11/20/2022 and his cath at that time revealed 90% stenosis of the VICTORIA to LAD for which he was transferred to [facility] [place] further intervention and evaluation. Additionally of note he has HFrEF with a recent acute exacerbation of CHF which required inpatient stay here at [facility] 12/2022. At that time his LVEF was 45%. Alcohol use/abuse: Chronic drinks 4 shots of liquor 5 out of 7 days. His last drink was yesterday. No tremors on exam; Has never had any seizure or withdrawal symptoms AWSS scale ordered; gabapentin taper Ativan x1 PRN Recommended cessation of drinking History of TIA: Chronic On Eliquis; unsure when TIA occured History of colon cancer: Chronic 09/2013. HLD: Chronic intolerant of statins; atorva, simva, rosuva tried in the past Disposition: PCP: Dr. Gerald Sullivan CODE STATUS: Full code VTE prophylaxis: On heparin drip I spent a total of 87 minutes coordinating, documenting, and providing care for this patient excluding time spent in the performance of separately billed services. All of the aforementioned completed while collaborating with the assigned attending physician for a full treatment plan. Please see their addendum for further details. Admission and Anticipated Discharge Date Admission Date: January 24, 2024 History of Present Illness Chief Complaint: chest pain Primary Care Provider: Miguel Suarez MD Mr. Jamil is a 73-year-old male that presented to the ED today from cardiac rehab as he was experiencing chest pain. Patient has a complex cardiac history including CAD with history of CABG x 5 in 2013 with a last most recent stent placed 2022. ECG revealed wide-complex tachycardia and he was sent to [facility] for further evaluation. Additional past medical history includes HFrEF, colon cancer status post partial sigmoid colectomy 2013, history of alcohol abuse, history of TIA, HTN, HLD, and GERD. In the ED, ECG x [address] elevation noted in leads III and aVF; indicating inferior wall ME. No leukocytosistroponin 22.3, creatinine slightly elevated from baseline 1.53; baseline 1.2-1.4. Dr. Tello was contacted from the ED and patient was taken to [facility] for emergent catheterization and exploration. Per review and discussion with Dr. Tello IVAN VICTORIA grafts are patent. Patient has severe skull valley vessel disease with occluded vein graft to marginal branch vessels including 80% ramus stenosis just before anastomosis with PDA. Most recent outpatient cardiology appointment 04/02/2023 status post stent placement. As indicated patient has significant CAD status post CABG x 3 VICTORIA to LAD, TERRY to distal RCA, SVG to OM1, SVG to OM 2. He further had an acute STEMI 11/20/2022 and his cath at that time revealed 90% stenosis of the VICTORIA to LAD for which he was transferred to [facility] [place] further intervention and evaluation. Additionally of note he has HFrEF with a recent acute exacerbation of CHF which required inpatient stay here at [facility] 12/2022. At that time his LVEF was 45%. Most recent echocardiogram 12/29/2022 reduced EF 45 to 50% septal wall motion abnormalities noted with moderate hypokinesis. Mild AR, moderate MR, mild TR noted. Patient notes that he drinks 4 shots of liquor 5 out of 7 days. His last drink was yesterday. No tremors. Has never had any seizure or withdrawal symptoms. Denies tobacco or recreational drug use including medical marijuana. Patient will be admitted to PCU s/p PCI for further evaluation and management. Please see A/P for further details. Allergies Allergy/AdvReac Type Severity Reaction Status Date / Time Iodinated Contrast Media Allergy Severe Anaphylaxis Verified 08/09/23 10:12 [id number] Reductase Allergy Unknown MUSCLE Verified 08/09/23 10:12 Inhibitor ACHES [Gogoifw-[id number] Reductase Inhibitor] Home Medications Medication Instructions Recorded Confirmed Type cholecalciferol (vitamin D3) 125 5,000 unit PO QAM 05/22/18 01/24/24 History mcg (5,000 unit) tablet (Vitamin D3) clopidogrel 75 mg tablet (Plavix) 75 mg PO QAM 05/22/18 01/24/24 History nitroglycerin 0.4 mg sublingual 0.4 mg sublingual UD PRN Chest Pain 05/22/18 01/24/24 History tablet (Nitrostat) terazosin 2 mg capsule 5 mg PO HS 05/22/18 01/24/24 History vitamin E 268 mg (400 unit) capsule 400 unit PO QAM 05/22/18 01/24/24 History pyridoxine (vitamin B6) 100 mg 100 mg PO QAM 12/06/20 01/24/24 History tablet (Vitamin B-6) fluocinonide 0.05 % topical cream 1 applic topical BID PRN Rash 12/31/20 01/24/24 History sertraline 100 mg tablet 100 mg PO QAM 01/07/21 01/24/24 History aspirin 81 mg tablet,delayed 81 mg PO AMPM 01/10/21 01/24/24 History release fluticasone propionate 50 2 spray intranasal DAILY PRN Nasal 01/10/21 01/24/24 History mcg/actuation nasal Congestion spray,suspension Formulas Testosterone Cap 1 tab PO DAILY 12/16/22 01/24/24 History alirocumab 150 mg/mL subcutaneous 150 mg subcut .[id number] 12/16/22 01/24/24 History pen injector (Praluent Pen) allopurinol 300 mg tablet 150 mg PO QAM 12/16/22 01/24/24 History amlodipine 10 mg tablet 10 mg PO QAM 12/16/22 01/24/24 History cyanocobalamin (vitamin B-12) 1,000 mcg PO DAILY 12/16/22 01/24/24 History 1,000 mcg tablet (Vitamin B-12) famotidine 20 mg tablet 20 mg PO BID 12/16/22 01/24/24 History metoprolol succinate 50 mg 50 mg PO QAM 12/16/22 01/24/24 History tablet,extended release 24 hr nitroglycerin 0.6 mg/hr 0 patch topical DAILY 12/16/22 01/24/24 History transdermal 24 hour patch pantoprazole 40 mg tablet,delayed 40 mg PO BID 12/16/22 01/24/24 History release ranolazine 500 mg tablet,extended 500 mg PO BID 12/16/22 01/24/24 History release,12 hr furosemide 20 mg tablet 20 mg PO DAILY PRN Edema 01/16/23 01/24/24 History sacubitril 24 mg-valsartan 26 mg 1 tab PO BID 04/02/23 01/24/24 History tablet (Entresto) allopurinol 300 mg tablet 300 mg PO QPM 09/01/23 01/24/24 History sertraline 50 mg tablet (Zoloft) 50 mg PO QPM 09/01/23 01/24/24 History Past Med/Surg History Problem List V tach (Acute) Chest pain (Acute) History of TIA (transient ischemic attack) 1980s-"SHOWS 7 ON SCANS" PER PT-F/U Wide-complex tachycardia Acute bronchitis Nausea (Acute) Cough (Acute) Headache (Acute) SOB (shortness of breath) (Acute) Ischemic cardiomyopathy ST elevation (STEMI) myocardial infarction (Acute) TIA (transient ischemic attack) (Chronic) Alcohol abuse (Chronic) Acute kidney injury (Acute) Bronchitis (Acute) Left shoulder pain (Acute) Near syncope (Acute) Syncope Small bowel obstruction (Acute) Abdominal pain (Acute) ETOH abuse Thrombocytopenia Encounter for pre-operative examination Arthritis of knee, left Ureteral calculus, left Bilateral nephrolithiasis Hydronephrosis, left Angina pectoris, unstable (Acute) H/O crescendo angina Elevated troponin (Acute) CHF exacerbation SOB (shortness of breath) (Acute) Elevated troponin (Acute) CHF (congestive heart failure) (Acute) Recent myocardial infarction (Acute) Acute heart failure with reduced ejection fraction and diastolic dysfunction CAD (coronary artery disease), skull valley coronary artery LBBB (left bundle branch block) Acute on chronic renal insufficiency SBO (small bowel obstruction) (Acute) Infarction of spleen (Acute) Abnormal EKG Alcohol use Nocturnal hypoxia History of colon cancer dx 2017; treated surgically + oral chemo Depression BPH with obstruction/lower urinary tract symptoms CAD (coronary artery disease) (Chronic) "1992 - CABG x 5 09/2016 - [place] to SVG of OM 10/2016 - repeat cath, no lesions amenable to intervention, medical management recommended" Follows with Dr. Kaiser HTN (hypertension) (Chronic) GERD (gastroesophageal reflux disease) (Chronic) Well controlled and stable with med Dyslipidemia (Chronic) On injectable medications - cannot tolerate statins Gout (Chronic) No current issues BPH (benign prostatic hyperplasia) (Chronic) History of carpal tunnel surgery (Chronic) H/O arthroscopic knee surgery (Chronic) mult BL H/O toe surgery (Chronic) History of partial colectomy (Chronic) History of tonsillectomy and adenoidectomy (Chronic) Medical History Myocardial Infarction 11/20/2022 Temporomandibular joint disorder CLICKS NO LOCKING Prediabetes Diet controlled History of intestinal obstruction No recent issues History of TMJ disorder Occ jaw clicking - no jaw locking Hearing deficit BL DICKSON Has hearing aids - not wearing hearing aids Anxiety History of TIA (transient ischemic attack) -"SHOWS 7 ON SCANS" PER PT-F/U DR On home oxygen therapy 2 LPM qHS- does not always use secondary to nasal dryness History of COVID-19 08/2020; asymptomatic -TESTED BY [facility] AT [facility] Chronic idiopathic thrombocytopenia F/U PCP Surgical History History of colonoscopy H/O heart artery stent x 1 S/P CABG x 5 1992 [facility] History of cardiac catheterization 2016 [facility] - 1 stent Family History Father Diabetes Esophagus cancer Stomach cancer Heart disease Other No family history of adverse response to anesthesia Social History Smoking Status: Former smoker Tobacco Type: Cigarettes Second Hand Exposure: No; Do You Dip or Chew Tobacco: No; Hx Alcohol Use: Yes Alcohol type: beer Hx Substance Use: No Preferred Language: Malay Communication Ability: Effective Dehydrator Tender Required: No Beliefs That Will Affect Care: None marital status: Current Living Situation: Family Current Living Situation Comment: family has apartment underneath patients home current occupational status: retired current occupation: [employer] (15yrs). Feels Safe at Home: Yes Safety Concerns: Feels Safe At This Time Assistive Devices: Glasses, Hearing Aid - Bilateral and Oxygen - at Night Assistive Devices Comment: 2L HS Review of Systems Review of Systems: Neuro: (-) Falls, trauma, slurred speech HEENT: (-) DICKSON, dizziness, dysphagia, visual or auditory changes CV: (-) CP, palpitations, swelling Resp: (-) SOB GI: (-) appetite changes, N/V/D, bowel changes : (-) urinary changes Skin: (-) rashes Psych: (-) anxiety, depression Physical Exam Physical Exam: Neuro: AAOx4, PERRLA, no aphagia, memory changes, CNII-XII grossly intact HEENT: head normocephalic, moist mucus membranes CV: S1/S2, (-) M/G/R, (-) edema, cap refill < 3 seconds. R groin approach for cath; no bleeding; lying flat per protocol Resp: Lungs CTA in all munoz. On RA GI: Abdomen S/NT/ND, Ax4 bowel sounds, (-) CVA tenderness Musculoskeletal: 5/5 B/L UE strength, 5/5 B/L LE strength. No gait disturbance Skin: (-) rashes , (-) erythema. Psych: euthymic mood Results & Data Results & Data Vital Signs (Past 12 Hours) Vital Signs Temp Pulse Pulse Resp BP BP Pulse Ox 01/24/24 11:15 60 18 138/93 96 01/24/24 11:02 64 18 133/100 96 01/24/24 10:45 63 18 138/97 96 01/24/24 10:30 58 L 18 120/85 96 01/24/24 10:15 60 18 131/92 96 01/24/24 10:00 60 18 122/89 96 01/24/24 08:31 74 16 97 01/24/24 08:31 74 16 129/87 97 01/24/24 08:25 76 01/24/24 08:15 36.5 C 81 20 117/90 97 O2 Del Method 01/24/24 11:15 Room Air 01/24/24 11:02 Room Air 01/24/24 10:45 Room Air 01/24/24 10:30 Room Air 01/24/24 10:15 Room Air 01/24/24 10:00 Room Air 01/24/24 08:31 Room Air 01/24/24 08:31 Room Air 01/24/24 08:25 01/24/24 08:15 Room Air Laboratory Results Short CBC 01/24/24 Range/Units 08:17 WBC 3.92 L (4.8-10.8) K/ul Hgb 14.8 (14.0-18.0) g/dl Hct 43.2 (42.0-52.0) % Plt Count 125 L (130-400) K/uL BMP 01/24/24 08:17 Sodium 142 Potassium 4.0 Chloride 106 Carbon Dioxide 26 BUN 28 H Creatinine 1.53 H Glucose 131 H Calcium 9.7 Liver Function 01/24/24 Range/Units 08:17 Total Bilirubin 0.5 (0.2-1.0) mg/dl AST 17 (13-39) U/L ALT 16 (7-52) U/L Alkaline Phosphatase 41 (34-104) U/L Albumin 4.3 (3.4-5.0) gm/dl Diagnostic Findings Chest X-Ray 01/24/24 08:20 XR chest 1V portable CLINICAL HISTORY: Chest pain, nonspecific TECHNIQUE: Single frontal radiograph of the chest was obtained. Comparison: Comparison is made to chest radiograph 09/01/2023 FINDINGS: Median sternotomy wires are unchanged. Old healed left rib fractures are seen. Calcified aortic knob is seen. The lungs are clear. No evidence of pleural effusion or pneumothorax. IMPRESSION: No acute chest disease. ACT 112: Negative or not required by law. Electronically signed by: Terry Shine M.D. 01/24/2024 8:33 AM Code Status & VTE Plan Code Status Full Code in the event of cardiac or respiratory arrest Supervising Physician Co-Signing Physician Notes 73-year-old male with PMH of CAD status post CABG x 5 in 2013 and most recently stent placed in 2022 presented at referral of cardiac rehab. Patient was exercising on treadmill and noted transition to wide-complex tachycardia while exercising. Patient was heart alert, went to heart cath for STEMI. Medical management recommended. Cardiology on board, patient on heparin drip. Appreciate cardiology recommendation.Continue telemetry monitoring. On examination: GENERAL: Alert and oriented x3. NAD, on RA. HEENT: No pallor, no icterus. Pupils equal, round and reactive to light. Oral mucosa moist. NECK: No JVD, no neck masses. HEART: S1 and S2 heard. Regular rate and rhythm. No murmur, no gallop. RESPIRATORY SYSTEM: Normal AP diameter. No accessory muscle use. No wheezing, no crackles. ABDOMEN: Soft, bowel sounds present, nontender, no distention. CENTRAL NERVOUS SYSTEM: No facial droop. Speech is clear. Obeys simple commands. Moves extremities. EXTREMITIES: No edema, no erythema seen. Right groin with clean dressing without soakage. No bleeding. No hematoma collection noted. No bruising noted. I have seen and examined the patient and have discussed the case with the provider above. I agree with the assessment and plan as stated. (1) ST elevation (STEMI) myocardial infarction Involved coronary artery: unspecified coronary artery Qualified Code(s): I21.3 - ST elevation (STEMI) myocardial infarction of unspecified site
[2024-01-24] MEDS ORDERED: GABAPENTIN 1200MG ALCOHOL WITHDRAWAL LOAD PO STA (12:34)
[2024-01-24] MEDS ORDERED: LORazepam 1 MG TAB PO PRN (12:34)
[2024-01-24] MEDS ORDERED: Ativan PO Alcohol Withdrawal--Active Protocol PO PRN (12:34)
[2024-01-24] MEDS: HEPARIN SODIUM/DEXTROSE 25,000 UNITS/500 ML BAG IV SCH (12:40)
[2024-01-24] MEDS: SODIUM CHLORIDE 0.9% 1,000 ML IV SCH (12:40)
[2024-01-24] MEDS: Heparin IV Adult Wt-Based Low-Dose w/ INITIAL Bolus Protocol IV STA (12:57)
[2024-01-24] MEDS: STAT IV Infusion **Titration per Protocol STA (12:57)
[2024-01-24] MEDS: RAPID SEQUENCE INDUCTION BAG ONE (12:58)
[2024-01-24] MEDS: HEPARIN SOD (PORCINE) 1000 UNIT/ML IV ONE (12:58)
[2024-01-24] MEDS: GABAPENTIN 600 MG TAB PO ONE (13:01)
[2024-01-24] MEDS: AMIODARONE / D5W 360 MG/200 ML BAG IV ONE (13:07)
[2024-01-24] MEDS: AMIODARONE IV BOLUS & DRIP IV STA (13:07)
[2024-01-24] MEDS ORDERED: AMIODARONE / D5W 360 MG/200 ML BAG IV SCH (14:30)
[2024-01-24] MEDS: ISOSORBIDE DINITRATE 20 MG TAB PO SCH (17:08)
[2024-01-24] MEDS: GABAPENTIN 600 MG TAB PO SCH (17:08)
--- NOTE | 2024-01-24 17:16 | Electrocardiogram Report ---
Test Reason : Blood Pressure : / mmHG Vent. Rate : 086 BPM Atrial Rate : 086 BPM P-R Int : 192 ms QRS Dur : 114 ms QT Int : 388 ms P-R-T Axes : 058 027 132 degrees QTc Int : 464 ms Normal sinus rhythm Inferior infarct (cited on or before 16-JAN-2023) Abnormal ECG When compared with ECG of 24-JAN-2024 08:01, (unconfirmed) Serial changes of evolving Inferior infarct Present Confirmed by Dandre Erwin ([id number]) on 01/24/2024 5:16:29 PM Referred By: REFERRED SELF Confirmed By:Dandre Erwin
[2024-01-24] MEDS: METOPROLOL SUCC 25MG EXT REL TAB PO SCH (21:26)
[2024-01-24] MEDS: VALSARTAN/SACUBITRIL 26/24MG TAB PO SCH (21:26)
[2024-01-24] MEDS: FAMOTIDINE 20 MG TAB PO SCH (21:27)
[2024-01-24] MEDS: SERTRALINE HCL 50 MG TABLET PO SCH (21:27)
[2024-01-24] MEDS: TERAZOSIN HCL 5 MG CAP PO SCH (21:28)
[2024-01-24] MEDS: allopurinoL 300 MG TAB PO SCH (21:28)
[2024-01-24] MEDS: PANTOprazole 40 MG TAB PO SCH (21:28)
[2024-01-25 03:31] LABS: Hematocrit (blood only) 39.7 % (42.0-52.0); Hemoglobin 13.8 g/dl (14.0-18.0); Mean Corpuscular Hemoglobin 31.7 pg (25.0-34.0); Mean Corpuscular Hgb Conc 34.8 g/dL (32.0-36.0); Mean Corpuscular Volume 91.1 fL (80.0-100.0); Mean Platelet Volume 10.3 fL (9.4-12.4); Platelet Count 130 K/uL (130-400); RDW Coefficient of Variation 13.4 % (11.5-14.5); RDW Standard Deviation 45.3 fL (36.4-46.3); Red Blood Count 4.36 M/uL (4.70-6.10); White Blood Count 7.53 K/ul (4.8-10.8)
[2024-01-25 03:38] LABS: ANTI-Xa, UFH(UnfractionatedHep 0.34 IU/ml (0.3-0.7)
[2024-01-25 03:50] LABS: BUN Creatinine Ratio 22.7 (10-20); Calcium 8.9 mg/dl (8.6-10.3); Creatinine Clr Calc Pharmacy 57.8 ml/min; Est GFR (African American) 63.9 ml/min; Est GFR (Non-African American) 55.2 ml/min; Potassium 4.3 mmol/L (3.5-5.1)
[2024-01-25 04:32] LABS: Troponin I High Sensitivity 28.6 pg/ml (0-20)
[2024-01-25] MEDS: GABAPENTIN 600 MG TAB PO SCH (09:38)
[2024-01-25] MEDS: allopurinoL 300 MG TAB PO SCH (09:39)
[2024-01-25] MEDS: CLOPIDOGREL BISULFATE 75 MG TAB PO SCH (09:42)
[2024-01-25] MEDS: SERTRALINE HCL 100 MG TABLET PO SCH (09:42)
[2024-01-25] MEDS: ASPIRIN 81 MG ECTAB PO SCH (09:43)
[2024-01-25] MEDS: THIAMINE HCL 100 MG in SYRINGE 9 ML IV SCH (09:44)
[2024-01-25] MEDS: FOLIC ACID 1 MG in SYRINGE 9.8 ML IV SCH (09:44)
--- NOTE | 2024-01-25 12:34 | Hospitalist Progress Note ---
Date of Service January 25, 2024 Assessment & Plan (1) ST elevation (STEMI) myocardial infarction: (2) Wide-complex tachycardia: (3) ETOH abuse: (4) CAD (coronary artery disease): (5) HTN (hypertension): (6) Dyslipidemia: (7) Hyperglycemia: (8) Chronic systolic congestive heart failure: Plan Patient with STEMI due to most likely thrombotic event in the setting of known coronary artery disease and being off his Plavix for colonoscopy. Communication with cardiology, Dr. Lopez, recommending continuing IV heparin for 48 hours and resuming his antiplatelet therapy. Extensive communication with patient and daughter at bedside, plan is to proceed with medical management and consider outpatient consultation for bypass grafting. No need for urgent transfer. Continue goal-directed medications for chronic systolic heart failure Check hemoglobin A1c No evidence of alcohol withdrawal Anticipate discharge home tomorrow after completing 48 hours of heparin Admission and Anticipated Discharge Date Admission Date: January 24, 2024 Subjective Patient denies any chest pain or shortness of breath. Physical Exam Physical Exam: Constitutional: Alert HEENT: Mucous membranes moist. Lungs: Clear to auscultation, decreased, no wheezes rales or rhonchi CV: S1-S2, regular Abdomen: Soft, nontender, nondistended, right groin no evidence of hematoma, no tenderness Extremities: No significant edema Neuro: No focal deficits Psych: Cooperative, normal mood Results & Data Results & Data Vital Signs (Past 12 Hours) Vital Signs Temp Pulse Resp BP Pulse Ox O2 Del Method 01/25/24 11:07 36.6 C 61 18 112/76 95 Room Air 01/25/24 07:28 36.5 C 62 18 122/88 97 Room Air 01/25/24 02:29 36.5 C 62 18 116/74 93 Room Air Diagnostic Findings Reviewed imaging, laboratory and diagnostic studies. Pertinent findings as below. Hemoglobin 13.8 Electrolytes stable Creatinine 1.2 Troponins reviewed, trending down (1) ST elevation (STEMI) myocardial infarction Involved coronary artery: unspecified coronary artery Qualified Code(s): I21.3 - ST elevation (STEMI) myocardial infarction of unspecified site
--- NOTE | 2024-01-25 12:48 | Electrocardiogram Report ---
Test Reason : Blood Pressure : / mmHG Vent. Rate : 056 BPM Atrial Rate : 056 BPM P-R Int : 266 ms QRS Dur : 114 ms QT Int : 414 ms P-R-T Axes : 071 007 137 degrees QTc Int : 399 ms Sinus bradycardia with 1st degree A-V block Inferior-posterior infarct (cited on or before 16-JAN-2023) Abnormal ECG When compared with ECG of 24-JAN-2024 08:16, SD interval has increased Vent. rate has decreased BY 30 BPM Nonspecific T wave abnormality no longer evident in Inferior leads T wave inversion more evident in Anterior leads QT has shortened Confirmed by Dandre Erwin ([id number]) on 01/25/2024 12:48:11 PM Referred By: REFERRED SELF Confirmed By:Dandre Erwin
--- NOTE | 2024-01-25 14:07 | Cardiology Progress Note ---
Date of Service January 25, 2024 Assessment & Plan (1) ST elevation (STEMI) myocardial infarction: (2) Ischemic cardiomyopathy: (3) CAD (coronary artery disease): (4) HTN (hypertension): (5) Wide-complex tachycardia: Plan: EKGs with conduction abnormalities but no QT prolongation Plan 73-year-old male with severe diffuse coronary artery disease status post remote coronary bypass grafting 1992 with severe [place] vessel disease, intact VICTORIA graft and intact TERRY graft who developed symptoms consistent with atypical angina while exercising on treadmill at cardiac rehab today in the setting of wide-complex tachycardia. EKG demonstrated acute ST inferior elevation on resolve of arrhythmia Cardiac catheterization done emergently demonstrates intact arterial grafts, patent stent the left anterior descending but probable lesion at the juncture of the distal right internal mammary artery and right coronary artery. The right internal mammary artery is very tortuous and lesion not likely amenable to coronary intervention on review with local interventionalists as well as [facility] Clinical history notable for recent hold clopidogrel for colonoscopy. Impression: Acute ST elevation infarct, transient, secondary to acute exercise- induced ischemia/arrhythmia Plan: Admit and trend enzymes assess for injury. IV heparin with plans of 48 hours administration. Continue clopidogrel and aspirin Follow for further arrhythmias. Will initially hold antiarrhythmic effect as this was likely ischemic in origin and baseline significant conduction abnormalities on outpatient EKGs Echocardiogram to assess LV systolic function Hold ranolazine Previously did not tolerate amlodipine due to hypotension will cautiously add oral nitrates 01/25/2024 Clinically and hemodynamically stable Echocardiogram not significantly changed from prior studies with ejection fraction 40-45% with old inferior posterior wall motion abnormality EKG without QT prolongation or worsening ischemic findings baseline first-degree AV block with Impression: Acute myocardial ischemia secondary to increased workload at cardiac rehab with underlying severe [place] vessel and graft coronary artery disease. Intact left internal mammary artery and right internal mammary artery graft with likely lesion distal to the right coronary at anastomosis with right coronary artery. Significant anatomy challenges would not allow coronary intervention Plan medical therapies. Complete 48 hours of IV heparin due to interruption in antiplatelet therapy recent. Oral nitrates added and may be possibly increased. Conduction system disease and bradycardia limits further increase in beta- jeffery. Currently no indications for antiarrhythmic therapy or pacer defibrillator. Ranolazone discontinued Discussed in detail with patient and daughter. Future goals will likely require reduction in exercise Admission and Anticipated Discharge Date Admission Date: January 24, 2024 Subjective Patient seen and personally examined. No chest pains or discomfort no cardiac complaints ambulatory in room without difficulty. No arrhythmias on telemetry. No bleeding issues on anticoagulation with IV heparin Tolerating oral nitrates without hypotension Review of Systems Review of Systems: All systems reviewed & are unremarkable except as noted in Subjective Physical Exam Constitutional: well developed and well nourished; no acute distress Eyes: PERRL, conjunctivae normal, anicteric sclerae ENMT: external ear and nose normal, oropharynx normal Neck: trachea midline, no thyromegaly Cardiovascular: Rate/Rhythm: regular rate and regular rhythm Heart Sounds: normal S1 and normal S2; no murmur Vessels: femoral pulses present (Right femoral access site intact) Gastrointestinal (Abdomen): normal bowel sounds, soft, nontender, no hepatosplenomegaly Musculoskeletal: no cyanosis or clubbing, extremities motor strength 5/5 Skin: no rashes, warm and dry Psychiatric: A+Ox3, euthymic affect Results & Data Vital Signs (Past 12 Hours) Vital Signs Temp Pulse Resp BP Pulse Ox O2 Del Method 01/25/24 11:07 36.6 C 61 18 112/76 95 Room Air 01/25/24 07:28 36.5 C 62 18 122/88 97 Room Air 01/25/24 02:29 36.5 C 62 18 116/74 93 Room Air Laboratory Results Laboratory Results - last 24 hr 01/24/24 01/24/24 01/25/24 16:35 20:02 03:11 WBC 7.53 RBC 4.36 L Hgb 13.8 L Hct 39.7 L MCV 91.1 MCH 31.7 MCHC 34.8 RDW Std Deviation 45.3 RDW Coeff of Long 13.4 Plt Count 130 MPV 10.3 Heparin Anti-Xa, Unfract 0.20 L 0.34 Sodium 138 Potassium 4.3 Chloride 105 Carbon Dioxide 26 Anion Gap 7 BUN 29 H Creatinine 1.28 Est Cr Clr Drug Dosing 57.8 Est GFR ( Amer) 63.9 Est GFR (Non-Af Amer) 55.2 BUN/Creatinine Ratio 22.7 H Glucose 166 H Calcium 8.9 Troponin I High Sens 41.4 H 32.5 H 28.6 H ECG Additional Comments: 25-JAN-2024 05:31:42 [facility] ROUTINE RETRIEVAL Sinus bradycardia with 1st degree A-V block Inferior-posterior infarct (cited on or before 16-JAN-2023) ST & T wave abnormality, consider lateral ischemia Abnormal ECG When compared with ECG of 24-JAN-2024 08:16, [place] interval has increased Vent. rate has decreased BY 30 BPM Nonspecific T wave abnormality no longer evident in Inferior leads T wave inversion more evident in Anterior leads QT has shortened (1) ST elevation (STEMI) myocardial infarction Involved coronary artery: unspecified coronary artery Qualified Code(s): I21.3 - ST elevation (STEMI) myocardial infarction of unspecified site
[2024-01-26 06:51] LABS: Hematocrit (blood only) 39.1 % (42.0-52.0); Hemoglobin 13.4 g/dl (14.0-18.0); Mean Corpuscular Hemoglobin 32.4 pg (25.0-34.0); Mean Corpuscular Hgb Conc 34.3 g/dL (32.0-36.0); Mean Corpuscular Volume 94.4 fL (80.0-100.0); Mean Platelet Volume 10.7 fL (9.4-12.4); Platelet Count 110 K/uL (130-400); RDW Coefficient of Variation 14.2 % (11.5-14.5); RDW Standard Deviation 48.8 fL (36.4-46.3); Red Blood Count 4.14 M/uL (4.70-6.10); White Blood Count 4.52 K/ul (4.8-10.8)
[2024-01-26 07:06] LABS: Calcium 9.1 mg/dl (8.6-10.3); Creatinine Clr Calc Pharmacy 56.9 ml/min; Est GFR (African American) 62.7 ml/min; Est GFR (Non-African American) 54.1 ml/min; Potassium 4.5 mmol/L (3.5-5.1)
[2024-01-26 07:17] LABS: ANTI-Xa, UFH(UnfractionatedHep 0.32 IU/ml (0.3-0.7)
[2024-01-26 08:10] LABS: Estimated Average Glucose 123 mg/dl; Hemoglobin A1C 5.9 % (4.5-5.6)
--- NOTE | 2024-01-26 11:40 | Cardiology Progress Note ---
Date of Service January 26, 2024 Assessment & Plan (1) ST elevation (STEMI) myocardial infarction: (2) Ischemic cardiomyopathy: (3) CAD (coronary artery disease): (4) HTN (hypertension): (5) Wide-complex tachycardia: Plan: EKGs with conduction abnormalities but no QT prolongation Plan 73-year-old male with severe diffuse coronary artery disease status post remote coronary bypass grafting 1992 with severe [place] vessel disease, intact VICTORIA graft and intact TERRY graft who developed symptoms consistent with atypical angina while exercising on treadmill at cardiac rehab today in the setting of wide-complex tachycardia. EKG demonstrated acute ST inferior elevation on resolve of arrhythmia Cardiac catheterization done emergently demonstrates intact arterial grafts, patent stent the left anterior descending but probable lesion at the juncture of the distal right internal mammary artery and right coronary artery. The right internal mammary artery is very tortuous and lesion not likely amenable to coronary intervention on review with local interventionalists as well as [facility] Clinical history notable for recent hold clopidogrel for colonoscopy. Impression: Acute ST elevation infarct, transient, secondary to acute exercise- induced ischemia/arrhythmia Plan: Admit and trend enzymes assess for injury. IV heparin with plans of 48 hours administration. Continue clopidogrel and aspirin Follow for further arrhythmias. Will initially hold antiarrhythmic effect as this was likely ischemic in origin and baseline significant conduction abnormalities on outpatient EKGs Echocardiogram to assess LV systolic function Hold ranolazine Previously did not tolerate amlodipine due to hypotension will cautiously add oral nitrates 01/25/2024 Clinically and hemodynamically stable Echocardiogram not significantly changed from prior studies with ejection fraction 40-45% with old inferior posterior wall motion abnormality EKG without QT prolongation or worsening ischemic findings baseline first-degree AV block with 01/26/2024: Clinically stable without recurrent symptoms. No events on telemetry. Stable, mild ischemic cardiomyopathy with old inferior posterior wall motion abnormality per echocardiogram. Impression: Acute myocardial ischemia secondary to increased workload at cardiac rehab with underlying severe [place] vessel and graft coronary artery disease. Intact left internal mammary artery and right internal mammary artery graft with likely lesion distal to the right coronary at anastomosis with right coronary artery. Significant anatomy challenges would not allow coronary intervention. Continue IV heparin for an additional 24 hours due to interruption in antiplatelet therapy recent. Oral nitrates added and may be possibly increased. Conduction system disease and bradycardia limits further increase in beta- jeffery. Currently no indications for antiarrhythmic therapy or pacer defibrillator. Ranolazone discontinued Discussed reducing/limiting exercise in future to avoid recurrent symptoms. Appropriate for sublingual nitroglycerin reviewed. Possible discharge in 24 hours. Admission and Anticipated Discharge Date Admission Date: January 24, 2024 Subjective 73-year-old male seen and examined at the bedside. Feeling well today. No dysrhythmia on telemetry demonstrating sinus bradycardia in the 50s to 60s. Denies recurrent chest discomfort or heaviness. Tolerating current medications. Offers no concerns/complaints. Review of Systems Review of Systems: All systems reviewed & are unremarkable except as noted in Subjective Physical Exam Constitutional: well developed and well nourished; no acute distress Respiratory: no respiratory distress, no labored breathing and no retractions Auscultation: no crackles, no rales, no rhonchi and no wheezes Cardiovascular: Rate/Rhythm: regular rate and regular rhythm Heart Sounds: normal S1, normal S2 and + murmur (2/6 systolic ejection murmur) Vessels: radial pulses present; no JVD Extremities: no edema Gastrointestinal (Abdomen): Inspection/Auscultation: abdomen normal to inspection and normal bowel sounds; abdomen not distended Percussion/Palpation: abdomen soft; abdomen nontender, no guarding and abdomen not rigid Neurologic: CN's II-XI intact bilaterally and moves all extremities; no focal motor deficits Results & Data Vital Signs (Past 12 Hours) Vital Signs Temp Pulse Resp BP Pulse Ox O2 Del Method 01/26/24 07:55 37.0 C 64 21 105/64 97 Room Air 01/26/24 03:26 36.9 C 51 L 16 126/77 96 Room Air Laboratory Results CBC 01/26/24 Range/Units 06:27 WBC 4.52 L (4.8-10.8) K/ul RBC 4.14 L (4.70-6.10) M/uL Hgb 13.4 L (14.0-18.0) g/dl Hct 39.1 L (42.0-52.0) % Plt Count 110 L (130-400) K/uL Comprehensive Metabolic Panel 01/26/24 Range/Units 06:26 Sodium 141 (136-145) mmol/L Potassium 4.5 (3.5-5.1) mmol/L Chloride 106 (98-107) mmol/L Carbon Dioxide 31 (21-32) mmol/L BUN 26 H (6-23) mg/dl Creatinine 1.30 (0.6-1.4) mg/dl Glucose 113 H (70-99(Fasting)) mg/dl Calcium 9.1 (8.6-10.3) mg/dl Intake and Output 01/25/24 01/26/24 01/26/24 22:59 06:59 14:59 Intake Total 480 / 811.484 200 / 811.484 368.55 / 368.55 Output Total 300 / 1550 450 / 1550 Balance 180 / -738.516 -250 / -738.516 368.55 / 368.55 Intake: IV 368.55 / 368.55 Heparin Sodium/Dextrose 25,000 368.55 / 368.55 units In 500 ml @ 1,050 UNITS/ HR 21 mls/hr IV .[id number] [facility] Rx #:[id number] Oral 480 / 680 200 / 680 Output: Urine 300 / 1550 450 / 1550 Other: Weight 96 kg Weight Measurement Method Built in [facility] (1) ST elevation (STEMI) myocardial infarction Involved coronary artery: unspecified coronary artery Qualified Code(s): I21.3 - ST elevation (STEMI) myocardial infarction of unspecified site
[2024-01-26] MEDS: GABAPENTIN 600 MG TAB PO SCH (13:13)
--- NOTE | 2024-01-26 13:28 | Hospitalist Progress Note ---
Date of Service January 26, 2024 Assessment & Plan (1) ST elevation (STEMI) myocardial infarction: Plan: Patient with STEMI due to most likely thrombotic event in the setting of known coronary artery disease and being off his Plavix for colonoscopy. Status post cardiac cath- Cardiac catheterization done emergently demonstrates intact arterial grafts, patent stent the left anterior descending but probable lesion at the juncture of the distal right internal mammary artery and right coronary artery. The right internal mammary artery is very tortuous and lesion not likely amenable to coronary intervention on review with local interventionalists as well as [facility] Appreciate cardiology input and recommendation Intravenous heparin will be continued for 48 hours Resumed antiplatelet therapy Remains medically stable today Oral nitrates have been added and the doses can be increased as per the cardiology Ranolazone has been discontinued Likely discharge tomorrow From prior Hospitalist: Extensive communication with patient and daughter at bedside, plan is to proceed with medical management and consider outpatient consultation for bypass grafting. No need for urgent transfer. (2) Wide-complex tachycardia: Plan: As above Ischemic cardiomyopathy Echocardiogram did not show significant change compared to prior studies with EF 40 to 45% with old posterior wall motion abnormality (3) ETOH abuse: Plan: No signs and or symptoms of withdrawal Advised to quit drinking (4) CAD (coronary artery disease): Plan: History of coronary bypass grafting in 1992 with severe [place] vessel disease, intact VICTORIA graft and intact TERRY graft Not having any cardiac symptoms now (5) HTN (hypertension): Plan: Blood pressure remains on the lower side (6) Dyslipidemia: (7) Hyperglycemia: Plan: Hemoglobin A1c minimally high at 5.9 Advised to diabetic diet and exercise (8) Chronic systolic congestive heart failure: Plan: Continue goal-directed medications for chronic systolic heart failure Ranolazine is on hold Admission and Anticipated Discharge Date Admission Date: January 24, 2024 Subjective 01/26/2024 The patient was seen and examined in telemetry unit He has been feeling much better and denies any cardiac symptoms Heart rate is maintaining blood pressure on the lower side of normal at 107/69 Wondering when he can be discharged Review of Systems Review of Systems: All systems reviewed and are unremarkable except as noted below Physical Exam Physical Exam: Sitting at the edge of the bed without any acute distress Constitutional: well developed, well nourished and + obese; not ill appearing Eyes: PERRL, conjunctivae normal, anicteric sclerae ENMT: external ear and nose normal, oropharynx normal Neck: trachea midline, no thyromegaly Respiratory: no respiratory distress Auscultation: lungs clear to auscultation bilaterally Cardiovascular: Rate/Rhythm: regular rate, regular rhythm and + bradycardic Heart Sounds: normal S1, normal S2 and + murmur Gastrointestinal (Abdomen): Inspection/Auscultation: normal bowel sounds; abdomen not distended Percussion/Palpation: abdomen soft; abdomen nontender Musculoskeletal: No acute arthritis involving any of the joints Neurologic: normal touch/pain/proprioception and moves all extremities; no focal motor deficits Psychiatric: A+Ox3, euthymic affect Lymphatic: no cervical or axillary lymphadenopathy Results & Data Results & Data Vital Signs (Past 12 Hours) Vital Signs Temp Pulse Resp BP Pulse Ox O2 Del Method 01/26/24 11:45 37.0 C 57 L 21 107/69 95 Room Air 01/26/24 07:55 37.0 C 64 21 105/64 97 Room Air 01/26/24 03:26 36.9 C 51 L 16 126/77 96 Room Air Laboratory Results Short CBC 01/26/24 Range/Units 06:27 WBC 4.52 L (4.8-10.8) K/ul Hgb 13.4 L (14.0-18.0) g/dl Hct 39.1 L (42.0-52.0) % Plt Count 110 L (130-400) K/uL BMP 01/26/24 06:26 Sodium 141 Potassium 4.5 Chloride 106 Carbon Dioxide 31 BUN 26 H Creatinine 1.30 Glucose 113 H Calcium 9.1 Medications Administered Current Inpatient Medications Acetaminophen (Acetaminophen 325 Mg Tab) 650 mg PO Q4H PRN PRN Reason: Pain or Fever Stop: 02/23/24 11:56 Al Hydrox/Mg Hydrox/Simethicone (Aluminum/Magnesium Susp 30 Ml Udc) 15 ml PO Q4H PRN PRN Reason: Dyspepsia Stop: 02/23/24 11:56 Allopurinol (Allopurinol 300 Mg Tab) 300 mg PO QPM [facility] Stop: 02/23/24 20:59 Last Admin: 01/25/24 20:48 Dose: 300 mg Allopurinol (Allopurinol 300 Mg Tab) 150 mg PO QAM [facility] Stop: 02/24/24 08:59 Last Admin: 01/26/24 08:58 Dose: 150 mg Aspirin (Aspirin 81 Mg Ectab) 81 mg PO [facility] Stop: 02/24/24 08:59 Last Admin: 01/26/24 08:57 Dose: 81 mg Clopidogrel Bisulfate (Clopidogrel Bisulfate 75 Mg Tab) [facility] Stop: 02/24/24 08:59 Last Admin: 01/26/24 08:58 Dose: 75 mg Famotidine (Famotidine 20 Mg Tab) 20 mg PO BID [facility] Stop: 02/23/24 20:59 Last Admin: 01/26/24 08:57 Dose: 20 mg Gabapentin (Gabapentin 600 Mg Tab) 600 mg PO Q12H [facility] Stop: 01/27/24 00:46 Last Admin: 01/26/24 13:13 Dose: 600 mg Gabapentin (Gabapentin 600 Mg Tab) 600 mg PO Q24H [facility] Stop: 01/28/24 00:46 Heparin Sodium/Dextrose (Heparin Sodium/Dextrose) 25,000 units in 500 mls @ 21 mls/hr IV .[id number] [facility]; Protocol Stop: 02/23/24 08:44 Last Admin: 01/26/24 13:12 Dose: 1,050 units/hr, 21 mls/hr Folic Acid 1 mg/ Syringe 10 mls @ 5 mls/min IV [facility] Stop: 02/24/24 08:59 Last Admin: 01/26/24 08:56 Dose: 5 mls/min Thiamine HCl 100 mg/ Syringe 10 mls @ 2 mls[facility] Stop: 02/24/24 08:59 Last Admin: 01/26/24 08:55 Dose: 2 mls/min Isosorbide Dinitrate (Isosorbide Dinitrate 20 Mg Tab) 20 mg PO [id number] [facility] Stop: 02/23/24 16:59 Last Admin: 01/26/24 09:00 Dose: 20 mg Lorazepam (Lorazepam 1 Mg Tab) 1 mg PO UD PRN; Protocol PRN Reason: EtOH Withdrawal AWSS Score 6+ Stop: 02/23/24 12:33 Magnesium Hydroxide (Magnesium Hydroxide Susp 30 Ml Udc) 30 ml PO Q12H PRN PRN Reason: Constipation Stop: 02/23/24 11:56 Metoprolol Succinate (Metoprolol Succ 25mg Ext Rel Tab) 25 mg PO BID [facility] Stop: 02/23/24 20:59 Last Admin: 01/26/24 08:59 Dose: 25 mg Ondansetron HCl (Ondansetron Inj 2 Mg/Ml 2 Ml Vial) 4 mg IV Q6H PRN PRN Reason: Nausea And Vomiting Stop: 02/23/24 10:22 Ondansetron HCl (Ondansetron Inj 2 Mg/Ml 2 Ml Vial) 4 mg IV Q6H PRN PRN Reason: Nausea Stop: 02/23/24 11:56 Pantoprazole Sodium (Pantoprazole 40 Mg Tab) 40 mg PO BID [facility] Stop: 02/23/24 20:59 Last Admin: 01/26/24 08:56 Dose: 40 mg Polyethylene Glycol (Polyethylene (Miralax) 17 Gm Pack) 17 gm PO DAILY PRN PRN Reason: Constipation Stop: 02/23/24 11:56 Sacubitril/Valsartan (Valsartan/Sacubitril 26/24mg Tab) 1 tab PO BID [facility] Stop: 02/23/24 20:59 Last Admin: 01/26/24 08:58 Dose: 1 tab Sertraline HCl (Sertraline Hcl 50 Mg Tablet) 50 mg PO QPM [facility] Stop: 02/23/24 20:59 Last Admin: 01/25/24 20:49 Dose: 50 mg Sertraline HCl (Sertraline Hcl 100 Mg Tablet) 100 mg PO QAM [facility] Stop: 02/24/24 08:59 Last Admin: 01/26/24 08:56 Dose: 100 mg Terazosin HCl (Terazosin Hcl 5 Mg Cap) 5 mg PO HS [facility] Stop: 02/23/24 20:59 Last Admin: 01/25/24 20:49 Dose: 5 mg (1) ST elevation (STEMI) myocardial infarction Involved coronary artery: unspecified coronary artery Qualified Code(s): I21.3 - ST elevation (STEMI) myocardial infarction of unspecified site
[2024-01-27 06:51] LABS: Basophils # (auto) 0.02 K/uL (0.00-0.20); Basophils % (auto) 0.5 %; Eosinophils # (auto) 0.07 K/uL (0.00-0.50); Eosinophils % (auto) 1.8 %; Hematocrit (blood only) 40.2 % (42.0-52.0); Hemoglobin 13.5 g/dl (14.0-18.0); Immature Granulocytes # (auto) 0.01 K/uL (0.01-0.20); Immature Granulocytes % (auto) 0.3 %; Lymphocytes # (auto) 0.93 K/uL (1.20-3.40); Lymphocytes % (auto) 24.2 %; Mean Corpuscular Hemoglobin 31.7 pg (25.0-34.0); Mean Corpuscular Hgb Conc 33.6 g/dL (32.0-36.0); Mean Corpuscular Volume 94.4 fL (80.0-100.0); Mean Platelet Volume 10.6 fL (9.4-12.4); Monocytes # (auto) 0.28 K/uL (0.11-0.59); Monocytes % (auto) 7.3 %; Neutrophils # (auto) 2.54 K/uL (1.40-6.50); Neutrophils % (auto) 65.9 %; Platelet Count 108 K/uL (130-400); RDW Standard Deviation 48.1 fL (36.4-46.3); Red Blood Count 4.26 M/uL (4.70-6.10); White Blood Count 3.85 K/ul (4.8-10.8)
[2024-01-27 07:14] LABS: BUN Creatinine Ratio 18.5 (10-20); Creatinine Clr Calc Pharmacy 56.9 ml/min; Est GFR (African American) 62.7 ml/min; Est GFR (Non-African American) 54.1 ml/min; Magnesium 2.2 mg/dl (1.7-2.4); Potassium 4.2 mmol/L (3.5-5.1)
[2024-01-27 07:22] LABS: ANTI-Xa, UFH(UnfractionatedHep 0.29 IU/ml (0.3-0.7)
--- NOTE | 2024-01-27 10:00 | Hospitalist Progress Note ---
Date of Service January 27, 2024 Assessment & Plan (1) ST elevation (STEMI) myocardial infarction: Plan: Patient with STEMI due to most likely thrombotic event in the setting of known coronary artery disease and being off his Plavix for colonoscopy. Status post cardiac cath- Cardiac catheterization done emergently demonstrates intact arterial grafts, patent stent the left anterior descending but probable lesion at the juncture of the distal right internal mammary artery and right coronary artery. The right internal mammary artery is very tortuous and lesion not likely amenable to coronary intervention on review with local interventionalists as well as [facility] Appreciate cardiology input and recommendation Intravenous heparin will be continued for 48 hours Resumed antiplatelet therapy Remains medically stable today Oral nitrates have been added and the doses can be increased as per the cardiology Ranolazone has been discontinued Remains medically stable without any cardiac symptoms He will be done with intravenous heparin at noon today He will be discharged this afternoon From prior Hospitalist: Extensive communication with patient and daughter at bedside, plan is to proceed with medical management and consider outpatient consultation for bypass grafting. No need for urgent transfer. (2) Wide-complex tachycardia: Plan: As above Ischemic cardiomyopathy Echocardiogram did not show significant change compared to prior studies with EF 40 to 45% with old posterior wall motion abnormality (3) ETOH abuse: Plan: No signs and or symptoms of withdrawal Advised to quit drinking (4) CAD (coronary artery disease): Plan: History of coronary bypass grafting in 1992 with severe [place] vessel disease, intact VICTORIA graft and intact TERRY graft Not having any cardiac symptoms now Oral nitrates have been added to control occasional chest pain and it has been working (5) HTN (hypertension): Plan: Blood pressure remains on the lower side Blood pressure remains stable at 142/95 this morning (6) Dyslipidemia: (7) Hyperglycemia: Plan: Hemoglobin A1c minimally high at 5.9 Advised to diabetic diet and exercise (8) Chronic systolic congestive heart failure: Plan: Continue goal-directed medications for chronic systolic heart failure Ranolazine is on hold No signs and or symptoms of fluid overload Admission and Anticipated Discharge Date Admission Date: January 24, 2024 Subjective 01/26/2024 The patient was seen and examined in telemetry unit He has been feeling much better and denies any cardiac symptoms Heart rate is maintaining blood pressure on the lower side of normal at 107/69 Wondering when he can be discharged 01/27/2024 The patient was seen and examined in telemetry unit He has been feeling much better and denies any symptoms He wants to go home today He will be done with intravenous heparin around 12 noon Review of Systems Review of Systems: All systems reviewed and are unremarkable except as noted below Physical Exam Physical Exam: Sitting at the edge of the bed without any acute distress Constitutional: well developed, well nourished and + obese; not ill appearing Eyes: PERRL, conjunctivae normal, anicteric sclerae ENMT: external ear and nose normal, oropharynx normal Neck: trachea midline, no thyromegaly Respiratory: no respiratory distress Auscultation: lungs clear to auscu ltation bilaterally Cardiovascular: Rate/Rhythm: regular rate, regular rhythm and + bradycardic Heart Sounds: normal S1, normal S2 and + murmur Gastrointestinal (Abdomen): Inspection/Auscultation: normal bowel sounds; abdomen not distended Percussion/Palpation: abdomen soft; abdomen nontender Neurologic: normal touch/pain/proprioception and moves all extremities; no focal motor deficits Psychiatric: A+Ox3, euthymic affect Lymphatic: no cervical or axillary lymphadenopathy Results & Data Results & Data Vital Signs (Past 12 Hours) Vital Signs Temp Pulse Pulse Resp BP Pulse Ox O2 Del Method 01/27/24 07:49 36.5 C 60 18 142/95 H 95 Room Air 01/27/24 02:29 36.9 C 61 18 108/67 94 Room Air 01/26/24 22:32 36.9 C 59 L 18 119/91 95 Room Air 01/26/24 22:00 61 Laboratory Results Short CBC 01/27/24 Range/Units 06:36 WBC 3.85 L (4.8-10.8) K/ul Hgb 13.5 L (14.0-18.0) g/dl Hct 40.2 L (42.0-52.0) % Plt Count 108 L (130-400) K/uL BMP 01/27/24 06:36 Sodium 141 Potassium 4.2 Chloride 106 Carbon Dioxide 30 BUN 24 H Creatinine 1.30 Glucose 115 H Calcium 9.0 Medications Administered Current Inpatient Medications Acetaminophen (Acetaminophen 325 Mg Tab) 650 mg PO Q4H PRN PRN Reason: Pain or Fever Stop: 02/23/24 11:56 Al Hydrox/Mg Hydrox/Simethicone (Aluminum/Magnesium Susp 30 Ml Udc) 15 ml PO Q4H PRN PRN Reason: Dyspepsia Stop: 02/23/24 11:56 Allopurinol (Allopurinol 300 Mg Tab) 300 mg PO QPM [facility] Stop: 02/23/24 20:59 Last Admin: 01/26/24 21:05 Dose: 300 mg Allopurinol (Allopurinol 300 Mg Tab) [facility] Stop: 02/24/24 08:59 Last Admin: 01/27/24 07:55 Dose: 150 mg Aspirin (Aspirin 81 Mg Ectab) 81 mg PO [facility] Stop: 02/24/24 08:59 Last Admin: 01/27/24 07:54 Dose: 81 mg Clopidogrel Bisulfate (Clopidogrel Bisulfate 75 Mg Tab) 75 mg PO [facility] Stop: 02/24/24 08:59 Last Admin: 01/27/24 07:55 Dose: 75 mg Famotidine (Famotidine 20 Mg Tab) 20 mg PO BID [facility] Stop: 02/23/24 20:59 Last Admin: 01/27/24 07:54 Dose: 20 mg Gabapentin (Gabapentin 600 Mg Tab) 600 mg PO Q24H [facility] Stop: 01/28/24 00:46 Heparin Sodium/Dextrose (Heparin Sodium/Dextrose) 25,000 units in 500 mls @ 23 mls/hr IV .[id number] [facility]; Protocol Stop: 02/23/24 08:44 Last Titration: 01/27/24 08:01 Dose: 1,150 units/hr, 23 mls/hr Folic Acid 1 mg/ Syringe 10 mls @ 5 mls/min [facility] Stop: 02/24/24 08:59 Last Admin: 01/27/24 07:56 Dose: 5 mls/min Thiamine HCl 100 mg/ Syringe 10 mls @ 2 mls/min [facility] Stop: 02/24/24 08:59 Last Admin: 01/27/24 07:55 Dose: 2 mls/min Isosorbide Dinitrate (Isosorbide Dinitrate 20 Mg Tab) 20 mg PO [id number] [facility] Stop: 02/23/24 16:59 Last Admin: 01/27/24 07:54 Dose: 20 mg Lorazepam (Lorazepam 1 Mg Tab) 1 mg PO UD PRN; Protocol PRN Reason: EtOH Withdrawal AWSS Score 6+ Stop: 02/23/24 12:33 Magnesium Hydroxide (Magnesium Hydroxide Susp 30 Ml Udc) 30 ml PO Q12H PRN PRN Reason: Constipation Stop: 02/23/24 11:56 Metoprolol Succinate (Metoprolol Succ 25mg Ext Rel Tab) 25 mg PO BID [facility] Stop: 02/23/24 20:59 Last Admin: 01/27/24 07:54 Dose: 25 mg Ondansetron HCl (Ondansetron Inj 2 Mg/Ml 2 Ml Vial) 4 mg IV Q6H PRN PRN Reason: Nausea And Vomiting Stop: 02/23/24 10:22 Ondansetron HCl (Ondansetron Inj 2 Mg/Ml 2 Ml Vial) 4 mg IV Q6H PRN PRN Reason: Nausea Stop: 02/23/24 11:56 Pantoprazole Sodium (Pantoprazole 40 Mg Tab) 40 mg PO BID [facility] Stop: 02/23/24 20:59 Last Admin: 01/27/24 07:54 Dose: 40 mg Polyethylene Glycol (Polyethylene (Miralax) 17 Gm Pack) 17 gm PO DAILY PRN PRN Reason: Constipation Stop: 02/23/24 11:56 Sacubitril/Valsartan (Valsartan/Sacubitril 26/24mg Tab) 1 tab PO BID [facility] Stop: 02/23/24 20:59 Last Admin: 01/27/24 07:54 Dose: 1 tab Sertraline HCl (Sertraline Hcl 50 Mg Tablet) 50 mg PO QPM [facility] Stop: 02/23/24 20:59 Last Admin: 01/26/24 21:05 Dose: 50 mg Sertraline HCl (Sertraline Hcl 100 Mg Tablet) 100 mg PO QAM [facility] Stop: 02/24/24 08:59 Last Admin: 01/27/24 07:55 Dose: 100 mg Terazosin HCl (Terazosin Hcl 5 Mg Cap) 5 mg PO HS [facility] Stop: 02/23/24 20:59 Last Admin: 01/26/24 21:05 Dose: 5 mg (1) ST elevation (STEMI) myocardial infarction Involved coronary artery: unspecified coronary artery Qualified Code(s): I21.3 - ST elevation (STEMI) myocardial infarction of unspecified site
--- NOTE | 2024-01-27 11:03 | Cardiology Progress Note ---
Date of Service January 27, 2024 Assessment & Plan (1) ST elevation (STEMI) myocardial infarction: (2) Ischemic cardiomyopathy: (3) CAD (coronary artery disease): (4) HTN (hypertension): (5) Wide-complex tachycardia: Plan: EKGs with conduction abnormalities but no QT prolongation Plan 73-year-old male with severe diffuse coronary artery disease status post remote coronary bypass grafting 1992 with severe [place] vessel disease, intact VICTORIA graft and intact TERRY graft who developed symptoms consistent with atypical angina while exercising on treadmill at cardiac rehab today in the setting of wide-complex tachycardia. EKG demonstrated acute ST inferior elevation on resolve of arrhythmia Cardiac catheterization done emergently demonstrates intact arterial grafts, patent stent the left anterior descending but probable lesion at the juncture of the distal right internal mammary artery and right coronary artery. The right internal mammary artery is very tortuous and lesion not likely amenable to coronary intervention on review with local interventionalists as well as [facility] Clinical history notable for recent hold clopidogrel for colonoscopy. Impression: Acute ST elevation infarct, transient, secondary to acute exercise- induced ischemia/arrhythmia Plan: Admit and trend enzymes assess for injury. IV heparin with plans of 48 hours administration. Continue clopidogrel and aspirin Follow for further arrhythmias. Will initially hold antiarrhythmic effect as this was likely ischemic in origin and baseline significant conduction abnormalities on outpatient EKGs Echocardiogram to assess LV systolic function Hold ranolazine Previously did not tolerate amlodipine due to hypotension will cautiously add oral nitrates 01/25/2024 Clinically and hemodynamically stable Echocardiogram not significantly changed from prior studies with ejection fraction 40-45% with old inferior posterior wall motion abnormality EKG without QT prolongation or worsening ischemic findings baseline first-degree AV block with 01/26/2024: Clinically stable without recurrent symptoms. No events on telemetry. Stable, mild ischemic cardiomyopathy with old inferior posterior wall motion abnormality per echocardiogram. 01/27/2024: Clinically stable without recurrent symptoms. Impression: Acute myocardial ischemia secondary to increased workload at cardiac rehab with underlying severe [place] vessel and graft coronary artery disease. Intact left internal mammary artery and right internal mammary artery graft with lesion distal to the right coronary at anastomosis with right coronary artery. Significant anatomy challenges would not allow coronary intervention. Discontinue IV heparin. Unable to tolerate amlodipine in the past due to hypotension. Ranolazine discontinued during hospitalization. Continue isosorbide dinitrate 20 mg twice daily. (Added during hospitalization) Conduction system disease and bradycardia limits titration of beta-jeffery. Currently no indications for antiarrhythmic therapy or pacer defibrillator. Discussed reducing/limiting exercise in future to avoid recurrent symptoms. Appropriate for sublingual nitroglycerin reviewed. Patient may be discharged from cardiac perspective. Admission and Anticipated Discharge Date Admission Date: January 24, 2024 Subjective Patient seen and examined at the bedside. Feeling well this morning. Denies recurrent chest pain or unusual shortness of breath. Telemetry reveals sinus rhythm in the 40s during sleep, up to the 60s while lying in bed. No lightheadedness, dizziness, syncope, or near syncope. Anxious for discharge. Offers no concerns/complaints. Review of Systems Review of Systems: All systems reviewed & are unremarkable except as noted in Subjective Physical Exam Constitutional: well developed and well nourished; no acute distress Respiratory: no respiratory distress, no labored breathing and no retractions Auscultation: no crackles, no rales, no rhonchi and no wheezes Cardiovascular: Rate/Rhythm: regular rate and regular rhythm Heart Sounds: normal S1, normal S2 and + murmur (2/6 systolic ejection murmur) Vessels: radial pulses present; no JVD Extremities: no edema Gastrointestinal (Abdomen): Inspection/Auscultation: abdomen normal to inspection and normal bowel sounds; abdomen not distended Percussion/Palpation: abdomen soft; abdomen nontender, no guarding and abdomen not rigid Neurologic: CN's II-XI intact bilaterally and moves all extremities; no focal motor deficits Results & Data Vital Signs (Past 12 Hours) Vital Signs Temp Pulse Resp BP Pulse Ox O2 Del Method 01/27/24 07:49 36.5 C 60 18 142/95 H 95 Room Air 01/27/24 02:29 36.9 C 61 18 108/67 94 Room Air Laboratory Results CBC 01/27/24 Range/Units 06:36 WBC 3.85 L (4.8-10.8) K/ul RBC 4.26 L (4.70-6.10) M/uL Hgb 13.5 L (14.0-18.0) g/dl Hct 40.2 L (42.0-52.0) % Plt Count 108 L (130-400) K/uL Neut # (Auto) 2.54 (1.40-6.50) K/uL Lymph # (Auto) 0.93 L (1.20-3.40) K/uL [place] # (Auto) 0.28 (0.11-0.59) K/uL Eos # (Auto) 0.07 (0.00-0.50) K/uL Baso # (Auto) 0.02 (0.00-0.20) K/uL Comprehensive Metabolic Panel 01/27/24 Range/Units 06:36 Sodium 141 (136-145) mmol/L Potassium 4.2 (3.5-5.1) mmol/L Chloride 106 (98-107) mmol/L Carbon Dioxide 30 (21-32) mmol/L BUN 24 H (6-23) mg/dl Creatinine 1.30 (0.6-1.4) mg/dl Glucose 115 H (70-99(Fasting)) mg/dl Calcium 9.0 (8.6-10.3) mg/dl Intake and Output 01/26/24 01/27/24 01/27/24 22:59 06:59 14:59 Intake Total 808.1 / 2226.50 200 / 2226.50 267.05 / 267.05 Output Total 1600 / 2575 975 / 2575 Balance -791.9 / -348.50 -775 / -348.50 267.05 / 267.05 Intake: IV 128.1 / 626.50 267.05 / 267.05 Heparin Sodium/Dextrose 25,000 128.1 / 626.50 267.05 / 267.05 units In 500 ml @ 1,050 UNITS/ HR 21 mls/hr IV .[id number] [facility] Rx #:[id number] Oral 680 / 1600 200 / 1600 Output: Urine 1600 / 2575 975 / 2575 Other: # Unmeasured Voids 2 Weight 96.1 kg (1) ST elevation (STEMI) myocardial infarction Involved coronary artery: unspecified coronary artery Qualified Code(s): I21.3 - ST elevation (STEMI) myocardial infarction of unspecified site (3) CAD (coronary artery disease) Coronary Disease-Associated Artery/Lesion type: [place] artery [place] vs. transplanted heart: [place] heart Associated angina: with stable angina Qualified Code(s): I25.118 - Atherosclerotic heart disease of [place] coronary artery with other forms of angina pectoris (4) HTN (hypertension) Hypertension type: primary hypertension Qualified Code(s): I10 - Essential (primary) hypertension
--- NOTE | 2024-01-27 16:47 | Discharge Summary ---
Date of Service January 27, 2024 Admission HPI Per Admitting Provider Mr. Jamil is a 73-year-old male that presented to the ED today from cardiac rehab as he was experiencing chest pain. Patient has a complex cardiac history including CAD with history of CABG x 5 in 2013 with a last most recent stent placed 2022. ECG revealed wide-complex tachycardia and he was sent to [facility] for further evaluation. Additional past medical history includes HFrEF, colon cancer status post partial sigmoid colectomy 2013, history of alcohol abuse, history of TIA, HTN, HLD, and GERD. In the ED, ECG x [address] elevation noted in leads III and aVF; indicating inferior wall CT. No leukocytosistroponin 22.3, creatinine slightly elevated from baseline 1.53; baseline 1.2-1.4. Dr. Tello was contacted from the ED and patient was taken to cardiac Logger for emergent catheterization and exploration. Per review and discussion with Dr. Tello IVAN VICTORIA grafts are patent. Patient has severe [place] vessel disease with occluded vein graft to marginal branch vessels including 80% ramus stenosis just before anastomosis with PDA. Most recent outpatient cardiology appointment 04/02/2023 status post stent placement. As indicated patient has significant CAD status post CABG x 3 VICTORIA to LAD, TERRY to distal RCA, SVG to OM1, SVG to OM 2. He further had an acute STEMI 11/20/2022 and his cath at that time revealed 90% stenosis of the VICTORIA to LAD for which he was transferred to [facility] for further intervention and evaluation. Additionally of note he has HFrEF with a recent acute exacerbation of CHF which required inpatient stay here at [facility] 12/2022. At that time his LVEF was 45%. Most recent echocardiogram 12/29/2022 reduced EF 45 to 50% septal wall motion abnormalities noted with moderate hypokinesis. Mild AR, moderate MR, mild TR noted. Patient notes that he drinks 4 shots of liquor 5 out of 7 days. His last drink was yesterday. No tremors. Has never had any seizure or withdrawal symptoms. Denies tobacco or recreational drug use including medical marijuana. Patient will be admitted to PCU s/p PCI for further evaluation and management. Please see A/P for further details. Admission Exam Per Admitting Provider Physical Exam: Neuro: AAOx4, PERRLA, no aphagia, memory changes, CNII-XII grossly intact HEENT: head normocephalic, moist mucus membranes CV: S1/S2, (-) M/G/R, (-) edema, cap refill < 3 seconds. R groin approach for cath; no bleeding; lying flat per protocol Resp: Lungs CTA in all munoz. On RA GI: Abdomen S/NT/ND, Ax4 bowel sounds, (-) CVA tenderness Musculoskeletal: 5/5 B/L UE strength, 5/5 B/L LE strength. No gait disturbance Skin: (-) rashes , (-) erythema. Psych: euthymic mood Principal Diagnosis STEMI, status postcardiac cath for medical management, CAD status post CABG, hypertension, chronic systolic heart failure Discharge Exam Sitting at the edge of the bed without any acute distress Constitutional well developed, well nourished and + obese; not ill appearing Eyes PERRL, conjunctivae normal, anicteric sclerae ENMT external ear and nose normal, oropharynx normal Neck trachea midline, no thyromegaly Respiratory no respiratory distress Auscultation: lungs clear to auscultation bilaterally Cardiovascular Rate/Rhythm: regular rate, regular rhythm and + bradycardic Heart Sounds: normal S1, normal S2 and + murmur Gastrointestinal (Abdomen) Inspection/Auscultation: normal bowel sounds; abdomen not distended Percussion/Palpation: abdomen soft; abdomen nontender Neurologic normal touch/pain/proprioception and moves all extremities; no focal motor deficits Psychiatric A+Ox3, euthymic affect Lymphatic no cervical or axillary lymphadenopathy Discharge Data Allergies Allergy/AdvReac Type Severity Reaction Status Date / Time Iodinated Contrast Media Allergy Severe Anaphylaxis Verified 08/09/23 10:12 Bwtjydh-ZTG-GmU Reductase Allergy Unknown MUSCLE Verified 08/09/23 10:12 Inhibitor ACHES [Dniduge-Tzr-Igk Reductase Inhibitor] Consultations 01/24/24 11:57 Consult Cardiology Routine Procedures Performed Operation Date: 01/24/24 08:30 Actual Procedures s Cineradiography w/Routine Exam - Abdiaziz Tello MD p Cath, Left w/Cors Vent Grafts(Right) - Abdiaziz Tello MD s Ultrasound Vascular Access - Abdiaziz Tello MD Ordered Studies 01/24/24 08:19 CL Cath Imgs for PACS use only Stat Hospital Course (1) ST elevation (STEMI) myocardial infarction: Patient with STEMI due to most likely thrombotic event in the setting of known coronary artery disease and being off his Plavix for colonoscopy. Status post cardiac cath- Cardiac catheterization done emergently demonstrates intact arterial grafts, patent stent the left anterior descending but probable lesion at the juncture of the distal right internal mammary artery and right coronary artery. The right internal mammary artery is very tortuous and lesion not likely amenable to coronary intervention on review with local interventionalists as well as [facility] Appreciate cardiology input and recommendation Intravenous heparin will be continued for 48 hours Resumed antiplatelet therapy Remains medically stable today Oral nitrates have been added and the doses can be increased as per the ca rdiology Ranolazone has been discontinued Remains medically stable without any cardiac symptoms He will be done with intravenous heparin at noon today He will be discharged this afternoon From prior Hospitalist: Extensive communication with patient and daughter at bedside, plan is to proceed with medical management and consider outpatient consultation for bypass grafting. No need for urgent transfer. (2) Wide-complex tachycardia: As above Ischemic cardiomyopathy Echocardiogram did not show significant change compared to prior studies with EF 40 to 45% with old posterior wall motion abnormality (3) ETOH abuse: No signs and or symptoms of withdrawal Advised to quit drinking (4) CAD (coronary artery disease): History of coronary bypass grafting in 1992 with severe [place] vessel disease, intact VICTORIA graft and intact TERRY graft Not having any cardiac symptoms now Oral nitrates have been added to control occasional chest pain and it has been working (5) HTN (hypertension): Blood pressure remains on the lower side Blood pressure remains stable at 142/95 this morning (6) Dyslipidemia: (7) Hyperglycemia: Hemoglobin A1c minimally high at 5.9 Advised to diabetic diet and exercise (8) Chronic systolic congestive heart failure: Continue goal-directed medications for chronic systolic heart failure Ranolazine is on hold No signs and or symptoms of fluid overload Total Time Total Time Spent Total Time Spent (In Minutes): 35 minutes Discharge Plan Discharge Items Patient Disposition: Home - Self-Care Reason For Visit: stemi Discharge Diagnosis: STEMI, status postcardiac cath for medical management, CAD status post CABG, hypertension, chronic systolic heart failure Condition on Discharge: Fair Activity: Resume your previous activity Non-emergency contact: Primary Care Provider Call non-emergency contact if: you have any medication questions and your symptoms worsen Follow-up/Referrals: Miguel Suarez MD [Primary Care Provider] - (Date & Time 02/01/2024 9:40 AM Provider Karan Kramer MD Department Family Practice [facility] ) Herbie Collins DO [Air Pollution Control Engineer] - (The Cardiology office will contact you for a follow up appointment.) Diet: Heart Healthy Diet Texture: Easy to Chew Addtl Attending Provider Instructions: Please take precautions to avoid falls Your ranolazine has been discontinued New medication-isosorbide dinitrate 20 mg twice a day Your metoprolol succinate has been decreased to 25 mg twice a day Take your medications as advised Please keep appointments with healthcare providers Pending Studies at Discharge: No Stand-Alone Forms: My [facility] [employer], Smoking Cessation Medications and DC Order Prescriptions: New gabapentin 600 mg Tablet 600 mg PO Q24H Qty: 30 0RF isosorbide dinitrate 20 mg Tablet 20 mg PO [id number] Qty: 60 0RF metoprolol succinate 25 mg Tablet Extended Release 24 Hr 25 mg PO BID Qty: 60 0RF Continued fluocinonide 0.05 % cream 1 applic topical BID PRN (Reason: Rash) sertraline 100 mg tablet 100 mg PO QAM Patient Comments: took 50 mg this morning Rx Instructions: 100mg by mouth in the morning and 50mg by mouth at bedtime terazosin 2 mg Capsule 5 mg PO HS cholecalciferol (vitamin D3) [Vitamin D3] 5,000 unit Tablet 5,000 unit PO QAM clopidogrel [Plavix] 75 mg Tablet 75 mg PO QAM nitroglycerin [Nitrostat] 0.4 mg Tablet, Sublingual 0.4 mg Sublingual UD PRN (Reason: Chest Pain) Rx Instructions: ONE TABLET UNDER THE TONGUE EVERY 5 MINUTES UP TO 3 DOSES FOR CHEST PAIN. vitamin E 400 unit Capsule 400 unit PO QAM fluticasone propionate 50 mcg/actuation [place],Suspension 2 spray INTRANASAL DAILY PRN (Reason: Nasal Congestion) aspirin 81 mg Tablet,Delayed Release (Dr/Ec) 81 mg PO AMPM Entresto 24-26 mg Tablet 1 tab PO BID allopurinol 300 mg Tablet 300 mg PO QPM sertraline [Zoloft] 50 mg Tablet 50 mg PO QPM pyridoxine (vitamin B6) [Vitamin B-6] 100 mg Tablet 100 mg PO QAM cyanocobalamin (vitamin B-12) [Vitamin B-12] 1,000 mcg Tablet 1,000 mcg PO DAILY famotidine 20 mg tablet 20 mg PO BID pantoprazole 40 mg tablet,delayed release (DR/EC) 40 mg PO BID allopurinol 300 mg tablet 150 mg PO QAM Formulas Testosterone Cap 1 tab PO DAILY furosemide 20 mg tablet 20 mg PO DAILY PRN (Reason: Edema) Discontinued nitroglycerin 0.6 mg/hr patch 24 hour 0 patch topical DAILY Rx Instructions: Patient wears patch for 12 hours on 12 hours off. Original directions: 1 patch topically daily metoprolol succinate 50 mg tablet extended release 24 hr 50 mg PO QAM amlodipine 10 mg tablet 10 mg PO QAM ranolazine 500 mg tablet extended release 12 hr 500 mg PO BID No Action Praluent Pen 150 mg/mL Pen Injector 150 mg SUBCUT .[id number] Patient Comments: Due 12/17 Discharge Orders: Discharge Order (Routine); Ordered 01/27/24 Ordered By: Cielo Molina Discharge Order- CHF (Routine); Ordered 01/27/24 Ordered By: Cielo Molina Admission Data Admit Date/Time: 01/24/24 08:41 Attending Provider: Cielo Molina Admit Provider: Dominic Almeida Primary Care Provider: Miguel Suarez Other Providers: Tha Lopez; [facility]; Dominic Almeida Other Interventions: Discharge Summary Assessment (RN) Last Done: 01/27/24 12:06
[2024-01-28] MEDS ORDERED: GABAPENTIN 600 MG TAB PO SCH (00:45)
== END 2024-01-27 13:42 | disposition home or self-care (01) | DRG 281 ==
LOC: ED 08:13 → OR 08:33 → SUATTDRO 08:41 → 2E 08:41

== ENCOUNTER 2025-02-18 19:16 | Inpatient (IN) ==
[2025-02-18] MEDS: ASPIRIN CHEW 324 MG PO STA (19:38)
[2025-02-18] MEDS: NITROGLYCERIN 2% OINTMENT 30GM TUBE EXT STA (19:38)
--- NOTE | 2025-02-18 19:41 | Emergency Department Note ---
Impression & Plan Precordial chest pain, Elevated troponin, History of coronary artery disease, DVT (deep venous thrombosis) ED Provider Note NAME: DOROTA WINTER AGE: 74 SEX: M : 1950 ARRIVES VIA: Walk-In INFORMANT: [Patient][family] ED PROVIDER(S): [Tyler Daniels MD] CHIEF COMPLAINT: Chest pain HISTORY OF PRESENT ILLNESS: The patient is a 74-year-old male with a history of coronary disease. The patient states that he was having some knee pain today so he put a wrap on the left knee. He fell asleep. When he awoke, he noticed that his left leg was a bit swollen. Patient states that around 6 hours ago he noticed some right sided chest pain and some shortness of breath. He did take a diuretic and also took a nitroglycerin. His daughter arrived and he was sweaty and pale. The patient did take a second nitroglycerin at some point throughout the afternoon. The patient presents with ongoing right-sided chest pain that does seem worse with exertion. He feels short of breath with exertion as well. He does feel better than he did earlier though. The patient did recently recover from bronchitis. He takes aspirin and Plavix at baseline. PMHx/PSHx/Social Hx: See Below PHYSICAL EXAM: GENERAL: Patient is in no acute distress. HEENT: No acute trauma, normocephalic atraumatic, mucous membranes moist, no nasal congestion. NECK: No stridor, no adenopathy, no meningismus, trachea is midline. LUNGS: Clear to auscultation bilaterally, no wheeze, no rhonchi, breath sounds equal. Chest: Tender to the right anterior chest wall over the breast. HEART: Without murmurs gallops or rubs, regular rate and rhythm. ABDOMEN: Soft, nontender, no peritonitis. EXTREMITIES: No cyanosis, full range of motion of all the joints without pain or difficulty. Left lower leg is edematous when compared to the right. NEUROLOGIC: Oriented x 3, no acute motor or sensory deficits, no focal weakness. SKIN: No jaundice, no diaphoresis. DIFFERENTIAL DIAGNOSIS: PA, dysrhythmia, CHF, PE, DVT, among others. EMERGENCY DEPARTMENT PROCEDURES: MEDICAL DECISION MAKING: There is no leukocytosis. A very mild anemia was seen. Platelet count was somewhat low at 93. No coagulopathy. No renal failure or significant electrolyte abnormality. There were some subtle liver enzyme elevations, the bilirubin was normal. No evidence for pancreatitis. Chest x-ray does not show CHF or pneumonia. BNP was somewhat elevated consistent with some potential fluid overload. ECG showed a left bundle branch block. The left bundle was new compared to older ECGs. Cardiac enzyme testing x 1 did show an elevation consistent with cardiac injury. Left leg ultrasound does show a DVT. On exam, the patient was feeling markedly improved compared to earlier. He did have some subtle right sided reproducible chest pain. The patient was given nitroglycerin paste, he was given oral aspirin. He was eventually placed on a heparin drip after an IV heparin bolus. I did talk with interventional cardiology. For now, the patient is to be managed medically. He is not a candidate for coronary intervention this evening. I did speak with the patient and his daughter. I did speak with case management. The on-call hospitalist was consulted. In short, the patient has suffered a cardiac event. His ECG is changed. With his DVT findings, PE is certainly a consideration. Further workup is warranted inpatient. Prior/Outside records/notes reviewed: None ECG per my interpretation: Indication was chest pain. The ECG shows a sinus rhythm with a first-degree AV block. There is a left bundle branch block. There are some inverted T waves in the inferior and lateral leads. There is no acute ST elevation, no PVCs. QTc is 508. Compared to an ECG from 25 January 2024, significant changes have occurred. The left bundle branch block is now present. Continuous Cardiac Monitoring per my interpretation: An order was placed for continuous cardiac monitoring. The monitor shows a rate of 86 with sinus rhythm with a first AV block. Imaging/x-ray results per my interpretation: Chest x-ray does not show mediastinal widening, pneumonia or pneumothorax. He does have old rib fractures on the right. Chronic Medical/Social conditions affecting care: Advanced age, history of previous PA. Care/Management discussed with: Case management, the on-call hospitalist. Interventional cardiology-Dr. Phillips Level of care consideration(s): After review of the information above and other included data: --I believe the patient requires escalation of care to admission Critical Care Note: I have personally spent 61 minutes of critical care time in the direct management of this patient. This includes bedside care, interpretation of diagnostic studies, and testing, discussion with consultants, patient, and family members, and other required patient management activities. This 61 minutes is in excess of all separately billable procedures. DISPOSITION: Admission Past Med/Surg History Problem List DVT (deep venous thrombosis) (Acute) History of coronary artery disease (Acute) Elevated troponin (Acute) Precordial chest pain (Acute) Chronic systolic congestive heart failure Hyperglycemia V tach (Acute) Chest pain (Acute) History of TIA (transient ischemic attack) -"SHOWS 7 ON SCANS" PER PT-F/U Wide-complex tachycardia Acute bronchitis Nausea (Acute) Cough (Acute) Headache (Acute) SOB (shortness of breath) (Acute) Ischemic cardiomyopathy ST elevation (STEMI) myocardial infarction (Acute) TIA (transient ischemic attack) (Chronic) Alcohol abuse (Chronic) Acute kidney injury (Acute) Bronchitis (Acute) Left shoulder pain (Acute) Near syncope (Acute) Syncope Small bowel obstruction (Acute) Abdominal pain (Acute) ETOH abuse Thrombocytopenia Encounter for pre-operative examination Arthritis of knee, left Ureteral calculus, left Bilateral nephrolithiasis Hydronephrosis, left Angina pectoris, unstable (Acute) H/O crescendo angina Elevated troponin (Acute) CHF exacerbation SOB (shortness of breath) (Acute) Elevated troponin (Acute) CHF (congestive heart failure) (Acute) Recent myocardial infarction (Acute) Acute heart failure with reduced ejection fraction and diastolic dysfunction CAD (coronary artery disease), [place] coronary artery LBBB (left bundle branch block) Acute on chronic renal insufficiency SBO (small bowel obstruction) (Acute) Infarction of spleen (Acute) Abnormal EKG Alcohol use Nocturnal hypoxia History of colon cancer dx 2017; treated surgically + oral chemo Depression BPH with obstruction/lower urinary tract symptoms CAD (coronary artery disease) (Chronic) "1992 - CABG x 5 09/2016 - [place] to SVG of OM 10/2016 - repeat cath, no lesions amenable to intervention, medical management recommended" Follows with Dr. Kaiser HTN (hypertension) (Chronic) GERD (gastroesophageal reflux disease) (Chronic) Well controlled and stable with med Dyslipidemia (Chronic) On injectable medications - cannot tolerate statins Gout (Chronic) No current issues BPH (benign prostatic hyperplasia) (Chronic) History of carpal tunnel surgery (Chronic) H/O arthroscopic knee surgery (Chronic) mult BL H/O toe surgery (Chronic) History of partial colectomy (Chronic) History of tonsillectomy and adenoidectomy (Chronic) Medical History Myocardial Infarction 11/20/2022 Temporomandibular joint disorder CLICKS NO LOCKING Prediabetes Diet controlled History of intestinal obstruction No recent issues History of TMJ disorder Occ jaw clicking - no jaw locking Hearing deficit [place] Has hearing aids - not wearing hearing aids Anxiety On home oxygen therapy 2 LPM qHS- does not always use secondary to nasal dryness History of COVID-19 08/2020; asymptomatic -TESTED BY [facility] Chronic idiopathic thrombocytopenia F/U PCP Surgical History History of colonoscopy H/O heart artery stent x 1 S/P CAB[facility] of cardiac catheter[facility] - [facility] stent Family History Father Diabetes Esophagus cancer Stomach cancer Heart disease Other No family history of adverse response to anesthesia Social History Smoking Status: Former smoker Tobacco Type: Cigarettes Second Hand Exposure: No; Do You Dip or Chew Tobacco: No; Hx Alcohol Use: Yes Alcohol type: beer Hx Substance Use: No Preferred Language: Lao Communication Ability: Effective Chief Counsel Required: No Beliefs That Will Affect Care: None marital status: Current Living Situation: Family Current Living Situation Comment: family has apartment underneath patients home current occupational status: 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 Feels Safe at Home: Yes Assistive Devices: Cane and Crutches Allergies Allergies Allergy/AdvReac Type Severity Reaction Status Date / Time fluticasone furoate Allergy Severe CHEST Verified 02/18/25 20:51 [From Breo Ellipta] TIGHTNESS Iodinated Contrast Media Allergy Severe Anaphylaxis Verified 02/18/25 20:51 /Itching vilanterol Allergy Severe CHEST Verified 02/18/25 20:51 [From Breo Ellipta] TIGHTNESS Ussuofj-OCC-ZiG Reductase AdvReac Intermediate MUSCLE Verified 02/18/25 20:51 Inhibitor ACHES [Uphtjyx-Nqp-Hle Reductase Inhibitor] Home Meds Home Medications Medication Instructions Recorded Confirmed clopidogrel 75 mg tablet (Plavix) 75 mg PO QAM 05/22/18 02/18/25 nitroglycerin 0.4 mg sublingual 0.4 mg sublingual UD PRN Chest Pain 05/22/18 02/18/25 tablet (Nitrostat) terazosin 2 mg capsule 2 mg PO HS 05/22/18 02/18/25 sertraline 100 mg tablet 200 mg PO QDD 01/07/21 02/18/25 fluticasone propionate 50 1 spray intranasal DAILY PRN Nasal 01/10/21 02/18/25 mcg/actuation nasal Congestion spray,suspension Formulas Testosterone Cap 1 tab PO DAILY 12/16/22 02/18/25 alirocumab 150 mg/mL subcutaneous 150 mg subcut .[id number] 12/16/22 02/18/25 pen injector (Praluent Pen) allopurinol 300 mg tablet 150 mg PO QAM 12/16/22 02/18/25 famotidine 20 mg tablet 20 mg PO BID 12/16/22 02/18/25 pantoprazole 40 mg tablet,delayed 40 mg PO BID 12/16/22 02/18/25 release furosemide 20 mg tablet 20 mg PO DAILY PRN Edema 01/16/23 02/18/25 sacubitril 24 mg-valsartan 26 mg 0.5 tab PO BID 04/02/23 02/18/25 tablet (Entresto) allopurinol 300 mg tablet 300 mg PO QPM 09/01/23 02/18/25 aspirin 81 mg chewable tablet 81 mg PO DAILY 02/18/25 02/18/25 benzonatate 100 mg capsule 100 mg PO TID PRN Cough 02/18/25 02/18/25 coenzyme Q10 100 mg capsule 200 mg PO DAILY 02/18/25 02/18/25 (CoQ-10) magnesium oxide 500 mg PO DAILY 02/18/25 02/18/25 metoprolol succinate 25 mg 25 mg PO QAM 02/18/25 02/18/25 tablet,extended release 24 hr ranolazine 500 mg tablet,extended 500 mg PO BID 02/18/25 02/18/25 release,12 hr Previous Rx's Medication Instructions Recorded isosorbide dinitrate 20 mg tablet 20 mg PO BID17 #60 tabs 01/27/24 Results & Data (ED) Vital Signs Vital Signs - 24 hr 02/18/25 19:20 02/18/25 19:30 02/18/25 19:31 Temperature 36.8 C Temperature Source Temporal Artery Scan Pulse Rate 84 86 80 Respiratory Rate 18 20 Respiratory Effort / Characteristics Non-Labored Spontaneous Respiratory Depth Normal Respiratory Pattern Regular Blood Pressure 137/94 125/94 Blood Pressure Mean 108 107 Blood Pressure Position Sitting Pulse Oximetry 92 92 Oxygen Delivery Method Room Air Oxygen Flow Rate Sepsis Recent Fever Within 48 Hours No Sepsis New/Unexplained Change in Mental Status N/A Sepsis Action Taken by Nursing No Action Required 02/18/25 19:32 02/18/25 19:50 02/18/25 20:00 Temperature Temperature Source Pulse Rate 76 76 Respiratory Rate 16 14 Respiratory Effort / Characteristics Respiratory Depth Respiratory Pattern Blood Pressure 139/89 131/83 Blood Pressure Mean 104 91 Blood Pressure Position Pulse Oximetry 94 93 94 Oxygen Delivery Method Room Air Oxygen Flow Rate 0 Sepsis Recent Fever Within 48 Hours Sepsis New/Unexplained Change in Mental Status Sepsis Action Taken by Nursing 02/18/25 20:10 Temperature Temperature Source Pulse Rate 76 Respiratory Rate 14 Respiratory Effort / Characteristics Respiratory Depth Respiratory Pattern Blood Pressure 130/85 Blood Pressure Mean 121 Blood Pressure Position Pulse Oximetry 94 Oxygen Delivery Method Oxygen Flow Rate Sepsis Recent Fever Within 48 Hours Sepsis New/Unexplained Change in Mental Status Sepsis Action Taken by Residential Medications Current Medication List: was personally reviewed by me Laboratory Data Attestation: I reviewed the patient's lab results. 02/18/25 19:40 02/18/25 19:40 Lab Results 02/18/25 Range/Units 19:40 WBC 5.92 (4.8-10.8) K/ul RBC 4.15 L (4.70-6.10) M/uL Hgb 13.3 L (14.0-18.0) g/dl Hct 39.6 L (42.0-52.0) % MCV 95.4 (80.0-100.0) fL MCH 32.0 (25.0-34.0) pg MCHC 33.6 (32.0-36.0) g/dL RDW Std Deviation 50.6 H (36.4-46.3) fL RDW Coeff of Long 14.6 H (11.5-14.5) % Plt Count 93 L (130-400) K/uL MPV 10.7 (9.4-12.4) fL Immature Gran % (Auto) 0.2 % Neut % (Auto) 79.7 % Lymph % (Auto) 10.8 % [place] % (Auto) 7.8 % Eos % (Auto) 1.2 % Baso % (Auto) 0.3 % Neut # (Auto) 4.72 (1.40-6.50) K/uL Lymph # (Auto) 0.64 L (1.20-3.40) K/uL [place] # (Auto) 0.46 (0.11-0.59) K/uL Eos # (Auto) 0.07 (0.00-0.50) K/uL Baso # (Auto) 0.02 (0.00-0.20) K/uL Immature Gran # (Auto) 0.01 (0.01-0.20) K/uL PT 10.4 (9.0-12.0) Seconds INR 1.0 (0.9-1.1) APTT 26 (21-31) Seconds PTT Ratio 1.0 Sodium 140 (136-145) mmol/L Potassium 4.3 (3.5-5.1) mmol/L Chloride 105 (98-107) mmol/L Carbon Dioxide 27 (21-32) mmol/L Anion Gap 8 (3-11) BUN 23 (6-23) mg/dl Creatinine 1.20 (0.6-1.4) mg/dl Est Cr Clr Drug Dosing 59.5 ml/min eGFR 63.46 BUN/Creatinine Ratio 19.2 (10-20) Glucose 109 H (70-99(Fasting)) mg/dl Calcium 9.0 (8.6-10.3) mg/dl Magnesium 2.1 (1.7-2.4) mg/dl Total Bilirubin 1.0 (0.2-1.0) mg/dl AST 64 H (13-39) U/L ALT 68 H (7-52) U/L Alkaline Phosphatase 48 (34-104) U/L Troponin I High Sens 274.4 H* (0-20) pg/ml B-Natriuretic Peptide 648 H (0-100) pg/ml Total Protein 7.1 (6.0-8.3) gm/dl Albumin 4.2 (3.4-5.0) gm/dl Globulin 2.9 (2.5-4.0) gm/dl Albumin/Globulin Ratio 1.4 (0.9-2) Lipase 27 (11-82) U/L Administered Medications Heparin Sodium/Dextrose (Heparin 37859 Unit/500 Ml D5w) 25,000 units in 500 mls @ 19 mls/hr IV .Q24H [place]; Protocol Stop: 03/20/25 20:59 Last Admin: 02/18/25 21:16 Dose: 950 units/hr, 19 mls/hr Documented By: RACHID Co-signed By: FABRICE Discontinued Medications Aspirin (Aspirin Chew 324 Mg) 324 mg PO NOW STA Stop: 02/18/25 19:34 Last Admin: 02/18/25 19:38 Dose: 324 mg Documented By: RACHID Heparin Sodium (Porcine) (Heparin Sod (Porcine) 1000 Unit/Ml) 1 units IV NOW ONE Stop: 02/18/25 20:55 Last Admin: 02/18/25 21:15 Dose: 4,000 units Documented By: RACHID Co-signed By: FABRICE Heparin Sodium/Dextrose (Heparin Iv Adult Wt-Based Low-Dose W/ Initial Bolus Protocol) 1 each IV NOW STA; Protocol Stop: 02/18/25 20:40 Last Admin: 02/18/25 21:17 Dose: Not Given Documented By: RACHID Nitroglycerin (Nitroglycerin 2% Ointment 30gm Tube) 1 inch EXT NOW STA Stop: 02/18/25 19:34 Last Admin: 02/18/25 19:38 Dose: 1 inch Documented By: RACHID Imaging Data Radiologist's Impression: Chest X-Ray 02/18/25 19:24 EXAM: X-ray chest one-view portable CLINICAL HISTORY: Chest pain PRIORS: 01/24/2024 TECHNIQUE: Frontal view chest FINDINGS: Median sternotomy wires and postsurgical change of the heart/mediastinum noted, unchanged. The chest is well-expanded. No airspace consolidation, effusion or congestive changes. Heart size is normal. No pneumothorax. Trachea is patent. Osseous structures demonstrate no acute abnormality. No radiopaque foreign body. IMPRESSION: No plain film evidence of an acute cardiopulmonary process. Electronically signed by Aleksandra Byrd 02-18-2025 8:11 PM Venous Doppler Study 02/18/25 19:33 Exam(s): US VENOUS LEFT LOWER EXTREMITY EXAM: US Duplex Left Lower Extremity Veins CLINICAL HISTORY: Reason for exam: swelling. TECHNIQUE: Real-time duplex ultrasound scan of the left lower extremity veins integrating B-mode two-dimensional vascular structure, Doppler spectral analysis, color flow Doppler imaging and compression. COMPARISON: None FINDINGS: Deep veins: Nonocclusive thrombus in the left common femoral vein. Occlusive thrombus in the visualized proximal left profunda femoral vein. Patent left superficial femoral vein, popliteal gas-filled vein, and left calf veins. Superficial veins: Unremarkable. No thrombus in the visualized great saphenous vein. Soft tissues: Soft tissue edema. No popliteal cyst. IMPRESSION: 1. Nonocclusive thrombus in the left common femoral vein. 2. Occlusive thrombus in the visualized proximal left profunda femoral vein. Electronically signed by: Nicole Herman M.D. 02/18/25 21:29 PM Discharge Plan Visit Data Chief Complaint: Chest Pain Stated Complaint: SWOLLEN LT LEG, SOB, RT SIDE CHEST PAIN ED Provider: Tyler Daniels Discharge Problem: Precordial chest pain, Elevated troponin, History of coronary artery disease, DVT (deep venous thrombosis) Patient Disposition: Admitted As Inpatient Condition: Serious Forms Stand Alone Forms: [employer] Prescriptions Prescriptions: No Action sertraline 100 mg tablet 200 mg PO QDD Patient Comments: took 50 mg this morning terazosin 2 mg Capsule 2 mg PO HS clopidogrel [Plavix] 75 mg Tablet 75 mg PO QAM nitroglycerin [Nitrostat] 0.4 mg Tablet, Sublingual 0.4 mg Sublingual UD PRN (Reason: Chest Pain) Rx Instructions: ONE TABLET UNDER THE TONGUE EVERY 5 MINUTES UP TO 3 DOSES FOR CHEST PAIN. fluticasone propionate 50 mcg/actuation [place],Suspension 1 spray INTRANASAL DAILY PRN (Reason: Nasal Congestion) Entresto 24-26 mg Tablet 0.5 tab PO BID allopurinol 300 mg Tablet 300 mg PO QPM famotidine 20 mg tablet 20 mg PO BID pantoprazole 40 mg tablet,delayed release (DR/EC) 40 mg PO BID Praluent Pen 150 mg/mL Pen Injector 150 mg SUBCUT .[id number] Patient Comments: Due 12/17 Rx Instructions: LAST TAKEN 02/15/25Thursdays allopurinol 300 mg tablet 150 mg PO QAM Formulas Testosterone Cap 1 tab PO DAILY furosemide 20 mg tablet 20 mg PO DAILY PRN (Reason: Edema) isosorbide dinitrate 20 mg Tablet 20 mg PO BID17 Qty: 60 0RF benzonatate 100 mg capsule 100 mg PO TID PRN (Reason: Cough) magnesium oxide 500 mg magnesium Tablet 500 mg PO DAILY aspirin 81 mg Tablet,Chewable 81 mg PO DAILY coenzyme Q10 [CoQ-10] 100 mg Capsule 200 mg PO DAILY ranolazine 500 mg tablet extended release 12 hr 500 mg PO BID metoprolol succinate 25 mg tablet extended release 24 hr 25 mg PO QAM Referrals Referrals: Miguel Suarez MD [Primary Care Provider] - Discharge Problem: DVT (deep venous thrombosis) Qualifiers: DVT location: lower extremity Affected thrombotic vein of extremity: u nspecified vein of extremity Chronicity: acute Laterality: left Qualified Code(s): I82.402 - Acute embolism and thrombosis of unspecified deep veins of left lower extremity
--- NOTE | 2025-02-18 20:12 | XRay Report ---
EXAM: X-ray chest one-view portable CLINICAL HISTORY: Chest pain PRIORS: 01/24/2024 TECHNIQUE: Frontal view chest FINDINGS: Median sternotomy wires and postsurgical change of the heart/mediastinum noted, unchanged. The chest is well-expanded. No airspace consolidation, effusion or congestive changes. Heart size is normal. No pneumothorax. Trachea is patent. Osseous structures demonstrate no acute abnormality. No radiopaque foreign body. IMPRESSION: No plain film evidence of an acute cardiopulmonary process. Electronically signed by Aleksandra Byrd 02-18-2025 8:11 PM
[2025-02-18 20:19] LABS: Alanine Aminotransferase 68.0 U/L (7-52); Albumin Globulin Ratio 1.4 (0.9-2); Alkaline Phosphatase 48.0 U/L (34-104); Anion Gap 8.0 (3-11); Bilirubin,Total 1.0 mg/dl (0.2-1.0); Blood Urea Nitrogen 23.0 mg/dl (6-23); Calcium 9.0 mg/dl (8.6-10.3); Carbon Dioxide 27.0 mmol/L (21-32); Chloride 105.0 mmol/L (98-107); Creatinine Clr Calc Pharmacy 59.5 ml/min; Globulin 2.9 gm/dl (2.5-4.0); Glucose 109.0 mg/dl (70-99(Fasting)); Lipase 27.0 U/L (11-82); Magnesium 2.1 mg/dl (1.7-2.4); Potassium 4.3 mmol/L (3.5-5.1); Sodium 140.0 mmol/L (136-145); Total Protein 7.1 gm/dl (6.0-8.3)
[2025-02-18 20:35] LABS: INR 1.0 (0.9-1.1); Partial Thromboplastin Time 26 Seconds (21-31); Prothrombin Time 10.4 Seconds (9.0-12.0)
[2025-02-18 20:37] LABS: Hematocrit (blood only) 39.6 % (42.0-52.0); Hemoglobin 13.3 g/dl (14.0-18.0); Immature Granulocytes # (auto) 0.01 K/uL (0.01-0.20); Immature Granulocytes % (auto) 0.2 %; Mean Corpuscular Hemoglobin 32.0 pg (25.0-34.0); Mean Corpuscular Volume 95.4 fL (80.0-100.0); Platelet Count 93 K/uL (130-400); RDW Standard Deviation 50.6 fL (36.4-46.3); Red Blood Count 4.15 M/uL (4.70-6.10); White Blood Count 5.92 K/ul (4.8-10.8)
[2025-02-18] MEDS: HEPARIN SOD (PORCINE) 1000 UNIT/ML IV ONE (21:15)
[2025-02-18] MEDS: HEPARIN 25000 UNIT/500 ML D5W 25,000 UNITS/500 ML BAG IV SCH (21:16)
[2025-02-18] MEDS: Heparin IV Adult Wt-Based Low-Dose w/ INITIAL Bolus Protocol IV STA (21:17)
--- NOTE | 2025-02-18 21:32 | History & Physical Report ---
Date of Service February 18, 2025 Assessment & Plan (1) NSTEMI (non-ST elevated myocardial infarction): (2) DVT (deep venous thrombosis): Plan 74-year-old male PMHx STEMI, EtOH abuse, history of TIA, history colon cancer, CAD, HTN, dyslipidemia presenting for R sided chest discomfort as well as LLE swelling. ED evaluation reveals CBC without leukocytosis, H&H 13.3/39.6; PT/INR WNL; CMP glucose 109, AST 64, ALT 68; 274.4, pending repeat; BNP 648; CXR no acute findings; left venous Doppler with DVT present; EKG sinus rhythm first- degree AV block, LBBB at 90 bpm.; Provided with aspirin 324 mg p.o., heparin IV, nitroglycerin paste in ED. #NSTEMI/CAD/Ischemic cardiomyopathy CP described as "like a cut" ongoing that day of arrival, also with LLE calf swelling.; Prior STEMI 01/2024, s/p CABG x 3 VICTORIA to LAD, TERRY to distal RCA, SVG to OM1, SVG to OM2. On plavix + ASA; on metoprolol, isosorbide, ranolazine, entresto, furosemide prn. - CBC without leukocytosis, H&H 13.3/39.6; BNP 648 - CBC a.m. - Trop 274.4, pending repeat q6hr - EKG sinus with 1st degree AV block, no ischemic changes - monitor on tele - Echo 2022 EF 45-50%, moderate size septal/inferior/posterior wall abnormalities with hypokinesis/akinesis, LA moderately dilated, AV sclerosis mild, mild AR, moderate MR, mild TR, ESPP 46 mmHg -- pending repeat - Lipid panel pending, not on statin -- Rosuvastatin 20mg to start am of 02/19/2025 - Hold metoprolol + isosorbide at admission, continue all other medications - Plavix + ASA - continue - Heparin started - continue - Cardiology consulted - appreciate input + recs #DVT, LLE H/o LLE swelling, no respiratory symptoms at admission. - PT/INR WNL - Venous doppler LLE (+) DVT - nonocclusive thrombus left common femoral, occlusive thrombus proximal left profundofemoral vein - CTA chest deferred at time of admission given contrast allergy + heparin started -- consider VQ scan - Heparin started #GERD- Famotidine, pantoprazole - continue #Psych- Sertraline - continue #BPH- Terazosin - continue Dispo: Admit, PCU VTE Prophylaxis: Heparin - treatment This document was dictated utilizing [employer]. Please excuse any grammatical errors that may be secondary to use of this software. Admission and Anticipated Discharge Date Admission Date: 02/18/2025 History of Present Illness Chief Complaint: Chest pain Primary Care Provider: Miguel Suarez MD 74-year-old male PMHx STEMI, EtOH abuse, history of TIA, history colon cancer, CAD, HTN, dyslipidemia presenting for R sided chest discomfort as well as LLE swelling. Patient states on the day of arrival, his knee started to become bothersome to him. He occasionally does have left knee problems and states that he will put a copper band/sleeve over the knee to try to alleviate some of the discomfort. He had done this and then later in the day he noted that his LLE was significantly more swollen than RLE. He was having a little tightness in his left calf at that time. Additionally, he is recovering from bronchitis in which he was treated with antibiotics for. Since that time, he felt as though he was having some more acid reflux and some "feelings of a tear or cut in my chest." He states that this occurred briefly on the day of arrival, but not necessarily described as pain. He is having no chest discomfort at this time. Admits to feeling off balance with walking that started really today, but no falls. With exertion he does become dyspneic. His daughter reports that at 1400 he began to have some lightheadedness with walking. In between the time of [id number] he took a Lasix and 2 nitroglycerin to try to alleviate some of his symptoms. He denies palpitations, abdominal pain, N/V/D/C, numbness/tingling, fever/chills, LUTS, URI symptoms, weakness, or syncope. Again, no present chest pain. Occasionally has some tenderness when he is pushing over his chest. His cough has been but has improved significantly since initial appearance. ED evaluation reveals CBC without leukocytosis, H&H 13.3/39.6; PT/INR WNL; CMP glucose 109, AST 64, ALT 68; 274.4, pending repeat; BNP 648; CXR no acute findings; left venous Doppler with DVT present; EKG sinus rhythm first-degree AV block, LBBB at 90 bpm.; Provided with aspirin 324 mg p.o., heparin IV, nitroglycerin paste in ED. Please see Dr. Alston's attestation for adjustments/additions to treatment plan. Allergies Allergy/AdvReac Type Severity Reaction Status Date / Time fluticasone furoate Allergy Severe CHEST Verified 02/18/25 20:51 [From Breo Ellipta] TIGHTNESS Iodinated Contrast Media Allergy Severe Anaphylaxis Verified 02/18/25 20:51 /Itching vilanterol Allergy Severe CHEST Verified 02/18/25 20:51 [From Breo Ellipta] TIGHTNESS Rfurbcx-OFA-IrU Reductase AdvReac Intermediate MUSCLE Verified 02/18/25 20:51 Inhibitor ACHES [Zmltcup-Wtj-Qjm Reductase Inhibitor] Home Medications Medication Instructions Recorded Confirmed Type clopidogrel 75 mg tablet (Plavix) 75 mg PO QAM 05/22/18 02/18/25 History nitroglycerin 0.4 mg sublingual 0.4 mg sublingual UD PRN Chest Pain 05/22/18 02/18/25 History tablet (Nitrostat) terazosin 2 mg capsule 2 mg PO HS 05/22/18 02/18/25 History sertraline 100 mg tablet 200 mg PO QDD 01/07/21 02/18/25 History fluticasone propionate 50 1 spray intranasal DAILY PRN Nasal 01/10/21 02/18/25 History mcg/actuation nasal Congestion spray,suspension Formulas Testosterone Cap 1 tab PO DAILY 12/16/22 02/18/25 History alirocumab 150 mg/mL subcutaneous 150 mg subcut .[id number] 12/16/22 02/18/25 History pen injector (Praluent Pen) allopurinol 300 mg tablet 150 mg PO QAM 12/16/22 02/18/25 History famotidine 20 mg tablet 20 mg PO BID 12/16/22 02/18/25 History pantoprazole 40 mg tablet,delayed 40 mg PO BID 12/16/22 02/18/25 History release furosemide 20 mg tablet 20 mg PO DAILY PRN Edema 01/16/23 02/18/25 History sacubitril 24 mg-valsartan 26 mg 0.5 tab PO BID 08/25/23 07/13/25 History tablet (Entresto) allopurinol 300 mg tablet 300 mg PO QPM 09/01/23 02/18/25 History isosorbide dinitrate 20 mg tablet 20 mg PO BID17 #60 tabs 01/27/24 02/18/25 Rx aspirin 81 mg chewable tablet 81 mg PO DAILY 02/18/25 02/18/25 History benzonatate 100 mg capsule 100 mg PO TID PRN Cough 02/18/25 02/18/25 History coenzyme Q10 100 mg capsule 200 mg PO DAILY 02/18/25 02/18/25 History (CoQ-10) magnesium oxide 500 mg PO DAILY 02/18/25 02/18/25 History metoprolol succinate 25 mg 25 mg PO QAM 02/18/25 02/18/25 History tablet,extended release 24 hr ranolazine 500 mg tablet,extended 500 mg PO BID 02/18/25 02/18/25 History release,12 hr Past Med/Surg History Problem List NSTEMI (non-ST elevated myocardial infarction) DVT (deep venous thrombosis) (Acute) History of coronary artery disease (Acute) Elevated troponin (Acute) Precordial chest pain (Acute) Chronic systolic congestive heart failure Hyperglycemia V tach (Acute) Chest pain (Acute) History of TIA (transient ischemic attack) 1980s-"SHOWS 7 ON SCANS" PER PT-F/U DR Wide-complex tachycardia Acute bronchitis Nausea (Acute) Cough (Acute) Headache (Acute) SOB (shortness of breath) (Acute) Ischemic cardiomyopathy ST elevation (STEMI) myocardial infarction (Acute) TIA (transient ischemic attack) (Chronic) Alcohol abuse (Chronic) Acute kidney injury (Acute) Bronchitis (Acute) Left shoulder pain (Acute) Near syncope (Acute) Syncope Small bowel obstruction (Acute) Abdominal pain (Acute) ETOH abuse Thrombocytopenia Encounter for pre-operative examination Arthritis of knee, left Ureteral calculus, left Bilateral nephrolithiasis Hydronephrosis, left Angina pectoris, unstable (Acute) H/O crescendo angina Elevated troponin (Acute) CHF exacerbation SOB (shortness of breath) (Acute) Elevated troponin (Acute) CHF (congestive heart failure) (Acute) Recent myocardial infarction (Acute) Acute heart failure with reduced ejection fraction and diastolic dysfunction CAD (coronary artery disease), [place] coronary artery LBBB (left bundle branch block) Acute on chronic renal insufficiency SBO (small bowel obstruction) (Acute) Infarction of spleen (Acute) Abnormal EKG Alcohol use Nocturnal hypoxia History of colon cancer dx 2017; treated surgically + oral chemo Depression BPH with obstruction/lower urinary tract symptoms CAD (coronary artery disease) (Chronic) "1992 - CABG x 5 09/2016 - [place] to SVG of OM 10/2016 - repeat cath, no lesions amenable to intervention, medical management recommended" Follows with Dr. Kaiser HTN (hypertension) (Chronic) GERD (gastroesophageal reflux disease) (Chronic) Well controlled and stable with med Dyslipidemia (Chronic) On injectable medications - cannot tolerate statins Gout (Chronic) No current issues BPH (benign prostatic hyperplasia) (Chronic) History of carpal tunnel surgery (Chronic) H/O arthroscopic knee surgery (Chronic) mult BL H/O toe surgery (Chronic) History of partial colectomy (Chronic) History of tonsillectomy and adenoidectomy (Chronic) Medical History Myocardial Infarction 11/20/2022 Temporomandibular joint disorder CLICKS NO LOCKING Prediabetes Diet controlled History of intestinal obstruction No recent issues History of TMJ disorder Occ jaw clicking - no jaw locking Hearing deficit BL [place] Has hearing aids - not wearing hearing aids Anxiety On home oxygen therapy 2 LPM qHS- does not always use secondary to nasal dryness History of COVID-19 08/2020; asymptomatic -TESTED BY [facility] Chronic idiopathic thrombocytopenia F/U PCP Surgical History History of colonoscopy H/O heart artery stent x 1 S/P CABG x 5 1992 [facility] History of cardiac catheterization 2016 [facility] - 1 stent Family History Father Diabetes Esophagus cancer Stomach cancer Heart disease Other No family history of adverse response to anesthesia Social History Smoking Status: Former smoker Tobacco Type: Cigarettes Second Hand Exposure: No; Do You Dip or Chew Tobacco: No; Hx Alcohol Use: Yes Alcohol type: hard liquor Hx Substance Use: No Preferred Language: Frisian Communication Ability: Effective Repair Welder Required: No Beliefs That Will Affect Care: None marital status: Current Living Situation: Alone Current Living Situation Comment: family has apartment underneath patients home current occupational status: retired 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 Other Information That Helps Us Care for You: No Feels Safe at Home: Yes Safety Concerns: Feels Safe At This Time Assistive Devices: Glasses, Hearing Aid - Bilateral and Oxygen - at Night Review of Systems Review of Systems: All systems reviewed & are unremarkable except as noted in Subjective Physical Exam Physical Exam: General: No acute distress Skin: Warm and dry Head: Normocephalic, atraumatic Eyes: PERRL, conjunctivae clear, sclera non-icteric; wearing glasses ENT: External ear and ear canal without swelling; nose atraumatic; good dentition, tongue normal appearance, pharynx normal Neck: Supple, no LAD Cardio: RRR, no M/G/R, S1 and S2 normal Resp: No respiratory distress, Lungs CTA in all lobes bilaterally, no wheezes, rales, or rhonchi Abdomen: Soft, symmetric, nontender; No masses or hepatosplenomegaly; Bowel sounds normoactive MSK: No deformities; pulses palpable and equal; trace pitting edema bilateral lower extremities, L calf > R calf size, no tenderness to palpation Neuro: Awake, alert; Sensation intact bilaterally; CN grossly intact Psych: Appropriate mood and affect; good judgement and insight. Daughter present in room at time of visit. Results & Data Results & Data Vital Signs (Past 12 Hours) Vital Signs Temp Pulse Resp BP Pulse Ox O2 Del Method O2 Flow Rate 02/18/25 20:10 76 14 130/85 94 02/18/25 20:00 76 14 131/83 94 02/18/25 19:50 76 16 139/89 93 02/18/25 19:32 94 Room Air 0 02/18/25 19:31 80 20 125/94 92 02/18/25 19:30 86 02/18/25 19:20 36.8 C 84 18 137/94 92 Room Air Laboratory Results 02/18/25 19:40 WBC 5.92 RBC 4.15 L Hgb 13.3 L Hct 39.6 L MCV 95.4 MCH 32.0 MCHC 33.6 RDW Std Deviation 50.6 H RDW Coeff of Long 14.6 H Plt Count 93 L MPV 10.7 Immature Gran % (Auto) 0.2 Neut % (Auto) 79.7 Lymph % (Auto) 10.8 [place] % (Auto) 7.8 Eos % (Auto) 1.2 Baso % (Auto) 0.3 Neut # (Auto) 4.72 Lymph # (Auto) 0.64 L [place] # (Auto) 0.46 Eos # (Auto) 0.07 Baso # (Auto) 0.02 Immature Gran # (Auto) 0.01 PT 10.4 INR 1.0 APTT 26 PTT Ratio 1.0 Sodium 140 Potassium 4.3 Chloride 105 Carbon Dioxide 27 Anion Gap 8 BUN 23 Creatinine 1.20 Est Cr Clr Drug Dosing 59.5 eGFR 63.46 BUN/Creatinine Ratio 19.2 Glucose 109 H Calcium 9.0 Magnesium 2.1 Total Bilirubin 1.0 AST 64 H ALT 68 H Alkaline Phosphatase 48 Troponin I High Sens 274.4 H* B-Natriuretic Peptide 648 H Total Protein 7.1 Albumin 4.2 Globulin 2.9 Albumin/Globulin Ratio 1.4 Lipase 27 Diagnostic Findings Chest X-Ray 02/18/25 19:24 EXAM: X-ray chest one-view portable CLINICAL HISTORY: Chest pain PRIORS: 01/24/2024 TECHNIQUE: Frontal view chest FINDINGS: Median sternotomy wires and postsurgical change of the heart/mediastinum noted, unchanged. The chest is well-expanded. No airspace consolidation, effusion or congestive changes. Heart size is normal. No pneumothorax. Trachea is patent. Osseous structures demonstrate no acute abnormality. No radiopaque foreign body. IMPRESSION: No plain film evidence of an acute cardiopulmonary process. Electronically signed by Aleksandra Byrd 02-18-2025 8:11 PM Venous Doppler Study 02/18/25 19:33 Exam(s): US VENOUS LEFT LOWER EXTREMITY EXAM: US Duplex Left Lower Extremity Veins CLINICAL HISTORY: Reason for exam: swelling. TECHNIQUE: Real-time duplex ultrasound scan of the left lower extremity veins integrating B-mode two-dimensional vascular structure, Doppler spectral analysis, color flow Doppler imaging and compression. COMPARISON: None FINDINGS: Deep veins: Nonocclusive thrombus in the left common femoral vein. Occlusive thrombus in the visualized proximal left profunda femoral vein. Patent left superficial femoral vein, popliteal gas-filled vein, and left calf veins. Superficial veins: Unremarkable. No thrombus in the visualized great saphenous vein. Soft tissues: Soft tissue edema. No popliteal cyst. IMPRESSION: 1. Nonocclusive thrombus in the left common femoral vein. 2. Occlusive thrombus in the visualized proximal left profunda femoral vein. Electronically signed by: Nicole Herman M.D. 02/18/25 21:29 PM Medications Administered Aspirin 324 mg p.o. Heparin IV Nitroglycerin paste 1 inch ECG Additional Comments: Sinus rhythm first-degree AV block, rightward axis, LBBB 90 bpm, VT 226, QRS 172, QT/QTc 416/508, PRT 80/91/-67 Code Status & VTE Plan Code Status Full Supervising Physician Co-Signing Physician Notes Patient seen and examined, chart reviewed, case discussed with TERRY Uribe and I agree with the assessment and plan as above. In brief, patient is a pleasant 74yo male with CAD, prior STEMI, CABG x 3 in 1992. Follows with [facility]. Patient with LLE pain and swelling after putting a brace on his leg. Has had right sided chest pain. Found with LLE DVT. New LBBB on EKG Patient afebrile, HD stable, adequate oxygenation with no respiratory distress On exam he is resting comfortably Some mild LLE edema, scars from prior vein harvesting for CABG. Patient states that his LE do not routinely swell Assessment/Plan -Heparin gtt -Uncertain if patient has a PE - he will be on heparin gtt for his DVT. 2D echo ordered in the AM. Will defer angiographic imaging for now as patient has a severe reaction to contrast dye and imaging would likely not place change roof bolter at this time as patient will be on heparin regardless. He is HD stable with stable respiratory status -Remainder as above PG Care Time/CCT Total # of Minutes Spent Total Time Spent with Patient: Total time spent is greater than 50% in coordination of care (as documented) at patient's floor/unit and/or counseling patient: Coding Level of Care Code 89886 INT INP/OBS CARE 3/75MIN Diagnoses NSTEMI (non-ST elevated myocardial infarction) I21.4 DVT (deep venous thrombosis) I82.402 Affected thrombotic vein of extremity: unspecified vein of extremity Chronicity: acute DVT location: lower extremity Laterality: left (2) DVT (deep venous thrombosis) Affected thrombotic vein of extremity: unspecified vein of extremity Chronicity: acute DVT location: lower extremity Laterality: left Qualified Code(s): I82.402 - Acute embolism and thrombosis of unspecified deep veins of left lower extremity
[2025-02-18] MEDS ORDERED: MELATONIN 3 MG TAB PO PRN (23:12)
[2025-02-18] MEDS ORDERED: ONDANSETRON INJ 2 MG/ML 2 ML VIAL IV PRN (23:12)
[2025-02-18] MEDS ORDERED: POLYETHYLENE (MIRALAX) 17 GM PACK PO PRN (23:12)
[2025-02-18] MEDS ORDERED: NITROGLYCERIN SL 0.4 MG/TAB TAB SL PRN (23:12)
[2025-02-19 03:57] LABS: Cholesterol 137.0 mg/dl (0-200); HDL Cholesterol 51.0 mg/dl; Triglycerides 160.0 mg/dl (0-150)
[2025-02-19 04:06] LABS: ANTI-Xa, UFH(UnfractionatedHep 0.30 IU/ml (0.3-0.7)
[2025-02-19] MEDS: CLOPIDOGREL BISULFATE 75 MG TAB PO SCH (08:19)
[2025-02-19] MEDS: RANOLAZINE 500 MG ER TAB PO SCH (08:19)
[2025-02-19] MEDS: MAGNESIUM OXIDE 400 MG TAB PO SCH (08:19)
[2025-02-19] MEDS: VALSARTAN/SACUBITRIL 26/24MG TAB PO SCH (08:19)
[2025-02-19] MEDS: ISOSORBIDE DINITRATE 20 MG TAB PO SCH (08:19)
[2025-02-19] MEDS: ASPIRIN 81 MG ECTAB PO SCH (08:19)
[2025-02-19] MEDS: FAMOTIDINE 20 MG TAB PO SCH (08:19)
[2025-02-19] MEDS: METOPROLOL SUCC 25MG EXT REL TAB PO SCH (08:20)
[2025-02-19] MEDS ORDERED: ROSUVASTATIN CALCIUM 20 MG TAB PO SCH (09:00)
--- NOTE | 2025-02-19 09:19 | Cardiology Consultation ---
Date of Consultation February 19, 2025 Assessment & Plan (1) DVT (deep venous thrombosis): (2) Chest pain: (3) NSTEMI (non-ST elevated myocardial infarction): (4) History of coronary artery disease: (5) LBBB (left bundle branch block): Plan Patient admitted for left leg swelling/pain and SOB/CP. Diagnosed with acute left leg DVT. Started on IV heparin on admission. Chest CT was not completed upon arrival due to concerns for prior allergy and would not change plan as IV heparin was already initiated. Elevated troponin also noted on admission, peaking at 303, consistent with NSTEMI. EKG findings with NSR and LBBB. LBBB is not new. He has a history of intermittent LBBB. Echo completed with LVEF 45%, similar to past findings. However, he has new findings of moderately dilated RV, with RV hypokinesis. Findings may be consistent with PE. Discussed with hospitalist. Recommend Chest CT vs VQ scan for further evaluation and r/o PE definitively . While he will ultimately require anticoagulation therapy, ruling in/out PE would be beneficial in further diagnosis of his chest pain. Continue IV heparin. Consider 48 hours of IV heparin with NTSTEMI. He does have a history of complex CAD per cath in January 2024 - med management recommended at that time. -continue ASA, Plavix. -Once oral anticoagulation is initiated for DVT, stop ASA and continue Plavix therapy. -Continue Ranolazine Continue Entresto and metoprolol and isosorbide. Titrate isosorbide for anginal complaints if needed. Await imaging for PE. Case discussed with Dr. Collins I spent a total of 90 minutes on the date of service in preparation, delivery, and documentation of the care provided to this patient, excluding any time spent in the performance of separately billed services. Maria Del Carmen Sam PA-C Department of Cardiology, [facility] [address] This chart was completed in part utilizing Speech Voice Recognition Software. Grammatical errors, random word insertions, pronoun errors, and incomplete sentences are an occasional consequence of this system due to software limitations, ambient noise, and hardware issues. Any formal questions or concerns about the content, text, or information contained within the body of this dictation should be directly addressed to the provider for clarification. Supervising Physician Co-Signing Physician Notes I have personally performed a history and physical examination on the patient. I have reviewed the advance practitioner's documentation, and I agree with, and take responsibility for the plan of care. 74-year-old male admitted secondary to left leg swelling, chest discomfort, and significant shortness of breath. Admits to placing an elastic band around his left lower extremity for treatment of knee pain. Unfortunately, he fell asleep while wearing the band and awoke to find significantly swollen, tender, left lower extremity. Notes mild chest discomfort with significant dyspnea with minimal exertion. Duplex demonstrates left lower extremity deep venous thrombosis. Echocardiogram demonstrates mild stable LV systolic dysfunction, however, significant RV dilatation and dysfunction now present. Clinical presentation concerning for large PE with RV strain. RV strain could account for mildly elevated troponin noted on admission. Patient with IV contrast allergy. Recommend pretreatment with Solu-Medrol and proceed with CTA of the chest for definitive diagnosis. Patient agreeable. Addendum: CTA preliminary review demonstrates large pulmonary embolus. Continue IV heparin with transition to oral anticoagulation as per internal medicine. Consider pulmonary consultation. Herbie Collins DO, [facility] History of Present Illness Reason for Consultation: Right sided CP; DVT Requesting Physician: Marcio Flores Hospitalist Attending Physician: Dr. Collins History of Present Illness Patient is a complex 74 year old male known to [facility] [address] cardiology, Dr. Kaiser admitted to [facility] with complaints of left lower extremity swelling and pain and right sided chest pain. Patient reports he was in usual state of health until yesterday morning. He has been having alot of knee pain and is "overdue" for his Synvisc injections. Apparently he put a band around his leg yesterday to help support his knee. He fell asleep with this band around his left lower extremity. Upon waking up several hours later he felt his leg was very swollen and painful. He then began to walk around his house and noted right sided chest pain, described as a "tearing/ripping" sensation. He tried 2 SL nitro without significant relief. He felt this was somewhat different than his prior anginal complaints. 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 Now he feels SOB with minimal exertion to the bathroom and ambulating in the room. He still "can feel" the right sided chest pain this morning, but not as bad. Upon arrival to the ER he was diagnosed with left lower extremity DVT. Started on IV heparin. Chest CT was deferred due to prior allergy to CT scan dye. Patient reports this allergy occurred in the and he has had CT scans and cardiac caths with pre-treatment since that time, without issues. HS troponin also elevated on admission - [phone]. EKG demonstrated NSR with LBBB (he has a history of intermittent LBBB) Echo completed which demonstrated mildly reduced LVEF at 45-50% (similar to past echo) with now moderately dilated RV with RV hypokinesis. At time of consult, mpnet resting in bed. Left leg swelling/pain and edema i mproved. He continues to report significant fatigue and dyspnea with ambulation to the restroom. Also continues to have right sided chest pain, described as an ache. History includes: 1. CAD (S/P CABG x5 VICTORIA-D1-LAD, TERRY-distal RCA, SVG-OM1, SVG-OMII Gurjit 06/1993) 2. History of complex coronary anatomy, PCI and stenting of an SVG to OM1 graft in September 2016, at time of repeat cardiac catheterization performed October,, stent was patent with diffuse nonobstructive disease elsewhere for which ongoing medical management was recommended 3. Dyslipidemia with statin intolerance to simvastatin, atorvastatin, and rosuvastatin 4. Hypertension 5. Acute STEMI 11/20/22 with cath revealing 90% stenosis of the VICTORIA to LAD anastomosis flown to [facility] for further intervention. Other severe [place] vessel disease and 2 occluded vein grafts. On 11/24/22 patient received PRESTON to the VICTORIA- LAD anastomosis into the mid LAD with excellent results. 6. HFrEF with CHF exacerbation requiring hospitalization at [facility] December 2022. LVEF 45% 7. Intermittent LBBB 8. STEMI in January 2024 after developing wide complex tachycardia at cardiac rehab. Cardiac catheterization done emergently on 01/23/2025 demonstrates intact arterial grafts, patent stent the left anterior descending but probable lesion at the juncture of the distal right internal mammary artery and right coronary artery. After review with interventional cardiology at [facility] and at [facility], lesion likely not amenable to revascularization due to torturous arteries. Med management recommended. Allergies Allergy/AdvReac Type Severity Reaction Status Date / Time fluticasone furoate Allergy Severe CHEST Verified 02/18/25 20:51 [From Breo Ellipta] TIGHTNESS Iodinated Contrast Media Allergy Severe Anaphylaxis Verified 02/18/25 20:51 /Itching vilanterol Allergy Severe CHEST Verified 02/18/25 20:51 [From Roxy Almaguer] TIGHTNESS Chrdqtx-MVG-YhK Reductase AdvReac Intermediate MUSCLE Verified 02/18/25 20:51 Inhibitor ACHES [Lhshvnc-Tfw-Ofk Reductase Inhibitor] Home Medications Medication Instructions Recorded Confirmed Type clopidogrel 75 mg tablet (Plavix) 75 mg PO QAM 05/22/18 02/18/25 History nitroglycerin 0.4 mg sublingual 0.4 mg sublingual UD PRN Chest Pain 05/22/18 0 02/18/25 History tablet (Nitrostat) terazosin 2 mg capsule 2 mg PO HS 05/22/18 02/18/25 History sertraline 100 mg tablet 200 mg PO QDD 01/07/21 02/18/25 History fluticasone propionate 50 1 spray intranasal DAILY PRN Nasal 01/10/21 02/18/25 History mcg/actuation nasal Congestion spray,suspension Formulas Testosterone Cap 1 tab PO DAILY 12/16/22 02/18/25 History alirocumab 150 mg/mL subcutaneous 150 mg subcut .[id number] 12/16/22 02/18/25 History pen injector (Praluent Pen) allopurinol 300 mg tablet 150 mg PO QAM 12/16/22 02/18/25 History famotidine 20 mg tablet 20 mg PO BID 12/16/22 02/18/25 History pantoprazole 40 mg tablet,delayed 40 mg PO BID 12/16/22 02/18/25 History release furosemide 20 mg tablet 20 mg PO DAILY PRN Edema 01/16/23 02/18/25 History sacubitril 24 mg-valsartan 26 mg 0.5 tab PO BID 04/02/23 02/18/25 History tablet (Entresto) allopurinol 300 mg tablet 300 mg PO QPM 09/01/23 02/18/25 History isosorbide dinitrate 20 mg tablet 20 mg PO BID17 #60 tabs 01/27/24 02/18/25 Rx aspirin 81 mg chewable tablet 81 mg PO DAILY 02/18/25 02/18/25 History benzonatate 100 mg capsule 100 mg PO TID PRN Cough 02/18/25 02/18/25 History coenzyme Q10 100 mg capsule 200 mg PO DAILY 02/18/25 02/18/25 History (CoQ-10) magnesium oxide 500 mg PO DAILY 02/18/25 02/18/25 History metoprolol succinate 25 mg 25 mg PO QAM 02/18/25 02/18/25 History tablet,extended release 24 hr ranolazine 500 mg tablet,extended 500 mg PO BID 02/18/25 02/18/25 History release,12 hr Patient History Medical History (Updated 02/19/25 @ 14:01 by Viktoria Rodriguez MD) Myocardial Infarction 11/20/2022 Temporomandibular joint disorder CLICKS NO LOCKING Prediabetes Diet controlled History of intestinal obstruction No recent issues History of TMJ disorder Occ jaw clicking - no jaw locking Hearing deficit BL [place] Has hearing aids - not wearing hearing aids Anxiety On home oxygen therapy 2 LPM qHS- does not always use secondary to nasal dryness History of COVID-19 08/2020; asymptomatic -TESTED BY [facility] Chronic idiopathic thrombocytopenia F/U PCP Surgical History History of colonoscopy H/O heart artery stent x 1 S/P CABG x 5 1992 [facility] History of cardiac catheterization 2017 [facility] - 1 stent Family History Father Diabetes Esophagus cancer Stomach cancer Heart disease Other No family history of adverse response to anesthesia Social History Smoking Status: Former smoker Tobacco Type: Cigarettes Second Hand Exposure: No; Do You Dip or Chew Tobacco: No; Hx Alcohol Use: Yes Alcohol type: hard liquor Hx Substance Use: No Preferred Language: Slovak Communication Ability: Effective C.O.D. 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 Other Information That Helps Us Care for You: No Feels Safe at Home: Yes Safety Concerns: Feels Safe At This Time Assistive Devices: Glasses, Hearing Aid - Bilateral and Oxygen - at Night Review of Systems Review of Systems: All systems reviewed & are unremarkable except as noted in HPI & below Physical Exam Constitutional: WD/WN, vitals as above well developed; no acute distress Neck: trachea midline, no thyromegaly Respiratory: normal respiratory effort; not tachypneic Auscultation: lungs clear to auscultation bilaterally; no crackles and no rales Cardiovascular: Rate/Rhythm: regular rate and regular rhythm Heart Sounds: normal S1 and normal S2; no murmur Vessels: no JVD Extremities: no edema Gastrointestinal (Abdomen): normal bowel sounds, soft, nontender, no hepatosplenomegaly Neurologic: PERRL, EOMI, accommodation nl, no face palsy, no dysarthria Results & Data Vital Signs (Past 12 Hours) Vital Signs Temp Pulse Pulse Resp BP BP Pulse Ox 02/19/25 08:08 36.5 C 83 18 139/91 96 02/19/25 07:51 76 02/19/25 04:08 36.5 C 77 17 112/73 94 02/18/25 23:06 87 02/18/25 23:05 36.2 C L 86 16 95 02/18/25 22:30 75 16 120/80 93 02/18/25 22:15 76 20 103/85 94 02/18/25 21:46 77 16 115/89 94 02/18/25 21:16 76 18 122/91 95 O2 Del Method 02/19/25 08:08 Room Air 02/19/25 07:51 02/19/25 04:08 Room Air 02/18/25 23:06 02/18/25 23:05 Room Air 02/18/25 22:30 02/18/25 22:15 02/18/25 21:46 02/18/25 21:16 Laboratory Results Cardiac Enzymes 02/18/25 02/18/25 02/19/25 Range/Units 19:40 21:31 03:29 AST 64 H (13-39) U/L Troponin I High Sens 274.4 H* 303.1 H* 227.3 H* D (0-20) pg/ml B-Natriuretic Peptide 648 H (0-100) pg/ml Coagulation 02/18/25 Range/Units 19:40 PT 10.4 (9.0-12.0) Seconds APTT 26 (21-31) Seconds B-Natriuretic Peptide 648 H (0-100) pg/ml Lipids 02/19/25 Range/Units 03:29 Triglycerides 160 H (0-150) mg/dl Cholesterol 137 (0-200) mg/dl HDL Cholesterol 51 mg/dl Cholesterol/HDL Ratio 2.7 (0-5) CBC 02/18/25 Range/Units 19:40 WBC 5.92 (4.8-10.8) K/ul RBC 4.15 L (4.70-6.10) M/uL Hgb 13.3 L (14.0-18.0) g/dl Hct 39.6 L (42.0-52.0) % Plt Count 93 L (130-400) K/uL Neut # (Auto) 4.72 (1.40-6.50) K/uL Lymph # (Auto) 0.64 L (1.20-3.40) K/uL [place] # (Auto) 0.46 (0.11-0.59) K/uL Eos # (Auto) 0.07 (0.00-0.50) K/uL Baso # (Auto) 0.02 (0.00-0.20) K/uL Comprehensive Metabolic Panel 02/18/25 Range/Units 19:40 Sodium 140 (136-145) mmol/L Potassium 4.3 (3.5-5.1) mmol/L Chloride 105 (98-107) mmol/L Carbon Dioxide 27 (21-32) mmol/L BUN 23 (6-23) mg/dl Creatinine 1.20 (0.6-1.4) mg/dl Glucose 109 H (70-99(Fasting)) mg/dl Calcium 9.0 (8.6-10.3) mg/dl AST 64 H (13-39) U/L ALT 68 H (7-52) U/L Alkaline Phosphatase 48 (34-104) U/L Total Protein 7.1 (6.0-8.3) gm/dl Albumin 4.2 (3.4-5.0) gm/dl Intake and Output 02/18/25 02/19/25 02/19/25 22:59 06:59 14:59 Intake Total 118.117 / 118.117 Balance 118.117 / 118.117 Intake: IV 118.117 / 118.117 Heparin 23216 Unit/500 ml D5w 118.117 / 118.117 25,000 units In 500 ml @ 950 UNITS/HR 19 mls/hr IV .Q24H [facility] Rx#:[id number] Other: # Unmeasured Voids 1 Weight 92 kg 92 kg Weight Measurement Method Chair Scale Built in [facility] Diagnostic Findings Telemetry reviewed: NSR in the 70-80's. No arrhythmias. IVCD noted EKG reviewed: NSR with LBBB (intermittent LBBB noted in the past - not new) Echo reviewed during this admission, 02/19/25: RV is moderately dilated RV free wall appears severely hypokinetic to akinetic Hypokinesis of the RV apex RV systolic funciton is moderately reduced Chest X-Ray 02/18/25 19:24 EXAM: X-ray chest one-view portable CLINICAL HISTORY: Chest pain PRIORS: 01/24/2024 TECHNIQUE: Frontal view chest FINDINGS: Median sternotomy wires and postsurgical change of the heart/mediastinum noted, unchanged. The chest is well-expanded. No airspace consolidation, effusion or congestive changes. Heart size is normal. No pneumothorax. Trachea is patent. Osseous structures demonstrate no acute abnormality. No radiopaque foreign body. IMPRESSION: No plain film evidence of an acute cardiopulmonary process. Electronically signed by Aleksandra Byrd 02-18-2025 8:11 PM Venous Doppler Study 02/18/25 19:33 Exam(s): US VENOUS LEFT LOWER EXTREMITY EXAM: US Duplex Left Lower Extremity Veins CLINICAL HISTORY: Reason for exam: swelling. TECHNIQUE: Real-time duplex ultrasound scan of the left lower extremity veins integrating B-mode two-dimensional vascular structure, Doppler spectral analysis, color flow Doppler imaging and compression. COMPARISON: None FINDINGS: Deep veins: Nonocclusive thrombus in the left common femoral vein. Occlusive thrombus in the visualized proximal left profunda femoral vein. Patent left superficial femoral vein, popliteal gas-filled vein, and left calf veins. Superficial veins: Unremarkable. No thrombus in the visualized great saphenous vein. Soft tissues: Soft tissue edema. No popliteal cyst. IMPRESSION: 1. Nonocclusive thrombus in the left common femoral vein. 2. Occlusive thrombus in the visualized proximal left profunda femoral vein. Electronically signed by: Nicole Herman M.D. 02/18/25 21:29 PM Outpatient data reviewed Echo reviewed from November 2024: Interpretation Summary The examination is adequate to evaluate the referral indication. There is a moderate sized apical, inferior, and posterior wall motion abnormality with akinesis of the segments. The qualitative LV ejection fraction is 45-49% (mildly reduced). The left atrium is mildly enlarged. The left ventricular diastolic function is mildly abnormal (grade I). The aortic root is mildly enlarged. Compared to the report of the previous study dated 11/21/2022, the regional motion and left ventricular ejection fraction are relatively unchanged. Cardiac cath report reviewed dated January 2024 Summary: 1. Severe chronic [place] coronary artery disease 100% proximal RCA occlusion - Known occluded ostial LAD, ostial circumflex. 2. Occluded SVG to OM1, SVG to OM 2 3. VICTORIA Y graft to LAD, diagonal patent. VICTORIA-LAD anastomosis stent widely patent. 95% at anastomosis of small diagonal. 4. TERRY to PDA patent with 80% stenosis just before distal anastomosis. 5. Normal intracardiac filling pressure. Recommendations: Maximize antianginal therapy, Antiarrhythmics per Dr. Lopez. Consider complex PCI to TERRY-PDA anastomosis at [facility] Deemed not amenable to revascularization. Medications Administered Current Inpatient Medications Allopurinol (Allopurinol 300 Mg Tab) 300 mg PO QPM [facility] Stop: 03/21/25 20:59 Allopurinol (Allopurinol 300 Mg Tab) 150 mg PO QAM [facility] Stop: 03/21/25 08:59 Last Admin: 02/19/25 08:19 Dose: 150 mg Aspirin (Aspirin 81 Mg Ectab) 81 mg PO DAILY [facility] Stop: 03/21/25 08:59 Last Admin: 02/19/25 08:19 Dose: 81 mg Clopidogrel Bisulfate (Clopidogrel Bisulfate 75 Mg Tab) 75 mg PO QAM [facility] Stop: 03/21/25 08:59 Last Admin: 02/19/25 08:19 Dose: 75 mg Famotidine (Famotidine 20 Mg Tab) 20 mg PO BID [facility] Stop: 03/21/25 08:59 Last Admin: 02/19/25 08:19 Dose: 20 mg Heparin Sodium/Dextrose (Heparin 20003 Unit/500 Ml D5w) 25,000 units in 500 mls @ 19 mls/hr IV .Q24H [facility]; Protocol Stop: 03/20/25 20:59 Last Titration: 02/19/25 03:29 Dose: 950 units/hr, 19 mls/hr Isosorbide Dinitrate (Isosorbide Dinitrate 20 Mg Tab) 20 mg PO BID17 [facility] Stop: 03/21/25 08:59 Last Admin: 02/19/25 08:19 Dose: 20 mg Magnesium Oxide (Magnesium Oxide 400 Mg Tab) 400 mg PO DAILY [facility] Stop: 03/21/25 08:59 Last Admin: 02/19/25 08:19 Dose: 400 mg Melatonin (Melatonin 3 Mg Tab) 3 mg PO HS PRN PRN Reason: Sleep Stop: 03/20/25 23:11 Metoprolol Succinate (Metoprolol Succ 25mg Ext Rel Tab) 25 mg PO QAM [facility] Stop: 03/21/25 08:59 Last Admin: 02/19/25 08:20 Dose: 25 mg Nitroglycerin (Nitroglycerin Sl 0.4 Mg/Tab Tab) 0.4 mg SL UD PRN PRN Reason: Chest Pain Stop: 03/20/25 23:11 Ondansetron HCl (Ondansetron Inj 2 Mg/Ml 2 Ml Vial) 4 mg IV Q6H PRN PRN Reason: Nausea Stop: 03/20/25 23:11 Pantoprazole Sodium (Pantoprazole 40 Mg Tab) 40 mg PO BID [facility] Stop: 03/21/25 08:59 Last Admin: 02/19/25 08:19 Dose: 40 mg Polyethylene Glycol (Polyethylene (Miralax) 17 Gm Pack) 17 gm PO DAILY PRN PRN Reason: Constipation Stop: 03/20/25 23:11 Ranolazine (Ranolazine 500 Mg Er Tab) 500 mg PO BID [facility] Stop: 03/21/25 08:59 Last Admin: 02/19/25 08:19 Dose: 500 mg Sacubitril/Valsartan (Valsartan/Sacubitril 26/24mg Tab) 0.5 tab PO BID [facility] Stop: 03/21/25 08:59 Last Admin: 02/19/25 08:19 Dose: 0.5 tab Sertraline HCl (Sertraline Hcl 100 Mg Tablet) 200 mg PO QDD [facility] Stop: 03/21/25 16:29 Terazosin HCl (Terazosin Hcl 1 Mg Cap) 2 mg PO HS [facility] Stop: 03/21/25 20:59 PG Care Time/CCT Total # of Minutes Spent Total Time Spent with Patient: Total time spent is greater than 50% in coordination of care (as documented) at patient's floor/unit and/or counseling patient:90 Coding Level of Care Code 38690 INT INP/OBS CARE 3/75MIN Medical Decision Making High Complexity Diagnoses DVT (deep venous thrombosis) I82.402 Affected thrombotic vein of extremity: unspecified vein of extremity Chronicity: acute DVT location: lower extremity Laterality: left Chest pain R07.9 Chest pain type: unspecified NSTEMI (non-ST elevated myocardial infarction) I21.4 History of coronary artery disease Z86.79 LBBB (left bundle branch block) I44.7 (1) DVT (deep venous thrombosis) Affected thrombotic vein of extremity: unspecified vein of extremity Chronicity: acute DVT location: lower extremity Laterality: left Qualified Code(s): I82.402 - Acute embolism and thrombosis of unspecified deep veins of left lower extremity (2) Chest pain Chest pain type: unspecified Qualified Code(s): R07.9 - Chest pain, unspecified
[2025-02-19 09:54] LABS: Hematocrit (blood only) 36.9 % (42.0-52.0); Hemoglobin 12.5 g/dl (14.0-18.0); Immature Granulocytes # (auto) 0.01 K/uL (0.01-0.20); Immature Granulocytes % (auto) 0.2 %; Mean Corpuscular Hemoglobin 32.1 pg (25.0-34.0); Mean Corpuscular Volume 94.9 fL (80.0-100.0); Platelet Count 90 K/uL (130-400); RDW Standard Deviation 50.1 fL (36.4-46.3); Red Blood Count 3.89 M/uL (4.70-6.10); White Blood Count 5.16 K/ul (4.8-10.8)
[2025-02-19 10:07] LABS: Alanine Aminotransferase 52.0 U/L (7-52); Albumin Globulin Ratio 1.4 (0.9-2); Alkaline Phosphatase 43.0 U/L (34-104); Anion Gap 6.0 (3-11); Bilirubin,Total 0.9 mg/dl (0.2-1.0); Blood Urea Nitrogen 23.0 mg/dl (6-23); Calcium 8.9 mg/dl (8.6-10.3); Carbon Dioxide 28.0 mmol/L (21-32); Chloride 106.0 mmol/L (98-107); Creatine Kinase 106.0 U/L (30-223); Creatinine Clr Calc Pharmacy 56.6 ml/min; Globulin 2.6 gm/dl (2.5-4.0); Glucose 134.0 mg/dl (70-99(Fasting)); Magnesium 2.1 mg/dl (1.7-2.4); Potassium 4.1 mmol/L (3.5-5.1); Sodium 140.0 mmol/L (136-145); Total Protein 6.3 gm/dl (6.0-8.3)
[2025-02-19 10:21] LABS: ANTI-Xa, UFH(UnfractionatedHep 0.23 IU/ml (0.3-0.7)
--- NOTE | 2025-02-19 11:14 | Electrocardiogram Report ---
Test Reason : Blood Pressure : */* mmHG Vent. Rate : 90 BPM Atrial Rate : 90 BPM P-R Int : 226 ms QRS Dur : 172 ms QT Int : 416 ms P-R-T Axes : 80 91 -67 degrees QTcB Int : 508 ms Sinus rhythm with 1st degree A-V block Rightward axis Left bundle branch block Abnormal ECG When compared with ECG of 25-Jan-2024 05:31, Vent. rate has increased by 34 bpm Left bundle branch block is now Present Criteria for Inferior-posterior infarct are no longer Present Confirmed by Dandre Erwin ([id number]) on 02/19/2025 11:13:59 AM Referred By: REFERRED SELF Confirmed By: Dandre Erwin
[2025-02-19] MEDS: diphenhydrAMINE 50 MG/ML VIAL IV ONE (13:58)
--- NOTE | 2025-02-19 14:12 | Hospitalist Progress Note ---
Date of Service February 19, 2025 Assessment & Plan (1) Chest pain: (2) DVT (deep venous thrombosis): (3) NSTEMI (non-ST elevated myocardial infarction): (4) CAD (coronary artery disease), la posta coronary artery: Plan This patient is a 74-year-old male PMHx CAD s/p CABG at age 44 and [facility] after STEMI, ischemic CM/HFrEF, EtOH abuse (3-4 drinks per day), history of TIA previously on Coumadin, history colon cancer, HTN, HLD, GERD, depression/anxiety, BPH who/W R sided chest pain as well as LLE swelling after recent acute illness with a viral infection which caused malaise fatigue cough and was bedbound x 4 days. He was found to have LLE acute DVT, elevated troponin and BNP, suspected PE. # LLE DVT/chest pain/dyspnea on exertion- Venous doppler LLE (+) DVT - nonocclusive thrombus left common femoral, occlusive thrombus proximal left profunda and common femoral veins. Likely provoked by recent acute illness causing him to be very sedentary for 4 days. He does have underlying history of colon cancer but had colonoscopy about 1 year ago which was negative as per patient. He also has a history in the 1980s of multiple TIAs and had previously been on Coumadin for 10 to 15 years but is no longer on anticoagulation. Unclear if had hypercoagulable workup at that time. Echo here with evidence of significant right sided heart strain, suspect PE as cause of chest pain versus NSTEMI/unstable angina. For presumed PE, his PESI score is considered high risk however he has not hypotensive or hypoxic or tachycardic therefore he is more intermediate risk/likely to have submassive PE and would recommend anticoagulation only as opposed to intervention unless he became hemodynamically unstable - Premedicate with IV Solu-Medrol and IV Benadryl and check CT angiogram chest- discussed risks and benefit with patient-discussed with cardiology-would be h elpful to know if chest pain coming from PE versus angina - Continue heparin drip until therapeutic - Convert to Eliquis most likely-will daniels check with case management-will need at least 3 to 6 months of anticoagulation - Follow CBC, CMP, anti-Xa levels # Possible NSTEMI/severe CAD/Ischemic cardiomyopathy/HFrEF/history of TIA- Prior STEMI 01/2024, s/p CABG x 3 VICTORIA to LAD, TERRY to distal RCA, SVG to OM1, SVG to OM2 in his 40s. On plavix + ASA; on metoprolol, isosorbide, ranolazine, entresto, furosemide prn. He is also on Praluent for his hyperlipidemia as he cannot tolerate statins or Repatha. Troponin elevated on arrival and peaked at 303. ECG with left bundle branch block which is intermittent for him and not new. Rosuvastatin started on admission is now discontinued. Lipid panel controlled. Blood pressures are normal. Appreciate cardiology consultation. Echo here now with wall motion abnormalities and EF 45-50% similar to previous but now with moderately reduced RV function and evidence of right-sided heart strain likely from PE. -Metoprolol + isosorbide held at admission but can now resume - Continue Plavix + ASA for now but will need to discontinue aspirin once on oral anticoagulation as per cardiology - Continue heparin drip likely for 48 hours - Follow on telemetry for arrhythmia #Elevated LFTs/history of alcohol use disorder-he drinks 3-4 drinks every day but no history of alcohol withdrawal when he has quit drinking for 6 months at a time in the past. He has mildly low platelets and elevated bilirubin as well as AST and ALT. Checked a CK which was normal. LFTs are improving today. Previous imaging of the liver with CT A/P in 2022 showed mild splenomegaly as well as hepatic steatosis. - Encouraged cessation of EtOH - Follow LFTs - Follow CBC and if platelets drop below 50, would need to hold anticoagulation and antiplatelets #GERD-no acute issues - Famotidine, pantoprazole - continue # Depression/anxiety- Sertraline - continue #BPH-no acute issues - Terazosin - continue #Gout-no acute issues - Continue allopurinol DVT prophylaxis-heparin drip Disposition-continued stay on PCU Admission and Anticipated Discharge Date Admission Date: February 18, 2025 Subjective Patient reports the chest pain is now resolved in the last few hours. He does feel dyspneic with exertion when he gets up to the bathroom and back in the room. He denies abdominal pain or nausea. He does report that when he was sick with bronchitis and a virus recently, he was bedbound for about 4 days. He also reports that he had multiple TIAs in 1979 and was on Coumadin for about 10 to 15 years. Telemetry with normal sinus rhythm and PACs with rates in the 70s to 80s. I discussed his care with cardiology Physical Exam Constitutional: WD/WN, vitals as above Respiratory: normal respiratory effort, lungs clear to auscultation Cardiovascular: RRR, no murmur, no edema Gastrointestinal (Abdomen): normal bowel sounds, soft, nontender, no hepatosplenomegaly Psychiatric: A+Ox3, euthymic affect Results & Data Results & Data Vital Signs (Past 12 Hours) Vital Signs Temp Pulse Pulse Resp BP Pulse Ox O2 Del Method 02/19/25 10:44 36.3 C L 82 17 107/71 95 Room Air 02/19/25 08:08 36.5 C 83 18 139/91 96 Room Air 02/19/25 07:51 76 02/19/25 04:08 36.5 C 77 17 112/73 94 Room Air Laboratory Results CBC, BMP, magnesium, LFTs, anti-Xa level reviewed PG Care Time/CCT Total # of Minutes Spent Total Time Spent with Patient: Total time spent is greater than 50% in coordination of care (as documented) at patient's floor/unit and/or counseling patient: Coding Level of Care Code 60773 SUB INP/OBS CARE 3/50MIN Diagnoses Chest pain R07.9 Chest pain type: unspecified DVT (deep venous thrombosis) I82.402 Affected thrombotic vein of extremity: unspecified vein of extremity Chronicity: acute DVT location: lower extremity Laterality: left NSTEMI (non-ST elevated myocardial infarction) I21.4 CAD (coronary artery disease), la posta coronary artery I25.10 (1) Chest pain Chest pain type: unspecified Qualified Code(s): R07.9 - Chest pain, unsp ecified (2) DVT (deep venous thrombosis) Affected thrombotic vein of extremity: unspecified vein of extremity Chronicity: acute DVT location: lower extremity Laterality: left Qualified Code(s): I82.402 - Acute embolism and thrombosis of unspecified deep veins of left lower extremity
[2025-02-19] MEDS: OPTIRAY 320 125ml IV ONE (15:09)
--- NOTE | 2025-02-19 16:24 | CT Scan Report ---
EXAMINATION: CT angio chest PE protocol CLINICAL HISTORY: PE PRIORS: 05/22/2018 TECHNIQUE: Contiguous axial images were obtained through the chest with the use of intravenous contrast. Sagittal and coronal reformations are supplied. Per report, patient reports contrast allergy and was premedicated successfully prior to this examination. FINDINGS: The pulmonary arteries are well opacified. Pulmonary embolism present in the left mainstem bronchus, extending to the segmental branches of the left lower lobe. A small amount of clot present in the left subsegmental branch of the upper lobe. Thrombus present in the subsegmental branches of the left upper lobe. On the right, pulmonary embolism present in the right upper, middle and lower lobes segmental and subsegmental branches. A moderate to large clot burden is present. Flattening of the interventricular septum is noted. Contrast present in the inferior vena cava. The chest itself is well-expanded with no pulmonary nodule, pneumonia or pleural effusion. Heart size is moderately enlarged. No adenopathy. Trachea and mainstem bronchi are patent. No pleural or pericardial effusion. No acute abnormality in the upper abdomen. In bone windows, no acute osseous abnormality. IMPRESSION: 1. Diffuse bilateral pulmonary embolism involving the left mainstem pulmonary artery, bilateral segmental and subsegmental branches throughout all lobes with moderate to large clot burden and CT features of heart strain. ACT 112: Positive. There are findings on this examination that require communication between the performing entity and the patient following Patient Test Result Information Act ([place] ACT 112) guidelines. Electronically signed by Aleksandra Byrd 02-19-2025 4:23 PM
[2025-02-19] MEDS: SERTRALINE HCL 100 MG TABLET PO SCH (16:50)
[2025-02-19 17:44] LABS: ANTI-Xa, UFH(UnfractionatedHep 0.29 IU/ml (0.3-0.7)
[2025-02-19] MEDS: TERAZOSIN HCL 1 MG CAP PO SCH (19:45)
[2025-02-20 00:40] LABS: ANTI-Xa, UFH(UnfractionatedHep 0.37 IU/ml (0.3-0.7)
[2025-02-20 06:40] LABS: Hematocrit (blood only) 35.4 % (42.0-52.0); Hemoglobin 12.2 g/dl (14.0-18.0); Immature Granulocytes # (auto) 0.02 K/uL (0.01-0.20); Immature Granulocytes % (auto) 0.4 %; Mean Corpuscular Hemoglobin 32.5 pg (25.0-34.0); Mean Corpuscular Volume 94.4 fL (80.0-100.0); Platelet Count 94 K/uL (130-400); RDW Standard Deviation 47.6 fL (36.4-46.3); Red Blood Count 3.75 M/uL (4.70-6.10); White Blood Count 5.53 K/ul (4.8-10.8)
[2025-02-20 06:56] LABS: ANTI-Xa, UFH(UnfractionatedHep 0.43 IU/ml (0.3-0.7)
[2025-02-20 06:58] LABS: Alanine Aminotransferase 43.0 U/L (7-52); Albumin Globulin Ratio 1.6 (0.9-2); Alkaline Phosphatase 37.0 U/L (34-104); Anion Gap 8.0 (3-11); Bilirubin,Total 0.6 mg/dl (0.2-1.0); Blood Urea Nitrogen 22.0 mg/dl (6-23); Calcium 8.6 mg/dl (8.6-10.3); Carbon Dioxide 27.0 mmol/L (21-32); Chloride 106.0 mmol/L (98-107); Creatinine Clr Calc Pharmacy 58.6 ml/min; Globulin 2.4 gm/dl (2.5-4.0); Glucose 128.0 mg/dl (70-99(Fasting)); Magnesium 2.5 mg/dl (1.7-2.4); Potassium 4.4 mmol/L (3.5-5.1); Sodium 141.0 mmol/L (136-145); Total Protein 6.2 gm/dl (6.0-8.3)
--- NOTE | 2025-02-20 13:23 | Cardiology Progress Note ---
Date of Service February 20, 2025 Assessment & Plan (1) DVT (deep venous thrombosis): (2) Chest pain: (3) NSTEMI (non-ST elevated myocardial infarction): (4) History of coronary artery disease: (5) LBBB (left bundle branch block): (6) Pulmonary embolus: Plan 02/19/25 Patient admitted for left leg swelling/pain and SOB/CP. Diagnosed with acute left leg DVT. Started on IV heparin on admission. Chest CT was not completed upon arrival due to concerns for prior allergy and would not change plan as IV heparin was already initiated. Elevated troponin also noted on admission, peaking at 303, consistent with NSTEMI. EKG findings with NSR and LBBB. LBBB is not new. He has a history of intermittent LBBB. Echo completed with LVEF 45%, similar to past findings. However, he has new findings of moderately dilated RV, with RV hypokinesis. Findings may be consistent with PE. Discussed with hospitalist. Recommend Chest CT vs VQ scan for further evaluation and r/o PE definitively . While he will ultimately require anticoagulation therapy, ruling in/out PE would be beneficial in further diagnosis of his chest pain. Continue IV heparin. Consider 48 hours of IV heparin with NTSTEMI. He does have a history of complex CAD per cath in January 2024 - med management recommended at that time. -continue ASA, Plavix. -Once oral anticoagulation is initiated for DVT, stop ASA and continue Plavix therapy. -Continue Ranolazine Continue Entresto and metoprolol and isosorbide. Titrate isosorbide for anginal complaints if needed. Await imaging for PE. 02/20/25: Chest CTA yesterday afternoon demonstrating large clot burden with b/l pulmonary emboli. Patient has been hemodynamically stable. Pulm and IR consulted, but no indication for thrombolytics or thrombectomy given his stable vital signs. Continue anticoagulation with IV heparin. Eventually will need to transition to oral Eliquis vs Coumadin. Defer to hospitalist. When oral anticoagulation is initiated, will plan to stop ASA and continue plavix. Continue all other home cardiac medications. No further cardiac testing warranted at this time Case discussed with Dr. Collins I spent a total of 30 minutes on the date of service in preparation, delivery, and documentation of the care provided to this patient, excluding any time spent in the performance of separately billed services. Maria Del Carmen Sam PA-C Department of Cardiology, [facility] This chart was completed in part utilizing Speech Voice Recognition Software. Grammatical errors, random word insertions, pronoun errors, and incomplete sentences are an occasional consequence of this system due to software limitations, ambient noise, and hardware issues. Any formal questions or concerns about the content, text, or information contained within the body of this dictation should be directly addressed to the provider for clarification. Admission and Anticipated Discharge Date Admission Date: February 18, 2025 Supervising Physician Co-Signing Physician Notes I have personally performed a history and physical examination on the patient. I have reviewed the advance practitioner's documentation, and I agree with, and take responsibility for the plan of care. 74-year-old male With diffuse bilateral pulmonary embolism involving the left mainstem pulmonary artery and evidence of RV strain per echocardiogram. Elevated troponin secondary to RV strain/large PE. Continue anticoagulation with IV heparin. Transition to warfarin versus Eliquis. Continue outpatient cardiovascular medications including isosorbide dinitrate, metoprolol succinate, Entresto, Ranexa, and clopidogrel. Discontinue low-dose aspirin. No further inpatient cardiac testing recommended at this time. Cardiology will sign off. Please call if additional concerns/questions. Herbie Collins DO, [facility] Subjective Patient resting in bed feeling ok. Notes dyspnea with exertion/ambulation in room has slightly improved from yesterday but not at baseline. Has to stop and rest with minimal exertion. No hypoxia noted. Chest pain improved. No dizziness. No orthopnea, PND or edema Review of Systems Review of Systems: All systems reviewed & are unremarkable except as noted in HPI & below Physical Exam Constitutional: WD/WN, vitals as above well developed; no acute distress Neck: trachea midline, no thyromegaly Respiratory: normal respiratory effort; not tachypneic Auscultation: lungs clear to auscultation bilaterally; no crackles and no rales Cardiovascular: Rate/Rhythm: regular rate and regular rhythm Heart Sounds: normal S1 and normal S2; no murmur Vessels: no JVD Extremities: no edema Gastrointestinal (Abdomen): normal bowel sounds, soft, nontender, no hepatosplenomegaly Neurologic: PERRL, EOMI, accommodation nl, no face palsy, no dysarthria Results & Data Vital Signs (Past 12 Hours) Vital Signs Temp Pulse Pulse Resp BP Pulse Ox O2 Del Method 02/20/25 11:36 36.8 C 59 L 20 127/82 95 Room Air 02/20/25 07:48 36.6 C 61 16 132/83 95 Room Air 02/20/25 07:43 55 L 02/20/25 03:36 36.5 C 67 16 135/84 94 Room Air Laboratory Results Cardiac Enzymes 02/20/25 Range/Units 06:01 AST 27 (13-39) U/L CBC 02/20/25 Range/Units 06:01 WBC 5.53 (4.8-10.8) K/ul RBC 3.75 L (4.70-6.10) M/uL Hgb 12.2 L (14.0-18.0) g/dl Hct 35.4 L (42.0-52.0) % Plt Count 94 L (130-400) K/uL Neut # (Auto) 4.39 (1.40-6.50) K/uL Lymph # (Auto) 0.64 L (1.20-3.40) K/uL Gilliam # (Auto) 0.46 (0.11-0.59) K/uL Eos # (Auto) 0.01 (0.00-0.50) K/uL Baso # (Auto) 0.01 (0.00-0.20) K/uL Comprehensive Metabolic Panel 02/20/25 Range/Units 06:01 Sodium 141 (136-145) mmol/L Potassium 4.4 (3.5-5.1) mmol/L Chloride 106 (98-107) mmol/L Carbon Dioxide 27 (21-32) mmol/L BUN 22 (6-23) mg/dl Creatinine 1.22 (0.6-1.4) mg/dl Glucose 128 H (70-99(Fasting)) mg/dl Calcium 8.6 (8.6-10.3) mg/dl AST 27 (13-39) U/L ALT 43 (7-52) U/L Alkaline Phosphatase 37 (34-104) U/L Total Protein 6.2 (6.0-8.3) gm/dl Albumin 3.8 (3.4-5.0) gm/dl Intake and Output 02/19/25 02/20/25 02/20/25 22:59 06:59 14:59 Intake Total 205.267 / 1258.933 111.933 / 1258.933 142.217 / 142.217 Output Total Balance 204.267 / 1257.933 111.933 / 1257.933 142.217 / 142.217 Intake: IV 205.267 / 448.933 111.933 / 448.933 142.217 / 142.217 Heparin 40305 Unit/500 ml D5w 205.267 / 448.933 111.933 / 448.933 142.217 / 142.217 25,000 units In 500 ml @ 1,150 UNITS/HR 23 mls/hr IV .[id number] [facility] Rx#:[id number] Output: # Bowel Movements Other: # Unmeasured Voids 1 2 Weight 92.4 kg Weight Measurement Method [facility] Findings Telemetry reviewed: NSR with first degree AV block; HR 60-70's Chest CTA reviewed: IMPRESSION: 1. Diffuse bilateral pulmonary embolism involving the left mainstem pulmonary artery, bilateral segmental and subsegmental branches throughout all lobes with moderate to large clot burden and CT features of heart strain. Medications Administered Current Inpatient Medications Allopurinol (Allopurinol 300 Mg Tab) 300 mg PO QPM [facility] Stop: 03/21/25 20:59 Last Admin: 02/19/25 19:46 Dose: 300 mg Allopurinol (Allopurinol 300 Mg Tab) 150 mg PO QAM [facility] Stop: 03/21/25 08:59 Last Admin: 02/20/25 08:28 Dose: 150 mg Aspirin (Aspirin 81 Mg Ectab) 81 mg PO DAILY [facility] Stop: 03/21/25 08:59 Last Admin: 02/20/25 08:29 Dose: 81 mg Clopidogrel Bisulfate (Clopidogrel Bisulfate 75 Mg Tab) 75 mg PO QAM [facility] Stop: 03/21/25 08:59 Last Admin: 02/20/25 08:29 Dose: 75 mg Famotidine (Famotidine 20 Mg Tab) 20 mg PO BID [facility] Stop: 03/21/25 08:59 Last Admin: 02/20/25 08:29 Dose: 20 mg Heparin Sodium/Dextrose (Heparin 99062 Unit/500 Ml D5w) 25,000 units in 500 mls @ 23 mls/hr IV .[id number] [facility]; Protocol Stop: 03/20/25 20:59 Last Titration: 02/20/25 07:02 Dose: 1,150 units/hr, 23 mls/hr Isosorbide Dinitrate (Isosorbide Dinitrate 20 Mg Tab) 20 mg PO [id number] [facility] Stop: 03/21/25 08:59 Last Admin: 02/20/25 08:29 Dose: 20 mg Magnesium Oxide (Magnesium Oxide 400 Mg Tab) 400 mg PO DAILY [facility] Stop: 03/21/25 08:59 Last Admin: 02/20/25 08:29 Dose: 400 mg Melatonin (Melatonin 3 Mg Tab) 3 mg PO HS PRN PRN Reason: Sleep Stop: 03/20/25 23:11 Metoprolol Succinate (Metoprolol Succ 25mg Ext Rel Tab) 25 mg PO QAM [facility] Stop: 03/21/25 08:59 Last Admin: 02/20/25 08:29 Dose: 25 mg Nitroglycerin (Nitroglycerin Sl 0.4 Mg/Tab Tab) 0.4 mg SL UD PRN PRN Reason: Chest Pain Stop: 03/20/25 23:11 Ondansetron HCl (Ondansetron Inj 2 Mg/Ml 2 Ml Vial) 4 mg IV Q6H PRN PRN Reason: Nausea Stop: 03/20/25 23:11 Pantoprazole Sodium (Pantoprazole 40 Mg Tab) 40 mg PO BID [facility] Stop: 03/21/25 08:59 Last Admin: 02/20/25 08:29 Dose: 40 mg Polyethylene Glycol (Polyethylene (Miralax) 17 Gm Pack) 17 gm PO DAILY PRN PRN Reason: Constipation Stop: 03/20/25 23:11 Ranolazine (Ranolazine 500 Mg Er Tab) 500 mg PO BID [facility] Stop: 03/21/25 08:59 Last Admin: 02/20/25 08:29 Dose: 500 mg Sacubitril/Valsartan (Valsartan/Sacubitril 26/24mg Tab) 0.5 tab PO BID [facility] Stop: 03/21/25 08:59 Last Admin: 02/20/25 08:29 Dose: 0.5 tab Sertraline HCl (Sertraline Hcl 100 Mg Tablet) 200 mg PO QDD [facility] Stop: 03/21/25 16:29 Last Admin: 02/19/25 16:50 Dose: 200 mg Terazosin HCl (Terazosin Hcl 1 Mg Cap) 2 mg PO HS [facility] Stop: 03/21/25 20:59 Last Admin: 02/19/25 19:45 Dose: 2 mg PG Care Time/CCT Total # of Minutes Spent Total Time Spent with Patient: Total time spent is greater than 50% in coordination of care (as documented) at patient's floor/unit and/or counseling patient: Coding Level of Care Code 60872 SUB INP/OBS CARE 3/50MIN Diagnoses DVT (deep venous thrombosis) I82.402 Affected thrombotic vein of extremity: unspecified vein of extremity Chronicity: acute DVT location: lower extremity Laterality: left Chest pain R07.9 Chest pain type: unspecified NSTEMI (non-ST elevated myocardial infarction) I21.4 History of coronary artery disease Z86.79 LBBB (left bundle branch block) I44.7 Pulmonary embolus I26.99 (1) DVT (deep venous thrombosis) Affected thrombotic vein of extremity: unspecified vein of extremity Chronicity: acute DVT location: lower extremity Laterality: left Qualified Code(s): I82.402 - Acute embolism and thrombosis of unspecified deep veins of left lower extremity (2) Chest pain Chest pain type: unspecified Qualified Code(s): R07.9 - Chest pain, unspecified
--- NOTE | 2025-02-20 15:06 | Hospitalist Progress Note ---
Date of Service February 20, 2025 Assessment & Plan (1) Pulmonary embolus: (2) Cor pulmonale, acute: (3) DVT (deep venous thrombosis): (4) CAD (coronary artery disease), galena coronary artery: Plan This patient is a 74-year-old male PMHx CAD s/p CABG at age 44 and PRESTON after STEMI, ischemic CM/HFrEF, EtOH abuse (3-4 drinks per day), history of TIA previously on Coumadin, history colon cancer, HTN, HLD, GERD, depression/anxiety, BPH who/W R sided chest pain as well as LLE swelling after recent acute illness with a viral infection which caused malaise fatigue cough and was bedbound x 4 days. He was found to have LLE acute DVT, elevated troponin and BNP, and multiple bilateral PEs with large clot burden with right heart strain #LLE DVT/bilateral pulmonary emboli/acute cor pulmonale-venous doppler LLE (+) DVT - nonocclusive thrombus left common femoral, occlusive thrombus proximal left profunda and common femoral veins. CT angiogram chest shows multiple bilateral PEs with large clot burden and right heart strain. Echo with moderate RV dilation, RV mid free wall severely hypokinetic to akinetic and RV apex with hypokinesis with moderate RV dysfunction, EF 45-50%, dilated IVC. DVT/PE likely provoked by recent acute illness causing him to be very sedentary for 4 days. He does have underlying history of colon cancer but had colonoscopy about 1 year ago which was negative as per patient. He also has a history in the 1980s of multiple TIAs and had previously been on Coumadin for 10 to 15 years but is no longer on anticoagulation. Unclear if had hypercoagulable workup at that time. His PESI score is considered high risk however he is not hypotensive, hypoxic or tachycardic therefore he is more intermediate risk/likely to have submassive PE and would recommend anticoagulation only as opposed to intervention unless he became hemodynamically unstable. I did discuss his care with tertiary care center at [facility] who reviewed with IR and decision made not to transfer for catheter-based thrombectomy as it had been 24 hours since symptoms started and he was hemodynamically stable. Symptoms now improving and he remains stable - Continue heparin drip with plan to convert to Eliquis loading dose on 02/21- will daniels check Eliquis-will need at least 3 to 6 months of anticoagulation - Follow CBC, CMP, anti-Xa levels - Monitor for bleeding and monitor for worsening right-sided heart failure # Elevated troponin secondary to PE/severe CAD/Ischemic cardiomyopathy/HFrEF/history of TIA- Prior STEMI 01/2024, s/p CABG x 3 VICTORIA to LAD, TERRY to distal RCA, SVG to OM1, SVG to OM2 in his 40s. On plavix + ASA; on metoprolol, isosorbide, ranolazine, entresto, furosemide prn. He is also on Praluent for his hyperlipidemia as he cannot tolerate statins or Repatha. Troponin elevated on arrival and peaked at 303. ECG with left bundle branch block which is intermittent for him and not new. Lipid panel controlled. Blood pressures are normal. Appreciate cardiology consultation. Echo here now with wall motion abnormalities and EF 45-50% similar to previous but now with moderately reduced RV function and evidence of right-sided heart strain from PE. - Okay to continue metoprolol + isosorbide - Continue Plavix + ASA for now but will need to discontinue aspirin once on oral anticoagulation as per cardiology - Follow on telemetry for arrhythmia - Continue supplemental O2 at bedtime which she is on at home #Elevated LFTs/history of alcohol use disorder-he drinks 3-4 drinks every day but no history of alcohol withdrawal when he has quit drinking for 6 months at a time in the past. He has mildly low platelets and elevated bilirubin as well as AST and ALT. Checked a CK which was normal. LFTs are improving today and platelets remain stable in the 90s. Previous imaging of the liver with CT A/P in 2022 showed mild splenomegaly as well as hepatic steatosis. - Encouraged cessation of EtOH-he is committed to doing so - Follow LFTs - Follow CBC and if platelets drop below 50, would need to hold anticoagulation and antiplatelets-recommend following CBC once monthly while on anticoagulation as an outpatient #GERD-no acute issues - Famotidine, pantoprazole - continue # Depression/anxiety- Sertraline - continue #BPH-no acute issues - Terazosin - continue #Gout-no acute issues - Continue allopurinol DVT prophylaxis-heparin drip Disposition-continued stay on PCU, improving, will need a two-step walk test prior to discharge Admission and Anticipated Discharge Date Admission Date: February 18, 2025 Subjective Feeling better today, had a twinge of chest pain this morning that has gone away. Still pretty dyspneic with exertion. No pain with deep inspiration. No cough, Not moving bowels here. Tele with SR, 1st degree AVB, intermittent BBB, rates 60-70s Physical Exam Constitutional: WD/WN, vitals as above Respiratory: normal respiratory effort, lungs clear to auscultation Cardiovascular: RRR, no murmur, no edema Gastrointestinal (Abdomen): normal bowel sounds, soft, nontender, no hepatosplenomegaly Psychiatric: A+Ox3, euthymic affect Results & Data Results & Data Vital Signs (Past 12 Hours) Vital Signs Temp Pulse Pulse Resp BP Pulse Ox O2 Del Method 02/20/25 11:36 36.8 C 59 L 20 127/82 95 Room Air 02/20/25 07:48 36.6 C 61 16 132/83 95 Room Air 02/20/25 07:43 55 L 02/20/25 03:36 36.5 C 67 16 135/84 94 Room Air Laboratory Results CBC, Anti Xa, CMP reviewed PG Care Time/CCT Total # of Minutes Spent Total Time Spent with Patient: Total time spent is greater than 50% in coordination of care (as documented) at patient's floor/unit and/or counseling patient: Coding Level of Care Code 75917 SUB INP/OBS CARE 3/50MIN Diagnoses Pulmonary embolus I26.99 Cor pulmonale, acute I26.09 DVT (deep venous thrombosis) I82.402 Affected thrombotic vein of extremity: unspecified vein of extremity Chronicity: acute DVT location: lower extremity Laterality: left CAD (coronary artery disease), galena coronary artery I25.10 (3) DVT (deep venous thrombosis) Affected thrombotic vein of extremity: unspecified vein of extremity Chronicity: acute DVT location: lower extremity Laterality: left Qualified Code(s): I82.402 - Acute embolism and thrombosis of unspecified deep veins of left lower extremity
[2025-02-20] MEDS: DOCUSATE SODIUM 100 MG CAP PO SCH (20:25)
[2025-02-21 05:49] LABS: Hematocrit (blood only) 36.4 % (42.0-52.0); Hemoglobin 12.0 g/dl (14.0-18.0); Immature Granulocytes # (auto) 0.01 K/uL (0.01-0.20); Immature Granulocytes % (auto) 0.2 %; Mean Corpuscular Hemoglobin 32.2 pg (25.0-34.0); Mean Corpuscular Volume 97.6 fL (80.0-100.0); Platelet Count 92 K/uL (130-400); RDW Standard Deviation 52.0 fL (36.4-46.3); Red Blood Count 3.73 M/uL (4.70-6.10); White Blood Count 4.71 K/ul (4.8-10.8)
[2025-02-21 06:04] LABS: Alanine Aminotransferase 39.0 U/L (7-52); Albumin Globulin Ratio 1.7 (0.9-2); Alkaline Phosphatase 33.0 U/L (34-104); Anion Gap 3.0 (3-11); Bilirubin,Total 0.5 mg/dl (0.2-1.0); Blood Urea Nitrogen 23.0 mg/dl (6-23); Calcium 8.5 mg/dl (8.6-10.3); Carbon Dioxide 33.0 mmol/L (21-32); Chloride 105.0 mmol/L (98-107); Creatinine Clr Calc Pharmacy 48.0 ml/min; Globulin 2.2 gm/dl (2.5-4.0); Glucose 98.0 mg/dl (70-99(Fasting)); Magnesium 2.5 mg/dl (1.7-2.4); Potassium 5.2 mmol/L (3.5-5.1); Sodium 141.0 mmol/L (136-145); Total Protein 6.0 gm/dl (6.0-8.3)
[2025-02-21 06:09] LABS: ANTI-Xa, UFH(UnfractionatedHep 0.38 IU/ml (0.3-0.7)
--- NOTE | 2025-02-21 11:48 | Hospitalist Progress Note ---
Date of Service February 21, 2025 Assessment & Plan (1) Pulmonary embolus: (2) Cor pulmonale, acute: (3) DVT (deep venous thrombosis): (4) CAD (coronary artery disease), koi coronary artery: Plan This patient is a 74-year-old male PMHx CAD s/p CABG at age 44 and PRESTON after STEMI, ischemic CM/HFrEF, EtOH abuse (3-4 drinks per day), history of recurrent TIA previously on Coumadin, history colon cancer, HTN, HLD, GERD, depression/anxiety, BPH who/W R sided chest pain as well as LLE swelling after recent acute illness with a viral infection which caused malaise fatigue cough and was bedbound x 4 days. He was found to have LLE acute DVT, elevated troponin and BNP, and multiple bilateral PEs with large clot burden with right heart strain #LLE DVT/bilateral pulmonary emboli/acute cor pulmonale-venous doppler LLE (+) DVT - nonocclusive thrombus left common femoral, occlusive thrombus proximal left profunda and common femoral veins. CT angiogram chest shows multiple bilateral PEs with large clot burden and right heart strain. Echo with moderate RV dilation, RV mid free wall severely hypokinetic to akinetic and RV apex with hypokinesis with moderate RV dysfunction, EF 45-50%, dilated IVC. DVT/PE likely provoked by recent acute illness causing him to be very sedentary for 4 days. He does have underlying history of colon cancer but had colonoscopy about 1 year ago which was negative as per patient. He also has a history in the 1980s of multiple TIAs and had previously been on Coumadin for 10 to 15 years but is no longer on anticoagulation. Unclear if had hypercoagulable workup at that time. His PESI score is considered high risk however he is not hypotensive, hypoxic or tachycardic therefore he is more intermediate risk/likely to have submassive PE and would recommend anticoagulation only as opposed to intervention unless he became hemodynamically unstable. I did discuss his care with tertiary care center at [facility] who reviewed with IR and decision made not to transfer for catheter-based thrombectomy as it had been 24 hours since symptoms started and he was hemodynamically stable. Symptoms now improving and he remains hemodynamically stable - Continue heparin drip with plan to convert to Eliquis loading dose on evening of 02/21-will need at least 3 to 6 months of anticoagulation, but would consider lifelong anticoagulation given remote history of multiple TIAs/possible hypercoagulable state? - Follow CBC, CMP in the a.m. - Monitor for bleeding and monitor for worsening right-sided heart failure - Will check pulse ox with ambulation to see if needs supplemental O2 #Renal insufficiency/hyperkalemia-creatinine with mild increased to 1.4 and potassium increased to 5.2-possibly due to borderline low BP/orthostasis and Entresto use - Encouraged p.o. intake - Hold Entresto - Check BMP again at 1700 and again in the morning # Elevated troponin secondary to PE/severe CAD/Ischemic cardiomyopathy/HFrEF/history of TIA- Prior STEMI 01/2024, s/p CABG x 3 VICTORIA to LAD, TERRY to distal RCA, SVG to OM1, SVG to OM2 in his 40s. On plavix + ASA; on metoprolol, isosorbide, ranolazine, entresto, furosemide prn. He is also on Praluent for his hyperlipidemia as he cannot tolerate statins or Repatha. Troponin elevated on arrival and peaked at 303. ECG with left bundle branch block which is intermittent for him and not new. Lipid panel controlled. Blood pressures are normal but he is borderline orthostatic on 02/21 feeling slightly lightheaded. Appreciate cardiology consultation. Echo here now with wall motion abnormalities and EF 45-50% similar to previous but now with moderately reduced RV function and evidence of right-sided heart strain from PE. - Okay to continue metoprolol + isosorbide, but will hold Entresto due to mild increase in creatinine, hyperkalemia, and orthostasis - Continue Plavix but now discontinue aspirin now that he is starting oral anticoagulation as per cardiology -Continue to follow on telemetry for arrhythmia - Continue supplemental O2 at bedtime which she is on at home and check 2 step walk test prior to discharge #Elevated LFTs/history of alcohol use disorder-he drinks 3-4 drinks every day but no history of alcohol withdrawal when he has quit drinking for 6 months at a time in the past. He has mildly low platelets and elevated bilirubin as well as AST and ALT. Checked a CK which was normal. LFTs are improving today and platelets remain stable in the 90s. Previous imaging of the liver with CT A/P in 2023 showed mild splenomegaly as well as hepatic steatosis. - Encouraged cessation of EtOH-he is committed to doing so - Follow LFTs - Follow CBC and if platelets drop below 50, would need to hold anticoagulation and antiplatelets-recommend following CBC once monthly while on anticoagulation as an outpatient #GERD-no acute issues - Famotidine, pantoprazole - continue # Depression/anxiety- Sertraline - continue #BPH-no acute issues - Terazosin - continue but if continues to be orthostatic, would hold this #Gout-no acute issues - Continue allopurinol DVT prophylaxis-heparin drip converting to Eliquis Disposition-continued stay on PCU, improving, will need a two-step walk test prior to discharge possibly on 02/22 Admission and Anticipated Discharge Date Admission Date: February 18, 2025 Subjective Patient reports feeling a little bit lightheaded with standing today and still with some dyspnea on exertion. He has not ambulated further than to the [facility] and back. No chest pain but feels a little bit of burning like he ate cold ice cream sensation in his chest. He is eating and drinking, moved his bowels, no blood in stool or anywhere. Telemetry with sinus rhythm and first-degree AV block, sinus bradycardia, PVCs and rates in the 60s to 90s. Physical Exam Constitutional: WD/WN, vitals as above Respiratory: normal respiratory effort, lungs clear to auscultation Cardiovascular: RRR, no murmur, no edema Gastrointestinal (Abdomen): normal bowel sounds, soft, nontender, no hepatosplenomegaly Psychiatric: A+Ox3, euthymic affect Results & Data Results & Data Vital Signs (Past 12 Hours) Vital Signs Temp Pulse Pulse Resp BP Pulse Ox O2 Del Method 02/21/25 08:22 70 02/21/25 08:08 37.5 C 55 L 17 111/76 94 Room Air 02/21/25 07:58 62 02/21/25 02:42 36.6 C 61 19 121/73 96 Room Air Laboratory Results CBC, BMP, anti-Xa, magnesium, LFTs reviewed PG Care Time/CCT Total # of Minutes Spent Total Time Spent with Patient: Total time spent is greater than 50% in coordination of care (as documented) at patient's floor/unit and/or counseling patient: Coding Level of Care Code 63065 SUB INP/OBS CARE 3/50MIN Diagnoses Pulmonary embolus I26.99 Cor pulmonale, acute I26.09 DVT (deep venous thrombosis) I82.402 Affected thrombotic vein of extremity: unspecified vein of extremity Chronicity: acute DVT location: lower extremity Laterality: left CAD (coronary artery disease), koi coronary artery I25.10 (3) DVT (deep venous thrombosis) Affected thrombotic vein of extremity: unspecified vein of extremity Chronicity: acute DVT location: lower extremity Laterality: left Qualified Code(s): I82.402 - Acute embolism and thrombosis of unspecified deep veins of left lower extremity
[2025-02-21 18:06] LABS: Anion Gap 7.0 (3-11); Blood Urea Nitrogen 25.0 mg/dl (6-23); Calcium 8.4 mg/dl (8.6-10.3); Carbon Dioxide 28.0 mmol/L (21-32); Chloride 104.0 mmol/L (98-107); Creatinine Clr Calc Pharmacy 46.8 ml/min; Glucose 170.0 mg/dl (70-99(Fasting)); Potassium 4.9 mmol/L (3.5-5.1); Sodium 139.0 mmol/L (136-145)
[2025-02-21] MEDS: APIXABAN 5 MG TABLET PO SCH (19:48)
[2025-02-21] MEDS: SODIUM CHLORIDE 0.9% 500 ML IV SCH (19:51)
[2025-02-22 07:01] LABS: Hematocrit (blood only) 36.1 % (42.0-52.0); Hemoglobin 12.2 g/dl (14.0-18.0); Immature Granulocytes # (auto) 0.01 K/uL (0.01-0.20); Immature Granulocytes % (auto) 0.3 %; Mean Corpuscular Hemoglobin 32.7 pg (25.0-34.0); Mean Corpuscular Volume 96.8 fL (80.0-100.0); Platelet Count 88 K/uL (130-400); RDW Standard Deviation 50.5 fL (36.4-46.3); Red Blood Count 3.73 M/uL (4.70-6.10); White Blood Count 3.79 K/ul (4.8-10.8)
[2025-02-22 07:27] LABS: Alanine Aminotransferase 31.0 U/L (7-52); Albumin Globulin Ratio 1.6 (0.9-2); Alkaline Phosphatase 35.0 U/L (34-104); Anion Gap 4.0 (3-11); Bilirubin,Total 0.5 mg/dl (0.2-1.0); Blood Urea Nitrogen 24.0 mg/dl (6-23); Calcium 8.6 mg/dl (8.6-10.3); Carbon Dioxide 31.0 mmol/L (21-32); Chloride 106.0 mmol/L (98-107); Creatinine Clr Calc Pharmacy 47.5 ml/min; Globulin 2.3 gm/dl (2.5-4.0); Glucose 104.0 mg/dl (70-99(Fasting)); Magnesium 2.5 mg/dl (1.7-2.4); Potassium 4.8 mmol/L (3.5-5.1); Sodium 141.0 mmol/L (136-145); Total Protein 6.0 gm/dl (6.0-8.3)
[2025-02-22 07:57] VITALS: TEMP 97.5
[2025-02-22 11:34] VITALS: BP 126/81; RESP 18; O2SAT 98
--- NOTE | 2025-02-22 11:39 | Discharge Summary ---
Discharge Summary Date of Service February 22, 2025 Principal Dx & Hospital Course #1 = Principal Diagnosis (1) Pulmonary embolus: (2) Cor pulmonale, acute: (3) DVT (deep venous thrombosis): (4) CAD (coronary artery disease), [place] coronary artery: Plan This patient is a 74-year-old male PMHx CAD s/p CABG at age 44 and [place] after STEMI, ischemic CM/HFrEF, EtOH abuse (3-4 drinks per day), history of recurrent TIA previously on Coumadin, history colon cancer, HTN, HLD, GERD, depression/anxiety, BPH who/W R sided chest pain as well as LLE swelling after recent acute illness with a viral infection which caused malaise fatigue cough and was bedbound x 4 days. He was found to have LLE acute DVT, elevated troponin and BNP, and multiple bilateral PEs with large clot burden with right heart strain # Acute LLE DVT/bilateral pulmonary emboli/acute cor pulmonale-venous doppler LLE (+) DVT - nonocclusive thrombus left common femoral, occlusive thrombus proximal left profunda and common femoral veins. CT angiogram chest shows multiple bilateral PEs with large clot burden and right heart strain. Echo with moderate RV dilation, RV mid free wall severely hypokinetic to akinetic and RV apex with hypokinesis with moderate RV dysfunction, EF 45-50%, dilated IVC. DVT/PE likely provoked by recent acute illness causing him to be very sedentary for 4 days. He does have underlying history of colon cancer but had colonoscopy about 1 year ago which was negative as per patient. He also has a history in the 1980s of multiple TIAs and had previously been on Coumadin for 10 to 15 years but is no longer on anticoagulation. Unclear if had hypercoagulable workup at that time. His PESI score is considered high risk however he was never hypotensive, hypoxic or tachycardic therefore he is more intermediate risk/likely to have submassive PE and would recommend anticoagulation only as opposed to intervention unless he became hemodynamically unstable. I did discuss his care with tertiary care center at [facility] who reviewed with IR and decision made not to transfer for catheter-based thrombectomy as it had been 24 hours since symptoms started and he was hemodynamically stable. Symptoms now improving and he remains hemodynamically stable. He does still have some pleuritic chest pain with deep inspiration. He passed a two-step walk test with normal pulse ox with ambulation. - He received a therapeutic heparin drip for 3 days and then converted to Eliquis loading dose on evening of 02/21-will need at least 6 months of anticoagulation, but would consider lifelong anticoagulation given remote history of multiple TIAs/possible hypercoagulable state? - Follow CBC, CMP as an outpatient in 1 week - Monitor for bleeding and monitor for worsening right-sided heart failure -Follow-up with cardiology as an outpatient for repeat echo given significant right heart strain #Renal insufficiency/hyperkalemia-creatinine with mild increased to 1.53 and potassium increased to 5.2-possibly due to borderline low BP/orthostasis and Entresto use. Entresto was held and orthostatics on repeat were improved and he was no longer lightheaded. Creatinine improved down to 1.51 and potassium normalized -Continue to hold Entresto on discharge and repeat BMP in 1 week-can resume at that time if blood pressure stable and renal function improved # Elevated troponin secondary to PE/severe CAD/Ischemic cardiomyopathy/HFrEF/history of TIA- Prior STEMI 01/2024, s/p CABG x 3 VICTORIA to LAD, TERRY to distal RCA, SVG to OM1, SVG to OM2 in his 40s. On plavix + ASA; on metoprolol, isosorbide, ranolazine, entresto, furosemide prn. He is also on Praluent for his hyperlipidemia as he cannot tolerate statins or Repatha. Troponin elevated on arrival and peaked at 303. ECG with left bundle branch block which is intermittent for him and not new. Lipid panel controlled. Blood pressures are normal but he is borderline orthostatic on 02/21 feeling slightly lightheaded. Appreciate cardiology consultation. Echo here now with wall motion abnormalities and EF 45-50% similar to previous but now with moderately reduced RV function and evidence of right-sided heart strain from PE. - Okay to continue metoprolol + isosorbide, but will continue to hold Entresto due to mild increase in creatinine, hyperkalemia, and orthostasis - Continue Plavix but now discontinued aspirin now that he is starting oral anticoagulation as per cardiology - Continue supplemental O2 at bedtime which she is on at home but he was tested and does not need oxygen supplementally with exertion - Follow-up with cardiology as an outpatient #Elevated LFTs/history of alcohol use disorder-he drinks 3-4 drinks every day but no history of alcohol withdrawal when he has quit drinking for 6 months at a time in the past. He has mildly low platelets and elevated bilirubin as well as AST and ALT. Checked a CK which was normal. LFTs are now normalized and platelets remain stable in the 80s-90s. Previous imaging of the liver with CT A/P in 2022 showed mild splenomegaly as well as hepatic steatosis. - Encouraged cessation of EtOH-he is committed to doing so - Follow LFTs as an outpatient - Follow CBC and if platelets drop below 50, would need to hold anticoagulation and antiplatelets-recommend following CBC once monthly while on anticoagulation as an outpatient #GERD-no acute issues - Famotidine, pantoprazole - continue # Depression/anxiety- Sertraline - continue #BPH-no acute issues - Terazosin -continue #Gout-no acute issues - Continue allopurinol DVT prophylaxis-heparin drip converting to Eliquis Disposition-stable for discharge to home Notes For Next Care Provider Check CBC and CMP in 1 week Medication Changes From Visit See list Admission HPI Per Admitting Provider 74-year-old male PMHx STEMI, EtOH abuse, history of TIA, history colon cancer, CAD, HTN, dyslipidemia presenting for R sided chest discomfort as well as LLE swelling. Patient states on the day of arrival, his knee started to become bothersome to him. He occasionally does have left knee problems and states that he will put a copper band/sleeve over the knee to try to alleviate some of the discomfort. He had done this and then later in the day he noted that his LLE was significantly more swollen than RLE. He was having a little tightness in his left calf at that time. Additionally, he is recovering from bronchitis in which he was treated with antibiotics for. Since that time, he felt as though he was having some more acid reflux and some "feelings of a tear or cut in my chest." He states that this occurred briefly on the day of arrival, but not necessarily described as pain. He is having no chest discomfort at this time. Admits to feeling off balance with walking that started really today, but no falls. With exertion he does become dyspneic. His daughter reports that at 1400 he began to have some lightheadedness with walking. In between the time of [id number] he took a Lasix and 2 nitroglycerin to try to alleviate some of his symptoms. He denies palpitations, abdominal pain, N/V/D/C, numbness/tingling, fever/chills, LUTS, URI symptoms, weakness, or syncope. Again, no present chest pain. Occasionally has some tenderness when he is pushing over his chest. His cough has been but has improved significantly since initial appearance. ED evaluation reveals CBC without leukocytosis, H&H 13.3/39.6; PT/INR WNL; CMP glucose 109, AST 64, ALT 68; 274.4, pending repeat; BNP 648; CXR no acute findings; left venous Doppler with DVT present; EKG sinus rhythm first-degree AV block, LBBB at 90 bpm.; Provided with aspirin 324 mg p.o., heparin IV, nitroglycerin paste in ED. Please see Dr. Alston's attestation for adjustments/additions to treatment plan. Discharge Exam Constitutional WD/WN, vitals as above Respiratory normal respiratory effort, lungs clear to auscultation Cardiovascular RRR, no murmur, no edema Gastrointestinal (Abdomen) normal bowel sounds, soft, nontender, no hepatosplenomegaly Psychiatric A+Ox3, euthymic affect Discharge Plan Discharge Items Patient Disposition: Home - Self-Care Reason For Visit: DVT, LLE, NSTEMI Discharge Diagnosis: Acute left lower extremity deep venous thrombosis and bilateral pulmonary emboli Acute cor pulmonale/right-sided heart failure Pancytopenia likely secondary to liver dysfunction Condition on Discharge: Fair Activity: As commented below Bathing: No limitations Exercise/Sports: Gradually increase as tolerated Non-emergency contact: Primary Care Provider and [employer]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 This may have been caused by your recent acute illness along with being sedentary for a few days while you are sick. There is a possibility also that you have a propensity to develop blood clots given your history of multiple TIAs in the past requiring Coumadin treatment. You have been started on a blood thinner pill called Eliquis to be taken twice a day every day. You will take 10 mg (2 tablets) twice a day for the next 6 days, and then decrease the dose to 5 mg (1 tablet) twice a day after that. Please talk to your primary care physician about the length of time you should remain on blood thinners-it should be at least 6 months, but you could consider remaining on it indefinitely due to your previous history of clots. You should stop taking aspirin but continue taking Plavix along with the Eliquis. Due to some mild kidney dysfunction and lower blood pressures with standing, your Entresto has been placed temporarily on hold. Please talk to your primary care physician and/or your crozer operator about when it is safe to resume this medication. You should have your kidney function checked in 1 week. As we discussed, it is important for you to not drink any more alcohol in the future as you do have evidence of liver dysfunction. This will also be safer now that you are on strong blood thinners. It was a pleasure taking care of you! Viktoria Rodriguez MD Pending Studies at Discharge: No Stand-Alone Forms: My [facility] Medications and DC Order Prescriptions: New Eliquis 5 mg tablet 10 mg PO BID Qty: 72 0RF Rx Instructions: x 6 days then take 5 mg po bid Continued sertraline 100 mg tablet 200 mg PO QDD Patient Comments: took 50 mg this morning terazosin 2 mg Capsule 2 mg PO HS clopidogrel [Plavix] 75 mg Tablet 75 mg PO QAM nitroglycerin [Nitrostat] 0.4 mg Tablet, Sublingual 0.4 mg Sublingual UD PRN (Reason: Chest Pain) Rx Instructions: ONE TABLET UNDER THE TONGUE EVERY 5 MINUTES UP TO 3 DOSES FOR CHEST PAIN. fluticasone propionate 50 mcg/actuation [place],Suspension 1 spray INTRANASAL DAILY PRN (Reason: Nasal Congestion) allopurinol 300 mg Tablet 300 mg PO QPM famotidine 20 mg tablet 20 mg PO BID pantoprazole 40 mg tablet,delayed release (DR/EC) 40 mg PO BID Praluent Pen 150 mg/mL Pen Injector 150 mg SUBCUT .[id number] Patient Comments: Due 12/17 Rx Instructions: LAST TAKEN 02/15/25Thursdays allopurinol 300 mg tablet 150 mg PO QAM Formulas Testosterone Cap 1 tab PO DAILY furosemide 20 mg tablet 20 mg PO DAILY PRN (Reason: Edema) isosorbide dinitrate 20 mg Tablet 20 mg PO BID17 Qty: 60 0RF magnesium oxide 500 mg magnesium Tablet 500 mg PO DAILY coenzyme Q10 [CoQ-10] 100 mg Capsule 200 mg PO DAILY ranolazine 500 mg tablet extended release 12 hr 500 mg PO BID metoprolol succinate 25 mg tablet extended release 24 hr 25 mg PO QAM Held Entresto 24-26 mg Tablet 0.5 tab PO BID Hold Instructions: Resume on 03/01/25. Hold until your doctor rechecks your kidney function and tells you it is okay to resume this medication Discontinued benzonatate 100 mg capsule 100 mg PO TID PRN (Reason: Cough) aspirin 81 mg Tablet,Chewable 81 mg PO DAILY Discharge Orders: Discharge Order (Routine); Ordered 02/22/25 Ordered By: Viktoria Rodriguez Admission Data Admit Date/Time: 02/18/25 21:54 Attending Provider: Viktoria Rodriguez Admit Provider: Amarilys Alston Primary Care Provider: Miguel Suarez Other Providers: Amarilys Alston; Herbie Collins; [facility] Hospital Stay Data Consultations 02/18/25 20:40 ED Decision to Admit Stat 02/18/25 23:12 Consult Cardiology Routine Diagnostic Imagining Performed 02/18/25 19:33 US venous doppler LE LT Stat 02/19/25 15:00 CT angio chest PE protocol Stat Echo Pending Results Patient Have Any Pending Studies at Discharge: No Discharge Instructions Given to Patient (Per Discharging Provider) You were admitted with blood clots in your leg and lungs. This may have been caused by your recent acute illness along with being sedentary for a few days while you are sick. There is a possibility also that you have a propensity to develop blood clots given your history of multiple TIAs in the past requiring Coumadin treatment. You have been started on a blood thinner pill called Eliquis to be taken twice a day every day. You will take 10 mg (2 tablets) twice a day for the next 6 days, and then decrease the dose to 5 mg (1 tablet) twice a day after that. Please talk to your primary care physician about the length of time you should remain on blood thinners-it should be at least 6 months, but you could consider remaining on it indefinitely due to your previous history of clots. You should stop taking aspirin but continue taking Plavix along with the Eliquis. Due to some mild kidney dysfunction and lower blood pressures with standing, your Entresto has been placed temporarily on hold. Please talk to your primary care physician and/or your crozer operator about when it is safe to resume this medication. You should have your kidney function checked in 1 week. As we discussed, it is important for you to not drink any more alcohol in the future as you do have evidence of liver dysfunction. This will also be safer now that you are on strong blood thinners. It was a pleasure taking care of you! Viktoria Rodriguez MD Total Time Total Time Spent Total Time Spent (In Minutes): 40 minutes Total Time Includes: Examination of the Patient, Discharge Planning and Medication Reconciliation Coding Level of Care Code 42797 INP/OBS DISCH >30 MIN Diagnoses Pulmonary embolus I26.99 Cor pulmonale, acute I26.09 DVT (deep venous thrombosis) I82.402 Affected thrombotic vein of extremity: unspecified vein of extremity Chronicity: acute DVT location: lower extremity Laterality: left CAD (coronary artery disease), [place] coronary artery I25.10
[2025-02-22 11:47] VITALS: PULSE 69
== END 2025-02-22 13:05 | disposition home or self-care (01) | DRG 299 ==
LOC: ED 19:16 → 2S 21:54 → SUATTDRO 21:54 → 2S 22:47